=== PATIENT | female | born 1940 | race Caucasian/White ===

== ENCOUNTER 2017-07-03 13:00 | Outpatient (RCR) | payer MEDICARE, SELFPAY ==
[2017-06-12 16:20] VITALS: BP 160/92; PULSE 90; RESP 18; TEMP 36.6; BMI 22.4
--- NOTE | 2017-06-12 17:34 | PCM.WC.HP ---
(1) Cellulitis of left lower extremity Status: Acute Current Visit: Yes Code(s): L03.116 - Cellulitis of left lower limb (2) Nonhealing ulcer of left lower extremity with fat layer exposed Status: Acute Current Visit: Yes Code(s): L97.922 - Non-pressure chronic ulcer of unspecified part of left lower leg with fat layer exposed (3) Lymphedema Status: Acute Current Visit: Yes Code(s): I89.0 - Lymphedema, not elsewhere classified (4) Hypertension Status: Chronic Current Visit: Yes Code(s): I10 - Essential (primary) hypertension (5) PVD (peripheral vascular disease) Status: Chronic Current Visit: Yes Code(s): I73.9 - Peripheral vascular disease, unspecified History of Present Illness Date of Service: 06/12/17 Chief Complaint: Nonhealing ulcer left lower extremity. History of Wound: This is a 77-year-old white female who presents to the wound center today for an evaluation of an ulcer of the left lower extremity. She has a past medical history which is significant for hypertension vertigo and peripheral vascular disease. The patient states that her symptom of lower extremity ulceration on the left extremity started approximately 05/15/2017 and has been progressively worsening since then. She states that she saw her PCP who placed her in an LAVELL boot, which she no longer uses. She states that there has been foul-smelling and purulent drainage from the ulceration and that the site is red and tender. She denies being placed on any antibiotics. The pain is a 10 out of 10 with manipulation of the lower extremity. She does state that she has compression stockings for the bilateral lower extremities, however due to the pain has not been utilizing on the left lower extremity. She denies any obvious injury. She denies any systemic signs of infection. She otherwise denies any fever, chills, nausea, vomiting, shortness of breath, chest pain or pressure, syncope or presyncopal episodes. Past Medical History Past Medical History: Chronic Problems Hypertension (Chronic) PVD (peripheral vascular disease) (Chronic) Surgical History: no surgical history Allergies/Adverse Reactions: Allergies aspirin [ASA] Adverse Reaction (Verified 06/12/17 16:23) Itching latex Adverse Reaction (Verified 06/12/17 16:23) Itching Home Medications: Ambulatory Orders Medication Instructions Recorded Hydrochlorothiazide [Hctz] 12.5 mg PO DAILY 06/12/17 Meclizine HCl 25 mg PO 06/12/17 Metoprolol Succinate/Hctz 06/12/17 [Metoprolol ER-Hctz 25-12.5 mg] Lives: Alone - Family able to help assist with care Smoking Status: Never smoker Review of Systems Constitutional: Denies: Chills, Fever, Weight Change Eyes: Denies: Pain, Vision Change HEENT: Denies: Difficulty Hearing, Difficulty Swallowing, Sinus Congestion Cardiovascular: Denies: Chest Pain, Palpitations Respiratory: Denies: Cough, Shortness of Breath Gastrointestinal: Denies: Diarrhea, Nausea, Vomiting Genitourinary: Denies: Dysuria, Hematuria Skin: Reports: Wounds - See above HPI Endocrine: Denies: Heat/ Cold Intolerance, Polydipsia, Polyuria Hematologic/ Lymphatic: Denies: Easy Bruising, Easy Bleeding Subjective: Subjective pain left lower extremity Objective: Patient examined at bedside in no acute distress - Physical Exam Vital Signs Temp Pulse Resp BP 97.8 F 90 18 160/92 H 06/12/17 16:20 06/12/17 16:20 06/12/17 16:20 06/12/17 16:20 General: Alert, Oriented x3, Cooperative, No apparent distress HEENT: PERRLA, EOMI Oral: Moist Mucosa Neck: Supple, No JVD, Negative Carotid Bruits Lungs: Clear to auscultation Cardiovascular: Regular rate, Regular Rhythm, Normal S1, Normal S2, No murmurs Extremities: Capillary Refill Less than 3 Seconds, Edema - 1+ nonpitting edema left lower extremity, generalized edema right lower extremity, palpable pulses bilaterally though diminished extravasation and hemosiderin staining present bilaterally Skin: Ulcer/ Wound - Nonpressure ulcer of left lower extremity present lateral lower leg with purulent drainage and eschar present. Site is warm and reddened and tender to touch, redness outlined in permanent marker, foul-smelling Wound Measurements and Assessment - Nurse 1 - General Ulcer Measurement Start: 06/12/17 13:51 Freq: Status: Active Protocol: Activity Type Activity Date Activity User E-Sign Co-Sign Detail Recorded Client Recorded Date Recorded By Document 06/12/17 16:20 TM [id number] 06/12/17 16:45 TM 06/12/17 16:20 Wound Center Nurse 1 [Ulcer Assessment Protocol: WC.WD.LOC] #1 left lateral LE -Combined with other wound No -Current Size (cm) - Length 3.4 -Current Size (cm) - Width 2.1 -Current Size (cm) - Depth 0.2 -Total Square Cm 7.14 -Date of Last Picture (Recall this 06/12/17 field) -Photo Taken Yes -Epithelialization None Present -Tunneling No -Undermining/Tunneling No -Circular Undermining No -Classification - Thickness Full Thickness without Exposed Support Structure -Exudate Amt Large (67-100%) -Exudate Type Serosanguineous -Wound Margin Distinct, Outline Attached -Granulation Amt Small (1-33%) -Granulation Quality [place] -Slough/Fibrin Yes -Necrosis Amt Large (67-100%) -Necrotic Tissue Type Adherent Slough -Structure Exposed Fascia Fat Layer Exposed -Texture (Kajal-wound Skin Appearance) Friable Localized Edema Scarring -Moisture (Kajal-wound Skin Appearance No Abnormality ) -Color (Kajal-wound Skin Appearance) Erythema Hemosiderin Staining -Temperature (Kajal-wound Skin Hot Appearance) -Tenderness on Palpation (Kajal-wound Yes Skin Appearance) -Ulcer Cleansing cynthia hex -Foul Odor after Cleansing No -Anesthetic Used 5% Lidocaine Gel [Edema Assessment] -Lower Limb Edema Present Yes -Right Calf (cm) 30.0 -Right Ankle (cm) 20.5 -Left Calf (cm) 30.5 -Left Ankle (cm) 22.5 Musculoskeletal: No Tenderness to Palpation of Joints or Extremities Neurological: Cranial nerves II-XII grossly intact Psych/Mental Status: Normal Affect, Appropriate, Alert and oriented to time, place, person, mood and affect Debridement Note No debridement was completed today Assessment/Plan Active Problems Nonhealing ulcer of left lower extremity with fat layer exposed (Acute) Lymphedema (Acute) Hypertension (Chronic) PVD (peripheral vascular disease) (Chronic) Cellulitis of left lower extremity (Acute) Plan: The patient does have cellulitis with a nonhealing ulcer of the left lower extremity as described above. We will treat the patient with Bactrim DS to cover for potential MRSA, educated on its use and potential side effects. Blood work ordered and anaerobic and aerobic cultures ordered as well. Discussed with patient not to use compression on the left lower extremity. Educated patient on red flag symptoms of worsening cellulitis that would require urgent medical attention and potential inpatient hospitalization for antibiotics. Patient and family verbalized understanding of this. No debridement done today due to unknown vascular status. Will check vascular studies. Santyl and Hibiclens ordered daily for the patient and patient instructed on its use. Discussed with patient maximizing oral nutrition to promote wound healing which includes incorporating protein vitamin C into the diet. The patient and family as concerned about home health, will look into insurance coverage for home health. This note was generated with [employer] dictation software. It may contain incorrect words, spelling, and punctuation that were not noted in checking the note before signing.
[2017-06-12 19:40] LABS: Absolute Lymphocyte Count 0.93 X10^3/ul (0.83-4.51); Absolute Neutrophil Count 6.9 X10^3/uL (2.0-7.7); Basophil# 0.02 X10^3/uL; Basophil% 0.2 % (0-1); Eosinophil# 0.05 X10^3/uL; Eosinophils% 0.6 % (0-5); Hematocrit 41.5 % (37-47); Hemoglobin 13.8 g/dl (12.0-15.0); Lymphocyte # 0.93 X10^3/ul (4.0); Lymphocyte % 10.2 % (19-41); Mean Corp Hgb Conc 33.3 g/gl (32-36); Mean Corpuscular Hgb 28.9 pg (27.0-32.0); Mean Platelet Vol. 9.3 fl (6.2-12.0); Monocyte# 1.17 X10^3/uL; Monocyte% 12.9 % (0-10); Platelet Count 382 K/mm3 (150-450); RBC Distribution Width CV 12.7 % (11.6-14.6); RBC Distribution Width SD 39.6 fl (35.1-43.9); Red Blood Count 4.77 M/mm3 (4.2-5.4); White Blood Count 9.1 K/mm3 (4.4-11.0)
[2017-06-12 19:58] LABS: POSITIVE COUNT NO; POSITIVE DIFFERENTIAL NO; POSITIVE MORPHOLOGY NO
[2017-06-12 20:10] LABS: Erythrocyte Sedimentation Rate 19 mm/hr (0-30)
[2017-06-12 20:22] LABS: BUN 8 mg/dL (7-18); Glucose 98 mg/dL (70-110)
[2017-06-12 20:23] LABS: AST(SGOT) 21 U/L (15-37); Alanine Aminotransfer ALT/SGPT 22 U/L (12-78); Albumin, Serum 3.5 g/dL (3.4-5.0); Alkaline Phosphatase 97 U/L (45-117); Creatinine, Serum 0.56 mg/dL (0.55-1.02); Globulin 4.3 g/dL (2.2-4.2); Potassium 3.8 mmol/L (3.5-5.1); Protein, Total 7.8 g/dL (6.4-8.2); Sodium Level 133 mmol/L (136-145)
[2017-06-12 20:24] LABS: Anion Gap 7 (5-15); Chloride 96 mmol/L (98-107)
[2017-06-12 20:43] LABS: ALB/GLOB Ratio 0.8 RATIO (0.9-2.4); BUN/Creat Ratio 14.4 RATIO (10-20); EST Glomerular Filtration Rate 113 mL/min (>60); Est Glom Filt Rate - Afr Amer 137 mL/min (>60); Prealbumin 15.9 mg/dL (20.0-40.0)
[2017-06-19 12:51] VITALS: BP 149/86; PULSE 72; RESP 16; TEMP 35.9; BMI 22.4
--- NOTE | 2017-06-19 17:11 | PN.PCM_ITS ---
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 History of Wound: This is a 77-year-old white female who presents to the wound center today for follow-up of an ulcer of the left lower extremity and cellulitis. She has a past medical history which is significant for hypertension vertigo and peripheral vascular disease. The patient states that her symptom of lower extremity ulceration on the left extremity started approximately 05/15/2017 . She states that she saw her PCP who placed her in an LAVELL boot, which she no longer uses. She states that the smell has improved, the redness is resolving, and the pain is improving as well. She denies any systemic signs of infection. She otherwise denies any fever, chills, nausea, vomiting, shortness of breath, chest pain or pressure, syncope or presyncopal episodes. Progress of Wound: The patient's cellulitis is improving, stable, Santyl is working well in the eschar has resolved and now there is only devitalized tissue and slough present. Patient is still having a significant amount of pain , however this has improved since previous visit. - Physical Exam Vital Signs Temp Pulse Resp BP 96.6 F L 72 16 149/86 H 06/19/17 12:51 06/19/17 12:51 06/19/17 12:51 06/19/17 12:51 General: Alert, Oriented x3, Cooperative, No apparent distress Cardiovascular: Regular rate Extremities: No clubbing, No cyanosis, No edema, Capillary Refill Less than 3 Seconds Skin: Ulcer/ Wound - Erythema improving, wound still has a foul smell, eschar is resolved, significant amount of devitalized slough present, no purulent drainage. There is extravasation and hyperpigmentation noted surrounding the wound as well. Wound Measurements and Assessment - Nurse 1 - General Ulcer Measurement Start: 06/12/17 13:51 Freq: Status: Active Protocol: Activity Type Activity Date Activity User E-Sign Co-Sign Detail Recorded Client Recorded Date Recorded By Document 06/19/17 12:51 [facility] [id number] 06/19/17 13:00 BM 06/19/17 12:51 Wound Center Nurse 1 [Ulcer Assessment Protocol: JACK.WD.LOC] #1 left lateral LE -Combined with other wound No -Current Size (cm) - Length 4.6 -Current Size (cm) - Width 2.5 -Current Size (cm) - Depth 0.1 -Total Square Cm 11.50 -Photo Taken No -Epithelialization None Present -Tunneling No -Undermining/Tunneling No -Exudate Amt Medium (34-66%) -Exudate Type Serosanguineous -Wound Margin Distinct, Outline Attached -Granulation Amt Small (1-33%) -Granulation Quality Red -Slough/Fibrin Yes -Necrosis Amt Large (67-100%) -Necrotic Tissue Type Adherent Slough -Structure Exposed N/A -Texture (Kajal-wound Skin Appearance) Scarring -Moisture (Kajal-wound Skin Appearance Dry/Scaly ) -Color (Kajal-wound Skin Appearance) Erythema Hemosiderin Staining -Temperature (Kajal-wound Skin No Abnormality Appearance) (Pt Warm) -Tenderness on Palpation (Kajal-wound Yes Skin Appearance) -Ulcer Cleansing Rinsed/ Irrigated with Saline -Foul Odor after Cleansing No -Anesthetic Used 5% Lidocaine Gel [Edema Assessment] -Lower Limb Edema Present Yes -Left Calf (cm) 31.5 -Left Ankle (cm) 22.1 - Nurse 2 - General Ulcer CM Notes Start: 06/12/17 13:51 Freq: Status: Active Protocol: Activity Type Activity Date Activity User E-Sign Co-Sign Detail Recorded Client Recorded Date Recorded By Document 06/19/17 14:02 DV [id number] 06/19/17 14:09 DV 06/19/17 14:02 Wound Center Nurse 2 [Procedure/Treatment] #1 left lateral LE -Time 14:03 -Correct Patient Yes -Correct Side, Site, Position Yes -Correct Procedure Yes -Procedure Performed Yes -Type of Procedure Debridement -Clinical Debridement Subcutaneous -Post Debridement Size (cm) - Length 4.3 -Post Debridement Size (cm) - Width 2.4 -Post Debridement Size (cm) - Depth 0.2 -Total Square Cm 10.32 -Wound/Ulcer Outcome Not Healed -Ulcer Cleansing Rinsed/ Irrigated with Saline -Foul Odor after Cleansing No -Bioengineered Tissue No -Cetacaine [place] No -Bleeding Controlled with Pressure -Treatment Response Procedure Tolerated Well [See Physician Procedure note for Specifics] Pain Scale: 0-10 Numeric [Pain] -Is Patient Pain Free? Yes Musculoskeletal: No Tenderness to Palpation of Joints or Extremities Psych/Mental Status: Normal Affect, Appropriate, Alert and oriented to time, place, person, mood and affect Debridement Note Post-Debridement Measurements/Treatment WC - Nurse 2 - General Ulcer CM Notes Start: 06/12/17 13:51 Freq: Status: Active Protocol: Activity Type Activity Date Activity User E-Sign Co-Sign Detail Recorded Client Recorded Date Recorded By Document 06/12/17 17:52 DV [id number] 06/12/17 17:57 DV Document 06/19/17 14:02 DV [id number] 06/19/17 14:09 DV 06/12/17 06/19/17 17:52 14:02 Wound Center Nurse 2 #1 left lateral LE -Time 17:55 14:03 -Correct Patient Yes Yes -Correct Side, Site, Position Yes Yes -Correct Procedure Yes Yes -Procedure Performed No Yes -Type of Procedure Debridement -Clinical Debridement Subcutaneous -Post Debridement Size (cm) - Length 4.3 -Post Debridement Size (cm) - Width 2.4 -Post Debridement Size (cm) - Depth 0.2 -Total Square Cm 10.32 -Wound/Ulcer Outcome Not Healed Not Healed -Ulcer Cleansing Rinsed/ Rinsed/ Irrigated with Irrigated with Saline Saline -Foul Odor after Cleansing No No -Bioengineered Tissue No No -Cetacaine [place] No No -Bleeding Controlled with NA Pressure -Treatment Response Procedure Tolerated Well Pain Scale: 0-10 Numeric Is Patient Pain Free? No Yes Lateral LLE -Description Sharp Crushing -Intensity 10 -Duration (hours) Acute -Pain Behavior Moaning Irritability Facial Grimacing VS Changes -Pain Aggravating Factors ADL's Stair Climbing Changing Position Exercise/ Activity Standing Sitting Walking -Alleviating Factors/Interventions None -Effectiveness of Alleviating Factor/ Not effective Intervention -Comments Patient will be treated for infection with ATB and C. Santyl with debridement to follow next week Wound debrided: Left lower extremity ulcer Laterality: Left Type of Debridement: Excisional debridement Anesthesia Used: 4% Lidocaine Solution Depth: in the subcutaneous layer Percentage of wound debrided: 100 Instrument Used: 5mm curette Tissue Removed: Moderate amount of slough and fibrin and devitalized tissue removed, Severity: Fat Layer Exposed Amount of bleeding with debridement: Mild Bleeding Controlled with: Pressure Patient tolerated procedure well Assessment/Plan Active Problems Nonhealing ulcer of left lower extremity with fat layer exposed (Acute) Lymphedema (Acute) Hypertension (Chronic) PVD (peripheral vascular disease) (Chronic) Cellulitis of left lower extremity (Acute) Plan: I evaluated the patient and discussed the ongoing care plan. The patient does have cellulitis with a nonhealing ulcer of the left lower extremity as described above. A culture and sensitivity was done which showed staph and was susceptible to the Bactrim DS which she has completed. Anaerobic cocci was cultured as well, therefore the patient will be treated with Flagyl 3 times daily for 7 days. The patient's cellulitis is improving. However is not completely resolved. Wound was debrided today patient tolerated well. Start Flagyl, educated on its use and potential side effects. Blood work reviewed with patient, pre-albumin was low, discussed increasing her protein intake and drinking premier protein drinks 3 a day, may recheck in the future and if still low possible referral to nutrition therapy.. Discussed with patient not to use compression on the left lower extremity due to unknown vascular status and current infection. Educated patient on red flag symptoms of worsening cellulitis that would require urgent medical attention and potential inpatient hospitalization for antibiotics. Patient and family verbalized understanding of this. Pending vascular studies. Santyl and Hibiclens ordered daily for the patient and patient instructed on its use. Discussed with patient maximizing oral nutrition to promote wound healing which includes incorporating protein vitamin C into the diet. Due to the fact that the patient is not homebound, home health is unlikely for this patient. This note was generated with [employer] software. It may contain incorrect words, spelling, and punctuation that were not noted in checking the note before signing.
[2017-06-26 13:07] VITALS: BP 141/90; PULSE 81; RESP 18; TEMP 35.9; BMI 22.4
--- NOTE | 2017-06-26 14:13 | PCM.WC.PN ---
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 History of Wound: This is a 77-year-old white female who presents to the wound center today for follow-up of an ulcer of the left lower extremity and cellulitis. She has a past medical history which is significant for hypertension vertigo and peripheral vascular disease. The patient states that her symptom of lower extremity ulceration on the left extremity started approximately 05/15/2017 . She states that she saw her PCP who placed her in an LAVELL boot, which she no longer uses. She states that the smell has improved, the redness is resolving, and the pain is improving as well. She denies any systemic signs of infection. She otherwise denies any fever, chills, nausea, vomiting, shortness of breath, chest pain or pressure, syncope or presyncopal episodes. Progress of Wound: The patient's cellulitis is improving, stable, pain has improved since previous visit. Wound improving - Physical Exam Vital Signs Temp Pulse Resp BP 96.6 F L 81 18 141/90 H 06/26/17 13:07 06/26/17 13:07 06/26/17 13:07 06/26/17 13:07 General: Alert, Oriented x3, Cooperative, No apparent distress Cardiovascular: Regular rate Extremities: No clubbing, No cyanosis, Diminished Peripheral Pulses, Edema - gneralized LLE, Tenderness Skin: Ulcer/ Wound - Left lower extremity ulcer present with moderate amount of slough covering surface, surrounding cellulitis improving still some erythema and extravasation present surrounding the wound, surrounding tissue no longer tender to touch Wound Measurements and Assessment - Nurse 1 - General Ulcer Measurement Start: 06/12/17 13:51 Freq: Status: Active Protocol: Activity Type Activity Date Activity User E-Sign Co-Sign Detail Recorded Client Recorded Date Recorded By Document 06/26/17 13:07 [facility] [id number] 06/26/17 13:18 [facility] 06/26/17 13:07 Wound Center Nurse 1 [Ulcer Assessment Protocol: JACK.NICK.LOC] #1 left lateral LE -Combined with other wound No -Current Size (cm) - Length 4.8 -Current Size (cm) - Width 2.5 -Current Size (cm) - Depth 0.1 -Total Square Cm 12.00 -Photo Taken No -Tunneling No -Undermining/Tunneling No -Circular Undermining No -Exudate Amt Medium (34-66%) -Exudate Type Serosanguineous -Wound Margin Distinct, Outline Attached -Granulation Amt Small (1-33%) -Granulation Quality Red -Slough/Fibrin Yes -Necrosis Amt Large (67-100%) -Necrotic Tissue Type Adherent Slough -Structure Exposed None/Limited to Skin Breakdown -Texture (Kajal-wound Skin Appearance) Scarring -Moisture (Kajal-wound Skin Appearance Dry/Scaly ) -Color (Kajal-wound Skin Appearance) Hemosiderin Staining -Temperature (Kajal-wound Skin No Abnormality Appearance) (Pt Warm) -Tenderness on Palpation (Kajal-wound Yes Skin Appearance) -Ulcer Cleansing Rinsed/ Irrigated with Saline -Foul Odor after Cleansing No -Anesthetic Used 5% Lidocaine Gel JACK - Nurse 2 - General Ulcer CM Notes Start: 06/12/17 13:51 Freq: Status: Active Protocol: Activity Type Activity Date Activity User E-Sign Co-Sign Detail Recorded Client Recorded Date Recorded By Document 06/26/17 14:05 DV [id number] 06/26/17 14:09 DV 06/26/17 14:05 Wound Center Nurse 2 [Procedure/Treatment] -Time 14:07 -Correct Patient Yes -Correct Side, Site, Position Yes -Correct Procedure Yes -Procedure Performed Yes -Type of Procedure Debridement -Clinical Debridement Muscle -Post Debridement Size (cm) - Length 4.8 -Post Debridement Size (cm) - Width 2.9 -Post Debridement Size (cm) - Depth 0.2 -Total Square Cm 13.92 -Wound/Ulcer Outcome Not Healed -Ulcer Cleansing Rinsed/ Irrigated with Saline -Foul Odor after Cleansing No -Bioengineered Tissue No -Cetacaine [place] No -Bleeding Controlled with Pressure -Treatment Response Procedure Tolerated Well [See Physician Procedure note for Specifics] Pain Scale: 0-10 Numeric [Pain] -Is Patient Pain Free? Yes Psych/Mental Status: Anxious, Alert and oriented to time, place, person, mood and affect Debridement Note Post-Debridement Measurements/Treatment WC - Nurse 2 - General Ulcer CM Notes Start: 06/12/17 13:51 Freq: Status: Active Protocol: Activity Type Activity Date Activity User E-Sign Co-Sign Detail Recorded Client Recorded Date Recorded By Document 06/12/17 17:52 DV [id number] 06/12/17 17:57 DV Document 06/19/17 14:02 DV [id number] 06/19/17 14:09 DV Document 06/26/17 14:05 DV [id number] 06/26/17 14:09 DV 06/12/17 06/19/17 06/26/17 17:52 14:02 14:05 Wound Center Nurse 2 #1 left lateral LE -Time 17:55 14:03 14:07 -Correct Patient Yes Yes Yes -Correct Side, Site, Position Yes Yes Yes -Correct Procedure Yes Yes Yes -Procedure Performed No Yes Yes -Type of Procedure Debridement Debridement -Clinical Debridement Subcutaneous Muscle -Post Debridement Size (cm) - Length 4.3 4.8 -Post Debridement Size (cm) - Width 2.4 2.9 -Post Debridement Size (cm) - Depth 0.2 0.2 -Total Square Cm 10.32 13.92 -Wound/Ulcer Outcome Not Healed Not Healed Not Healed -Ulcer Cleansing Rinsed/ Rinsed/ Rinsed/ Irrigated with Irrigated with Irrigated with Saline Saline Saline -Foul Odor after Cleansing No No No -Bioengineered Tissue No No No -Cetacaine [place] No No No -Bleeding Controlled with NA Pressure Pressure -Treatment Response Procedure Procedure Tolerated Well Tolerated Well Pain Scale: 0-10 Numeric Is Patient Pain Free? No Yes Yes Lateral LLE -Description Sharp Crushing -Intensity 10 -Duration (hours) Acute -Pain Behavior Moaning Irritability Facial Grimacing VS Changes -Pain Aggravating Factors ADL's Stair Climbing Changing Position Exercise/ Activity Standing Sitting Walking -Alleviating Factors/Interventions None -Effectiveness of Alleviating Factor/ Not effective Intervention -Comments Patient will be treated for infection with ATB and Airam Barrett with debridement to follow next week Wound debrided: Left lower extremity nonhealing ulcer Laterality: Left Type of Debridement: Excisional debridement Anesthesia Used: 4% Lidocaine Solution, 5% Lidocaine Gel, - - 5 mL's lidocaine injection Depth: in the subcutaneous layer, to muscle Percentage of wound debrided: 100 Instrument Used: 7mm curette Severity: Fat Layer Exposed - Muscle exposed Amount of bleeding with debridement: Mild Bleeding Controlled with: Pressure Patient tolerated procedure well Assessment/Plan Active Problems Nonhealing ulcer of left lower extremity with fat layer exposed (Acute) Lymphedema (Acute) Hypertension (Chronic) PVD (peripheral vascular disease) (Chronic) Cellulitis of left lower extremity (Acute) Plan: I evaluated the patient and discussed the ongoing care plan. The patient does have cellulitis which is improving with a nonhealing ulcer of the left lower extremity as described above. A culture and sensitivity was done which showed staph and was susceptible to the Bactrim DS which she has completed. Anaerobic cocci was cultured as well, therefore the patient was treated with Flagyl. The patient's cellulitis is improving. However is not completely resolved. Wound was debrided to the muscle fascia sufficiently today for the first time after the patient was anesthetized locally with lidocaine, tolerated well. Repeat cultures done as wound is progressing slowly and blood work reviewed with patient, pre-albumin was low, discussed increasing her protein intake and drinking premier protein drinks 3 a day, may recheck in the future and if still low possible referral to nutrition therapy. Discussed with patient not to use compression on the left lower extremity due to unknown vascular status and current infection. Educated patient on red flag symptoms of worsening cellulitis that would require urgent medical attention and potential inpatient hospitalization for antibiotics. Patient and family verbalized understanding of this. Pending vascular studies. Discussed with patient maximizing oral nutrition to promote wound healing which includes incorporating protein vitamin C into the diet. Due to the fact that the patient is not homebound, home health is unlikely for this patient. We will start the process of applying for advance skin substitute as this will be a likely intervention in the future due to delayed progression of wound. This note was generated with [employer] software. It may contain incorrect words, spelling, and punctuation that were not noted in checking the note before signing. Code Visit 111xxx-113xx: [id number] Kaley musc/fascia 20 sq cm/<
--- NOTE | 2017-06-26 14:16 | PN.PCM_ITS ---
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 History of Wound: This is a 77-year-old white female who presents to the wound center today for follow-up of an ulcer of the left lower extremity and cellulitis. She has a past medical history which is significant for hypertension vertigo and peripheral vascular disease. The patient states that her symptom of lower extremity ulceration on the left extremity started approximately 05/15/2017 . She states that she saw her PCP who placed her in an LAVELL boot, which she no longer uses. She states that the smell has improved, the redness is resolving, and the pain is improving as well. She denies any systemic signs of infection. She otherwise denies any fever, chills, nausea, vomiting, shortness of breath, chest pain or pressure, syncope or presyncopal episodes. Progress of Wound: The patient's cellulitis is improving, stable, pain has improved since previous visit. Wound improving - Physical Exam Vital Signs Temp Pulse Resp BP 96.6 F L 81 18 141/90 H 06/26/17 13:07 06/26/17 13:07 06/26/17 13:07 06/26/17 13:07 General: Alert, Oriented x3, Cooperative, No apparent distress Cardiovascular: Regular rate Extremities: No clubbing, No cyanosis, Diminished Peripheral Pulses, Edema - gneralized LLE, Tenderness Skin: Ulcer/ Wound - Left lower extremity ulcer present with moderate amount of slough covering surface, surrounding cellulitis improving still some erythema and extravasation present surrounding the wound, surrounding tissue no longer tender to touch Wound Measurements and Assessment - Nurse 1 - General Ulcer Measurement Start: 06/12/17 13:51 Freq: Status: Active Protocol: Activity Type Activity Date Activity User E-Sign Co-Sign Detail Recorded Client Recorded Date Recorded By Document 06/26/17 13:07 [facility] [id number] 06/26/17 13:18 [facility] 06/26/17 13:07 Wound Center Nurse 1 [Ulcer Assessment Protocol: JACK.NICK.LOC] #1 left lateral LE -Combined with other wound No -Current Size (cm) - Length 4.8 -Current Size (cm) - Width 2.5 -Current Size (cm) - Depth 0.1 -Total Square Cm 12.00 -Photo Taken No -Tunneling No -Undermining/Tunneling No -Circular Undermining No -Exudate Amt Medium (34-66%) -Exudate Type Serosanguineous -Wound Margin Distinct, Outline Attached -Granulation Amt Small (1-33%) -Granulation Quality Red -Slough/Fibrin Yes -Necrosis Amt Large (67-100%) -Necrotic Tissue Type Adherent Slough -Structure Exposed None/Limited to Skin Breakdown -Texture (Kajal-wound Skin Appearance) Scarring -Moisture (Kajal-wound Skin Appearance Dry/Scaly ) -Color (Kajal-wound Skin Appearance) Hemosiderin Staining -Temperature (Kajal-wound Skin No Abnormality Appearance) (Pt Warm) -Tenderness on Palpation (Kajal-wound Yes Skin Appearance) -Ulcer Cleansing Rinsed/ Irrigated with Saline -Foul Odor after Cleansing No -Anesthetic Used 5% Lidocaine Gel JACK - Nurse 2 - General Ulcer CM Notes Start: 06/12/17 13:51 Freq: Status: Active Protocol: Activity Type Activity Date Activity User E-Sign Co-Sign Detail Recorded Client Recorded Date Recorded By Document 06/26/17 14:05 DV [id number] 06/26/17 14:09 DV 06/26/17 14:05 Wound Center Nurse 2 [Procedure/Treatment] -Time 14:07 -Correct Patient Yes -Correct Side, Site, Position Yes -Correct Procedure Yes -Procedure Performed Yes -Type of Procedure Debridement -Clinical Debridement Muscle -Post Debridement Size (cm) - Length 4.8 -Post Debridement Size (cm) - Width 2.9 -Post Debridement Size (cm) - Depth 0.2 -Total Square Cm 13.92 -Wound/Ulcer Outcome Not Healed -Ulcer Cleansing Rinsed/ Irrigated with Saline -Foul Odor after Cleansing No -Bioengineered Tissue No -Cetacaine [place] No -Bleeding Controlled with Pressure -Treatment Response Procedure Tolerated Well [See Physician Procedure note for Specifics] Pain Scale: 0-10 Numeric [Pain] -Is Patient Pain Free? Yes Psych/Mental Status: Anxious, Alert and oriented to time, place, person, mood and affect Debridement Note Post-Debridement Measurements/Treatment WC - Nurse 2 - General Ulcer CM Notes Start: 06/12/17 13:51 Freq: Status: Active Protocol: Activity Type Activity Date Activity User E-Sign Co-Sign Detail Recorded Client Recorded Date Recorded By Document 06/12/17 17:52 DV [id number] 06/12/17 17:57 DV Document 06/19/17 14:02 DV [id number] 06/19/17 14:09 DV Document 06/26/17 14:05 DV [id number] 06/26/17 14:09 DV 06/12/17 06/19/17 06/26/17 17:52 14:02 14:05 Wound Center Nurse 2 #1 left lateral LE -Time 17:55 14:03 14:07 -Correct Patient Yes Yes Yes -Correct Side, Site, Position Yes Yes Yes -Correct Procedure Yes Yes Yes -Procedure Performed No Yes Yes -Type of Procedure Debridement Debridement -Clinical Debridement Subcutaneous Muscle -Post Debridement Size (cm) - Length 4.3 4.8 -Post Debridement Size (cm) - Width 2.4 2.9 -Post Debridement Size (cm) - Depth 0.2 0.2 -Total Square Cm 10.32 13.92 -Wound/Ulcer Outcome Not Healed Not Healed Not Healed -Ulcer Cleansing Rinsed/ Rinsed/ Rinsed/ Irrigated with Irrigated with Irrigated with Saline Saline Saline -Foul Odor after Cleansing No No No -Bioengineered Tissue No No No -Cetacaine [place] No No No -Bleeding Controlled with NA Pressure Pressure -Treatment Response Procedure Procedure Tolerated Well Tolerated Well Pain Scale: 0-10 Numeric Is Patient Pain Free? No Yes Yes Lateral LLE -Description Sharp Crushing -Intensity 10 -Duration (hours) Acute -Pain Behavior Moaning Irritability Facial Grimacing VS Changes -Pain Aggravating Factors ADL's Stair Climbing Changing Position Exercise/ Activity Standing Sitting Walking -Alleviating Factors/Interventions None -Effectiveness of Alleviating Factor/ Not effective Intervention -Comments Patient will be treated for infection with ATB and Airam Barrett with debridement to follow next week Wound debrided: Left lower extremity nonhealing ulcer Laterality: Left Type of Debridement: Excisional debridement Anesthesia Used: 4% Lidocaine Solution, 5% Lidocaine Gel, - - 5 mL's lidocaine injection Depth: in the subcutaneous layer, to muscle Percentage of wound debrided: 100 Instrument Used: 7mm curette Severity: Fat Layer Exposed - Muscle exposed Amount of bleeding with debridement: Mild Bleeding Controlled with: Pressure Patient tolerated procedure well Assessment/Plan Active Problems Nonhealing ulcer of left lower extremity with fat layer exposed (Acute) Lymphedema (Acute) Hypertension (Chronic) PVD (peripheral vascular disease) (Chronic) Cellulitis of left lower extremity (Acute) Plan: I evaluated the patient and discussed the ongoing care plan. The patient does have cellulitis which is improving with a nonhealing ulcer of the left lower extremity as described above. A culture and sensitivity was done which showed staph and was susceptible to the Bactrim DS which she has completed. Anaerobic cocci was cultured as well, therefore the patient was treated with Flagyl. The patient's cellulitis is improving. However is not completely resolved. Wound was debrided to the muscle fascia sufficiently today for the first time after the patient was anesthetized locally with lidocaine, tolerated well. Repeat cultures done as wound is progressing slowly and blood work reviewed with patient, pre-albumin was low, discussed increasing her protein intake and drinking premier protein drinks 3 a day, may recheck in the future and if still low possible referral to nutrition therapy. Discussed with patient not to use compression on the left lower extremity due to unknown vascular status and current infection. Educated patient on red flag symptoms of worsening cellulitis that would require urgent medical attention and potential inpatient hospitalization for antibiotics. Patient and family verbalized understanding of this. Pending vascular studies. Discussed with patient maximizing oral nutrition to promote wound healing which includes incorporating protein vitamin C into the diet. Due to the fact that the patient is not homebound, home health is unlikely for this patient. We will start the process of applying for advance skin substitute as this will be a likely intervention in the future due to delayed progression of wound. This note was generated with [employer] software. It may contain incorrect words, spelling, and punctuation that were not noted in checking the note before signing. Code Visit 111xxx-113xx: [id number] Kaley musc/fascia 20 sq cm/<
[2017-07-03 13:12] VITALS: BP 148/91; PULSE 98; RESP 22; TEMP 35.8; BMI 22.4
--- NOTE | 2017-07-03 15:33 | WC ---
HARRISON SCREEN RIGHT BRACHIA B/P: 146 LEFT BRACHIA B/P: 122 DORSALIS PEDIS: 164 DORSALIS PEDIS: 194 POSTERIOR TIBIALIS: 168 POSTERIOR TIBIALIS: 180 HARRISON: 1.15 HARRISON: 1.32
--- NOTE | 2017-07-04 08:58 | PCM.WC.PN ---
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 History of Wound: This is a 77-year-old white female who presents to the wound center today for follow-up of an ulcer of the left lower extremity and cellulitis. She has a past medical history which is significant for hypertension vertigo and peripheral vascular disease. The patient states that her symptom of lower extremity ulceration on the left extremity started approximately 05/15/2017 . She states that she saw her PCP who placed her in an LAVELL boot, which she no longer uses. She states that the smell has improved, the redness is resolving, and the pain is improving as well. She denies any systemic signs of infection. She otherwise denies any fever, chills, nausea, vomiting, shortness of breath, chest pain or pressure, syncope or presyncopal episodes. Progress of Wound: The patient's cellulitis has deteriorated though not past the initial margins that were outlined, stable, pain has improved since previous visit. Wound slowly improving - Physical Exam Vital Signs Temp Pulse Resp BP 96.5 F L 98 22 H 148/91 H 07/03/17 13:12 07/03/17 13:12 07/03/17 13:12 07/03/17 13:12 General: Alert, Oriented x3, Cooperative, No apparent distress Cardiovascular: Regular rate Extremities: No clubbing, No cyanosis, Edema - Generalized edema left lower extremity Skin: Ulcer/ Wound - Cellulitis surrounding left lower extremity ulceration, suspect venous leg ulcer as ABIs done and normal, consideration is covered in slough and devitalized tissue, painful area around site of ulceration Wound Measurements and Assessment - Nurse 1 - General Ulcer Measurement Start: 06/12/17 13:51 Freq: Status: Active Protocol: Activity Type Activity Date Activity User E-Sign Co-Sign Detail Recorded Client Recorded Date Recorded By Document 07/03/17 13:12 DL [id number] 07/03/17 13:21 DL 07/03/17 13:12 Wound Center Nurse 1 [Ulcer Assessment Protocol: JACK.NICK.LOC] #1 left lateral LE -Current Size (cm) - Length 4.6 -Current Size (cm) - Width 2.8 -Current Size (cm) - Depth 0.2 -Total Square Cm 12.88 -Photo Taken No -Exudate Amt Medium (34-66%) -Exudate Type Serosanguineous -Wound Margin Distinct, Outline Attached -Granulation Amt Small (1-33%) -Granulation Quality Red -Necrosis Amt Large (67-100%) -Necrotic Tissue Type Adherent Slough -Structure Exposed N/A -Texture (Kajal-wound Skin Appearance) Excoriation -Moisture (Kajal-wound Skin Appearance No Abnormality ) -Color (Kajal-wound Skin Appearance) Erythema -Temperature (Kajal-wound Skin No Abnormality Appearance) (Pt Warm) -Ulcer Cleansing Rinsed/ Irrigated with Saline -Foul Odor after Cleansing No -Anesthetic Used 4% Lidocaine Solution [Edema Assessment] -Left Calf (cm) 32.3 -Left Ankle (cm) 22.6 - Nurse 2 - General Ulcer CM Notes Start: 06/12/17 13:51 Freq: Status: Active Protocol: Activity Type Activity Date Activity User E-Sign Co-Sign Detail Recorded Client Recorded Date Recorded By Document 07/03/17 14:21 DV [id number] 07/03/17 14:29 DV 07/03/17 14:21 Wound Center Nurse 2 [Procedure/Treatment] #1 left lateral LE -Time 14:23 -Correct Side, Site, Position Yes -Correct Procedure Yes -Procedure Performed Yes -Type of Procedure Debridement -Clinical Debridement Muscle -Post Debridement Size (cm) - Length 4.9 -Post Debridement Size (cm) - Width 3.1 -Post Debridement Size (cm) - Depth 0.3 -Total Square Cm 15.19 -Wound/Ulcer Outcome Not Healed -Ulcer Cleansing Rinsed/ Irrigated with Saline -Foul Odor after Cleansing No -Bioengineered Tissue No -Cetacaine Crumpler No -Bleeding Controlled with Pressure -Treatment Response Procedure Tolerated Well [See Physician Procedure note for Specifics] Pain Scale: 0-10 Numeric [Pain] -Is Patient Pain Free? Yes Psych/Mental Status: Anxious, Alert and oriented to time, place, person, mood and affect Debridement Note Post-Debridement Measurements/Treatment WC - Nurse 2 - General Ulcer CM Notes Start: 06/12/17 13:51 Freq: Status: Active Protocol: Activity Type Activity Date Activity User E-Sign Co-Sign Detail Recorded Client Recorded Date Recorded By Document 06/12/17 17:52 DV [id number] 06/12/17 17:57 DV Document 06/19/17 14:02 DV [id number] 06/19/17 14:09 DV Document 06/26/17 14:05 DV [id number] 06/26/17 14:09 DV Document 07/03/17 14:21 DV [id number] 07/03/17 14:29 DV 06/12/17 06/19/17 06/26/17 17:52 14:02 14:05 Wound Center Nurse 2 #1 left lateral LE -Time 17:55 14:03 14:07 -Correct Patient Yes Yes Yes -Correct Side, Site, Position Yes Yes Yes -Correct Procedure Yes Yes Yes -Procedure Performed No Yes Yes -Type of Procedure Debridement Debridement -Clinical Debridement Subcutaneous Muscle -Post Debridement Size (cm) - Length 4.3 4.8 -Post Debridement Size (cm) - Width 2.4 2.9 -Post Debridement Size (cm) - Depth 0.2 0.2 -Total Square Cm 10.32 13.92 -Wound/Ulcer Outcome Not Healed Not Healed Not Healed -Ulcer Cleansing Rinsed/ Rinsed/ Rinsed/ Irrigated with Irrigated with Irrigated with Saline Saline Saline -Foul Odor after Cleansing No No No -Bioengineered Tissue No No No -Cetacaine Crumpler No No No -Bleeding Controlled with NA Pressure Pressure -Treatment Response Procedure Procedure Tolerated Well Tolerated Well Pain Scale: 0-10 Numeric Is Patient Pain Free? No Yes Yes Lateral LLE -Description Sharp Crushing -Intensity 10 -Duration (hours) Acute -Pain Behavior Moaning Irritability Facial Grimacing VS Changes -Pain Aggravating Factors ADL's Stair Climbing Changing Position Exercise/ Activity Standing Sitting Walking -Alleviating Factors/Interventions None -Effectiveness of Alleviating Factor/ Not effective Intervention -Comments Patient will be treated for infection with ATB and C. Santyl with debridement to follow next week 07/03/17 14:21 Wound Center Nurse 2 #1 left lateral LE -Time 14:23 -Correct Patient -Correct Side, Site, Position Yes -Correct Procedure Yes -Procedure Performed Yes -Type of Procedure Debridement -Clinical Debridement Muscle -Post Debridement Size (cm) - Length 4.9 -Post Debridement Size (cm) - Width 3.1 -Post Debridement Size (cm) - Depth 0.3 -Total Square Cm 15.19 -Wound/Ulcer Outcome Not Healed -Ulcer Cleansing Rinsed/ Irrigated with Saline -Foul Odor after Cleansing No -Bioengineered Tissue No -Cetacaine Crumpler No -Bleeding Controlled with Pressure -Treatment Response Procedure Tolerated Well Pain Scale: 0-10 Numeric Is Patient Pain Free? Yes Lateral LLE -Description -Intensity -Duration (hours) -Pain Behavior -Pain Aggravating Factors -Alleviating Factors/Interventions -Effectiveness of Alleviating Factor/ Intervention -Comments Wound debrided: Left lower extremity ulceration Laterality: Left Type of Debridement: Excisional debridement Anesthesia Used: 4% Lidocaine Solution, 5% Lidocaine Gel Depth: Down to and including healthy tissue, in the subcutaneous layer, to muscle Percentage of wound debrided: 100 Instrument Used: 5mm curette Tissue Removed: Slough and fibrous tissue Severity: Necrosis of Muscle Amount of bleeding with debridement: Mild Bleeding Controlled with: Pressure Patient tolerated procedure well Assessment/Plan Active Problems Lymphedema (Acute) Hypertension (Chronic) PVD (peripheral vascular disease) (Chronic) Cellulitis of left lower extremity (Acute) Nonhealing ulcer of left lower extremity with necrosis of muscle (Acute) Assessment: Cellulitis has deteriorated since last week though has not spread further than the initial margins drawn, patient did note today that she has been constantly washing the site aggressively up to 3 times a day and that without notifying our office she went back to using Santyl instead of Aquasol that was previously prescribed, she also notes that she initially did not take the Bactrim and Flagyl appropriately and that she only took them when she remember to take them. Ulceration itself is stable however Plan: I evaluated the patient and discussed the ongoing care plan. The patient does have cellulitis which has deteriorated with a nonhealing ulcer of the left lower extremity as described above. A culture and sensitivity was done which showed staph and was susceptible to the Bactrim DS which she did not take appropriately. Anaerobic cocci was cultured as well, therefore the patient was treated with Flagyl which she did not take appropriately. Repeat cultures were done which were negative. However given the fact that the initial antibiotics were taken inappropriately and the fact that the cellulitis has now deteriorated, will treat with Levaquin ?7 days as the staph was susceptible to this and the initial culture. Wound was debrided to the muscle fascia today. Patient tolerated well. Blood work reviewed with patient, pre-albumin was low, discussed increasing her protein intake and drinking premier protein drinks 3 a day, may recheck in the future and if still low possible referral to nutrition therapy. ABIs were done today and demonstrated right HARRISON 1.15 and left HARRISON 1.32. Discussed with patient the importance of taking her antibiotic appropriately and not to scrub the lower extremity ulcer aggressively or wash it aggressively throughout the day. Educated patient on red flag symptoms of worsening cellulitis that would require urgent medical attention and potential inpatient hospitalization for antibiotics. Patient verbalized understanding of this. Pending vascular studies. Discussed with patient maximizing oral nutrition to promote wound healing which includes incorporating protein vitamin C into the diet. Due to the fact that the patient is not homebound, home health is unlikely for this patient. Germaine was applied today with a 3M 2 layer wrap as ABIs were normal. May consider the use of puraply in the future as this will be a likely intervention in the future due to delayed progression of wound. This note was generated with [employer] dictation software. It may contain incorrect words, spelling, and punctuation that were not noted in checking the note before signing. Code Visit 111xxx-113xx: 26752 Kaley musc/fascia 20 sq cm/<
--- NOTE | 2017-07-04 09:10 | PN.PCM_ITS ---
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 History of Wound: This is a 77-year-old white female who presents to the wound center today for follow-up of an ulcer of the left lower extremity and cellulitis. She has a past medical history which is significant for hypertension vertigo and peripheral vascular disease. The patient states that her symptom of lower extremity ulceration on the left extremity started approximately 05/15/2017 . She states that she saw her PCP who placed her in an LAVELL boot, which she no longer uses. She states that the smell has improved, the redness is resolving, and the pain is improving as well. She denies any systemic signs of infection. She otherwise denies any fever, chills, nausea, vomiting, shortness of breath, chest pain or pressure, syncope or presyncopal episodes. Progress of Wound: The patient's cellulitis has deteriorated though not past the initial margins that were outlined, stable, pain has improved since previous visit. Wound slowly improving - Physical Exam Vital Signs Temp Pulse Resp BP 96.5 F L 98 22 H 148/91 H 07/03/17 13:12 07/03/17 13:12 07/03/17 13:12 07/03/17 13:12 General: Alert, Oriented x3, Cooperative, No apparent distress Cardiovascular: Regular rate Extremities: No clubbing, No cyanosis, Edema - Generalized edema left lower extremity Skin: Ulcer/ Wound - Cellulitis surrounding left lower extremity ulceration, suspect venous leg ulcer as ABIs done and normal, consideration is covered in slough and devitalized tissue, painful area around site of ulceration Wound Measurements and Assessment - Nurse 1 - General Ulcer Measurement Start: 06/12/17 13:51 Freq: Status: Active Protocol: Activity Type Activity Date Activity User E-Sign Co-Sign Detail Recorded Client Recorded Date Recorded By Document 07/03/17 13:12 DL [id number] 07/03/17 13:21 DL 07/03/17 13:12 Wound Center Nurse 1 [Ulcer Assessment Protocol: JACK.NICK.LOC] #1 left lateral LE -Current Size (cm) - Length 4.6 -Current Size (cm) - Width 2.8 -Current Size (cm) - Depth 0.2 -Total Square Cm 12.88 -Photo Taken No -Exudate Amt Medium (34-66%) -Exudate Type Serosanguineous -Wound Margin Distinct, Outline Attached -Granulation Amt Small (1-33%) -Granulation Quality Red -Necrosis Amt Large (67-100%) -Necrotic Tissue Type Adherent Slough -Structure Exposed N/A -Texture (Kajal-wound Skin Appearance) Excoriation -Moisture (Kajal-wound Skin Appearance No Abnormality ) -Color (Kajal-wound Skin Appearance) Erythema -Temperature (Kajal-wound Skin No Abnormality Appearance) (Pt Warm) -Ulcer Cleansing Rinsed/ Irrigated with Saline -Foul Odor after Cleansing No -Anesthetic Used 4% Lidocaine Solution [Edema Assessment] -Left Calf (cm) 32.3 -Left Ankle (cm) 22.6 - Nurse 2 - General Ulcer CM Notes Start: 06/12/17 13:51 Freq: Status: Active Protocol: Activity Type Activity Date Activity User E-Sign Co-Sign Detail Recorded Client Recorded Date Recorded By Document 07/03/17 14:21 DV [id number] 07/03/17 14:29 DV 07/03/17 14:21 Wound Center Nurse 2 [Procedure/Treatment] #1 left lateral LE -Time 14:23 -Correct Side, Site, Position Yes -Correct Procedure Yes -Procedure Performed Yes -Type of Procedure Debridement -Clinical Debridement Muscle -Post Debridement Size (cm) - Length 4.9 -Post Debridement Size (cm) - Width 3.1 -Post Debridement Size (cm) - Depth 0.3 -Total Square Cm 15.19 -Wound/Ulcer Outcome Not Healed -Ulcer Cleansing Rinsed/ Irrigated with Saline -Foul Odor after Cleansing No -Bioengineered Tissue No -Cetacaine Rye No -Bleeding Controlled with Pressure -Treatment Response Procedure Tolerated Well [See Physician Procedure note for Specifics] Pain Scale: 0-10 Numeric [Pain] -Is Patient Pain Free? Yes Psych/Mental Status: Anxious, Alert and oriented to time, place, person, mood and affect Debridement Note Post-Debridement Measurements/Treatment WC - Nurse 2 - General Ulcer CM Notes Start: 06/12/17 13:51 Freq: Status: Active Protocol: Activity Type Activity Date Activity User E-Sign Co-Sign Detail Recorded Client Recorded Date Recorded By Document 06/12/17 17:52 DV [id number] 06/12/17 17:57 DV Document 06/19/17 14:02 DV [id number] 06/19/17 14:09 DV Document 06/26/17 14:05 DV [id number] 06/26/17 14:09 DV Document 07/03/17 14:21 DV [id number] 07/03/17 14:29 DV 06/12/17 06/19/17 06/26/17 17:52 14:02 14:05 Wound Center Nurse 2 #1 left lateral LE -Time 17:55 14:03 14:07 -Correct Patient Yes Yes Yes -Correct Side, Site, Position Yes Yes Yes -Correct Procedure Yes Yes Yes -Procedure Performed No Yes Yes -Type of Procedure Debridement Debridement -Clinical Debridement Subcutaneous Muscle -Post Debridement Size (cm) - Length 4.3 4.8 -Post Debridement Size (cm) - Width 2.4 2.9 -Post Debridement Size (cm) - Depth 0.2 0.2 -Total Square Cm 10.32 13.92 -Wound/Ulcer Outcome Not Healed Not Healed Not Healed -Ulcer Cleansing Rinsed/ Rinsed/ Rinsed/ Irrigated with Irrigated with Irrigated with Saline Saline Saline -Foul Odor after Cleansing No No No -Bioengineered Tissue No No No -Cetacaine Rye No No No -Bleeding Controlled with NA Pressure Pressure -Treatment Response Procedure Procedure Tolerated Well Tolerated Well Pain Scale: 0-10 Numeric Is Patient Pain Free? No Yes Yes Lateral LLE -Description Sharp Crushing -Intensity 10 -Duration (hours) Acute -Pain Behavior Moaning Irritability Facial Grimacing VS Changes -Pain Aggravating Factors ADL's Stair Climbing Changing Position Exercise/ Activity Standing Sitting Walking -Alleviating Factors/Interventions None -Effectiveness of Alleviating Factor/ Not effective Intervention -Comments Patient will be treated for infection with ATB and C. Santyl with debridement to follow next week 07/03/17 14:21 Wound Center Nurse 2 #1 left lateral LE -Time 14:23 -Correct Patient -Correct Side, Site, Position Yes -Correct Procedure Yes -Procedure Performed Yes -Type of Procedure Debridement -Clinical Debridement Muscle -Post Debridement Size (cm) - Length 4.9 -Post Debridement Size (cm) - Width 3.1 -Post Debridement Size (cm) - Depth 0.3 -Total Square Cm 15.19 -Wound/Ulcer Outcome Not Healed -Ulcer Cleansing Rinsed/ Irrigated with Saline -Foul Odor after Cleansing No -Bioengineered Tissue No -Cetacaine Rye No -Bleeding Controlled with Pressure -Treatment Response Procedure Tolerated Well Pain Scale: 0-10 Numeric Is Patient Pain Free? Yes Lateral LLE -Description -Intensity -Duration (hours) -Pain Behavior -Pain Aggravating Factors -Alleviating Factors/Interventions -Effectiveness of Alleviating Factor/ Intervention -Comments Wound debrided: Left lower extremity ulceration Laterality: Left Type of Debridement: Excisional debridement Anesthesia Used: 4% Lidocaine Solution, 5% Lidocaine Gel Depth: Down to and including healthy tissue, in the subcutaneous layer, to muscle Percentage of wound debrided: 100 Instrument Used: 5mm curette Tissue Removed: Slough and fibrous tissue Severity: Necrosis of Muscle Amount of bleeding with debridement: Mild Bleeding Controlled with: Pressure Patient tolerated procedure well Assessment/Plan Active Problems Lymphedema (Acute) Hypertension (Chronic) PVD (peripheral vascular disease) (Chronic) Cellulitis of left lower extremity (Acute) Nonhealing ulcer of left lower extremity with necrosis of muscle (Acute) Assessment: Cellulitis has deteriorated since last week though has not spread further than the initial margins drawn, patient did note today that she has been constantly washing the site aggressively up to 3 times a day and that without notifying our office she went back to using Santyl instead of Aquasol that was previously prescribed, she also notes that she initially did not take the Bactrim and Flagyl appropriately and that she only took them when she remember to take them. Ulceration itself is stable however Plan: I evaluated the patient and discussed the ongoing care plan. The patient does have cellulitis which has deteriorated with a nonhealing ulcer of the left lower extremity as described above. A culture and sensitivity was done which showed staph and was susceptible to the Bactrim DS which she did not take appropriately. Anaerobic cocci was cultured as well, therefore the patient was treated with Flagyl which she did not take appropriately. Repeat cultures were done which were negative. However given the fact that the initial antibiotics were taken inappropriately and the fact that the cellulitis has now deteriorated , will treat with Levaquin ?7 days as the staph was susceptible to this and the initial culture. Wound was debrided to the muscle fascia today. Patient tolerated well. Blood work reviewed with patient, pre-albumin was low, discussed increasing her protein intake and drinking premier protein drinks 3 a day, may recheck in the future and if still low possible referral to nutrition therapy. ABIs were done today and demonstrated right HARRISON 1.15 and left HARRISON 1.32. Discussed with patient the importance of taking her antibiotic appropriately and not to scrub the lower extremity ulcer aggressively or wash it aggressively throughout the day. Educated patient on red flag symptoms of worsening cellulitis that would require urgent medical attention and potential inpatient hospitalization for antibiotics. Patient verbalized understanding of this. Pending vascular studies. Discussed with patient maximizing oral nutrition to promote wound healing which includes incorporating protein vitamin C into the diet. Due to the fact that the patient is not homebound, home health is unlikely for this patient. Germaine was applied today with a 3M 2 layer wrap as ABIs were normal. May consider the use of puraply in the future as this will be a likely intervention in the future due to delayed progression of wound. This note was generated with [employer] dictation software. It may contain incorrect words, spelling, and punctuation that were not noted in checking the note before signing. Code Visit 111xxx-113xx: [id number] Kaley musc/fascia 20 sq cm/<
== END 2017-07-09 23:59 ==
LOC: WC 13:00
PROVIDERS: Visit Provider Nurse Practitioner Family
DX: I73.9 Peripheral vascular disease, unspecified (principal); L97.822 Non-pressure chronic ulcer of other part of left lower leg with fat layer exposed; I10 Essential (primary) hypertension; L03.116 Cellulitis of left lower limb; I89.0 Lymphedema, not elsewhere classified; Z79.899 Other long term (current) drug therapy
CPT/HCPCS: 11042; 11043; 80053; 84134; 85025; 85652; 86140; 87070; 87075; 87077; 87186; 87205; 97602; 99214; G0463

== ENCOUNTER 2017-07-31 14:00 | Outpatient (RCR) | payer MEDICARE, SELFPAY ==
[2017-07-03 13:12] VITALS: BP 148/91
[2017-07-10 01:00] VITALS: PULSE 98; RESP 22; TEMP 35.8
[2017-07-10 13:45] VITALS: BP 148/79; PULSE 79; RESP 18; TEMP 36.2; BMI 22.4
--- NOTE | 2017-07-10 14:27 | PCM.WC.PN ---
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 Status: Acute Current Visit: Yes Code(s): L97.922 - Non-pressure chronic ulcer of unspecified part of left lower leg with fat layer exposed (2) Cellulitis of left lower extremity Status: Acute Current Visit: Yes Code(s): L03.116 - Cellulitis of left lower limb (3) Lymphedema Status: Acute Current Visit: Yes Code(s): I89.0 - Lymphedema, not elsewhere classified (4) Hypertension Status: Chronic Current Visit: Yes Code(s): I10 - Essential (primary) hypertension (5) PVD (peripheral vascular disease) Status: Chronic Current Visit: Yes Code(s): I73.9 - Peripheral vascular disease, unspecified Type of Wound Date of Service: 07/10/17 Chief Complaint: Nonhealing ulcer left lower extremity. History of Wound: This is a 77-year-old white female who presents to the wound center today for follow-up of an ulcer of the left lower extremity and cellulitis. She has a past medical history which is significant for hypertension vertigo and peripheral vascular disease. The patient states that her symptom of lower extremity ulceration on the left extremity started approximately 05/15/2017 . She states that she saw her PCP who placed her in an LAVELL boot, which she no longer uses. She states that the smell has improved, the redness is resolving, and the pain is improving as well. She denies any systemic signs of infection. She otherwise denies any fever, chills, nausea, vomiting, shortness of breath, chest pain or pressure, syncope or presyncopal episodes. Progress of Wound: The patient's cellulitis has resolved, wound stable and improving, pain has resolved. - Physical Exam Vital Signs Temp Pulse Resp BP 97.1 F L 79 18 148/79 H 07/10/17 13:45 07/10/17 13:45 07/10/17 13:45 07/10/17 13:45 General: Alert, Oriented x3, Cooperative, No apparent distress HEENT: PERRLA, EOMI Cardiovascular: Regular rate Extremities: No clubbing, No cyanosis, Cool, Peripheral Pulses Normal Skin: Ulcer/ Wound - Left lateral lower extremity ulcer present, hyper granulation tissue and slough present with hyperkeratotic edges around wound bed. There is extravasation surrounding wound, cellulitis has resolved Wound Measurements and Assessment - Nurse 1 - General Ulcer Measurement Start: 07/10/17 13:45 Freq: Status: Active Protocol: Activity Type Activity Date Activity User E-Sign Co-Sign Detail Recorded Client Recorded Date Recorded By Document 07/10/17 13:45 DL [id number] 07/10/17 13:57 DL 07/10/17 13:45 Wound Center Nurse 1 [Ulcer Assessment Protocol: JACK.WD.LOC] #1 left lateral LE -Current Size (cm) - Length 4.5 -Current Size (cm) - Width 2.5 -Current Size (cm) - Depth 0.1 -Total Square Cm 11.25 -Photo Taken No -Exudate Amt Medium (34-66%) -Exudate Type Serosanguineous -Wound Margin Distinct, Outline Attached -Granulation Amt Medium (34-66%) -Granulation Quality Red -Necrosis Amt Medium (34-66%) -Necrotic Tissue Type Adherent Slough -Structure Exposed N/A -Texture (Kajal-wound Skin Appearance) No Abnormality -Moisture (Kajal-wound Skin Appearance No Abnormality ) -Color (Kajal-wound Skin Appearance) Hemosiderin Staining -Temperature (Kajal-wound Skin No Abnormality Appearance) (Pt Warm) -Ulcer Cleansing Wound Cleanser -Foul Odor after Cleansing No -Anesthetic Used 4% Lidocaine Solution [Edema Assessment] -Left Calf (cm) 28.6 -Left Ankle (cm) 20.3 - Nurse 2 - General Ulcer CM Notes Start: 07/10/17 13:45 Freq: Status: Active Protocol: Activity Type Activity Date Activity User E-Sign Co-Sign Detail Recorded Client Recorded Date Recorded By Document 07/10/17 14:30 DV [id number] 07/10/17 14:36 DV 07/10/17 14:30 Wound Center Nurse 2 [Procedure/Treatment] #1 left lateral LE -Time 14:30 -Correct Patient Yes -Correct Side, Site, Position Yes -Correct Procedure Yes -Procedure Performed Yes -Type of Procedure Debridement -Clinical Debridement Subcutaneous -Post Debridement Size (cm) - Length 4.5 -Post Debridement Size (cm) - Width 2.6 -Post Debridement Size (cm) - Depth 0.2 -Total Square Cm 11.70 -Wound/Ulcer Outcome Not Healed -Ulcer Cleansing Rinsed/ Irrigated with Saline -Foul Odor after Cleansing No -Bioengineered Tissue No -Cetacaine [place] No -Bleeding Controlled with Pressure -Treatment Response Procedure Tolerated Well [See Physician Procedure note for Specifics] Pain Scale: 0-10 Numeric [Pain] -Is Patient Pain Free? Yes Neurological: - - Neurovascularly intact Psych/Mental Status: Anxious, Alert and oriented to time, place, person, mood and affect Debridement Note Post-Debridement Measurements/Treatment WC - Nurse 2 - General Ulcer CM Notes Start: 07/10/17 13:45 Freq: Status: Active Protocol: Activity Type Activity Date Activity User E-Sign Co-Sign Detail Recorded Client Recorded Date Recorded By Document 07/10/17 14:30 DV [id number] 07/10/17 14:36 DV 07/10/17 14:30 Wound Center Nurse 2 #1 left lateral LE -Time 14:30 -Correct Patient Yes -Correct Side, Site, Position Yes -Correct Procedure Yes -Procedure Performed Yes -Type of Procedure Debridement -Clinical Debridement Subcutaneous -Post Debridement Size (cm) - Length 4.5 -Post Debridement Size (cm) - Width 2.6 -Post Debridement Size (cm) - Depth 0.2 -Total Square Cm 11.70 -Wound/Ulcer Outcome Not Healed -Ulcer Cleansing Rinsed/ Irrigated with Saline -Foul Odor after Cleansing No -Bioengineered Tissue No -Cetacaine [place] No -Bleeding Controlled with Pressure -Treatment Response Procedure Tolerated Well Pain Scale: 0-10 Numeric Is Patient Pain Free? Yes Wound debrided: Left lower extremity Laterality: Left Type of Debridement: Excisional debridement Anesthesia Used: 5% Lidocaine Gel Depth: in the subcutaneous layer Percentage of wound debrided: 100 Instrument Used: 5mm curette Tissue Removed: Slough and hyper ventilatory and fibrous tissue Severity: Fat Layer Exposed Amount of bleeding with debridement: Mild Bleeding Controlled with: Pressure Patient tolerated procedure well Assessment/Plan Active Problems Lymphedema (Acute) Hypertension (Chronic) PVD (peripheral vascular disease) (Chronic) Cellulitis of left lower extremity (Acute) Nonhealing ulcer of left lower extremity with fat layer exposed (Acute) Assessment: Wound is stable and improving. Plan: I evaluated the patient and discussed the ongoing care plan. The patient did have cellulitis which has has now resolved since treatment with antibiotics. Repeat cultures were done which were negative. Wound was debrided to the subcutaneous tissue today. Patient tolerated well. Blood work reviewed with patient, pre-albumin was low, discussed increasing her protein intake and drinking premier protein drinks 3 a day, may recheck in the future and if still low possible referral to nutrition therapy. ABIs were done today and demonstrated right HARRISON 1.15 and left HARRISON 1.32. Educated patient on red flag symptoms of worsening cellulitis that would require urgent medical attention and potential inpatient hospitalization for antibiotics. Patient verbalized understanding of this. Pending vascular studies. Discussed with patient maximizing oral nutrition to promote wound healing which includes incorporating protein vitamin C into the diet. Germaine was applied today with a 3M 2 layer wrap as ABIs were normal. Epifix is a likely intervention in the future due to delayed progression of wound. This note was generated with [employer] dictation software. It may contain incorrect words, spelling, and punctuation that were not noted in checking the note before signing. Code Visit 111xxx-113xx: 29678 Kaley subq tissue 20 sq cm/<
--- NOTE | 2017-07-11 14:35 | PN.PCM_ITS ---
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 Status: Acute Current Visit: Yes Code(s): L97.922 - Non-pressure chronic ulcer of unspecified part of left lower leg with fat layer exposed (2) Cellulitis of left lower extremity Status: Acute Current Visit: Yes Code(s): L03.116 - Cellulitis of left lower limb (3) Lymphedema Status: Acute Current Visit: Yes Code(s): I89.0 - Lymphedema, not elsewhere classified (4) Hypertension Status: Chronic Current Visit: Yes Code(s): I10 - Essential (primary) hypertension (5) PVD (peripheral vascular disease) Status: Chronic Current Visit: Yes Code(s): I73.9 - Peripheral vascular disease, unspecified Type of Wound Date of Service: 07/10/17 Chief Complaint: Nonhealing ulcer left lower extremity. History of Wound: This is a 77-year-old white female who presents to the wound center today for follow-up of an ulcer of the left lower extremity and cellulitis. She has a past medical history which is significant for hypertension vertigo and peripheral vascular disease. The patient states that her symptom of lower extremity ulceration on the left extremity started approximately 05/15/2017 . She states that she saw her PCP who placed her in an LAVELL boot, which she no longer uses. She states that the smell has improved, the redness is resolving, and the pain is improving as well. She denies any systemic signs of infection. She otherwise denies any fever, chills, nausea, vomiting, shortness of breath, chest pain or pressure, syncope or presyncopal episodes. Progress of Wound: The patient's cellulitis has resolved, wound stable and improving, pain has resolved. - Physical Exam Vital Signs Temp Pulse Resp BP 97.1 F L 79 18 148/79 H 07/10/17 13:45 07/10/17 13:45 07/10/17 13:45 07/10/17 13:45 General: Alert, Oriented x3, Cooperative, No apparent distress HEENT: PERRLA, EOMI Cardiovascular: Regular rate Extremities: No clubbing, No cyanosis, Cool, Peripheral Pulses Normal Skin: Ulcer/ Wound - Left lateral lower extremity ulcer present, hyper granulation tissue and slough present with hyperkeratotic edges around wound bed. There is extravasation surrounding wound, cellulitis has resolved Wound Measurements and Assessment - Nurse 1 - General Ulcer Measurement Start: 07/10/17 13:45 Freq: Status: Active Protocol: Activity Type Activity Date Activity User E-Sign Co-Sign Detail Recorded Client Recorded Date Recorded By Document 07/10/17 13:45 DL [id number] 07/10/17 13:57 DL 07/10/17 13:45 Wound Center Nurse 1 [Ulcer Assessment Protocol: JACK.WD.LOC] #1 left lateral LE -Current Size (cm) - Length 4.5 -Current Size (cm) - Width 2.5 -Current Size (cm) - Depth 0.1 -Total Square Cm 11.25 -Photo Taken No -Exudate Amt Medium (34-66%) -Exudate Type Serosanguineous -Wound Margin Distinct, Outline Attached -Granulation Amt Medium (34-66%) -Granulation Quality Red -Necrosis Amt Medium (34-66%) -Necrotic Tissue Type Adherent Slough -Structure Exposed N/A -Texture (Kajal-wound Skin Appearance) No Abnormality -Moisture (Kajal-wound Skin Appearance No Abnormality ) -Color (Kajal-wound Skin Appearance) Hemosiderin Staining -Temperature (Kajal-wound Skin No Abnormality Appearance) (Pt Warm) -Ulcer Cleansing Wound Cleanser -Foul Odor after Cleansing No -Anesthetic Used 4% Lidocaine Solution [Edema Assessment] -Left Calf (cm) 28.6 -Left Ankle (cm) 20.3 - Nurse 2 - General Ulcer CM Notes Start: 07/10/17 13:45 Freq: Status: Active Protocol: Activity Type Activity Date Activity User E-Sign Co-Sign Detail Recorded Client Recorded Date Recorded By Document 07/10/17 14:30 DV [id number] 07/10/17 14:36 DV 07/10/17 14:30 Wound Center Nurse 2 [Procedure/Treatment] #1 left lateral LE -Time 14:30 -Correct Patient Yes -Correct Side, Site, Position Yes -Correct Procedure Yes -Procedure Performed Yes -Type of Procedure Debridement -Clinical Debridement Subcutaneous -Post Debridement Size (cm) - Length 4.5 -Post Debridement Size (cm) - Width 2.6 -Post Debridement Size (cm) - Depth 0.2 -Total Square Cm 11.70 -Wound/Ulcer Outcome Not Healed -Ulcer Cleansing Rinsed/ Irrigated with Saline -Foul Odor after Cleansing No -Bioengineered Tissue No -Cetacaine [place] No -Bleeding Controlled with Pressure -Treatment Response Procedure Tolerated Well [See Physician Procedure note for Specifics] Pain Scale: 0-10 Numeric [Pain] -Is Patient Pain Free? Yes Neurological: - - Neurovascularly intact Psych/Mental Status: Anxious, Alert and oriented to time, place, person, mood and affect Debridement Note Post-Debridement Measurements/Treatment WC - Nurse 2 - General Ulcer CM Notes Start: 07/10/17 13:45 Freq: Status: Active Protocol: Activity Type Activity Date Activity User E-Sign Co-Sign Detail Recorded Client Recorded Date Recorded By Document 07/10/17 14:30 DV [id number] 07/10/17 14:36 DV 07/10/17 14:30 Wound Center Nurse 2 #1 left lateral LE -Time 14:30 -Correct Patient Yes -Correct Side, Site, Position Yes -Correct Procedure Yes -Procedure Performed Yes -Type of Procedure Debridement -Clinical Debridement Subcutaneous -Post Debridement Size (cm) - Length 4.5 -Post Debridement Size (cm) - Width 2.6 -Post Debridement Size (cm) - Depth 0.2 -Total Square Cm 11.70 -Wound/Ulcer Outcome Not Healed -Ulcer Cleansing Rinsed/ Irrigated with Saline -Foul Odor after Cleansing No -Bioengineered Tissue No -Cetacaine [place] No -Bleeding Controlled with Pressure -Treatment Response Procedure Tolerated Well Pain Scale: 0-10 Numeric Is Patient Pain Free? Yes Wound debrided: Left lower extremity Laterality: Left Type of Debridement: Excisional debridement Anesthesia Used: 5% Lidocaine Gel Depth: in the subcutaneous layer Percentage of wound debrided: 100 Instrument Used: 5mm curette Tissue Removed: Slough and hyper ventilatory and fibrous tissue Severity: Fat Layer Exposed Amount of bleeding with debridement: Mild Bleeding Controlled with: Pressure Patient tolerated procedure well Assessment/Plan Active Problems Lymphedema (Acute) Hypertension (Chronic) PVD (peripheral vascular disease) (Chronic) Cellulitis of left lower extremity (Acute) Nonhealing ulcer of left lower extremity with fat layer exposed (Acute) Assessment: Wound is stable and improving. Plan: I evaluated the patient and discussed the ongoing care plan. The patient did have cellulitis which has has now resolved since treatment with antibiotics. Repeat cultures were done which were negative. Wound was debrided to the subcutaneous tissue today. Patient tolerated well. Blood work reviewed with patient, pre-albumin was low, discussed increasing her protein intake and drinking premier protein drinks 3 a day, may recheck in the future and if still low possible referral to nutrition therapy. ABIs were done today and demonstrated right HARRISON 1.15 and left HARRISON 1.32. Educated patient on red flag symptoms of worsening cellulitis that would require urgent medical attention and potential inpatient hospitalization for antibiotics. Patient verbalized understanding of this. Pending vascular studies. Discussed with patient maximizing oral nutrition to promote wound healing which includes incorporating protein vitamin C into the diet. Germaine was applied today with a 3M 2 layer wrap as ABIs were normal. Epifix is a likely intervention in the future due to delayed progression of wound. This note was generated with [email or web address] dictation software. It may contain incorrect words, spelling, and punctuation that were not noted in checking the note before signing. Code Visit 111xxx-113xx: 48042 Kaley subq tissue 20 sq cm/<
--- NOTE | 2017-07-14 09:42 | VDLE_ITS ---
Reason For Study: Non-healing wound RIGHT LEFT GSV is normal. GSV is normal. CFV is compressible, spontaneous, phasic, CFV is compressible, spontaneous, phasic, competent and demonstrates normal competent, and demonstrates normal augmentation. augmentation. FV is compressible, spontaneous, phasic, FV is compressible, spontaneous, phasic, competent and demonstrates normal competent and demonstrates normal augmentation. augmentation. POP V is compressible, spontaneous, phasic, POP V is compressible, spontaneous, phasic, competent and demonstrates normal competent and demonstrates normal augmentation. augmentation. T/P Trunk is compressible. T/P Trunk is compressible. PTV is compressible. PTV is compressible. RT PerV is compressible. LT PerV is compressible. SFJ is competent SFJ is competent GSV is INCOMPETENT with reflux greater GSV is INCOMPETENT with reflux greater than .5 sec and diameter of .28 x .28 cm than .5 sec and diameter of .40 x .42 cm SSv is INCOMPETENT with reflux greater SSV is competent. than .5 sec and diameter of .20 x .22 cm. Procedure Exam performed in department. A preliminary report was called and/or faxed to [facility]. Interpretation Summary Deep veins of the lower extremities are bilaterally patent and compressible segmentally. There is no evidence of deep vein thrombosis on either side. Valvular competence appears intact within the proximal deep venous systems bilaterally. The greater saphenous veins appear bilaterally patent and compressible segmentally. Sapheno-femoral junctions are bilaterally competent . Segmental valvular incompetence is noted within the greater saphenous veins bilaterally. The right small saphenous vein is patent and incompetent. The left small saphenous vein is patent and competent. Ordering Physician: Subhash Lutz Performed By: Sun Sahni RVT
[2017-07-17 14:09] VITALS: BP 145/96; PULSE 75; RESP 20; BMI 22.4
--- NOTE | 2017-07-22 10:12 | PN.PCM_ITS ---
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 Status: Acute Code(s): L97.922 - Non-pressure chronic ulcer of unspecified part of left lower leg with fat layer exposed (2) Cellulitis of left lower extremity Status: Acute Code(s): L03.116 - Cellulitis of left lower limb (3) Lymphedema Status: Acute Code(s): I89.0 - Lymphedema, not elsewhere classified (4) Hypertension Status: Chronic Code(s): I10 - Essential (primary) hypertension (5) PVD (peripheral vascular disease) Status: Chronic Code(s): I73.9 - Peripheral vascular disease, unspecified Type of Wound Date of Service: 07/17/17 Chief Complaint: Nonhealing ulcer left lower extremity. History of Wound: This is a 77-year-old white female who presents to the wound center today for follow-up of an ulcer of the left lower extremity and cellulitis. She has a past medical history which is significant for hypertension vertigo and peripheral vascular disease. The patient states that her symptom of lower extremity ulceration on the left extremity started approximately 05/15/2017 . She states that she saw her PCP who placed her in an LAVELL boot, which she no longer uses. She states that the smell has improved, the redness is resolving, and the pain is improving as well. She denies any systemic signs of infection. She otherwise denies any fever, chills, nausea, vomiting, shortness of breath, chest pain or pressure, syncope or presyncopal episodes. Progress of Wound: The patient's cellulitis has resolved, wound stable and improving, pain has resolved. - Physical Exam Vital Signs Temp Pulse Resp BP 97.1 F L 75 20 H 145/96 H 07/10/17 13:45 07/17/17 14:09 07/17/17 14:09 07/17/17 14:09 General: Alert, Oriented x3, Cooperative, No apparent distress HEENT: Atraumatic Cardiovascular: Regular rate Extremities: No clubbing, No edema, Diminished Peripheral Pulses Skin: Ulcer/ Wound - Ulcer left lower extremity, hypergranulatory tissue and slough present, no exudate pain or foul smell present on exam Psych/Mental Status: Normal Affect, Alert and oriented to time, place, person, mood and affect Debridement Note Post-Debridement Measurements/Treatment WC - Nurse 2 - General Ulcer CM Notes Start: 07/10/17 13:45 Freq: Status: Active Protocol: Activity Type Activity Date Activity User E-Sign Co-Sign Detail Recorded Client Recorded Date Recorded By Document 07/10/17 14:30 DV [id number] 07/10/17 14:36 DV Document 07/17/17 15:29 DV [id number] 07/17/17 15:30 DV 07/10/17 07/17/17 14:30 15:29 Wound Center Nurse 2 #1 left lateral LE -Time 14:30 15:29 -Correct Patient Yes Yes -Correct Side, Site, Position Yes Yes -Correct Procedure Yes Yes -Procedure Performed Yes Yes -Type of Procedure Debridement Debridement -Clinical Debridement Subcutaneous Subcutaneous -Post Debridement Size (cm) - Length 4.5 3.4 -Post Debridement Size (cm) - Width 2.6 2.3 -Post Debridement Size (cm) - Depth 0.2 0.1 -Total Square Cm 11.70 7.82 -Wound/Ulcer Outcome Not Healed Not Healed -Ulcer Cleansing Rinsed/ Rinsed/ Irrigated with Irrigated with Saline Saline -Foul Odor after Cleansing No Yes -Bioengineered Tissue No No -Cetacaine [place] No -Bleeding Controlled with Pressure Pressure -Treatment Response Procedure Procedure Tolerated Well Tolerated Well Pain Scale: 0-10 Numeric Is Patient Pain Free? Yes Yes Wound debrided: Left lower extremity ulcer Laterality: Left Type of Debridement: Excisional debridement Anesthesia Used: 4% Lidocaine Solution Depth: in the subcutaneous layer Percentage of wound debrided: 100 Instrument Used: 5mm curette Tissue Removed: slough and hypergranulatory tissue Severity: Fat Layer Exposed Amount of bleeding with debridement: Mild Bleeding Controlled with: Pressure Patient tolerated procedure well Assessment/Plan Assessment: Wound is stable and improving. Plan: I evaluated the patient and discussed the ongoing care plan. The patient did have cellulitis which has has now resolved since treatment with antibiotics. Repeat cultures were done which were negative. Wound was debrided to the subcutaneous tissue today. Patient tolerated well. Blood work reviewed with patient, pre-albumin was low, discussed increasing her protein intake and drinking premier protein drinks 3 a day, may recheck in the future and if still low possible referral to nutrition therapy. ABIs were done previously and demonstrated right HARRISON 1.15 and left HARRISON 1.32. Educated patient on red flag symptoms of worsening cellulitis that would require urgent medical attention and potential inpatient hospitalization for antibiotics. Patient verbalized understanding of this. Vascular studies demonstrated the following: Valvular competence appears intact within the. proximal deep venous systems bilaterally. The greater saphenous veins appear bilaterally patent and compressible segmentally. Sapheno-femoral junctions are bilaterally competent . Segmental valvular incompetence is noted within the greater saphenous veins bilaterally. The right small saphenous vein is patent and incompetent. The left small saphenous vein is patent and competent. Discussed with patient maximizing oral nutrition to promote wound healing which includes incorporating protein vitamin C into the diet. Germaine was applied today with a 3M 2 layer wrap as ABIs were normal. Epifix discussed and will be considered at follow up in 1 week due to delayed progression of wound. This note was generated with [employer] dictation software. It may contain incorrect words, spelling, and punctuation that were not noted in checking the note before signing. Code Visit 111xxx-113xx: [id number] Kaley subq tissue 20 sq cm/<
[2017-07-24 13:49] VITALS: BP 159/78; PULSE 73; RESP 18; TEMP 36.3; BMI 22.4
--- NOTE | 2017-07-24 20:42 | PCM.WC.PN ---
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 Status: Acute Current Visit: Yes Code(s): L97.922 - Non-pressure chronic ulcer of unspecified part of left lower leg with fat layer exposed (2) Cellulitis of left lower extremity Status: Acute Current Visit: No Code(s): L03.116 - Cellulitis of left lower limb (3) Lymphedema Status: Acute Current Visit: Yes Code(s): I89.0 - Lymphedema, not elsewhere classified (4) Hypertension Status: Chronic Current Visit: No Code(s): I10 - Essential (primary) hypertension (5) PVD (peripheral vascular disease) Status: Chronic Current Visit: Yes Code(s): I73.9 - Peripheral vascular disease, unspecified Type of Wound Date of Service: 07/24/17 Chief Complaint: Nonhealing ulcer left lower extremity. History of Wound: This is a 77-year-old white female who presents to the wound center today for follow-up of an ulcer of the left lower extremity and cellulitis. She has a past medical history which is significant for hypertension vertigo and peripheral vascular disease. The patient states that her symptom of lower extremity ulceration on the left extremity started approximately 05/15/2017 . She states that she saw her PCP who placed her in an LAVELL boot, which she no longer uses. She states that the smell has improved, the redness is resolving, and the pain is improving as well. She denies any systemic signs of infection. She otherwise denies any fever, chills, nausea, vomiting, shortness of breath, chest pain or pressure, syncope or presyncopal episodes. Progress of Wound: The patient's cellulitis has resolved, wound stable and improving, pain has resolved. - Physical Exam Vital Signs Temp Pulse Resp BP 97.3 F L 73 18 159/78 H 07/24/17 13:49 07/24/17 13:49 07/24/17 13:49 07/24/17 13:49 General: Alert, Oriented x3, Cooperative, No apparent distress HEENT: Atraumatic Oral: Moist Mucosa Cardiovascular: Regular rate Extremities: No edema, Peripheral Pulses Normal Skin: Ulcer/ Wound - Left venous lower extremity ulcer hypergranulatory tissue and slough present Wound Measurements and Assessment WC - Nurse 1 - General Ulcer Measurement Start: 07/10/17 13:45 Freq: Status: Active Protocol: Activity Type Activity Date Activity User E-Sign Co-Sign Detail Recorded Client Recorded Date Recorded By Document 07/24/17 13:49 TM [email or web address] 07/24/17 14:04 07/24/17 13:49 Wound Center Nurse 1 [Ulcer Assessment Protocol: WC.WD.LOC] #1 left lateral LE -Combined with other wound No -Current Size (cm) - Length 3.5 -Current Size (cm) - Width 2.0 -Current Size (cm) - Depth 0.1 -Total Square Cm 7.00 -Photo Taken No -Epithelialization Small 1-33% -Tunneling No -Undermining/Tunneling No -Circular Undermining No -Classification - Thickness Full Thickness without Exposed Support Structure -Exudate Amt Small (1-33%) -Exudate Type Serosanguineous -Wound Margin Distinct, Outline Attached -Granulation Amt Large (67-100%) -Granulation Quality Red -Slough/Fibrin Yes -Necrosis Amt Small (1-33%) -Necrotic Tissue Type Adherent Slough -Structure Exposed Fascia Fat Layer Exposed -Texture (Kajal-wound Skin Appearance) Scarring -Moisture (Kajal-wound Skin Appearance No Abnormality ) -Color (Kajal-wound Skin Appearance) Erythema Hemosiderin Staining -Temperature (Kajal-wound Skin No Abnormality Appearance) (Pt Warm) -Tenderness on Palpation (Kajal-wound No Skin Appearance) -Ulcer Cleansing cynthia hex -Foul Odor after Cleansing No -Anesthetic Used 5% Lidocaine Gel [Edema Assessment] -Lower Limb Edema Present Yes -Left Calf (cm) 29.0 -Left Ankle (cm) 22.0 - Nurse 2 - General Ulcer CM Notes Start: 07/10/17 13:45 Freq: Status: Active Protocol: Activity Type Activity Date Activity User E-Sign Co-Sign Detail Recorded Client Recorded Date Recorded By Document 07/24/17 14:52 DV [id number] 07/24/17 14:55 DV 07/24/17 14:52 Wound Center Nurse 2 [Procedure/Treatment] #1 left lateral LE -Time 14:53 -Correct Patient Yes -Correct Side, Site, Position Yes -Correct Procedure Yes -Procedure Performed Yes -Type of Procedure Debridement -Clinical Debridement Subcutaneous -Post Debridement Size (cm) - Length 3.4 -Post Debridement Size (cm) - Width 2.2 -Post Debridement Size (cm) - Depth 0.1 -Total Square Cm 7.48 -Wound/Ulcer Outcome Not Healed -Ulcer Cleansing Rinsed/ Irrigated with Saline -Foul Odor after Cleansing No -Expiration Date 05/09/22 -Product Lot Number [id number] -Percent Used 100 -Saline Lot Number [id number] -Topical Lidocaine (%) 5 -Bleeding Controlled with NA -Treatment Response Procedure Tolerated Well [See Physician Procedure note for Specifics] Pain Scale: 0-10 Numeric [Pain] -Is Patient Pain Free? Yes Psych/Mental Status: Normal Affect, Alert and oriented to time, place, person, mood and affect Debridement Note Post-Debridement Measurements/Treatment WC - Nurse 2 - General Ulcer CM Notes Start: 07/10/17 13:45 Freq: Status: Active Protocol: Activity Type Activity Date Activity User E-Sign Co-Sign Detail Recorded Client Recorded Date Recorded By Document 07/10/17 14:30 DV [id number] 07/10/17 14:36 DV Document 07/17/17 15:29 DV [id number] 07/17/17 15:30 DV Document 07/24/17 14:52 DV [id number] 07/24/17 14:55 DV 07/10/17 07/17/17 07/24/17 14:30 15:29 14:52 Wound Center Nurse 2 #1 left lateral LE -Time 14:30 15:29 14:53 -Correct Patient Yes Yes Yes -Correct Side, Site, Position Yes Yes Yes -Correct Procedure Yes Yes Yes -Procedure Performed Yes Yes Yes -Type of Procedure Debridement Debridement Debridement -Clinical Debridement Subcutaneous Subcutaneous Subcutaneous -Post Debridement Size (cm) - Length 4.5 3.4 3.4 -Post Debridement Size (cm) - Width 2.6 2.3 2.2 -Post Debridement Size (cm) - Depth 0.2 0.1 0.1 -Total Square Cm 11.70 7.82 7.48 -Wound/Ulcer Outcome Not Healed Not Healed Not Healed -Ulcer Cleansing Rinsed/ Rinsed/ Rinsed/ Irrigated with Irrigated with Irrigated with Saline Saline Saline -Foul Odor after Cleansing No Yes No -Bioengineered Tissue No No -Expiration Date 05/09/22 -Product Lot Number [id number] -Percent Used 100 -Saline Lot Number [id number] -Cetacaine [place] No -Topical Lidocaine (%) 5 -Bleeding Controlled with Pressure Pressure NA -Treatment Response Procedure Procedure Procedure Tolerated Well Tolerated Well Tolerated Well Pain Scale: 0-10 Numeric Is Patient Pain Free? Yes Yes Yes Wound debrided: Left venous leg ulcer Laterality: Left Type of Debridement: Excisional debridement Anesthesia Used: 5% Lidocaine Gel Depth: in the subcutaneous layer Percentage of wound debrided: 100 Instrument Used: 5mm curette Tissue Removed: slough and hypergranulatory tissue Severity: Fat Layer Exposed Amount of bleeding with debridement: Mild Bleeding Controlled with: Pressure Patient tolerated procedure well Epfix was applied after subcutaneous debridement, it was then covered with Adaptic as the wound veil and secured with Steri-Strips, 100% of the at Epifix was used with 0% waste. Patient tolerated the procedure well. Assessment/Plan Active Problems Nonhealing ulcer of left lower extremity with fat layer exposed (Acute) PVD (peripheral vascular disease) (Chronic) Lymphedema (Acute) Assessment: Wound is stable and improving. Plan: I evaluated the patient and discussed the ongoing care plan. The patient did have cellulitis which has has now resolved since treatment with antibiotics. Repeat cultures were done which were negative. Wound was debrided to the subcutaneous tissue today. Patient tolerated well. Epfix was applied after subcutaneous debridement, it was then covered with Adaptic as the wound veil and secured with Steri-Strips, 100% of the at Epifix was used with 0% waste. Patient tolerated the procedure well. Blood work reviewed with patient, pre-albumin was low, discussed increasing her protein intake and drinking premier protein drinks 3 a day, may recheck in the future and if still low possible referral to nutrition therapy. ABIs were done previously and demonstrated right HARRISON 1.15 and left HARRISON 1.32. Educated patient on red flag symptoms of worsening cellulitis that would require urgent medical attention and potential inpatient hospitalization for antibiotics. Patient verbalized understanding of this. Vascular studies demonstrated the following: Valvular competence appears intact within the. proximal deep venous systems bilaterally. The greater saphenous veins appear bilaterally patent and compressible segmentally. Sapheno-femoral junctions are bilaterally competent . Segmental valvular incompetence is noted within the greater saphenous veins bilaterally. The right small saphenous vein is patent and incompetent. The left small saphenous vein is patent and competent. Discussed with patient maximizing oral nutrition to promote wound healing which includes incorporating protein vitamin C into the diet. Epifix was applied today with a 3M 2 layer wrap as ABIs were normal. Patient to follow up in 1 week at wound healing center. This note was generated with [employer] dictation software. It may contain incorrect words, spelling, and punctuation that were not noted in checking the note before signing. Code Visit 150xxx-152xx: 60034 Skin sub graft trnk/arm/leg
--- NOTE | 2017-07-25 09:51 | PN.PCM_ITS ---
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 Status: Acute Current Visit: Yes Code(s): L97.922 - Non-pressure chronic ulcer of unspecified part of left lower leg with fat layer exposed (2) Cellulitis of left lower extremity Status: Acute Current Visit: No Code(s): L03.116 - Cellulitis of left lower limb (3) Lymphedema Status: Acute Current Visit: Yes Code(s): I89.0 - Lymphedema, not elsewhere classified (4) Hypertension Status: Chronic Current Visit: No Code(s): I10 - Essential (primary) hypertension (5) PVD (peripheral vascular disease) Status: Chronic Current Visit: Yes Code(s): I73.9 - Peripheral vascular disease, unspecified Type of Wound Date of Service: 07/24/17 Chief Complaint: Nonhealing ulcer left lower extremity. History of Wound: This is a 77-year-old white female who presents to the wound center today for follow-up of an ulcer of the left lower extremity and cellulitis. She has a past medical history which is significant for hypertension vertigo and peripheral vascular disease. The patient states that her symptom of lower extremity ulceration on the left extremity started approximately 05/15/2017 . She states that she saw her PCP who placed her in an LAVELL boot, which she no longer uses. She states that the smell has improved, the redness is resolving, and the pain is improving as well. She denies any systemic signs of infection. She otherwise denies any fever, chills, nausea, vomiting, shortness of breath, chest pain or pressure, syncope or presyncopal episodes. Progress of Wound: The patient's cellulitis has resolved, wound stable and improving, pain has resolved. - Physical Exam Vital Signs Temp Pulse Resp BP 97.3 F L 73 18 159/78 H 07/24/17 13:49 07/24/17 13:49 07/24/17 13:49 07/24/17 13:49 General: Alert, Oriented x3, Cooperative, No apparent distress HEENT: Atraumatic Oral: Moist Mucosa Cardiovascular: Regular rate Extremities: No edema, Peripheral Pulses Normal Skin: Ulcer/ Wound - Left venous lower extremity ulcer hypergranulatory tissue and slough present Wound Measurements and Assessment WC - Nurse 1 - General Ulcer Measurement Start: 07/10/17 13:45 Freq: Status: Active Protocol: Activity Type Activity Date Activity User E-Sign Co-Sign Detail Recorded Client Recorded Date Recorded By Document 07/24/17 13:49 TM [id number] 07/24/17 14:04 07/24/17 13:49 Wound Center Nurse 1 [Ulcer Assessment Protocol: WC.WD.LOC] #1 left lateral LE -Combined with other wound No -Current Size (cm) - Length 3.5 -Current Size (cm) - Width 2.0 -Current Size (cm) - Depth 0.1 -Total Square Cm 7.00 -Photo Taken No -Epithelialization Small 1-33% -Tunneling No -Undermining/Tunneling No -Circular Undermining No -Classification - Thickness Full Thickness without Exposed Support Structure -Exudate Amt Small (1-33%) -Exudate Type Serosanguineous -Wound Margin Distinct, Outline Attached -Granulation Amt Large (67-100%) -Granulation Quality Red -Slough/Fibrin Yes -Necrosis Amt Small (1-33%) -Necrotic Tissue Type Adherent Slough -Structure Exposed Fascia Fat Layer Exposed -Texture (Kajal-wound Skin Appearance) Scarring -Moisture (Kajal-wound Skin Appearance No Abnormality ) -Color (Kajal-wound Skin Appearance) Erythema Hemosiderin Staining -Temperature (Kajal-wound Skin No Abnormality Appearance) (Pt Warm) -Tenderness on Palpation (Kajal-wound No Skin Appearance) -Ulcer Cleansing cynthia hex -Foul Odor after Cleansing No -Anesthetic Used 5% Lidocaine Gel [Edema Assessment] -Lower Limb Edema Present Yes -Left Calf (cm) 29.0 -Left Ankle (cm) 22.0 - Nurse 2 - General Ulcer CM Notes Start: 07/10/17 13:45 Freq: Status: Active Protocol: Activity Type Activity Date Activity User E-Sign Co-Sign Detail Recorded Client Recorded Date Recorded By Document 07/24/17 14:52 DV [id number] 07/24/17 14:55 DV 07/24/17 14:52 Wound Center Nurse 2 [Procedure/Treatment] #1 left lateral LE -Time 14:53 -Correct Patient Yes -Correct Side, Site, Position Yes -Correct Procedure Yes -Procedure Performed Yes -Type of Procedure Debridement -Clinical Debridement Subcutaneous -Post Debridement Size (cm) - Length 3.4 -Post Debridement Size (cm) - Width 2.2 -Post Debridement Size (cm) - Depth 0.1 -Total Square Cm 7.48 -Wound/Ulcer Outcome Not Healed -Ulcer Cleansing Rinsed/ Irrigated with Saline -Foul Odor after Cleansing No -Expiration Date 05/09/22 -Product Lot Number [id number] -Percent Used 100 -Saline Lot Number [id number] -Topical Lidocaine (%) 5 -Bleeding Controlled with NA -Treatment Response Procedure Tolerated Well [See Physician Procedure note for Specifics] Pain Scale: 0-10 Numeric [Pain] -Is Patient Pain Free? Yes Psych/Mental Status: Normal Affect, Alert and oriented to time, place, person, mood and affect Debridement Note Post-Debridement Measurements/Treatment WC - Nurse 2 - General Ulcer CM Notes Start: 07/10/17 13:45 Freq: Status: Active Protocol: Activity Type Activity Date Activity User E-Sign Co-Sign Detail Recorded Client Recorded Date Recorded By Document 07/10/17 14:30 DV [id number] 07/10/17 14:36 DV Document 07/17/17 15:29 DV [id number] 07/17/17 15:30 DV Document 07/24/17 14:52 DV [id number] 07/24/17 14:55 DV 07/10/17 07/17/17 07/24/17 14:30 15:29 14:52 Wound Center Nurse 2 #1 left lateral LE -Time 14:30 15:29 14:53 -Correct Patient Yes Yes Yes -Correct Side, Site, Position Yes Yes Yes -Correct Procedure Yes Yes Yes -Procedure Performed Yes Yes Yes -Type of Procedure Debridement Debridement Debridement -Clinical Debridement Subcutaneous Subcutaneous Subcutaneous -Post Debridement Size (cm) - Length 4.5 3.4 3.4 -Post Debridement Size (cm) - Width 2.6 2.3 2.2 -Post Debridement Size (cm) - Depth 0.2 0.1 0.1 -Total Square Cm 11.70 7.82 7.48 -Wound/Ulcer Outcome Not Healed Not Healed Not Healed -Ulcer Cleansing Rinsed/ Rinsed/ Rinsed/ Irrigated with Irrigated with Irrigated with Saline Saline Saline -Foul Odor after Cleansing No Yes No -Bioengineered Tissue No No -Expiration Date 05/09/22 -Product Lot Number [id number] -Percent Used 100 -Saline Lot Number [id number] -Cetacaine [place] No -Topical Lidocaine (%) 5 -Bleeding Controlled with Pressure Pressure NA -Treatment Response Procedure Procedure Procedure Tolerated Well Tolerated Well Tolerated Well Pain Scale: 0-10 Numeric Is Patient Pain Free? Yes Yes Yes Wound debrided: Left venous leg ulcer Laterality: Left Type of Debridement: Excisional debridement Anesthesia Used: 5% Lidocaine Gel Depth: in the subcutaneous layer Percentage of wound debrided: 100 Instrument Used: 5mm curette Tissue Removed: slough and hypergranulatory tissue Severity: Fat Layer Exposed Amount of bleeding with debridement: Mild Bleeding Controlled with: Pressure Patient tolerated procedure well Epfix was applied after subcutaneous debridement, it was then covered with Adaptic as the wound veil and secured with Steri-Strips, 100% of the at Epifix was used with 0% waste. Patient tolerated the procedure well. Assessment/Plan Active Problems Nonhealing ulcer of left lower extremity with fat layer exposed (Acute) PVD (peripheral vascular disease) (Chronic) Lymphedema (Acute) Assessment: Wound is stable and improving. Plan: I evaluated the patient and discussed the ongoing care plan. The patient did have cellulitis which has has now resolved since treatment with antibiotics. Repeat cultures were done which were negative. Wound was debrided to the subcutaneous tissue today. Patient tolerated well. Epfix was applied after subcutaneous debridement, it was then covered with Adaptic as the wound veil and secured with Steri-Strips, 100% of the at Epifix was used with 0% waste. Patient tolerated the procedure well. Blood work reviewed with patient , pre-albumin was low, discussed increasing her protein intake and drinking premier protein drinks 3 a day, may recheck in the future and if still low possible referral to nutrition therapy. ABIs were done previously and demonstrated right HARRISON 1.15 and left HARRISON 1.32. Educated patient on red flag symptoms of worsening cellulitis that would require urgent medical attention and potential inpatient hospitalization for antibiotics. Patient verbalized understanding of this. Vascular studies demonstrated the following: Valvular competence appears intact within the. proximal deep venous systems bilaterally. The greater saphenous veins appear bilaterally patent and compressible segmentally. Sapheno-femoral junctions are bilaterally competent . Segmental valvular incompetence is noted within the greater saphenous veins bilaterally. The right small saphenous vein is patent and incompetent. The left small saphenous vein is patent and competent. Discussed with patient maximizing oral nutrition to promote wound healing which includes incorporating protein vitamin C into the diet. Epifix was applied today with a 3M 2 layer wrap as ABIs were normal. Patient to follow up in 1 week at wound healing center. This note was generated with [employer] dictation software. It may contain incorrect words, spelling, and punctuation that were not noted in checking the note before signing. Code Visit 150xxx-152xx: 50024 Skin sub graft trnk/arm/leg
[2017-07-31 14:03] VITALS: BP 142/83; PULSE 66; RESP 16; TEMP 36.8; BMI 22.4
--- NOTE | 2017-07-31 17:19 | PCM.WC.PN ---
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 Status: Acute Code(s): L97.922 - Non-pressure chronic ulcer of unspecified part of left lower leg with fat layer exposed (2) Cellulitis of left lower extremity Status: Acute Code(s): L03.116 - Cellulitis of left lower limb (3) Lymphedema Status: Acute Code(s): I89.0 - Lymphedema, not elsewhere classified (4) Hypertension Status: Chronic Code(s): I10 - Essential (primary) hypertension (5) PVD (peripheral vascular disease) Status: Chronic Code(s): I73.9 - Peripheral vascular disease, unspecified Type of Wound Date of Service: 07/31/17 Chief Complaint: Nonhealing ulcer left lower extremity. History of Wound: This is a 77-year-old white female who presents to the wound center today for follow-up of an ulcer of the left lower extremity and cellulitis. She has a past medical history which is significant for hypertension vertigo and peripheral vascular disease. The patient states that her symptom of lower extremity ulceration on the left extremity started approximately 05/15/2017 . She states that she saw her PCP who placed her in an LAVELL boot, which she no longer uses. She states that the smell has improved, the redness is resolving, and the pain is improving as well. She denies any systemic signs of infection. She otherwise denies any fever, chills, nausea, vomiting, shortness of breath, chest pain or pressure, syncope or presyncopal episodes. Progress of Wound: The patient's cellulitis has resolved, wound stable and improving since use of Epifix, pain has resolved. - Physical Exam Vital Signs Temp Pulse Resp BP 98.2 F 66 16 142/83 H 07/31/17 14:03 07/31/17 14:03 07/31/17 14:03 07/31/17 14:03 General: Alert, Oriented x3, Cooperative, No apparent distress HEENT: Atraumatic Oral: Moist Mucosa Cardiovascular: Regular rate Extremities: No clubbing, No cyanosis, No edema, Peripheral Pulses Normal Skin: Ulcer/ Wound - Left lower extremity ulcer present with granular wound bed and moderate amount of slough present prior to debridement, no exudate or foul smell, no drainage at this time. Psych/Mental Status: Normal Affect, Alert and oriented to time, place, person, mood and affect Debridement Note Post-Debridement Measurements/Treatment WC - Nurse 2 - General Ulcer CM Notes Start: 07/10/17 13:45 Freq: Status: Active Protocol: Activity Type Activity Date Activity User E-Sign Co-Sign Detail Recorded Client Recorded Date Recorded By Document 07/10/17 14:30 DV [id number] 07/10/17 14:36 DV Document 07/17/17 15:29 DV [id number] 07/17/17 15:30 DV Document 07/24/17 14:52 DV [id number] 07/24/17 14:55 DV Document 07/31/17 14:51 DV [id number] 07/31/17 15:27 DV 07/10/17 07/17/17 07/24/17 14:30 15:29 14:52 Wound Center Nurse 2 #1 left lateral LE -Time 14:30 15:29 14:53 -Correct Patient Yes Yes Yes -Correct Side, Site, Position Yes Yes Yes -Correct Procedure Yes Yes Yes -Procedure Performed Yes Yes Yes -Type of Procedure Debridement Debridement Debridement -Clinical Debridement Subcutaneous Subcutaneous Subcutaneous -Post Debridement Size (cm) - Length 4.5 3.4 3.4 -Post Debridement Size (cm) - Width 2.6 2.3 2.2 -Post Debridement Size (cm) - Depth 0.2 0.1 0.1 -Total Square Cm 11.70 7.82 7.48 -Wound/Ulcer Outcome Not Healed Not Healed Not Healed -Ulcer Cleansing Rinsed/ Rinsed/ Rinsed/ Irrigated with Irrigated with Irrigated with Saline Saline Saline -Foul Odor after Cleansing No Yes No -Bioengineered Tissue No No -Type of bioengineered Tissue -Expiration Date 05/09/22 -Product Lot Number [id number] -Percent Used 100 -Saline Lot Number [id number] -Cetacaine [place] No -Topical Lidocaine (%) 5 -Bleeding Controlled with Pressure Pressure NA -Treatment Response Procedure Procedure Procedure Tolerated Well Tolerated Well Tolerated Well Pain Scale: 0-10 Numeric Is Patient Pain Free? Yes Yes Yes 07/31/17 14:51 Wound Center Nurse 2 #1 left lateral LE -Time 15:13 -Correct Patient Yes -Correct Side, Site, Position Yes -Correct Procedure Yes -Procedure Performed Yes -Type of Procedure Debridement -Clinical Debridement Subcutaneous -Post Debridement Size (cm) - Length 3.0 -Post Debridement Size (cm) - Width 1.9 -Post Debridement Size (cm) - Depth 0.1 -Total Square Cm 5.70 -Wound/Ulcer Outcome Not Healed -Ulcer Cleansing Rinsed/ Irrigated with Saline -Foul Odor after Cleansing No -Bioengineered Tissue Yes -Type of bioengineered Tissue EPIFIX -Expiration Date 05/09/22 -Product Lot Number [id number] -Percent Used 100 -Saline Lot Number [id number] -Cetacaine [place] -Topical Lidocaine (%) 4 -Bleeding Controlled with Pressure -Treatment Response Procedure Tolerated Well Pain Scale: 0-10 Numeric Is Patient Pain Free? Yes Wound debrided: Left lower extremity ulcer Laterality: Left Type of Debridement: Excisional debridement Anesthesia Used: 4% Lidocaine Solution Depth: in the subcutaneous layer Percentage of wound debrided: 100 Instrument Used: 5mm curette Tissue Removed: Slough and hyperkeratotic wound edges Severity: Fat Layer Exposed Amount of bleeding with debridement: Mild Bleeding Controlled with: Pressure Patient tolerated procedure well Epfix was applied after subcutaneous debridement, it was then covered with Adaptic as the wound veil and secured with Steri-Strips, 100% of the at Epifix was used with 0% waste. Patient tolerated the procedure well. Assessment/Plan Assessment: Wound is stable and improving. Plan: I evaluated the patient and discussed the ongoing care plan. The patient did have cellulitis which has has now resolved since treatment with antibiotics. Repeat cultures were done which were negative. Wound was debrided to the subcutaneous tissue today. Patient tolerated well. Epfix was applied after subcutaneous debridement, it was then covered with Adaptic as the wound veil and secured with Steri-Strips, 100% of the at Epifix was used with 0% waste. Patient tolerated the procedure well. Blood work reviewed with patient, pre-albumin was low, discussed increasing her protein intake and drinking premier protein drinks 3 a day, may recheck in the future and if still low possible referral to nutrition therapy. ABIs were done previously and demonstrated right HARRISON 1.15 and left HARRISON 1.32. Educated patient on red flag symptoms of worsening cellulitis that would require urgent medical attention and potential inpatient hospitalization for antibiotics. Patient verbalized understanding of this. Vascular studies demonstrated the following: Valvular competence appears intact within the. proximal deep venous systems bilaterally. The greater saphenous veins appear bilaterally patent and compressible segmentally. Sapheno-femoral junctions are bilaterally competent . Segmental valvular incompetence is noted within the greater saphenous veins bilaterally. The right small saphenous vein is patent and incompetent. The left small saphenous vein is patent and competent. Discussed with patient maximizing oral nutrition to promote wound healing which includes incorporating protein vitamin C into the diet. Epifix was applied today with a 3M 2 layer wrap as ABIs were normal. Patient to follow up in 2 week at wound healing center in 1 week for nurse visit. This note was generated with [employer] dictation software. It may contain incorrect words, spelling, and punctuation that were not noted in checking the note before signing. Code Visit 150xxx-152xx: [id number] Skin sub graft trnk/arm/leg
--- NOTE | 2017-08-05 17:28 | PN.PCM_ITS ---
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 Status: Acute Code(s): L97.922 - Non-pressure chronic ulcer of unspecified part of left lower leg with fat layer exposed (2) Cellulitis of left lower extremity Status: Acute Code(s): L03.116 - Cellulitis of left lower limb (3) Lymphedema Status: Acute Code(s): I89.0 - Lymphedema, not elsewhere classified (4) Hypertension Status: Chronic Code(s): I10 - Essential (primary) hypertension (5) PVD (peripheral vascular disease) Status: Chronic Code(s): I73.9 - Peripheral vascular disease, unspecified Type of Wound Date of Service: 07/31/17 Chief Complaint: Nonhealing ulcer left lower extremity. History of Wound: This is a 77-year-old white female who presents to the wound center today for follow-up of an ulcer of the left lower extremity and cellulitis. She has a past medical history which is significant for hypertension vertigo and peripheral vascular disease. The patient states that her symptom of lower extremity ulceration on the left extremity started approximately 05/15/2017 . She states that she saw her PCP who placed her in an LAVELL boot, which she no longer uses. She states that the smell has improved, the redness is resolving, and the pain is improving as well. She denies any systemic signs of infection. She otherwise denies any fever, chills, nausea, vomiting, shortness of breath, chest pain or pressure, syncope or presyncopal episodes. Progress of Wound: The patient's cellulitis has resolved, wound stable and improving since use of Epifix, pain has resolved. - Physical Exam Vital Signs Temp Pulse Resp BP 98.2 F 66 16 142/83 H 07/31/17 14:03 07/31/17 14:03 07/31/17 14:03 07/31/17 14:03 General: Alert, Oriented x3, Cooperative, No apparent distress HEENT: Atraumatic Oral: Moist Mucosa Cardiovascular: Regular rate Extremities: No clubbing, No cyanosis, No edema, Peripheral Pulses Normal Skin: Ulcer/ Wound - Left lower extremity ulcer present with granular wound bed and moderate amount of slough present prior to debridement, no exudate or foul smell, no drainage at this time. Psych/Mental Status: Normal Affect, Alert and oriented to time, place, person, mood and affect Debridement Note Post-Debridement Measurements/Treatment WC - Nurse 2 - General Ulcer CM Notes Start: 07/10/17 13:45 Freq: Status: Active Protocol: Activity Type Activity Date Activity User E-Sign Co-Sign Detail Recorded Client Recorded Date Recorded By Document 07/10/17 14:30 DV [id number] 07/10/17 14:36 DV Document 07/17/17 15:29 DV [id number] 07/17/17 15:30 DV Document 07/24/17 14:52 DV [id number] 07/24/17 14:55 DV Document 07/31/17 14:51 DV [id number] 07/31/17 15:27 DV 07/10/17 07/17/17 07/24/17 14:30 15:29 14:52 Wound Center Nurse 2 #1 left lateral LE -Time 14:30 15:29 14:53 -Correct Patient Yes Yes Yes -Correct Side, Site, Position Yes Yes Yes -Correct Procedure Yes Yes Yes -Procedure Performed Yes Yes Yes -Type of Procedure Debridement Debridement Debridement -Clinical Debridement Subcutaneous Subcutaneous Subcutaneous -Post Debridement Size (cm) - Length 4.5 3.4 3.4 -Post Debridement Size (cm) - Width 2.6 2.3 2.2 -Post Debridement Size (cm) - Depth 0.2 0.1 0.1 -Total Square Cm 11.70 7.82 7.48 -Wound/Ulcer Outcome Not Healed Not Healed Not Healed -Ulcer Cleansing Rinsed/ Rinsed/ Rinsed/ Irrigated with Irrigated with Irrigated with Saline Saline Saline -Foul Odor after Cleansing No Yes No -Bioengineered Tissue No No -Type of bioengineered Tissue -Expiration Date 05/09/22 -Product Lot Number [id number] -Percent Used 100 -Saline Lot Number [id number] -Cetacaine [place] No -Topical Lidocaine (%) 5 -Bleeding Controlled with Pressure Pressure NA -Treatment Response Procedure Procedure Procedure Tolerated Well Tolerated Well Tolerated Well Pain Scale: 0-10 Numeric Is Patient Pain Free? Yes Yes Yes 07/31/17 14:51 Wound Center Nurse 2 #1 left lateral LE -Time 15:13 -Correct Patient Yes -Correct Side, Site, Position Yes -Correct Procedure Yes -Procedure Performed Yes -Type of Procedure Debridement -Clinical Debridement Subcutaneous -Post Debridement Size (cm) - Length 3.0 -Post Debridement Size (cm) - Width 1.9 -Post Debridement Size (cm) - Depth 0.1 -Total Square Cm 5.70 -Wound/Ulcer Outcome Not Healed -Ulcer Cleansing Rinsed/ Irrigated with Saline -Foul Odor after Cleansing No -Bioengineered Tissue Yes -Type of bioengineered Tissue EPIFIX -Expiration Date 05/09/22 -Product Lot Number [id number] -Percent Used 100 -Saline Lot Number [id number] -Cetacaine [place] -Topical Lidocaine (%) 4 -Bleeding Controlled with Pressure -Treatment Response Procedure Tolerated Well Pain Scale: 0-10 Numeric Is Patient Pain Free? Yes Wound debrided: Left lower extremity ulcer Laterality: Left Type of Debridement: Excisional debridement Anesthesia Used: 4% Lidocaine Solution Depth: in the subcutaneous layer Percentage of wound debrided: 100 Instrument Used: 5mm curette Tissue Removed: Slough and hyperkeratotic wound edges Severity: Fat Layer Exposed Amount of bleeding with debridement: Mild Bleeding Controlled with: Pressure Patient tolerated procedure well Epfix was applied after subcutaneous debridement, it was then covered with Adaptic as the wound veil and secured with Steri-Strips, 100% of the at Epifix was used with 0% waste. Patient tolerated the procedure well. Assessment/Plan Assessment: Wound is stable and improving. Plan: I evaluated the patient and discussed the ongoing care plan. The patient did have cellulitis which has has now resolved since treatment with antibiotics. Repeat cultures were done which were negative. Wound was debrided to the subcutaneous tissue today. Patient tolerated well. Epfix was applied after subcutaneous debridement, it was then covered with Adaptic as the wound veil and secured with Steri-Strips, 100% of the at Epifix was used with 0% waste. Patient tolerated the procedure well. Blood work reviewed with patient , pre-albumin was low, discussed increasing her protein intake and drinking premier protein drinks 3 a day, may recheck in the future and if still low possible referral to nutrition therapy. ABIs were done previously and demonstrated right HARRISON 1.15 and left HARRISON 1.32. Educated patient on red flag symptoms of worsening cellulitis that would require urgent medical attention and potential inpatient hospitalization for antibiotics. Patient verbalized understanding of this. Vascular studies demonstrated the following: Valvular competence appears intact within the. proximal deep venous systems bilaterally. The greater saphenous veins appear bilaterally patent and compressible segmentally. Sapheno-femoral junctions are bilaterally competent . Segmental valvular incompetence is noted within the greater saphenous veins bilaterally. The right small saphenous vein is patent and incompetent. The left small saphenous vein is patent and competent. Discussed with patient maximizing oral nutrition to promote wound healing which includes incorporating protein vitamin C into the diet. Epifix was applied today with a 3M 2 layer wrap as ABIs were normal. Patient to follow up in 2 week at wound healing center in 1 week for nurse visit. This note was generated with [employer] dictation software. It may contain incorrect words, spelling, and punctuation that were not noted in checking the note before signing. Code Visit 150xxx-152xx: [id number] Skin sub graft trnk/arm/leg
== END 2017-08-06 23:59 ==
LOC: WC 14:00
PROVIDERS: Visit Provider Nurse Practitioner Family
DX: I73.9 Peripheral vascular disease, unspecified (principal); L03.116 Cellulitis of left lower limb; L97.822 Non-pressure chronic ulcer of other part of left lower leg with fat layer exposed; I10 Essential (primary) hypertension; I89.0 Lymphedema, not elsewhere classified; R09.89 Other specified symptoms and signs involving the circulatory and respiratory systems
CPT/HCPCS: 11042; 15271; 29581; 93970; 99212; Q4131; G0463

== ENCOUNTER 2017-09-04 13:30 | Outpatient (RCR) | payer MEDICARE, SELFPAY ==
[2017-08-07 00:47] VITALS: BP 145/96; PULSE 66; RESP 16; TEMP 36.8; BMI 22.4
[2017-08-07 13:20] VITALS: BP 144/89; PULSE 72; RESP 16; TEMP 36.1; BMI 22.4
[2017-08-14 13:40] VITALS: BP 108/70; PULSE 68; RESP 20; TEMP 36.4; BMI 22.4
--- NOTE | 2017-08-14 15:02 | PCM.WC.PN ---
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 Status: Acute Current Visit: Yes Code(s): L97.922 - Non-pressure chronic ulcer of unspecified part of left lower leg with fat layer exposed (2) Lymphedema Status: Acute Current Visit: Yes Code(s): I89.0 - Lymphedema, not elsewhere classified (3) Hypertension Status: Chronic Current Visit: Yes Code(s): I10 - Essential (primary) hypertension (4) PVD (peripheral vascular disease) Status: Chronic Current Visit: Yes Code(s): I73.9 - Peripheral vascular disease, unspecified Type of Wound Date of Service: 08/14/17 Chief Complaint: Nonhealing ulcer left lower extremity. History of Wound: This is a 77-year-old white female who presents to the wound center today for follow-up of an ulcer of the left lower extremity and cellulitis. She has a past medical history which is significant for hypertension vertigo and peripheral vascular disease. The patient states that her symptom of lower extremity ulceration on the left extremity started approximately 05/15/2017 . She states that she saw her PCP who placed her in an LAVELL boot, which she no longer uses. She states that the smell has improved, the redness is resolving, and the pain is improving as well. She denies any systemic signs of infection. She otherwise denies any fever, chills, nausea, vomiting, shortness of breath, chest pain or pressure, syncope or presyncopal episodes. Progress of Wound: wound stable and improving since use of Epifix, pain has resolved. - Physical Exam Vital Signs Temp Pulse Resp BP 97.5 F L 68 20 H 108/70 08/14/17 13:40 08/14/17 13:40 08/14/17 13:40 08/14/17 13:40 General: Alert, Oriented x3, Cooperative, No apparent distress HEENT: Atraumatic Cardiovascular: Regular rate Extremities: No edema, Capillary Refill Less than 3 Seconds, Peripheral Pulses Normal Skin: Ulcer/ Wound - Left lower extremity nonhealing ulcer on the lateral aspect, no redness, drainage, or foul-smelling exudate present, no pain. Wound Measurements and Assessment WC - Nurse 1 - General Ulcer Measurement Start: 08/07/17 13:19 Freq: Status: Active Protocol: Activity Type Activity Date Activity User E-Sign Co-Sign Detail Recorded Client Recorded Date Recorded By Document 08/14/17 13:40 SEYMOUR [id number] 08/14/17 13:55 SEYMOUR 08/14/17 13:40 Wound Center Nurse 1 [Ulcer Assessment] #1 left lateral LE -Combined with other wound No -Current Size (cm) - Length 1.5 -Current Size (cm) - Width 1.0 -Current Size (cm) - Depth 0.1 -Total Square Cm 1.50 -Date of Last Picture (Recall this 07/31/17 field) -Photo Taken No -Epithelialization Medium 34-66% -Tunneling No -Undermining/Tunneling No -Circular Undermining No -Classification - Thickness Full Thickness without Exposed Support Structure -Exudate Amt Small (1-33%) -Exudate Type Serosanguineous -Wound Margin Distinct, Outline Attached -Granulation Amt Small (1-33%) -Granulation Quality Pale [place] -Slough/Fibrin Yes -Necrosis Amt None Present (0 %) -Necrotic Tissue Type Adherent Slough -Structure Exposed N/A -Texture ([place]aj[place]-wound Skin Appearance) No Abnormality -Moisture (Kajal-wound Skin Appearance No Abnormality ) Dry/Scaly -Color (Kajal-wound Skin Appearance) No Abnormality -Temperature (Kajal-wound Skin No Abnormality Appearance) (Pt Warm) -Tenderness on Palpation (Kajal-wound No Skin Appearance) -Ulcer Cleansing Rinsed/ Irrigated with Saline -Foul Odor after Cleansing No -Anesthetic Used 4% Lidocaine Solution 5% Lidocaine Gel [Edema Assessment] -Lower Limb Edema Present No -Left Calf (cm) 30.0 -Left Ankle (cm) 21.0 WC - Nurse 2 - General Ulcer CM Notes Start: 08/07/17 13:19 Freq: Status: Active Protocol: Activity Type Activity Date Activity User E-Sign Co-Sign Detail Recorded Client Recorded Date Recorded By Document 08/14/17 14:06 TRISTEN [id number] 08/14/17 14:17 DV 08/14/17 14:06 Wound Center Nurse 2 [Procedure/Treatment] #1 left lateral LE -Time 14:06 -Correct Patient Yes -Correct Side, Site, Position Yes -Correct Procedure Yes -Procedure Performed Yes -Type of Procedure Debridement -Clinical Debridement Subcutaneous -Post Debridement Size (cm) - Length 2.0 -Post Debridement Size (cm) - Width 1.0 -Post Debridement Size (cm) - Depth 0.1 -Total Square Cm 2.00 -Wound/Ulcer Outcome Not Healed -Ulcer Cleansing Rinsed/ Irrigated with Saline -Foul Odor after Cleansing No -Bioengineered Tissue Yes -Type of bioengineered Tissue EPIFIX -Expiration Date 05/09/22 -Product Lot Number [id number] -Percent Used 100 -Saline Lot Number [id number] -Topical Lidocaine (%) 4 -Bleeding Controlled with Pressure -Treatment Response Procedure Tolerated Well [See Physician Procedure note for Specifics] Pain Scale: 0-10 Numeric [Pain] -Is Patient Pain Free? Yes Psych/Mental Status: Normal Affect, Alert and oriented to time, place, person, mood and affect Debridement Note Post-Debridement Measurements/Treatment WC - Nurse 2 - General Ulcer CM Notes Start: 08/07/17 13:19 Freq: Status: Active Protocol: Activity Type Activity Date Activity User E-Sign Co-Sign Detail Recorded Client Recorded Date Recorded By Document 08/14/17 14:06 DV [id number] 08/14/17 14:17 DV 08/14/17 14:06 Wound Center Nurse 2 #1 left lateral LE -Time 14:06 -Correct Patient Yes -Correct Side, Site, Position Yes -Correct Procedure Yes -Procedure Performed Yes -Type of Procedure Debridement -Clinical Debridement Subcutaneous -Post Debridement Size (cm) - Length 2.0 -Post Debridement Size (cm) - Width 1.0 -Post Debridement Size (cm) - Depth 0.1 -Total Square Cm 2.00 -Wound/Ulcer Outcome Not Healed -Ulcer Cleansing Rinsed/ Irrigated with Saline -Foul Odor after Cleansing No -Bioengineered Tissue Yes -Type of bioengineered Tissue EPIFIX -Expiration Date 05/09/22 -Product Lot Number [id number] -Percent Used 100 -Saline Lot Number [id number] -Topical Lidocaine (%) 4 -Bleeding Controlled with Pressure -Treatment Response Procedure Tolerated Well Pain Scale: 0-10 Numeric Is Patient Pain Free? Yes Wound debrided: Nonhealing ulcer present left lower extremity Laterality: Left Type of Debridement: Excisional debridement Anesthesia Used: 5% Lidocaine Gel Depth: Down to and including healthy tissue, in the subcutaneous layer Percentage of wound debrided: 100 Instrument Used: 5mm curette Tissue Removed: Slough and hyper granular tissue Severity: Fat Layer Exposed Amount of bleeding with debridement: Mild Bleeding Controlled with: Pressure Patient tolerated procedure well Epfix #3 was applied after subcutaneous debridement, it was then covered with the wound veil and secured with Steri-Strips, a thin layer of hydrogel was applied, 100% of the at Epifix was used with 0% waste. Patient tolerated the procedure well. Assessment/Plan Active Problems Nonhealing ulcer of left lower extremity with fat layer exposed (Acute) PVD (peripheral vascular disease) (Chronic) Hypertension (Chronic) Lymphedema (Acute) Assessment: Wound is stable and improving. Plan: I evaluated the patient and discussed the ongoing care plan. The patient did have cellulitis which has has now resolved since treatment with antibiotics. Repeat cultures were done which were negative. Wound was debrided to the subcutaneous tissue today. Patient tolerated well. Epfix #3 was applied after subcutaneous debridement, it was then covered with the wound veil and secured with Steri-Strips, a thin layer hydrogel was applied, 100% of the at Epifix was used with 0% waste. Patient tolerated the procedure well. Blood work reviewed with patient, pre-albumin was low, discussed increasing her protein intake and drinking premier protein drinks 3 a day, may recheck in the future and if still low possible referral to nutrition therapy. ABIs were done previously and demonstrated right HARRISON 1.15 and left HARRISON 1.32. Educated patient on red flag symptoms of worsening cellulitis that would require urgent medical attention and potential inpatient hospitalization for antibiotics. Patient verbalized understanding of this. Vascular studies demonstrated the following: Valvular competence appears intact within the. proximal deep venous systems bilaterally. The greater saphenous veins appear bilaterally patent and compressible segmentally. Sapheno-femoral junctions are bilaterally competent . Segmental valvular incompetence is noted within the greater saphenous veins bilaterally. The right small saphenous vein is patent and incompetent. The left small saphenous vein is patent and competent. Discussed with patient maximizing oral nutrition to promote wound healing which includes incorporating protein vitamin C into the diet. Epifix was applied today with a 3M 2 layer wrap as ABIs were normal. Patient to follow up in 2 week at wound healing center in 1 week for nurse visit. This note was generated with [employer] dictation software. It may contain incorrect words, spelling, and punctuation that were not noted in checking the note before signing. Code Visit 150xxx-152xx: [id number] Skin sub graft trnk/arm/leg
--- NOTE | 2017-08-15 15:07 | PN.PCM_ITS ---
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 Status: Acute Current Visit: Yes Code(s): L97.922 - Non-pressure chronic ulcer of unspecified part of left lower leg with fat layer exposed (2) Lymphedema Status: Acute Current Visit: Yes Code(s): I89.0 - Lymphedema, not elsewhere classified (3) Hypertension Status: Chronic Current Visit: Yes Code(s): I10 - Essential (primary) hypertension (4) PVD (peripheral vascular disease) Status: Chronic Current Visit: Yes Code(s): I73.9 - Peripheral vascular disease, unspecified Type of Wound Date of Service: 08/14/17 Chief Complaint: Nonhealing ulcer left lower extremity. History of Wound: This is a 77-year-old white female who presents to the wound center today for follow-up of an ulcer of the left lower extremity and cellulitis. She has a past medical history which is significant for hypertension vertigo and peripheral vascular disease. The patient states that her symptom of lower extremity ulceration on the left extremity started approximately 05/15/2017 . She states that she saw her PCP who placed her in an LAVELL boot, which she no longer uses. She states that the smell has improved, the redness is resolving, and the pain is improving as well. She denies any systemic signs of infection. She otherwise denies any fever, chills, nausea, vomiting, shortness of breath, chest pain or pressure, syncope or presyncopal episodes. Progress of Wound: wound stable and improving since use of Epifix, pain has resolved. - Physical Exam Vital Signs Temp Pulse Resp BP 97.5 F L 68 20 H 108/70 08/14/17 13:40 08/14/17 13:40 08/14/17 13:40 08/14/17 13:40 General: Alert, Oriented x3, Cooperative, No apparent distress HEENT: Atraumatic Cardiovascular: Regular rate Extremities: No edema, Capillary Refill Less than 3 Seconds, Peripheral Pulses Normal Skin: Ulcer/ Wound - Left lower extremity nonhealing ulcer on the lateral aspect , no redness, drainage, or foul-smelling exudate present, no pain. Wound Measurements and Assessment WC - Nurse 1 - General Ulcer Measurement Start: 08/07/17 13:19 Freq: Status: Active Protocol: Activity Type Activity Date Activity User E-Sign Co-Sign Detail Recorded Client Recorded Date Recorded By Document 08/14/17 13:40 SEYMOUR [id number] 08/14/17 13:55 SEYMOUR 08/14/17 13:40 Wound Center Nurse 1 [Ulcer Assessment] #1 left lateral LE -Combined with other wound No -Current Size (cm) - Length 1.5 -Current Size (cm) - Width 1.0 -Current Size (cm) - Depth 0.1 -Total Square Cm 1.50 -Date of Last Picture (Recall this 07/31/17 field) -Photo Taken No -Epithelialization Medium 34-66% -Tunneling No -Undermining/Tunneling No -Circular Undermining No -Classification - Thickness Full Thickness without Exposed Support Structure -Exudate Amt Small (1-33%) -Exudate Type Serosanguineous -Wound Margin Distinct, Outline Attached -Granulation Amt Small (1-33%) -Granulation Quality Pale Chicken -Slough/Fibrin Yes -Necrosis Amt None Present (0 %) -Necrotic Tissue Type Adherent Slough -Structure Exposed N/A -Texture (Kajal-wound Skin Appearance) No Abnormality -Moisture (Kajal-wound Skin Appearance No Abnormality ) Dry/Scaly -Color (Kajal-wound Skin Appearance) No Abnormality -Temperature (Kajal-wound Skin No Abnormality Appearance) (Pt Warm) -Tenderness on Palpation (Kajal-wound No Skin Appearance) -Ulcer Cleansing Rinsed/ Irrigated with Saline -Foul Odor after Cleansing No -Anesthetic Used 4% Lidocaine Solution 5% Lidocaine Gel [Edema Assessment] -Lower Limb Edema Present No -Left Calf (cm) 30.0 -Left Ankle (cm) 21.0 WC - Nurse 2 - General Ulcer CM Notes Start: 08/07/17 13:19 Freq: Status: Active Protocol: Activity Type Activity Date Activity User E-Sign Co-Sign Detail Recorded Client Recorded Date Recorded By Document 08/14/17 14:06 TRISTEN [id number] 08/14/17 14:17 DV 08/14/17 14:06 Wound Center Nurse 2 [Procedure/Treatment] #1 left lateral LE -Time 14:06 -Correct Patient Yes -Correct Side, Site, Position Yes -Correct Procedure Yes -Procedure Performed Yes -Type of Procedure Debridement -Clinical Debridement Subcutaneous -Post Debridement Size (cm) - Length 2.0 -Post Debridement Size (cm) - Width 1.0 -Post Debridement Size (cm) - Depth 0.1 -Total Square Cm 2.00 -Wound/Ulcer Outcome Not Healed -Ulcer Cleansing Rinsed/ Irrigated with Saline -Foul Odor after Cleansing No -Bioengineered Tissue Yes -Type of bioengineered Tissue EPIFIX -Expiration Date 05/09/22 -Product Lot Number [id number] -Percent Used 100 -Saline Lot Number [id number] -Topical Lidocaine (%) 4 -Bleeding Controlled with Pressure -Treatment Response Procedure Tolerated Well [See Physician Procedure note for Specifics] Pain Scale: 0-10 Numeric [Pain] -Is Patient Pain Free? Yes Psych/Mental Status: Normal Affect, Alert and oriented to time, place, person, mood and affect Debridement Note Post-Debridement Measurements/Treatment WC - Nurse 2 - General Ulcer CM Notes Start: 08/07/17 13:19 Freq: Status: Active Protocol: Activity Type Activity Date Activity User E-Sign Co-Sign Detail Recorded Client Recorded Date Recorded By Document 08/14/17 14:06 DV [id number] 08/14/17 14:17 DV 08/14/17 14:06 Wound Center Nurse 2 #1 left lateral LE -Time 14:06 -Correct Patient Yes -Correct Side, Site, Position Yes -Correct Procedure Yes -Procedure Performed Yes -Type of Procedure Debridement -Clinical Debridement Subcutaneous -Post Debridement Size (cm) - Length 2.0 -Post Debridement Size (cm) - Width 1.0 -Post Debridement Size (cm) - Depth 0.1 -Total Square Cm 2.00 -Wound/Ulcer Outcome Not Healed -Ulcer Cleansing Rinsed/ Irrigated with Saline -Foul Odor after Cleansing No -Bioengineered Tissue Yes -Type of bioengineered Tissue EPIFIX -Expiration Date 05/09/22 -Product Lot Number [id number] -Percent Used 100 -Saline Lot Number [id number] -Topical Lidocaine (%) 4 -Bleeding Controlled with Pressure -Treatment Response Procedure Tolerated Well Pain Scale: 0-10 Numeric Is Patient Pain Free? Yes Wound debrided: Nonhealing ulcer present left lower extremity Laterality: Left Type of Debridement: Excisional debridement Anesthesia Used: 5% Lidocaine Gel Depth: Down to and including healthy tissue, in the subcutaneous layer Percentage of wound debrided: 100 Instrument Used: 5mm curette Tissue Removed: Slough and hyper granular tissue Severity: Fat Layer Exposed Amount of bleeding with debridement: Mild Bleeding Controlled with: Pressure Patient tolerated procedure well Epfix #3 was applied after subcutaneous debridement, it was then covered with the wound veil and secured with Steri-Strips, a thin layer of hydrogel was applied, 100% of the at Epifix was used with 0% waste. Patient tolerated the procedure well. Assessment/Plan Active Problems Nonhealing ulcer of left lower extremity with fat layer exposed (Acute) PVD (peripheral vascular disease) (Chronic) Hypertension (Chronic) Lymphedema (Acute) Assessment: Wound is stable and improving. Plan: I evaluated the patient and discussed the ongoing care plan. The patient did have cellulitis which has has now resolved since treatment with antibiotics. Repeat cultures were done which were negative. Wound was debrided to the subcutaneous tissue today. Patient tolerated well. Epfix #3 was applied after subcutaneous debridement, it was then covered with the wound veil and secured with Steri-Strips, a thin layer hydrogel was applied, 100% of the at Epifix was used with 0% waste. Patient tolerated the procedure well. Blood work reviewed with patient, pre-albumin was low, discussed increasing her protein intake and drinking premier protein drinks 3 a day, may recheck in the future and if still low possible referral to nutrition therapy. ABIs were done previously and demonstrated right HARRISON 1.15 and left HARRISON 1.32. Educated patient on red flag symptoms of worsening cellulitis that would require urgent medical attention and potential inpatient hospitalization for antibiotics. Patient verbalized understanding of this. Vascular studies demonstrated the following: Valvular competence appears intact within the. proximal deep venous systems bilaterally. The greater saphenous veins appear bilaterally patent and compressible segmentally. Sapheno-femoral junctions are bilaterally competent . Segmental valvular incompetence is noted within the greater saphenous veins bilaterally. The right small saphenous vein is patent and incompetent. The left small saphenous vein is patent and competent. Discussed with patient maximizing oral nutrition to promote wound healing which includes incorporating protein vitamin C into the diet. Epifix was applied today with a 3M 2 layer wrap as ABIs were normal. Patient to follow up in 2 week at wound healing center in 1 week for nurse visit. This note was generated with [employer] dictation software. It may contain incorrect words, spelling, and punctuation that were not noted in checking the note before signing. Code Visit 150xxx-152xx: [id number] Skin sub graft trnk/arm/leg
[2017-08-21 13:29] VITALS: RESP 18; TEMP 37; BMI 22.4
--- NOTE | 2017-08-21 18:24 | PCM.WC.PN ---
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 History of Wound: This is a 77-year-old white female who presents to the wound center today for follow-up of an ulcer of the left lower extremity and cellulitis. She has a past medical history which is significant for hypertension vertigo and peripheral vascular disease. The patient states that her symptom of lower extremity ulceration on the left extremity started approximately 05/15/2017 . She states that she saw her PCP who placed her in an LAVELL boot, which she no longer uses. She states that the smell has improved, the redness is resolving, and the pain is improving as well. She denies any systemic signs of infection. She otherwise denies any fever, chills, nausea, vomiting, shortness of breath, chest pain or pressure, syncope or presyncopal episodes. Progress of Wound: wound stable and improving since use of Epifix, pain has resolved. - Physical Exam Vital Signs Temp Pulse Resp BP 98.6 F 68 18 108/70 08/21/17 13:29 08/14/17 13:40 08/21/17 13:29 08/14/17 13:40 General: Alert, Oriented x3, Cooperative HEENT: Atraumatic Cardiovascular: Regular rate Extremities: No edema, Peripheral Pulses Normal Skin: Ulcer/ Wound - Lateral lower extremity ulceration present, much improved small amount of slough present. Neurological: Neuro grossly intact Psych/Mental Status: Normal Affect, Appropriate, Alert and oriented to time, place, person, mood and affect Debridement Note Post-Debridement Measurements/Treatment WC - Nurse 2 - General Ulcer CM Notes Start: 08/07/17 13:19 Freq: Status: Active Protocol: Activity Type Activity Date Activity User E-Sign Co-Sign Detail Recorded Client Recorded Date Recorded By Document 08/14/17 14:06 DV [id number] 08/14/17 14:17 DV Document 08/21/17 15:07 DV [id number] 08/21/17 15:12 DV 08/14/17 08/21/17 14:06 15:07 Wound Center Nurse 2 #1 left lateral LE -Time 14:06 15:09 -Correct Patient Yes Yes -Correct Side, Site, Position Yes Yes -Correct Procedure Yes Yes -Procedure Performed Yes Yes -Type of Procedure Debridement Debridement -Clinical Debridement Subcutaneous Subcutaneous -Post Debridement Size (cm) - Length 2.0 0.5 -Post Debridement Size (cm) - Width 1.0 0.3 -Post Debridement Size (cm) - Depth 0.1 0.1 -Total Square Cm 2.00 0.15 -Wound/Ulcer Outcome Not Healed Not Healed -Ulcer Cleansing Rinsed/ Rinsed/ Irrigated with Irrigated with Saline Saline -Foul Odor after Cleansing No No -Bioengineered Tissue Yes No -Type of bioengineered Tissue EPIFIX -Expiration Date 05/09/22 -Product Lot Number [id number] -Percent Used 100 -Saline Lot Number [id number] -Topical Lidocaine (%) 4 -Bleeding Controlled with Pressure Pressure -Treatment Response Procedure Procedure Tolerated Well Tolerated Well Pain Scale: 0-10 Numeric Is Patient Pain Free? Yes Wound debrided: Lateral lower extremity Laterality: Left Type of Debridement: Excisional debridement Anesthesia Used: 5% Lidocaine Gel Depth: in the subcutaneous layer Percentage of wound debrided: 100 Instrument Used: 3mm curette Tissue Removed: Small amount of slough and fibrous tissue Severity: Fat Layer Exposed Amount of bleeding with debridement: Mild Bleeding Controlled with: Pressure Patient tolerated procedure well Assessment/Plan Assessment: Wound is stable and improving. Plan: I evaluated the patient and discussed the ongoing care plan. The patient did have cellulitis which has has now resolved since treatment with antibiotics. Repeat cultures were done which were negative. Wound was debrided to the subcutaneous tissue today. Patient tolerated well. Patient has had 3 Epifix treatments and has done exceptionally well on this, given the small size of the ulceration will trial 1 week of moistened Promogran covered in gauze and Tubigrip to be worn daily. Blood work reviewed with patient, pre-albumin was low, discussed increasing her protein intake and drinking premier protein drinks 3 a day, may recheck in the future and if still low possible referral to nutrition therapy. ABIs were done previously and demonstrated right HARRISON 1.15 and left HARRISON 1.32. Educated patient on red flag symptoms of worsening cellulitis that would require urgent medical attention and potential inpatient hospitalization for antibiotics. Patient verbalized understanding of this. Vascular studies demonstrated the following: Valvular competence appears intact within the. proximal deep venous systems bilaterally. The greater saphenous veins appear bilaterally patent and compressible segmentally. Sapheno-femoral junctions are bilaterally competent . Segmental valvular incompetence is noted within the greater saphenous veins bilaterally. The right small saphenous vein is patent and incompetent. The left small saphenous vein is patent and competent. Discussed with patient maximizing oral nutrition to promote wound healing which includes incorporating protein vitamin C into the diet. Patient to follow up in 1 week at wound healing center. This note was generated with [employer] dictation software. It may contain incorrect words, spelling, and punctuation that were not noted in checking the note before signing. Code Visit 111xxx-113xx: 94852 Kaley subq tissue 20 sq cm/<
--- NOTE | 2017-08-26 12:30 | PN.PCM_ITS ---
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 History of Wound: This is a 77-year-old white female who presents to the wound center today for follow-up of an ulcer of the left lower extremity and cellulitis. She has a past medical history which is significant for hypertension vertigo and peripheral vascular disease. The patient states that her symptom of lower extremity ulceration on the left extremity started approximately 05/15/2017 . She states that she saw her PCP who placed her in an LAVELL boot, which she no longer uses. She states that the smell has improved, the redness is resolving, and the pain is improving as well. She denies any systemic signs of infection. She otherwise denies any fever, chills, nausea, vomiting, shortness of breath, chest pain or pressure, syncope or presyncopal episodes. Progress of Wound: wound stable and improving since use of Epifix, pain has resolved. - Physical Exam Vital Signs Temp Pulse Resp BP 98.6 F 68 18 108/70 08/21/17 13:29 08/14/17 13:40 08/21/17 13:29 08/14/17 13:40 General: Alert, Oriented x3, Cooperative HEENT: Atraumatic Cardiovascular: Regular rate Extremities: No edema, Peripheral Pulses Normal Skin: Ulcer/ Wound - Lateral lower extremity ulceration present, much improved small amount of slough present. Neurological: Neuro grossly intact Psych/Mental Status: Normal Affect, Appropriate, Alert and oriented to time, place, person, mood and affect Debridement Note Post-Debridement Measurements/Treatment WC - Nurse 2 - General Ulcer CM Notes Start: 08/07/17 13:19 Freq: Status: Active Protocol: Activity Type Activity Date Activity User E-Sign Co-Sign Detail Recorded Client Recorded Date Recorded By Document 08/14/17 14:06 DV [id number] 08/14/17 14:17 DV Document 08/21/17 15:07 DV [id number] 08/21/17 15:12 DV 08/14/17 08/21/17 14:06 15:07 Wound Center Nurse 2 #1 left lateral LE -Time 14:06 15:09 -Correct Patient Yes Yes -Correct Side, Site, Position Yes Yes -Correct Procedure Yes Yes -Procedure Performed Yes Yes -Type of Procedure Debridement Debridement -Clinical Debridement Subcutaneous Subcutaneous -Post Debridement Size (cm) - Length 2.0 0.5 -Post Debridement Size (cm) - Width 1.0 0.3 -Post Debridement Size (cm) - Depth 0.1 0.1 -Total Square Cm 2.00 0.15 -Wound/Ulcer Outcome Not Healed Not Healed -Ulcer Cleansing Rinsed/ Rinsed/ Irrigated with Irrigated with Saline Saline -Foul Odor after Cleansing No No -Bioengineered Tissue Yes No -Type of bioengineered Tissue EPIFIX -Expiration Date 05/09/22 -Product Lot Number [id number] -Percent Used 100 -Saline Lot Number [id number] -Topical Lidocaine (%) 4 -Bleeding Controlled with Pressure Pressure -Treatment Response Procedure Procedure Tolerated Well Tolerated Well Pain Scale: 0-10 Numeric Is Patient Pain Free? Yes Wound debrided: Lateral lower extremity Laterality: Left Type of Debridement: Excisional debridement Anesthesia Used: 5% Lidocaine Gel Depth: in the subcutaneous layer Percentage of wound debrided: 100 Instrument Used: 3mm curette Tissue Removed: Small amount of slough and fibrous tissue Severity: Fat Layer Exposed Amount of bleeding with debridement: Mild Bleeding Controlled with: Pressure Patient tolerated procedure well Assessment/Plan Assessment: Wound is stable and improving. Plan: I evaluated the patient and discussed the ongoing care plan. The patient did have cellulitis which has has now resolved since treatment with antibiotics. Repeat cultures were done which were negative. Wound was debrided to the subcutaneous tissue today. Patient tolerated well. Patient has had 3 Epifix treatments and has done exceptionally well on this, given the small size of the ulceration will trial 1 week of moistened Promogran covered in gauze and Tubigrip to be worn daily. Blood work reviewed with patient, pre-albumin was low , discussed increasing her protein intake and drinking premier protein drinks 3 a day, may recheck in the future and if still low possible referral to nutrition therapy. ABIs were done previously and demonstrated right HARRISON 1.15 and left HARRISON 1.32. Educated patient on red flag symptoms of worsening cellulitis that would require urgent medical attention and potential inpatient hospitalization for antibiotics. Patient verbalized understanding of this. Vascular studies demonstrated the following: Valvular competence appears intact within the. proximal deep venous systems bilaterally. The greater saphenous veins appear bilaterally patent and compressible segmentally. Sapheno-femoral junctions are bilaterally competent . Segmental valvular incompetence is noted within the greater saphenous veins bilaterally. The right small saphenous vein is patent and incompetent. The left small saphenous vein is patent and competent. Discussed with patient maximizing oral nutrition to promote wound healing which includes incorporating protein vitamin C into the diet. Patient to follow up in 1 week at wound healing center. This note was generated with [employer] dictation software. It may contain incorrect words, spelling, and punctuation that were not noted in checking the note before signing. Code Visit 111xxx-113xx: [id number] Kaley subq tissue 20 sq cm/<
[2017-08-28 13:30] VITALS: BP 147/82; PULSE 80; RESP 16; TEMP 36.3; BMI 22.4
--- NOTE | 2017-08-28 17:45 | PCM.WC.PN ---
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 History of Wound: This is a 77-year-old white female who presents to the wound center today for follow-up of an ulcer of the left lower extremity and cellulitis. She has a past medical history which is significant for hypertension vertigo and peripheral vascular disease. The patient states that her symptom of lower extremity ulceration on the left extremity started approximately 05/15/2017 . She states that she saw her PCP who placed her in an LAVELL boot, which she no longer uses. She states that the smell has improved, the redness is resolving, and the pain is improving as well. She denies any systemic signs of infection. She otherwise denies any fever, chills, nausea, vomiting, shortness of breath, chest pain or pressure, syncope or presyncopal episodes. Progress of Wound: wound deteriorated, patient was not consistent in using her Tubigrip for compression and she was told not to clean the site aggressively and just use mild soap and let water run over if she wished to shower, however patient admits to aggressively cleaning surrounding the wound with a washcloth, thus excoriating the skin and deteriorating ulceration. She however denies denies any pain or purulent drainage or systemic signs of infection. - Physical Exam Vital Signs Temp Pulse Resp BP 97.3 F L 80 16 147/82 H 08/28/17 13:30 08/28/17 13:30 08/28/17 13:30 08/28/17 13:30 General: Alert, Oriented x3, Cooperative, No apparent distress HEENT: Atraumatic Cardiovascular: Regular rate Extremities: Edema - Generalized left lower extremity, Peripheral Pulses Normal Skin: Ulcer/ Wound - Ulceration present with adherent slough to the wound bed, size has enlarged, periwound bend and surrounding skin is excoriated, no signs of infection however specifically no warmth or purulent exudate Wound Measurements and Assessment WC - Nurse 1 - General Ulcer Measurement Start: 08/07/17 13:19 Freq: Status: Active Protocol: Activity Type Activity Date Activity User E-Sign Co-Sign Detail Recorded Client Recorded Date Recorded By Document 08/28/17 13:30 DOLORES [id number] 08/28/17 13:41 08/28/17 13:30 Wound Center Nurse 1 [Ulcer Assessment] #1 left lateral LE -Combined with other wound No -Current Size (cm) - Length 0.1 -Current Size (cm) - Width 0.1 -Current Size (cm) - Depth 0.1 -Total Square Cm 0.01 -Photo Taken No -Epithelialization Large 67-100% -Tunneling No -Undermining/Tunneling No -Circular Undermining No -Exudate Amt None Present (0 %) -Granulation Amt None Present (0 %) -Slough/Fibrin Yes -Necrosis Amt Large (67-100%) -Necrotic Tissue Type Adherent Slough -Structure Exposed N/A -Texture (Kajal-wound Skin Appearance) Assessed Excoriation Friable Localized Edema -Moisture (Kajal-wound Skin Appearance Assessed ) Dry/Scaly -Color (Kajal-wound Skin Appearance) Assessed -Temperature (Kajal-wound Skin No Abnormality Appearance) (Pt Warm) -Tenderness on Palpation (Kajal-wound No Skin Appearance) -Ulcer Cleansing Rinsed/ Irrigated with Saline -Foul Odor after Cleansing No -Anesthetic Used 4% Lidocaine Solution [Edema Assessment] -Lower Limb Edema Present Yes -Left Calf (cm) 30.4 -Left Ankle (cm) 22.6 WC - Nurse 2 - General Ulcer CM Notes Start: 08/07/17 13:19 Freq: Status: Active Protocol: Activity Type Activity Date Activity User E-Sign Co-Sign Detail Recorded Client Recorded Date Recorded By Document 08/28/17 14:01 DV [id number] 08/28/17 14:10 DV 08/28/17 14:01 Wound Center Nurse 2 [Procedure/Treatment] #1 left lateral LE -Time 14:02 -Correct Patient Yes -Correct Side, Site, Position Yes -Correct Procedure Yes -Procedure Performed Yes -Type of Procedure Debridement -Clinical Debridement Subcutaneous -Post Debridement Size (cm) - Length 1.9 -Post Debridement Size (cm) - Width 0.9 -Post Debridement Size (cm) - Depth 0.1 -Total Square Cm 1.71 -Wound/Ulcer Outcome Not Healed -Ulcer Cleansing Rinsed/ Irrigated with Saline -Foul Odor after Cleansing No -Bioengineered Tissue Yes -Type of bioengineered Tissue EPIFIX -Expiration Date 06/09/22 -Product Lot Number [id number] -Percent Used 100 -Saline Lot Number [id number] -Topical Lidocaine (%) 4 -Bleeding Controlled with Pressure -Other HYDROGEL -Treatment Response Procedure Tolerated Well [See Physician Procedure note for Specifics] Neurological: Neuro grossly intact Psych/Mental Status: Normal Affect, Alert and oriented to time, place, person, mood and affect Debridement Note Post-Debridement Measurements/Treatment WC - Nurse 2 - General Ulcer CM Notes Start: 08/07/17 13:19 Freq: Status: Active Protocol: Activity Type Activity Date Activity User E-Sign Co-Sign Detail Recorded Client Recorded Date Recorded By Document 08/14/17 14:06 DV [id number] 08/14/17 14:17 DV Document 08/21/17 15:07 DV [id number] 08/21/17 15:12 DV Document 08/28/17 14:01 DV [id number] 08/28/17 14:10 DV 08/14/17 08/21/17 08/28/17 14:06 15:07 14:01 Wound Center Nurse 2 #1 left lateral LE -Time 14:06 15:09 14:02 -Correct Patient Yes Yes Yes -Correct Side, Site, Position Yes Yes Yes -Correct Procedure Yes Yes Yes -Procedure Performed Yes Yes Yes -Type of Procedure Debridement Debridement Debridement -Clinical Debridement Subcutaneous Subcutaneous Subcutaneous -Post Debridement Size (cm) - Length 2.0 0.5 1.9 -Post Debridement Size (cm) - Width 1.0 0.3 0.9 -Post Debridement Size (cm) - Depth 0.1 0.1 0.1 -Total Square Cm 2.00 0.15 1.71 -Wound/Ulcer Outcome Not Healed Not Healed Not Healed -Ulcer Cleansing Rinsed/ Rinsed/ Rinsed/ Irrigated with Irrigated with Irrigated with Saline Saline Saline -Foul Odor after Cleansing No No No -Bioengineered Tissue Yes No Yes -Type of bioengineered Tissue EPIFIX EPIFIX -Expiration Date 05/09/22 06/09/22 -Product Lot Number [id number] -Percent Used 100 100 -Saline Lot Number [id number] -Topical Lidocaine (%) 4 4 -Bleeding Controlled with Pressure Pressure Pressure -Other HYDROGEL -Treatment Response Procedure Procedure Procedure Tolerated Well Tolerated Well Tolerated Well Pain Scale: 0-10 Numeric Is Patient Pain Free? Yes Wound debrided: Left lower extremity ulceration Laterality: Left Anesthesia Used: 5% Lidocaine Gel Depth: in the subcutaneous layer Percentage of wound debrided: 100 Instrument Used: 5mm curette Tissue Removed: Slough and adherent tissue Severity: Fat Layer Exposed Amount of bleeding with debridement: Mild Bleeding Controlled with: Pressure Patient tolerated procedure well Epfix was applied after subcutaneous debridement, it was then covered with the wound veil and secured with Steri-Strips, 100% of the at Epifix was used with 0% waste. Patient tolerated the procedure well. 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 The patient did have cellulitis which has has now resolved since treatment with antibiotics. Repeat cultures were done which were negative. Wound was debrided to the subcutaneous tissue today. Patient tolerated well. Epfix #4 was applied after subcutaneous debridement, it was then covered with the wound veil and secured with Steri-Strips, a light layer of hydrogel was applied, 100% of the at Epifix was used with 0% waste. Patient tolerated the procedure well. 3M wraps were applied after as well. Blood work reviewed with patient, pre-albumin was low, discussed increasing her protein intake and drinking premier protein drinks 3 a day, may recheck in the future and if still low possible referral to nutrition therapy. ABIs were done previously and demonstrated right HARRISON 1.15 and left HARRISON 1.32. Educated patient on red flag symptoms of worsening cellulitis that would require urgent medical attention and potential inpatient hospitalization for antibiotics. Patient verbalized understanding of this. Vascular studies demonstrated the following: Valvular competence appears intact within the. proximal deep venous systems bilaterally. The greater saphenous veins appear bilaterally patent and compressible segmentally. Sapheno-femoral junctions are bilaterally competent . Segmental valvular incompetence is noted within the greater saphenous veins bilaterally. The right small saphenous vein is patent and incompetent. The left small saphenous vein is patent and competent. Discussed with patient maximizing oral nutrition to promote wound healing which includes incorporating protein vitamin C into the diet. Patient to follow up in 1 week at wound healing center for nurse visit and to change 3M wraps and 2 weeks for a visit with provider. This note was generated with [employer] dictation software. It may contain incorrect words, spelling, and punctuation that were not noted in checking the note before signing. Code Visit 150xxx-152xx: 11364 Skin sub graft trnk/arm/leg
--- NOTE | 2017-08-31 10:53 | PN.PCM_ITS ---
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 History of Wound: This is a 77-year-old white female who presents to the wound center today for follow-up of an ulcer of the left lower extremity and cellulitis. She has a past medical history which is significant for hypertension vertigo and peripheral vascular disease. The patient states that her symptom of lower extremity ulceration on the left extremity started approximately 05/15/2017 . She states that she saw her PCP who placed her in an LAVELL boot, which she no longer uses. She states that the smell has improved, the redness is resolving, and the pain is improving as well. She denies any systemic signs of infection. She otherwise denies any fever, chills, nausea, vomiting, shortness of breath, chest pain or pressure, syncope or presyncopal episodes. Progress of Wound: wound deteriorated, patient was not consistent in using her Tubigrip for compression and she was told not to clean the site aggressively and just use mild soap and let water run over if she wished to shower, however patient admits to aggressively cleaning surrounding the wound with a washcloth, thus excoriating the skin and deteriorating ulceration. She however denies denies any pain or purulent drainage or systemic signs of infection. - Physical Exam Vital Signs Temp Pulse Resp BP 97.3 F L 80 16 147/82 H 08/28/17 13:30 08/28/17 13:30 08/28/17 13:30 08/28/17 13:30 General: Alert, Oriented x3, Cooperative, No apparent distress HEENT: Atraumatic Cardiovascular: Regular rate Extremities: Edema - Generalized left lower extremity, Peripheral Pulses Normal Skin: Ulcer/ Wound - Ulceration present with adherent slough to the wound bed, size has enlarged, periwound bend and surrounding skin is excoriated, no signs of infection however specifically no warmth or purulent exudate Wound Measurements and Assessment WC - Nurse 1 - General Ulcer Measurement Start: 08/07/17 13:19 Freq: Status: Active Protocol: Activity Type Activity Date Activity User E-Sign Co-Sign Detail Recorded Client Recorded Date Recorded By Document 08/28/17 13:30 DOLORES [id number] 08/28/17 13:41 08/28/17 13:30 Wound Center Nurse 1 [Ulcer Assessment] #1 left lateral LE -Combined with other wound No -Current Size (cm) - Length 0.1 -Current Size (cm) - Width 0.1 -Current Size (cm) - Depth 0.1 -Total Square Cm 0.01 -Photo Taken No -Epithelialization Large 67-100% -Tunneling No -Undermining/Tunneling No -Circular Undermining No -Exudate Amt None Present (0 %) -Granulation Amt None Present (0 %) -Slough/Fibrin Yes -Necrosis Amt Large (67-100%) -Necrotic Tissue Type Adherent Slough -Structure Exposed N/A -Texture (Kajal-wound Skin Appearance) Assessed Excoriation Friable Localized Edema -Moisture (Kajal-wound Skin Appearance Assessed ) Dry/Scaly -Color (Kajal-wound Skin Appearance) Assessed -Temperature (Kajal-wound Skin No Abnormality Appearance) (Pt Warm) -Tenderness on Palpation (Kajal-wound No Skin Appearance) -Ulcer Cleansing Rinsed/ Irrigated with Saline -Foul Odor after Cleansing No -Anesthetic Used 4% Lidocaine Solution [Edema Assessment] -Lower Limb Edema Present Yes -Left Calf (cm) 30.4 -Left Ankle (cm) 22.6 WC - Nurse 2 - General Ulcer CM Notes Start: 08/07/17 13:19 Freq: Status: Active Protocol: Activity Type Activity Date Activity User E-Sign Co-Sign Detail Recorded Client Recorded Date Recorded By Document 08/28/17 14:01 DV [id number] 08/28/17 14:10 DV 08/28/17 14:01 Wound Center Nurse 2 [Procedure/Treatment] #1 left lateral LE -Time 14:02 -Correct Patient Yes -Correct Side, Site, Position Yes -Correct Procedure Yes -Procedure Performed Yes -Type of Procedure Debridement -Clinical Debridement Subcutaneous -Post Debridement Size (cm) - Length 1.9 -Post Debridement Size (cm) - Width 0.9 -Post Debridement Size (cm) - Depth 0.1 -Total Square Cm 1.71 -Wound/Ulcer Outcome Not Healed -Ulcer Cleansing Rinsed/ Irrigated with Saline -Foul Odor after Cleansing No -Bioengineered Tissue Yes -Type of bioengineered Tissue EPIFIX -Expiration Date 06/09/22 -Product Lot Number [id number] -Percent Used 100 -Saline Lot Number [id number] -Topical Lidocaine (%) 4 -Bleeding Controlled with Pressure -Other HYDROGEL -Treatment Response Procedure Tolerated Well [See Physician Procedure note for Specifics] Neurological: Neuro grossly intact Psych/Mental Status: Normal Affect, Alert and oriented to time, place, person, mood and affect Debridement Note Post-Debridement Measurements/Treatment WC - Nurse 2 - General Ulcer CM Notes Start: 08/07/17 13:19 Freq: Status: Active Protocol: Activity Type Activity Date Activity User E-Sign Co-Sign Detail Recorded Client Recorded Date Recorded By Document 08/14/17 14:06 DV [id number] 08/14/17 14:17 DV Document 08/21/17 15:07 DV [id number] 08/21/17 15:12 DV Document 08/28/17 14:01 DV [id number] 08/28/17 14:10 DV 08/14/17 08/21/17 08/28/17 14:06 15:07 14:01 Wound Center Nurse 2 #1 left lateral LE -Time 14:06 15:09 14:02 -Correct Patient Yes Yes Yes -Correct Side, Site, Position Yes Yes Yes -Correct Procedure Yes Yes Yes -Procedure Performed Yes Yes Yes -Type of Procedure Debridement Debridement Debridement -Clinical Debridement Subcutaneous Subcutaneous Subcutaneous -Post Debridement Size (cm) - Length 2.0 0.5 1.9 -Post Debridement Size (cm) - Width 1.0 0.3 0.9 -Post Debridement Size (cm) - Depth 0.1 0.1 0.1 -Total Square Cm 2.00 0.15 1.71 -Wound/Ulcer Outcome Not Healed Not Healed Not Healed -Ulcer Cleansing Rinsed/ Rinsed/ Rinsed/ Irrigated with Irrigated with Irrigated with Saline Saline Saline -Foul Odor after Cleansing No No No -Bioengineered Tissue Yes No Yes -Type of bioengineered Tissue EPIFIX EPIFIX -Expiration Date 05/09/22 06/09/22 -Product Lot Number [id number] -Percent Used 100 100 -Saline Lot Number [id number] -Topical Lidocaine (%) 4 4 -Bleeding Controlled with Pressure Pressure Pressure -Other HYDROGEL -Treatment Response Procedure Procedure Procedure Tolerated Well Tolerated Well Tolerated Well Pain Scale: 0-10 Numeric Is Patient Pain Free? Yes Wound debrided: Left lower extremity ulceration Laterality: Left Anesthesia Used: 5% Lidocaine Gel Depth: in the subcutaneous layer Percentage of wound debrided: 100 Instrument Used: 5mm curette Tissue Removed: Slough and adherent tissue Severity: Fat Layer Exposed Amount of bleeding with debridement: Mild Bleeding Controlled with: Pressure Patient tolerated procedure well Epfix was applied after subcutaneous debridement, it was then covered with the wound veil and secured with Steri-Strips, 100% of the at Epifix was used with 0 % waste. Patient tolerated the procedure well. 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 The patient did have cellulitis which has has now resolved since treatment with antibiotics. Repeat cultures were done which were negative. Wound was debrided to the subcutaneous tissue today. Patient tolerated well. Epfix #4 was applied after subcutaneous debridement, it was then covered with the wound veil and secured with Steri-Strips, a light layer of hydrogel was applied, 100% of the at Epifix was used with 0% waste. Patient tolerated the procedure well. 3M wraps were applied after as well. Blood work reviewed with patient, pre- albumin was low, discussed increasing her protein intake and drinking premier protein drinks 3 a day, may recheck in the future and if still low possible referral to nutrition therapy. ABIs were done previously and demonstrated right HARRISON 1.15 and left HARRISON 1.32. Educated patient on red flag symptoms of worsening cellulitis that would require urgent medical attention and potential inpatient hospitalization for antibiotics. Patient verbalized understanding of this. Vascular studies demonstrated the following: Valvular competence appears intact within the. proximal deep venous systems bilaterally. The greater saphenous veins appear bilaterally patent and compressible segmentally. Sapheno- femoral junctions are bilaterally competent . Segmental valvular incompetence is noted within the greater saphenous veins bilaterally. The right small saphenous vein is patent and incompetent. The left small saphenous vein is patent and competent. Discussed with patient maximizing oral nutrition to promote wound healing which includes incorporating protein vitamin C into the diet. Patient to follow up in 1 week at wound healing center for nurse visit and to change 3M wraps and 2 weeks for a visit with provider. This note was generated with [employer] dictation software. It may contain incorrect words, spelling, and punctuation that were not noted in checking the note before signing. Code Visit 150xxx-152xx: [id number] Skin sub graft trnk/arm/leg
[2017-09-04 14:18] VITALS: BP 129/79; PULSE 68; RESP 18; TEMP 37.2; BMI 22.4
--- NOTE | 2017-09-04 18:06 | PCM.WC.PN ---
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 History of Wound: This is a 77-year-old white female who presents to the wound center today for follow-up of an ulcer of the left lower extremity and cellulitis. She has a past medical history which is significant for hypertension vertigo and peripheral vascular disease. The patient states that her symptom of lower extremity ulceration on the left extremity started approximately 05/15/2017 . She states that she saw her PCP who placed her in an LAVELL boot, which she no longer uses. She states that the smell has improved, the redness is resolving, and the pain is improving as well. She denies any systemic signs of infection. She otherwise denies any fever, chills, nausea, vomiting, shortness of breath, chest pain or pressure, syncope or presyncopal episodes. Progress of Wound: wound stable and improving with the use of Epifix and 3M wraps for compression. She denies denies any pain or purulent drainage or systemic signs of infection. - Physical Exam Vital Signs Temp Pulse Resp BP 98.9 F 68 18 129/79 H 09/04/17 14:18 09/04/17 14:18 09/04/17 14:18 09/04/17 14:18 General: Alert, Oriented x3, Cooperative, No apparent distress HEENT: Atraumatic Cardiovascular: Regular rate Extremities: No edema, Capillary Refill Less than 3 Seconds, Peripheral Pulses Normal Skin: Ulcer/ Wound - Ulceration present lateral lower extremity, surrounding extravasation noted, small amount of adherent slough present, no signs of infection at this time Wound Measurements and Assessment WC - Nurse 1 - General Ulcer Measurement Start: 08/07/17 13:19 Freq: Status: Active Protocol: Activity Type Activity Date Activity User E-Sign Co-Sign Detail Recorded Client Recorded Date Recorded By Document 09/04/17 14:18 TM [id number] 09/04/17 14:20 TM 09/04/17 14:18 Wound Center Nurse 1 [Ulcer Assessment] #1 left lateral LE -Combined with other wound No -Current Size (cm) - Length 1.5 -Current Size (cm) - Width 0.9 -Current Size (cm) - Depth 0.1 -Total Square Cm 1.35 -Date of Last Picture (Recall this 09/04/17 field) -Photo Taken Yes -Epithelialization Medium 34-66% -Tunneling No -Undermining/Tunneling No -Circular Undermining No -Classification - Thickness Full Thickness without Exposed Support Structure -Exudate Amt None Present (0 %) -Wound Margin Distinct, Outline Attached -Granulation Amt Medium (34-66%) -Granulation Quality [place] -Slough/Fibrin Yes -Necrosis Amt Medium (34-66%) -Necrotic Tissue Type Adherent Slough -Structure Exposed None/Limited to Skin Breakdown -Texture (Kajal-wound Skin Appearance) Scarring -Moisture (Kajal-wound Skin Appearance Dry/Scaly ) -Color (Kajal-wound Skin Appearance) Erythema Hemosiderin Staining -Temperature (Kajal-wound Skin No Abnormality Appearance) (Pt Warm) -Tenderness on Palpation (Kajal-wound No Skin Appearance) -Ulcer Cleansing HIBICLENS -Foul Odor after Cleansing No -Anesthetic Used 5% Lidocaine Gel [Edema Assessment] -Lower Limb Edema Present Yes -Left Calf (cm) 27.0 -Left Ankle (cm) 21.0 WC - Nurse 2 - General Ulcer CM Notes Start: 08/07/17 13:19 Freq: Status: Active Protocol: Activity Type Activity Date Activity User E-Sign Co-Sign Detail Recorded Client Recorded Date Recorded By Document 09/04/17 14:58 DV [id number] 09/04/17 15:03 DV 09/04/17 14:58 Wound Center Nurse 2 [Procedure/Treatment] #1 left lateral LE -Time 14:58 -Correct Patient Yes -Correct Side, Site, Position Yes -Correct Procedure Yes -Procedure Performed Yes -Type of Procedure Debridement -Clinical Debridement Selective -Post Debridement Size (cm) - Length 1.5 -Post Debridement Size (cm) - Width 0.6 -Post Debridement Size (cm) - Depth 0.1 -Total Square Cm 0.90 -Wound/Ulcer Outcome Not Healed -Ulcer Cleansing Rinsed/ Irrigated with Saline -Foul Odor after Cleansing No -Bioengineered Tissue No -Bleeding Controlled with Pressure -Treatment Response Procedure Tolerated Well [See Physician Procedure note for Specifics] Pain Scale: 0-10 Numeric [Pain] -Is Patient Pain Free? Yes Neurological: Neuro grossly intact Psych/Mental Status: Normal Affect Debridement Note Post-Debridement Measurements/Treatment WC - Nurse 2 - General Ulcer CM Notes Start: 08/07/17 13:19 Freq: Status: Active Protocol: Activity Type Activity Date Activity User E-Sign Co-Sign Detail Recorded Client Recorded Date Recorded By Document 08/14/17 14:06 DV [id number] 08/14/17 14:17 DV Document 08/21/17 15:07 DV [id number] 08/21/17 15:12 DV Document 08/28/17 14:01 DV [id number] 08/28/17 14:10 DV Document 09/04/17 14:58 DV [id number] 09/04/17 15:03 DV 08/14/17 08/21/17 08/28/17 14:06 15:07 14:01 Wound Center Nurse 2 #1 left lateral LE -Time 14:06 15:09 14:02 -Correct Patient Yes Yes Yes -Correct Side, Site, Position Yes Yes Yes -Correct Procedure Yes Yes Yes -Procedure Performed Yes Yes Yes -Type of Procedure Debridement Debridement Debridement -Clinical Debridement Subcutaneous Subcutaneous Subcutaneous -Post Debridement Size (cm) - Length 2.0 0.5 1.9 -Post Debridement Size (cm) - Width 1.0 0.3 0.9 -Post Debridement Size (cm) - Depth 0.1 0.1 0.1 -Total Square Cm 2.00 0.15 1.71 -Wound/Ulcer Outcome Not Healed Not Healed Not Healed -Ulcer Cleansing Rinsed/ Rinsed/ Rinsed/ Irrigated with Irrigated with Irrigated with Saline Saline Saline -Foul Odor after Cleansing No No No -Bioengineered Tissue Yes No Yes -Type of bioengineered Tissue EPIFIX EPIFIX -Expiration Date 05/09/22 06/09/22 -Product Lot Number [id number] -Percent Used 100 100 -Saline Lot Number [id number] -Topical Lidocaine (%) 4 4 -Bleeding Controlled with Pressure Pressure Pressure -Other HYDROGEL -Treatment Response Procedure Procedure Procedure Tolerated Well Tolerated Well Tolerated Well Pain Scale: 0-10 Numeric Is Patient Pain Free? Yes 09/04/17 14:58 Wound Center Nurse 2 #1 left lateral LE -Time 14:58 -Correct Patient Yes -Correct Side, Site, Position Yes -Correct Procedure Yes -Procedure Performed Yes -Type of Procedure Debridement -Clinical Debridement Selective -Post Debridement Size (cm) - Length 1.5 -Post Debridement Size (cm) - Width 0.6 -Post Debridement Size (cm) - Depth 0.1 -Total Square Cm 0.90 -Wound/Ulcer Outcome Not Healed -Ulcer Cleansing Rinsed/ Irrigated with Saline -Foul Odor after Cleansing No -Bioengineered Tissue No -Type of bioengineered Tissue -Expiration Date -Product Lot Number -Percent Used -Saline Lot Number -Topical Lidocaine (%) -Bleeding Controlled with Pressure -Other -Treatment Response Procedure Tolerated Well Pain Scale: 0-10 Numeric Is Patient Pain Free? Yes Wound debrided: Lower extremity ulceration Laterality: Left Type of Debridement: Selective debridement Anesthesia Used: 5% Lidocaine Gel Depth: in the subcutaneous layer Percentage of wound debrided: 70 Instrument Used: 5mm curette Tissue Removed: Adherent slough and devitalized tissue Severity: Fat Layer Exposed Amount of bleeding with debridement: Mild Bleeding Controlled with: Pressure Patient tolerated procedure well Assessment/Plan Active Problems Nonhealing ulcer of left lower extremity with fat layer exposed (Acute) PVD (peripheral vascular disease) (Chronic) Hypertension (Chronic) Lymphedema (Acute) Assessment: Wound has improved with the use of Epifix and 3M wraps for compression Plan: I evaluated the patient and discussed the ongoing care plan. The patient did have cellulitis which has has now resolved since treatment with antibiotics. Repeat cultures were done which were negative. Wound was debrided to the subcutaneous tissue today. Patient tolerated well. Patient's wound care will consist of Adaptic, moistened Promogran, and 3M wraps. Patient to return in 1 week for nurse visit for 3M wrap change and if wound is healed, may be discharged at that time. Blood work reviewed with patient, pre-albumin was low, discussed increasing her protein intake and drinking premier protein drinks 3 a day, may recheck in the future and if still low possible referral to nutrition therapy. ABIs were done previously and demonstrated right HARRISON 1.15 and left HARRISON 1.32. Educated patient on red flag symptoms of worsening cellulitis that would require urgent medical attention and potential inpatient hospitalization for antibiotics. Patient verbalized understanding of this. Vascular studies demonstrated the following: Valvular competence appears intact within the. proximal deep venous systems bilaterally. The greater saphenous veins appear bilaterally patent and compressible segmentally. Sapheno-femoral junctions are bilaterally competent . Segmental valvular incompetence is noted within the greater saphenous veins bilaterally. The right small saphenous vein is patent and incompetent. The left small saphenous vein is patent and competent. Discussed with patient maximizing oral nutrition to promote wound healing which includes incorporating protein vitamin C into the diet. Patient to follow up in 1 week at wound healing center for nurse visit and to change 3M wraps and 2 weeks for a visit with provider. This note was generated with [employer] dictation software. It may contain incorrect words, spelling, and punctuation that were not noted in checking the note before signing. Code Visit 111xxx-113xx: [id number] Kaley subq tissue 20 sq cm/<
--- NOTE | 2017-09-06 12:11 | PN.PCM_ITS ---
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 History of Wound: This is a 77-year-old white female who presents to the wound center today for follow-up of an ulcer of the left lower extremity and cellulitis. She has a past medical history which is significant for hypertension vertigo and peripheral vascular disease. The patient states that her symptom of lower extremity ulceration on the left extremity started approximately 05/15/2017 . She states that she saw her PCP who placed her in an LAVELL boot, which she no longer uses. She states that the smell has improved, the redness is resolving, and the pain is improving as well. She denies any systemic signs of infection. She otherwise denies any fever, chills, nausea, vomiting, shortness of breath, chest pain or pressure, syncope or presyncopal episodes. Progress of Wound: wound stable and improving with the use of Epifix and 3M wraps for compression. She denies denies any pain or purulent drainage or systemic signs of infection. - Physical Exam Vital Signs Temp Pulse Resp BP 98.9 F 68 18 129/79 H 09/04/17 14:18 09/04/17 14:18 09/04/17 14:18 09/04/17 14:18 General: Alert, Oriented x3, Cooperative, No apparent distress HEENT: Atraumatic Cardiovascular: Regular rate Extremities: No edema, Capillary Refill Less than 3 Seconds, Peripheral Pulses Normal Skin: Ulcer/ Wound - Ulceration present lateral lower extremity, surrounding extravasation noted, small amount of adherent slough present, no signs of infection at this time Wound Measurements and Assessment WC - Nurse 1 - General Ulcer Measurement Start: 08/07/17 13:19 Freq: Status: Active Protocol: Activity Type Activity Date Activity User E-Sign Co-Sign Detail Recorded Client Recorded Date Recorded By Document 09/04/17 14:18 TM [id number] 09/04/17 14:20 TM 09/04/17 14:18 Wound Center Nurse 1 [Ulcer Assessment] #1 left lateral LE -Combined with other wound No -Current Size (cm) - Length 1.5 -Current Size (cm) - Width 0.9 -Current Size (cm) - Depth 0.1 -Total Square Cm 1.35 -Date of Last Picture (Recall this 09/04/17 field) -Photo Taken Yes -Epithelialization Medium 34-66% -Tunneling No -Undermining/Tunneling No -Circular Undermining No -Classification - Thickness Full Thickness without Exposed Support Structure -Exudate Amt None Present (0 %) -Wound Margin Distinct, Outline Attached -Granulation Amt Medium (34-66%) -Granulation Quality [place] -Slough/Fibrin Yes -Necrosis Amt Medium (34-66%) -Necrotic Tissue Type Adherent Slough -Structure Exposed None/Limited to Skin Breakdown -Texture (Kajal-wound Skin Appearance) Scarring -Moisture (Kajal-wound Skin Appearance Dry/Scaly ) -Color (Kajal-wound Skin Appearance) Erythema Hemosiderin Staining -Temperature (Kajal-wound Skin No Abnormality Appearance) (Pt Warm) -Tenderness on Palpation (Kajal-wound No Skin Appearance) -Ulcer Cleansing HIBICLENS -Foul Odor after Cleansing No -Anesthetic Used 5% Lidocaine Gel [Edema Assessment] -Lower Limb Edema Present Yes -Left Calf (cm) 27.0 -Left Ankle (cm) 21.0 WC - Nurse 2 - General Ulcer CM Notes Start: 08/07/17 13:19 Freq: Status: Active Protocol: Activity Type Activity Date Activity User E-Sign Co-Sign Detail Recorded Client Recorded Date Recorded By Document 09/04/17 14:58 DV [id number] 09/04/17 15:03 DV 09/04/17 14:58 Wound Center Nurse 2 [Procedure/Treatment] #1 left lateral LE -Time 14:58 -Correct Patient Yes -Correct Side, Site, Position Yes -Correct Procedure Yes -Procedure Performed Yes -Type of Procedure Debridement -Clinical Debridement Selective -Post Debridement Size (cm) - Length 1.5 -Post Debridement Size (cm) - Width 0.6 -Post Debridement Size (cm) - Depth 0.1 -Total Square Cm 0.90 -Wound/Ulcer Outcome Not Healed -Ulcer Cleansing Rinsed/ Irrigated with Saline -Foul Odor after Cleansing No -Bioengineered Tissue No -Bleeding Controlled with Pressure -Treatment Response Procedure Tolerated Well [See Physician Procedure note for Specifics] Pain Scale: 0-10 Numeric [Pain] -Is Patient Pain Free? Yes Neurological: Neuro grossly intact Psych/Mental Status: Normal Affect Debridement Note Post-Debridement Measurements/Treatment WC - Nurse 2 - General Ulcer CM Notes Start: 08/07/17 13:19 Freq: Status: Active Protocol: Activity Type Activity Date Activity User E-Sign Co-Sign Detail Recorded Client Recorded Date Recorded By Document 08/14/17 14:06 DV [id number] 08/14/17 14:17 DV Document 08/21/17 15:07 DV [id number] 08/21/17 15:12 DV Document 08/28/17 14:01 DV [id number] 08/28/17 14:10 DV Document 09/04/17 14:58 DV [id number] 09/04/17 15:03 DV 08/14/17 08/21/17 08/28/17 14:06 15:07 14:01 Wound Center Nurse 2 #1 left lateral LE -Time 14:06 15:09 14:02 -Correct Patient Yes Yes Yes -Correct Side, Site, Position Yes Yes Yes -Correct Procedure Yes Yes Yes -Procedure Performed Yes Yes Yes -Type of Procedure Debridement Debridement Debridement -Clinical Debridement Subcutaneous Subcutaneous Subcutaneous -Post Debridement Size (cm) - Length 2.0 0.5 1.9 -Post Debridement Size (cm) - Width 1.0 0.3 0.9 -Post Debridement Size (cm) - Depth 0.1 0.1 0.1 -Total Square Cm 2.00 0.15 1.71 -Wound/Ulcer Outcome Not Healed Not Healed Not Healed -Ulcer Cleansing Rinsed/ Rinsed/ Rinsed/ Irrigated with Irrigated with Irrigated with Saline Saline Saline -Foul Odor after Cleansing No No No -Bioengineered Tissue Yes No Yes -Type of bioengineered Tissue EPIFIX EPIFIX -Expiration Date 05/09/22 06/09/22 -Product Lot Number [id number] -Percent Used 100 100 -Saline Lot Number [id number] -Topical Lidocaine (%) 4 4 -Bleeding Controlled with Pressure Pressure Pressure -Other HYDROGEL -Treatment Response Procedure Procedure Procedure Tolerated Well Tolerated Well Tolerated Well Pain Scale: 0-10 Numeric Is Patient Pain Free? Yes 09/04/17 14:58 Wound Center Nurse 2 #1 left lateral LE -Time 14:58 -Correct Patient Yes -Correct Side, Site, Position Yes -Correct Procedure Yes -Procedure Performed Yes -Type of Procedure Debridement -Clinical Debridement Selective -Post Debridement Size (cm) - Length 1.5 -Post Debridement Size (cm) - Width 0.6 -Post Debridement Size (cm) - Depth 0.1 -Total Square Cm 0.90 -Wound/Ulcer Outcome Not Healed -Ulcer Cleansing Rinsed/ Irrigated with Saline -Foul Odor after Cleansing No -Bioengineered Tissue No -Type of bioengineered Tissue -Expiration Date -Product Lot Number -Percent Used -Saline Lot Number -Topical Lidocaine (%) -Bleeding Controlled with Pressure -Other -Treatment Response Procedure Tolerated Well Pain Scale: 0-10 Numeric Is Patient Pain Free? Yes Wound debrided: Lower extremity ulceration Laterality: Left Type of Debridement: Selective debridement Anesthesia Used: 5% Lidocaine Gel Depth: in the subcutaneous layer Percentage of wound debrided: 70 Instrument Used: 5mm curette Tissue Removed: Adherent slough and devitalized tissue Severity: Fat Layer Exposed Amount of bleeding with debridement: Mild Bleeding Controlled with: Pressure Patient tolerated procedure well Assessment/Plan Active Problems Nonhealing ulcer of left lower extremity with fat layer exposed (Acute) PVD (peripheral vascular disease) (Chronic) Hypertension (Chronic) Lymphedema (Acute) Assessment: Wound has improved with the use of Epifix and 3M wraps for compression Plan: I evaluated the patient and discussed the ongoing care plan. The patient did have cellulitis which has has now resolved since treatment with antibiotics. Repeat cultures were done which were negative. Wound was debrided to the subcutaneous tissue today. Patient tolerated well. Patient's wound care will consist of Adaptic, moistened Promogran, and 3M wraps. Patient to return in 1 week for nurse visit for 3M wrap change and if wound is healed, may be discharged at that time. Blood work reviewed with patient, pre-albumin was low, discussed increasing her protein intake and drinking premier protein drinks 3 a day, may recheck in the future and if still low possible referral to nutrition therapy. ABIs were done previously and demonstrated right HARRISON 1.15 and left HARRISON 1.32. Educated patient on red flag symptoms of worsening cellulitis that would require urgent medical attention and potential inpatient hospitalization for antibiotics. Patient verbalized understanding of this. Vascular studies demonstrated the following: Valvular competence appears intact within the. proximal deep venous systems bilaterally. The greater saphenous veins appear bilaterally patent and compressible segmentally. Sapheno-femoral junctions are bilaterally competent . Segmental valvular incompetence is noted within the greater saphenous veins bilaterally. The right small saphenous vein is patent and incompetent. The left small saphenous vein is patent and competent. Discussed with patient maximizing oral nutrition to promote wound healing which includes incorporating protein vitamin C into the diet. Patient to follow up in 1 week at wound healing center for nurse visit and to change 3M wraps and 2 weeks for a visit with provider. This note was generated with [employer] dictation software. It may contain incorrect words, spelling, and punctuation that were not noted in checking the note before signing. Code Visit 111xxx-113xx: [id number] Kaley subq tissue 20 sq cm/<
== END 2017-09-06 23:59 ==
LOC: WC 13:30
PROVIDERS: Visit Provider Nurse Practitioner Family
DX: I73.9 Peripheral vascular disease, unspecified (principal); I10 Essential (primary) hypertension; I89.0 Lymphedema, not elsewhere classified; L97.822 Non-pressure chronic ulcer of other part of left lower leg with fat layer exposed
CPT/HCPCS: 11042; 15271; 29581; 99211; Q4131; G0463

== ENCOUNTER 2017-10-02 13:30 | Outpatient (RCR) | payer MEDICARE, SELFPAY ==
[2017-09-07 00:41] VITALS: BP 145/96; PULSE 68; RESP 18; TEMP 37.2; BMI 22.4
[2017-09-11 12:10] VITALS: BP 131/79; PULSE 55; RESP 18; TEMP 37; BMI 22.4
--- NOTE | 2017-09-11 12:45 | WC ---
meka lyons Rn aware of pt wound size and she encouraged pt to purcahse stockings at [facility] at 20-30 mmhg . pt agreed will purcahse by next week.
[2017-09-25 14:24] VITALS: BP 130/93; PULSE 78; RESP 18; TEMP 36.6; BMI 22.4
--- NOTE | 2017-09-25 16:29 | PCM.WC.PN ---
(1) Lymphedema Status: Acute Current Visit: Yes Code(s): I89.0 - Lymphedema, not elsewhere classified (2) Nonhealing ulcer of left lower extremity with fat layer exposed Status: Acute Current Visit: Yes Code(s): L97.922 - Non-pressure chronic ulcer of unspecified part of left lower leg with fat layer exposed (3) Hypertension Status: Chronic Current Visit: Yes Code(s): I10 - Essential (primary) hypertension (4) PVD (peripheral vascular disease) Status: Chronic Current Visit: Yes Code(s): I73.9 - Peripheral vascular disease, unspecified Type of Wound Date of Service: 09/25/17 Chief Complaint: Nonhealing ulcer left lower extremity. History of Wound: This is a 77-year-old white female who presents to the wound center today for follow-up of an ulcer of the left lower extremity and cellulitis. She has a past medical history which is significant for hypertension vertigo and peripheral vascular disease. The patient states that her symptom of lower extremity ulceration on the left extremity started approximately 05/15/2017 . She states that she saw her PCP who placed her in an LAVELL boot, which she no longer uses. She states that the smell has improved, the redness is resolving, and the pain is improving as well. She denies any systemic signs of infection. She otherwise denies any fever, chills, nausea, vomiting, shortness of breath, chest pain or pressure, syncope or presyncopal episodes. Progress of Wound: wound healed and epithelialized with the use of Epifix and zehra hose for compression. She denies denies any pain or purulent drainage or systemic signs of infection.Denies any fever, chills, n/v/c/d, chest pain, SOB, synope, or ASTUDILLO. - Physical Exam Vital Signs Temp Pulse Resp BP 97.8 F 78 18 130/93 H 09/25/17 14:24 09/25/17 14:24 09/25/17 14:24 09/25/17 14:24 General: Alert, Oriented x3, Cooperative, No apparent distress HEENT: Atraumatic Cardiovascular: Regular rate Extremities: No clubbing, No cyanosis, No edema, Peripheral Pulses Normal, - - thickened yellow toenails Skin: Ulcer/ Wound - Ulcerration left lower extremity healed with no signs of infection, some purplish discoloration under skin surrounding healed site Wound Measurements and Assessment WC - Nurse 1 - General Ulcer Measurement Start: 09/11/17 12:10 Freq: Status: Active Protocol: Activity Type Activity Date Activity User E-Sign Co-Sign Detail Recorded Client Recorded Date Recorded By Document 09/25/17 14:24 RB [id number] 09/25/17 14:33 RB 09/25/17 14:24 Wound Center Nurse 1 [Ulcer Assessment] #1 left lateral LE -Combined with other wound No -Current Size (cm) - Length 0.1 -Current Size (cm) - Width 0.1 -Current Size (cm) - Depth 0.1 -Total Square Cm 0.01 -Photo Taken No -Epithelialization Small 1-33% -Tunneling No -Undermining/Tunneling No -Circular Undermining No -Classification - Thickness Full Thickness without Exposed Support Structure -Exudate Amt Small (1-33%) -Exudate Type Serosanguineous -Wound Margin Distinct, Outline Attached -Granulation Amt Large (67-100%) -Granulation Quality [place] -Slough/Fibrin Yes -Necrosis Amt Small (1-33%) -Necrotic Tissue Type Adherent Slough -Structure Exposed N/A -Texture (Kajal-wound Skin Appearance) Assessed -Moisture (Kajal-wound Skin Appearance Assessed ) -Color (Kajal-wound Skin Appearance) Assessed -Temperature (Kajal-wound Skin No Abnormality Appearance) (Pt Warm) -Tenderness on Palpation (Kajal-wound No Skin Appearance) -Ulcer Cleansing Rinsed/ Irrigated with Saline -Foul Odor after Cleansing No -Anesthetic Used 4% Lidocaine Solution [Edema Assessment] -Lower Limb Edema Present Yes -Left Calf (cm) 31.5 -Left Ankle (cm) 20.6 WC - Nurse 2 - General Ulcer CM Notes Start: 09/11/17 12:10 Freq: Status: Active Protocol: Activity Type Activity Date Activity User E-Sign Co-Sign Detail Recorded Client Recorded Date Recorded By Document 09/25/17 15:44 DV [id number] 09/25/17 15:45 DV 09/25/17 15:44 Wound Center Nurse 2 [Procedure/Treatment] #1 left lateral LE -Time 15:44 -Correct Patient Yes -Procedure Performed No -Post Debridement Size (cm) - Length 0.1 -Post Debridement Size (cm) - Width 0.1 -Post Debridement Size (cm) - Depth 0.1 -Total Square Cm 0.01 -Wound/Ulcer Outcome Healed- Epithelialized [See Physician Procedure note for Specifics] Pain Scale: 0-10 Numeric [Pain] -Is Patient Pain Free? Yes Musculoskeletal: No Tenderness to Palpation of Joints or Extremities Neurological: Neuro grossly intact Psych/Mental Status: Normal Affect, Appropriate Debridement Note Post-Debridement Measurements/Treatment WC - Nurse 2 - General Ulcer CM Notes Start: 09/11/17 12:10 Freq: Status: Active Protocol: Activity Type Activity Date Activity User E-Sign Co-Sign Detail Recorded Client Recorded Date Recorded By Document 09/25/17 15:44 DV [id number] 09/25/17 15:45 DV 09/25/17 15:44 Wound Center Nurse 2 #1 left lateral LE -Time 15:44 -Correct Patient Yes -Procedure Performed No -Post Debridement Size (cm) - Length 0.1 -Post Debridement Size (cm) - Width 0.1 -Post Debridement Size (cm) - Depth 0.1 -Total Square Cm 0.01 -Wound/Ulcer Outcome Healed- Epithelialized Pain Scale: 0-10 Numeric Is Patient Pain Free? Yes No debridement was completed today Assessment/Plan Active Problems Nonhealing ulcer of left lower extremity with fat layer exposed (Acute) PVD (peripheral vascular disease) (Chronic) Hypertension (Chronic) Lymphedema (Acute) Assessment: Wound has healed with the use of Epifix and zehra hose for compression Plan: I evaluated the patient and discussed the ongoing care plan. The patients wound has healed. Discussed continuing with zehra hose for compression and proper skin care including using eucerin lotion at night. Discussed seeing podiatry to trim her toenails. Continue with high protien diet and taking extra measures to protect newly healed skin. Discussed warning signs that would require follow up. Pt verbalized understanding. RTC PRN. This note was generated with [employer] dictation software. It may contain incorrect words, spelling, and punctuation that were not noted in checking the note before signing. Code Visit Office Visits / Consults: [id number] OV L3 Est
[2017-10-02 14:14] VITALS: BP 139/95; PULSE 72; RESP 18; TEMP 37.3; BMI 22.4
--- NOTE | 2017-10-02 17:22 | PCM.WC.HP ---
(1) Tear of skin of multiple sites of left lower extremity Status: Acute Qualifiers: Encounter type: initial encounter Qualified Code(s): S81.812A - Laceration without foreign body, left lower leg, initial encounter Code(s): S81.812A - Laceration without foreign body, left lower leg, initial encounter (2) Lymphedema Status: Acute Code(s): I89.0 - Lymphedema, not elsewhere classified (3) Hypertension Status: Chronic Code(s): I10 - Essential (primary) hypertension (4) PVD (peripheral vascular disease) Status: Chronic Code(s): I73.9 - Peripheral vascular disease, unspecified History of Present Illness Date of Service: 10/02/17 Chief Complaint: New skin tears left lower extremity x 3 days History of Wound: This is a 77-year-old white female known to me previously who was recently discharged from the [facility] who presents to the wound center today for new skin tears on her left lower extrtemity x 3 days. She has a past medical history which is significant for hypertension, venous insufficiency, vertigo and peripheral vascular disease. The patient states that the skin tears initially occurred after she was concerned about putting on her compression stockings and taped gauze over her previously healed wound so that the compression stocking would not rub against it. After she took the compression stocking off, the skin tears occurred after she took the tape off of the extremity. She states that she tried putting the compression stocking over it while it was actively bleeding and that the compression stocking stuck to her new skin tears which subsequently made them worse after taking off as well. She denies any systemic signs of infection at this time and denies any increase in pain around the skin tears or any purulent drainage. She does note that her previous ulcer continues to be healed. She otherwise denies any fever, chills, nausea, vomiting, shortness of breath, chest pain or pressure, syncope or presyncopal episodes. Past Medical History Past Medical History: Chronic Problems PVD (peripheral vascular disease) (Chronic) Hypertension (Chronic) Surgical History: no surgical history Allergies/Adverse Reactions: Allergies aspirin [ASA] Adverse Reaction (Verified 06/12/17 16:23) Itching latex Adverse Reaction (Verified 06/12/17 16:23) Itching Home Medications: Ambulatory Orders Medication Instructions Recorded Hydrochlorothiazide [Hctz] 12.5 mg PO DAILY 06/12/17 Meclizine HCl 25 mg PO 06/12/17 Metoprolol Succinate/Hctz 06/12/17 [Metoprolol ER-Hctz 25-12.5 mg] Smoking Status: Never smoker Review of Systems Constitutional: Denies: Chills, Fever, Weight Change Eyes: Denies: Pain, Vision Change HEENT: Denies: Difficulty Hearing, Difficulty Swallowing, Sinus Congestion Cardiovascular: Denies: Chest Pain, Palpitations Respiratory: Denies: Cough, Shortness of Breath Gastrointestinal: Denies: Diarrhea, Nausea, Vomiting Genitourinary: Denies: Dysuria, Hematuria Skin: Reports: Wounds - See HPI Endocrine: Denies: Heat/ Cold Intolerance, Polydipsia, Polyuria Hematologic/ Lymphatic: Denies: Easy Bruising, Easy Bleeding - Physical Exam Vital Signs Temp Pulse Resp BP 99.1 F 72 18 139/95 H 10/02/17 14:14 10/02/17 14:14 10/02/17 14:14 10/02/17 14:14 General: Alert, Oriented x3, Cooperative, No apparent distress HEENT: Atraumatic Neck: Supple Lungs: Clear to auscultation, Normal air movement Cardiovascular: Regular rate, Regular Rhythm Abdomen: Bowel Sounds Present Extremities: Edema - Generalized edema bilateral lower extremities, Peripheral Pulses Normal Skin: Ulcer/ Wound - Small skin tear #1 located left anterior lower extremity, site clean with a small amount of slough present. Second skin tear present left posterior lower extremity, slough present as well. No purulent drainage or signs of infection at this time. Musculoskeletal: No Tenderness to Palpation of Joints or Extremities Neurological: Neuro grossly intact Psych/Mental Status: Normal Affect, Alert and oriented to time, place, person, mood and affect Debridement Note Post-Debridement Measurements/Treatment WC - Nurse 2 - General Ulcer CM Notes Start: 09/11/17 12:10 Freq: Status: Active Protocol: Activity Type Activity Date Activity User E-Sign Co-Sign Detail Recorded Client Recorded Date Recorded By Document 09/25/17 15:44 DV [id number] 09/25/17 15:45 DV Document 10/02/17 15:48 DV [id number] 10/02/17 15:52 DV 09/25/17 10/02/17 15:44 15:48 Wound Center Nurse 2 #3 LEFT POSTERIOR LE -Time 15:48 -Correct Patient Yes -Correct Side, Site, Position Yes -Correct Procedure Yes -Procedure Performed Yes -Type of Procedure Debridement -Clinical Debridement Subcutaneous -Post Debridement Size (cm) - Length 2.9 -Post Debridement Size (cm) - Width 2.0 -Post Debridement Size (cm) - Depth 0.1 -Total Square Cm 5.80 -Wound/Ulcer Outcome Not Healed -Ulcer Cleansing Rinsed/ Irrigated with Saline -Foul Odor after Cleansing No -Bioengineered Tissue No -Bleeding Controlled with Pressure -Treatment Response Procedure Tolerated Well #2 LEFT CORONADO -Time 15:49 -Correct Patient Yes -Correct Side, Site, Position Yes -Correct Procedure Yes -Procedure Performed Yes -Type of Procedure Debridement -Clinical Debridement Subcutaneous -Post Debridement Size (cm) - Length 0.3 -Post Debridement Size (cm) - Width 0.9 -Post Debridement Size (cm) - Depth 0.1 -Total Square Cm 0.27 -Wound/Ulcer Outcome Not Healed -Ulcer Cleansing Rinsed/ Irrigated with Saline -Foul Odor after Cleansing No -Bioengineered Tissue No -Bleeding Controlled with Pressure -Treatment Response Procedure Tolerated Well #1 left lateral LE -Time 15:44 -Correct Patient Yes -Procedure Performed No -Post Debridement Size (cm) - Length 0.1 -Post Debridement Size (cm) - Width 0.1 -Post Debridement Size (cm) - Depth 0.1 -Total Square Cm 0.01 -Wound/Ulcer Outcome Healed- Epithelialized Pain Scale: 0-10 Numeric Is Patient Pain Free? Yes Yes Wound debrided: Left anterior lower extremity skin tear Laterality: Left Type of Debridement: Excisional debridement Anesthesia Used: 5% Lidocaine Gel Depth: in the subcutaneous layer Percentage of wound debrided: 100 Instrument Used: 3mm curette Tissue Removed: Slough and devitalized tissue Severity: Fat Layer Exposed Amount of bleeding with debridement: Mild Bleeding Controlled with: Pressure Patient tolerated procedure well - Additional Wound Wound debrided: Left posterior lower extremity skin tear Laterality: Left Type of Debridement: Excisional debridement Anesthesia Used: 5% Lidocaine Gel Depth: in the subcutaneous layer Percentage of wound debrided: 100 Instrument Used: 3mm curette Tissue Removed: Slough and devitalized tissue Severity: Fat Layer Exposed Amount of bleeding with debridement: Mild Bleeding Controlled with: Pressure Patient tolerated procedure: Patient tolerated procedure well Assessment/Plan Assessment: Multiple skin tears left lower extremity caused by tape injury. Chronic venous insufficiency. Bilateral lymphedema Plan: The patient was seen and examined at the wound center today and was updated on the plan of care. The patient's previous nonhealing ulcer of the left lower extremity continues to be healed, however she has 2 new skin tears due to a tape injury. A subcutaneous debridement was performed today. The patient tolerated the procedure well. The patients wound care will consist of: Aquasol Ag moistened applied and covered with a 3M wrap for compression. Wound cultures were collected. Baseline bloodwork done prior and reviewed, patient's pre-albumin was previously low so instructed to increase her protein intake. Vascular studies reviewed from recent visit which demonstrated chronic venous insufficiency and ABIs right 1.15 and left 1.32. Patient educated on the importance of diet on wound healing and instructed to increase protein and vitamin C intake. Patient verbalized understanding. Patient will follow up at wound healing center in one week or sooner if needed. Patient educated again on the signs of systemic or worsening infection that require urgent medical attention and verbalized understanding of this. This note was generated with [employer] dictation software. It may contain incorrect words, spelling, and punctuation that were not noted in checking the note before signing. Code Visit Office Visits / Consults: [id number] OV L4 Est [id number]: [id number] Kaley subq tissue 20 sq cm/<
--- NOTE | 2017-10-08 11:34 | HP.PCM_ITS ---
(1) Tear of skin of multiple sites of left lower extremity Status: Acute Qualifiers: Encounter type: initial encounter Qualified Code(s): S81.812A - Laceration without foreign body, left lower leg, initial encounter Code(s): S81.812A - Laceration without foreign body, left lower leg, initial encounter (2) Lymphedema Status: Acute Code(s): I89.0 - Lymphedema, not elsewhere classified (3) Hypertension Status: Chronic Code(s): I10 - Essential (primary) hypertension (4) PVD (peripheral vascular disease) Status: Chronic Code(s): I73.9 - Peripheral vascular disease, unspecified History of Present Illness Date of Service: 10/02/17 Chief Complaint: New skin tears left lower extremity x 3 days History of Wound: This is a 77-year-old white female known to me previously who was recently discharged from the [facility] who presents to the wound center today for new skin tears on her left lower extrtemity x 3 days. She has a past medical history which is significant for hypertension, venous insufficiency, vertigo and peripheral vascular disease. The patient states that the skin tears initially occurred after she was concerned about putting on her compression stockings and taped gauze over her previously healed wound so that the compression stocking would not rub against it. After she took the compression stocking off, the skin tears occurred after she took the tape off of the extremity. She states that she tried putting the compression stocking over it while it was actively bleeding and that the compression stocking stuck to her new skin tears which subsequently made them worse after taking off as well. She denies any systemic signs of infection at this time and denies any increase in pain around the skin tears or any purulent drainage. She does note that her previous ulcer continues to be healed. She otherwise denies any fever, chills, nausea, vomiting, shortness of breath, chest pain or pressure, syncope or presyncopal episodes. Past Medical History Past Medical History: Chronic Problems PVD (peripheral vascular disease) (Chronic) Hypertension (Chronic) Surgical History: no surgical history Allergies/Adverse Reactions: Allergies aspirin [ASA] Adverse Reaction (Verified 06/12/17 16:23) Itching latex Adverse Reaction (Verified 06/12/17 16:23) Itching Home Medications: Ambulatory Orders Medication Instructions Recorded Hydrochlorothiazide [Hctz] 12.5 mg PO DAILY 06/12/17 Meclizine HCl 25 mg PO 06/12/17 Metoprolol Succinate/Hctz 06/12/17 [Metoprolol ER-Hctz 25-12.5 mg] Smoking Status: Never smoker Review of Systems Constitutional: Denies: Chills, Fever, Weight Change Eyes: Denies: Pain, Vision Change HEENT: Denies: Difficulty Hearing, Difficulty Swallowing, Sinus Congestion Cardiovascular: Denies: Chest Pain, Palpitations Respiratory: Denies: Cough, Shortness of Breath Gastrointestinal: Denies: Diarrhea, Nausea, Vomiting Genitourinary: Denies: Dysuria, Hematuria Skin: Reports: Wounds - See HPI Endocrine: Denies: Heat/ Cold Intolerance, Polydipsia, Polyuria Hematologic/ Lymphatic: Denies: Easy Bruising, Easy Bleeding - Physical Exam Vital Signs Temp Pulse Resp BP 99.1 F 72 18 139/95 H 10/02/17 14:14 10/02/17 14:14 10/02/17 14:14 10/02/17 14:14 General: Alert, Oriented x3, Cooperative, No apparent distress HEENT: Atraumatic Neck: Supple Lungs: Clear to auscultation, Normal air movement Cardiovascular: Regular rate, Regular Rhythm Abdomen: Bowel Sounds Present Extremities: Edema - Generalized edema bilateral lower extremities, Peripheral Pulses Normal Skin: Ulcer/ Wound - Small skin tear #1 located left anterior lower extremity, site clean with a small amount of slough present. Second skin tear present left posterior lower extremity, slough present as well. No purulent drainage or signs of infection at this time. Musculoskeletal: No Tenderness to Palpation of Joints or Extremities Neurological: Neuro grossly intact Psych/Mental Status: Normal Affect, Alert and oriented to time, place, person, mood and affect Debridement Note Post-Debridement Measurements/Treatment WC - Nurse 2 - General Ulcer CM Notes Start: 09/11/17 12:10 Freq: Status: Active Protocol: Activity Type Activity Date Activity User E-Sign Co-Sign Detail Recorded Client Recorded Date Recorded By Document 09/25/17 15:44 DV [id number] 09/25/17 15:45 DV Document 10/02/17 15:48 DV [id number] 10/02/17 15:52 DV 09/25/17 10/02/17 15:44 15:48 Wound Center Nurse 2 #3 LEFT POSTERIOR LE -Time 15:48 -Correct Patient Yes -Correct Side, Site, Position Yes -Correct Procedure Yes -Procedure Performed Yes -Type of Procedure Debridement -Clinical Debridement Subcutaneous -Post Debridement Size (cm) - Length 2.9 -Post Debridement Size (cm) - Width 2.0 -Post Debridement Size (cm) - Depth 0.1 -Total Square Cm 5.80 -Wound/Ulcer Outcome Not Healed -Ulcer Cleansing Rinsed/ Irrigated with Saline -Foul Odor after Cleansing No -Bioengineered Tissue No -Bleeding Controlled with Pressure -Treatment Response Procedure Tolerated Well #2 LEFT CORONADO -Time 15:49 -Correct Patient Yes -Correct Side, Site, Position Yes -Correct Procedure Yes -Procedure Performed Yes -Type of Procedure Debridement -Clinical Debridement Subcutaneous -Post Debridement Size (cm) - Length 0.3 -Post Debridement Size (cm) - Width 0.9 -Post Debridement Size (cm) - Depth 0.1 -Total Square Cm 0.27 -Wound/Ulcer Outcome Not Healed -Ulcer Cleansing Rinsed/ Irrigated with Saline -Foul Odor after Cleansing No -Bioengineered Tissue No -Bleeding Controlled with Pressure -Treatment Response Procedure Tolerated Well #1 left lateral LE -Time 15:44 -Correct Patient Yes -Procedure Performed No -Post Debridement Size (cm) - Length 0.1 -Post Debridement Size (cm) - Width 0.1 -Post Debridement Size (cm) - Depth 0.1 -Total Square Cm 0.01 -Wound/Ulcer Outcome Healed- Epithelialized Pain Scale: 0-10 Numeric Is Patient Pain Free? Yes Yes Wound debrided: Left anterior lower extremity skin tear Laterality: Left Type of Debridement: Excisional debridement Anesthesia Used: 5% Lidocaine Gel Depth: in the subcutaneous layer Percentage of wound debrided: 100 Instrument Used: 3mm curette Tissue Removed: Slough and devitalized tissue Severity: Fat Layer Exposed Amount of bleeding with debridement: Mild Bleeding Controlled with: Pressure Patient tolerated procedure well - Additional Wound Wound debrided: Left posterior lower extremity skin tear Laterality: Left Type of Debridement: Excisional debridement Anesthesia Used: 5% Lidocaine Gel Depth: in the subcutaneous layer Percentage of wound debrided: 100 Instrument Used: 3mm curette Tissue Removed: Slough and devitalized tissue Severity: Fat Layer Exposed Amount of bleeding with debridement: Mild Bleeding Controlled with: Pressure Patient tolerated procedure: Patient tolerated procedure well Assessment/Plan Assessment: Multiple skin tears left lower extremity caused by tape injury. Chronic venous insufficiency. Bilateral lymphedema Plan: The patient was seen and examined at the wound center today and was updated on the plan of care. The patient's previous nonhealing ulcer of the left lower extremity continues to be healed, however she has 2 new skin tears due to a tape injury. A subcutaneous debridement was performed today. The patient tolerated the procedure well. The patients wound care will consist of: Aquasol Ag moistened applied and covered with a 3M wrap for compression. Wound cultures were collected. Baseline bloodwork done prior and reviewed, patient's pre-albumin was previously low so instructed to increase her protein intake. Vascular studies reviewed from recent visit which demonstrated chronic venous insufficiency and ABIs right 1.15 and left 1.32. Patient educated on the importance of diet on wound healing and instructed to increase protein and vitamin C intake. Patient verbalized understanding. Patient will follow up at wound healing center in one week or sooner if needed. Patient educated again on the signs of systemic or worsening infection that require urgent medical attention and verbalized understanding of this. This note was generated with [employer] dictation software. It may contain incorrect words, spelling, and punctuation that were not noted in checking the note before signing. Code Visit Office Visits / Consults: [id number] OV L4 Est 111xxx-113xx: [id number] Kaley subq tissue 20 sq cm/<
== END 2017-10-06 23:59 ==
LOC: WC 13:30
PROVIDERS: Visit Provider Nurse Practitioner Family
DX: I73.9 Peripheral vascular disease, unspecified (principal); L97.822 Non-pressure chronic ulcer of other part of left lower leg with fat layer exposed; I89.0 Lymphedema, not elsewhere classified; I10 Essential (primary) hypertension; Z79.899 Other long term (current) drug therapy
CPT/HCPCS: 11042; 29581; 87070; 87075; 87077; 87186; 87205; 99211; 99212; G0463

== ENCOUNTER 2017-10-09 10:49 | Outpatient (RCR) | payer MEDICARE, SELFPAY ==
[2017-10-07 00:35] VITALS: BP 145/96; PULSE 72; RESP 18; TEMP 37.3; BMI 22.4
[2017-10-09 13:48] VITALS: BP 133/68; PULSE 60; RESP 16; TEMP 36.6; BMI 22.4
--- NOTE | 2017-10-09 17:17 | PCM.WC.PN ---
(1) Tear of skin of multiple sites of left lower extremity Status: Acute Qualifiers: Encounter type: initial encounter Qualified Code(s): S81.812A - Laceration without foreign body, left lower leg, initial encounter Code(s): S81.812A - Laceration without foreign body, left lower leg, initial encounter (2) PVD (peripheral vascular disease) Status: Chronic Code(s): I73.9 - Peripheral vascular disease, unspecified Type of Wound Date of Service: 10/14/17 Chief Complaint: New skin tears left lower extremity. History of Wound: This is a 77-year-old white female known to me previously who was recently discharged from the [facility] who presents to the wound center today for new skin tears on her left lower extrtemity x 3 days. She has a past medical history which is significant for hypertension, venous insufficiency, vertigo and peripheral vascular disease. The patient states that the skin tears initially occurred after she was concerned about putting on her compression stockings and taped gauze over her previously healed wound so that the compression stocking would not rub against it. After she took the compression stocking off, the skin tears occurred after she took the tape off of the extremity. She states that she tried putting the compression stocking over it while it was actively bleeding and that the compression stocking stuck to her new skin tears which subsequently made them worse after taking off as well. She denies any systemic signs of infection at this time and denies any increase in pain around the skin tears or any purulent drainage. She does note that her previous ulcer continues to be healed. She otherwise denies any fever, chills, nausea, vomiting, shortness of breath, chest pain or pressure, syncope or presyncopal episodes. Progress of Wound: wound healed and epithelialized without signs of infection. She denies denies any pain or purulent drainage or systemic signs of infection.Denies any fever, chills, n/v/c/d, chest pain, SOB, synope, or ASTUDILLO. - Physical Exam Vital Signs Temp Pulse Resp BP 98 F 60 16 133/68 H 10/09/17 13:48 10/09/17 13:48 10/09/17 13:48 10/09/17 13:48 General: Alert, Oriented x3, Cooperative, No apparent distress HEENT: PERRLA, EOMI Oral: Moist Mucosa Lungs: Clear to auscultation, Normal air movement Cardiovascular: Regular rate, Regular Rhythm Extremities: No clubbing, No cyanosis, No edema Skin: Ulcer/ Wound - Skin tears on left lower extremity have healed and are well epithelialized Neurological: Cranial nerves II-XII grossly intact Psych/Mental Status: Normal Affect, Alert and oriented to time, place, person, mood and affect Debridement Note No debridement was completed today Assessment/Plan Assessment: Skin tears on the left lower extremity have healed with the use of Aquacel Ag and 3M wraps Plan: I evaluated the patient and discussed the ongoing care plan. The patients wound has healed. Discussed continuing with zehra palmer for compression and proper skin care including using eucerin lotion at night. Discussed not utilizing tape on her skin due to the high incidence of skin tears that the patient has. Discussed seeing podiatry to trim her toenails. Continue with high protien diet and taking extra measures to protect newly healed skin. Discussed warning signs that would require follow up. Pt verbalized understanding. RTC PRN. This note was generated with [employer] dictation software. It may contain incorrect words, spelling, and punctuation that were not noted in checking the note before signing. Code Visit Office Visits / Consults: [id number] OV L3 Est
== END 2017-11-06 23:59 ==
LOC: WC 10:49
PROVIDERS: Visit Provider Nurse Practitioner Family
DX: S81.812A Laceration without foreign body, left lower leg, initial encounter (principal); I73.9 Peripheral vascular disease, unspecified; I10 Essential (primary) hypertension
CPT/HCPCS: 99212; G0463

== ENCOUNTER 2018-08-06 15:15 | Outpatient (RCR) | payer MEDICARE, SELFPAY ==
[2018-07-16 14:55] VITALS: BP 120/76; PULSE 81; RESP 16; TEMP 36.4; BMI 21.4
--- NOTE | 2018-07-16 17:47 | PCM.WC.HP ---
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 Status: Acute Current Visit: Yes Code(s): L97.922 - Non-pressure chronic ulcer of unspecified part of left lower leg with fat layer exposed Comment: Venous leg ulcer (2) Bilateral lower extremity edema Status: Acute Current Visit: Yes Code(s): R60.0 - Localized edema (3) Hypertension Status: Chronic Current Visit: No Code(s): I10 - Essential (primary) hypertension (4) PVD (peripheral vascular disease) Status: Chronic Current Visit: No Code(s): I73.9 - Peripheral vascular disease, unspecified History of Present Illness Date of Service: 07/16/18 Chief Complaint: Nonhealing ulcer left lower extremity. History of Wound: This is a 78-year-old white female known to me previously who was recently discharged from the [facility] in October 2017 who presents to the wound center today for nonhealing ulcer on her left lower extrtemity x 2 weeks. She has a past medical history which is significant for hypertension, venous insufficiency, vertigo and peripheral vascular disease. The patient has not been utilizing any intervention for wound care and has not been utilizing any compression as well. She does state that the surrounding area around the ulcer is slightly red and warm to touch. She denies any systemic signs of infection at this time and denies any increase in pain around the skin tears or any purulent drainage. She otherwise denies any fever, chills, nausea, vomiting, shortness of breath, chest pain or pressure, syncope or presyncopal episodes. Past Medical History Past Medical History: Chronic Problems PVD (peripheral vascular disease) (Chronic) Hypertension (Chronic) Surgical History: no surgical history Allergies/Adverse Reactions: Allergies aspirin [ASA] Adverse Reaction (Verified 06/12/17 16:23) Itching latex Adverse Reaction (Verified 06/12/17 16:23) Itching Home Medications: Ambulatory Orders Medication Instructions Recorded Hydrochlorothiazide [Hctz] 12.5 mg PO DAILY 06/12/17 Meclizine HCl 25 mg PO 06/12/17 Metoprolol Benitez/Hydrochlorothiaz 06/12/17 [Metoprolol ER-Hctz 25-12.5 mg] Smoking Status: Never smoker Review of Systems Constitutional: Denies: Chills, Fever, Weight Change Eyes: Denies: Pain, Vision Change HEENT: Denies: Difficulty Hearing, Difficulty Swallowing, Sinus Congestion Cardiovascular: Denies: Chest Pain, Palpitations Respiratory: Denies: Cough, Shortness of Breath Gastrointestinal: Denies: Diarrhea, Nausea, Vomiting Genitourinary: Denies: Dysuria, Hematuria Skin: Reports: Wounds - See HPI Endocrine: Denies: Heat/ Cold Intolerance, Polydipsia, Polyuria Hematologic/ Lymphatic: Denies: Easy Bruising, Easy Bleeding - Physical Exam Vital Signs Temp Pulse Resp BP 97.6 F L 81 16 120/76 07/16/18 14:55 07/16/18 14:55 07/16/18 14:55 07/16/18 14:55 General: Alert, Oriented x3, Cooperative, No apparent distress HEENT: Atraumatic Oral: Moist Mucosa Lungs: Clear to auscultation, Normal air movement Cardiovascular: Regular rate, Regular Rhythm, Normal S1, Normal S2, No murmurs Abdomen: Bowel Sounds Present, Soft, Non Tender Extremities: No clubbing, No cyanosis, Diminished Peripheral Pulses - Bilateral dorsal pedis pulses, Edema - Generalized edema to right lower extremity +1 pitting edema to left lower extremity Skin: Ulcer/ Wound - Ulceration to left lower extremity with adherent slough and necrotic tissue, periwound bed is slightly erythematous and surrounding tissue is somewhat warm and tender to touch, otherwise no purulent drainage or streaking present. Wound Measurements and Assessment WC - Nurse 1 - General Ulcer Measurement Start: 07/16/18 14:53 Freq: Status: Active Protocol: Activity Type Activity Date Activity User E-Sign Co-Sign Detail Recorded Client Recorded Date Recorded By Document 07/16/18 14:55 [id number] 07/16/18 15:49 AN 07/16/18 14:55 Wound Center Nurse 1 [Ulcer Assessment] #4 LEFT LATERAL LOWER LEG -Current Size (cm) - Length 0.4 -Current Size (cm) - Width 0.2 -Current Size (cm) - Depth 0.1 -Total Square Cm 0.08 -Date of Last Picture (Recall this 07/16/18 field) -Photo Taken Yes -Epithelialization None Present -Tunneling No -Undermining/Tunneling No -Circular Undermining No -Classification - Thickness Full Thickness without Exposed Support Structure -Exudate Amt Small -Exudate Type Serosanguineous -Wound Margin Distinct, Outline Attached -Granulation Amt Large (67-100%) -Granulation Quality Red -Slough/Fibrin No -Necrosis Amt Large (67-100%) -Necrotic Tissue Type Eschar -Structure Exposed None/Limited to Skin Breakdown -Texture (Kajal-wound Skin Appearance) Assessed Localized Edema -Moisture (Kajal-wound Skin Appearance Assessed ) -Color (Kajal-wound Skin Appearance) Assessed Hemosiderin Staining -Temperature (Kajal-wound Skin No Abnormality Appearance) (Pt Warm) -Tenderness on Palpation (Kajal-wound Yes Skin Appearance) -Ulcer Cleansing Rinsed/ Irrigated with Saline -Foul Odor after Cleansing No -Anesthetic Used 5% Lidocaine Gel [Edema Assessment] -Right Calf (cm) 30.6 -Right Ankle (cm) 20.9 -Left Calf (cm) 31 -Left Ankle (cm) 23.5 WC - Nurse 2 - General Ulcer CM Notes Start: 07/16/18 14:53 Freq: Status: Active Protocol: Activity Type Activity Date Activity User E-Sign Co-Sign Detail Recorded Client Recorded Date Recorded By Document 07/16/18 16:03 DV [id number] 07/16/18 16:09 DV 07/16/18 16:03 Wound Center Nurse 2 [Procedure/Treatment] #4 LEFT LATERAL LOWER LEG -Time 16:04 -Correct Patient Yes -Correct Side, Site, Position Yes -Correct Procedure Yes -Procedure Performed Yes -Type of Procedure Debridement -Clinical Debridement Subcutaneous -Post Debridement Size (cm) - Length 2.7 -Post Debridement Size (cm) - Width 1.6 -Post Debridement Size (cm) - Depth 0.1 -Total Square Cm 4.32 -Wound/Ulcer Outcome Not Healed -Ulcer Cleansing Rinsed/ Irrigated with Saline -Foul Odor after Cleansing No -Bioengineered Tissue No -Bleeding Controlled with Pressure -Offloading No -Treatment Response Procedure Tolerated Well [See Physician Procedure note for Specifics] Pain Scale: 0-10 Numeric [Pain] -Is Patient Pain Free? Yes Neurological: Neuro grossly intact Psych/Mental Status: Normal Affect, Appropriate, Alert and oriented to time, place, person, mood and affect Debridement Note Post-Debridement Measurements/Treatment JACK - Nurse 2 - General Ulcer CM Notes Start: 07/16/18 14:53 Freq: Status: Active Protocol: Activity Type Activity Date Activity User E-Sign Co-Sign Detail Recorded Client Recorded Date Recorded By Document 07/16/18 16:03 DV [id number] 07/16/18 16:09 DV 07/16/18 16:03 Wound Center Nurse 2 #4 LEFT LATERAL LOWER LEG -Time 16:04 -Correct Patient Yes -Correct Side, Site, Position Yes -Correct Procedure Yes -Procedure Performed Yes -Type of Procedure Debridement -Clinical Debridement Subcutaneous -Post Debridement Size (cm) - Length 2.7 -Post Debridement Size (cm) - Width 1.6 -Post Debridement Size (cm) - Depth 0.1 -Total Square Cm 4.32 -Wound/Ulcer Outcome Not Healed -Ulcer Cleansing Rinsed/ Irrigated with Saline -Foul Odor after Cleansing No -Bioengineered Tissue No -Bleeding Controlled with Pressure -Offloading No -Treatment Response Procedure Tolerated Well Pain Scale: 0-10 Numeric Is Patient Pain Free? Yes Wound debrided: Left lower extremity venous leg ulcer Laterality: Left Type of Debridement: Excisional debridement Anesthesia Used: 5% Lidocaine Gel Depth: in the subcutaneous layer Percentage of wound debrided: 100 Instrument Used: 5mm curette Tissue Removed: Slough and devitalized tissue Severity: Fat Layer Exposed Amount of bleeding with debridement: Mild Bleeding Controlled with: Pressure Patient tolerated procedure well Assessment/Plan Active Problems Bilateral lower extremity edema (Acute) Nonhealing ulcer of left lower extremity with fat layer exposed (Acute) Venous leg ulcer Assessment: Nonhealing venous leg ulcer to left lower extremity Plan: The patient was seen and examined at the wound center today and was updated on the plan of care. A subcutaneous debridement was performed today. The patient tolerated the procedure well. The patients wound care will consist of: Applying hydrogel silver to the wound daily and cover with gauze and double Tubigrip's for compression. Wound cultures were collected. Vascular studies reviewed from July 2017 and demonstrated chronic venous insufficiency and right HARRISON 1.15 and left HARRISON 1.32.. Patient educated on the importance of diet on wound healing and instructed to increase protein and vitamin C intake. Patient verbalized understanding. Patient will follow up at wound healing center in one week or sooner if needed. Patient educated on signs and symptoms of infection and cellulitis that require urgent medical attention. This note was generated with [employer] software. It may contain incorrect words, spelling, and punctuation that were not noted in checking the note before signing. Code Visit Office Visits / Consults: [id number] OV L4 Est 111xxx-113xx: [id number] Kaley subq tissue 20 sq cm/<
--- NOTE | 2018-07-16 17:52 | HP.PCM_ITS ---
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 Status: Acute Current Visit: Yes Code(s): L97.922 - Non-pressure chronic ulcer of unspecified part of left lower leg with fat layer exposed Comment: Venous leg ulcer (2) Bilateral lower extremity edema Status: Acute Current Visit: Yes Code(s): R60.0 - Localized edema (3) Hypertension Status: Chronic Current Visit: No Code(s): I10 - Essential (primary) hypertension (4) PVD (peripheral vascular disease) Status: Chronic Current Visit: No Code(s): I73.9 - Peripheral vascular disease, unspecified History of Present Illness Date of Service: 07/16/18 Chief Complaint: Nonhealing ulcer left lower extremity. History of Wound: This is a 78-year-old white female known to me previously who was recently discharged from the [facility] in October 2017 who presents to the wound center today for nonhealing ulcer on her left lower extrtemity x 2 weeks. She has a past medical history which is significant for hypertension, venous insufficiency, vertigo and peripheral vascular disease. The patient has not been utilizing any intervention for wound care and has not been utilizing any compression as well. She does state that the surrounding area around the ulcer is slightly red and warm to touch. She denies any systemic signs of infection at this time and denies any increase in pain around the skin tears or any purulent drainage. She otherwise denies any fever, chills, nausea, vomiting, shortness of breath, chest pain or pressure, syncope or presyncopal episodes. Past Medical History Past Medical History: Chronic Problems PVD (peripheral vascular disease) (Chronic) Hypertension (Chronic) Surgical History: no surgical history Allergies/Adverse Reactions: Allergies aspirin [ASA] Adverse Reaction (Verified 06/12/17 16:23) Itching latex Adverse Reaction (Verified 06/12/17 16:23) Itching Home Medications: Ambulatory Orders Medication Instructions Recorded Hydrochlorothiazide [Hctz] 12.5 mg PO DAILY 06/12/17 Meclizine HCl 25 mg PO 06/12/17 Metoprolol Benitez/Hydrochlorothiaz 06/12/17 [Metoprolol ER-Hctz 25-12.5 mg] Smoking Status: Never smoker Review of Systems Constitutional: Denies: Chills, Fever, Weight Change Eyes: Denies: Pain, Vision Change HEENT: Denies: Difficulty Hearing, Difficulty Swallowing, Sinus Congestion Cardiovascular: Denies: Chest Pain, Palpitations Respiratory: Denies: Cough, Shortness of Breath Gastrointestinal: Denies: Diarrhea, Nausea, Vomiting Genitourinary: Denies: Dysuria, Hematuria Skin: Reports: Wounds - See HPI Endocrine: Denies: Heat/ Cold Intolerance, Polydipsia, Polyuria Hematologic/ Lymphatic: Denies: Easy Bruising, Easy Bleeding - Physical Exam Vital Signs Temp Pulse Resp BP 97.6 F L 81 16 120/76 07/16/18 14:55 07/16/18 14:55 07/16/18 14:55 07/16/18 14:55 General: Alert, Oriented x3, Cooperative, No apparent distress HEENT: Atraumatic Oral: Moist Mucosa Lungs: Clear to auscultation, Normal air movement Cardiovascular: Regular rate, Regular Rhythm, Normal S1, Normal S2, No murmurs Abdomen: Bowel Sounds Present, Soft, Non Tender Extremities: No clubbing, No cyanosis, Diminished Peripheral Pulses - Bilateral dorsal pedis pulses, Edema - Generalized edema to right lower extremity +1 pitting edema to left lower extremity Skin: Ulcer/ Wound - Ulceration to left lower extremity with adherent slough and necrotic tissue, periwound bed is slightly erythematous and surrounding tissue is somewhat warm and tender to touch, otherwise no purulent drainage or streaking present. Wound Measurements and Assessment WC - Nurse 1 - General Ulcer Measurement Start: 07/16/18 14:53 Freq: Status: Active Protocol: Activity Type Activity Date Activity User E-Sign Co-Sign Detail Recorded Client Recorded Date Recorded By Document 07/16/18 14:55 [id number] 07/16/18 15:49 AN 07/16/18 14:55 Wound Center Nurse 1 [Ulcer Assessment] #4 LEFT LATERAL LOWER LEG -Current Size (cm) - Length 0.4 -Current Size (cm) - Width 0.2 -Current Size (cm) - Depth 0.1 -Total Square Cm 0.08 -Date of Last Picture (Recall this 07/16/18 field) -Photo Taken Yes -Epithelialization None Present -Tunneling No -Undermining/Tunneling No -Circular Undermining No -Classification - Thickness Full Thickness without Exposed Support Structure -Exudate Amt Small -Exudate Type Serosanguineous -Wound Margin Distinct, Outline Attached -Granulation Amt Large (67-100%) -Granulation Quality Red -Slough/Fibrin No -Necrosis Amt Large (67-100%) -Necrotic Tissue Type Eschar -Structure Exposed None/Limited to Skin Breakdown -Texture (Kajal-wound Skin Appearance) Assessed Localized Edema -Moisture (Kajal-wound Skin Appearance Assessed ) -Color (Kajal-wound Skin Appearance) Assessed Hemosiderin Staining -Temperature (Kajal-wound Skin No Abnormality Appearance) (Pt Warm) -Tenderness on Palpation (Kajal-wound Yes Skin Appearance) -Ulcer Cleansing Rinsed/ Irrigated with Saline -Foul Odor after Cleansing No -Anesthetic Used 5% Lidocaine Gel [Edema Assessment] -Right Calf (cm) 30.6 -Right Ankle (cm) 20.9 -Left Calf (cm) 31 -Left Ankle (cm) 23.5 WC - Nurse 2 - General Ulcer CM Notes Start: 07/16/18 14:53 Freq: Status: Active Protocol: Activity Type Activity Date Activity User E-Sign Co-Sign Detail Recorded Client Recorded Date Recorded By Document 07/16/18 16:03 DV [id number] 07/16/18 16:09 DV 07/16/18 16:03 Wound Center Nurse 2 [Procedure/Treatment] #4 LEFT LATERAL LOWER LEG -Time 16:04 -Correct Patient Yes -Correct Side, Site, Position Yes -Correct Procedure Yes -Procedure Performed Yes -Type of Procedure Debridement -Clinical Debridement Subcutaneous -Post Debridement Size (cm) - Length 2.7 -Post Debridement Size (cm) - Width 1.6 -Post Debridement Size (cm) - Depth 0.1 -Total Square Cm 4.32 -Wound/Ulcer Outcome Not Healed -Ulcer Cleansing Rinsed/ Irrigated with Saline -Foul Odor after Cleansing No -Bioengineered Tissue No -Bleeding Controlled with Pressure -Offloading No -Treatment Response Procedure Tolerated Well [See Physician Procedure note for Specifics] Pain Scale: 0-10 Numeric [Pain] -Is Patient Pain Free? Yes Neurological: Neuro grossly intact Psych/Mental Status: Normal Affect, Appropriate, Alert and oriented to time, place, person, mood and affect Debridement Note Post-Debridement Measurements/Treatment JACK - Nurse 2 - General Ulcer CM Notes Start: 07/16/18 14:53 Freq: Status: Active Protocol: Activity Type Activity Date Activity User E-Sign Co-Sign Detail Recorded Client Recorded Date Recorded By Document 07/16/18 16:03 DV [id number] 07/16/18 16:09 DV 07/16/18 16:03 Wound Center Nurse 2 #4 LEFT LATERAL LOWER LEG -Time 16:04 -Correct Patient Yes -Correct Side, Site, Position Yes -Correct Procedure Yes -Procedure Performed Yes -Type of Procedure Debridement -Clinical Debridement Subcutaneous -Post Debridement Size (cm) - Length 2.7 -Post Debridement Size (cm) - Width 1.6 -Post Debridement Size (cm) - Depth 0.1 -Total Square Cm 4.32 -Wound/Ulcer Outcome Not Healed -Ulcer Cleansing Rinsed/ Irrigated with Saline -Foul Odor after Cleansing No -Bioengineered Tissue No -Bleeding Controlled with Pressure -Offloading No -Treatment Response Procedure Tolerated Well Pain Scale: 0-10 Numeric Is Patient Pain Free? Yes Wound debrided: Left lower extremity venous leg ulcer Laterality: Left Type of Debridement: Excisional debridement Anesthesia Used: 5% Lidocaine Gel Depth: in the subcutaneous layer Percentage of wound debrided: 100 Instrument Used: 5mm curette Tissue Removed: Slough and devitalized tissue Severity: Fat Layer Exposed Amount of bleeding with debridement: Mild Bleeding Controlled with: Pressure Patient tolerated procedure well Assessment/Plan Active Problems Bilateral lower extremity edema (Acute) Nonhealing ulcer of left lower extremity with fat layer exposed (Acute) Venous leg ulcer Assessment: Nonhealing venous leg ulcer to left lower extremity Plan: The patient was seen and examined at the wound center today and was updated on the plan of care. A subcutaneous debridement was performed today. The patient tolerated the procedure well. The patients wound care will consist of: Applying hydrogel silver to the wound daily and cover with gauze and double Tubigrip's for compression. Wound cultures were collected. Vascular studies reviewed from July 2017 and demonstrated chronic venous insufficiency and right HARRISON 1.15 and left HARRISON 1.32.. Patient educated on the importance of diet on wound healing and instructed to increase protein and vitamin C intake. Patient verbalized understanding. Patient will follow up at wound healing center in one week or sooner if needed. Patient educated on signs and symptoms of infection and cellulitis that require urgent medical attention. This note was generated with [employer] software. It may contain incorrect words, spelling, and punctuation that were not noted in checking the note before signing. Code Visit Office Visits / Consults: [id number] OV L4 Est 111xxx-113xx: [id number] Kaley subq tissue 20 sq cm/<
[2018-07-16 20:44] LABS: M R Staph aureus DNA By PCR Negative (Negative); Staph aureus DNA By PCR POSITIVE (Negative)
[2018-07-16 20:45] LABS: Probe Check PASS
[2018-07-23 14:35] VITALS: BP 125/81; PULSE 77; RESP 18; TEMP 36.4; BMI 21.4
[2018-07-27 13:52] VITALS: BP 116/68; PULSE 65; RESP 16; TEMP 36.4; BMI 21.4
--- NOTE | 2018-07-27 15:31 | PCM.WC.PN ---
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 Status: Acute Current Visit: Yes Code(s): L97.922 - Non-pressure chronic ulcer of unspecified part of left lower leg with fat layer exposed Comment: Venous leg ulcer (2) Bilateral lower extremity edema Status: Acute Current Visit: Yes Code(s): R60.0 - Localized edema (3) Hypertension Status: Chronic Current Visit: Yes Code(s): I10 - Essential (primary) hypertension (4) PVD (peripheral vascular disease) Status: Chronic Current Visit: Yes Code(s): I73.9 - Peripheral vascular disease, unspecified (5) Cellulitis of left lower extremity Status: Acute Current Visit: Yes Code(s): L03.116 - Cellulitis of left lower limb (6) Staphylococcus aureus infection Status: Acute Current Visit: Yes Code(s): A49.01 - Methicillin susceptible Staphylococcus aureus infection, unspecified site Type of Wound Date of Service: 07/23/18 Chief Complaint: Nonhealing ulcer left lower extremity. History of Wound: This is a 78-year-old white female known to me previously who was recently discharged from the [facility] in October 2017 who presents to the wound center today for nonhealing ulcer on her left lower extrtemity x 2 weeks. She has a past medical history which is significant for hypertension, venous insufficiency, vertigo and peripheral vascular disease. The patient has not been utilizing any intervention for wound care and has not been utilizing any compression as well. She does state that the surrounding area around the ulcer is slightly red and warm to touch. She denies any systemic signs of infection at this time and denies any increase in pain around the skin tears or any purulent drainage. She otherwise denies any fever, chills, nausea, vomiting, shortness of breath, chest pain or pressure, syncope or presyncopal episodes. Progress of Wound: Site has worsened, it appears that patient has been scratching and picking at the site. Wound cultures were reviewed which demonstrated staph aureus and anaerobic cocci which she was started on doxycycline and Flagyl for today. Denies any signs of systemic infection though does state that the surrounding periwound bed is warm and tender to touch. - Physical Exam Vital Signs Temp Pulse Resp BP 97.5 F L 65 16 116/68 07/27/18 13:52 07/27/18 13:52 07/27/18 13:52 07/27/18 13:52 General: Alert, Oriented x3, Cooperative, No apparent distress HEENT: Atraumatic Lungs: Clear to auscultation Cardiovascular: Regular rate Abdomen: Soft, Non Tender Extremities: No clubbing, No cyanosis, Diminished Peripheral Pulses, Edema - Generalized bilateral lower extremity edema Skin: Ulcer/ Wound - Ulceration to left lower extremity with adherent slough and surrounding periwound bed is inflamed and tender to touch, slight surrounding wound is warm and red consistent with that of cellulitis, margins were outlined, no streaking present Wound Measurements and Assessment WC - Nurse 1 - General Ulcer Measurement Start: 07/16/18 14:53 Freq: Status: Active Protocol: Activity Type Activity Date Activity User E-Sign Co-Sign Detail Recorded Client Recorded Date Recorded By Document 07/27/18 13:52 DOLORES [id number] 07/27/18 14:06 DOLORES 07/27/18 13:52 Wound Center Nurse 1 [Ulcer Assessment] #4 LEFT LATERAL LOWER LEG -Combined with other wound No -Current Size (cm) - Length 3.4 -Current Size (cm) - Width 1.5 -Current Size (cm) - Depth 0.2 -Total Square Cm 5.10 -Photo Taken No -Epithelialization Small 1-33% -Tunneling No -Undermining/Tunneling No -Circular Undermining No -Exudate Amt Small -Exudate Type Serosanguineous -Wound Margin Flat & Intact -Granulation Amt Small (1-33%) -Granulation Quality [place] Red -Slough/Fibrin Yes -Necrosis Amt Large (67-100%) -Necrotic Tissue Type Adherent Slough -Structure Exposed N/A -Texture (Kajal-wound Skin Appearance) Assessed Localized Edema -Moisture (Kajal-wound Skin Appearance Assessed ) Dry/Scaly -Color (Kajal-wound Skin Appearance) Assessed Hemosiderin Staining -Temperature (Kajal-wound Skin No Abnormality Appearance) (Pt Warm) -Ulcer Cleansing Wound Cleanser -Foul Odor after Cleansing No [Edema Assessment] -Lower Limb Edema Present Yes -Left Calf (cm) 29.3 -Left Ankle (cm) 21.6 Neurological: Neuro grossly intact Psych/Mental Status: Normal Affect, Appropriate, Alert and oriented to time, place, person, mood and affect Debridement Note Post-Debridement Measurements/Treatment WC - Nurse 2 - General Ulcer CM Notes Start: 07/16/18 14:53 Freq: Status: Active Protocol: Activity Type Activity Date Activity User E-Sign Co-Sign Detail Recorded Client Recorded Date Recorded By Document 07/16/18 16:03 DV [id number] 07/16/18 16:09 DV Document 07/23/18 15:27 DV [id number] 07/23/18 15:30 DV 07/16/18 07/23/18 16:03 15:27 Wound Center Nurse 2 #4 LEFT LATERAL LOWER LEG -Time 16:04 15:27 -Correct Patient Yes Yes -Correct Side, Site, Position Yes Yes -Correct Procedure Yes Yes -Procedure Performed Yes Yes -Type of Procedure Debridement Debridement -Clinical Debridement Subcutaneous Subcutaneous -Post Debridement Size (cm) - Length 2.7 3.8 -Post Debridement Size (cm) - Width 1.6 2.0 -Post Debridement Size (cm) - Depth 0.1 0.2 -Total Square Cm 4.32 7.60 -Wound/Ulcer Outcome Not Healed Not Healed -Ulcer Cleansing Rinsed/ Rinsed/ Irrigated with Irrigated with Saline Saline -Foul Odor after Cleansing No No -Bioengineered Tissue No No -Bleeding Controlled with Pressure Pressure -Offloading No No -Treatment Response Procedure Procedure Tolerated Well Tolerated Well Pain Scale: 0-10 Numeric Is Patient Pain Free? Yes Yes Wound debrided: Nonhealing venous leg ulcer to left lower extremity Laterality: Left Type of Debridement: Excisional debridement Anesthesia Used: 5% Lidocaine Gel Depth: in the subcutaneous layer Percentage of wound debrided: 100 Instrument Used: 7mm curette Tissue Removed: Slough and devitalized tissue Severity: Fat Layer Exposed Amount of bleeding with debridement: Mild Bleeding Controlled with: Pressure Patient tolerated procedure well Assessment/Plan Active Problems Bilateral lower extremity edema (Acute) Cellulitis of left lower extremity (Acute) Staphylococcus aureus infection (Acute) Nonhealing ulcer of left lower extremity with fat layer exposed (Acute) Venous leg ulcer PVD (peripheral vascular disease) (Chronic) Hypertension (Chronic) Assessment: Nonhealing venous leg ulcer to left lower extremity with coexisting cellulitis Plan: The patient was seen and examined at the wound center today and was updated on the plan of care. A subcutaneous debridement was performed today. The patient tolerated the procedure well. The patients wound care will consist of: Applying Aquacel silver to the site and light 3M wrap for compression as she is done well with this in the past and return Friday for wound check. Wound cultures were collected prior and showed staph aureus and anaerobic cocci and patient was started on doxycycline and Flagyl. Vascular studies reviewed from July 2017 and demonstrated chronic venous insufficiency and right HARRISON 1.15 and left HARRISON 1.32.. Patient educated on the importance of diet on wound healing and instructed to increase protein and vitamin C intake. Patient verbalized understanding. Patient will follow up at wound healing center in one week or sooner if needed. Patient educated on signs and symptoms of infection and cellulitis that require urgent medical attention. This note was generated with [employer] dictation software. It may contain incorrect words, spelling, and punctuation that were not noted in checking the note before signing. Code Visit 111xxx-113xx: [id number] Kaley subq tissue 20 sq cm/<
--- NOTE | 2018-07-28 15:35 | PN.PCM_ITS ---
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 Status: Acute Current Visit: Yes Code(s): L97.922 - Non-pressure chronic ulcer of unspecified part of left lower leg with fat layer exposed Comment: Venous leg ulcer (2) Bilateral lower extremity edema Status: Acute Current Visit: Yes Code(s): R60.0 - Localized edema (3) Hypertension Status: Chronic Current Visit: Yes Code(s): I10 - Essential (primary) hypertension (4) PVD (peripheral vascular disease) Status: Chronic Current Visit: Yes Code(s): I73.9 - Peripheral vascular disease, unspecified (5) Cellulitis of left lower extremity Status: Acute Current Visit: Yes Code(s): L03.116 - Cellulitis of left lower limb (6) Staphylococcus aureus infection Status: Acute Current Visit: Yes Code(s): A49.01 - Methicillin susceptible Staphylococcus aureus infection, unspecified site Type of Wound Date of Service: 07/23/18 Chief Complaint: Nonhealing ulcer left lower extremity. History of Wound: This is a 78-year-old white female known to me previously who was recently discharged from the [facility] in October 2017 who presents to the wound center today for nonhealing ulcer on her left lower extrtemity x 2 weeks. She has a past medical history which is significant for hypertension, venous insufficiency, vertigo and peripheral vascular disease. The patient has not been utilizing any intervention for wound care and has not been utilizing any compression as well. She does state that the surrounding area around the ulcer is slightly red and warm to touch. She denies any systemic signs of infection at this time and denies any increase in pain around the skin tears or any purulent drainage. She otherwise denies any fever, chills, nausea, vomiting, shortness of breath, chest pain or pressure, syncope or presyncopal episodes. Progress of Wound: Site has worsened, it appears that patient has been scra tching and picking at the site. Wound cultures were reviewed which demonstrated staph aureus and anaerobic cocci which she was started on doxycycline and Flagyl for today. Denies any signs of systemic infection though does state that the surrounding periwound bed is warm and tender to touch. - Physical Exam Vital Signs Temp Pulse Resp BP 97.5 F L 65 16 116/68 07/27/18 13:52 07/27/18 13:52 07/27/18 13:52 07/27/18 13:52 General: Alert, Oriented x3, Cooperative, No apparent distress HEENT: Atraumatic Lungs: Clear to auscultation Cardiovascular: Regular rate Abdomen: Soft, Non Tender Extremities: No clubbing, No cyanosis, Diminished Peripheral Pulses, Edema - Generalized bilateral lower extremity edema Skin: Ulcer/ Wound - Ulceration to left lower extremity with adherent slough and surrounding periwound bed is inflamed and tender to touch, slight surrounding wound is warm and red consistent with that of cellulitis, margins were outlined, no streaking present Wound Measurements and Assessment WC - Nurse 1 - General Ulcer Measurement Start: 07/16/18 14:53 Freq: Status: Active Protocol: Activity Type Activity Date Activity User E-Sign Co-Sign Detail Recorded Client Recorded Date Recorded By Document 07/27/18 13:52 DOLORES [id number] 07/27/18 14:06 DOLORES 07/27/18 13:52 Wound Center Nurse 1 [Ulcer Assessment] #4 LEFT LATERAL LOWER LEG -Combined with other wound No -Current Size (cm) - Length 3.4 -Current Size (cm) - Width 1.5 -Current Size (cm) - Depth 0.2 -Total Square Cm 5.10 -Photo Taken No -Epithelialization Small 1-33% -Tunneling No -Undermining/Tunneling No -Circular Undermining No -Exudate Amt Small -Exudate Type Serosanguineous -Wound Margin Flat & Intact -Granulation Amt Small (1-33%) -Granulation Quality [place] Red -Slough/Fibrin Yes -Necrosis Amt Large (67-100%) -Necrotic Tissue Type Adherent Slough -Structure Exposed N/A -Texture (Kajal-wound Skin Appearance) Assessed Localized Edema -Moisture (Kajal-wound Skin Appearance Assessed ) Dry/Scaly -Color (Kajal-wound Skin Appearance) Assessed Hemosiderin Staining -Temperature (Kajal-wound Skin No Abnormality Appearance) (Pt Warm) -Ulcer Cleansing Wound Cleanser -Foul Odor after Cleansing No [Edema Assessment] -Lower Limb Edema Present Yes -Left Calf (cm) 29.3 -Left Ankle (cm) 21.6 Neurological: Neuro grossly intact Psych/Mental Status: Normal Affect, Appropriate, Alert and oriented to time, place, person, mood and affect Debridement Note Post-Debridement Measurements/Treatment WC - Nurse 2 - General Ulcer CM Notes Start: 07/16/18 14:53 Freq: Status: Active Protocol: Activity Type Activity Date Activity User E-Sign Co-Sign Detail Recorded Client Recorded Date Recorded By Document 07/16/18 16:03 DV [id number] 07/16/18 16:09 DV Document 07/23/18 15:27 DV [id number] 07/23/18 15:30 DV 07/16/18 07/23/18 16:03 15:27 Wound Center Nurse 2 #4 LEFT LATERAL LOWER LEG -Time 16:04 15:27 -Correct Patient Yes Yes -Correct Side, Site, Position Yes Yes -Correct Procedure Yes Yes -Procedure Performed Yes Yes -Type of Procedure Debridement Debridement -Clinical Debridement Subcutaneous Subcutaneous -Post Debridement Size (cm) - Length 2.7 3.8 -Post Debridement Size (cm) - Width 1.6 2.0 -Post Debridement Size (cm) - Depth 0.1 0.2 -Total Square Cm 4.32 7.60 -Wound/Ulcer Outcome Not Healed Not Healed -Ulcer Cleansing Rinsed/ Rinsed/ Irrigated with Irrigated with Saline Saline -Foul Odor after Cleansing No No -Bioengineered Tissue No No -Bleeding Controlled with Pressure Pressure -Offloading No No -Treatment Response Procedure Procedure Tolerated Well Tolerated Well Pain Scale: 0-10 Numeric Is Patient Pain Free? Yes Yes Wound debrided: Nonhealing venous leg ulcer to left lower extremity Laterality: Left Type of Debridement: Excisional debridement Anesthesia Used: 5% Lidocaine Gel Depth: in the subcutaneous layer Percentage of wound debrided: 100 Instrument Used: 7mm curette Tissue Removed: Slough and devitalized tissue Severity: Fat Layer Exposed Amount of bleeding with debridement: Mild Bleeding Controlled with: Pressure Patient tolerated procedure well Assessment/Plan Active Problems Bilateral lower extremity edema (Acute) Cellulitis of left lower extremity (Acute) Staphylococcus aureus infection (Acute) Nonhealing ulcer of left lower extremity with fat layer exposed (Acute) Venous leg ulcer PVD (peripheral vascular disease) (Chronic) Hypertension (Chronic) Assessment: Nonhealing venous leg ulcer to left lower extremity with coexisting cellulitis Plan: The patient was seen and examined at the wound center today and was updated on the plan of care. A subcutaneous debridement was performed today. The patient tolerated the procedure well. The patients wound care will consist of: Applying Aquacel silver to the site and light 3M wrap for compression as she is done well with this in the past and return Friday for wound check. Wound cultures were collected prior and showed staph aureus and anaerobic cocci and patient was started on doxycycline and Flagyl. Vascular studies reviewed from July 2017 and demonstrated chronic venous insufficiency and right HARRISON 1.15 and left HARRISON 1.32.. Patient educated on the importance of diet on wound healing and instructed to increase protein and vitamin C intake. Patient verbalized understanding. Patient will follow up at wound healing center in one week or sooner if needed. Patient educated on signs and symptoms of infection and cellulitis that require urgent medical attention. This note was generated with [employer] dictation software. It may contain incorrect words, spelling, and punctua tion that were not noted in checking the note before signing. Code Visit 111xxx-113xx: 37130 Kaley subq tissue 20 sq cm/<
[2018-07-30 14:39] VITALS: BP 122/77; PULSE 74; RESP 18; TEMP 36.6; BMI 21.4
--- NOTE | 2018-07-30 16:58 | PCM.WC.PN ---
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 Status: Acute Current Visit: Yes Code(s): L97.922 - Non-pressure chronic ulcer of unspecified part of left lower leg with fat layer exposed Comment: Venous leg ulcer (2) Bilateral lower extremity edema Status: Acute Current Visit: Yes Code(s): R60.0 - Localized edema (3) Hypertension Status: Chronic Current Visit: Yes Code(s): I10 - Essential (primary) hypertension (4) PVD (peripheral vascular disease) Status: Chronic Current Visit: Yes Code(s): I73.9 - Peripheral vascular disease, unspecified (5) Cellulitis of left lower extremity Status: Acute Current Visit: Yes Code(s): L03.116 - Cellulitis of left lower limb (6) Staphylococcus aureus infection Status: Acute Current Visit: Yes Code(s): A49.01 - Methicillin susceptible Staphylococcus aureus infection, unspecified site Type of Wound Date of Service: 07/30/18 Chief Complaint: Nonhealing ulcer left lower extremity. History of Wound: This is a 78-year-old white female known to me previously who was recently discharged from the [facility] in October 2017 who presents to the wound center today for nonhealing ulcer on her left lower extrtemity x 2 weeks. She has a past medical history which is significant for hypertension, venous insufficiency, vertigo and peripheral vascular disease. The patient has not been utilizing any intervention for wound care and has not been utilizing any compression as well. She does state that the surrounding area around the ulcer is slightly red and warm to touch. She denies any systemic signs of infection at this time and denies any increase in pain around the skin tears or any purulent drainage. She otherwise denies any fever, chills, nausea, vomiting, shortness of breath, chest pain or pressure, syncope or presyncopal episodes. Progress of Wound: Site has improved and signs of cellulitis has improved as well, patient tolerating the doxycycline, wound bed is moist and pink. - Physical Exam Vital Signs Temp Pulse Resp BP 98 F 74 18 122/77 H 07/30/18 14:39 07/30/18 14:39 07/30/18 14:39 07/30/18 14:39 General: Alert, Oriented x3, Cooperative, No apparent distress HEENT: Atraumatic, PERRLA Oral: Moist Mucosa Cardiovascular: Regular rate Abdomen: Soft, Non Tender Extremities: No clubbing, No cyanosis, Diminished Peripheral Pulses, Edema - Generalized bilateral lower extremity edema Skin: Ulcer/ Wound - Ulceration to left lower extremity with adherent slough to the wound bed, area of cellulitis redness and warmth is improving, no streaking or purulent discharge or malodor at this time Wound Measurements and Assessment WC - Nurse 1 - General Ulcer Measurement Start: 07/16/18 14:53 Freq: Status: Active Protocol: Activity Type Activity Date Activity User E-Sign Co-Sign Detail Recorded Client Recorded Date Recorded By Document 07/30/18 14:39 RB [id number] 07/30/18 14:52 RB 07/30/18 14:39 Wound Center Nurse 1 [Ulcer Assessment] #4 LEFT LATERAL LOWER LEG -Combined with other wound No -Current Size (cm) - Length 3.1 -Current Size (cm) - Width 1.4 -Current Size (cm) - Depth 0.3 -Total Square Cm 4.34 -Photo Taken No -Tunneling No -Undermining/Tunneling No -Circular Undermining No -Exudate Amt Medium -Exudate Type Serosanguineous -Wound Margin Thickened & Rolled Under -Granulation Amt Medium (34-66%) -Granulation Quality [place] -Slough/Fibrin Yes -Necrosis Amt Medium (34-66%) -Necrotic Tissue Type Adherent Slough -Structure Exposed N/A -Texture (Kajal-wound Skin Appearance) Assessed -Moisture (Kajal-wound Skin Appearance Dry/Scaly ) -Color (Kajal-wound Skin Appearance) Hemosiderin Staining -Temperature (Kajal-wound Skin No Abnormality Appearance) (Pt Warm) -Tenderness on Palpation (Kajal-wound No Skin Appearance) -Ulcer Cleansing Rinsed/ Irrigated with Saline -Foul Odor after Cleansing No -Anesthetic Used 5% Lidocaine Gel [Edema Assessment] -Lower Limb Edema Present Yes -Left Calf (cm) 29.5 -Left Ankle (cm) 21.2 WC - Nurse 2 - General Ulcer CM Notes Start: 07/16/18 14:53 Freq: Status: Active Protocol: Activity Type Activity Date Activity User E-Sign Co-Sign Detail Recorded Client Recorded Date Recorded By Document 07/30/18 15:58 AN [id number] 07/30/18 16:05 AN 07/30/18 15:58 Wound Center Nurse 2 [Procedure/Treatment] #4 LEFT LATERAL LOWER LEG -Correct Patient Yes -Correct Side, Site, Position Yes -Correct Procedure Yes -Procedure Performed Yes -Type of Procedure Debridement -Clinical Debridement Subcutaneous -Post Debridement Size (cm) - Length 3.1 -Post Debridement Size (cm) - Width 1.6 -Post Debridement Size (cm) - Depth 0.2 -Total Square Cm 4.96 -Wound/Ulcer Outcome Not Healed -Ulcer Cleansing Rinsed/ Irrigated with Saline -Foul Odor after Cleansing No -Bleeding Controlled with NA -Offloading No -Treatment Response Procedure Tolerated Well [See Physician Procedure note for Specifics] Pain Scale: 0-10 Numeric [Pain] -Is Patient Pain Free? Yes Neurological: Neuro grossly intact Psych/Mental Status: Normal Affect, Appropriate, Alert and oriented to time, place, person, mood and affect Debridement Note Post-Debridement Measurements/Treatment WC - Nurse 2 - General Ulcer CM Notes Start: 07/16/18 14:53 Freq: Status: Active Protocol: Activity Type Activity Date Activity User E-Sign Co-Sign Detail Recorded Client Recorded Date Recorded By Document 07/16/18 16:03 DV [id number] 07/16/18 16:09 DV Document 07/23/18 15:27 DV [id number] 07/23/18 15:30 DV Document 07/30/18 15:58 AN [id number] 07/30/18 16:05 AN 07/16/18 07/23/18 07/30/18 16:03 15:27 15:58 Wound Center Nurse 2 #4 LEFT LATERAL LOWER LEG -Time 16:04 15:27 -Correct Patient Yes Yes Yes -Correct Side, Site, Position Yes Yes Yes -Correct Procedure Yes Yes Yes -Procedure Performed Yes Yes Yes -Type of Procedure Debridement Debridement Debridement -Clinical Debridement Subcutaneous Subcutaneous Subcutaneous -Post Debridement Size (cm) - Length 2.7 3.8 3.1 -Post Debridement Size (cm) - Width 1.6 2.0 1.6 -Post Debridement Size (cm) - Depth 0.1 0.2 0.2 -Total Square Cm 4.32 7.60 4.96 -Wound/Ulcer Outcome Not Healed Not Healed Not Healed -Ulcer Cleansing Rinsed/ Rinsed/ Rinsed/ Irrigated with Irrigated with Irrigated with Saline Saline Saline -Foul Odor after Cleansing No No No -Bioengineered Tissue No No -Bleeding Controlled with Pressure Pressure NA -Offloading No No No -Treatment Response Procedure Procedure Procedure Tolerated Well Tolerated Well Tolerated Well Pain Scale: 0-10 Numeric Is Patient Pain Free? Yes Yes Yes Wound debrided: Left lateral lower extremity venous ulcer Laterality: Left Type of Debridement: Excisional debridement Anesthesia Used: 5% Lidocaine Gel Depth: in the subcutaneous layer Percentage of wound debrided: 100 Instrument Used: 5mm curette Tissue Removed: Slough and devitalized tissue Severity: Fat Layer Exposed Amount of bleeding with debridement: Mild Bleeding Controlled with: Pressure Patient tolerated procedure well Assessment/Plan Active Problems Bilateral lower extremity edema (Acute) Cellulitis of left lower extremity (Acute) Staphylococcus aureus infection (Acute) Nonhealing ulcer of left lower extremity with fat layer exposed (Acute) Venous leg ulcer PVD (peripheral vascular disease) (Chronic) Hypertension (Chronic) Assessment: Nonhealing venous leg ulcer to left lower extremity with coexisting cellulitis Plan: The patient was seen and examined at the wound center today and was updated on the plan of care. A subcutaneous debridement was performed today. The patient tolerated the procedure well. The patients wound care will consist of: Applying Germaine to the site and light 3M wrap for compression as she is done well with this in the past and return Friday for wound check. Wound cultures were collected prior and showed staph aureus and anaerobic cocci and patient was started on doxycycline and Flagyl which she has tolerated well. Vascular studies reviewed from July 2017 and demonstrated chronic venous insufficiency and right HARRISON 1.15 and left HARRISON 1.32.. Patient educated on the importance of diet on wound healing and instructed to increase protein and vitamin C intake. Patient verbalized understanding. Patient will follow up at wound healing center in one week or sooner if needed. Patient educated on signs and symptoms of infection and cellulitis that require urgent medical attention. This note was generated with [employer] software. It may contain incorrect words, spelling, and punctuation that were not noted in checking the note before signing. Code Visit 111xxx-113xx: 73705 Kaley subq tissue 20 sq cm/<
--- NOTE | 2018-07-31 17:02 | PN.PCM_ITS ---
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 Status: Acute Current Visit: Yes Code(s): L97.922 - Non-pressure chronic ulcer of unspecified part of left lower leg with fat layer exposed Comment: Venous leg ulcer (2) Bilateral lower extremity edema Status: Acute Current Visit: Yes Code(s): R60.0 - Localized edema (3) Hypertension Status: Chronic Current Visit: Yes Code(s): I10 - Essential (primary) hypertension (4) PVD (peripheral vascular disease) Status: Chronic Current Visit: Yes Code(s): I73.9 - Peripheral vascular disease, unspecified (5) Cellulitis of left lower extremity Status: Acute Current Visit: Yes Code(s): L03.116 - Cellulitis of left lower limb (6) Staphylococcus aureus infection Status: Acute Current Visit: Yes Code(s): A49.01 - Methicillin susceptible Staphylococcus aureus infection, unspecified site Type of Wound Date of Service: 07/30/18 Chief Complaint: Nonhealing ulcer left lower extremity. History of Wound: This is a 78-year-old white female known to me previously who was recently discharged from the [facility] in October 2017 who presents to the wound center today for nonhealing ulcer on her left lower extrtemity x 2 weeks. She has a past medical history which is significant for hypertension, venous insufficiency, vertigo and peripheral vascular disease. The patient has not been utilizing any intervention for wound care and has not been utilizing any compression as well. She does state that the surrounding area around the ulcer is slightly red and warm to touch. She denies any systemic signs of infection at this time and denies any increase in pain around the skin tears or any purulent drainage. She otherwise denies any fever, chills, nausea, vomiting, shortness of breath, chest pain or pressure, syncope or presyncopal episodes. Progress of Wound: Site has improved and signs of cellulitis has improved as well, patient tolerating the doxycycline, wound bed is moist and pink. - Physical Exam Vital Signs Temp Pulse Resp BP 98 F 74 18 122/77 H 07/30/18 14:39 07/30/18 14:39 07/30/18 14:39 07/30/18 14:39 General: Alert, Oriented x3, Cooperative, No apparent distress HEENT: Atraumatic, PERRLA Oral: Moist Mucosa Cardiovascular: Regular rate Abdomen: Soft, Non Tender Extremities: No clubbing, No cyanosis, Diminished Peripheral Pulses, Edema - Generalized bilateral lower extremity edema Skin: Ulcer/ Wound - Ulceration to left lower extremity with adherent slough to the wound bed, area of cellulitis redness and warmth is improving, no streaking or purulent discharge or malodor at this time Wound Measurements and Assessment WC - Nurse 1 - General Ulcer Measurement Start: 07/16/18 14:53 Freq: Status: Active Protocol: Activity Type Activity Date Activity User E-Sign Co-Sign Detail Recorded Client Recorded Date Recorded By Document 07/30/18 14:39 RB [id number] 07/30/18 14:52 RB 07/30/18 14:39 Wound Center Nurse 1 [Ulcer Assessment] #4 LEFT LATERAL LOWER LEG -Combined with other wound No -Current Size (cm) - Length 3.1 -Current Size (cm) - Width 1.4 -Current Size (cm) - Depth 0.3 -Total Square Cm 4.34 -Photo Taken No -Tunneling No -Undermining/Tunneling No -Circular Undermining No -Exudate Amt Medium -Exudate Type Serosanguineous -Wound Margin Thickened & Rolled Under -Granulation Amt Medium (34-66%) -Granulation Quality Mounds -Slough/Fibrin Yes -Necrosis Amt Medium (34-66%) -Necrotic Tissue Type Adherent Slough -Structure Exposed N/A -Texture (Kajal-wound Skin Appearance) Assessed -Moisture (Kajal-wound Skin Appearance Dry/Scaly ) -Color (Kajal-wound Skin Appearance) Hemosiderin Staining -Temperature (Kajal-wound Skin No Abnormality Appearance) (Pt Warm) -Tenderness on Palpation (Kajal-wound No Skin Appearance) -Ulcer Cleansing Rinsed/ Irrigated with Saline -Foul Odor after Cleansing No -Anesthetic Used 5% Lidocaine Gel [Edema Assessment] -Lower Limb Edema Present Yes -Left Calf (cm) 29.5 -Left Ankle (cm) 21.2 WC - Nurse 2 - General Ulcer CM Notes Start: 07/16/18 14:53 Freq: Status: Active Protocol: Activity Type Activity Date Activity User E-Sign Co-Sign Detail Recorded Client Recorded Date Recorded By Document 07/30/18 15:58 AN [id number] 07/30/18 16:05 AN 07/30/18 15:58 Wound Center Nurse 2 [Procedure/Treatment] #4 LEFT LATERAL LOWER LEG -Correct Patient Yes -Correct Side, Site, Position Yes -Correct Procedure Yes -Procedure Performed Yes -Type of Procedure Debridement -Clinical Debridement Subcutaneous -Post Debridement Size (cm) - Length 3.1 -Post Debridement Size (cm) - Width 1.6 -Post Debridement Size (cm) - Depth 0.2 -Total Square Cm 4.96 -Wound/Ulcer Outcome Not Healed -Ulcer Cleansing Rinsed/ Irrigated with Saline -Foul Odor after Cleansing No -Bleeding Controlled with NA -Offloading No -Treatment Response Procedure Tolerated Well [See Physician Procedure note for Specifics] Pain Scale: 0-10 Numeric [Pain] -Is Patient Pain Free? Yes Neurological: Neuro grossly intact Psych/Mental Status: Normal Affect, Appropriate, Alert and oriented to time, place, person, mood and affect Debridement Note Post-Debridement Measurements/Treatment WC - Nurse 2 - General Ulcer CM Notes Start: 07/16/18 14:53 Freq: Status: Active Protocol: Activity Type Activity Date Activity User E-Sign Co-Sign Detail Recorded Client Recorded Date Recorded By Document 07/16/18 16:03 DV [id number] 07/16/18 16:09 DV Document 07/23/18 15:27 DV [id number] 07/23/18 15:30 DV Document 07/30/18 15:58 AN [id number] 07/30/18 16:05 AN 07/16/18 07/23/18 07/30/18 16:03 15:27 15:58 Wound Center Nurse 2 #4 LEFT LATERAL LOWER LEG -Time 16:04 15:27 -Correct Patient Yes Yes Yes -Correct Side, Site, Position Yes Yes Yes -Correct Procedure Yes Yes Yes -Procedure Performed Yes Yes Yes -Type of Procedure Debridement Debridement Debridement -Clinical Debridement Subcutaneous Subcutaneous Subcutaneous -Post Debridement Size (cm) - Length 2.7 3.8 3.1 -Post Debridement Size (cm) - Width 1.6 2.0 1.6 -Post Debridement Size (cm) - Depth 0.1 0.2 0.2 -Total Square Cm 4.32 7.60 4.96 -Wound/Ulcer Outcome Not Healed Not Healed Not Healed -Ulcer Cleansing Rinsed/ Rinsed/ Rinsed/ Irrigated with Irrigated with Irrigated with Saline Saline Saline -Foul Odor after Cleansing No No No -Bioengineered Tissue No No -Bleeding Controlled with Pressure Pressure NA -Offloading No No No -Treatment Response Procedure Procedure Procedure Tolerated Well Tolerated Well Tolerated Well Pain Scale: 0-10 Numeric Is Patient Pain Free? Yes Yes Yes Wound debrided: Left lateral lower extremity venous ulcer Laterality: Left Type of Debridement: Excisional debridement Anesthesia Used: 5% Lidocaine Gel Depth: in the subcutaneous layer Percentage of wound debrided: 100 Instrument Used: 5mm curette Tissue Removed: Slough and devitalized tissue Severity: Fat Layer Exposed Amount of bleeding with debridement: Mild Bleeding Controlled with: Pressure Patient tolerated procedure well Assessment/Plan Active Problems Bilateral lower extremity edema (Acute) Cellulitis of left lower extremity (Acute) Staphylococcus aureus infection (Acute) Nonhealing ulcer of left lower extremity with fat layer exposed (Acute) Venous leg ulcer PVD (peripheral vascular disease) (Chronic) Hypertension (Chronic) Assessment: Nonhealing venous leg ulcer to left lower extremity with coexisting cellulitis Plan: The patient was seen and examined at the wound center today and was updated on the plan of care. A subcutaneous debridement was performed today. The patient tolerated the procedure well. The patients wound care will consist of: Applying Germaine to the site and light 3M wrap for compression as she is done well with this in the past and return Friday for wound check. Wound cultures were collected prior and showed staph aureus and anaerobic cocci and patient was started on doxycycline and Flagyl which she has tolerated well. Vascular studies reviewed from July 2017 and demonstrated chronic venous insufficiency and right HARRISON 1.15 and left HARRISON 1.32.. Patient educated on the importance of diet on wound healing and instructed to increase protein and vitamin C intake. Patient verbalized understanding. Patient will follow up at wound healing center in one week or sooner if needed. Patient educated on signs and symptoms of infection and cellulitis that require urgent medical attention. This note was generated with [employer] software. It may contain incorrect words, spelling, and punctuation that were not noted in checking the note before signing. Code Visit 111xxx-113xx: [id number] Kaley subq tissue 20 sq cm/<
[2018-08-06 15:33] VITALS: BP 124/67; PULSE 62; RESP 18; TEMP 36.7; BMI 21.4
--- NOTE | 2018-08-11 11:56 | PCM.WC.PN ---
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 Status: Acute Code(s): L97.922 - Non-pressure chronic ulcer of unspecified part of left lower leg with fat layer exposed Comment: Venous leg ulcer (2) Bilateral lower extremity edema Status: Acute Code(s): R60.0 - Localized edema (3) Hypertension Status: Chronic Code(s): I10 - Essential (primary) hypertension (4) PVD (peripheral vascular disease) Status: Chronic Code(s): I73.9 - Peripheral vascular disease, unspecified (5) Cellulitis of left lower extremity Status: Acute Code(s): L03.116 - Cellulitis of left lower limb (6) Staphylococcus aureus infection Status: Acute Code(s): A49.01 - Methicillin susceptible Staphylococcus aureus infection, unspecified site Type of Wound Date of Service: 08/06/18 Chief Complaint: Nonhealing ulcer left lower extremity. History of Wound: This is a 78-year-old white female known to me previously who was recently discharged from the [facility] in October 2017 who presents to the wound center today for nonhealing ulcer on her left lower extrtemity x 2 weeks. She has a past medical history which is significant for hypertension, venous insufficiency, vertigo and peripheral vascular disease. The patient has not been utilizing any intervention for wound care and has not been utilizing any compression as well. She does state that the surrounding area around the ulcer is slightly red and warm to touch. She denies any systemic signs of infection at this time and denies any increase in pain around the skin tears or any purulent drainage. She otherwise denies any fever, chills, nausea, vomiting, shortness of breath, chest pain or pressure, syncope or presyncopal episodes. Progress of Wound: Ulceration has improved and signs of cellulitis has improved as well, patient completed all of her antibiotics, wound bed is moist and pink. - Physical Exam Vital Signs Temp Pulse Resp BP 98.0 F 62 18 124/67 H 08/06/18 15:33 08/06/18 15:33 08/06/18 15:33 08/06/18 15:33 General: Alert, Oriented x3, Cooperative, No apparent distress HEENT: Atraumatic Oral: Moist Mucosa Lungs: Clear to auscultation, Normal air movement Cardiovascular: Regular rate Abdomen: Soft, Non Tender Extremities: No clubbing, No cyanosis, Diminished Peripheral Pulses, Edema - Generalized bilateral lower extremity edema Skin: Ulcer/ Wound - Ulceration to left lateral lower extremity with adherent slough, cellulitis has resolved, no redness, streaking, or purulent drainage noted Neurological: Neuro grossly intact Psych/Mental Status: Normal Affect, Appropriate, Alert and oriented to time, place, person, mood and affect Debridement Note Post-Debridement Measurements/Treatment WC - Nurse 2 - General Ulcer CM Notes Start: 07/16/18 14:53 Freq: Status: Active Protocol: Activity Type Activity Date Activity User E-Sign Co-Sign Detail Recorded Client Recorded Date Recorded By Document 07/16/18 16:03 DV [id number] 07/16/18 16:09 DV Document 07/23/18 15:27 DV [id number] 07/23/18 15:30 DV Document 07/30/18 15:58 AN [id number] 07/30/18 16:05 AN Document 08/06/18 15:59 MW [id number] 08/06/18 16:04 MW 07/16/18 07/23/18 07/30/18 16:03 15:27 15:58 Wound Center Nurse 2 #4 LEFT LATERAL LOWER LEG -Time 16:04 15:27 -Correct Patient Yes Yes Yes -Correct Side, Site, Position Yes Yes Yes -Correct Procedure Yes Yes Yes -Procedure Performed Yes Yes Yes -Type of Procedure Debridement Debridement Debridement -Clinical Debridement Subcutaneous Subcutaneous Subcutaneous -Post Debridement Size (cm) - Length 2.7 3.8 3.1 -Post Debridement Size (cm) - Width 1.6 2.0 1.6 -Post Debridement Size (cm) - Depth 0.1 0.2 0.2 -Total Square Cm 4.32 7.60 4.96 -Wound/Ulcer Outcome Not Healed Not Healed Not Healed -Ulcer Cleansing Rinsed/ Rinsed/ Rinsed/ Irrigated with Irrigated with Irrigated with Saline Saline Saline -Foul Odor after Cleansing No No No -Bioengineered Tissue No No -Bleeding Controlled with Pressure Pressure NA -Offloading No No No -Treatment Response Procedure Procedure Procedure Tolerated Well Tolerated Well Tolerated Well Pain Scale: 0-10 Numeric Is Patient Pain Free? Yes Yes Yes 08/06/18 15:59 Wound Center Nurse 2 #4 LEFT LATERAL LOWER LEG -Time 16:02 -Correct Patient Yes -Correct Side, Site, Position Yes -Correct Procedure Yes -Procedure Performed Yes -Type of Procedure Debridement -Clinical Debridement Subcutaneous -Post Debridement Size (cm) - Length 2.9 -Post Debridement Size (cm) - Width 1.9 -Post Debridement Size (cm) - Depth 0.1 -Total Square Cm 5.51 -Wound/Ulcer Outcome Not Healed -Ulcer Cleansing Rinsed/ Irrigated with Saline -Foul Odor after Cleansing No -Bioengineered Tissue No -Bleeding Controlled with Pressure -Offloading No -Treatment Response Procedure Tolerated Well Pain Scale: 0-10 Numeric Is Patient Pain Free? Yes Wound debrided: Left venous leg ulcer Laterality: Left Type of Debridement: Excisional debridement Anesthesia Used: 5% Lidocaine Gel Depth: in the subcutaneous layer Percentage of wound debrided: 100 Instrument Used: 5mm curette Tissue Removed: Slough and devitalized tissue Severity: Fat Layer Exposed Amount of bleeding with debridement: Mild Bleeding Controlled with: Pressure Patient tolerated procedure well Assessment/Plan Assessment: Nonhealing venous leg ulcer to left lower extremity with coexisting cellulitis Plan: The patient was seen and examined at the wound center today and was updated on the plan of care. Her cellulitis has resolved. A subcutaneous debridement was performed today. The patient tolerated the procedure well. The patients wound care will consist of: Applying Germaine to the site and light 3M wrap for compression as she is done well with this in the past . Wound cultures were collected prior and showed staph aureus and anaerobic cocci and patient was started on doxycycline and Flagyl which she completed. Vascular studies reviewed from July 2017 and demonstrated chronic venous insufficiency and right HARRISON 1.15 and left HARRISON 1.32.. Patient educated on the importance of diet on wound healing and instructed to increase protein and vitamin C intake. Patient verbalized understanding. Patient will follow up at wound healing center in one week or sooner if needed. Patient educated on signs and symptoms of infection and cellulitis that require urgent medical attention. This note was generated with [employer] software. It may contain incorrect words, spelling, and punctuation that were not noted in checking the note before signing. Code Visit 111xxx-113xx: [id number] Kaley subq tissue 20 sq cm/<
--- NOTE | 2018-08-11 12:00 | PN.PCM_ITS ---
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 Status: Acute Code(s): L97.922 - Non-pressure chronic ulcer of unspecified part of left lower leg with fat layer exposed Comment: Venous leg ulcer (2) Bilateral lower extremity edema Status: Acute Code(s): R60.0 - Localized edema (3) Hypertension Status: Chronic Code(s): I10 - Essential (primary) hypertension (4) PVD (peripheral vascular disease) Status: Chronic Code(s): I73.9 - Peripheral vascular disease, unspecified (5) Cellulitis of left lower extremity Status: Acute Code(s): L03.116 - Cellulitis of left lower limb (6) Staphylococcus aureus infection Status: Acute Code(s): A49.01 - Methicillin susceptible Staphylococcus aureus infection, unspecified site Type of Wound Date of Service: 08/06/18 Chief Complaint: Nonhealing ulcer left lower extremity. History of Wound: This is a 78-year-old white female known to me previously who was recently discharged from the [facility] in October 2017 who presents to the wound center today for nonhealing ulcer on her left lower extrtemity x 2 weeks. She has a past medical history which is significant for hypertension, venous insufficiency, vertigo and peripheral vascular disease. The patient has not been utilizing any intervention for wound care and has not been utilizing any compression as well. She does state that the surrounding area around the ulcer is slightly red and warm to touch. She denies any systemic signs of infection at this time and denies any increase in pain around the skin tears or any purulent drainage. She otherwise denies any fever, chills, nausea, vomiting, shortness of breath, chest pain or pressure, syncope or presyncopal episodes. Progress of Wound: Ulceration has improved and signs of cellulitis has improved as well, patient completed all of her antibiotics, wound bed is moist and pink. - Physical Exam Vital Signs Temp Pulse Resp BP 98.0 F 62 18 124/67 H 08/06/18 15:33 08/06/18 15:33 08/06/18 15:33 08/06/18 15:33 General: Alert, Oriented x3, Cooperative, No apparent distress HEENT: Atraumatic Oral: Moist Mucosa Lungs: Clear to auscultation, Normal air movement Cardiovascular: Regular rate Abdomen: Soft, Non Tender Extremities: No clubbing, No cyanosis, Diminished Peripheral Pulses, Edema - Generalized bilateral lower extremity edema Skin: Ulcer/ Wound - Ulceration to left lateral lower extremity with adherent slough, cellulitis has resolved, no redness, streaking, or purulent drainage noted Neurological: Neuro grossly intact Psych/Mental Status: Normal Affect, Appropriate, Alert and oriented to time, place, person, mood and affect Debridement Note Post-Debridement Measurements/Treatment WC - Nurse 2 - General Ulcer CM Notes Start: 07/16/18 14:53 Freq: Status: Active Protocol: Activity Type Activity Date Activity User E-Sign Co-Sign Detail Recorded Client Recorded Date Recorded By Document 07/16/18 16:03 DV [id number] 07/16/18 16:09 DV Document 07/23/18 15:27 DV [id number] 07/23/18 15:30 DV Document 07/30/18 15:58 AN [id number] 07/30/18 16:05 AN Document 08/06/18 15:59 MW [id number] 08/06/18 16:04 MW 07/16/18 07/23/18 07/30/18 16:03 15:27 15:58 Wound Center Nurse 2 #4 LEFT LATERAL LOWER LEG -Time 16:04 15:27 -Correct Patient Yes Yes Yes -Correct Side, Site, Position Yes Yes Yes -Correct Procedure Yes Yes Yes -Procedure Performed Yes Yes Yes -Type of Procedure Debridement Debridement Debridement -Clinical Debridement Subcutaneous Subcutaneous Subcutaneous -Post Debridement Size (cm) - Length 2.7 3.8 3.1 -Post Debridement Size (cm) - Width 1.6 2.0 1.6 -Post Debridement Size (cm) - Depth 0.1 0.2 0.2 -Total Square Cm 4.32 7.60 4.96 -Wound/Ulcer Outcome Not Healed Not Healed Not Healed -Ulcer Cleansing Rinsed/ Rinsed/ Rinsed/ Irrigated with Irrigated with Irrigated with Saline Saline Saline -Foul Odor after Cleansing No No No -Bioengineered Tissue No No -Bleeding Controlled with Pressure Pressure NA -Offloading No No No -Treatment Response Procedure Procedure Procedure Tolerated Well Tolerated Well Tolerated Well Pain Scale: 0-10 Numeric Is Patient Pain Free? Yes Yes Yes 08/06/18 15:59 Wound Center Nurse 2 #4 LEFT LATERAL LOWER LEG -Time 16:02 -Correct Patient Yes -Correct Side, Site, Position Yes -Correct Procedure Yes -Procedure Performed Yes -Type of Procedure Debridement -Clinical Debridement Subcutaneous -Post Debridement Size (cm) - Length 2.9 -Post Debridement Size (cm) - Width 1.9 -Post Debridement Size (cm) - Depth 0.1 -Total Square Cm 5.51 -Wound/Ulcer Outcome Not Healed -Ulcer Cleansing Rinsed/ Irrigated with Saline -Foul Odor after Cleansing No -Bioengineered Tissue No -Bleeding Controlled with Pressure -Offloading No -Treatment Response Procedure Tolerated Well Pain Scale: 0-10 Numeric Is Patient Pain Free? Yes Wound debrided: Left venous leg ulcer Laterality: Left Type of Debridement: Excisional debridement Anesthesia Used: 5% Lidocaine Gel Depth: in the subcutaneous layer Percentage of wound debrided: 100 Instrument Used: 5mm curette Tissue Removed: Slough and devitalized tissue Severity: Fat Layer Exposed Amount of bleeding with debridement: Mild Bleeding Controlled with: Pressure Patient tolerated procedure well Assessment/Plan Assessment: Nonhealing venous leg ulcer to left lower extremity with coexisting cellulitis Plan: The patient was seen and examined at the wound center today and was updated on the plan of care. Her cellulitis has resolved. A subcutaneous d ebridement was performed today. The patient tolerated the procedure well. The patients wound care will consist of: Applying Germaine to the site and light 3M wrap for compression as she is done well with this in the past . Wound cultures were collected prior and showed staph aureus and anaerobic cocci and patient was started on doxycycline and Flagyl which she completed. Vascular studies reviewed from July 2017 and demonstrated chronic venous insufficiency and right HARRISON 1.15 and left HARRISON 1.32.. Patient educated on the importance of diet on wound healing and instructed to increase protein and vitamin C intake. Patient verbalized understanding. Patient will follow up at wound healing center in one week or sooner if needed. Patient educated on signs and symptoms of infection and cellulitis that require urgent medical attention. This note was generated with [employer] software. It may contain incorrect words, spelling, and punctuation that were not noted in checking the note before signing. Code Visit 111xxx-113xx: 60049 Kaley subq tissue 20 sq cm/<
== END 2018-08-06 23:59 ==
LOC: WC 15:15
PROVIDERS: Visit Provider Nurse Practitioner Family
DX: I73.9 Peripheral vascular disease, unspecified (principal); L97.822 Non-pressure chronic ulcer of other part of left lower leg with fat layer exposed; R60.0 Localized edema; I10 Essential (primary) hypertension; L03.116 Cellulitis of left lower limb; B95.61 Methicillin susceptible Staphylococcus aureus infection as the cause of diseases classified elsewhere
CPT/HCPCS: 11042; 29581; 87070; 87075; 87077; 87186; 87205; 87640; 99213; G0463

== ENCOUNTER 2018-09-03 14:00 | Outpatient (RCR) | payer MEDICARE, SELFPAY ==
[2018-08-07 01:38] VITALS: BP 124/67; PULSE 62; RESP 18; TEMP 36.7
[2018-08-13 15:03] VITALS: BP 136/77; PULSE 63; RESP 16; TEMP 36.6; BMI 21.4
--- NOTE | 2018-08-13 19:44 | PCM.WC.PN ---
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 History of Wound: This is a 78-year-old white female known to me previously who was recently discharged from the [facility] in October 2017 who presents to the wound center today for nonhealing ulcer on her left lower extrtemity x 2 weeks. She has a past medical history which is significant for hypertension, venous insufficiency, vertigo and peripheral vascular disease. The patient has not been utilizing any intervention for wound care and has not been utilizing any compression as well. She does state that the surrounding area around the ulcer is slightly red and warm to touch. She denies any systemic signs of infection at this time and denies any increase in pain around the skin tears or any purulent drainage. She otherwise denies any fever, chills, nausea, vomiting, shortness of breath, chest pain or pressure, syncope or presyncopal episodes. Progress of Wound: Site has improved and signs of cellulitis has improved as well, patient completed the doxycycline, wound bed is moist and pink. - Physical Exam Vital Signs Temp Pulse Resp BP 97.8 F 63 16 136/77 H 08/13/18 15:03 08/13/18 15:03 08/13/18 15:03 08/13/18 15:03 General: Alert, Oriented x3, Cooperative, No apparent distress HEENT: Atraumatic Oral: Moist Mucosa Neck: Supple Lungs: Clear to auscultation, Normal air movement Cardiovascular: Regular rate Abdomen: Soft, Non Tender Extremities: No clubbing, No cyanosis, Diminished Peripheral Pulses, Edema - Generalized bilateral lower extremity edema Skin: Ulcer/ Wound - Ulceration to left lateral lower extremity with adherent slough to the wound bed, surrounding area of cellulitis has resolved, no redness, streaking, or pain on exam. Neurological: Neuro grossly intact Psych/Mental Status: Normal Affect, Appropriate, Alert and oriented to time, place, person, mood and affect Debridement Note Post-Debridement Measurements/Treatment WC - Nurse 2 - General Ulcer CM Notes Start: 08/13/18 15:03 Freq: Status: Active Protocol: Activity Type Activity Date Activity User E-Sign Co-Sign Detail Recorded Client Recorded Date Recorded By Document 08/13/18 15:18 AN [id number] 08/13/18 15:30 AN 08/13/18 15:18 Wound Center Nurse 2 #4 LEFT LATERAL LOWER LEG -Time 15:22 -Correct Patient Yes -Correct Side, Site, Position Yes -Correct Procedure Yes -Procedure Performed Yes -Type of Procedure Debridement -Clinical Debridement Subcutaneous -Post Debridement Size (cm) - Length 2.5 -Post Debridement Size (cm) - Width 1.3 -Post Debridement Size (cm) - Depth 0.1 -Total Square Cm 3.25 -Wound/Ulcer Outcome Not Healed -Ulcer Cleansing Rinsed/ Irrigated with Saline -Foul Odor after Cleansing No -Bioengineered Tissue Yes -Type of bioengineered Tissue [id number] -Expiration Date 08/28/20 -Product Lot Number [id number] -Percent Used 100 -Saline Lot Number [id number] -Topical Lidocaine (%) 4 -Bleeding Controlled with Pressure -Offloading No -Treatment Response Procedure Tolerated Well Pain Scale: 0-10 Numeric Is Patient Pain Free? Yes Wound debrided: Left anterior lower extremity ulcer Laterality: Left Type of Debridement: Excisional debridement Anesthesia Used: 5% Lidocaine Gel Depth: in the subcutaneous layer Percentage of wound debrided: 100 Instrument Used: 5mm curette Tissue Removed: Slough and devitalized tissue Severity: Fat Layer Exposed Amount of bleeding with debridement: Mild Bleeding Controlled with: Pressure Patient tolerated procedure well Assessment/Plan Assessment: Nonhealing venous leg ulcer to left lower extremity with coexisting cellulitis Plan: The patient was seen and examined at the wound center today and was updated on the plan of care. A subcutaneous debridement was performed today. The patient tolerated the procedure well. The patients wound care will consist of:. purApply a.m. #1 was applied after subcutaneous debridement, it was then covered with the wound veil and a thin layer of hydrogel, and secured with Steri-Strips, 100% of the product was used with 0% waste. Patient tolerated the procedure well. And light 3M wrap for compression as she is done well with this in the past. Wound cultures were collected prior and showed staph aureus and anaerobic cocci and patient was started on doxycycline and Flagyl which she has tolerated well. Vascular studies reviewed from July 2017 and demonstrated chronic venous insufficiency and right HARRISON 1.15 and left HARRISON 1.32.. Patient educated on the importance of diet on wound healing and instructed to increase protein and vitamin C intake. Patient verbalized understanding. Patient will follow up at wound healing center in one week or sooner if needed. Patient educated on signs and symptoms of infection and cellulitis that require urgent medical attention. This note was generated with [employer] dictation software. It may contain incorrect words, spelling, and punctuation that were not noted in checking the note before signing. Code Visit 150xxx-152xx: 39304 Skin sub graft trnk/arm/leg
--- NOTE | 2018-08-18 11:49 | PN.PCM_ITS ---
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 History of Wound: This is a 78-year-old white female known to me previously who was recently discharged from the [facility] in October 2017 who presents to the wound center today for nonhealing ulcer on her left lower extrtemity x 2 weeks. She has a past medical history which is significant for hypertension, venous insufficiency, vertigo and peripheral vascular disease. The patient has not been utilizing any intervention for wound care and has not been utilizing any compression as well. She does state that the surrounding area around the ulcer is slightly red and warm to touch. She denies any systemic signs of infection at this time and denies any increase in pain around the skin tears or any purulent drainage. She otherwise denies any fever, chills, nausea, vomiting, shortness of breath, chest pain or pressure, syncope or presyncopal episodes. Progress of Wound: Site has improved and signs of cellulitis has improved as well, patient completed the doxycycline, wound bed is moist and pink. - Physical Exam Vital Signs Temp Pulse Resp BP 97.8 F 63 16 136/77 H 08/13/18 15:03 08/13/18 15:03 08/13/18 15:03 08/13/18 15:03 General: Alert, Oriented x3, Cooperative, No apparent distress HEENT: Atraumatic Oral: Moist Mucosa Neck: Supple Lungs: Clear to auscultation, Normal air movement Cardiovascular: Regular rate Abdomen: Soft, Non Tender Extremities: No clubbing, No cyanosis, Diminished Peripheral Pulses, Edema - Generalized bilateral lower extremity edema Skin: Ulcer/ Wound - Ulceration to left lateral lower extremity with adherent slough to the wound bed, surrounding area of cellulitis has resolved, no redness, streaking, or pain on exam. Neurological: Neuro grossly intact Psych/Mental Status: Normal Affect, Appropriate, Alert and oriented to time, place, person, mood and affect Debridement Note Post-Debridement Measurements/Treatment WC - Nurse 2 - General Ulcer CM Notes Start: 08/13/18 15:03 Freq: Status: Active Protocol: Activity Type Activity Date Activity User E-Sign Co-Sign Detail Recorded Client Recorded Date Recorded By Document 08/13/18 15:18 AN [id number] 08/13/18 15:30 AN 08/13/18 15:18 Wound Center Nurse 2 #4 LEFT LATERAL LOWER LEG -Time 15:22 -Correct Patient Yes -Correct Side, Site, Position Yes -Correct Procedure Yes -Procedure Performed Yes -Type of Procedure Debridement -Clinical Debridement Subcutaneous -Post Debridement Size (cm) - Length 2.5 -Post Debridement Size (cm) - Width 1.3 -Post Debridement Size (cm) - Depth 0.1 -Total Square Cm 3.25 -Wound/Ulcer Outcome Not Healed -Ulcer Cleansing Rinsed/ Irrigated with Saline -Foul Odor after Cleansing No -Bioengineered Tissue Yes -Type of bioengineered Tissue [id number] -Expiration Date 08/28/20 -Product Lot Number [id number] -Percent Used 100 -Saline Lot Number [id number] -Topical Lidocaine (%) 4 -Bleeding Controlled with Pressure -Offloading No -Treatment Response Procedure Tolerated Well Pain Scale: 0-10 Numeric Is Patient Pain Free? Yes Wound debrided: Left anterior lower extremity ulcer Laterality: Left Type of Debridement: Excisional debridement Anesthesia Used: 5% Lidocaine Gel Depth: in the subcutaneous layer Percentage of wound debrided: 100 Instrument Used: 5mm curette Tissue Removed: Slough and devitalized tissue Severity: Fat Layer Exposed Amount of bleeding with debridement: Mild Bleeding Controlled with: Pressure Patient tolerated procedure well Assessment/Plan Assessment: Nonhealing venous leg ulcer to left lower extremity with coexisting cellulitis Plan: The patient was seen and examined at the wound center today and was updated on the plan of care. A subcutaneous debridement was performed today. The patient tolerated the procedure well. The patients wound care will consist of:. purApply a.m. #1 was applied after subcutaneous debridement, it was then covered with the wound veil and a thin layer of hydrogel, and secured with Steri-Strips, 100% of the product was used with 0% waste. Patient tolerated the procedure well. And light 3M wrap for compression as she is done well with this in the past. Wound cultures were collected prior and showed staph aureus and anaerobic cocci and patient was started on doxycycline and Flagyl which she has tolerated well. Vascular studies reviewed from July 2017 and demonstrated chronic venous insufficiency and right HARRISON 1.15 and left HARRISON 1.32.. Patient educated on the importance of diet on wound healing and instructed to increase protein and vitamin C intake. Patient verbalized understanding. Patient will follow up at wound healing center in one week or sooner if needed. Patient educated on signs and symptoms of infection and cellulitis that require urgent medical attention. This note was generated with [employer] dictation software. It may contain incorrect words, spelling, and punctuation that were not noted in checking the note before signing. Code Visit 150xxx-152xx: 53812 Skin sub graft trnk/arm/leg
[2018-08-20 14:26] VITALS: BP 142/77; PULSE 66; RESP 18; TEMP 36.9; BMI 21.4
--- NOTE | 2018-08-20 16:35 | PCM.WC.PN ---
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 Status: Acute Current Visit: Yes Code(s): L97.922 - Non-pressure chronic ulcer of unspecified part of left lower leg with fat layer exposed Comment: Venous leg ulcer (2) Bilateral lower extremity edema Status: Acute Current Visit: Yes Code(s): R60.0 - Localized edema (3) Cellulitis of left lower extremity Status: Acute Current Visit: Yes Code(s): L03.116 - Cellulitis of left lower limb (4) Hypertension Status: Chronic Current Visit: No Code(s): I10 - Essential (primary) hypertension (5) PVD (peripheral vascular disease) Status: Chronic Current Visit: Yes Code(s): I73.9 - Peripheral vascular disease, unspecified Type of Wound Date of Service: 08/20/18 Chief Complaint: Nonhealing ulcer left lower extremity. History of Wound: This is a 78-year-old white female known to me previously who was recently discharged from the [facility] in October 2017 who presents to the wound center today for nonhealing ulcer on her left lower extrtemity x 2 weeks. She has a past medical history which is significant for hypertension, venous insufficiency, vertigo and peripheral vascular disease. The patient has not been utilizing any intervention for wound care and has not been utilizing any compression as well. She does state that the surrounding area around the ulcer is slightly red and warm to touch. She denies any systemic signs of infection at this time and denies any increase in pain around the skin tears or any purulent drainage. She otherwise denies any fever, chills, nausea, vomiting, shortness of breath, chest pain or pressure, syncope or presyncopal episodes. Progress of Wound: Site has improved and wound bed is moist and pink and signs of cellulitis has resolved - Physical Exam Vital Signs Temp Pulse Resp BP 98.4 F 66 18 142/77 H 08/20/18 14:26 08/20/18 14:26 08/20/18 14:26 08/20/18 14:26 General: Alert, Oriented x3, Cooperative, No apparent distress HEENT: Atraumatic Lungs: Clear to auscultation Cardiovascular: Regular rate Extremities: No clubbing, No cyanosis, Diminished Peripheral Pulses - Diminished dorsal pedis pulses bilaterally, Edema - Generalized bilateral lower extremity edema Skin: Ulcer/ Wound - Ulceration to left lateral lower extremity with adherent slough to wound bed, otherwise no signs of cellulitis or infection at this time Wound Measurements and Assessment WC - Nurse 1 - General Ulcer Measurement Start: 08/13/18 15:03 Freq: Status: Active Protocol: Activity Type Activity Date Activity User E-Sign Co-Sign Detail Recorded Client Recorded Date Recorded By Document 08/20/18 14:26 VA [id number] 08/20/18 14:34 VA 08/20/18 14:26 Wound Center Nurse 1 [Ulcer Assessment] #4 LEFT LATERAL LOWER LEG -Combined with other wound No -Current Size (cm) - Length 0.1 -Current Size (cm) - Width 0.1 -Current Size (cm) - Depth 0.1 -Total Square Cm 0.01 -Photo Taken No -Tunneling No -Undermining/Tunneling No -Circular Undermining No -Granulation Amt Large (67-100%) -Slough/Fibrin No -Texture (Kajal-wound Skin Appearance) Assessed -Moisture (Kajal-wound Skin Appearance Assessed ) -Color (Kajal-wound Skin Appearance) Assessed Erythema -Temperature (Kajal-wound Skin No Abnormality Appearance) (Pt Warm) -Tenderness on Palpation (Kajal-wound No Skin Appearance) -Ulcer Cleansing Wound Cleanser -Foul Odor after Cleansing No -Anesthetic Used 4% Lidocaine Solution [Edema Assessment] -Left Calf (cm) 29 -Left Ankle (cm) 20.2 - Nurse 2 - General Ulcer CM Notes Start: 08/13/18 15:03 Freq: Status: Active Protocol: Activity Type Activity Date Activity User E-Sign Co-Sign Detail Recorded Client Recorded Date Recorded By Document 08/20/18 14:45 [id number] 08/20/18 14:54 AN 08/20/18 14:45 Wound Center Nurse 2 [Procedure/Treatment] #4 LEFT LATERAL LOWER LEG -Time 14:46 -Correct Patient Yes -Correct Side, Site, Position Yes -Correct Procedure Yes -Procedure Performed Yes -Type of Procedure Debridement -Clinical Debridement Subcutaneous -Post Debridement Size (cm) - Length 2 -Post Debridement Size (cm) - Width 0.8 -Post Debridement Size (cm) - Depth 0.1 -Total Square Cm 1.6 -Wound/Ulcer Outcome Not Healed -Ulcer Cleansing Rinsed/ Irrigated with Saline -Foul Odor after Cleansing No -Bioengineered Tissue Yes -Type of bioengineered Tissue [id number] -Expiration Date 10/21/20 -Product Lot Number [id number] -Percent Used 100 -Saline Lot Number [id number] -Topical Lidocaine (%) 4 -Bleeding Controlled with Pressure -Offloading Yes -Type of Offloading Surgical Shoe -Treatment Response Procedure Tolerated Well [See Physician Procedure note for Specifics] Pain Scale: 0-10 Numeric [Pain] -Is Patient Pain Free? Yes Neurological: Neuro grossly intact Psych/Mental Status: Normal Affect, Appropriate, Alert and oriented to time, place, person, mood and affect Debridement Note Post-Debridement Measurements/Treatment WC - Nurse 2 - General Ulcer CM Notes Start: 08/13/18 15:03 Freq: Status: Active Protocol: Activity Type Activity Date Activity User E-Sign Co-Sign Detail Recorded Client Recorded Date Recorded By Document 08/13/18 15:18 AN [id number] 08/13/18 15:30 AN Document 08/20/18 14:45 AN [id number] 08/20/18 14:54 AN 08/13/18 08/20/18 15:18 14:45 Wound Center Nurse 2 #4 LEFT LATERAL LOWER LEG -Time 15:22 14:46 -Correct Patient Yes Yes -Correct Side, Site, Position Yes Yes -Correct Procedure Yes Yes -Procedure Performed Yes Yes -Type of Procedure Debridement Debridement -Clinical Debridement Subcutaneous Subcutaneous -Post Debridement Size (cm) - Length 2.5 2 -Post Debridement Size (cm) - Width 1.3 0.8 -Post Debridement Size (cm) - Depth 0.1 0.1 -Total Square Cm 3.25 1.6 -Wound/Ulcer Outcome Not Healed Not Healed -Ulcer Cleansing Rinsed/ Rinsed/ Irrigated with Irrigated with Saline Saline -Foul Odor after Cleansing No No -Bioengineered Tissue Yes Yes -Type of bioengineered Tissue [id number] -Expiration Date 08/28/20 10/21/20 -Product Lot Number [id number] -Percent Used 100 100 -Saline Lot Number [id number] -Topical Lidocaine (%) 4 4 -Bleeding Controlled with Pressure Pressure -Offloading No Yes -Type of Offloading Surgical Shoe -Treatment Response Procedure Procedure Tolerated Well Tolerated Well Pain Scale: 0-10 Numeric Is Patient Pain Free? Yes Yes Wound debrided: Left lateral lower extremity venous leg ulcer Laterality: Left Type of Debridement: Excisional debridement Anesthesia Used: 5% Lidocaine Gel Depth: in the subcutaneous layer Percentage of wound debrided: 100 Instrument Used: 5mm curette Tissue Removed: Slough and devitalized tissue Severity: Fat Layer Exposed Amount of bleeding with debridement: Mild Bleeding Controlled with: Pressure Patient tolerated procedure well Assessment/Plan Active Problems Bilateral lower extremity edema (Acute) Nonhealing ulcer of left lower extremity with fat layer exposed (Acute) Venous leg ulcer Cellulitis of left lower extremity (Acute) PVD (peripheral vascular disease) (Chronic) Assessment: Nonhealing venous leg ulcer to left lower extremity with coexisting cellulitis Plan: The patient was seen and examined at the wound center today and was updated on the plan of care. A subcutaneous debridement was performed today. The patient tolerated the procedure well. The patients wound care will consist of:. purApply a.m. #2 was applied after subcutaneous debridement, it was then covered with the wound veil and a thin layer of hydrogel, and secured with Steri-Strips, 100% of the product was used with 0% waste. Patient tolerated the procedure well. And light 3M wrap for compression as she is done well with this in the past. Wound cultures were collected prior and showed staph aureus and anaerobic cocci and patient was started on doxycycline and Flagyl which she has completed. Vascular studies reviewed from July 2017 and demonstrated chronic venous insufficiency and right HARRISON 1.15 and left HARRISON 1.32.. Patient educated on the importance of diet on wound healing and instructed to increase protein and vitamin C intake. Patient verbalized understanding. Patient will follow up at wound healing center in one week or sooner if needed. Patient educated on signs and symptoms of infection and cellulitis that require urgent medical attention. This note was generated with [employer] dictation software. It may contain incorrect words, spelling, and punctuation that were not noted in checking the note before signing. Code Visit 150xxx-152xx: [id number] Skin sub graft trnk/arm/leg
--- NOTE | 2018-08-21 16:38 | PN.PCM_ITS ---
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 Status: Acute Current Visit: Yes Code(s): L97.922 - Non-pressure chronic ulcer of unspecified part of left lower leg with fat layer exposed Comment: Venous leg ulcer (2) Bilateral lower extremity edema Status: Acute Current Visit: Yes Code(s): R60.0 - Localized edema (3) Cellulitis of left lower extremity Status: Acute Current Visit: Yes Code(s): L03.116 - Cellulitis of left lower limb (4) Hypertension Status: Chronic Current Visit: No Code(s): I10 - Essential (primary) hypertension (5) PVD (peripheral vascular disease) Status: Chronic Current Visit: Yes Code(s): I73.9 - Peripheral vascular disease, unspecified Type of Wound Date of Service: 08/20/18 Chief Complaint: Nonhealing ulcer left lower extremity. History of Wound: This is a 78-year-old white female known to me previously who was recently discharged from the [facility] in October 2017 who presents to the wound center today for nonhealing ulcer on her left lower extrtemity x 2 weeks. She has a past medical history which is significant for hypertension, venous insufficiency, vertigo and peripheral vascular disease. The patient has not been utilizing any intervention for wound care and has not been utilizing any compression as well. She does state that the surrounding area around the ulcer is slightly red and warm to touch. She denies any systemic signs of infection at this time and denies any increase in pain around the skin tears or any purulent drainage. She otherwise denies any fever, chills, nausea, vomiting, shortness of breath, chest pain or pressure, syncope or presyncopal episodes. Progress of Wound: Site has improved and wound bed is moist and pink and signs of cellulitis has resolved - Physical Exam Vital Signs Temp Pulse Resp BP 98.4 F 66 18 142/77 H 08/20/18 14:26 08/20/18 14:26 08/20/18 14:26 08/20/18 14:26 General: Alert, Oriented x3, Cooperative, No apparent distress HEENT: Atraumatic Lungs: Clear to auscultation Cardiovascular: Regular rate Extremities: No clubbing, No cyanosis, Diminished Peripheral Pulses - Diminished dorsal pedis pulses bilaterally, Edema - Generalized bilateral lower extremity edema Skin: Ulcer/ Wound - Ulceration to left lateral lower extremity with adherent slough to wound bed, otherwise no signs of cellulitis or infection at this time Wound Measurements and Assessment WC - Nurse 1 - General Ulcer Measurement Start: 08/13/18 15:03 Freq: Status: Active Protocol: Activity Type Activity Date Activity User E-Sign Co-Sign Detail Recorded Client Recorded Date Recorded By Document 08/20/18 14:26 AR [id number] 08/20/18 14:34 AR 08/20/18 14:26 Wound Center Nurse 1 [Ulcer Assessment] #4 LEFT LATERAL LOWER LEG -Combined with other wound No -Current Size (cm) - Length 0.1 -Current Size (cm) - Width 0.1 -Current Size (cm) - Depth 0.1 -Total Square Cm 0.01 -Photo Taken No -Tunneling No -Undermining/Tunneling No -Circular Undermining No -Granulation Amt Large (67-100%) -Slough/Fibrin No -Texture (Kajal-wound Skin Appearance) Assessed -Moisture (Kajal-wound Skin Appearance Assessed ) -Color (Kajal-wound Skin Appearance) Assessed Erythema -Temperature (Kajal-wound Skin No Abnormality Appearance) (Pt Warm) -Tenderness on Palpation (Kajal-wound No Skin Appearance) -Ulcer Cleansing Wound Cleanser -Foul Odor after Cleansing No -Anesthetic Used 4% Lidocaine Solution [Edema Assessment] -Left Calf (cm) 29 -Left Ankle (cm) 20.2 - Nurse 2 - General Ulcer CM Notes Start: 08/13/18 15:03 Freq: Status: Active Protocol: Activity Type Activity Date Activity User E-Sign Co-Sign Detail Recorded Client Recorded Date Recorded By Document 08/20/18 14:45 [id number] 08/20/18 14:54 AN 08/20/18 14:45 Wound Center Nurse 2 [Procedure/Treatment] #4 LEFT LATERAL LOWER LEG -Time 14:46 -Correct Patient Yes -Correct Side, Site, Position Yes -Correct Procedure Yes -Procedure Performed Yes -Type of Procedure Debridement -Clinical Debridement Subcutaneous -Post Debridement Size (cm) - Length 2 -Post Debridement Size (cm) - Width 0.8 -Post Debridement Size (cm) - Depth 0.1 -Total Square Cm 1.6 -Wound/Ulcer Outcome Not Healed -Ulcer Cleansing Rinsed/ Irrigated with Saline -Foul Odor after Cleansing No -Bioengineered Tissue Yes -Type of bioengineered Tissue [id number] -Expiration Date 10/21/20 -Product Lot Number [id number] -Percent Used 100 -Saline Lot Number [id number] -Topical Lidocaine (%) 4 -Bleeding Controlled with Pressure -Offloading Yes -Type of Offloading Surgical Shoe -Treatment Response Procedure Tolerated Well [See Physician Procedure note for Specifics] Pain Scale: 0-10 Numeric [Pain] -Is Patient Pain Free? Yes Neurological: Neuro grossly intact Psych/Mental Status: Normal Affect, Appropriate, Alert and oriented to time, place, person, mood and affect Debridement Note Post-Debridement Measurements/Treatment WC - Nurse 2 - General Ulcer CM Notes Start: 08/13/18 15:03 Freq: Status: Active Protocol: Activity Type Activity Date Activity User E-Sign Co-Sign Detail Recorded Client Recorded Date Recorded By Document 08/13/18 15:18 AN [id number] 08/13/18 15:30 AN Document 08/20/18 14:45 AN [id number] 08/20/18 14:54 AN 08/13/18 08/20/18 15:18 14:45 Wound Center Nurse 2 #4 LEFT LATERAL LOWER LEG -Time 15:22 14:46 -Correct Patient Yes Yes -Correct Side, Site, Position Yes Yes -Correct Procedure Yes Yes -Procedure Performed Yes Yes -Type of Procedure Debridement Debridement -Clinical Debridement Subcutaneous Subcutaneous -Post Debridement Size (cm) - Length 2.5 2 -Post Debridement Size (cm) - Width 1.3 0.8 -Post Debridement Size (cm) - Depth 0.1 0.1 -Total Square Cm 3.25 1.6 -Wound/Ulcer Outcome Not Healed Not Healed -Ulcer Cleansing Rinsed/ Rinsed/ Irrigated with Irrigated with Saline Saline -Foul Odor after Cleansing No No -Bioengineered Tissue Yes Yes -Type of bioengineered Tissue [id number] -Expiration Date 08/28/20 10/21/20 -Product Lot Number [id number] -Percent Used 100 100 -Saline Lot Number [id number] -Topical Lidocaine (%) 4 4 -Bleeding Controlled with Pressure Pressure -Offloading No Yes -Type of Offloading Surgical Shoe -Treatment Response Procedure Procedure Tolerated Well Tolerated Well Pain Scale: 0-10 Numeric Is Patient Pain Free? Yes Yes Wound debrided: Left lateral lower extremity venous leg ulcer Laterality: Left Type of Debridement: Excisional debridement Anesthesia Used: 5% Lidocaine Gel Depth: in the subcutaneous layer Percentage of wound debrided: 100 Instrument Used: 5mm curette Tissue Removed: Slough and devitalized tissue Severity: Fat Layer Exposed Amount of bleeding with debridement: Mild Bleeding Controlled with: Pressure Patient tolerated procedure well Assessment/Plan Active Problems Bilateral lower extremity edema (Acute) Nonhealing ulcer of left lower extremity with fat layer exposed (Acute) Venous leg ulcer Cellulitis of left lower extremity (Acute) PVD (peripheral vascular disease) (Chronic) Assessment: Nonhealing venous leg ulcer to left lower extremity with coexisting cellulitis Plan: The patient was seen and examined at the wound center today and was updated on the plan of care. A subcutaneous debridement was performed today. The patient tolerated the procedure well. The patients wound care will consist of:. purApply a.m. #2 was applied after subcutaneous debridement, it was then covered with the wound veil and a thin layer of hydrogel, and secured with Steri-Strips, 100% of the product was used with 0% waste. Patient tolerated the procedure well. And light 3M wrap for compression as she is done well with this in the past. Wound cultures were collected prior and showed staph aureus and anaerobic cocci and patient was started on doxycycline and Flagyl which she has completed. Vascular studies reviewed from July 2017 and demonstrated chronic venous insufficiency and right HARRISON 1.15 and left HARRISON 1.32.. Patient educated on the importance of diet on wound healing and instructed to increase protein and vitamin C intake. Patient verbalized understanding. Patient will follow up at wound healing center in one week or sooner if needed. Patient educated on signs and symptoms of infection and cellulitis that require urgent medical attention. This note was generated with [employer] dictation software. It may contain incorrect words, spelling, and punctuation that were not noted in checking the note before signing. Code Visit 150xxx-152xx: 50960 Skin sub graft trnk/arm/leg
[2018-08-27 13:55] VITALS: BP 133/79; PULSE 75; RESP 16; TEMP 36.8; BMI 21.4
--- NOTE | 2018-08-27 19:19 | PCM.WC.PN ---
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 Status: Acute Code(s): L97.922 - Non-pressure chronic ulcer of unspecified part of left lower leg with fat layer exposed Comment: Venous leg ulcer (2) Bilateral lower extremity edema Status: Acute Code(s): R60.0 - Localized edema (3) Cellulitis of left lower extremity Status: Acute Code(s): L03.116 - Cellulitis of left lower limb (4) Hypertension Status: Chronic Code(s): I10 - Essential (primary) hypertension (5) PVD (peripheral vascular disease) Status: Chronic Code(s): I73.9 - Peripheral vascular disease, unspecified Type of Wound Date of Service: 08/27/18 Chief Complaint: Nonhealing ulcer left lower extremity. History of Wound: This is a 78-year-old white female known to me previously who was recently discharged from the [facility] in October 2017 who presents to the wound center today for nonhealing ulcer on her left lower extrtemity x 2 weeks. She has a past medical history which is significant for hypertension, venous insufficiency, vertigo and peripheral vascular disease. The patient has not been utilizing any intervention for wound care and has not been utilizing any compression as well. She does state that the surrounding area around the ulcer is slightly red and warm to touch. She denies any systemic signs of infection at this time and denies any increase in pain around the skin tears or any purulent drainage. She otherwise denies any fever, chills, nausea, vomiting, shortness of breath, chest pain or pressure, syncope or presyncopal episodes. Progress of Wound: Site has improved and wound bed is moist and pink and signs of cellulitis has resolved - Physical Exam Vital Signs Temp Pulse Resp BP 98.2 F 75 16 133/79 H 08/27/18 13:55 08/27/18 13:55 08/27/18 13:55 08/27/18 13:55 General: Alert, Oriented x3, Cooperative, No apparent distress HEENT: Atraumatic Oral: Moist Mucosa Lungs: Clear to auscultation Cardiovascular: Regular rate Abdomen: Soft, Non Tender Extremities: No clubbing, No cyanosis, Diminished Peripheral Pulses, Edema - Generalized bilateral lower extremity edema Skin: Ulcer/ Wound - Ulceration to left lateral lower extremity with adherent soft wound bed, no signs of infection at this time Neurological: Neuro grossly intact Psych/Mental Status: Normal Affect, Appropriate, Alert and oriented to time, place, person, mood and affect Debridement Note Post-Debridement Measurements/Treatment WC - Nurse 2 - General Ulcer CM Notes Start: 08/13/18 15:03 Freq: Status: Active Protocol: Activity Type Activity Date Activity User E-Sign Co-Sign Detail Recorded Client Recorded Date Recorded By Document 08/13/18 15:18 AN [id number] 08/13/18 15:30 AN Document 08/20/18 14:45 AN [id number] 08/20/18 14:54 AN Document 08/27/18 14:43 AN [id number] 08/27/18 14:53 AN Document 08/27/18 15:14 AN [id number] 08/27/18 15:23 AN 08/13/18 08/20/18 08/27/18 15:18 14:45 14:43 Wound Center Nurse 2 #4 LEFT LATERAL LOWER LEG -Time 15:22 14:46 14:45 -Correct Patient Yes Yes Yes -Correct Side, Site, Position Yes Yes Yes -Correct Procedure Yes Yes Yes -Procedure Performed Yes Yes Yes -Type of Procedure Debridement Debridement Debridement -Clinical Debridement Subcutaneous Subcutaneous Subcutaneous -Post Debridement Size (cm) - Length 2.5 2 1.5 -Post Debridement Size (cm) - Width 1.3 0.8 0.5 -Post Debridement Size (cm) - Depth 0.1 0.1 0.1 -Total Square Cm 3.25 1.6 0.75 -Wound/Ulcer Outcome Not Healed Not Healed -Ulcer Cleansing Rinsed/ Rinsed/ Irrigated with Irrigated with Saline Saline -Foul Odor after Cleansing No No -Bioengineered Tissue Yes Yes No -Type of bioengineered Tissue [id number] -Expiration Date 08/28/20 10/21/20 10/21/20 -Product Lot Number [id number] -Percent Used 100 100 100 -Saline Lot Number [id number] -Topical Lidocaine (%) 4 4 4 -Bleeding Controlled with Pressure Pressure Pressure -Offloading No Yes -Type of Offloading Surgical Shoe -Treatment Response Procedure Procedure Procedure Tolerated Well Tolerated Well Tolerated Well Pain Scale: 0-10 Numeric Is Patient Pain Free? Yes Yes 08/27/18 15:14 Wound Center Nurse 2 #4 LEFT LATERAL LOWER LEG -Time 15:19 -Correct Patient Yes -Correct Side, Site, Position Yes -Correct Procedure Yes -Procedure Performed Yes -Type of Procedure Debridement -Clinical Debridement Subcutaneous -Post Debridement Size (cm) - Length 4.7 -Post Debridement Size (cm) - Width 0.6 -Post Debridement Size (cm) - Depth 0.1 -Total Square Cm 2.82 -Wound/Ulcer Outcome -Ulcer Cleansing Rinsed/ Irrigated with Saline -Foul Odor after Cleansing No -Bioengineered Tissue No -Type of bioengineered Tissue -Expiration Date -Product Lot Number -Percent Used -Saline Lot Number -Topical Lidocaine (%) -Bleeding Controlled with Pressure -Offloading No -Type of Offloading -Treatment Response Procedure Tolerated Well Pain Scale: 0-10 Numeric Is Patient Pain Free? Yes Wound debrided: Left lateral lower extremity venous leg ulcer Laterality: Left Type of Debridement: Excisional debridement Anesthesia Used: 5% Lidocaine Gel Depth: in the subcutaneous layer Percentage of wound debrided: 100 Instrument Used: 5mm curette Tissue Removed: Slough and devitalized tissue Severity: Fat Layer Exposed Amount of bleeding with debridement: Mild Bleeding Controlled with: Pressure Patient tolerated procedure well Assessment/Plan Assessment: Nonhealing venous leg ulcer to left lower extremity with coexisting cellulitis Plan: The patient was seen and examined at the wound center today and was updated on the plan of care. A subcutaneous debridement was performed today. The patient tolerated the procedure well. The patients wound care will consist of:. purApply a.m. #3 was applied after subcutaneous debridement, it was then covered with the wound veil and a thin layer of hydrogel, and secured with Steri-Strips, 100% of the product was used with 0% waste. Patient tolerated the procedure well. And light 3M wrap for compression as she is done well with this in the past. Wound cultures were collected prior and showed staph aureus and anaerobic cocci and patient was started on doxycycline and Flagyl which she has completed. Vascular studies reviewed from July 2017 and demonstrated chronic venous insufficiency and right HARRISON 1.15 and left HARRISON 1.32.. Patient educated on the importance of diet on wound healing and instructed to increase protein and vitamin C intake. Patient verbalized understanding. Patient will follow up at wound healing center in one week or sooner if needed. Patient educated on signs and symptoms of infection and cellulitis that require urgent medical attention. This note was generated with [employer] ???ation software. It may contain incorrect words, spelling, and punctuation that were not noted in checking the note before signing. Code Visit 150xxx-152xx: 79904 Skin sub graft trnk/arm/leg
--- NOTE | 2018-09-02 11:22 | PN.PCM_ITS ---
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 Status: Acute Code(s): L97.922 - Non-pressure chronic ulcer of unspecified part of left lower leg with fat layer exposed Comment: Venous leg ulcer (2) Bilateral lower extremity edema Status: Acute Code(s): R60.0 - Localized edema (3) Cellulitis of left lower extremity Status: Acute Code(s): L03.116 - Cellulitis of left lower limb (4) Hypertension Status: Chronic Code(s): I10 - Essential (primary) hypertension (5) PVD (peripheral vascular disease) Status: Chronic Code(s): I73.9 - Peripheral vascular disease, unspecified Type of Wound Date of Service: 08/27/18 Chief Complaint: Nonhealing ulcer left lower extremity. History of Wound: This is a 78-year-old white female known to me previously who was recently discharged from the [facility] in October 2017 who presents to the wound center today for nonhealing ulcer on her left lower extrtemity x 2 weeks. She has a past medical history which is significant for hypertension, venous insufficiency, vertigo and peripheral vascular disease. The patient has not been utilizing any intervention for wound care and has not been utilizing any compression as well. She does state that the surrounding area around the ulcer is slightly red and warm to touch. She denies any systemic signs of infection at this time and denies any increase in pain around the skin tears or any purulent drainage. She otherwise denies any fever, chills, nausea, vomiting, shortness of breath, chest pain or pressure, syncope or presyncopal episodes. Progress of Wound: Site has improved and wound bed is moist and pink and signs of cellulitis has resolved - Physical Exam Vital Signs Temp Pulse Resp BP 98.2 F 75 16 133/79 H 08/27/18 13:55 08/27/18 13:55 08/27/18 13:55 08/27/18 13:55 General: Alert, Oriented x3, Cooperative, No apparent distress HEENT: Atraumatic Oral: Moist Mucosa Lungs: Clear to auscultation Cardiovascular: Regular rate Abdomen: Soft, Non Tender Extremities: No clubbing, No cyanosis, Diminished Peripheral Pulses, Edema - Generalized bilateral lower extremity edema Skin: Ulcer/ Wound - Ulceration to left lateral lower extremity with adherent soft wound bed, no signs of infection at this time Neurological: Neuro grossly intact Psych/Mental Status: Normal Affect, Appropriate, Alert and oriented to time, place, person, mood and affect Debridement Note Post-Debridement Measurements/Treatment WC - Nurse 2 - General Ulcer CM Notes Start: 08/13/18 15:03 Freq: Status: Active Protocol: Activity Type Activity Date Activity User E-Sign Co-Sign Detail Recorded Client Recorded Date Recorded By Document 08/13/18 15:18 AN [id number] 08/13/18 15:30 AN Document 08/20/18 14:45 AN [id number] 08/20/18 14:54 AN Document 08/27/18 14:43 AN [id number] 08/27/18 14:53 AN Document 08/27/18 15:14 AN [id number] 08/27/18 15:23 AN 08/13/18 08/20/18 08/27/18 15:18 14:45 14:43 Wound Center Nurse 2 #4 LEFT LATERAL LOWER LEG -Time 15:22 14:46 14:45 -Correct Patient Yes Yes Yes -Correct Side, Site, Position Yes Yes Yes -Correct Procedure Yes Yes Yes -Procedure Performed Yes Yes Yes -Type of Procedure Debridement Debridement Debridement -Clinical Debridement Subcutaneous Subcutaneous Subcutaneous -Post Debridement Size (cm) - Length 2.5 2 1.5 -Post Debridement Size (cm) - Width 1.3 0.8 0.5 -Post Debridement Size (cm) - Depth 0.1 0.1 0.1 -Total Square Cm 3.25 1.6 0.75 -Wound/Ulcer Outcome Not Healed Not Healed -Ulcer Cleansing Rinsed/ Rinsed/ Irrigated with Irrigated with Saline Saline -Foul Odor after Cleansing No No -Bioengineered Tissue Yes Yes No -Type of bioengineered Tissue [id number] -Expiration Date 08/28/20 10/21/20 10/21/20 -Product Lot Number [id number] -Percent Used 100 100 100 -Saline Lot Number [id number] -Topical Lidocaine (%) 4 4 4 -Bleeding Controlled with Pressure Pressure Pressure -Offloading No Yes -Type of Offloading Surgical Shoe -Treatment Response Procedure Procedure Procedure Tolerated Well Tolerated Well Tolerated Well Pain Scale: 0-10 Numeric Is Patient Pain Free? Yes Yes 08/27/18 15:14 Wound Center Nurse 2 #4 LEFT LATERAL LOWER LEG -Time 15:19 -Correct Patient Yes -Correct Side, Site, Position Yes -Correct Procedure Yes -Procedure Performed Yes -Type of Procedure Debridement -Clinical Debridement Subcutaneous -Post Debridement Size (cm) - Length 4.7 -Post Debridement Size (cm) - Width 0.6 -Post Debridement Size (cm) - Depth 0.1 -Total Square Cm 2.82 -Wound/Ulcer Outcome -Ulcer Cleansing Rinsed/ Irrigated with Saline -Foul Odor after Cleansing No -Bioengineered Tissue No -Type of bioengineered Tissue -Expiration Date -Product Lot Number -Percent Used -Saline Lot Number -Topical Lidocaine (%) -Bleeding Controlled with Pressure -Offloading No -Type of Offloading -Treatment Response Procedure Tolerated Well Pain Scale: 0-10 Numeric Is Patient Pain Free? Yes Wound debrided: Left lateral lower extremity venous leg ulcer Laterality: Left Type of Debridement: Excisional debridement Anesthesia Used: 5% Lidocaine Gel Depth: in the subcutaneous layer Percentage of wound debrided: 100 Instrument Used: 5mm curette Tissue Removed: Slough and devitalized tissue Severity: Fat Layer Exposed Amount of bleeding with debridement: Mild Bleeding Controlled with: Pressure Patient tolerated procedure well Assessment/Plan Assessment: Nonhealing venous leg ulcer to left lower extremity with coexisting cellulitis Plan: The patient was seen and examined at the wound center today and was updated on the plan of care. A subcutaneous debridement was performed today. The patient tolerated the procedure well. The patients wound care will consist of:. purApply a.m. #3 was applied after subcutaneous debridement, it was then covered with the wound veil and a thin layer of hydrogel, and secured with Steri-Strips, 100% of the product was used with 0% waste. Patient tolerated the procedure well. And light 3M wrap for compression as she is done well with this in the past. Wound cultures were collected prior and showed staph aureus and anaerobic cocci and patient was started on doxycycline and Flagyl which she has completed. Vascular studies reviewed from July 2017 and demonstrated chronic venous insufficiency and right HARRISON 1.15 and left HARRISON 1.32.. Patient educated on the importance of diet on wound healing and instructed to increase protein and vitamin C intake. Patient verbalized understanding. Patient will follow up at wound healing center in one week or sooner if needed. Patient educated on signs and symptoms of infection and cellulitis that require urgent medical attention. This note was generated with [employer] software. It may contain incorrect words, spelling, and punctuation that were not noted in checking the note before signing. Code Visit 150xxx-152xx: [id number] Skin sub graft trnk/arm/leg
[2018-09-03 13:52] VITALS: BP 117/63; PULSE 71; RESP 18; TEMP 36.4; BMI 21.4
--- NOTE | 2018-09-03 19:32 | PCM.WC.PN ---
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 Status: Acute Code(s): L97.922 - Non-pressure chronic ulcer of unspecified part of left lower leg with fat layer exposed Comment: Venous leg ulcer (2) Bilateral lower extremity edema Status: Acute Code(s): R60.0 - Localized edema (3) Cellulitis of left lower extremity Status: Acute Code(s): L03.116 - Cellulitis of left lower limb (4) Hypertension Status: Chronic Code(s): I10 - Essential (primary) hypertension (5) PVD (peripheral vascular disease) Status: Chronic Code(s): I73.9 - Peripheral vascular disease, unspecified Type of Wound Date of Service: 09/03/18 Chief Complaint: Nonhealing ulcer left lower extremity. History of Wound: This is a 78-year-old white female known to me previously who was recently discharged from the [facility] in October 2017 who presents to the wound center today for nonhealing ulcer on her left lower extrtemity x 2 weeks. She has a past medical history which is significant for hypertension, venous insufficiency, vertigo and peripheral vascular disease. The patient has not been utilizing any intervention for wound care and has not been utilizing any compression as well. She does state that the surrounding area around the ulcer is slightly red and warm to touch. She denies any systemic signs of infection at this time and denies any increase in pain around the skin tears or any purulent drainage. She otherwise denies any fever, chills, nausea, vomiting, shortness of breath, chest pain or pressure, syncope or presyncopal episodes. Progress of Wound: ulceration almost completely healed, .1 x .1 cm wound bed is moist and pink and signs of cellulitis has resolved - Physical Exam Vital Signs Temp Pulse Resp BP 97.5 F L 71 18 117/63 09/03/18 13:52 09/03/18 13:52 09/03/18 13:52 09/03/18 13:52 General: Alert, Oriented x3, Cooperative, No apparent distress HEENT: Atraumatic Lungs: Clear to auscultation, Normal air movement Cardiovascular: Regular rate, Regular Rhythm Abdomen: Soft, Non Tender Extremities: No clubbing, No cyanosis, No edema Skin: Ulcer/ Wound - ulceration to left lateral lower extremity moist and pink without signs of infection Neurological: Neuro grossly intact Psych/Mental Status: Normal Affect, Appropriate, Alert and oriented to time, place, person, mood and affect Debridement Note Post-Debridement Measurements/Treatment WC - Nurse 2 - General Ulcer CM Notes Start: 08/13/18 15:03 Freq: Status: Active Protocol: Activity Type Activity Date Activity User E-Sign Co-Sign Detail Recorded Client Recorded Date Recorded By Document 08/13/18 15:18 AN [id number] 08/13/18 15:30 AN Document 08/20/18 14:45 AN [id number] 08/20/18 14:54 AN Document 08/27/18 14:43 AN [id number] 08/27/18 14:53 AN Document 08/27/18 15:14 AN [id number] 08/27/18 15:23 AN Document 09/03/18 14:47 AN [id number] 09/03/18 14:50 AN 08/13/18 08/20/18 08/27/18 15:18 14:45 14:43 Wound Center Nurse 2 #4 LEFT LATERAL LOWER LEG -Time 15:22 14:46 14:45 -Correct Patient Yes Yes Yes -Correct Side, Site, Position Yes Yes Yes -Correct Procedure Yes Yes Yes -Procedure Performed Yes Yes Yes -Type of Procedure Debridement Debridement Debridement -Clinical Debridement Subcutaneous Subcutaneous Subcutaneous -Post Debridement Size (cm) - Length 2.5 2 1.5 -Post Debridement Size (cm) - Width 1.3 0.8 0.5 -Post Debridement Size (cm) - Depth 0.1 0.1 0.1 -Total Square Cm 3.25 1.6 0.75 -Wound/Ulcer Outcome Not Healed Not Healed -Ulcer Cleansing Rinsed/ Rinsed/ Irrigated with Irrigated with Saline Saline -Foul Odor after Cleansing No No -Bioengineered Tissue Yes Yes No -Type of bioengineered Tissue [id number] -Expiration Date 08/28/20 10/21/20 10/21/20 -Product Lot Number [id number] -Percent Used 100 100 100 -Saline Lot Number [id number] -Topical Lidocaine (%) 4 4 4 -Bleeding Controlled with Pressure Pressure Pressure -Offloading No Yes -Type of Offloading Surgical Shoe -Treatment Response Procedure Procedure Procedure Tolerated Well Tolerated Well Tolerated Well Pain Scale: 0-10 Numeric Is Patient Pain Free? Yes Yes 08/27/18 09/03/18 15:14 14:47 Wound Center Nurse 2 #4 LEFT LATERAL LOWER LEG -Time 15:19 14:48 -Correct Patient Yes Yes -Correct Side, Site, Position Yes Yes -Correct Procedure Yes Yes -Procedure Performed Yes Yes -Type of Procedure Debridement Debridement -Clinical Debridement Subcutaneous Subcutaneous -Post Debridement Size (cm) - Length 4.7 0.1 -Post Debridement Size (cm) - Width 0.6 0.1 -Post Debridement Size (cm) - Depth 0.1 0.1 -Total Square Cm 2.82 0.01 -Wound/Ulcer Outcome Not Healed -Ulcer Cleansing Rinsed/ Rinsed/ Irrigated with Irrigated with Saline Saline -Foul Odor after Cleansing No No -Bioengineered Tissue No No -Type of bioengineered Tissue -Expiration Date -Product Lot Number -Percent Used -Saline Lot Number -Topical Lidocaine (%) -Bleeding Controlled with Pressure Pressure -Offloading No No -Type of Offloading -Treatment Response Procedure Procedure Tolerated Well Tolerated Well Pain Scale: 0-10 Numeric Is Patient Pain Free? Yes Yes Wound debrided: left lateral VLU Laterality: Left Type of Debridement: Excisional debridement Anesthesia Used: 5% Lidocaine Gel Depth: in the subcutaneous layer Percentage of wound debrided: 100 Instrument Used: 3mm curette Tissue Removed: slough and devitalized tissue Severity: Fat Layer Exposed Amount of bleeding with debridement: Mild Bleeding Controlled with: Pressure Patient tolerated procedure well Assessment/Plan Assessment: Nonhealing venous leg ulcer to left lower extremity with coexisting cellulitis Plan: The patient was seen and examined at the wound center today and was updated on the plan of care. A subcutaneous debridement was performed today. The patient tolerated the procedure well. The patients wound care will consist of: adaptic And light 3M wrap for compression as she is done well with this in the past. Wound cultures were collected prior and showed staph aureus and anaerobic cocci and patient was started on doxycycline and Flagyl which she has completed. Vascular studies reviewed from July 2017 and demonstrated chronic venous insufficiency and right HARRISON 1.15 and left HARRISON 1.32.. Patient educated on the importance of diet on wound healing and instructed to increase protein and vitamin C intake. Patient verbalized understanding. Patient will follow up at wound healing center in one week or sooner if needed. Patient educated on signs and symptoms of infection and cellulitis that require urgent medical attention. This note was generated with [employer] dictation software. It may contain incorrect words, spelling, and punctuation that were not noted in checking the note before signing. Code Visit 111xxx-113xx: 74345 Kaley subq tissue 20 sq cm/<
--- NOTE | 2018-09-09 11:35 | PN.PCM_ITS ---
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 Status: Acute Code(s): L97.922 - Non-pressure chronic ulcer of unspecified part of left lower leg with fat layer exposed Comment: Venous leg ulcer (2) Bilateral lower extremity edema Status: Acute Code(s): R60.0 - Localized edema (3) Cellulitis of left lower extremity Status: Acute Code(s): L03.116 - Cellulitis of left lower limb (4) Hypertension Status: Chronic Code(s): I10 - Essential (primary) hypertension (5) PVD (peripheral vascular disease) Status: Chronic Code(s): I73.9 - Peripheral vascular disease, unspecified Type of Wound Date of Service: 09/03/18 Chief Complaint: Nonhealing ulcer left lower extremity. History of Wound: This is a 78-year-old white female known to me previously who was recently discharged from the [facility] in October 2017 who presents to the wound center today for nonhealing ulcer on her left lower extrtemity x 2 weeks. She has a past medical history which is significant for hypertension, venous insufficiency, vertigo and peripheral vascular disease. The patient has not been utilizing any intervention for wound care and has not been utilizing any compression as well. She does state that the surrounding area around the ulcer is slightly red and warm to touch. She denies any systemic signs of infection at this time and denies any increase in pain around the skin tears or any purulent drainage. She otherwise denies any fever, chills, nausea, vomiting, shortness of breath, chest pain or pressure, syncope or presyncopal episodes. Progress of Wound: ulceration almost completely healed, .1 x .1 cm wound bed is moist and pink and signs of cellulitis has resolved - Physical Exam Vital Signs Temp Pulse Resp BP 97.5 F L 71 18 117/63 09/03/18 13:52 09/03/18 13:52 09/03/18 13:52 09/03/18 13:52 General: Alert, Oriented x3, Cooperative, No apparent distress HEENT: Atraumatic Lungs: Clear to auscultation, Normal air movement Cardiovascular: Regular rate, Regular Rhythm Abdomen: Soft, Non Tender Extremities: No clubbing, No cyanosis, No edema Skin: Ulcer/ Wound - ulceration to left lateral lower extremity moist and pink without signs of infection Neurological: Neuro grossly intact Psych/Mental Status: Normal Affect, Appropriate, Alert and oriented to time, place, person, mood and affect Debridement Note Post-Debridement Measurements/Treatment WC - Nurse 2 - General Ulcer CM Notes Start: 08/13/18 15:03 Freq: Status: Active Protocol: Activity Type Activity Date Activity User E-Sign Co-Sign Detail Recorded Client Recorded Date Recorded By Document 08/13/18 15:18 AN [id number] 08/13/18 15:30 AN Document 08/20/18 14:45 AN [id number] 08/20/18 14:54 AN Document 08/27/18 14:43 AN [id number] 08/27/18 14:53 AN Document 08/27/18 15:14 AN [id number] 08/27/18 15:23 AN Document 09/03/18 14:47 AN [id number] 09/03/18 14:50 AN 08/13/18 08/20/18 08/27/18 15:18 14:45 14:43 Wound Center Nurse 2 #4 LEFT LATERAL LOWER LEG -Time 15:22 14:46 14:45 -Correct Patient Yes Yes Yes -Correct Side, Site, Position Yes Yes Yes -Correct Procedure Yes Yes Yes -Procedure Performed Yes Yes Yes -Type of Procedure Debridement Debridement Debridement -Clinical Debridement Subcutaneous Subcutaneous Subcutaneous -Post Debridement Size (cm) - Length 2.5 2 1.5 -Post Debridement Size (cm) - Width 1.3 0.8 0.5 -Post Debridement Size (cm) - Depth 0.1 0.1 0.1 -Total Square Cm 3.25 1.6 0.75 -Wound/Ulcer Outcome Not Healed Not Healed -Ulcer Cleansing Rinsed/ Rinsed/ Irrigated with Irrigated with Saline Saline -Foul Odor after Cleansing No No -Bioengineered Tissue Yes Yes No -Type of bioengineered Tissue [id number] -Expiration Date 08/28/20 10/21/20 10/21/20 -Product Lot Number [id number] -Percent Used 100 100 100 -Saline Lot Number [id number] -Topical Lidocaine (%) 4 4 4 -Bleeding Controlled with Pressure Pressure Pressure -Offloading No Yes -Type of Offloading Surgical Shoe -Treatment Response Procedure Procedure Procedure Tolerated Well Tolerated Well Tolerated Well Pain Scale: 0-10 Numeric Is Patient Pain Free? Yes Yes 08/27/18 09/03/18 15:14 14:47 Wound Center Nurse 2 #4 LEFT LATERAL LOWER LEG -Time 15:19 14:48 -Correct Patient Yes Yes -Correct Side, Site, Position Yes Yes -Correct Procedure Yes Yes -Procedure Performed Yes Yes -Type of Procedure Debridement Debridement -Clinical Debridement Subcutaneous Subcutaneous -Post Debridement Size (cm) - Length 4.7 0.1 -Post Debridement Size (cm) - Width 0.6 0.1 -Post Debridement Size (cm) - Depth 0.1 0.1 -Total Square Cm 2.82 0.01 -Wound/Ulcer Outcome Not Healed -Ulcer Cleansing Rinsed/ Rinsed/ Irrigated with Irrigated with Saline Saline -Foul Odor after Cleansing No No -Bioengineered Tissue No No -Type of bioengineered Tissue -Expiration Date -Product Lot Number -Percent Used -Saline Lot Number -Topical Lidocaine (%) -Bleeding Controlled with Pressure Pressure -Offloading No No -Type of Offloading -Treatment Response Procedure Procedure Tolerated Well Tolerated Well Pain Scale: 0-10 Numeric Is Patient Pain Free? Yes Yes Wound debrided: left lateral VLU Laterality: Left Type of Debridement: Excisional debridement Anesthesia Used: 5% Lidocaine Gel Depth: in the subcutaneous layer Percentage of wound debrided: 100 Instrument Used: 3mm curette Tissue Removed: slough and devitalized tissue Severity: Fat Layer Exposed Amount of bleeding with debridement: Mild Bleeding Controlled with: Pressure Patient tolerated procedure well Assessment/Plan Assessment: Nonhealing venous leg ulcer to left lower extremity with coexisting cellulitis Plan: The patient was seen and examined at the wound center today and was updated on the plan of care. A subcutaneous debridement was performed today. The patient tolerated the procedure well. The patients wound care will consist of: adaptic And light 3M wrap for compression as she is done well with this in the past. Wound cultures were collected prior and showed staph aureus and anaerobic cocci and patient was started on doxycycline and Flagyl which she has completed. Vascular studies reviewed from July 2017 and demonstrated chronic venous insufficiency and right HARRISON 1.15 and left HARRISON 1.32.. Patient educated on the importance of diet on wound healing and instructed to increase protein and vitamin C intake. Patient verbalized understanding. Patient will follow up at wound healing center in one week or sooner if needed. Patient educated on signs and symptoms of infection and cellulitis that require urgent medical attention. This note was generated with [facility] dictation software. It may contain incorrect words, spelling, and punctuation that were not noted in checking the note before signing. Code Visit 111xxx-113xx: 15574 Kaley subq tissue 20 sq cm/<
== END 2018-09-06 23:59 ==
LOC: WC 14:00
PROVIDERS: Visit Provider Nurse Practitioner Family
DX: I73.9 Peripheral vascular disease, unspecified (principal); L97.822 Non-pressure chronic ulcer of other part of left lower leg with fat layer exposed; R60.0 Localized edema; I10 Essential (primary) hypertension; L03.116 Cellulitis of left lower limb
CPT/HCPCS: 11042; 15271; Q4196

== ENCOUNTER 2018-10-01 14:00 | Outpatient (RCR) | payer MEDICARE, SELFPAY ==
[2018-09-07 01:15] VITALS: BP 117/63; PULSE 71; RESP 18; TEMP 36.4
[2018-09-10 14:01] VITALS: BP 148/83; PULSE 78; RESP 16; TEMP 36.4; BMI 21.4
--- NOTE | 2018-09-15 10:48 | PN.PCM_ITS ---
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 Status: Acute Code(s): L97.922 - Non-pressure chronic ulcer of unspecified part of left lower leg with fat layer exposed Comment: Venous leg ulcer (2) Bilateral lower extremity edema Status: Acute Code(s): R60.0 - Localized edema (3) Hypertension Status: Chronic Code(s): I10 - Essential (primary) hypertension (4) PVD (peripheral vascular disease) Status: Chronic Code(s): I73.9 - Peripheral vascular disease, unspecified Type of Wound Date of Service: 09/10/18 Chief Complaint: Nonhealing ulcer left lower extremity. History of Wound: This is a 78-year-old white female known to me previously who was recently discharged from the [facility] [place] in October 2017 who presents to the wound center today for nonhealing ulcer on her left lower extrtemity x 2 weeks. She has a past medical history which is significant for hypertension, venous insufficiency, vertigo and peripheral vascular disease. The patient has not been utilizing any intervention for wound care and has not been utilizing any compression as well. She does state that the surrounding area around the ulcer is slightly red and warm to touch. She denies any systemic signs of infection at this time and denies any increase in pain around the skin tears or any purulent drainage. She otherwise denies any fever, chills, nausea, vomiting, shortness of breath, chest pain or pressure, syncope or presyncopal episodes. Progress of Wound: Site has entirely healed and is epithelialized and signs of cellulitis has resolved. Patient denies any signs of infection at this time. The patient otherwise denies any fever, chills, nausea, vomiting, shortness of breath, chest pain or pressure, palpitations, orthopnea, lower extremity edema, syncope or presyncopal episodes. - Physical Exam Vital Signs Temp Pulse Resp BP 97.5 F L 78 16 148/83 H 09/10/18 14:01 09/10/18 14:01 09/10/18 14:09/10/18 14:01 General: Alert, Oriented x3, Cooperative, No apparent distress HEENT: Atraumatic Oral: Moist Mucosa Lungs: Clear to auscultation Cardiovascular: Regular rate Abdomen: Soft, Non Tender Extremities: No clubbing, No cyanosis, Edema - Generalized bilateral lower extremity edema, Peripheral Pulses Normal Skin: Ulcer/ Wound - Ulceration to left lower extremity is healed without any signs of infection at this time Neurological: Neuro grossly intact Psych/Mental Status: Normal Affect, Appropriate, Alert and oriented to time, place, person, mood and affect Debridement Note No debridement was completed today Assessment/Plan Assessment: Nonhealing venous leg ulcer to left lower extremity with coexisting cellulitis Plan: The patient was seen and examined at the wound center today and was updated on the plan of care. The patient's ulceration is healed at this time without any signs of infection. She was instructed to utilize her compression stockings daily for compression. May use a non-scented moisturizing cream such as Eucerin to bilateral lower extremities for dry skin. Patient educated on the importance of diet on wound healing and instructed to increase protein and vitamin C intake. Patient verbalized understanding. Patient will be discharged from wound healing center and follow-up if needed. Patient educated on signs and symptoms of infection and cellulitis that require urgent medical attention. This note was generated with [email or web address] dictation software. It may contain incorrect words, spelling, and punctuation that were not noted in checking the note before signing. Code Visit Office Visits / Consults: [id number] OV L3 Est
[2018-09-24 13:53] VITALS: BP 134/71; PULSE 84; RESP 18; TEMP 36.1; BMI 21.4
--- NOTE | 2018-09-24 17:20 | PCM.WC.PN ---
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 Status: Acute Code(s): L97.922 - Non-pressure chronic ulcer of unspecified part of left lower leg with fat layer exposed Comment: Venous leg ulcer (2) Bilateral lower extremity edema Status: Acute Code(s): R60.0 - Localized edema (3) Hypertension Status: Chronic Code(s): I10 - Essential (primary) hypertension (4) PVD (peripheral vascular disease) Status: Chronic Code(s): I73.9 - Peripheral vascular disease, unspecified Type of Wound Date of Service: 09/24/18 Chief Complaint: Nonhealing ulcer left lower extremity. History of Wound: This is a 78-year-old white female known to me previously who was recently discharged from the [facility] in October 2017 who presents to the wound center today for nonhealing ulcer on her left lower extrtemity x 2 weeks. She has a past medical history which is significant for hypertension, venous insufficiency, vertigo and peripheral vascular disease. The patient has not been utilizing any intervention for wound care and has not been utilizing any compression as well. She does state that the surrounding area around the ulcer is slightly red and warm to touch. She denies any systemic signs of infection at this time and denies any increase in pain around the skin tears or any purulent drainage. She otherwise denies any fever, chills, nausea, vomiting, shortness of breath, chest pain or pressure, syncope or presyncopal episodes. Progress of Wound: The patient was previously discharged 2 weeks ago, however she states that the night of her date of discharge she was lotioning her legs and may have bumped the recently healed venous leg ulcer to her left lower extremity with her ring and it had opened back up again and had started bleeding. The patient states that that has progressively gotten larger as well. - Physical Exam Vital Signs Temp Pulse Resp BP 97 F L 84 18 134/71 H 09/24/18 13:53 09/24/18 13:53 09/24/18 13:53 09/24/18 13:53 General: Alert, Oriented x3, Cooperative, No apparent distress HEENT: Atraumatic Oral: Moist Mucosa Lungs: Clear to auscultation Cardiovascular: Regular rate Abdomen: Soft, Non Tender Extremities: No clubbing, No cyanosis, Edema - Generalized bilateral lower extremity edema, Peripheral Pulses Normal Skin: Ulcer/ Wound - Ulceration present to left lateral lower extremity with adherent soft wound bed, visible scratches present surrounding the area, no signs of obvious infection at this time Neurological: Neuro grossly intact Psych/Mental Status: Normal Affect, Appropriate, Alert and oriented to time, place, person, mood and affect Debridement Note Post-Debridement Measurements/Treatment WC - Nurse 2 - General Ulcer CM Notes Start: 09/10/18 14:01 Freq: Status: Active Protocol: Activity Type Activity Date Activity User E-Sign Co-Sign Detail Recorded Client Recorded Date Recorded By Document 09/24/18 14:10 AN [id number] 09/24/18 14:16 AN 09/24/18 14:10 Wound Center Nurse 2 #4 LEFT LATERAL LOWER LEG -Time 14:11 -Correct Patient Yes -Correct Side, Site, Position Yes -Correct Procedure Yes -Procedure Performed Yes -Type of Procedure Debridement -Clinical Debridement Subcutaneous -Post Debridement Size (cm) - Length 1.5 -Post Debridement Size (cm) - Width 1.0 -Post Debridement Size (cm) - Depth 0.1 -Total Square Cm 1.50 -Wound/Ulcer Outcome Not Healed -Ulcer Cleansing Rinsed/ Irrigated with Saline -Foul Odor after Cleansing No -Bioengineered Tissue Yes -Type of bioengineered Tissue [id number] -Expiration Date 10/21/20 -Product Lot Number [id number] -Percent Used 100 -Saline Lot Number [id number] -Bleeding Controlled with Pressure -Offloading Yes -Treatment Response Procedure Tolerated Well Pain Scale: 0-10 Numeric Is Patient Pain Free? Yes Wound debrided: Venous leg ulcer left lateral lower extremity Laterality: Left Type of Debridement: Excisional debridement Anesthesia Used: 5% Lidocaine Gel Depth: in the subcutaneous layer Percentage of wound debrided: 100 Instrument Used: 5mm curette Tissue Removed: Slough and devitalized tissue Severity: Fat Layer Exposed Amount of bleeding with debridement: Mild Bleeding Controlled with: Pressure Patient tolerated procedure well Assessment/Plan Assessment: Nonhealing venous leg ulcer to left lower extremity with coexisting cellulitis Plan: The patient was seen and examined at the wound center today and was updated on the plan of care. A subcutaneous debridement was performed today. The patient tolerated the procedure well. The patients wound care will consist of: Purapply #4 applied to the wound bed and secured with wound veil and Steri-Strips and a thin layer of hydrogel was applied. 3M compression wrap applied over top. Vascular studies were ordered within the last year and showed venous insufficiency. Patient educated on the importance of diet on wound healing and instructed to increase protein and vitamin C intake. Patient verbalized understanding. Patient will follow up at wound healing center in one week or sooner if needed. This note was generated with [employer] dictation software. It may contain incorrect words, spelling, and punctuation that were not noted in checking the note before signing. Code Visit 150xxx-152xx: 06255 Skin sub graft trnk/arm/leg
--- NOTE | 2018-09-29 17:25 | PN.PCM_ITS ---
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 Status: Acute Code(s): L97.922 - Non-pressure chronic ulcer of unspecified part of left lower leg with fat layer exposed Comment: Venous leg ulcer (2) Bilateral lower extremity edema Status: Acute Code(s): R60.0 - Localized edema (3) Hypertension Status: Chronic Code(s): I10 - Essential (primary) hypertension (4) PVD (peripheral vascular disease) Status: Chronic Code(s): I73.9 - Peripheral vascular disease, unspecified Type of Wound Date of Service: 09/24/18 Chief Complaint: Nonhealing ulcer left lower extremity. History of Wound: This is a 78-year-old white female known to me previously who was recently discharged from the [facility] in October 2017 who presents to the wound center today for nonhealing ulcer on her left lower extrtemity x 2 weeks. She has a past medical history which is significant for hypertension, venous insufficiency, vertigo and peripheral vascular disease. The patient has not been utilizing any intervention for wound care and has not been utilizing any compression as well. She does state that the surrounding area around the ulcer is slightly red and warm to touch. She denies any systemic signs of infection at this time and denies any increase in pain around the skin tears or any purulent drainage. She otherwise denies any fever, chills, nausea, vomiting, shortness of breath, chest pain or pressure, syncope or presyncopal episodes. Progress of Wound: The patient was previously discharged 2 weeks ago, however she states that the night of her date of discharge she was lotioning her legs and may have bumped the recently healed venous leg ulcer to her left lower extremity with her ring and it had opened back up again and had started bleeding. The patient states that that has progressively gotten larger as well. - Physical Exam Vital Signs Temp Pulse Resp BP 97 F L 84 18 134/71 H 09/24/18 13:53 09/24/18 13:53 09/24/18 13:53 09/24/18 13:53 General: Alert, Oriented x3, Cooperative, No apparent distress HEENT: Atraumatic Oral: Moist Mucosa Lungs: Clear to auscultation Cardiovascular: Regular rate Abdomen: Soft, Non Tender Extremities: No clubbing, No cyanosis, Edema - Generalized bilateral lower extremity edema, Peripheral Pulses Normal Skin: Ulcer/ Wound - Ulceration present to left lateral lower extremity with adherent soft wound bed, visible scratches present surrounding the area, no signs of obvious infection at this time Neurological: Neuro grossly intact Psych/Mental Status: Normal Affect, Appropriate, Alert and oriented to time, place, person, mood and affect Debridement Note Post-Debridement Measurements/Treatment WC - Nurse 2 - General Ulcer CM Notes Start: 09/10/18 14:01 Freq: Status: Active Protocol: Activity Type Activity Date Activity User E-Sign Co-Sign Detail Recorded Client Recorded Date Recorded By Document 09/24/18 14:10 AN [id number] 09/24/18 14:16 AN 09/24/18 14:10 Wound Center Nurse 2 #4 LEFT LATERAL LOWER LEG -Time 14:11 -Correct Patient Yes -Correct Side, Site, Position Yes -Correct Procedure Yes -Procedure Performed Yes -Type of Procedure Debridement -Clinical Debridement Subcutaneous -Post Debridement Size (cm) - Length 1.5 -Post Debridement Size (cm) - Width 1.0 -Post Debridement Size (cm) - Depth 0.1 -Total Square Cm 1.50 -Wound/Ulcer Outcome Not Healed -Ulcer Cleansing Rinsed/ Irrigated with Saline -Foul Odor after Cleansing No -Bioengineered Tissue Yes -Type of bioengineered Tissue [id number] -Expiration Date 10/21/20 -Product Lot Number [id number] -Percent Used 100 -Saline Lot Number [id number] -Bleeding Controlled with Pressure -Offloading Yes -Treatment Response Procedure Tolerated Well Pain Scale: 0-10 Numeric Is Patient Pain Free? Yes Wound debrided: Venous leg ulcer left lateral lower extremity Laterality: Left Type of Debridement: Excisional debridement Anesthesia Used: 5% Lidocaine Gel Depth: in the subcutaneous layer Percentage of wound debrided: 100 Instrument Used: 5mm curette Tissue Removed: Slough and devitalized tissue Severity: Fat Layer Exposed Amount of bleeding with debridement: Mild Bleeding Controlled with: Pressure Patient tolerated procedure well Assessment/Plan Assessment: Nonhealing venous leg ulcer to left lower extremity with coexisting cellulitis Plan: The patient was seen and examined at the wound center today and was updated on the plan of care. A subcutaneous debridement was performed today. The patient tolerated the procedure well. The patients wound care will consist of: Purapply #4 applied to the wound bed and secured with wound veil and Steri- Strips and a thin layer of hydrogel was applied. 3M compression wrap applied over top. Vascular studies were ordered within the last year and showed venous insufficiency. Patient educated on the importance of diet on wound healing and instructed to increase protein and vitamin C intake. Patient verbalized understanding. Patient will follow up at wound healing center in one week or sooner if needed. This note was generated with [employer] dictation software. It may contain incorrect words, spelling, and punctuation that were not noted in checking the note before signing. Code Visit 150xxx-152xx: 31278 Skin sub graft trnk/arm/leg
[2018-10-01 14:13] VITALS: BP 111/74; PULSE 63; RESP 18; TEMP 36.5; BMI 21.4
--- NOTE | 2018-10-01 19:57 | PCM.WC.PN ---
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 History of Wound: This is a 78-year-old white female known to me previously who was recently discharged from the [facility] in October 2017 who presents to the wound center today for nonhealing ulcer on her left lower extrtemity x 2 weeks. She has a past medical history which is significant for hypertension, venous insufficiency, vertigo and peripheral vascular disease. The patient has not been utilizing any intervention for wound care and has not been utilizing any compression as well. She does state that the surrounding area around the ulcer is slightly red and warm to touch. She denies any systemic signs of infection at this time and denies any increase in pain around the skin tears or any purulent drainage. She otherwise denies any fever, chills, nausea, vomiting, shortness of breath, chest pain or pressure, syncope or presyncopal episodes. Progress of Wound: ulcer appears to be stable at this time, no signs of acute infection currently, pt denies any complaints currently. - Physical Exam Vital Signs Temp Pulse Resp BP 97.7 F L 63 18 111/74 10/01/18 14:13 10/01/18 14:13 10/01/18 14:13 10/01/18 14:13 General: Alert, Oriented x3, Cooperative, No apparent distress HEENT: Atraumatic Oral: Moist Mucosa Lungs: Clear to auscultation Cardiovascular: Regular rate Abdomen: Soft, Non Tender Extremities: No clubbing, No cyanosis, No edema, Peripheral Pulses Normal Skin: Ulcer/ Wound - Venous leg ulcer to left lateral lower extremity with adherent slough to the wound bed, chronic venous changes and hemosiderin staining to bilateral lower extremities, no redness warmth or streaking at this time. Musculoskeletal: No Tenderness to Palpation of Joints or Extremities Neurological: Neuro grossly intact Psych/Mental Status: Normal Affect, Appropriate, Alert and oriented to time, place, person, mood and affect Debridement Note Post-Debridement Measurements/Treatment WC - Nurse 2 - General Ulcer CM Notes Start: 09/10/18 14:01 Freq: Status: Active Protocol: Activity Type Activity Date Activity User E-Sign Co-Sign Detail Recorded Client Recorded Date Recorded By Document 09/24/18 14:10 AN [id number] 09/24/18 14:16 AN Document 10/01/18 14:46 AN [id number] 10/01/18 14:54 AN 09/24/18 10/01/18 14:10 14:46 Wound Center Nurse 2 #4 LEFT LATERAL LOWER LEG -Time 14:11 14:51 -Correct Patient Yes Yes -Correct Side, Site, Position Yes Yes -Correct Procedure Yes Yes -Procedure Performed Yes Yes -Type of Procedure Debridement Debridement -Clinical Debridement Subcutaneous Subcutaneous -Post Debridement Size (cm) - Length 1.5 2.5 -Post Debridement Size (cm) - Width 1.0 1.0 -Post Debridement Size (cm) - Depth 0.1 0.1 -Total Square Cm 1.50 2.50 -Wound/Ulcer Outcome Not Healed Not Healed -Ulcer Cleansing Rinsed/ Rinsed/ Irrigated with Irrigated with Saline Saline -Foul Odor after Cleansing No No -Bioengineered Tissue Yes No -Type of bioengineered Tissue [id number] -Expiration Date 10/21/20 01/18/21 -Product Lot Number [id number] -Percent Used 100 100 -Saline Lot Number [id number] -Bleeding Controlled with Pressure Pressure -Offloading Yes No -Treatment Response Procedure Procedure Tolerated Well Tolerated Well Pain Scale: 0-10 Numeric Is Patient Pain Free? Yes Yes Wound debrided: Venous leg ulcer left lateral lower extremity Laterality: Left Type of Debridement: Excisional debridement Anesthesia Used: 5% Lidocaine Gel Depth: in the subcutaneous layer Percentage of wound debrided: 100 Instrument Used: 5mm curette Tissue Removed: Slough and devitalized tissue Severity: Fat Layer Exposed Amount of bleeding with debridement: Mild Bleeding Controlled with: Pressure Patient tolerated procedure well Assessment/Plan Assessment: Nonhealing venous leg ulcer to left lower extremity with coexisting cellulitis Plan: The patient was seen and examined at the wound center today and was updated on the plan of care. A subcutaneous debridement was performed today. The patient tolerated the procedure well. The patients wound care will consist of: Purapply #5 applied to the wound bed and secured with wound veil and Steri-Strips and a thin layer of hydrogel was applied. 3M compression wrap applied over top. Vascular studies were ordered within the last year and showed venous insufficiency. Patient educated on the importance of diet on wound healing and instructed to increase protein and vitamin C intake. Patient verbalized understanding. Patient will follow up at wound healing center in one week or sooner if needed. This note was generated with [employer] dictation software. It may contain incorrect words, spelling, and punctuation that were not noted in checking the note before signing. Code Visit 150xxx-152xx: [id number] Skin sub graft trnk/arm/leg
--- NOTE | 2018-10-06 08:59 | PN.PCM_ITS ---
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 History of Wound: This is a 78-year-old white female known to me previously who was recently discharged from the [facility] in October 2017 who presents to the wound center today for nonhealing ulcer on her left lower extrtemity x 2 weeks. She has a past medical history which is significant for hypertension, venous insufficiency, vertigo and peripheral vascular disease. The patient has not been utilizing any intervention for wound care and has not been utilizing any compression as well. She does state that the surrounding area around the ulcer is slightly red and warm to touch. She denies any systemic signs of infection at this time and denies any increase in pain around the skin tears or any purulent drainage. She otherwise denies any fever, chills, nausea, vomiting, shortness of breath, chest pain or pressure, syncope or presyncopal episodes. Progress of Wound: ulcer appears to be stable at this time, no signs of acute infection currently, pt denies any complaints currently. - Physical Exam Vital Signs Temp Pulse Resp BP 97.7 F L 63 18 111/74 10/01/18 14:13 10/01/18 14:13 10/01/18 14:13 10/01/18 14:13 General: Alert, Oriented x3, Cooperative, No apparent distress HEENT: Atraumatic Oral: Moist Mucosa Lungs: Clear to auscultation Cardiovascular: Regular rate Abdomen: Soft, Non Tender Extremities: No clubbing, No cyanosis, No edema, Peripheral Pulses Normal Skin: Ulcer/ Wound - Venous leg ulcer to left lateral lower extremity with adherent slough to the wound bed, chronic venous changes and hemosiderin sta ining to bilateral lower extremities, no redness warmth or streaking at this time. Musculoskeletal: No Tenderness to Palpation of Joints or Extremities Neurological: Neuro grossly intact Psych/Mental Status: Normal Affect, Appropriate, Alert and oriented to time, place, person, mood and affect Debridement Note Post-Debridement Measurements/Treatment WC - Nurse 2 - General Ulcer CM Notes Start: 09/10/18 14:01 Freq: Status: Active Protocol: Activity Type Activity Date Activity User E-Sign Co-Sign Detail Recorded Client Recorded Date Recorded By Document 09/24/18 14:10 AN [id number] 09/24/18 14:16 AN Document 10/01/18 14:46 AN [id number] 10/01/18 14:54 AN 09/24/18 10/01/18 14:10 14:46 Wound Center Nurse 2 #4 LEFT LATERAL LOWER LEG -Time 14:11 14:51 -Correct Patient Yes Yes -Correct Side, Site, Position Yes Yes -Correct Procedure Yes Yes -Procedure Performed Yes Yes -Type of Procedure Debridement Debridement -Clinical Debridement Subcutaneous Subcutaneous -Post Debridement Size (cm) - Length 1.5 2.5 -Post Debridement Size (cm) - Width 1.0 1.0 -Post Debridement Size (cm) - Depth 0.1 0.1 -Total Square Cm 1.50 2.50 -Wound/Ulcer Outcome Not Healed Not Healed -Ulcer Cleansing Rinsed/ Rinsed/ Irrigated with Irrigated with Saline Saline -Foul Odor after Cleansing No No -Bioengineered Tissue Yes No -Type of bioengineered Tissue [id number] -Expiration Date 10/21/20 01/18/21 -Product Lot Number [id number] -Percent Used 100 100 -Saline Lot Number [id number] -Bleeding Controlled with Pressure Pressure -Offloading Yes No -Treatment Response Procedure Procedure Tolerated Well Tolerated Well Pain Scale: 0-10 Numeric Is Patient Pain Free? Yes Yes Wound debrided: Venous leg ulcer left lateral lower extremity Laterality: Left Type of Debridement: Excisional debridement Anesthesia Used: 5% Lidocaine Gel Depth: in the subcutaneous layer Percentage of wound debrided: 100 Instrument Used: 5mm curette Tissue Removed: Slough and devitalized tissue Severity: Fat Layer Exposed Amount of bleeding with debridement: Mild Bleeding Controlled with: Pressure Patient tolerated procedure well Assessment/Plan Assessment: Nonhealing venous leg ulcer to left lower extremity with coexisting cellulitis Plan: The patient was seen and examined at the wound center today and was updated on the plan of care. A subcutaneous debridement was performed today. The patient tolerated the procedure well. The patients wound care will consist of: Purapply #5 applied to the wound bed and secured with wound veil and Steri- Strips and a thin layer of hydrogel was applied. 3M compression wrap applied over top. Vascular studies were ordered within the last year and showed venous insufficiency. Patient educated on the importance of diet on wound healing and instructed to increase protein and vitamin C intake. Patient verbalized understanding. Patient will follow up at wound healing center in one week or sooner if needed. This note was generated with [employer] dictation software. It may contain incorrect words, spelling, and punctuation that were not noted in checking the note before signing. Code Visit 150xxx-152xx: [id number] Skin sub graft trnk/arm/leg
== END 2018-10-06 23:59 ==
LOC: WC 14:00
PROVIDERS: Visit Provider Nurse Practitioner Family
DX: I73.9 Peripheral vascular disease, unspecified (principal); L97.822 Non-pressure chronic ulcer of other part of left lower leg with fat layer exposed; I10 Essential (primary) hypertension; R60.0 Localized edema; L03.116 Cellulitis of left lower limb; I87.2 Venous insufficiency (chronic) (peripheral)
CPT/HCPCS: 11042; 15271; 99213; Q4196; G0463

== ENCOUNTER 2018-11-05 14:15 | Outpatient (RCR) | payer MEDICARE, SELFPAY ==
[2018-10-07 01:18] VITALS: BP 111/74; PULSE 63; RESP 18; TEMP 36.5
[2018-10-08 14:09] VITALS: BP 131/89; PULSE 74; RESP 18; TEMP 36.4; BMI 21.4
--- NOTE | 2018-10-08 18:35 | PCM.WC.PN ---
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 History of Wound: This is a 78-year-old white female known to me previously who was recently discharged from the [facility] in October 2017 who presents to the wound center today for nonhealing ulcer on her left lower extrtemity x 2 weeks. She has a past medical history which is significant for hypertension, venous insufficiency, vertigo and peripheral vascular disease. The patient has not been utilizing any intervention for wound care and has not been utilizing any compression as well. She does state that the surrounding area around the ulcer is slightly red and warm to touch. She denies any systemic signs of infection at this time and denies any increase in pain around the skin tears or any purulent drainage. She otherwise denies any fever, chills, nausea, vomiting, shortness of breath, chest pain or pressure, syncope or presyncopal episodes. Progress of Wound: ulcer appears to be stable at this time, no signs of acute infection currently, pt denies any complaints currently. - Physical Exam Vital Signs Temp Pulse Resp BP 97.5 F L 74 18 131/89 H 10/08/18 14:09 10/08/18 14:09 10/08/18 14:09 10/08/18 14:09 General: Alert, Oriented x3, Cooperative, No apparent distress HEENT: Atraumatic Lungs: Clear to auscultation Cardiovascular: Regular rate Abdomen: Soft, Non Tender Extremities: No clubbing, No cyanosis, Edema - Generalized bilateral lower extremity edema with chronic venous changes Skin: Ulcer/ Wound - Ulceration to left lateral lower extremity with adherent slough to wound bed, no signs of obvious infection at this time Neurological: Neuro grossly intact Psych/Mental Status: Normal Affect, Appropriate, Alert and oriented to time, place, person, mood and affect Debridement Note Post-Debridement Measurements/Treatment WC - Nurse 2 - General Ulcer CM Notes Start: 10/08/18 14:09 Freq: Status: Active Protocol: Activity Type Activity Date Activity User E-Sign Co-Sign Detail Recorded Client Recorded Date Recorded By Document 10/08/18 14:25 AN [id number] 10/08/18 14:36 AN 10/08/18 14:25 Wound Center Nurse 2 #4 LEFT LATERAL LOWER LEG -Time 14:25 -Correct Patient Yes -Correct Side, Site, Position Yes -Correct Procedure Yes -Procedure Performed Yes -Type of Procedure Debridement -Clinical Debridement Subcutaneous -Post Debridement Size (cm) - Length 2.2 -Post Debridement Size (cm) - Width 0.9 -Post Debridement Size (cm) - Depth 0.1 -Total Square Cm 1.98 -Wound/Ulcer Outcome Not Healed -Ulcer Cleansing Rinsed/ Irrigated with Saline -Foul Odor after Cleansing No -Bioengineered Tissue No -Type of bioengineered Tissue [id number] -Expiration Date 04/26/23 -Product Lot Number [id number] -Percent Used 100 -Saline Lot Number [id number] -Topical Lidocaine (%) 4 -Bleeding Controlled with Pressure -Offloading No -Treatment Response Procedure Tolerated Well Pain Scale: 0-10 Numeric Is Patient Pain Free? Yes Wound debrided: Left lateral lower extremity venous leg ulcer Type of Debridement: Excisional debridement Anesthesia Used: 5% Lidocaine Gel Depth: in the subcutaneous layer Percentage of wound debrided: 100 Instrument Used: 5mm curette Tissue Removed: Slough and devitalized tissue Severity: Fat Layer Exposed Amount of bleeding with debridement: Mild Bleeding Controlled with: Pressure Patient tolerated procedure well Assessment/Plan Assessment: Nonhealing venous leg ulcer to left lower extremity with coexisting cellulitis Plan: The patient was seen and examined at the wound center today and was updated on the plan of care. A subcutaneous debridement was performed today. The patient tolerated the procedure well. The patients wound care will consist of: nushield # 1 applied to the wound bed and secured with wound veil and Steri-Strips and a thin layer of hydrogel was applied. 3M compression wrap applied over top. Vascular studies were ordered within the last year and showed venous insufficiency. Patient educated on the importance of diet on wound healing and instructed to increase protein and vitamin C intake. Patient verbalized understanding. Patient will follow up at wound healing center in one week or sooner if needed. This note was generated with [employer] dictation software. It may contain incorrect words, spelling, and punctuation that were not noted in checking the note before signing. Code Visit 150xxx-152xx: 11474 Skin sub graft trnk/arm/leg
--- NOTE | 2018-10-13 15:37 | PN.PCM_ITS ---
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 History of Wound: This is a 78-year-old white female known to me previously who was recently discharged from the [facility] in October 2017 who presents to the wound center today for nonhealing ulcer on her left lower extrtemity x 2 weeks. She has a past medical history which is significant for hypertension, venous insufficiency, vertigo and peripheral vascular disease. The patient has not been utilizing any intervention for wound care and has not been utilizing any compression as well. She does state that the surrounding area around the ulcer is slightly red and warm to touch. She denies any systemic signs of infection at this time and denies any increase in pain around the skin tears or any purulent drainage. She otherwise denies any fever, chills, nausea, vomiting, shortness of breath, chest pain or pressure, syncope or presyncopal episodes. Progress of Wound: ulcer appears to be stable at this time, no signs of acute infection currently, pt denies any complaints currently. - Physical Exam Vital Signs Temp Pulse Resp BP 97.5 F L 74 18 131/89 H 10/08/18 14:09 10/08/18 14:09 10/08/18 14:09 10/08/18 14:09 General: Alert, Oriented x3, Cooperative, No apparent distress HEENT: Atraumatic Lungs: Clear to auscultation Cardiovascular: Regular rate Abdomen: Soft, Non Tender Extremities: No clubbing, No cyanosis, Edema - Generalized bilateral lower extremity edema with chronic venous changes Skin: Ulcer/ Wound - Ulceration to left lateral lower extremity with adherent slough to wound bed, no signs of obvious infection at this time Neurological: Neuro grossly intact Psych/Mental Status: Normal Affect, Appropriate, Alert and oriented to time, place, person, mood and affect Debridement Note Post-Debridement Measurements/Treatment WC - Nurse 2 - General Ulcer CM Notes Start: 10/08/18 14:09 Freq: Status: Active Protocol: Activity Type Activity Date Activity User E-Sign Co-Sign Detail Recorded Client Recorded Date Recorded By Document 10/08/18 14:25 AN [id number] 10/08/18 14:36 AN 10/08/18 14:25 Wound Center Nurse 2 #4 LEFT LATERAL LOWER LEG -Time 14:25 -Correct Patient Yes -Correct Side, Site, Position Yes -Correct Procedure Yes -Procedure Performed Yes -Type of Procedure Debridement -Clinical Debridement Subcutaneous -Post Debridement Size (cm) - Length 2.2 -Post Debridement Size (cm) - Width 0.9 -Post Debridement Size (cm) - Depth 0.1 -Total Square Cm 1.98 -Wound/Ulcer Outcome Not Healed -Ulcer Cleansing Rinsed/ Irrigated with Saline -Foul Odor after Cleansing No -Bioengineered Tissue No -Type of bioengineered Tissue NU-SHIELD -Expiration Date 04/26/23 -Product Lot Number [id number] -Percent Used 100 -Saline Lot Number [id number] -Topical Lidocaine (%) 4 -Bleeding Controlled with Pressure -Offloading No -Treatment Response Procedure Tolerated Well Pain Scale: 0-10 Numeric Is Patient Pain Free? Yes Wound debrided: Left lateral lower extremity venous leg ulcer Type of Debridement: Excisional debridement Anesthesia Used: 5% Lidocaine Gel Depth: in the subcutaneous layer Percentage of wound debrided: 100 Instrument Used: 5mm curette Tissue Removed: Slough and devitalized tissue Severity: Fat Layer Exposed Amount of bleeding with debridement: Mild Bleeding Controlled with: Pressure Patient tolerated procedure well Assessment/Plan Assessment: Nonhealing venous leg ulcer to left lower extremity with coexisting cellulitis Plan: The patient was seen and examined at the wound center today and was updated on the plan of care. A subcutaneous debridement was performed today. The patient tolerated the procedure well. The patients wound care will consist of: nushield # 1 applied to the wound bed and secured with wound veil and Steri- Strips and a thin layer of hydrogel was applied. 3M compression wrap applied over top. Vascular studies were ordered within the last year and showed venous insufficiency. Patient educated on the importance of diet on wound healing and instructed to increase protein and vitamin C intake. Patient verbalized understanding. Patient will follow up at wound healing center in one week or sooner if needed. This note was generated with [employer] dictation software. It may contain incorrect words, spelling, and punctuation that were not noted in checking the note before signing. Code Visit 150xxx-152xx: 32629 Skin sub graft trnk/arm/leg
[2018-10-15 14:49] VITALS: BP 97/65; PULSE 69; RESP 16; TEMP 36.9; BMI 21.4
--- NOTE | 2018-10-15 16:34 | PCM.WC.PN ---
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 Status: Acute Code(s): L97.922 - Non-pressure chronic ulcer of unspecified part of left lower leg with fat layer exposed Comment: Venous leg ulcer (2) Bilateral lower extremity edema Status: Acute Code(s): R60.0 - Localized edema (3) Hypertension Status: Chronic Code(s): I10 - Essential (primary) hypertension (4) PVD (peripheral vascular disease) Status: Chronic Code(s): I73.9 - Peripheral vascular disease, unspecified Type of Wound Date of Service: 10/15/18 Chief Complaint: Nonhealing ulcer left lower extremity. History of Wound: This is a 78-year-old white female known to me previously who was recently discharged from the [facility] in October 2017 who presents to the wound center today for nonhealing ulcer on her left lower extrtemity x 2 weeks. She has a past medical history which is significant for hypertension, venous insufficiency, vertigo and peripheral vascular disease. The patient has not been utilizing any intervention for wound care and has not been utilizing any compression as well. She does state that the surrounding area around the ulcer is slightly red and warm to touch. She denies any systemic signs of infection at this time and denies any increase in pain around the skin tears or any purulent drainage. She otherwise denies any fever, chills, nausea, vomiting, shortness of breath, chest pain or pressure, syncope or presyncopal episodes. Progress of Wound: ulcer appears to be improving with nushield at this time, no signs of acute infection currently, pt denies any complaints currently. - Physical Exam Vital Signs Temp Pulse Resp BP 98.4 F 69 16 97/65 10/15/18 14:49 10/15/18 14:49 10/15/18 14:49 10/15/18 14:49 General: Alert, Oriented x3, Cooperative, No apparent distress HEENT: Atraumatic, PERRLA, EOMI Neck: Supple, No JVD, Negative Carotid Bruits Lungs: Clear to auscultation Cardiovascular: Regular rate, Regular Rhythm Abdomen: Soft, Non Tender Extremities: Capillary Refill Less than 3 Seconds, Edema - Underlying bilateral lower extremity edema Skin: Ulcer/ Wound - Ulceration to left lateral lower extremity with adherent slough to wound bed no signs of obvious infection at this time, no redness, warmth, or purulent drainage Neurological: Neuro grossly intact Psych/Mental Status: Normal Affect, Appropriate, Alert and oriented to time, place, person, mood and affect Debridement Note Post-Debridement Measurements/Treatment WC - Nurse 2 - General Ulcer CM Notes Start: 10/08/18 14:09 Freq: Status: Active Protocol: Activity Type Activity Date Activity User E-Sign Co-Sign Detail Recorded Client Recorded Date Recorded By Document 10/08/18 14:25 AN [id number] 10/08/18 14:36 AN Document 10/15/18 15:17 AN [id number] 10/15/18 15:22 AN 10/08/18 10/15/18 14:25 15:17 Wound Center Nurse 2 #4 LEFT LATERAL LOWER LEG -Time 14:25 15:20 -Correct Patient Yes Yes -Correct Side, Site, Position Yes Yes -Correct Procedure Yes Yes -Procedure Performed Yes Yes -Type of Procedure Debridement Debridement -Clinical Debridement Subcutaneous Subcutaneous -Post Debridement Size (cm) - Length 2.2 2 -Post Debridement Size (cm) - Width 0.9 0.6 -Post Debridement Size (cm) - Depth 0.1 0.1 -Total Square Cm 1.98 1.2 -Wound/Ulcer Outcome Not Healed Not Healed -Ulcer Cleansing Rinsed/ Rinsed/ Irrigated with Irrigated with Saline Saline -Foul Odor after Cleansing No -Bioengineered Tissue No -Type of bioengineered Tissue NU-SHIELD NU-SHIELD -Expiration Date 04/26/23 09/21/23 -Product Lot Number [id number] -Percent Used 100 100 -Saline Lot Number [id number] -Topical Lidocaine (%) 4 4 -Bleeding Controlled with Pressure Pressure -Offloading No No -Treatment Response Procedure Procedure Tolerated Well Tolerated Well Pain Scale: 0-10 Numeric Is Patient Pain Free? Yes Yes Wound debrided: Venous leg ulcer left lateral lower extremity Type of Debridement: Excisional debridement Anesthesia Used: 5% Lidocaine Gel Depth: in the subcutaneous layer Percentage of wound debrided: 100 Instrument Used: 3mm curette Tissue Removed: Slough and devitalized tissue Severity: Fat Layer Exposed Amount of bleeding with debridement: Mild Bleeding Controlled with: Pressure Patient tolerated procedure well Assessment/Plan Assessment: Nonhealing venous leg ulcer to left lower extremity with coexisting cellulitis Plan: The patient was seen and examined at the wound center today and was updated on the plan of care. A subcutaneous debridement was performed today. The patient tolerated the procedure well. The patients wound care will consist of: nushield # 2 applied to the wound bed and secured with wound veil and Steri-Strips and a thin layer of hydrogel was applied. 3M compression wrap applied over top. Vascular studies were ordered within the last year and showed venous insufficiency. Patient educated on the importance of diet on wound healing and instructed to increase protein and vitamin C intake. Patient verbalized understanding. Patient will follow up at wound healing center in one week or sooner if needed. This note was generated with [employer] dictation software. It may contain incorrect words, spelling, and punctuation that were not noted in checking the note before signing. Code Visit 150xxx-152xx: [id number] Skin sub graft trnk/arm/leg
--- NOTE | 2018-10-20 16:36 | PN.PCM_ITS ---
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 Status: Acute Code(s): L97.922 - Non-pressure chronic ulcer of unspecified part of left lower leg with fat layer exposed Comment: Venous leg ulcer (2) Bilateral lower extremity edema Status: Acute Code(s): R60.0 - Localized edema (3) Hypertension Status: Chronic Code(s): I10 - Essential (primary) hypertension (4) PVD (peripheral vascular disease) Status: Chronic Code(s): I73.9 - Peripheral vascular disease, unspecified Type of Wound Date of Service: 10/15/18 Chief Complaint: Nonhealing ulcer left lower extremity. History of Wound: This is a 78-year-old white female known to me previously who was recently discharged from the [facility] in October 2017 who presents to the wound center today for nonhealing ulcer on her left lower extrtemity x 2 weeks. She has a past medical history which is significant for hypertension, venous insufficiency, vertigo and peripheral vascular disease. The patient has not been utilizing any intervention for wound care and has not been utilizing any compression as well. She does state that the surrounding area around the ulcer is slightly red and warm to touch. She denies any systemic signs of infection at this time and denies any increase in pain around the skin tears or any purulent drainage. She otherwise denies any fever, chills, nausea, vomiting, shortness of breath, chest pain or pressure, syncope or presyncopal episodes. Progress of Wound: ulcer appears to be improving with nushield at this time, no signs of acute infection currently, pt denies any complaints currently. - Physical Exam Vital Signs Temp Pulse Resp BP 98.4 F 69 16 97/65 10/15/18 14:49 10/15/18 14:49 10/15/18 14:49 10/15/18 14:49 General: Alert, Oriented x3, Cooperative, No apparent distress HEENT: Atraumatic, PERRLA, EOMI Neck: Supple, No JVD, Negative Carotid Bruits Lungs: Clear to auscultation Cardiovascular: Regular rate, Regular Rhythm Abdomen: Soft, Non Tender Extremities: Capillary Refill Less than 3 Seconds, Edema - Underlying bilateral lower extremity edema Skin: Ulcer/ Wound - Ulceration to left lateral lower extremity with adherent slough to wound bed no signs of obvious infection at this time, no redness, warmth, or purulent drainage Neurological: Neuro grossly intact Psych/Mental Status: Normal Affect, Appropriate, Alert and oriented to time, place, person, mood and affect Debridement Note Post-Debridement Measurements/Treatment WC - Nurse 2 - General Ulcer CM Notes Start: 10/08/18 14:09 Freq: Status: Active Protocol: Activity Type Activity Date Activity User E-Sign Co-Sign Detail Recorded Client Recorded Date Recorded By Document 10/08/18 14:25 AN [id number] 10/08/18 14:36 AN Document 10/15/18 15:17 AN [id number] 10/15/18 15:22 AN 10/08/18 10/15/18 14:25 15:17 Wound Center Nurse 2 #4 LEFT LATERAL LOWER LEG -Time 14:25 15:20 -Correct Patient Yes Yes -Correct Side, Site, Position Yes Yes -Correct Procedure Yes Yes -Procedure Performed Yes Yes -Type of Procedure Debridement Debridement -Clinical Debridement Subcutaneous Subcutaneous -Post Debridement Size (cm) - Length 2.2 2 -Post Debridement Size (cm) - Width 0.9 0.6 -Post Debridement Size (cm) - Depth 0.1 0.1 -Total Square Cm 1.98 1.2 -Wound/Ulcer Outcome Not Healed Not Healed -Ulcer Cleansing Rinsed/ Rinsed/ Irrigated with Irrigated with Saline Saline -Foul Odor after Cleansing No -Bioengineered Tissue No -Type of bioengineered Tissue NU-SHIELD NU-SHIELD -Expiration Date 04/26/23 09/21/23 -Product Lot Number [id number] -Percent Used 100 100 -Saline Lot Number [id number] -Topical Lidocaine (%) 4 4 -Bleeding Controlled with Pressure Pressure -Offloading No No -Treatment Response Procedure Procedure Tolerated Well Tolerated Well Pain Scale: 0-10 Numeric Is Patient Pain Free? Yes Yes Wound debrided: Venous leg ulcer left lateral lower extremity Type of Debridement: Excisional debridement Anesthesia Used: 5% Lidocaine Gel Depth: in the subcutaneous layer Percentage of wound debrided: 100 Instrument Used: 3mm curette Tissue Removed: Slough and devitalized tissue Severity: Fat Layer Exposed Amount of bleeding with debridement: Mild Bleeding Controlled with: Pressure Patient tolerated procedure well Assessment/Plan Assessment: Nonhealing venous leg ulcer to left lower extremity with coexisting cellulitis Plan: The patient was seen and examined at the wound center today and was updated on the plan of care. A subcutaneous debridement was performed today. The patient tolerated the procedure well. The patients wound care will consist of: nushield # 2 applied to the wound bed and secured with wound veil and Steri- Strips and a thin layer of hydrogel was applied. 3M compression wrap applied over top. Vascular studies were ordered within the last year and showed venous insufficiency. Patient educated on the importance of diet on wound healing and instructed to increase protein and vitamin C intake. Patient verbalized understanding. Patient will follow up at wound healing center in one week or sooner if needed. This note was generated with [employer] dictation software. It may contain incorrect words, spelling, and punctuation that were not noted in checking the note before signing. Code Visit 150xxx-152xx: [id number] Skin sub graft trnk/arm/leg
[2018-10-22 14:31] VITALS: BP 137/83; PULSE 63; RESP 16; TEMP 36.3; BMI 21.4
--- NOTE | 2018-10-22 16:47 | PCM.WC.PN ---
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 History of Wound: This is a 78-year-old white female known to me previously who was recently discharged from the [facility] in October 2017 who presents to the wound center today for nonhealing ulcer on her left lower extrtemity x 2 weeks. She has a past medical history which is significant for hypertension, venous insufficiency, vertigo and peripheral vascular disease. The patient has not been utilizing any intervention for wound care and has not been utilizing any compression as well. She does state that the surrounding area around the ulcer is slightly red and warm to touch. She denies any systemic signs of infection at this time and denies any increase in pain around the skin tears or any purulent drainage. She otherwise denies any fever, chills, nausea, vomiting, shortness of breath, chest pain or pressure, syncope or presyncopal episodes. Progress of Wound: ulcer appears to be stable at this time, wound bed is moist and pink, no signs of acute infection currently, pt denies any complaints currently. - Physical Exam Vital Signs Temp Pulse Resp BP 97.3 F L 63 16 137/83 H 10/22/18 14:31 10/22/18 14:31 10/22/18 14:31 10/22/18 14:31 General: Alert, Oriented x3, Cooperative, No apparent distress HEENT: PERRLA, EOMI Neck: Supple, No JVD Lungs: Clear to auscultation Cardiovascular: Regular rate, Regular Rhythm Abdomen: Soft, Non Tender Extremities: Capillary Refill Less than 3 Seconds, Edema - Generalized bilateral lower extremity edema Skin: Ulcer/ Wound - Venous leg ulcer to left lateral lower extremity with adherent slough no signs of obvious infection at this time Wound Measurements and Assessment WC - Nurse 1 - General Ulcer Measurement Start: 10/08/18 14:09 Freq: Status: Active Protocol: Activity Type Activity Date Activity User E-Sign Co-Sign Detail Recorded Client Recorded Date Recorded By Document 10/22/18 14:31 [facility] [id number] 10/22/18 14:38 [facility] 10/22/18 14:31 Wound Center Nurse 1 [Ulcer Assessment] #4 LEFT LATERAL LOWER LEG -Combined with other wound No -Current Size (cm) - Length 0.1 -Current Size (cm) - Width 0.1 -Current Size (cm) - Depth 0.1 -Total Square Cm 0.01 -Photo Taken No -Epithelialization None Present -Tunneling No -Undermining/Tunneling No -Circular Undermining No -Exudate Amt Small -Exudate Type Serosanguineous -Wound Margin Distinct, Outline Attached -Granulation Amt None Present (0 %) -Slough/Fibrin Yes -Necrosis Amt Large (67-100%) -Necrotic Tissue Type Adherent Slough -Texture (Kajal-wound Skin Appearance) Assessed Scarring -Moisture (Kajal-wound Skin Appearance Assessed ) -Color (Kajal-wound Skin Appearance) Assessed Erythema Hemosiderin Staining -Temperature (Kajal-wound Skin No Abnormality Appearance) (Pt Warm) -Tenderness on Palpation (Kajal-wound No Skin Appearance) -Ulcer Cleansing Wound Cleanser -Foul Odor after Cleansing No -Anesthetic Used 5% Lidocaine Gel [Edema Assessment] -Lower Limb Edema Present No -Left Calf (cm) 29.2 -Left Ankle (cm) 20.3 WC - Nurse 2 - General Ulcer CM Notes Start: 10/08/18 14:09 Freq: Status: Active Protocol: Activity Type Activity Date Activity User E-Sign Co-Sign Detail Recorded Client Recorded Date Recorded By Document 10/22/18 14:59 AN [id number] 10/22/18 15:04 AN 10/22/18 14:59 Wound Center Nurse 2 [Procedure/Treatment] #4 LEFT LATERAL LOWER LEG -Time 15:02 -Correct Patient Yes -Correct Side, Site, Position Yes -Correct Procedure Yes -Procedure Performed Yes -Type of Procedure Debridement -Clinical Debridement Subcutaneous -Post Debridement Size (cm) - Length 1.9 -Post Debridement Size (cm) - Width 0.5 -Post Debridement Size (cm) - Depth 0.1 -Total Square Cm 0.95 -Wound/Ulcer Outcome Not Healed -Ulcer Cleansing Wound Cleanser -Foul Odor after Cleansing No -Bioengineered Tissue No -Type of bioengineered Tissue NU-SHIELD -Expiration Date 09/29/23 -Product Lot Number [id number] -Percent Used 100 -Saline Lot Number [id number] -Topical Lidocaine (%) 4 -Bleeding Controlled with Pressure -Offloading No -Treatment Response Procedure Tolerated Well [See Physician Procedure note for Specifics] Pain Scale: 0-10 Numeric [Pain] -Is Patient Pain Free? Yes Musculoskeletal: No Muscle Wasting Neurological: Neuro grossly intact Psych/Mental Status: Normal Affect, Appropriate, Alert and oriented to time, place, person, mood and affect Debridement Note Post-Debridement Measurements/Treatment WC - Nurse 2 - General Ulcer CM Notes Start: 10/08/18 14:09 Freq: Status: Active Protocol: Activity Type Activity Date Activity User E-Sign Co-Sign Detail Recorded Client Recorded Date Recorded By Document 10/08/18 14:25 AN [id number] 10/08/18 14:36 AN Document 10/15/18 15:17 AN [id number] 10/15/18 15:22 AN Document 10/22/18 14:59 AN [id number] 10/22/18 15:04 AN 10/08/18 10/15/18 10/22/18 14:25 15:17 14:59 Wound Center Nurse 2 #4 LEFT LATERAL LOWER LEG -Time 14:25 15:20 15:02 -Correct Patient Yes Yes Yes -Correct Side, Site, Position Yes Yes Yes -Correct Procedure Yes Yes Yes -Procedure Performed Yes Yes Yes -Type of Procedure Debridement Debridement Debridement -Clinical Debridement Subcutaneous Subcutaneous Subcutaneous -Post Debridement Size (cm) - Length 2.2 2 1.9 -Post Debridement Size (cm) - Width 0.9 0.6 0.5 -Post Debridement Size (cm) - Depth 0.1 0.1 0.1 -Total Square Cm 1.98 1.2 0.95 -Wound/Ulcer Outcome Not Healed Not Healed Not Healed -Ulcer Cleansing Rinsed/ Rinsed/ Wound Cleanser Irrigated with Irrigated with Saline Saline -Foul Odor after Cleansing No No -Bioengineered Tissue No No -Type of bioengineered Tissue NU-SHIELD NU-SHIELD NU-SHIELD -Expiration Date 04/26/23 09/21/23 09/29/23 -Product Lot Number [id number] -Percent Used 100 100 100 -Saline Lot Number [id number] -Topical Lidocaine (%) 4 4 4 -Bleeding Controlled with Pressure Pressure Pressure -Offloading No No No -Treatment Response Procedure Procedure Procedure Tolerated Well Tolerated Well Tolerated Well Pain Scale: 0-10 Numeric Is Patient Pain Free? Yes Yes Yes Wound debrided: Left lateral lower extremity venous leg ulcer Type of Debridement: Excisional debridement Anesthesia Used: 5% Lidocaine Gel Depth: in the subcutaneous layer Percentage of wound debrided: 100 Instrument Used: 5mm curette Tissue Removed: Slough and devitalized tissue Severity: Fat Layer Exposed Amount of bleeding with debridement: Mild Bleeding Controlled with: Pressure Patient tolerated procedure well Assessment/Plan Active Problems Bilateral lower extremity edema (Acute) Nonhealing ulcer of left lower extremity with fat layer exposed (Acute) Venous leg ulcer Assessment: Nonhealing venous leg ulcer to left lower extremity with coexisting cellulitis Plan: The patient was seen and examined at the wound center today and was updated on the plan of care. A subcutaneous debridement was performed today. The patient tolerated the procedure well. The patients wound care will consist of: nushield # 3 applied to the wound bed and secured with wound veil and Steri-Strips and a thin layer of hydrogel was applied. 3M compression wrap applied over top. Vascular studies were ordered within the last year and showed venous insufficiency. Patient educated on the importance of diet on wound healing and instructed to increase protein and vitamin C intake. Patient verbalized understanding. Patient will follow up at wound healing center in one week or sooner if needed. This note was generated with [employer] software. It may contain incorrect words, spelling, and punctuation that were not noted in checking the note before signing. Code Visit 150xxx-152xx: [id number] Skin sub graft trnk/arm/leg
--- NOTE | 2018-10-23 15:49 | PN.PCM_ITS ---
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 History of Wound: This is a 78-year-old white female known to me previously who was recently discharged from the [facility] in October 2017 who presents to the wound center today for nonhealing ulcer on her left lower extrtemity x 2 weeks. She has a past medical history which is significant for hypertension, venous insufficiency, vertigo and peripheral vascular disease. The patient has not been utilizing any intervention for wound care and has not been utilizing any compression as well. She does state that the surrounding area around the ulcer is slightly red and warm to touch. She denies any systemic signs of infection at this time and denies any increase in pain around the skin tears or any purulent drainage. She otherwise denies any fever, chills, nausea, vomiting, shortness of breath, chest pain or pressure, syncope or presyncopal episodes. Progress of Wound: ulcer appears to be stable at this time, wound bed is moist and pink, no signs of acute infection currently, pt denies any complaints currently. - Physical Exam Vital Signs Temp Pulse Resp BP 97.3 F L 63 16 137/83 H 10/22/18 14:31 10/22/18 14:31 10/22/18 14:31 10/22/18 14:31 General: Alert, Oriented x3, Cooperative, No apparent distress HEENT: PERRLA, EOMI Neck: Supple, No JVD Lungs: Clear to auscultation Cardiovascular: Regular rate, Regular Rhythm Abdomen: Soft, Non Tender Extremities: Capillary Refill Less than 3 Seconds, Edema - Generalized bilateral lower extremity edema Skin: Ulcer/ Wound - Venous leg ulcer to left lateral lower extremity with adherent slough no signs of obvious infection at this time Wound Measurements and Assessment WC - Nurse 1 - General Ulcer Measurement Start: 10/08/18 14:09 Freq: Status: Active Protocol: Activity Type Activity Date Activity User E-Sign Co-Sign Detail Recorded Client Recorded Date Recorded By Document 10/22/18 14:31 [facility] [id number] 10/22/18 14:38 [facility] 10/22/18 14:31 Wound Center Nurse 1 [Ulcer Assessment] #4 LEFT LATERAL LOWER LEG -Combined with other wound No -Current Size (cm) - Length 0.1 -Current Size (cm) - Width 0.1 -Current Size (cm) - Depth 0.1 -Total Square Cm 0.01 -Photo Taken No -Epithelialization None Present -Tunneling No -Undermining/Tunneling No -Circular Undermining No -Exudate Amt Small -Exudate Type Serosanguineous -Wound Margin Distinct, Outline Attached -Granulation Amt None Present (0 %) -Slough/Fibrin Yes -Necrosis Amt Large (67-100%) -Necrotic Tissue Type Adherent Slough -Texture (Kajal-wound Skin Appearance) Assessed Scarring -Moisture (Kajal-wound Skin Appearance Assessed ) -Color (Kajal-wound Skin Appearance) Assessed Erythema Hemosiderin Staining -Temperature (Kajal-wound Skin No Abnormality Appearance) (Pt Warm) -Tenderness on Palpation (Kajal-wound No Skin Appearance) -Ulcer Cleansing Wound Cleanser -Foul Odor after Cleansing No -Anesthetic Used 5% Lidocaine Gel [Edema Assessment] -Lower Limb Edema Present No -Left Calf (cm) 29.2 -Left Ankle (cm) 20.3 WC - Nurse 2 - General Ulcer CM Notes Start: 10/08/18 14:09 Freq: Status: Active Protocol: Activity Type Activity Date Activity User E-Sign Co-Sign Detail Recorded Client Recorded Date Recorded By Document 10/22/18 14:59 AN [id number] 10/22/18 15:04 AN 10/22/18 14:59 Wound Center Nurse 2 [Procedure/Treatment] #4 LEFT LATERAL LOWER LEG -Time 15:02 -Correct Patient Yes -Correct Side, Site, Position Yes -Correct Procedure Yes -Procedure Performed Yes -Type of Procedure Debridement -Clinical Debridement Subcutaneous -Post Debridement Size (cm) - Length 1.9 -Post Debridement Size (cm) - Width 0.5 -Post Debridement Size (cm) - Depth 0.1 -Total Square Cm 0.95 -Wound/Ulcer Outcome Not Healed -Ulcer Cleansing Wound Cleanser -Foul Odor after Cleansing No -Bioengineered Tissue No -Type of bioengineered Tissue NU-SHIELD -Expiration Date 09/29/23 -Product Lot Number [id number] -Percent Used 100 -Saline Lot Number [id number] -Topical Lidocaine (%) 4 -Bleeding Controlled with Pressure -Offloading No -Treatment Response Procedure Tolerated Well [See Physician Procedure note for Specifics] Pain Scale: 0-10 Numeric [Pain] -Is Patient Pain Free? Yes Musculoskeletal: No Muscle Wasting Neurological: Neuro grossly intact Psych/Mental Status: Normal Affect, Appropriate, Alert and oriented to time, place, person, mood and affect Debridement Note Post-Debridement Measurements/Treatment WC - Nurse 2 - General Ulcer CM Notes Start: 10/08/18 14:09 Freq: Status: Active Protocol: Activity Type Activity Date Activity User E-Sign Co-Sign Detail Recorded Client Recorded Date Recorded By Document 10/08/18 14:25 AN [id number] 10/08/18 14:36 AN Document 10/15/18 15:17 AN [id number] 10/15/18 15:22 AN Document 10/22/18 14:59 AN [id number] 10/22/18 15:04 AN 10/08/18 10/15/18 10/22/18 14:25 15:17 14:59 Wound Center Nurse 2 #4 LEFT LATERAL LOWER LEG -Time 14:25 15:20 15:02 -Correct Patient Yes Yes Yes -Correct Side, Site, Position Yes Yes Yes -Correct Procedure Yes Yes Yes -Procedure Performed Yes Yes Yes -Type of Procedure Debridement Debridement Debridement -Clinical Debridement Subcutaneous Subcutaneous Subcutaneous -Post Debridement Size (cm) - Length 2.2 2 1.9 -Post Debridement Size (cm) - Width 0.9 0.6 0.5 -Post Debridement Size (cm) - Depth 0.1 0.1 0.1 -Total Square Cm 1.98 1.2 0.95 -Wound/Ulcer Outcome Not Healed Not Healed Not Healed -Ulcer Cleansing Rinsed/ Rinsed/ Wound Cleanser Irrigated with Irrigated with Saline Saline -Foul Odor after Cleansing No No -Bioengineered Tissue No No -Type of bioengineered Tissue NU-SHIELD NU-SHIELD NU-SHIELD -Expiration Date 04/26/23 09/21/23 09/29/23 -Product Lot Number [id number] no-1240 -Percent Used 100 100 100 -Saline Lot Number [id number] -Topical Lidocaine (%) 4 4 4 -Bleeding Controlled with Pressure Pressure Pressure -Offloading No No No -Treatment Response Procedure Procedure Procedure Tolerated Well Tolerated Well Tolerated Well Pain Scale: 0-10 Numeric Is Patient Pain Free? Yes Yes Yes Wound debrided: Left lateral lower extremity venous leg ulcer Type of Debridement: Excisional debridement Anesthesia Used: 5% Lidocaine Gel Depth: in the subcutaneous layer Percentage of wound debrided: 100 Instrument Used: 5mm curette Tissue Removed: Slough and devitalized tissue Severity: Fat Layer Exposed Amount of bleeding with debridement: Mild Bleeding Controlled with: Pressure Patient tolerated procedure well Assessment/Plan Active Problems Bilateral lower extremity edema (Acute) Nonhealing ulcer of left lower extremity with fat layer exposed (Acute) Venous leg ulcer Assessment: Nonhealing venous leg ulcer to left lower extremity with coexisting cellulitis Plan: The patient was seen and examined at the wound center today and was updated on the plan of care. A subcutaneous debridement was performed today. The patient tolerated the procedure well. The patients wound care will consist of: nushield # 3 applied to the wound bed and secured with wound veil and Steri- Strips and a thin layer of hydrogel was applied. 3M compression wrap applied over top. Vascular studies were ordered within the last year and showed venous insufficiency. Patient educated on the importance of diet on wound healing and instructed to increase protein and vitamin C intake. Patient verbalized understanding. Patient will follow up at wound healing center in one week or sooner if needed. This note was generated with [employer] software. It may contain incorrect words, spelling, and punctuation that were not noted in checking the note before signing. Code Visit 150xxx-152xx: [id number] Skin sub graft trnk/arm/leg
[2018-10-30 15:44] VITALS: BP 130/83; PULSE 69; RESP 16; TEMP 36.2; BMI 21.4
[2018-11-05 14:31] VITALS: BP 132/76; PULSE 71; RESP 18; TEMP 36.1; BMI 21.4
--- NOTE | 2018-11-05 19:29 | PCM.WC.PN ---
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 History of Wound: This is a 78-year-old white female known to me previously who was recently discharged from the [facility] in October 2017 who presents to the wound center today for nonhealing ulcer on her left lower extrtemity x 2 weeks. She has a past medical history which is significant for hypertension, venous insufficiency, vertigo and peripheral vascular disease. The patient has not been utilizing any intervention for wound care and has not been utilizing any compression as well. She does state that the surrounding area around the ulcer is slightly red and warm to touch. She denies any systemic signs of infection at this time and denies any increase in pain around the skin tears or any purulent drainage. She otherwise denies any fever, chills, nausea, vomiting, shortness of breath, chest pain or pressure, syncope or presyncopal episodes. Progress of Wound: Patient did miss her appointment last week due to an acute episode of diarrhea. She states otherwise she is now doing well. Her venous leg ulcer to the left lower extremity is now healed and she denies any signs of infection at this time. She denies any acute concerns. The patient otherwise denies any fever, chills, nausea, vomiting, shortness of breath, chest pain or pressure, palpitations, orthopnea, lower extremity edema, syncope or presyncopal episodes. - Physical Exam Vital Signs Temp Pulse Resp BP 97 F L 71 18 132/76 H 11/05/18 14:31 11/05/18 14:31 11/05/18 14:31 11/05/18 14:31 General: Alert, Oriented x3, Cooperative, No apparent distress HEENT: Atraumatic Oral: Moist Mucosa Lungs: Clear to auscultation, Normal air movement Cardiovascular: Regular rate Abdomen: Soft, Non Tender Extremities: No clubbing, No cyanosis, No edema, Peripheral Pulses Normal Skin: Ulcer/ Wound - Ulceration to left lower extremity is healed without any signs of infection at this time, chronic venous changes present bilaterally Musculoskeletal: No Muscle Wasting Neurological: Neuro grossly intact Psych/Mental Status: Normal Affect, Appropriate, Alert and oriented to time, place, person, mood and affect Debridement Note Post-Debridement Measurements/Treatment WC - Nurse 2 - General Ulcer CM Notes Start: 10/08/18 14:09 Freq: Status: Active Protocol: Activity Type Activity Date Activity User E-Sign Co-Sign Detail Recorded Client Recorded Date Recorded By Document 10/08/18 14:25 AN [id number] 10/08/18 14:36 AN Document 10/15/18 15:17 AN [id number] 10/15/18 15:22 AN Document 10/22/18 14:59 AN [id number] 10/22/18 15:04 AN Document 11/05/18 14:53 AN [id number] 11/05/18 14:55 AN 10/08/18 10/15/18 10/22/18 14:25 15:17 14:59 Wound Center Nurse 2 #4 LEFT LATERAL LOWER LEG -Time 14:25 15:20 15:02 -Correct Patient Yes Yes Yes -Correct Side, Site, Position Yes Yes Yes -Correct Procedure Yes Yes Yes -Procedure Performed Yes Yes Yes -Type of Procedure Debridement Debridement Debridement -Clinical Debridement Subcutaneous Subcutaneous Subcutaneous -Post Debridement Size (cm) - Length 2.2 2 1.9 -Post Debridement Size (cm) - Width 0.9 0.6 0.5 -Post Debridement Size (cm) - Depth 0.1 0.1 0.1 -Total Square Cm 1.98 1.2 0.95 -Wound/Ulcer Outcome Not Healed Not Healed Not Healed -Ulcer Cleansing Rinsed/ Rinsed/ Wound Cleanser Irrigated with Irrigated with Saline Saline -Foul Odor after Cleansing No No -Bioengineered Tissue No No -Type of bioengineered Tissue NU-SHIELD NU-SHIELD NU-SHIELD -Expiration Date 04/26/23 09/21/23 09/29/23 -Product Lot Number [id number] no-1240 -Percent Used 100 100 100 -Saline Lot Number [id number] -Topical Lidocaine (%) 4 4 4 -Bleeding Controlled with Pressure Pressure Pressure -Offloading No No No -Treatment Response Procedure Procedure Procedure Tolerated Well Tolerated Well Tolerated Well Pain Scale: 0-10 Numeric Is Patient Pain Free? Yes Yes Yes 11/05/18 14:53 Wound Center Nurse 2 #4 LEFT LATERAL LOWER LEG -Time -Correct Patient -Correct Side, Site, Position -Correct Procedure -Procedure Performed -Type of Procedure -Clinical Debridement -Post Debridement Size (cm) - Length -Post Debridement Size (cm) - Width -Post Debridement Size (cm) - Depth -Total Square Cm -Wound/Ulcer Outcome -Ulcer Cleansing -Foul Odor after Cleansing -Bioengineered Tissue -Type of bioengineered Tissue -Expiration Date -Product Lot Number -Percent Used -Saline Lot Number -Topical Lidocaine (%) -Bleeding Controlled with -Offloading -Treatment Response Pain Scale: 0-10 Numeric Is Patient Pain Free? Yes No debridement was completed today Assessment/Plan Assessment: Nonhealing venous leg ulcer to left lower extremity with coexisting cellulitis Plan: The patient was seen and examined at the wound center today and was updated on the plan of care. The patient's ulceration is healed at this time. However given patient's noncompliance in the past, will monitor patient with a 1 week follow-up and utilize 3M compression wrap. Discussed bringing her compression stockings with her at her next appointment. Vascular studies were ordered within the last year and showed venous insufficiency. Patient educated on the importance of diet on wound healing and instructed to increase protein and vitamin C intake. Patient verbalized understanding. Patient will follow up at wound healing center in one week or sooner if needed. This note was generated with [employer] dictation software. It may contain incorrect words, spelling, and punctuation that were not noted in checking the note before signing. Code Visit Office Visits / Consults: 12135 OV L3 Est
--- NOTE | 2018-11-10 09:33 | PN.PCM_ITS ---
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 History of Wound: This is a 78-year-old white female known to me previously who was recently discharged from the [facility] in October 2017 who presents to the wound center today for nonhealing ulcer on her left lower extrtemity x 2 weeks. She has a past medical history which is significant for hypertension, venous insufficiency, vertigo and peripheral vascular disease. The patient has not been utilizing any intervention for wound care and has not been utilizing any compression as well. She does state that the surrounding area around the ulcer is slightly red and warm to touch. She denies any systemic signs of infection at this time and denies any increase in pain around the skin tears or any purulent drainage. She otherwise denies any fever, chills, nausea, vomiting, shortness of breath, chest pain or pressure, syncope or presyncopal episodes. Progress of Wound: Patient did miss her appointment last week due to an acute episode of diarrhea. She states otherwise she is now doing well. Her venous leg ulcer to the left lower extremity is now healed and she denies any signs of infection at this time. She denies any acute concerns. The patient otherwise denies any fever, chills, nausea, vomiting, shortness of breath, chest pain or pressure, palpitations, orthopnea, lower extremity edema, syncope or presyncopal episodes. - Physical Exam Vital Signs Temp Pulse Resp BP 97 F L 71 18 132/76 H 11/05/18 14:31 11/05/18 14:31 11/05/18 14:31 11/05/18 14:31 General: Alert, Oriented x3, Cooperative, No apparent distress HEENT: Atraumatic Oral: Moist Mucosa Lungs: Clear to auscultation, Normal air movement Cardiovascular: Regular rate Abdomen: Soft, Non Tender Extremities: No clubbing, No cyanosis, No edema, Peripheral Pulses Normal Skin: Ulcer/ Wound - Ulceration to left lower extremity is healed without any signs of infection at this time, chronic venous changes present bilaterally Musculoskeletal: No Muscle Wasting Neurological: Neuro grossly intact Psych/Mental Status: Normal Affect, Appropriate, Alert and oriented to time, place, person, mood and affect Debridement Note Post-Debridement Measurements/Treatment WC - Nurse 2 - General Ulcer CM Notes Start: 10/08/18 14:09 Freq: Status: Active Protocol: Activity Type Activity Date Activity User E-Sign Co-Sign Detail Recorded Client Recorded Date Recorded By Document 10/08/18 14:25 AN [id number] 10/08/18 14:36 AN Document 10/15/18 15:17 AN [id number] 10/15/18 15:22 AN Document 10/22/18 14:59 AN [id number] 10/22/18 15:04 AN Document 11/05/18 14:53 AN [id number] 11/05/18 14:55 AN 10/08/18 10/15/18 10/22/18 14:25 15:17 14:59 Wound Center Nurse 2 #4 LEFT LATERAL LOWER LEG -Time 14:25 15:20 15:02 -Correct Patient Yes Yes Yes -Correct Side, Site, Position Yes Yes Yes -Correct Procedure Yes Yes Yes -Procedure Performed Yes Yes Yes -Type of Procedure Debridement Debridement Debridement -Clinical Debridement Subcutaneous Subcutaneous Subcutaneous -Post Debridement Size (cm) - Length 2.2 2 1.9 -Post Debridement Size (cm) - Width 0.9 0.6 0.5 -Post Debridement Size (cm) - Depth 0.1 0.1 0.1 -Total Square Cm 1.98 1.2 0.95 -Wound/Ulcer Outcome Not Healed Not Healed Not Healed -Ulcer Cleansing Rinsed/ Rinsed/ Wound Cleanser Irrigated with Irrigated with Saline Saline -Foul Odor after Cleansing No No -Bioengineered Tissue No No -Type of bioengineered Tissue NU-SHIELD NU-SHIELD NU-SHIELD -Expiration Date 04/26/23 09/21/23 09/29/23 -Product Lot Number [id number] no-1240 -Percent Used 100 100 100 -Saline Lot Number [id number] -Topical Lidocaine (%) 4 4 4 -Bleeding Controlled with Pressure Pressure Pressure -Offloading No No No -Treatment Response Procedure Procedure Procedure Tolerated Well Tolerated Well Tolerated Well Pain Scale: 0-10 Numeric Is Patient Pain Free? Yes Yes Yes 11/05/18 14:53 Wound Center Nurse 2 #4 LEFT LATERAL LOWER LEG -Time -Correct Patient -Correct Side, Site, Position -Correct Procedure -Procedure Performed -Type of Procedure -Clinical Debridement -Post Debridement Size (cm) - Length -Post Debridement Size (cm) - Width -Post Debridement Size (cm) - Depth -Total Square Cm -Wound/Ulcer Outcome -Ulcer Cleansing -Foul Odor after Cleansing -Bioengineered Tissue -Type of bioengineered Tissue -Expiration Date -Product Lot Number -Percent Used -Saline Lot Number -Topical Lidocaine (%) -Bleeding Controlled with -Offloading -Treatment Response Pain Scale: 0-10 Numeric Is Patient Pain Free? Yes No debridement was completed today Assessment/Plan Assessment: Nonhealing venous leg ulcer to left lower extremity with coexisting cellulitis Plan: The patient was seen and examined at the wound center today and was updated on the plan of care. The patient's ulceration is healed at this time. However given patient's noncompliance in the past, will monitor patient with a 1 week follow-up and utilize 3M compression wrap. Discussed bringing her compression stockings with her at her next appointment. Vascular studies were ordered within the last year and showed venous insufficiency. Patient educated on the importance of diet on wound healing and instructed to increase protein and vitamin C intake. Patient verbalized understanding. Patient will follow up at wound healing center in one week or sooner if needed. This note was generated with [employer] dictation software. It may contain incorrect words, spelli ng, and punctuation that were not noted in checking the note before signing. Code Visit Office Visits / Consults: 12384 OV L3 Est
== END 2018-11-06 23:59 ==
LOC: WC 14:15
PROVIDERS: Visit Provider Nurse Practitioner Family
DX: I73.9 Peripheral vascular disease, unspecified (principal); R60.0 Localized edema; L97.822 Non-pressure chronic ulcer of other part of left lower leg with fat layer exposed; I10 Essential (primary) hypertension; L03.116 Cellulitis of left lower limb; I87.2 Venous insufficiency (chronic) (peripheral)
CPT/HCPCS: 15271; 29581; 99212; 99213; Q4160; G0463

== ENCOUNTER 2018-11-12 11:42 | Outpatient (RCR) | payer MEDICARE, SELFPAY ==
[2018-11-07 00:53] VITALS: BP 132/76; PULSE 71; RESP 18; TEMP 36.1
[2018-11-12 13:10] VITALS: BP 141/85; PULSE 69; RESP 16; TEMP 36.8; BMI 21.4
--- NOTE | 2018-11-12 18:22 | PCM.WC.PN ---
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 Status: Acute Current Visit: Yes Code(s): L97.922 - Non-pressure chronic ulcer of unspecified part of left lower leg with fat layer exposed Comment: Venous leg ulcer (2) Bilateral lower extremity edema Status: Acute Current Visit: Yes Code(s): R60.0 - Localized edema (3) Hypertension Status: Chronic Current Visit: No Code(s): I10 - Essential (primary) hypertension (4) PVD (peripheral vascular disease) Status: Chronic Current Visit: No Code(s): I73.9 - Peripheral vascular disease, unspecified Type of Wound Date of Service: 11/12/18 Chief Complaint: Nonhealing ulcer left lower extremity. History of Wound: This is a 78-year-old white female known to me previously who was recently discharged from the [facility] [place] in October 2017 who presents to the wound center today for nonhealing ulcer on her left lower extrtemity x 2 weeks. She has a past medical history which is significant for hypertension, venous insufficiency, vertigo and peripheral vascular disease. The patient has not been utilizing any intervention for wound care and has not been utilizing any compression as well. She does state that the surrounding area around the ulcer is slightly red and warm to touch. She denies any systemic signs of infection at this time and denies any increase in pain around the skin tears or any purulent drainage. She otherwise denies any fever, chills, nausea, vomiting, shortness of breath, chest pain or pressure, syncope or presyncopal episodes. Progress of Wound: ulcer to left lower extremity remains healed, patient has done well with 3M wraps for compression. Patient denies any increase in pain or swelling. Patient denies any signs of infection at this time. The patient otherwise denies any fever, chills, nausea, vomiting, shortness of breath, chest pain or pressure, palpitations, orthopnea, lower extremity edema, syncope or presyncopal episodes. - Physical Exam Vital Signs Temp Pulse Resp BP 98.3 F 69 16 141/85 H 11/12/18 13:10 11/12/18 13:10 11/12/18 13:10 11/12/18 13:10 General: Alert, Oriented x3, Cooperative, No apparent distress HEENT: Atraumatic Oral: Moist Mucosa Lungs: Clear to auscultation, Normal air movement Cardiovascular: Regular rate, Regular Rhythm Abdomen: Soft, Non Tender Extremities: No clubbing, No cyanosis, No edema, Peripheral Pulses Normal Skin: Ulcer/ Wound - Site to left lower extremity remains healed, chronic venous changes to bilateral lower extremity present Wound Measurements and Assessment WC - Nurse 1 - General Ulcer Measurement Start: 11/12/18 13:09 Freq: Status: Active Protocol: Activity Type Activity Date Activity User E-Sign Co-Sign Detail Recorded Client Recorded Date Recorded By Document 11/12/18 13:10 [facility] [id number] 11/12/18 13:14 [facility] 11/12/18 13:10 Wound Center Nurse 1 [Edema Assessment] -Lower Limb Edema Present No -Left Calf (cm) 29 -Left Ankle (cm) 20.6 WC - Nurse 2 - General Ulcer CM Notes Start: 11/12/18 13:09 Freq: Status: Active Protocol: Activity Type Activity Date Activity User E-Sign Co-Sign Detail Recorded Client Recorded Date Recorded By Document 11/12/18 13:24 MW [id number] 11/12/18 13:25 MW 11/12/18 13:24 Pain Scale: 0-10 Numeric [Pain] -Is Patient Pain Free? Yes Neurological: Neuro grossly intact Psych/Mental Status: Normal Affect, Appropriate, Alert and oriented to time, place, person, mood and affect Debridement Note Post-Debridement Measurements/Treatment WC - Nurse 2 - General Ulcer CM Notes Start: 11/12/18 13:09 Freq: Status: Active Protocol: Activity Type Activity Date Activity User E-Sign Co-Sign Detail Recorded Client Recorded Date Recorded By Document 11/12/18 13:24 MW [id number] 11/12/18 13:25 MW 11/12/18 13:24 Pain Scale: 0-10 Numeric Is Patient Pain Free? Yes Assessment/Plan Active Problems Bilateral lower extremity edema (Acute) Nonhealing ulcer of left lower extremity with fat layer exposed (Acute) Venous leg ulcer Assessment: Nonhealing venous leg ulcer to left lower extremity with coexisting cellulitis Plan: The patient was seen and examined at the wound center today and was updated on the plan of care. Her ulceration remains healed at this time. Did discuss the importance of compliance with her compression stockings. Discussed prevention of new ulcerations from occurring. Discussed importance of leg elevation as well to be continued. Patient educated on the importance of diet on wound healing and instructed to increase protein and vitamin C intake. Patient verbalized understanding. Patient will be discharged from the wound healing center at this time and will follow up if any new wounds occur. This note was generated with [employer] dictation software. It may contain incorrect words, spelling, and punctuation that were not noted in checking the note before signing. Code Visit Office Visits / Consults: [id number] OV L3 Est
--- NOTE | 2018-11-13 08:26 | PN.PCM_ITS ---
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 Status: Acute Current Visit: Yes Code(s): L97.922 - Non-pressure chronic ulcer of unspecified part of left lower leg with fat layer exposed Comment: Venous leg ulcer (2) Bilateral lower extremity edema Status: Acute Current Visit: Yes Code(s): R60.0 - Localized edema (3) Hypertension Status: Chronic Current Visit: No Code(s): I10 - Essential (primary) hypertension (4) PVD (peripheral vascular disease) Status: Chronic Current Visit: No Code(s): I73.9 - Peripheral vascular disease, unspecified Type of Wound Date of Service: 11/12/18 Chief Complaint: Nonhealing ulcer left lower extremity. History of Wound: This is a 78-year-old white female known to me previously who was recently discharged from the [facility] in October 2017 who presents to the wound center today for nonhealing ulcer on her left lower extrtemity x 2 weeks. She has a past medical history which is significant for hypertension, venous insufficiency, vertigo and peripheral vascular disease. The patient has not been utilizing any intervention for wound care and has not been utilizing any compression as well. She does state that the surrounding area around the ulcer is slightly red and warm to touch. She denies any systemic signs of infection at this time and denies any increase in pain around the skin tears or any purulent drainage. She otherwise denies any fever, chills, nausea, vomiting, shortness of breath, chest pain or pressure, syncope or presyncopal episodes. Progress of Wound: ulcer to left lower extremity remains healed, patient has done well with 3M wraps for compression. Patient denies any increase in pain or swelling. Patient denies any signs of infection at this time. The patient otherwise denies any fever, chills, nausea, vomiting, shortness of breath, chest pain or pressure, palpitations, orthopnea, lower extremity edema, syncope or presyncopal episodes. - Physical Exam Vital Signs Temp Pulse Resp BP 98.3 F 69 16 141/85 H 11/12/18 13:10 11/12/18 13:10 11/12/18 13:10 11/12/18 13:10 General: Alert, Oriented x3, Cooperative, No apparent distress HEENT: Atraumatic Oral: Moist Mucosa Lungs: Clear to auscultation, Normal air movement Cardiovascular: Regular rate, Regular Rhythm Abdomen: Soft, Non Tender Extremities: No clubbing, No cyanosis, No edema, Peripheral Pulses Normal Skin: Ulcer/ Wound - Site to left lower extremity remains healed, chronic venous changes to bilateral lower extremity present Wound Measurements and Assessment WC - Nurse 1 - General Ulcer Measurement Start: 11/12/18 13:09 Freq: Status: Active Protocol: Activity Type Activity Date Activity User E-Sign Co-Sign Detail Recorded Client Recorded Date Recorded By Document 11/12/18 13:10 [facility] [id number] 11/12/18 13:14 [facility] 11/12/18 13:10 Wound Center Nurse 1 [Edema Assessment] -Lower Limb Edema Present No -Left Calf (cm) 29 -Left Ankle (cm) 20.6 WC - Nurse 2 - General Ulcer CM Notes Start: 11/12/18 13:09 Freq: Status: Active Protocol: Activity Type Activity Date Activity User E-Sign Co-Sign Detail Recorded Client Recorded Date Recorded By Document 11/12/18 13:24 MW [id number] 11/12/18 13:25 MW 11/12/18 13:24 Pain Scale: 0-10 Numeric [Pain] -Is Patient Pain Free? Yes Neurological: Neuro grossly intact Psych/Mental Status: Normal Affect, Appropriate, Alert and oriented to time, place, person, mood and affect Debridement Note Post-Debridement Measurements/Treatment WC - Nurse 2 - General Ulcer CM Notes Start: 11/12/18 13:09 Freq: Status: Active Protocol: Activity Type Activity Date Activity User E-Sign Co-Sign Detail Recorded Client Recorded Date Recorded By Document 11/12/18 13:24 MW [id number] 11/12/18 13:25 MW 11/12/18 13:24 Pain Scale: 0-10 Numeric Is Patient Pain Free? Yes Assessment/Plan Active Problems Bilateral lower extremity edema (Acute) Nonhealing ulcer of left lower extremity with fat layer exposed (Acute) Venous leg ulcer Assessment: Nonhealing venous leg ulcer to left lower extremity with coexisting cellulitis Plan: The patient was seen and examined at the wound center today and was updated on the plan of care. Her ulceration remains healed at this time. Did discuss the importance of compliance with her compression stockings. Discussed prevention of new ulcerations from occurring. Discussed importance of leg elevation as well to be continued. Patient educated on the importance of diet on wound healing and instructed to increase protein and vitamin C intake. Taina ent verbalized understanding. Patient will be discharged from the wound healing center at this time and will follow up if any new wounds occur. This note was generated with [employer] dictation software. It may contain incorrect words, spelling, and punctuation that were not noted in checking the note before signing. Code Visit Office Visits / Consults: [id number] OV L3 Est
== END 2018-12-06 23:59 ==
LOC: WC 11:42
PROVIDERS: Visit Provider Nurse Practitioner Family
DX: Z09 Encounter for follow-up examination after completed treatment for conditions other than malignant neoplasm (principal); I73.9 Peripheral vascular disease, unspecified; I10 Essential (primary) hypertension
CPT/HCPCS: 99213; G0463

== ENCOUNTER 2019-02-14 19:01 | Observation (INO) | payer MEDICARE, SELFPAY ==
[2019-02-14] VITALS (12 sets, daily range): BP systolic 155–187; BP diastolic 65–103; PULSE 75–91; RESP 16–18; TEMP 36.6–36.8; O2SAT 93–97; BMI 23.1; BMI 21.8
--- NOTE | 2019-02-14 19:18 | EKG12_ITS ---
Test Reason : CP Blood Pressure : / mmHG Vent. Rate : 074 BPM Atrial Rate : 074 BPM P-R Int : 176 ms QRS Dur : 120 ms QT Int : 438 ms P-R-T Axes : 066 264 042 degrees QTc Int : 486 ms Normal sinus rhythm Right bundle branch block Abnormal ECG Confirmed by BONNY DE SOUZA, TIKA ([id number]), associate entertainment editor LULI GRIFFIN ([id number]) on 02/16/2019 9:32:14 AM Referred By: Lew Thorne Confirmed By:TIKA DRAPER MD
--- NOTE | 2019-02-14 19:18 | RAD_ITS ---
STUDY: X-RAY CHEST REASON FOR EXAM: Female, 78 years old. Slurred and slow speech started around 12:00 TECHNIQUE: AP COMPARISON: None. FINDINGS: EKG leads project over the chest. The lungs are clear and expanded. There is no demonstrated pleural abnormality. Normal size heart. Normal mediastinum and ginette. Normal visualized pulmonary arteries. There is atherosclerotic tortuosity of the aortic arch and descending thoracic aorta. There is scoliosis of the thoracolumbar spine directed towards the right side. Normal visualized ribs, clavicles, and shoulders. There is no demonstrated abnormality of the visualized soft tissue structures of the upper abdomen. RAD/Chest 1 View IMPRESSION: 1. Nonacute portable x-ray examination of the chest. Electronically Signed: Vikash Sosa MD (Brooks) at 20:11 EDT , Service support ,
--- NOTE | 2019-02-14 19:18 | CT_ITS ---
STUDY: CT BRAIN WITHOUT CONTRAST REASON FOR EXAM: Female, 78 years old. Stroke RADIATION DOSAGE (If Supplied By Facility): CTDIvol = ( 44.99 ) mGy, DLP = ( 745.49 ) mGycm TECHNIQUE: Transaxial CT imaging of the brain was performed without administration of intravenous contrast material. Individualized dose optimization techniques were used for this CT. COMPARISON: No relevant priors. FINDINGS: Normal soft tissue structures. Normal calvarium. Mild ex vacuo dilation of the left lateral ventricle, asymmetric to the right side. There are areas of decreased attenuation within the white matter tracts of the supratentorial brain, consistent with microvascular disease changes. There is an old infarction involving the left caudate head and basal ganglia. Normal brainstem. Normal cerebellum. There is no intracranial hemorrhage. There are no findings of an acute ischemic infarction. Normal visualized paranasal sinuses. CT/Brain/Head without Contrast IMPRESSION: 1. No acute intracranial hemorrhage or mass effect. 2. Old left basal ganglia/caudate head lacunar infarction. N.B. : The above information has been verbally conveyed by Vikash Sosa MD (Brooks) to Casandra Guerrero on 02/14/2019 19:33:35 (ET). Electronically Signed: Vikash Sosa MD (Brooks) at 19:36 EDT , Service support ,
--- NOTE | 2019-02-14 19:20 | CT_ITS ---
STUDY: CTA HEAD AND NECK WITH CONTRAST REASON FOR EXAM: Female, 78 years old. Stroke RADIATION DOSAGE (If Supplied By Facility): CTDIvol = ( 17.34 ) mGy, DLP = ( 477.20 ) mGycm TECHNIQUE: CT angiography was performed with a multi-detector CT scanner. Data acquisition was obtained from the skull base through the vertex following intravenous administration of 100 IV Isovue 370. MIP images were reconstructed from the axial data set. Post-processing of the angiographic images was performed, with multiplanar reformation and 3D reconstruction. Degree of stenosis (when present) measured utilizing NASCET criteria. Individualized dose optimization techniques were used for this CT. COMPARISON: head CT from same day FINDINGS: Normal bilateral petrous carotid arteries. Normal right cavernous carotid artery with a normal supraclinoid bifurcation. Normal left cavernous carotid artery with a normal supraclinoid bifurcation. Normal right A1 segments of the anterior cerebral artery. Normal left A1 segments of the anterior cerebral artery. Normal intact anterior communicating artery (ACOM). Normal bilateral A2 segments of the anterior cerebral arteries. Normal right M1 and M2 segments of the middle cerebral arteries, with a normal M1 bifurcation. Normal left M1 and M2 segments of the middle cerebral arteries, with a normal M1 bifurcation. There is non-visualization of the right posterior communicating artery (PCOM). There is non-visualization of the left posterior communicating artery (PCOM). There is a small atretic right vertebral artery with a dominant left vertebral artery. Normal basilar artery with a normal basilar bifurcation. The visualized bilateral superior cerebellar (SCA) arteries are normal. Normal bilateral P1, P2 and visualized P3 segments of the posterior cerebral arteries. There is no demonstrated aneurysm of the lower [place] of [place]. There is no new demonstrated abnormality of the visualized brain. AORTIC ARCH: Normal visualized aortic arch. Normal origins of the brachiocephalic, left common carotid, and left subclavian arteries. RIGHT CAROTID ARTERIES: Normal right common carotid artery (CCA). Normal right common carotid bulb. Normal origin of the right internal carotid (ICA) artery without a hemodynamically significant stenosis. Normal visualized cervical portion of the right internal carotid artery. Normal origin of the right external carotid artery (ECA). LEFT CAROTID ARTERIES: Normal left common carotid artery (CCA). Normal left common carotid bulb. Normal origin of the left internal carotid (ICA) artery without a hemodynamically significant stenosis. Normal visualized cervical portion of the left internal carotid artery. Normal origin of the left external carotid artery (ECA). VERTEBRAL ARTERIES: There is enhancement within the bilateral vertebral arteries with a small right vertebral artery, and a dominant left vertebral artery. CT/CTA Head AND Neck W/ Contrast IMPRESSION: 1. No large vessel arterial occlusion. 2. No hemodynamically significant carotid stenosis. Electronically Signed: Vikash Sosa MD (Brooks) at 20:00 EDT , Service support ,
[2019-02-14 19:27] LABS: Absolute Lymphocyte Count 1.43 X10^3/uL (0.83-4.51); Absolute Neutrophil Count 4.6 X10^3/uL (2.0-7.7); Basophil# 0.04 X10^3/uL; Basophil% 0.6 % (0-1); Eosinophils% 1.5 % (0-5); Hematocrit 50.1 % (37-47); Hemoglobin 15.8 g/dL (12.0-15.0); Lymphocyte # 1.43 X10^3/ul (4.0); Lymphocyte % 20.8 % (19-41); Mean Corp Hgb Conc 31.5 g/dL (32-36); Mean Corpuscular Hgb 28.4 pg (27.0-32.0); Mean Corpuscular Volume 90.1 fL (81-99); Mean Platelet Vol. 9.5 fl (6.2-12.0); Monocyte# 0.74 X10^3/uL; Monocyte% 10.8 % (0-10); NRBC Flagged by Analyzer 0 % (0-5); Neutrophil # 4.55 X10^3/uL (2.7-7.7); Platelet Count 241 K/mm3 (150-450); RBC Distribution Width CV 12.5 % (11.6-14.6); RBC Distribution Width SD 41.2 fl (35.1-43.9); Red Blood Count 5.56 M/mm3 (4.2-5.4); White Blood Count 6.9 K/mm3 (4.4-11.0)
[2019-02-14 19:30] LABS: Prothrombin Time (Protime)PT. 13.1 SECONDS (11.7-14.9)
[2019-02-14 19:31] LABS: Partial Thromboplast Time 22.9 Seconds (24.1-36.2)
[2019-02-14] MEDS: 0.9% Normal Saline 1,000 ML 100 ML IV (19:37)
[2019-02-14 19:39] LABS: Anion Gap 7 (5-15); BUN 10 mg/dL (7-18); BUN/Creat Ratio 14.1 RATIO (10-20); Calcium,Total 8.9 mg/dL (8.5-10.1); Chloride 103 mmol/L (98-107); Creatinine, Serum 0.71 mg/dL (0.55-1.02); EST Glomerular Filtration Rate 85 mL/min (>60); Est Glom Filt Rate - Afr Amer 103 mL/min (>60); Estimated Creatinine Clearance 48.28 ml/min; Glucose 105 mg/dL (74-106); Potassium 3.7 mmol/L (3.5-5.1); Sodium Level 139 mmol/L (136-145)
--- NOTE | 2019-02-14 19:46 | RAD_ITS ---
STUDY: X-RAY - LEFT RADIUS AND ULNA REASON FOR EXAM: Female, 78 years old. Slurred and slow speech, fall around 4:00, left arm pain TECHNIQUE: 2 view(s) of the forearm. COMPARISON: None. FINDINGS: There is localized soft tissue swelling of the posterior mid forearm. There is demineralization of the radius. There is demineralization of the ulna. There is no demonstrated acute fracture. RAD/Forearm 2 Views IMPRESSION: 1. Posterior forearm soft tissue swelling/hematoma. No demonstrated fracture. Electronically Signed: Vikash Sosa MD (Brooks) at 20:10 EDT , Service support ,
--- NOTE | 2019-02-14 20:18 | ED.VISSUMM ---
- ER Visit Summary Date of Service: 02/14/19 Chief Complaint: [Slurred speech] History of Present Illness: The patient is a 78 F [presents to the emergency department with slurred speech that started around noon. Patient also states that she was having a harder time walking and was speaking more slowly just after restorationism. Patient also had a fall around 4:30 PM when she felt like she tripped and struck her left arm on a piano bench. Patient comes in for evaluation via EMS. Denies any recent illness. She denies any chest pain or shortness of breath. She denies any history of prior stroke. Patient does have a history of hypertension.] Physical Examination: [HEENT-PERRLA, EOMI. Cranial nerves II through XII grossly intact. TMs clear. Mucous membranes moist. No adenopathy. No C-spine tenderness on palpation. Cardiovascular-regular rate and rhythm without murmur or ectopy Lungs-clear to auscultation, chest wall stable without crepitus or subcu emphysema Abdomen-normoactive bowel sounds, soft, nontender, no rebound or rigidity, no peritoneal signs. Neuro [id number] and [id number] test normal. Patient has a subtle left-sided facial droop. No focal weakness otherwise noted. Patient speech slightly thick. NIH stroke scale was a 2. Extremities-intact ?4, normal range of motion, normal pulses. Left forearm-patient has soft tissue swelling and ecchymosis to the posterior aspect of the forearm. No obvious bony deformity. Neurovascular intact distally.] Test Results: [Patient not a TPA candidate due to minimal deficits and symptom onset greater than 7 hours. Patient had an EKG on arrival shows sinus rhythm with a ventricular rate of 74 bpm with right bundle branch block. CBC with differential was normal. Chemistries normal. INR was 1.0. Troponin is less than 0.15. CT scan of the brain without contrast showed a old left basal ganglia stroke. Chest x-ray unremarkable. CTA of the head and neck showed no large vessel occlusions. X-ray of the left forearm showed no fractures Emergency Department Course and Treatment: [This was discussed with stroke neurologist who also evaluated patient via teleconference.] Treatment Plan: [Admit for further work-up and evaluation of suspected stroke] Disposition: [Admit] Impression: [CVA Contusion left forearm] This note was generated with Dragon dictation software. It may contain incorrect words, spelling, and punctuation that were not noted in review of the chart prior to signing ED Disposition - Plan for ED Patient: Referrals: Mike Hartley DO [Primary Care Provider] -
--- NOTE | 2019-02-14 20:34 | HP.PCM_ITS ---
Problem List (1) Stroke Status: Suspected (2) Bilateral lower extremity edema Status: Inactive (3) Hypertension Status: Chronic (4) PVD (peripheral vascular disease) Status: Chronic History of Present Illness Date of Admission: 02/14/19 Chief Complaint: slurred speech The patient is a 78 year old F with a significant history of hypertension; peripheral vascular disease who presented to the emergency department with slurred speech that started about 7 hours prior to presentation. Associated with her symptoms is left-sided facial droop. Also patient tripped over and she fell sustaining a bruise on her left forearm. She reports pain in the left forearm; pain at the back of her head and pain at the back of her neck. However, she reports that the pain at the back of her head is chronic. CT imaging of head and neck vessels was remarkable for an old lacunar infarct. Past Medical History Past Medical History (Chronic Problems): Chronic Problems PVD (peripheral vascular disease) (Chronic) Hypertension (Chronic) Allergies aspirin [ASA] Adverse Reaction (Verified 02/14/19 19:08) Itching latex Adverse Reaction (Verified 02/14/19 19:08) Itching Home Medications: Ambulatory Orders Medication Instructions Recorded Bp Defense 1 tab PO DAILY 02/14/19 Hydrochlorothiazide 12.5 mg PO DAILY 02/14/19 Meclizine HCl [Antivert] 25 mg PO DAILY PRN 02/14/19 Surgical History: - - Lumps were removed from bilateral breasts; benign Lives: Spouse/ Significant Other Smoking Status: Never smoker Alcohol: None - *Family History Maternal History Items: Cancer - Her mother had cancer in the abdomen or GI tract. Paternal History Items: Heart Disease Review of Systems Constitutional: Denies: Chills, Fever, Weight Change HEENT: Reports: Head Aches. Denies: Sinus Congestion, Sinus Drainage Cardiovascular: Denies: Chest Pain, Palpitations Respiratory: Denies: Cough, Shortness of breath at rest, Sputum production Gastrointestinal: Denies: Abdominal Pain, Nausea, Vomiting Genitourinary: Denies: Dysuria Musculoskeletal: Reports: Neck Pain. Denies: Joint Pain, Joint Tenderness Skin: Denies: Rash, Wounds Neurological: Reports: Slurred speech, Numbness - Left upper extremity, Tingling - Upper extremity. Denies: Focal weakness Psychiatric: Denies: Anxiety, Depression, Homicidal Ideations, Suicidal Ideations Hematologic/ Lymphatic: Denies: Easy Bruising, Easy Bleeding VTE Information - Inpt Only VTE Present on Admission: No VTE Mechan Device Prophylaxis: SCD's VTE Pharm Prophylaxis ordered?: No Patient Problems: Active and Suspected Problems Stroke (Suspected) - Physical Exam General: Alert, Oriented x3, Cooperative HEENT: Atraumatic, PERRLA, EOMI, Normocephalic Neck: Supple, No JVD, Negative Carotid Bruits Lungs: Clear to auscultation, Normal air movement Cardiovascular: Regular rate, No murmurs Abdomen: Bowel Sounds Present, Soft, Non Tender Extremities: No edema, Capillary Refill Less than 3 Seconds Skin: No rashes, No breakdown, - - Hematoma of left forearm. Musculoskeletal: No Tenderness to Palpation of Joints or Extremities Neurological: Cranial nerves II-XII grossly intact, Facial Droop - Mild to left side, Slurred Speech, - - Strength the left forearm 4 out of 5. All other extremities 5 out of 5. Psych/Mental Status: Normal Affect, Appropriate Vital Signs Temp Pulse Resp BP Pulse Ox 98.2 F 77 18 158/96 H 95 02/14/19 19:03 02/14/19 20:06 02/14/19 20:06 02/14/19 20:06 02/14/19 20:06 Oxygen Delivery Method Room Air Weight: 68.8 kg Body Mass Index (BMI) 23.1 Finger Stick Blood Glucose 98 Laboratory Tests Past 24 Hrs 02/14/19 02/14/19 02/14/19 19:09 19:09 19:09 WBC 6.9 RBC 5.56 H Hgb 15.8 H Hct 50.1 H MCV 90.1 MCH 28.4 MCHC 31.5 L RDW Std Deviation 41.2 RDW Coeff of Terrell 12.5 Plt Count 241 MPV 9.5 Immature Gran % (Auto) 0.300 Neut % (Auto) 66.0 Lymph % (Auto) 20.8 [place] % (Auto) 10.8 H Eos % (Auto) 1.5 Baso % (Auto) 0.6 Absolute Neuts (auto) 4.6 Absolute Lymphs (auto) 1.43 Nucleated RBC % 0 PT 13.1 INR 1.0 APTT 22.9 L Sodium 139 Potassium 3.7 Chloride 103 Carbon Dioxide 29.0 Anion Gap 7 BUN 10 Creatinine 0.71 Estim Creat Clear Calc 48.28 Est GFR (MDRD) Af Amer 103 Est GFR (MDRD) Non-Af 85 BUN/Creatinine Ratio 14.1 Glucose 105 Calcium 8.9 Troponin I < 0.015 Assessment/Plan The patient is a 78 year old F with a significant history of hypertension; peripheral vascular disease who presented to the emergency department with slurred speech; left facial droop; who tripped and fell consistent with probable TIA/stroke. Probable TIA/stroke NINDS NIH Scale was at the emergency department was called as a 2. Tele neurologist was called at the emergency department and it was felt that patient was not a candidate of TPA because it has been 7 hours since patient's symptoms started. CT imaging of head and neck vessels at the emergency department was remarkable for old lacunar infarcts. -Check Hba1c, Lipid level Physical therapy, occupational therapy and speech therapy to work with patient. Patient passed bedside swallow eval at the emergency department. Patient has allergy to aspirin. She reported that she has gum swelling and drooling with aspirin. Aspirin would not be ordered. Statin: Statin was discussed with patient. Patient was reluctant to taking statins statin. She stated that her mother had allergies to statin. Will order statin at this time. Permissive hypertension. Control blood pressure with labetalol for systolic blood pressure of more than 220 or diastolic blood pressure of more than 120. 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 Hypertension On presentation her blood pressure was not within goal. However would hold home blood pressure medication due to probable TIA/stroke. Permissive hypertension as above. Hematoma of left forearm. Secondary to fall Forearm x-ray showed posterior forearm soft tissue swelling/hematoma Started on ice at the emergency department; continued. Scheduled Tylenol. DVT prophylaxis SCD for now. Code Visit OBSV E&M: 18379 Initial observation care L3
--- NOTE | 2019-02-14 21:04 | ECHOD_ITS ---
Reason For Study: TIA/CVA Procedure This was a 2D Doppler, Color Flow transthoracic echocardiogram. The study was technically difficult. Patient scanned supine due to fall on left side. Exam performed portable in patient room. Left Ventricle Normal LV size. Left ventricular systolic function is normal. The estimated ejection fraction is 65 %. Stage 1 diastolic dysfunction. No regional wall motion abnormalities noted. Right Ventricle Normal RV size. Normal systolic function. Atria Normal left atrium. Normal right atrium. Bubble contrast study negative for right to left interatrial shunt. Mitral Valve Normal mitral valve. Tricuspid Valve Normal tricuspid valve. Mild tricuspid valve insufficiency. Pulmonary artery systolic pressure is 24 mmHg. Aortic Valve Normal aortic valve. Pulmonic Valve Normal pulmonic valve. Great Vessels Normal aortic root. The pulmonary artery is normal size. Pericardium/Pleural No pericardial effusion. Medication Performed a rapid injection of agitated mix of 9 cc saline and 1cc air to assess for atrial septal defect. MMode/2D Measurements & Calculations LVIDd: 2.9 cm IVSd: 1.0 cm Ao root diam: 3.8 cm LVIDs: 1.8 cm LVPWd: 0.87 cm FS: 39.7 % LAV(MOD-bp): 31.0 ml LA A4 area: 12.6 cm2 LA dimension(2D): 3.2 cm LAV(MOD-bp) Indexed: 17.1 ml/m2 LAV(MOD-sp2): 32.6 ml LAV(MOD-sp4): 28.1 ml Doppler Measurements & Calculations MV E max gary: 76.7 cm/sec Lat Peak E' Gary: 9.6 cm/sec Med Peak E' Gary: 5.6 cm/sec MV A max gary: 95.0 cm/sec E/E' lat: 8.0 E/E' med: 13.6 MV E/A: 0.81 Ao V2 max: 133.5 cm/sec LV V1 max: 101.8 cm/sec PA V2 max: 73.8 cm/sec Ao max P.1 mmHg LV V1 max P.1 mmHg TR max gary: 227.4 cm/sec TR max P.7 mmHg Interpretation Summary Normal LV size. Left ventricular systolic function is normal. The estimated ejection fraction is 65 %. Stage 1 diastolic dysfunction. Bubble contrast study negative for right to left interatrial shunt. Ordering Physician: Lew Thorne Referring Physician: Mike Hartley Performed By: Christina Carroll RDCS
[2019-02-14 22:20] LABS: Hemoglobin A1c 5.5 % (4.2-6.3)
[2019-02-14] MEDS: Atorvastatin Calcium 40 MG Tablet PO (22:40)
[2019-02-14] MEDS: Acetaminophen 325 MG Tablet 650 MG PO (22:40)
[2019-02-15] VITALS (8 sets, daily range): BP systolic 121–143; BP diastolic 66–81; PULSE 61–91; RESP 14–17; TEMP 36.4–36.7; O2SAT 93–96; BMI 21.8
[2019-02-15] MEDS: Acetaminophen 325 MG Tablet 650 MG PO ×2 (05:37→11:11)
[2019-02-15 06:13] LABS: Cholesterol 171 mg/dL (200); High Density Lipoprotein 45 mg/dL; Triglycerides 121 mg/dL; Very Low Density Lipoprotein 24 mg/dL (5-40)
--- NOTE | 2019-02-15 08:30 | MRI_ITS ---
STUDY: MRI BRAIN WITHOUT CONTRAST REASON FOR EXAM: Female, 78 years old. CVA. Slurred/delayed speech. Facial droop. TECHNIQUE: Standardized multiplanar fat and water weighted pulse sequences were obtained. COMPARISON: CT head and CTA head and neck with contrast 02/14/2019. FINDINGS: No restricted diffusion to suspect acute or subacute ischemic infarct. 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 Normal size of the ventricles and extra-axial spaces for the patient's age. Few subcortical and periventricular white matter T2 FLAIR hyperintensity foci are chronic white matter ischemic changes. No midline shift and no mass effects. Normal bilateral basal ganglia. Normal thalami. There is no extra-axial fluid accumulation. Normal flow voids within the major intracranial circulation suggesting patency by spin echo criteria. Normal sella turcica, pituitary gland, infundibular stalk, optic chiasm and hypothalamus. Normal tectal plate and pineal gland. Normal midbrain, tanisha and medulla. Normal cerebellum. Normal basal cisterns. Normal bilateral temporal bones. Normal bilateral internal auditory canals. No demonstrated orbital abnormality, within the constraints of a routine brain study. Normal visualized paranasal sinuses. Normal calvarium and skull base. Normal visualized soft tissue structures. Normal visualized upper cervical spine. MRI/Brain without Contrast IMPRESSION: 1. No MRI evidence of acute or subacute ischemic infarct or acute intracranial abnormality. 2. 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 3. Few and small chronic white matter ischemic changes in both cerebral hemispheres. Electronically Signed: Chau Aleman MD at 9:08 EDT , Service support ,
[2019-02-15] MEDS: Clopidogrel Bisulfate 75 MG Tablet PO (11:11)
--- NOTE | 2019-02-15 11:19 | PCM.DC ---
You will use the following diet at home:: Cardiac Your food should be the consistency of: Regular Discharge Activity: May Not Drive Weight Bearing Status: Weight bearing as tolerated Call your doctor if you observe: Fever of 101 or Higher, Inability to urinate, Inability to have a bowel movement, Shortness of breath, Dizziness, Fainting spells, Chest pain, Increased palpitations (irregular heartbeat), Calf discomfort, Uncontrolled pain Allergies/Adverse Reactions: Allergies aspirin [ASA] Adverse Reaction (Verified 02/14/19 19:08) Itching latex Adverse Reaction (Verified 02/14/19 19:08) Itching Medications to take at Discharge Bp Defense 1 tab PO DAILY 02/14/19 Atorvastatin Calcium [Lipitor] 40 mg PO QHS #30 tab 02/15/19 Clopidogrel Bisulfate [Plavix] 75 mg PO DAILY #30 tab 02/15/19 Lisinopril/Hydrochlorothiazide [Lisinopril-Hctz 10-12.5 mg Tab] 1 ea PO DAILY #30 tab 02/15/19 Meclizine HCl [Antivert] 25 mg PO BID PRN PRN #30 tab 02/15/19 The following prescriptions were given: Meclizine HCl [Antivert] 25 mg PO BID PRN PRN #30 tab PRN Reason: VERITGO Transmission Status: Pending to [facility] Atorvastatin Calcium [Lipitor] 40 mg PO QHS #30 tab Transmission Status: Pending to [facility] Lisinopril/Hydrochlorothiazide [Lisinopril-Hctz 10-12.5 mg Tab] 1 ea PO DAILY #30 tab Transmission Status: Pending to [facility] Clopidogrel Bisulfate [Plavix] 75 mg PO DAILY #30 tab Transmission Status: Pending to [facility] Primary Care Physician: Mike Hartley DO [Primary Care Provider] - Please follow up with your Primary Care Physician in: in 2 weeks Test Results: Test results from this visit will be discussed in further detail at your follow-up appointment, if applicable. Please Follow Up With: Mary Pena MD When: in 4 weeks
--- NOTE | 2019-02-15 11:21 | DS.PCM_ITS ---
Discharge Date and Diagnosis - Problem List Patient Problems: Active and Suspected Problems Stroke (Suspected) TIA (transient ischemic attack) (Acute) Date of Admission: 02/14/19 Date of Discharge: 02/15/19 - Primary Discharge Diagnosis Active and Suspected Problems Stroke (Suspected) - Secondary Discharge Diagnosis Chronic Problems PVD (peripheral vascular disease) (Chronic) Hypertension (Chronic) Hospital Course and Treatment Imaging Results: 02/15/19 08:30 Brain without Contrast [MRI] Routine Summary of Care Provided: The patient is a 78 year old F with history of hypertension, peripheral arterial disease of left leg with mild weakness in the past came to ER with slurred speech and left-sided facial droop for concern of TIA. NIH stroke scale in ER was found to. Tele-neurologist was consulted in ER and patient was not found a candidate for TPA because of 7 hours prior to symptoms started, and NIH stroke scale 2. The patient was admitted on telemetry. EKG shows normal sinus rhythm. CTA of head and neck does not show hemodynamically significant stenosis or aneurysm. Patient blood pressure was elevated in ED but was on permissive hypertension range. MRI brain was done and reported no acute or subacute infarct. Echo was done and reported EF 65% with normal left atrium size. Bubble contrast study negative. Fasting profile LDL 102, HDL 45, triglyceride 121. A1c 5.5. Patient on a statin and Plavix. PT OT and speech evaluation was done. Hematoma of left forearm. No bony dislocation or fracture found. Patient is advised to follow-up with neuro clinic in 4 weeks. Discharge medication reconciliation done. Discharge follow-up instructions completed. Lisinopril 10 mg added on baseline HCTZ 12.5 mg daily. Discharge process discussed with the patient and all questions were answered to patient's satisfaction. Prescriptions were given. Total time spent, exact 35 minutes on discharge meds reconciliation, examination, review of imaging and blood test and discussion with the patient on follow-up instructions. [] Clinical Impression(s) from Imaging Studies Brain CT 02/14/19 19:18 IMPRESSION: 1. No acute intracranial hemorrhage or mass effect. 2. Old left basal ganglia/caudate head lacunar infarction. Chest X-Ray 02/14/19 19:18 IMPRESSION: 1. Nonacute portable x-ray examination of the chest. Head/Neck CTA 02/14/19 19:20 IMPRESSION: 1. No large vessel arterial occlusion. 2. No hemodynamically significant carotid stenosis. Forearm X-Ray 02/14/19 19:46 IMPRESSION: 1. Posterior forearm soft tissue swelling/hematoma. No demonstrated fracture. Brain MRI 02/15/19 08:30 IMPRESSION: 1. No MRI evidence of acute or subacute ischemic infarct or acute intracranial abnormality. 2. 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 3. Few and small chronic white matter ischemic changes in both cerebral hemispheres. Patient Problems: Active and Suspected Problems Stroke (Suspected) TIA (transient ischemic attack) (Acute) Subjective: Patient was admitted with concern of TIA, slurred speech left-sided facial droop with NIH stroke scale 2. Patient also had trip and fall and has bruise on the left forearm. Left forearm is swollen and painful. - Physical Exam General: Alert, Oriented x3, Cooperative HEENT: Atraumatic, PERRLA, EOMI, Normocephalic Neck: Supple, No JVD, Negative Carotid Bruits Lungs: Clear to auscultation, Normal air movement, No rhonchi, No wheeze, No rales Cardiovascular: Regular rate, Normal S1, Normal S2, No murmurs Abdomen: Bowel Sounds Present, Soft, Non Tender, Non-Distended Extremities: No edema, Capillary Refill Less than 3 Seconds Skin: No rashes, No breakdown Musculoskeletal: No Tenderness to Palpation of Joints or Extremities, Arthritic Changes, Tenderness - Tenderness at the left forearm with swelling. Bluish discoloration suggestive of hematoma. Neurological: Cranial nerves II-XII grossly intact, Deep Tendon Reflexes 2+/4 and Symmetrical, Neuro grossly intact, - - Muscle strength 5/5 at major joints. Patient is speech is back at the normal. No dysphagia, dysarthria. Cerebellar signs are negative. NIH stroke scale 0. Psych/Mental Status: Normal Affect, Appropriate Vital Signs Temp Pulse Resp BP Pulse Ox 98.0 F 91 14 143/81 H 94 02/15/19 10:00 02/15/19 10:41 02/15/19 10:41 02/15/19 10:00 02/15/19 10:41 Oxygen Delivery Method Room Air Weight: 145 lb 11.609 oz Body Mass Index (BMI) 21.8 Finger Stick Blood Glucose 98 Intake and Output for Last 24 Hours 02/13/19 02/14/19 02/15/19 23:59 23:59 23:59 Intake Total 790 / 790 240 / 240 Balance 790 / 790 240 / 240 Laboratory Tests Past 24 Hrs 02/14/19 02/14/19 02/14/19 19:09 19:09 19:09 WBC 6.9 RBC 5.56 H Hgb 15.8 H Hct 50.1 H MCV 90.1 MCH 28.4 MCHC 31.5 L RDW Std Deviation 41.2 RDW Coeff of Terrell 12.5 Plt Count 241 MPV 9.5 Immature Gran % (Auto) 0.300 Neut % (Auto) 66.0 Lymph % (Auto) 20.8 Stewart % (Auto) 10.8 H Eos % (Auto) 1.5 Baso % (Auto) 0.6 Absolute Neuts (auto) 4.6 Absolute Lymphs (auto) 1.43 Nucleated RBC % 0 PT 13.1 INR 1.0 APTT 22.9 L Sodium 139 Potassium 3.7 Chloride 103 Carbon Dioxide 29.0 Anion Gap 7 BUN 10 Creatinine 0.71 Estim Creat Clear Calc 48.28 Est GFR (MDRD) Af Amer 103 Est GFR (MDRD) Non-Af 85 BUN/Creatinine Ratio 14.1 Glucose 105 Hemoglobin A1c Calcium 8.9 Troponin I < 0.015 Triglycerides Cholesterol LDL Cholesterol VLDL Cholesterol HDL Cholesterol 02/14/19 02/15/19 19:09 05:25 WBC RBC Hgb Hct MCV MCH MCHC RDW Std Deviation RDW Coeff of Terrell Plt Count MPV Immature Gran % (Auto) Neut % (Auto) Lymph % (Auto) Stewart % (Auto) Eos % (Auto) Baso % (Auto) Absolute Neuts (auto) Absolute Lymphs (auto) Nucleated RBC % PT INR APTT Sodium Potassium Chloride Carbon Dioxide Anion Gap BUN Creatinine Estim Creat Clear Calc Est GFR (MDRD) Af Amer Est GFR (MDRD) Non-Af BUN/Creatinine Ratio Glucose Hemoglobin A1c 5.5 Calcium Troponin I Triglycerides 121 Cholesterol 171 LDL Cholesterol 102 VLDL Cholesterol 24 HDL Cholesterol 45 Discharge Activity: May Not Drive Weight Bearing Status: Weight bearing as tolerated Call your doctor if you observe: Fever of 101 or Higher, Inability to urinate, Inability to have a bowel movement, Shortness of breath, Dizziness, Fainting spells, Chest pain, Increased palpitations (irregular heartbeat), Calf discomfort, Uncontrolled pain Home Medications: Medications to take at Discharge Bp Defense 1 tab PO DAILY 02/14/19 Atorvastatin Calcium [Lipitor] 40 mg PO QHS #30 tab 02/15/19 Clopidogrel Bisulfate [Plavix] 75 mg PO DAILY #30 tab 02/15/19 Lisinopril/Hydrochlorothiazide [Lisinopril-Hctz 10-12.5 mg Tab] 1 ea PO DAILY #30 tab 02/15/19 Meclizine HCl [Antivert] 25 mg PO BID PRN PRN #30 tab 02/15/19 Following Prescrptions Were Given to Patient: Meclizine HCl [Antivert] 25 mg PO BID PRN PRN #30 tab PRN Reason: VERITGO Transmission Status: Received by [facility] Atorvastatin Calcium [Lipitor] 40 mg PO QHS #30 tab Transmission Status: Received by [facility] Lisinopril/Hydrochlorothiazide [Lisinopril-Hctz 10-12.5 mg Tab] 1 ea PO DAILY #30 tab Transmission Status: Received by [facility] Clopidogrel Bisulfate [Plavix] 75 mg PO DAILY #30 tab Transmission Status: Received by [facility] Primary Care Physician: Mike Hartley DO [Primary Care Provider] - Please follow up with your Primary Care Physician in: in 2 weeks Please Follow Up With: Mary Pena MD When: in 4 weeks Medical Necessity - Tobacco Use Smoking Status: Never smoker Meaningful Use Info Meaningful Use Diagnoses (Choose all that apply): None applicable Code Visit OBSV E&M: 92039 Observation care discharge
--- NOTE | 2019-02-15 11:46 | PCM.CONS.GEN ---
Problem List (1) TIA (transient ischemic attack) Status: Acute Reason for Consult Date of Consultation: 02/15/19 Reason for Consultation: TIA History of Present Illness: The patient is a 78 year old F with PMH HTN, PVD admitted with speech disturbances and fall. History is obtained from the patient and medical records. Per patient yesterday 02/14/2019 she tripped and fell, did not lose any consciousness, denies any witnessed seizure, and per documentation her she had slurred speech and per patient her speech was slow and not at her baseline, per documentation she also had left facial droop. Per ED documentation on admission her NIHSS was 2, and she was not a TPA candidate as she was out of the window. And due to low NIHSS score. At present per patient her speech is back to baseline, denies any headache dizziness, visual disturbances, speech disturbances, focal motor weakness, sensory loss or neck pain. Per patient she lives with her , denies any frequent falls, uses cane to ambulate, and does drive. Per patient she is allergic to aspirin. MRI brain done on admission did not show any acute stroke. CTA head/neck did not show any hemodynamically significant stenosis or occlusion. [] Past Medical History Past Medical History (Chronic Problems): Chronic Problems PVD (peripheral vascular disease) (Chronic) Hypertension (Chronic) Allergies aspirin [ASA] Adverse Reaction (Verified 02/14/19 19:08) Itching latex Adverse Reaction (Verified 02/14/19 19:08) Itching Home Medications: Ambulatory Orders Medication Instructions Recorded Bp Defense 1 tab PO DAILY 02/14/19 Atorvastatin Calcium [Lipitor] 40 mg PO QHS #30 tab 02/15/19 Clopidogrel Bisulfate [Plavix] 75 mg PO DAILY #30 tab 02/15/19 Lisinopril/Hydrochlorothiazide 1 ea PO DAILY #30 tab 02/15/19 [Lisinopril-Hctz 10-12.5 mg Tab] Meclizine HCl [Antivert] 25 mg PO BID PRN PRN #30 tab 02/15/19 Surgical History: - - Lumps were removed from bilateral breasts; benign Lives: Spouse/ Significant Other Smoking Status: Never smoker Alcohol: None Drugs: None - *Family History Maternal History Items: Cancer - Her mother had cancer in the abdomen or GI tract. Paternal History Items: Heart Disease Review of Systems Constitutional: Reports: - - Complete ROS negative except as documented in HPI Patient Problems: Active and Suspected Problems Stroke (Suspected) TIA (transient ischemic attack) (Acute) - Physical Exam General: Alert HEENT: Normocephalic Neck: Supple Lungs: Normal air movement Cardiovascular: Normal S1, Normal S2 Abdomen: Bowel Sounds Present Extremities: No cyanosis Neurological: - - Conscious, alert, AOA x3, CN II through XII grossly intact, power 5 x 5 both upper and lower extremities, left forearm swelling and hematoma secondary to fall, no sensory loss, no cerebellar signs, gait deferred, reflexes + B/L B/S/T/K/A, NIHSS 0 at present, mRS 0 at baseline Psych/Mental Status: Normal Affect Vital Signs Temp Pulse Resp BP Pulse Ox 98.0 F 91 14 143/81 H 94 02/15/19 10:00 02/15/19 10:41 02/15/19 10:41 02/15/19 10:00 02/15/19 10:41 Oxygen Delivery Method Room Air Weight: 66.1 kg Body Mass Index (BMI) 21.8 Finger Stick Blood Glucose 98 Intake and Output for Last 24 Hours 02/13/19 02/14/19 02/15/19 23:59 23:59 23:59 Intake Total 790 / 790 240 / 240 Balance 790 / 790 240 / 240 Laboratory Tests Past 24 Hrs 02/14/19 02/14/19 02/14/19 19:09 19:09 19:09 WBC 6.9 RBC 5.56 H Hgb 15.8 H Hct 50.1 H MCV 90.1 MCH 28.4 MCHC 31.5 L RDW Std Deviation 41.2 RDW Coeff of Terrell 12.5 Plt Count 241 MPV 9.5 Immature Gran % (Auto) 0.300 Neut % (Auto) 66.0 Lymph % (Auto) 20.8 [place] % (Auto) 10.8 H Eos % (Auto) 1.5 Baso % (Auto) 0.6 Absolute Neuts (auto) 4.6 Absolute Lymphs (auto) 1.43 Nucleated RBC % 0 PT 13.1 INR 1.0 APTT 22.9 L Sodium 139 Potassium 3.7 Chloride 103 Carbon Dioxide 29.0 Anion Gap 7 BUN 10 Creatinine 0.71 Estim Creat Clear Calc 48.28 Est GFR (MDRD) Af Amer 103 Est GFR (MDRD) Non-Af 85 BUN/Creatinine Ratio 14.1 Glucose 105 Hemoglobin A1c Calcium 8.9 Troponin I < 0.015 Triglycerides Cholesterol LDL Cholesterol VLDL Cholesterol HDL Cholesterol 02/14/19 02/15/19 19:09 05:25 WBC RBC Hgb Hct MCV MCH MCHC RDW Std Deviation RDW Coeff of Terrell Plt Count MPV Immature Gran % (Auto) Neut % (Auto) Lymph % (Auto) [place] % (Auto) Eos % (Auto) Baso % (Auto) Absolute Neuts (auto) Absolute Lymphs (auto) Nucleated RBC % PT INR APTT Sodium Potassium Chloride Carbon Dioxide Anion Gap BUN Creatinine Estim Creat Clear Calc Est GFR (MDRD) Af Amer Est GFR (MDRD) Non-Af BUN/Creatinine Ratio Glucose Hemoglobin A1c 5.5 Calcium Troponin I Triglycerides 121 Cholesterol 171 LDL Cholesterol 102 VLDL Cholesterol 24 HDL Cholesterol 45 Assessment/Plan All Active Problems TIA (transient ischemic attack) (Acute) The patient is a 78 year old F with PMH HTN, PVD admitted with speech disturbances and fall. History is obtained from the patient and medical records. Per patient yesterday 02/14/2019 she tripped and fell, did not lose any consciousness, denies any witnessed seizure, and per documentation her she had slurred speech and per patient her speech was slow and not at her baseline, per documentation she also had left facial droop. Per ED documentation on admission her NIHSS was 2, and she was not a TPA candidate as she was out of the window. And due to low NIHSS score. At present per patient her speech is back to baseline, denies any headache dizziness, visual disturbances, speech disturbances, focal motor weakness, sensory loss or neck pain. Per patient she lives with her , denies any frequent falls, uses cane to ambulate, and does drive. Per patient she is allergic to aspirin. MRI brain done on admission did not show any acute stroke. CTA head/neck did not show any hemodynamically significant stenosis or occlusion. Impression Possible TIA Plan ?On Plavix. Bleeding risk discussed in detail. Patient allergic to aspirin ?On Lipitor 40 mg p.o. nightly ?MRI brain?no acute stroke. 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 ?CTA head/neck?no hemodynamically significant stenosis or occlusion ?TTE?EF 65%, normal left atrium size, no PFO ?LDL?102, HbA1c?5.5 ?Goal BP less than 130/80 mmHg, goal HbA1c less than 7% and goal LDL less than 70 ?Stroke risk factors discussed and stroke education provided ?PT/OT/ST ?Fall precautions ?GI/DVT prophylaxis ?Further medical management per hospitalist team ?Follow-up with neurology as outpatient in 4 weeks ?Please call with questions if any ?Thank you for allowing us to participate in patient's care management This note has been generated using [employer] dictation software. It may contain incorrect words, spellings and punctuation's that were not noted in the review of the note prior to signing. Code Visit Inpatient E&M: 44289 Init Hosp L3
--- NOTE | 2019-02-15 11:49 | CASEMGMT ---
SW completed a PHQ-9 with patient as she may have had a TIA. Patient scored a 1 which indicates minimal depression. Patient did have a flat affect. She denied need for any follow up counseling etc. Hyacinth DONALDSON MSW
--- NOTE | 2019-02-15 11:58 | CASEMGMT ---
Therapy is recommending addl therapy and a walker at this time. Pt is unsure whether she wants HHC set up at this time and is aware that if HHC is not set up at discharge then she can f/u with PCP if HHC needed at that time, voices understanding. Pt states that she has walker at home to use. Pt aware to notify CM if she decides to have HHC prior to leaving, voices understanding. SStaten CASPER CM
--- NOTE | 2019-02-15 14:29 | NURSING ---
DC INSTRUCTIONS REVIEWED WITH PT BY THIS RN. THIS RN THEN CALLED PT TO REVIEW DISCHARGE INSTRUCTIONS. PT'S VERBALIZE UNDERSTANDING.
--- NOTE | 2019-02-15 14:58 | CASEMGMT ---
Therapy is recommending HHC for pt at this time discharge. This RN CM to room and explained HHC and CCN multiple times to pt and pt still confusing them at times. Pt is concerned about any cost associated with HHC at this time. Pt is agreeable to both at this time and states would like [facility] at this time. Pt states that her is set up with [facility] currently but she would like [facility] at this time. Pt is not in [facility] so CCN is not an option at this time. Order placed in [facility] for C correction, PT/OT, ST, aide and SW at this time. Pt voices no further questions/concerns/needs at this time. Jeannine at [facility] is aware of pt and states they can take at this time. Per Jeannine, as long as insurance approves [facility], there should be no co-pay at this time. Pt aware at this time, voices understanding. Pt voices no further questions/concerns/needs at this time. SStaten CASPER ETIENNE
--- NOTE | 2019-02-15 18:19 | NURSING ---
this RN has reviewed and agrees with all charting completed by Anmol Staton student nurse
--- NOTE | 2019-02-15 19:44 | CCN.REFER ---
Patient does not qualify for CCN due to address being in [place]. Kayla Jeffers made aware.
== END 2019-02-15 11:20 | disposition home health service (06) ==
LOC: ED 20:54 → PCU 21:08
PROVIDERS: Admitting Provider Hospitalist; Emergency Provider Emergency Medicine; Family Provider Family Medicine; PCP Family Medicine; Referring Provider Hospitalist; Visit Provider Internal Medicine
DX: G45.9 Transient cerebral ischemic attack, unspecified (principal); R47.81 Slurred speech; I10 Essential (primary) hypertension; I73.9 Peripheral vascular disease, unspecified; R29.810 Facial weakness; R29.702 NIHSS score 2; R60.0 Localized edema; S50.12XA Contusion of left forearm, initial encounter; W01.190A Fall on same level from slipping, tripping and stumbling with subsequent striking against furniture, initial encounter; Y93.01 Activity, walking, marching and hiking; Y92.9 Unspecified place or not applicable; R94.31 Abnormal electrocardiogram [ECG] [EKG]; I45.10 Unspecified right bundle-branch block; R53.1 Weakness
CPT/HCPCS: 36415; 70450; 70496; 70498; 70551; 71045; 73090; 80048; 80061; 83036; 84484; 85025; 85610; 85730; 92610; 93005; 93306; 94762; 96360; 96361; 97162; 97166; 99218; 99285; J7030; Q9967; A4216; G0378

== ENCOUNTER 2019-12-30 15:00 | Outpatient (RCR) | payer MEDICARE, SELFPAY ==
[2019-02-15 14:52] VITALS: BMI 21.8
[2019-12-24 12:31] VITALS: BP 156/85; PULSE 75; RESP 18; TEMP 37; BMI 21.8
--- NOTE | 2019-12-24 15:38 | PCM.WC.HP ---
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 Status: Inactive Current Visit: Yes Code(s): L97.922 - Non-pressure chronic ulcer of unspecified part of left lower leg with fat layer exposed Comment: Venous leg ulcer (3) PVD (peripheral vascular disease) Status: Chronic Current Visit: Yes Code(s): I73.9 - Peripheral vascular disease, unspecified (4) Lymphedema Status: Inactive Current Visit: Yes Code(s): I89.0 - Lymphedema, not elsewhere classified History of Present Illness Date of Service: 12/24/19 Chief Complaint: Nonhealing ulcer left lower extremity. History of Wound: This is a 79-year-old white female known to me previously who was recently discharged from the [facility] in November 2018 who presents to the wound center today for nonhealing ulcer on her left lower extrtemity x 2 weeks. She has a past medical history which is significant for hypertension, venous insufficiency, vertigo and peripheral vascular disease. The patient has not been utilizing any intervention for wound care and has been wearing compression socks that are 15-20 mm Hg but has not been elevating her legs as much as she should. She denies any fever, chills, nausea, vomiting, shortness of breath, chest pain or pressure. Past Medical History Past Medical History: Chronic Problems Bilateral lower extremity edema (Chronic) PVD (peripheral vascular disease) (Chronic) Hypertension (Chronic) Surgical History: - - Lumps were removed from bilateral breasts; benign Allergies/Adverse Reactions: Allergies aspirin [ASA] Adverse Reaction (Verified 02/14/19 19:08) Itching latex Adverse Reaction (Verified 02/14/19 19:08) Itching Home Medications: Ambulatory Orders Medication Instructions Recorded Bp Defense 1 tab PO DAILY 02/14/19 Atorvastatin Calcium [Lipitor] 40 mg PO QHS #30 tab 02/15/19 Clopidogrel Bisulfate [Plavix] 75 mg PO DAILY #30 tab 02/15/19 Lisinopril/Hydrochlorothiazide 1 ea PO DAILY #30 tab 02/15/19 [Lisinopril-Hctz 10-12.5 mg Tab] - Family History Maternal Cancer - Her mother had cancer in the abdomen or GI tract. Paternal Heart Disease Lives: Spouse/ Significant Other Smoking Status: Never smoker Tobacco Use: Non-smoker Alcohol: None Drugs: None Review of Systems Constitutional: Denies: Chills, Fever, Weight Change Eyes: Denies: Pain, Vision Change HEENT: Denies: Difficulty Hearing, Difficulty Swallowing, Sinus Congestion Cardiovascular: Denies: Chest Pain, Palpitations Respiratory: Denies: Cough, Shortness of Breath Gastrointestinal: Denies: Diarrhea, Nausea, Vomiting Genitourinary: Denies: Dysuria, Hematuria Endocrine: Denies: Heat/ Cold Intolerance, Polydipsia, Polyuria Hematologic/ Lymphatic: Denies: Easy Bruising, Easy Bleeding - Physical Exam Vital Signs Temp Pulse Resp BP 98.6 F 75 18 156/85 H 12/24/19 12:31 12/24/19 12:31 12/24/19 12:31 12/24/19 12:31 General: Alert, Oriented x3, Cooperative, No apparent distress HEENT: Atraumatic, Normocephalic Oral: Moist Mucosa Extremities: Edema Skin: Ulcer/ Wound Wound Measurements and Assessment WC - Nurse 1 - General Ulcer Measurement Start: 12/24/19 12:20 Freq: Status: Active Protocol: Activity Type Activity Date Activity User E-Sign Co-Sign Detail Recorded Client Recorded Date Recorded By Document 12/24/19 12:21 [id number] 12/24/19 12:26 RB 12/24/19 12:21 Wound Center Nurse 1 [Ulcer Assessment] 5. L medial ankle -Combined with other wound No -Current Size (cm) - Length 1.5 -Current Size (cm) - Width 0.8 -Current Size (cm) - Depth 0.2 -Total Square Cm 1.20 -Photo Taken Yes -Tunneling No -Undermining/Tunneling No -Circular Undermining No -Exudate Amt Small -Exudate Type Serosanguineous -Wound Margin Flat & Intact -Granulation Amt None Present (0 %) -Slough/Fibrin Yes -Necrosis Amt Large (67-100%) -Necrotic Tissue Type Adherent Slough -Structure Exposed N/A -Texture (Kajal-wound Skin Appearance) Scarring -Moisture (Kajal-wound Skin Appearance Assessed ) -Color (Kajal-wound Skin Appearance) Erythema, Hemosiderin Staining -Temperature (Kajal-wound Skin No Abnormality Appearance) (Pt Warm) -Tenderness on Palpation (Kajal-wound No Skin Appearance) -Ulcer Cleansing Wound Cleanser -Foul Odor after Cleansing No -Anesthetic Used 4% Lidocaine Solution [Edema Assessment] -Lower Limb Edema Present Yes -Right Calf (cm) 31.7 -Right Ankle (cm) 22.7 -Left Calf (cm) 31 -Left Ankle (cm) 22.7 WC - Nurse 2 - General Ulcer CM Notes Start: 12/24/19 12:20 Freq: Status: Active Protocol: Activity Type Activity Date Activity User E-Sign Co-Sign Detail Recorded Client Recorded Date Recorded By Document 12/24/19 13:25 DV [id number] 12/24/19 13:30 DV 12/24/19 13:25 Wound Center Nurse 2 [Procedure/Treatment] 5. L medial ankle -Time 13:29 -Correct Patient Yes -Correct Side, Site, Position Yes -Correct Procedure Yes -Procedure Performed Yes -Type of Procedure Debridement -Clinical Debridement Selective -Post Debridement Size (cm) - Length 2.0 -Post Debridement Size (cm) - Width 1.0 -Post Debridement Size (cm) - Depth 0.2 -Total Square Cm 2.00 -Wound/Ulcer Outcome Not Healed -Ulcer Cleansing Rinsed/ Irrigated with Saline -Foul Odor after Cleansing No -Bioengineered Tissue No -Bleeding Controlled with Pressure -Offloading No -Treatment Response Procedure Tolerated Well [See Physician Procedure note for Specifics] Pain Scale: 0-10 Numeric [Pain] -Is Patient Pain Free? Yes Psych/Mental Status: Normal Affect, Appropriate Debridement Note Post-Debridement Measurements/Treatment WC - Nurse 2 - General Ulcer CM Notes Start: 12/24/19 12:20 Freq: Status: Active Protocol: Activity Type Activity Date Activity User E-Sign Co-Sign Detail Recorded Client Recorded Date Recorded By Document 12/24/19 13:25 DV [id number] 12/24/19 13:30 DV 12/24/19 13:25 Wound Center Nurse 2 5. L medial ankle -Time 13:29 -Correct Patient Yes -Correct Side, Site, Position Yes -Correct Procedure Yes -Procedure Performed Yes -Type of Procedure Debridement -Clinical Debridement Selective -Post Debridement Size (cm) - Length 2.0 -Post Debridement Size (cm) - Width 1.0 -Post Debridement Size (cm) - Depth 0.2 -Total Square Cm 2.00 -Wound/Ulcer Outcome Not Healed -Ulcer Cleansing Rinsed/ Irrigated with Saline -Foul Odor after Cleansing No -Bioengineered Tissue No -Bleeding Controlled with Pressure -Offloading No -Treatment Response Procedure Tolerated Well Pain Scale: 0-10 Numeric Is Patient Pain Free? Yes Wound debrided: left medial ankle Laterality: Left Type of Debridement: Excisional debridement Anesthesia Used: 4% Lidocaine Solution Depth: Down to and including healthy tissue, in the subcutaneous layer Percentage of wound debrided: 100 Instrument Used: 3mm curette Tissue Removed: yellow slough, devitalized tissue Severity: Fat Layer Exposed Amount of bleeding with debridement: Mild Bleeding Controlled with: Compression and gauze Patient tolerated procedure well Assessment/Plan Active Problems Bilateral lower extremity edema (Chronic) PVD (peripheral vascular disease) (Chronic) Assessment: Nonhealing venous leg ulcer to left lower extremity Plan: The patient was seen and examined at the wound center today. Will use 3M compression to her LE b/l and apply Aquacel extra to the open wound of her left medial ankle. Discussed importance of leg elevation. Patient educated on the importance of diet on wound healing and instructed to increase protein and vitamin C intake. Patient verbalized understanding. She will follow up in 1 week with Subhash Lutz CNP. This note was generated with [employer] dictation software. It may contain incorrect words, spelling, and punctuation that were not noted in checking the note before signing.
[2019-12-30 15:08] VITALS: BP 129/71; PULSE 87; RESP 18; TEMP 37.5; BMI 21.8
--- NOTE | 2019-12-30 21:08 | PCM.WC.PN ---
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 Status: Inactive Current Visit: Yes Code(s): L97.922 - Non-pressure chronic ulcer of unspecified part of left lower leg with fat layer exposed Comment: Venous leg ulcer (2) Bilateral lower extremity edema Status: Chronic Current Visit: Yes Code(s): R60.0 - Localized edema (3) PVD (peripheral vascular disease) Status: Chronic Current Visit: Yes Code(s): I73.9 - Peripheral vascular disease, unspecified (4) Lymphedema Status: Inactive Current Visit: Yes Code(s): I89.0 - Lymphedema, not elsewhere classified (5) Hypertension Status: Chronic Current Visit: No Code(s): I10 - Essential (primary) hypertension Type of Wound Date of Service: 12/30/19 Chief Complaint: Nonhealing ulcer left lower extremity. History of Wound: This is a 79-year-old white female known to me previously who was recently discharged from the [facility] in November 2018 who presents to the wound center today for nonhealing ulcer on her left lower extrtemity x 2 weeks. She has a past medical history which is significant for hypertension, venous insufficiency, vertigo and peripheral vascular disease. The patient has not been utilizing any intervention for wound care and has been wearing compression socks that are 15-20 mm Hg but has not been elevating her legs as much as she should. She denies any fever, chills, nausea, vomiting, shortness of breath, chest pain or pressure. Progress of Wound: Courtesy visit for Dr. Martel, wound is stable no new concerns at this time, patient would like to have wound cultures done - Physical Exam Vital Signs Temp Pulse Resp BP 99.5 F H 87 18 129/71 H 12/30/19 15:08 12/30/19 15:08 12/30/19 15:08 12/30/19 15:08 General: Alert, Oriented x3, Cooperative, No apparent distress HEENT: Atraumatic Oral: Moist Mucosa Lungs: Clear to auscultation Cardiovascular: Regular rate Abdomen: Soft, Non Tender Extremities: No clubbing, No cyanosis, No edema Skin: Ulcer/ Wound - See nursing documentation, left ankle nonhealing ulcer with adherent slough, no signs of obvious infection at this time Wound Measurements and Assessment WC - Nurse 1 - General Ulcer Measurement Start: 12/24/19 12:20 Freq: Status: Active Protocol: Activity Type Activity Date Activity User E-Sign Co-Sign Detail Recorded Client Recorded Date Recorded By Document 12/30/19 15:08 RB [id number] 12/30/19 15:21 RB 12/30/19 15:08 Wound Center Nurse 1 [Ulcer Assessment] 5. L medial ankle -Combined with other wound No -Current Size (cm) - Length 0.9 -Current Size (cm) - Width 0.6 -Current Size (cm) - Depth 0.2 -Total Square Cm 0.54 -Tunneling No -Undermining/Tunneling No -Circular Undermining No -Exudate Amt Small -Exudate Type Serosanguineous -Wound Margin Flat & Intact -Granulation Amt Small (1-33%) -Granulation Quality Register -Necrosis Amt Medium (34-66%) -Necrotic Tissue Type Adherent Slough -Structure Exposed N/A -Texture (Kajal-wound Skin Appearance) Assessed, Excoriation -Moisture (Kajal-wound Skin Appearance Assessed ) -Color (Kajal-wound Skin Appearance) Assessed, Hemosiderin Staining -Temperature (Kajal-wound Skin No Abnormality Appearance) (Pt Warm) -Tenderness on Palpation (Kajal-wound No Skin Appearance) -Ulcer Cleansing Wound Cleanser -Foul Odor after Cleansing No -Anesthetic Used 4% Lidocaine Solution [Edema Assessment] -Lower Limb Edema Present Yes -Right Calf (cm) 30.5 -Right Ankle (cm) 20.5 -Left Calf (cm) 29.5 -Left Ankle (cm) 22 WC - Nurse 2 - General Ulcer CM Notes Start: 12/24/19 12:20 Freq: Status: Active Protocol: Activity Type Activity Date Activity User E-Sign Co-Sign Detail Recorded Client Recorded Date Recorded By Document 12/30/19 16:25 PL [id number] 12/30/19 16:26 PL 12/30/19 16:25 Wound Center Nurse 2 [Procedure/Treatment] 5. L medial ankle -Time 15:38 -Correct Patient Yes -Correct Side, Site, Position Yes -Correct Procedure Yes -Procedure Performed Yes -Type of Procedure Debridement -Clinical Debridement Subcutaneous -Post Debridement Size (cm) - Length 7 -Post Debridement Size (cm) - Width 1.2 -Post Debridement Size (cm) - Depth 0.1 -Total Square (cm) 8.4 -Wound/Ulcer Outcome Not Healed -Ulcer Cleansing Rinsed/ Irrigated with Saline -Foul Odor after Cleansing No -Bleeding Controlled with Pressure -Treatment Response Procedure Tolerated Well [See Physician Procedure note for Specifics] Pain Scale: 0-10 Numeric [Pain] -Is Patient Pain Free? Yes Neurological: Neuro grossly intact Psych/Mental Status: Normal Affect, Appropriate Debridement Note Post-Debridement Measurements/Treatment WC - Nurse 2 - General Ulcer CM Notes Start: 12/24/19 12:20 Freq: Status: Active Protocol: Activity Type Activity Date Activity User E-Sign Co-Sign Detail Recorded Client Recorded Date Recorded By Document 12/24/19 13:25 DV [id number] 12/24/19 13:30 DV Document 12/30/19 16:25 PL [id number] 12/30/19 16:26 PL 12/24/19 12/30/19 13:25 16:25 Wound Center Nurse 2 5. L medial ankle -Time 13:29 15:38 -Correct Patient Yes Yes -Correct Side, Site, Position Yes Yes -Correct Procedure Yes Yes -Procedure Performed Yes Yes -Type of Procedure Debridement Debridement -Clinical Debridement Selective Subcutaneous -Post Debridement Size (cm) - Length 2.0 7 -Post Debridement Size (cm) - Width 1.0 1.2 -Post Debridement Size (cm) - Depth 0.2 0.1 -Total Square (cm) 2.00 8.4 -Wound/Ulcer Outcome Not Healed Not Healed -Ulcer Cleansing Rinsed/ Rinsed/ Irrigated with Irrigated with Saline Saline -Foul Odor after Cleansing No No -Bioengineered Tissue No -Bleeding Controlled with Pressure Pressure -Offloading No -Treatment Response Procedure Procedure Tolerated Well Tolerated Well Pain Scale: 0-10 Numeric Is Patient Pain Free? Yes Yes Wound debrided: Left lower extremity ulceration Type of Debridement: Excisional debridement Anesthesia Used: 5% Lidocaine Gel Depth: in the subcutaneous layer Percentage of wound debrided: 100 Instrument Used: 5mm curette Tissue Removed: Slough and devitalized tissue Severity: Fat Layer Exposed Amount of bleeding with debridement: Mild Bleeding Controlled with: Pressure Patient tolerated procedure well Assessment/Plan Active Problems Bilateral lower extremity edema (Chronic) PVD (peripheral vascular disease) (Chronic) Assessment: Nonhealing venous leg ulcer to left lower extremity Plan: Courtesy visit?The patient was seen and examined at the wound center today. Will use 3M compression to her LE b/l and apply Silver cell to the open wound of her left medial ankle.Wound cultures collected. Discussed importance of leg elevation. Patient educated on the importance of diet on wound healing and instructed to increase protein and vitamin C intake. Patient verbalized understanding. She will follow up in 1 week At wound healing center or sooner if needed. This note was generated with [employer] dictation software. It may contain incorrect words, spelling, and punctuation that were not noted in checking the note before signing. [id number]: [id number] Kaley subq tissue 20 sq cm/<
[2020-01-07 10:38] VITALS: BP 150/79; PULSE 77; RESP 16; TEMP 36.3; BMI 21.8
--- NOTE | 2020-01-07 14:03 | PCM.WC.PN ---
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 Status: Chronic Code(s): L97.922 - Non-pressure chronic ulcer of unspecified part of left lower leg with fat layer exposed Comment: Venous leg ulcer (3) PVD (peripheral vascular disease) Status: Chronic Code(s): I73.9 - Peripheral vascular disease, unspecified (4) Lymphedema Status: Chronic Code(s): I89.0 - Lymphedema, not elsewhere classified Type of Wound Date of Service: 01/07/20 Chief Complaint: Nonhealing ulcer left lower extremity History of Wound: This is a 79-year-old white female known to me previously who was recently discharged from the [facility] in November 2018 who presents to the wound center today for nonhealing ulcer on her left lower extrtemity x 2 weeks. She has a past medical history which is significant for hypertension, venous insufficiency, vertigo and peripheral vascular disease. The patient has not been utilizing any intervention for wound care and has been wearing compression socks that are 15-20 mm Hg but has not been elevating her legs as much as she should. She denies any fever, chills, nausea, vomiting, shortness of breath, chest pain or pressure. Progress of Wound: Ely is here for follow up of wound of left medial ankle. She had a wound culture done last week and it was positive for anaerobic bacteria as well as staph aureus. She is tolerating 3M compression dressings. She is not on anything for her positive cultures. She still has pain in her left leg at the ulcer site. She denies any increased drainage, fever, chills. - Physical Exam Vital Signs Temp Pulse Resp BP 97.3 F L 77 16 150/79 H 01/07/20 10:38 01/07/20 10:38 01/07/20 10:38 01/07/20 10:38 General: Alert, Oriented x3, Cooperative, No apparent distress HEENT: Atraumatic, Normocephalic Oral: Moist Mucosa Abdomen: Soft, Non Tender Extremities: Edema Skin: Ulcer/ Wound Wound Measurements and Assessment WC - Nurse 1 - General Ulcer Measurement Start: 12/24/19 12:20 Freq: Status: Active Protocol: Activity Type Activity Date Activity User E-Sign Co-Sign Detail Recorded Client Recorded Date Recorded By Document 01/07/20 10:38 [facility] [id number] 01/07/20 10:49 [facility] 01/07/20 10:38 Wound Center Nurse 1 [Ulcer Assessment] 5. L medial ankle -Combined with other wound No -Current Size (cm) - Length 0.8 -Current Size (cm) - Width 1 -Current Size (cm) - Depth 0.2 -Total Square Cm 0.8 -Photo Taken No -Epithelialization None Present -Tunneling No -Undermining/Tunneling No -Circular Undermining No -Exudate Amt Small -Exudate Type Serosanguineous -Wound Margin Distinct, Outline Attached -Granulation Amt None Present (0 %) -Slough/Fibrin Yes -Necrosis Amt Large (67-100%) -Necrotic Tissue Type Adherent Slough -Texture (Kajal-wound Skin Appearance) Assessed, Excoriation, Scarring -Moisture (Kajal-wound Skin Appearance Assessed, ) Maceration,Dry/ Scaly -Color (Kajal-wound Skin Appearance) Assessed, Erythema,Palor -Temperature (Kajal-wound Skin No Abnormality Appearance) (Pt Warm) -Tenderness on Palpation (Kajal-wound Yes Skin Appearance) -Ulcer Cleansing SOAPY WATER -Foul Odor after Cleansing No -Anesthetic Used 4% Lidocaine Solution [Edema Assessment] -Lower Limb Edema Present Yes -Right Calf (cm) 30.5 -Right Ankle (cm) 20.5 -Left Calf (cm) 30.5 -Left Ankle (cm) 21.6 WC - Nurse 2 - General Ulcer CM Notes Start: 12/24/19 12:20 Freq: Status: Active Protocol: Activity Type Activity Date Activity User E-Sign Co-Sign Detail Recorded Client Recorded Date Recorded By Document 01/07/20 10:54 [id number] 01/07/20 11:02 MW 01/07/20 10:54 Wound Center Nurse 2 [Procedure/Treatment] 5. L medial ankle -Time 10:58 -Correct Patient Yes -Correct Side, Site, Position Yes -Correct Procedure Yes -Procedure Performed Yes -Type of Procedure Debridement -Clinical Debridement Subcutaneous -Post Debridement Size (cm) - Length 0.8 -Post Debridement Size (cm) - Width 0.5 -Post Debridement Size (cm) - Depth 0.2 -Total Square (cm) 0.40 -Wound/Ulcer Outcome Not Healed -Ulcer Cleansing Rinsed/ Irrigated with Saline -Foul Odor after Cleansing No -Bioengineered Tissue No -Bleeding Controlled with Pressure -Offloading No -Treatment Response Procedure Tolerated Well [See Physician Procedure note for Specifics] Pain Scale: 0-10 Numeric [Pain] -Is Patient Pain Free? Yes Psych/Mental Status: Normal Affect, Appropriate Debridement Note Post-Debridement Measurements/Treatment WC - Nurse 2 - General Ulcer CM Notes Start: 12/24/19 12:20 Freq: Status: Active Protocol: Activity Type Activity Date Activity User E-Sign Co-Sign Detail Recorded Client Recorded Date Recorded By Document 12/24/19 13:25 DV [id number] 12/24/19 13:30 DV Document 12/30/19 16:25 PL [id number] 12/30/19 16:26 PL Document 01/07/20 10:54 MW [id number] 01/07/20 11:02 MW 12/24/19 12/30/19 01/07/20 13:25 16:25 10:54 Wound Center Nurse 2 5. L medial ankle -Time 13:29 15:38 10:58 -Correct Patient Yes Yes Yes -Correct Side, Site, Position Yes Yes Yes -Correct Procedure Yes Yes Yes -Procedure Performed Yes Yes Yes -Type of Procedure Debridement Debridement Debridement -Clinical Debridement Selective Subcutaneous Subcutaneous -Post Debridement Size (cm) - Length 2.0 7 0.8 -Post Debridement Size (cm) - Width 1.0 1.2 0.5 -Post Debridement Size (cm) - Depth 0.2 0.1 0.2 -Total Square (cm) 2.00 8.4 0.40 -Wound/Ulcer Outcome Not Healed Not Healed Not Healed -Ulcer Cleansing Rinsed/ Rinsed/ Rinsed/ Irrigated with Irrigated with Irrigated with Saline Saline Saline -Foul Odor after Cleansing No No No -Bioengineered Tissue No No -Bleeding Controlled with Pressure Pressure Pressure -Offloading No No -Treatment Response Procedure Procedure Procedure Tolerated Well Tolerated Well Tolerated Well Pain Scale: 0-10 Numeric Is Patient Pain Free? Yes Yes Yes Wound debrided: left medial ankle Laterality: Left Type of Debridement: Excisional debridement Anesthesia Used: 4% Lidocaine Solution Depth: Down to and including healthy tissue, in the subcutaneous layer Percentage of wound debrided: 100 Instrument Used: 3mm curette Tissue Removed: Yellow slough, devitalized tissue Severity: Fat Layer Exposed Amount of bleeding with debridement: Mild Bleeding Controlled with: Compression and gauze Patient tolerated procedure well Assessment/Plan Assessment: Nonhealing venous leg ulcer to left lower extremity Plan: The patient was seen and examined at the wound center today. Will continue to use 3M compression to her LE b/l and apply Silver cell to the open wound of her left medial ankle. She will start on Augmentin to treat positive wound cultures. Discussed importance of leg elevation. Patient educated on the importance of diet on wound healing and instructed to increase protein and vitamin C intake. Patient verbalized understanding. She will follow up in 1 week at wound healing center or sooner if needed.
== END 2020-01-07 23:59 ==
LOC: WC 15:00
PROVIDERS: PCP Student in an Organized Health Care Education/Training Program; Referring Provider Student in an Organized Health Care Education/Training Program; Visit Provider Family Medicine
DX: I73.9 Peripheral vascular disease, unspecified (principal); R60.0 Localized edema; I89.0 Lymphedema, not elsewhere classified; I10 Essential (primary) hypertension; L97.322 Non-pressure chronic ulcer of left ankle with fat layer exposed
CPT/HCPCS: 11042; 29581; 87070; 87075; 87077; 87186; 87205; 97597; 99213; G0463

== ENCOUNTER 2020-01-21 10:15 | Outpatient (RCR) | payer MEDICARE, SELFPAY ==
[2020-01-08 00:41] VITALS: BP 150/79; PULSE 77; RESP 16; TEMP 36.3
[2020-01-14 10:48] VITALS: BP 139/79; PULSE 74; RESP 16; TEMP 37.5; BMI 21.8
[2020-01-21 10:10] VITALS: BP 143/95; PULSE 73; RESP 16; TEMP 37.6; BMI 21.8
--- NOTE | 2020-01-21 19:44 | PN.PCM_ITS ---
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 Status: Chronic Current Visit: Yes Code(s): L97.922 - Non-pressure chronic ulcer of unspecified part of left lower leg with fat layer exposed Comment: Venous leg ulcer (3) Cellulitis of left lower extremity Status: Resolved Current Visit: Yes Code(s): L03.116 - Cellulitis of left lower limb Type of Wound Date of Service: 01/21/20 Chief Complaint: Nonhealing ulcer left lower extremity History of Wound: This is a 79-year-old white female known to me previously who was recently discharged from the [facility] in November 2018 who presents to the wound center today for nonhealing ulcer on her left lower extrtemity x 2 weeks. She has a past medical history which is significant for hypertension, venous insufficiency, vertigo and peripheral vascular disease. The patient has not been utilizing any intervention for wound care and has been wearing compression socks that are 15-20 mm Hg but has not been elevating her legs as much as she should. She denies any fever, chills, nausea, vomiting, shortness of breath, chest pain or pressure. Progress of Wound: Ely is here for follow up of wound of left medial ankle. She has finished Augmentin for treatment of positive wound cultures. She is healed today. She denies any increased drainage, fever, chills. - Physical Exam Vital Signs Temp Pulse Resp BP 99.6 F H 73 16 143/95 H 01/21/20 10:10 01/21/20 10:10 01/21/20 10:10 01/21/20 10:10 General: Alert, Oriented x3, Cooperative, No apparent distress HEENT: Atraumatic, Normocephalic Oral: Moist Mucosa Neck: Supple Extremities: Edema Skin: Ulcer/ Wound Wound Measurements and Assessment WC - Nurse 1 - General Ulcer Measurement Start: 01/14/20 10:48 Freq: Status: Active Protocol: Activity Type Activity Date Activity User E-Sign Co-Sign Detail Recorded Client Recorded Date Recorded By Document 01/21/20 10:10 [facility] [id number] 01/21/20 10:19 [facility] 01/21/20 10:10 Wound Center Nurse 1 [Ulcer Assessment] 5. L medial ankle -Combined with other wound No -Current Size (cm) - Length 0.6 -Current Size (cm) - Width 0.5 -Current Size (cm) - Depth 0.1 -Total Square Cm 0.30 -Photo Taken No -Epithelialization None Present -Tunneling No -Undermining/Tunneling No -Circular Undermining No -Exudate Amt Small -Exudate Type Serous -Wound Margin Flat & Intact -Granulation Amt None Present (0 %) -Slough/Fibrin Yes -Necrosis Amt Large (67-100%) -Necrotic Tissue Type Adherent Slough -Texture (Kajal-wound Skin Appearance) Assessed, Scarring -Moisture (Kajal-wound Skin Appearance Assessed,Dry/ ) Scaly -Color (Kajal-wound Skin Appearance) Assessed, Hemosiderin Staining -Temperature (Kajal-wound Skin No Abnormality Appearance) (Pt Warm) -Tenderness on Palpation (Kajal-wound Yes Skin Appearance) -Ulcer Cleansing soapy water -Foul Odor after Cleansing No -Anesthetic Used 4% Lidocaine Solution [Edema Assessment] -Lower Limb Edema Present Yes -Right Calf (cm) 30.1 -Right Ankle (cm) 20.4 -Left Calf (cm) 29.1 -Left Ankle (cm) 20.4 WC - Nurse 2 - General Ulcer CM Notes Start: 01/14/20 10:48 Freq: Status: Active Protocol: Activity Type Activity Date Activity User E-Sign Co-Sign Detail Recorded Client Recorded Date Recorded By Document 01/21/20 11:21 MW [id number] 01/21/20 11:24 MW 01/21/20 11:21 Wound Center Nurse 2 [Procedure/Treatment] 5. L medial ankle -Time 11:23 -Correct Patient Yes -Correct Side, Site, Position Yes -Correct Procedure Yes -Procedure Performed No -Post Debridement Size (cm) - Length 0 -Post Debridement Size (cm) - Width 0 -Post Debridement Size (cm) - Depth 0 -Total Square (cm) 0 -Wound/Ulcer Outcome Healed- Epithelialized [See Physician Procedure note for Specifics] Pain Scale: 0-10 Numeric [Pain] -Is Patient Pain Free? Yes Psych/Mental Status: Normal Affect, Appropriate Debridement Note Post-Debridement Measurements/Treatment WC - Nurse 2 - General Ulcer CM Notes Start: 01/14/20 10:48 Freq: Status: Active Protocol: Activity Type Activity Date Activity User E-Sign Co-Sign Detail Recorded Client Recorded Date Recorded By Document 01/21/20 11:21 MW [id number] 01/21/20 11:24 MW 01/21/20 11:21 Wound Center Nurse 2 5. L medial ankle -Time 11:23 -Correct Patient Yes -Correct Side, Site, Position Yes -Correct Procedure Yes -Procedure Performed No -Post Debridement Size (cm) - Length 0 -Post Debridement Size (cm) - Width 0 -Post Debridement Size (cm) - Depth 0 -Total Square (cm) 0 -Wound/Ulcer Outcome Healed- Epithelialized Pain Scale: 0-10 Numeric Is Patient Pain Free? 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 Will have her use compression stockings and apply TAC cream to her leg for scaling and itching of venous stasis dermatitis. Discussed importance of leg elevation. Patient educated on the importance of diet on wound healing and instructed to increase protein and vitamin C intake. Patient verbalized understanding. She will follow up as needed.
== END 2020-02-07 23:59 ==
LOC: WC 10:15
PROVIDERS: PCP Student in an Organized Health Care Education/Training Program; Referring Provider Student in an Organized Health Care Education/Training Program; Visit Provider Family Medicine
DX: Z09 Encounter for follow-up examination after completed treatment for conditions other than malignant neoplasm (principal); I10 Essential (primary) hypertension; I87.2 Venous insufficiency (chronic) (peripheral); I73.9 Peripheral vascular disease, unspecified; Z79.02 Long term (current) use of antithrombotics/antiplatelets; Z79.899 Other long term (current) drug therapy; R60.0 Localized edema
CPT/HCPCS: 29581; 99212; G0463

== ENCOUNTER → 2020-12-04 | Outpatient (REF) | payer MEDICARE, SELFPAY ==
[2020-12-04 10:16] LABS: Hematocrit 45.7 % (37-47); Hemoglobin 14.1 g/dL (12.0-15.0); Mean Corp Hgb Conc 30.9 g/dL (32-36); Mean Corpuscular Volume 90.9 fL (81-99); Mean Platelet Vol. 10.2 fl (6.2-12.0); Platelet Count 235 K/mm3 (150-450); RBC Distribution Width CV 13.4 % (11.6-14.6); Red Blood Count 5.03 M/mm3 (4.2-5.4); White Blood Count 5.8 K/mm3 (4.4-11.0)
[2020-12-04 10:32] LABS: AST(SGOT) 25 U/L (15-37); Alanine Aminotransfer ALT/SGPT 26 U/L (13-56); Albumin, Serum 3.2 g/dL (3.2-5.0); Alkaline Phosphatase 65 U/L (45-117); Anion Gap 7 (5-15); BUN 12 mg/dL (7-18); BUN/Creat Ratio 19.5 RATIO (10-20); Calcium,Total 8.6 mg/dL (8.5-10.1); Chloride 104 mmol/L (98-107); Cholesterol 210 mg/dL (200); Creatinine, Serum 0.62 mg/dL (0.55-1.02); EST Glomerular Filtration Rate 100 mL/min (>60); Est Glom Filt Rate - Afr Amer 121 mL/min (>60); Globulin 3.1 g/dL (2.2-4.2); Glucose 77 mg/dL (74-106); High Density Lipoprotein 60 mg/dL; Protein, Total 6.3 g/dL (6.4-8.2); Sodium Level 143 mmol/L (136-145); Triglycerides 72 mg/dL; Very Low Density Lipoprotein 14 mg/dL (5-40)
[2020-12-04 14:22] LABS: Vitamin B12 722 pg/mL (211-911); Vitamin D,25 Hydroxy 30.5 ng/mL
== END | disposition home or self-care (01) ==
LOC: OLS.SWAL 05:00
PROVIDERS: PCP Student in an Organized Health Care Education/Training Program; Referring Provider Internal Medicine; Visit Provider Internal Medicine
DX: I10 Essential (primary) hypertension (principal); I70.238 Atherosclerosis of native arteries of right leg with ulceration of other part of lower leg; E55.9 Vitamin D deficiency, unspecified
CPT/HCPCS: 36415; 80053; 80061; 82306; 82607; 84443; 85027

== ENCOUNTER → 2021-03-02 14:00 | Outpatient (REF) | payer MEDICARE, MEDICAID, SELFPAY ==
[2021-03-02 14:54] LABS: Absolute Lymphocyte Count 1.24 X10^3/uL (0.83-4.51); Absolute Neutrophil Count 5.3 X10^3/uL (2.0-7.7); Basophil# 0.04 X10^3/uL; Basophil% 0.5 % (0-1); Eosinophil# 0.14 X10^3/uL; Eosinophils% 1.8 % (0-5); Hematocrit 43.3 % (37-47); Hemoglobin 13.7 g/dL (12.0-15.0); Lymphocyte # 1.24 X10^3/ul (0.83-4.51); Lymphocyte % 15.9 % (19-41); Mean Corp Hgb Conc 31.6 g/dL (32-36); Mean Corpuscular Hgb 28.7 pg (27.0-32.0); Mean Corpuscular Volume 90.6 fL (81-99); Mean Platelet Vol. 9.8 fl (6.2-12.0); Monocyte# 1.03 X10^3/uL; Monocyte% 13.2 % (0-10); NRBC Flagged by Analyzer 0 % (0-5); Neutrophil # 5.31 X10^3/uL (2.7-7.7); Neutrophil % 68.2 % (47-70); Platelet Count 249 K/mm3 (150-450); RBC Distribution Width CV 13.2 % (11.6-14.6); RBC Distribution Width SD 43.9 fl (35.1-43.9); Red Blood Count 4.78 M/mm3 (4.2-5.4); White Blood Count 7.8 K/mm3 (4.4-11.0)
[2021-03-02 15:05] LABS: Anion Gap 1 (5-15); BUN 7 mg/dL (7-18); BUN/Creat Ratio 12.8 RATIO (10-20); Calcium,Total 9.1 mg/dL (8.5-10.1); Chloride 103 mmol/L (98-107); Creatinine, Serum 0.55 mg/dL (0.55-1.02); EST Glomerular Filtration Rate 114 mL/min (>60); Est Glom Filt Rate - Afr Amer 138 mL/min (>60); Glucose 95 mg/dL (74-106); Magnesium 2.5 mg/dL (1.6-2.6); Potassium 3.8 mmol/L (3.5-5.1); Sodium Level 137 mmol/L (136-145)
== END ==
LOC: OLS.SWAL 14:00
PROVIDERS: PCP Student in an Organized Health Care Education/Training Program; Visit Provider Internal Medicine
DX: R42 Dizziness and giddiness (principal)
CPT/HCPCS: 36415; 80048; 83735; 85025

== ENCOUNTER → 2021-03-13 04:00 | Outpatient (REF) | payer MEDICARE, MEDICAID, SELFPAY ==
[2021-03-13 08:02] LABS: Vitamin B12 1226 pg/mL (211-911); Vitamin D,25 Hydroxy 50.7 ng/mL
== END ==
LOC: OLS.SWAL 04:00
PROVIDERS: PCP Student in an Organized Health Care Education/Training Program; Visit Provider Internal Medicine
DX: H81.10 Benign paroxysmal vertigo, unspecified ear (principal); E55.9 Vitamin D deficiency, unspecified
CPT/HCPCS: 36415; 82306; 82607

== ENCOUNTER 2021-04-25 09:30 | Outpatient (RCR) | payer MEDICARE, MEDICAID, SELFPAY ==
[2021-04-11 10:01] VITALS: BP 179/88; PULSE 86; TEMP 36.1
--- NOTE | 2021-04-11 12:03 | HP.PCM_ITS ---
History of Present Illness Date of Service: 04/11/21 Chief Complaint: Nonhealing ulcer left lower extremity History of Wound: This is a 79-year-old white female known to me previously who was recently discharged from the [facility] in November 2018 who presents to the wound center today for nonhealing ulcer on her left lower extrtemity x 2 weeks. She has a past medical history which is significant for hypertension, venous insufficiency, vertigo and peripheral vascular disease. The patient has not been utilizing any intervention for wound care and has been wearing compression socks that are 15-20 mm Hg but has not been elevating her legs as much as she should. She denies any fever, chills, nausea, vomiting, shortness of breath, chest pain or pressure. Patient states she fell in her bathroom on [address] on and since then has had this open wound that will not heal. She is very touchy about having it debrided and touched. PFSH Home Medications Bp Defense 1 tab PO DAILY 02/14/19 [History Last Taken Unknown] atorvastatin 40 mg PO QHS #30 tab 02/15/19 [Rx Last Taken Unknown] clopidogrel 75 mg PO DAILY #30 tab 02/15/19 [Rx Last Taken Unknown] lisinopril-hydrochlorothiazide 1 ea PO DAILY #30 tab 02/15/19 [Rx Last Taken Unknown] Allergy/AdvReac Type Severity Reaction Status Date / Time aspirin [ASA] AdvReac Itching Verified 02/14/19 19:08 latex AdvReac Itching Verified 02/14/19 19:08 Social History Smoking Status: Never smoker ROS Integumentary Integumentary: Reports erythema, non-healing lesions, wounds and other Details: Complaining of skin pain and swelling around wound nonhealing trauma Vital Signs Vital Signs Vital Signs: 04/11/21 10:01 Temperature 97.0 F L Temperature Source Temporal Pulse Rate 86 Blood Pressure 179/88 H Blood Pressure Mean 118 Blood Pressure Source Monitor Blood Pressure Position Sitting Blood Pressure Location Right Arm Physical Exam Const oriented x3 General Appearance: cooperative Exam Limitations: no limitations HEENT normocephalic Head and Scalp: normal to inspection Face and Sinus: normal facial exam Nose: external nose normal General Ear: hearing grossly impaired External Ear: external ears normal Mouth: oral and palatal mucosa normal Eyes PERRL General Eye: normal appearance of both eyes Neck full ROM General: normal visual inspection Resp normal respiratory effort Effort and Inspection: able to speak in complete sentences Auscultation: clear to auscultation bilaterally Cardio regular rate and regular rhythm Palpation: normal PMI Rate: regular rate Rhythm: regular rhythm GI Auscultation: normoactive bowel sounds Palpation: soft and no hepatosplenomegaly external exam normal Extremity normal to inspection Extremity Narrative: Wound on her right lower extremity General Extremity: normal exam except as noted and edema Skin Wounds: wounds noted Wound Narrative: Open superficial wound with slough and some scabbing and in areas. Erythema around wound. Very tender to palpate area Neuro oriented x3 Psych Appearance: grossly normal Speech: normal speech Thought Content: normal thought content Judgement: judgement good Debridement Note Debridement Note Wound debrided: Right lower extremity traumatic wound nonhealing Laterality: Right Type of Debridement: Excisional debridement Anesthesia Used: 5% Lidocaine Gel and Cetacaine Depth: Down to and including healthy tissue and in the subcutaneous layer Percentage of wound debrided: 100 Instrument Used: 5mm curette Tissue Removed: Slough and fibrin and devitalized tissue Severity: Limited To Skin Breakdown Amount of bleeding with debridement: Mild Bleeding Controlled with: Compression and gauze Patient tolerated procedure: Patient tolerated procedure well Post-Debridement Measurements and Additional Note: Post-Debridement Measurements/Treatment JACK - Nurse 1 - General Ulcer Assessment Start: 04/11/21 09:59 Freq: Status: Active Protocol: LUZ Activity Type Activity Date Activity User E-Sign Co-Sign Detail Recorded Client Recorded Date Recorded By Document 04/11/21 10:01 LADAN [id number] 04/11/21 10:14 LADAN 04/11/21 10:01 - Today's Visit Information Type of service Initial Visit Arrival Mode Ambulatory, Walker Patient Identification Verified (Name & Yes ) Vital Signs Temperature (97.8 F-99.1 F) 97.0 F L Temperature Source Temporal Pulse Rate (60-100) 86 Pulse Location Monitor Blood Pressure (90/60-120/80) 179/88 H Blood Pressure Mean 118 Source Monitor Position Sitting Blood Pressure Location Right Arm History Since Last Visit- (Skip if this is Patient's initial visit) Have you changed medications since your No last visit? Any new allergies or adverse reactions No Had a fall/change in ADL's that may No increase risk of falls Signs or symptoms of abuse and/or No neglect since last visit Have you been in the hospital since your No last visit? Has dressing in place as prescribed Yes Has compression in place as prescribed N/A Has offloadiing in place as prescribed N/A Experienced any changes in pain level or No management Left Footwear Regular Shoe Right Footwear Regular Shoe Pain Scale: 0-10 Numeric Is Patient Pain Free? Yes - Nurse 1 - General Ulcer Measurement Start: 04/11/21 09:59 Freq: Status: Active Protocol: Activity Type Activity Date Activity User E-Sign Co-Sign Detail Recorded Client Recorded Date Recorded By Document 04/11/21 10:01 KR [id number] 04/11/21 10:14 KR 04/11/21 10:01 Wound Center Nurse 1 #6 Right Lateral Lower extremity -Current Size (cm) - Length 3.3 -Current Size (cm) - Width 5.5 -Current Size (cm) - Depth 0.1 -Total Square Cm 18.15 -Exudate Amt Medium -Exudate Type Yellow/Green -Wound Margin Distinct, Outline Attached -Necrosis Amt Large (67-100%) -Necrotic Tissue Type Adherent Slough -Texture (Kajal-wound Skin Appearance) Assessed, Scarring -Moisture (Kajal-wound Skin Appearance) No Abnormality, Assessed -Color (Kajal-wound Skin Appearance) No Abnormality, Assessed -Temperature (Kajal-wound Skin No Abnormality Appearance) (Pt Warm) -Tenderness on Palpation (Kajal-wound No Skin Appearance) -Ulcer Cleansing Soap and Water -Foul Odor after Cleansing Yes -Anesthetic Used 4% Lidocaine Solution,5% Lidocaine Gel Right Calf (cm) 31.5 Right Ankle (cm) 22 - Nurse 2 - General Ulcer CM Notes Start: 04/11/21 09:59 Freq: Status: Active Protocol: Activity Type Activity Date Activity User E-Sign Co-Sign Detail Recorded Client Recorded Date Recorded By Document 04/11/21 10:35 MW [id number] 04/11/21 10:38 MW 04/11/21 10:35 Wound Center Nurse 2 #6 Right Lateral Lower extremity -Time 10:35 -Correct Patient Yes -Correct Side, Site, Position Yes -Correct Procedure Yes -Procedure Performed Yes -Type of Procedure Debridement -Clinical Debridement Subcutaneous -Tissue Removed Subcutaneous -Post Debridement (cm) - Length 3.2 -Post Debridement (cm) - Width 3.8 -Post Debridement (cm) - Depth 0.2 -Total Square (Post) (cm) 12.16 -Area of Debridement (cm) - Length 3.2 -Area of Debridement (cm) - Width 3.8 -Total Square (Area) (cm) 12.16 -Tunneling No -Undermining/Tunneling No -Circular Undermining No -Wound/Ulcer Outcome Not Healed -Ulcer Cleansing Rinsed/ Irrigated with Saline -Foul Odor after Cleansing No -Bioengineered Tissue No -Bleeding Controlled with Pressure -Offloading No -Treatment Response Procedure Tolerated Well -Debridement - Subq, 1st 20sq cm Yes Pain Scale: 0-10 Numeric Is Patient Pain Free? Yes - Nurse 3 - General Ulcer D/C NN Start: 04/11/21 09:59 Freq: Status: Active Protocol: Activity Type Activity Date Activity User E-Sign Co-Sign Detail Recorded Client Recorded Date Recorded By Document 04/11/21 10:53 [facility] [id number] 04/11/21 10:54 [facility] 04/11/21 10:53 Wound Care Nurse 3 #6 Right Lateral Lower extremity -Ulcer Cleansing Rinsed/ Irrigated with Saline -Foul Odor after Cleansing No -Primary Dressing Applied NonAdherent Contact Layer, Other -Other Dressing hydrogel -Primary Dressing Covered/Secured with Dry Gauze & Roll Gauze, Secured with Tape Right -Tubular Bandage Double Layer -Size of Tubigrip Used Size D -Size D ($) 1 Treatment Response Procedure Tolerated Well Pain Scale: 0-10 Numeric Is Patient Pain Free? Yes - Visit Discharge Discharge Condition Stable Ambulatory Status Ambulatory, Walker Transportation f Facility Type [facility] Care Facility Lab / Micro Data Attestation: I reviewed the patient's lab results. Assessment/Plan Assessment/Plan (1) PVD (peripheral vascular disease): CODE(S): I73.9 - Peripheral vascular disease, unspecified (2) Infected wound: CODE(S): T14.8XXA - Other injury of unspecified body region, initial encounter; L08.9 - Local infection of the skin and subcutaneous tissue, unspecified PLAN: Cultures obtained will check for aerobic and anaerobic bacteria (3) Nonhealing ulcer of right lower extremity: CODE(S): L97.919 - 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 QUALIFIERS: Non-pressure ulcer stage: with fat layer exposed Qualified Code(s): L97.912 - Non-pressure chronic ulcer of unspecified part of right lower leg with fat layer exposed PLAN: Wash right lower leg with antibacterial soap continue using Santyl nickel thickness to wound base cover with gauze and tape Double layer Tubigrip to the right lower leg this will be done every day Follow-up in 2 weeks
[2021-04-25 09:29] VITALS: BP 153/85; PULSE 95; RESP 22; TEMP 37.3
--- NOTE | 2021-04-25 12:06 | PN.PCM_ITS ---
History of Present Illness Date of Service: 04/25/21 Chief Complaint: Nonhealing ulcer left lower extremity History of Wound: This is a 79-year-old white female known to me previously who was recently discharged from the [facility] in November 2018 who presents to the wound center today for nonhealing ulcer on her left lower extrtemity x 2 weeks. She has a past medical history which is significant for hypertension, venous insufficiency, vertigo and peripheral vascular disease. The patient has not been utilizing any intervention for wound care and has been wearing compression socks that are 15-20 mm Hg but has not been elevating her legs as much as she should. She denies any fever, chills, nausea, vomiting, shortness of breath, chest pain or pressure. Patient states she fell in her bathroom on [address] on and since then has had this open wound that will not heal. She is very touchy about having it debrided and touched. Progress of Wound: The wound size is approximately about the same cultures came back with rare bacteria but she did grow cocci so she will be started on metronidazole as soon as possible. Pain appears to be better debridement went better today. Patient still has a lot of yellow slough in the base of the wound. They are using Santyl which does seem to be helping lift some of that yellow out. No increase in redness around wound or swelling in foot she does have swelling superior to the wound and her leg. Subjective Subjective Patient suffers from some dementia and her understanding is little she does appear to be in less pain and states that it does not hurt her as much. Objective Data Objective Data Patient's wound base is cobblestone very much like a peripheral vascular disease and it has a lot of yellow slough in the base still going to continue using the Santyl to debride for us. Cultures were positive for anaerobics we will start her on metronidazole 250 3 times daily with food or snack or meals. And that will be for 14 days. Patient is to continue to wound care dressing changes daily at the assisted living and return back in a week Vital Signs: Vital Signs Temp Pulse Resp BP 99.1 F 95 22 H 153/85 H 04/25/21 09:29 04/25/21 09:29 04/25/21 09:29 04/25/21 09:29 Lab / Micro Data Attestation: I reviewed the patient's lab results. Micro: Microbiology 04/11/21 10:45 Wound Abcess - Leg, Right Gram Stain - Final 04/11/21 10:45 Wound Abcess - Leg, Right Wound Culture - Final Enterococcus casseliflavus (D) 04/11/21 10:45 Wound Abcess - Leg, Right Anaerobic Culture - Final Anaerobic cocci Physical Exam Const oriented x3 General Appearance: cooperative Exam Limitations: no limitations HEENT normocephalic Head and Scalp: normal to inspection Face and Sinus: normal facial exam Nose: external nose normal General Ear: hearing grossly impaired External Ear: external ears normal Mouth: oral and palatal mucosa normal Eyes PERRL General Eye: normal appearance of both eyes Neck full ROM General: normal visual inspection Resp normal respiratory effort Effort and Inspection: able to speak in complete sentences Auscultation: clear to auscultation bilaterally Cardio regular rate and regular rhythm Palpation: normal PMI Rate: regular rate Rhythm: regular rhythm GI Auscultation: normoactive bowel sounds Palpation: soft and no hepatosplenomegaly external exam normal Extremity normal to inspection Extremity Narrative: Wound on her right lower extremity General Extremity: normal exam except as noted and edema Skin Wounds: wounds noted Wound Narrative: Open superficial wound with slough and some scabbing and in areas. Erythema around wound. Very tender to palpate area Neuro oriented x3 Psych Appearance: grossly normal Speech: normal speech Thought Content: normal thought content Judgement: judgement good Debridement Note Debridement Note Wound Grade/Stage: Right lateral lower extremity wound Type of Debridement: Excisional debridement Anesthesia Used: 5% Lidocaine Gel Depth: Down to and including healthy tissue Percentage of wound debrided: 100 Instrument Used: 5mm curette Tissue Removed: Slough Severity: Fat Layer Exposed Amount of bleeding with debridement: Mild Bleeding Controlled with: Pressure and Compression and gauze Patient tolerated procedure: Patient tolerated procedure well Post-Debridement Measurements and Additional Note: Post-Debridement Measurements/Treatment JACK - Nurse 1 - General Ulcer Assessment Start: 04/11/21 09:59 Freq: Status: Active Protocol: LUZ Activity Type Activity Date Activity User E-Sign Co-Sign Detail Recorded Client Recorded Date Recorded By Document 04/11/21 10:01 LADAN [id number] 04/11/21 10:14 KR Document 04/25/21 09:29 DL [id number] 04/25/21 09:34 DL 04/11/21 04/25/21 10:01 09:29 - Today's Visit Information Type of service Initial Visit Follow-up Visit (Physician/TOBACCO STEMMER ) Arrival Mode Ambulatory, Ambulatory, Walker Walker Transfer Assistance None Patient Identification Verified (Name & Yes Yes ) Patient Requires Transmission-Based No Precautions Vital Signs Temperature (97.8 F-99.1 F) 97.0 F L 99.1 F Temperature Source Temporal Temporal Pulse Rate (60-100) 86 95 Pulse Location Monitor Respiratory Rate (12-18) 22 H Respiratory rate source Observation Blood Pressure (90/60-120/80) 179/88 H 153/85 H Blood Pressure Mean (mm Hg) 118 107 Source Monitor Monitor Position Sitting Blood Pressure Location Right Arm History Since Last Visit- (Skip if this is Patient's initial visit) Have you changed medications since your No No last visit? Any new allergies or adverse reactions No No Had a fall/change in ADL's that may No No increase risk of falls Signs or symptoms of abuse and/or No No neglect since last visit Have you been in the hospital since your No No last visit? Has dressing in place as prescribed Yes No Has compression in place as prescribed N/A No Has offloadiing in place as prescribed N/A N/A Experienced any changes in pain level or No No management Left Footwear Regular Shoe Regular Shoe Right Footwear Regular Shoe Regular Shoe Pain Scale: 0-10 Numeric Is Patient Pain Free? Yes Yes - Nurse 1 - General Ulcer Measurement Start: 04/11/21 09:59 Freq: Status: Active Protocol: Activity Type Activity Date Activity User E-Sign Co-Sign Detail Recorded Client Recorded Date Recorded By Document 04/11/21 10:01 KR [id number] 04/11/21 10:14 KR Document 04/25/21 09:29 DL [id number] 04/25/21 09:34 DL 04/11/21 04/25/21 10:01 09:29 Wound Center Nurse 1 #6 Right Lateral Lower extremity -Current Size (cm) - Length 3.3 2.9 -Current Size (cm) - Width 5.5 4 -Current Size (cm) - Depth 0.1 0.1 -Total Square Cm 18.15 11.6 -Photo Taken No -Exudate Amt Medium Medium -Exudate Type Yellow/Green Serosanguineous -Wound Margin Distinct, Distinct, Outline Outline Attached Attached -Granulation Amt None Present (0 %) -Necrosis Amt Large (67-100%) Large (67-100%) -Necrotic Tissue Type Adherent Slough Adherent Slough -Structure Exposed N/A -Texture (Kajal-wound Skin Appearance) Assessed, Excoriation, Scarring Localized Edema -Moisture (Kajal-wound Skin Appearance) No Abnormality, Weeping Assessed -Color (Kajal-wound Skin Appearance) No Abnormality, Hemosiderin Assessed Staining -Temperature (Kajal-wound Skin No Abnormality No Abnormality Appearance) (Pt Warm) (Pt Warm) -Tenderness on Palpation (Kajal-wound No Yes Skin Appearance) -Ulcer Cleansing Soap and Water Rinsed/ Irrigated with Saline -Foul Odor after Cleansing Yes No -Anesthetic Used 4% Lidocaine 5% Lidocaine Solution,5% Gel Lidocaine Gel Right Calf (cm) 31.5 30.5 Right Ankle (cm) 22 21.5 WC - Nurse 2 - General Ulcer CM Notes Start: 04/11/21 09:59 Freq: Status: Active Protocol: Activity Type Activity Date Activity User E-Sign Co-Sign Detail Recorded Client Recorded Date Recorded By Document 04/11/21 10:35 MW [id number] 04/11/21 10:38 MW Document 04/25/21 09:45 MW [id number] 04/25/21 09:50 MW 04/11/21 04/25/21 10:35 09:45 Wound Center Nurse 2 #6 Right Lateral Lower extremity -Time 10:35 09:46 -Correct Patient Yes Yes -Correct Side, Site, Position Yes Yes -Correct Procedure Yes Yes -Procedure Performed Yes Yes -Type of Procedure Debridement Debridement -Clinical Debridement Subcutaneous Subcutaneous -Tissue Removed Subcutaneous Subcutaneous -Post Debridement (cm) - Length 3.2 3.0 -Post Debridement (cm) - Width 3.8 3.5 -Post Debridement (cm) - Depth 0.2 0.3 -Total Square (Post) (cm) 12.16 10.50 -Area of Debridement (cm) - Length 3.2 3.0 -Area of Debridement (cm) - Width 3.8 3.5 -Total Square (Area) (cm) 12.16 10.50 -Tunneling No No -Undermining/Tunneling No No -Circular Undermining No No -Wound/Ulcer Outcome Not Healed Not Healed -Ulcer Cleansing Rinsed/ Rinsed/ Irrigated with Irrigated with Saline Saline -Foul Odor after Cleansing No No -Bioengineered Tissue No No -Bleeding Controlled with Pressure Pressure -Offloading No No -Treatment Response Procedure Procedure Tolerated Well Tolerated Well -Debridement - Subq, 1st 20sq cm Yes Yes Pain Scale: 0-10 Numeric Is Patient Pain Free? Yes Yes - Nurse 3 - General Ulcer D/C NN Start: 04/11/21 09:59 Freq: Status: Active Protocol: Activity Type Activity Date Activity User E-Sign Co-Sign Detail Recorded Client Recorded Date Recorded By Document 04/11/21 10:53 [facility] [id number] 04/11/21 10:54 [facility] Document 04/25/21 09:58 DL [id number] 04/25/21 10:00 DL 04/11/21 04/25/21 10:53 09:58 Wound Care Nurse 3 #6 Right Lateral Lower extremity -Ulcer Cleansing Rinsed/ Rinsed/ Irrigated with Irrigated with Saline Saline -Foul Odor after Cleansing No No -Primary Dressing Applied NonAdherent Contact Layer, Other -Other Dressing hydrogel aquacel ex -Primary Dressing Covered/Secured with Dry Gauze & Dry Gauze & Roll Gauze, Roll Gauze, Secured with Secured with Tape Tape Right -Tubular Bandage Double Layer -Size of Tubigrip Used Size D -Size D ($) 1 -Other tubigrip Treatment Response Procedure Procedure Tolerated Well Tolerated Well Pain Scale: 0-10 Numeric Is Patient Pain Free? Yes Yes - Visit Discharge Discharge Condition Stable Stable Ambulatory Status Ambulatory, Ambulatory, Walker Walker Transportation ecf Notes: Dressing applied per Carmen Arevalo today Facility Type [facility] Orders Sent Yes Assessment/Plan Assessment/Plan (1) PVD (peripheral vascular disease): CODE(S): I73.9 - Peripheral vascular disease, unspecified (2) Infected wound: CODE(S): T14.8XXA - Other injury of unspecified body region, initial encounter; L08.9 - Local infection of the skin and subcutaneous tissue, unspecif ied PLAN: Cultures obtained will check for cocci. Will start on metronidazole 250 mg 1 p.o. 3 times daily for 14 days #42 no refills (3) Nonhealing ulcer of right lower extremity: CODE(S): L97.919 - 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 QUALIFIERS: Non-pressure ulcer stage: with fat layer exposed Qualified Code(s): L97.912 - Non-pressure chronic ulcer of unspecified part of right lower leg with fat layer exposed PLAN: Wash right lower leg with antibacterial soap continue using Santyl nickel thickness to wound base cover with gauze and tape Double layer Tubigrip to the right lower leg this will be done every day Follow-up in 1 weeks
== END 2021-05-08 23:59 ==
LOC: WC 09:30
PROVIDERS: PCP Student in an Organized Health Care Education/Training Program; Visit Provider Nurse Practitioner
DX: L97.912 Non-pressure chronic ulcer of unspecified part of right lower leg with fat layer exposed (principal); S81.801S Unspecified open wound, right lower leg, sequela; W19.XXXS Unspecified fall, sequela; I73.9 Peripheral vascular disease, unspecified; I87.2 Venous insufficiency (chronic) (peripheral); I10 Essential (primary) hypertension; F03.90 Unspecified dementia, unspecified severity, without behavioral disturbance, psychotic disturbance, mood disturbance, and anxiety; M79.89 Other specified soft tissue disorders
CPT/HCPCS: 11042; 87070; 87075; 87077; 87186; 87205; 99213; G0463

== ENCOUNTER 2021-06-06 09:30 | Outpatient (RCR) | payer MEDICARE, MEDICAID, SELFPAY ==
[2021-05-09 00:09] VITALS: BP 153/85; PULSE 95; RESP 22; TEMP 37.3
[2021-05-09 09:34] VITALS: BP 128/87; PULSE 74; TEMP 36.5
--- NOTE | 2021-05-09 10:49 | PCM.WC.PN ---
History of Present Illness Date of Service: 05/09/21 Chief Complaint: Nonhealing ulcer left lower extremity History of Wound: This is a 79-year-old white female known to me previously who was recently discharged from the [facility] in November 2018 who presents to the wound center today for nonhealing ulcer on her left lower extrtemity x 2 weeks. She has a past medical history which is significant for hypertension, venous insufficiency, vertigo and peripheral vascular disease. The patient has not been utilizing any intervention for wound care and has been wearing compression socks that are 15-20 mm Hg but has not been elevating her legs as much as she should. She denies any fever, chills, nausea, vomiting, shortness of breath, chest pain or pressure. Patient states she fell in her bathroom on tile [address] on and since then has had this open wound that will not heal. She is very touchy about having it debrided and touched. Progress of Wound: The right lower leg ulcer is still cobblestoning with some hyper granulation occurring still collects slough in the base. We have been using Santyl that has loosened it and helped with debridement. Size is slightly smaller. Patient is more tolerant to the debridement now. We will apply for a skin sub to see if that will help. Had to hit the hyper granulated tissue with some nitro sticks. We did obtain new cultures to make sure were not missing anything. Surrounding skin looks supple and soft no erythema noted. Swelling is much better with the increased compression of the Tk wrap over her double layer Tubigrip. Subjective Subjective Patient just asked if it is getting better no other concerns denies pain at this time Objective Data Objective Data Again we will continue the Santyl until we can get the okay on the skin substitute. We will wait for culture results to decide if she needs to be on any antibiotics at this time And will continue with the compression she seems to be doing well with that. Vital Signs: Vital Signs Temp Pulse Resp BP 97.7 F L 74 22 H 128/87 H 05/09/21 09:34 05/09/21 09:34 05/09/21 00:09 05/09/21 09:34 Lab / Micro Data Attestation: I reviewed the patient's lab results. Physical Exam Const oriented x3 General Appearance: cooperative Exam Limitations: no limitations HEENT normocephalic Head and Scalp: normal to inspection Face and Sinus: normal facial exam Nose: external nose normal General Ear: hearing grossly impaired External Ear: external ears normal Mouth: oral and palatal mucosa normal Eyes PERRL General Eye: normal appearance of both eyes Neck full ROM General: normal visual inspection Resp normal respiratory effort Effort and Inspection: able to speak in complete sentences Auscultation: clear to auscultation bilaterally Cardio regular rate and regular rhythm Palpation: normal PMI Rate: regular rate Rhythm: regular rhythm GI Auscultation: normoactive bowel sounds Palpation: soft and no hepatosplenomegaly external exam normal Extremity normal to inspection Extremity Narrative: Wound on her right lower extremity General Extremity: normal exam except as noted and edema Skin Wounds: wounds noted Wound Narrative: Open superficial wound with slough and some scabbing and in areas. Erythema around wound. Very tender to palpate area Neuro oriented x3 Psych Appearance: grossly normal Speech: normal speech Thought Content: normal thought content Judgement: judgement good Debridement Note Debridement Note Wound debrided: Right lateral lower leg ulcer Type of Debridement: Excisional debridement Anesthesia Used: 5% Lidocaine Gel Depth: Down to and including healthy tissue Percentage of wound debrided: 100 Tissue Removed: Slough and fibrin Severity: Fat Layer Exposed Amount of bleeding with debridement: Mild Bleeding Controlled with: Compression and gauze Patient tolerated procedure: Patient tolerated procedure well Post-Debridement Measurements and Additional Note: Post-Debridement Measurements/Treatment - Nurse 1 - General Ulcer Assessment Start: 05/09/21 09:33 Freq: Status: Active Protocol: JACK.LOWJASONT Activity Type Activity Date Activity User E-Sign Co-Sign Detail Recorded Client Recorded Date Recorded By Document 05/09/21 09:34 VT [id number] 05/09/21 09:35 ROCKY 05/09/21 09:34 - Today's Visit Information Type of service Follow-up Visit (Physician/[employer]IST ) Arrival Mode Ambulatory Patient Identification Verified (Name & Yes ) Vital Signs Temperature (97.8 F-99.1 F) 97.7 F L Temperature Source Temporal Pulse Rate (60-100) 74 Pulse Location Monitor Blood Pressure (90/60-120/80) 128/87 H Blood Pressure Mean (mm Hg) 100 Source Monitor Position Sitting Blood Pressure Location Left Arm History Since Last Visit- (Skip if this is Patient's initial visit) Have you changed medications since your No last visit? Any new allergies or adverse reactions No Had a fall/change in ADL's that may No increase risk of falls Signs or symptoms of abuse and/or No neglect since last visit Have you been in the hospital since your No last visit? Has dressing in place as prescribed Yes Has compression in place as prescribed Yes Has offloadiing in place as prescribed N/A Experienced any changes in pain level or No management Left Footwear Regular Shoe Right Footwear Regular Shoe Pain Scale: 0-10 Numeric Is Patient Pain Free? Yes - Nurse 1 - General Ulcer Measurement Start: 05/09/21 09:33 Freq: Status: Active Protocol: Activity Type Activity Date Activity User E-Sign Co-Sign Detail Recorded Client Recorded Date Recorded By Document 05/09/21 09:34 VT [id number] 05/09/21 09:35 ROCKY 05/09/21 09:34 Wound Center Nurse 1 #6 Right Lateral Lower extremity -Current Size (cm) - Length 3 -Current Size (cm) - Width 4 -Current Size (cm) - Depth 0.1 -Total Square Cm 12 -Exudate Amt Medium -Exudate Type Yellow/Green -Wound Margin Distinct, Outline Attached -Necrosis Amt Large (67-100%) -Necrotic Tissue Type Adherent Slough -Texture (Kajal-wound Skin Appearance) Assessed, Scarring -Moisture (Kajal-wound Skin Appearance) Assessed, Maceration -Color (Kajal-wound Skin Appearance) No Abnormality, Assessed -Temperature (Kajal-wound Skin No Abnormality Appearance) (Pt Warm) -Tenderness on Palpation (Kajal-wound No Skin Appearance) -Ulcer Cleansing Rinsed/ Irrigated with Saline -Foul Odor after Cleansing No -Anesthetic Used 5% Lidocaine Gel Right Calf (cm) 31 Right Ankle (cm) 22 - Nurse 2 - General Ulcer CM Notes Start: 05/09/21 09:33 Freq: Status: Active Protocol: Activity Type Activity Date Activity User E-Sign Co-Sign Detail Recorded Client Recorded Date Recorded By Document 05/09/21 10:02 MW [id number] 05/09/21 10:11 MW 05/09/21 10:02 Wound Center Nurse 2 #6 Right Lateral Lower extremity -Time 10:02 -Correct Patient Yes -Correct Side, Site, Position Yes -Correct Procedure Yes -Procedure Performed Yes -Type of Procedure Debridement -Clinical Debridement Subcutaneous -Tissue Removed Subcutaneous -Post Debridement (cm) - Length 2.5 -Post Debridement (cm) - Width 4.0 -Post Debridement (cm) - Depth 0.2 -Total Square (Post) (cm) 10.00 -Area of Debridement (cm) - Length 2.5 -Area of Debridement (cm) - Width 4.0 -Total Square (Area) (cm) 10.00 -Tunneling No -Undermining/Tunneling No -Circular Undermining No -Wound/Ulcer Outcome Not Healed -Ulcer Cleansing Rinsed/ Irrigated with Saline -Foul Odor after Cleansing No -Bioengineered Tissue No -Bleeding Controlled with Pressure -Offloading No -Treatment Response Procedure Tolerated Well -Debridement - Subq, 1st 20sq cm Yes Pain Scale: 0-10 Numeric Is Patient Pain Free? Yes Assessment/Plan Assessment/Plan (1) PVD (peripheral vascular disease): CODE(S): I73.9 - Peripheral vascular disease, unspecified (2) Infected wound: CODE(S): T14.8XXA - Other injury of unspecified body region, initial encounter; L08.9 - Local infection of the skin and subcutaneous tissue, unspecified PLAN: Cultures obtained . 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
[2021-05-16 09:32] VITALS: BP 169/95; PULSE 93; TEMP 36.1
--- NOTE | 2021-05-16 11:53 | PCM.WC.PN ---
History of Present Illness Date of Service: 05/16/21 Chief Complaint: Nonhealing ulcer left lower extremity History of Wound: This is a 79-year-old white female known to me previously who was recently discharged from the [facility] in November 2018 who presents to the wound center today for nonhealing ulcer on her left lower extrtemity x 2 weeks. She has a past medical history which is significant for hypertension, venous insufficiency, vertigo and peripheral vascular disease. The patient has not been utilizing any intervention for wound care and has been wearing compression socks that are 15-20 mm Hg but has not been elevating her legs as much as she should. She denies any fever, chills, nausea, vomiting, shortness of breath, chest pain or pressure. Patient states she fell in her bathroom on [address] on and since then has had this open wound that will not heal. She is very touchy about having it debrided and touched. Progress of Wound: Right lateral lower leg still is cobblestone type wound with slough and protruding new cells. Patient was approved for puraply and we will try puraply #1 today. Subjective Subjective Her son was with her today and he was happy where using skin substitute on the wound and he brought in the proper insurance so she will not get extra billing. Objective Data Objective Data The wound is measuring slightly smaller healing around the edges still has that cobble stone affect skin in the center with slough intertwined inside the wound base. Tolerates debridement better but still has a lot of pain. Even using with the 4% Cetacaine in between debridements. #1 puraply was applied to the area moistened covered with wound veil and Steri-Strips and then were adding Aquacel on top with padding. Vital Signs: Vital Signs Temp Pulse Resp BP 96.9 F L 93 22 H 169/95 H 05/16/21 09:32 05/16/21 09:32 05/09/21 00:09 05/16/21 09:32 Lab / Micro Data Attestation: I reviewed the patient's lab results. Micro: Microbiology 05/09/21 10:10 Wound Abcess - Leg, Left Gram Stain - Final 05/09/21 10:10 Wound Abcess - Leg, Left Wound Culture - Final Staphylococcus lugdunensis#2 Staphylococcus lugdunensis Staphylococcus epidermidis 05/09/21 10:10 Wound Abcess - Leg, Left Anaerobic Culture - Final Anaerobic cocci Physical Exam Const oriented x3 General Appearance: cooperative Exam Limitations: no limitations HEENT normocephalic Head and Scalp: normal to inspection Face and Sinus: normal facial exam Nose: external nose normal General Ear: hearing grossly impaired External Ear: external ears normal Mouth: oral and palatal mucosa normal Eyes PERRL General Eye: normal appearance of both eyes Neck full ROM General: normal visual inspection Resp normal respiratory effort Effort and Inspection: able to speak in complete sentences Auscultation: clear to auscultation bilaterally Cardio regular rate and regular rhythm Palpation: normal PMI Rate: regular rate Rhythm: regular rhythm GI Auscultation: normoactive bowel sounds Palpation: soft and no hepatosplenomegaly external exam normal Extremity normal to inspection Extremity Narrative: Wound on her right lower extremity General Extremity: normal exam except as noted and edema Skin Wounds: wounds noted Wound Narrative: Open superficial wound with slough and some scabbing and in areas. Erythema around wound. Very tender to palpate area Neuro oriented x3 Psych Appearance: grossly normal Speech: normal speech Thought Content: normal thought content Judgement: judgement good Debridement Note Debridement Note Wound debrided: Right lateral lower ankle ulcer Type of Debridement: Excisional debridement Anesthesia Used: 5% Lidocaine Gel Depth: in the subcutaneous layer Percentage of wound debrided: 100 Instrument Used: 5mm curette Tissue Removed: Slough Severity: Fat Layer Exposed Amount of bleeding with debridement: Mild Bleeding Controlled with: Compression and gauze Patient tolerated procedure: Patient tolerated procedure well Post-Debridement Measurements and Additional Note: Post-Debridement Measurements/Treatment - Nurse 1 - General Ulcer Assessment Start: 05/09/21 09:33 Freq: Status: Active Protocol: JACK.TRINH Activity Type Activity Date Activity User E-Sign Co-Sign Detail Recorded Client Recorded Date Recorded By Document 05/09/21 09:34 AK [id number] 05/09/21 09:35 AK Document 05/16/21 09:32 KR [id number] 05/16/21 09:34 KR 05/09/21 05/16/21 09:34 09:32 - Today's Visit Information Type of service Follow-up Visit Follow-up Visit (Physician/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 SUPERVISOR (Physician/SEGMENTAL PAVING SUPERVISOR ) ) Arrival Mode Ambulatory Ambulatory, Walker Patient Identification Verified (Name & Yes Yes ) Patient Requires Transmission-Based No Precautions Safety Precautions NA Vital Signs Temperature (97.8 F-99.1 F) 97.7 F L 96.9 F L Temperature Source Temporal Temporal Pulse Rate (60-100) 74 93 Pulse Location Monitor Monitor Blood Pressure (90/60-120/80) 128/87 H 169/95 H Blood Pressure Mean (mm Hg) 100 119 Source Monitor Monitor Position Sitting Blood Pressure Location Left Arm History Since Last Visit- (Skip if this is Patient's initial visit) Have you changed medications since your No No last visit? Any new allergies or adverse reactions No No Had a fall/change in ADL's that may No No increase risk of falls Signs or symptoms of abuse and/or No No neglect since last visit Have you been in the hospital since your No No last visit? Has dressing in place as prescribed Yes Yes Has compression in place as prescribed Yes No Has offloadiing in place as prescribed N/A N/A Experienced any changes in pain level or No No management Left Footwear Regular Shoe Regular Shoe Right Footwear Regular Shoe Regular Shoe Pain Scale: 0-10 Numeric Is Patient Pain Free? Yes WC - Nurse 1 - General Ulcer Measurement Start: 05/09/21 09:33 Freq: Status: Active Protocol: Activity Type Activity Date Activity User E-Sign Co-Sign Detail Recorded Client Recorded Date Recorded By Document 05/09/21 09:34 CA [id number] 05/09/21 09:35 AK Document 05/16/21 09:32 KR [id number] 05/16/21 09:34 KR 05/09/21 05/16/21 09:34 09:32 Wound Center Nurse 1 #6 Right Lateral Lower extremity -Combined with other wound No -Current Size (cm) - Length 3 2.5 -Current Size (cm) - Width 4 3.5 -Current Size (cm) - Depth 0.1 0.2 -Total Square Cm 12 8.75 -Photo Taken No -Epithelialization None Present -Tunneling No -Undermining/Tunneling No -Circular Undermining No -Exudate Amt Medium Medium -Exudate Type Yellow/Green Serosanguineous -Wound Margin Distinct, Distinct, Outline Outline Attached Attached -Granulation Amt Small (1-33%) -Granulation Quality Red -Slough/Fibrin Yes -Necrosis Amt Large (67-100%) Medium (34-66%) -Necrotic Tissue Type Adherent Slough Adherent Slough -Structure Exposed N/A -Texture (Kajal-wound Skin Appearance) Assessed, Scarring -Moisture (Kajal-wound Skin Appearance) Assessed, No Abnormality, Maceration Assessed -Color (Kajal-wound Skin Appearance) No Abnormality, Assessed, Assessed Erythema -Temperature (Kajal-wound Skin No Abnormality No Abnormality Appearance) (Pt Warm) (Pt Warm) -Tenderness on Palpation (Kajal-wound No No Skin Appearance) -Ulcer Cleansing Rinsed/ Rinsed/ Irrigated with Irrigated with Saline Saline -Foul Odor after Cleansing No No -Anesthetic Used 5% Lidocaine 4% Lidocaine Gel Solution,5% Lidocaine Gel Right Calf (cm) 31 31 Right Ankle (cm) 22 22 WC - Nurse 2 - General Ulcer CM Notes Start: 05/09/21 09:33 Freq: Status: Active Protocol: Activity Type Activity Date Activity User E-Sign Co-Sign Detail Recorded Client Recorded Date Recorded By Document 05/09/21 10:02 MW [id number] 05/09/21 10:11 MW 05/09/21 10:02 Wound Center Nurse 2 #6 Right Lateral Lower extremity -Time 10:02 -Correct Patient Yes -Correct Side, Site, Position Yes -Correct Procedure Yes -Procedure Performed Yes -Type of Procedure Debridement -Clinical Debridement Subcutaneous -Tissue Removed Subcutaneous -Post Debridement (cm) - Length 2.5 -Post Debridement (cm) - Width 4.0 -Post Debridement (cm) - Depth 0.2 -Total Square (Post) (cm) 10.00 -Area of Debridement (cm) - Length 2.5 -Area of Debridement (cm) - Width 4.0 -Total Square (Area) (cm) 10.00 -Tunneling No -Undermining/Tunneling No -Circular Undermining No -Wound/Ulcer Outcome Not Healed -Ulcer Cleansing Rinsed/ Irrigated with Saline -Foul Odor after Cleansing No -Bioengineered Tissue No -Bleeding Controlled with Pressure -Offloading No -Treatment Response Procedure Tolerated Well -Debridement - Subq, 1st 20sq cm Yes Pain Scale: 0-10 Numeric Is Patient Pain Free? Yes JACK - Nurse 3 - General Ulcer D/C NN Start: 05/09/21 09:33 Freq: Status: Active Protocol: Activity Type Activity Date Activity User E-Sign Co-Sign Detail Recorded Client Recorded Date Recorded By Document 05/09/21 12:01 AK [id number] 05/09/21 12:02 AK Document 05/16/21 10:11 KR [id number] 05/16/21 10:12 LADAN 05/09/21 05/16/21 12:01 10:11 Wound Care Nurse 3 #6 Right Lateral Lower extremity -Ulcer Cleansing Rinsed/ Irrigated with Saline -Foul Odor after Cleansing No -Negative Pressure Wound Therapy N/A -Primary Dressing Applied NonAdherent Aquacel Extra Contact Layer -Other Dressing Santyl -Primary Dressing Covered/Secured with Dry Gauze & Dry Gauze, Roll Gauze, Secured with Secured with Tape Tape -Aquacel Extra 1 Right -Compression Wrap Tk Wrap Pain Scale: 0-10 Numeric Is Patient Pain Free? Yes WC - Visit Discharge Discharge Condition Stable Stable Ambulatory Status Ambulatory, Walker Walker Transportation Private Auto Accompanied by son Medication Reconcilliation completed & No provided to patient/care provider Clinical Summary of Care Provided Yes Assessment/Plan Assessment/Plan (1) Infected wound: CODE(S): T14.8XXA - Other injury of unspecified body region, initial encounter; L08.9 - Local infection of the skin and subcutaneous tissue, unspecified PLAN: Start Flagyl 250 mg 3 times a day for 14 days Start Bactrim double strength 1 twice a day for 14 days (2) Nonhealing ulcer of right lower extremity: CODE(S): L97.919 - 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 QUALIFIERS: Non-pressure ulcer stage: with fat layer exposed Qualified Code(s): L97.912 - Non-pressure chronic ulcer of unspecified part of right lower leg with fat layer exposed PLAN: Puraply #1 applied to right lower leg ulcer moistened covered with wound veil and Aquacel padded and double layer Tubigrip Leave dressing alone no showering may only undressed down to the Steri-Strips if need to be changed Follow-up in 1 week (3) PVD (peripheral vascular disease): CODE(S): I73.9 - Peripheral vascular disease, unspecified
--- NOTE | 2021-05-23 12:06 | PN.PCM_ITS ---
History of Present Illness Date of Service: 05/23/21 Chief Complaint: Nonhealing ulcer left lower extremity History of Wound: This is a 79-year-old white female known to me previously who was recently discharged from the [facility] in November 2018 who presents to the wound center today for nonhealing ulcer on her left lower extrtemity x 2 weeks. She has a past medical history which is significant for hypertension, venous insufficiency, vertigo and peripheral vascular disease. The patient has not been utilizing any intervention for wound care and has been wearing compression socks that are 15-20 mm Hg but has not been elevating her legs as much as she should. She denies any fever, chills, nausea, vomiting, shortness of breath, chest pain or pressure. Patient states she fell in her bathroom on tile [address] on and since then has had this open wound that will not heal. She is very touchy about having it debrided and touched. Progress of Wound: Right lateral lower leg still is cobblestone type wound with slough and protruding new cells. Patient was approved for puraply and we will try puraply #2 today. Wound has improved and is smaller on the puraply We also debrided with ultrasonic water that she seemed to tolerate better at cleaning the wound. Subjective Subjective Patient was extra anxious today because machine we used is big and loud Objective Data Objective Data Removed puraply #1 tolerated well use this ultrasonic water debrider which made it more tolerable for her. Reapplied #2 puraply with Steri-Strips in wound veil Aquacel extra on top. We will follow up in another week Vital Signs: Vital Signs Temp Pulse Resp BP 96.9 F L 93 22 H 169/95 H 05/16/21 09:32 05/16/21 09:32 05/09/21 00:09 05/16/21 09:32 Lab / Micro Data Micro: Microbiology 05/09/21 10:10 Wound Abcess - Leg, Left Gram Stain - Final 05/09/21 10:10 Wound Abcess - Leg, Left Wound Culture - Final Staphylococcus lugdunensis#2 Staphylococcus lugdunensis Staphylococcus epidermidis 05/09/21 10:10 Wound Abcess - Leg, Left Anaerobic Culture - Final Anaerobic cocci Physical Exam Const oriented x3 General Appearance: cooperative Exam Limitations: no limitations HEENT normocephalic Head and Scalp: normal to inspection Face and Sinus: normal facial exam Nose: external nose normal General Ear: hearing grossly impaired External Ear: external ears normal Mouth: oral and palatal mucosa normal Eyes PERRL General Eye: normal appearance of both eyes Neck full ROM General: normal visual inspection Resp normal respiratory effort Effort and Inspection: able to speak in complete sentences Auscultation: clear to auscultation bilaterally Cardio regular rate and regular rhythm Palpation: normal PMI Rate: regular rate Rhythm: regular rhythm GI Auscultation: normoactive bowel sounds Palpation: soft and no hepatosplenomegaly external exam normal Extremity normal to inspection Extremity Narrative: Wound on her right lower extremity General Extremity: normal exam except as noted and edema Skin Wounds: wounds noted Wound Narrative: Open superficial wound with slough and some scabbing and in areas. Erythema around wound. Very tender to palpate area Neuro oriented x3 Psych Appearance: grossly normal Speech: normal speech Thought Content: normal thought content Judgement: judgement good Debridement Note Debridement Note Wound debrided: Right lateral lower leg Laterality: Right Type of Debridement: Excisional debridement Anesthesia Used: 5% Lidocaine Gel Depth: Down to and including healthy tissue Percentage of wound debrided: 100 Instrument Used: 7mm curette and - (Ultrasonic to water debrider) Tissue Removed: Nonabsorbable tissue and fibrin some slough Severity: Fat Layer Exposed Amount of bleeding with debridement: Mild Bleeding Controlled with: Compression and gauze Patient tolerated procedure: Patient tolerated procedure well Post-Debridement Measurements and Additional Note: Post-Debridement Measurements/Treatment WC - Nurse 1 - General Ulcer Assessment Start: 05/09/21 09:33 Freq: Status: Active Protocol: LUZ Activity Type Activity Date Activity User E-Sign Co-Sign Detail Recorded Client Recorded Date Recorded By Document 05/09/21 09:34 AK [id number] 05/09/21 09:35 AK Document 05/16/21 09:32 KR [id number] 05/16/21 09:34 LADAN 05/09/21 05/16/21 09:34 09:32 - Today's Visit Information Type of service Follow-up Visit Follow-up Visit (Physician/SMOKING 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 PACKING MACHINE HAND (Physician/SMOKING TOBACCO PACKING MACHINE HAND ) ) Arrival Mode Ambulatory Ambulatory, Walker Patient Identification Verified (Name & Yes Yes ) Patient Requires Transmission-Based No Precautions Safety Precautions NA Vital Signs Temperature (97.8 F-99.1 F) 97.7 F L 96.9 F L Temperature Source Temporal Temporal Pulse Rate (60-100) 74 93 Pulse Location Monitor Monitor Blood Pressure (90/60-120/80) 128/87 H 169/95 H Blood Pressure Mean (mm Hg) 100 119 Source Monitor Monitor Position Sitting Blood Pressure Location Left Arm History Since Last Visit- (Skip if this is Patient's initial visit) Have you changed medications since your No No last visit? Any new allergies or adverse reactions No No Had a fall/change in ADL's that may No No increase risk of falls Signs or symptoms of abuse and/or No No neglect since last visit Have you been in the hospital since your No No last visit? Has dressing in place as prescribed Yes Yes Has compression in place as prescribed Yes No Has offloadiing in place as prescribed N/A N/A Experienced any changes in pain level or No No management Left Footwear Regular Shoe Regular Shoe Right Footwear Regular Shoe Regular Shoe Pain Scale: 0-10 Numeric Is Patient Pain Free? Yes WC - Nurse 1 - General Ulcer Measurement Start: 05/09/21 09:33 Freq: Status: Active Protocol: Activity Type Activity Date Activity User E-Sign Co-Sign Detail Recorded Client Recorded Date Recorded By Document 05/09/21 09:34 KS [id number] 05/09/21 09:35 AK Document 05/16/21 09:32 KR [id number] 05/16/21 09:34 KR 05/09/21 05/16/21 09:34 09:32 Wound Center Nurse 1 #6 Right Lateral Lower extremity -Combined with other wound No -Current Size (cm) - Length 3 2.5 -Current Size (cm) - Width 4 3.5 -Current Size (cm) - Depth 0.1 0.2 -Total Square Cm 12 8.75 -Photo Taken No -Epithelialization None Present -Tunneling No -Undermining/Tunneling No -Circular Undermining No -Exudate Amt Medium Medium -Exudate Type Yellow/Green Serosanguineous -Wound Margin Distinct, Distinct, Outline Outline Attached Attached -Granulation Amt Small (1-33%) -Granulation Quality Red -Slough/Fibrin Yes -Necrosis Amt Large (67-100%) Medium (34-66%) -Necrotic Tissue Type Adherent Slough Adherent Slough -Structure Exposed N/A -Texture (Kajal-wound Skin Appearance) Assessed, Scarring -Moisture (Kajal-wound Skin Appearance) Assessed, No Abnormality, Maceration Assessed -Color (Kajal-wound Skin Appearance) No Abnormality, Assessed, Assessed Erythema -Temperature (Kajal-wound Skin No Abnormality No Abnormality Appearance) (Pt Warm) (Pt Warm) -Tenderness on Palpation (Kajal-wound No No Skin Appearance) -Ulcer Cleansing Rinsed/ Rinsed/ Irrigated with Irrigated with Saline Saline -Foul Odor after Cleansing No No -Anesthetic Used 5% Lidocaine 4% Lidocaine Gel Solution,5% Lidocaine Gel Right Calf (cm) 31 31 Right Ankle (cm) 22 22 WC - Nurse 2 - General Ulcer CM Notes Start: 05/09/21 09:33 Freq: Status: Active Protocol: Activity Type Activity Date Activity User E-Sign Co-Sign Detail Recorded Client Recorded Date Recorded By Document 05/09/21 10:02 MW [id number] 05/09/21 10:11 MW Document 05/16/21 12:07 [address] [id number] 05/16/21 12:10 PL Document 05/23/21 09:52 MW [id number] 05/23/21 10:03 MW 05/09/21 05/16/21 05/23/21 10:02 12:07 09:52 Wound Center Nurse 2 #6 Right Lateral Lower extremity -Time 10:02 09:50 09:52 -Correct Patient Yes Yes Yes -Correct Side, Site, Position Yes Yes Yes -Correct Procedure Yes Yes Yes -Procedure Performed Yes Yes Yes -Type of Procedure Debridement Debridement Debridement -Clinical Debridement Subcutaneous Subcutaneous Subcutaneous -Tissue Removed Subcutaneous Subcutaneous Subcutaneous -Post Debridement (cm) - Length 2.5 2.7 2.5 -Post Debridement (cm) - Width 4.0 3.5 3.5 -Post Debridement (cm) - Depth 0.2 0.2 0.2 -Total Square (Post) (cm) 10.00 9.45 8.75 -Area of Debridement (cm) - Length 2.5 2.7 2.5 -Area of Debridement (cm) - Width 4.0 3.5 3.5 -Total Square (Area) (cm) 10.00 9.45 8.75 -Tunneling No No No -Undermining/Tunneling No No No -Circular Undermining No No No -Wound/Ulcer Outcome Not Healed Not Healed Not Healed -Ulcer Cleansing Rinsed/ Rinsed/ Rinsed/ Irrigated with Irrigated with Irrigated with Saline Saline Saline -Foul Odor after Cleansing No No No -Bioengineered Tissue No Yes Yes -Type of Bioengineered Tissue PuraPly AM PuraPly AM -Expiration Date 05/22/23 07/15/23 -Product Lot Number [id number] -Percent Used 100 100 -Lot number of Saline Used [id number] -Bleeding Controlled with Pressure Pressure Pressure -Offloading No No -Treatment Response Procedure Procedure Procedure Tolerated Well Tolerated Well Tolerated Well -Debridement - Subq, 1st 20sq cm Yes No No -Apply Skin Sub - 1st 25 sq cm - Legs 1 1 -PuraPly AM (per sq cm) 8 8 Pain Scale: 0-10 Numeric Is Patient Pain Free? Yes Yes - Nurse 3 - General Ulcer D/C NN Start: 05/09/21 09:33 Freq: Status: Active Protocol: Activity Type Activity Date Activity User E-Sign Co-Sign Detail Recorded Client Recorded Date Recorded By Document 05/09/21 12:01 AK [id number] 05/09/21 12:02 AK Document 05/16/21 10:11 KR [id number] 05/16/21 10:12 KR 05/09/21 05/16/21 12:01 10:11 Wound Care Nurse 3 #6 Right Lateral Lower extremity -Ulcer Cleansing Rinsed/ Irrigated with Saline -Foul Odor after Cleansing No -Negative Pressure Wound Therapy N/A -Primary Dressing Applied NonAdherent Aquacel Extra Contact Layer -Other Dressing Santyl -Primary Dressing Covered/Secured with Dry Gauze & Dry Gauze, Roll Gauze, Secured with Secured with Tape Tape -Aquacel Extra 1 Right -Compression Wrap Tk Wrap Pain Scale: 0-10 Numeric Is Patient Pain Free? Yes - Visit Discharge Discharge Condition Stable Stable Ambulatory Status Ambulatory, Walker Walker Transportation Private Auto Accompanied by son Medication Reconcilliation completed & No provided to patient/care provider Clinical Summary of Care Provided Yes Assessment/Plan Assessment/Plan (1) Infected wound: CODE(S): T14.8XXA - Other injury of unspecified body region, initial encounter; L08.9 - Local infection of the skin and subcutaneous tissue, unspecified PLAN: Continue start Flagyl 250 mg 3 times a day for 14 days Continue start Bactrim double strength 1 twice a day for 14 days (2) Nonhealing ulcer of right lower extremity: CODE(S): L97.919 - 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 QUALIFIERS: Non-pressure ulcer stage: with fat layer exposed Qualified Code(s): L97.912 - Non-pressure chronic ulcer of unspecified part of right lower leg with fat layer exposed PLAN: Puraply #2 applied to right lower leg ulcer moistened covered with wound veil and Aquacel padded and double layer Tubigrip Leave dressing alone no showering may only undressed down to the Steri-Strips if need to be changed Follow-up in 1 week (3) PVD (peripheral vascular disease): CODE(S): I73.9 - Peripheral vascular disease, unspecified
[2021-05-30 09:45] VITALS: BP 157/102; PULSE 84; RESP 18; TEMP 36.4
--- NOTE | 2021-05-30 12:44 | PCM.WC.PN ---
History of Present Illness Date of Service: 05/30/21 Chief Complaint: Nonhealing ulcer left lower extremity History of Wound: This is a 79-year-old white female known to me previously who was recently discharged from the [facility] in November 2018 who presents to the wound center today for nonhealing ulcer on her left lower extrtemity x 2 weeks. She has a past medical history which is significant for hypertension, venous insufficiency, vertigo and peripheral vascular disease. The patient has not been utilizing any intervention for wound care and has been wearing compression socks that are 15-20 mm Hg but has not been elevating her legs as much as she should. She denies any fever, chills, nausea, vomiting, shortness of breath, chest pain or pressure. Patient states she fell in her bathroom on [address] on and since then has had this open wound that will not heal. She is very touchy about having it debrided and touched. Progress of Wound: Right lateral lower leg still is cobblestone type wound with slough and protruding new cells. Patient was approved for puraply and we will try puraply #3 today. Wound has improved and is smaller on the puraply We also debrided with ultrasonic water that she seemed to tolerate better at cleaning the wound. Subjective Subjective Patient complains of less pain in her wound site area Objective Data Objective Data Right lateral lower leg ulcer is healing well starting to hyper granulated little bit in 1 section the superior area is healing the inferior area is deeper tolerating the puraply very well still gets some slough using the ultrasonic water helps a lot with cleaning patient tolerance is much better. We will continue with puraply Vital Signs: Vital Signs Temp Pulse Resp BP 97.6 F L 84 18 157/102 H 05/30/21 09:45 05/30/21 09:45 05/30/21 09:45 05/30/21 09:45 Lab / Micro Data Attestation: I reviewed the patient's lab results. Micro: Microbiology 05/09/21 10:10 Wound Abcess - Leg, Left Gram Stain - Final 05/09/21 10:10 Wound Abcess - Leg, Left Wound Culture - Final Staphylococcus lugdunensis#2 Staphylococcus lugdunensis Staphylococcus epidermidis 05/09/21 10:10 Wound Abcess - Leg, Left Anaerobic Culture - Final Anaerobic cocci Physical Exam Const oriented x3 General Appearance: cooperative Exam Limitations: no limitations HEENT normocephalic Head and Scalp: normal to inspection Face and Sinus: normal facial exam Nose: external nose normal General Ear: hearing grossly impaired External Ear: external ears normal Mouth: oral and palatal mucosa normal Eyes PERRL General Eye: normal appearance of both eyes Neck full ROM General: normal visual inspection Resp normal respiratory effort Effort and Inspection: able to speak in complete sentences Auscultation: clear to auscultation bilaterally Cardio regular rate and regular rhythm Palpation: normal PMI Rate: regular rate Rhythm: regular rhythm GI Auscultation: normoactive bowel sounds Palpation: soft and no hepatosplenomegaly external exam normal Extremity normal to inspection Extremity Narrative: Wound on her right lower extremity General Extremity: normal exam except as noted and edema Skin Wounds: wounds noted Wound Narrative: Open superficial wound with slough and some scabbing and in areas. Erythema around wound. Very tender to palpate area Neuro oriented x3 Psych Appearance: grossly normal Speech: normal speech Thought Content: normal thought content Judgement: judgement good Debridement Note Debridement Note Wound debrided: Right lateral lower leg Laterality: Right Type of Debridement: Excisional debridement Anesthesia Used: 5% Lidocaine Gel Depth: in the subcutaneous layer Percentage of wound debrided: 100 Instrument Used: - (Ultrasonic water for debridement) Tissue Removed: Slough and devitalized tissue Severity: Fat Layer Exposed Bleeding Controlled with: Compression and gauze Patient tolerated procedure: Patient tolerated procedure well Post-Debridement Measurements and Additional Note: Post-Debridement Measurements/Treatment WC - Nurse 1 - General Ulcer Assessment Start: 05/09/21 09:33 Freq: Status: Active Protocol: LUZ Activity Type Activity Date Activity User E-Sign Co-Sign Detail Recorded Client Recorded Date Recorded By Document 05/09/21 09:34 AK [id number] 05/09/21 09:35 AK Document 05/16/21 09:32 KR [id number] 05/16/21 09:34 KR Document 05/30/21 09:45 [facility] [id number] 05/30/21 09:54 BMF 05/09/21 05/16/21 05/30/21 09:34 09:32 09:45 - Today's Visit Information Type of service Follow-up Visit Follow-up Visit Follow-up Visit (Physician/FORENSIC TOXICOLOGIST (Physician/FORENSIC TOXICOLOGIST (Physician/FORENSIC TOXICOLOGIST ) ) ) Arrival Mode Ambulatory Ambulatory, Ambulatory Walker Transfer Assistance None Patient Identification Verified (Name & Yes Yes Yes ) Patient Requires Transmission-Based No No Precautions Safety Precautions NA Vital Signs Temperature (97.8 F-99.1 F) 97.7 F L 96.9 F L 97.6 F L Temperature Source Temporal Temporal Temporal Pulse Rate (60-100) 74 93 84 Pulse Location Monitor Monitor Monitor Respiratory Rate (12-18) 18 Respiratory rate source Observation Blood Pressure (90/60-120/80) 128/87 H 169/95 H 157/102 H Blood Pressure Mean (mm Hg) 100 119 120 Source Monitor Monitor Monitor Position Sitting Semi-Fowlers Blood Pressure Location Left Arm Right Arm History Since Last Visit- (Skip if this is Patient's initial visit) Have you changed medications since your No No No last visit? Any new allergies or adverse reactions No No No Had a fall/change in ADL's that may No No No increase risk of falls Signs or symptoms of abuse and/or No No No neglect since last visit Have you been in the hospital since your No No No last visit? Has dressing in place as prescribed Yes Yes Yes Has compression in place as prescribed Yes No No Has offloadiing in place as prescribed N/A N/A No Experienced any changes in pain level or No No No management Left Footwear Regular Shoe Regular Shoe Regular Shoe Right Footwear Regular Shoe Regular Shoe Regular Shoe Pain Scale: 0-10 Numeric Is Patient Pain Free? Yes Yes WC - Nurse 1 - General Ulcer Measurement Start: 05/09/21 09:33 Freq: Status: Active Protocol: Activity Type Activity Date Activity User E-Sign Co-Sign Detail Recorded Client Recorded Date Recorded By Document 05/09/21 09:34 AK [id number] 05/09/21 09:35 AK Document 05/16/21 09:32 KR [id number] 05/16/21 09:34 KR Document 05/30/21 09:45 BM [id number] 05/30/21 09:54 BMF 05/09/21 05/16/21 05/30/21 09:34 09:32 09:45 Wound Center Nurse 1 #6 Right Lateral Lower extremity -Combined with other wound No No -Current Size (cm) - Length 3 2.5 2.6 -Current Size (cm) - Width 4 3.5 3.8 -Current Size (cm) - Depth 0.1 0.2 0.1 -Total Square Cm 12 8.75 9.88 -Photo Taken No -Epithelialization None Present -Tunneling No No -Undermining/Tunneling No No -Circular Undermining No No -Exudate Amt Medium Medium Medium -Exudate Type Yellow/Green Serosanguineous Serosanguineous -Wound Margin Distinct, Distinct, Distinct, Outline Outline Outline Attached Attached Attached -Granulation Amt Small (1-33%) Medium (34-66%) -Granulation Quality Red [place] -Slough/Fibrin Yes Yes -Necrosis Amt Large (67-100%) Medium (34-66%) Large (67-100%) -Necrotic Tissue Type Adherent Slough Adherent Slough Adherent Slough -Structure Exposed N/A N/A -Texture (Kajal-wound Skin Appearance) Assessed, Assessed Scarring -Moisture (Kajal-wound Skin Appearance) Assessed, No Abnormality, Assessed Maceration Assessed -Color (Kajal-wound Skin Appearance) No Abnormality, Assessed, Assessed, Assessed Erythema Erythema, Hemosiderin Staining -Temperature (Kajal-wound Skin No Abnormality No Abnormality No Abnormality Appearance) (Pt Warm) (Pt Warm) (Pt Warm) -Tenderness on Palpation (Kajal-wound No No No Skin Appearance) -Ulcer Cleansing Rinsed/ Rinsed/ Wound Cleanser Irrigated with Irrigated with Saline Saline -Foul Odor after Cleansing No No No -Anesthetic Used 5% Lidocaine 4% Lidocaine 4% Lidocaine Gel Solution,5% Solution,5% Lidocaine Gel Lidocaine Gel Lower Limb Edema Present Yes Right Calf (cm) 31 31 31.2 Right Ankle (cm) 22 22 22.2 WC - Nurse 2 - General Ulcer CM Notes Start: 05/09/21 09:33 Freq: Status: Active Protocol: Activity Type Activity Date Activity User E-Sign Co-Sign Detail Recorded Client Recorded Date Recorded By Document 05/09/21 10:02 MW [id number] 05/09/21 10:11 MW Document 05/16/21 12:07 PL [id number] 05/16/21 12:10 PL Document 05/23/21 09:52 MW [id number] 05/23/21 10:03 MW Document 05/30/21 10:07 MW [id number] 05/30/21 10:23 MW 05/09/21 05/16/21 05/23/21 10:02 12:07 09:52 Wound Center Nurse 2 #6 Right Lateral Lower extremity -Time 10:02 09:50 09:52 -Correct Patient Yes Yes Yes -Correct Side, Site, Position Yes Yes Yes -Correct Procedure Yes Yes Yes -Procedure Performed Yes Yes Yes -Type of Procedure Debridement Debridement Debridement -Clinical Debridement Subcutaneous Subcutaneous Subcutaneous -Tissue Removed Subcutaneous Subcutaneous Subcutaneous -Post Debridement (cm) - Length 2.5 2.7 2.5 -Post Debridement (cm) - Width 4.0 3.5 3.5 -Post Debridement (cm) - Depth 0.2 0.2 0.2 -Total Square (Post) (cm) 10.00 9.45 8.75 -Area of Debridement (cm) - Length 2.5 2.7 2.5 -Area of Debridement (cm) - Width 4.0 3.5 3.5 -Total Square (Area) (cm) 10.00 9.45 8.75 -Tunneling No No No -Undermining/Tunneling No No No -Circular Undermining No No No -Wound/Ulcer Outcome Not Healed Not Healed Not Healed -Ulcer Cleansing Rinsed/ Rinsed/ Rinsed/ Irrigated with Irrigated with Irrigated with Saline Saline Saline -Foul Odor after Cleansing No No No -Bioengineered Tissue No Yes Yes -Type of Bioengineered Tissue PuraPly AM PuraPly AM -Expiration Date 05/22/23 07/15/23 -Product Lot Number [id number] -Percent Used 100 100 -Lot number of Saline Used [id number] -Bleeding Controlled with Pressure Pressure Pressure -Offloading No No -Treatment Response Procedure Procedure Procedure Tolerated Well Tolerated Well Tolerated Well -Debridement - Subq, 1st 20sq cm Yes No No -Apply Skin Sub - 1st 25 sq cm - Legs 1 1 -PuraPly AM (per sq cm) 8 8 Pain Scale: 0-10 Numeric Is Patient Pain Free? Yes Yes 05/30/21 10:07 Wound Center Nurse 2 #6 Right Lateral Lower extremity -Time 10:08 -Correct Patient Yes -Correct Side, Site, Position Yes -Correct Procedure Yes -Procedure Performed Yes -Type of Procedure Debridement -Clinical Debridement Subcutaneous -Tissue Removed Subcutaneous -Post Debridement (cm) - Length 2.5 -Post Debridement (cm) - Width 3.3 -Post Debridement (cm) - Depth 0.2 -Total Square (Post) (cm) 8.25 -Area of Debridement (cm) - Length 2.5 -Area of Debridement (cm) - Width 3.3 -Total Square (Area) (cm) 8.25 -Tunneling No -Undermining/Tunneling No -Circular Undermining No -Wound/Ulcer Outcome Not Healed -Ulcer Cleansing Rinsed/ Irrigated with Saline -Foul Odor after Cleansing No -Bioengineered Tissue Yes -Type of Bioengineered Tissue PuraPly AM -Expiration Date 08/07/23 -Product Lot Number [id number] -Percent Used 100 -Lot number of Saline Used [id number] -Bleeding Controlled with Pressure -Offloading No -Treatment Response Procedure Tolerated Well -Debridement - Subq, 1st 20sq cm Yes -Apply Skin Sub - 1st 25 sq cm - Legs -PuraPly AM (per sq cm) 8 Pain Scale: 0-10 Numeric Is Patient Pain Free? Yes WC - Nurse 3 - General Ulcer D/C NN Start: 05/09/21 09:33 Freq: Status: Active Protocol: Activity Type Activity Date Activity User E-Sign Co-Sign Detail Recorded Client Recorded Date Recorded By Document 05/09/21 12:01 AK [id number] 05/09/21 12:02 AK Document 05/16/21 10:11 KR [id number] 05/16/21 10:12 KR Document 05/30/21 10:27 RB [id number] 05/30/21 10:28 RB 05/09/21 05/16/21 05/30/21 12:01 10:11 10:27 Wound Care Nurse 3 #6 Right Lateral Lower extremity -Ulcer Cleansing Rinsed/ Irrigated with Saline -Foul Odor after Cleansing No -Negative Pressure Wound Therapy N/A -Primary Dressing Applied NonAdherent Aquacel Extra Aquacel Extra Contact Layer -Other Dressing Santyl -Primary Dressing Covered/Secured with Dry Gauze & Dry Gauze, Dry Gauze,Dry Roll Gauze, Secured with Gauze & Roll Secured with Tape Gauze,Secured Tape with Tape -Aquacel Extra 1 1 Right -Compression Wrap Tk Wrap -Other double layer d tubigrip then tk Treatment Response Procedure Tolerated Well Pain Scale: 0-10 Numeric Is Patient Pain Free? Yes Yes WC - Visit Discharge Discharge Condition Stable Stable Stable Ambulatory Status Ambulatory, Walker Ambulatory, Walker Walker Transportation Private Auto Private Auto Accompanied by son Medication Reconcilliation completed & No No provided to patient/care provider Clinical Summary of Care Provided Yes Yes Assessment/Plan Assessment/Plan (1) Infected wound: CODE(S): T14.8XXA - Other injury of unspecified body region, initial encounter; L08.9 - Local infection of the skin and subcutaneous tissue, unspecified PLAN: Continue start Flagyl 250 mg 3 times a day for 14 days Continue start Bactrim double strength 1 twice a day for 14 days (2) Nonhealing ulcer of right lower extremity: CODE(S): L97.919 - 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 QUALIFIERS: Non-pressure ulcer stage: with fat layer exposed Qualified Code(s): L97.912 - Non-pressure chronic ulcer of unspecified part of right lower leg with fat layer exposed PLAN: Puraply #3 applied to right lower leg ulcer moistened covered with wound veil and Aquacel padded and double layer Tubigrip Leave dressing alone no showering may only undressed down to the Steri-Strips if need to be changed Follow-up in 1 week (3) PVD (peripheral vascular disease): CODE(S): I73.9 - Peripheral vascular disease, unspecified
[2021-06-06 09:22] VITALS: BP 164/97; PULSE 87; RESP 16; TEMP 37.7
--- NOTE | 2021-06-06 12:08 | PCM.WC.PN ---
History of Present Illness Date of Service: 06/06/21 Chief Complaint: Nonhealing ulcer left lower extremity History of Wound: This is a 79-year-old white female known to me previously who was recently discharged from the [facility] in November 2018 who presents to the wound center today for nonhealing ulcer on her left lower extrtemity x 2 weeks. She has a past medical history which is significant for hypertension, venous insufficiency, vertigo and peripheral vascular disease. The patient has not been utilizing any intervention for wound care and has been wearing compression socks that are 15-20 mm Hg but has not been elevating her legs as much as she should. She denies any fever, chills, nausea, vomiting, shortness of breath, chest pain or pressure. Patient states she fell in her bathroom on [address] on and since then has had this open wound that will not heal. She is very touchy about having it debrided and touched. Progress of Wound: Wound is much improved with the puraply's today we will go to new shield we were able to wash out most of the slough with the ultrasonic water washes .Right lateral lower leg still is cobblestone type wound which is filling in well with new tissue. This week we applied a new shield to the wound base to hopefully close her up in the next couple of weeks applications. Her measurements are smaller Subjective Subjective Patient denies any pain is tolerant better to the debridement with the ultrasonic water Objective Data Objective Data As above the wound is smaller filling in nicely with new tissue switched her over to new shield as a skin application Vital Signs: Vital Signs Temp Pulse Resp BP 99.9 F H 87 16 164/97 H 06/06/21 09:22 06/06/21 09:22 06/06/21 09:22 06/06/21 09:22 Oxygen Delivery Method Room Air Lab / Micro Data Micro: Microbiology 05/09/21 10:10 Wound Abcess - Leg, Left Gram Stain - Final 05/09/21 10:10 Wound Abcess - Leg, Left Wound Culture - Final Staphylococcus lugdunensis#2 Staphylococcus lugdunensis Staphylococcus epidermidis 05/09/21 10:10 Wound Abcess - Leg, Left Anaerobic Culture - Final Anaerobic cocci Physical Exam Const oriented x3 General Appearance: cooperative Exam Limitations: no limitations HEENT normocephalic Head and Scalp: normal to inspection Face and Sinus: normal facial exam Nose: external nose normal General Ear: hearing grossly impaired External Ear: external ears normal Mouth: oral and palatal mucosa normal Eyes PERRL General Eye: normal appearance of both eyes Neck full ROM General: normal visual inspection Resp normal respiratory effort Effort and Inspection: able to speak in complete sentences Auscultation: clear to auscultation bilaterally Cardio regular rate and regular rhythm Palpation: normal PMI Rate: regular rate Rhythm: regular rhythm GI Auscultation: normoactive bowel sounds Palpation: soft and no hepatosplenomegaly external exam normal Extremity normal to inspection Extremity Narrative: Wound on her right lower extremity General Extremity: normal exam except as noted and edema Skin Wounds: wounds noted Wound Narrative: Open superficial wound with slough and some scabbing and in areas. Erythema around wound. Very tender to palpate area Neuro oriented x3 Psych Appearance: grossly normal Speech: normal speech Thought Content: normal thought content Judgement: judgement good Debridement Note Debridement Note Wound debrided: Right lateral lower leg ulcer Type of Debridement: Excisional debridement Anesthesia Used: 5% Lidocaine Gel Depth: Down to and including healthy tissue Percentage of wound debrided: 100 Instrument Used: - (Ultrasound WaterPik to debride) Tissue Removed: Slough and fibrin Severity: Limited To Skin Breakdown Amount of bleeding with debridement: Mild Bleeding Controlled with: Compression and gauze Patient tolerated procedure: Patient tolerated procedure well Post-Debridement Measurements and Additional Note: Post-Debridement Measurements/Treatment - Nurse 1 - General Ulcer Assessment Start: 05/09/21 09:33 Freq: Status: Active Protocol: LUZ Activity Type Activity Date Activity User E-Sign Co-Sign Detail Recorded Client Recorded Date Recorded By Document 05/09/21 09:34 AK [id number] 05/09/21 09:35 AK Document 05/16/21 09:32 KR [id number] 05/16/21 09:34 KR Document 05/30/21 09:45 [facility] [id number] 05/30/21 09:54 BM Document 06/06/21 09:22 BM [id number] 06/06/21 09:36 BMF 05/09/21 05/16/21 05/30/21 09:34 09:32 09:45 - Today's Visit Information Type of service Follow-up Visit Follow-up Visit Follow-up Visit (Physician/COMMUNITY SERVICE REPRESENTATIVE (Physician/COMMUNITY SERVICE REPRESENTATIVE (Physician/COMMUNITY SERVICE REPRESENTATIVE ) ) ) Arrival Mode Ambulatory Ambulatory, Ambulatory Walker Transfer Assistance None Patient Identification Verified (Name & Yes Yes Yes ) Patient Requires Transmission-Based No No Precautions Safety Precautions NA Vital Signs Temperature (97.8 F-99.1 F) 97.7 F L 96.9 F L 97.6 F L Temperature Source Temporal Temporal Temporal Pulse Rate (60-100) 74 93 84 Pulse Location Monitor Monitor Monitor Respiratory Rate (12-18) 18 Respiratory rate source Observation Oxygen Delivery Method Blood Pressure (90/60-120/80) 128/87 H 169/95 H 157/102 H Blood Pressure Mean (mm Hg) 100 119 120 Source Monitor Monitor Monitor Position Sitting Semi-Fowlers Blood Pressure Location Left Arm Right Arm Comment History Since Last Visit- (Skip if this is Patient's initial visit) Have you changed medications since your No No No last visit? Any new allergies or adverse reactions No No No Had a fall/change in ADL's that may No No No increase risk of falls Signs or symptoms of abuse and/or No No No neglect since last visit Have you been in the hospital since your No No No last visit? Has dressing in place as prescribed Yes Yes Yes Has compression in place as prescribed Yes No No Has offloadiing in place as prescribed N/A N/A No Experienced any changes in pain level or No No No management Left Footwear Regular Shoe Regular Shoe Regular Shoe Right Footwear Regular Shoe Regular Shoe Regular Shoe Pain Scale: 0-10 Numeric Is Patient Pain Free? Yes Yes 06/06/21 09:22 - Today's Visit Information Type of service Follow-up Visit (Physician/COMMUNITY SERVICE REPRESENTATIVE ) Arrival Mode Ambulatory, Walker Transfer Assistance None Patient Identification Verified (Name & Yes ) Patient Requires Transmission-Based No Precautions Safety Precautions Vital Signs Temperature (97.8 F-99.1 F) 99.9 F H Temperature Source Temporal Pulse Rate (60-100) 87 Pulse Location Monitor Respiratory Rate (12-18) 16 Respiratory rate source Observation Oxygen Delivery Method Room Air Blood Pressure (90/60-120/80) 164/97 H Blood Pressure Mean (mm Hg) 119 Source Monitor Position Sitting Blood Pressure Location Right Arm Comment CM NOTIFIED OF LOW GRADE TEMP History Since Last Visit- (Skip if this is Patient's initial visit) Have you changed medications since your No last visit? Any new allergies or adverse reactions No Had a fall/change in ADL's that may No increase risk of falls Signs or symptoms of abuse and/or No neglect since last visit Have you been in the hospital since your No last visit? Has dressing in place as prescribed Yes Has compression in place as prescribed Yes Has offloadiing in place as prescribed N/A Experienced any changes in pain level or No management Left Footwear Regular Shoe Right Footwear Regular Shoe Pain Scale: 0-10 Numeric Is Patient Pain Free? Yes WC - Nurse 1 - General Ulcer Measurement Start: 05/09/21 09:33 Freq: Status: Active Protocol: Activity Type Activity Date Activity User E-Sign Co-Sign Detail Recorded Client Recorded Date Recorded By Document 05/09/21 09:34 AK [id number] 05/09/21 09:35 AK Document 05/16/21 09:32 KR [id number] 05/16/21 09:34 KR Document 05/30/21 09:45 [facility] [id number] 05/30/21 09:54 BMF Document 06/06/21 09:22 BM [id number] 06/06/21 09:36 BMF 05/09/21 05/16/21 05/30/21 09:34 09:32 09:45 Wound Center Nurse 1 #6 Right Lateral Lower extremity -Combined with other wound No No -Current Size (cm) - Length 3 2.5 2.6 -Current Size (cm) - Width 4 3.5 3.8 -Current Size (cm) - Depth 0.1 0.2 0.1 -Total Square Cm 12 8.75 9.88 -Photo Taken No -Epithelialization None Present -Tunneling No No -Undermining/Tunneling No No -Circular Undermining No No -Exudate Amt Medium Medium Medium -Exudate Type Yellow/Green Serosanguineous Serosanguineous -Wound Margin Distinct, Distinct, Distinct, Outline Outline Outline Attached Attached Attached -Granulation Amt Small (1-33%) Medium (34-66%) -Granulation Quality Red [place] -Slough/Fibrin Yes Yes -Necrosis Amt Large (67-100%) Medium (34-66%) Large (67-100%) -Necrotic Tissue Type Adherent Slough Adherent Slough Adherent Slough -Structure Exposed N/A N/A -Texture (Kajal-wound Skin Appearance) Assessed, Assessed Scarring -Moisture (Kajal-wound Skin Appearance) Assessed, No Abnormality, Assessed Maceration Assessed -Color (Kajal-wound Skin Appearance) No Abnormality, Assessed, Assessed, Assessed Erythema Erythema, Hemosiderin Staining -Temperature (Kajal-wound Skin No Abnormality No Abnormality No Abnormality Appearance) (Pt Warm) (Pt Warm) (Pt Warm) -Tenderness on Palpation (Kajal-wound No No No Skin Appearance) -Ulcer Cleansing Rinsed/ Rinsed/ Wound Cleanser Irrigated with Irrigated with Saline Saline -Foul Odor after Cleansing No No No -Anesthetic Used 5% Lidocaine 4% Lidocaine 4% Lidocaine Gel Solution,5% Solution,5% Lidocaine Gel Lidocaine Gel Lower Limb Edema Present Yes Right Calf (cm) 31 31 31.2 Right Ankle (cm) 22 22 22.2 06/06/21 09:22 Wound Center Nurse 1 #6 Right Lateral Lower extremity -Combined with other wound No -Current Size (cm) - Length 2 -Current Size (cm) - Width 3.3 -Current Size (cm) - Depth 0.1 -Total Square Cm 6.6 -Photo Taken No -Epithelialization Small 1-33% -Tunneling No -Undermining/Tunneling No -Circular Undermining No -Exudate Amt Medium -Exudate Type Serous -Wound Margin Distinct, Outline Attached -Granulation Amt Medium (34-66%) -Granulation Quality Hyper- granulation,Red -Slough/Fibrin Yes -Necrosis Amt Medium (34-66%) -Necrotic Tissue Type Adherent Slough -Structure Exposed -Texture (Kajal-wound Skin Appearance) Assessed, Excoriation, Scarring -Moisture (Kajal-wound Skin Appearance) Assessed, Maceration,Dry/ Scaly -Color (Kajal-wound Skin Appearance) Assessed, Erythema -Temperature (Kajal-wound Skin No Abnormality Appearance) (Pt Warm) -Tenderness on Palpation (Kajal-wound Yes Skin Appearance) -Ulcer Cleansing Soap and Water -Foul Odor after Cleansing No -Anesthetic Used 5% Lidocaine Gel Lower Limb Edema Present Right Calf (cm) 30.3 Right Ankle (cm) 21.6 WC - Nurse 2 - General Ulcer CM Notes Start: 05/09/21 09:33 Freq: Status: Active Protocol: Activity Type Activity Date Activity User E-Sign Co-Sign Detail Recorded Client Recorded Date Recorded By Document 05/09/21 10:02 MW [id number] 05/09/21 10:11 MW Document 05/16/21 12:07 PL [id number] 05/16/21 12:10 PL Document 05/23/21 09:52 MW [id number] 05/23/21 10:03 MW Document 05/30/21 10:07 MW [id number] 05/30/21 10:23 MW Edit Result 05/30/21 10:07 MW (1) [id number] 05/31/21 08:41 PL Edit Result 05/30/21 10:07 MW (2) [id number] 05/31/21 08:52 PL Document 06/06/21 09:49 MW [id number] 06/06/21 09:57 MW (1) #6 Right Lateral Lower extremity - Debridement - Subq, 1st 20sq cm Yes => No (2) #6 Right Lateral Lower extremity - Apply Skin Sub - 1st 25 sq cm - Legs => 1 05/09/21 05/16/21 05/23/21 10:02 12:07 09:52 Wound Center Nurse 2 #6 Right Lateral Lower extremity -Time 10:02 09:50 09:52 -Correct Patient Yes Yes Yes -Correct Side, Site, Position Yes Yes Yes -Correct Procedure Yes Yes Yes -Procedure Performed Yes Yes Yes -Type of Procedure Debridement Debridement Debridement -Clinical Debridement Subcutaneous Subcutaneous Subcutaneous -Tissue Removed Subcutaneous Subcutaneous Subcutaneous -Post Debridement (cm) - Length 2.5 2.7 2.5 -Post Debridement (cm) - Width 4.0 3.5 3.5 -Post Debridement (cm) - Depth 0.2 0.2 0.2 -Total Square (Post) (cm) 10.00 9.45 8.75 -Area of Debridement (cm) - Length 2.5 2.7 2.5 -Area of Debridement (cm) - Width 4.0 3.5 3.5 -Total Square (Area) (cm) 10.00 9.45 8.75 -Tunneling No No No -Undermining/Tunneling No No No -Circular Undermining No No No -Wound/Ulcer Outcome Not Healed Not Healed Not Healed -Ulcer Cleansing Rinsed/ Rinsed/ Rinsed/ Irrigated with Irrigated with Irrigated with Saline Saline Saline -Foul Odor after Cleansing No No No -Bioengineered Tissue No Yes Yes -Type of Bioengineered Tissue PuraPly AM PuraPly AM -Expiration Date 05/22/23 07/15/23 -Product Lot Number [id number] -Percent Used 100 100 -Lot number of Saline Used [id number] -Bleeding Controlled with Pressure Pressure Pressure -Offloading No No -Treatment Response Procedure Procedure Procedure Tolerated Well Tolerated Well Tolerated Well -Debridement - Subq, 1st 20sq cm Yes No No -Apply Skin Sub - 1st 25 sq cm - Legs 1 1 -NuShield (per sq cm) -PuraPly AM (per sq cm) 8 8 Pain Scale: 0-10 Numeric Is Patient Pain Free? Yes Yes 05/30/21 06/06/21 10:07 09:49 Wound Center Nurse 2 #6 Right Lateral Lower extremity -Time 10:08 09:49 -Correct Patient Yes Yes -Correct Side, Site, Position Yes Yes -Correct Procedure Yes Yes -Procedure Performed Yes Yes -Type of Procedure Debridement Debridement -Clinical Debridement Subcutaneous Subcutaneous -Tissue Removed Subcutaneous Subcutaneous -Post Debridement (cm) - Length 2.5 1.8 -Post Debridement (cm) - Width 3.3 2.5 -Post Debridement (cm) - Depth 0.2 0.2 -Total Square (Post) (cm) 8.25 4.50 -Area of Debridement (cm) - Length 2.5 1.8 -Area of Debridement (cm) - Width 3.3 2.5 -Total Square (Area) (cm) 8.25 4.50 -Tunneling No No -Undermining/Tunneling No No -Circular Undermining No No -Wound/Ulcer Outcome Not Healed Not Healed -Ulcer Cleansing Rinsed/ Rinsed/ Irrigated with Irrigated with Saline Saline -Foul Odor after Cleansing No No -Bioengineered Tissue Yes Yes -Type of Bioengineered Tissue PuraPly AM NuShield -Expiration Date 08/07/23 04/02/24 -Product Lot Number [id number] -[id number] -Percent Used 100 100 -Lot number of Saline Used [id number] -Bleeding Controlled with Pressure Pressure -Offloading No No -Treatment Response Procedure Procedure Tolerated Well Tolerated Well -Debridement - Subq, 1st 20sq cm No No -Apply Skin Sub - 1st 25 sq cm - Legs 1 1 -NuShield (per sq cm) 12 -PuraPly AM (per sq cm) 8 Pain Scale: 0-10 Numeric Is Patient Pain Free? Yes Yes - Nurse 3 - General Ulcer D/C NN Start: 05/09/21 09:33 Freq: Status: Active Protocol: Activity Type Activity Date Activity User E-Sign Co-Sign Detail Recorded Client Recorded Date Recorded By Document 05/09/21 12:01 AK [id number] 05/09/21 12:02 AK Document 05/16/21 10:11 KR [id number] 05/16/21 10:12 KR Document 05/30/21 10:27 RB [id number] 05/30/21 10:28 RB Document 06/06/21 10:00 [facility] [id number] 06/06/21 10:03 BMF 05/09/21 05/16/21 05/30/21 12:01 10:11 10:27 Wound Care Nurse 3 #6 Right Lateral Lower extremity -Ulcer Cleansing Rinsed/ Irrigated with Saline -Foul Odor after Cleansing No -Negative Pressure Wound Therapy N/A -Primary Dressing Applied NonAdherent Aquacel Extra Aquacel Extra Contact Layer -Other Dressing Santyl -Primary Dressing Covered/Secured with Dry Gauze & Dry Gauze, Dry Gauze,Dry Roll Gauze, Secured with Gauze & Roll Secured with Tape Gauze,Secured Tape with Tape -Other Covering -Aquacel Extra 1 1 -Aquacel AG 4x4 Right -Compression Wrap Tk Wrap -Other double layer d tubigrip then tk Treatment Response Procedure Tolerated Well Pain Scale: 0-10 Numeric Is Patient Pain Free? Yes Yes - Visit Discharge Discharge Condition Stable Stable Stable Ambulatory Status Ambulatory, Walker Ambulatory, Walker Walker Transportation Private Auto Private Auto Accompanied by son Medication Reconcilliation completed & No No provided to patient/care provider Clinical Summary of Care Provided Yes Yes 06/06/21 10:00 Wound Care Nurse 3 #6 Right Lateral Lower extremity -Ulcer Cleansing -Foul Odor after Cleansing -Negative Pressure Wound Therapy -Primary Dressing Applied Aquacel AG 4x4 -Other Dressing [facility] -Primary Dressing Covered/Secured with Dry Gauze & Roll Gauze, Secured with Tape -Other Covering TESSA BERNAL RN -Aquacel Extra -Aquacel AG 4x4 1 Right -Compression Wrap -Other OWN DOUBLE LAYER TUBI APPLIED Treatment Response Procedure Tolerated Well Pain Scale: 0-10 Numeric Is Patient Pain Free? Yes WC - Visit Discharge Discharge Condition Stable Ambulatory Status Ambulatory, Walker Transportation Private Auto Accompanied by Medication Reconcilliation completed & provided to patient/care provider Clinical Summary of Care Provided Assessment/Plan Assessment/Plan (1) Nonhealing ulcer of right lower extremity: CODE(S): L97.919 - 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 QUALIFIERS: Non-pressure ulcer stage: with fat layer exposed Qualified Code(s): L97.912 - Non-pressure chronic ulcer of unspecified part of right lower leg with fat layer exposed PLAN: Applied new shield #4 to the right lower leg covered with wound veil and Steri-Strips and Aquacel extra over top dry dressing applied (2) PVD (peripheral vascular disease): CODE(S): I73.9 - Peripheral vascular disease, unspecified
== END 2021-06-08 23:59 ==
LOC: WC 09:30
PROVIDERS: PCP Student in an Organized Health Care Education/Training Program; Visit Provider Nurse Practitioner
DX: L97.312 Non-pressure chronic ulcer of right ankle with fat layer exposed (principal); L08.9 Local infection of the skin and subcutaneous tissue, unspecified; I87.2 Venous insufficiency (chronic) (peripheral); I73.9 Peripheral vascular disease, unspecified; I10 Essential (primary) hypertension; Z79.02 Long term (current) use of antithrombotics/antiplatelets; Z79.899 Other long term (current) drug therapy
CPT/HCPCS: 11042; 15271; 87070; 87075; 87077; 87186; 87205; Q4160; Q4196

== ENCOUNTER 2021-06-27 09:30 | Outpatient (RCR) | payer MEDICARE, MEDICAID, SELFPAY ==
[2021-06-09 00:12] VITALS: BP 164/97; PULSE 87; RESP 16; TEMP 37.7
[2021-06-15 08:55] VITALS: BP 147/90; PULSE 79; RESP 18; TEMP 36.7
--- NOTE | 2021-06-15 13:12 | PCM.WC.PN ---
History of Present Illness Date of Service: 06/15/21 Chief Complaint: Nonhealing ulcer left lower extremity History of Wound: This is a 79-year-old white female known to me previously who was recently discharged from the [facility] in November 2018 who presents to the wound center today for nonhealing ulcer on her left lower extrtemity x 2 weeks. She has a past medical history which is significant for hypertension, venous insufficiency, vertigo and peripheral vascular disease. The patient has not been utilizing any intervention for wound care and has been wearing compression socks that are 15-20 mm Hg but has not been elevating her legs as much as she should. She denies any fever, chills, nausea, vomiting, shortness of breath, chest pain or pressure. Patient states she fell in her bathroom on [address] on and since then has had this open wound that will not heal. She is very touchy about having it debrided and touched. Subjective Subjective Ely is seen today as a courtesy visit for Silke Spring CNP. Ely is doing well and tolerated application of Nushield with improvement in the size of her ulcer. She denies fever, chills, increased drainage or odor. Objective Data Objective Data Vital Signs: Vital Signs Temp Pulse Resp BP 98.1 F 79 18 147/90 H 06/15/21 08:55 06/15/21 08:55 06/15/21 08:55 06/15/21 08:55 Physical Exam Const alert, oriented x3 and no apparent distress General Appearance: cooperative and comfortable HEENT normocephalic and head/scalp atraumatic Resp normal respiratory effort Skin General Skin Exam: venous stasis Wounds: wounds noted Wound Narrative: as in clinical panel Psych mental status grossly normal and thought process normal Debridement Note Debridement Note Wound debrided: right lateral lower extremity Laterality: Right Post-Debridement Measurements and Additional Note: Post-Debridement Measurements/Treatment JACK - Nurse 1 - General Ulcer Assessment Start: 06/15/21 08:55 Freq: Status: Active Protocol: LUZ Activity Type Activity Date Activity User E-Sign Co-Sign Detail Recorded Client Recorded Date Recorded By Document 06/15/21 08:55 DL [id number] 06/15/21 09:03 DL 06/15/21 08:55 JACK - Today's Visit Information Type of service Follow-up Visit (Physician/PAPER CONE GRADER ) Arrival Mode Ambulatory, Walker Transfer Assistance None Patient Identification Verified (Name & Yes ) Vital Signs Temperature (97.8 F-99.1 F) 98.1 F Temperature Source Temporal Pulse Rate (60-100) 79 Pulse Location Monitor Respiratory Rate (12-18) 18 Respiratory rate source Observation Blood Pressure (90/60-120/80) 147/90 H Blood Pressure Mean (mm Hg) 109 Source Monitor History Since Last Visit- (Skip if this is Patient's initial visit) Have you changed medications since your No last visit? Any new allergies or adverse reactions No Had a fall/change in ADL's that may No increase risk of falls Signs or symptoms of abuse and/or No neglect since last visit Have you been in the hospital since your No last visit? Has dressing in place as prescribed No Has compression in place as prescribed Yes Has offloadiing in place as prescribed N/A Experienced any changes in pain level or No management Left Footwear Regular Shoe Right Footwear Regular Shoe Pain Scale: 0-10 Numeric Is Patient Pain Free? Yes WC - Nurse 1 - General Ulcer Measurement Start: 06/15/21 08:55 Freq: Status: Active Protocol: Activity Type Activity Date Activity User E-Sign Co-Sign Detail Recorded Client Recorded Date Recorded By Document 06/15/21 08:55 [id number] 06/15/21 09:03 DL 06/15/21 08:55 Wound Center Nurse 1 #6 Right Lateral Lower extremity -Current Size (cm) - Length 1.3 -Current Size (cm) - Width 2 -Current Size (cm) - Depth 0.1 -Total Square Cm 2.6 -Photo Taken No -Exudate Amt Small -Exudate Type Serosanguineous -Wound Margin Distinct, Outline Attached -Granulation Amt Medium (34-66%) -Granulation Quality Red -Necrosis Amt Medium (34-66%) -Necrotic Tissue Type Adherent Slough -Structure Exposed N/A -Texture (Kajal-wound Skin Appearance) Scarring -Moisture (Kajal-wound Skin Appearance) No Abnormality -Color (Kajal-wound Skin Appearance) No Abnormality -Temperature (Kajal-wound Skin No Abnormality Appearance) (Pt Warm) -Tenderness on Palpation (Kajal-wound No Skin Appearance) -Ulcer Cleansing Soap and Water -Foul Odor after Cleansing Yes, Due to Product Use -Anesthetic Used 4% Lidocaine Solution Right Calf (cm) 30 Right Ankle (cm) 19.6 WC - Nurse 2 - General Ulcer CM Notes Start: 06/15/21 08:55 Freq: Status: Active Protocol: Activity Type Activity Date Activity User E-Sign Co-Sign Detail Recorded Client Recorded Date Recorded By Document 06/15/21 09:40 MW [id number] 06/15/21 09:50 MW 06/15/21 09:40 Wound Center Nurse 2 #6 Right Lateral Lower extremity -Time 09:40 -Correct Patient Yes -Correct Side, Site, Position Yes -Correct Procedure Yes -Procedure Performed Yes -Type of Procedure Debridement -Clinical Debridement Subcutaneous -Tissue Removed Subcutaneous -Post Debridement (cm) - Length 1.5 -Post Debridement (cm) - Width 1.5 -Post Debridement (cm) - Depth 0.2 -Total Square (Post) (cm) 2.25 -Area of Debridement (cm) - Length 1.5 -Area of Debridement (cm) - Width 1.5 -Total Square (Area) (cm) 2.25 -Tunneling No -Undermining/Tunneling No -Circular Undermining No -Wound/Ulcer Outcome Not Healed -Ulcer Cleansing Rinsed/ Irrigated with Saline -Foul Odor after Cleansing No -Bioengineered Tissue Yes -Type of Bioengineered Tissue NuShield -Expiration Date 04/01/24 -Product Lot Number [id number] -Percent Used 50 -Lot number of Saline Used [id number] -Bleeding Controlled with Pressure -Offloading No -Treatment Response Procedure Tolerated Well -Debridement - Subq, 1st 20sq cm Yes -Apply Skin Sub - 1st 25 sq cm - Legs 1 -NuShield (per sq cm) 12 Pain Scale: 0-10 Numeric Is Patient Pain Free? Yes WC - Nurse 3 - General Ulcer D/C NN Start: 06/15/21 08:55 Freq: Status: Active Protocol: Activity Type Activity Date Activity User E-Sign Co-Sign Detail Recorded Client Recorded Date Recorded By Document 06/15/21 10:53 RB [id number] 06/15/21 10:56 RB 06/15/21 10:53 Wound Care Nurse 3 #6 Right Lateral Lower extremity -Primary Dressing Covered/Secured with Dry Gauze,Dry Gauze & Roll Gauze,Secured with Tape Right -Other double layer tubigrip Treatment Response Procedure Tolerated Well Pain Scale: 0-10 Numeric Is Patient Pain Free? Yes WC - Visit Discharge Discharge Condition Stable Ambulatory Status Ambulatory, Walker Transportation Private Auto Medication Reconcilliation completed & No provided to patient/care provider Clinical Summary of Care Provided Yes Assessment/Plan Assessment/Plan (1) Nonhealing ulcer of right lower extremity: CODE(S): L97.919 - 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 QUALIFIERS: Non-pressure ulcer stage: with fat layer exposed Qualified Code(s): L97.912 - Non-pressure chronic ulcer of unspecified part of right lower leg with fat layer exposed (2) Hypertension: CODE(S): I10 - Essential (primary) hypertension QUALIFIERS: Hypertension type: unspecified Qualified Code(s): I10 - Essential (primary) hypertension (3) PVD (peripheral vascular disease): CODE(S): I73.9 - Peripheral vascular disease, unspecified (4) Bilateral lower extremity edema: CODE(S): R60.0 - Localized edema PLAN: Applied new shield #5 to the right lower leg rehydrated with collagen hydrogel and covered with wound veil and Steri-Strips and cover with gauze. She will return on Friday to see Silke Spring CNP. Call if increased pain, drainage, fever or chills.
[2021-06-27 09:26] VITALS: BP 150/83; PULSE 78; TEMP 36.8
--- NOTE | 2021-06-27 12:41 | PCM.WC.PN ---
History of Present Illness Date of Service: 06/27/21 Chief Complaint: Nonhealing ulcer left lower extremity History of Wound: This is a 79-year-old white female known to me previously who was recently discharged from the [facility] in November 2018 who presents to the wound center today for nonhealing ulcer on her left lower extrtemity x 2 weeks. She has a past medical history which is significant for hypertension, venous insufficiency, vertigo and peripheral vascular disease. The patient has not been utilizing any intervention for wound care and has been wearing compression socks that are 15-20 mm Hg but has not been elevating her legs as much as she should. She denies any fever, chills, nausea, vomiting, shortness of breath, chest pain or pressure. Patient states she fell in her bathroom on [address] on and since then has had this open wound that will not heal. She is very touchy about having it debrided and touched. Progress of Wound: Right lateral lower leg is healed now patient will be discharged from the wound center Subjective Subjective Patient is happy Objective Data Objective Data Right lateral lower leg is healed patient received 5 new shield and did very well. Vital Signs: Vital Signs Temp Pulse Resp BP 98.2 F 78 18 150/83 H 06/27/21 09:26 06/27/21 09:26 06/15/21 08:55 06/27/21 09:26 Lab / Micro Data Attestation: I reviewed the patient's lab results. Physical Exam Const alert, oriented x3 and no apparent distress General Appearance: cooperative and comfortable HEENT normocephalic and head/scalp atraumatic Resp normal respiratory effort Skin General Skin Exam: venous stasis Wounds: wounds noted Wound Narrative: as in clinical panel Psych mental status grossly normal and thought process normal Debridement Note Debridement Note Wound debrided: Right lateral lower leg No debridement was completed: No debridement was completed today Post-Debridement Measurements and Additional Note: Post-Debridement Measurements/Treatment WC - Nurse 1 - General Ulcer Assessment Start: 06/15/21 08:55 Freq: Status: Active Protocol: LUZ Activity Type Activity Date Activity User E-Sign Co-Sign Detail Recorded Client Recorded Date Recorded By Document 06/15/21 08:55 DL [id number] 06/15/21 09:03 DL Document 06/27/21 09:26 AK [id number] 06/27/21 09:30 [place] 06/15/21 06/27/21 08:55 09:26 - Today's Visit Information Type of service Follow-up Visit Follow-up Visit (Physician/WOMEN SPECIALIST (Physician/WOMEN SPECIALIST ) ) Arrival Mode Ambulatory, Ambulatory, Walker Walker Transfer Assistance None Patient Identification Verified (Name & Yes Yes ) Patient Requires Transmission-Based No Precautions Safety Precautions NA Vital Signs Temperature (97.8 F-99.1 F) 98.1 F 98.2 F Temperature Source Temporal Temporal Pulse Rate (60-100) 79 78 Pulse Location Monitor Monitor Respiratory Rate (12-18) 18 Respiratory rate source Observation Blood Pressure (90/60-120/80) 147/90 H 150/83 H Blood Pressure Mean (mm Hg) 109 105 Source Monitor Monitor History Since Last Visit- (Skip if this is Patient's initial visit) Have you changed medications since your No No last visit? Any new allergies or adverse reactions No No Had a fall/change in ADL's that may No No increase risk of falls Signs or symptoms of abuse and/or No No neglect since last visit Have you been in the hospital since your No No last visit? Has dressing in place as prescribed No Yes Has compression in place as prescribed Yes N/A Has offloadiing in place as prescribed N/A N/A Experienced any changes in pain level or No No management Left Footwear Regular Shoe Regular Shoe Right Footwear Regular Shoe Regular Shoe Pain Scale: 0-10 Numeric Is Patient Pain Free? Yes Yes - Nurse 1 - General Ulcer Measurement Start: 06/15/21 08:55 Freq: Status: Active Protocol: Activity Type Activity Date Activity User E-Sign Co-Sign Detail Recorded Client Recorded Date Recorded By Document 06/15/21 08:55 [id number] 06/15/21 09:03 DL Document 06/27/21 09:26 [place] [id number] 06/27/21 09:30 [place] 06/15/21 06/27/21 08:55 09:26 Wound Center Nurse 1 #6 Right Lateral Lower extremity -Combined with other wound No -Current Size (cm) - Length 1.3 0.1 -Current Size (cm) - Width 2 0.1 -Current Size (cm) - Depth 0.1 0.1 -Total Square Cm 2.6 0.01 -Photo Taken No No -Epithelialization None Present -Tunneling No -Undermining/Tunneling No -Circular Undermining No -Change in Wound Grade/Stage No -Exudate Amt Small None Present -Exudate Type Serosanguineous -Wound Margin Distinct, Outline Attached -Granulation Amt Medium (34-66%) -Granulation Quality Red N/A -Slough/Fibrin No -Necrosis Amt Medium (34-66%) None Present (0 %) -Necrotic Tissue Type Adherent Slough -Structure Exposed N/A N/A -Texture (Kajal-wound Skin Appearance) Scarring No Abnormality, Assessed -Moisture (Kajal-wound Skin Appearance) No Abnormality No Abnormality, Assessed -Color (Kajal-wound Skin Appearance) No Abnormality Assessed, Hemosiderin Staining -Temperature (Kajal-wound Skin No Abnormality No Abnormality Appearance) (Pt Warm) (Pt Warm) -Tenderness on Palpation (Kajal-wound No No Skin Appearance) -Ulcer Cleansing Soap and Water Soap and Water -Foul Odor after Cleansing Yes, Due to No Product Use -Anesthetic Used 4% Lidocaine 5% Lidocaine Solution Gel Lower Limb Edema Present No Right Calf (cm) 30 31 Right Ankle (cm) 19.6 21.2 WC - Nurse 2 - General Ulcer CM Notes Start: 06/15/21 08:55 Freq: Status: Active Protocol: Activity Type Activity Date Activity User E-Sign Co-Sign Detail Recorded Client Recorded Date Recorded By Document 06/15/21 09:40 MW [id number] 06/15/21 09:50 MW Edit Result 06/15/21 09:40 MW (1) [id number] 06/18/21 06:16 PL Document 06/27/21 09:31 MW [id number] 06/27/21 09:34 MW (1) #6 Right Lateral Lower extremity - Debridement - Subq, 1st 20sq cm Yes => No 06/15/21 06/27/21 09:40 09:31 Wound Center Nurse 2 #6 Right Lateral Lower extremity -Time 09:40 09:33 -Correct Patient Yes Yes -Correct Side, Site, Position Yes Yes -Correct Procedure Yes Yes -Procedure Performed Yes No -Type of Procedure Debridement -Clinical Debridement Subcutaneous -Tissue Removed Subcutaneous -Post Debridement (cm) - Length 1.5 0 -Post Debridement (cm) - Width 1.5 0 -Post Debridement (cm) - Depth 0.2 0 -Total Square (Post) (cm) 2.25 0 -Area of Debridement (cm) - Length 1.5 -Area of Debridement (cm) - Width 1.5 -Total Square (Area) (cm) 2.25 -Tunneling No -Undermining/Tunneling No -Circular Undermining No -Wound/Ulcer Outcome Not Healed Healed- Epithelialized -Ulcer Cleansing Rinsed/ Irrigated with Saline -Foul Odor after Cleansing No -Bioengineered Tissue Yes -Type of Bioengineered Tissue NuShield -Expiration Date 04/01/24 -Product Lot Number [id number] -Percent Used 50 -Lot number of Saline Used [id number] -Bleeding Controlled with Pressure -Offloading No -Treatment Response Procedure Tolerated Well -Debridement - Subq, 1st 20sq cm No -Apply Skin Sub - 1st 25 sq cm - Legs 1 -NuShield (per sq cm) 12 Pain Scale: 0-10 Numeric Is Patient Pain Free? Yes Yes - Nurse 3 - General Ulcer D/C NN Start: 06/15/21 08:55 Freq: Status: Active Protocol: Activity Type Activity Date Activity User E-Sign Co-Sign Detail Recorded Client Recorded Date Recorded By Document 06/15/21 10:53 JASON [id number] 06/15/21 10:56 RB 06/15/21 10:53 Wound Care Nurse 3 #6 Right Lateral Lower extremity -Primary Dressing Covered/Secured with Dry Gauze,Dry Gauze & Roll Gauze,Secured with Tape Right -Other double layer tubigrip Treatment Response Procedure Tolerated Well Pain Scale: 0-10 Numeric Is Patient Pain Free? Yes - Visit Discharge Discharge Condition Stable Ambulatory Status Ambulatory, Walker Transportation Private Auto Medication Reconcilliation completed & No provided to patient/care provider Clinical Summary of Care Provided Yes Assessment/Plan Assessment/Plan (1) Nonhealing ulcer of right lower extremity: CODE(S): L97.919 - 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 QUALIFIERS: Non-pressure ulcer stage: with fat layer exposed Qualified Code(s): L97.912 - Non-pressure chronic ulcer of unspecified part of right lower leg with fat layer exposed PLAN: Resolved, patient to be discharged from the wound center may cover with a dry dressing for a week for protection. Patient may follow-up as needed (2) Hypertension: CODE(S): I10 - Essential (primary) hypertension QUALIFIERS: Hypertension type: unspecified Qualified Code(s): I10 - Essential (primary) hypertension (3) PVD (peripheral vascular disease): CODE(S): I73.9 - Peripheral vascular disease, unspecified (4) Bilateral lower extremity edema: CODE(S): R60.0 - Localized edema
== END 2021-06-27 13:22 | disposition home or self-care (01) ==
LOC: WC 09:30
PROVIDERS: PCP Student in an Organized Health Care Education/Training Program; Visit Provider Nurse Practitioner
DX: I73.9 Peripheral vascular disease, unspecified (principal); L97.812 Non-pressure chronic ulcer of other part of right lower leg with fat layer exposed; R60.0 Localized edema; I10 Essential (primary) hypertension
CPT/HCPCS: 11042; 15271; 99213; Q4160; G0463

== ENCOUNTER → 2021-08-17 | Outpatient (REF) | payer MEDICARE, MEDICAID, SELFPAY | END | disposition home or self-care (01) | LOC: OLS.SWAL 07:15 | PROVIDERS: PCP Student in an Organized Health Care Education/Training Program; Referring Provider Internal Medicine; Visit Provider Internal Medicine | DX: N39.0 Urinary tract infection, site not specified (principal) | CPT/HCPCS: 87077; 87086; 87088; 87186 ==

== ENCOUNTER → 2021-11-19 | Outpatient (REF) | payer MEDICARE, MEDICAID, SELFPAY ==
[2021-11-19 08:45] LABS: Absolute Lymphocyte Count 1.92 X10^3/uL (0.83-4.51); Absolute Neutrophil Count 4.6 X10^3/uL (2.0-7.7); Basophil# 0.04 X10^3/uL; Basophil% 0.5 % (0-1); Eosinophil# 0.19 X10^3/uL; Eosinophils% 2.5 % (0-5); Hematocrit 45.6 % (37-47); Hemoglobin 14.4 g/dL (12.0-15.0); Lymphocyte # 1.92 X10^3/ul (0.83-4.51); Lymphocyte % 25.5 % (19-41); Mean Corp Hgb Conc 31.6 g/dL (32-36); Mean Corpuscular Hgb 28.1 pg (27.0-32.0); Mean Corpuscular Volume 88.9 fL (81-99); Mean Platelet Vol. 9.6 fl (6.2-12.0); Monocyte# 0.75 X10^3/uL; NRBC Flagged by Analyzer 0 % (0-5); Neutrophil % 61.2 % (47-70); Platelet Count 277 K/mm3 (150-450); RBC Distribution Width CV 13.2 % (11.6-14.6); RBC Distribution Width SD 43.1 fl (35.1-43.9); Red Blood Count 5.13 M/mm3 (4.2-5.4); White Blood Count 7.5 K/mm3 (4.4-11.0)
[2021-11-19 08:59] LABS: Vitamin D,25 Hydroxy 51.6 ng/mL
[2021-11-19 09:06] LABS: AST(SGOT) 27 U/L (15-37); Alanine Aminotransfer ALT/SGPT 22 U/L (13-56); Albumin, Serum 3.5 g/dL (3.2-5.0); Alkaline Phosphatase 83 U/L (45-117); Anion Gap 6 (5-15); BUN 11 mg/dL (7-18); BUN/Creat Ratio 15.4 RATIO (10-20); Calcium,Total 9.1 mg/dL (8.5-10.1); Chloride 105 mmol/L (98-107); Cholesterol 147 mg/dL (200); Creatinine, Serum 0.71 mg/dL (0.55-1.02); EST Glomerular Filtration Rate 84 mL/min (>60); Est Glom Filt Rate - Afr Amer 102 mL/min (>60); Globulin 3.5 g/dL (2.2-4.2); Glucose 89 mg/dL (74-106); High Density Lipoprotein 63 mg/dL; Magnesium 2.3 mg/dL (1.6-2.6); Potassium 3.4 mmol/L (3.5-5.1); Sodium Level 140 mmol/L (136-145); Triglycerides 108 mg/dL; Very Low Density Lipoprotein 22 mg/dL (5-40)
== END | disposition home or self-care (01) ==
LOC: OLS.SWAL 04:00
PROVIDERS: PCP Student in an Organized Health Care Education/Training Program; Referring Provider Internal Medicine; Visit Provider Internal Medicine
DX: I10 Essential (primary) hypertension (principal); R53.83 Other fatigue; E55.9 Vitamin D deficiency, unspecified
CPT/HCPCS: 36415; 80053; 80061; 82306; 83735; 85025

== ENCOUNTER → 2022-03-11 | Outpatient (REF) | payer MEDICARE, MEDICAID, SELFPAY ==
[2022-03-11 09:00] LABS: Absolute Lymphocyte Count 1.69 X10^3/uL (0.83-4.51); Absolute Neutrophil Count 3.4 X10^3/uL (2.0-7.7); Basophil# 0.07 X10^3/uL; Basophil% 1.1 % (0-1); Eosinophil# 0.23 X10^3/uL; Eosinophils% 3.7 % (0-5); Hematocrit 45.4 % (37-47); Hemoglobin 13.7 g/dL (12.0-15.0); Lymphocyte # 1.69 X10^3/ul (0.83-4.51); Lymphocyte % 27.5 % (19-41); Mean Corp Hgb Conc 30.2 g/dL (32-36); Mean Corpuscular Hgb 27.5 pg (27.0-32.0); Mean Platelet Vol. 9.7 fl (6.2-12.0); Monocyte# 0.78 X10^3/uL; Monocyte% 12.7 % (0-10); NRBC Flagged by Analyzer 0 % (0-5); Neutrophil # 3.37 X10^3/uL (2.7-7.7); Neutrophil % 54.8 % (47-70); Platelet Count 267 K/mm3 (150-450); RBC Distribution Width CV 13.5 % (11.6-14.6); RBC Distribution Width SD 45.4 fl (35.1-43.9); Red Blood Count 4.99 M/mm3 (4.2-5.4); White Blood Count 6.2 K/mm3 (4.4-11.0)
[2022-03-11 09:21] LABS: AST(SGOT) 22 U/L (15-37); Alanine Aminotransfer ALT/SGPT 22 U/L (13-56); Albumin, Serum 3.1 g/dL (3.2-5.0); Alkaline Phosphatase 73 U/L (45-117); Anion Gap 4 (5-15); BUN 10 mg/dL (7-18); BUN/Creat Ratio 13.9 RATIO (10-20); Calcium,Total 8.7 mg/dL (8.5-10.1); Chloride 107 mmol/L (98-107); Cholesterol 131 mg/dL (200); Creatinine, Serum 0.72 mg/dL (0.55-1.02); EST Glomerular Filtration Rate 83 mL/min (>60); Est Glom Filt Rate - Afr Amer 100 mL/min (>60); Globulin 3.2 g/dL (2.2-4.2); Glucose 96 mg/dL (74-106); High Density Lipoprotein 52 mg/dL; Magnesium 2.3 mg/dL (1.6-2.6); Protein, Total 6.3 g/dL (6.4-8.2); Sodium Level 143 mmol/L (136-145); Triglycerides 111 mg/dL; Very Low Density Lipoprotein 22 mg/dL (5-40)
== END ==
LOC: OLS.SWAL 05:00
PROVIDERS: PCP Student in an Organized Health Care Education/Training Program; Visit Provider Internal Medicine
DX: D64.9 Anemia, unspecified (principal); I10 Essential (primary) hypertension
CPT/HCPCS: 36415; 80053; 80061; 83735; 85025

== ENCOUNTER → 2022-04-06 | Outpatient (REF) | payer MEDICARE, MEDICAID, SELFPAY ==
[2022-04-06 10:48] LABS: Absolute Lymphocyte Count 1.25 X10^3/uL (0.83-4.51); Absolute Neutrophil Count 3.5 X10^3/uL (2.0-7.7); Basophil# 0.02 X10^3/uL; Basophil% 0.4 % (0-1); Eosinophil# 0.04 X10^3/uL; Eosinophils% 0.7 % (0-5); Hematocrit 44.4 % (37-47); Lymphocyte # 1.25 X10^3/ul (0.83-4.51); Lymphocyte % 21.9 % (19-41); Mean Corp Hgb Conc 31.5 g/dL (32-36); Mean Corpuscular Hgb 28.2 pg (27.0-32.0); Mean Corpuscular Volume 89.5 fL (81-99); Mean Platelet Vol. 9.7 fl (6.2-12.0); Monocyte# 0.93 X10^3/uL; Monocyte% 16.3 % (0-10); NRBC Flagged by Analyzer 0 % (0-5); Neutrophil # 3.46 X10^3/uL (2.7-7.7); Neutrophil % 60.5 % (47-70); Platelet Count 212 K/mm3 (150-450); RBC Distribution Width CV 13.9 % (11.6-14.6); RBC Distribution Width SD 45.3 fl (35.1-43.9); Red Blood Count 4.96 M/mm3 (4.2-5.4); White Blood Count 5.7 K/mm3 (4.4-11.0)
[2022-04-06 16:22] LABS: Anion Gap 7 (5-15); BUN 14 mg/dL (7-18); BUN/Creat Ratio 19.6 RATIO (10-20); CRP 8.87 mg/L (0.0-3.0); Calcium,Total 8.4 mg/dL (8.5-10.1); Chloride 100 mmol/L (98-107); Creatinine, Serum 0.71 mg/dL (0.55-1.02); EST Glomerular Filtration Rate 84 mL/min (>60); Est Glom Filt Rate - Afr Amer 101 mL/min (>60); Glucose 116 mg/dL (74-106); Potassium 4.4 mmol/L (3.5-5.1); Sodium Level 135 mmol/L (136-145)
== END ==
LOC: OLS.SWAL 08:00
PROVIDERS: PCP Student in an Organized Health Care Education/Training Program; Visit Provider Internal Medicine
DX: U07.1 COVID-19 (principal); Z79.899 Other long term (current) drug therapy
CPT/HCPCS: 36415; 80048; 85025; 86140

== ENCOUNTER → 2022-11-05 05:00 | Outpatient (REF) | payer MEDICARE, MEDICAID, SELFPAY ==
[2022-11-05 08:46] LABS: Absolute Lymphocyte Count 1.42 X10^3/uL (0.83-4.51); Basophil# 0.03 X10^3/uL; Basophil% 0.6 % (0-1); Eosinophil# 0.22 X10^3/uL; Eosinophils% 4.1 % (0-5); Hematocrit 47.3 % (37-47); Hemoglobin 14.8 g/dL (12.0-15.0); Lymphocyte # 1.42 X10^3/ul (0.83-4.51); Lymphocyte % 26.5 % (19-41); Mean Corp Hgb Conc 31.3 g/dL (32-36); Mean Corpuscular Hgb 28.1 pg (27.0-32.0); Mean Corpuscular Volume 89.9 fL (81-99); Mean Platelet Vol. 9.8 fl (6.2-12.0); Monocyte% 13.1 % (0-10); NRBC Flagged by Analyzer 0 % (0-5); Neutrophil # 2.97 X10^3/uL (2.7-7.7); Neutrophil % 55.5 % (47-70); Platelet Count 239 K/mm3 (150-450); RBC Distribution Width CV 13.4 % (11.6-14.6); Red Blood Count 5.26 M/mm3 (4.2-5.4); White Blood Count 5.4 K/mm3 (4.4-11.0)
[2022-11-05 09:03] LABS: Anion Gap 6 (5-15); BUN 6 mg/dL (7-18); BUN/Creat Ratio 9.3 RATIO (10-20); Chloride 106 mmol/L (98-107); Creatinine, Serum 0.65 mg/dL (0.55-1.02); EST Glomerular Filtration Rate 94 mL/min (>60); Est Glom Filt Rate - Afr Amer 113 mL/min (>60); Glucose 90 mg/dL (74-106); Sodium Level 141 mmol/L (136-145)
== END ==
LOC: OLS.SWAL 05:00
PROVIDERS: PCP Student in an Organized Health Care Education/Training Program; Visit Provider Internal Medicine
DX: I10 Essential (primary) hypertension (principal); E78.5 Hyperlipidemia, unspecified
CPT/HCPCS: 36415; 80048; 85025

== ENCOUNTER → 2022-12-24 | Outpatient (REF) | payer MEDICARE, MEDICAID, SELFPAY ==
[2022-12-24 09:12] LABS: Absolute Lymphocyte Count 1.38 X10^3/uL (0.83-4.51); Absolute Neutrophil Count 3.7 X10^3/uL (2.0-7.7); Basophil# 0.04 X10^3/uL; Basophil% 0.7 % (0-1); Eosinophil# 0.15 X10^3/uL; Eosinophils% 2.5 % (0-5); Hematocrit 48.4 % (37-47); Hemoglobin 14.9 g/dL (12.0-15.0); Lymphocyte # 1.38 X10^3/ul (0.83-4.51); Lymphocyte % 23.4 % (19-41); Mean Corp Hgb Conc 30.8 g/dL (32-36); Mean Corpuscular Hgb 27.7 pg (27.0-32.0); Mean Platelet Vol. 9.6 fl (6.2-12.0); Monocyte# 0.65 X10^3/uL; NRBC Flagged by Analyzer 0 % (0-5); Neutrophil # 3.67 X10^3/uL (2.7-7.7); Neutrophil % 62.1 % (47-70); Platelet Count 283 K/mm3 (150-450); RBC Distribution Width CV 13.5 % (11.6-14.6); RBC Distribution Width SD 44.5 fl (35.1-43.9); Red Blood Count 5.38 M/mm3 (4.2-5.4); White Blood Count 5.9 K/mm3 (4.4-11.0)
[2022-12-24 09:40] LABS: Anion Gap 5 (5-15); BUN 6 mg/dL (7-18); Calcium,Total 8.8 mg/dL (8.5-10.1); Chloride 103 mmol/L (98-107); Creatinine, Serum 0.67 mg/dL (0.55-1.02); EST Glomerular Filtration Rate 90 mL/min (>60); Est Glom Filt Rate - Afr Amer 109 mL/min (>60); Glucose 111 mg/dL (74-106); Potassium 3.4 mmol/L (3.5-5.1); Sodium Level 139 mmol/L (136-145)
== END ==
LOC: OLS.SWAL 05:00
PROVIDERS: PCP Student in an Organized Health Care Education/Training Program; Visit Provider Internal Medicine
DX: I10 Essential (primary) hypertension (principal)
CPT/HCPCS: 36415; 80048; 85025

== ENCOUNTER → 2023-01-03 | Outpatient (REF) | payer MEDICARE, MEDICAID, SELFPAY ==
[2023-01-03 08:16] LABS: Anion Gap 6 (5-15); BUN 7 mg/dL (7-18); Chloride 104 mmol/L (98-107); EST Glomerular Filtration Rate 86 mL/min (>60); Est Glom Filt Rate - Afr Amer 104 mL/min (>60); Glucose 107 mg/dL (74-106); Potassium 3.8 mmol/L (3.5-5.1); Sodium Level 141 mmol/L (136-145)
== END ==
LOC: OLS.SWAL 07:24
PROVIDERS: PCP Student in an Organized Health Care Education/Training Program; Visit Provider Internal Medicine
DX: E87.6 Hypokalemia (principal)
CPT/HCPCS: 36415; 80048

== ENCOUNTER → 2023-02-27 | Outpatient (REF) | payer MEDICARE, MEDICAID, SELFPAY ==
[2023-02-27 09:04] LABS: Anion Gap 2 (5-15); BUN 10 mg/dL (7-18); BUN/Creat Ratio 13.1 RATIO (10-20); Calcium,Total 8.9 mg/dL (8.5-10.1); Chloride 105 mmol/L (98-107); Creatinine, Serum 0.76 mg/dL (0.55-1.02); EST Glomerular Filtration Rate 77 mL/min (>60); Est Glom Filt Rate - Afr Amer 93 mL/min (>60); Glucose 103 mg/dL (74-106); Magnesium 2.3 mg/dL (1.6-2.6); Potassium 3.8 mmol/L (3.5-5.1); Sodium Level 140 mmol/L (136-145)
== END ==
LOC: OLS.SWAL 05:00
PROVIDERS: PCP Student in an Organized Health Care Education/Training Program; Visit Provider Internal Medicine
DX: R60.9 Edema, unspecified (principal)
CPT/HCPCS: 36415; 80048; 83735

== ENCOUNTER → 2023-03-26 | Outpatient (REF) | payer MEDICARE, MEDICAID, SELFPAY ==
[2023-03-26 08:09] LABS: Anion Gap 3 (5-15); BUN 11 mg/dL (7-18); Calcium,Total 9.1 mg/dL (8.5-10.1); Chloride 104 mmol/L (98-107); Creatinine, Serum 0.73 mg/dL (0.55-1.02); EST Glomerular Filtration Rate 81 mL/min (>60); Est Glom Filt Rate - Afr Amer 98 mL/min (>60); Glucose 98 mg/dL (74-106); Magnesium 2.5 mg/dL (1.6-2.6); Potassium 3.9 mmol/L (3.5-5.1); Sodium Level 140 mmol/L (136-145)
== END ==
LOC: OLS.SWAL 05:00
PROVIDERS: PCP Student in an Organized Health Care Education/Training Program; Visit Provider Internal Medicine
DX: I10 Essential (primary) hypertension (principal)
CPT/HCPCS: 36415; 80048; 83735

== ENCOUNTER → 2023-04-28 | Outpatient (REF) | payer MEDICARE, MEDICAID, SELFPAY ==
[2023-04-28 08:10] LABS: Absolute Lymphocyte Count 1.69 X10^3/uL (0.83-4.51); Absolute Neutrophil Count 3.6 X10^3/uL (2.0-7.7); Basophil# 0.06 X10^3/uL; Basophil% 0.9 % (0-1); Eosinophils% 3.1 % (0-5); Hematocrit 43.3 % (37-47); Lymphocyte # 1.69 X10^3/ul (0.83-4.51); Lymphocyte % 26.3 % (19-41); Mean Corpuscular Hgb 27.3 pg (27.0-32.0); Mean Platelet Vol. 10.6 fl (6.2-12.0); Monocyte# 0.86 X10^3/uL; Monocyte% 13.4 % (0-10); NRBC Flagged by Analyzer 0 % (0-5); Platelet Count 253 K/mm3 (150-450); RBC Distribution Width CV 13.4 % (11.6-14.6); Red Blood Count 4.76 M/mm3 (4.2-5.4); White Blood Count 6.4 K/mm3 (4.4-11.0)
[2023-04-28 08:29] LABS: Anion Gap 4 (5-15); BUN 10 mg/dL (7-18); BUN/Creat Ratio 12.9 RATIO (10-20); Calcium,Total 8.6 mg/dL (8.5-10.1); Chloride 105 mmol/L (98-107); Creatinine, Serum 0.78 mg/dL (0.55-1.02); EST Glomerular Filtration Rate 76 mL/min (>60); Est Glom Filt Rate - Afr Amer 92 mL/min (>60); Glucose 93 mg/dL (74-106); Magnesium 2.3 mg/dL (1.6-2.6); Potassium 3.6 mmol/L (3.5-5.1); Sodium Level 143 mmol/L (136-145)
== END ==
LOC: OLS.SWAL 04:00
PROVIDERS: PCP Student in an Organized Health Care Education/Training Program; Visit Provider Internal Medicine
DX: I74.4 Embolism and thrombosis of arteries of extremities, unspecified (principal); E61.2 Magnesium deficiency
CPT/HCPCS: 36415; 80048; 83735; 85025

== ENCOUNTER → 2023-05-14 | Outpatient (REF) | payer MEDICARE, MEDICAID, SELFPAY ==
[2023-05-14 09:05] LABS: Hematocrit 46.1 % (37-47); Hemoglobin 14.2 g/dL (12.0-15.0); Mean Corp Hgb Conc 30.8 g/dL (32-36); Mean Corpuscular Hgb 27.4 pg (27.0-32.0); Mean Corpuscular Volume 88.8 fL (81-99); Mean Platelet Vol. 10.4 fl (6.2-12.0); Platelet Count 289 K/mm3 (150-450); RBC Distribution Width CV 13.6 % (11.6-14.6); RBC Distribution Width SD 44.3 fl (35.1-43.9); Red Blood Count 5.19 M/mm3 (4.2-5.4); White Blood Count 6.8 K/mm3 (4.4-11.0)
== END ==
LOC: OLS.SWAL 04:00
PROVIDERS: PCP Student in an Organized Health Care Education/Training Program; Referring Provider Internal Medicine; Visit Provider Internal Medicine
DX: T14.8XXA Other injury of unspecified body region, initial encounter (principal)
CPT/HCPCS: 36415; 85027

== ENCOUNTER → 2023-05-16 | Outpatient (REF) | payer MEDICARE, MEDICAID, SELFPAY ==
--- OUTSIDE RECORDS SUMMARY | 2023-05-16 15:32 | XMS RPT_ITS | CCD ---
Author Name Unknown Address [address] [place] [address] Organization [facility] Care Team Providers Care Signals Collector/Analyst Name Role Phone PAUL WEEKS CNP Primary Care Unavailable PAUL WEEKS CNP Consulting Unavailable PAUL WEEKS CNP Attending Unavailable PAUL WEEKS CNP Admitting Unavailable PROVIDER, UNKNOWN Consulting Unavailable PROVIDER, UNKNOWN Consulting Unavailable PAUL WEEKS CNP Admitting Unavailable PAUL WEEKS CNP Primary Care Unavailable PAUL WEEKS CNP Consulting Unavailable PAUL WEEKS CNP Attending Unavailable PROVIDER, UNKNOWN Consulting Unavailable PROVIDER, UNKNOWN Consulting Unavailable MIKE TSANG DO Admitting Unavailable MIKE TSANG DO Primary Care Unavailable MIKE TSANG DO Attending Unavailable PAUL WEEKS CNP Consulting Unavailable PROVIDER, UNKNOWN Consulting Unavailable PROVIDER, UNKNOWN Consulting Unavailable SALINAS, MAMTA E Admitting Unavailable SALIANS, MAMTA E Primary Care Unavailable SALINAS, MAMTA E Attending Unavailable PAUL WEEKS CNP Consulting Unavailable PROVIDER, UNKNOWN Consulting Unavailable PROVIDER, UNKNOWN Consulting Unavailable SALINAS, MAMTA E Admitting Unavailable SALINAS, MAMTA E Primary Care Unavailable SALINAS, MAMTA E Attending Unavailable PAUL WEEKS CNP Consulting Unavailable PROVIDER, UNKNOWN Consulting Unavailable PROVIDER, UNKNOWN Consulting Unavailable Allergies Allergy Classification Reported Allergen(s) Allergy Type Date of Onset Reaction(s) Facility (1 source) Latex; Translations: [LATEX] Propensity to adverse reactions (disorder) [facility] Repository Problems Active Problems Problem Classification Problem Date Documented Da te Episodic/Chronic Essential hypertension (1 source) Essential (primary) hypertension; Translations: [Essential (primary) hypertension] Onset: 11-24-2019 Chronic Past or Other Problems Problem Classification Problem Date Documented Da te Episodic/Chronic Other screening for suspected conditions (not mental disorders or infectious disease) (1 source) Encounter for screening for lipoid disorders; Translations: [Encounter for screening for lipoid disorders] Onset: 11-24-2019 Episodic Results Test Name Value Interpretation Reference Range Facil ity Encounters Encounter Date Encounter Type Care Provider Facility Start: 09-05-2020 End: 09-05-2020 Patient encounter procedure MAMTA NIÑO [facility] Start: 08-11-2020 End: 08-11-2020 Patient encounter procedure MAMTA Benson SALINAS [facility] Start: 11-24-2019 End: 11-24-2019 Patient encounter procedure MIKE MONTIEL [facility] Start: 11-05-2019 Encounter for genera l adult medical examination without abnormal findings PAUL WEEKS [facility] Start: 11-05-2019 Patient encounter procedure PAUL GARCIA [facility] Payers Date Payer Category Payer Unknown [id number] [id number] [id number] 1940 Unknown [id number] [id number] [id number] 1940 Unknown [id number] 2.16.84 [id number] 1940 Unknown [id number] 2.16.84 [id number] 1940 Unknown [id number] 2.16.84 [id number] [id number] [id number] Summary Purpose Family History No Family History Records Found Advance Directives No Advanced Directives Records Found Additional Source Comments INFORMATION SOURCE (unrecogn ized section and content) FOR RECORDS PERTAINING TO PATIENTS WHO ARE OR HAVE BEEN ENROLLED IN A CHEMICAL DEPENDENCY/SUBSTANCEABUSE PROGRAM, SOME INFORMATION MAY BE OMITTED. This clinical summary was aggregated from multiple sources. Caution should be exercised in using it in the provision of clinical care. This summary normalizes information from multiple sources, and as a consequence, information in this document may materially change the coding, format and clinical context of patient data. In addition, data may be omitted in some cases. CLINICAL DECISIONS SHOULD BE BASED ON THE PRIMARY CLINICAL RECORDS. [facility]. provides no warranty or guarantee of the accuracy or completeness of information in this document.
== END ==
LOC: OLS.SW 13:30
PROVIDERS: PCP Student in an Organized Health Care Education/Training Program; Visit Provider Internal Medicine
DX: S81.802A Unspecified open wound, left lower leg, initial encounter (principal)
CPT/HCPCS: 87070; 87186; 87205

== ENCOUNTER → 2023-05-19 | Outpatient (REF) | payer MEDICARE, MEDICAID, SELFPAY ==
[2023-05-19 08:33] LABS: Absolute Lymphocyte Count 2.12 X10^3/uL (0.83-4.51); Absolute Neutrophil Count 3.6 X10^3/uL (2.0-7.7); Basophil# 0.07 X10^3/uL; Eosinophil# 0.22 X10^3/uL; Eosinophils% 3.2 % (0-5); Hematocrit 46.3 % (37-47); Lymphocyte # 2.12 X10^3/ul (0.83-4.51); Lymphocyte % 30.9 % (19-41); Mean Corp Hgb Conc 30.2 g/dL (32-36); Mean Corpuscular Hgb 27.5 pg (27.0-32.0); Mean Corpuscular Volume 90.8 fL (81-99); Mean Platelet Vol. 10.6 fl (6.2-12.0); Monocyte# 0.81 X10^3/uL; Monocyte% 11.8 % (0-10); NRBC Flagged by Analyzer 0 % (0-5); Neutrophil # 3.61 X10^3/uL (2.7-7.7); Neutrophil % 52.8 % (47-70); Platelet Count 285 K/mm3 (150-450); RBC Distribution Width CV 13.7 % (11.6-14.6); RBC Distribution Width SD 46.1 fl (35.1-43.9); White Blood Count 6.9 K/mm3 (4.4-11.0)
== END ==
LOC: OLS.SWAL 04:00
PROVIDERS: PCP Student in an Organized Health Care Education/Training Program; Visit Provider Internal Medicine
DX: L08.9 Local infection of the skin and subcutaneous tissue, unspecified (principal)
CPT/HCPCS: 36415; 85025

== ENCOUNTER 2023-06-04 13:00 | Outpatient (RCR) | payer MEDICARE, MEDICAID, SELFPAY ==
[2023-05-21 13:12] VITALS: BP 139/102; PULSE 86; RESP 18; TEMP 36; BMI 21.0
--- NOTE | 2023-05-21 15:35 | PN.PCM_ITS ---
History of Present Illness Date of Service: 05/21/23 Chief Complaint: Nonhealing ulcer left lower extremity History of Wound: This is a 79-year-old white female known to me previously who was recently discharged from the [facility] in November 2018 who presents to the wound center today for nonhealing ulcer on her left lower extrtemity x 2 weeks. She has a past medical history which is significant for hypertension, venous insufficiency, vertigo and peripheral vascular disease. The patient has not been utilizing any intervention for wound care and has been wearing compression socks that are 15-20 mm Hg but has not been elevating her legs as much as she should. She denies any fever, chills, nausea, vomiting, shortness of breath, chest pain or pressure. Patient states she fell in her bathroom on [address] on and since then has had this open wound that will not heal. She is very touchy about having it debrided and touched. Subjective Subjective Ms. Hurtado is a 83-year-old female presenting to the wound care center today for follow-up and evaluation of left full-thickness ulceration of the leg. Patient states the wound has been present for a long period of time. She currently resides at a nursing facility where she has been getting daily dressing changes by the nursing staff. She states the wound has been chronic in nature. She denies any onset of trauma. Skin is unsure how the ulceration got to her left leg and states it just appeared. She has not taken any antibiotics for the wound. She denies constitutional symptoms. No other pedal complaints at this time. Objective Data Objective Data Vital Signs: Vital Signs Temp Pulse Resp BP O2 Del Method 96.8 F L 86 18 139/102 H Room Air 05/21/23 13:12 05/21/23 13:12 05/21/23 13:12 05/21/23 13:12 05/21/23 13:12 Oxygen Delivery Method Room Air Weight: 62.777 kg Body Mass Index (BMI) 21.0 Physical Exam Narrative Vascular: DP and PT pulses are faintly palpable. CFT is brisk. Evidence of varicosities appreciated bilateral lower extremity. Nonpitting edema appreciated left lower extremity. Skin temperature great is warm to cold from proximal ankle to distal digits to left lower extremity. Neurological: Light touch intact. Patient response to painful stimuli. Protective sensation is present. Dermatological: Full-thickness ulceration to the left lateral leg measuring 1.8 x 1.3 x 0.2 cm. Wound base is fibrogranular nature. No evidence of serous drainage. No evidence of erythema, proximal streaking or sign of infection. Excisional debridement down to and including subcutaneous tissue with a number 5 mm dermal curette to left lateral ulceration left leg. Predebridement measurement is 1.6 x 1.2 x 0.1 cm. Postdebridement measurement is 1.8 x 1.3 x 0.2 cm. Musculoskeletal: Mild to moderate palpatory tenderness is appreciated to the full-thickness ulceration left leg. No pain with calf pressure. Debridement Note Debridement Note Debridement Free Text: Excisional debridement down to and including subcutaneous tissue with a number 5 mm dermal curette to left lateral ulceration left leg. Predebridement measurement is 1.6 x 1.2 x 0.1 cm. Postdebridement measurement is 1.8 x 1.3 x 0.2 cm. Post-Debridement Measurements and Additional Note: Post-Debridement Measurements/Treatment - Nurse 1 - General Ulcer Assessment Start: 05/21/23 13:12 Freq: Status: Active Protocol: JAKC.LOWEXT Activity Type Activity Date Activity User E-sign Co-sign Detail Recorded Client Recorded Date Recorded By Document 05/21/23 13:12 KW Desktop 05/21/23 13:36 KW Edit Result 05/21/23 13:12 KW (1) Desktop 05/21/23 13:39 KW (1) Height => 5 ft 8 in Weight => 62.777 kg Weight in Pounds => 138.4 lbs Body Mass Index (BMI) => 21.0 BMI Classification => Normal BSA - Brittany => 1.75 05/21/23 13:12 - Today's Visit Information Type of service Initial Visit Arrival Mode Ambulatory, Walker Patient Identification Verified (Name & Yes ) Height and Weight Height 5 ft 8 in Weight 62.777 kg Weight in Pounds 138.4 lbs Body Mass Index (BMI) 21.0 BMI Classification Normal BSA - Brittany 1.75 Vital Signs Temperature (97.8 F-99.1 F) 96.8 F L Temperature Source Temporal Pulse Rate (60-100) 86 Pulse Location Monitor Respiratory Rate (12-18) 18 Respiratory rate source Observation Oxygen Delivery Method Room Air Blood Pressure (90/60-120/80) 139/102 H Blood Pressure Mean (mm Hg) 114 Source Monitor Position Semi-Fowlers Blood Pressure Location Right Arm History Since Last Visit- (Skip if this is Patient's initial visit) Left Footwear Regular Shoe Right Footwear Regular Shoe Pain Scale: 0-10 Numeric Is Patient Pain Free? Yes Lower Extremity Assessment/ Foot Assessment/ Toe Nail Assessment Right -Posterior Tibial Doppler Monophasic -Dorsalis Pedis Doppler Multiphasic -Extremity Color Hemosiderin -Hair Growth on Legs Yes -Capillary Refill Greater than 3 Seconds Left -Posterior Tibial Doppler Inaudible -Dorsalis Pedis Doppler Multiphasic -Extremity Color Hemosiderin -Hair Growth on Legs Yes -Capillary Refill Greater than 3 Seconds Communication Assessment Preferred language Icelandic Able to Read Yes Able to Write Yes Communication Tools None Caregiver Communication Skills No Impairment Impairment Right Hearing Abillity Normal Left Hearing Abillity Normal Visual Assistive Devices Glasses Teaching Assessment Preferences Verbal,Written, Demonstration Barriers to Learning None Readiness To Learn Excellent Willingness to Engage in Self Management High Activies Readiness to Engage in Self Management High Activities Anxiety Level Calm Cooperation Cooperative Perception Coherent Interest in Health Problem Asks Questions Education Importance Acknowledges Need Does Patient Smoke tobacco or other Yes substances Smoking Status Never smoker Is Patient Diabetic No Functional Assessment Recent Decline in Ability to Perform Denies Any Declines Culture/Faith/Janitor Cleaner Cultural/Faith Needs that may affect No Treatment Plan Would you allow our hospital early childhood lead teacher to No meet you for the purpose of spiritual/ emotional support? Janitor Cleaner to contact place of uatsdin No WC - Nurse 1 - General Ulcer Measurement Start: 05/21/23 13:12 Freq: Status: Active Protocol: Activity Type Activity Date Activity User E-sign Co-sign Detail Recorded Client Recorded Date Recorded By Document 05/21/23 13:12 KW Desktop 05/21/23 13:36 KW 05/21/23 13:12 Wound Center Nurse 1 #7 LT LAT LE -Current Size (cm) - Length 1.4 -Current Size (cm) - Width 1.2 -Current Size (cm) - Depth 0.2 -Total Square Cm 1.68 -Photo Taken Yes -Exudate Amt Small -Exudate Type Serosanguineous -Wound Margin Distinct, Outline Attached -Granulation Amt Small (1-33%) -Granulation Quality [place] -Necrosis Amt Large (67-100%) -Necrotic Tissue Type Adherent Slough -Texture (Kajal-wound Skin Appearance) Assessed -Moisture (Kajal-wound Skin Appearance) Assessed -Color (Kajal-wound Skin Appearance) Assessed -Ulcer Cleansing Soap and Water -Anesthetic Used 5% Lidocaine Gel Right Calf (cm) 31.2 Right Ankle (cm) 20.6 Left Calf (cm) 32.6 Left Ankle (cm) 21.0 WC - Nurse 2 - General Ulcer CM Notes Start: 05/21/23 13:12 Freq: Status: Active Protocol: Activity Type Activity Date Activity User E-sign Co-sign Detail Recorded Client Recorded Date Recorded By Document 05/21/23 14:05 Desktop 05/21/23 14:06 05/21/23 14:05 Wound Center Nurse 2 #7 LT LAT LE -Time 14:06 -Correct Patient Yes -Correct Side, Site, Position Yes -Correct Procedure Yes -Procedure Performed Yes -Type of Procedure Debridement -Clinical Debridement Subcutaneous -Tissue Removed Subcutaneous -Post Debridement (cm) - Length 1.8 -Post Debridement (cm) - Width 1.3 -Post Debridement (cm) - Depth 0.2 -Total Square (Post) (cm) 2.34 -Area of Debridement (cm) - Length 1.8 -Area of Debridement (cm) - Width 1.3 -Total Square (Area) (cm) 2.34 -Tunneling No -Undermining/Tunneling No -Circular Undermining No -Wound/Ulcer Outcome Not Healed -Ulcer Cleansing Rinsed/ Irrigated with Saline -Foul Odor after Cleansing No -Bioengineered Tissue No -Bleeding Controlled with Pressure -Treatment Response Procedure Tolerated Well -Offloading No -Debridement - Subq, 1st 20sq cm Yes Pain Scale: 0-10 Numeric Is Patient Pain Free? Yes WC - Nurse 3 - General Ulcer D/C NN Start: 05/21/23 13:12 Freq: Status: Active Protocol: Activity Type Activity Date Activity User E-sign Co-sign Detail Recorded Client Recorded Date Recorded By Document 05/21/23 14:24 DL [id number] 05/21/23 14:25 DL 05/21/23 14:24 Wound Care Center Nurse 3 #7 LT LAT LE -Ulcer Cleansing Rinsed/ Irrigated with Saline -Foul Odor after Cleansing No -Other Dressing wet to dry -Primary Dressing Covered/Secured with Dry Gauze & Roll Gauze, Secured with Tape David -Tubular Bandage Single Layer -Size of Tubigrip Used Size D -Size D ($) 1 Treatment Response Procedure Tolerated Well Pain Scale: 0-10 Numeric Is Patient Pain Free? Yes WC - Visit Discharge Discharge Condition Stable Ambulatory Status Ambulatory, Walker Notes: Pt to apply santyl when available. Facility Type Long-Term Care Facility Orders Sent Yes Assessment/Plan Assessment/Plan (1) 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: CODE(S): L97.922 - Non-pressure chronic ulcer of unspecified part of left lower leg with fat layer exposed PLAN: Patient was examined and evaluated. All findings were discussed with the patient. All questions were answered to the patient satisfaction. Excisional debridement down to and including subcutaneous tissue with a number 5 mm dermal curette to left lateral ulceration left leg. Predebridement measurement is 1.6 x 1.2 x 0.1 cm. Postdebridement measurement is 1.8 x 1.3 x 0.2 cm. The ulceration was dressed with saline wet-to-dry dry sterile dressing and a single layer Tubigrip. Will begin authorization for Santyl so the patient's nursing staff can apply this daily. The ulceration after debridement was cultured to rule out any superficial infection. Will begin authorization for PVRs and venous study due to the patient's poor vascular flow. Follow-up in 1 week. (2) Pain in left leg: CODE(S): M79.605 - Pain in left leg (3) PVD (peripheral vascular disease): CODE(S): I73.9 - Peripheral vascular disease, unspecified
--- NOTE | 2023-05-26 07:45 | WC ---
Received order on 05/25/[address] Bernal that Doxycycline was called into patient's pharmacy for a positive wound culture. Patient resides at [facility] and called the nursing line there this am to talk to a nurse but received a voicemail instead and left a message with them. I asked that someone there call me back letting me know they received the message and that someone can pickling grader the RX from [facility] retail pharmacy which is her preferred pharmacy listed.
--- NOTE | 2023-05-27 13:23 | ART_ITS ---
Reason For Study: LLE Wound Procedure A bilateral lower extremity continuous wave Doppler with analog waveform analysis,segmental pressures,and ankle brachial indexes without exercise. Left Segmental Pressures Left brachial= 114mmHg. Left posterior tibial artery = 132mmHg. Left dorsalis pedis artery = 108mmHg. Left digit = 105 mmHg. The left posterior tibial artery waveforms are triphasic. The left dorsalis pedis waveforms are triphasic. Right Segmental Pressures Right brachial= 104mmHg. Right posterior tibial artery = 137mmHg. Right dorsalis pedis artery = 120mmHg. Right digit = 98 mmHg. The right posterior tibial artery waveforms are triphasic. The right dorsalis pedis waveforms are triphasic. Indices The right ankle brachial index by the posterior tibial artery is 1.20. The right ankle brachial index by the dorsalis pedis is 1.05. The right digital-brachial index is 0.86. The left ankle brachial index by the posterior tibial artery is 1.16. The left ankle brachial index by the dorsalis pedis is 0.95. The left digital-brachial index is 0.92. VL/Lower Ext Art Exam w/o Exercis Interpretation Summary Triphasic Doppler waveforms are noted at ankle level bilaterally. Pulse-volume recordings appear diminished at digital level bilaterally, but satisfactory at all other levels b ilaterally. Resting ankle-brachial indices are normal bilaterally. Digital-brachial indices are nor mal bilaterally. There is no evidence of significant arterial occlusive disease in the lower ext remities bilaterally. Ordering Physician: Andie Bernal Referring Physician: ANDIE BERNAL DPM Performed By: Neel Polk RVT
--- NOTE | 2023-05-27 13:23 | VDLE_ITS ---
Reason For Study: BLE Pain / Edema RIGHT LEFT CFV is compressible, spontaneous, phasic, CFV is compressible, spontaneous, phasic, competent, and demonstrates normal competent, and demonstrates normal augmentation. augmentation. FV is compressible, spontaneous, phasic, FV is compressible, spontaneous, phasic, competent and demonstrates normal competent and demonstrates normal augmentation. augmentation. POP V is compressible, spontaneous, phasic, POP V is compressible, spontaneous, phasic, competent and demonstrates normal competent and demonstrates normal augmentation. augmentation. T/P Trunk is compressible. T/P Trunk is compressible. PTV is compressible. PTV is compressible. LT PerV is compressible. LT PerV is compressible. SFJ is INCOMPETENT and measures 0.45 cm. Unable to visualize distal calf vessels due GSV proximal thigh measures 0.35 x 0.32 cm. to wounds / bandages. GSV at knee measures 0.29 x 0.29 cm. SFJ is competent and measures 0.40 cm. GSV is competent throughout GSV proximal thigh measures 0.35 x 0.37 cm. SSV proximal calf is INCOMPETENT for greater GSV at knee measures 0.32 x 0.38 cm. than 0.5 seconds and measures 0.27 x 0.27 cm. GSV INCOMPETENT throughout for greater than Procedure 0.5 seconds. This is a venous duplex using B-mode, color SSV proximal calf is competent and measures flow and spectral Doppler. 0.37 x 0.42 cm. Exam performed in department. ASV mid calf is INCOMPETENT for greater than The study was technically difficult. 0.5 seconds and measures 0.37 x 0.42 cm. Limited views were obtained. VL/Venous Duplex US - David Extrem Interpretation Summary Deep veins of the lower extremities are bilaterally patent and compressible seg mentally. There is no evidence of deep vein thrombosis on either side. Valvular competence appears in tact within the proximal deep venous systems bilaterally. The great saphenous veins appear bila terally patent and compressible segmentally. The right sapheno-femoral junction is incompetent . T he left sapheno- femoral junction is competent . The right great saphenous vein appears segmenta lly competent. The left great saphenous vein appears segmentally incompetent. The right small saph enous vein is patent and incompetent. The left small saphenous vein is patent and competent. The acc essory saphenous vein in the left mid-calf is incompetent. Deep veins in the left distal calf were no t visualized due to the presence of wounds and bandages. Ordering Physician: Daniel Bernal Referring Physician: Dianna Guido Performed By: Neel Polk RVT
[2023-05-28 13:02] VITALS: BP 131/88; PULSE 90; RESP 16; BMI 21.0
--- NOTE | 2023-05-28 13:17 | PCM.WC.PN ---
History of Present Illness Date of Service: 05/28/23 Chief Complaint: Nonhealing ulcer left lower extremity History of Wound: This is a 79-year-old white female known to me previously who was recently discharged from the [facility] in November 2018 who presents to the wound center today for nonhealing ulcer on her left lower extrtemity x 2 weeks. She has a past medical history which is significant for hypertension, venous insufficiency, vertigo and peripheral vascular disease. The patient has not been utilizing any intervention for wound care and has been wearing compression socks that are 15-20 mm Hg but has not been elevating her legs as much as she should. She denies any fever, chills, nausea, vomiting, shortness of breath, chest pain or pressure. Patient states she fell in her bathroom on [address] on and since then has had this open wound that will not heal. She is very touchy about having it debrided and touched. Subjective Subjective Mrs. Hurtado is a 83-year-old female presenting for follow-up evaluation to the wound care center for a left lower extremity ulceration. Patient has been getting dressing changes at her [facility]dc facility through nursing staff with Santyl and dry sterile dressing and single-layer Tubigrip. Cultures have returned and show evidence of bacterial growth and has been placed on doxycycline by Dr. Bernal for 2 weeks. Will begin ordering skin graft substitutes. Patient's vascular studies have returned and we will evaluate them with the patient while in clinic. She denies trauma. Denies constitutional symptoms. No other pedal complaints at this time. Objective Data Objective Data Vital Signs: Vital Signs Temp Pulse Resp BP O2 Del Method 96.8 F L 90 16 131/88 H Room Air 05/21/23 13:12 05/28/23 13:02 05/28/23 13:02 05/28/23 13:02 05/28/23 13:02 Oxygen Delivery Method Room Air Weight: 62.777 kg Body Mass Index (BMI) 21.0 Lab / Micro Data Micro: Microbiology 05/22/23 13:57 Wound - Leg, Left Gram Stain - Final 05/22/23 13:57 Wound - Leg, Left Wound Culture - Preliminary Gram Positive Cocci Staphylococcus lugdunensis 05/22/23 13:57 Wound - Leg, Left Anaerobic Culture - Final No anaerobic bacteria isolated. Radiography Diagnostic Testing: Radiology Impression Extremity Arterial Study 05/27/23 13:23 Interpretation Summary Triphasic Doppler waveforms are noted at ankle level bilaterally. Pulse-volume recordings appear diminished at digital level bilaterally, but satisfactory at all other levels bilaterally. Resting ankle-brachial indices are normal bilaterally. Digital-brachial indices are normal bilaterally. There is no evidence of significant arterial occlusive disease in the lower extremities bilaterally. Ordering Physician: Andie Bernal Referring Physician: ANDIE BERNAL DPM Performed By: Neel Polk RVT Venous Doppler Study 05/27/23 13:23 Interpretation Summary Deep veins of the lower extremities are bilaterally patent and compressible segmentally. There is no evidence of deep vein thrombosis on either side. Valvular competence appears intact within the proximal deep venous systems bilaterally. The great saphenous veins appear bilaterally patent and compressible segmentally. The right sapheno-femoral junction is incompetent . The left sapheno- femoral junction is competent . The right great saphenous vein appears segmentally competent. The left great saphenous vein appears segmentally incompetent. The right small saphenous vein is patent and incompetent. The left small saphenous vein is patent and competent. The accessory saphenous vein in the left mid-calf is incompetent. Deep veins in the left distal calf were not visualized due to the presence of wounds and bandages. Ordering Physician: Andie Bernal Referring Physician: Dianna Guido Performed By: Neel Polk RVT Physical Exam Narrative Vascular: DP and PT pulses are faintly palpable. CFT is brisk. Evidence of varicosities appreciated bilateral lower extremity. Nonpitting edema appreciated left lower extremity. Skin temperature great is warm to cold from proximal ankle to distal digits to left lower extremity. Neurological: Light touch intact. Patient response to painful stimuli. Protective sensation is present. Dermatological: Full-thickness ulceration to the left lateral leg measuring 1.4 x 1.0 x 0.2 cm. Wound base is fibrogranular nature. No evidence of serous drainage. No evidence of erythema, proximal streaking or sign of infection. Excisional debridement down to and including subcutaneous tissue with a number 5 mm dermal curette to left lateral ulceration left leg. Predebridement measurement is 1.3 x 0.9 x 0.1 cm. Postdebridement measurement is 1.4 x 1.0 x 0.2 cm. Musculoskeletal: Mild to moderate palpatory tenderness is appreciated to the full-thickness ulceration left leg. No pain with calf pressure. Debridement Note Debridement Note Debridement Free Text: Excisional debridement down to and including subcutaneous tissue with a number 5 mm dermal curette to left lateral ulceration left leg. Predebridement measurement is 1.3 x 0.9 x 0.1 cm. Postdebridement measurement is 1.4 x 1.0 x 0.2 cm. Post-Debridement Measurements and Additional Note: Post-Debridement Measurements/Treatment - Nurse 1 - General Ulcer Assessment Start: 05/21/23 13:12 Freq: Status: Active Protocol: WC.LOWEXT Activity Type Activity Date Activity User E-sign Co-sign Detail Recorded Client Recorded Date Recorded By Document 05/21/23 13:12 KW Desktop 05/21/23 13:36 KW Edit Result 05/21/23 13:12 KW (1) Desktop 05/21/23 13:39 KW Document 05/28/23 13:02 BMF Desktop 05/28/23 13:07 BMF (1) Height => 5 ft 8 in Weight => 62.777 kg Weight in Pounds => 138.4 lbs Body Mass Index (BMI) => 21.0 BMI Classification => Normal BSA - Brittany => 1.75 05/21/23 05/28/23 13:12 13:02 - Today's Visit Information Type of service Initial Visit Follow-up Visit (Physician/COMMISSARY MANAGER ) Arrival Mode Ambulatory, Ambulatory, Walker Walker Transfer Assistance None Patient Identification Verified (Name & Yes Yes ) Patient Requires Transmission-Based No Precautions Height and Weight Height 5 ft 8 in Weight 62.777 kg Weight in Pounds 138.4 lbs Body Mass Index (BMI) 21.0 21.0 BMI Classification Normal Normal BSA - Brittany 1.75 Vital Signs Temperature (97.8 F-99.1 F) 96.8 F L Temperature Source Temporal Pulse Rate (60-100) 86 90 Pulse Location Monitor Monitor Respiratory Rate (12-18) 18 16 Respiratory rate source Observation Observation Oxygen Delivery Method Room Air Room Air Blood Pressure (90/60-120/80) 139/102 H 131/88 H Blood Pressure Mean (mm Hg) 114 102 Source Monitor Monitor Position Semi-Fowlers Sitting Blood Pressure Location Right Arm Left Arm History Since Last Visit- (Skip if this is Patient's initial visit) Have you changed medications since your No last visit? Any new allergies or adverse reactions No Had a fall/change in ADL's that may No increase risk of falls Signs or symptoms of abuse and/or No neglect since last visit Have you been in the hospital since your No last visit? Has dressing in place as prescribed Yes Has compression in place as prescribed Yes Has offloadiing in place as prescribed N/A Experienced any changes in pain level or No management Left Footwear Regular Shoe Regular Shoe Right Footwear Regular Shoe Regular Shoe Pain Scale: 0-10 Numeric Is Patient Pain Free? Yes Yes Lower Extremity Assessment/ Foot Assessment/ Toe Nail Assessment Right -Posterior Tibial Doppler Monophasic -Dorsalis Pedis Doppler Multiphasic -Extremity Color Hemosiderin -Hair Growth on Legs Yes -Capillary Refill Greater than 3 Seconds Left -Posterior Tibial Doppler Inaudible -Dorsalis Pedis Doppler Multiphasic -Extremity Color Hemosiderin -Hair Growth on Legs Yes -Capillary Refill Greater than 3 Seconds Communication Assessment Preferred language Greenlandic Able to Read Yes Able to Write Yes Communication Tools None Caregiver Communication Skills No Impairment Impairment Right Hearing Abillity Normal Left Hearing Abillity Normal Visual Assistive Devices Glasses Teaching Assessment Preferences Verbal,Written, Demonstration Barriers to Learning None Readiness To Learn Excellent Willingness to Engage in Self Management High Activies Readiness to Engage in Self Management High Activities Anxiety Level Calm Cooperation Cooperative Perception Coherent Interest in Health Problem Asks Questions Education Importance Acknowledges Need Does Patient Smoke tobacco or other Yes substances Smoking Status Never smoker Is Patient Diabetic No Functional Assessment Recent Decline in Ability to Perform Denies Any Declines 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 [employer] Retailer Sales Consultant to contact place of orthodox No WC - Nurse 1 - General Ulcer Measurement Start: 05/21/23 13:12 Freq: Status: Active Protocol: Activity Type Activity Date Activity User E-sign Co-sign Detail Recorded Client Recorded Date Recorded By Document 05/21/23 13:12 KW Desktop 05/21/23 13:36 KW Document 05/28/23 13:02 BMF Desktop 05/28/23 13:07 BMF 05/21/23 05/28/23 13:12 13:02 Wound Center Nurse 1 #7 LT LAT LE -Combined with other wound No -Current Size (cm) - Length 1.4 1.2 -Current Size (cm) - Width 1.2 0.9 -Current Size (cm) - Depth 0.2 0.2 -Total Square Cm 1.68 1.08 -Date of Last Picture (Recall this 05/28/23 field) -Photo Taken Yes Yes -Epithelialization None Present -Tunneling No -Undermining/Tunneling No -Circular Undermining No -Exudate Amt Small Medium -Exudate Type Serosanguineous Serosanguineous -Wound Margin Distinct, Distinct, Outline Outline Attached Attached -Granulation Amt Small (1-33%) Small (1-33%) -Granulation Quality Stonewall Red -Slough/Fibrin Yes -Necrosis Amt Large (67-100%) Large (67-100%) -Necrotic Tissue Type Adherent Slough Adherent Slough -Texture (Kajal-wound Skin Appearance) Assessed Assessed, Fluctuance -Moisture (Kajal-wound Skin Appearance) Assessed Assessed,Dry/ Scaly -Color (Kajal-wound Skin Appearance) Assessed Assessed -Temperature (Kajal-wound Skin No Abnormality Appearance) (Pt Warm) -Tenderness on Palpation (Kajal-wound No Skin Appearance) -Ulcer Cleansing Soap and Water Rinsed/ Irrigated with Saline -Foul Odor after Cleansing No -Anesthetic Used 5% Lidocaine 5% Lidocaine Gel Gel Right Calf (cm) 31.2 Right Ankle (cm) 20.6 Left Calf (cm) 32.6 30.6 Left Ankle (cm) 21.0 20.2 - Nurse 2 - General Ulcer CM Notes Start: 05/21/23 13:12 Freq: Status: Active Protocol: Activity Type Activity Date Activity User E-sign Co-sign Detail Recorded Client Recorded Date Recorded By Document 05/21/23 14:05 Desktop 05/21/23 14:06 Document 05/28/23 13:13 Laptop 05/28/23 13:15 05/21/23 05/28/23 14:05 13:13 Wound Center Nurse 2 #7 LT LAT LE -Time 14:06 13:13 -Correct Patient Yes Yes -Correct Side, Site, Position Yes Yes -Correct Procedure Yes Yes -Procedure Performed Yes Yes -Type of Procedure Debridement Debridement -Clinical Debridement Subcutaneous Subcutaneous -Tissue Removed Subcutaneous Subcutaneous -Post Debridement (cm) - Length 1.8 1.4 -Post Debridement (cm) - Width 1.3 1.0 -Post Debridement (cm) - Depth 0.2 0.2 -Total Square (Post) (cm) 2.34 1.40 -Area of Debridement (cm) - Length 1.8 1.4 -Area of Debridement (cm) - Width 1.3 1.0 -Total Square (Area) (cm) 2.34 1.40 -Tunneling No No -Undermining/Tunneling No No -Circular Undermining No No -Wound/Ulcer Outcome Not Healed Not Healed -Ulcer Cleansing Rinsed/ Rinsed/ Irrigated with Irrigated with Saline Saline -Foul Odor after Cleansing No No -Bioengineered Tissue No No -Bleeding Controlled with Pressure Pressure -Treatment Response Procedure Procedure Tolerated Well Tolerated Well -Offloading No No -Debridement - Subq, 1st 20sq cm Yes Yes Pain Scale: 0-10 Numeric Is Patient Pain Free? Yes Yes - Nurse 3 - General Ulcer D/C NN Start: 05/21/23 13:12 Freq: Status: Active Protocol: Activity Type Activity Date Activity User E-sign Co-sign Detail Recorded Client Recorded Date Recorded By Document 05/21/23 14:24 DL [id number] 05/21/23 14:25 DL 05/21/23 14:24 Wound Care Center Nurse 3 #7 LT LAT LE -Ulcer Cleansing Rinsed/ Irrigated with Saline -Foul Odor after Cleansing No -Other Dressing wet to dry -Primary Dressing Covered/Secured with Dry Gauze & Roll Gauze, Secured with Tape David -Tubular Bandage Single Layer -Size of Tubigrip Used Size D -Size D ($) 1 Treatment Response Procedure Tolerated Well Pain Scale: 0-10 Numeric Is Patient Pain Free? Yes WC - Visit Discharge Discharge Condition Stable Ambulatory Status Ambulatory, Walker Notes: Pt to apply santyl when available. 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 All findings were discussed with the patient. All questions were answered to the patient's satisfaction. Excisional debridement down to and including subcutaneous tissue with a number 5 mm dermal curette to left lateral ulceration left leg. Predebridement measurement is 1.3 x 0.9 x 0.1 cm. Postdebridement measurement is 1.4 x 1.0 x 0.2 cm. The ulceration was dressed with Santyl, saline wet-to-dry and a double layer Tubigrip was applied. Patient will continue dressing changes daily at her facility. She will continue to take the doxycycline as written. After reviewing the patient's venous studies there shows evidence of incompetence to the SFJ of the right lower extremity as well as the SSV of the proximal calf. Left lower extremity shows evidence of incompetence to the GSV as well as ASV of the left lower extremity. The patient's arterial studies to show triphasic waveforms bilateral. The right HARRISON is 1.2, left HARRISON is 1.16, the right TBI 0.86, left TBI is 0.92. Follow-up in 1 week. (2) PVD (peripheral vascular disease): CODE(S): I73.9 - Peripheral vascular disease, unspecified (3) Cellulitis of left lower extremity: CODE(S): L03.116 - Cellulitis of left lower limb
[2023-06-04 13:12] VITALS: BP 116/67; PULSE 89; RESP 20; TEMP 37.1; BMI 21.0
--- NOTE | 2023-06-04 13:33 | PN.PCM_ITS ---
History of Present Illness Date of Service: 06/04/23 Chief Complaint: Nonhealing ulcer left lower extremity History of Wound: This is a 79-year-old white female known to me previously who was recently discharged from the [facility] in November 2018 who presents to the wound center today for nonhealing ulcer on her left lower extrtemity x 2 weeks. She has a past medical history which is significant for hypertension, venous insufficiency, vertigo and peripheral vascular disease. The patient has not been utilizing any intervention for wound care and has been wearing compression socks that are 15-20 mm Hg but has not been elevating her legs as much as she should. She denies any fever, chills, nausea, vomiting, shortness of breath, chest pain or pressure. Patient states she fell in her bathroom on [address] on and since then has had this open wound that will not heal. She is very touchy about having it debrided and touched. Subjective Subjective Mrs. Hurtado is a 83-year-old female with a chief complaint of a full-thickness wound to the left leg. She has been compliant with her dressing changes status is kept her compression stocking on bilaterally as well as keeping them clean dry and intact. She presents today for graft application and she has been approved. She denies any new onset of trauma. She denies any new ulcerations. She denies constitutional symptoms. No other pedal plaints at this time. Objective Data Objective Data Vital Signs: Vital Signs Temp Pulse Resp BP O2 Del Method 98.7 F 89 20 H 116/67 Room Air 06/04/23 13:12 06/04/23 13:12 06/04/23 13:12 06/04/23 13:12 05/28/23 13:02 Oxygen Delivery Method Room Air Weight: 62.777 kg Body Mass Index (BMI) 21.0 Lab / Micro Data Micro: Microbiology 05/22/23 13:57 Wound - Leg, Left Gram Stain - Final 05/22/23 13:57 Wound - Leg, Left Wound Culture - Preliminary Gram Positive Cocci Staphylococcus lugdunensis 05/22/23 13:57 Wound - Leg, Left Anaerobic Culture - Final No anaerobic bacteria isolated. Physical Exam Narrative Vascular: DP and PT pulses are faintly palpable. CFT is brisk. Evidence of varicosities appreciated bilateral lower extremity. Nonpitting edema appreciated left lower extremity. Skin temperature great is warm to cold from proximal ankle to distal digits to left lower extremity. Neurological: Light touch intact. Patient response to painful stimuli. Protective sensation is present. Dermatological: Full-thickness ulceration to the left lateral leg measuring 1.1 x 1.0 x 0.1 cm. Wound base is fibrogranular nature. No evidence of serous drainage. No evidence of erythema, proximal streaking or sign of infection. Excisional debridement down to and including subcutaneous tissue with a #15 blade to the left lateral leg without incident. Predebridement measurement was 0.9 x 0.9 x 0.1 cm. Postdebridement measurement is 1.1 x 1.0 x 0.1 cm. EpiFix 18 mm disc was applied to the left lateral full-thickness ulceration with 100% use. First application. The graft site was free and clear of any infecti on. The wound/skin graft substitute was dressed with nonadherent bandage secured in place with Steri-Strips followed by bolster dressing as well as a double layer Tubigrip. Musculoskeletal: Mild to moderate palpatory tenderness is appreciated to the full-thickness ulceration left leg. No pain with calf pressure. Debridement Note Debridement Note Debridement Free Text: Excisional debridement down to and including subcutaneous tissue with a #15 blade to the left lateral leg without incident. Predebridement measurement was 0.9 x 0.9 x 0.1 cm. Postdebridement measurement is 1.1 x 1.0 x 0.1 cm. EpiFix 18 mm disc was applied to the left lateral full-thickness ulceration with 100% use. First application. The graft site was free and clear of any infection. The wound/skin graft substitute was dressed with nonadherent bandage secured in place with Steri-Strips followed by bolster dressing as well as a double layer Tubigrip. Post-Debridement Measurements and Additional Note: Post-Debridement Measurements/Treatment WC - Nurse 1 - General Ulcer Assessment Start: 05/21/23 13:12 Freq: Status: Active Protocol: [email or web address] Activity Type Activity Date Activity User E-sign Co-sign Detail Recorded Client Recorded Date Recorded By Document 05/21/23 13:12 KW Desktop 05/21/23 13:36 KW Edit Result 05/21/23 13:12 KW (1) Desktop 05/21/23 13:39 KW Document 12/20/23 13:02 BMF Desktop 05/28/23 13:07 BMF Document 06/04/23 13:12 DL Desktop 06/04/23 13:17 DL (1) Height => 5 ft 8 in Weight => 62.777 kg Weight in Pounds => 138.4 lbs Body Mass Index (BMI) => 21.0 BMI Classification => Normal BSA - Brittany => 1.75 05/21/23 05/28/23 06/04/23 13:12 13:02 13:12 WC - Today's Visit Information Type of service Initial Visit Follow-up Visit Follow-up Visit (Physician/PULP PLANT SUPERVISOR (Physician/PULP PLANT SUPERVISOR ) ) Arrival Mode Ambulatory, Ambulatory, Ambulatory, Walker Walker Walker Transfer Assistance None None Patient Identification Verified (Name & Yes Yes Yes ) Patient Requires Transmission-Based No No Precautions Height and Weight Height 5 ft 8 in Weight 62.777 kg Weight in Pounds 138.4 lbs Body Mass Index (BMI) 21.0 21.0 21.0 BMI Classification Normal Normal Normal BSA - Brittany 1.75 Vital Signs Temperature (97.8 F-99.1 F) 96.8 F L 98.7 F Temperature Source Temporal Temporal Pulse Rate (60-100) 86 90 89 Pulse Location Monitor Monitor Monitor Respiratory Rate (12-18) 18 16 20 H Respiratory rate source Observation Observation Observation Oxygen Delivery Method Room Air Room Air Blood Pressure (90/60-120/80) 139/102 H 131/88 H 116/67 Blood Pressure Mean (mm Hg) 114 102 83 Source Monitor Monitor Monitor Position Semi-Fowlers Sitting Blood Pressure Location Right Arm Left Arm History Since Last Visit- (Skip if this is Patient's initial visit) Have you changed medications since your No No last visit? Any new allergies or adverse reactions No No Had a fall/change in ADL's that may No No increase risk of falls Signs or symptoms of abuse and/or No No neglect since last visit Have you been in the hospital since your No No last visit? Has dressing in place as prescribed Yes Yes Has compression in place as prescribed Yes Yes Has offloadiing in place as prescribed N/A N/A Experienced any changes in pain level or No No management Left Footwear Regular Shoe Regular Shoe Right Footwear Regular Shoe Regular Shoe Pain Scale: 0-10 Numeric Is Patient Pain Free? Yes Yes Yes Lower Extremity Assessment/ Foot Assessment/ Toe Nail Assessment Right -Posterior Tibial Doppler Monophasic -Dorsalis Pedis Doppler Multiphasic -Extremity Color Hemosiderin -Hair Growth on Legs Yes -Capillary Refill Greater than 3 Seconds Left -Posterior Tibial Doppler Inaudible -Dorsalis Pedis Doppler Multiphasic -Extremity Color Hemosiderin -Hair Growth on Legs Yes -Capillary Refill Greater than 3 Seconds Communication Assessment Preferred language Zimbabwean Able to Read Yes Able to Write Yes Communication Tools None Caregiver Communication Skills No Impairment Impairment Right Hearing Abillity Normal Left Hearing Abillity Normal Visual Assistive Devices Glasses Teaching Assessment Preferences Verbal,Written, Demonstration Barriers to Learning None Readiness To Learn Excellent Willingness to Engage in Self Management High Activies Readiness to Engage in Self Management High Activities Anxiety Level Calm Cooperation Cooperative Perception Coherent Interest in Health Problem Asks Questions Education Importance Acknowledges Need Does Patient Smoke tobacco or other Yes substances Smoking Status Never smoker Is Patient Diabetic No Functional Assessment Recent Decline in Ability to Perform Denies Any Declines Culture/Sabianist/Medical Records Specialist Cultural/Sabianist Needs that may affect No Treatment Plan Would you allow our hospital transporter radiology to No meet you for the purpose of spiritual/ emotional support? Medical Records Specialist to contact place [facility] No WC - Nurse 1 - General Ulcer Measurement Start: 05/21/23 13:12 Freq: Status: Active Protocol: Activity Type Activity Date Activity User E-sign Co-sign Detail Recorded Client Recorded Date Recorded By Document 05/21/23 13:12 KW Desktop 05/21/23 13:36 KW Document 05/28/23 13:02 [facility] Desktop 05/28/23 13:07 BMF Document 06/04/23 13:12 DL Desktop 06/04/23 13:17 DL 05/21/23 05/28/23 06/04/23 13:12 13:02 13:12 Wound Center Nurse 1 #7 LT LAT LE -Combined with other wound No -Current Size (cm) - Length 1.4 1.2 1.1 -Current Size (cm) - Width 1.2 0.9 0.8 -Current Size (cm) - Depth 0.2 0.2 0.2 -Total Square Cm 1.68 1.08 0.88 -Date of Last Picture (Recall this 12/20/23 field) -Photo Taken Yes Yes -Epithelialization None Present -Tunneling No -Undermining/Tunneling No -Circular Undermining No -Exudate Amt Small Medium Small -Exudate Type Serosanguineous Serosanguineous Serosanguineous -Wound Margin Distinct, Distinct, Distinct, Outline Outline Outline Attached Attached Attached -Granulation Amt Small (1-33%) Small (1-33%) Small (1-33%) -Granulation Quality Marissa Red Marissa -Slough/Fibrin Yes -Necrosis Amt Large (67-100%) Large (67-100%) Large (67-100%) -Necrotic Tissue Type Adherent Slough Adherent Slough Adherent Slough -Structure Exposed N/A -Texture (Kajal-wound Skin Appearance) Assessed Assessed, Scarring Fluctuance -Moisture (Kajal-wound Skin Appearance) Assessed Assessed,Dry/ Dry/Scaly Scaly -Color (Kajal-wound Skin Appearance) Assessed Assessed Hemosiderin Staining -Temperature (Kajal-wound Skin No Abnormality Appearance) (Pt Warm) -Tenderness on Palpation (Kajal-wound No Skin Appearance) -Ulcer Cleansing Soap and Water Rinsed/ Rinsed/ Irrigated with Irrigated with Saline Saline -Foul Odor after Cleansing No No -Anesthetic Used 5% Lidocaine 5% Lidocaine 5% Lidocaine Gel Gel Gel Right Calf (cm) 31.2 30.7 Right Ankle (cm) 20.6 20.6 Left Calf (cm) 32.6 30.6 29.5 Left Ankle (cm) 21.0 20.2 20.3 WC - Nurse 2 - General Ulcer CM Notes Start: 05/21/23 13:12 Freq: Status: Active Protocol: Activity Type Activity Date Activity User E-sign Co-sign Detail Recorded Client Recorded Date Recorded By Document 05/21/23 14:05 Desktop 05/21/23 14:06 Document 05/28/23 13:13 Laptop 05/28/23 13:15 05/21/23 05/28/23 14:05 13:13 Wound Center Nurse 2 #7 LT LAT LE -Time 14:06 13:13 -Correct Patient Yes Yes -Correct Side, Site, Position Yes Yes -Correct Procedure Yes Yes -Procedure Performed Yes Yes -Type of Procedure Debridement Debridement -Clinical Debridement Subcutaneous Subcutaneous -Tissue Removed Subcutaneous Subcutaneous -Post Debridement (cm) - Length 1.8 1.4 -Post Debridement (cm) - Width 1.3 1.0 -Post Debridement (cm) - Depth 0.2 0.2 -Total Square (Post) (cm) 2.34 1.40 -Area of Debridement (cm) - Length 1.8 1.4 -Area of Debridement (cm) - Width 1.3 1.0 -Total Square (Area) (cm) 2.34 1.40 -Tunneling No No -Undermining/Tunneling No No -Circular Undermining No No -Wound/Ulcer Outcome Not Healed Not Healed -Ulcer Cleansing Rinsed/ Rinsed/ Irrigated with Irrigated with Saline Saline -Foul Odor after Cleansing No No -Bioengineered Tissue No No -Bleeding Controlled with Pressure Pressure -Treatment Response Procedure Procedure Tolerated Well Tolerated Well -Offloading No No -Debridement - Subq, 1st 20sq cm Yes Yes Pain Scale: 0-10 Numeric Is Patient Pain Free? Yes Yes - Nurse 3 - General Ulcer D/C NN Start: 05/21/23 13:12 Freq: Status: Active Protocol: Activity Type Activity Date Activity User E-sign Co-sign Detail Recorded Client Recorded Date Recorded By Document 05/21/23 14:24 DL [id number] 05/21/23 14:25 DL Document 05/28/23 13:23 [facility] Desktop 05/28/23 13:24 [facility] 05/21/23 05/28/23 14:24 13:23 Wound Care Center Nurse 3 #7 LT LAT LE -Ulcer Cleansing Rinsed/ Rinsed/ Irrigated with Irrigated with Saline Saline -Foul Odor after Cleansing No No -Other Dressing wet to dry HYDROGEL -Primary Dressing Covered/Secured with Dry Gauze & Dry Gauze & Roll Gauze, Roll Gauze, Secured with Secured with Tape Tape Left -Tubular Bandage Double Layer -Size of Tubigrip Used Size D -Size D ($) 2 -Other DOUBLE LAYER D ON RLE ON ALREADY AND IN GOOD CONDITION David -Tubular Bandage Single Layer -Size of Tubigrip Used Size D -Size D ($) 1 Treatment Response Procedure Procedure Tolerated Well Tolerated Well Pain Scale: 0-10 Numeric Is Patient Pain Free? Yes Yes WC - Visit Discharge Discharge Condition Stable Stable Ambulatory Status Ambulatory, Ambulatory, Walker Walker Transportation Private Auto Notes: Pt to apply santyl when available. 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 All findings were discussed with the patient. All questions were answered to the patient's satisfaction. Excisional debridement down to and including subcutaneous tissue with a #15 blade to the left lateral leg without incident. Predebridement measurement was 0.9 x 0.9 x 0.1 cm. Postdebridement measurement is 1.1 x 1.0 x 0.1 cm. EpiFix 18 mm disc was applied to the left lateral full-thickness ulceration with 100% use. First application. The graft site was free and clear of any infection. The wound/skin graft substitute was dressed with nonadherent bandage secured in place with Steri-Strips followed by bolster dressing as well as a double layer Tubigrip. Follow-up at the wound care center with Dr. Bernal in 1 week. (2) PVD (peripheral vascular disease): CODE(S): I73.9 - Peripheral vascular disease, unspecified
== END 2023-06-08 23:59 | disposition home or self-care (01) ==
LOC: WC 13:00
PROVIDERS: PCP Student in an Organized Health Care Education/Training Program; Referring Provider Internal Medicine; Visit Provider Podiatrist Foot & Ankle Surgery
DX: L97.822 Non-pressure chronic ulcer of other part of left lower leg with fat layer exposed (principal); I73.9 Peripheral vascular disease, unspecified; L03.116 Cellulitis of left lower limb; I10 Essential (primary) hypertension; R60.0 Localized edema; M79.605 Pain in left leg
CPT/HCPCS: 11042; 15271; 87070; 87075; 87077; 87101; 87186; 87205; 93923; 93970; 99214; Q4186; G0463

== ENCOUNTER 2023-06-25 13:45 | Outpatient (RCR) | payer MEDICARE, MEDICAID, SELFPAY ==
[2023-06-09 00:26] VITALS: BP 116/67; PULSE 89; RESP 20; TEMP 37.1; BMI 21.0
[2023-06-11 13:11] VITALS: BP 123/69; PULSE 83; RESP 18; BMI 21.0
--- NOTE | 2023-06-11 13:50 | PCM.WC.PN ---
History of Present Illness Date of Service: 06/11/23 Chief Complaint: Nonhealing ulcer left lower extremity History of Wound: This is a 79-year-old white female known to me previously who was recently discharged from the [facility] in November 2018 who presents to the wound center today for nonhealing ulcer on her left lower extrtemity x 2 weeks. She has a past medical history which is significant for hypertension, venous insufficiency, vertigo and peripheral vascular disease. The patient has not been utilizing any intervention for wound care and has been wearing compression socks that are 15-20 mm Hg but has not been elevating her legs as much as she should. She denies any fever, chills, nausea, vomiting, shortness of breath, chest pain or pressure. Patient states she fell in her bathroom on [address] on and since then has had this open wound that will not heal. She is very touchy about having it debrided and touched. Subjective Subjective Mrs. Hurtado is a 83-year-old female with a chief complaint of a full-thickness wound to the left leg. She has been compliant with her dressing changes status is kept her compression stocking on bilaterally as well as keeping them clean dry and intact. She presents today for graft application. She denies any new onset of trauma. She denies any new ulcerations. She denies constitutional symptoms. No other pedal plaints at this time. Objective Data Objective Data Vital Signs: Vital Signs Temp Pulse Resp BP O2 Del Method 98.7 F 83 18 123/69 H Room Air 06/09/23 00:26 06/11/23 13:11 06/11/23 13:11 06/11/23 13:11 06/11/23 13:11 Oxygen Delivery Method Room Air Weight: 62.777 kg Body Mass Index (BMI) 21.0 Physical Exam Narrative Vascular: DP and PT pulses are faintly palpable. CFT is brisk. Evidence of varicosities appreciated bilateral lower extremity. Nonpitting edema appreciated left lower extremity. Skin temperature great is warm to cold from proximal ankle to distal digits to left lower extremity. Neurological: Light touch intact. Patient response to painful stimuli. Protective sensation is present. Dermatological: Full-thickness ulceration to the left lateral leg measuring 1.0 x 0.7 x 0.1 cm. Wound base is fibrogranular nature. No evidence of serous drainage. No evidence of erythema, proximal streaking or sign of infection. Excisional debridement down to and including subcutaneous tissue with a #15 blade to the left lateral leg without incident. Predebridement measurement was 0.8 x 0.6 x 0.1 cm. Postdebridement measurement is 1.0 x 0.7 x 0.1 cm. EpiFix 18 mm disc was applied to the left lateral full-thickness ulceration with 100% use. Second application. The graft site was free and clear of any infection. The wound/skin graft substitute was dressed with nonadherent bandage secured in place with Steri-Strips followed by bolster dressing as well as a double layer Tubigrip. Musculoskeletal: Mild to moderate palpatory tenderness is appreciated to the full-thickness ulceration left leg. No pain with calf pressure. Debridement Note Debridement Note Debridement Free Text: Excisional debridement down to and including subcutaneous tissue with a #15 blade to the left lateral leg without incident. Predebridement measurement was 0.8 x 0.6 x 0.1 cm. Postdebridement measurement is 1.0 x 0.7 x 0.1 cm. EpiFix 18 mm disc was applied to the left lateral full-thickness ulceration with 100% use. Second application. The graft site was free and clear of any infection. The wound/skin graft substitute was dressed with nonadherent bandage secured in place with Steri-Strips followed by bolster dressing as well as a double layer Tubigrip. Post-Debridement Measurements and Additional Note: Post-Debridement Measurements/Treatment - Nurse 1 - General Ulcer Assessment Start: 06/11/23 13:11 Freq: Status: Active Protocol: JACK.TRINH Activity Type Activity Date Activity User E-sign Co-sign Detail Recorded Client Recorded Date Recorded By Document 06/11/23 13:11 KW Desktop 06/11/23 13:19 KW 06/11/23 13:11 - Today's Visit Information Type of service Follow-up Visit (Physician/RELOCATION COORDINATOR ) Arrival Mode Ambulatory, Walker Patient Identification Verified (Name & Yes ) Height and Weight Body Mass Index (BMI) 21.0 BMI Classification Normal Vital Signs Pulse Rate (60-100) 83 Pulse Location Monitor Respiratory Rate (12-18) 18 Respiratory rate source Observation Oxygen Delivery Method Room Air Blood Pressure (90/60-120/80) 123/69 H Blood Pressure Mean (mm Hg) 87 Source Monitor Position Sitting Blood Pressure Location Right Arm History Since Last Visit- (Skip if this is Patient's initial visit) Have you changed medications since your No last visit? Any new allergies or adverse reactions No Had a fall/change in ADL's that may No increase risk of falls Signs or symptoms of abuse and/or No neglect since last visit Have you been in the hospital since your No last visit? Has dressing in place as prescribed Yes Has compression in place as prescribed Yes Has offloadiing in place as prescribed No Experienced any changes in pain level or No management Left Footwear Regular Shoe Right Footwear Regular Shoe Pain Scale: 0-10 Numeric Is Patient Pain Free? Yes WC - Nurse 1 - General Ulcer Measurement Start: 06/11/23 13:11 Freq: Status: Active Protocol: Activity Type Activity Date Activity User E-sign Co-sign Detail Recorded Client Recorded Date Recorded By Document 06/11/23 13:11 KW Desktop 06/11/23 13:19 KW 06/11/23 13:11 Wound Center Nurse 1 #7 LT LAT LE -Current Size (cm) - Length 1.2 -Current Size (cm) - Width 0.7 -Current Size (cm) - Depth 0.1 -Total Square Cm 0.84 -Exudate Amt Medium -Exudate Type Serosanguineous -Wound Margin Distinct, Outline Attached -Texture (Kajal-wound Skin Appearance) Assessed -Moisture (Kajal-wound Skin Appearance) Assessed -Color (Kajal-wound Skin Appearance) Assessed -Temperature (Kajal-wound Skin No Abnormality Appearance) (Pt Warm) -Ulcer Cleansing Soap and Water -Foul Odor after Cleansing No -Anesthetic Used 5% Lidocaine Gel Left Calf (cm) 30 Left Ankle (cm) 20.5 - Nurse 2 - General Ulcer CM Notes Start: 06/11/23 13:11 Freq: Status: Active Protocol: Activity Type Activity Date Activity User E-sign Co-sign Detail Recorded Client Recorded Date Recorded By Document 06/11/23 13:41 JF Laptop 06/11/23 13:43 JF 06/11/23 13:41 Wound Center Nurse 2 #7 LT LAT LE -Time 13:42 -Correct Patient Yes -Correct Side, Site, Position Yes -Correct Procedure Yes -Procedure Performed Yes -Type of Procedure Debridement -Clinical Debridement Subcutaneous -Tissue Removed Subcutaneous -Post Debridement (cm) - Length 1.0 -Post Debridement (cm) - Width 0.7 -Post Debridement (cm) - Depth 0.1 -Total Square (Post) (cm) 0.70 -Area of Debridement (cm) - Length 1.0 -Area of Debridement (cm) - Width 0.7 -Total Square (Area) (cm) 0.70 -Tunneling No -Undermining/Tunneling No -Circular Undermining No -Wound/Ulcer Outcome Not Healed -Ulcer Cleansing Rinsed/ Irrigated with Saline -Foul Odor after Cleansing No -Bioengineered Tissue Yes -Type of Bioengineered Tissue Epifix 18mm Disc -Expiration Date 02/08/28 -Product Lot Number [id number] -Percent Used 100 -Lot number of Saline Used [id number] -Bleeding Controlled with Pressure -Treatment Response Procedure Tolerated Well -Offloading No -Debridement - Subq, 1st 20sq cm No -Apply Skin Sub - 1st 25 sq cm - Legs 1 -Epifix 18mm Disc 3 Pain Scale: 0-10 Numeric Is Patient Pain Free? Yes - Nurse 3 - General Ulcer D/C NN Start: 06/11/23 13:11 Freq: Status: Active Protocol: Activity Type Activity Date Activity User E-sign Co-sign Detail Recorded Client Recorded Date Recorded By Document 06/11/23 13:46 KW Desktop 06/11/23 13:47 KW 06/11/23 13:46 Wound Care Center Nurse 3 #7 LT LAT LE -Primary Dressing Covered/Secured with Dry Gauze & Roll Gauze, Secured with Tape Left -Tubular Bandage Double Layer -Size of Tubigrip Used Size D -Size D ($) 2 Pain Scale: 0-10 Numeric Is Patient Pain Free? 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 All findings were discussed with the patient. All questions were answered to the patient's satisfaction. Excisional debridement down to and including subcutaneous tissue with a #15 blade to the left lateral leg without incident. Predebridement measurement was 0.8 x 0.6 x 0.1 cm. Postdebridement measurement is 1.0 x 0.7 x 0.1 cm. EpiFix 18 mm disc was applied to the left lateral full-thickness ulceration with 100% use. Second application. The graft site was free and clear of any infection. The wound/skin graft substitute was dressed with nonadherent bandage secured in place with Steri-Strips followed by bolster dressing as well as a double layer Tubigrip. Follow-up at the wound care center with Dr. Bernal in 1 week. (2) PVD (peripheral vascular disease): CODE(S): I73.9 - Peripheral vascular disease, unspecified
[2023-06-18 13:58] VITALS: RESP 18; BMI 21.0
--- NOTE | 2023-06-18 15:28 | PCM.WC.PN ---
History of Present Illness Date of Service: 06/18/23 Chief Complaint: Nonhealing ulcer left lower extremity History of Wound: This is a 79-year-old white female known to me previously who was recently discharged from the [facility] in November 2018 who presents to the wound center today for nonhealing ulcer on her left lower extrtemity x 2 weeks. She has a past medical history which is significant for hypertension, venous insufficiency, vertigo and peripheral vascular disease. The patient has not been utilizing any intervention for wound care and has been wearing compression socks that are 15-20 mm Hg but has not been elevating her legs as much as she should. She denies any fever, chills, nausea, vomiting, shortness of breath, chest pain or pressure. Patient states she fell in her bathroom on [address] on and since then has had this open wound that will not heal. She is very touchy about having it debrided and touched. Subjective Subjective Mrs. Hurtado is a 83-year-old female with a chief complaint of a full-thickness wound to the left leg. She has been compliant with her dressing changes status is kept her compression stocking on bilaterally as well as keeping them clean dry and intact. She presents today for graft application. She denies any new onset of trauma. She denies any new ulcerations. She denies constitutional symptoms. No other pedal plaints at this time. Objective Data Objective Data Vital Signs: Vital Signs Temp Pulse Resp BP O2 Del Method 98.7 F 83 18 123/69 H Room Air 06/09/23 00:26 06/11/23 13:11 06/18/23 13:58 06/11/23 13:11 06/18/23 13:58 Oxygen Delivery Method Room Air Weight: 62.777 kg Body Mass Index (BMI) 21.0 Physical Exam Narrative Vascular: DP and PT pulses are faintly palpable. CFT is brisk. Evidence of varicosities appreciated bilateral lower extremity. Nonpitting edema appreciated left lower extremity. Skin temperature great is warm to cold from proximal ankle to distal digits to left lower extremity. Neurological: Light touch intact. Patient response to painful stimuli. Protective sensation is present. Dermatological: Full-thickness ulceration to the left lateral leg measuring 0.5 x 0.3 x 0.1 cm. Wound base is fibrogranular nature. No evidence of serous drainage. No evidence of erythema, proximal streaking or sign of infection. Excisional debridement down to and including subcutaneous tissue with a #15 blade to the left lateral leg without incident. Predebridement measurement was 0.4 x 0.2 x 0.1 cm. Postdebridement measurement is 0.5 x 0.3 x 0.1 cm. EpiFix 18 mm disc was applied to the left lateral full-thickness ulceration with 100% use. Third application. The graft site was free and clear of any infection. The wound/skin graft substitute was dressed with nonadherent bandage secured in place with Steri-Strips followed by bolster dressing as well as a double layer Tubigrip. Musculoskeletal: Mild to moderate palpatory tenderness is appreciated to the full-thickness ulceration left leg. No pain with calf pressure. Debridement Note Debridement Note Debridement Free Text: Excisional debridement down to and including subcutaneous tissue with a #15 blade to the left lateral leg without incident. Predebridement measurement was 0.4 x 0.2 x 0.1 cm. Postdebridement measurement is 0.5 x 0.3 x 0.1 cm. EpiFix 18 mm disc was applied to the left lateral full-thickness ulceration with 100% use. Third application. The graft site was free and clear of any infection. The wound/skin graft substitute was dressed with nonadherent bandage secured in place with Steri-Strips followed by bolster dressing as well as a double layer Tubigrip. Post-Debridement Measurements and Additional Note: Post-Debridement Measurements/Treatment - Nurse 1 - General Ulcer Assessment Start: 06/11/23 13:11 Freq: Status: Active Protocol: JACK.TRINH Activity Type Activity Date Activity User E-sign Co-sign Detail Recorded Client Recorded Date Recorded By Document 06/11/23 13:11 KW Desktop 06/11/23 13:19 KW Document 06/18/23 13:58 KW Desktop 06/18/23 14:03 KW 06/11/23 06/18/23 13:11 13:58 - Today's Visit Information Type of service Follow-up Visit Follow-up Visit (Physician/BROOMCORN GRADER (Physician/BROOMCORN GRADER ) ) Arrival Mode Ambulatory, Ambulatory, Walker Walker Patient Identification Verified (Name & Yes Yes ) Height and Weight Body Mass Index (BMI) 21.0 21.0 BMI Classification Normal Normal Vital Signs Pulse Rate (60-100) 83 Pulse Location Monitor Monitor Respiratory Rate (12-18) 18 18 Respiratory rate source Observation Observation Oxygen Delivery Method Room Air Room Air Blood Pressure (90/60-120/80) 123/69 H Blood Pressure Mean (mm Hg) 87 Source Monitor Monitor Position Sitting Semi-Fowlers Blood Pressure Location Right Arm Left Arm History Since Last Visit- (Skip if this is Patient's initial visit) Have you changed medications since your No No last visit? Any new allergies or adverse reactions No No Had a fall/change in ADL's that may No No increase risk of falls Signs or symptoms of abuse and/or No No neglect since last visit Have you been in the hospital since your No No last visit? Has dressing in place as prescribed Yes Yes Has compression in place as prescribed Yes Yes Has offloadiing in place as prescribed No No Experienced any changes in pain level or No No management Left Footwear Regular Shoe Regular Shoe Right Footwear Regular Shoe Regular Shoe Pain Scale: 0-10 Numeric Is Patient Pain Free? Yes Yes WC - Nurse 1 - General Ulcer Measurement Start: 06/11/23 13:11 Freq: Status: Active Protocol: Activity Type Activity Date Activity User E-sign Co-sign Detail Recorded Client Recorded Date Recorded By Document 06/11/23 13:11 KW Desktop 06/11/23 13:19 KW Document 06/18/23 13:58 KW Desktop 06/18/23 14:03 KW 06/11/23 06/18/23 13:11 13:58 Wound Center Nurse 1 #7 LT LAT LE -Current Size (cm) - Length 1.2 1.3 -Current Size (cm) - Width 0.7 0.9 -Current Size (cm) - Depth 0.1 0.1 -Total Square Cm 0.84 1.17 -Exudate Amt Medium Small -Exudate Type Serosanguineous Serosanguineous -Wound Margin Distinct, Distinct, Outline Outline Attached Attached -Texture (Kajal-wound Skin Appearance) Assessed Assessed -Moisture (Kajal-wound Skin Appearance) Assessed Assessed -Color (Kajal-wound Skin Appearance) Assessed Assessed -Temperature (Kajal-wound Skin No Abnormality No Abnormality Appearance) (Pt Warm) (Pt Warm) -Ulcer Cleansing Soap and Water Soap and Water -Foul Odor after Cleansing No -Anesthetic Used 5% Lidocaine 5% Lidocaine Gel Gel -Wound Comment(s) scabbed Left Calf (cm) 30 29.7 Left Ankle (cm) 20.5 20 - Nurse 2 - General Ulcer CM Notes Start: 06/11/23 13:11 Freq: Status: Active Protocol: Activity Type Activity Date Activity User E-sign Co-sign Detail Recorded Client Recorded Date Recorded By Document 06/11/23 13:41 Laptop 06/11/23 13:43 Document 06/18/23 14:21 Laptop 06/18/23 14:25 06/11/23 06/18/23 13:41 14:21 Wound Center Nurse 2 #7 LT LAT LE -Time 13:42 -Correct Patient Yes Yes -Correct Side, Site, Position Yes Yes -Correct Procedure Yes Yes -Procedure Performed Yes Yes -Type of Procedure Debridement Debridement -Clinical Debridement Subcutaneous Subcutaneous -Tissue Removed Subcutaneous Subcutaneous -Post Debridement (cm) - Length 1.0 0.5 -Post Debridement (cm) - Width 0.7 0.3 -Post Debridement (cm) - Depth 0.1 0.1 -Total Square (Post) (cm) 0.70 0.15 -Area of Debridement (cm) - Length 1.0 0.5 -Area of Debridement (cm) - Width 0.7 0.3 -Total Square (Area) (cm) 0.70 0.15 -Tunneling No No -Undermining/Tunneling No No -Circular Undermining No No -Wound/Ulcer Outcome Not Healed Not Healed -Ulcer Cleansing Rinsed/ Rinsed/ Irrigated with Irrigated with Saline Saline -Foul Odor after Cleansing No No -Bioengineered Tissue Yes Yes -Type of Bioengineered Tissue Epifix 18mm Epifix 18mm Disc Disc -Expiration Date 02/08/28 02/08/28 -Product Lot Number [id number] -Percent Used 100 100 -Lot number of Saline Used [id number] -Bleeding Controlled with Pressure Pressure -Treatment Response Procedure Procedure Tolerated Well Tolerated Well -Offloading No No -Debridement - Subq, 1st 20sq cm No No -Apply Skin Sub - 1st 25 sq cm - Legs 1 1 -Epifix 18mm Disc 3 3 Pain Scale: 0-10 Numeric Is Patient Pain Free? Yes Yes - Nurse 3 - General Ulcer D/C NN Start: 06/11/23 13:11 Freq: Status: Active Protocol: Activity Type Activity Date Activity User E-sign Co-sign Detail Recorded Client Recorded Date Recorded By Document 06/11/23 13:46 KW Desktop 06/11/23 13:47 KW Document 06/18/23 14:43 BM Desktop 06/18/23 14:43 BMF 06/11/23 06/18/23 13:46 14:43 Wound Care Center Nurse 3 #7 LT LAT LE -Other Dressing epi -Primary Dressing Covered/Secured with Dry Gauze & Dry Gauze & Roll Gauze, Roll Gauze, Secured with Secured with Tape Tape Left -Tubular Bandage Double Layer Double Layer -Size of Tubigrip Used Size D Size D -Size D ($) 2 1 Treatment Response Procedure Tolerated Well Pain Scale: 0-10 Numeric Is Patient Pain Free? 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 All findings were discussed with the patient. All questions were answered to the patient's satisfaction. Excisional debridement down to and including subcutaneous tissue with a #15 blade to the left lateral leg without incident. Predebridement measurement was 0.4 x 0.2 x 0.1 cm. Postdebridement measurement is 0.5 x 0.3 x 0.1 cm. EpiFix 18 mm disc was applied to the left lateral full-thickness ulceration with 100% use. Third application. The graft site was free and clear of any infection. The wound/skin graft substitute was dressed with nonadherent bandage secured in place with Steri-Strips followed by bolster dressing as well as a double layer Tubigrip. Follow-up at the wound care center with Dr. Bernal in 1 week. (2) PVD (peripheral vascular disease): CODE(S): I73.9 - Peripheral vascular disease, unspecified
[2023-06-25 14:01] VITALS: BP 125/75; PULSE 83; RESP 16; TEMP 35.9; BMI 21.0
--- NOTE | 2023-06-25 14:25 | PN.PCM_ITS ---
History of Present Illness Date of Service: 06/25/23 Chief Complaint: Nonhealing ulcer left lower extremity History of Wound: This is a 79-year-old white female known to me previously who was recently discharged from the [facility] in November 2018 who presents to the wound center today for nonhealing ulcer on her left lower extrtemity x 2 weeks. She has a past medical history which is significant for hypertension, venous insufficiency, vertigo and peripheral vascular disease. The patient has not been utilizing any intervention for wound care and has been wearing compression socks that are 15-20 mm Hg but has not been elevating her legs as much as she should. She denies any fever, chills, nausea, vomiting, shortness of breath, chest pain or pressure. Patient states she fell in her bathroom on [address] on and since then has had this open wound that will not heal. She is very touchy about having it debrided and touched. Subjective Subjective Mrs. Hurtado is a 83-year-old female with a chief complaint of a full-thickness wound to the left leg. She has been compliant with her dressing changes status is kept her compression stocking on bilaterally as well as keeping them clean dry and intact. She presents today for graft application. She denies any new onset of trauma. She denies any new ulcerations. She denies constitutional symptoms. No other pedal plaints at this time. Objective Data Objective Data Vital Signs: Vital Signs Temp Pulse Resp BP O2 Del Method 96.7 F L 83 16 125/75 H Room Air 06/25/23 14:06/25/23 14:06/25/23 14:06/25/23 14:06/25/23 14:01 Oxygen Delivery Method Room Air Weight: 62.777 kg Body Mass Index (BMI) 21.0 Physical Exam Narrative Vascular: DP and PT pulses are faintly palpable. CFT is brisk. Evidence of varicosities appreciated bilateral lower extremity. Nonpitting edema appreciated left lower extremity. Skin temperature great is warm to cold from proximal ankle to distal digits to left lower extremity. Neurological: Light touch intact. Patient response to painful stimuli. Protective sensation is present. Dermatological: Full-thickness ulceration to the left lateral leg hich is now healed. Xerotic skin appreciated Nodrainage. No evidence of erythema, proximal streaking or sign of infection. Musculoskeletal: Mild to moderate palpatory tenderness is appreciated to the full-thickness ulceration left leg. No pain with calf pressure. Debridement Note Debridement Note Post-Debridement Measurements and Additional Note: Post-Debridement Measurements/Treatment - Nurse 1 - General Ulcer Assessment Start: 06/11/23 13:11 Freq: Status: Active Protocol: WC.LOWEXT Activity Type Activity Date Activity User E-sign Co-sign Detail Recorded Client Recorded Date Recorded By Document 06/11/23 13:11 KW Desktop 06/11/23 13:19 KW Document 06/18/23 13:58 KW Desktop 06/18/23 14:03 KW Document 06/25/23 14:01 Desktop 06/25/23 14:09 06/11/23 06/18/23 06/25/23 13:11 13:58 14:01 - Today's Visit Information Type of service Follow-up Visit Follow-up Visit Follow-up Visit (Physician/MACHINE FILLER SHREDDER (Physician/MACHINE FILLER SHREDDER (Physician/MACHINE FILLER SHREDDER ) ) ) Arrival Mode Ambulatory, Ambulatory, Ambulatory, Walker Walker Walker Transfer Assistance None Patient Identification Verified (Name & Yes Yes Yes ) Patient Requires Transmission-Based No Precautions Height and Weight Body Mass Index (BMI) 21.0 21.0 21.0 BMI Classification Normal Normal Normal Vital Signs Temperature (97.8 F-99.1 F) 96.7 F L Temperature Source Temporal Pulse Rate (60-100) 83 83 Pulse Location Monitor Monitor Monitor Respiratory Rate (12-18) 18 18 16 Respiratory rate source Observation Observation Observation Oxygen Delivery Method Room Air Room Air Room Air Blood Pressure (90/60-120/80) 123/69 H 125/75 H Blood Pressure Mean (mm Hg) 87 91 Source Monitor Monitor Monitor Position Sitting Semi-Fowlers Sitting Blood Pressure Location Right Arm Left Arm Right Arm History Since Last Visit- (Skip if this is Patient's initial visit) Have you changed medications since your No No No last visit? Any new allergies or adverse reactions No No No Had a fall/change in ADL's that may No No No increase risk of falls Signs or symptoms of abuse and/or No No No neglect since last visit Have you been in the hospital since your No No No last visit? Has dressing in place as prescribed Yes Yes Yes Has compression in place as prescribed Yes Yes Yes Has offloadiing in place as prescribed No No N/A Experienced any changes in pain level or No No No management Left Footwear Regular Shoe Regular Shoe Regular Shoe Right Footwear Regular Shoe Regular Shoe Regular Shoe Pain Scale: 0-10 Numeric Is Patient Pain Free? Yes Yes Yes WC - Nurse 1 - General Ulcer Measurement Start: 06/11/23 13:11 Freq: Status: Active Protocol: Activity Type Activity Date Activity User E-sign Co-sign Detail Recorded Client Recorded Date Recorded By Document 06/11/23 13:11 KW Desktop 06/11/23 13:19 KW Document 06/18/23 13:58 KW Desktop 06/18/23 14:03 KW Document 06/25/23 14:01 GM Desktop 06/25/23 14:09 GM 06/11/23 06/18/23 06/25/23 13:11 13:58 14:01 Wound Center Nurse 1 #7 LT LAT LE -Combined with other wound No -Current Size (cm) - Length 1.2 1.3 1.5 -Current Size (cm) - Width 0.7 0.9 0.9 -Current Size (cm) - Depth 0.1 0.1 0.1 -Total Square Cm 0.84 1.17 1.35 -Photo Taken No -Tunneling No -Undermining/Tunneling No -Circular Undermining No -Exudate Amt Medium Small Small -Exudate Type Serosanguineous Serosanguineous Sanguineous -Wound Margin Distinct, Distinct, Distinct, Outline Outline Outline Attached Attached Attached -Granulation Amt Medium (34-66%) -Necrosis Amt Small (1-33%) -Necrotic Tissue Type Adherent Slough -Structure Exposed N/A -Texture (Kajal-wound Skin Appearance) Assessed Assessed Assessed -Moisture (Kajal-wound Skin Appearance) Assessed Assessed Assessed -Color (Kajal-wound Skin Appearance) Assessed Assessed Assessed -Temperature (Kajal-wound Skin No Abnormality No Abnormality No Abnormality Appearance) (Pt Warm) (Pt Warm) (Pt Warm) -Ulcer Cleansing Soap and Water Soap and Water Soap and Water -Foul Odor after Cleansing No No -Anesthetic Used 5% Lidocaine 5% Lidocaine 5% Lidocaine Gel Gel Gel -Wound Comment(s) scabbed Right Calf (cm) 29.5 Right Ankle (cm) 20.0 Left Calf (cm) 30 29.7 Left Ankle (cm) 20.5 20 WC - Nurse 2 - General Ulcer CM Notes Start: 06/11/23 13:11 Freq: Status: Active Protocol: Activity Type Activity Date Activity User E-sign Co-sign Detail Recorded Client Recorded Date Recorded By Document 06/11/23 13:41 Laptop 06/11/23 13:43 Document 06/18/23 14:21 Laptop 06/18/23 14:25 Document 06/25/23 14:18 Laptop 06/25/23 14:18 06/11/23 06/18/23 06/25/23 13:41 14:21 14:18 Wound Center Nurse 2 #7 LT LAT LE -Time 13:42 -Correct Patient Yes Yes No -Correct Side, Site, Position Yes Yes No -Correct Procedure Yes Yes No -Procedure Performed Yes Yes No -Type of Procedure Debridement Debridement -Clinical Debridement Subcutaneous Subcutaneous -Tissue Removed Subcutaneous Subcutaneous -Post Debridement (cm) - Length 1.0 0.5 0 -Post Debridement (cm) - Width 0.7 0.3 0 -Post Debridement (cm) - Depth 0.1 0.1 0 -Total Square (Post) (cm) 0.70 0.15 0 -Area of Debridement (cm) - Length 1.0 0.5 0 -Area of Debridement (cm) - Width 0.7 0.3 0 -Total Square (Area) (cm) 0.70 0.15 0 -Tunneling No No -Undermining/Tunneling No No -Circular Undermining No No -Wound/Ulcer Outcome Not Healed Not Healed Healed- Epithelialized -Ulcer Cleansing Rinsed/ Rinsed/ Irrigated with Irrigated with Saline Saline -Foul Odor after Cleansing No No -Bioengineered Tissue Yes Yes -Type of Bioengineered Tissue Epifix 18mm Epifix 18mm Disc Disc -Expiration Date 02/08/28 02/08/28 -Product Lot Number [id number] -Percent Used 100 100 -Lot number of Saline Used [id number] -Bleeding Controlled with Pressure Pressure -Treatment Response Procedure Procedure Tolerated Well Tolerated Well -Offloading No No -Debridement - Subq, 1st 20sq cm No No -Apply Skin Sub - 1st 25 sq cm - Legs 1 1 -Epifix 18mm Disc 3 3 Pain Scale: 0-10 Numeric Is Patient Pain Free? Yes Yes Yes WC - Nurse 3 - General Ulcer D/C NN Start: 06/11/23 13:11 Freq: Status: Active Protocol: Activity Type Activity Date Activity User E-sign Co-sign Detail Recorded Client Recorded Date Recorded By Document 06/11/23 13:46 KW Desktop 06/11/23 13:47 KW Document 06/18/23 14:43 [facility] Desktop 06/18/23 14:43 [facility] Document 06/25/23 14:19 KW Desktop 06/25/23 14:22 KW 06/11/23 06/18/23 06/25/23 13:46 14:43 14:19 Wound Care Center Nurse 3 #7 LT LAT LE -Other Dressing epi -Primary Dressing Covered/Secured with Dry Gauze & Dry Gauze & Roll Gauze, Roll Gauze, Secured with Secured with Tape Tape Left -Tubular Bandage Double Layer Double Layer -Size of Tubigrip Used Size D Size D -Size D ($) 2 1 Treatment Response Procedure Tolerated Well Pain Scale: 0-10 Numeric Is Patient Pain Free? 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 All findings were discussed with the patient. All questions were answered to the patient's satisfaction. The patient's left lower extremity full-thickness ulceration with graft application is now healed. There is evidence of xerotic skin. Lotion was applied to the left lower extremity. The patient does have compression stockings 15 to 20 mmHg and will need to wear them daily whenever she is ambulatory. She is understanding of this. Educated the patient to follow back up at the wound care center if she has any new evidence of reopening to her wound. Again she was understanding of this. She left the office please with her visit. Follow-up as needed. (2) PVD (peripheral vascular disease): CODE(S): I73.9 - Peripheral vascular disease, unspecified
== END 2023-07-09 23:59 | disposition home or self-care (01) ==
LOC: WC 13:45
PROVIDERS: PCP Student in an Organized Health Care Education/Training Program; Referring Provider Internal Medicine; Visit Provider Podiatrist Foot & Ankle Surgery
DX: L97.922 Non-pressure chronic ulcer of unspecified part of left lower leg with fat layer exposed (principal); I73.9 Peripheral vascular disease, unspecified; I10 Essential (primary) hypertension; S81.802S Unspecified open wound, left lower leg, sequela; W18.30XS Fall on same level, unspecified, sequela; Z79.02 Long term (current) use of antithrombotics/antiplatelets; Z79.899 Other long term (current) drug therapy
CPT/HCPCS: 15271; 99213; Q4186; G0463

== ENCOUNTER → 2023-10-06 | Outpatient (REF) | payer MEDICARE, MEDICAID, SELFPAY ==
[2023-10-06 08:12] LABS: Hematocrit 43.5 % (37-47); Hemoglobin 13.5 g/dL (12.0-15.0); Mean Corpuscular Hgb 27.7 pg (27.0-32.0); Mean Corpuscular Volume 89.3 fL (81-99); Platelet Count 243 K/mm3 (150-450); RBC Distribution Width CV 13.2 % (11.6-14.6); Red Blood Count 4.87 M/mm3 (4.2-5.4); White Blood Count 6.1 K/mm3 (4.4-11.0)
[2023-10-06 08:27] LABS: Anion Gap 4 (5-15); BUN 12 mg/dL (7-18); BUN/Creat Ratio 15.7 RATIO (10-20); Calcium,Total 8.9 mg/dL (8.5-10.1); Chloride 106 mmol/L (98-107); Creatinine, Serum 0.76 mg/dL (0.55-1.02); EST Glomerular Filtration Rate 77 mL/min (>60); Est Glom Filt Rate - Afr Amer 94 mL/min (>60); Glucose 91 mg/dL (74-106); Magnesium 2.2 mg/dL (1.6-2.6); Potassium 3.7 mmol/L (3.5-5.1); Sodium Level 140 mmol/L (136-145)
== END ==
LOC: OLS.SWAL 05:00
PROVIDERS: PCP Student in an Organized Health Care Education/Training Program; Visit Provider Internal Medicine
DX: I10 Essential (primary) hypertension (principal)
CPT/HCPCS: 36415; 80048; 83735; 85027

== ENCOUNTER → 2023-12-08 | Outpatient (REF) | payer MEDICARE, MEDICAID, SELFPAY ==
[2023-12-08 08:30] LABS: Hematocrit 43.2 % (37-47); Hemoglobin 13.2 g/dL (12.0-15.0); Mean Corp Hgb Conc 30.6 g/dL (32-36); Mean Corpuscular Hgb 27.6 pg (27.0-32.0); Mean Corpuscular Volume 90.2 fL (81-99); Mean Platelet Vol. 10.2 fl (6.2-12.0); Platelet Count 267 K/mm3 (150-450); RBC Distribution Width CV 13.4 % (11.6-14.6); Red Blood Count 4.79 M/mm3 (4.2-5.4); White Blood Count 5.9 K/mm3 (4.4-11.0)
[2023-12-08 08:31] LABS: Vitamin D,25 Hydroxy 54.8 ng/mL
[2023-12-08 08:57] LABS: Anion Gap 7 (5-15); BUN 9 mg/dL (7-18); BUN/Creat Ratio 12.5 RATIO (10-20); Calcium,Total 8.7 mg/dL (8.5-10.1); Chloride 105 mmol/L (98-107); Cholesterol 136 mg/dL (200); Creatinine, Serum 0.72 mg/dL (0.55-1.02); EST Glomerular Filtration Rate 82 mL/min (>60); Est Glom Filt Rate - Afr Amer 100 mL/min (>60); Glucose 91 mg/dL (74-106); High Density Lipoprotein 53 mg/dL; Magnesium 2.2 mg/dL (1.6-2.6); Potassium 3.6 mmol/L (3.5-5.1); Sodium Level 142 mmol/L (136-145); Triglycerides 107 mg/dL; Very Low Density Lipoprotein 21 mg/dL (5-40)
== END ==
LOC: OLS.SWAL 05:00
PROVIDERS: PCP Student in an Organized Health Care Education/Training Program; Visit Provider Internal Medicine
DX: Z79.01 Long term (current) use of 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s (principal); I10 Essential (primary) hypertension; E55.9 Vitamin D deficiency, unspecified
CPT/HCPCS: 36415; 80048; 80061; 82306; 83735; 85027

== ENCOUNTER → 2024-03-24 | Outpatient (REF) | payer MEDICARE, MEDICAID, SELFPAY ==
[2024-03-24 09:32] LABS: Hematocrit 39.8 % (37-47); Hemoglobin 12.2 g/dL (12.0-15.0); Mean Corp Hgb Conc 30.7 g/dL (32-36); Mean Corpuscular Hgb 27.1 pg (27.0-32.0); Mean Corpuscular Volume 88.2 fL (81-99); Mean Platelet Vol. 10.5 fl (6.2-12.0); Platelet Count 218 K/mm3 (150-450); RBC Distribution Width CV 13.4 % (11.6-14.6); RBC Distribution Width SD 43.6 fl (35.1-43.9); Red Blood Count 4.51 M/mm3 (4.2-5.4); White Blood Count 6.1 K/mm3 (4.4-11.0)
[2024-03-24 09:42] LABS: Anion Gap 2 (5-15); BUN 9 mg/dL (7-18); BUN/Creat Ratio 12.9 RATIO (10-20); Calcium,Total 8.6 mg/dL (8.5-10.1); Chloride 109 mmol/L (98-107); EST Glomerular Filtration Rate 85 mL/min (>60); Est Glom Filt Rate - Afr Amer 103 mL/min (>60); Glucose 88 mg/dL (74-106); Potassium 4.4 mmol/L (3.5-5.1); Sodium Level 143 mmol/L (136-145)
[2024-03-25 10:25] LABS: Magnesium 2.4 mg/dL (1.6-2.6)
== END ==
LOC: OLS.SWAL 05:00
PROVIDERS: PCP Student in an Organized Health Care Education/Training Program; Visit Provider Internal Medicine
DX: I10 Essential (primary) hypertension (principal)
CPT/HCPCS: 36415; 80048; 83735; 85027

== ENCOUNTER → 2024-05-31 | Outpatient (REF) | payer MEDICARE, MEDICAID, SELFPAY ==
[2024-05-31 09:16] LABS: ALB/GLOB Ratio 0.9 RATIO (0.9-2.4); AST(SGOT) 23 U/L (15-37); Alanine Aminotransfer ALT/SGPT 17 U/L (13-56); Albumin, Serum 3.2 g/dL (3.2-5.0); Alkaline Phosphatase 115 U/L (45-117); Anion Gap 4 (5-15); BUN 11 mg/dL (7-18); BUN/Creat Ratio 14.9 RATIO (10-20); Calcium,Total 9.1 mg/dL (8.5-10.1); Chloride 109 mmol/L (98-107); Cholesterol 128 mg/dL (200); Creatinine, Serum 0.74 mg/dL (0.55-1.02); EST Glomerular Filtration Rate 80 mL/min (>60); Est Glom Filt Rate - Afr Amer 97 mL/min (>60); Globulin 3.4 g/dL (2.2-4.2); Glucose 97 mg/dL (74-106); High Density Lipoprotein 57 mg/dL; Magnesium 2.4 mg/dL (1.6-2.6); Potassium 3.9 mmol/L (3.5-5.1); Protein, Total 6.6 g/dL (6.4-8.2); Sodium Level 143 mmol/L (136-145); Triglycerides 97 mg/dL; Very Low Density Lipoprotein 19 mg/dL (5-40)
== END ==
LOC: OLS.SWAL 05:00
PROVIDERS: PCP Student in an Organized Health Care Education/Training Program; Visit Provider Internal Medicine
DX: I10 Essential (primary) hypertension (principal); E78.5 Hyperlipidemia, unspecified
CPT/HCPCS: 36415; 80053; 80061; 83735

== ENCOUNTER → 2024-10-04 04:00 | Outpatient (REF) | payer MEDICARE, MEDICAID, SELFPAY ==
[2024-10-04 09:23] LABS: Hemoglobin 11.2 g/dL (12.0-15.0); Mean Corp Hgb Conc 30.3 g/dL (32-36); Mean Corpuscular Hgb 24.6 pg (27.0-32.0); Mean Corpuscular Volume 81.1 fL (81-99); Mean Platelet Vol. 10.8 fl (6.2-12.0); Platelet Count 333 K/mm3 (150-450); RBC Distribution Width CV 14.5 % (11.6-14.6); RBC Distribution Width SD 42.3 fl (35.1-43.9); Red Blood Count 4.56 M/mm3 (4.2-5.4); White Blood Count 6.5 K/mm3 (4.4-11.0)
[2024-10-04 10:06] LABS: ALB/GLOB Ratio 1.4 RATIO (0.9-2.4); AST(SGOT) 26 U/L (<=31); Alanine Aminotransfer ALT/SGPT 9 U/L (<=34); Albumin, Serum 3.9 g/dL (3.4-4.8); Alkaline Phosphatase 112 U/L (35-104); BUN 11 mg/dL (4-19); BUN/Creat Ratio 14.3 RATIO (10-20); Cholesterol 130 mg/dL (<=200); Creatinine, Serum 0.75 mg/dL (0.70-1.20); EST Glomerular Filtration Rate 79 (>60); Globulin 2.8 g/dL (2.2-4.2); Glucose 93 mg/dL (70-99); Protein, Total 6.7 g/dL (5.9-8.4); Total Bilirubin 1.57 mg/dL (0.00-1.30)
[2024-10-04 10:07] LABS: Anion Gap 10 (5-15); Carbon Dioxide 28.5 mmol/L (21.0-32.0); Chloride 105 mmol/L (98-108); High Density Lipoprotein 49 mg/dL; Low Density Lipoprotein Calc. 65 mg/dL; Potassium 3.8 mmol/L (3.3-5.1); Sodium Level 143 mmol/L (133-145); Triglycerides 81 mg/dL; Very Low Density Lipoprotein 16 mg/dL (5-40); Vitamin D,25 Hydroxy 42.8 ng/mL (30-100); cholesterol:hdl ratio screen 2.64
== END ==
LOC: OLS.SWAL 04:00
PROVIDERS: PCP Student in an Organized Health Care Education/Training Program; Referring Provider Internal Medicine; Visit Provider Internal Medicine
DX: I10 Essential (primary) hypertension (principal); I70.238 Atherosclerosis of native arteries of right leg with ulceration of other part of lower leg
CPT/HCPCS: 36415; 80053; 80061; 82306; 85027

== ENCOUNTER → 2024-11-08 | Outpatient (REF) | payer MEDICARE, MEDICAID, SELFPAY ==
[2024-11-08 08:48] LABS: AST(SGOT) 22 U/L (<=31); Alanine Aminotransfer ALT/SGPT 8 U/L (<=34); Albumin, Serum 3.3 g/dL (3.4-4.8); Alkaline Phosphatase 95 U/L (35-104); Globulin 2.2 g/dL (2.2-4.2); Protein, Total 5.5 g/dL (5.9-8.4); Total Bilirubin 1.21 mg/dL (0.00-1.30)
== END ==
LOC: OLS.SWAL 04:00
PROVIDERS: PCP Student in an Organized Health Care Education/Training Program; Referring Provider Internal Medicine; Visit Provider Internal Medicine
DX: R17 Unspecified jaundice (principal)
CPT/HCPCS: 36415; 80076

== ENCOUNTER 2025-01-24 21:15 | Emergency (ER) | payer MEDICARE, MEDICAID, SELFPAY ==
[2025-01-24 21:15] VITALS: BP 108/71; PULSE 118; RESP 18; TEMP 37; O2SAT 98; BMI 19.8
--- NOTE | 2025-01-24 21:27 | EKG12_ITS ---
Test Reason : DYSRHYTHMIA Blood Pressure : */* mmHG Vent. Rate : 87 BPM Atrial Rate : 87 BPM P-R Int : 206 ms QRS Dur : 106 ms QT Int : 414 ms P-R-T Axes : 45 -17 12 degrees QTcB Int : 498 ms Sinus rhythm with occasional Premature ventricular complexes Low voltage QRS Incomplete right bundle branch block QTcB >= 480 msec Abnormal ECG Confirmed by BONNY DE SOUZA, TIKA ([id number]), web editor JOSE PEARSON ([id number]) on 01/26/2025 9:35:16 AM Referred By: Confirmed By: TIKA DRAPER MD
--- NOTE | 2025-01-24 21:29 | EDS_ITS ---
HPI <Dr. Power Borges DO - Last Filed: 01/26/25 16:24> HPI - GI History of Present Illness Chief Complaint: GI Bleed Informant: patient and EMS Narrative Narrative: Discontinue hydroxyzine sent in from [facility] for increasing rectal bleeding reported blood pressure systolic 70s at facility. Patient does report lightheaded symptoms. She reports more bloody stools today. She denies abdominal pain. Evaluation of her medicine she is on Eliquis looks like started last month for DVT. She does not recall this diagnosis. Reports son is on his way. No history of similar. Unclear if any upper or lower endoscopies in the past. Prior similar symptoms: No PFSH <Dr. Power Borges DO - Last Filed: 01/26/25 16:24> PFSH Medical History PVD (peripheral vascular disease) Home Medications ?Medication ?Instructions ?Recorded ?Last Taken ?Type apixaban 5 mg tablet (Eliquis) 5 mg PO BID 01/24/25 Un known History atorvastatin 10 mg tablet 10 mg PO DAILY 01/24/25 Unkn own History cholecalciferol (vitamin D3) 50 50 mcg PO DAILY Unknown History mcg (2,000 unit) capsule furosemide 40 mg tablet 40 mg PO DAILY 01/24/25 Unkn own History potassium chloride 20 mEq 20 meq PO DAILY 01/24/25 Unk nown History tablet,extended release(part/cryst) Allergy/AdvReac Type Severity Reaction Status Date / Time aspirin (ASA) AdvReac Itching Verified 01/24/25 21:16 latex AdvReac Itching Verified 01/24/25 21:16 Social History Smoking Status: Never smoker ROS <Dr. Power Borges DO - Last Filed: 01/26/25 16:24> ROS ED Constitutional Constitutional ED: Denies chills, fever(s) or sweats ENT ENT ED: Denies sore throat Cardiovascular Cardiovascular: Reports other Details: Lightheaded ; Denies chest pain, leg edema, palpitations or racing heartbeat Respiratory/Chest Respiratory/Chest: Denies cough, dyspnea or dyspnea on exertion Gastrointestinal Gastrointestinal: Reports melena and other Details: Blood in stools. ; Denies abdominal pain, diarrhea, nausea or vomiting Genitourinary Genitourinary ED: Denies dysuria, hematuria or urinary frequency Musculoskeletal Musculoskeletal: Denies back pain, extremity pain or neck pain Integumentary Denies rash or wounds Neurologic Neurologic: Denies headache(s), paresthesias or weakness EXAM <Dr. Power Borges, DO - Last Filed: 01/26/25 16:24> Physical Exam Const Vital Signs: 01/24/25 21:15 01/24/25 22:15 01/24/25 23:00 Temperature 98.6 F Temperature Source Oral Pulse Rate 118 H 82 89 Respiratory Rate 18 24 H 20 H Blood Pressure 108/71 103/71 103/71 Blood Pressure Mean 83 81 81 Blood Pressure Source Blood Pressure Position Blood Pressure Location Pulse Ox 98 96 97 Oxygen Delivery Method Room Air Room Air Room Air 01/25/25 00:00 01/25/25 01:00 01/25/25 02:00 Temperature Temperature Source Pulse Rate 91 87 98 Respiratory Rate 20 H 18 17 Blood Pressure 107/75 110/71 101/58 L Blood Pressure Mean 85 84 72 Blood Pressure Source Blood Pressure Position Blood Pressure Location Pulse Ox 97 98 97 Oxygen Delivery Method Room Air Room Air Room Air 01/25/25 03:00 01/25/25 04:00 01/25/25 05:00 Temperature Temperature Source Pulse Rate 85 85 82 Respiratory Rate 18 19 H 18 Blood Pressure 109/69 104/65 99/67 Blood Pressure Mean 82 78 77 Blood Pressure Source Blood Pressure Position Blood Pressure Location Pulse Ox 97 97 97 Oxygen Delivery Method Room Air Room Air Room Air 01/25/25 05:46 01/25/25 06:00 01/25/25 06:01 Temperature 98.6 F 98.6 F Temperature Source Oral Oral Pulse Rate 99 79 80 Respiratory Rate 16 16 16 Blood Pressure 112/75 101/53 L 101/53 L Blood Pressure Mean 87 69 69 Blood Pressure Source Monitor Monitor Blood Pressure Position Semi-Fowlers Semi-Fowlers Blood Pressure Location Right Arm Right Arm Pulse Ox 97 99 95 Oxygen Delivery Method Room Air Room Air Room Air 01/25/25 07:01 01/25/25 07:02 01/25/25 07:16 Temperature 98.8 F 98.8 F Temperature Source Oral Oral Pulse Rate 79 77 84 Respiratory Rate 13 27 H 25 H Blood Pressure 103/69 103/69 104/79 Blood Pressure Mean 80 80 87 Blood Pressure Source Monitor Blood Pressure Position Semi-Fowlers Blood Pressure Location Right Arm Pulse Ox 98 95 100 Oxygen Delivery Method Room Air 01/25/25 07:45 01/25/25 07:51 01/25/25 08:06 Temperature 98.8 F 98.8 F 98.7 F Temperature Source Oral Oral Oral Pulse Rate 75 75 80 Respiratory Rate 12 12 11 L Blood Pressure 102/62 102/62 104/67 Blood Pressure Mean 75 75 79 Blood Pressure Source Blood Pressure Position Blood Pressure Location Pulse Ox 97 97 95 Oxygen Delivery Method Positive well nourished and well developed General Appearance ED: well developed and NAD HEENT Reports moist mucous membranes normocephalic and atraumatic Eyes General Eye ED: Yes pale conjunctiva Neck full ROM Chest Wall Chest: Negative for tenderness Resp normal respiratory effort and normal air movement Effort and Inspection: symmetric chest movement; Negative for respiratory dist ress Cardio regular rhythm and no murmurs Rate: tachycardic Peripheral Pulses: pulses 2+ throughout GI normal to inspection, nondistended, normoactive bowel sounds and non-tender GI Narrative: Nursing assistance rectal exam evaluation no hemorrhoids there was melanotic stools dark however more light red in color. Palpation: Negative for guarding or rebound tenderness present Extremity normal to inspection Extremity Narrative: Slight asymmetric swelling right leg compared to left. Soft compartments. Pulses intact distally. General Extremety ED: Yes edema; Negative for tenderness General Extremity: edema Neuro oriented x3 and no sensory deficits noted Sensorium / Orientation: awake and alert Skin Skin Narrative: Pallor of both hands. <Dr. Fox Bowen, DO - Last Filed: 01/25/25 08:17> Physical Exam Const Vital Signs: 01/24/25 21:15 01/24/25 22:15 01/24/25 23:00 Temperature 98.6 F Temperature Source Oral Pulse Rate 118 H 82 89 Respiratory Rate 18 24 H 20 H Blood Pressure 108/71 103/71 103/71 Blood Pressure Mean 83 81 81 Blood Pressure Source Blood Pressure Position Blood Pressure Location Pulse Ox 98 96 97 Oxygen Delivery Method Room Air Room Air Room Air 01/25/25 00:00 01/25/25 01:00 01/25/25 02:00 Temperature Temperature Source Pulse Rate 91 87 98 Respiratory Rate 20 H 18 17 Blood Pressure 107/75 110/71 101/58 L Blood Pressure Mean 85 84 72 Blood Pressure Source Blood Pressure Position Blood Pressure Location Pulse Ox 97 98 97 Oxygen Delivery Method Room Air Room Air Room Air 01/25/25 03:00 01/25/25 04:00 01/25/25 05:00 Temperature Temperature Source Pulse Rate 85 85 82 Respiratory Rate 18 19 H 18 Blood Pressure 109/69 104/65 99/67 Blood Pressure Mean 82 78 77 Blood Pressure Source Blood Pressure Position Blood Pressure Location Pulse Ox 97 97 97 Oxygen Delivery Method Room Air Room Air Room Air 01/25/25 05:46 01/25/25 06:00 01/25/25 06:01 Temperature 98.6 F 98.6 F Temperature Source Oral Oral Pulse Rate 99 79 80 Respiratory Rate 16 16 16 Blood Pressure 112/75 101/53 L 101/53 L Blood Pressure Mean 87 69 69 Blood Pressure Source Monitor Monitor Blood Pressure Position Semi-Fowlers Semi-Fowlers Blood Pressure Location Right Arm Right Arm Pulse Ox 97 99 95 Oxygen Delivery Method Room Air Room Air Room Air 01/25/25 07:01 01/25/25 07:02 01/25/25 07:16 Temperature 98.8 F 98.8 F Temperature Source Oral Oral Pulse Rate 79 77 84 Respiratory Rate 13 27 H 25 H Blood Pressure 103/69 103/69 104/79 Blood Pressure Mean 80 80 87 Blood Pressure Source Monitor Blood Pressure Position Semi-Fowlers Blood Pressure Location Right Arm Pulse Ox 98 95 100 Oxygen Delivery Method Room Air 01/25/25 07:45 01/25/25 07:51 01/25/25 08:06 Temperature 98.8 F 98.8 F 98.7 F Temperature Source Oral Oral Oral Pulse Rate 75 75 80 Respiratory Rate 12 12 11 L Blood Pressure 102/62 102/62 104/67 Blood Pressure Mean 75 75 79 Blood Pressure Source Blood Pressure Position Blood Pressure Location Pulse Ox 97 97 95 Oxygen Delivery Method MDM <Dr. Power Borges, DO - Last Filed: 01/26/25 16:24> MDM MDM Narrative Medical decision making narrative: Interventions / MDM: Differential diagnosis: GI bleed, anemia, chronic anticoagulation, history of DVT Diagnosis considered but do not suspect: N/A My EKG interpretation: Sinus rhythm 87, no ST changes. Right bundle branch block with PVCs. Compared to 2019 she had a right bundle branch block then. Imaging independently reviewed and interpreted by myself: CT angiogram abdomen pelvis: External documents reviewed: Hemoglobin 11.2, 4 months ago. Test considered but not ordered:N/A ED course: Arrival rectal bleeding on Eliquis. Blood pressure 108/71 with heart rate of 118. Clinical anemia on exam. Laboratory studies were checked, EKG. Fluids ordered. IV Protonix bolus and drip ordered. Will order for CT angiogram. Will plan for admission. 2240: Hemoglobin 8.2 systolic pressure 103 in the room family present. They are unaware of any blood clots diagnosed last month. Discussed medications of Eliquis started then. Patient returned from CT scan awaiting results. BUN 15 creatinine 0.84. She had not had any additional rectal bleeding. 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 No extravasation at this time. Nonobstructing right inguinal hernia. Recommended more urgent interventional radiology evaluation as high risk for rupture. I discussed results with patient and son. Discussed there is no interventional radiology here. Discussed the need for transfer. Current blood pressure systolic 120. Will work on transfer. Per family they were told her Eliquis was held this evening. Patient recalls only getting 1 of 2 of her nighttime medications before coming here. Discussed with transfer centers both in [place]) [facility] no bed availability's. Discussed with son again, work on finding facilities that can accept the patient for management. Re-evaluation: Fair Disposition discussed with patient/family/significant other: Patient and family Case discussed with consulting clinician: Gastroenterology, hospitalist This note was generated with [employer] dictation software. It may contain incorrect words, spelling, and punctuation that were not noted in checking the note before signing. Lab Data Attestation: I reviewed the patient's lab results. Labs: Laboratory Results - last 24 hr 01/24/25 01/25/25 21:35 04:22 WBC 9.8 8.0 RBC 3.96 L 2.87 L Hgb 8.2 L 6.0 L* Hct 28.7 L 20.9 L MCV 72.5 L 72.8 L MCH 20.7 L 20.9 L MCHC 28.6 L 28.7 L RDW Std Deviation 41.1 41.3 RDW Coeff of Terrell 15.8 H 15.8 H Plt Count 335 232 MPV 10.0 10.6 Immature Gran % (Auto) 0.300 0.300 Neut % (Auto) 62.6 64.9 Lymph % (Auto) 22.8 19.2 [place] % (Auto) 12.8 H 14.1 H Eos % (Auto) 1.1 1.0 Baso % (Auto) 0.4 0.5 Absolute Neuts (auto) 6.1 5.2 Absolute Lymphs (auto) 2.22 1.53 Nucleated RBC % 0 0 PT 17.9 H INR 1.5 APTT 30.3 Sodium 140 Potassium 4.3 Chloride 103 Carbon Dioxide 24.8 Anion Gap 12 BUN 15 Creatinine 0.84 Estim Creat Clear Calc 48.18 L Est GFR (MDRD) Non-Af 69 BUN/Creatinine Ratio 18.4 Glucose 116 H Lactic Acid 2.0 Calcium 9.0 Blood Type O POSITIVE Antibody Screen NEGATIVE Crossmatch See Detail Radiography Diagnostic Testing: Clinical Impression(s) from Imaging Studies Abdomen/Pelvis CTA 01/24/25 22:00 IMPRESSION: 1. 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 No signs of rupture. Recommend urgent Vascular Interventional consult. 2. No evident active gastrointestinal hemorrhage. Nonspecific fluid in the colon. 3. Cholelithiasis, without evidence for acute cholecystitis. 4. Large right inguinal hernia containing several loops of distal small bowel, without evidence of bowel obstruction or strangulation/incarceration. 5. Additional non-acute ancillary findings, as described above. Findings communicated with provider Power Borges 01/24/2025 at 10:50 p.m. 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 Reading Location: [id number] <Dr. Fox Bowen, DO - Last Filed: 01/25/25 08:17> [facility] Lab Data Labs: Laboratory Results - last 24 hr 01/24/25 01/25/25 21:35 04:22 WBC 9.8 8.0 RBC 3.96 L 2.87 L Hgb 8.2 L 6.0 L* Hct 28.7 L 20.9 L MCV 72.5 L 72.8 L MCH 20.7 L 20.9 L MCHC 28.6 L 28.7 L RDW Std Deviation 41.1 41.3 RDW Coeff of Terrell 15.8 H 15.8 H Plt Count 335 232 MPV 10.0 10.6 Immature Gran % (Auto) 0.300 0.300 Neut % (Auto) 62.6 64.9 Lymph % (Auto) 22.8 19.2 [place] % (Auto) 12.8 H 14.1 H Eos % (Auto) 1.1 1.0 Baso % (Auto) 0.4 0.5 Absolute Neuts (auto) 6.1 5.2 Absolute Lymphs (auto) 2.22 1.53 Nucleated RBC % 0 0 PT 17.9 H INR 1.5 APTT 30.3 Sodium 140 Potassium 4.3 Chloride 103 Carbon Dioxide 24.8 Anion Gap 12 BUN 15 Creatinine 0.84 Estim Creat Clear Calc 48.18 L Est GFR (MDRD) Non-Af 69 BUN/Creatinine Ratio 18.4 Glucose 116 H Lactic Acid 2.0 Calcium 9.0 Blood Type O POSITIVE Antibody Screen NEGATIVE Crossmatch See Detail Radiography Diagnostic Testing: Clinical Impression(s) from Imaging Studies Abdomen/Pelvis CTA 01/24/25 22:00 IMPRESSION: 1. 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 No signs of rupture. Recommend urgent Vascular Interventional consult. 2. No evident active gastrointestinal hemorrhage. Nonspecific fluid in the colon. 3. Cholelithiasis, without evidence for acute cholecystitis. 4. Large right inguinal hernia containing several loops of distal small bowel, without evidence of bowel obstruction or strangulation/incarceration. 5. Additional non-acute ancillary findings, as described above. Findings communicated with provider Power Borges 01/24/2025 at 10:50 p.m. 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 Reading Location: [id number] Treatment and Re-Evaluation :: Care of the patient was turned over to co pending transfer. Case was discussed with [facility]. They had no beds available. Case was discussed with transfer line at [facility]. They did not have interventional radiology available. [facility] transfer line also stated that there were no beds available at [facility]. Case was discussed with the transfer line at [facility]. I discussed the case with Dr. Fallon at [facility]. He recommended obtaining a lactate and repeating the CBC. This was reviewed. Patient's hemoglobin dropped to 6.0. Serum lactate was reviewed and was normal at 2.0. Case was discussed with Dr. St at [facility]. He accepted the patient to be transferred to their stepdown unit. Transfer line stated that a bed will likely become available this morning. Patient is agreeable with this. Because the hemoglobin dropped, patient was typed and crossed for 2 units of packed red blood cells. These were transfused. The patient's vital signs remained stable. Patient will be signed out to the oncoming physician pending transfer to [facility] this morning. <Dr. Power Borges, DO - Last Filed: 01/26/25 16:24> Critical Care Time Critical Care Time: Yes Critical care time (excluding procedures): 30-74 minutes, Discussing w/Patient &/or Family/Optician Apprentice, Discussing w/Consultants, Arranging Admission or Transfer, Performing Direct Patient Care at Bedside and - (45 minutes) Discharge Plan Triage Chief Complaint: GI Bleed ED Provider: Power Borges Dx/Rx/DC Orders Clinical Impression: Rectal bleeding, Anemia, Aneurysm of hepatic artery, Anticoagulation adequate with 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 therapy, History of deep vein thrombosis Prescriptions: No Action cholecalciferol (vitamin D3) 50 mcg (2,000 unit) capsule 50 mcg PO DAILY furosemide 40 mg tablet 40 mg PO DAILY atorvastatin 10 mg tablet 10 mg PO DAILY potassium chloride 20 mEq tablet,ER particles/crystals 20 meq PO DAILY Eliquis 5 mg tablet 5 mg PO BID Primary Care Provider: Dianna Guido Referrals: Dianna Guido MD [Primary Care Provider] - Print Language: Yoruba Disposition Disposition: Acute Care Hospital Discharge Location: [facility] Discharge Date/Time: 01/25/25 11:13
[2025-01-24 21:46] LABS: Hematocrit 28.7 % (37-47); Hemoglobin 8.2 g/dL (12.0-15.0); Immature Granulocytes Count 0.030 X10^3/uL (0.0-0.0); Mean Corp Hgb Conc 28.6 g/dL (32-36); Mean Corpuscular Volume 72.5 fL (81-99); Mean Platelet Vol. 10.0 fl (6.2-12.0); NRBC Flagged by Analyzer 0 % (0-5); Platelet Count 335 K/mm3 (150-450); RBC Distribution Width CV 15.8 % (11.6-14.6); RBC Distribution Width SD 41.1 fl (35.1-43.9); Red Blood Count 3.96 M/mm3 (4.2-5.4); White Blood Count 9.8 K/mm3 (4.4-11.0)
[2025-01-24 21:56] LABS: Prothrombin Time (Protime)PT. 17.9 SECONDS (11.7-14.9)
[2025-01-24 21:57] LABS: Partial Thromboplast Time 30.3 Seconds (24.1-36.2)
--- NOTE | 2025-01-24 22:00 | CT_ITS ---
PROCEDURE: CTA ABD/PELVIS W/WO CONTRAST 01/24/2025 REASON FOR EXAM: GI BLEED TECHNIQUE: CTA ABD/PELVIS W/WO CONTRAST Multiplanar Sagittal and Coronal images were obtained. 3D and/or MIPS post processing was performed. CONTRAST: Isovue 370 VOLUME: 100 mL One or more dose reduction techniques were used (e.g., Automated exposure control, adjustment of the mA and/or kV according to patient size, use of iterative reconstruction technique). RADIATION DOSE SUMMARY: DLP: 688.94 mGycm COMPARISON: None available. FINDINGS: VASCULATURE: Abdominal aorta is tortuous but normal in caliber. No aortic aneurysm or dissection. Mild atherosclerotic disease. Major branches of the celiac axis, SMA, SANTY, bilateral renal and iliac arteries are patent. There is a large saccular aneurysm/pseudoaneurysm measuring 4.3 x 3.8 x 3.3 cm (CC, TV, AP) which originates from the distal common hepatic artery (see javed images). No adjacent free fluid or contrast extravasation to indicate aneurysm rupture. HEPATOBILIARY: Cholelithiasis, without evidence for acute cholecystitis. No significant biliary ductal dilatation. Subcentimeter hyperenhancing focus in the posterior right hepatic lobe (S2 image 27) is most likely a small flash filling hemangioma. Normal-sized spleen. Unremarkable pancreas. GENITOURINARY: Normal, symmetric renal enhancement. Chronic cortical scarring along the upper pole of the left kidney. No urolithiasis or hydronephrosis. Unremarkable urinary bladder. Grossly normal appearance of the uterus and adnexae. GI TRACT: No evidence of bowel obstruction or active inflammatory process. Mild distal colonic diverticulosis. Normal appendix. There is a large right inguinal hernia containing mesenteric fat/vasculature and several loops of distal small bowel, without evidence of obstruction or strangulation. No intraluminal hyperdense material/contrast extravasation to indicate active gastrointestinal hemorrhage. Nonspecific fluid within the colon. PERITONEUM/RETROPERITONEUM: No free fluid or air. No lymphadenopathy. MUSCULOSKELETAL: Nodular calcifications in the bilateral breast soft tissues, nonspecific. Chronic appearing cortical buckle fracture deformity of the right iliac wing. Chronic severe compression fracture deformity of T10, with no significant retropulsion. Mild degenerative changes of the spine elsewhere. Diffuse qualitative osteopenia. CT/CTA Abd/Pelvis W/WO Contrast IMPRESSION: 1. 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 No signs of rupture. Recommend urgent Vascular Interventional consult. 2. No evident active gastrointestinal hemorrhage. Nonspecific fluid in the colo n. 3. Cholelithiasis, without evidence for acute cholecystitis. 4. Large right inguinal hernia containing several loops of distal small bowel, without evidence of bowel obstruction or strangulation/incarceration. 5. Additional non-acute ancillary findings, as described above. Findings communicated with provider Power Borges 01/24/2025 at 10:50 p.m. GOLD ASSAYER. Reading Location: [id number]
[2025-01-24] MEDS: Pantoprazole Sodium 80 MG in 0.9% Normal Saline (50mL Bag) 15 ML 420 MG IV BOLUS (22:11)
[2025-01-24 22:15] VITALS: BP 103/71; PULSE 82; RESP 24; O2SAT 96
[2025-01-24 22:16] LABS: Anion Gap 12 (5-15); BUN 15 mg/dL (4-19); BUN/Creat Ratio 18.4 RATIO (10-20); Calcium,Total 9.0 mg/dL (7.6-11.0); Carbon Dioxide 24.8 mmol/L (21.0-32.0); Chloride 103 mmol/L (98-108); Estimated Creatinine Clearance 48.18 ml/min (50-250); Glucose 116 mg/dL (70-99); Potassium 4.3 mmol/L (3.3-5.1)
[2025-01-24] MEDS: 0.9% Normal Saline (500mL Bag) 500 ML 999 ML IV (22:26)
[2025-01-24] MEDS: Pantoprazole Sodium 80 MG in 0.9% Normal Saline (100mL Bag) 80 ML 10 MG CONT INF (22:26)
[2025-01-24 23:00] VITALS: BP 103/71; PULSE 89; RESP 20; O2SAT 97
[2025-01-25] VITALS (21 sets, daily range): BP systolic 99–124; BP diastolic 53–80; PULSE 74–99; RESP 11–27; TEMP 36.9–37.1; O2SAT 95–100
--- NOTE | 2025-01-25 00:42 | ED.RN ---
No available beds at [facility] or [facility].
--- NOTE | 2025-01-25 01:52 | PCA ---
[facility] is at capacity according to Yessica RN at transfer center, no beds available.[facility] doesn't have IR services available that patient needs, main campus declined due to being at capacity and pt would wait multiple days for a bed.(Deborah with [facility] transfer center). Awaiting call back from [facility].
[2025-01-25 04:39] LABS: Hematocrit 20.9 % (37-47); Immature Granulocytes Count 0.020 X10^3/uL (0.0-0.0); Mean Corp Hgb Conc 28.7 g/dL (32-36); Mean Corpuscular Volume 72.8 fL (81-99); Mean Platelet Vol. 10.6 fl (6.2-12.0); NRBC Flagged by Analyzer 0 % (0-5); Platelet Count 232 K/mm3 (150-450); RBC Distribution Width CV 15.8 % (11.6-14.6); RBC Distribution Width SD 41.3 fl (35.1-43.9); Red Blood Count 2.87 M/mm3 (4.2-5.4); White Blood Count 8.0 K/mm3 (4.4-11.0)
[2025-01-25 04:48] LABS: Hemoglobin 6.0 g/dL (12.0-15.0)
--- NOTE | 2025-01-25 05:22 | PCA ---
[facility] was called and updated on hemoglobin and lactic per MD.
[2025-01-25] MEDS: Pantoprazole Sodium 80 MG in 0.9% Normal Saline (100mL Bag) 80 ML 10 MG CONT INF (07:43)
[2025-01-25 08:32] LABS: Reflex Lactate? Y
--- NOTE | 2025-01-25 09:50 | ED.RN ---
Patients son- Fei updated patient is being transferred to [facility] around 11 am. Their Critical Care team will be transporting her. Fei has no further questions at this time
--- NOTE | 2025-01-25 11:13 | ED.RN ---
Report called to [facility]
== END 2025-01-25 11:13 | disposition short-term general hospital (02) ==
PROVIDERS: Emergency Medicine; Emergency Provider Emergency Medicine; PCP Internal Medicine; Visit Provider Emergency Medicine
DX: K62.5 Hemorrhage of anus and rectum (principal); I72.8 Aneurysm of other specified arteries; D64.9 Anemia, unspecified; Z79.01 Long term (current) use of 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s; Z86.718 Personal history of other venous thrombosis and embolism
CPT/HCPCS: 74174; 80048; 82274; 83605; 85025; 85610; 85730; 86644; 86850; 86900; 86901; 93005; 96365; 96366; 99285; P9016; Q9967; A4216

== ENCOUNTER → 2025-02-02 | Outpatient (REF) | payer MEDICARE, MEDICAID, SELFPAY ==
[2025-02-02 08:08] LABS: Hematocrit 27.5 % (37-47); Hemoglobin 8.0 g/dL (12.0-15.0); Mean Corp Hgb Conc 29.1 g/dL (32-36); Mean Corpuscular Volume 77.5 fL (81-99); Mean Platelet Vol. 10.5 fl (6.2-12.0); Platelet Count 376 K/mm3 (150-450); RBC Distribution Width CV 19.4 % (11.6-14.6); RBC Distribution Width SD 54.1 fl (35.1-43.9); Red Blood Count 3.55 M/mm3 (4.2-5.4); White Blood Count 11.8 K/mm3 (4.4-11.0)
[2025-02-02 08:53] LABS: AST(SGOT) 27 U/L (<=31); Alanine Aminotransfer ALT/SGPT 12 U/L (<=34); Albumin, Serum 3.4 g/dL (3.4-4.8); Alkaline Phosphatase 102 U/L (35-104); Anion Gap 11 (5-15); BUN 9 mg/dL (4-19); BUN/Creat Ratio 12.3 RATIO (10-20); Calcium,Total 8.5 mg/dL (7.6-11.0); Carbon Dioxide 23.0 mmol/L (21.0-32.0); Chloride 102 mmol/L (98-108); Globulin 2.6 g/dL (2.2-4.2); Glucose 101 mg/dL (70-99); Potassium 4.1 mmol/L (3.3-5.1); Vitamin B12 650 pg/mL (180-914); Vitamin D,25 Hydroxy 46.4 ng/mL (30-100)
== END ==
LOC: OLS.SWAL 05:00
PROVIDERS: PCP Internal Medicine; Visit Provider Internal Medicine
DX: Z09 Encounter for follow-up examination after completed treatment for conditions other than malignant neoplasm (principal)
CPT/HCPCS: 36415; 80053; 82306; 82607; 85027

== ENCOUNTER → 2025-02-09 | Outpatient (REF) | payer MEDICARE, MEDICAID, SELFPAY ==
[2025-02-09 07:43] LABS: Hematocrit 26.2 % (37-47); Hemoglobin 7.7 g/dL (12.0-15.0); Mean Corp Hgb Conc 29.4 g/dL (32-36); Mean Corpuscular Volume 75.5 fL (81-99); Mean Platelet Vol. 9.5 fl (6.2-12.0); Platelet Count 559 K/mm3 (150-450); RBC Distribution Width CV 19.7 % (11.6-14.6); RBC Distribution Width SD 53.1 fl (35.1-43.9); Red Blood Count 3.47 M/mm3 (4.2-5.4); White Blood Count 8.7 K/mm3 (4.4-11.0)
[2025-02-09 11:00] LABS: Anion Gap 9 (5-15); BUN 8 mg/dL (4-19); BUN/Creat Ratio 10.8 RATIO (10-20); Calcium,Total 8.6 mg/dL (7.6-11.0); Carbon Dioxide 25.8 mmol/L (21.0-32.0); Chloride 106 mmol/L (98-108); Glucose 104 mg/dL (70-99); Potassium 4.8 mmol/L (3.3-5.1)
== END ==
LOC: OLS.SWAL 05:00
PROVIDERS: PCP Internal Medicine; Visit Provider Internal Medicine
DX: Z09 Encounter for follow-up examination after completed treatment for conditions other than malignant neoplasm (principal)
CPT/HCPCS: 36415; 80048; 85027

== ENCOUNTER → 2025-02-16 | Outpatient (REF) | payer MEDICARE, MEDICAID, SELFPAY ==
--- OUTSIDE RECORDS SUMMARY | 2025-02-16 04:00 | XMS RPT_ITS | CCD ---
Author Organization [facility] Care Team Providers Care Master Control Supervisor Name Role Phone PAUL WEEKS CNP Primary [...] MAMTA E Primary Care Unavailable SALINAS, MAMTA Marcelino Attending Unavailable PAUL WEEKS CNP Consulting Unavailable PROVIDER, UNKNOWN Consulting Unavailable PROVIDER, UNKNOWN Consulting Unavailable SALINAS, MAMTA E Admitting Unavailable SALINAS, MAMTA E Primary Care Unavailable SALINAS, MAMTA E Attending Unavailable PAUL WEEKS CNP Consulting Unavailable PROVIDER, UNKNOWN Consulting Unavailable PROVIDER, UNKNOWN Consulting Unavailable Precious DE SOUZA, Dr. Jones Primary Care Provider Dr. Dianna Guido MD Attending Provider UnavailDr. Dianna Rodney MD Referring Provider UnavailDr. Dianna Rodney MD Primary Care Provider Unava ilcasey Weeks, Dr. Steve Emergency Provider [phone] Unavailable Primary Care Provider UnavailMONTSERRAT Gaines Attending Unavailable CONSULT, IP GASTROENTEROLOGY Consulting Kayla vailable JOSE RAFAEL DESOUZA Admitting Unavailable JENNIE NAVARRO Referring Unavailable PROVIDER, UNKNOWN Attending Unavailable ALICIA NAVA Admitting Unavailable MELANIE, JENNIE Referring Unavailable NORA HAYS Attending Unavailable NORA HAYS Admitting Unavailable PROVIDER, UNKNOWN Admitting Unavailable PROVIDER, UNKNOWN Attending Unavailable PROVIDER, UNKNOWN Admitting Unavailable PROVIDER, UNKNOWN Attending Unavailable Gudla OLS, Dianna Attending Unavailable Gudla, Dianna Primary Care Unavailable Gudla OLS, Dianna Attending Unavailable Mayatti, Karen Primary Care Unavailable Gudla OLS, Dianna Attending Unavailable Kalisetti, Karen Primary Care Unavailable Gudla OLS, Dianna Attending Unavailable Gudla OLS, Dianna Referring Unavailable Kalisetti, Karen Primary Care Unavailable Gudla OLS, Dianna Attending Unavailable Gudla OLS, Dianna Referring Unavailable Kalisetti, Karen Primary Care Unavailable Gudla, Dianna Primary Care Unavailable Power Borges Attending Unavailable Gudla OLS, Dianna Attending Unavailable Gudla, Dianna Primary Care Unavailable Allergies Allergy Classification Reported Allergen(s) Allergy Type Date of Onset Reaction(s) Facility (15 sources) Latex; Translations: [LATEX] Propensity to adverse reactions (disorder) 9 Itching [facility] (13 sources) Aspirin Drug Allergy 9 Itching [facility] (1 source) Aspirin Drug Allergy 5 [facility] Medications Current Medications Medication Drug Class(es) Dates Sig (Normalized) Sig (Original) apixaban 5 mg oral tablet (6 sources) Factor Xa Inhibitor Start: 01-31-2025 take 5 mg by mouth twice daily 5 mg, Oral, 2 TIMES DAILY, First dose on Fri01/31/25 at 2100, Until Discontinued Start: 01-31-2025 End: 05-01-2025 take 1 tablet by mouth twice daily Apixaban (ELIQUIS) 5 MG tablet Take 1 Tablet by mouth 2 times daily. (Blood thinner) 60 Tablet 2 01/31/2025 05/01/2025 Active Start: 01-24-2025 take 1 tablet by roz th twice daily Apixaban (Apixaban 5 Mg Tablet) 5 mg tablet Active 5 mg PO TWICE A DAY January 24, 2025 12:00am atorvastatin 10 mg oral tablet (19 sources) HMG-CoA Reductase Inhibitor Start: 01-24-2025 End: 01-31-2026 take 1 tablet by mouth at bedtime atorvastatin (LIPITOR) 10 MG tablet Take 1 Tablet by mouth at bedtime. 90 Tablet 3 01/31/2025 01/31/2026 Active Start: 02-15-2019 End: 01-24-2025 take 1 tablet by mouth at bedtime Atorvastatin 40 MG tablet Discontinued 40 mg PO AT BEDTIME 30 0 February 15, 2019 12:00am January 24, 2025 9:20pm Bp Defense (13 sources) Start: 02-14-2019 take 1 tablet by roz th once daily Bp Defense Active 1 TABLET PO DAILY February 14, 2019 8:40pm Start: 02-14-2019 End: 01-24-2025 Bp Defense Discontinued 1 {t bl} PO DAILY February 14, 2019 12:00am January 24, 2025 9:20pm supplement Start: 02-14-2019 Bp Defense Act sosa 1 {tbl} PO DAILY February 14, 2019 12:00am Start: 02-14-2019 take 1 tablet by roz th once daily Bp Defense Active 1 TABLET PO DAILY February 13, 2019 11:00pm Start: 02-14-2019 take 1 tablet by roz th once daily Bp Defense Active 1 TABLET PO DAILY February 14, 2019 12:00am cholecalciferol 0.05 mg oral capsule (1 source) Vitamin D Start: 01-24-2025 take 1 capsule by mouth once daily Cholecalciferol (Vitamin D3) 50 mcg (2,000 unit) capsule Active 50 ug PO DAILY January 24, 2025 12:00am furosemide 40 mg oral tablet (1 source) Loop Diuretic Start: 01-24-2025 take 1 tablet by mouth once daily Furosemide 40 mg tablet Active 40 mg PO DAILY January 24, 2025 12:00am polyethylene glycol 3350 13860 mg powder for oral solution (6 sources) Osmotic Laxative Start: 01-31-2025 17 g, Oral, 2 times daily, First dose (after last modification) on Fri01/31/25 at 2100, Until Discontinued Start: 01-31-2025 End: 05-01-2025 polyethylene glycol (MIRALAX ) packet Dissolve 1 Packet (17 g total) in 8 ounces of liquid and drink 2 times a day. (Stool softener) 60 Packet 2 01/31/2025 05/01/2025 Active Start: 01-26-2025 End: 01-31-2025 17 g, Oral, DAILY, First dos e on Fri01/26/25 at 0900, Until Discontinued polyethylene glycol 3350 940638 mg / potassium chloride 2970 mg / sodium bicarbonate 6740 mg / sodium chloride 5860 mg / sodium sulfate 84283 mg powder for oral solution (3 sources) Osmotic Laxative Start: 02-09-2025 End: 02-14-2026 polyethylene glycol (GOLYTELY) oral solution Use as directed prior to colonoscopy 4000 mL 02/14/2025 02/14/2026 Active sennosides, half-way 8.6 mg oral tablet (5 sources) Start: 01-26-2025 End: 05-02-2025 take 1 tablet by mouth once daily senna (SENOKOT) 8.6 MG tablet Take 1 Tablet by mouth daily. 30 Tablet 02/01/2025 05/02/2025 Active Completed/Discontinued Medications Medication Drug Class(es) Dates Sig (Normalized) Sig (Original) aspirin 81 mg delayed release oral tablet (1 source) Platelet Aggregation Inhibitor, Nonsteroidal Anti-inflammatory Drug Start: 01-28-2025 End: 01-30-2025 take 81 mg by mouth once daily 81 mg, Oral, DAILY, First dose on Fri01/28/25 at 1900, Until Discontinued bisacodyl 5 mg delayed release oral tablet (1 source) Stimulant Laxative Start: 01-26-2025 End: 01-26-2025 take 1 dose by mouth once 20 mg, Oral, ONCE, 1 dose, On Fri01/26/25 at 1200 Start: 01-26-2025 End: 01-26-2025 take 1 dose by mouth once 20 mg, Oral, ONCE, 1 dose, O n Fri01/26/25 at 1200 clopidogrel 75 mg oral tablet (13 sources) P2Y12 Platelet Inhibitor Start: 02-15-2019 End: 01-24-2025 take 1 tablet by mouth once daily Clopidogrel 75 MG tablet Discontinued 75 mg PO DAILY 30 0 February 15, 2019 12:00am January 24, 2025 9:20pm doxycycline hyclate 100 mg oral capsule (6 sources) Tetracycline-cla ss Drug Start: 05-25-2023 End: 01-24-2025 take 1 capsule by mouth once daily Doxycycline Hyclate 100 mg capsule Discontinued 100 mg PO DAILY 14 14 0 May 25, 2023 1:00am January 24, 2025 9:20pm 0.8 ml enoxaparin sodium 100 mg/ml prefilled syringe (1 source) Low Molecular Weight Heparin Start: 01-30-2025 End: 01-31-2025 70 mg (rounded from 66 mg = 1 mg/kg 66 kg), Subcutaneous, 2 TIMES DAILY, First dose on Fri01/30/25 at 2100, Until Discontinued 2 ml fentaNYL 0.05 mg/ml injection (2 sources) Opioid Agonist Start: 01-28-2025 End: 01-28-2025 Intravenous, PRN, Starting on Fri01/28/25 at 1554, Until Fri01/28/25 at 1741, Intra Procedure Start: 01-27-2025 End: 01-27-2025 Intravenous, ONCE PRN, Start ing on Fri01/27/25 at 1559, Until Fri01/27/25 at 1610 hydroCHLOROthiazide 12.5 mg oral capsule (13 sources) Thiazide Diuretic Start: 02-14-2019 End: 02-15-2019 take 1 capsule by mouth once daily Hydrochlorothiazide 12.5 MG capsule Discontinued 12.5 mg PO DAILY February 14, 2019 12:00am February 15, 2019 11:19am bp hydroCHLOROthiazide 12.5 mg / lisinopril 10 mg oral tablet (13 sources) Thiazide Diuretic, Angiotensin Converting Enzyme Inhibitor Start: 02-15-2019 End: 01-24-2025 Lisinopril-Hydrochloro thiazide 1 EACH tablet Discontinued 1 NMA PO DAILY February 15, 2019 12:00am January 24, 2025 9:20pm Start: 02-15-2019 Lisinopril-Hyd rochlorothiazide Active 1 EACH PO DAILY February 14, 2019 11:00pm hydrophilic wound dressing (TRIAD) external paste (1 source) Start: 01-26-2025 Apply external ly, 2 TIMES DAILY, First dose on Fri01/26/25 at 1030, Until Discontinued iohexol (OMNIPAQUE) 350 MG/M L injection (2 sources) Start: 01-28-2025 End: 01-28-2025 250 mL, Intra-arterial, Once at Radiology exam, 1 dose, Starting on Fri01/28/25 at 1550, Until Fri01/28/25 at 1709, Imaging Protocol Orders Start: 01-25-2025 End: 01-25-2025 100 mL, Intravenous, Once at Radiology exam, 1 dose, Starting on Fri01/25/25 at 1609, Until Fri01/25/25 at 1609, Imaging Protocol Orders meclizine hydrochloride 25 mg oral tablet (20 sources) Antiemetic Start: 02-15-2019 End: 12-24-2019 take 1 tablet by mouth twice daily as needed Meclizine 25 MG tablet Discontinued 25 mg PO TWICE DAILY NEEDED as needed for VERITGO 30 0 February 15, 2019 11:19am December 24, 2019 12:27pm Start: 02-14-2019 End: 02-15-2019 take 1 tablet by mouth once daily as needed Meclizine 25 MG tablet Discontinued 25 mg PO DAILY as needed for VERITGO February 14, 2019 12:00am February 15, 2019 11:19am 2 ml midazolam 1 mg/ml injection (2 sources) Benzodiazepine Start: 01-28-2025 End: 01-28-2025 Intravenous, PRN, Starting on Fri01/28/25 at 1554, Until Fri01/28/25 at 1741, Intra Procedure Start: 01-27-2025 End: 01-27-2025 Intravenous, ONCE PRN, Start ing on Fri01/27/25 at 1600, Until Fri01/27/25 at 1606 nystatin 100 unt/mg topical powder (1 source) Polyene Antifungal Start: 01-26-2025 apply 1 dose topically twice daily Topical, 2 TIMES DAILY, First dose on Fri01/26/25 at 1030, Until Discontinued pantoprazole 40 mg delayed release oral tablet (2 sources) Proton Pump Inhibitor Start: 01-28-2025 take 40 mg by mouth once daily 30 minutes before breakfast 40 mg, Oral, DAILY 30 MIN BEFORE BREAKFAST, First dose on Fri01/28/25 at 0830, Until Discontinued Start: 01-26-2025 End: 01-28-2025 40 mg, Intravenous, DAILY, F irst dose on Fri01/26/25 at 0900, Until Discontinued polyethylene glycol 3350 976679 mg / potassium chloride 1480 mg / sodium bicarbonate 5720 mg / sodium chloride 97812 mg powder for oral solution (2 sources) Osmotic Laxative Start: 01-25-2025 End: 01-26-2025 take 1 dose by mouth once 4,000 mL, Oral, ONCE, 1 dose, On Fri01/26/25 at 1200 potassium chloride 1.33 meq/ml oral solution (3 sources) Start: 01-28-2025 End: 01-28-2025 take 1 dose by mouth once 40 mEq, Oral, ONCE, 1 dose, On Fri01/28/25 at 0330 Start: 01-27-2025 End: 01-27-2025 20 mEq, Intravenous, ONCE, 1 dose, On Jesi 01/27/25 at 1330, at 50 mL/hr Start: 01-24-2025 take 1 tablet by roz th once daily Potassium Chloride 20 mEq tablet,ER particles/crystals Active 20 meq PO DAILY January 24, 2025 12:00am Problems Problem Classification Problem Date Documented Da te Episodic/Chronic Acute posthemorrhagic anemia (6 sources) Acute posthemorrhagic anemia; Translations: [Acute posthemorrhagic anemia] Onset: 01-29-2025 01-29-2025 Episodic Aortic; peripheral; and visceral artery aneurysms (10 sources) Aneurysm of hepatic artery; 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] Onset: 01-29-2025 01-25-2025 Chronic Bacterial infection; unspecified site (13 sources) Infection due to Staphylococcus aureus; Translations: [Methicillin susceptible Staphylococcus aureus infection, unspecified site] 02-15-2019 Episodic Chronic ulcer of skin (20 sources) Ulcer of lower extremity; Translations: [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] 04-11-2021 Chronic Comment on above: Venous leg ulcer Conduction disorders (1 source) Right bundle branch block; Translations: [Unspecified right bundle-branch block] 01-27-2025 Chronic Deficiency and other anemia (1 source) Anemia; Translations: [Anemia, unspecified] 01-25-2025 Episodic Delirium, dementia, and amnestic and other cognitive disorders (4 sources) Dementia; Translations: [Mild dementia without behavioral disturbance, psychotic disturbance, mood disturbance, or anxiety, unspecified dementia type] Onset: 08-31-2024 01-29-2025 Chronic Disorders of lipid metabolism (8 sources) Hyperlipidemia; Translations: [Hyperlipidemia, unspecified] Onset: 07-09-2024 01-29-2025 Chronic Essential hypertension (15 sources) Essential (primary) hypertension; Translations: [Hypertensive disorder] Onset: 11-24-2019 06-15-2021 Chronic Gastrointestinal hemorrhage (15 sources) Rectal hemorrhage; Translations: [Hemorrhage of anus and rectum] Onset: 01-25-2025 01-25-2025 Episodic Open wounds of extremities (13 sources) Open wound of lower limb; Translations: [Laceration without foreign body, left lower leg, initial encounter] 02-15-2019 Episodic Other aftercare (1 source) Anticoagulant control - finding; Translations: [prison (current) use of 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s] 01-25-2025 Episodic Other aftercare (8 sources) Long-term current use of 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; 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] Onset: 01-29-2025 01-31-2025 Episodic Other and unspecified benign neoplasm (1 source) Polyp of ascending colon; Translations: [Polyp of colon] 01-27-2025 Episodic Other and unspecified benign neoplasm (4 sources) Adenomatous polyp of colon ; Translations: [Benign neoplasm of ascending colon] 02-09-2025 Episodic Other connective tissue disease (6 sources) Pain in left lower limb; Translations: [Pain in left leg] 05-21-2023 Episodic Other connective tissue disease (4 sources) Pain in left leg; Translations: [Pain in limb] 05-28-2023 Episodic Other diseases of veins and lymphatics (13 sources) Lymphedema; Translations: [Lymphedema, not elsewhere classified] 01-07-2020 Chronic Other injuries and conditions due to external causes (13 sources) Local infection of wound; Translations: [Other injury of unspecified body region, initial encounter] 04-11-2021 Episodic Other nutritional; endocrine; and metabolic disorders (1 source) Disorder of bilirubin metabolism, unspecified; 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, unspecified] Onset: 11-10-2024 Chronic Other screening for suspected conditions (not mental disorders or infectious disease) (2 sources) Encounter for screening for lipoid disorders; Translations: [Electrocardiogram abnormal] Onset: 11-24-2019 01-27-2025 Episodic Peripheral and visceral atherosclerosis (19 sources) Peripheral vascular disease; Translations: [Peripheral vascular disease, unspecified] 01-07-2020 Chronic Phlebitis; thrombophlebitis and thromboembolism (7 sources) H/O: Deep vein thrombosis; Translations: [Personal history of other venous thrombosis and embolism] Onset: 01-29-2025 01-25-2025 Episodic Residual codes; unclassified (13 sources) Bilateral lower limb edema; Translations: [Localized edema] 01-21-2020 Episodic Skin and subcutaneous tissue infections (20 sources) Cellulitis of lower limb; Translations: [Cellulitis of left lower limb] 01-21-2020 Episodic Transient cerebral ischemia (13 sources) Transient cerebral ischemia; Translations: [Transient cerebral ischemic attack, unspecified] 12-24-2019 Chronic Results Test Name Value Interpretation Reference Range Facility Basic Metabolic Profile (BMP )on 02-09-2025 BUN/CRE 10.8 RATIO Normal 10-20 [facility] Comment on above: Order Comment: 155 Performed By: #### L [id number] #### [facility] [address] [place], [address] Calcium [Mass/Vol] 8.6 mg/dL Normal 7.6-11.0 [facility] Comment on above: Order Comment: 155 Performed By: #### L [id number] #### [facility] [address] [place], [address] Chloride [Moles/Vol] 106 mmol/L Normal 98-108 [facility] Comment on above: Order Comment: 155 Performed By: #### L [id number] #### [facility] [address] [place], [address] CO2 [Moles/Vol] 25.8 mmol/L Normal 21.0-32.0 [facility] Comment on above: Order Comment: 155 Performed By: #### L [id number] #### [facility] [address] [place], [address] Creatinine [Mass/Vol] 0.70 mg/dL Normal 0.70-1.20 [facility] Comment on above: Order Comment: 155 Performed By: #### L [id number] #### [facility] [address] [place], [address] GAP 9 Normal 5-15 [facility] Comment on above: Order Comment: 155 Performed By: #### L [id number] #### [facility] [address] [place], [address] GFR/1.73 sq M.predicted among non-blacks MDRD (S/P/Bld) [Vol rate/Area] 86 mL/min/{1.73_m2} Normal >60 [facility] Comment on above: Order Comment: 155 Result Comment: mL/m in/1.73m2 CKD-EPI Creatinine Equation (2020) Performed By: #### L [id number] #### [facility] [address] [place], [address] Glucose [Mass/Vol] 104 mg/dL High 70-99 [facility] Comment on above: Order Comment: 155 Performed By: #### L [id number] #### [facility] [address] [place], [address] Potassium [Moles/Vol] 4.8 mmol/L Normal 3.3-5.1 [facility] Comment on above: Order Comment: 155 Performed By: #### L [id number] #### [facility] [address] [place], [address] Sodium [Moles/Vol] 141 mmol/L Normal 133-145 [facility] Comment on above: Order Comment: 155 Performed By: #### L [id number] #### [facility] [address] [place], [address] Urea nitrogen [Mass/Vol] 8 mg/dL Normal 4-19 [facility] Comment on above: Order Comment: 155 Performed By: #### L [id number] #### [facility] [address] [place], [address] CBC-Complete Blood Cnt No Di ffon 02-09-2025 Erythrocyte distribution width (RBC) [Ratio] 19.7 % High 11.6-14.6 [facility] Comment on above: Order Comment: 155 Performed By: #### L [id number] #### [facility] [address] [place], [address] Hematocrit (Bld) [Volume fraction] 26.2 % Low 37-47 [facility] Comment on above: Order Comment: 155 Performed By: #### L [id number] #### [facility] [address] [place], [address] Hemoglobin (Bld) [Mass/Vol] 7.7 g/dL Low 12.0-15.0 [facility] Comment on above: Order Comment: 155 Performed By: #### L [id number] #### [facility] [address] [place], [address] MCH (RBC) [Entitic mass] 22.2 pg Low 27.0-32.0 [facility] Comment on above: Order Comment: 155 Performed By: #### L [id number] #### [facility] [address] [place], [address] MCHC (RBC) [Mass/Vol] 29.4 g/dL Low 32-36 [facility] Comment on above: Order Comment: 155 Performed By: #### L [id number] #### [facility] [address] [place], [address] MCV (RBC) [Entitic vol] 75.5 fL Low 81-99 [facility] Comment on above: Order Comment: 155 Performed By: #### L [id number] #### [facility] [address] [place], [address] Platelet mean volume (Bld) [Entitic vol] 9.5 fL Normal 6.2-12.0 [facility] Comment on above: Order Comment: 155 Performed By: #### L [id number] #### [facility] [address] [place], [address] Platelets (Bld) [#/Vol] 559 10*3/uL High 150-450 [facility] Comment on above: Order Comment: 155 Performed By: #### L [id number] #### [facility] [address] [place], [address] RBC (Bld) [#/Vol] 3.47 10*6/uL Low 4.2-5.4 [facility] Comment on above: Order Comment: 155 Performed By: #### L [id number] #### [facility] [address] [place], [address] RDW SD 53.1 fl High 35.1-43.9 [facility] Comment on above: Order Comment: 155 Performed By: #### L [id number] #### [facility] [address] [place], [address] WBC (Bld) [#/Vol] 8.7 10*3/uL Normal 4.4-11.0 [facility] Comment on above: Order Comment: 155 Performed By: #### L [id number] #### [facility] [address] [place], [address] CBC-Complete Blood Cnt No Di ffon 02-02-2025 Erythrocyte distribution width (RBC) [Ratio] 19.4 % High 11.6-14.6 [facility] Comment on above: Order Comment: 155 Performed By: #### L [id number], L506.1001, L503.0106, L100.0500 ####[facility] [address] [place], [address] Hematocrit (Bld) [Volume fraction] 27.5 % Low 37-47 [facility] Comment on above: Order Comment: 155 Performed By: #### L [id number], L506.1001, L503.0106, L100.0500 ####[facility] [address] [place], [address] Hemoglobin (Bld) [Mass/Vol] 8.0 g/dL Low 12.0-15.0 [facility] Comment on above: Order Comment: 155 Performed By: #### L [id number], L506.1001, L503.0106, L100.0500 ####[facility] [address] [place], [address] MCH (RBC) [Entitic mass] 22.5 pg Low 27.0-32.0 [facility] Comment on above: Order Comment: 155 Performed By: #### L [id number], L506.1001, L503.0106, L100.0500 ####[facility] [address] [place], [address] MCHC (RBC) [Mass/Vol] 29.1 g/dL Low 32-36 [facility] Comment on above: Order Comment: 155 Performed By: #### L [id number], L506.1001, L503.0106, L100.0500 ####[facility] [address] [place], [address] MCV (RBC) [Entitic vol] 77.5 fL Low 81-99 [facility] Comment on above: Order Comment: 155 Performed By: #### L [id number], L506.1001, L503.0106, L100.0500 ####[facility] [address] [place], [address] Platelet mean volume (Bld) [Entitic vol] 10.5 fL Normal 6.2-12.0 [facility] Comment on above: Order Comment: 155 Performed By: #### L [id number], L506.1001, L503.0106, L100.0500 ####[facility] [address] [place], [address] Platelets (Bld) [#/Vol] 376 10*3/uL Normal 150-450 [facility] Comment on above: Order Comment: 155 Performed By: #### L [id number], L506.1001, L503.0106, L100.0500 ####[facility] [address] [place], [address] RBC (Bld) [#/Vol] 3.55 10*6/uL Low 4.2-5.4 [facility] Comment on above: Order Comment: 155 Performed By: #### L [id number], L506.1001, L503.0106, L100.0500 ####[facility] [address] [place], [address] RDW SD 54.1 fl High 35.1-43.9 [facility] Comment on above: Order Comment: 155 Performed By: #### L [id number], L506.1001, L503.0106, L100.0500 ####[facility] [address] [place], [address] WBC (Bld) [#/Vol] 11.8 10*3/uL High 4.4-11.0 [facility] Comment on above: Order Comment: 155 Performed By: #### L [id number], L506.1001, L503.0106, L100.0500 ####[facility] [address] [place], [address] Comprehensive Metabolic Prof deon 02-02-2025 Albumin [Mass/Vol] 3.4 g/dL Normal 3.4-4.8 [facility] Comment on above: Order Comment: 155 Performed By: #### L [id number], L506.1001, L503.0106, L100.0500 ####[facility] [address] [place], [address] Albumin/Globulin [Mass ratio] 1.3 {ratio} Normal 0.9-2.4 [facility] Comment on above: Order Comment: 155 Performed By: #### L [id number], L506.1001, L503.0106, L100.0500 ####[facility] [address] [place], [address] ALK PHOS 102 U/L Normal 35-104 [facility] Comment on above: Order Comment: 155 Performed By: #### L 500.4050, L506.1001, L503.0106, L100.0500 ####[facility] [address] [place], [address] ALT [Catalytic activity/Vol] 12 U/L Normal <=34 [facility] Comment on above: Order Comment: 155 Performed By: #### L 500.4050, L506.1001, L503.0106, L100.0500 ####[facility] [address] [place], [address] AST [Catalytic activity/Vol] 27 U/L Normal <=31 [facility] Comment on above: Order Comment: 155 Performed By: #### L 500.4050, L506.1001, L503.0106, L100.0500 ####[facility] [address] [place], [address] Bilirubin [Mass/Vol] 1.49 mg/dL High 0.00-1.30 [facility] [place] Comment on above: Order Comment: 155 Performed By: #### L 500.4050, L506.1001, L503.0106, L100.0500 ####[facility] [address] [place], [address] BUN/CRE 12.3 RATIO Normal 10-20 [facility] Comment on above: Order Comment: 155 Performed By: #### L 500.4050, L506.1001, L503.0106, L100.0500 ####[facility] [address] [place], [address] Calcium [Mass/Vol] 8.5 mg/dL Normal 7.6-11.0 [facility] Comment on above: Order Comment: 155 Performed By: #### L 500.4050, L506.1001, L503.0106, L100.0500 ####[facility] [address] [place], [address] Chloride [Moles/Vol] 102 mmol/L Normal 98-108 [facility] [place] Comment on above: Order Comment: 155 Performed By: #### L 500.4050, L506.1001, L503.0106, L100.0500 ####[facility] [address] [place], [address] CO2 [Moles/Vol] 23.0 mmol/L Normal 21.0-32.0 [facility] Comment on above: Order Comment: 155 Performed By: #### L 500.4050, L506.1001, L503.0106, L100.0500 ####[facility] [address] [place], [address] Creatinine [Mass/Vol] 0.71 mg/dL Normal 0.70-1.20 [facility] Comment on above: Order Comment: 155 Performed By: #### L 500.4050, L506.1001, L503.0106, L100.0500 ####[facility] [address] [place], [address] GAP 11 Normal 5-15 [facility] Comment on above: Order Comment: 155 Performed By: #### L 500.4050, L506.1001, L503.0106, L100.0500 ####[facility] [address] [place], [address] GFR/1.73 sq M.predicted among non-blacks MDRD (S/P/Bld) [Vol rate/Area] 84 mL/min/{1.73_m2} Normal >60 [facility] Comment on above: Order Comment: 155 Result Comment: mL/m in/1.73m2 CKD-EPI Creatinine Equation (2020) Performed By: #### L 500.4050, L506.1001, L503.0106, L100.0500 ####[facility] [address] [place], [address] Globulin (S) [Mass/Vol] 2.6 g/dL Normal 2.2-4.2 [facility] Comment on above: Order Comment: 155 Performed By: #### L 500.4050, L506.1001, L503.0106, L100.0500 ####[facility] [address] [place], [address] Glucose [Mass/Vol] 101 mg/dL High 70-99 [facility] Comment on above: Order Comment: 155 Performed By: #### L 500.4050, L506.1001, L503.0106, L100.0500 ####[facility] [address] [place], [address] Potassium [Moles/Vol] 4.1 mmol/L Normal 3.3-5.1 [facility] Comment on above: Order Comment: 155 Performed By: #### L 500.4050, L506.1001, L503.0106, L100.0500 ####[facility] [address] [place], [address] Sodium [Moles/Vol] 136 mmol/L Normal 133-145 [facility] Comment on above: Order Comment: 155 Performed By: #### L 500.4050, L506.1001, L503.0106, L100.0500 ####[facility] [address] [place], [address] T PROT 6.0 g/dL Normal 5.9-8.4 [facility] Comment on above: Order Comment: 155 Performed By: #### L 500.4050, L506.1001, L503.0106, L100.0500 ####[facility] [address] [place], [address] Urea nitrogen [Mass/Vol] 9 mg/dL Normal 4-19 [facility] Comment on above: Order Comment: 155 Performed By: #### L 500.4050, L506.1001, L503.0106, L100.0500 ####[facility] [address] [place], [address] Vitamin B12on 02-02-2025 Cobalamin (Vitamin B12) [Mass/Vol] 650 pg/mL Normal 180-914 [facility] Comment on above: Order Comment: 155 Performed By: #### L 500.4050, L506.1001, L503.0106, L100.0500 ####[facility] [address] [place], [address] Vitamin D,25 Hydroxyon 02-02 Vitamin D 25-OH 46.4 ng/mL Normal 30-100 [facility] Comment on above: Order Comment: 155 Result Comment: Alessandra min D Status Deficiency: <20 ng/mL (50nmol/L) Insufficiency: 20-30 ng/mL (50-75 nmol/L) Sufficiency: 30-100 ng/mL (75-250 nmol/L) Toxicity: >100 ng/mL (>250 nmol/L) Performed By: #### L 500.4050, L506.1001, L503.0106, L100.0500 ####[facility] [address] [place], [address] XA ADDITIONAL VESSELS (KATYA)o n 02-01-2025 XA ADDITIONAL VESSELS (KATYA) EXAMINATION: XA ART EMBO NON HEMORRHAGE (KATYA), XA ADDITIONAL VESSELS (KATYA), XA CELIAC ARTERY (KATYA) 01/28/2025 05:44 PM CLINICAL HISTORY: Rad Procedure required: = Cliping of annuerysm,Hepatic Artery auerysm/pseudo anuerysm ASSOCIATED DIAGNOSIS: ORDERING PROVIDER: ANSELMO WHITTAKER TECHNOLOGISTS NOTE: Moderate sedation intraservice started 1554 ended 1731. FLUOROSCOPIST: Anselmo Whittaker FLUORO TIME: 2.7 Minutes ATTENDING PHYSICIAN: Anselmo Whittaker RESIDENT/FELLOW PHYSICIAN: Bessy Acuña INTRA-PROCEDURE MEDS: fentaNYL (SUBLIMAZE) 100 MCG/2ML injection 50 mcg Route: Intravenous iohexol (OMNIPAQUE) 350 MG/ML injection 150 mL Route: Intra-arterial SEDATION TIME: Start time: Stop time: INFORMED CONSENT: Written informed consent was obtained. The procedure, risks, benefits, and alternatives were discussed. All questions were answered. TIMEOUT: Physician led timeout was conducted documenting correct patient, procedure, site, fire risk, antibiotics and allergies. COMPLICATIONS: None ESTIMATED BLOOD LOSS: Less than 10 mL TECHNIQUE: The patient was positioned supine on the angiography table. The left groin was prepped and draped in the usual aseptic fashion. Lidocaine was used for local anesthesia. A 21 gauge micropuncture needle was used to access the left common femoral artery. A 0.018 inch microwire was passed through the needle and the needle exchanged for a micropuncture sheath. The dilator was removed and an 0.035 inch wire was advanced through the sheath and the sheath exchanged for a 5 Guinean hemostatic sheath. Under fluoroscopic guidance, a 5 Guinean Sos-2 catheter was used to catheterize the superior mesenteric artery. SMA angiography was performed. The catheter was then repositioned into the celiac artery and celiac angiography was performed. The 5 Guinean diagnostic sheath was exchanged over wire for a 6 Guinean long angled sheath. Sheath was advanced into the celiac artery. Microcatheter was prepared and advanced over a microwire into the hepatic artery pseudoaneurysm. Embolization was performed with multiple detachable microcoils with DSA angiogram was performed prior to coil attachment to confirm location. Following final coil placement, microcatheter was removed. Completion celiac artery angiogram was performed. A sheath-injected right external iliac run was made, imaging over the right hemipelvis. The sheath was removed and satisfactory hemostasis obtained using an angioseal device. The patient tolerated the procedure well without immediate complication and was transferred from the angiography suite in stable condition. FINDINGS: Superior mesenteric artery angiogram demonstrates standard anatomy. No superior mesenteric artery supply to the celiac axis is demonstrated. Celiac artery injection with DSA over the upper abdomen shows mild proximal celiac artery stenosis. Prominent left gastric artery is noted. 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 Compared to the prior CT examination, the pseudoaneurysm was partially thrombosed. Antegrade flow to the liver is noted beyond the pseudoaneurysm. Following embolization, celiac artery injection within the with DSA over the upper abdomen shows appropriate occlusion of the hepatic artery aneurysm which is embolized with coils. There is persistent appropriate antegrade flow through the right and left hepatic arteries to the liver parenchyma. Right external iliac artery injection, imaging over the left hemipelvis, shows no contraindication to the use of an AngioSeal device. 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 Follow-up angiogram in 3 months is recommended to confirm stability of the embolization coils. MACRO: None I have personally reviewed the images and agree with the resident's interpretation. Normal [facility] XA ART EMBO NON HEMORRHAGE ( KATYA)on 02-01-2025 XA ART EMBO NON HEMORRHAGE (KATYA) EXAMINATION: XA ART EMBO NON HEMORRHAGE (KATYA), XA ADDITIONAL VESSELS (KATYA), XA CELIAC ARTERY (KATYA) 01/28/2025 05:44 PM CLINICAL HISTORY: Rad Procedure required: = Cliping of annuerysm,Hepatic Artery auerysm/pseudo anuerysm ASSOCIATED DIAGNOSIS: ORDERING PROVIDER: ANSELMO WHITTAKER TECHNOLOGISTS NOTE: Moderate sedation intraservice started 1554 ended 173. FLUOROSCOPIST: Anselmo Whittaker FLUORO TIME: 2.7 Minutes ATTENDING PHYSICIAN: Anselmo Whittaker RESIDENT/FELLOW PHYSICIAN: Bessy Acuña INTRA-PROCEDURE MEDS: fentaNYL (SUBLIMAZE) 100 MCG/2ML injection 50 mcg Route: Intravenous iohexol (OMNIPAQUE) 350 MG/ML injection 150 mL Route: Intra-arterial SEDATION TIME: Start time: Stop time: INFORMED CONSENT: Written informed consent was obtained. The procedure, risks, benefits, and alternatives were discussed. All questions were answered. TIMEOUT: Physician led timeout was conducted documenting correct patient, procedure, site, fire risk, antibiotics and allergies. COMPLICATIONS: None ESTIMATED BLOOD LOSS: Less than 10 mL TECHNIQUE: The patient was positioned supine on the angiography table. The left groin was prepped and draped in the usual aseptic fashion. Lidocaine was used for local anesthesia. A 21 gauge micropuncture needle was used to access the left common femoral artery. A 0.018 inch microwire was passed through the needle and the needle exchanged for a micropuncture sheath. The dilator was removed and an 0.035 inch wire was advanced through the sheath and the sheath exchanged for a 5 Guinean hemostatic sheath. Under fluoroscopic guidance, a 5 Guinean Sos-2 catheter was used to catheterize the superior mesenteric artery. SMA angiography was performed. The catheter was then repositioned into the celiac artery and celiac angiography was performed. The 5 Guinean diagnostic sheath was exchanged over wire for a 6 Guinean long angled sheath. Sheath was advanced into the celiac artery. Microcatheter was prepared and advanced over a microwire into the hepatic artery pseudoaneurysm. Embolization was performed with multiple detachable microcoils with DSA angiogram was performed prior to coil attachment to confirm location. Following final coil placement, microcatheter was removed. Completion celiac artery angiogram was performed. A sheath-injected right external iliac run was made, imaging over the right hemipelvis. The sheath was removed and satisfactory hemostasis obtained using an angioseal device. The patient tolerated the procedure well without immediate complication and was transferred from the angiography suite in stable condition. FINDINGS: Superior mesenteric artery angiogram demonstrates standard anatomy. No superior mesenteric artery supply to the celiac axis is demonstrated. Celiac artery injection with DSA over the upper abdomen shows mild proximal celiac artery stenosis. Prominent left gastric artery is noted. 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 Compared to the prior CT examination, the pseudoaneurysm was partially thrombosed. Antegrade flow to the liver is noted beyond the pseudoaneurysm. Following embolization, celiac artery injection within the with DSA over the upper abdomen shows appropriate occlusion of the hepatic artery aneurysm which is embolized with coils. There is persistent appropriate antegrade flow through the right and left hepatic arteries to the liver parenchyma. Right external iliac artery injection, imaging over the left hemipelvis, shows no contraindication to the use of an AngioSeal device. 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 Follow-up angiogram in 3 months is recommended to confirm stability of the embolization coils. MACRO: None I have personally reviewed the images and agree with the resident's interpretation. Normal [facility] XA CELIAC ARTERY (KATYA)on XA CELIAC ARTERY (KATYA) EXAMINATION: XA A RT EMBO NON HEMORRHAGE (KATYA), XA ADDITIONAL VESSELS (KATYA), XA CELIAC ARTERY (KATYA) 01/28/2025 05:44 PM CLINICAL HISTORY: Rad Procedure required: = Cliping of annuerysm,Hepatic Artery auerysm/pseudo anuerysm ASSOCIATED DIAGNOSIS: ORDERING PROVIDER: ANSELMO WHITTAKER TECHNOLOGISTS NOTE: Moderate sedation intraservice started 1554 ended 1731. FLUOROSCOPIST: Anselmo Whittaker FLUORO TIME: 2.7 Minutes ATTENDING PHYSICIAN: Anselmo Whittaker RESIDENT/FELLOW PHYSICIAN: Bessy Acuña INTRA-PROCEDURE MEDS: fentaNYL (SUBLIMAZE) 100 MCG/2ML injection 50 mcg Route: Intravenous iohexol (OMNIPAQUE) 350 MG/ML injection 150 mL Route: Intra-arterial SEDATION TIME: Start time: Stop time: INFORMED CONSENT: Written informed consent was obtained. The procedure, risks, benefits, and alternatives were discussed. All questions were answered. TIMEOUT: Physician led timeout was conducted documenting correct patient, procedure, site, fire risk, antibiotics and allergies. COMPLICATIONS: None ESTIMATED BLOOD LOSS: Less than 10 mL TECHNIQUE: The patient was positioned supine on the angiography table. The left groin was prepped and draped in the usual aseptic fashion. Lidocaine was used for local anesthesia. A 21 gauge micropuncture needle was used to access the left common femoral artery. A 0.018 inch microwire was passed through the needle and the needle exchanged for a micropuncture sheath. The dilator was removed and an 0.035 inch wire was advanced through the sheath and the sheath exchanged for a 5 Guinean hemostatic sheath. Under fluoroscopic guidance, a 5 Guinean Sos-2 catheter was used to catheterize the superior mesenteric artery. SMA angiography was performed. The catheter was then repositioned into the celiac artery and celiac angiography was performed. The 5 Guinean diagnostic sheath was exchanged over wire for a 6 Guinean long angled sheath. Sheath was advanced into the celiac artery. Microcatheter was prepared and advanced over a microwire into the hepatic artery pseudoaneurysm. Embolization was performed with multiple detachable microcoils with DSA angiogram was performed prior to coil attachment to confirm location. Following final coil placement, microcatheter was removed. Completion celiac artery angiogram was performed. A sheath-injected right external iliac run was made, imaging over the right hemipelvis. The sheath was removed and satisfactory hemostasis obtained using an angioseal device. The patient tolerated the procedure well without immediate complication and was transferred from the angiography suite in stable condition. FINDINGS: Superior mesenteric artery angiogram demonstrates standard anatomy. No superior mesenteric artery supply to the celiac axis is demonstrated. Celiac artery injection with DSA over the upper abdomen shows mild proximal celiac artery stenosis. Prominent left gastric artery is noted. 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 Compared to the prior CT examination, the pseudoaneurysm was partially thrombosed. Antegrade flow to the liver is noted beyond the pseudoaneurysm. Following embolization, celiac artery injection within the with DSA over the upper abdomen shows appropriate occlusion of the hepatic artery aneurysm which is embolized with coils. There is persistent appropriate antegrade flow through the right and left hepatic arteries to the liver parenchyma. Right external iliac artery injection, imaging over the left hemipelvis, shows no contraindication to the use of an AngioSeal device. 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 Follow-up angiogram in 3 months is recommended to confirm stability of the embolization coils. MACRO: None I have personally reviewed the images and agree with the resident's interpretation. Normal [facility] CBC WITH DIFFERENTIALon 01-08 Basophils (Bld) [#/Vol] 0.06 10*3/uL 0.00 - 0.20 K/uL [facility] Basophils/100 WBC (Bld) 0.5 % NINF - 1.9 % [facility] Eosinophils (Bld) [#/Vol] 0.15 10*3/uL 0.00 - 0.70 K/uL [facility] Eosinophils/100 WBC (Bld) 1.4 % 0.1 - 4.0 % [facility] Erythrocyte distribution width (RBC) [Ratio] 21.7 % High 11.5 - 14.5 % [facility] Hematocrit (Bld) [Volume fraction] 25.5 % Low 36.0 - 46.0 % [facility] Hemoglobin (Bld) [Mass/Vol] 8.1 g/dL Low 12.0 - 15.0 g/dL [facility] Interpretation and review of laboratory results Abnormal [facility] Lymphocytes (Bld) [#/Vol] 1.13 10*3/uL 1.00 - 4.80 K/uL [facility] Lymphocytes/100 WBC (Bld) 10.6 % Low 24.0 - 44.0 % [facility] MCH (RBC) [Entitic mass] 23.3 pg Low 26.0 - 34.0 pg [facility] MCHC (RBC) [Mass/Vol] 31.8 g/dL Low 32.0 - 35.9 g/dL [facility] MCV (RBC) [Entitic vol] 73 fL Low 80 - 100 fL [facility] Monocytes (Bld) [#/Vol] 1.76 10*3/uL High 0.20 - 1.00 K/uL [facility] Monocytes/100 WBC (Bld) 16.5 % High 2.0 - 11.0 % [facility] Neutrophils (Bld) [#/Vol] 7.56 10*3/uL 1.50 - 8.00 K/uL [facility] Neutrophils/100 WBC (Bld) 71 % 31.0 - 76.0 % [facility] Platelet mean volume (Bld) [Entitic vol] 8.1 fL 7.5 - 11.2 fL [facility] Platelets (Bld) [#/Vol] 209 10*3/uL 150 - 400 K/uL [facility] RBC (Bld) [#/Vol] 3.47 10*6/uL Low [facility] WBC (Bld) [#/Vol] 10.6 10*3/uL 4.5 - 11.5 K/uL [facility] Basophils (Bld) [#/Vol] 0.06 10*3/uL Normal 0.00-0.20 [facility] Comment on above: Performed By: #### DAMON Haimlton #### [facility] [address] [place] [address], Basophils/100 WBC (Bld) 0.5 % Normal <=1.9 [facility] Comment on above: Performed By: #### DAMON Hamilton #### [facility] [address] [place] [address], Eosinophils (Bld) [#/Vol] 0.15 10*3/uL Normal 0.00-0.70 [facility] Comment on above: Performed By: ###DAMON Glover #### [facility] [address] [place] [address], Eosinophils/100 WBC (Bld) 1.4 % Normal 0.1-4.0 [facility] Comment on above: Performed By: #### Aruna Olivas, CH8 #### [facility] [address] [place] [address], Erythrocyte distribution width (RBC) [Ratio] 21.7 % High 11.5-14.5 [facility] Comment on above: Performed By: #### Aruna Olivas, CH8 #### [facility] [address] [place] [address], Hematocrit (Bld) [Volume fraction] 25.5 % Low 36.0-46.0 [facility] Comment on above: Performed By: #### Aruna Olivas, CH8 #### [facility] [address] [place] [address], Hemoglobin (Bld) [Mass/Vol] 8.1 g/dL Low 12.0-15.0 [facility] Comment on above: Performed By: #### Aruna Olivas, CH8 #### [facility] [address] [place] [address], Lymphocytes (Bld) [#/Vol] 1.13 10*3/uL Normal 1.00-4.80 [facility] Comment on above: Performed By: #### Aruna Olivas, CH8 #### [facility] [address] [place] [address], Lymphocytes/100 WBC (Bld) 10.6 % Low 24.0-44.0 [facility] Comment on above: Performed By: #### Aruna Olivas, CH8 #### [facility] [address] [place] [address], MCH (RBC) [Entitic mass] 23.3 pg Low 26.0-34.0 [facility] Comment on above: Performed By: #### Aruna Olivas, CH8 #### [facility] [address] [place] [address], MCHC (RBC) [Mass/Vol] 31.8 g/dL Low 32.0-35.9 [facility] Comment on above: Performed By: #### Aruna Olivas, CH8 #### [facility] [address] [place], [place], MCV (RBC) [Entitic vol] 73 fL Low 80-100 [facility] Comment on above: Performed By: #### Aruna Olivas, CH8 #### [facility] [address] [place], [place], Monocytes (Bld) [#/Vol] 1.76 10*3/uL High 0.20-1.00 [facility] Comment on above: Performed By: #### Aruna Olivas, CH8 #### [facility] [address] [place], [place], Monocytes/100 WBC (Bld) 16.5 % High 2.0-11.0 [facility] Comment on above: Performed By: #### Aruna Olivas, CH8 #### [facility] [address] [place], [place], Neutrophils (Bld) [#/Vol] 7.56 10*3/uL Normal 1.50-8.00 [facility] Comment on above: Performed By: #### Aruna Olivas, CH8 #### [facility] [address] [place], [place], Neutrophils/100 WBC (Bld) 71.0 % Normal 31.0-76.0 [facility] Comment on above: Performed By: #### Aruna Olivas, CH8 #### [facility] [address] [place], [place], Platelet mean volume (Bld) [Entitic vol] 8.1 fL Normal 7.5-11.2 [facility] Comment on above: Performed By: #### Aruna Olivas, CH8 #### [facility] [address] [place], [place], Platelets (Bld) [#/Vol] 209 10*3/uL Normal 150-400 [facility] Comment on above: Performed By: #### Aruna Olivas, CH8 #### [facility] [address] [place], [place], RBC (Bld) [#/Vol] 3.47 10*6/uL Low 4.00-5.20 [facility] Comment on above: Performed By: #### M Deisy, RODRIGUEZ8 #### [facility] [address] [place], [place], WBC (Bld) [#/Vol] 10.6 10*3/uL Normal 4.5-11.5 [facility] Comment on above: Performed By: #### M Deisy, RODRIGUEZ8 #### [facility] [address] [place], [place], Discharge Planning [address] Mechanical Engineer Authentication Interface Message Text SW/CM aware that patient meets criteria for HHC. Spoke with Pts son over the phone to discuss dispo. Patient open and agreeable to HHC. CM provided Pt son the quality and resource use measure data from available post-acute (PAC) providers, that best align with the patient's treatment goals and preferences from the medicare.gov compare site for HHC. [place] [employer] Choice was provided to the patient/patient guest services representative. CM to follow up with accepting agencies. CM to continue to follow. ADDENDUM: CM spoke with Debra Campbell from [facility] and she states that the patient can receive therapy under Medicare part B from PT at her [facility] if she so wishes. CM will continue to follow additional discharge planning needs. ADDENDUM: CM spoke with Pt son and notified him that patient would be discharge back to her [facility] today. Son stated that he would be at to fish bait picker pt and transport her back to [facility] after 5pm. CM will continue to follow. Beranna Wilder MSN, RN Inpatient Forester [employer] 7E/[id number] Cell [phone] Desk [phone] Normal [facility] MANUAL DIFF AND MORPHon - Acanthocytes LM Ql (Bld) Few [facility] Carlos cells LM Ql (Bld) Few [facility] Cells Counted Total (Bld) [#] [facility] Microcytes Ql (Bld) Slight [facility] Ovalocytes LM Ql (Bld) Few [facility] RBC.hypochromic/100 RBC Auto (Bld) Moderate [facility] Schistocytes LM Ql (Bld) Few [facility] ACANTHOCYTES Few Normal [facility] Comment on above: Performed By: #### M Deisy, CH8 #### S PATHOLOGY LABORATORY [address] [place] [address], CARLOS CELLS Few Normal [facility] Comment on above: Performed By: #### M G, CH8 #### S PATHOLOGY LABORATORY [address] [place] [address], CELLS COUNTED TOTAL # IN BLOOD Normal [facility] Comment on above: Performed By: #### Aruna Olivas, CH8 #### S PATHOLOGY LABORATORY [address] [place] [address], FRAGMENTED RBC Few Normal [facility] Comment on above: Performed By: #### Aruna Olivas, CH8 #### [facility] [address] [place] [address], HYPOCHROMASIA Moderate Normal [facility] Comment on above: Performed By: #### Aruna Olivas, CH8 #### S PATHOLOGY LABORATORY [address] [place] [address], MICROCYTOSIS Slight Normal [facility] Comment on above: Performed By: #### Aurna Olivas, CH8 #### S PATHOLOGY LABORATORY [address] [place] [address], OVALOCYTES Few Normal [facility] Comment on above: Performed By: #### Aruna Olivas, CH8 #### [facility] [address] [place] [address], No Panel Informationon 01-31 [facility] Assessment AND Plan Noteon 0 01-30-2025 Rd Mechanical Engineer Exploretripation Interface Message Text --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 Whittaker or until AC restarted. Normal The [facility] [employer] Interface Message Text --trend CBC daily, transfuse as need, Hb goal >7. s/p 2u pRBCs. --GI consulted s/p colonoscopy 01/27/2025 with a rectal polyp biopsy to rule out malignancy; follow up pathology. This is thought to be etiology of her bleed versus internal hemorrhoids. --will need outpatient repeat colonoscopy for polypectomy --internal hemorrhoids noted, recommend routine hemorrhoid care --pharmacy dispense reports has been on Eliquis since 02/11/2024 --Eliquis currently held since 01/23/2025, unknown nature of DVT. If lifelong anticoagulation is advised will need to restart Eliquis. --discussed with the patient's son starting on therapeutic Lovenox and if no further signs of bleeding to transition to Eliquis for discharge. I will reach out to GI today to ensure it is okay to resume anticoagulation after polyp biopsy Normal The [employer] [address] Mechanical Engineer Authentication Interface Message Text --chronic. stable. continue home statin Normal [facility] BASIC METABOLIC PANELon 08- Anion gap [Moles/Vol] 11 mmol/L Normal 10-20 [facility] Comment on above: Performed By: #### Aruna Olivas, CH8 ####S PATHOLOGY [id number] [place], [place], Calcium [Mass/Vol] 8.1 mg/dL Low 8.6-10.3 [facility] Comment on above: Performed By: #### Aruna Olivas, 8 ####S PATHOLOGY [id number] [place], [place], Chloride [Moles/Vol] 106 mmol/L Normal 98-107 [facility] Comment on above: Performed By: #### Aruna Olivas, CH8 ####S PATHOLOGY [id number] [place], [place], CO2 [Moles/Vol] 27 mmol/L Normal 21-31 [facility] Comment on above: Performed By: #### Aruna Olivas, 8 ####[facility] PATHOLOGY [id number] [place], [place], Creatinine [Mass/Vol] 0.51 mg/dL Low 0.60-1.20 [facility] Comment on above: Performed By: #### Aruna Olivas, CH8 ####S PATHOLOGY [id number] [place], [place], ESTIMATED GFR (CKD-EPI) 93 mL/min/1.73sqm Normal >=60 [facility] Comment on above: Result Comment: 2020 CKD EPI Equation using Creatinine without Race Comment: Estimated glomerular filtration rate (eGFR) is calculated without a race coefficient. Values should be interpreted in the context of the patient's full clinical presentation. Reference: 1. Raul García, Adalgisa M, Elizabeth MITCHELL, et al.. A Unifying Approach for GFR Estimation: Recommendations of the NKF-ASN Task Force on Reassessing the Inclusion of Race in Diagnosing Kidney Disease. [place] Journal of Kidney Diseases 2021;79(2):268-88.e1. 2. N Engl J Med 1 Vol. 385 Issue 19 Pages 0115-9214 Performed By: #### Aruna Olivas, CH8 ####S PATHOLOGY [id number] [place], [place], Glucose [Mass/Vol] 94 mg/dL Normal 74-109 [facility] Comment on above: Performed By: #### Aruna Olivas, CH8 ####S PATHOLOGY [id number] [place], [place], Potassium [Moles/Vol] 4.1 mmol/L Normal 3.5-5.0 [facility] Comment on above: Performed By: #### Aruna Olivas, CH8 ####S PATHOLOGY [id number] [place], Sodium [Moles/Vol] 140 mmol/L Normal 136-145 [facility] Comment on above: Performed By: #### Aruna Olivas, CH8 ####[facility] PATHOLOGY [id number] [place], [place], Urea nitrogen [Mass/Vol] 6 mg/dL Low 7-25 The [facility] Comment on above: Performed By: #### Aruna Olivas, CH8 ####S PATHOLOGY [id number] [place], [place], Basic metabolic 2000 panelon 01-30-2025 Anion gap [Moles/Vol] 11 mmol/L 10 - [address] [facility] Cal[facility] [Mass/Vol] 8.1 mg/dL Low 8.6 - 10. 3 mg/dL [facility] Chloride [Moles/Vol] 106 mmol/L 98 - 10 7 mmol/L [facility] CO2 [Moles/Vol] 27 mmol/L 21 - 31 mmol/L [facility] Creatinine [Mass/Vol] 0.51 mg/dL Low 0.60 - 1.20 mg/dL [facility] GFR/1.73 sq M.predicted CKD-EPI (S/P/Bld) [Vol rate/Area] 93 - PINF [facility] Comment on above: 2020 CKD EPI Equatio n using Creatinine without Race Comment: Estimated glomerular filtration rate (eGFR) is calculated without a race coefficient. Values should be interpreted in the context of the patient's full clinical presentation. Reference: 1. Raul C, Adalgisa M, Elizabeth MITCHELL, et al.. A Unifying Approach for GFR Estimation: Recommendations of the NKF-ASN Task Force on Reassessing the Inclusion of Race in Diagnosing Kidney Disease. [place] Journal of Kidney Diseases 2021;79(2):268-88.e1. 2. N Engl J Med 2020 Vol. 385 Issue 19 Pages 4125-9128 Glucose [Mass/Vol] 94 mg/dL 74 - 109 mg/dL [facility] Interpretation and review of laboratory results Abnormal [facility] Potassium [Moles/Vol] 4.1 mmol/L 3.5 - 5.0 mmol/L [facility] Sodium [Moles/Vol] 140 mmol/L 136 - 145 mmol/L [facility] Urea nitrogen [Mass/Vol] 6 mg/dL Low 7 - 25 mg/dL [facility] CBC WITH DIFFERENTIALOrdered By: Radha Raymundo on 01-30-2025 Basophils (Bld) [#/Vol] 0.05 10*3/uL 0.00 - 0.20 K/uL [facility] Basophils/100 WBC (Bld) 0.5 % NINF - 1.9 % [facility] Eosinophils (Bld) [#/Vol] 0.13 10*3/uL 0.00 - 0.70 K/uL [facility] Eosinophils/100 WBC (Bld) 1.4 % 0.1 - 4.0 % [facility] Erythrocyte distribution width (RBC) [Ratio] 20.9 % High 11.5 - 14.5 % [facility] Hematocrit (Bld) [Volume fraction] 24.2 % Low 36.0 - 46.0 % [facility] Hemoglobin (Bld) [Mass/Vol] 7.9 g/dL Low 12.0 - 15.0 g/dL [facility] Interpretation and review of laboratory results Abnormal [facility] Lymphocytes (Bld) [#/Vol] 1.02 10*3/uL 1.00 - 4.80 K/uL [facility] Lymphocytes/100 WBC (Bld) 10.6 % Low 24.0 - 44.0 % [facility] MCH (RBC) [Entitic mass] 23.3 pg Low 26.0 - 34.0 pg [facility] MCHC (RBC) [Mass/Vol] 32.7 g/dL 32.0 - 35.9 g/dL [facility] MCV (RBC) [Entitic vol] 71 fL Low 80 - 100 fL [facility] Monocytes (Bld) [#/Vol] 1.42 10*3/uL High 0.20 - 1.00 K/uL [facility] Monocytes/100 WBC (Bld) 14.8 % High 2.0 - 11.0 % [facility] Neutrophils (Bld) [#/Vol] 6.94 10*3/uL 1.50 - 8.00 K/uL [facility] Neutrophils/100 WBC (Bld) 72.6 % 31.0 - 76.0 % [facility] Platelet mean volume (Bld) [Entitic vol] 8.5 fL 7.5 - 11.2 fL [facility] Platelets (Bld) [#/Vol] 206 10*3/uL 150 - 400 K/uL [facility] RBC (Bld) [#/Vol] 3.39 10*6/uL Low [facility] WBC (Bld) [#/Vol] 9.6 10*3/uL 4.5 - 11.5 K/uL [facility] CBC WITH DIFFERENTIALon 01-08 Basophils (Bld) [#/Vol] 0.05 10*3/uL Normal 0.00-0.20 [facility] Comment on above: Performed By: #### DAMON Hamilton #### [facility] [address] [place] [address], [id number] Basophils/100 WBC (Bld) 0.5 % Normal <=1.9 [facility] Comment on above: Performed By: #### DAMON Hamilton #### [facility] [address] [place] [address], Eosinophils (Bld) [#/Vol] 0.13 10*3/uL Normal 0.00-0.70 [facility] Comment on above: Performed By: #### Aruna Olivas, CH8 #### [facility] [address] [place] [address], Eosinophils/100 WBC (Bld) 1.4 % Normal 0.1-4.0 [facility] Comment on above: Performed By: #### Aruna Olivas, CH8 #### [facility] [address] [place] [address], Erythrocyte distribution width (RBC) [Ratio] 20.9 % High 11.5-14.5 [facility] Comment on above: Performed By: #### Aruna Olivas, CH8 #### [facility] [address] [place] [address], Hematocrit (Bld) [Volume fraction] 24.2 % Low 36.0-46.0 [facility] Comment on above: Performed By: #### Aruna Olivas, CH8 #### [facility] [address] [place] [address], Hemoglobin (Bld) [Mass/Vol] 7.9 g/dL Low 12.0-15.0 [facility] Comment on above: Performed By: #### Aruna Olivas, CH8 #### [facility] [address] [place] [address], Lymphocytes (Bld) [#/Vol] 1.02 10*3/uL Normal 1.00-4.80 [facility] Comment on above: Performed By: #### Aruna Olivas, CH8 #### [facility] [address] [place] [address], Lymphocytes/100 WBC (Bld) 10.6 % Low 24.0-44.0 [facility] Comment on above: Performed By: #### Aruna Olivas, CH8 #### [facility] [address] [place] [address], MCH (RBC) [Entitic mass] 23.3 pg Low 26.0-34.0 [facility] Comment on above: Performed By: #### Aruna Olivas, CH8 #### S PATHOLOGY LABORATORY [address] [place], [place], MCHC (RBC) [Mass/Vol] 32.7 g/dL Normal 32.0-35.9 [facility] Comment on above: Performed By: #### Aruna Olivas, CH8 #### S PATHOLOGY LABORATORY [address] [place], [place], MCV (RBC) [Entitic vol] 71 fL Low 80-100 [facility] Comment on above: Performed By: #### Aruna Olivas, CH8 #### S PATHOLOGY LABORATORY [address] [place], [place], Monocytes (Bld) [#/Vol] 1.42 10*3/uL High 0.20-1.00 [facility] Comment on above: Performed By: #### Aruna Olivas, CH8 #### [facility] [address] [place], Monocytes/100 WBC (Bld) 14.8 % High 2.0-11.0 [facility] Comment on above: Performed By: #### Aruna Olivas, CH8 #### [facility] [address] [place], [place], Neutrophils (Bld) [#/Vol] 6.94 10*3/uL Normal 1.50-8.00 [facility] Comment on above: Performed By: #### Aruna Olivas, CH8 #### [facility] [address] [place], Neutrophils/100 WBC (Bld) 72.6 % Normal 31.0-76.0 [facility] Comment on above: Performed By: #### Aruna Olivas, CH8 #### S PATHOLOGY LABORATORY [address] [place], Platelet mean volume (Bld) [Entitic vol] 8.5 fL Normal 7.5-11.2 [facility] Comment on above: Performed By: #### Aruna Olivas, CH8 #### S PATHOLOGY LABORATORY [address] [place], Platelets (Bld) [#/Vol] 206 10*3/uL Normal 150-400 The [facility] Comment on above: Performed By: #### Aruna Olivas, CH8 #### S PATHOLOGY LABORATORY [address] [place], [place], RBC (Bld) [#/Vol] 3.39 10*6/uL Low 4.00-5.20 The [facility] Comment on above: Performed By: #### Aruna Olivas, RODRIGUEZ8 #### S PATHOLOGY LABORATORY [address] [place], [place], WBC (Bld) [#/Vol] 9.6 10*3/uL Normal 4.5-11.5 The [facility] Comment on above: Performed By: #### Aruna Olivas, CH8 #### [facility] [address] [place], [place], MAGNESIUMon 01-30-2025 Interpretation and review of laboratory results Normal [facility] Magnesium [Mass/Vol] 1.9 mg/dL 1.9 - 2 .7 mg/dL [facility] Magnesium [Mass/Vol] 1.9 mg/dL Normal 1.9-2.7 The [facility] Comment on above: Performed By: #### Aruna Olivas, CH8 ####S PATHOLOGY [id number] [place], [place], MANUAL DIFF AND MORPHon 01-08 Carlos cells LM Ql (Bld) Few [facility] Cells Counted Total (Bld) [#] [facility] Microcytes Ql (Bld) Slight [facility] Ovalocytes LM Ql (Bld) Few [facility] RBC.hypochromic/100 RBC Auto (Bld) Moderate [facility] Schistocytes LM Ql (Bld) Few [facility] CARLOS CELLS Few Normal [facility] Comment on above: Performed By: #### Aruna Olivas, CH8 #### [facility] [address] [place], [place], CELLS COUNTED TOTAL # IN BLOOD Normal The [facility] Comment on above: Performed By: #### Aruna Olivas, CH8 #### S PATHOLOGY LABORATORY [address] [place], [place], FRAGMENTED RBC Few Normal The [facility] Comment on above: Performed By: #### Aruna Deisy, CH8 #### S PATHOLOGY LABORATORY [address] [place] [address], HYPOCHROMASIA Moderate Normal [facility] Comment on above: Performed By: #### M Deisy, CH8 #### S PATHOLOGY LABORATORY [address] [place] [address], MICROCYTOSIS Slight Normal [facility] Comment on above: Performed By: #### Aruna Olivas, CH8 #### S PATHOLOGY LABORATORY [address] [place] [address], OVALOCYTES Few Normal [facility] Comment on above: Performed By: #### Aruna Olivas, CH8 #### [facility] [address] [place] [address], No Panel Informationon 01-30 [facility] Assessment AND Plan Noteon 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 s/p 2u pRBCs. 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 stable. 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 Whittaker or until Eliquis restarted. Normal [facility] [facility] BASIC METABOLIC PANELon 01-08 Anion gap [Moles/Vol] 9 mmol/L Low 10-20 [facility] Comment on above: Performed By: #### M Deisy, CH8 #### [facility] [address] [place] [address], Calcium [Mass/Vol] 7.9 mg/dL Low 8.6-10.3 [facility] Comment on above: Performed By: #### Aruna Olivas, CH8 #### S PATHOLOGY LABORATORY [address] [place] [address], Chloride [Moles/Vol] 112 mmol/L High 98-107 [facility] Comment on above: Performed By: #### Aruna Olivas, RODRIGUEZ8 #### S PATHOLOGY LABORATORY [address] [place], CO2 [Moles/Vol] 24 mmol/L Normal 21-31 [facility] Comment on above: Performed By: #### Aruna Olivas, RODRIGUEZ8 #### S PATHOLOGY LABORATORY [address] [place], Creatinine [Mass/Vol] 0.52 mg/dL Low 0.60-1.20 [facility] Comment on above: Performed By: #### Aruna Olivas, RODRIGUEZ8 #### S PATHOLOGY LABORATORY [address] [place] [address], ESTIMATED GFR (CKD-EPI) 93 mL/min/1.73sqm Normal >=60 [facility] Comment on above: Result Comment: 2020 CKD EPI Equation using Creatinine without Race Comment: Estimated glomerular filtration rate (eGFR) is calculated without a race coefficient. Values should be interpreted in the context of the patient's full clinical presentation. Reference: 1. Raul C, Adalgisa M, Elizabeth MITCHELL, et al.. A Unifying Approach for GFR Estimation: Recommendations of the NKF-ASN Task Force on Reassessing the Inclusion of Race in Diagnosing Kidney Disease. [place] Journal of Kidney Diseases 2021;79(2):268-88.e1. 2. N Engl J Med 1 Vol. 385 Issue 19 Pages 8433-9102 Performed By: #### Aruna Olivas, RODRIGUEZ8 #### S PATHOLOGY LABORATORY [address] [place], [place], Glucose [Mass/Vol] 105 mg/dL Normal 74-109 [facility] Comment on above: Performed By: #### Aruna Olivas CH8 #### S PATHOLOGY LABORATORY [address] [place] [address], Potassium [Moles/Vol] 3.4 mmol/L Low 3.5-5.0 [facility] Comment on above: Performed By: #### Aruna Olivas, CH8 #### S PATHOLOGY LABORATORY [address] [place], Sodium [Moles/Vol] 142 mmol/L Normal 136-145 [facility] Comment on above: Performed By: #### Aruna Olivas, RODRIGUEZ8 #### S PATHOLOGY LABORATORY [address] [place], Urea nitrogen [Mass/Vol] 5 mg/dL Low 7-25 [facility] Comment on above: Performed By: #### Aruna Olivas, RODRIUGEZ8 #### S PATHOLOGY LABORATORY [address] [place], [place], Basic metabolic 2000 panelon 01-29-2025 Anion gap [Moles/Vol] 9 mmol/L Low 10 - 20 [facility] Calcium [Mass/Vol] 7.9 mg/dL Low 8.6 - 10. 3 mg/dL [facility] Chloride [Moles/Vol] 112 mmol/L High 98 - 10 7 mmol/L [facility] CO2 [Moles/Vol] 24 mmol/L 21 - 31 mmol/L [facility] Creatinine [Mass/Vol] 0.52 mg/dL Low 0.60 - 1.20 mg/dL [facility] GFR/1.73 sq M.predicted CKD-EPI (S/P/Bld) [Vol rate/Area] 93 - PINF [facility] Comment on above: 2020 CKD EPI Equatio n using Creatinine without Race Comment: Estimated glomerular filtration rate (eGFR) is calculated without a race coefficient. Values should be interpreted in the context of the patient's full clinical presentation. Reference: 1. Raul C, Adalgisa M, Elizabeth DC, et al.. A Unifying Approach for GFR Estimation: Recommendations of the NKF-ASN Task Force on Reassessing the Inclusion of Race in Diagnosing Kidney Disease. [place] Journal of Kidney Diseases 202;79(2):268-88.e1. 2. N Engl J Med 1 Vol. 385 Issue 19 Pages 0494-5628 Glucose [Mass/Vol] 105 mg/dL 74 - 109 mg/dL [facility] Interpretation and review of laboratory results Abnormal [facility] Potassium [Moles/Vol] 3.4 mmol/L Low 3.5 - 5.0 mmol/L [facility] Sodium [Moles/Vol] 142 mmol/L 136 - 145 mmol/L [facility] Urea nitrogen [Mass/Vol] 5 mg/dL Low 7 - 25 mg/dL [facility] CBC WITH DIFFERENTIALOrdered By: Sayra Dudley on 01-29-2025 Basophils (Bld) [#/Vol] 0.05 10*3/uL 0.00 - 0.20 K/uL [facility] Basophils/100 WBC (Bld) 0.7 % NINF - 1.9 % [facility] Eosinophils (Bld) [#/Vol] 0.19 10*3/uL 0.00 - 0.70 K/uL [facility] Eosinophils/100 WBC (Bld) 2.5 % 0.1 - 4.0 % [facility] Erythrocyte distribution width (RBC) [Ratio] 20.9 % High 11.5 - 14.5 % [facility] Hematocrit (Bld) [Volume fraction] 24.9 % Low 36.0 - 46.0 % [facility] Hemoglobin (Bld) [Mass/Vol] 7.8 g/dL Low 12.0 - 15.0 g/dL [facility] Interpretation and review of laboratory results Abnormal [facility] Lymphocytes (Bld) [#/Vol] 1 10*3/uL 1.00 - 4.80 K/uL [facility] Lymphocytes/100 WBC (Bld) 12.8 % Low 24.0 - 44.0 % [facility] MCH (RBC) [Entitic mass] 23.2 pg Low 26.0 - 34.0 pg [facility] MCHC (RBC) [Mass/Vol] 31.4 g/dL Low 32.0 - 35.9 g/dL [facility] MCV (RBC) [Entitic vol] 74 fL Low 80 - 100 fL [facility] Monocytes (Bld) [#/Vol] 1.14 10*3/uL High 0.20 - 1.00 K/uL [facility] Monocytes/100 WBC (Bld) 14.6 % High 2.0 - 11.0 % [facility] Neutrophils (Bld) [#/Vol] 5.44 10*3/uL 1.50 - 8.00 K/uL [facility] Neutrophils/100 WBC (Bld) 69.5 % 31.0 - 76.0 % [facility] Platelet mean volume (Bld) [Entitic vol] 8.2 fL 7.5 - 11.2 fL [facility] Platelets (Bld) [#/Vol] 174 10*3/uL 150 - 400 K/uL [facility] RBC (Bld) [#/Vol] 3.36 10*6/uL Low [facility] WBC (Bld) [#/Vol] 7.8 10*3/uL 4.5 - 11.5 K/uL [facility] CBC WITH DIFFERENTIALon 01-08-2024 Basophils (Bld) [#/Vol] 0.05 10*3/uL Normal 0.00-0.20 [facility] Comment on above: Performed By: #### Aruna Olivas, CH8 #### [facility] [address] [place] [address], Basophils/100 WBC (Bld) 0.7 % Normal <=1.9 [facility] Comment on above: Performed By: #### Aruna Olivas, CH8 #### [facility] [address] [place] [address], Eosinophils (Bld) [#/Vol] 0.19 10*3/uL Normal 0.00-0.70 [facility] Comment on above: Performed By: #### Aruna Olivas, CH8 #### [facility] [address] [place] [address], Eosinophils/100 WBC (Bld) 2.5 % Normal 0.1-4.0 [facility] Comment on above: Performed By: #### Aruna Olivas, CH8 #### S PATHOLOGY LABORATORY [address] [place], [place], Erythrocyte distribution width (RBC) [Ratio] 20.9 % High 11.5-14.5 [facility] Comment on above: Performed By: #### Aruna Olivas, CH8 #### S PATHOLOGY LABORATORY [address] [place] [address], Hematocrit (Bld) [Volume fraction] 24.9 % Low 36.0-46.0 [facility] Comment on above: Performed By: #### Aruna Olivas, CH8 #### [facility] [address] [place] [address], Hemoglobin (Bld) [Mass/Vol] 7.8 g/dL Low 12.0-15.0 [facility] Comment on above: Performed By: #### Aruna Olivas, CH8 #### [facility] [address] [place] [address], Lymphocytes (Bld) [#/Vol] 1.00 10*3/uL Normal 1.00-4.80 [facility] Comment on above: Performed By: #### Aruna Olivas, CH8 #### [facility] [address] [place], [place], Lymphocytes/100 WBC (Bld) 12.8 % Low 24.0-44.0 [facility] Comment on above: Performed By: #### Aruna Olivas, CH8 #### [facility] [address] [place] [address], MCH (RBC) [Entitic mass] 23.2 pg Low 26.0-34.0 [facility] Comment on above: Performed By: #### Aruna Olivas, CH8 #### [facility] [address] [place] [address], MCHC (RBC) [Mass/Vol] 31.4 g/dL Low 32.0-35.9 The [facility] Comment on above: Performed By: #### Aruna Olivas, CH8 #### [facility] [address] [place] [address], MCV (RBC) [Entitic vol] 74 fL Low 80-100 The [facility] Comment on above: Performed By: #### Aruna Olivas, CH8 #### [facility] [address] [place] [address], Monocytes (Bld) [#/Vol] 1.14 10*3/uL High 0.20-1.00 [facility] Comment on above: Performed By: #### Aruna Olivas, CH8 #### [facility] [address] [place] [address], Monocytes/100 WBC (Bld) 14.6 % High 2.0-11.0 [facility] Comment on above: Performed By: #### Aruna Olivas, CH8 #### [facility] [address] [place] [address], Neutrophils (Bld) [#/Vol] 5.44 10*3/uL Normal 1.50-8.00 [facility] Comment on above: Performed By: ###Roger Olivas, CH8 #### [facility] [address] [place] [address], Neutrophils/100 WBC (Bld) 69.5 % Normal 31.0-76.0 [facility] Comment on above: Performed By: ###Roger Olivas, CH8 #### [facility] [address] [place] [address], Platelet mean volume (Bld) [Entitic vol] 8.2 fL Normal 7.5-11.2 [facility] Comment on above: Performed By: ###Roger Olivas, CH8 #### [facility] [address] [place] [address], Platelets (Bld) [#/Vol] 174 10*3/uL Normal 150-400 [facility] Comment on above: Performed By: ###Roger Olivas, CH8 #### [facility] [address] [place] [address], RBC (Bld) [#/Vol] 3.36 10*6/uL Low 4.00-5.20 [facility] Comment on above: Performed By: ###Roger Olivas, CH8 #### [facility] [address] [place] [address], WBC (Bld) [#/Vol] 7.8 10*3/uL Normal 4.5-11.5 [facility] Comment on above: Performed By: ###Roger Olivas, CH8 #### [facility] [address] [place] [address], MAGNESIUMon 01-29-2025 Interpretation and review of laboratory results Normal [facility] Magnesium [Mass/Vol] 1.9 mg/dL 1.9 - 2 .7 mg/dL [facility] Magnesium [Mass/Vol] 1.9 mg/dL Normal 1.9-2.7 [facility] Comment on above: Performed By: #### Aruna Olivas, CH8 #### [facility] [address] [place] [address], MANUAL DIFF AND MORPHon 01-08 Acanthocytes LM Ql (Bld) Moderate [facility] Cells Counted Total (Bld) [#] [facility] Microcytes Ql (Bld) Slight [facility] Ovalocytes LM Ql (Bld) Few [facility] RBC.hypochromic/100 RBC Auto (Bld) Moderate [facility] Schistocytes LM Ql (Bld) Few [facility] ACANTHOCYTES Moderate Normal [facility] Comment on above: Performed By: #### Aruna Olivas, CH8 #### [facility] [address] [place] [address], CELLS COUNTED TOTAL # IN BLOOD Normal The [facility] Comment on above: Performed By: #### Aruna Olivas, CH8 #### [facility] [address] [place] [address], FRAGMENTED RBC Few Normal The [facility] Comment on above: Performed By: #### Aruna Olivas, CH8 #### [facility] [address] [place] [address], HYPOCHROMASIA Moderate Normal [facility] Comment on above: Performed By: #### Aruna Olivas, CH8 #### S [facility] [address] [place] [address], MICROCYTOSIS Slight Normal [facility] Comment on above: Performed By: #### Aruna Olivas, CH8 #### S [facility] [address] [place] [address], OVALOCYTES Few Normal The [facility] Comment on above: Performed By: #### Aruna Olivas, CH8 #### S [facility] LAB[facility]AT[facility] [address] [place] [address], No Panel InformationOrdered By: Sayra Dudley on 01-29-2025 [facility] No Panel Informationon 01-29 [facility] Transfer 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 TRANSFER NOTE Patient: Ms. 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 Patient who currently resides at [facility] ([facility]) where she was found to have significant bright red blood in her stool following multiple episodes of diarrhea on the morning of 01/24. They were transferred to the [facility] ED later that day for further evaluation. On presentation BP was 146/83, HR 104. CBC notable for drop og Hb from 11 3 months ago to 8.2. Repeated CBC showed a further drop of Hgb to 6.2. 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 Patient admitted directly to SDU and transfused w/ 2 units of pRBC prior to transfer. On presentation to the floors, patient is vitally stable and in no acute distress. Required straight catheterization and gamez insertion for urinary retention 01/28 s/p Colonoscopy showed one rectal polyp (biopsied) and Int hemorrhoids likely cause of BRBPR. Recommend repeat colo if abnormal path results and hemorrhoid care. Pt s/p IR guided coil embolization of hepatic artery aneurysm 01/28/2025. Recommend f/u angiography in 3 months, restarting aspirin for 3 months or until Eliquis restarted. 01/29 Gamez removed, for voiding trial. Pt's condition improving and she deems stable to be transferred to the general floors. TO DO: [] Daily CBC [] Protonix 40 mg PO daily [] Hemorrhoid care [] F/u pathology (polyp) if abnormal repeat Colonoscopy needed [] Per IR: can be on both aspirin and Eliquis whenever you decide to restart Eliquis, but if the risk of bleeding is too high just Eliquis would be also appropriate [] Atorvastatin 10 mg [] Bowel Regimen [] Aspirin 81 mg [] Voiding trial Disposition: [facility] facility Inpatient CONSULTS: IP GASTROENTEROLOGY CONSULT Outpatient f/u: PCP F/u angiography in 3 months PROBLEM LIST: Rectal bleed s/p colonoscopy 01/27 Hepatic artery aneurysm s/p coiling 01/28 Nelda James DO Family Medicine, PGY2 Pager: [phone] Normal [facility] BASIC METABOLIC PANELon 08- Anion gap [Moles/Vol] 11 mmol/L Normal 10-20 [facility] Comment on above: Performed By: #### C H8, MG ####[facility] [id number] [place], [place], Calcium [Mass/Vol] 7.8 mg/dL Low 8.6-10.3 [facility] Comment on above: Performed By: #### C H8, MG ####[facility] [id number] [place], [place], Chloride [Moles/Vol] 113 mmol/L High 98-107 [facility] Comment on above: Performed By: #### C H8, MG ####[facility] [id number] [place], [place], CO2 [Moles/Vol] 21 mmol/L Normal 21-31 [facility] Comment on above: Performed By: #### C H8, MG ####[facility] [id number] [place], [place], Creatinine [Mass/Vol] 0.56 mg/dL Low 0.60-1.20 [facility] Comment on above: Performed By: #### C H8, MG ####[facility] [id number] [place], [place], ESTIMATED GFR (CKD-EPI) 91 mL/min/1.73sqm Normal >=60 [facility] Comment on above: Result Comment: 2020 CKD EPI Equation using Creatinine without Race Comment: Estimated glomerular filtration rate (eGFR) is calculated without a race coefficient. Values should be interpreted in the context of the patient's full clinical presentation. Reference: 1. Raul C, Adalgisa M, Elizabeth MITCHELL, et al.. A Unifying Approach for GFR Estimation: Recommendations of the NKF-ASN Task Force on Reassessing the Inclusion of Race in Diagnosing Kidney Disease. [place] Journal of Kidney Diseases 2021;79(2):268-88.e1. 2. N Engl J Med 1 Vol. 385 Issue 19 Pages 3270-6717 Performed By: #### C H8, MG ####[facility] [id number] [place], [place], Glucose [Mass/Vol] 135 mg/dL High 74-109 [facility] Comment on above: Performed By: #### C H8, MG ####[facility] [id number] [place], [place], Potassium [Moles/Vol] 3.2 mmol/L Low 3.5-5.0 [facility] Comment on above: Performed By: #### C H8, MG ####[facility] [id number] [place], Sodium [Moles/Vol] 142 mmol/L Normal 136-145 [facility] Comment on above: Performed By: #### C H8, MG ####[facility] [id number] [place], Urea nitrogen [Mass/Vol] 7 mg/dL Normal 7-25 [facility] Comment on above: Performed By: #### C H8, MG ####[facility] [id number] [place], [place], Basic metabolic 2000 panelon 01-28-2025 Anion gap [Moles/Vol] 11 mmol/L 10 - 20 Met [facility] Calcium [Mass/Vol] 7.8 mg/dL Low 8.6 - 10. 3 mg/dL [facility] Chloride [Moles/Vol] 113 mmol/L High 98 - 10 7 mmol/L [facility] CO2 [Moles/Vol] 21 mmol/L 21 - 31 mmol/L [facility] Creatinine [Mass/Vol] 0.56 mg/dL Low 0.60 - 1.20 mg/dL [facility] GFR/1.73 sq M.predicted CKD-EPI (S/P/Bld) [Vol rate/Area] 91 - PINF [facility] Comment on above: 2020 CKD EPI Equatio n using Creatinine without Race Comment: Estimated glomerular filtration rate (eGFR) is calculated without a race coefficient. Values should be interpreted in the context of the patient's full clinical presentation. Reference: 1. Raul C, Adalgisa M, Elizabeth MITCHELL, et al.. A Unifying Approach for GFR Estimation: Recommendations of the NKF-ASN Task Force on Reassessing the Inclusion of Race in Diagnosing Kidney Disease. [place] Journal of Kidney Diseases 2021;79(2):268-88.e1. 2. N Engl J Med 2020 Vol. 385 Issue 19 Pages 3403-7566 Glucose [Mass/Vol] 135 mg/dL High 74 - 109 mg/dL [facility] Interpretation and review of laboratory results Abnormal [facility] Potassium [Moles/Vol] 3.2 mmol/L Low 3.5 - 5.0 mmol/L [facility] Sodium [Moles/Vol] 142 mmol/L 136 - 145 mmol/L [facility] Urea nitrogen [Mass/Vol] 7 mg/dL 7 - 25 mg/dL [facility] CBC WITH DIFFERENTIALon 01-08 Basophils (Bld) [#/Vol] 0.1 10*3/uL 0.00 - 0.20 K/uL [facility] Basophils/100 WBC (Bld) 1.3 % NINF - 1.9 % [facility] Eosinophils (Bld) [#/Vol] 0.22 10*3/uL 0.00 - 0.70 K/uL [facility] Eosinophils/100 WBC (Bld) 2.8 % 0.1 - 4.0 % [facility] Erythrocyte distribution width (RBC) [Ratio] 20.5 % High 11.5 - 14.5 % [facility] Hematocrit (Bld) [Volume fraction] 23.7 % Low 36.0 - 46.0 % [facility] Hemoglobin (Bld) [Mass/Vol] 7.4 g/dL Low 12.0 - 15.0 g/dL [facility] Interpretation and review of laboratory results Abnormal [facility] Lymphocytes (Bld) [#/Vol] 0.92 10*3/uL Low 1.00 - 4.80 K/uL [facility] Lymphocytes/100 WBC (Bld) 11.5 % Low 24.0 - 44.0 % [facility] MCH (RBC) [Entitic mass] 23.2 pg Low 26.0 - 34.0 pg [facility] MCHC (RBC) [Mass/Vol] 31.3 g/dL Low 32.0 - 35.9 g/dL [facility] MCV (RBC) [Entitic vol] 74 fL Low 80 - 100 fL [facility] Monocytes (Bld) [#/Vol] 1.05 10*3/uL High 0.20 - 1.00 K/uL [facility] Monocytes/100 WBC (Bld) 13.1 % High 2.0 - 11.0 % [facility] Neutrophils (Bld) [#/Vol] 5.71 10*3/uL 1.50 - 8.00 K/uL [facility] Neutrophils/100 WBC (Bld) 71.3 % 31.0 - 76.0 % [facility] Platelet mean volume (Bld) [Entitic vol] 8.2 fL 7.5 - 11.2 fL [facility] Platelets (Bld) [#/Vol] 177 10*3/uL 150 - 400 K/uL [facility] RBC (Bld) [#/Vol] 3.21 10*6/uL Low [facility] WBC (Bld) [#/Vol] 8 10*3/uL 4.5 - 11.5 K/uL [facility] Basophils (Bld) [#/Vol] 0.10 10*3/uL Normal 0.00-0.20 The [facility] Comment on above: Performed By: ###FREDERICK BRUNSON ####S PATHOLOGY [id number] [place], Basophils/100 WBC (Bld) 1.3 % Normal <=1.9 [facility] Comment on above: Performed By: #### FREDERICK YOUNG ####S PATHOLOGY [id number] [place], Eosinophils (Bld) [#/Vol] 0.22 10*3/uL Normal 0.00-0.70 [facility] Comment on above: Performed By: ###FREDERICK BRUNSON ####S PATHOLOGY [id number] [place], Eosinophils/100 WBC (Bld) 2.8 % Normal 0.1-4.0 [facility] Comment on above: Performed By: #### FREDERICK YOUNG ####[facility] [id number] [place], Erythrocyte distribution width (RBC) [Ratio] 20.5 % High 11.5-14.5 [facility] Comment on above: Performed By: #### FREDERICK YOUNG ####[facility] [id number] [place], Hematocrit (Bld) [Volume fraction] 23.7 % Low 36.0-46.0 [facility] Comment on above: Performed By: #### FREDERICK YOUNG ####[facility] [id number] [place], Hemoglobin (Bld) [Mass/Vol] 7.4 g/dL Low 12.0-15.0 [facility] Comment on above: Performed By: ###FREDERICK BRUNSON ####[facility] [id number] [place] [address], Lymphocytes (Bld) [#/Vol] 0.92 10*3/uL Low 1.00-4.80 [facility] Comment on above: Performed By: #### FREDERICK YOUNG ####[facility] [id number] [place], Lymphocytes/100 WBC (Bld) 11.5 % Low 24.0-44.0 [facility] Comment on above: Performed By: ###FREDERICK BRUNSON ####[facility] [id number] [place], MCH (RBC) [Entitic mass] 23.2 pg Low 26.0-34.0 [facility] Comment on above: Performed By: #### FREDERICK YOUNG ####[facility] [id number] [place], MCHC (RBC) [Mass/Vol] 31.3 g/dL Low 32.0-35.9 [facility] Comment on above: Performed By: ###FREDERICK BRUNSON ####[facility] [id number] [place], MCV (RBC) [Entitic vol] 74 fL Low 80-100 [facility] Comment on above: Performed By: #### FREDERICK YOUNG ####[facility] [id number] [place], Monocytes (Bld) [#/Vol] 1.05 10*3/uL High 0.20-1.00 [facility] Comment on above: Performed By: #### FREDERICK YOUNG ####S PATHOLOGY [id number] [place], Monocytes/100 WBC (Bld) 13.1 % High 2.0-11.0 [facility] Comment on above: Performed By: #### FREDERICK YOUNG ####S PATHOLOGY [id number] [place], Neutrophils (Bld) [#/Vol] 5.71 10*3/uL Normal 1.50-8.00 [facility] Comment on above: Performed By: ###FREDERICK BRUNSON ####S PATHOLOGY [id number] [place], Neutrophils/100 WBC (Bld) 71.3 % Normal 31.0-76.0 [facility] Comment on above: Performed By: ###FREDERICK BRUNSON ####S PATHOLOGY [id number] [place], Platelet mean volume (Bld) [Entitic vol] 8.2 fL Normal 7.5-11.2 [facility] Comment on above: Performed By: ###FREDERICK BRUNSON ####S PATHOLOGY [id number] [place], Platelets (Bld) [#/Vol] 177 10*3/uL Normal 150-400 [facility] Comment on above: Performed By: ###FREDERICK BRUNSON ####S PATHOLOGY [id number] [place], RBC (Bld) [#/Vol] 3.21 10*6/uL Low 4.00-5.20 [facility] Comment on above: Performed By: #### C FREDERICK ALMEIDA ####S PATHOLOGY [id number] [place], WBC (Bld) [#/Vol] 8.0 10*3/uL Normal 4.5-11.5 [facility] Comment on above: Performed By: #### FREDERICK YOUNG ####[facility] [id number] [place], [place], Care Plan Noteon 01-28-2025 Rd Mechanical Engineer Authentication Interface Message Text Spoke with Pt's son and daughter in law. Aliza and Magi Updated them that she had her colonoscopy done and multiple polyps were seen. 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 And we will keep them updated as to what IR decides. Family verbalized understanding. 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 High risk nutrition diagnosis: No - no points Past Medical History: Medical History[1] Food Allergies: none Labs: LFT's (last 3 years, up to 8 values) 01/25/2025 1:22 PM T Prot 5.1 Albumin 3.4 D Bili 0.42 T Bili 2.5 Alk Phos 52 ALT 7 AST 15 Albumin: Greater than 3 - no points Skin Integrity: No pressure ulcers at this time - no points Fluid Accumulation: +1 - +2 Pitting edema - 2 points Diet Order: Regular % PO Intake: 75-100% Intake Difficulties: None - 0 points 5' 9" 139.99 lbs UBW: same per pt BODY MASS INDEX Kg Lbs BMI 01/25/2025 12:05 PM 61.3 kg 135 lb 2.3 oz 19.95 kg/m2 01/26/2025 6:00 AM 60.2 kg 132 lb 11.5 oz 19.59 kg/m2 01/27/2025 12:00 AM 60.8 kg 134 lb 0.6 oz 19.79 kg/m2 01/28/2025 7:00 AM 63.5 kg 139 lb 15.9 oz 20.66 kg/m2 BMI: 20.67 BMI Screening value: 18.5 to 20.9 - 0 points % Weight Loss: none Weight Loss Screening Value: Not significant - 0 points Education: No nutrition education indicated at this time. Comments: Pt tolerating diet well wihout any issues Number of Points: 2 Nutritional Plan of Care: Less than or equal to 6 points: At this time, patient is at low nutrition risk. DTR to provide routine follow up. Will continue to follow, Ava Hays Day Care Worker Pager#[phone] Time spent on patient care: 15 minutes [1] No past medical history on file. Normal [facility] Discharge Planning Noteon Rd Mechanical Engineer Authentication Interface Message Text SW/CM aware that patient meets criteria for SNF. Met with pt son via phone call discuss dispo. Patient open and agreeable to SNF placement. CM/SW provided pt son the quality and resource use measure data from available post-acute (PAC) providers, that best align with the patient's treatment goals and preferences from the medicare.gov compare site for SNF. [place] of Choice was provided to the patient/patient guest services representative. For SNF: RN/MD to complete [employer]. Signature page placed on patient's chart for MD signature. [id number] initiated in HENS Pt will require a pre-cert/LOC. SW/CM will follow up for choices. Referral sent to [facility] which is the sister SNF for [facility]dy JON[facility]. CM will continue to follow Breanna Wilder MSN, RN Inpatient Forester [employer] [id number]/7W Cell [phone] Desk [phone] Normal [facility] MAGNESIUMon 01-28-2025 Interpretation and review of laboratory results Normal [facility] Magnesium [Mass/Vol] 1.9 mg/dL 1.9 - 2 .7 mg/dL [facility] Magnesium [Mass/Vol] 1.9 mg/dL Normal 1.9-2.7 [facility] Comment on above: Performed By: #### C H8, MG ####[facility] [id number] [place], MANUAL DIFF AND MORPHon 01-08 Acanthocytes LM Ql (Bld) Few [facility] Carlos cells LM Ql (Bld) Few [facility] Cells Counted Total (Bld) [#] [facility] Microcytes Ql (Bld) Slight [facility] Ovalocytes LM Ql (Bld) Few [facility] RBC.hypochromic/100 RBC Auto (Bld) Moderate [facility] Schistocytes LM Ql (Bld) Few [facility] ACANTHOCYTES Few Normal The [facility] Comment on above: Performed By: #### FREDERICK YOUNG ####[facility] [id number] [place], [place], CARLOS CELLS Few Normal [facility] Comment on above: Performed By: #### FREDERICK YOUNG ####[facility] [id number] [place] [address], CELLS COUNTED TOTAL # IN BLOOD Normal [facility] Comment on above: Performed By: #### FREDERICK YOUNG ####[facility] [id number] [place], FRAGMENTED RBC Few Normal [facility] Comment on above: Performed By: #### FREDERICK YOUNG ####[facility] [id number] [place], HYPOCHROMASIA Moderate Normal [facility] Comment on above: Performed By: #### FREDERICK YOUNG ####[facility] [id number] [place], MICROCYTOSIS Slight Normal [facility] Comment on above: Performed By: #### FREDERICK YOUNG ####[facility] [id number] [place], OVALOCYTES Few Normal [facility] Comment on above: Performed By: #### FREDERICK YOUNG ####[facility] [id number] [place], No Panel Informationon 01-28 [facility] PROTHROMBIN TIME AND INRon 0 01-28-2025 INR Coag (PPP) [Relative time] 1.05 {INR} 0.90 - 1.10 [facility] Interpretation and review of laboratory results Normal [facility] PT Coag (PPP) [Time] 11.8 s [facility] INR Coag (PPP) [Relative time] 1.05 {INR} Normal 0.90-1.10 [facility] Comment on above: Performed By: #### M Deisy, [id number] #### [facility] [address] [place], [place], PT Coag (PPP) [Time] 11.8 s Normal 9.7-12.9 [facility] Comment on above: Performed By: #### Aruna Olivas, RODRIGUEZ8 #### S PATHOLOGY LABORATORY [address] [place], [place], Progress Noteson 01-28-2025 Rd Mechanical Engineer Authentication Interface Message Text 1200- offered patient to get up and walk and to get into chair. Patient refused. Patient family insisting patient get up and move and walk. Attempted this with patient, patient refused at this time. Patient educated importance of movement and getting up, patient also educated on NPO status. Patient aware and agreeable to NPO. Normal [facility] Rd Mechanical Engineer Authentication Interface Message Text Division of Pulmonary, Critical Care, and Sleep Medicine Stepdown Unit ATTENDING NOTE Code Status: Full Code DPOAHC/NOK: Aliza Hurtado (Son) Admission Date and Time: 01/25/2025 12:28 PM LOS: 3 days I saw and evaluated Ms. Ely Hurtado. I personally obtained javed and critical portions of the history and physical examination. I reviewed the resident's documentation and discussed the patient with the residents and the MSDU team. I agree with the resident's medical decision making as documented in their note. No Critical Care time SUBJECTIVE: Tolerated colonoscopy without difficulty yesterday. No further hematochezia. Social Connections: Not on file Tobacco Use History[1] OBJECTIVE: Allergy: Patient has no allergy information on record. Patient Vitals for the past 24 hrs: BP Temp Temp src Pulse Resp SpO2 O2 Device O2 Flow Rate (l/min) 01/28/25 1100 101/65 -- -- 88 26 96 % -- -- 01/28/25 1000 108/70 -- -- 80 19 96 % -- -- 01/28/25 0900 115/72 -- -- 85 27 96 % -- -- 01/28/25 0800 104/67 -- -- 74 15 96 % -- -- 01/28/25 0740 -- -- -- -- -- -- Room air -- 01/28/25 0700 106/65 -- -- 69 26 93 % -- -- 01/28/25 0600 112/72 -- -- 70 15 92 % Room air -- 01/28/25 0400 96/61 98.2 ???F (36.8 ???C) Axillary 73 20 94 % Room air -- 01/28/25 0200 101/61 -- -- 68 20 95 % Room air -- 01/28/25 0000 105/62 98.1 ???F (36.7 ???C) Axillary 78 21 95 % Room air -- 01/27/25 2300 104/54 -- -- 78 27 96 % Room air -- 01/27/251999 116/78 97.6 ???F (36.4 ???C) Oral 85 19 96 % Room air -- 01/27/25 1900 106/74 -- -- 78 24 100 % -- -- 01/27/25 1816 99/55 -- -- 75 13 96 % Room air -- 01/27/25 1639 -- -- -- -- -- -- Room air -- 01/27/25 1632 107/67 -- -- 67 14 98 % Room air -- 01/27/25 1627 -- -- -- 72 12 100 % Room air -- 01/27/25 1626 -- -- -- -- -- -- Room air -- 01/27/25 1624 113/72 -- -- 69 12 100 % Nasal cannula 2 01/27/25 1622 115/69 -- -- 71 11 100 % Nasal cannula 2 01/27/25 1620 112/73 -- -- 72 10 100 % Nasal cannula 2 01/27/25 1618 120/76 -- -- 71 11 100 % Nasal cannula 2 01/27/25 1616 118/74 -- -- 71 12 100 % Nasal cannula 2 01/27/25 1614 118/73 -- -- 71 12 100 % Nasal cannula 2 01/27/25 1612 113/72 -- -- 75 23 100 % Nasal cannula 2 01/27/25 1610 97/76 -- -- 77 14 100 % Nasal cannula 2 01/27/25 1608 99/70 -- -- 78 21 100 % Nasal cannula 2 01/27/25 1606 123/89 -- -- 73 12 100 % Nasal cannula 2 01/27/25 1604 114/69 -- -- 72 8 100 % Nasal cannula 2 01/27/25 1602 129/76 -- -- 58 16 100 % Nasal cannula 2 01/27/25 1600 131/79 -- -- 82 20 100 % Nasal cannula 2 01/27/25 1400 111/69 98 ???F (36.7 ???C) Oral 77 23 97 % -- -- 01/27/25 1339 116/71 97 ???F (36.1 ???C) Oral 81 18 99 % Room air -- 01/27/25 1200 110/70 98.3 ???F (36.8 ???C) Oral 83 16 99 % Room air -- Intake/Output Summary (Last 24 hours) at 01/28/2025 1126 Last data filed at 01/28/2025 0740 Gross per 24 hour Intake 590 ml Output 550 ml Net 40 ml RASS: 0 LABS: Basic Metabolic Panel 01/28/2025 01/27/2025 01/26/2025 01/25/2025 12:29 AM 5:10 AM 5:04 AM 1:22 PM Na 142 145 141 142 K 3.2 3.2 3.7 3.8 Cl 113 112 110 108 CO2 21 23 23 26 Gap 11 13 12 12 Glu 135 68 85 98 BUN 7 5 9 13 Cr 0.56 0.54 0.58 0.61 Ca 7.8 7.8 7.9 8.3 Mg 1.9 2.0 1.9 2.0 Date of last serum creatinine: 01/28/2025 Estimated Creatinine Clearance: 77.64 mL/min (A) (by C-G formula based on SCr of 0.56 mg/dL (L)). Estimated Glomerular Filtration Rate: 91.3 mL/min/1.73m2 (A) (by CKD-EPI based on SCr of 0.56 mg/dL (L)). CBC/PT/INR 01/28/2025 01/27/2025 01/26/2025 01/26/2025 01/25/2025 01/25/2025 01/25/2025 12:29 AM 5:10 AM 2:49 PM 5:04 AM 8:14 PM 1:58 PM 1:22 PM WBC 8.0 7.7 7.9 8.9 10.2 -- 7.8 RBC 3.21 3.40 3.65 3.67 4.11 -- 3.86 Hgb 7.4 7.9 8.4 8.7 9.8 -- 9.0 Hct 23.7 24.6 26.2 26.8 29.7 -- 28.2 MCV 74 72 72 73 72 -- 73 RDW 20.5 20.0 19.8 20.0 19.8 -- 19.7 Plt 177 189 197 189 221 -- 189 INR -- -- -- -- -- 1.22 -- WBC/Diff 01/28/2025 12:29 AM Neutro% 71.3 Lymph% 11.5 Eos% 2.8 Hepatic/Biliary/Pancrea s 01/25/2025 1:22 PM T Prot 5.1 Albumin 3.4 D Bili 0.42 T Bili 2.5 Alk Phos 52 ALT 7 AST 15 Colonoscopy from yesterday was reviewed: Multiple adenomatous colonic polyps (s/p biopsy) Few scattered diverticula noted in sigmoid colon ASSESSMENT AND PLAN: Painless hematochezia secondary to lower gastrointestinal hemorrhage Likely source is diverticula and rectal polyps and internal hemorrhoids all noted on colonoscopy No bleeding overnight Colonic polyps x 4 Follow up on pathology These will likely need to be removed at a later date Acute blood loss anemia secondary to 1. Goal Hgb > 7 Splenic artery aneurysm IR-guided embolization today Dee Dee Nava MD, MPH Division of Pulmonary, Critical Care, AND Sleep Medicine [facility] [employer] [facility] PIN [id number] [1] Social History Tobacco Use Smoking Status Not on file Smokeless Tobacco Not on file Normal [facility] [employer] [facility] BASIC METABOLIC PANELon 08-2 Anion gap [Moles/Vol] 13 mmol/L Normal 10-20 [facility] Comment on above: Performed By: #### Aruna Olivas, CH8 #### [facility] [address] [place] [address], Calcium [Mass/Vol] 7.8 mg/dL Low 8.6-10.3 [facility] Comment on above: Performed By: #### Aruna Olivas, CH8 #### [facility] [address] [place] [address], Chloride [Moles/Vol] 112 mmol/L High 98-107 [facility] Comment on above: Performed By: #### Aruna Olivas, CH8 #### [facility] [address] [place] [address], CO2 [Moles/Vol] 23 mmol/L Normal 21-31 [facility] Comment on above: Performed By: #### Aruna Olivas, CH8 #### [facility] [address] [place] [address], Creatinine [Mass/Vol] 0.54 mg/dL Low 0.60-1.20 [facility] Comment on above: Performed By: #### Aruna Olivas, CH8 #### [facility] [address] [place] [address], ESTIMATED GFR (CKD-EPI) 92 mL/min/1.73sqm Normal >=60 [facility] Comment on above: Result Comment: 2020 CKD EPI Equation using Creatinine without Race Comment: Estimated glomerular filtration rate (eGFR) is calculated without a race coefficient. Values should be interpreted in the context of the patient's full clinical presentation. Reference: 1. Raul C, Adalgisa M, Elizabeth MITCHELL, et al.. A Unifying Approach for GFR Estimation: Recommendations of the NKF-ASN Task Force on Reassessing the Inclusion of Race in Diagnosing Kidney Disease. [place] Journal of Kidney Diseases 2021;79(2):268-88.e1. 2. N Engl J Med 2020 Vol. 385 Issue 19 Pages 6364-8327 Performed By: #### Aruna Olivas, CH8 #### [facility] [address] [place] [address], Glucose [Mass/Vol] 68 mg/dL Low 74-109 [facility] Comment on above: Performed By: #### Aruna Olivas, CH8 #### [facility] [address] [place], [place], Potassium [Moles/Vol] 3.2 mmol/L Low 3.5-5.0 [facility] Comment on above: Performed By: #### Aruna Olivas, CH8 #### [facility] [address] [place], [place], Sodium [Moles/Vol] 145 mmol/L Normal 136-145 [facility] Comment on above: Performed By: #### Aruna Olivas, CH8 #### [facility] [address] [place], [place], Urea nitrogen [Mass/Vol] 5 mg/dL Low 7-25 [facility] Comment on above: Performed By: #### Aruna Olivas, CH8 #### [facility] [address] [place], [place], Basic metabolic 2000 panelon 01-27-2025 Anion gap [Moles/Vol] 13 mmol/L 10 - [address] [facility] Calcium [Mass/Vol] 7.8 mg/dL Low 8.6 - 10. 3 mg/dL [facility] Chloride [Moles/Vol] 112 mmol/L High 98 - 10 7 mmol/L [facility] CO2 [Moles/Vol] 23 mmol/L 21 - 31 mmol/L [facility] Creatinine [Mass/Vol] 0.54 mg/dL Low 0.60 - 1.20 mg/dL [facility] GFR/1.73 sq M.predicted CKD-EPI (S/P/Bld) [Vol rate/Area] 92 - PINF [facility] Comment on above: 2020 CKD EPI Equatio n using Creatinine without Race Comment: Estimated glomerular filtration rate (eGFR) is calculated without a race coefficient. Values should be interpreted in the context of the patient's full clinical presentation. Reference: 1. Raul García, Adalgisa M, Elizabeth MITCHELL, et al.. A Unifying Approach for GFR Estimation: Recommendations of the NKF-ASN Task Force on Reassessing the Inclusion of Race in Diagnosing Kidney Disease. [place] Journal of Kidney Diseases 202;79(2):268-88.e1. 2. N Engl J Med 1 Vol. 385 Issue 19 Pages 9997-5155 Glucose [Mass/Vol] 68 mg/dL Low 74 - 109 mg/dL [facility] Interpretation and review of laboratory results Abnormal [facility] Potassium [Moles/Vol] 3.2 mmol/L Low 3.5 - 5.0 mmol/L [facility] Sodium [Moles/Vol] 145 mmol/L 136 - 145 mmol/L [facility] Urea nitrogen [Mass/Vol] 5 mg/dL Low 7 - 25 mg/dL [facility] CBC WITH DIFFERENTIALOrdered By: Letty Arevalo on 01-27-2025 Basophils (Bld) [#/Vol] 0.04 10*3/uL 0.00 - 0.20 K/uL [facility] Basophils/100 WBC (Bld) 0.5 % NINF - 1.9 % [facility] Eosinophils (Bld) [#/Vol] 0.1 10*3/uL 0.00 - 0.70 K/uL [facility] Eosinophils/100 WBC (Bld) 1.3 % 0.1 - 4.0 % [facility] Erythrocyte distribution width (RBC) [Ratio] 20 % High 11.5 - 14.5 % [facility] Hematocrit (Bld) [Volume fraction] 24.6 % Low 36.0 - 46.0 % [facility] Hemoglobin (Bld) [Mass/Vol] 7.9 g/dL Low 12.0 - 15.0 g/dL [facility] Interpretation and review of laboratory results Abnormal [facility] Lymphocytes (Bld) [#/Vol] 0.83 10*3/uL Low 1.00 - 4.80 K/uL [facility] Lymphocytes/100 WBC (Bld) 10.8 % Low 24.0 - 44.0 % [facility] MCH (RBC) [Entitic mass] 23.2 pg Low 26.0 - 34.0 pg [facility] MCHC (RBC) [Mass/Vol] 32.1 g/dL 32.0 - 35.9 g/dL [facility] MCV (RBC) [Entitic vol] 72 fL Low 80 - 100 fL [facility] Monocytes (Bld) [#/Vol] 0.92 10*3/uL 0.20 - 1.00 K/uL [facility] Monocytes/100 WBC (Bld) 11.9 % High 2.0 - 11.0 % [facility] Neutrophils (Bld) [#/Vol] 5.82 10*3/uL 1.50 - 8.00 K/uL [facility] Neutrophils/100 WBC (Bld) 75.5 % 31.0 - 76.0 % [facility] Platelet mean volume (Bld) [Entitic vol] 8.6 fL 7.5 - 11.2 fL [facility] Platelets (Bld) [#/Vol] 189 10*3/uL 150 - 400 K/uL [facility] RBC (Bld) [#/Vol] 3.4 10*6/uL Low [facility] WBC (Bld) [#/Vol] 7.7 10*3/uL 4.5 - 11.5 K/uL [facility] CBC WITH DIFFERENTIALon 01-08 Basophils (Bld) [#/Vol] 0.04 10*3/uL Normal 0.00-0.20 [facility] Comment on above: Performed By: #### Aruna Olivas, CH8 #### [facility] [address] [place] [address], Basophils/100 WBC (Bld) 0.5 % Normal <=1.9 [facility] Comment on above: Performed By: #### Aruna Olivas, CH8 #### [facility] [address] [place] [address], Eosinophils (Bld) [#/Vol] 0.10 10*3/uL Normal 0.00-0.70 [facility] Comment on above: Performed By: #### Aruna Olivas, CH8 #### [facility] [address] [place] [address], Eosinophils/100 WBC (Bld) 1.3 % Normal 0.1-4.0 [facility] Comment on above: Performed By: #### Aruna Olivas, CH8 #### [facility] [address], [place], Erythrocyte distribution width (RBC) [Ratio] 20.0 % High 11.5-14.5 [facility] Comment on above: Performed By: #### Aruna Olivas, CH8 #### [facility] [address] [place], [place], Hematocrit (Bld) [Volume fraction] 24.6 % Low 36.0-46.0 [facility] Comment on above: Performed By: #### Aruna Olivas, CH8 #### [facility] [address] [place] [address], Hemoglobin (Bld) [Mass/Vol] 7.9 g/dL Low 12.0-15.0 The [facility] Comment on above: Performed By: #### Aruna Olivas, CH8 #### [facility] [address] [place], [place], Lymphocytes (Bld) [#/Vol] 0.83 10*3/uL Low 1.00-4.80 The [facility] Comment on above: Performed By: #### Aruna Olivas, CH8 #### [facility] [address] [place] [address], Lymphocytes/100 WBC (Bld) 10.8 % Low 24.0-44.0 The [facility] Comment on above: Performed By: #### Aruna Olivas, CH8 #### [facility] [address] [place] [address], MCH (RBC) [Entitic mass] 23.2 pg Low 26.0-34.0 The [facility] Comment on above: Performed By: #### Aruna Olivas, CH8 #### [facility] [address] [place] [address], MCHC (RBC) [Mass/Vol] 32.1 g/dL Normal 32.0-35.9 The [facility] Comment on above: Performed By: #### Aruna Olivas, CH8 #### [facility] [address] [place] [address], MCV (RBC) [Entitic vol] 72 fL Low 80-100 The [facility] Comment on above: Performed By: #### Aruna Olivas, CH8 #### [facility] [address] [place] [address], Monocytes (Bld) [#/Vol] 0.92 10*3/uL Normal 0.20-1.00 [facility] Comment on above: Performed By: #### Aruna Olivas, CH8 #### [facility] [address] [place] [address], Monocytes/100 WBC (Bld) 11.9 % High 2.0-11.0 [facility] Comment on above: Performed By: #### Aruna Olivas, CH8 #### [facility] [address] [place] [address], Neutrophils (Bld) [#/Vol] 5.82 10*3/uL Normal 1.50-8.00 [facility] Comment on above: Performed By: #### Aruna Olivas, CH8 #### [facility] [address] [place] [address], Neutrophils/100 WBC (Bld) 75.5 % Normal 31.0-76.0 [facility] Comment on above: Performed By: ###Roger Olivas, CH8 #### [facility] [address] [place] [address], Platelet mean volume (Bld) [Entitic vol] 8.6 fL Normal 7.5-11.2 [facility] Comment on above: Performed By: ###Roger Olivas, CH8 #### [facility] [address] [place] [address], Platelets (Bld) [#/Vol] 189 10*3/uL Normal 150-400 [facility] Comment on above: Performed By: #### Aruna Olivas, CH8 #### [facility] [address] [place] [address], RBC (Bld) [#/Vol] 3.40 10*6/uL Low 4.00-5.20 [facility] Comment on above: Performed By: ###Roger Olivas, CH8 #### [facility] [address] [place] [address], WBC (Bld) [#/Vol] 7.7 10*3/uL Normal 4.5-11.5 [facility] Comment on above: Performed By: ###Roger Olivas, CH8 #### [facility] [address] [place], [address] Care Plan Noteon 01-27-2025 Rd Mechanical Engineer Authentication Interface Message Text I tried at least thrice to reach her son to update on her colonoscopy but with no avail. Normal [facility] H AND Luis Felipe 01-27-2025 Rd Mechanical Engineer Authentication Interface Message Text Ely Hurtado [id number] 01/27/2025 HISTORY AND PHYSICAL: Patient's history with special attention to the cardiovascular, pulmonary systems and the current problem was reviewed with the patient immediately prior to the procedure. Medications, allergies, and pertinent laboratory tests were also reviewed at this time. The physical examination,as below, was then performed. Patient assessed to be ASA Class II Mallampati Airway Assessment: Class II Faucial pillars, soft palate visible History of adverse reactions involving sedation/anesthesia. None reported.} Family history of adverse reaction to sedation/anesthesia. None reported. PHYSICAL EXAMINATION BP 111/69 (BP Location: right arm) Pulse 77 Temp 98 ???F (36.7 ???C) (Oral) Resp 23 Ht 5' 9" (1.753 m) Wt 134 lb 0.6 oz (60.8 kg) SpO2 97% BMI 19.79 kg/m??? Mouth and Pharynx : Normal dentia/ oropharynx, clear Cardiac: regular rate and rhythm without murmurs, rubs, or gallops Pulmonary: Chest clear to auscultation bilaterally Neurological: normal without focal findings, mental status, speech normal, alert and oriented x iii, YONY, reflexes normal and symmetric Abdomen: Abdomen soft, non-tender. BS normal. No masses, No organomegaly Written informed consent obtained from legal guardian. Risks (including but not limited to perforation, bloating and bleeding,) benefits and alternatives explained and questions answered. Legal guardian verbalized understanding. Based on history and airway assessment patient is an appropriate candidate for moderate sedation. Juan Parikh MD 01/27/2025 3:34 PM Normal [facility] [employer] MAGNESIUMon 01-27-2025 Interpretation and review of laboratory results Normal [facility] Magnesium [Mass/Vol] 2 mg/dL 1.9 - 2 .7 mg/dL [facility] Magnesium [Mass/Vol] 2.0 mg/dL Normal 1.9-2.7 [facility] Comment on above: Performed By: #### M G, CH8 #### [facility] [address] [place] [address], MANUAL DIFF AND MORPHon 01-08 Cells Counted Total (Bld) [#] [facility] Microcytes Ql (Bld) Slight [facility] Ovalocytes LM Ql (Bld) Few [facility] RBC.hypochromic/100 RBC Auto (Bld) Moderate [facility] Schistocytes LM Ql (Bld) Few [facility] CELLS COUNTED TOTAL # IN BLOOD Normal [facility] Comment on above: Performed By: #### M Deisy, CH8 #### [facility] [address] [place] [address], FRAGMENTED RBC Few Normal The [facility] Comment on above: Performed By: #### Aruna Olivas, CH8 #### [facility] [address] [place] [address], HYPOCHROMASIA Moderate Normal [facility] Comment on above: Performed By: #### Aruna Olivas, CH8 #### [facility] [address] [place] [address], MICROCYTOSIS Slight Normal The [facility] Comment on above: Performed By: #### Aruna Olivas, CH8 #### [facility] [address] [place] [address], OVALOCYTES Few Normal The [facility] Comment on above: Performed By: #### Aruna Olivas, CH8 #### [facility] [address] [place] [address], No Panel InformationOrdered By: Letty Arevalo on 01-27-2025 [facility] No Panel Informationon 01-27 [facility] OP Noteon 01-27-2025 Rd Mechanical Engineer Authentication Interface Message Text Ely Hurtado 84 year old Surgical Contact Serial Number: [id number] Location: ENDO ADD ON PROCEDURE Date: 01/27/2025 Emergency Room Rn: Juan Parikh MD Attending:Adrien Caraballo MD Procedure(s): COLONOSCOPY Sedation: Moderate: Oxygen 2L via nasal cannula, Fentanyl 75 mcg IV, Versed 3 mg IV Moderate sedation intraservice total time was 29 minutes. Moderate sedation provided by the same provider performing the procedure. Pre-Op Diagnosis Codes: * Rectal bleeding [K62.5] Indications: This is a 84 year old female here for colonoscopy to evaluate for rectal bleeding. No priorrior colonoscopies. Patient examined. Anus and digital rectal exam were Normal. While monitoring the patient with EKG, pulse oximetry and BP, colonoscope passed into cecum, which was identified by ileo-cecal valve, appendical orifice and transillumination of right lower quadrant. Prep was Hartman Bowel Prep Right Colon: Entire colon seen well, Hartman Bowel Prep Transverse Colon: Entire colon seen well, Hartman Bowel Prep Left Colon:Entire colon seen well or Excellent (Small volume of clear liquid or >95% of srface seen). FINDINGS: TI: Briefly visualized with no blood noted Cecum: Normal. Ascending Colon: Abnormal. one large 3 cm pedunculated polyp, biopsied to rule out malignancy (Bottle A). There were two adjacent polyps, one 7 mm adenomatous polyp proximal distal to the polyp and another 1 cm polyp lateral to polyp. Hepatic Flexure: Normal. Transverse Colon: Abnormal, one 9 mm polyp. Splenic Flexure: Normal. Descending Colon: Normal. Sigmoid Colon: Abnormal, few scattered small mouthed diverticula. Rectum: One 9 mm adenomatous pedunculated polyp with erythema on anal verge/near dentate line, best appreciated in retroflexed view, which was biopsies to rule out malignancy (Bottle B). + internal hemorrhoids Rectal bleeding (Primary Diagnosis) [[id number]] Unspecified right bundle-branch block [[id number]] Abnormal electrocardiogram (ECG) (EKG) [9414318] Abnormal electrocardiogram (ECG) (EKG) [[id number]] ANATOMIC SPECIMEN: Yes SPECIMEN: ID Type Source Tests Collected by Time Destination A : A. ascending colon bx Tissue Ascending colon SURGICAL GI ANATOMIC PATHOLOGY Juan Parikh MD 01/27/2025 171 B : rectum bx Tissue Rectum SPECIMEN FOR SURGICAL PATH Juan Parikh MD 01/27/2025 171 PHOTOGRAPH TAKEN: Yes Complications during procedure: None Estimated Blood Loss (EBL): Minimal IMPRESSION: Tortuous colon No active bleeding or evidence of old blood in colonoscopy One rectal polyp - suspect as etiology of her BRBPR. This was biopsied to rule out malignancy, but not removed. Internal hemorrhoids Four colonic polyps, not removed. The largest measured ~3 cm in size and was biopsied to rule out malignancy RECOMMENDATIONS: Follow-up path, if path is benign then patient would need repeat outpatient colonoscopy for polypectomies Repeat colonoscopy would need to be scheduled for 1 hour/prolonged case Ok for regular diet We will sign off but please don't hesitate to reach out with questions or concerns Hemorrhoidal care: -Sitz bath two to three times a day (in squatting position) PRN -Clean the area with a designated 100% cotton towel after washing the area with luke warm water after each bowel movement -Avoid straining and constipation -Increase fiber supplementation -Keep stools soft and regular, can use Colace or Miralax if needed -Anusol HC suppositories/cream BID for 10 days whenever there is bleeding Person completing note: Juan Parikh MD 01/27/2025 at 5:17 PM Patient meets criteria for discharge/transfer: Juan Parikh MD ATTENDING NOTE: I was present during and participated in this procedure, and have reviewed and agree with the findings. Adrien Caraballo MD Division of Gastroenterology AND Hepatology [facility] Normal [facility] Patient Instructionson 01-27 Rd Mechanical Engineer Authentication Interface Message Text COLONOSCOPY COLYTE SPLIT PREP DO NOT FOLLOW INSTRUCTIONS ON THE COLYTE BOTTLE Please call [phone] to schedule your procedure WHAT IS A COLONOSCOPY? Colonoscopy is a way to look at the inside of the colon or lower bowel with a flexible tube called a colonoscope. The scope has a light and a camera in it. This allows the doctor to view the inside of the colon to find disease processes which do not show on x-ray examination. During the test a polyp may be found. Polyps are abnormal growths of tissue which vary in size. They can be removed during the colonoscopy. This is called a polypectomy. Polyps are usually removed because they can cause rectal bleeding or may become cancer. WHAT PREPARATION IS REQUIRED? Proper preparation is very important for this test. The colon must be clean and empty for the doctor to do the test. Your doctor will give you a prescription for a medication called COLYTE, GOLYTELY OR NULYTELY. This will be used to cleanse your bowels. CONTACT YOUR PRIMARY CARE PHYSICIAN FOR THE FOLLOWING: - Regarding any changes or what medication should be taken on the test day. - If you are taking any BLOOD THINNER MEDICATIONS such as Coumadin, Heparin, Ticlid, Plavix, Brilinta, Eliquis, Xarelto, or Pletal, these are generally held for a short time before your endoscopy. IMPORTANT: Please talk to your doctor for specific instructions about how to appropriately manage these blood thinner medications for your upcoming endoscopy test. - GLP1, STGLT2 and STGLT1 type medications (for example, Farxiga, Jardiance, Steglarto, Ozempic, Wegovy, Invokana, Trulicity, Mounjaro, Zepbound) should be stopped a week before for weekly injections and a day before for daily injections. - For DIABETIC patients, ask your doctor about how to take your diabetic medications for the day before and day of the test. Please check your blood sugar before arriving for the test. 7 DAYS BEFORE THE TEST STOP TAKING THE FOLLOWING MEDICATIONS: - Iron pills 3 DAYS BEFORE THE TEST: STOP eating corn, dried beans, tomatoes, nuts or seeds. THE DAY BEFORE THE TEST: Prepare the Colyte in the morning - Add water to the fill line. It may be refrigerated (may taste better when chilled). - You may only add Lemonade Flavor Crystal Light to the solution. - Do NOT add ice or pour over ice when drinking. - See below instructions for how to take the Colyte depending on the time of your procedure. Start a clear liquid diet. NO solid foods or milk products are allowed for the entire (whole) day before the procedure. Patients with diabetes or who had a colonoscopy before and were told their bowel prep was not real good; please begin the clear liquid diet 2 days before colonoscopy. Please drink plenty of clear liquids on this day. Clear liquids are liquids that you can see through. EXAMPLES OF CLEAR LIQUIDS ARE: - Clear broth (chicken, beef, turkey, vegetable) - Cranberry juice - Water - Sprite, 7-up, tang elizabet - Flavored estrada - Coffee/tea with sugar or honey - White grape juice - Gatorade, Koolaid, Jello (no red, blue, or purple) - Apple juice - Popsicles (no red, blue, or purple) YOUR PREP INSTRUCTION WILL DEPEND ON THE TIME OF YOUR PROCEDURE: IF YOU HAVE AN APPOINTMENT BETWEEN 8:00 AM - 12 NOON: At 4:00 PM THE EVENING BEFORE THE TEST: - Drink one 8-ounce glass of COLYTE every 10-15 minutes. - DRINK ONLY HALF OF THE BOTTLE OF COLYTE. - Finish this portion within 2 hours. Do not pour over ice. Do not drink anything else with the Colyte. At 9:00 PM THE EVENING BEFORE THE TEST: - Drink the rest of the Colyte. Finish within 2 hours. IF YOU HAVE AN APPOINTMENT AFTER 12 NOON: At 9:00 PM THE EVENING BEFORE THE TEST: - Drink one 8-ounce glass of COLYTE every 10-15 minutes. - DRINK ONLY HALF OF THE BOTTLE OF COLYTE. - Finish this portion within 2 hours. Do not pour over ice. Do not drink anything else with the Colyte. At 6:00 AM ON THE DAY OF THE TEST: - Drink the rest of the Colyte. Finish everything within 2 hours. TIPS TO ADDRESS NAUSEA WHILE TAKING THE COLYTE: - If you become full or nauseated while drinking COLYTE, you may wait 15 to 30 minutes until this feeling subsides and then continue drinking. - The Colyte may taste better when chilled overnight in a refrigerator. - The Colyte may be easier to drink through a straw. - You can also suck on lemon slices or sugar-free menthol candy drops when drinking the Colyte. - Your bowels should begin to move in the first hour. - Your bowel movements should run clear like water. - You may only have clear liquids (other than Colyte) up to 3 hours before the procedure. This is how your bowel movement should look after taking the preparation - now you are ready for the procedure! WHAT SHOULD YOU EXPECT DURING THE COLONOSCOPY: You will change into a patient gown and an IV will be started. Your doctor will give you sedative medicati (more content not included)... Normal [facility] Progress Noteson 01-27-2025 [address] Mechanical Engineer Authentication Interface Message Text Division of Pulmonary, Critical Care, and Sleep Medicine Stepdown Unit ATTENDING NOTE Code Status: Full Code DPOAHC/NOK: Aliza Hurtado (Son) Admission Date and Time: 01/25/2025 12:28 PM LOS: 2 days I saw and evaluated Ms. Ely Hurtado. I personally obtained javed and critical portions of the history and physical examination. I reviewed the resident's documentation and discussed the patient with the residents and the MSDU team. I agree with the resident's medical decision making as documented in their note. The patient has a high probability of sudden, clinically significant deterioration, which requires the highest level of physician preparedness to intervene urgently. I managed/supervised life or organ supporting interventions that required frequent physician assessment. Time I spent with family or surrogate(s) is included only if the patient was incapable of providing the necessary information or participating in medical decision making. Time devoted to teaching and to any procedures I billed separately is not included. I spent 31 critical care minutes of my full attention on this patient's management and direct patient care. Of note, medical issues requiring critical care management include: ACUTE BLOOD LOSS ANEMIA . SUBJECTIVE: Received 2L of bowel prep overnight. Clear liquid output today. Denies abdominal pain. Social Connections: Not on file Tobacco Use History[1] OBJECTIVE: Allergy: Patient has no allergy information on record. Patient Vitals for the past 24 hrs: BP Temp Temp src Pulse Resp SpO2 O2 Device 01/27/25 1000 123/76 -- -- 88 13 100 % Room air 01/27/25 0800 131/75 98.2 ???F (36.8 ???C) Oral 94 22 100 % Room air 01/27/25 0600 118/66 -- -- 75 14 97 % Room air 01/27/25 0500 -- -- -- -- -- -- Room air 01/27/25 0400 110/77 98.2 ???F (36.8 ???C) Oral 79 33 95 % Room air 01/27/25 0200 118/72 -- -- 82 45 96 % Room air 01/27/25 0100 -- -- -- -- -- -- Room air 01/27/25 0000 133/70 98 ???F (36.7 ???C) Oral 87 21 97 % Room air 01/26/252200 -- -- -- 91 27 98 % -- 01/26/252199 147/89 -- -- 91 23 97 % Room air 01/26/252100 -- -- -- 92 17 98 % -- 01/26/252000 -- -- -- 92 18 99 % -- 01/26/251999 139/88 -- -- 91 20 98 % Room air 08/20/25 1901 -- -- -- 92 13 -- -- 01/26/25 1801 -- -- -- 94 17 -- -- 01/26/25 1800 143/86 -- -- 92 22 99 % Room air 01/26/25 1701 -- -- -- 93 22 96 % -- 01/26/25 1601 -- -- -- 96 23 -- -- 01/26/25 1600 115/81 98.1 ???F (36.7 ???C) Oral 93 26 100 % Room air 01/26/25 1525 -- -- -- -- -- -- Room air 01/26/25 1501 -- -- -- 96 20 95 % -- 01/26/25 1400 137/82 -- -- 95 19 98 % Room air 01/26/25 1230 -- -- -- -- -- -- Room air 01/26/25 1200 134/82 98.1 ???F (36.7 ???C) Oral 90 24 99 % Room air Fingerstick Glucose None Intake/Output Summary (Last 24 hours) at 01/27/2025 1111 Last data filed at 01/27/2025 1000 Gross per 24 hour Intake 460 ml Output 1850 ml Net -1390 ml RASS: 0 LABS: Basic Metabolic Panel 01/27/2025 01/26/2025 01/25/2025 5:10 AM 5:04 AM 1:22 PM Na 145 141 142 K 3.2 3.7 3.8 Cl 112 110 108 CO2 23 23 26 Gap 13 12 12 Glu 68 85 98 BUN 5 9 13 Cr 0.54 0.58 0.61 Ca 7.8 7.9 8.3 Mg 2.0 1.9 2.0 Date of last serum creatinine: 01/27/2025 Estimated Creatinine Clearance: 77.09 mL/min (A) (by C-G formula based on SCr of 0.54 mg/dL (L)). Estimated Glomerular Filtration Rate: 92.1 mL/min/1.73m2 (A) (by CKD-EPI based on SCr of 0.54 mg/dL (L)). CBC/PT/INR 01/27/2025 01/26/2025 01/26/2025 01/25/2025 01/25/202501/2501/25/2025 5:10 AM 2:49 PM 5:04 AM 8:14 PM 1:58 PM 1:22 PM WBC 7.7 7.9 8.9 10.2 -- 7.8 RBC 3.40 3.65 3.67 4.11 -- 3.86 Hgb 7.9 8.4 8.7 9.8 -- 9.0 Hct 24.6 26.2 26.8 29.7 -- 28.2 MCV 72 72 73 72 -- 73 RDW 20.0 19.8 20.0 19.8 -- 19.7 Plt 189 197 189 221 -- 189 INR -- -- -- -- 1.22 -- WBC/Diff 01/27/2025 01/26/2025 5:10 AM 2:49 PM Neutro% 75.5 78.6 Lymph% 10.8 9.9 Eos% 1.3 0.7 Hepatic/Biliary/Pancrea s 01/25/2025 1:22 PM T Prot 5.1 Albumin 3.4 D Bili 0.42 T Bili 2.5 Alk Phos 52 ALT 7 AST 15 ASSESSMENT AND PLAN: Painless hematochezia Colonoscopy today [address] large [address] IVs in place Acute blood loss anemia secondary to 1 Goal Hgb > 7 Dee Dee Nava MD, MPH Division of Pulmonary, Critical Care, AND Sleep Medicine [facility] [facility] PIN [id number] [1] Social History Tobacco Use Smoking Status Not on file Smokeless Tobacco Not on file Normal [facility] BASIC METABOLIC PANELon 08-2 Anion gap [Moles/Vol] 12 mmol/L Normal 10-20 [facility] Comment on above: Performed By: #### Aruna Olivas CH8 #### [facility] [address] [place], [place], Calcium [Mass/Vol] 7.9 mg/dL Low 8.6-10.3 [facility] Comment on above: Performed By: #### Aruna Olivas CH8 #### [facility] [address] [place], [place], Chloride [Moles/Vol] 110 mmol/L High 98-107 [facility] Comment on above: Performed By: #### M G, CH8 #### [facility] [address] [place], [place], CO2 [Moles/Vol] 23 mmol/L Normal 21-31 [facility] Comment on above: Performed By: #### Aruna Olivas, [id number] #### [facility] [address] [place], [place], Creatinine [Mass/Vol] 0.58 mg/dL Low 0.60-1.20 [facility] Comment on above: Performed By: #### Aruna Olivas, CH8 #### [facility] [address] [place], [place], ESTIMATED GFR (CKD-EPI) 90 mL/min/1.73sqm Normal >=60 [facility] Comment on above: Result Comment: 2020 CKD EPI Equation using Creatinine without Race Comment: Estimated glomerular filtration rate (eGFR) is calculated without a race coefficient. Values should be interpreted in the context of the patient's full clinical presentation. Reference: 1. Raul C, Adalgisa M, Elizabeth MITCHELL, et al.. A Unifying Approach for GFR Estimation: Recommendations of the NKF-ASN Task Force on Reassessing the Inclusion of Race in Diagnosing Kidney Disease. [place] Journal of Kidney Diseases 2021;79(2):268-88.e1. 2. N Engl J Med 1 Vol. 385 Issue 19 Pages 8763-2550 Performed By: #### Aruna Olivas CH8 #### [facility] [address] [place], [place], Glucose [Mass/Vol] 85 mg/dL Normal 74-109 [facility] Comment on above: Performed By: #### Aruna Olivas CH8 #### [facility] [address], [place], Potassium [Moles/Vol] 3.7 mmol/L Normal 3.5-5.0 [facility] Comment on above: Performed By: ###Roger Olivas, CH8 #### [facility] [address], [place], Sodium [Moles/Vol] 141 mmol/L Normal 136-145 [facility] Comment on above: Performed By: #### M G, CH8 #### [facility] [address], [place], Urea nitrogen [Mass/Vol] 9 mg/dL Normal 7-25 [facility] Comment on above: Performed By: #### M Deisy, [id number] #### [facility] [address] [place], [place], Basic metabolic 2000 panelon 01-26-2025 Anion gap [Moles/Vol] 12 mmol/L 10 - 20 [facility] Calcium [Mass/Vol] 7.9 mg/dL Low 8.6 - 10. 3 mg/dL [facility] Chloride [Moles/Vol] 110 mmol/L High 98 - 10 7 mmol/L [facility] CO2 [Moles/Vol] 23 mmol/L 21 - 31 mmol/L [facility] Creatinine [Mass/Vol] 0.58 mg/dL Low 0.60 - 1.20 mg/dL [facility] GFR/1.73 sq M.predicted CKD-EPI (S/P/Bld) [Vol rate/Area] 90 - PINF [facility] Comment on above: 2020 CKD EPI Equatio n using Creatinine without Race Comment: Estimated glomerular filtration rate (eGFR) is calculated without a race coefficient. Values should be interpreted in the context of the patient's full clinical presentation. Reference: 1. Raul C, Adalgisa M, Elizabeth DC, et al.. A Unifying Approach for GFR Estimation: Recommendations of the NKF-ASN Task Force on Reassessing the Inclusion of Race in Diagnosing Kidney Disease. [place] Journal of Kidney Diseases 2021;79(2):268-88.e1. 2. N Engl J Med 2020 Vol. 385 Issue 19 Pages 3450-1910 Glucose [Mass/Vol] 85 mg/dL 74 - 109 mg/dL [facility] Interpretation and review of laboratory results Abnormal [facility] Potassium [Moles/Vol] 3.7 mmol/L 3.5 - 5.0 mmol/L [facility] Sodium [Moles/Vol] 141 mmol/L 136 - 145 mmol/L [facility] Urea nitrogen [Mass/Vol] 9 mg/dL 7 - 25 mg/dL [facility] CBC WITH DIFFERENTIALOrdered By: Eliana Kelsey on 01-26-2025 Basophils (Bld) [#/Vol] 0.07 10*3/uL 0.00 - 0.20 K/uL [facility] Basophils/100 WBC (Bld) 0.9 % NINF - 1.9 % [facility] Eosinophils (Bld) [#/Vol] 0.05 10*3/uL 0.00 - 0.70 K/uL [facility] Eosinophils/100 WBC (Bld) 0.7 % 0.1 - 4.0 % [facility] Erythrocyte distribution width (RBC) [Ratio] 19.8 % High 11.5 - 14.5 % [facility] Hematocrit (Bld) [Volume fraction] 26.2 % Low 36.0 - 46.0 % [facility] Hemoglobin (Bld) [Mass/Vol] 8.4 g/dL Low 12.0 - 15.0 g/dL [facility] Interpretation and review of laboratory results Abnormal [facility] Lymphocytes (Bld) [#/Vol] 0.78 10*3/uL Low 1.00 - 4.80 K/uL [facility] Lymphocytes/100 WBC (Bld) 9.9 % Low 24.0 - 44.0 % [facility] MCH (RBC) [Entitic mass] 23 pg Low 26.0 - 34.0 pg [facility] MCHC (RBC) [Mass/Vol] 32.1 g/dL 32.0 - 35.9 g/dL [facility] MCV (RBC) [Entitic vol] 72 fL Low 80 - 100 fL [facility] Monocytes (Bld) [#/Vol] 0.79 10*3/uL 0.20 - 1.00 K/uL [facility] Monocytes/100 WBC (Bld) 10 % 2.0 - 11.0 % [facility] Neutrophils (Bld) [#/Vol] 6.22 10*3/uL 1.50 - 8.00 K/uL [facility] Neutrophils/100 WBC (Bld) 78.6 % High 31.0 - 76.0 % [facility] Platelet mean volume (Bld) [Entitic vol] 8.3 fL 7.5 - 11.2 fL [facility] Platelets (Bld) [#/Vol] 197 10*3/uL 150 - 400 K/uL [facility] RBC (Bld) [#/Vol] 3.65 10*6/uL Low [facility] WBC (Bld) [#/Vol] 7.9 10*3/uL 4.5 - 11.5 K/uL [facility] CBC WITH DIFFERENTIALon 01-08-2024 Basophils (Bld) [#/Vol] 0.07 10*3/uL Normal 0.00-0.20 [facility] Comment on above: Performed By: #### Aruna Olivas, CH8 #### [facility] [address] [place] [address], Basophils/100 WBC (Bld) 0.9 % Normal <=1.9 [facility] Comment on above: Performed By: #### Aruna Olivas, CH8 #### [facility] [address] [place] [address], Eosinophils (Bld) [#/Vol] 0.05 10*3/uL Normal 0.00-0.70 The [facility] Comment on above: Performed By: #### Aruna Olivas, CH8 #### [facility] [address] [place] [address], Eosinophils/100 WBC (Bld) 0.7 % Normal 0.1-4.0 [facility] Comment on above: Performed By: #### Aruna Olivsa, CH8 #### [facility] [address] [place] [address], Erythrocyte distribution width (RBC) [Ratio] 19.8 % High 11.5-14.5 The [facility] Comment on above: Performed By: #### Aruna Olivas, CH8 #### [facility] [address] [place] [address], Hematocrit (Bld) [Volume fraction] 26.2 % Low 36.0-46.0 [facility] Comment on above: Performed By: #### Aruna Olivas, CH8 #### [facility] [address] [place] [address], Hemoglobin (Bld) [Mass/Vol] 8.4 g/dL Low 12.0-15.0 The [facility] Comment on above: Performed By: #### Aruna Olivas, CH8 #### [facility] [address] [place] [address], Lymphocytes (Bld) [#/Vol] 0.78 10*3/uL Low 1.00-4.80 [facility] Comment on above: Performed By: #### Aruna Olivas, CH8 #### [facility] [address] [place] [address], Lymphocytes/100 WBC (Bld) 9.9 % Low 24.0-44.0 [facility] Comment on above: Performed By: #### Aruna Olivas, CH8 #### [facility] [address] [place] [address], MCH (RBC) [Entitic mass] 23.0 pg Low 26.0-34.0 [facility] Comment on above: Performed By: #### Aruna Olivas, CH8 #### [facility] [address] [place] [address], MCHC (RBC) [Mass/Vol] 32.1 g/dL Normal 32.0-35.9 [facility] Comment on above: Performed By: ###Roger Olivas, CH8 #### [facility] [address] [place] [address], MCV (RBC) [Entitic vol] 72 fL Low 80-100 [facility] Comment on above: Performed By: #### Aruna Olivas, CH8 #### [facility] [address] [place] [address], Monocytes (Bld) [#/Vol] 0.79 10*3/uL Normal 0.20-1.00 [facility] Comment on above: Performed By: #### Aruna Olivas, CH8 #### [facility] [address] [place] [address], Monocytes/100 WBC (Bld) 10.0 % Normal 2.0-11.0 [facility] Comment on above: Performed By: #### Aruna Olivas, CH8 #### [facility] [address] [place] [address], Neutrophils (Bld) [#/Vol] 6.22 10*3/uL Normal 1.50-8.00 [facility] Comment on above: Performed By: ###Roger Olivas, CH8 #### [facility] [address] [place], [place], Neutrophils/100 WBC (Bld) 78.6 % High 31.0-76.0 [facility] Comment on above: Performed By: #### Aruna Olivas, CH8 #### [facility] [address] [place], [place], Platelet mean volume (Bld) [Entitic vol] 8.3 fL Normal 7.5-11.2 [facility] Comment on above: Performed By: #### Aruna Olivas, CH8 #### [facility] [address] [place], [place], Platelets (Bld) [#/Vol] 197 10*3/uL Normal 150-400 [facility] Comment on above: Performed By: #### Aruna Olivas, CH8 #### [facility] [address] [place], [place], RBC (Bld) [#/Vol] 3.65 10*6/uL Low 4.00-5.20 [facility] Comment on above: Performed By: #### Aruna Olivas, CH8 #### [facility] [address] [place], [place], WBC (Bld) [#/Vol] 7.9 10*3/uL Normal 4.5-11.5 The [facility] Comment on above: Performed By: #### Aruna Olivas, CH8 #### [facility] [address] [place], [place], Basophils (Bld) [#/Vol] 0.07 10*3/uL Normal 0.00-0.20 The [facility] Comment on above: Performed By: #### Aruna Olivas, CH8 #### [facility] [address] [place], [place], Basophils/100 WBC (Bld) 0.8 % Normal <=1.9 The [facility] Comment on above: Performed By: #### Aruna Olivas, CH8 #### [facility] [address] [place], [place], Eosinophils (Bld) [#/Vol] 0.13 10*3/uL Normal 0.00-0.70 [facility] Comment on above: Performed By: #### Aruna Olivas, CH8 #### [facility] [address] [place] [address], Eosinophils/100 WBC (Bld) 1.4 % Normal 0.1-4.0 [facility] Comment on above: Performed By: #### Aruna Olivas, CH8 #### [facility] [address] [place] [address], Erythrocyte distribution width (RBC) [Ratio] 20.0 % High 11.5-14.5 [facility] Comment on above: Performed By: #### Aruna Olivas, CH8 #### [facility] [address] [place] [address], Hematocrit (Bld) [Volume fraction] 26.8 % Low 36.0-46.0 [facility] Comment on above: Performed By: #### Aruna Olivas, CH8 #### [facility] [address] [place] [address], Hemoglobin (Bld) [Mass/Vol] 8.7 g/dL Low 12.0-15.0 [facility] Comment on above: Performed By: #### Aruna Olivas, CH8 #### [facility] [address] [place] [address], Lymphocytes (Bld) [#/Vol] 1.32 10*3/uL Normal 1.00-4.80 [facility] Comment on above: Performed By: #### Aruna Olivas, CH8 #### [facility] [address] [place] [address], Lymphocytes/100 WBC (Bld) 14.8 % Low 24.0-44.0 [facility] Comment on above: Performed By: #### Aruna Olivas, CH8 #### [facility] [address] [place] [address], MCH (RBC) [Entitic mass] 23.7 pg Low 26.0-34.0 [facility] Comment on above: Performed By: #### Aruna Olivas, CH8 #### [facility] [address] [place] [address], MCHC (RBC) [Mass/Vol] 32.5 g/dL Normal 32.0-35.9 [facility] Comment on above: Performed By: #### Aruna Olivas, CH8 #### [facility] [address] [place] [address], MCV (RBC) [Entitic vol] 73 fL Low 80-100 [facility] Comment on above: Performed By: #### Aruna Olivas, CH8 #### [facility] [address] [place] [address], Monocytes (Bld) [#/Vol] 1.10 10*3/uL High 0.20-1.00 [facility] Comment on above: Performed By: #### Aruna Olivas, CH8 #### [facility] [address] [place] [address], Monocytes/100 WBC (Bld) 12.3 % High 2.0-11.0 [facility] Comment on above: Performed By: #### Aruna Olivas, CH8 #### [facility] [address] [place] [address], Neutrophils (Bld) [#/Vol] 6.28 10*3/uL Normal 1.50-8.00 [facility] Comment on above: Performed By: #### Aruna Olivas, CH8 #### [facility] [address] [place] [address], Neutrophils/100 WBC (Bld) 70.7 % Normal 31.0-76.0 [facility] Comment on above: Performed By: #### Aruna Olivas, CH8 #### [facility] [address] [place] [address], Platelet mean volume (Bld) [Entitic vol] 8.1 fL Normal 7.5-11.2 [facility] Comment on above: Performed By: #### Aruna Olivas, CH8 #### [facility] [address] [place] [address], Platelets (Bld) [#/Vol] 189 10*3/uL Normal 150-400 [facility] Comment on above: Performed By: #### Aruna Olivas, CH8 #### [facility] [address], [place], RBC (Bld) [#/Vol] 3.67 10*6/uL Low 4.00-5.20 [facility] Comment on above: Performed By: #### Aruna Olivas, CH8 #### [facility] [address], [place], WBC (Bld) [#/Vol] 8.9 10*3/uL Normal 4.5-11.5 [facility] Comment on above: Performed By: #### Aruna Olivas, 8 #### [facility] [address], [place], CBC WITH DIFFERENTIALOrdered By: Linda Kang on 01-26-2025 Basophils (Bld) [#/Vol] 0.07 10*3/uL 0.00 - 0.20 K/uL [facility] Basophils/100 WBC (Bld) 0.8 % NINF - 1.9 % [facility] Eosinophils (Bld) [#/Vol] 0.13 10*3/uL 0.00 - 0.70 K/uL [facility] Eosinophils/100 WBC (Bld) 1.4 % 0.1 - 4.0 % [facility] Erythrocyte distribution width (RBC) [Ratio] 20 % High 11.5 - 14.5 % [facility] Hematocrit (Bld) [Volume fraction] 26.8 % Low 36.0 - 46.0 % [facility] Hemoglobin (Bld) [Mass/Vol] 8.7 g/dL Low 12.0 - 15.0 g/dL [facility] Interpretation and review of laboratory results Abnormal [facility] Lymphocytes (Bld) [#/Vol] 1.32 10*3/uL 1.00 - 4.80 K/uL [facility] Lymphocytes/100 WBC (Bld) 14.8 % Low 24.0 - 44.0 % [facility] MCH (RBC) [Entitic mass] 23.7 pg Low 26.0 - 34.0 pg [facility] MCHC (RBC) [Mass/Vol] 32.5 g/dL 32.0 - 35.9 g/dL [facility] MCV (RBC) [Entitic vol] 73 fL Low 80 - 100 fL [facility] Monocytes (Bld) [#/Vol] 1.1 10*3/uL High 0.20 - 1.00 K/uL [facility] Monocytes/100 WBC (Bld) 12.3 % High 2.0 - 11.0 % [facility] Neutrophils (Bld) [#/Vol] 6.28 10*3/uL 1.50 - 8.00 K/uL [facility] Neutrophils/100 WBC (Bld) 70.7 % 31.0 - 76.0 % [facility] Platelet mean volume (Bld) [Entitic vol] 8.1 fL 7.5 - 11.2 fL [facility] Platelets (Bld) [#/Vol] 189 10*3/uL 150 - 400 K/uL [facility] RBC (Bld) [#/Vol] 3.67 10*6/uL Low [facility] WBC (Bld) [#/Vol] 8.9 10*3/uL 4.5 - 11.5 K/uL [facility] Consultson 01-[address] Mechanical Engineer Authentication Interface Message Text Department of Gastroenterology and Hepatology Consult H AND P Note GI Attending Physician: Dr. Isauro Frias MD Patient: Ely Hurtado Location: [place] [address] Reason for Consult: HPI Ely Hurtado is a 84 year old female with prior history of anemia, hepatic artery aneurysm, admitted to step-down unit for evaluation of rectal bleeding. The patient resides at a nursing facility and was noted to have bright red bleeding per rectum. She was evaluated at outside hospital, where a CT abdomen and pelvis revealed a 4 centimeter hepatic aneurysm, and her hemoglobin was 6 prior to transferred to [facility]. She received 2 units of RBC transfusion. Since her transfer, she had an episode of bleeding per rectum. However, today she denies any bleeding per rectum, denies melena, nausea, vomiting, abdominal pain. She was started on bowel prep yesterday, has liquid stool which is not clear yet. Denies prior EGD or colonoscopy Not on anticoagulation Denies family history of GI cancer Denies smoking, alcohol use, or recreational drug use Review Of Systems Positives as noted in HPI. All other systems were reviewed and negative. GI Procedures - none Medical and Surgical Histories Medical History[1] Surgical History[2] Family History: family history is not on file. Social History Social History[3] atorvastatin, 10 mg, Oral, At Bedtime pantoprazole, 40 mg, Intravenous, Daily polyethylene glycol, 17 g, Oral, Daily senna, 8.6 mg, Oral, Daily Physical Exam BP 137/89 (BP Location: right arm) Pulse 101 Temp 98.2 ???F (36.8 ???C) Resp 28 Ht 5' 9" (1.753 m) Wt 132 lb 11.5 oz (60.2 kg) SpO2 86% BMI 19.60 kg/m??? General: well-nourished, well-groomed, pleasant, NAD Pulm: no increased WOB on room air, CTAB Card: RRR, no murmurs Abdomen: soft, nontender, nondistended, normal bowel sounds KIRBY: bleeding per rectum Extremities: no NICKY, no gross deformity Labs CBC/PT/INR 01/26/2025 01/25/2025 01/25/2025 01/25/2025 5:04 AM 8:14 PM 1:58 PM 1:22 PM WBC 8.9 10.2 -- 7.8 RBC 3.67 4.11 -- 3.86 Hgb 8.7 9.8 -- 9.0 Hct 26.8 29.7 -- 28.2 MCV 73 72 -- 73 RDW 20.0 19.8 -- 19.7 Plt 189 221 -- 189 INR -- -- 1.22 -- Hepatic/Biliary/Pancrea s 01/25/2025 1:22 PM T Prot 5.1 Albumin 3.4 D Bili 0.42 T Bili 2.5 Alk Phos 52 ALT 7 AST 15 Basic Metabolic Panel 01/26/2025 01/25/2025 5:04 AM 1:22 PM Na 141 142 K 3.7 3.8 Cl 110 108 CO2 23 26 Gap 12 12 Glu 85 98 BUN 9 13 Cr 0.58 0.61 Ca 7.9 8.3 Mg 1.9 2.0 PT/INR 01/25/2025 1:58 PM INR 1.22 Imaging Hepatobiliary: Unremarkable liver without biliary dilation. Cholelithiasis without CT evidence of acute cholecystitis. Additional hyperdense material within the gallbladder likely represents vicarious excretion of contrast. IMPRESSION: 1. 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 2. Chronic ancillary findings as above. ASSESSMENT 84-year-old female with history of chronic anemia, prior history of DVT, not on anticoagulation, admitted to step-down unit with bleeding per rectum. She received 2 units of transfusion prior to transfer from outside hospital, however since admission she has been hemodynamically stable, she did have an episode of bright red bleeding per rectum. 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 Continue NPO. Continue transfusion for hemoglobin less than 7 The patient expressed good understanding of the above discussion and plan. All questions were answered to her full satisfaction. Shahid Toledo MD, MS Gastroenterology Fellow. Consult Pager [phone] Discussed with GI attending, Dr. Adrien Caraballo MD Primary team updated yes. Thank you for involving us in the care of this patient. I appreciate the excellent care from the nursing staff, and practice support specialist. Dictated using voice recognition software. Document may contain errors not identified Addendum: During the afternoon rounds, she appeared disoriented and declined the colonoscopy procedure tomorrow. I spoke with her son Aliza ([email or web address]), obtained verbal consent from from her son. Please give 2 L of bowel prep. Continue NPO after midnight. Plan for colonoscopy tomorrow Teaching Physician Note I saw and evaluated the patient. I personally obtained the javed and critical portions of the history and physical exam. I reviewed the fellow's documentation and discussed the patient with the fellow. I agree with the fellow's medical decision making as documented in the resident's note. Mray Peña. Staff Gastoenterologist Division of Gastroenterology AND Hepatology (more content not included)... Normal [facility] MAGNESIUMon 01-26-2025 Interpretation and review of laboratory results Normal [facility] Magnesium [Mass/Vol] 1.9 mg/dL 1.9 - 2 .7 mg/dL [facility] Magnesium [Mass/Vol] 1.9 mg/dL Normal 1.9-2.7 [facility] Comment on above: Performed By: #### M G, CH8 #### [facility] [address] [place] [address], MANUAL DIFF AND MORPHon 08-2 0 Cells Counted Total (Bld) [#] [facility] Microcytes Ql (Bld) Slight [facility] Ovalocytes LM Ql (Bld) Few [facility] Polychromasia LM Ql (Bld) Slight [facility] RBC.hypochromic/100 RBC Auto (Bld) Moderate [facility] Schistocytes LM Ql (Bld) Few [facility] CELLS COUNTED TOTAL # IN BLOOD Normal [facility] Comment on above: Performed By: #### Aruna Olivas, CH8 #### [facility] [address] [place] [address], FRAGMENTED RBC Few Normal [facility] Comment on above: Performed By: #### Aruna Olivas, CH8 #### [facility] [address] [place] [address], HYPOCHROMASIA Moderate Normal [facility] Comment on above: Performed By: #### Aruna Olivas, CH8 #### [facility] [address] [place] [address], MICROCYTOSIS Slight Normal [facility] Comment on above: Performed By: #### Aruna Olivas, CH8 #### [facility] [address] [place] [address], OVALOCYTES Few Normal [facility] Comment on above: Performed By: #### Aruna Olivas, CH8 #### [facility] [address] [place] [address], POLYCHROMASIA Slight Normal [facility] Comment on above: Performed By: #### Aruna Olivas, CH8 #### [facility] [address] [place] [address], Acanthocytes LM Ql (Bld) Few [facility] [place] cells LM Ql (Bld) Few [facility] Cells Counted Total (Bld) [#] [facility] Microcytes Ql (Bld) Slight [facility] Ovalocytes LM Ql (Bld) Few [facility] Polychromasia LM Ql (Bld) Slight [facility] RBC.hypochromic/100 RBC Auto (Bld) Moderate [facility] Schistocytes LM Ql (Bld) Few [facility] ACANTHOCYTES Few Normal [facility] Comment on above: Performed By: #### M Deisy, CH8 #### [facility] [address] [place] [address], CARLOS CELLS Few Normal The [facility] Comment on above: Performed By: #### M G, CH8 #### [facility] [address] [place] [address], CELLS COUNTED TOTAL # IN BLOOD Normal [facility] Comment on above: Performed By: #### M G, CH8 #### [facility] [address] [place] [address], FRAGMENTED RBC Few Normal [facility] Comment on above: Performed By: #### M Deisy, CH8 #### [facility] [address] [place] [address], HYPOCHROMASIA Moderate Normal [facility] Comment on above: Performed By: #### Aruna Olivas, CH8 #### [facility] [address] [place] [address], MICROCYTOSIS Slight Normal [facility] Comment on above: Performed By: #### M G, CH8 #### [facility] [address] [place] [address], OVALOCYTES Few Normal [facility] Comment on above: Performed By: #### M G, CH8 #### [facility] [address] [place] [address], POLYCHROMASIA Slight Normal [facility] Comment on above: Performed By: #### M Deisy, CH8 #### [facility] [address] [place] [address], No Panel InformationOrdered By: Eliana Kelsey on 01-26-2025 [facility] No Panel InformationOrdered By: Linda Kang on 01-26-2025 [facility] No Panel Informationon 01-26 [facility] Progress Noteson 01-26-2025 Rd Mechanical Engineer Authentication Interface Message Text Division of Pulmonary, Critical Care, and Sleep Medicine Stepdown Unit ATTENDING NOTE Code Status: Full Code DPOAHC/NOK: Aliza Hurtado (Son) Admission Date and Time: 01/25/2025 12:28 PM LOS: 1 day I saw and evaluated Ms. Ely Hurtado. I personally obtained javed and critical portions of the history and physical examination. I reviewed the resident's documentation and discussed the patient with the residents and the MSDU team. I agree with the resident's medical decision making as documented in their note. The patient has a high probability of sudden, clinically significant deterioration, which requires the highest level of physician preparedness to intervene urgently. I managed/supervised life or organ supporting interventions that required frequent physician assessment. Time I spent with family or surrogate(s) is included only if the patient was incapable of providing the necessary information or participating in medical decision making. Time devoted to teaching and to any procedures I billed separately is not included. I spent 31 critical care minutes of my full attention on this patient's management and direct patient care. Of note, medical issues requiring critical care management include: ACUTE BLOOD LOSS ANEMIA . SUBJECTIVE: 84 yo woman with prior history of DVT (xarelto), ? Dementia (A AND O x 2) with hematochezia x 1 day. Presented to [facility]. Hgb decreased to 6.2. Received 2U PRBCs. 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 Continued painless hematochezia overnight. Given bowel prep with colyte last night and dulcolax this AM. Social Connections: Not on file Tobacco Use History[1] OBJECTIVE: Allergy: Patient has no allergy information on record. Patient Vitals for the past 24 hrs: BP Temp Temp src Pulse Resp SpO2 O2 Device 01/26/25 1002 121/77 -- -- 89 17 97 % Room air 01/26/25 0801 137/89 -- -- 101 28 86 % Room air 01/26/25 0730 108/66 -- -- 89 14 95 % Room air 01/26/25 0600 109/59 -- -- 77 24 98 % Room air 01/26/25 0400 112/60 98.2 ???F (36.8 ???C) -- 80 25 96 % Room air 01/26/25 0200 117/71 -- -- 85 25 97 % Room air 01/26/25 0000 131/81 99.2 ???F (37.3 ???C) Oral 82 27 97 % Room air 01/25/25 2211 128/79 -- -- 85 19 100 % Room air 01/25/252006 130/95 -- -- 93 16 97 % Room air 01/25/251999 -- 99 ???F (37.2 ???C) Oral -- -- -- -- 01/25/25 1800 127/81 -- -- 86 26 94 % -- 01/25/25 1700 104/68 -- -- 81 23 95 % -- 01/25/25 1630 118/70 -- -- 87 32 96 % -- 01/25/25 1600 118/70 97.5 ???F (36.4 ???C) Oral 77 13 100 % Room air 01/25/25 1515 -- -- -- 86 20 94 % Room air 01/25/25 1500 -- -- -- 83 31 95 % -- 01/25/25 1400 107/91 -- -- 92 18 97 % Room air 01/25/25 1300 -- -- -- 89 21 97 % -- 01/25/25 1205 116/82 97.8 ???F (36.6 ???C) Oral 87 22 98 % Room air Intake/Output Summary (Last 24 hours) at 01/26/2025 1142 Last data filed at 01/26/2025 1024 Gross per 24 hour Intake 2175 ml Output 1950 ml Net 225 ml RASS: 0 LABS: Basic Metabolic Panel 01/26/2025 01/25/2025 5:04 AM 1:22 PM Na 141 142 K 3.7 3.8 Cl 110 108 CO2 23 26 Gap 12 12 Glu 85 98 BUN 9 13 Cr 0.58 0.61 Ca 7.9 8.3 Mg 1.9 2.0 Date of last serum creatinine: 01/26/2025 Estimated Creatinine Clearance: 71.07 mL/min (A) (by C-G formula based on SCr of 0.58 mg/dL (L)). Estimated Glomerular Filtration Rate: 90.5 mL/min/1.73m2 (A) (by CKD-EPI based on SCr of 0.58 mg/dL (L)). CBC/PT/INR 01/26/2025 01/25/2025 01/25/202501/2501/25/2025 5:04 AM 8:14 PM 1:58 PM 1:22 PM WBC 8.9 10.2 -- 7.8 RBC 3.67 4.11 -- 3.86 Hgb 8.7 9.8 -- 9.0 Hct 26.8 29.7 -- 28.2 MCV 73 72 -- 73 RDW 20.0 19.8 -- 19.7 Plt 189 221 -- 189 INR -- -- 1.22 -- WBC/Diff 01/26/2025 01/25/2025 5:04 AM 1:22 PM Neutro% 70.7 71.3 Lymph% 14.8 15.4 Eos% 1.4 0.8 Hepatic/Biliary/Pancrea s 01/25/2025 1:22 PM T Prot 5.1 Albumin 3.4 D Bili 0.42 T Bili 2.5 Alk Phos 52 ALT 7 AST 15 ASSESSMENT AND PLAN: Painless Hematochezia No clear source on CTA Colonoscopy Complete bowel preparation [address] large [address] IVs in place Anemia secondary to 1. Goal Hgb > 7 Dee Dee Nava MD, MPH Division of Pulmonary, Critical Care, AND Sleep Medicine [facility] [facility] PIN [id number] [1] Social History Tobacco Use Smoking Status Not on file Smokeless Tobacco Not on file Normal [facility] Absolute lymphocyte countOrd ered By: Jennie Navarro on 01-25-2025 Lymphocytes Auto (Unsp spec) [#/Vol] 1.53 10*3/uL 0.83-4.51 [facility] Absolute neutrophil countOrd ered By: Jennie Navarro on 01-25-2025 Neutrophils (Bld) [#/Vol] 5.2 10*3/uL 2.0-7.7 [facility] Automated lymphocyte count a s percentage of total leukocytesOrdered By: Jennie Navarro on 01-25-2025 Lymphocytes/100 WBC Auto (Unsp spec) 19.2 % 19-41 [facility] BASIC METABOLIC PANELon 01-07 Anion gap [Moles/Vol] 12 mmol/L Normal 10-20 [facility] Comment on above: Performed By: #### C H8, HEPATIC, MG #### [facility] [address] [place] [address], Calcium [Mass/Vol] 8.3 mg/dL Low 8.6-10.3 [facility] Comment on above: Performed By: #### C H8, HEPATIC, MG #### [facility] [address] [place] [address], Chloride [Moles/Vol] 108 mmol/L High 98-107 [facility] Comment on above: Performed By: #### C H8, HEPATIC, MG #### [facility] [address] [place] [address], CO2 [Moles/Vol] 26 mmol/L Normal 21-31 [facility] Comment on above: Performed By: #### Raquel H8, HEPATIC, MG #### [facility] [address] [place] [address], Creatinine [Mass/Vol] 0.61 mg/dL Normal 0.60-1.20 [facility] Comment on above: Performed By: #### C H8, HEPATIC, MG #### [facility] [address] [place] [address], ESTIMATED GFR (CKD-EPI) 89 mL/min/1.73sqm Normal >=60 [facility] Comment on above: Result Comment: 2020 CKD EPI Equation using Creatinine without Race Comment: Estimated glomerular filtration rate (eGFR) is calculated without a race coefficient. Values should be interpreted in the context of the patient's full clinical presentation. Reference: 1. Raul C, Adalgisa M, Elizabeth MITCHELL, et al.. A Unifying Approach for GFR Estimation: Recommendations of the NKF-ASN Task Force on Reassessing the Inclusion of Race in Diagnosing Kidney Disease. [place] Journal of Kidney Diseases 2021;79(2):268-88.e1. 2. N Engl J Med 1 Vol. 385 Issue 19 Pages 6594-1449 Performed By: #### C H8, HEPATIC, MG #### [facility] [address] [place], [place], Glucose [Mass/Vol] 98 mg/dL Normal 74-109 [facility] Comment on above: Performed By: #### C H8, HEPATIC, MG #### [facility] [address], [place], Potassium [Moles/Vol] 3.8 mmol/L Normal 3.5-5.0 [facility] Comment on above: Performed By: #### C H8, HEPATIC, MG #### [facility] [address], [place], Sodium [Moles/Vol] 142 mmol/L Normal 136-145 [facility] Comment on above: Performed By: #### C H8, HEPATIC, MG #### [facility] [address] [place], [place], Urea nitrogen [Mass/Vol] 13 mg/dL Normal 7-25 [facility] Comment on above: Performed By: #### C H8, HEPATIC, MG #### [facility] [address] [place], [place], Basic metabolic 2000 panelon 01-25-2025 Anion gap [Moles/Vol] 12 mmol/L 10 - [address] [facility] Calcium [Mass/Vol] 8.3 mg/dL Low 8.6 - 10. 3 mg/dL [facility] Chloride [Moles/Vol] 108 mmol/L High 98 - 10 7 mmol/L [facility] CO2 [Moles/Vol] 26 mmol/L 21 - 31 mmol/L [facility] Creatinine [Mass/Vol] 0.61 mg/dL 0.60 - 1.20 mg/dL [facility] GFR/1.73 sq M.predicted CKD-EPI (S/P/Bld) [Vol rate/Area] 89 - PINF [facility] Comment on above: 2020 CKD EPI Equatio n using Creatinine without Race Comment: Estimated glomerular filtration rate (eGFR) is calculated without a race coefficient. Values should be interpreted in the context of the patient's full clinical presentation. Reference: 1. Raul C, Adalgisa M, Elizabeth MITCHELL, et al.. A Unifying Approach for GFR Estimation: Recommendations of the NKF-ASN Task Force on Reassessing the Inclusion of Race in Diagnosing Kidney Disease. [place] Journal of Kidney Diseases 2021;79(2):268-88.e1. 2. N Engl J Med 1 Vol. 385 Issue 19 Pages 8204-3754 Glucose [Mass/Vol] 98 mg/dL 74 - 109 mg/dL [facility] Potassium [Moles/Vol] 3.8 mmol/L 3.5 - 5.0 mmol/L [facility] Sodium [Moles/Vol] 142 mmol/L 136 - 145 mmol/L [facility] Urea nitrogen [Mass/Vol] 13 mg/dL 7 - 25 mg/dL [facility] Basophil percentageOrdered B y: Jennie Navarro on 01-25-2025 Basophils/100 WBC (Bld) 0.5 % 0-1 [facility] CBC W/Diff, Automatedon 01-07 Hemoglobin (Bld) [Mass/Vol] 6.0 g/dL Invalid Interpretation Code 12.0-15.0 [facility] Comment on above: Result Comment: CRIT ICAL VALUE CALLED TO TEDDY 01/25/25 0447 Kam Guillermo. RESULTS READ BACK BY SAME. Performed By: #### L 500.3400 #### [facility] [address] [place], [address] Absolute Lymph 1.53 X10 3/uL Normal 0.83-4.51 [facility] Comment on above: Performed By: #### L [id number] #### [facility] [address] [place], [address] Absolute Neut 5.2 X10 3/uL Normal 2.0-7.7 [facility] Comment on above: Performed By: #### L [id number] #### [facility] [address] [place], [address] Basophils/100 WBC (Bld) 0.5 % Normal 0-1 [facility] Comment on above: Performed By: #### L [id number] #### [facility] [address] [place], [address] Eosinophils/100 WBC (Bld) 1.0 % Normal 0-5 [facility] Comment on above: Performed By: #### L [id number] #### [facility] [address] [place], [address] Erythrocyte distribution width (RBC) [Ratio] 15.8 % High 11.6-14.6 [facility] Comment on above: Performed By: #### L [id number] #### [facility] [address] [place], [address] Hematocrit (Bld) [Volume fraction] 20.9 % Low 37-47 [facility] Comment on above: Performed By: #### L [id number] #### [facility] [address] [place], [address] IG% 0.300 Normal 0.0-0.9 [facility] Comment on above: Result Comment: IG% - Immature Granulocytes (promyelocytes, myelocytes and metamyelocytes) > 1% indicates that a LEFT SHIFT is Present. Performed By: #### L [id number] #### [facility] [address] [place] [address] [place], [address] Lymphocytes/100 WBC (Bld) 19.2 % Normal 19-41 [facility] Comment on above: Performed By: #### L [id number] #### [facility] [address] [place], [address] MCH (RBC) [Entitic mass] 20.9 pg Low 27.0-32.0 [facility] Comment on above: Performed By: #### L [id number] #### [facility] [address] [place], [address] MCHC (RBC) [Mass/Vol] 28.7 g/dL Low 32-36 [facility] Comment on above: Performed By: #### L [id number] #### [facility] [address] [place], [address] MCV (RBC) [Entitic vol] 72.8 fL Low 81-99 [facility] Comment on above: Performed By: #### L [id number] #### [facility] [address] [place], [address] Monocytes/100 WBC (Bld) 14.1 % High 0-10 [facility] Comment on above: Performed By: #### L [id number] #### [facility] [address] [place], [address] Neutrophils/100 WBC (Bld) 64.9 % Normal 47-70 [facility] Comment on above: Performed By: #### L [id number] #### [facility] [address] [place], [address] Nucleated RBC (Bld) [#/Vol] 0 10*3/uL Normal 0-5 [facility] Comment on above: Performed By: #### L [id number] #### [facility] [address] [place], [address] Platelet mean volume (Bld) [Entitic vol] 10.6 fL Normal 6.2-12.0 [facility] Comment on above: Performed By: #### L [id number] #### [facility] [address] [place], [address] Platelets (Bld) [#/Vol] 232 10*3/uL Normal 150-450 [facility] Comment on above: Performed By: #### L [id number] #### [facility] [address] [place], [address] RBC (Bld) [#/Vol] 2.87 10*6/uL Low 4.2-5.4 [facility] Comment on above: Performed By: #### L [id number] #### [facility] [address] [place], [address] RDW SD 41.3 fl Normal 35.1-43.9 [facility] Comment on above: Performed By: #### L [id number] #### [facility] [address] [place], [place], [address] WBC (Bld) [#/Vol] 8.0 10*3/uL Normal 4.4-11.0 [facility] Comment on above: Performed By: #### L [id number] #### [facility] [address] [place], [address] CBC WITH DIFFERENTIALOrdered By: Terri Simon on 01-25-2025 Basophils (Bld) [#/Vol] 0.08 10*3/uL 0.00 - 0.20 K/uL [facility] Basophils/100 WBC (Bld) 1.1 % NINF - 1.9 % [facility] Eosinophils (Bld) [#/Vol] 0.06 10*3/uL 0.00 - 0.70 K/uL [facility] Eosinophils/100 WBC (Bld) 0.8 % 0.1 - 4.0 % [facility] Erythrocyte distribution width (RBC) [Ratio] 19.7 % High 11.5 - 14.5 % [facility] Hematocrit (Bld) [Volume fraction] 28.2 % Low 36.0 - 46.0 % [facility] Hemoglobin (Bld) [Mass/Vol] 9 g/dL Low 12.0 - 15.0 g/dL [facility] Interpretation and review of laboratory results Abnormal [facility] Lymphocytes (Bld) [#/Vol] 1.2 10*3/uL 1.00 - 4.80 K/uL [facility] Lymphocytes/100 WBC (Bld) 15.4 % Low 24.0 - 44.0 % [facility] MCH (RBC) [Entitic mass] 23.4 pg Low 26.0 - 34.0 pg [facility] MCHC (RBC) [Mass/Vol] 32.1 g/dL 32.0 - 35.9 g/dL [facility] MCV (RBC) [Entitic vol] 73 fL Low 80 - 100 fL [facility] Monocytes (Bld) [#/Vol] 0.88 10*3/uL 0.20 - 1.00 K/uL [facility] Monocytes/100 WBC (Bld) 11.4 % High 2.0 - 11.0 % [facility] Neutrophils (Bld) [#/Vol] 5.53 10*3/uL 1.50 - 8.00 K/uL [facility] Neutrophils/100 WBC (Bld) 71.3 % 31.0 - 76.0 % [facility] Platelet mean volume (Bld) [Entitic vol] 8 fL 7.5 - 11.2 fL [facility] Platelets (Bld) [#/Vol] 189 10*3/uL 150 - 400 K/uL [facility] RBC (Bld) [#/Vol] 3.86 10*6/uL Low [facility] WBC (Bld) [#/Vol] 7.8 10*3/uL 4.5 - 11.5 K/uL [facility] CBC WITH DIFFERENTIALon 01-07 Basophils (Bld) [#/Vol] 0.08 10*3/uL Normal 0.00-0.20 [facility] Comment on above: Performed By: #### Aruna Olivas CH8 #### [facility] [address] [place] [address], Basophils/100 WBC (Bld) 1.1 % Normal <=1.9 [facility] Comment on above: Performed By: #### Aruna Olivas CH8 #### [facility] [address] [place] [address], Eosinophils (Bld) [#/Vol] 0.06 10*3/uL Normal 0.00-0.70 [facility] Comment on above: Performed By: #### Aruna Olivas CH8 #### [facility] [address] [place] [address], Eosinophils/100 WBC (Bld) 0.8 % Normal 0.1-4.0 [facility] Comment on above: Performed By: #### Aruna Olivas CH8 #### [facility] [address] [place] [address], Erythrocyte distribution width (RBC) [Ratio] 19.7 % High 11.5-14.5 [facility] Comment on above: Performed By: #### Aruna Olivas CH8 #### [facility] [address] [place] [address], Hematocrit (Bld) [Volume fraction] 28.2 % Low 36.0-46.0 [facility] Comment on above: Performed By: #### Aruna Olivas, CH8 #### [facility] PATHOLOGY LABORATORY [address] [place] [address], Hemoglobin (Bld) [Mass/Vol] 9.0 g/dL Low 12.0-15.0 [facility] Comment on above: Performed By: #### Aruna Olivas, CH8 #### [facility] [address] [place] [address], Lymphocytes (Bld) [#/Vol] 1.20 10*3/uL Normal 1.00-4.80 [facility] Comment on above: Performed By: #### Aruna Olivas, CH8 #### [facility] [address] [place] [address], Lymphocytes/100 WBC (Bld) 15.4 % Low 24.0-44.0 [facility] Comment on above: Performed By: #### Aruna Olivas, CH8 #### [facility] [address] [place] [address], MCH (RBC) [Entitic mass] 23.4 pg Low 26.0-34.0 [facility] Comment on above: Performed By: #### Aruna Olivas, CH8 #### [facility] [address] [place] [address], MCHC (RBC) [Mass/Vol] 32.1 g/dL Normal 32.0-35.9 [facility] Comment on above: Performed By: #### Aruna Olivas, CH8 #### [facility] [address] [place] [address], MCV (RBC) [Entitic vol] 73 fL Low 80-100 [facility] Comment on above: Performed By: #### Aruna Olivas, CH8 #### [facility] [address] [place] [address], Monocytes (Bld) [#/Vol] 0.88 10*3/uL Normal 0.20-1.00 [facility] Comment on above: Performed By: #### Aruna Olivas, CH8 #### [facility] [place], [place], Monocytes/100 WBC (Bld) 11.4 % High 2.0-11.0 [facility] Comment on above: Performed By: #### Aruna Olivas, CH8 #### [facility] [address] [place] [address], Neutrophils (Bld) [#/Vol] 5.53 10*3/uL Normal 1.50-8.00 [facility] Comment on above: Performed By: #### Aruna Olivas, CH8 #### [facility] [address] [place], [place], Neutrophils/100 WBC (Bld) 71.3 % Normal 31.0-76.0 [facility] Comment on above: Performed By: #### Aruna Olivas, CH8 #### [facility] [address] [place] [address], Platelet mean volume (Bld) [Entitic vol] 8.0 fL Normal 7.5-11.2 [facility] Comment on above: Performed By: #### Aruna Olivas, CH8 #### [facility] [address] [place], [place], Platelets (Bld) [#/Vol] 189 10*3/uL Normal 150-400 [facility] Comment on above: Performed By: #### Aruna Olivas, CH8 #### [facility] [address] [place] [address], RBC (Bld) [#/Vol] 3.86 10*6/uL Low 4.00-5.20 [facility] Comment on above: Performed By: #### Aruna Olivas, CH8 #### [facility] [address] [place], [place], WBC (Bld) [#/Vol] 7.8 10*3/uL Normal 4.5-11.5 [facility] Comment on above: Performed By: #### Aruna Olivas, CH8 #### [facility] [address] [place] [address], CBC panel Auto (Bld)on 01-25 Erythrocyte distribution width (RBC) [Ratio] 19.8 % High 11.5 - 14.5 % [facility] Hematocrit (Bld) [Volume fraction] 29.7 % Low 36.0 - 46.0 % [facility] Hemoglobin (Bld) [Mass/Vol] 9.8 g/dL Low 12.0 - 15.0 g/dL [facility] Interpretation and review of laboratory results Abnormal [facility] MCH (RBC) [Entitic mass] 23.8 pg Low 26.0 - 34.0 pg [facility] MCHC (RBC) [Mass/Vol] 33 g/dL 32.0 - 35.9 g/dL [facility] MCV (RBC) [Entitic vol] 72 fL Low 80 - 100 fL [facility] Platelet mean volume (Bld) [Entitic vol] 8.5 fL 7.5 - 11.2 fL [facility] Platelets (Bld) [#/Vol] 221 10*3/uL 150 - 400 K/uL [facility] RBC (Bld) [#/Vol] 4.11 10*6/uL [facility] WBC (Bld) [#/Vol] 10.2 10*3/uL 4.5 - 11.5 K/uL [facility] CBC-Complete Blood Cnt No Di ffon 01-25-2025 HCT Normal 37-47 [facility] Comment on above: Order Comment: 155 Result Comment: [facility] Performed By: #### L [id number] #### [facility] Laboratory [address] [place], [place], [id number] (932) HGB Normal 12.0-15.0 [facility] Comment on above: Order Comment: 155 Result Comment: [facility] Performed By: #### L [id number] #### [facility] Laboratory [address] [place], [address] MCH Normal 27.0-32.0 [facility] Comment on above: Order Comment: 155 Result Comment: [facility] Performed By: #### L [id number] #### [facility] [address] [place], [address] MCHC Normal 32-36 [facility] Comment on above: Order Comment: 155 Result Comment: [facility] Performed By: #### L [id number] #### [facility] Laboratory [address] [place], [address] MCV Normal 81-99 [facility] Comment on above: Order Comment: 155 Result Comment: [facility] Performed By: #### L [id number] #### [facility] [address] [place], [address] PLT Normal 150-450 [facility] Comment on above: Order Comment: 155 Result Comment: [facility] Performed By: #### L [id number] #### [facility] [address] [place], [address] RBC Normal 4.2-5.4 [facility] Comment on above: Order Comment: 155 Result Comment: [facility] Performed By: #### L [id number] #### [facility] [address] [place], [address] RDW CV Normal 11.6-14.6 [facility] Comment on above: Order Comment: 155 Result Comment: [facility] Performed By: #### L [id number] #### [facility] [address] [place], [address] RDW SD Normal 35.1-43.9 [facility] Comment on above: Order Comment: 155 Result Comment: [facility] Performed By: #### L [id number] #### [facility] [address] [place], [address] WBC Normal 4.4-11.0 [facility] Comment on above: Order Comment: 155 Result Comment: [facility] Performed By: #### L [id number] #### [facility] [address] [place], [address] COMPLETE BLOOD COUNTon 01-25 Erythrocyte distribution width (RBC) [Ratio] 19.8 % High 11.5-14.5 [facility] Comment on above: Performed By: #### Aruna Olivas, CH8 #### [facility] [address] [place] [address], Hematocrit (Bld) [Volume fraction] 29.7 % Low 36.0-46.0 [facility] Comment on above: Performed By: #### Aruna Olivas, CH8 #### [facility] [address] [place] [address], Hemoglobin (Bld) [Mass/Vol] 9.8 g/dL Low 12.0-15.0 [facility] Comment on above: Performed By: #### Aruna Olivas, CH8 #### [facility] [address] [place] [address], MCH (RBC) [Entitic mass] 23.8 pg Low 26.0-34.0 [facility] Comment on above: Performed By: #### Aruna Olivas, CH8 #### [facility] [address] [place] [address], MCHC (RBC) [Mass/Vol] 33.0 g/dL Normal 32.0-35.9 [facility] Comment on above: Performed By: #### Aruna Olivas, CH8 #### [facility] [address] [place] [address], MCV (RBC) [Entitic vol] 72 fL Low 80-100 [facility] Comment on above: Performed By: #### Aruna Olivas, CH8 #### [facility] [address] [place] [address], Platelet mean volume (Bld) [Entitic vol] 8.5 fL Normal 7.5-11.2 [facility] Comment on above: Performed By: #### Aruna Olivas, CH8 #### [facility] [address] [place] [address], Platelets (Bld) [#/Vol] 221 10*3/uL Normal 150-400 [facility] Comment on above: Performed By: #### Aruna Olivas, CH8 #### [facility] [address] [place] [address], RBC (Bld) [#/Vol] 4.11 10*6/uL Normal 4.00-5.20 [facility] Comment on above: Performed By: #### M RODRIGUEZ Olivas8 #### [facility] [address] [place], [place], WBC (Bld) [#/Vol] 10.2 10*3/uL Normal 4.5-11.5 [facility] Comment on above: Performed By: #### Aruna Olivas CH8 #### [facility] [address] [place], [place], CONFIRMATION ABO/RHon 2024 Specimen Expiration Date [id number] [facility] CTA ABDOMEN + PELVIS W/on CTA ABDOMEN + PELVIS W/ EXAMINATION: CTA ABDOMEN + PELVIS W/ 01/25/2025 04:09 PM CLINICAL HISTORY: Aneurysm; 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 Coronal and sagittal multiplanar reconstructions and sagittal and coronal 3D maximum intensity projections were reconstructed from the axial data. Before infusion of intravenous contrast, radiology personnel investigated the possibility of an allergic history and of any history of reaction to iodinated contrast material. Contrast Protocol: Omnipaque 350 [>or =100lb] 100 ml [<100 lb] 1 ml per 1 lb. INTRA-PROCEDURE MEDS: iohexol (OMNIPAQUE) 350 MG/ML injection 100 mL Route: Intravenous FINDINGS: CTA ABDOMEN AORTA AND BRANCHES Atherosclerosis of the abdominal aorta and branch vessels. 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 No abdominal aortic aneurysm. Celiac axis: No significant stenosis. SMA: No significant stenosis. SANTY: No significant stenosis. Right renal vessels: No significant stenosis. Left renal vessels: No significant stenosis. Infrarenal aorta: No significant stenosis. CTA PELVIC VESSELS R. Common iliac artery: No significant stenosis. R. External iliac artery: No significant stenosis. R. Internal iliac artery: No significant stenosis. L. Common iliac artery: No significant stenosis. L. External iliac artery: No significant stenosis. L. Internal iliac artery: No significant stenosis. NON-VASCULAR FINDINGS Included images of the lower thorax: No focal lung consolidation or pleural effusion. Bilateral dependent atelectasis. Coronary artery calcifications are present. Hepatobiliary: Unremarkable liver without biliary dilation. Cholelithiasis without CT evidence of acute cholecystitis. Additional hyperdense material within the gallbladder likely represents vicarious excretion of contrast. Pancreas: Unremarkable Spleen: Unremarkable Adrenal Glands: Unremarkable Kidneys, ureters, and bladder: No hydroureteronephrosis. Suboptimal evaluation for renal calculi given the presence of contrast in the collecting systems. The urinary bladder is dilated and opacified with contrast. GI tract: No evidence of obstruction. The appendix is within normal limits. Hyperdense material within the bowel, either contrast or ingested contents. Peritoneum and retroperitoneum: No free fluid or free air is noted. Large right inguinal hernia containing fat and portions of the small bowel, without evidence of upstream obstruction. Lymph Nodes: No abdominal or pelvic lymphadenopathy is evident Uterus and adnexa: Not well evaluated by CT. Visualized musculoskeletal structures: Chronic appearing T12 vertebral body compression fracture. Healed fracture deformity of the right inferior pubic ramus and the right ilium. Multilevel discogenic degenerative disease and facet arthrosis, without significant listhesis. IMPRESSION: 1. 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 2. Chronic ancillary findings as above. MACRO: None Normal [facility] CTA Abdominal vessels and Pe lvis vessels WO and W contrast IVOrdered By: Aliza Saleh on 01-25-2025 CT DLP 985.85 (mGy.cm) [facility] Work Phone: CT Series Topogram,Topogram,AB D PEL WO,PreMonitoring ,Monitoring,CTA ABD PEL ,70s DELAY [facility] Work Phone: CTDI VOL 0.01 (mGy),0.01 (mGy),6.46 (mGy),0.79 (mGy),2.37 (mGy),6.32 (mGy),6.13 (mGy) [facility] Work Phone: PHANTOM TYPE IEC Body Dosimetry Phantom,IEC Body Dosimetry Phantom,IEC Body Dosimetry Phantom,IEC Body Dosimetry Phantom,IEC Body Dosimetry Phantom,IEC Body Dosimetry Phantom,IEC Body Dosimetry Phantom [facility] Work Phone: [facility] Work Phone: CTA Abdominal vessels and Pe lvis vessels WO and W contrast Oneal 01-25-2025 EXAMINATION: CTA ABDOMEN + PELVIS W/ 01/25/2025 04:09 PM CLINICAL HISTORY: Aneurysm; 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 Coronal and sagittal multiplanar reconstructions and sagittal and coronal 3D maximum intensity projections were reconstructed from the axial data. Before infusion of intravenous contrast, radiology personnel investigated the possibility of an allergic history and of any history of reaction to iodinated contrast material. Contrast Protocol: Omnipaque 350 [>or =100lb] 100 ml [<100 lb] 1 ml per 1 lb. INTRA-PROCEDURE MEDS: iohexol (OMNIPAQUE) 350 MG/ML injection 100 mL Route: Intravenous FINDINGS: CTA ABDOMEN AORTA AND BRANCHES Atherosclerosis of the abdominal aorta and branch vessels. 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 No abdominal aortic aneurysm. Celiac axis: No significant stenosis. SMA: No significant stenosis. SANTY: No significant stenosis. Right renal vessels: No significant stenosis. Left renal vessels: No significant stenosis. Infrarenal aorta: No significant stenosis. CTA PELVIC VESSELS R. Common iliac artery: No significant stenosis. R. External iliac artery: No significant stenosis. R. Internal iliac artery: No significant stenosis. L. Common iliac artery: No significant stenosis. L. External iliac artery: No significant stenosis. L. Internal iliac artery: No significant stenosis. NON-VASCULAR FINDINGS Included images of the lower thorax: No focal lung consolidation or pleural effusion. Bilateral dependent atelectasis. Coronary artery calcifications are present. Hepatobiliary: Unremarkable liver without biliary dilation. Cholelithiasis without CT evidence of acute cholecystitis. Additional hyperdense material within the gallbladder likely represents vicarious excretion of contrast. Pancreas: Unremarkable Spleen: Unremarkable Adrenal Glands: Unremarkable Kidneys, ureters, and bladder: No hydroureteronephrosis. Suboptimal evaluation for renal calculi given the presence of contrast in the collecting systems. The urinary bladder is dilated and opacified with contrast. GI tract: No evidence of obstruction. The appendix is within normal limits. Hyperdense material within the bowel, either contrast or ingested contents. Peritoneum and retroperitoneum: No free fluid or free air is noted. Large right inguinal hernia containing fat and portions of the small bowel, without evidence of upstream obstruction. Lymph Nodes: No abdominal or pelvic lymphadenopathy is evident Uterus and adnexa: Not well evaluated by CT. Visualized musculoskeletal structures: Chronic appearing T12 vertebral body compression fracture. Healed fracture deformity of the right inferior pubic ramus and the right ilium. Multilevel discogenic degenerative disease and facet arthrosis, without significant listhesis. IMPRESSION: 1. 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 2. Chronic ancillary findings as above. 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 Coronal and sagittal multiplanar reconstructions and sagittal and coronal 3D maximum intensity projections were reconstructed from the axial data. Before infusion of intravenous contrast, radiology personnel investigated the possibility of an allergic history and of any history of reaction to iodinated contrast material. Contrast Protocol: Omnipaque 350 [>or =100lb] 100 ml [<100 lb] 1 ml per 1 lb. INTRA-PROCEDURE MEDS: iohexol (OMNIPAQUE) 350 MG/ML injection 100 mL Route: Intravenous FINDINGS: CTA ABDOMEN AORTA AND BRANCHES Atherosclerosis of the abdominal aorta and branch vessels. 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 No abdominal aortic aneurysm. Celiac axis: No significant stenosis. SMA: No significant stenosis. SANTY: No significant stenosis. Right renal vessels: No significant stenosis. Left renal vessels: No significant stenosis. Infrarenal aorta: No significant stenosis. CTA PELVIC VESSELS R. Common iliac artery: No significant stenosis. R. External iliac artery: No significant stenosis. R. Internal iliac artery: No significant stenosis. L. Common iliac artery: No significant stenosis. L. External iliac artery: No significant stenosis. L. Internal iliac artery: No significant stenosis. NON-VASCULAR FINDINGS Included images of the lower thorax: No focal lung consolidation or pleural effusion. Bilateral dependent atelectasis. Coronary artery calcifications are present. Hepatobiliary: Unremarkable liver without biliary dilation. Cholelithiasis without CT evidence of acute cholecystitis. Additional hyperdense material within the gallbladder likely represents vicarious excretion of contrast. Pancreas: Unremarkable Spleen: Unremarkable Adrenal Glands: Unremarkable Kidneys, ureters, and bladder: No hydroureteronephrosis. Suboptimal evaluation for renal calculi given the presence of contrast in the collecting systems. The urinary bladder is dilated and opacified with contrast. GI tract: No evidence of obstruction. The appendix is within normal limits. Hyperdense material within the bowel, either contrast or ingested contents. Peritoneum and retroperitoneum: No free fluid or free air is noted. Large right inguinal hernia containing fat and portions of the small bowel, without evidence of upstream obstruction. Lymph Nodes: No abdominal or pelvic lymphadenopathy is evident Uterus and adnexa: Not well evaluated by CT. Visualized musculoskeletal structures: Chronic appearing T12 vertebral body compression fracture. Healed fracture deformity of the right inferior pubic ramus and the right ilium. Multilevel discogenic degenerative disease and facet arthrosis, without significant listhesis. IMPRESSION: 1. 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 2. Chronic ancillary findings as above. MACRO: None [facility] Radiology Study observation (narrative) [facility] Consultson 01-25-[address]25 [address] Mechanical Engineer Authentication Interface Message Text Interventional Radiology Consult Date: 01/25/25 Name: Ely Hurtado Reason for Consult: Hepatic proper saccular aneurysm Assessment AND Plan Assessment AND Plan Ely Hurtado is a 84 year old female here for rectal bleeding. 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 Patient currently scheduled to have a scope with GI tomorrow. Pressures are soft, hgb 9, no tachycardia. Upon review of the images with attending physician, The CTA was negative for bleed that IR could address. We recommend GI scope and stabilizing the patient pending IR intervention for the saccular aneurysm. Plan No acute intervention at this time Given negative CTA recommend GI scope for rectal bleeding Agree with holding home AC/AP Trend hgb, Hgb > 7, transfuse PRN Thank you for including us in this patient's care plan. Please contact IR once the patient's primary reason for hospitalization has resolved. The patient and the plan was discussed with the oncall attending Tristan Garrison DO. Subjective Subjective Ely Hurtado is a 84 year old female here for rectal bleeding. Interventional radiology was consulted for saccular aneurysm of hepatic proper noted on OSH exam. Allergies Allergies[1] Past medical History There is no previous medical history on file. Past Surgical History Surgical History[2] Objective Objective BP 104/68 (BP Location: left arm) Pulse 81 Temp 97.5 ???F (36.4 ???C) (Oral) Resp 23 Ht 5' 9" (1.753 m) Wt 135 lb 2.3 oz (61.3 kg) SpO2 95% BMI 19.96 kg/m??? BMP (last 1 year, up to 8 values) 01/25/2025 1:22 PM Na 142 K 3.8 Cl 108 CO2 26 Gap 12 Glu 98 BUN 13 Cr 0.61 Ca 8.3 eGFR 89 Mg 2.0 CBC 01/25/2025 1:22 PM WBC 7.8 RBC 3.86 Hgb 9.0 Hct 28.2 MCV 73 RDW 19.7 Plt 189 PT/INR 01/25/2025 1:58 PM INR 1.22 [1] Not on File [2] No past surgical history on file. Normal [facility] EKG 12 LEAD - PERFORMon 01-07 Diagnosis Normal sinus rhythm Left axis deviation Low voltage QRS, consider pulmonary disease, pericardial effusion, or normal variant Incomplete right bundle branch block Inferior infarct , age undetermined Abnormal ECG Confirmed by Layne Delgado ([id number]) on 01/25/2025 5:27:19 PM [facility] P wave Atrium by EKG 82 BPM [facility] P wave axis 16 degrees [facility] P-R Interval 174 ms [facility] Q-T interval 436 ms [facility] Q-T interval corrected 509 ms [facility] QRS axis -40 degrees [facility] QRS duration 102 ms [facility] T wave axis -10 degrees [facility] Eosinophil percentageOrdered By: Jennie Navarro on 01-25-2025 Eosinophils/100 WBC (Bld) 1.0 % 0-5 [facility] Erythrocyte distribution wid th ratioOrdered By: Jennie Navarro on 01-25-2025 Erythrocyte distribution width (RBC) [Ratio] 15.8 % High 11.6-14.6 [facility] Erythrocyte distribution wid th standard deviationOrdered By: Jennie Navarro on 01-25-2025 Erythrocyte distribution width (RBC) [Ratio] 41.3 fl 35.1-43.9 [facility] H AND Luis Felipe 01-25-2025 Rd Mechanical Engineer Authentication Interface Message Text .[facility] Step Down Unit - H AND P Patient: Ely Hurtado : 1940 Sex: female Room: [place] [id number] Admission: 01/25/2025 Today: 01/25/2025 (Length of stay: 1 day(s)) HISTORY OF PRESENT ILLNESS: CHIEF COMPLAINT: No chief complaint on file. 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 Patient who currently resides at [facility] ([facility]) where she was found to have significant bright red blood in her stool following multiple episodes of diarrhea on the morning of 01/24. They were transferred to the [facility] ED later that day for further evaluation. On presentation BP was 146/83, HR 104. CBC notable for drop og Hb from 11 3 months ago to 8.2. Repeated CBC showed a further drop of Hgb to 6.2. 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 Patient admitted directly to SDU and transfused w/ 2 units of pRBC prior to transfer. On presentation to the floors, patient is vitally stable and in no acute distress. Reported that they had a one day episode of bloody stools Axox2 at baseline and during admission. Patient does not endorse acute issues and has not had a BM since arriving. Not endorsing fever, chills, SOB, n/v, lightheadedness or headaches. [facility] ED Course: - VS: BP 125/79 HR 100 - Labs: HgB 6, Lactate 2 - EKG: NSR w/ PVC and incomplete RBBB - Imaging: CT ABD/pelvis - Interventions: IV protnix, 2u pRBC, IvF ROS: As noted in HPI PAST MEDICAL HISTORY: Medical History[1] Surgical History[2] Family History[3] Social History[4] Medications Ordered Prior to Encounter[5] Allergies[6] Home Meds: Meds: Apixiban 5mg, Atorvastain 10 mg, Vitamin D, Furosemide 40 mg, Kcl 20mg OBJECTIVE: Objective Temperature: [97.5 ???F (36.4 ???C)-97.8 ???F (36.6 ???C)] 97.5 ???F (36.4 ???C) Heart Rate: [77-92] 87 Respiratory Rate: [13-32] 32 BP: (99-118)/(70-91) 118/70 O2 Device: Room air at 96 % Intake/Output Summary (Last 24 hours) at 01/25/2025 1654 Last data filed at 01/25/2025 1600 Gross per 24 hour Intake 0 ml Output 1000 ml Net -1000 ml LABS: CBC: (01/25/2025: 1:22 PM) WBC 7.8 Hgb 9.0 / Plt 189 / Hct 28.2 Results Review BMP: (01/25/2025: 1:22 PM) 142 108 13 Gluc 98 3.8 26 0.61 Mg PO4 Ca 2.0 N/A 8.3 (1.6-2.8) (2.5-4.8) (8.4-10) Baseline Weight Unknown Admission Weight Weight: 135 lb 2.3 oz (61.3 kg) Today's Weight Weight: 135 lb 2.3 oz (61.3 kg) BMI 19.96 PHYSICAL EXAM: General: NAD. Frail HEENT: EOMI. Conjunctiva clear. No scleral icterus. Heart: RRR. No murmurs or rub. Lungs: CTAB. Abdomen: Soft. Non-tender. Non-distended. Extremities: No LE edema. Circumferential bruising around bilateral ankle Neuro: No focal deficits. A AND Ox2(Year) Skin: Warm AND dry. 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 PROBLEM LIST: Neuro AxOx2 at [facility] per OSH notes. Cardiology -No Acute concerns at this time Pulmonary No Acute concerns Gastrointestinal #Rectal Bleeding #Hepatic Aneurysm/pseudoaneurysm -CBC OSH 6 ->9 admission s/p 2u pRBC at OSH -Lactic Acid on admission 1 from 2 at OSH -PT/NR 13.7 and 1.22 -CT notable for hepatic aneurysm that needs IR consult, formal images not sent from OSH. Plan -Daily CBC -IV Protonix 40 mg daily. -CT Abd/pelvis w/wo contrast pending, IR to follow and give management recs. Infectious Disease No acute concern Renal #Urinary retention -Patient state they don't want to urinate and required straight cath which gave 1L of urine output -Will likely need gamez inserted for this evening as they are getting 4L for bowel prep. Hem/Onc #Rectal Bleeding #ANemia -GI plan to scope tomorrow Plan: -Bowel Prep tonight -Holding home Eliquis, last dose 01/23 -Restarted on home Statin Endocrine No acute Concerns -Elevated total and direct bili 2.5/0.42 -Evidence of cholestasis on OSH imaging but no abdominal pain described by patient -CTM MSK/Rheum No Acute cncern Feeding NPO Analgesia None Sedation N/A VTE ppx SCD HOB Eval 30 Degrees Ulcer ppx Protonix 40 Glycemic Control Target 140-180 (more content not included)... Normal [facility] HEPATIC FUNCTION PANELon Albumin [Mass/Vol] 3.4 g/dL Low 3.5 - 5.7 g/dL [facility] ALP [Catalytic activity/Vol] 52 U/L [facility] ALT [Catalytic activity/Vol] 7 U/L [facility] AST [Catalytic activity/Vol] 15 U/L [facility] Bilirubin [Mass/Vol] 2.5 mg/dL High 0.3 - 1 .0 mg/dL [facility] Bilirubin.direct [Mass/Vol] 0.42 mg/dL High 0.03 - 0.18 mg/dL [facility] Protein [Mass/Vol] 5.1 g/dL Low 6.0 - 8.3 g/dL [facility] Albumin [Mass/Vol] 3.4 g/dL Low 3.5-5.7 [facility] Comment on above: Performed By: #### C H8, HEPATIC, MG #### [facility] [address] [place] [address], ALK 52 IU/L Normal 34-104 [facility] Comment on above: Performed By: #### C H8, HEPATIC, MG #### [facility] [address] [place] [address], ALT [Catalytic activity/Vol] 7 U/L Normal 7-52 [facility] Comment on above: Performed By: #### Raquel H8, HEPATIC, MG #### [facility] [address] [place] [address], AST [Catalytic activity/Vol] 15 U/L Normal 13-39 [facility] Comment on above: Performed By: #### C H8, HEPATIC, MG #### [facility] [address] [place] [address], Bilirubin [Mass/Vol] 2.5 mg/dL High 0.3-1.0 [facility] Comment on above: Performed By: #### C H8, HEPATIC, MG #### [facility] [address] [place] [address], Bilirubin.direct [Mass/Vol] 0.42 mg/dL High 0.03-0.18 [facility] Comment on above: Performed By: #### C H8, HEPATIC, MG #### [facility] [address] [place], [place], Protein [Mass/Vol] 5.1 g/dL Low 6.0-8.3 [facility] Comment on above: Performed By: #### C H8, HEPATIC, MG #### [facility] [address] [place], [place], Hematocrit Auto (Bld) [Volum e fraction]Ordered By: Jennie Navarro on 01-25-2025 Hematocrit (Bld) [Volume fraction] 20.9 % Low 37-47 [facility] Hemoglobin measurementOrdere d By: Jennie Navarro on 01-25-2025 Hemoglobin (Bld) [Mass/Vol] 6.0 g/dL Low 12.0-15.0 [facility] Comment on above: CRITICAL VALUE PRINCE D TO UIFAWURB17/19/25 0447 Kam Guillermo.RESULTS READ BACK BY SAME. Immature granulocytes/100 WB C Auto (Bld)Ordered By: Jennie Navarro on 01-25-2025 Immature granulocytes/100 WBC (Bld) 0.300 % 0.0-0.9 [facility] Comment on above: IG% - Immature Granu locytes (promyelocytes, myelocytes and metamyelocytes) > 1% indicates that a LEFT SHIFT is Present. LACTIC ACIDOrdered By: Tammy Riggs on 01-25-2025 Interpretation and review of laboratory results Normal [facility] Lactate [Moles/Vol] 1 mmol/L 0.5 - 1. 6 mmol/L [facility] This test was developed, and its performance characteristics determined by the Department of Pathology of [facility]. It has not been cleared or approved by the FDA. This test is used for clinical purposes only. [facility] LACTIC ACIDon 01-25-2025 CR LACT 1.0 mmol/L Normal 0.5-1.6 [facility] Comment on above: Order Comment: This test was developed, and its performance characteristics determined by the Department of Pathology of [facility]. It has not been cleared or approved by the FDA. This test is used for clinical purposes only. Performed By: #### L ACT #### [facility] [address] [place], [place], Laboratory - Blood bankon ABO and Rh group Nom (Bld) Blood group O Rh(D) positive [facility] Lactic Acidon 01-25-2025 Lactate [Moles/Vol] 1.3 mmol/L Normal 0.0-2.0 [facility] Comment on above: Performed By: #### L 500.3400 #### [facility] [address] [place], [address] Lactate [Moles/Vol] 2.0 mmol/L Normal 0.0-2.0 [facility] Comment on above: Order Comment: 155 Result Comment: Crit ical Result(s) Called at: 0459 by:??JESSICA HAVEN TO MAKENZIE SPARR Results read back by same. Performed By: #### L 500.3400 #### [facility] [address] [place], [address] Lactic acid measurementOrder ed By: Jennie Navarro on 01-25-2025 Lactate [Moles/Vol] 2.0 mmol/L 0.0-2.0 [facility] Comment on above: Critical Result(s) C alled at: 0459 by: JESSICA HAVEN TO MAKENZIE SPARR Results read back by same. MAGNESIUMon 01-25-2025 Interpretation and review of laboratory results Normal [facility] Magnesium [Mass/Vol] 2 mg/dL 1.9 - 2 .7 mg/dL [facility] Magnesium [Mass/Vol] 2.0 mg/dL Normal 1.9-2.7 [facility] Comment on above: Performed By: #### C H8, HEPATIC, MG ####[facility] [address] [place], [place], MANUAL DIFF AND MORPHon 01-07 Cells Counted Total (Bld) [#] [facility] Microcytes Ql (Bld) Slight [facility] Ovalocytes LM Ql (Bld) Few [facility] RBC.hypochromic/100 RBC Auto (Bld) Moderate [facility] CELLS COUNTED TOTAL # IN BLOOD Normal [facility] Comment on above: Performed By: #### M G, CH8 #### [facility] [address] [place], [place], HYPOCHROMASIA Moderate Normal [facility] Comment on above: Performed By: #### M G, CH8 #### [facility] [address] [place], [place], MICROCYTOSIS Slight Normal [facility] Comment on above: Performed By: #### M G, CH8 #### [facility] [address] [place], [place], OVALOCYTES Few Normal [facility] Comment on above: Performed By: #### M G, CH8 #### [facility] [address] [place], [place], MCV (mean corpuscular volume ) determinationOrdered By: Jennie Navarro on 01-25-2025 MCV (RBC) [Entitic vol] 72.8 fL Low 81-99 [facility] Mean corpuscular hemoglobin (MCH) determinationOrdered By: Jennie Navarro on 01-25-2025 MCH (RBC) [Entitic mass] 20.9 pg Low 27.0-32.0 [facility] Mean corpuscular hemoglobin concentration (MCHC) determinationOrdered By: Jennie Navarro on 01-25-2025 MCHC (RBC) [Mass/Vol] 28.7 g/dL Low 32-36 [facility] Mean platelet volume determi nationOrdered By: Jennie Navarro on 01-25-2025 Platelet mean volume (Bld) [Entitic vol] 10.6 fL 6.2-12.0 [facility] Monocyte percentageOrdered B y: Jennie Navarro on 01-25-2025 Monocytes/100 WBC (Bld) 14.1 % High 0-10 [facility] Neutrophil percentageOrdered By: Jennie Navarro on 01-25-2025 Neutrophils/100 WBC (Bld) 64.9 % 47-70 [facility] No Panel InformationOrdered By: Terri Simon on 01-25-2025 [facility] No Panel Informationon 01-25 Interpretation and review of laboratory results Abnormal [facility] Nucleated red blood cell per centageOrdered By: Jennie Navarro on 01-25-2025 Nucleated RBC/100 WBC (Bld) [Ratio] 0 % 0-5 [facility] PROTHROMBIN TIME AND INRon 0 01-25-2025 INR Coag (PPP) [Relative time] 1.22 {INR} High 0.90 - 1.10 [facility] Interpretation and review of laboratory results Abnormal [facility] PT Coag (PPP) [Time] 13.7 s High [facility] INR Coag (PPP) [Relative time] 1.22 {INR} High 0.90-1.10 [facility] Comment on above: Performed By: #### P T #### [facility] [address] [place], [place], PT Coag (PPP) [Time] 13.7 s High 9.7-12.9 [facility] Comment on above: Performed By: #### P T #### [facility] [address] [place], [place], Platelet countOrdered By: Nicola Navarro on 01-25-2025 Platelets (Bld) [#/Vol] 232 10*3/uL 150-450 [facility] RBC Auto (Bld) [#/Vol]Ordere d By: Jennie Navarro on 01-25-2025 RBC (Bld) [#/Vol] 2.87 10*6/uL Low 4.2-5.4 [facility] TYPE AND SCREENon 01-25-2025 ABO and Rh group Nom (Bld) Blood group O Rh(D) positive [facility] ABO and Rh group Nom (Bld) No Previous Results [facility] Blood group antibody screen Ql Negative [facility] Specimen Expiration Date [id number] [facility] Telephone Encounteron [address] Mechanical Engineer Authentication Interface Message Text I was called by [facility] regarding a transfer from [place]. That facility is requesting transfer because Services not provide. Dr. Rdz The clinical history is 84 y/o F with PMH of DVT on Eliquis presenting with rectal bleed/melena. 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 On protonic gtt. Hgb 11.2 (09/2024)-->8.2 (current) The pertinent labs, vitals signs and imaging are notable for: VS: Afebrile, BP 104/64 HR 85 RR 19 99% on RA CBC: WBC 9.8, hgb 8.2 Plt 335 BMP: No electrolyte derangements. 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 Urgent vascular intervention consult. Large inguinal hernia no bowel obstruction Tx: protonix gtt + IVF The patient was NOT accepted.for transfer pending bed availability with the caveat that patient will continue in clinical stability. Will discuss further pending lactate and repeat hgb. If worsening labs or status may need SDU vs. MICU. The patient was accepted 4:08 AM 01/25/25. If the facility number was unknown or Unavailable at the time of acceptance, [facility] can supply the call back number. The receiving team is responsible for calling the sending facility for provider to provider report if there has been significant delay between the time the patient was accepted and the time the bed was assigned. If there is concern for clinical stability by the receiving team they will call the PIC (physician in charge) to discuss the case. Keyon Fallon DO Division of Hospital Medicine, [facility] Pager#: [phone] Normal [facility] White blood cell (WBC) count Ordered By: Jennie Navarro on 01-25-2025 WBC (Bld) [#/Vol] 8.0 10*3/uL 4.4-11.0 [facility] 12 Lead EKGon 01-24-2025 12 Lead EKG [facility] Cardiovascular Services [address] [place] [address] 12 Lead EKG 01/24/25 2219 MR#: [id number] Acct: [id number] Name: ELY HURTADO Rep #: [id number] : 1940 84 From: Pascual Bonilla MD Attending Dr: Status: DEP ER Ordering Dr: Power Borges DO Date: 01/24/25 Location: ED Sex: F C Admitted: Test Reason : DYSRHYTHMIA Blood Pressure : */* mmHG Vent. Rate : 87 BPM Atrial Rate : 87 BPM P-R Int : 206 ms QRS Dur : 106 ms QT Int : 414 ms P-R-T Axes : 45 -17 12 degrees QTcB Int : 498 ms Sinus rhythm with occasional Premature ventricular complexes Low voltage QRS Incomplete right bundle branch block QTcB >= 480 msec Abnormal ECG Confirmed by BONNY DE SOUZA, PASCUAL ([id number]), avid editor JOSE PEARSON ([id number]) on 01/26/2025 9:35:16 AM Referred By: Confirmed By: PASCUAL BONILLA MD 01/26/25 0935 Date Pascual Bonilla MD CC: Dr. Power Borges, DO; Dianna Guido MD Signed Normal [facility] Activated partial thrombopla stin time (aPTT) in platelet poor plasma by coagulation aOrdered By: Power Borges on 01-24-2025 aPTT Coag (PPP) [Time] 30.3 s 24.1-36.2 [facility] Anion gap in Serum or Plasma Ordered By: Power Borges on 01-24-2025 Anion gap [Moles/Vol] 12 mmol/L 10-21 [facility] BRCon 01-24-2025 RC Normal [facility] Comment on above: Result Comment: [id number] OP RC TRANSFUSED 01/25/25 0738 [id number] OP RC TRANSFUSED 01/25/25 0535 Performed By: #### B RC #### [facility] [address] [place] [address], [id number] BUN/creatinine ratioOrdered By: Power Borges on 01-24-2025 Urea nitrogen/Creatinine [Mass ratio] 18.4 mg/mg - [facility] Basic Metabolic Profile (BMP )on 01-24-2025 BUN/CRE 18.4 RATIO Normal 03-28 [facility] Comment on above: Performed By: #### L 300.4310, L300.3900, M100.7900, BTS, L500.2500, L100.0100 ####[facility] [address] [place], [address] Calcium [Mass/Vol] 9.0 mg/dL Normal 7.6-11.0 [facility] Comment on above: Performed By: #### L 300.4310, L300.3900, M100.7900, BTS, L500.2500, L100.0100 ####[facility] [address] [place], [address] Chloride [Moles/Vol] 103 mmol/L Normal 98-108 [facility] Comment on above: Performed By: #### L 300.4310, L300.3900, M100.7900, BTS, L500.2500, L100.0100 ####[facility] [address] [place], [address] CO2 [Moles/Vol] 24.8 mmol/L Normal 21.0-32.0 [facility] Comment on above: Performed By: #### L 300.4310, L300.3900, M100.7900, BTS, L500.2500, L100.0100 ####[facility] [address] [place], [address] Creatinine [Mass/Vol] 0.84 mg/dL Normal 0.70-1.20 [facility] Comment on above: Performed By: #### L 300.4310, L300.3900, M100.7900, BTS, L500.2500, L100.0100 ####[facility] [address] [place], [address] ECRCL 48.18 ml/min Low 50-250 [facility] Comment on above: Performed By: #### L 300.4310, L300.3900, M100.7900, BTS, L500.2500, L100.0100 ####[facility] [address] [place], [address] GAP 12 Normal 5-15 [facility] Comment on above: Performed By: #### L 300.4310, L300.3900, M100.7900, BTS, L500.2500, L100.0100 ####[facility] [address] [place], [address] GFR/1.73 sq M.predicted among non-blacks MDRD (S/P/Bld) [Vol rate/Area] 69 mL/min/{1.73_m2} Normal >60 [facility] Comment on above: Result Comment: mL/m in/1.73m2 CKD-EPI Creatinine Equation (2020) Performed By: #### L 300.4310, L300.3900, M100.7900, BTS, L500.2500, L100.0100 ####[facility] [address] [place], [address] Glucose [Mass/Vol] 116 mg/dL High 70-99 [facility] Comment on above: Performed By: #### L 300.4310, L300.3900, M100.7900, BTS, L500.2500, L100.0100 ####[facility] [address] [place], [address] Potassium [Moles/Vol] 4.3 mmol/L Normal 3.3-5.1 [facility] Comment on above: Performed By: #### L 300.4310, L300.3900, M100.7900, BTS, L500.2500, L100.0100 ####[facility] [address] [place], [address] Sodium [Moles/Vol] 140 mmol/L Normal 133-145 [facility] Comment on above: Performed By: #### L 300.4310, L300.3900, M100.7900, BTS, L500.2500, L100.0100 ####[facility] [address] [place], [address] Urea nitrogen [Mass/Vol] 15 mg/dL Normal 4-19 [facility] Comment on above: Performed By: #### L 300.4310, L300.3900, M100.7900, BTS, L500.2500, L100.0100 ####[facility] [address] [place], [address] CBC W/Diff, Automatedon 01-07 Absolute Lymph 2.22 X10 3/uL Normal 0.83-4.51 [facility] Comment on above: Performed By: #### L 300.4310, L300.3900, M100.7900, BTS, L500.2500, L100.0100 ####[facility] [address] [place], [address] Absolute Neut 6.1 X10 3/uL Normal 2.0-7.7 [facility] Comment on above: Performed By: #### L 300.4310, L300.3900, M100.7900, BTS, L500.2500, L100.0100 ####[facility] [address] [place], [address] Basophils/100 WBC (Bld) 0.4 % Normal 0-1 [facility] Comment on above: Performed By: #### L 300.4310, L300.3900, M100.7900, BTS, L500.2500, L100.0100 ####[facility] [address] [place], [address] Eosinophils/100 WBC (Bld) 1.1 % Normal 0-5 [facility] Comment on above: Performed By: #### L 300.4310, L300.3900, M100.7900, BTS, L500.2500, L100.0100 ####[facility] [address] [place], [address] Erythrocyte distribution width (RBC) [Ratio] 15.8 % High 11.6-14.6 [facility] Comment on above: Performed By: #### L 300.4310, L300.3900, M100.7900, BTS, L500.2500, L100.0100 ####[facility] [address] [place], [address] Hematocrit (Bld) [Volume fraction] 28.7 % Low 37-47 [facility] Comment on above: Performed By: #### L 300.4310, L300.3900, M100.7900, BTS, L500.2500, L100.0100 ####[facility] [address] [place], [address] Hemoglobin (Bld) [Mass/Vol] 8.2 g/dL Low 12.0-15.0 [facility] Comment on above: Performed By: #### L 300.4310, L300.3900, M100.7900, BTS, L500.2500, L100.0100 ####[facility] [address] [place], [address] IG% 0.300 Normal 0.0-0.9 [facility] Comment on above: Result Comment: IG% - Immature Granulocytes (promyelocytes, myelocytes and metamyelocytes) > 1% indicates that a LEFT SHIFT is Present. Performed By: #### L 300.4310, L300.3900, M100.7900, BTS, L500.2500, L100.0100 ####[facility] [address] [place], [address] Lymphocytes/100 WBC (Bld) 22.8 % Normal 19-41 [facility] Comment on above: Performed By: #### L 300.4310, L300.3900, M100.7900, BTS, L500.2500, L100.0100 ####[facility] [address] [place], [address] MCH (RBC) [Entitic mass] 20.7 pg Low 27.0-32.0 [facility] Comment on above: Performed By: #### L 300.4310, L300.3900, M100.7900, BTS, L500.2500, L100.0100 ####[facility] [address] [place], [address] MCHC (RBC) [Mass/Vol] 28.6 g/dL Low 32-36 [facility] Comment on above: Performed By: #### L 300.4310, L300.3900, M100.7900, BTS, L500.2500, L100.0100 ####[facility] [address] [place], [address] MCV (RBC) [Entitic vol] 72.5 fL Low 81-99 [facility] Comment on above: Performed By: #### L 300.4310, L300.3900, M100.7900, BTS, L500.2500, L100.0100 ####[facility] [address] [place], [address] Monocytes/100 WBC (Bld) 12.8 % High 0-10 [facility] Comment on above: Performed By: #### L 300.4310, L300.3900, M100.7900, BTS, L500.2500, L100.0100 ####[facility] [address] [place], [address] Neutrophils/100 WBC (Bld) 62.6 % Normal 47-70 [facility] Comment on above: Performed By: #### L 300.4310, L300.3900, M100.7900, BTS, L500.2500, L100.0100 ####[facility] [address] [place], [address] Nucleated RBC (Bld) [#/Vol] 0 10*3/uL Normal 0-5 [facility] Comment on above: Performed By: #### L 300.4310, L300.3900, M100.7900, BTS, L500.2500, L100.0100 ####[facility] [address] [place], [address] Platelet mean volume (Bld) [Entitic vol] 10.0 fL Normal 6.2-12.0 [facility] Comment on above: Performed By: #### L 300.4310, L300.3900, M100.7900, BTS, L500.2500, L100.0100 ####[facility] [address] [place], [address] Platelets (Bld) [#/Vol] 335 10*3/uL Normal 150-450 [facility] Comment on above: Performed By: #### L 300.4310, L300.3900, M100.7900, BTS, L500.2500, L100.0100 ####[facility] [address] [place], [address] RBC (Bld) [#/Vol] 3.96 10*6/uL Low 4.2-5.4 [facility] Comment on above: Performed By: #### L 300.4310, L300.3900, M100.7900, BTS, L500.2500, L100.0100 ####[facility] [address] [place], [address] RDW SD 41.1 fl Normal 35.1-43.9 [facility] Comment on above: Performed By: #### L 300.4310, L300.3900, M100.7900, BTS, L500.2500, L100.0100 ####[facility] [address] [place], [address] WBC (Bld) [#/Vol] 9.8 10*3/uL Normal 4.4-11.0 [facility] Comment on above: Performed By: #### L 300.4310, L300.3900, M100.7900, BTS, L500.2500, L100.0100 ####[facility] [address] [place], [address] CTA Abd/Pelvis W/WO Contrast on 01-24-2025 CTA Abd/Pelvis W/WO Contrast [facility] Imaging Services [address] [place] [address] CTA Abd/Pelvis W/WO Contrast MR#: [id number] Acct: [id number] Name: ELY HURTADO Rep #: [id number] : 1940 F 84 From: Tino Garza MD PCP: Dianna Guido MD Status: REG ER Study: CTA Abd/Pelvis W/WO Contrast Date of Exam: Exam# [id number] Ordering Dr: Power Borges DO PROCEDURE: CTA ABD/PELVIS W/WO CONTRAST 01/24/2025 REASON FOR EXAM: GI BLEED TECHNIQUE: CTA ABD/PELVIS W/WO CONTRAST Multiplanar Sagittal and Coronal images were obtained. 3D and/or MIPS post processing was performed. CONTRAST: Isovue 370 VOLUME: 100 mL One or more dose reduction techniques were used (e.g., Automated exposure control, adjustment of the mA and/or kV according to patient size, use of iterative reconstruction technique). RADIATION DOSE SUMMARY: DLP: 688.94 mGycm COMPARISON: None available. FINDINGS: VASCULATURE: Abdominal aorta is tortuous but normal in caliber. No aortic aneurysm or dissection. Mild atherosclerotic disease. Major branches of the celiac axis, SMA, SANTY, bilateral renal and iliac arteries are patent. There is a large saccular aneurysm/pseudoaneurysm measuring 4.3 x 3.8 x 3.3 cm (CC, TV, AP) which originates from the distal common hepatic artery (see javed images). No adjacent free fluid or contrast extravasation to indicate aneurysm rupture. HEPATOBILIARY: Cholelithiasis, without evidence for acute cholecystitis. No significant biliary ductal dilatation. Subcentimeter hyperenhancing focus in the posterior right hepatic lobe (S2 image 27) is most likely a small flash filling hemangioma. Normal-sized spleen. Unremarkable pancreas. GENITOURINARY: Normal, symmetric renal enhancement. Chronic cortical scarring along the upper pole of the left kidney. No urolithiasis or hydronephrosis. Unremarkable urinary bladder. Grossly normal appearance of the uterus and adnexae. GI TRACT: No evidence of bowel obstruction or active inflammatory process. Mild distal colonic diverticulosis. Normal appendix. There is a large right inguinal hernia containing mesenteric fat/vasculature and several loops of distal small bowel, without evidence of obstruction or strangulation. No intraluminal hyperdense material/contrast extravasation to indicate active gastrointestinal hemorrhage. Nonspecific fluid within the colon. PERITONEUM/RETROPERITON EUM: No free fluid or air. No lymphadenopathy. MUSCULOSKELETAL: Nodular calcifications in the bilateral breast soft tissues, nonspecific. Chronic appearing cortical buckle fracture deformity of the right iliac wing. Chronic severe compression fracture deformity of T10, with no significant retropulsion. Mild degenerative changes of the spine elsewhere. Diffuse qualitative osteopenia. CT/CTA Abd/Pelvis W/WO Contrast IMPRESSION: 1. 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 No signs of rupture. Recommend urgent Vascular Interventional consult. 2. No evident active gastrointestinal hemorrhage. Nonspecific fluid in the colon. 3. Cholelithiasis, without evidence for acute cholecystitis. 4. Large right inguinal hernia containing several loops of distal small bowel, without evidence of bowel obstruction or strangulation/incarcera tion. 5. Additional non-acute ancillary findings, as described above. Findings communicated with provider Power Borges 01/24/2025 at 10:50 p.m. [employer]SULTANT. Reading Location: [id number] CC: Dr. Power Borges DO; Dianna Guido MD Mail Clerk: Signed Normal [facility] Carbon dioxide, total [Moles /volume] in Central venous bloodOrdered By: Power Borges on 01-24-2025 CO2 [Moles/Vol] 24.8 mmol/L 21.0-32.0 [facility] Chloride assayOrdered By: Raffaele Borges on 01-24-2025 Chloride [Moles/Vol] 103 mmol/L 98-108 [facility] Emergency Department Summary on 01-24-2025 Emergency Department Summary [facility] Medical Records Department [address] [place] [address] Emergency Department Summary 01/24/25 MR#: [id number] Acct: [id number] Name: ELY HURTADO Rep #: [id number] : 1940 84 From: Power Weeks PCP: Dianna Guido MD Status:DEP ER Location: ED HPI HPI - GI History of Present Illness Chief Complaint: GI Bleed Informant: patient and EMS Narrative Narrative: Discontinue hydroxyzine sent in from [facility] assisted living for increasing rectal bleeding reported blood pressure systolic 70s at facility. Patient does report lightheaded symptoms. She reports more bloody stools today. She denies abdominal pain. Evaluation of her medicine she is on Eliquis looks like started last month for DVT. She does not recall this diagnosis. Reports son is on his way. No history of similar. Unclear if any upper or lower endoscopies in the past. Prior similar symptoms: No PFSH PFSH Medical History PVD (peripheral vascular disease) Home Medications ???Medication ???Instructions ???Recorded ???Last Taken ???Type apixaban 5 mg tablet (Eliquis) 5 mg PO BID 01/24/25 Unknown Histo ry atorvastatin 10 mg tablet 10 mg PO DAILY 01/24/25 Unknown Hi story cholecalciferol (vitamin D3) 50 50 mcg PO DAILY 01/24/25 Unknown H istory mcg (2,000 unit) capsule furosemide 40 mg tablet 40 mg PO DAILY 01/24/25 Unknown Hi story potassium chloride 20 mEq 20 meq PO DAILY 01/24/25 Unknown H istory tablet,extended release(part/cryst) Allergy/AdvReac Type Severity Reaction Status Date / Time aspirin (ASA) AdvReac Itching Verified 01/24/25 21:16 latex AdvReac Itching Verified 01/24/25 21:16 Social History Smoking Status: Never smoker ROS ROS ED Constitutional Constitutional ED: Denies chills, fever(s) or sweats ENT ENT ED: Denies sore throat Cardiovascular Cardiovascular: Reports other Details: Lightheaded ; Denies chest pain, leg edema, palpitations or racing heartbeat Respiratory/Chest Respiratory/Chest: Denies cough, dyspnea or dyspnea on exertion Gastrointestinal Gastrointestinal: Reports melena and other Details: Blood in stools. ; Denies abdominal pain, diarrhea, nausea or vomiting Genitourinary Genitourinary ED: Denies dysuria, hematuria or urinary frequency Musculoskeletal Musculoskeletal: Denies back pain, extremity pain or neck pain Integumentary Denies rash or wounds Neurologic Neurologic: Denies headache(s), paresthesias or weakness EXAM Physical Exam Const Vital Signs: 01/24/25 21:15 01/24/25 22:15 01/24/25 23:00 Temperature 98.6 F Temperature Source Oral Pulse Rate 118 H 82 89 Respiratory Rate 18 24 H 20 H Blood Pressure 108/71 103/71 103/71 Blood Pressure Mean 83 81 81 Blood Pressure Source Blood Pressure Position Blood Pressure Location Pulse Ox 98 96 97 Oxygen Delivery Method Room Air Room Air Room Air 01/25/25 00:00 01/25/25 01:00 01/25/25 02:00 Temperature Temperature Source Pulse Rate 91 87 98 Respiratory Rate 20 H 18 17 Blood Pressure 107/75 110/71 101/58 L Blood Pressure Mean 85 84 72 Blood Pressure Source Blood Pressure Position Blood Pressure Location Pulse Ox 97 98 97 Oxygen Delivery Method Room Air Room Air Room Air 01/25/25 03:00 01/25/25 04:00 01/25/25 05:00 Temperature Temperature Source Pulse Rate 85 85 82 Respiratory Rate 18 19 H 18 Blood Pressure 109/69 104/65 99/67 Blood Pressure Mean 82 78 77 Blood Pressure Source Blood Pressure Position Blood Pressure Location Pulse Ox 97 97 97 Oxygen Delivery Method Room Air Room Air Room Air 01/25/25 05:46 01/25/25 06:00 01/25/25 06:01 Temperature 98.6 F 98.6 F Temperature Source Oral Oral Pulse Rate 99 79 80 Respiratory Rate 16 16 16 Blood Pressure 112/75 101/53 L 101/53 L Blood Pressure Mean 87 69 69 Blood Pressure Source Monitor Monitor Blood Pressure Position Semi-Fowlers Semi-Fowlers Blood Pressure Location Right Arm Right Arm Pulse Ox 97 99 95 Oxygen Delivery Method Room Air Room Air Room Air 01/25/25 07:01 01/25/25 07:02 01/25/25 07:16 Temperature 98.8 F 98.8 F Temperature Source Oral Oral Pulse Rate 79 77 84 Respiratory Rate 13 27 H 25 H Blood Pressure 103/69 103/69 104/79 Blood Pressure Mean 80 80 87 Blood Pressure Source Monitor Blood Pressure Position Semi-Fowlers Blood Pressure Location Right Arm Pulse Ox 98 95 100 Oxygen Delivery Method Room Air 01/25/25 07:45 01/25/25 07:51 01/25/25 08:06 Temperature 98.8 F 98.8 F 98.7 F Temperature Source Oral Oral Oral Pulse Rate 75 75 80 Respirato (more content not included)... Normal [facility] Glomerular filtration rate ( GFR) estimation/1.73 sq m using serum, plasma, or whole bOrdered By: Power Borges on 01-24-2025 GFR/1.73 sq M.predicted among non-blacks MDRD (S/P/Bld) [Vol rate/Area] 69 mL/min/{1.73_m2} >60 [facility] Comment on above: mL/min/1.73m2 CKD-EP I Creatinine Equation (2020) International normalized rat io (INR) calculationOrdered By: Power Borges on 01-24-2025 INR Coag (Bld) [Relative time] 1.5 {INR} [facility] Partial Thromboplast Timeon 01-24-2025 aPTT Coag (Bld) [Time] 30.3 s Normal 24.1-36.2 [facility] Comment on above: Performed By: #### L 300.4310, L300.3900, M100.7900, BTS, L500.2500, L100.0100 ####[facility] [address] [place], [place], [id number] Potassium measurement (mass/ volume)Ordered By: Power Borges on 01-24-2025 Potassium (Unsp spec) [Mass/Vol] 4.3 mmol/L 3.3-5.1 [facility] Prothrombin Time w/INRon INR Coag (PPP) [Relative time] 1.5 {INR} Normal [facility] Comment on above: Performed By: #### L 300.4310, L300.3900, M100.7900, BTS, L500.2500, L100.0100 ####[facility] [address] [place], [place], [address] PT Coag (PPP) [Time] 17.9 s High 11.7-14.9 [facility] Comment on above: Performed By: #### L 300.4310, L300.3900, M100.7900, BTS, L500.2500, L100.0100 ####[facility] [address] [place], [place], [id number] Prothrombin timeOrdered By: Power Borges on 01-24-2025 PT Coag (PPP) [Time] 17.9 s High 11.7-14.9 [facility] Serum creatinine measurement (mass/volume)Ordered By: Power Borges on 01-24-2025 Creatinine [Mass/Vol] 0.84 mg/dL 0.70-1.20 [facility] Serum glucose measurement (m ass/volume)Ordered By: Power Borges on 01-24-2025 Glucose [Mass/Vol] 116 mg/dL High 70-99 [facility] Serum or plasma calcium slava urement (mass/volume)Ordered By: Power Borges on 01-24-2025 Calcium [Mass/Vol] 9.0 mg/dL 7.6-11.0 [facility] Serum or plasma urea nitroge n measurement (mass/volume)Ordered By: Power Borges on 01-24-2025 Urea nitrogen [Mass/Vol] 15 mg/dL 4-19 [facility] Sodium levelOrdered By: Power Borges on 01-24-2025 Sodium [Moles/Vol] 140 mmol/L 133-145 [facility] Stool Occult Blood iFOBon STOB Positive Normal [facility] Comment on above: Performed By: #### L 300.4310, L300.3900, M100.7900, BTS, L500.2500, L100.0100 ####[facility] [address] [place], [address] Stool gastrointestinal hemog lobin detection by immunologic methodOrdered By: Power Borges on 01-24-2025 Lower GI hemoglobin IA Ql (Stl) Positive Abnormal [facility] Type AND Screenon 01-24-2025 Ab SCREEN GEL Negative Normal [facility] Comment on above: Order Comment: HGI Performed By: #### L 300.4310, L300.3900, M100.7900, BTS, L500.2500, L100.0100 ####[facility] [address] [place], [place], [id number] Bilirubin directOrdered By: Dianna Guido on 11-08-2024 Bilirubin.direct [Mass/Vol] 0.50 mg/dL High 0.00-0.30 [facility] Bilirubin, totalOrdered By: Dianna Guido on 11-08-2024 Bilirubin [Mass/Vol] 1.21 mg/dL 0.00-1.30 [facility] Laboratory - Chemistry and C hemistry - challengeOrdered By: Dianna Guido on 11-08-2024 AST [Catalytic activity/Vol] 22 U/L <32 [facility] Liver Profileon 11-08-2024 Albumin [Mass/Vol] 3.3 g/dL Low 3.4-4.8 [facility] Comment on above: Order Comment: 155 Performed By: #### L 500.3400 #### [facility] [address] [place], [place], [id number] ALK PHOS 95 U/L Normal 35-104 [facility] Comment on above: Order Comment: 155 Performed By: #### L 500.3400 #### [facility] [address] [place], [place], [id number] ALT [Catalytic activity/Vol] 8 U/L Normal <=34 [facility] Comment on above: Order Comment: 155 Performed By: #### L 500.3400 #### [facility] [address] [place], [address] AST [Catalytic activity/Vol] 22 U/L Normal <=31 [facility] Comment on above: Order Comment: 155 Performed By: #### L 500.3400 #### [facility] [address] [place], [address] Bilirubin [Mass/Vol] 1.21 mg/dL Normal 0.00-1.30 [facility] Comment on above: Order Comment: 155 Performed By: #### L 500.3400 #### [facility] [address] [place], [address] Bilirubin.direct [Mass/Vol] 0.50 mg/dL High 0.00-0.30 [facility] Comment on above: Order Comment: 155 Performed By: #### L 500.3400 #### [facility] [address] [place], [address] Globulin (S) [Mass/Vol] 2.2 g/dL Normal 2.2-4.2 [facility] Comment on above: Order Comment: 155 Performed By: #### L 500.3400 #### [facility] [address] [place], [address] T PROT 5.5 g/dL Low 5.9-8.4 [facility] Comment on above: Order Comment: 155 Performed By: #### L 500.3400 #### [facility] [address] [place], [address] Serum globulin measurementOr dered By: Dianna Guido on 11-08-2024 Globulin (S) [Mass/Vol] 2.2 g/dL 2.2-4.2 [facility] Serum or plasma alanine rasheed otransferase (ALT) measurementOrdered By: Dianna Guido on 11-08-2024 ALT [Catalytic activity/Vol] 8 U/L <35 [facility] Serum or plasma albumin slava urement (mass/volume)Ordered By: Dianna Guido on 11-08-2024 Albumin [Mass/Vol] 3.3 g/dL Low 3.4-4.8 [facility] Serum or plasma alkaline catalina sphatase measurementOrdered By: Dianna Guido on 11-08-2024 ALP [Catalytic activity/Vol] 95 U/L 35-104 [facility] Total proteinOrdered By: Zita Guido on 11-08-2024 Protein [Mass/Vol] 5.5 g/dL Low 5.9-8.4 [facility] Anion gap in Serum or Plasma Ordered By: Dianna Guido on 10-04-2024 Anion gap [Moles/Vol] 10 mmol/L 5-15 [facility] BUN/creatinine ratioOrdered By: Dianna Guido on 10-04-2024 Urea nitrogen/Creatinine [Mass ratio] 14.3 mg/mg 10-20 [facility] Bilirubin, totalOrdered By: Dianna Guido on 10-04-2024 Bilirubin [Mass/Vol] 1.57 mg/dL High 0.00-1.30 [facility] CBC-Complete Blood Cnt No Di ffon 10-04-2024 Erythrocyte distribution width (RBC) [Ratio] 14.5 % Normal 11.6-14.6 [facility] Comment on above: Order Comment: 155 Performed By: #### L 500.4100, L500.4050, L506.1001, L100.0500 #### [facility] [address] [place], [address] Hematocrit (Bld) [Volume fraction] 37.0 % Normal 37-47 [facility] Comment on above: Order Comment: 155 Performed By: #### L 500.4100, L500.4050, L506.1001, L100.0500 #### [facility] [address] [place], [address] Hemoglobin (Bld) [Mass/Vol] 11.2 g/dL Low 12.0-15.0 [facility] Comment on above: Order Comment: 155 Performed By: #### L 500.4100, L500.4050, L506.1001, L100.0500 #### [facility] [address] [place], [address] MCH (RBC) [Entitic mass] 24.6 pg Low 27.0-32.0 [facility] Comment on above: Order Comment: 155 Performed By: #### L 500.4100, L500.4050, L506.1001, L100.0500 #### [facility] [address] [place], [address] MCHC (RBC) [Mass/Vol] 30.3 g/dL Low 32-36 [facility] Comment on above: Order Comment: 155 Performed By: #### L 500.4100, L500.4050, L506.1001, L100.0500 #### [facility] [address] [place], [address] MCV (RBC) [Entitic vol] 81.1 fL Normal 81-99 [facility] Comment on above: Order Comment: 155 Performed By: #### L 500.4100, L500.4050, L506.1001, L100.0500 #### [facility] [address] [place], [address] Platelet mean volume (Bld) [Entitic vol] 10.8 fL Normal 6.2-12.0 [facility] Comment on above: Order Comment: 155 Performed By: #### L 500.4100, L500.4050, L506.1001, L100.0500 #### [facility] [address] [place], [address] Platelets (Bld) [#/Vol] 333 10*3/uL Normal 150-450 [facility] Comment on above: Order Comment: 155 Performed By: #### L 500.4100, L500.4050, L506.1001, L100.0500 #### [facility] [address] [place], [address] RBC (Bld) [#/Vol] 4.56 10*6/uL Normal 4.2-5.4 [facility] Comment on above: Order Comment: 155 Performed By: #### L 500.4100, L500.4050, L506.1001, L100.0500 #### [facility] [address] [place], [address] RDW SD 42.3 fl Normal 35.1-43.9 [facility] Comment on above: Order Comment: 155 Performed By: #### L 500.4100, L500.4050, L506.1001, L100.0500 #### [facility] [address] [place], [address] WBC (Bld) [#/Vol] 6.5 10*3/uL Normal 4.4-11.0 [facility] Comment on above: Order Comment: 155 Performed By: #### L 500.4100, L500.4050, L506.1001, L100.0500 #### [facility] [address] [place], [address] Calculated very low density lipoprotein (VLDL) cholesterol measurementOrdered By: Dianna Guido on 10-04-2024 Calculated very low density lipoprotein (VLDL) cholesterol measurement 16 mg/dL 5-40 [facility] Carbon dioxide, total [Moles /volume] in Central venous bloodOrdered By: Dianna Guido on 10-04-2024 CO2 [Moles/Vol] 28.5 mmol/L 21.0-32.0 [facility] Chloride assayOrdered By: Gonsalo Guido on 10-04-2024 Chloride [Moles/Vol] 105 mmol/L 98-108 [facility] Comprehensive Metabolic Prof ilon 10-04-2024 Chloride [Moles/Vol] 105 mmol/L Normal 98-108 [facility] Comment on above: Order Comment: 155 Performed By: #### L 500.4100, L500.4050, L506.1001, L100.0500 #### [facility] [address] [place], [address] CO2 [Moles/Vol] 28.5 mmol/L Normal 21.0-32.0 [facility] Comment on above: Order Comment: 155 Performed By: #### L 500.4100, L500.4050, L506.1001, L100.0500 #### [facility] [address] [place], [address] GAP 10 Normal 5-15 [facility] Comment on above: Order Comment: 155 Performed By: #### L 500.4100, L500.4050, L506.1001, L100.0500 #### [facility] [address] [place], [address] Potassium [Moles/Vol] 3.8 mmol/L Normal 3.3-5.1 [facility] Comment on above: Order Comment: 155 Performed By: #### L 500.4100, L500.4050, L506.1001, L100.0500 #### [facility] [address] [place], [address] Sodium [Moles/Vol] 143 mmol/L Normal 133-145 [facility] Comment on above: Order Comment: 155 Performed By: #### L 500.4100, L500.4050, L506.1001, L100.0500 #### [facility] [address] [place], [address] Albumin [Mass/Vol] 3.9 g/dL Normal 3.4-4.8 [facility] Comment on above: Order Comment: 155 Performed By: #### L 500.4100, L500.4050, L506.1001, L100.0500 #### [facility] [address] [place], [address] Albumin/Globulin [Mass ratio] 1.4 {ratio} Normal 0.9-2.4 [facility] Comment on above: Order Comment: 155 Performed By: #### L 500.4100, L500.4050, L506.1001, L100.0500 #### [facility] [address] [place], [address] ALK PHOS 112 U/L High 35-104 [facility] Comment on above: Order Comment: 155 Performed By: #### L 500.4100, L500.4050, L506.1001, L100.0500 #### [facility] [address] [place], [address] ALT [Catalytic activity/Vol] 9 U/L Normal <=34 [facility] Comment on above: Order Comment: 155 Performed By: #### L 500.4100, L500.4050, L506.1001, L100.0500 #### [facility] [address] [place], [address] AST [Catalytic activity/Vol] 26 U/L Normal <=31 [facility] Comment on above: Order Comment: 155 Performed By: #### L 500.4100, L500.4050, L506.1001, L100.0500 #### [facility] [address] [place], [address] Bilirubin [Mass/Vol] 1.57 mg/dL High 0.00-1.30 [facility] Comment on above: Order Comment: 155 Performed By: #### L 500.4100, L500.4050, L506.1001, L100.0500 #### [facility] [address] [place], [address] BUN/CRE 14.3 RATIO Normal 10-20 [facility] Comment on above: Order Comment: 155 Performed By: #### L 500.4100, L500.4050, L506.1001, L100.0500 #### [facility] [address] [place], [address] Calcium [Mass/Vol] 9.0 mg/dL Normal 7.6-11.0 [facility] Comment on above: Order Comment: 155 Performed By: #### L 500.4100, L500.4050, L506.1001, L100.0500 #### [facility] [address] [place], [address] Creatinine [Mass/Vol] 0.75 mg/dL Normal 0.70-1.20 [facility] Comment on above: Order Comment: 155 Performed By: #### L 500.4100, L500.4050, L506.1001, L100.0500 #### [facility] [address] [place], [address] GFR/1.73 sq M.predicted among non-blacks MDRD (S/P/Bld) [Vol rate/Area] 79 mL/min/{1.73_m2} Normal >60 [facility] Comment on above: Order Comment: 155 Result Comment: mL/m in/1.73m2 CKD-EPI Creatinine Equation (2020) Performed By: #### L 500.4100, L500.4050, L506.1001, L100.0500 #### [facility] [address] [place], [address] Globulin (S) [Mass/Vol] 2.8 g/dL Normal 2.2-4.2 [facility] Comment on above: Order Comment: 155 Performed By: #### L 500.4100, L500.4050, L506.1001, L100.0500 #### [facility] [address] [place], [address] Glucose [Mass/Vol] 93 mg/dL Normal 70-99 [facility] Comment on above: Order Comment: 155 Performed By: #### L 500.4100, L500.4050, L506.1001, L100.0500 #### [facility] [address] [place], [address] T PROT 6.7 g/dL Normal 5.9-8.4 [facility] Comment on above: Order Comment: 155 Performed By: #### L 500.4100, L500.4050, L506.1001, L100.0500 #### [facility] [address] [place], [address] Urea nitrogen [Mass/Vol] 11 mg/dL Normal 4-19 [facility] Comment on above: Order Comment: 155 Performed By: #### L 500.4100, L500.4050, L506.1001, L100.0500 #### [facility] [address] [place], [address] Erythrocyte distribution wid th ratioOrdered By: Dianna Guido on 10-04-2024 Erythrocyte distribution width (RBC) [Ratio] 14.5 % 11.6-14.6 [facility] Erythrocyte distribution wid th standard deviationOrdered By: Dianna Guido on 10-04-2024 Erythrocyte distribution width (RBC) [Ratio] 42.3 fl 35.1-43.9 [facility] Glomerular filtration rate ( GFR) estimation/1.73 sq m using serum, plasma, or whole bOrdered By: Dianna Guido on 10-04-2024 GFR/1.73 sq M.predicted among non-blacks MDRD (S/P/Bld) [Vol rate/Area] 79 mL/min/{1.73_m2} >60 [facility] Comment on above: mL/min/1.73m2 CKD-EP I Creatinine Equation (2020) Hematocrit Auto (Bld) [Volum e fraction]Ordered By: Dianna Guido on 10-04-2024 Hematocrit (Bld) [Volume fraction] 37.0 % 37-47 [facility] Hemoglobin measurementOrdere d By: Dianna Guido on 10-04-2024 Hemoglobin (Bld) [Mass/Vol] 11.2 g/dL Low 12.0-15.0 [facility] LDL calc ser/plasOrdered By: Dianna Guido on 10-04-2024 Cholesterol in LDL [Mass/Vol] 65 mg/dL [facility] Comment on above: Lehwjwrusf=422-949 m g/dL & Higher Envw=462 mg/dL or greater Laboratory - Chemistry and C hemistry - challengeOrdered By: Dianna Guido on 10-04-2024 AST [Catalytic activity/Vol] 26 U/L <32 [facility] Lipid Profileon 10-04-2024 CHOL:HDL 2.64 Normal [facility] Comment on above: Order Comment: 155 Performed By: #### L 500.4100, L500.4050, L506.1001, L100.0500 #### [facility] [address] [place], [address] Cholesterol in HDL [Mass/Vol] 49 mg/dL Normal [facility] Comment on above: Order Comment: 155 Result Comment: Karis onal Cholesterol Education Program (NCEP) guidelines: <40 mg/dL: Low HDL-cholesterol (major risk factor for CHD) >= 60 mg/dL: High HDL-cholesterol (negative risk factor for CHD) HDL-cholesterol is affected by a number of factors, e.g. smoking, exercise, hormones, sex and age. Performed By: #### L 500.4100, L500.4050, L506.1001, L100.0500 #### [facility] [address] [place], [address] Cholesterol in LDL [Mass/Vol] 65 mg/dL Normal [facility] Comment on above: Order Comment: 155 Result Comment: Bord uigmdh=618-055 mg/dL Higher Cbdy=242 mg/dL or greater Performed By: #### L 500.4100, L500.4050, L506.1001, L100.0500 #### [facility] [address] [place], [address] Cholesterol in VLDL [Mass/Vol] 16 mg/dL Normal 5-40 [facility] Comment on above: Order Comment: 155 Performed By: #### L 500.4100, L500.4050, L506.1001, L100.0500 #### [facility] [address] [place], [address] Triglyceride [Mass/Vol] 81 mg/dL Normal [facility] Comment on above: Order Comment: 155 Result Comment: The drugs N-Acetylcysteine and Metamizole may falsely depress this assay. Normal range: <150 mg/dL Borderline High: 150-199 mg/dL High: 200-499 mg/dL Very High: >500 mg/dL Performed By: #### L 500.4100, L500.4050, L506.1001, L100.0500 #### [facility] [address] [place], [address] Cholesterol [Mass/Vol] 130 mg/dL Normal <=200 [facility] Comment on above: Order Comment: 155 Result Comment: Chol esterol level, Desirable <200 mg/dL Borderline high cholesterol 200-239 mg/dL High cholesterol >=240 mg/dL Recommendations of the NCEP Adult Treatment Panel for the following risk-cutoff thresholds for the [place] population. Performed By: #### L 500.4100, L500.4050, L506.1001, L100.0500 #### [facility] [address] [place], [address] MCV (mean corpuscular volume ) determinationOrdered By: Dianna Guido on 10-04-2024 MCV (RBC) [Entitic vol] 81.1 fL 81-99 [facility] Mean corpuscular hemoglobin (MCH) determinationOrdered By: Dianna Guido on 10-04-2024 MCH (RBC) [Entitic mass] 24.6 pg Low 27.0-32.0 [facility] Mean corpuscular hemoglobin concentration (MCHC) determinationOrdered By: Dianna Guido on 10-04-2024 MCHC (RBC) [Mass/Vol] 30.3 g/dL Low 32-36 [facility] Mean platelet volume determi nationOrdered By: Dianna Guido on 10-04-2024 Platelet mean volume (Bld) [Entitic vol] 10.8 fL 6.2-12.0 [facility] Platelet countOrdered By: Gonsalo Guido on 10-04-2024 Platelets (Bld) [#/Vol] 333 10*3/uL 150-450 [facility] Potassium measurement (mass/ volume)Ordered By: Dianna Guido on 10-04-2024 Potassium (Unsp spec) [Mass/Vol] 3.8 mmol/L 3.3-5.1 [facility] RBC Auto (Bld) [#/Vol]Ordere d By: Dianna Guido on 10-04-2024 RBC (Bld) [#/Vol] 4.56 10*6/uL 4.2-5.4 [facility] Screening total cholesterol/ high density lipoprotein (HDL) cholesterol ratioOrdered By: Dianna Guido on 10-04-2024 Cholesterol.total/Chol esterol in HDL [Mass ratio] 2.64 {ratio} [facility] Serum creatinine measurement (mass/volume)Ordered By: Dianna Guido on 10-04-2024 Creatinine [Mass/Vol] 0.75 mg/dL 0.70-1.20 [facility] Serum globulin measurementOr dered By: Dianna Guido on 10-04-2024 Globulin (S) [Mass/Vol] 2.8 g/dL 2.2-4.2 [facility] Serum glucose measurement (m ass/volume)Ordered By: Dianna Guido on 10-04-2024 Glucose [Mass/Vol] 93 mg/dL 70-99 [facility] Serum or plasma alanine rasheed otransferase (ALT) measurementOrdered By: Dianna Guido on 10-04-2024 ALT [Catalytic activity/Vol] 9 U/L <35 [facility] Serum or plasma albumin slava urement (mass/volume)Ordered By: Dianna Guido on 10-04-2024 Albumin [Mass/Vol] 3.9 g/dL 3.4-4.8 [facility] Serum or plasma albumin/glob ulin mass ratioOrdered By: Dianna Guido on 10-04-2024 Albumin/Globulin [Mass ratio] 1.4 {ratio} 0.9-2.4 [facility] Serum or plasma alkaline catalina sphatase measurementOrdered By: Dianna Guido on 10-04-2024 ALP [Catalytic activity/Vol] 112 U/L High 35-104 [facility] Serum or plasma calcium slava urement (mass/volume)Ordered By: Dianna Guido on 10-04-2024 Calcium [Mass/Vol] 9.0 mg/dL 7.6-11.0 [facility] Serum or plasma cholesterol in HDL measurement (mass/volume)Ordered By: Dianna Guido on 10-04-2024 Cholesterol in HDL [Mass/Vol] 49 mg/dL >40 [facility] Comment on above: National Cholesterol Education Program (NCEP) guidelines:<40 mg/dL: Low HDL-cholesterol (major risk factor for CHD)>= 60 mg/dL: High HDL-cholesterol (negative risk factor for CHD)HDL-cholesterol is affected by a number of factors, e.g. smoking, exercise, hormones, sex and age. Serum or plasma cholesterol measurement (mass/volume)Ordered By: Dianna Guido on 10-04-2024 Cholesterol [Mass/Vol] 130 mg/dL <201 [facility] Comment on above: Cholesterol level, D esirable <200 mg/dLBorderline high cholesterol 200-239 mg/dLHigh cholesterol >=240 mg/dLRecommendations of the NCEP Adult Treatment Panel for the following risk-cutoff thresholds for the [place] population. Serum or plasma urea nitroge n measurement (mass/volume)Ordered By: Dianna Guido on 10-04-2024 Urea nitrogen [Mass/Vol] 11 mg/dL 4-19 [facility] Sodium levelOrdered By: Maite Guido on 10-04-2024 Sodium [Moles/Vol] 143 mmol/L 133-145 [facility] Total proteinOrdered By: Zita Guido on 10-04-2024 Protein [Mass/Vol] 6.7 g/dL 5.9-8.4 [facility] Triglycerides measurementOrd ered By: Dianna Guido on 10-04-2024 Triglyceride [Mass/Vol] 81 mg/dL <199 [facility] Comment on above: The drugs N-Acetylcy steine and Metamizole may falsely depress this assay. Normal range: <150 mg/dLBorderline High: 150-199 mg/dLHigh: 200-499 mg/dLVery High: >500 mg/dL Vitamin D,25 Hydroxyon 10-04 Vitamin D 25-OH 42.8 ng/mL Normal 30-100 [facility] Comment on above: Order Comment: 155 Result Comment: Alessandra min D Status Deficiency: <20 ng/mL (50nmol/L) Insufficiency: 20-30 ng/mL (50-75 nmol/L) Sufficiency: 30-100 ng/mL (75-250 nmol/L) Toxicity: >100 ng/mL (>250 nmol/L) Performed By: #### L 500.4100, L500.4050, L506.1001, L100.0500 #### [facility] [address] [place], [address] White blood cell (WBC) count Ordered By: Dianna Guido on 10-04-2024 WBC (Bld) [#/Vol] 6.5 10*3/uL 4.4-11.0 [facility] Comprehensive Metabolic Prof ilon 05-31-2024 Albumin [Mass/Vol] 3.2 g/dL Normal 3.2-5.0 [facility] Comment on above: Order Comment: 155 Performed By: #### L 500.4100, L501.5200, L500.4050 #### [facility] [address] [place], [address] Albumin/Globulin [Mass ratio] 0.9 {ratio} Normal 0.9-2.4 [facility] Comment on above: Order Comment: 155 Performed By: #### L 500.4100, L501.5200, L500.4050 #### [facility] [address] [place], [address] ALK P 115 U/L Normal 45-117 [facility] Comment on above: Order Comment: 155 Performed By: #### L 500.4100, L501.5200, L500.4050 #### [facility] [address] [place], [address] ALT [Catalytic activity/Vol] 17 U/L Normal 13-56 [facility] Comment on above: Order Comment: 155 Performed By: #### L 500.4100, L501.5200, L500.4050 #### [facility] [address] [place], [address] AST [Catalytic activity/Vol] 23 U/L Normal 15-37 [facility] Comment on above: Order Comment: 155 Performed By: #### L 500.4100, L501.5200, L500.4050 #### [facility] [address] [place], [address] Bilirubin [Mass/Vol] 1.60 mg/dL High 0.20-1.00 [facility] Comment on above: Order Comment: 155 Result Comment: For patients on eltrombopag therapy, use of Dimension [place] TBIL is not recommended. Performed By: #### L 500.4100, L501.5200, L500.4050 #### [facility] [address] [place], [address] BUN/CRE 14.9 RATIO Normal 10-20 [facility] Comment on above: Order Comment: 155 Performed By: #### L 500.4100, L501.5200, L500.4050 #### [facility] [address] [place], [address] CA,Total 9.1 mg/dL Normal 8.5-10.1 [facility] Comment on above: Order Comment: 155 Performed By: #### L 500.4100, L501.5200, L500.4050 #### [facility] [address] [place], [address] Chloride [Moles/Vol] 109 mmol/L High 98-107 [facility] Comment on above: Order Comment: 155 Performed By: #### L 500.4100, L501.5200, L500.4050 #### [facility] [address] [place], [address] CO2 [Moles/Vol] 31.0 mmol/L Normal 21.0-32.0 [facility] Comment on above: Order Comment: 155 Performed By: #### L 500.4100, L501.5200, L500.4050 #### [facility] [address] [place], [address] Creatinine [Mass/Vol] 0.74 mg/dL Normal 0.55-1.02 [facility] Comment on above: Order Comment: 155 Result Comment: The validity of the calculated GFR GFRAA in patients over 70 years has not been determined. Clinical correlation is essential. Performed By: #### L 500.4100, L501.5200, L500.4050 #### [facility] [address] [place], [address] EST GFR - AA 97 mL/min Normal >60 [facility] Comment on above: Order Comment: 155 Result Comment: Afri can Georgian GFR Calc Performed By: #### L 500.4100, L501.5200, L500.4050 #### [facility] [address] [place], [address] GAP 4 Low 5-15 [facility] Comment on above: Order Comment: 155 Performed By: #### L 500.4100, L501.5200, L500.4050 #### [facility] [address] [place], [address] GFR/1.73 sq M.predicted among non-blacks MDRD (S/P/Bld) [Vol rate/Area] 80 mL/min/{1.73_m2} Normal >60 [facility] Comment on above: Order Comment: 155 Result Comment: Non- GFR Calc Performed By: #### L 500.4100, L501.5200, L500.4050 #### [facility] [address] [place], [address] Globulin (S) [Mass/Vol] 3.4 g/dL Normal 2.2-4.2 [facility] Comment on above: Order Comment: 155 Performed By: #### L 500.4100, L501.5200, L500.4050 #### [facility] [address] [place], [address] Glucose [Mass/Vol] 97 mg/dL Normal 74-106 [facility] Comment on above: Order Comment: 155 Performed By: #### L 500.4100, L501.5200, L500.4050 #### [facility] [address] [place], [address] Potassium [Moles/Vol] 3.9 mmol/L Normal 3.5-5.1 [facility] Comment on above: Order Comment: 155 Performed By: #### L 500.4100, L501.5200, L500.4050 #### [facility] [address] [place], [address] Sodium [Moles/Vol] 143 mmol/L Normal 136-145 [facility] Comment on above: Order Comment: 155 Performed By: #### L 500.4100, L501.5200, L500.4050 #### [facility] [address] [place], [address] T PROT 6.6 g/dL Normal 6.4-8.2 [facility] Comment on above: Order Comment: 155 Performed By: #### L 500.4100, L501.5200, L500.4050 #### [facility] [address] [place], [address] Urea nitrogen [Mass/Vol] 11 mg/dL Normal 7-18 [facility] Comment on above: Order Comment: 155 Performed By: #### L 500.4100, L501.5200, L500.4050 #### [facility] [address] [place], [address] Lipid Profileon 05-31-2024 Cholesterol [Mass/Vol] 128 mg/dL Normal 200 [facility] Comment on above: Order Comment: 155 Result Comment: <200 mg/dL Desirable 200-240 mg/dL Borderline >240 mg/dL High Risk Performed By: #### L 500.4100, L501.5200, L500.4050 #### [facility] [address] [place], [address] Cholesterol in HDL [Mass/Vol] 57 mg/dL Normal [facility] Comment on above: Order Comment: 155 Result Comment: The drugs N-Acetylcysteine and Metamizole may falsely depress this assay. Reference Range HDL <40 mg/dL Low HDL Cholesterol HDL >or= 60 mg/dL High HDL Cholesterol Performed By: #### L 500.4100, L501.5200, L500.4050 #### [facility] [address] [place], [address] Cholesterol in LDL [Mass/Vol] 52 mg/dL Normal 0-130 [facility] Comment on above: Order Comment: 155 Performed By: #### L 500.4100, L501.5200, L500.4050 #### [facility] [address] [place], [address] Cholesterol in VLDL [Mass/Vol] 19 mg/dL Normal 5-40 [facility] Comment on above: Order Comment: 155 Performed By: #### L 500.4100, L501.5200, L500.4050 #### [facility] [address] [place], [address] Triglyceride [Mass/Vol] 97 mg/dL Normal [facility] Comment on above: Order Comment: 155 Result Comment: The drugs N-Acetylcysteine and Metamizole may falsely depress this assay. Serum Triglycerides Reference Interval Normal <150 mg/dL Borderline high 150 - 199 mg/dL High 200 - 499 mg/dL Very High > or = 500 mg/dL Performed By: #### L 500.4100, L501.5200, L500.4050 #### [facility] [address] [place], [address] Magnesiumon 05-31-2024 Magnesium [Mass/Vol] 2.4 mg/dL Normal 1.6-2.6 [facility] Comment on above: Order Comment: 155 Performed By: #### L 500.4100, L501.5200, L500.4050 #### [facility] [address] [place], [address] Magnesiumon 03-25-2024 Magnesium [Mass/Vol] 2.4 mg/dL Normal 1.6-2.6 [facility] Comment on above: Order Comment: 155 Performed By: #### L 500.3400 #### [facility] [address] [place], [address] Basic Metabolic Profile (BMP )on 03-24-2024 BUN/CRE 12.9 RATIO Normal 10-20 [facility] Comment on above: Order Comment: 155 Performed By: #### L 500.3400 #### [facility] [address] [place], [address] CA,Total 8.6 mg/dL Normal 8.5-10.1 [facility] Comment on above: Order Comment: 155 Performed By: #### L 500.3400 #### [facility] [address] [place], [address] Chloride [Moles/Vol] 109 mmol/L High 98-107 [facility] Comment on above: Order Comment: 155 Performed By: #### L 500.3400 #### [facility] [address] [place], [address] CO2 [Moles/Vol] 32.0 mmol/L Normal 21.0-32.0 [facility] Comment on above: Order Comment: 155 Performed By: #### L 500.3400 #### [facility] [address] [place], [address] Creatinine [Mass/Vol] 0.70 mg/dL Normal 0.55-1.02 [facility] Comment on above: Order Comment: 155 Result Comment: The validity of the calculated GFR GFRAA in patients over 70 years has not been determined. Clinical correlation is essential. Performed By: #### L 500.3400 #### [facility] [address] [place], [address] EST GFR - AA 103 mL/min Normal >60 [facility] Comment on above: Order Comment: 155 Result Comment: Afri can [place] GFR Calc Performed By: #### L 500.3400 #### [facility] [address] [place], [address] GAP 2 Low 5-15 [facility] Comment on above: Order Comment: 155 Performed By: #### L 500.3400 #### [facility] [address] [place], [address] GFR/1.73 sq M.predicted among non-blacks MDRD (S/P/Bld) [Vol rate/Area] 85 mL/min/{1.73_m2} Normal >60 [facility] Comment on above: Order Comment: 155 Result Comment: Non- GFR Calc Performed By: #### L 500.3400 #### [facility] [address] [place], [address] Glucose [Mass/Vol] 88 mg/dL Normal 74-106 [facility] Comment on above: Order Comment: 155 Performed By: #### L 500.3400 #### [facility] [address] [place], [address] Potassium [Moles/Vol] 4.4 mmol/L Normal 3.5-5.1 [facility] Comment on above: Order Comment: 155 Performed By: #### L 500.3400 #### [facility] [address] [place], [address] Sodium [Moles/Vol] 143 mmol/L Normal 136-145 [facility] Comment on above: Order Comment: 155 Performed By: #### L 500.3400 #### [facility] [address] [place], [address] Urea nitrogen [Mass/Vol] 9 mg/dL Normal 7-18 [facility] Comment on above: Order Comment: 155 Performed By: #### L 500.3400 #### [facility] [address] [place], [address] CBC-Complete Blood Cnt No Di ffon 03-24-2024 Erythrocyte distribution width (RBC) [Ratio] 13.4 % Normal 11.6-14.6 [facility] Comment on above: Order Comment: 155 Performed By: #### L 500.3400 #### [facility] [address] [place], [address] Hematocrit (Bld) [Volume fraction] 39.8 % Normal 37-47 [facility] Comment on above: Order Comment: 155 Performed By: #### L 500.3400 #### [facility] [address] [place], [address] Hemoglobin (Bld) [Mass/Vol] 12.2 g/dL Normal 12.0-15.0 [facility] Comment on above: Order Comment: 155 Performed By: #### L 500.3400 #### [facility] [address] [place], [address] MCH (RBC) [Entitic mass] 27.1 pg Normal 27.0-32.0 [facility] Comment on above: Order Comment: 155 Performed By: #### L 500.3400 #### [facility] [address] [place], [address] MCHC (RBC) [Mass/Vol] 30.7 g/dL Low 32-36 [facility] Comment on above: Order Comment: 155 Performed By: #### L 500.3400 #### [facility] [address] [place], [address] MCV (RBC) [Entitic vol] 88.2 fL Normal 81-99 [facility] Comment on above: Order Comment: 155 Performed By: #### L 500.3400 #### [facility] [address] [place], [address] Platelet mean volume (Bld) [Entitic vol] 10.5 fL Normal 6.2-12.0 [facility] Comment on above: Order Comment: 155 Performed By: #### L 500.3400 #### [facility] [address] [place], [address] Platelets (Bld) [#/Vol] 218 10*3/uL Normal 150-450 [facility] Comment on above: Order Comment: 155 Performed By: #### L 500.3400 #### [facility] [address] [place], [address] RBC (Bld) [#/Vol] 4.51 10*6/uL Normal 4.2-5.4 [facility] Comment on above: Order Comment: 155 Performed By: #### L 500.3400 #### [facility] [address] [place], [address] RDW SD 43.6 fl Normal 35.1-43.9 [facility] Comment on above: Order Comment: 155 Performed By: #### L 500.3400 #### [facility] [address] [place], [address] WBC (Bld) [#/Vol] 6.1 10*3/uL Normal 4.4-11.0 [facility] Comment on above: Order Comment: 155 Performed By: #### L 500.3409 #### [facility] [address] [place], [address] Anaerobic cultureOrdered By: Andie Bernal on 05-22-2023 Bacteria identified Anaer cx Nom (Unsp spec) No anaerobic bacteria isolated. [facility] Bacteria identified Cx Nom ( Wound)Ordered By: Andie Bernal on 05-22-2023 Wound Culture Enterococcus faecalis [facility] Wound Culture Staphylococcus lugdunensis [facility] Gram stain for investigation of transfusion reactionOrdered By: Andie Bernal on 05-22-2023 Microscopic observation Gram stain Nom (Unsp spec) [facility] Absolute lymphocyte countOrd ered By: Dianna Guido on 05-19-2023 Lymphocytes Auto (Unsp spec) [#/Vol] 2.12 10*3/uL 0.83-4.51 [facility] Basophil percentageOrdered B y: Dianna Guido on 05-19-2023 Basophils/100 WBC (Bld) 1.0 % 0-1 [facility] Eosinophils/100 WBC (Bld) 3.2 % 0-5 [facility] Neutrophils (Bld) [#/Vol] 3.6 10*3/uL 2.0-7.7 [facility] Neutrophils/100 WBC (Bld) 52.8 % 47-70 [facility] WBC (Bld) [#/Vol] 6.9 10*3/uL 4.4-11.0 [facility] Blood erythrocytes count (nu mber/volume)Ordered By: Dianna Guido on 05-19-2023 RBC (Bld) [#/Vol] 5.10 10*6/uL 4.2-5.4 [facility] Blood hemoglobin measurement (mass/volume)Ordered By: Dianna Guido on 05-19-2023 Hemoglobin (Bld) [Mass/Vol] 14.0 g/dL 12.0-15.0 [facility] Blood lymphocytes/100 leukoc ytesOrdered By: Dianna Guido on 05-19-2023 Lymphocytes/100 WBC (Bld) 30.9 % 19-41 [facility] Blood monocytes/100 leukocyt esOrdered By: Dianna Guido on 05-19-2023 Monocytes/100 WBC (Bld) 11.8 % 0-10 [facility] Blood platelet mean volumeOr dered By: Dianna Guido on 05-19-2023 Platelet mean volume (Bld) [Entitic vol] 10.6 fL 6.2-12.0 [facility] Determination of erythrocyte mean corpuscular volume (MCV)Ordered By: Dianna Guido on 05-19-2023 MCV (RBC) [Entitic vol] 90.8 fL 81-99 [facility] Hematocrit Auto (Bld) [Volum e fraction]Ordered By: Dianna Guido on 05-19-2023 Hematocrit (Bld) [Volume fraction] 46.3 % 37-47 [facility] Laboratory - Hematology and Cell countsOrdered By: Dianna Guido on 05-19-2023 Erythrocyte distribution width (RBC) [Entitic vol] 46.1 fL 35.1-43.9 [facility] Erythrocyte distribution width (RBC) [Ratio] 13.7 % 11.6-14.6 [facility] Immature granulocytes/100 WBC (Bld) 0.300 % 0.0-0.9 [facility] Comment on above: IG% - Immature Granu locytes (promyelocytes, myelocytes and metamyelocytes) > 1% indicates that a LEFT SHIFT is Present. MCH (RBC) [Entitic mass] 27.5 pg 27.0-32.0 [facility] Nucleated RBC/100 WBC (Bld) [Ratio] 0 % 0-5 [facility] MCHC Auto (RBC) [Mass/Vol]Or dered By: Dianna Guido on 05-19-2023 MCHC (RBC) [Mass/Vol] 30.2 g/dL 32-36 [facility] Platelets bldOrdered By: Zita Guido on 05-19-2023 Platelets (Bld) [#/Vol] 285 10*3/uL 150-450 [facility] Bacteria identified Cx Nom ( Wound)Ordered By: Dianna Guido on 05-16-2023 Wound Culture Presumptive E. coli [facility] Gram stain for investigation of transfusion reactionOrdered By: Dianna Guido on 05-16-2023 Microscopic observation Gram stain Nom (Unsp spec) [facility] Basophil percentageOrdered B y: Dianna Guido on 05-14-2023 WBC (Bld) [#/Vol] 6.8 10*3/uL 4.4-11.0 [facility] Blood erythrocytes count (nu mber/volume)Ordered By: Dianna Guido on 05-14-2023 RBC (Bld) [#/Vol] 5.19 10*6/uL 4.2-5.4 [facility] Blood hemoglobin measurement (mass/volume)Ordered By: Dianna Guido on 05-14-2023 Hemoglobin (Bld) [Mass/Vol] 14.2 g/dL 12.0-15.0 [facility] Blood platelet mean volumeOr dered By: Dianna Guido on 05-14-2023 Platelet mean volume (Bld) [Entitic vol] 10.4 fL 6.2-12.0 [facility] Determination of erythrocyte mean corpuscular volume (MCV)Ordered By: Dianna Guido on 05-14-2023 MCV (RBC) [Entitic vol] 88.8 fL 81-99 [facility] Hematocrit Auto (Bld) [Volum e fraction]Ordered By: Dianna uGido on 05-14-2023 Hematocrit (Bld) [Volume fraction] 46.1 % 37-47 [facility] Laboratory - Hematology and Cell countsOrdered By: Dianna Guido on 05-14-2023 Erythrocyte distribution width (RBC) [Entitic vol] 44.3 fL 35.1-43.9 [facility] Erythrocyte distribution width (RBC) [Ratio] 13.6 % 11.6-14.6 [facility] MCH (RBC) [Entitic mass] 27.4 pg 27.0-32.0 [facility] MCHC Auto (RBC) [Mass/Vol]Or dered By: Dianna Guido on 05-14-2023 MCHC (RBC) [Mass/Vol] 30.8 g/dL 32-36 [facility] Platelets bldOrdered By: Zita Guido on 05-14-2023 Platelets (Bld) [#/Vol] 289 10*3/uL 150-450 [facility] Absolute lymphocyte countOrd ered By: Dianna Guido on 04-28-2023 Lymphocytes Auto (Unsp spec) [#/Vol] 1.69 10*3/uL 0.83-4.51 [facility] Basophil percentageOrdered B y: Dianna Guido on 04-28-2023 Basophils/100 WBC (Bld) 0.9 % 0-1 [facility] Chloride [Moles/Vol] 105 mmol/L 98-107 [facility] Eosinophils/100 WBC (Bld) 3.1 % 0-5 [facility] Glucose [Mass/Vol] 93 mg/dL 74-106 [facility] Neutrophils (Bld) [#/Vol] 3.6 10*3/uL 2.0-7.7 [facility] Neutrophils/100 WBC (Bld) 56.0 % 47-70 [facility] Potassium [Moles/Vol] 3.6 mmol/L 3.5-5.1 [facility] Sodium [Moles/Vol] 143 mmol/L 136-145 [facility] WBC (Bld) [#/Vol] 6.4 10*3/uL 4.4-11.0 [facility] Blood erythrocytes count (nu mber/volume)Ordered By: Dianna Guido on 04-28-2023 RBC (Bld) [#/Vol] 4.76 10*6/uL 4.2-5.4 [facility] Blood hemoglobin measurement (mass/volume)Ordered By: Dianna Guido on 04-28-2023 Hemoglobin (Bld) [Mass/Vol] 13.0 g/dL 12.0-15.0 [facility] Blood lymphocytes/100 leukoc ytesOrdered By: Dianna Guido on 04-28-2023 Lymphocytes/100 WBC (Bld) 26.3 % 19-41 [facility] Blood monocytes/100 leukocyt esOrdered By: Dianna Guido on 04-28-2023 Monocytes/100 WBC (Bld) 13.4 % 0-10 [facility] Blood platelet mean volumeOr dered By: Dianna Guido on 04-28-2023 Platelet mean volume (Bld) [Entitic vol] 10.6 fL 6.2-12.0 [facility] Determination of erythrocyte mean corpuscular volume (MCV)Ordered By: Dianna Guido on 04-28-2023 MCV (RBC) [Entitic vol] 91.0 fL 81-99 [facility] Hematocrit Auto (Bld) [Volum e fraction]Ordered By: Dianna Guido on 04-28-2023 Hematocrit (Bld) [Volume fraction] 43.3 % 37-47 [facility] Laboratory - Chemistry and C hemistry - challengeOrdered By: Dianna Guido on 04-28-2023 CO2 [Moles/Vol] 34.0 mmol/L 21.0-32.0 [facility] Magnesium [Mass/Vol] 2.3 mg/dL 1.6-2.6 [facility] Urea nitrogen/Creatinine [Mass ratio] 12.9 mg/mg 10-20 [facility] Laboratory - Hematology and Cell countsOrdered By: Dianna Guido on 04-28-2023 Erythrocyte distribution width (RBC) [Entitic vol] 45.0 fL 35.1-43.9 [facility] Erythrocyte distribution width (RBC) [Ratio] 13.4 % 11.6-14.6 [facility] Immature granulocytes/100 WBC (Bld) 0.300 % 0.0-0.9 [facility] Comment on above: IG% - Immature Granu locytes (promyelocytes, myelocytes and metamyelocytes) > 1% indicates that a LEFT SHIFT is Present. MCH (RBC) [Entitic mass] 27.3 pg 27.0-32.0 [facility] Nucleated RBC/100 WBC (Bld) [Ratio] 0 % 0-5 [facility] MCHC Auto (RBC) [Mass/Vol]Or dered By: Dianna Guido on 04-28-2023 MCHC (RBC) [Mass/Vol] 30.0 g/dL 32-36 [facility] No Panel InformationOrdered By: Dianna Guido on 04-28-2023 Estimated GFR (MDRD) Amer 92 mL/min >60 [facility] Comment on above: GFR Calc Estimated GFR (MDRD) Non-Af Amer 76 mL/min >60 [facility] Comment on above: Non- GFR Calc Platelets bldOrdered By: Zita Guido on 04-28-2023 Platelets (Bld) [#/Vol] 253 10*3/uL 150-450 [facility] Serum or plasma calcium slava urement (mass/volume)Ordered By: Dianna Guido on 04-28-2023 Calcium [Mass/Vol] 8.6 mg/dL 8.5-10.1 [facility] Serum or plasma creatinine m easurement (mass/volume)Ordered By: Dianna Guido on 04-28-2023 Creatinine [Mass/Vol] 0.78 mg/dL 0.55-1.02 [facility] Comment on above: The validity of the calculated GFR & GFRAA in patients over 70 years has not been determined. Clinical correlation is essential. Serum or plasma urea nitroge n measurement (mass/volume)Ordered By: Dianna Guido on 04-28-2023 Urea nitrogen [Mass/Vol] 10 mg/dL 7-18 [facility] Thin prep Papanicolaou smear with manual screeningOrdered By: Dianna Guido on 04-28-2023 Thin prep Papanicolaou smear with manual screening 4 5-15 [facility] Basophil percentageOrdered B y: Dainna Guido on 03-26-2023 Chloride [Moles/Vol] 104 mmol/L 98-107 [facility] Glucose [Mass/Vol] 98 mg/dL 74-106 [facility] Potassium [Moles/Vol] 3.9 mmol/L 3.5-5.1 [facility] Sodium [Moles/Vol] 140 mmol/L 136-145 [facility] Laboratory - Chemistry and C hemistry - challengeOrdered By: Dianna Guido on 03-26-2023 CO2 [Moles/Vol] 33.0 mmol/L 21.0-32.0 [facility] Magnesium [Mass/Vol] 2.5 mg/dL 1.6-2.6 [facility] Urea nitrogen/Creatinine [Mass ratio] 15.0 mg/mg 10-20 [facility] No Panel InformationOrdered By: Dianna Guido on 03-26-2023 Estimated GFR (MDRD) Amer 98 mL/min >60 [facility] Comment on above: GFR Calc Estimated GFR (MDRD) Non-Af Amer 81 mL/min >60 [facility] Comment on above: Non- GFR Calc Serum or plasma calcium slava urement (mass/volume)Ordered By: Dianna Guido on 03-26-2023 Calcium [Mass/Vol] 9.1 mg/dL 8.5-10.1 [facility] Serum or plasma creatinine m easurement (mass/volume)Ordered By: Dianna Guido on 03-26-2023 Creatinine [Mass/Vol] 0.73 mg/dL 0.55-1.02 [facility] Comment on above: The validity of the calculated GFR & GFRAA in patients over 70 years has not been determined. Clinical correlation is essential. Serum or plasma urea nitroge n measurement (mass/volume)Ordered By: Dianna Guido on 03-26-2023 Urea nitrogen [Mass/Vol] 11 mg/dL - [facility] Thin prep Papanicolaou smear with manual screeningOrdered By: Dianna Guido on 03-26-2023 Thin prep Papanicolaou smear with manual screening 3 5-15 [facility] Basophil percentageOrdered B y: Dianna Guido on 02-27-2023 Chloride [Moles/Vol] 105 mmol/L 98-107 [facility] Glucose [Mass/Vol] 103 mg/dL 74-106 [facility] Comment on above: Fasting Glucose resu lt from 100 to 125 mg/dL suggests IMPAIRED HOMEOSTASIS per A.D.A. criteria. Potassium [Moles/Vol] 3.8 mmol/L 3.5-5.1 [facility] Sodium [Moles/Vol] 140 mmol/L 136-145 [facility] Laboratory - Chemistry and C hemistry - challengeOrdered By: Dianna Guido on 02-27-2023 CO2 [Moles/Vol] 33.0 mmol/L 21.0-32.0 [facility] Magnesium [Mass/Vol] 2.3 mg/dL 1.6-2.6 [facility] Urea nitrogen/Creatinine [Mass ratio] 13.1 mg/mg 10-20 [facility] No Panel InformationOrdered By: Dianna Guido on 02-27-2023 Estimated GFR (MDRD) Amer 93 mL/min >60 [facility] Comment on above: GFR Calc Estimated GFR (MDRD) Non-Af Amer 77 mL/min >60 [facility] Comment on above: Non- GFR Calc Serum or plasma calcium slava urement (mass/volume)Ordered By: Dianna Guido on 02-27-2023 Calcium [Mass/Vol] 8.9 mg/dL 8.5-10.1 [facility] Serum or plasma creatinine m easurement (mass/volume)Ordered By: Dianna Guido on 02-27-2023 Creatinine [Mass/Vol] 0.76 mg/dL 0.55-1.02 [facility] Comment on above: The validity of the calculated GFR & GFRAA in patients over 70 years has not been determined. Clinical correlation is essential. Serum or plasma urea nitroge n measurement (mass/volume)Ordered By: Dianna Guido on 02-27-2023 Urea nitrogen [Mass/Vol] 10 mg/dL 7-18 [facility] Thin prep Papanicolaou smear with manual screeningOrdered By: Dianna Guido on 02-27-2023 Thin prep Papanicolaou smear with manual screening 2 5-15 [facility] Basophil percentageOrdered B y: Dianna Guido on 01-03-2023 Chloride [Moles/Vol] 104 mmol/L 98-107 [facility] Glucose [Mass/Vol] 107 mg/dL 74-106 [facility] Comment on above: Fasting Glucose resu lt from 100 to 125 mg/dL suggests IMPAIRED HOMEOSTASIS per A.D.A. criteria. Potassium [Moles/Vol] 3.8 mmol/L 3.5-5.1 [facility] Sodium [Moles/Vol] 141 mmol/L 136-145 [facility] Laboratory - Chemistry and C hemistry - challengeOrdered By: Dianna Guido on 01-03-2023 CO2 [Moles/Vol] 31.0 mmol/L 21.0-32.0 [facility] Urea nitrogen/Creatinine [Mass ratio] 10.0 mg/mg 10-20 [facility] No Panel InformationOrdered By: Dianna Guido on 01-03-2023 Estimated GFR (MDRD) Amer 104 mL/min >60 [facility] Comment on above: GFR Calc Estimated GFR (MDRD) Non-Af Amer 86 mL/min >60 [facility] Comment on above: Non- GFR Calc Serum or plasma calcium slava urement (mass/volume)Ordered By: Dianna Guido on 01-03-2023 Calcium [Mass/Vol] 9.0 mg/dL 8.5-10.1 [facility] Serum or plasma creatinine m easurement (mass/volume)Ordered By: Dianna Guido on 01-03-2023 Creatinine [Mass/Vol] 0.70 mg/dL 0.55-1.02 [facility] Comment on above: The validity of the calculated GFR & GFRAA in patients over 70 years has not been determined. Clinical correlation is essential. Serum or plasma urea nitroge n measurement (mass/volume)Ordered By: Dianna Guido on 01-03-2023 Urea nitrogen [Mass/Vol] 7 mg/dL 7-18 [facility] Thin prep Papanicolaou smear with manual screeningOrdered By: Dianna Guido on 01-03-2023 Thin prep Papanicolaou smear with manual screening 6 5-15 [facility] Absolute lymphocyte countOrd ered By: Dianna Guido on 12-24-2022 Lymphocytes Auto (Unsp spec) [#/Vol] 1.38 10*3/uL 0.83-4.51 [facility] Basophil percentageOrdered B y: Dianna Guido on 12-24-2022 Basophils/100 WBC (Bld) 0.7 % 0-1 [facility] Chloride [Moles/Vol] 103 mmol/L 98-107 [facility] Eosinophils/100 WBC (Bld) 2.5 % 0-5 [facility] Glucose [Mass/Vol] 111 mg/dL 74-106 [facility] Comment on above: Fasting Glucose resu lt from 100 to 125 mg/dL suggests IMPAIRED HOMEOSTASIS per A.D.A. criteria. Neutrophils (Bld) [#/Vol] 3.7 10*3/uL 2.0-7.7 [facility] Neutrophils/100 WBC (Bld) 62.1 % 47-70 [facility] Potassium [Moles/Vol] 3.4 mmol/L 3.5-5.1 [facility] Sodium [Moles/Vol] 139 mmol/L 136-145 [facility] WBC (Bld) [#/Vol] 5.9 10*3/uL 4.4-11.0 [facility] Blood erythrocytes count (nu mber/volume)Ordered By: Dianna Guido on 12-24-2022 RBC (Bld) [#/Vol] 5.38 10*6/uL 4.2-5.4 [facility] Blood hemoglobin measurement (mass/volume)Ordered By: Dianna Guido on 12-24-2022 Hemoglobin (Bld) [Mass/Vol] 14.9 g/dL 12.0-15.0 [facility] Blood lymphocytes/100 leukoc ytesOrdered By: Dianna Guido on 12-24-2022 Lymphocytes/100 WBC (Bld) 23.4 % 19-41 [facility] Blood monocytes/100 leukocyt esOrdered By: Dianna Guido on 12-24-2022 Monocytes/100 WBC (Bld) 11.0 % 0-10 [facility] Blood platelet mean volumeOr dered By: Dianna Guido on 12-24-2022 Platelet mean volume (Bld) [Entitic vol] 9.6 fL 6.2-12.0 [facility] Determination of erythrocyte mean corpuscular volume (MCV)Ordered By: Dianna Guido on 12-24-2022 MCV (RBC) [Entitic vol] 90.0 fL 81-99 [facility] Hematocrit Auto (Bld) [Volum e fraction]Ordered By: Dianna Guido on 12-24-2022 Hematocrit (Bld) [Volume fraction] 48.4 % 37-47 [facility] Laboratory - Chemistry and C hemistry - challengeOrdered By: Dianna Guido on 12-24-2022 CO2 [Moles/Vol] 31.0 mmol/L 21.0-32.0 [facility] Urea nitrogen/Creatinine [Mass ratio] 9.0 mg/mg 10-20 [facility] Laboratory - Hematology and Cell countsOrdered By: Dianna Guido on 12-24-2022 Erythrocyte distribution width (RBC) [Entitic vol] 44.5 fL 35.1-43.9 [facility] Erythrocyte distribution width (RBC) [Ratio] 13.5 % 11.6-14.6 [facility] Immature granulocytes/100 WBC (Bld) 0.300 % 0.0-0.9 [facility] Comment on above: IG% - Immature Granu locytes (promyelocytes, myelocytes and metamyelocytes) > 1% indicates that a LEFT SHIFT is Present. MCH (RBC) [Entitic mass] 27.7 pg 27.0-32.0 [facility] Nucleated RBC/100 WBC (Bld) [Ratio] 0 % 0-5 [facility] MCHC Auto (RBC) [Mass/Vol]Or dered By: Dianna Guido on 12-24-2022 MCHC (RBC) [Mass/Vol] 30.8 g/dL 32-36 [facility] No Panel InformationOrdered By: Dianna Guido on 12-24-2022 Estimated GFR (MDRD) Amer 109 mL/min >60 [facility] Comment on above: GFR Calc Estimated GFR (MDRD) Non-Af Amer 90 mL/min >60 [facility] Comment on above: Non- GFR Calc Platelets bldOrdered By: Zita Guido on 12-24-2022 Platelets (Bld) [#/Vol] 283 10*3/uL 150-450 [facility] Serum or plasma calcium slava urement (mass/volume)Ordered By: Dianna Guido on 12-24-2022 Calcium [Mass/Vol] 8.8 mg/dL 8.5-10.1 [facility] Serum or plasma creatinine m easurement (mass/volume)Ordered By: Dianna Guido on 12-24-2022 Creatinine [Mass/Vol] 0.67 mg/dL 0.55-1.02 [facility] Comment on above: The validity of the calculated GFR & GFRAA in patients over 70 years has not been determined. Clinical correlation is essential. Serum or plasma urea nitroge n measurement (mass/volume)Ordered By: Dianna Guido on 12-24-2022 Urea nitrogen [Mass/Vol] 6 mg/dL 7-18 [facility] Thin prep Papanicolaou smear with manual screeningOrdered By: Dianna Guido on 12-24-2022 Thin prep Papanicolaou smear with manual screening 5 5-15 [facility] Absolute lymphocyte countOrd ered By: Dianna Guido on 11-05-2022 Lymphocytes Auto (Unsp spec) [#/Vol] 1.42 10*3/uL 0.83-4.51 [facility] Basophil percentageOrdered B y: Dianna Guido on 11-05-2022 Basophils/100 WBC (Bld) 0.6 % 0-1 [facility] Chloride [Moles/Vol] 106 mmol/L 98-107 [facility] Eosinophils/100 WBC (Bld) 4.1 % 0-5 [facility] Glucose [Mass/Vol] 90 mg/dL 74-106 [facility] Neutrophils (Bld) [#/Vol] 3.0 10*3/uL 2.0-7.7 [facility] Neutrophils/100 WBC (Bld) 55.5 % 47-70 [facility] Potassium [Moles/Vol] 4.0 mmol/L 3.5-5.1 [facility] Sodium [Moles/Vol] 141 mmol/L 136-145 [facility] WBC (Bld) [#/Vol] 5.4 10*3/uL 4.4-11.0 [facility] Blood erythrocytes count (nu mber/volume)Ordered By: Dianna Guido on 11-05-2022 RBC (Bld) [#/Vol] 5.26 10*6/uL 4.2-5.4 [facility] Blood hemoglobin measurement (mass/volume)Ordered By: Dianna Guido on 11-05-2022 Hemoglobin (Bld) [Mass/Vol] 14.8 g/dL 12.0-15.0 [facility] Blood lymphocytes/100 leukoc ytesOrdered By: Dianna Guido on 11-05-2022 Lymphocytes/100 WBC (Bld) 26.5 % 19-41 [facility] Blood monocytes/100 leukocyt esOrdered By: Diannahunter Guido on 11-05-2022 Monocytes/100 WBC (Bld) 13.1 % 0-10 [facility] Blood platelet mean volumeOr dered By: Dianna Guido on 11-05-2022 Platelet mean volume (Bld) [Entitic vol] 9.8 fL 6.2-12.0 [facility] Determination of erythrocyte mean corpuscular volume (MCV)Ordered By: Diannahunter Guido on 11-05-2022 MCV (RBC) [Entitic vol] 89.9 fL 81-99 [facility] Hematocrit Auto (Bld) [Volum e fraction]Ordered By: Dianna Guido on 11-05-2022 Hematocrit (Bld) [Volume fraction] 47.3 % 37-47 [facility] Laboratory - Chemistry and C hemistry - challengeOrdered By: Diannahunter Guido on 11-05-2022 CO2 [Moles/Vol] 29.0 mmol/L 21.0-32.0 [facility] Urea nitrogen/Creatinine [Mass ratio] 9.3 mg/mg 10-20 [facility] Laboratory - Hematology and Cell countsOrdered By: Diannahunter Guido on 11-05-2022 Erythrocyte distribution width (RBC) [Entitic vol] 44.0 fL 35.1-43.9 [facility] Erythrocyte distribution width (RBC) [Ratio] 13.4 % 11.6-14.6 [facility] Immature granulocytes/100 WBC (Bld) 0.200 % 0.0-0.9 [facility] Comment on above: IG% - Immature Granu locytes (promyelocytes, myelocytes and metamyelocytes) > 1% indicates that a LEFT SHIFT is Present. MCH (RBC) [Entitic mass] 28.1 pg 27.0-32.0 [facility] Nucleated RBC/100 WBC (Bld) [Ratio] 0 % 0-5 [facility] MCHC Auto (RBC) [Mass/Vol]Or dered By: Dianna Guido on 11-05-2022 MCHC (RBC) [Mass/Vol] 31.3 g/dL 32-36 [facility] No Panel InformationOrdered By: Dianna Guido on 11-05-2022 Estimated GFR (MDRD) Amer 113 mL/min >60 [facility] Comment on above: GFR Calc Estimated GFR (MDRD) Non-Af Amer 94 mL/min >60 [facility] Comment on above: Non- GFR Calc Platelets bldOrdered By: Zita Guido on 11-05-2022 Platelets (Bld) [#/Vol] 239 10*3/uL 150-450 [facility] Serum or plasma calcium slava urement (mass/volume)Ordered By: Dianna Guido on 11-05-2022 Calcium [Mass/Vol] 9.0 mg/dL 8.5-10.1 [facility] Serum or plasma creatinine m easurement (mass/volume)Ordered By: Dianna Guido on 11-05-2022 Creatinine [Mass/Vol] 0.65 mg/dL 0.55-1.02 [facility] Comment on above: The validity of the calculated GFR & GFRAA in patients over 70 years has not been determined. Clinical correlation is essential. Serum or plasma urea nitroge n measurement (mass/volume)Ordered By: Dianna Guido on 11-05-2022 Urea nitrogen [Mass/Vol] 6 mg/dL 7-18 [facility] Thin prep Papanicolaou smear with manual screeningOrdered By: Dianna Guido on 11-05-2022 Thin prep Papanicolaou smear with manual screening 6 5-15 [facility] Absolute lymphocyte counton 04-06-2022 Lymphocytes Auto (Unsp spec) [#/Vol] 1.25 10*3/uL 0.83-4.51 [facility] Work Phone: Basophil percentageon 2021 Basophils/100 WBC (Bld) 0.4 % 0-1 [facility] Work Phone: Chloride [Moles/Vol] 100 mmol/L 98-107 [facility] Work Phone: Eosinophils/100 WBC (Bld) 0.7 % 0-5 [facility] Work Phone: Glucose [Mass/Vol] 116 mg/dL 74-106 [facility] Work Phone: Comment on above: Fasting Glucose resu lt from 100 to 125 mg/dL suggests IMPAIRED HOMEOSTASIS per A.D.A. criteria. Neutrophils (Bld) [#/Vol] 3.5 10*3/uL 2.0-7.7 [facility] Work Phone: Neutrophils/100 WBC (Bld) 60.5 % 47-70 [facility] Work Phone: [phone] Potassium [Moles/Vol] 4.4 mmol/L 3.5-5.1 [facility] Work Phone: Sodium [Moles/Vol] 135 mmol/L 136-145 [facility] Work Phone: WBC (Bld) [#/Vol] 5.7 10*3/uL 4.4-11.0 [facility] Work Phone: Blood erythrocytes count (nu mber/volume)on 04-06-2022 RBC (Bld) [#/Vol] 4.96 10*6/uL 4.2-5.[facility] Blood hemoglobin measurement (mass/volume)on 04-06-2022 Hemoglobin (Bld) [Mass/Vol] 14.0 g/dL 12.0-15.0 [facility] Work Phone: [phone] Blood lymphocytes/100 leukoc yteson 04-06-2022 Lymphocytes/100 WBC (Bld) 21.9 % 19-41 [facility] Work Phone: [phone] Blood monocytes/100 leukocyt eson 04-06-2022 Monocytes/100 WBC (Bld) 16.3 % 0-10 [facility] Work Phone: Blood platelet mean volumeon 04-06-2022 Platelet mean volume (Bld) [Entitic vol] 9.7 fL 6.2-12.0 [facility] Work Phone: Determination of erythrocyte mean corpuscular volume (MCV)on 04-06-2022 MCV (RBC) [Entitic vol] 89.5 fL 81-99 [facility] Work Phone: Hematocrit Auto (Bld) [Volum e fraction]on 04-06-2022 Hematocrit (Bld) [Volume fraction] 44.4 % 37-47 [facility] Work Phone: Laboratory - Chemistry and C hemistry - challengeon 04-06-2022 CO2 [Moles/Vol] 28.0 mmol/L 21.0-32.0 [facility] Work Phone: Urea nitrogen/Creatinine [Mass ratio] 19.6 mg/mg 10-20 [facility] Work Phone: Laboratory - Hematology and Cell countson 04-06-2022 Erythrocyte distribution width (RBC) [Entitic vol] 45.3 fL 35.1-43.9 [facility] Work Phone: Erythrocyte distribution width (RBC) [Ratio] 13.9 % 11.6-14.6 [facility] Work Phone: Immature granulocytes/100 WBC (Bld) 0.200 % 0.0-0.9 [facility] Work Phone: Comment on above: IG% - Immature Granu locytes (promyelocytes, myelocytes and metamyelocytes) > 1% indicates that a LEFT SHIFT is Present. MCH (RBC) [Entitic mass] 28.2 pg 27.0-32.0 [facility] Work Phone: Nucleated RBC/100 WBC (Bld) [Ratio] 0 % 0-5 [facility] Work Phone: MCHC Auto (RBC) [Mass/Vol]on 04-06-2022 MCHC (RBC) [Mass/Vol] 31.5 g/dL 32-36 [facility]: No Panel Informationon 04-06 Estimated GFR (MDRD) Amer 101 mL/min >60 [facility] Work Phone: Comment on above: GFR Calc Estimated GFR (MDRD) Non-Af Amer 84 mL/min >60 [facility] Work Phone: Comment on above: Non- GFR Calc Platelets bldon 04-06-2022 Platelets (Bld) [#/Vol] 212 10*3/uL 150-450 [facility] Work Phone: Serum or plasma C reactive p rotein measurement (mass/volume)on 04-06-2022 CRP [Mass/Vol] 8.87 mg/L 0.0-3.0 [facility] Work Phone: Comment on above: C-Reactive Protein ( CRP) provides useful information for thediagnosis, therapy and monitoring of inflammatory processesand associated diseases. For the evaluation of Relative Riskfor Cardiovascular Disease, a High Sensitivity CRP (HSCRP)should be ordered. Serum or plasma calcium slava urement (mass/volume)on 04-06-2022 Calcium [Mass/Vol] 8.4 mg/dL 8.5-10.1 [facility] Work Phone: Serum or plasma creatinine m easurement (mass/volume)on 04-06-2022 Creatinine [Mass/Vol] 0.71 mg/dL 0.55-1.02 [facility] Work Phone: Comment on above: The validity of the calculated GFR & GFRAA in patients over 70 years has not been determined. Clinical correlation is essential. Serum or plasma urea nitroge n measurement (mass/volume)on 04-06-2022 Urea nitrogen [Mass/Vol] 14 mg/dL 7-18 [facility] Work Phone: Thin prep Papanicolaou smear with manual screeningon 04-06-2022 Thin prep Papanicolaou smear with manual screening 7 5-15 [facility] Work Phone: Absolute lymphocyte counton 03-11-2022 Lymphocytes Auto (Unsp spec) [#/Vol] 1.69 10*3/uL 0.83-4.51 [facility] Work Phone: Basophil percentageon 2021 Basophils/100 WBC (Bld) 1.1 % 0-1 [facility] Work Phone: [phone] Bilirubin [Mass/Vol] 1.80 mg/dL 0.20-1.00 [facility] Work Phone: Comment on above: For patients on eltr ombopag therapy, use of Dimension [place] TBIL is not recommended. Chloride [Moles/Vol] 107 mmol/L 98-107 [facility] Work Phone: [phone] Cholesterol [Mass/Vol] 131 mg/dL <200 [facility] Work Phone: [phone] Comment on above: <200 mg/dL Desirable 200-240 mg/dL Borderline >240 mg/dL High Risk Eosinophils/100 WBC (Bld) 3.7 % 0-5 [facility] Work Phone: Glucose [Mass/Vol] 96 mg/dL 74-106 [facility] Work Phone: [phone] Neutrophils (Bld) [#/Vol] 3.4 10*3/uL 2.0-7.7 [facility] Work Phone: [phone] Neutrophils/100 WBC (Bld) 54.8 % 47-70 [facility] Work Phone: [phone] Potassium [Moles/Vol] 4.0 mmol/L 3.5-5.1 [facility] Work Phone: [phone] Protein [Mass/Vol] 6.3 g/dL 6.4-8.2 [facility] Work Phone: Sodium [Moles/Vol] 143 mmol/L 136-145 [facility] Work Phone: [phone] Triglyceride [Mass/Vol] 111 mg/dL <199 [facility] Work Phone: Comment on above: The drugs N-Acetylcy steine and Metamizole may falsely depress this assay.Serum Triglycerides Reference Interval Normal <150 mg/dL Borderline high 150 - 199 mg/dL High 200 - 499 mg/dL Very High > or = 500 mg/dL WBC (Bld) [#/Vol] 6.2 10*3/uL 4.4-11.0 [facility] Work Phone: Blood erythrocytes count (nu mber/volume)on 03-11-2022 RBC (Bld) [#/Vol] 4.99 10*6/uL 4.2-5.4 [facility] Work Phone: Blood hemoglobin measurement (mass/volume)on 03-11-2022 Hemoglobin (Bld) [Mass/Vol] 13.7 g/dL 12.0-15.0 [facility] Work Phone: Blood lymphocytes/100 leukoc yteson 03-11-2022 Lymphocytes/100 WBC (Bld) 27.5 % 19-41 [facility] Work Phone: Blood monocytes/100 leukocyt eson 03-11-2022 Monocytes/100 WBC (Bld) 12.7 % 0-10 [facility] Work Phone: Blood platelet mean volumeon 03-11-2022 Platelet mean volume (Bld) [Entitic vol] 9.7 fL 6.2-12.0 [facility] Work Phone: Determination of erythrocyte mean corpuscular volume (MCV)on 03-11-2022 MCV (RBC) [Entitic vol] 91.0 fL 81-99 [facility] Work Phone: Hematocrit Auto (Bld) [Volum e fraction]on 03-11-2022 Hematocrit (Bld) [Volume fraction] 45.4 % 37-47 [facility] Work Phone: Laboratory - Chemistry and C hemistry - challengeon 03-11-2022 ALP [Catalytic activity/Vol] 73 U/L 45-117 [facility] Work Phone: ALT [Catalytic activity/Vol] 22 U/L 13-56 [facility] Work Phone: CO2 [Moles/Vol] 32.0 mmol/L 21.0-32.0 [facility] Work Phone: Globulin (S) [Mass/Vol] 3.2 g/dL 2.2-4.2 [facility] Work Phone: Magnesium [Mass/Vol] 2.3 mg/dL 1.6-2.6 [facility] Work Phone: Urea nitrogen/Creatinine [Mass ratio] 13.9 mg/mg 10-20 [facility] Work Phone: Laboratory - Hematology and Cell countson 03-11-2022 Erythrocyte distribution width (RBC) [Entitic vol] 45.4 fL 35.1-43.9 [facility] Work Phone: Erythrocyte distribution width (RBC) [Ratio] 13.5 % 11.6-14.6 [facility] Work Phone: Immature granulocytes/100 WBC (Bld) 0.200 % 0.0-0.9 [facility] Work Phone: Comment on above: IG% - Immature Granu locytes (promyelocytes, myelocytes and metamyelocytes) > 1% indicates that a LEFT SHIFT is Present. MCH (RBC) [Entitic mass] 27.5 pg 27.0-32.0 [facility] Work Phone: Nucleated RBC/100 WBC (Bld) [Ratio] 0 % 0-5 [facility] Work Phone: MCHC Auto (RBC) [Mass/Vol]on 03-11-2022 MCHC (RBC) [Mass/Vol] 30.2 g/dL 32-36 [facility] Work Phone: No Panel Informationon 03-11 Estimated GFR (MDRD) Amer 100 mL/min >60 [facility] Work Phone: Comment on above: GFR Calc Estimated GFR (MDRD) Non-Af Amer 83 mL/min >60 [facility] Work Phone: Comment on above: Non- GFR Calc Platelets bldon 03-11-2022 Platelets (Bld) [#/Vol] 267 10*3/uL 150-450 [facility] Work Phone: Serum or plasma albumin slava urement (mass/volume)on 03-11-2022 Albumin [Mass/Vol] 3.1 g/dL 3.2-5.0 [facility] Work Phone: Serum or plasma albumin/glob ulin mass ratioon 03-11-2022 Albumin/Globulin [Mass ratio] 1.0 {ratio} 0.9-2.4 [facility] Work Phone: Serum or plasma calcium slava urement (mass/volume)on 03-11-2022 Calcium [Mass/Vol] 8.7 mg/dL 8.5-10.1 [facility] Work Phone: Serum or plasma cholesterol in HDL measurement (mass/volume)on 03-11-2022 Cholesterol in HDL [Mass/Vol] 52 mg/dL >40 [facility] Work Phone: Comment on above: The drugs N-Acetylcy steine and Metamizole may falsely depress this assay. Reference Range HDL <40 mg/dL Low HDL Cholesterol HDL >or= 60 mg/dL High HDL Cholesterol Serum or plasma cholesterol in VLDL measurement (mass/volume)on 03-11-2022 Cholesterol in VLDL [Mass/Vol] 22 mg/dL 5-40 [facility] Work Phone: Serum or plasma creatinine m easurement (mass/volume)on 03-11-2022 Creatinine [Mass/Vol] 0.72 mg/dL 0.55-1.02 [facility] Work Phone: Comment on above: The validity of the calculated GFR & GFRAA in patients over 70 years has not been determined. Clinical correlation is essential. Serum or plasma low density lipoprotein (LDL) cholesterol measurement (mass/volume)on 03-11-2022 Cholesterol in LDL [Mass/Vol] 57 mg/dL 0-130 [facility] Work Phone: Serum or plasma urea nitroge n measurement (mass/volume)on 03-11-2022 Urea nitrogen [Mass/Vol] 10 mg/dL 7-18 [facility] Work Phone: Thin prep Papanicolaou smear with manual screeningon 03-11-2022 Thin prep Papanicolaou smear with manual screening 22 U/L 15-37 [facility] Work Phone: Thin prep Papanicolaou smear with manual screening 4 5-15 [facility] Work Phone: Absolute lymphocyte counton 11-19-2021 Lymphocytes Auto (Unsp spec) [#/Vol] 1.92 10*3/uL 0.83-4.51 [facility] Work Phone: Basophil percentageon 2021 Basophils/100 WBC (Bld) 0.5 % 0-1 [facility] Work Phone: Bilirubin [Mass/Vol] 2.00 mg/dL 0.20-1.00 [facility] Work Phone: Comment on above: For patients on eltr ombopag therapy, use of Dimension [place] TBIL is not recommended. Chloride [Moles/Vol] 105 mmol/L 98-107 [facility] Work Phone: Cholesterol [Mass/Vol] 147 mg/dL <200 [facility] Work Phone: Comment on above: <200 mg/dL Desirable 200-240 mg/dL Borderline >240 mg/dL High Risk Eosinophils/100 WBC (Bld) 2.5 % 0-5 [facility] Work Phone: Glucose [Mass/Vol] 89 mg/dL 74-106 [facility] Work Phone: Neutrophils (Bld) [#/Vol] 4.6 10*3/uL 2.0-7.7 [facility] Work Phone: Neutrophils/100 WBC (Bld) 61.2 % 47-70 [facility] Work Phone: Potassium [Moles/Vol] 3.4 mmol/L 3.5-5.1 [facility] Work Phone: [phone] Protein [Mass/Vol] 7.0 g/dL 6.4-8.2 [facility] Work Phone: Sodium [Moles/Vol] 140 mmol/L 136-145 [facility] Work Phone: Triglyceride [Mass/Vol] 108 mg/dL <199 [facility] Work Phone: Comment on above: The drugs N-Acetylcy steine and Metamizole may falsely depress this assay.Serum Triglycerides Reference Interval Normal <150 mg/dL Borderline high 150 - 199 mg/dL High 200 - 499 mg/dL Very High > or = 500 mg/dL WBC (Bld) [#/Vol] 7.5 10*3/uL 4.4-11.0 [facility] Work Phone: Blood erythrocytes count (nu mber/volume)on 11-19-2021 RBC (Bld) [#/Vol] 5.13 10*6/uL 4.2-5.4 [facility] Work Phone: Blood hemoglobin measurement (mass/volume)on 11-19-2021 Hemoglobin (Bld) [Mass/Vol] 14.4 g/dL 12.0-15.0 [facility] Work Phone: Blood lymphocytes/100 leukoc yteson 11-19-2021 Lymphocytes/100 WBC (Bld) 25.5 % 19-41 [facility] Work Phone: Blood monocytes/100 leukocyt eson 11-19-2021 Monocytes/100 WBC (Bld) 10.0 % 0-10 [facility] Work Phone: Blood platelet mean volumeon 11-19-2021 Platelet mean volume (Bld) [Entitic vol] 9.6 fL 6.2-12.0 [facility] Work Phone: Determination of erythrocyte mean corpuscular volume (MCV)on 11-19-2021 MCV (RBC) [Entitic vol] 88.9 fL 81-99 [facility] Work Phone: Hematocrit Auto (Bld) [Volum e fraction]on 11-19-2021 Hematocrit (Bld) [Volume fraction] 45.6 % 37-47 [facility] Work Phone: Laboratory - Chemistry and C hemistry - challengeon 11-19-2021 ALP [Catalytic activity/Vol] 83 U/L 45-117 [facility] Work Phone: ALT [Catalytic activity/Vol] 22 U/L 13-56 [facility] Work Phone: CO2 [Moles/Vol] 29.0 mmol/L 21.0-32.0 [facility] Work Phone: Globulin (S) [Mass/Vol] 3.5 g/dL 2.2-4.2 [facility] Work Phone: Magnesium [Mass/Vol] 2.3 mg/dL 1.6-2.6 [facility] Work Phone: Urea nitrogen/Creatinine [Mass ratio] 15.4 mg/mg 10-20 [facility] Work Phone: Laboratory - Hematology and Cell countson 11-19-2021 Erythrocyte distribution width (RBC) [Entitic vol] 43.1 fL 35.1-43.9 [facility] Work Phone: Erythrocyte distribution width (RBC) [Ratio] 13.2 % 11.6-14.6 [facility] Work Phone: Immature granulocytes/100 WBC (Bld) 0.300 % 0.0-0.9 [facility] Work Phone: Comment on above: IG% - Immature Granu locytes (promyelocytes, myelocytes and metamyelocytes) > 1% indicates that a LEFT SHIFT is Present. MCH (RBC) [Entitic mass] 28.1 pg 27.0-32.0 [facility] Work Phone: Nucleated RBC/100 WBC (Bld) [Ratio] 0 % 0-5 [facility] Work Phone: MCHC Auto (RBC) [Mass/Vol]on 11-19-2021 MCHC (RBC) [Mass/Vol] 31.6 g/dL 32-36 [facility] Work Phone: No Panel Informationon 11-19 Estimated GFR (MDRD) Amer 102 mL/min >60 [facility] Work Phone: Comment on above: GFR Calc Estimated GFR (MDRD) Non-Af Amer 84 mL/min >60 [facility] Work Phone: Comment on above: Non- GFR Calc Vitamin D 25-Hydroxy 51.6 ng/mL [facility] Work Phone: Comment on above: Vitamin D 25(OH) Sta tus Range Deficiency <20 ng/mL (50nmol/L) Insufficiency 20 - 30 ng/mL (50 - 75 nmol/L) Sufficiency 30 - 100 ng/mL (75 - 250 nmol/L) Toxicity >100 ng/mL (>250 nmol/L) Platelets bldon 11-19-2021 Platelets (Bld) [#/Vol] 277 10*3/uL 150-450 [facility] Work Phone: Serum or plasma albumin slava urement (mass/volume)on 11-19-2021 Albumin [Mass/Vol] 3.5 g/dL 3.2-5.0 [facility] Work Phone: Serum or plasma albumin/glob ulin mass ratioon 11-19-2021 Albumin/Globulin [Mass ratio] 1.0 {ratio} 0.9-2.4 [facility] Work Phone: Serum or plasma calcium slava urement (mass/volume)on 11-19-2021 Calcium [Mass/Vol] 9.1 mg/dL 8.5-10.1 [facility] Work Phone: Serum or plasma cholesterol in HDL measurement (mass/volume)on 11-19-2021 Cholesterol in HDL [Mass/Vol] 63 mg/dL >40 [facility] Work Phone: Comment on above: The drugs N-Acetylcy steine and Metamizole may falsely depress this assay. Reference Range HDL <40 mg/dL Low HDL Cholesterol HDL >or= 60 mg/dL High HDL Cholesterol Serum or plasma cholesterol in VLDL measurement (mass/volume)on 11-19-2021 Cholesterol in VLDL [Mass/Vol] 22 mg/dL 5-40 [facility] Work Phone: Serum or plasma creatinine m easurement (mass/volume)on 11-19-2021 Creatinine [Mass/Vol] 0.71 mg/dL 0.55-1.02 [facility] Work Phone: Comment on above: The validity of the calculated GFR & GFRAA in patients over 70 years has not been determined. Clinical correlation is essential. Serum or plasma low density lipoprotein (LDL) cholesterol measurement (mass/volume)on 11-19-2021 Cholesterol in LDL [Mass/Vol] 62 mg/dL 0-130 [facility] Work Phone: Serum or plasma urea nitroge n measurement (mass/volume)on 11-19-2021 Urea nitrogen [Mass/Vol] 11 mg/dL 7-18 [facility] Work Phone: Thin prep Papanicolaou smear with manual screeningon 11-19-2021 Thin prep Papanicolaou smear with manual screening 27 U/L 15-37 [facility] Work Phone: Thin prep Papanicolaou smear with manual screening 6 5-15 [facility] Work Phone: Culture, urineon 08-17-2021 Bacteria identified Cx Nom (U) Enterococcus faecalis [facility] Work Phone: CBC (NO DIFF)on 11-24-2019 CBC (NO DIFF) Normal [facility] Comment on above: Result Comment: CBC( WITHOUT DIFFERENTIAL) Performed By: #### 2 [id number] #### [address] [address] Erythrocyte distribution width (RBC) [Ratio] 13.9 % Normal 12.0 - 15.6 [facility] Comment on above: Performed By: #### 2 [id number] #### [facility],[address] [place] [address] Hematocrit (Bld) [Volume fraction] 44.1 % Normal 34.0 - 46.0 [facility] Comment on above: Performed By: #### 2 [id number] #### [facility],[address] [place] [address] Hemoglobin (Bld) [Mass/Vol] 15.0 g/dL Normal 12.0 - 16.0 [facility] Comment on above: Performed By: #### 2 [id number] #### [place] [id number] MCH (RBC) [Entitic mass] 30 pg Normal 27 - 33 [facility] Comment on above: Performed By: #### 2 [id number] #### [place] [address] MCHC (RBC) [Mass/Vol] 34 X10 3 Normal 32 - 36 [facility] Comment on above: Performed By: #### 2 52116 #### [address] [address] MCV (RBC) [Entitic vol] 87 fL Normal 80 - 99 [facility] Comment on above: Performed By: #### 2 [id number] #### [address] [address] Platelet mean volume (Bld) [Entitic vol] 7.5 fL Normal 6.6 - 10.5 [facility] Comment on above: Performed By: #### 2 [id number] #### [place] [id number] Platelets (Bld) [#/Vol] 263 x10EE3/UL Normal 150 - 450 [facility] Comment on above: Performed By: #### 2 [id number] #### [facility],[address] [place] [address] RBC (Bld) [#/Vol] 5.09 x 10EE6/UL Normal 4.10 - 5.30 [facility] Comment on above: Performed By: #### 2 65556 #### [facility],[address] [place] [address] WBC (Bld) [#/Vol] 7.5 x 10EE3/UL Normal 4.5 - 10.8 [facility] Comment on above: Performed By: #### 2 00957 #### [facility],[address] [place] [address] CMP with eGFRon 11-24-2019 Age - Reported 79 years Normal [facility] Comment on above: Performed By: #### 2 [id number] #### [facility],[address] [place] [address] Albumin [Mass/Vol] 4.3 g/dL Normal 3.4 - 4.8 [facility] Comment on above: Performed By: #### 2 10392 #### [facility],[address] [place] [address] Albumin/Globulin [Mass ratio] 1.5 {ratio} Normal 0.9 - 1.6 [facility] Comment on above: Performed By: #### 2 [id number] #### [facility],[address] [place] [address] ALK PHOS 56 U/L Normal 38 - 126 [facility] Comment on above: Performed By: #### 2 45990 #### [facility],[address] [place] [address] ALT/SGPT 14 U/L Normal 8 - 35 [facility] Comment on above: Performed By: #### 2 20373 #### [facility],[address] [place] [address] Anion gap [Moles/Vol] 11 mmol/L Normal 10 - 20 [facility] Comment on above: Performed By: #### 2 69451 #### [facility],[address] [place] [address] AST/SGOT 22 U/L Normal 13 - 39 [facility] Comment on above: Performed By: #### 2 25056 #### [facility],[address] [place] [address] B/C RATIO 18 ratio Normal 0 - 30 [facility] Comment on above: Performed By: #### 2 10199 #### [facility],[address] [place] [address] Bilirubin [Mass/Vol] 1.8 mg/dL High 0.0 - 1.5 [facility] Comment on above: Performed By: #### 2 09241 #### [facility],[address] [place] [address] Calcium [Mass/Vol] 9.6 mg/dL Normal 8.6 - 10.2 [facility] Comment on above: Performed By: #### 2 84590 #### [facility],[address] [place] [address] Chloride [Moles/Vol] 100 mmol/L Normal 98 - 107 [facility] Comment on above: Performed By: #### 2 30754 #### [facility],[address] [place] [address] CO2 [Moles/Vol] 28.8 mmol/L Normal 21.0 - 31.0 [facility] Comment on above: Performed By: #### 2 [id number] #### [facility],[address] [place] [address] Creatinine [Mass/Vol] 0.6 mg/dL Normal 0.6 - 1.2 [facility] Comment on above: Performed By: #### 2 43043 #### [address] [address] GFR/1.73 sq M predicted among non-blacks MDRD (S/P/Bld) [Vol rate/Area] mL/min/{1.73_m2} Normal 60 - 999 [facility] Comment on above: Result Comment: ACCO RDING TO THE NATIONAL KIDNEY DISEASE EDUCATION PROGRAM(NKDE), A NORMAL eGFR IS A VALUE GREATER THAN OR EQUAL TO 60 ML/MIN/1.73 SQ METERS. CHRONIC KIDNEY DISEASE: <60mL/MIN/1.73 SQ METERS KIDNEY FAILURE: <15mL/MIN/1.73 SQ METERS THIS TEST SHOULD ONLY BE USED FOR PATIENTS 18 YEARS OF AGE AND OLDER. Performed By: #### 2 [id number] #### [address] [address] GFR/1.73 sq M predicted among non-blacks MDRD (S/P/Bld) [Vol rate/Area] Normal [facility] Comment on above: Result Comment: COMP REHENSIVE METABOLIC PANEL Performed By: #### 2 [id number] #### [address] [address] Globulin (S) [Mass/Vol] 2.9 g/dL Normal 1.5 - 3.8 [facility] Comment on above: Performed By: #### 2 75833 #### [address] [address] Glucose [Mass/Vol] 90 mg/dL Normal 74 - 106 [facility] Comment on above: Performed By: #### 2 85196 #### [address] [address] Potassium [Moles/Vol] 3.8 mmol/L Normal 3.5 - 5.1 [facility] Comment on above: Performed By: #### 2 64499 #### [address] [place] [address] Protein [Mass/Vol] 7.2 g/dL Normal 6.4 - 8.3 [facility] Comment on above: Performed By: #### 2 77517 #### [facility],[address] [place] [address] Sodium [Moles/Vol] 136 mmol/L Normal 136 - 145 [facility] Comment on above: Performed By: #### 2 20941 #### [facility],[address] [place] [address] Urea nitrogen [Mass/Vol] 11 mg/dL Normal 6 - 20 [facility] Comment on above: Performed By: #### 2 74046 #### [facility],[address] [place] [address] Culture, urine Bacteria identified Cx Nom (U) Enterococcus faecalis [facility] Work Phone: Vital Signs Date Time Vital Sign Value Performing Clinician Facility 01-31-2025 14:08-0400 Body temperature 98.49 [degF] Alicia Nava MD Work Phone: [facility] 01-31-2025 14:08-0400 Diastolic blood pressure 71 mm[Hg] Alicia Nava MD Work Phone: [facility] 01-31-2025 14:08-0400 Heart rate 85 /min Alicia Nava MD Work Phone: [facility] 01-31-2025 14:08-0400 Respiratory rate 18 /min Alicia Nava MD Work Phone: [facility] 01-31-2025 14:08-0400 SaO2% (BldA) [Mass fraction] 97 % Alicia Nava MD Work Phone: [facility] 01-31-2025 14:08-0400 Systolic blood pressure 110 mm[Hg] Alicia Nava MD Work Phone: [facility] 01-31-2025 04:47-0400 Body mass index (BMI) [Ratio] 20.05 kg/m2 Alicia Nava MD Work Phone: [facility] 01-31-2025 04:47-0400 Body weight 61.6 kg Alicia Nava MD Work Phone: [facility] 01-25-2025 18:06-0400 Heart rate 82 /min Alicia Nava MD Work Phone: [facility] 01-25-2025 12:05-0400 Body height 175.3 cm Alicia Nava MD Work Phone: [facility] 01-25-2025 10:43-0400 Diastolic blood pressure 74 mm[Hg] Dr. Karen Lang MD Work Phone: [facility] 01-25-2025 10:43-0400 Heart rate 84 /min Dr. Karen Lang MD Work Phone: [facility] 01-25-2025 10:43-0400 Respiratory rate 15 /min Dr. Karen Lang MD Work Phone: [facility] 01-25-2025 10:43-0400 SaO2% (BldA) [Mass fraction] 96 % Dr. Karen Lang MD Work Phone: [facility] 01-25-2025 10:43-0400 Systolic blood pressure 110 mm[Hg] Dr. Karen Lang MD Work Phone: [facility] 01-25-2025 09:43-0400 Body temperature 98.4 [degF] Dr. Karen Lang MD Work Phone: [facility] 01-24-2025 21:15-0400 Body height 172.[address] Karen Lang MD Work Phone: [facility] 01-24-2025 21:15-0400 Body mass index (BMI) [Ratio] 19.8 kg/m2 Dr. Karen Lang MD Work Phone: [facility] 01-24-2025 21:15-0400 Body weight 59.[address] Karen Lang MD Work Phone: [facility] 06-25-2023 14:01-0500 Body mass index (BMI) [Ratio] 21 kg/m2 [facility] 06-25-2023 14:01-0500 Body temperature 96.7 [degF] [facility] 06-25-2023 14:01-0500 Diastolic blood pressure 75 mm[Hg] [facility] 06-25-2023 14:01-0500 Heart rate 83 /min [facility] 06-25-2023 14:01-0500 Respiratory rate 16 /min [facility] 06-25-2023 14:01-0500 Systolic blood pressure 125 mm[Hg] [facility] 06-11-2023 13:11-0500 Body mass index (BMI) [Ratio] 21 kg/m2 [facility] 06-11-2023 13:11-0500 Diastolic blood pressure 69 mm[Hg] [facility] 06-11-2023 13:11-0500 Heart rate 83 /min [facility] 06-11-2023 13:11-0500 Respiratory rate 18 /min [facility] 06-11-2023 13:11-0500 Systolic blood pressure 123 mm[Hg] [facility] 06-09-2023 00:26-0500 Body temperature 98.7 [degF] [facility] 06-09-2023 00:26-0500 Body weight 62.77 kg [facility] 06-04-2023 13:12-0500 Body mass index (BMI) [Ratio] 21 kg/m2 [facility] 06-04-2023 13:12-0500 Body temperature 98.7 [degF] [facility] 06-04-2023 13:12-0500 Diastolic blood pressure 67 mm[Hg] [facility] 06-04-2023 13:12-0500 Heart rate 89 /min [facility] 06-04-2023 13:12-0500 Respiratory rate 20 /min [facility] 06-04-2023 13:12-0500 Systolic blood pressure 116 mm[Hg] [facility] 05-28-2023 13:02-0500 Body mass index (BMI) [Ratio] 21 kg/m2 [facility] 05-28-2023 13:02-0500 Diastolic blood pressure 88 mm[Hg] [facility] 05-28-2023 13:02-0500 Heart rate 90 /min [facility] 05-28-2023 13:02-0500 Respiratory rate 16 /min [facility] 05-28-2023 13:02-0500 Systolic blood pressure 131 mm[Hg] [facility] 05-21-2023 13:12-0500 Body height 172.72 cm [facility] 05-21-2023 13:12-0500 Body temperature 96.8 [degF] [facility] 05-21-2023 13:12-0500 Body weight 62.77 kg [facility] Encounters Encounter Date Encounter Type Care Provider Facility Start: 02-14-2025 End: 02-14-2025 Admission to same day surgery center Isauro Frias MD Work Phone: [facility] Gastroenterology Start: 02-09-2025 End: 02-09-2025 Admission to same day surgery center Isauro Frias MD Work Phone: [facility] Start: 02-09-2025 ambulatory Dianna Gudla OLS Facili ty:[facility] Start: 02-02-2025 ambulatory Dianna Gudla OLS Facili ty:[facility] Start: 02-01-2025 End: 02-01-2025 Telephone encounter Anselmo Whittaker MD Work Phone: [facility] Radiology Start: 01-28-2025 ambulatory NORA HAYS Facility:[facility] Start: 01-27-2025 ambulatory UNKNOWN PROVIDER Facili ty:[facility] Start: 01-25-2025 End: 01-25-2025 ambulatory UNKNOWN PROVIDER Facility:[facility] Start: 01-25-2025 End: 01-25-2025 Telephone encounter Keyon Fallon DO Work Phone: [facility] Medicine Start: 01-25-2025 End: 01-31-2025 Evaluation and management of inpatient Alicia Nava MD Work Phone: [facility] [address] [facility] Comment on above: Rectal bleeding (Trang brandan Dx); Unspecified right bundle-branch block; Abnormal electrocardiogram (ECG) (EKG); Abnormal electrocardiogram (ECG) (EKG); Polyp of ascending colon, unspecified type; Hyperlipidemia, unspecified hyperlipidemia type [E78.5]; Acute blood loss anemia (ABLA) [D62]; 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 Karen Lang MD Work Phone: -Emergency Department Work Phone: Start: 11-08-2024 End: 11-08-[address] Karen Lang MD Work Phone: [facility] Work Phone: Start: 11-08-2024 End: 11-08-[address] Dianna Guido MD -[facility] Work Phone: Start: 11-08-2024 End: 11-08-2024 ambulatory Dianna Guluis angela OLS Facility:[facility] Start: 10-04-2024 ambulatory Dianna Guluis angela OLS Facili ty:[facility] Start: 10-04-[address] Dianna Guido MD -[facility] Work Phone: Start: 05-31-2024 End: 05-31-2024 ambulatory Diannahunter Maldonadoa OLS Facility:[facility] Start: 03-24-2024 End: 03-24-2024 ambulatory Dianna Guluis angela OLS Facility:[facility] Start: 06-25-2023 End: 07-09-2023 ambulatory [facility] Work Phone: Start: 06-25-2023 End: 07-09-2023 Discharged [facility] Work Phone: Start: 06-11-2023 Registered [facility] Work Phone: Start: 06-04-2023 End: 06-08-2023 ambulatory [facility] Work Phone: Start: 06-04-2023 End: 06-08-2023 Discharged [facility] Work Phone: Start: 05-28-2023 Registered [facility] Work Phone: Start: 05-19-2023 End: 05-19-2023 ambulatory [facility] Work Phone: Start: 05-19-2023 End: 05-19-2023 Departed Referred [facility] Work Phone: Start: 05-16-2023 End: 05-16-2023 ambulatory [facility] Work Phone: Start: 05-16-2023 End: 05-16-2023 Departed Referred [facility] Start: 05-16-2023 Registered Referred [facility] Start: 05-14-2023 End: 05-14-2023 ambulatory [facility] Work Phone: Start: 05-14-2023 End: 05-14-2023 Departed [facility]erred [facility] Work Phone: Start: 04-28-2023 End: 04-28-2023 ambulatory [facility] Work Phone: Start: 04-28-2023 End: 04-28-2023 Departed [facility]erred [facility] Work Phone: Start: 03-26-2023 End: 03-26-2023 ambulatory [facility] Work Phone: Start: 03-26-2023 End: 03-26-2023 Departed [facility]erred [facility] Work Phone: Start: 02-27-2023 End: 02-27-2023 Departed [facility]erred [facility] Work Phone: Start: 02-27-2023 Registered Referred [facility] Work Phone: Start: 01-03-2023 End: 01-03-2023 ambulatory [facility] Work Phone: Start: 01-03-2023 End: 01-03-2023 Departed Referred [facility] Work Phone: Start: 12-24-2022 End: 12-24-2022 Departed [facility] Work Phone: Start: 11-05-2022 Registered Referred [facility] Work Phone: Start: 04-06-2022 End: 04-06-2022 ambulatory [facility] Work Phone: Start: 04-06-2022 End: 04-06-2022 Departed [facility]erred [facility] Start: 03-11-2022 End: 03-11-2022 Departed [facility] Start: 11-19-2021 End: 11-19-2021 Departed [facility]erred [facility] Start: 08-17-2021 End: 08-17-2021 Departed [facility]erred [facility] Start: 09-05-2020 End: 09-05-2020 Patient encounter procedure MAMTA NIÑO [facility] Start: 08-11-2020 End: 08-11-2020 Patient encounter procedure MAMTA NIÑO [facility] Start: 11-24-2019 End: 11-24-2019 Patient encounter procedure MIKE BRICENO HAOBRAVO [facility] Start: 11-05-2019 Encounter for genera l adult medical examination without abnormal findings PAUL WEEKS [facility] Start: 11-05-2019 Patient encounter procedure PAUL GARCIA [facility] Procedures Date Procedure Procedure Detail Performing Clinician Start: 02-24-2025 Colonoscopy Alicia de la vega MD Work Phone: Start: 01-31-2025 Blood count smear mc rscp w/mnl difrntl wbc count Aliza Hancock MD Work Phone: Start: 01-30-2025 Assay of magnesium Jerrell Hancock MD Work Phone: Start: 01-29-2025 Assay of magnesium Jerrell Hancock MD Work Phone: Start: 01-28-2025 Prothrombin time Daniel vargas MD Work Phone: Start: 01-28-2025 Assay of magnesium Jerrell Hancock MD Work Phone: Start: 01-27-2025 Colonoscopy w/biopsy single/multiple Juan Parikh MD Work Phone: Start: 01-27-2025 End: 01-27-2025 Colonoscopy flx dx w/collj spec when pfrmd Adrien Caraballo MD Work Phone: Start: 01-27-2025 Assay of magnesium Jerrell Hancock MD Work Phone: Start: 01-26-2025 Blood count smear mc rscp w/mnl difrntl wbc count Wilbert Pérez MD Work Phone: Start: 01-26-2025 Assay of magnesium Jerrell Hancock MD Work Phone: Start: 01-25-2025 Blood count complete automated Ketty Purighalla DO Work Phone: Start: 01-25-2025 Ct angio abd&plvis c ntrst mtrl w/wo cntrst img Wilbert Pérez MD Work Phone: Start: 01-25-2025 End: 01-25-2025 Blood typing serologic abo Daniel Whitt MD Work Phone: Start: 01-25-2025 End: 01-25-2025 Assay of lactate Wilbert Pérez MD Work Phone: Start: 01-25-2025 Ecg routine ecg w/le ast 12 lds trcg only w/o i&r Daniel Whitt MD Work Phone: Start: 01-25-2025 Blood typing, ABO, R ho(D) and RBC antibody screening Daniel Whitt MD Work Phone: Start: 01-24-2025 Computed tomography of abdomen and pelvis with contrast Dr. Karen Lang MD Work Phone: Start: 01-24-[address] Karen Lang MD Work Phone: Start: 01-24-2025 Measurement of occul t blood in stool specimen using immunoassay Dr. Karen Lang MD Work Phone: Start: 10-04-2024 Vitamin D, 25-hydrox y measurement Dr. Karen Lang MD Work Phone: Comment on above: Vitamin D StatusDefi ciency: <20 ng/mL (50nmol/L)Insufficiency: 20-30 ng/mL (50-75 nmol/L)Sufficiency: 30-100 ng/mL (75-250 nmol/L)Toxicity: >100 ng/mL (>250 nmol/L) Start: 05-22-2023 Anaerobic microbial culture Start: 05-22-2023 Investigation of transfusion reaction Start: 05-22-2023 Microbial culture, routine Start: 05-16-2023 Investigation of transfusion reaction Start: 05-16-2023 Microbial culture, routine Start: 08-17-2021 Urine culture Urine culture Plan of Treatment Date Care Activity Detail Author Start: 02-24-2035 Screening for malign ant neoplasm of colon [facility] Start: 01-24-2026 Screening for malign ant neoplasm of colon FIT [facility] Start: 05-04-2025 End: 02-01-2026 RFA Hepatic artery Views W contrast IA XA HEPATIC ARTERY COMMON (KATYA) Imaging Routine Aneurysm of hepatic artery (HCC) Expected: 05/04/2025, Expires: 02/01/2026 [facility] Work Phone: Comment on above: Expected: 05/04/2025 , Expires: 02/01/2026 Start: 03-09-2025 Influenza vaccination Influenz a Vaccine (#1) [facility] Start: 02-24-2025 End: 02-24-2025 Admission to same day surgery center [facility] Comment on above: COLONOSCOPY Start: 02-24-2025 End: 02-24-2025 Colonoscopy flx dx w/collj spec when pfrmd [facility] Start: 02-24-2025 Subsequent hospital visit by physician [facility] Start: 02-07-2025 COVID-19 Vaccine ( season) COVID-19 Vaccine ( season) [facility] Start: 01-25-2025 Administration of bl ood product [facility] Start: 01-25-2025 [facility] Start: 01-24-2025 [facility] Start: 01-07-2025 Welcome to Medicare Visit (G0402) Welcome to Medicare Visit (G0402) [facility] Start: 02-08-2024 COVID-19 Vaccine ( season) COVID-19 Vaccine ( season) [facility] Start: 05-22-2023 Microbial culture, routine Wound Culture [facility] Start: 05-22-2023 [facility] Start: 2017 RSV vaccine (adult) (1 - 1-dose 75+ series) RSV vaccine (adult) (1 - 1-dose 75+ series) [facility] Start: 2007 Screening for osteoporosis Bone Densitometry [facility] Start: 2002 Hepatitis B (HBV) Vaccine (optional start 60+ years) Hepatitis B (HBV) Vaccine (optional start 60+ years) [facility] Start: 1992 Pneumococcal vaccination Pneum ococcal Vaccine(s) (50+ yrs) (1 of 1 - PCV) [facility] Start: 1992 Shingles (RZV) Vacci ne (1 of 2) Shingles (RZV) Vaccine (1 of 2) [facility] Start: 1987 Screening for malign ant neoplasm of colon Cologuard (Stool DNA) [facility] Start: 1961 Hepatitis A (HAV) Vaccine (optional start 19+ years) Hepatitis A (HAV) Vaccine (optional start 19+ years) [facility] Start: 1960 Tdap Booster Tdap Booster [facility] h Anatomic pathology procedure [facility] Comment on above: Release Upon Orderin g for 1 Occurrences starting 01/27/2025, 1 completed CBC W Auto Different ial panel - Blood COMPLETE BLOOD COUNT W/DIFF Lab Routine Daily until discontinued starting 01/26/2025, 6 completed [facility] Work Phone: Comment on above: Daily until disconti nued starting 01/26/2025, 6 completed Colonoscopy flx dx w/collj spec when pfrmd COLONOSCOPY Rectal bleeding [facility] Colonoscopy flx dx w/collj spec when pfrmd COLONOSCOPY Adenomatous polyp of ascending colon [facility] Colonoscopy flx dx w/collj spec when pfrmd COLONOSCOPY Rectal bleeding Adenomatous polyp of ascending colon [facility] Fungus identified in Unspecified specimen by Culture [facility] End: 01-25-2025 Guidance for embolization of Artery [facility] Work Phone: Comment on above: Today for 1 Occurren hilda starting 01/25/2025 until 01/25/2025 Lactic acid measurement [facility] Patient referral [facility] Work Phone: End: 01-28-2025 RFA Celiac artery Views W contrast [place] [facility] Comment on above: Today for 1 Occurren hilda starting 01/28/2025 until 01/28/2025 End: 01-28-2025 RFA Vessels Views W contrast [place] [facility] Comment on above: Today for 1 Occurren hilda starting 01/28/2025 until 01/28/2025 End: 01-27-2025 Surgical pathology procedure [facility] [employer] [facility] Work Phone: Comment on above: One time for 1 Occur rences starting 01/27/2025 until 01/27/2025 Release Upon Orderin g for 1 Occurrences starting 01/27/2025 Payers Date Payer Category Payer Medicare (Managed Care) [facility] MEDICARE [id number] 2025 Unknown [id number] 2024 Medicaid HMO [employer] MEDICAID [id number] 2024 Medicaid [id number] 2024 Self-pay [id number] 2024 Unknown [id number] 1940 Unknown [id number] [id number]. 651 1942 Unknown [id number] 2.16.840.1.376141.3.579.2. 651 1942 Unknown [id number] 2.16.840.1.048700.3.579.2. 651 1942 Unknown [id number] 2.16840.1.632542.3.579.2. 651 1942 Unknown [id number] 2.16.840.1.492776.3.579.2. 651 1942 Unknown [id number] 2.840.1.546883.3.579.2. 732 1942 Unknown [id number] 2.0.1.532329.3.579.2. 732 1942 Unknown [id number] 2.840.1.956975.3.579.2. 732 1942 Unknown [id number] 2.840.1.470181.3.579.2. 732 1942 Unknown [id number] 2.840.1.017160.3.579.2. 732 Blue Cross Blue Shield [id number] Medicare [id number] Medicare [id number] Unknown [id number] Unknown [id number] Unknown [id number] 2.16840.1.626762.3.579.2. 462 Unknown [id number] 2.840.1.224115.3.579.2. 462 Unknown [id number] 2.16.840.1.944668.3.579.2. 462 Unknown [id number] 2.0.1.272116.3.579.2. 462 Unknown [id number] 2.0.1.649278.3.579.2. 462 Unknown [id number] 2.0.1.807350.3.579.2. 462 Unknown [id number] 2.0.1.918269.3.579.2. 462 Social History Date Type Detail Facility Start: 12-24-2019 End: 05-21-2023 Tobacco smoking status NCIS Unknown if ever smoked [facility] Start: 12-24-2019 None [facility] Start: 12-24-2019 Spouse/ Signif icant Other [facility] Start: 02-08-2020 Non-smoker [facility] Start: 1940 Sex Assigned At Female [facility] Start: 05-21-2023 End: 01-24-2025 Tobacco smoking status NHIS Never smoked tobacco (finding) [facility] Start: 1940 Sex assigned at Not on file [facility] Start: 01-25-2025 Sex Female (finding) [facility] Start: 01-25-2025 Gender identity Not on file [facility] Start: 01-25-2025 History of Social function [facility] Has the [employer], [employer] it, or water Property [employer] threatened to shut off services in your home in past 12Mo No [facility] Fear of Current or Ex-Partner Not on file [facility] (I/We) worried mary er (my/our) food would run out before (I/we) got money to buy more. Never true [facility] Medical Equipment Procedure Code Equipment Code Equipment Origin al Text Equipment Identifier Dates Coil Embl 60cm . 02in 14mm Ea1 [id number] - [id number] Start: 01-28-2025 Coil Embl 30cm . 02in 6mm Ea1 [id number] - [id number] Start: 01-28-2025 Coil Embl 30cm . 02in 6mm Ea1 [id number] - [id number] Start: 01-28-2025 Coil Embl 20cm . 02in 6mm Araceli Ea1 [id number] - [id number] Start: 01-28-2025 Coil Embl 60cm . 02in 18mm Araceli Ea1 [id number] - [id number] Start: 01-28-2025 Coil Embl 60cm . 02in 12mm Ea1 [id number] - [id number] Start: 01-28-2025 Coil Embl 60cm . 02in 12mm Ea1 [id number] - [id number] Start: 01-28-2025 Coil Embl 30cm P od Pk J-Sft Ea1 [id number] - [id number] Start: 01-28-2025 Coil Embl 35cm . 02in 10mm Ea1 [id number] - [id number] Start: 01-28-2025 Coil Embl 40cm . 02in 8mm Ea1 [id number] - [id number] Start: 01-28-2025 Coil Embl 45cm P od Pk J-Sft Ea1 [id number] - [id number] Start: 01-28-2025 Coil Embl 25cm . 02in 8mm Ea1 [id number] - [id number] Start: 01-28-2025 Clinical Notes 05-21-2023 to 01-31-2025 Discharge InstructionsMontserrat Shaikh MD - 01/31/2025 10:54 AM EDTDischarge Planning Note - Breanna Wilder RN - 01/31/2025 10:39 AM EDTTransfer Note - Nelda James DO - 01/29/2025 2:05 PM EDT Note Date & Type Note Facility 01-31-2025 Hospital Discharge instructions Montserrat Shaikh MD - 01/31/2025 11:11 AM EDT You were admitted for an aneurysm (enlarged artery) in the liver. The artery was embolized (clotted) by the radiology team - you will need to follow up with Dr Whittaker for an angiogram. To schedule your appointment in the Interventional Radiology Clinic call [phone] option 3. If you notice more rectal bleeding, stop taking eliquis and come to the hospital. If you stop the eliquis (blood thinner) for any reason, our radiologists recommend you stay on aspirin until your follow-up with Dr Whittaker. Your biopsy result from the colonoscopy is pending. Please follow up with your primary care doctor, if you do not have one: Please call Internal Medicine at to schedule an appointment. Please note your next colonoscopy is scheduled in February for removal of more polyps. You will receive more instructions prior to the colonoscopy. Hemorrhoidal care: - Sitz bath two to three times a day (in squatting position) as needed -Clean the area with a designated 100% cotton towel after washing the area with luke warm water after each bowel movement -Avoid straining and constipation -Increase fiber supplementation -Keep stools soft and regular, can use Colace or Miralax if needed documented in this encounter [facility] 01-31-2025 Note DISCHARGE SUMMARY [place] [address] Ely Hurtado 84 year old female 1940 Admitted 01/25/2025 Discharged 01/31/2025 LOS: 6 days Attending No att. 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 Furthermore, she will also found to have acute blood loss anemia with hematochezia. She was admitted to the medical step-down unit and underwent colonoscopy with finding of polyps vs internal hemorrhoids as likely etiology of bleed. Also underwent proper hepatic artery coil embolization on 01/28/2025 for saccular aneurysm. There were no further episodes of bleeding and her hemoglobin remained stable. She was transferred to the general medical floor on 01/29 for trial of re-initiation of anticoagulation which she tolerated. Discharged to assisted living after PT/OT re-evaluation with [facility] in hemodynamically stable condition. TODO: [] Continue eliquis for hx of DVT with unclear provocation (son will obtain records) (if need to stop eliquis, start aspirin 81mg daily until follow-up with radiology due to hepatic artery aneurysm coiling this admission) [] F/u pending rectal polyp biopsy, polypectomy scheduled in February [] F/u with radiology (Dr Whittaker) in 3 months for repeat angiography PROCEDURES, SIGNIFICANT, AND INCIDENTAL FINDINGS: Findings: Successful Coil Embolization of Proper Hepatic Artery Aneurysm. Aneurysm Secured. Plan: Follow up angiography in [address] Whittaker. Start 81mg aspirin as soon as possible per primary team, continue at least until follow up in [address] Whittaker or until Eliquis restarted. Colonoscopy IMPRESSION: Tortuous colon No active bleeding or evidence of old blood in colonoscopy One rectal polyp - suspect as etiology of her BRBPR. This was biopsied to rule out malignancy, but not removed. Internal hemorrhoids Four colonic polyps, not removed. The largest measured ~3 cm in size and was biopsied to rule out malignancy Patient discharged in the following condition: Condition at discharge: improved Activity: as tolerated Diet: no restrictions Disposition: intermediate care facility Functional status: ambulatory FINAL PHYSICAL EXAM ON DAY OF DISCHARGE: BP 135/81 (BP Location: right arm) Pulse 85 Temp 99.1 ???F (37.3 ???C) (Oral) Resp 19 Ht 5' 9" (1.753 m) Wt 135 lb 12.8 oz (61.6 kg) SpO2 97% BMI 20.05 kg/m??? General: alert, cooperative, NAD, interactive with examiner, sitting comfortably, voiding (incontinent) and stooling appropriately HEENT: normocephalic, atraumatic, eyes EOMI Cardiac: regular rate, regular rhythm, no murmurs Resp: lungs clear to auscultation bilaterally, normal work of breathing Abd/GI: soft, nontender MSK/Ext: nontender, grossly normal ROM, no edema Skin: warm, dry Neuro: alert, oriented to situation, ROM grossly intact and symmetrical BL, fluent and intact speech Psych: patient behavior and affect appropriate, no abnormal movements, speech fluent Misc: DISCHARGE MEDICATIONS: Medication List START taking these medications Apixaban 5 MG tablet; Commonly known as: ELIQUIS; Take 1 Tablet by mouth 2 times daily. (Blood thinner) atorvastatin 10 MG tablet; Commonly known as: LIPITOR; Take 1 Tablet by mouth at bedtime. polyethylene glycol packet; Commonly known as: MIRALAX; Dissolve 1 Packet (17 g total) in 8 ounces of liquid and drink 2 times a day. (Stool softener) senna 8.6 MG tablet; Commonly known as: SENOKOT; Take 1 Tablet by mouth daily.; Start taking on: February 01, 2025 ANTICIPATED FOLLOW UP: No future appointments. Discharge Procedure Orders PRE-ADMISSION TESTING CONSULT Referral Priority: Routine Referral Type: Service Level Authorization Referral Location: [facility] PRE ADMISSION TESTING Number of Visits Requested: 1 Expiration Date: 01/26/26 PRE-ADMISSION TESTING CONSULT Referral Priority: Routine Referral Type: Service Level Authorization Referral Location: [facility] PRE ADMISSION TESTING Number of Visits Requested: 1 Expiration Date: 01/26/26 HOME CARE SERVICE REQUEST Referral Priority: Routine Referral Type: Home Health Referral Referral Location: [facility] Number of Visits Requested: 3 Expiration Date: 01/31/26 FOLLOW UP IN PRIM (more content not included)... [facility] 01-31-2025 Hospital course Narrative Images from the original note were not included. DISCHARGE SUMMARY [address] [address] Ely Hurtado 84 year old female 1940 Admitted 01/25/2025 Discharged 01/31/2025 LOS: 6 days Attending No att. 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 Furthermore, she will also found to have acute blood loss anemia with hematochezia. She was admitted to the medical step-down unit and underwent colonoscopy with finding of polyps vs internal hemorrhoids as likely etiology of bleed. Also underwent proper hepatic artery coil embolization on 01/28/2025 for saccular aneurysm. There were no further episodes of bleeding and her hemoglobin remained stable. She was transferred to the general medical floor on 01/29 for trial of re-initiation of anticoagulation which she tolerated. Discharged to assisted living after PT/OT re-evaluation with [facility] in hemodynamically stable condition. TODO: [] Continue eliquis for hx of DVT with unclear provocation (son will obtain records) (if need to stop eliquis, start aspirin 81mg daily until follow-up with radiology due to hepatic artery aneurysm coiling this admission) [] F/u pending rectal polyp biopsy, polypectomy scheduled in February [] F/u with radiology (Dr Whittaker) in 3 months for repeat angiography PROCEDURES, SIGNIFICANT, AND INCIDENTAL FINDINGS: Findings: Successful Coil Embolization of Proper Hepatic Artery Aneurysm. Aneurysm Secured. Plan: Follow up angiography in [address] Whittaker. Start 81mg aspirin as soon as possible per primary team, continue at least until follow up in [address] Whittaker or until Eliquis restarted. Colonoscopy IMPRESSION: Tortuous colon No active bleeding or evidence of old blood in colonoscopy One rectal polyp - suspect as etiology of her BRBPR. This was biopsied to rule out malignancy, but not removed. Internal hemorrhoids Four colonic polyps, not removed. The largest measured ~3 cm in size and was biopsied to rule out malignancy Patient discharged in the following condition: Condition at discharge: improved Activity: as tolerated Diet: no restrictions Disposition: intermediate care facility Functional status: ambulatory FINAL PHYSICAL EXAM ON DAY OF DISCHARGE: BP 135/81 (BP Location: right arm) Pulse 85 Temp 99.1 F (37.3 C) (Oral) Resp 19 Ht 5' 9" (1.753 m) Wt 135 lb 12.8 oz (61.6 kg) SpO2 97% BMI 20.05 kg/m General: alert, cooperative, NAD, interactive with examiner, sitting comfortably, voiding (incontinent) and stooling appropriately HEENT: normocephalic, atraumatic, eyes EOMI Cardiac: regular rate, regular rhythm, no murmurs Resp: lungs clear to auscultation bilaterally, normal work of breathing Abd/GI: soft, nontender MSK/Ext: nontender, grossly normal ROM, no edema Skin: warm, dry Neuro: alert, oriented to situation, ROM grossly intact and symmetrical BL, fluent and intact speech Psych: patient behavior and affect appropriate, no abnormal movements, speech fluent Misc: DISCHARGE MEDICATIONS: Medication List START taking these medications Apixaban 5 MG tablet; Commonly known as: ELIQUIS; Take 1 Tablet by mouth 2 times daily. (Blood thinner) atorvastatin 10 MG tablet; Commonly known as: LIPITOR; Take 1 Tablet by mouth at bedtime. polyethylene glycol packet; Commonly known as: MIRALAX; Dissolve 1 Packet (17 g total) in 8 ounces of liquid and drink 2 times a day. (Stool softener) senna 8.6 MG tablet; Commonly known as: SENOKOT; Take 1 Tablet by mouth daily.; Start taking on: February 01, 2025 ANTICIPATED FOLLOW UP: No future appointments. Discharge Procedure Orders PRE-ADMISSION TESTING CONSULT Referral Priority: Routine Referral Type: Service Level Authorization Referral Location: [facility] PRE ADMISSION TESTING Number of Visits Requested: 1 Expiration Date: 01/26/26 PRE-ADMISSION TESTING CONSULT Referral Priority: Routine Referral Type: Service Level Authorization Referral Location: [facility] PRE ADMISSION TESTING Number of Visits Requested: 1 Expiration Date: 01/26/26 HOME CARE SERVICE REQUEST Referral Priority: Routine Referral Type: Home Health Referral Referral Location: [facility] Number of Visits Requested: 3 Expiration Date: 01/31/26 FOLLOW UP IN PRIMARY CARE INTERVENTIONAL RAD CLINIC REFERRAL Referral Priority: Routine Referral Type: Radiology Referral Location: [facility] INTERVENTIONAL RAD Number of Visits Requested: 1 Expiration Date: 07/30/25 Call to schedule follow-up appointments. Discussed with the patient and son at the time of discharge an explanation of the primary diagnosis and associated findings, an explanation of the secondary diagnoses and associated findings, an explanation of the medication regimen, including expected benefits and potential major side effects, follow-up laboratory and imaging studies (biopsy pending, and follow-up with radiology), return precautions which include the return or worsening of symptoms or onset of new symptoms, and the need to follow up by scheduling appointments if they have not been made in advance. Furthermore, her questions regarding anticoagulation with eliquis were answered, including specific advice to son regarding the risk of recurrent rectal bleeding while on eliquis and the need to obtain old medical records to understand the duration of AC. Family understanding radiology recommends for aspirin if AC needs to be stopped until follow-up. The patient's concerns were addressed at this time to their satisfaction. Montserrat Shaikh MD 01/31/25 Greater than 30 minutes spent preparing this patient's discharge. documented in this encounter [facility] 01-31-2025 Progress note Formatting of t his note might be different from the original. SW/CM aware that patient meets criteria for HHC. Spoke with Pts son over the phone to discuss dispo. Patient open and agreeable to HHC. CM provided Pt son the quality and resource use measure data from available post-acute (PAC) providers, that best align with the patient's treatment goals and preferences from the medicare.gov compare site for HHC. [place] [employer] was provided to the patient/patient guest services representative. CM to follow up with accepting agencies. CM to continue to follow. ADDENDUM: CM spoke with Debra Campbell from [facility] and she states that the patient can receive therapy under Medicare part B from PT at her AL if she so wishes. CM will continue to follow additional discharge planning needs. ADDENDUM: CM spoke with Pt son and notified him that patient would be discharge back to her AL today. Son stated that he would be at to fish bait picker pt and transport her back to [facility] after 5pm. CM will continue to follow. Breanna Wilder MSN, RN Inpatient [employer] 7E/7W Cell [phone] Desk [phone] [facility] 01-31-2025 Miscellaneous Notes SW/CM aware that patient meets criteria for HHC. Spoke with Pts son over the phone to discuss dispo. Patient open and agreeable to HHC. CM provided Pt son the quality and resource use measure data from available post-acute (PAC) providers, that best align with the patient's treatment goals and preferences from the medicare.gov compare site for HHC. [place] [employer] was provided to the patient/patient guest services representative. CM to follow up with accepting agencies. CM to continue to follow. ADDENDUM: CM spoke with Debra Campbell from [facility] and she states that the patient can receive therapy under Medicare part B from PT at her AL if she so wishes. CM will continue to follow additional discharge planning needs. ADDENDUM: CM spoke with Pt son and notified him that patient would be discharge back to her AL today. Son stated that he would be at to fish bait picker pt and transport her back to [facility] after 5pm. CM will continue to follow. 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 Whittaker or until AC restarted. Associated Problem(s): Rectal bleeding --trend CBC daily, transfuse as need, Hb goal >7. s/p 2u pRBCs. --GI consulted s/p colonoscopy 01/27/2025 with a rectal polyp biopsy to rule out malignancy; follow up pathology. This is thought to be etiology of her bleed versus internal hemorrhoids. --will need outpatient repeat colonoscopy for polypectomy --internal hemorrhoids noted, recommend routine hemorrhoid care --pharmacy dispense reports has been on [employer] since 02/11/2024 --Eliquis currently held since 01/23/2025, unknown nature of DVT. If lifelong anticoagulation is advised will need to restart Eliquis. --discussed with the patient's son starting on therapeutic Lovenox and if no further signs of bleeding to transition to Eliquis for discharge. I will reach out to GI today to ensure it is okay to resume anticoagulation after polyp biopsy Associated Problem(s): Acute blood loss anemia (ABLA) --trend CBC daily, transfuse as need, Hb goal >7. s/p 2u pRBCs. --GI consulted s/p colonoscopy 01/27/2025 with a rectal polyp biopsy to rule out malignancy; follow up pathology. This is thought to be etiology of her bleed versus internal hemorrhoids. --will need outpatient repeat colonoscopy for polypectomy --internal hemorrhoids noted, recommend routine hemorrhoid care --pharmacy dispense reports has been on [employer] since 02/11/2024 --Eliquis currently held since 01/23/2025, unknown nature of DVT. If lifelong anticoagulation is advised will need to restart Eliquis. --discussed with the patient's son starting on therapeutic Lovenox and if no further signs of bleeding to transition to Eliquis for discharge. I will reach out to GI today to ensure it is okay to resume anticoagulation after polyp biopsy Associated Problem(s): History of DVT (deep vein thrombosis) --trend CBC daily, transfuse as need, Hb goal >7. s/p 2u pRBCs. --GI consulted s/p colonoscopy 01/27/2025 with a rectal polyp biopsy to rule out malignancy; follow up pathology. This is thought to be etiology of her bleed versus internal hemorrhoids. --will need outpatient repeat colonoscopy for polypectomy --internal hemorrhoids noted, recommend routine hemorrhoid care --pharmacy dispense reports has been on Eliquis since 02/11/2024 --Eliquis currently held since 01/23/2025, unknown nature of DVT. If lifelong anticoagulation is advised will need to restart Eliquis. --discussed with the patient's son starting on therapeutic Lovenox and if no further signs of bleeding to transition to Eliquis for discharge. I will reach out to GI today to ensure it is okay to resume anticoagulation after polyp biopsy Associated Problem(s): Chronic anticoagulation --trend CBC daily, transfuse as need, Hb goal >7. s/p 2u pRBCs. --GI consulted s/p colonoscopy 01/27/2025 with a rectal polyp biopsy to rule out malignancy; follow up pathology. This is thought to be etiology of her bleed versus internal hemorrhoids. --will need outpatient repeat colonoscopy for polypectomy --internal hemorrhoids noted, recommend routine hemorrhoid care --pharmacy dispense reports has been on Eliquis since 02/11/2024 --Eliquis currently held since 01/23/2025, unknown nature of DVT. If lifelong anticoagulation is advised will need to restart Eliquis. --discussed with the patient's son starting on therapeutic Lovenox and if no further signs of bleeding to transition to Eliquis for discharge. I will reach out to GI today to ensure it is okay to resume anticoagulation after polyp biopsy Associated Problem(s): Hyperlipidemia, unspecified --chronic. stable. continue home statin Associated Problem(s): Rectal bleeding --trend CBC daily, transfuse as need, Hb goal >7. s/p 2u pRBCs. --GI consulted s/p colonoscopy 01/27/2025 with a rectal polyp biopsy to rule out malignancy; follow up pathology --will need outpatient repeat colonoscopy for polypectomy --internal hemorrhoids noted, recommend routine hemorrhoid care --pharmacy dispense reports has been on Eliquis since 02/11/2024 --Eliquis currently held since 01/23/2025, unknown nature of DVT if lifelong anticoagulation is advised will need to restart Eliquis Associated Problem(s): Acute blood loss anemia (ABLA) --trend CBC daily, transfuse as need, Hb goal >7. s/p 2u pRBCs. --GI consulted s/p colonoscopy 01/27/2025 with a rectal polyp biopsy to rule out malignancy; follow up pathology --will need outpatient repeat colonoscopy for polypectomy --internal hemorrhoids noted, recommend routine hemorrhoid care --pharmacy dispense reports has been on Eliquis since 02/11/2024 --Eliquis currently held since 01/23/2025, unknown nature of DVT if lifelong anticoagulation is advised will need to restart Eliquis Associated Problem(s): History of DVT (deep vein thrombosis) --trend CBC daily, transfuse as need, Hb goal >7. s/p 2u pRBCs. --GI consulted s/p colonoscopy 01/27/2025 with a rectal polyp biopsy to rule out malignancy; follow up pathology --will need outpatient repeat colonoscopy for polypectomy --internal hemorrhoids noted, recommend routine hemorrhoid care --pharmacy dispense reports has been on Eliquis since 02/11/2024 --Eliquis currently held since 01/23/2025, unknown nature of DVT if lifelong anticoagulation is advised will need to restart Eliquis Associated Problem(s): Chronic anticoagulation --trend CBC daily, transfuse as need, Hb goal >7. s/p 2u pRBCs. 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 Whittaker or until Eliquis restarted. Associated Problem(s): Hyperlipidemia, unspecified --chronic. stable. continue home statin Images from the original note were not included. . TRANSFER NOTE Patient: Ms. 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 Patient who currently resides at [facility] ([facility]) where she was found to have significant bright red blood in her stool following multiple episodes of diarrhea on the morning of 01/24. They were transferred to the [facility] ED later that day for further evaluation. On presentation BP was 146/83, HR 104. CBC notable for drop og Hb from 11 3 months ago to 8.2. Repeated CBC showed a further drop of Hgb to 6.2. 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 Patient admitted directly to SDU and transfused w/ 2 units of pRBC prior to transfer. On presentation to the floors, patient is vitally stable and in no acute distress. Required straight catheterization and gamez insertion for urinary retention 01/28 s/p Colonoscopy showed one rectal polyp (biopsied) and Int hemorrhoids likely cause of BRBPR. Recommend repeat colo if abnormal path results and hemorrhoid care. Pt s/p IR guided coil embolization of hepatic artery aneurysm 01/28/2025. Recommend f/u angiography in 3 months, restarting aspirin for 3 months or until Eliquis restarted. 01/29 Gamez removed, for voiding trial. Pt's condition improving and she deems stable to be transferred to the general floors. TO DO: [] Daily CBC [] Protonix 40 mg PO daily [] Hemorrhoid care [] F/u pathology (polyp) if abnormal repeat Colonoscopy needed [] Per IR: can be on both aspirin and Eliquis whenever you decide to restart Eliquis, but if the risk of bleeding is too high just Eliquis would be also appropriate [] Atorvastatin 10 mg [] Bowel Regimen [] Aspirin 81 mg [] Voiding trial Disposition: [facility] facility Inpatient CONSULTS: IP GASTROENTEROLOGY CONSULT Outpatient f/u: PCP F/u angiography in 3 months PROBLEM LIST: Rectal bleed s/p colonoscopy 01/27 Hepatic artery aneurysm s/p coiling 01/28 Nelda James DO Family Medicine, PGY2 FM Pager: [phone] Spoke with Pt's son and daughter in law. Aliza and Magi Updated them that she had her colonoscopy done and multiple polyps were seen. 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 And we will keep them updated as to what IR decides. Family verbalized understanding. Nelda James DO SW/CM aware that patient meets criteria for SNF. Met with pt son via phone call discuss dispo. Patient open and agreeable to SNF placement. CM/SW provided pt son the quality and resource use measure data from available post-acute (PAC) providers, that best align with the patient's treatment goals and preferences from the medicare.gov compare site for SNF. [place] [employer] Choice was provided to the patient/patient guest services representative. For SNF: RN/MD to complete [employer]. Signature page placed on patient's chart for MD signature. [id number] initiated in [facility] Pt will require a pre-cert/LOC. SW/CM will follow up for choices. Referral sent to [facility] which is the sister SNF for [facility]. CM will continue to follow Breanna VALLEJO, RN Inpatient [employer] 5P/7W Cell [phone] Desk [phone] I tried at least thrice to reach her son to update on her colonoscopy but with no avail. Ely Hurtado 84 year old Surgical Contact Serial Number: [id number] Location: ENDO ADD ON PROCEDURE Date: 01/27/2025 Emergency Room Rn: Juan Parikh MD Attending:Adrien Caraballo MD Procedure(s): COLONOSCOPY Sedation: Moderate: Oxygen 2L via nasal cannula, Fentanyl 75 mcg IV, Versed 3 mg IV Moderate sedation intraservice total time was 29 minutes. Moderate sedation provided by the same provider performing the procedure. Pre-Op Diagnosis Codes: * Rectal bleeding [K62.5] Indications: This is a 84 year old female here for colonoscopy to evaluate for rectal bleeding. No priorrior colonoscopies. Patient examined. Anus and digital rectal exam were Normal. While monitoring the patient with EKG, pulse oximetry and BP, colonoscope passed into cecum, which was identified by ileo-cecal valve, appendical orifice and transillumination of right lower quadrant. Prep was Hartman Bowel Prep Right Colon: Entire colon seen well, Hartman Bowel Prep Transverse Colon: Entire colon seen well, Hartman Bowel Prep Left Colon:Entire colon seen well or Excellent (Small volume of clear liquid or >95% of srface seen). FINDINGS: TI: Briefly visualized with no blood noted Cecum: Normal. Ascending Colon: Abnormal. one large 3 cm pedunculated polyp, biopsied to rule out malignancy (Bottle A). There were two adjacent polyps, one 7 mm adenomatous polyp proximal distal to the polyp and another 1 cm polyp lateral to polyp. Hepatic Flexure: Normal. Transverse Colon: Abnormal, one 9 mm polyp. Splenic Flexure: Normal. Descending Colon: Normal. Sigmoid Colon: Abnormal, few scattered small mouthed diverticula. Rectum: One 9 mm adenomatous pedunculated polyp with erythema on anal verge/near dentate line, best appreciated in retroflexed view, which was biopsies to rule out malignancy (Bottle B). + internal hemorrhoids Rectal bleeding (Primary Diagnosis) [900710] Unspecified right bundle-branch block [1005751] Abnormal electrocardiogram (ECG) (EKG) [4581024] Abnormal electrocardiogram (ECG) (EKG) [4029328] ANATOMIC SPECIMEN: Yes SPECIMEN: ID Type Source Tests Collected by Time Destination A : A. ascending colon bx Tissue Ascending colon SURGICAL GI ANATOMIC PATHOLOGY Juan Parikh MD 01/27/2025 1711 B : rectum bx Tissue Rectum SPECIMEN FOR SURGICAL PATH Juan Parikh MD 01/27/2025 1712 PHOTOGRAPH TAKEN: Yes Complications during procedure: None Estimated Blood Loss (EBL): Minimal IMPRESSION: Tortuous colon No active bleeding or evidence of old blood in colonoscopy One rectal polyp - suspect as etiology of her BRBPR. This was biopsied to rule out malignancy, but not removed. Internal hemorrhoids Four colonic polyps, not removed. The largest measured ~3 cm in size and was biopsied to rule out malignancy RECOMMENDATIONS: Follow-up path, if path is benign then patient would need repeat outpatient colonoscopy for polypectomies Repeat colonoscopy would need to be scheduled for 1 hour/prolonged case Ok for regular diet We will sign off but please don't hesitate to reach out with questions or concerns Hemorrhoidal care: -Sitz bath two to three times a day (in squatting position) PRN -Clean the area with a designated 100% cotton towel after washing the area with luke warm water after each bowel movement -Avoid straining and constipation -Increase fiber supplementation -Keep stools soft and regular, can use Colace or Miralax if needed -Anusol HC suppositories/cream BID for 10 days whenever there is bleeding Person completing note: Juan Parikh MD 01/27/2025 at 5:17 PM Patient meets criteria for discharge/transfer: Juan Parikh MD ATTENDING NOTE: I was present during and participated in this procedure, and have reviewed and agree with the findings. 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 Furthermore, she will also found to have acute blood loss anemia with hematochezia. She was admitted to the medical step-down unit and underwent colonoscopy with finding of polyps vs internal hemorrhoids as likely etiology of bleed. Also underwent proper hepatic artery coil embolization on 01/28/2025 for saccular aneurysm. There were no further episodes of bleeding and her hemoglobin remained stable. She was transferred to the general medical floor on 01/29 for trial of re-initiation of anticoagulation before discharge. documented in this encounter [facility] 01-31-2025 Consult note Associated Order (s): IP PHYSICAL THERAPY SERVICE REQUEST PHYSICAL THERAPY PROGRESS SUMMARY Patient seen from 9:17 am to 9:29 am on 8E unit for 12 minute treatment. SUBJECTIVE: Patient Subjective/Goals: To go home today OBJECTIVE: Appearance: Supine in bed Top from home + gown donned Hep-locked IV Adult brief Behavior: Awake Alert Cooperative Flat affect Pleasant Oriented x 3 with use of board Follows simple commands consistently Pain: Denies Pain Relief Interventions Implemented: None required; No pain at this time Mobility NA Dep Max Mod Min CG CS Sup DS IA I Comment Supine to sit X Sit to stand X EOB to/from Rolator Walking on level surface X 100 feet with Rolator Slow speed, short step to pattern, grossly steady Seated Balance X X Static: Good EOB Dynamic: Good donning gown Standing balance X X Static: Fair with Rolator Dynamic: Fair with Rolator Functional Endurance: Fair; appears near baseline Patient Education: Instructed Patient in roles, goals, treatment plan: demonstrated good verbal understanding. Educated patient NOT to stand or mobilize without staff assist to minimize fall risk and improve safety Patient up EOB (declines chair) with call light in reach. bed alarm intact. DME: With Patients permission ordered no equipment via HeartThis Order. If any questions contact [facility] DME Provider at [phone]. 01/31/2025 6 Clicks Basic Mobility PT Difficulty turning over in bed 4 Difficulty sitting down and standing up from a chair with arms 3 Difficulty moving from lying on back to sitting on the side of the bed 3 Help from another person moving to and from bed to a chair 3 Help from another person to walk in hospital room 3 Help from another person climbing 3-5 steps with a railing 2 PT 6 Clicks Score 18 6 Click Score Guidelines: 1 - Total = Requires total assistance, or cannot do at all. 2 - A lot = Requires a lot of help (maximun to moderate assistance) Can use assistive devices. 3 - A little = Requires a little help (supervision, minimal assistance) Can use assistive devices. 4 - None = Does not require any help and does the activity independently. Can use assistive devices. Progressive Mobility Protocol Score: Level 4 ASSESSMENT: Patient tolerated treatment session well. Feel patient is functioning near her baseline level. Therefore, Patient is functionally appropriate for discharge to [facility] with assist PRN once medically cleared. Will continue to follow patient while in hospital as appropriate. Recommend Home Physical Therapy. Goals (to be achieved by 10 days ): ongoing / progressing Patient will increase bed mobility to supervision met Revised: mod I Patient will perform sit to/from stand with LRD supervision met Revised: mod I Patient will transfer bed<>chair with LRD supervision met Revised: mod I Patient will ambulate 50 ft with LRD supervision met Revised: 100 feet, mod I Patient will increase ROM/Strength/Endurance/Balance to allow for above goals. Patient/Family independent with exercise program/precautions. PLAN: 3-5x Martin Greenberg, PT, DPT NA = Not Assessed, I = Independent, IA = Modified Independent, Sup = Supervised, Set up = Physical Assistance for Set-up Only, Min = Minimal Assistance, Mod = Moderate Assistance, Max = Maximal assistance; Dep = Dependent; AROM = Active Range of Motion; PROM = Passive Range of Motion; MMT = Manual Muscle Test T [facility] 01-31-2025 Note PHYSICAL THERAPY PRO TOMÁS SUMMARY Patient seen from 9:17 am to 9:29 am on 8E unit for 12 minute treatment. SUBJECTIVE: Patient Subjective/Goals: To go home today OBJECTIVE: Appearance: Supine in bed Top from home + gown donned Hep-locked IV Adult brief Behavior: Awake Alert Cooperative Flat affect Pleasant Oriented x 3 with use of board Follows simple commands consistently Pain: Denies Pain Relief Interventions Implemented: None required; No pain at this time Mobility NA Dep Max Mod Min CG CS Sup DS IA I Comment Supine to sit X Sit to stand X EOB to/from Rolator Walking on level surface X 100 feet with Rolator Slow speed, short step to pattern, grossly steady Seated Balance X X Static: Good EOB Dynamic: Good donning gown Standing balance X X Static: Fair with Rolator Dynamic: Fair with Rolator Functional Endurance: Fair; appears near baseline Patient Education: Instructed Patient in roles, goals, treatment plan: demonstrated good verbal understanding. Educated patient NOT to stand or mobilize without staff assist to minimize fall risk and improve safety Patient up EOB (declines chair) with call light in reach. bed alarm intact. DME: With Patients permission ordered no equipment via HeartThis Order. If any questions contact [facility] DME Provider at [phone]. 01/31/2025 6 Clicks Basic Mobility PT Difficulty turning over in bed 4 Difficulty sitting down and standing up from a chair with arms 3 Difficulty moving from lying on back to sitting on the side of the bed 3 Help from another person moving to and from bed to a chair 3 Help from another person to walk in hospital room 3 Help from another person climbing 3-5 steps with a railing 2 PT 6 Clicks Score 18 6 Click Score Guidelines: 1 - Total = Requires total assistance, or cannot do at all. 2 - A lot = Requires a lot of help (maximun to moderate assistance) Can use assistive devices. 3 - A little = Requires a little help (supervision, minimal assistance) Can use assistive devices. 4 - None = Does not require any help and does the activity independently. Can use assistive devices. Progressive Mobility Protocol Score: Level 4 ASSESSMENT: Patient tolerated treatment session well. Feel patient is functioning near her baseline level. Therefore, Patient is functionally appropriate for discharge to [facility] with assist PRN once medically cleared. Will continue to follow patient while in hospital as appropriate. Recommend Home Physical Therapy. Goals (to be achieved by 10 days ): ongoing / progressing Patient will increase bed mobility to supervision met Revised: mod I Patient will perform sit to/from stand with LRD supervision met Revised: mod I Patient will transfer bed<>chair with LRD supervision met Revised: mod I Patient will ambulate 50 ft with LRD supervision met Revised: 100 feet, mod I Patient will increase ROM/Strength/Endurance/Balance to allow for above goals. Patient/Family independent with exercise program/precautions. PLAN: 3-5x Martin Greenberg, PT, DPT NA = Not Assessed, I = Independent, IA = Modified Independent, Sup = Supervised, Set up = Physical Assistance for Set-up Only, Min = Minimal Assistance, Mod = Moderate Assistance, Max = Maximal assistance; Dep = Dependent; AROM = Active Range of Motion; PROM = Passive Range of Motion; MMT = Manual Muscle Test [facility] Consult note Associated Order (s): IP PHYSICAL THERAPY SERVICE REQUEST PHYSICAL THERAPY PROGRESS SUMMARY Patient seen from 9:17 am to 9:29 am on 8E unit for 12 minute treatment. SUBJECTIVE: Patient Subjective/Goals: To go home today OBJECTIVE: Appearance: Supine in bed Top from home + gown donned Hep-locked IV Adult brief Behavior: Awake Alert Cooperative Flat affect Pleasant Oriented x 3 with use of board Follows simple commands consistently Pain: Denies Pain Relief Interventions Implemented: None required; No pain at this time Mobility NA Dep Max Mod Min CG CS Sup DS IA I Comment Supine to sit X Sit to stand X EOB to/from Rolator Walking on level surface X 100 feet with Rolator Slow speed, short step to pattern, grossly steady Seated Balance X X Static: Good EOB Dynamic: Good donning gown Standing balance X X Static: Fair with Rolator Dynamic: Fair with Rolator Functional Endurance: Fair; appears near baseline Patient Education: Instructed Patient in roles, goals, treatment plan: demonstrated good verbal understanding. Educated patient NOT to stand or mobilize without staff assist to minimize fall risk and improve safety Patient up EOB (declines chair) with call light in reach. bed alarm intact. DME: With Patients permission ordered no equipment via HeartThis Order. If any questions contact [facility] DME Provider at [phone]. 01/31/2025 6 Clicks Basic Mobility PT Difficulty turning over in bed 4 Difficulty sitting down and standing up from a chair with arms 3 Difficulty moving from lying on back to sitting on the side of the bed 3 Help from another person moving to and from bed to a chair 3 Help from another person to walk in hospital room 3 Help from another person climbing 3-5 steps with a railing 2 PT 6 Clicks Score 18 6 Click Score Guidelines: 1 - Total = Requires total assistance, or cannot do at all. 2 - A lot = Requires a lot of help (maximun to moderate assistance) Can use assistive devices. 3 - A little = Requires a little help (supervision, minimal assistance) Can use assistive devices. 4 - None = Does not require any help and does the activity independently. Can use assistive devices. Progressive Mobility Protocol Score: Level 4 ASSESSMENT: Patient tolerated treatment session well. Feel patient is functioning near her baseline level. Therefore, Patient is functionally appropriate for discharge to [facility] with assist PRN once medically cleared. Will continue to follow patient while in hospital as appropriate. Recommend Home Physical Therapy. Goals (to be achieved by 10 days ): ongoing / progressing Patient will increase bed mobility to supervision met Revised: mod I Patient will perform sit to/from stand with LRD supervision met Revised: mod I Patient will transfer bed<>chair with LRD supervision met Revised: mod I Patient will ambulate 50 ft with LRD supervision met Revised: 100 feet, mod I Patient will increase ROM/Strength/Endurance/Balance to allow for above goals. Patient/Family independent with exercise program/precautions. PLAN: 3-5x Martin Greenberg, PT, DPT NA = Not Assessed, I = Independent, IA = Modified Independent, Sup = Supervised, Set up = Physical Assistance for Set-up Only, Min = Minimal Assistance, Mod = Moderate Assistance, Max = Maximal assistance; Dep = Dependent; AROM = Active Range of Motion; PROM = Passive Range of Motion; MMT = Manual Muscle Test Images from the original note were not included. 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 High risk nutrition diagnosis: No - no points Past Medical History: Medical History[1] Food Allergies: none Labs: LFT's (last 3 years, up to 8 values) 01/25/2025 1:22 PM T Prot 5.1 Albumin 3.4 D Bili 0.42 T Bili 2.5 Alk Phos 52 ALT 7 AST 15 Albumin: Greater than 3 - no points Skin Integrity: No pressure ulcers at this time - no points Fluid Accumulation: +1 - +2 Pitting edema - 2 points Diet Order: Regular % PO Intake: 75-100% Intake Difficulties: None - 0 points 5' 9" 139.99 lbs UBW: same per pt BODY MASS INDEX Kg Lbs BMI 01/25/2025 12:05 PM 61.3 kg 135 lb 2.3 oz 19.95 kg/m2 01/26/2025 6:00 AM 60.2 kg 132 lb 11.5 oz 19.59 kg/m2 01/27/2025 12:00 AM 60.8 kg 134 lb 0.6 oz 19.79 kg/m2 01/28/2025 7:00 AM 63.5 kg 139 lb 15.9 oz 20.66 kg/m2 BMI: 20.67 BMI Screening value: 18.5 to 20.9 - 0 points % Weight Loss: none Weight Loss Screening Value: Not significant - 0 points Education: No nutrition education indicated at this time. Comments: Pt tolerating diet well wihout any issues Number of Points: 2 Nutritional Plan of Care: Less than or equal to 6 points: At this time, patient is at low nutrition risk. DTR to provide routine follow up. Will continue to follow, Ava Hays Day Care Worker Pager#[phone] Time spent on patient care: 15 minutes [1] No past medical history on file. Associated Order(s): IP PHYSICAL THERAPY SERVICE REQUEST PHYSICAL THERAPY ACUTE EVALUATION Referral received, chart reviewed. RN cleared for mobility Patient seen from 935 to 1000 on 7W unit for 25 minutes. Co tx with OT for second set of skilled hands due to the medical complexity and to maximize functional participation due to patients decreased activity tolerance and quick to desat/SOB with minimal activity Admit date: 01/25/2025 12:28 PM Reason for Admit: 84 year old female presenting from OSH for urget vascular intervention and anemia. Pt currently resides at [facility] ([facility]) Diagnosis: Rectal Bleeding Hepatic Aneurysm/pseudoaneurysm Urinary retention Rectal bleeding Precautions: High falls Full code Delirium NPO Progressive mobility Strict I&O *hgb 7.9 Procedures this admit: planned for scope this date Past Medical and Surgical History: PMH: Medical History[1]anemia, rectal bleeding, history ov DVT, aneurysm of hepatic artery PSH: Surgical History[2] Identification was verified by patient verbalizing his/her name and date of . and patient's id band and date of . 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 Mobility Status: Modified indep with rollator ADL/IADL Indep with ADLs Assistance for IADLS Driving: (-) Employment: (-) Falls: 0 fall(s) in the past 6 months Home: questionable historian Living situation: lives in a apartment, Lives alone 0 steps to enter apartment Reports her son can assist Walk in shower Equipment available: rollator, shower chair, grab bars Per chart review: patient currently resides at SNF ([facility]) with staff assist OBJECTIVE: Appearance: received supine in bed, patient gown, external female catheter, Tele, pulse ox, BP cuff, rollbelt, personal glasses Behavior: awake and agreeable to therapy; Orientation: A&O self, birthday and state - needs reorientation to place and current date Stimulation: Turned on lights to improve orientation to time of day Opened curtains to improve orientation to time of day/season OOB transfer to chair to increase tolerance to upright positioning to participate in functional tasks Eliminated other auditory distractions Command Following: Follows 1 step commands with VC repeated as needed Pain: Pain location denies pain Strength/Active ROM: B LE 4/5 Transfers/Bed Mobility Assistance Level Dep Max Mod Min CG CS DS IA I Set-Up Comment Supine to Sit x With increased time to complete and VC for sequencing -reports slight dizziness upon sitting that improves with time Sit to/from Stand x Sit<>stand with RW from EOB min A to obtain upright and VC for hand placement as pt attempts to pull up on RW Ambulation x2 Stepping transfer bed>recliner with RW CGAx2 to maintain upright and assist with RW management - pt demo decreased gait speed, step length, and unsteadiness; reports dizziness - deferred further mobility 2/2 c/o dizziness and plan for scope this date (concern for bleed) Session ended with pt up in recliner, lines/leads intact, roll belt donned. Chair alarm in place d/t falls risk. Call lazo and telephone within reach. Patient instructed to call for staff assist for all mobility. RN aware of patient location and mobility status. Endurance: decreased Vitals Pre-Mobility During Mobility Post Mobility Heart Rate 84 bpm 90 bpm 82 bpm Oxygen 100% >96% 98% Respiratory Rate 14 22 21 BP 112/78 - 99/66 (76) Patient/Family Education: Educated on PT role in acute care setting Review and emphasis on importance of continued mobility in the hospital setting Safety and sequencing with mobility and management of RW Use of call lazo and nursing assistance Discussed post acute recs Answered patient questions/concerns Treatment: Skilled intervention provided: Educated as stated above. Progression of therapeutic activities and gait training based on clinical/ professional judgement related to patient's performance and response to treatment interventions. Ensured patient safety by providing appropriate level of supervision/ guarding with use of all equipment. Verbal and tactile cues for breathing , rest breaks, posture, safety and guarding was provided as necessary. DME: With Patients permission ordered no equipment via HeartThis Order. If any questions contact [facility] DME Provider at [phone]. 01/27/2025 6 Clicks Basic Mobility PT Difficulty turning over in bed 3 Difficulty sitting down and standing up from a chair with arms 3 Difficulty moving from lying on back to sitting on the side of the bed 3 Help from another person moving to and from bed to a chair 3 Help from another person to walk in hospital room 3 Help from another person climbing 3-5 steps with a railing 2 PT 6 Clicks Score 17 6 Click Score Guidelines: 1 - Total = Requires total assistance, or cannot do at all. 2 - A lot = Requires a lot of help (maximum to moderate assistance) Can use assistive devices. 3 - A little = Requires a little help (supervision, minimal assistance) Can use assistive devices. 4 - None = Does not require any help and does the activity independently. Can use assistive devices. ASSESSMENT: Patient presents to skilled PT services with below deficits limiting independence with functional mobility. Pt presenting below baseline status, will benefit from PT services during hospitalization to address. Recommend further therapy services in a [facility] Setting once medically cleared. Will continue to follow patient while in hospital as appropriate. Problems: Decreased ROM/strength Decreased functional mobility Decreased endurance Decreased balance Decreased education in exercise/precautions Decreased cognition/behavior Impaired safety awareness Rehabilitation Potential: Good Goals (to be achieved by 10 days ): Patient will increase bed mobility to supervision Patient will perform sit to/from stand with LRD supervision Patient will transfer bed<>chair with LRD supervision Patient will ambulate 50 ft with LRD supervision Patient will increase ROM/Strength/Endurance/Balance to allow for above goals. Patient/Family independent with exercise program/precautions. PLAN OF CARE: Frequency: Patient to be seen 1-3 times a week Interventions: Functional mobility ROM/Strengthening Home exercise program Discharge planning and equipment ordering as needed Patient /Family education The evaluation findings and treatment plan were discussed with the patient/family. The patient/family indicated understanding and agreement with the plan. Estela Elkins, PT, DPT NA = Not Assessed, I = Independent, IA = Modified Independent, Sup = Supervised, Set up = Physical Assistance for Set-up Only, Min = Minimal Assistance, Mod = Moderate Assistance, Max = Max assistance; Dep = Dependent; AROM = Active Range of Motion; PROM = Passive Range of Motion; MMT = Manual Muscle Test; LE = Lower Extremity; VC = verbal cues; TC = tactile cues; PLB = pursed lip breathing [1] No past medical history on file. [2] No past surgical history on file. Associated Order(s): IP OCCUPATIONAL THERAPY SERVICE REQUEST OCCUPATIONAL THERAPY INITIAL EVALUATION Patient seen from 9:35 to 10:00 on 7W unit for 25 minutes. Paige wolfe physical therapy for safe progression of mobilization. Reason for Admit: 84 year old female admitted on 01/25/2025 with a PMH from OSH for urget vascular intervention and anemia. Diagnosis: Rectal Bleeding Hepatic Aneurysm/pseudoaneurysm Urinary retention Rectal Bleeding Anemia Hypocalcemia Precautions/Activity Order: High falls Full code NPO Progressive mobility Procedures this admit: none Past Medical and Surgical History: PMH: anemia, rectal bleeding, history ov DVT, aneurysm of hepatic artery PSH: Surgical History[1] SUBJECTIVE: Pt poor historian Patient Subjective: "My walker is somewhere in [place]" Patient Identified Goal(s): Return home Home Living Situation Per pt report: Lives in apartment w 0 LATESHA 0 steps to bed/ bathroom (walk in shower) Lives alone w son PRN assistance Equipment available: rollator, shower chair, grab bars Ind w ADL+ assist for IADLs IA for functional mobility w rollator (-) Drive (-) Falls Per chart: pt resides at SNF ([facility]) with staff assist OBJECTIVE: Patient Identification: patient verbalizing his/her name and date of . and patient's id band and date of . Risks and benefits of occupational therapy: Patient informed of risks and benefits of treatment Appearance: supine in bed upon arrival, noy belt, hep lock IV, tele, BP cuff Alertness: WFL Affect: WNL Cooperation/Behavior: Appropriate dialogue with therapist and Pleasant and cooperative Communication: WFL Pain: Pain ratin/10 Pain Relief Interventions Implemented: Positioning Self Care: Assistance Level Dep Max Mod Min CG CS DS IA I Set-Up Comment Feeding x x NPO Anticipate CS Grooming/Hygiene x x Anticipate seated Bathing:UB x Anticipate seated Bathing:LB x Anticipate seated Dressing:UB x Adjust hospital gown seated EOB Dressing: LB x Anticipate seated Toileting x x Anticipate CS for pericare and CGA for clothing management Transfers/Bed Mobility: Assistance Level Dep Max Mod Min CG CS DS IA I Set-Up Comment Toilet Transfers x Anticiapte CGA w FWW and use of grab bars Bed Transfers x CGA for STS EOB w FWW VC for hand placement Bed Mobility x Supine -> sit EOB VC for pursed lip breathing upon static sitting EOB Functional ambulation x ~ 3 steps w FWW from EOB -> chair VC for safe sequencing w device Endurance for Self Care: Impaired Pt reports dizziness upon mobilization. Educated on pursed lip breathing Vitals Supine/ At rest EOB During mobility Post mobility HR 84 90 82 BP 112/78 99/66 (76) SPO2 100 90 82 Static Sitting Balance: Good Dynamic Sitting Balance: Good UE Motor: WFL for ADL tasks Vision/Perception: wears glasses Cognition: Orientation: Oriented to person, requries VC for place, date Follows Commands: one step commands w VCs Attention: Impaired Memory: Impaired, confused Problem Solving: Impaired Safety/Judgement: Impaired Sequencing: Impaired Patient/Family Education: Instructed patient in roles of therapy, Patient instructed in pursed lip breathing, importance of OOB movement, and instructed in roles, goals, treatment plan: demonstrated good verbal understanding Patient up in chair with call light in reach. Chair alarm intact. [place] belt in place. DME: With Patients permission ordered no equipment via HeartThis Order. If any questions contact [facility] DME Provider at [phone]. 01/27/2025 6 Clicks Daily Activity OT Help from another person Eating meals 3 Help from another person taking care of personal grooming 3 Help from another person bathing 3 Help from another person putting on and taking off regular upper body clothing 3 Help from another person putting on and taking off regular lower body clothing 3 Help from another person toileting 3 OT 6 Clicks Score 18 6 Click Score Guidelines: 1 - Unable = Total/Dependent Assist 2 - A lot = Max/Moderate Assist 3 - A little = Minimum/Contact Guard Assist/Supervision 4 - Non = Modified [place]/Independent ASSESSMENT: Recommend further therapy services in a Skilled Rehab Setting once medically cleared. Will continue to follow patient while in hospital as appropriate. Rehabilitation Potential: Good Problem List: decreased ADLs, impaired upper extremity motor function, decreased endurance, decreased functional transfers/mobility, decreased cognition, decreased home management tasks/IADLs, decreased functional activity tolerance, and increased pain Goals (to be achieved by discharge from acute care): Patient will feed self with Modified Independent Patient will perform grooming with Modified Independent Patient will dress upper body with Modified Independent Patient will dress lower body with Modified Independent Patient will perform bed mobility with Modified Independent Patient will perform bathing with Modified Independent Patient will perform toileting with Modified Independent Patient will perform bed transfers with Modified Independent Patient will perform commode transfers with Modified Independent PLAN: Ely Hurtado will be seen 1-3 times a week. Treatment to include: Functional AROM/Strengthening, PROM / joint mobilization, functional mobility training, ADL retraining, functional endurance activities, work simplification / energy conservation, cognitive retraining, home management retraining, functional task simulation, adaptive equipment / compensatory strategy training, patient / family education and discharge planning, and referral to appropriate support services able to discuss the evaluation findings and treatment plan with the patient/family. The patient/family did participate in the development of plan and goals. This student therapist collaborated with a licensed, supervising therapist for patient assessment and/or treatment per the identified plan of care as appropriate. This document is not finalized until reviewed and co-signed by the licensed, supervising therapist. Sayra Resendez S/ALEXANDER I was present and participated in the delivery of services for this encounter. In addition, I am responsible for the skilled judgement and assessment of all interventions provided. POONAM Garcia NA = Not Assessed, I = Independent, IA = Modified Independent, Sup = Supervised, Set up = Physical Assistance for Set-up Only, Min = Minimal Assistance, Mod = Moderate Assistance, Max = Max assistance; Dep = Dependent; AROM = Active Range of Motion;PROM=Passive Range of Motion; MMT = Manual Muscle Test; UB = Upper Body; LB = Lower Body [1] No past surgical history on file. Associated Order(s): IP GASTROENTEROLOGY CONSULT Images from the original note were not included. Department of Gastroenterology and Hepatology Consult H&P Note GI Attending Physician: Dr. Isauro Frias MD Patient: Ely Hurtado Location: [facility]413/1 Reason for Consult: HPI Ely Hurtado is a 84 year old female with prior history of anemia, hepatic artery aneurysm, admitted to step-down unit for evaluation of rectal bleeding. The patient resides at a nursing facility and was noted to have bright red bleeding per rectum. She was evaluated at outside hospital, where a CT abdomen and pelvis revealed a 4 centimeter hepatic aneurysm, and her hemoglobin was 6 prior to transferred to [facility]. She received 2 units of RBC transfusion. Since her transfer, she had an episode of bleeding per rectum. However, today she denies any bleeding per rectum, denies melena, nausea, vomiting, abdominal pain. She was started on bowel prep yesterday, has liquid stool which is not clear yet. Denies prior EGD or colonoscopy Not on anticoagulation Denies family history of GI cancer Denies smoking, alcohol use, or recreational drug use Review Of Systems Positives as noted in HPI. All other systems were reviewed and negative. GI Procedures - none Medical and Surgical Histories Medical History[1] Surgical History[2] Family History: family history is not on file. Social History Social History[3] atorvastatin, 10 mg, Oral, At Bedtime pantoprazole, 40 mg, Intravenous, Daily polyethylene glycol, 17 g, Oral, Daily senna, 8.6 mg, Oral, Daily Physical Exam BP 137/89 (BP Location: right arm) Pulse 101 Temp 98.2 F (36.8 C) Resp 28 Ht 5' 9" (1.753 m) Wt 132 lb 11.5 oz (60.2 kg) SpO2 86% BMI 19.60 kg/m General: well-nourished, well-groomed, pleasant, NAD Pulm: no increased WOB on room air, CTAB Card: RRR, no murmurs Abdomen: soft, nontender, nondistended, normal bowel sounds KIRBY: bleeding per rectum Extremities: no NICKY, no gross deformity Labs CBC/PT/INR 01/26/2025 01/25/2025 01/25/2025 01/25/2025 5:04 AM 8:14 PM 1:58 PM 1:22 PM WBC 8.9 10.2 -- 7.8 RBC 3.67 4.11 -- 3.86 Hgb 8.7 9.8 -- 9.0 Hct 26.8 29.7 -- 28.2 MCV 73 72 -- 73 RDW 20.0 19.8 -- 19.7 Plt 189 221 -- 189 INR -- -- 1.22 -- Hepatic/Biliary/Pancreas 01/25/2025 1:22 PM T Prot 5.1 Albumin 3.4 D Bili 0.42 T Bili 2.5 Alk Phos 52 ALT 7 AST 15 Basic Metabolic Panel 01/26/2025 01/25/2025 5:04 AM 1:22 PM Na 141 142 K 3.7 3.8 Cl 110 108 CO2 23 26 Gap 12 12 Glu 85 98 BUN 9 13 Cr 0.58 0.61 Ca 7.9 8.3 Mg 1.9 2.0 PT/INR 01/25/2025 1:58 PM INR 1.22 Imaging Hepatobiliary: Unremarkable liver without biliary dilation. Cholelithiasis without CT evidence of acute cholecystitis. Additional hyperdense material within the gallbladder likely represents vicarious excretion of contrast. IMPRESSION: 1. 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 2. Chronic ancillary findings as above. ASSESSMENT 84-year-old female with history of chronic anemia, prior history of DVT, not on anticoagulation, admitted to step-down unit with bleeding per rectum. She received 2 units of transfusion prior to transfer from outside hospital, however since admission she has been hemodynamically stable, she did have an episode of bright red bleeding per rectum. 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 Continue NPO. Continue transfusion for hemoglobin less than 7 The patient expressed good understanding of the above discussion and plan. All questions were answered to her full satisfaction. Shahid Toledo MD, MS Gastroenterology Fellow. Consult Pager [phone] Discussed with GI attending, Dr. Adrien Caraballo MD Primary team updated yes. Thank you for involving us in the care of this patient. I appreciate the excellent care from the nursing staff, and practice support specialist. Dictated using voice recognition software. Document may contain errors not identified Addendum: During the afternoon rounds, she appeared disoriented and declined the colonoscopy procedure tomorrow. I spoke with her son Aliza ([email or web address]), obtained verbal consent from from her son. Please give 2 L of bowel prep. Continue NPO after midnight. Plan for colonoscopy tomorrow Teaching Physician Note I saw and evaluated the patient. I personally obtained the javed and critical portions of the history and physical exam. I reviewed the fellow's documentation and discussed the patient with the fellow. I agree with the fellow's medical decision making as documented in the resident's note. Mary Peña. Staff Gastoenterologist Division of Gastroenterology & Hepatology [facility] [1] No past medical history on file. [2] No past surgical history on file. [3] Images from the original note were not included. Interventional Radiology Consult Date: 01/25/25 Name: Ely Hurtado Reason for Consult: Hepatic proper saccular aneurysm Assessment & Plan Assessment & Plan Ely Hurtado is a 84 year old female here for rectal bleeding. 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 Patient currently scheduled to have a scope with GI tomorrow. Pressures are soft, hgb 9, no tachycardia. Upon review of the images with attending physician, The CTA was negative for bleed that IR could address. We recommend GI scope and stabilizing the patient pending IR intervention for the saccular aneurysm. Plan No acute intervention at this time Given negative CTA recommend GI scope for rectal bleeding Agree with holding home AC/AP Trend hgb, Hgb > 7, transfuse PRN Thank you for including us in this patient's care plan. Please contact IR once the patient's primary reason for hospitalization has resolved. The patient and the plan was discussed with the oncall attending Tristan Garrison DO. Subjective Subjective Ely Hurtado is a 84 year old female here for rectal bleeding. Interventional radiology was consulted for saccular aneurysm of hepatic proper noted on OSH exam. Allergies Allergies[1] Past medical History There is no previous medical history on file. Past Surgical History Surgical History[2] Objective Objective BP 104/68 (BP Location: left arm) Pulse 81 Temp 97.5 F (36.4 C) (Oral) Resp 23 Ht 5' 9" (1.753 m) Wt 135 lb 2.3 oz (61.3 kg) SpO2 95% BMI 19.96 kg/m BMP (last 1 year, up to 8 values) 01/25/2025 1:22 PM Na 142 K 3.8 Cl 108 CO2 26 Gap 12 Glu 98 BUN 13 Cr 0.61 Ca 8.3 eGFR 89 Mg 2.0 CBC 01/25/2025 1:22 PM WBC 7.8 RBC 3.86 Hgb 9.0 Hct 28.2 MCV 73 RDW 19.7 Plt 189 PT/INR 01/25/2025 1:58 PM INR 1.22 [1] Not on File [2] No past surgical history on file. 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 Whittaker or until AC restarted. [facility] 01-30-2025 Evaluation + Plan note Associated Problem(s): Rectal bleeding --trend CBC daily, transfuse as need, Hb goal >7. s/p 2u pRBCs. --GI consulted s/p colonoscopy 01/27/2025 with a rectal polyp biopsy to rule out malignancy; follow up pathology. This is thought to be etiology of her bleed versus internal hemorrhoids. --will need outpatient repeat colonoscopy for polypectomy --internal hemorrhoids noted, recommend routine hemorrhoid care --pharmacy dispense reports has been on Eliquis since 02/11/2024 --Eliquis currently held since 01/23/2025, unknown nature of DVT. If lifelong anticoagulation is advised will need to restart Eliquis. --discussed with the patient's son starting on therapeutic Lovenox and if no further signs of bleeding to transition to Eliquis for discharge. I will reach out to GI today to ensure it is okay to resume anticoagulation after polyp biopsy [facility] 01-30-2025 Evaluation + Plan note Associated Problem(s): Acute blood loss anemia (ABLA) --trend CBC daily, transfuse as need, Hb goal >7. s/p 2u pRBCs. --GI consulted s/p colonoscopy 01/27/2025 with a rectal polyp biopsy to rule out malignancy; follow up pathology. This is thought to be etiology of her bleed versus internal hemorrhoids. --will need outpatient repeat colonoscopy for polypectomy --internal hemorrhoids noted, recommend routine hemorrhoid care --pharmacy dispense reports has been on Eliquis since 02/11/2024 --Eliquis currently held since 01/23/2025, unknown nature of DVT. If lifelong anticoagulation is advised will need to restart Eliquis. --discussed with the patient's son starting on therapeutic Lovenox and if no further signs of bleeding to transition to Eliquis for discharge. I will reach out to GI today to ensure it is okay to resume anticoagulation after polyp biopsy [facility] 01-30-2025 Evaluation + Plan note Associated Problem(s): History of DVT (deep vein thrombosis) --trend CBC daily, transfuse as need, Hb goal >7. s/p 2u pRBCs. --GI consulted s/p colonoscopy 01/27/2025 with a rectal polyp biopsy to rule out malignancy; follow up pathology. This is thought to be etiology of her bleed versus internal hemorrhoids. --will need outpatient repeat colonoscopy for polypectomy --internal hemorrhoids noted, recommend routine hemorrhoid care --pharmacy dispense reports has been on Eliquis since 02/11/2024 --Eliquis currently held since 01/23/2025, unknown nature of DVT. If lifelong anticoagulation is advised will need to restart Eliquis. --discussed with the patient's son starting on therapeutic Lovenox and if no further signs of bleeding to transition to Eliquis for discharge. I will reach out to GI today to ensure it is okay to resume anticoagulation after polyp biopsy [facility] 01-30-2025 Evaluation + Plan note Associated Problem(s): Chronic anticoagulation --trend CBC daily, transfuse as need, Hb goal >7. s/p 2u pRBCs. --GI consulted s/p colonoscopy 01/27/2025 with a rectal polyp biopsy to rule out malignancy; follow up pathology. This is thought to be etiology of her bleed versus internal hemorrhoids. --will need outpatient repeat colonoscopy for polypectomy --internal hemorrhoids noted, recommend routine hemorrhoid care --pharmacy dispense reports has been on Eliquis since 02/11/2024 --Eliquis currently held since 01/23/2025, unknown nature of DVT. If lifelong anticoagulation is advised will need to restart Eliquis. --discussed with the patient's son starting on therapeutic Lovenox and if no further signs of bleeding to transition to Eliquis for discharge. I will reach out to GI today to ensure it is okay to resume anticoagulation after polyp biopsy [facility] 01-30-2025 Evaluation + Plan note Associated Problem(s): Hyperlipidemia, unspecified --chronic. stable. 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 Furthermore, she will also found to have acute blood loss anemia with hematochezia. She was admitted to the medical step-down unit and underwent colonoscopy with finding of polyps vs internal hemorrhoids as likely etiology of bleed. Also underwent proper hepatic artery coil embolization on 01/28/2025 for saccular aneurysm. There were no further episodes of bleeding and her hemoglobin remained stable. She was transferred to the general medical floor on 01/29 for trial of re-initiation of anticoagulation before discharge. INTERVAL HPI: Patient not endorsing any complaints today. She denies any hematemesis, hematochezia, melena, hematuria. She is unaware of what medication she is supposed to be taking at home and is unaware of any prior history of diagnosed medical problems. I spoke with her son regarding the patient's chronic medications, specifically apixaban. He states that does not know when she was diagnosed with a DVT or how long she has been on Eliquis. Objective PHYSICAL EXAM: BP 117/73 (BP Location: left arm) Pulse 86 Temp 98.8 ???F (37.1 ???C) (Oral) Resp 18 Ht 5' 9" (1.753 m) Wt 145 lb 8 oz (66 kg) SpO2 98% BMI 21.49 kg/m??? Gen: Alert, no distress HEENT: NC/AT Cardio: RR Pulm: unlabored resps Ext: Warm, no edema Neuro: Moves all extremities Psych: Pleasant mood and affect DATA Febrile yesterday late afternoon. No fevers since then. Unremarkable BMP and CBC with stable microcytic anemia Assessment AND Plan Rectal bleeding Acute blood loss anemia (ABLA) History of DVT (deep vein thrombosis) Chronic anticoagulation --trend CBC daily, transfuse as need, Hb goal >7. s/p 2u pRBCs. --GI consulted s/p colonoscopy 01/27/2025 with a rectal polyp biopsy to rule out malignancy; follow up pathology. This is thought to be etiology of her bleed versus internal hemorrhoids. --will need outpatient repeat colonoscopy for polypectomy --internal hemorrhoids noted, recommend routine hemorrhoid care --pharmacy dispense reports has been on Eliquis since 02/11/2024 --Eliquis currently held since 01/23/2025, unknown nature of DVT. If lifelong anticoagulation is advised will need to restart Eliquis. --discussed with the patient's son starting on therapeutic Lovenox and if no further signs of bleeding to transition to Eliquis for discharge. 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 Whittaker or until AC restarted. Hyperlipidemia, unspecified --chronic. stable. 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 Furthermore, she will also found to have acute blood loss anemia with hematochezia. She was admitted to the medical step-down unit and underwent colonoscopy with finding of polyps vs internal hemorrhoids as likely etiology of bleed. Also underwent proper hepatic artery coil embolization on 01/28/2025 for saccular aneurysm. There were no further episodes of bleeding and her hemoglobin remained stable. She was transferred to the general medical floor on 01/29 for trial of re-initiation of anticoagulation before discharge. INTERVAL HPI: Patient not endorsing any complaints today. She denies any hematemesis, hematochezia, melena, hematuria. She is unaware of what medication she is supposed to be taking at home and is unaware of any prior history of diagnosed medical problems. I spoke with her son regarding the patient's chronic medications, specifically apixaban. He states that does not know when she was diagnosed with a DVT or how long she has been on Eliquis. Objective PHYSICAL EXAM: BP 117/73 (BP Location: left arm) Pulse 86 Temp 98.8 F (37.1 C) (Oral) Resp 18 Ht 5' 9" (1.753 m) Wt 145 lb 8 oz (66 kg) SpO2 98% BMI 21.49 kg/m Gen: Alert, no distress HEENT: NC/AT Cardio: RR Pulm: unlabored resps Ext: Warm, no edema Neuro: Moves all extremities Psych: Pleasant mood and affect DATA Febrile yesterday late afternoon. No fevers since then. Unremarkable BMP and CBC with stable microcytic anemia Assessment & Plan Rectal bleeding Acute blood loss anemia (ABLA) History of DVT (deep vein thrombosis) Chronic anticoagulation --trend CBC daily, transfuse as need, Hb goal >7. s/p 2u pRBCs. --GI consulted s/p colonoscopy 01/27/2025 with a rectal polyp biopsy to rule out malignancy; follow up pathology. This is thought to be etiology of her bleed versus internal hemorrhoids. --will need outpatient repeat colonoscopy for polypectomy --internal hemorrhoids noted, recommend routine hemorrhoid care --pharmacy dispense reports has been on Eliquis since 02/11/2024 --Eliquis currently held since 01/23/2025, unknown nature of DVT. If lifelong anticoagulation is advised will need to restart Eliquis. --discussed with the patient's son starting on therapeutic Lovenox and if no further signs of bleeding to transition to Eliquis for discharge. 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 Whittaker or until AC restarted. Hyperlipidemia, unspecified --chronic. stable. continue home statin DVT PPX: SCDs CODE: Full Code DISPO: Home vs SNF pending reintroduction of AC and re-eval by PT/OT Floyd Odom DO Hospital Medicine Progress Note Ely Hurtado Age [age] year old female [id number] AC8-704/2 Admitted 01/25/2025 12:28 PM Hospital Day: 5 HOSPITAL COURSE: Ely Hurtado is a 84 year old female admitted on 01/25/2025 with a history of anemia, rectal bleeding, history of DVT (Eliquis), aneurysm of hepatic artery transferred from [facility] for urgent vascular intervention. Patient with acute anemia requiring 2 units of PRBC's prior to transfer. While in medical step-down unit patient underwent colonoscopy with polyp biopsy on 01/27/2025. Patient underwent proper hepatic coil embolization on 01/28/2025 for saccular aneurysm noted at outside hospital. SUBJECTIVE: Ely Hurtado reports feeling okay. Denies any bloody or black stools. Reports tolerating diet without nausea or vomiting. Patient denies history of DVT or blood clot and does not remember taking Eliquis, apixaban, or other blood thinners. OBJECTIVE: BP 136/75 (BP Location: left arm) Comment: Pt recently ambulating from Pulse 107 Temp 98.4 F (36.9 C) (Oral) Resp 20 Ht 5' 9" (1.753 m) Wt 139 lb 15.9 oz (63.5 kg) SpO2 98% BMI 20.67 kg/m Physical Exam General: NAD. Lying in bed. HEENT: Conjunctiva clear. No scleral icterus. Heart: RRR. No murmurs or rub. Lungs: Lungs clear to auscultation. Good air entry bilaterally. No wheezes. Abdomen: Soft. Non-tender. Non-distended. Extremities: No pitting LE edema Neuro: Alert. No facial asymmetry. Moves all extremities. Skin: Warm & dry. Psych: Calm & cooperative. Data (Review and Interpretation of Data (including Tele, EKG, Labs, Imaging): Labwork CBC: no leukocytosis, stable microcytic anemia 7.8 BMP: no ROSARIO or significant electrolyte disturbance Imaging CTA abd with 4.1 cm saccular hepatic artery aneurysm EKG is notable for NSR, 82bpm. QTC 509. Assessment & Plan Rectal bleeding Acute blood loss anemia (ABLA) History of DVT (deep vein thrombosis) Chronic anticoagulation --trend CBC daily, transfuse as need, Hb goal >7. s/p 2u pRBCs. 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 Whittaker or until Eliquis restarted. Hyperlipidemia, unspecified --chronic. stable. continue home statin Diet/Fluids: Regular DVT Prophylaxis: SCDs CODE: Full Code COMMUNICATION: The patient's plan of care was discussed with the Nurse and Patient. All questions and concerns addressed. NOK: Primary Emergency Contact: aliza hurtado, Aliza Hancock MD [facility] Medicine CRITICAL CARE ATTENDING PROGRESS NOTE (50) 30 minutes of time was spent with my full attention devoted to this patient's managment. ANYTIME SPENT IN FAMILY MEETINGS TO MAKE MEDICAL DECISIONS OR PERFORMING PROCEDURES DOCUMENTED ELSEWHERE IS NOT INCLUDED IN THE ABOVE DOCUMENTED TIME. I have reviewed the residents documentation and after personally interviewing, examining and reviewing records/data/ radiographs and tracings, I agree with history, physical examination, data assessment, diagnoses and plan as outlined except where differences are stated below. MEDICAL DECISION MAKING (arrived at with personal review of labs, images and tracings) PROBLEMS DIAGNOSTICS THERAPEUTICS #1LGIB due to rectal polyp vs Hepatic artery anerysm Serial CBC Await colon biopsy S/P embolization of Hepatic A. Aneurysm Hemorrhoidal care #2 [employer] stable Neurochecks #3CV Resolved hypotension VS&ECG monitoring #4Respiratory hypoxemia Bibasilar atelectasis SpO2 monitoring IS #5Volume/Elimination/Nutr. 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 HPI: Antecedent history and/or hospital course revealed tx 2 u PRBC Since the last visit the patient's complaint of hypoxemia hypotension /bleeding has been treated with:IVF/oxygensupplement/blood PMH:reviewed and found as previous with no new additional data FH: as prior note described SH: as prior notation described ROS: unchanged from admission documentation OVERNIGHT No evidence of ongoing bleed Stable hct Mild discomfort with abdominal palpation and at IR access site PHYSICAL EXAM Blood pressure 110/67, pulse 70, temperature 98.2 F (36.8 C), temperature source Axillary, resp. rate 14, height 5' 9" (1.753 m), weight 139 lb 15.9 oz (63.5 kg), SpO2 94%. Intake/Output Summary (Last 24 hours) at 01/28/2025 1921 Last data filed at 01/28/2025 1525 Gross per 24 hour Intake 590 ml Output 680 ml Net -90 ml Total for stay +0 L On 30L TBW weight stable Catheters/Lines/tubes: PIV and NO Gamez catheter Ventilator / oxygen supplement = FiO2=0-3LPM General: no apparent distress HEENT: pupils 3mm mucus membranes : Moist Neck: trach midline Chest: normal excursion normal air exchange no crackles CV: pulse full S1 S2 RRR gallop(-) SEMurmur + GI: scaphoid non-tender Musculoskeletal: Posture Upright Integumentary: Turgor: Dry Psych: Calm Neurologic: alert sedated and does follow commands and withdraws 4/4 extremities LAB Per EMR with notable changes including: HEMOGRAM/COAGULATION hct= 30-> 25% wbc= 7.8 platelets = 264 -> 174 INR = nl aPTT = ? CHEMISTRY Na= 142/3.4/112 HCO3= 21-> 24 ag = 8/11 BUN = 5 creat = 0.5 glucose = 105 ca = albumin=3.4 lactate = 1.6 EKG = SR@82 QTC= 410msec low volts Cultures reviewed notable changes include None Radiography reviewed and notable changes include atelectasis both bases CODE STATUS: FULL NOK is son aliza and family unavailable Stable for transfer to sheets Issues Follow up polyp pathology Monitor BM and hgb Assure voiding after gamez out PO PPI Dispo back to [facility] Dr. Jose Rafael Magdaleno. Lyly [id number] bp#[id number] Images from the original note were not included. 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 Patient who currently resides at [facility] ([facility]) where she was found to have significant bright red blood in her stool following multiple episodes of diarrhea on the morning of 01/24. They were transferred to the [facility] ED later that day for further evaluation. On presentation BP was 146/83, HR 104. CBC notable for drop og Hb from 11 3 months ago to 8.2. Repeated CBC showed a further drop of Hgb to 6.2. 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 Patient admitted directly to SDU and transfused w/ 2 units of pRBC prior to transfer. On presentation to the floors, patient is vitally stable and in no acute distress. Required straight catheterization and gamez insertion for urinary retention 01/28 s/p Colonoscopy showed one rectal polyp (biopsied) and Int hemorrhoids likely cause of BRBPR. Recommend repeat colo if abnormal path results and hemorrhoid care. Pt s/p IR guided coil embolization of hepatic artery aneurysm 01/28/2025. Recommend f/u angiography in 3 months, restarting aspirin for 3 months or until Eliquis restarted. Pt's condition improving and she deems stable to be transferred to the general floors. SUBJECTIVE: INTERVAL UPDATES: NAEON HgB 7.8 today S/p IR guided coil embolization of hepatic artery aneurysm SUBJECTIVE: Patient seen and examined at bedside. Denies any concerns today and no BM since yesterday. No CP, SOB, dizziness or light headedness OBJECTIVE: Objective Temperature: [98 F (36.7 C)-98.3 F (36.8 C)] 98.3 F (36.8 C) Heart Rate: [51-88] 71 Respiratory Rate: [10-27] 23 BP: (95-135)/(60-84) 127/72 O2 Device: Room air at 91 % Intake/Output Summary (Last 24 hours) at 01/29/2025 0754 Last data filed at 01/29/2025 0600 Gross per 24 hour Intake 120 ml Output 905 ml Net -785 ml LABS: CBC: (01/29/2025: 12:40 AM) WBC 7.8 \\ Hgb 7.8 / Plt 174 / Hct 24.9 \\ Results Review BMP: (01/29/2025: 12:40 AM) 142 112 5 Gluc 105 3.4 24 0.52 Mg PO4 Ca 1.9 N/A 7.9 (1.6-2.8) (2.5-4.8) (8.4-10) PHYSICAL EXAM: General: NAD. HEENT: EOMI. Conjunctiva clear. No scleral icterus. Heart: RRR. No murmurs or rub. Lungs: CTAB. Abdomen: Soft. Non-tender. Non-distended. Extremities: No LE edema. Neuro: No focal deficits. A&Ox2 Skin: Warm & dry. 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 2. Chronic ancillary findings as above. CONSULTS: IP GASTROENTEROLOGY CONSULT ASSESSMENT AND PLAN: Ely Hurtado is a 84 year old female with a history of anemia, rectal bleeding, dvt history, auerysm of hepatic artery admitted with anemia and LGIB work up PROBLEM LIST: Neuro AxOx2 at [facility] per OSH notes. Cardiology -No Acute concerns at this time Pulmonary No Acute concerns Gastrointestinal #Rectal Bleeding #Hepatic Aneurysm/pseudoaneurysm -CBC OSH 6 ->9 admission s/p 2u pRBC at OSH -Lactic Acid on admission 1 from 2 at OSH -PT/NR 13.7 and 1.22 -CT notable for hepatic aneurysm that needs IR consult, formal images not sent from OSH. -CTA abdomen showed 4.1 cm saccular aneurysm, -s/p colonoscopy 01/27, show colonic and rectal polyps and hemorrhoids. Recommend f/u pathology and repeat colo if abn path and hemorrhoid care. Plan -Daily CBC -Protonix 40 mg PO daily. -S/p IR guided coil embolization IR recs Follow up angiography in 3 months Start 81mg aspirin as soon as possible per primary team, or until Eliquis restarted Infectious Disease No acute concern Renal #Urinary retention -Patient state they don't want to urinate and required straight cath which gave 1L of urine output -Gamez inserted..TOV Hem/Onc #Rectal Bleeding #Anemia #Hypocalcemia #Hypokalemia -k 3.4 this AM Plan: -Holding home Eliquis, last dose 01/23 -Restarted on home Statin -Trend hgb, Hgb > 7, transfuse PRN -Given PPI 40 mg PO - f/u pathology (polyp) may need to be removed on a later date Endocrine No acute Concerns -Elevated total and direct bili 2.5/0.42 -Evidence of cholestasis on OSH imaging but no abdominal pain described by patient -CTM MSK/Rheum No Acute cncern -Excoriations noted on groin and buttocks -Nystatin and triad ordered Feeding Regular Analgesia - Sedation N/A VTE ppx SCD HOB Eval 30 Degrees Ulcer ppx Protonix Glycemic Control Target 140-180 SBT N/A Bowel Regimen Senna Indwelling Gamez Drug De-Escalation - Dispo: SNF Code Status: Full Code This plan is preliminary until finalized by an attending physician. Nelda James DO PGY-2 Family Medicine Stepdown Unit Pager [phone] patient to get up and walk and to get into chair. Patient refused. Patient family insisting patient get up and move and walk. Attempted this with patient, patient refused at this time. Patient educated importance of movement and getting up, patient also educated on NPO status. Patient aware and agreeable to NPO. Images from the original note were not included. Division of Pulmonary, Critical Care, and Sleep Medicine Stepdown Unit ATTENDING NOTE Code Status: Full Code DPOAHC/NOK: Aliza Hurtado (Son) Admission Date and Time: 01/25/2025 12:28 PM LOS: 3 days I saw and evaluated Ms. Ely Hurtado. I personally obtained javed and critical portions of the history and physical examination. I reviewed the resident's documentation and discussed the patient with the residents and the MSDU team. I agree with the resident's medical decision making as documented in their note. No Critical Care time SUBJECTIVE: Tolerated colonoscopy without difficulty yesterday. No further hematochezia. Social Connections: Not on file Tobacco Use History[1] OBJECTIVE: Allergy: Patient has no allergy information on record. Patient Vitals for the past 24 hrs: BP Temp Temp src Pulse Resp SpO2 O2 Device O2 Flow Rate (l/min) 01/28/25 1100 101/65 -- -- 88 26 96 % -- -- 01/28/25 1000 108/70 -- -- 80 19 96 % -- -- 01/28/25 0900 115/72 -- -- 85 27 96 % -- -- 01/28/25 0800 104/67 -- -- 74 15 96 % -- -- 01/28/25 0740 -- -- -- -- -- -- Room air -- 01/28/25 0700 106/65 -- -- 69 26 93 % -- -- 01/28/25 0600 112/72 -- -- 70 15 92 % Room air -- 01/28/25 0400 96/61 98.2 F (36.8 C) Axillary 73 20 94 % Room air -- 01/28/25 0200 101/61 -- -- 68 20 95 % Room air -- 01/28/25 0000 105/62 98.1 F (36.7 C) Axillary 78 21 95 % Room air -- 01/27/25 2300 104/54 -- -- 78 27 96 % Room air -- 01/27/251999 116/78 97.6 F (36.4 C) Oral 85 19 96 % Room air -- 01/27/25 1900 106/74 -- -- 78 24 100 % -- -- 01/27/25 1816 99/55 -- -- 75 13 96 % Room air -- 01/27/25 1639 -- -- -- -- -- -- Room air -- 01/27/25 1632 107/67 -- -- 67 14 98 % Room air -- 01/27/25 1627 -- -- -- 72 12 100 % Room air -- 01/27/25 1626 -- -- -- -- -- -- Room air -- 01/27/25 1624 113/72 -- -- 69 12 100 % Nasal cannula 2 01/27/25 1622 115/69 -- -- 71 11 100 % Nasal cannula 2 01/27/25 1620 112/73 -- -- 72 10 100 % Nasal cannula 2 01/27/25 1618 120/76 -- -- 71 11 100 % Nasal cannula 2 01/27/25 1616 118/74 -- -- 71 12 100 % Nasal cannula 2 01/27/25 1614 118/73 -- -- 71 12 100 % Nasal cannula 2 01/27/25 1612 113/72 -- -- 75 23 100 % Nasal cannula 2 01/27/25 1610 97/76 -- -- 77 14 100 % Nasal cannula 2 01/27/25 1608 99/70 -- -- 78 21 100 % Nasal cannula 2 01/27/25 1606 123/89 -- -- 73 12 100 % Nasal cannula 2 01/27/25 1604 114/69 -- -- 72 8 100 % Nasal cannula 2 01/27/25 1602 129/76 -- -- 58 16 100 % Nasal cannula 2 01/27/25 1600 131/79 -- -- 82 20 100 % Nasal cannula 2 01/27/25 1400 111/69 98 F (36.7 C) Oral 77 23 97 % -- -- 01/27/25 1339 116/71 97 F (36.1 C) Oral 81 18 99 % Room air -- 01/27/25 1200 110/70 98.3 F (36.8 C) Oral 83 16 99 % Room air -- Intake/Output Summary (Last 24 hours) at 01/28/2025 1126 Last data filed at 01/28/2025 0740 Gross per 24 hour Intake 590 ml Output 550 ml Net 40 ml RASS: 0 LABS: Basic Metabolic Panel 01/28/2025 01/27/2025 01/26/2025 01/25/2025 12:29 AM 5:10 AM 5:04 AM 1:22 PM Na 142 145 141 142 K 3.2 3.2 3.7 3.8 Cl 113 112 110 108 CO2 21 23 23 26 Gap 11 13 12 12 Glu 135 68 85 98 BUN 7 5 9 13 Cr 0.56 0.54 0.58 0.61 Ca 7.8 7.8 7.9 8.3 Mg 1.9 2.0 1.9 2.0 Date of last serum creatinine: 01/28/2025 Estimated Creatinine Clearance: 77.64 mL/min (A) (by C-G formula based on SCr of 0.56 mg/dL (L)). Estimated Glomerular Filtration Rate: 91.3 mL/min/1.73m2 (A) (by CKD-EPI based on SCr of 0.56 mg/dL (L)). CBC/PT/INR 01/28/2025 01/27/2025 01/26/2025 01/26/2025 01/25/2025 01/25/2025 01/25/2025 12:29 AM 5:10 AM 2:49 PM 5:04 AM 8:14 PM 1:58 PM 1:22 PM WBC 8.0 7.7 7.9 8.9 10.2 -- 7.8 RBC 3.21 3.40 3.65 3.67 4.11 -- 3.86 Hgb 7.4 7.9 8.4 8.7 9.8 -- 9.0 Hct 23.7 24.6 26.2 26.8 29.7 -- 28.2 MCV 74 72 72 73 72 -- 73 RDW 20.5 20.0 19.8 20.0 19.8 -- 19.7 Plt 177 189 197 189 221 -- 189 INR -- -- -- -- -- 1.22 -- WBC/Diff 01/28/2025 12:29 AM Neutro% 71.3 Lymph% 11.5 Eos% 2.8 Hepatic/Biliary/Pancreas 01/25/2025 1:22 PM T Prot 5.1 Albumin 3.4 D Bili 0.42 T Bili 2.5 Alk Phos 52 ALT 7 AST 15 Colonoscopy from yesterday was reviewed: Multiple adenomatous colonic polyps (s/p biopsy) Few scattered diverticula noted in sigmoid colon ASSESSMENT & PLAN: Painless hematochezia secondary to lower gastrointestinal hemorrhage Likely source is diverticula and rectal polyps and internal hemorrhoids all noted on colonoscopy No bleeding overnight Colonic polyps x 4 Follow up on pathology These will likely need to be removed at a later date Acute blood loss anemia secondary to 1. 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 Patient who currently resides at [facility] ([facility]) where she was found to have significant bright red blood in her stool following multiple episodes of diarrhea on the morning of 01/24. They were transferred to the [facility] ED later that day for further evaluation. On presentation BP was 146/83, HR 104. CBC notable for drop og Hb from 11 3 months ago to 8.2. Repeated CBC showed a further drop of Hgb to 6.2. 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 Patient admitted directly to SDU and transfused w/ 2 units of pRBC prior to transfer. On presentation to the floors, patient is vitally stable and in no acute distress. Reported that they had a one day episode of bloody stools Axox2 at baseline and during admission. Patient does not endorse acute issues and has not had a BM since arriving. Not endorsing fever, chills, SOB, n/v, lightheadedness or headaches. 01/28 s/p Colonoscopy showed one rectal polyp (biopsied) and Int hemorrhoids likely cause of BRBPR. Recommend repeat colo if abnormal path results and hemorrhoid care. SUBJECTIVE: INTERVAL UPDATES: NAEON HgB 7.4 today SUBJECTIVE: Patient seen and examined at bedside. Denies any concerns today and no BM since yesterday. No CP, SOB, dizziness or light headedness OBJECTIVE: Objective Temperature: [97 F (36.1 C)-98.3 F (36.8 C)] 98.2 F (36.8 C) Heart Rate: [58-88] 69 Respiratory Rate: [8-27] 26 BP: (96-131)/(54-89) 106/65 O2 Device: Room air at 93 % Intake/Output Summary (Last 24 hours) at 01/28/2025 0807 Last data filed at 01/28/2025 0740 Gross per 24 hour Intake 590 ml Output 700 ml Net -110 ml LABS: CBC: (01/28/2025: 12:29 AM) WBC 8.0 \\ Hgb 7.4 / Plt 177 / Hct 23.7 \\ Results Review BMP: (01/28/2025: 12:29 AM) 142 113 7 Gluc 135 3.2 21 0.56 Mg PO4 Ca 1.9 N/A 7.8 (1.6-2.8) (2.5-4.8) (8.4-10) PHYSICAL EXAM: General: NAD. HEENT: EOMI. Conjunctiva clear. No scleral icterus. Heart: RRR. No murmurs or rub. Lungs: CTAB. Abdomen: Soft. Non-tender. Non-distended. Extremities: No LE edema. Neuro: No focal deficits. A&Ox2 Skin: Warm & dry. 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 2. Chronic ancillary findings as above. CONSULTS: IP GASTROENTEROLOGY CONSULT ASSESSMENT AND PLAN: Ely Hurtado is a 84 year old female with a history of anemia, rectal bleeding, dvt history, auerysm of hepatic artery admitted with anemia and LGIB work up PROBLEM LIST: Neuro AxOx2 at [facility] per OSH notes. Cardiology -No Acute concerns at this time Pulmonary No Acute concerns Gastrointestinal #Rectal Bleeding #Hepatic Aneurysm/pseudoaneurysm -CBC OSH 6 ->9 admission s/p 2u pRBC at OSH -Lactic Acid on admission 1 from 2 at OSH -PT/NR 13.7 and 1.22 -CT notable for hepatic aneurysm that needs IR consult, formal images not sent from OSH. -CTA abdomen showed 4.1 cm saccular aneurysm, -s/p colonoscopy 01/27, show colonic and rectal polyps and hemorrhoids. Recommend f/u pathology and repeat colo if abn path and hemorrhoid care. Plan -Daily CBC -IV Protonix 40 mg daily. -IR (for vascular intervention) Infectious Disease No acute concern Renal #Urinary retention -Patient state they don't want to urinate and required straight cath which gave 1L of urine output -Gamez inserted Hem/Onc #Rectal Bleeding #Anemia #Hypocalcemia #Hypokalemia -k 3.2 this AM Plan: -Holding home Eliquis, last dose 01/23 -Restarted on home Statin -Trend hgb, Hgb > 7, transfuse PRN -Given 40 mg IV K Endocrine No acute Concerns -Elevated total and direct bili 2.5/0.42 -Evidence of cholestasis on OSH imaging but no abdominal pain described by patient -CTM MSK/Rheum No Acute cncern -Excoriations noted on groin and buttocks -Nystatin and triad ordered Feeding Regular Analgesia - Sedation N/A VTE ppx SCD HOB Eval 30 Degrees Ulcer ppx Protonix Glycemic Control Target 140-180 SBT N/A Bowel Regimen Senna Indwelling Gamez Drug De-Escalation - Dispo: SNF Code Status: Full Code This plan is preliminary until finalized by an attending physician. Nelda James DO PGY-2 Family Medicine Stepdown Unit Pager [phone] 01/27/25 1500 Assessment and Discharge Planning Evaluation READMISSION LESS THAN 30 DAYS No READMISSION RISK SCORE IS Rising Risk INTERVIEWED Chart Review COGNITIVE STATUS Oriented FUNCTIONAL STATUS PRIOR TO ADMISSION Ambulates with medical office asst (cane, walker, etc.);Independent with ADL's HAS ADVANCE DIRECTIVE ON FILE No LIVING SITUATION Assisted Living/LTC CONNECTED TO MENTAL HEALTH SERVICES Unknown CONNECTED TO COMMUNITY SERVICES Unknown CONNECTED TO SUBSTANCE ABUSE SERVICES Unknown ADMISSION INSURANCE Medicare TRANSPORTATION TO AND/OR FROM APPOINTMENTS Family/Friend Provides Ride HOME OXYGEN No HOME HEALTH CARE PRIOR TO ADMISSION No DIALYSIS No DISCUSSSED WHAT HELP PATIENT WOULD NEED Yes SDOH Completed? Yes SDOH Risks Addressed - Do Not complete until all required aggarwal are completed Yes DISCHARGE DISPOSITION STILL A PT CM conducted a chart review and it appears that the patient is a resident a [facility] ([phone]). CM left a message to inquire if Facility has SNF capabilities. CM to notifiy the facility if the patient is medically able to return. PT/OT recommend that pt go to a SNF when pt is medically ready to discharge. CM to follow up. ADDENDUM: CM received a return phone call from [facility] staff that states that they do have a SNF side to their facility. However they are not in [place] and they do not know the process of how to discharge the patient to SNF side instead of [place]. CM was give contact phone number of [phone]. L[facility]ELL to follow up on 01/28/2025 during business hours. Breanna Wilder MSN, RN Inpatient [employer]ster [employer] 7E/7W Cell [phone] Desk [phone] Images from the original note were not included. Division of Pulmonary, Critical Care, and Sleep Medicine Stepdown Unit ATTENDING NOTE Code Status: Full Code DPOAHC/NOK: Aliza Hurtado (Son) Admission Date and Time: 01/25/2025 12:28 PM LOS: 2 days I saw and evaluated Ms. Ely Hurtado. I personally obtained javed and critical portions of the history and physical examination. I reviewed the resident's documentation and discussed the patient with the residents and the MSDU team. I agree with the resident's medical decision making as documented in their note. The patient has a high probability of sudden, clinically significant deterioration, which requires the highest level of physician preparedness to intervene urgently. I managed/supervised life or organ supporting interventions that required frequent physician assessment. Time I spent with family or surrogate(s) is included only if the patient was incapable of providing the necessary information or participating in medical decision making. Time devoted to teaching and to any procedures I billed separately is not included. I spent 31 critical care minutes of my full attention on this patient's management and direct patient care. Of note, medical issues requiring critical care management include: ACUTE BLOOD LOSS ANEMIA . SUBJECTIVE: Received 2L of bowel prep overnight. Clear liquid output today. Denies abdominal pain. Social Connections: Not on file Tobacco Use History[1] OBJECTIVE: Allergy: Patient has no allergy information on record. Patient Vitals for the past 24 hrs: BP Temp Temp src Pulse Resp SpO2 O2 Device 01/27/25 1000 123/76 -- -- 88 13 100 % Room air 01/27/25 0800 131/75 98.2 F (36.8 C) Oral 94 22 100 % Room air 01/27/25 0600 118/66 -- -- 75 14 97 % Room air 01/27/25 0500 -- -- -- -- -- -- Room air 01/27/25 0400 110/77 98.2 F (36.8 C) Oral 79 33 95 % Room air 01/27/25 0200 118/72 -- -- 82 45 96 % Room air 01/27/25 0100 -- -- -- -- -- -- Room air 01/27/25 0000 133/70 98 F (36.7 C) Oral 87 21 97 % Room air 01/26/252200 -- -- -- 91 27 98 % -- 01/26/25 2200 147/89 -- -- 91 23 97 % Room air 01/26/25 2101 -- -- -- 92 17 98 % -- 01/26/252000 -- -- -- 92 18 99 % -- 01/26/25 2000 139/88 -- -- 91 20 98 % Room air 01/26/25 1901 -- -- -- 92 13 -- -- 01/26/25 1801 -- -- -- 94 17 -- -- 01/26/25 1800 143/86 -- -- 92 22 99 % Room air 01/26/25 1701 -- -- -- 93 22 96 % -- 01/26/25 1601 -- -- -- 96 23 -- -- 01/26/25 1600 115/81 98.1 F (36.7 C) Oral 93 26 100 % Room air 01/26/25 1525 -- -- -- -- -- -- Room air 01/26/25 1501 -- -- -- 96 20 95 % -- 01/26/25 1400 137/82 -- -- 95 19 98 % Room air 01/26/25 1230 -- -- -- -- -- -- Room air 01/26/25 1200 134/82 98.1 F (36.7 C) Oral 90 24 99 % Room air Fingerstick Glucose None Intake/Output Summary (Last 24 hours) at 01/27/2025 1111 Last data filed at 01/27/2025 1000 Gross per 24 hour Intake 460 ml Output 1850 ml Net -1390 ml RASS: 0 LABS: Basic Metabolic Panel 01/27/2025 01/26/2025 01/25/2025 5:10 AM 5:04 AM 1:22 PM Na 145 141 142 K 3.2 3.7 3.8 Cl 112 110 108 CO2 23 23 26 Gap 13 12 12 Glu 68 85 98 BUN 5 9 13 Cr 0.54 0.58 0.61 Ca 7.8 7.9 8.3 Mg 2.0 1.9 2.0 Date of last serum creatinine: 01/27/2025 Estimated Creatinine Clearance: 77.09 mL/min (A) (by C-G formula based on SCr of 0.54 mg/dL (L)). Estimated Glomerular Filtration Rate: 92.1 mL/min/1.73m2 (A) (by CKD-EPI based on SCr of 0.54 mg/dL (L)). CBC/PT/INR 01/27/2025 01/26/2025 01/26/2025 01/25/2025 01/25/2025 01/25/2025 5:10 AM 2:49 PM 5:04 AM 8:14 PM 1:58 PM 1:22 PM WBC 7.7 7.9 8.9 10.2 -- 7.8 RBC 3.40 3.65 3.67 4.11 -- 3.86 Hgb 7.9 8.4 8.7 9.8 -- 9.0 Hct 24.6 26.2 26.8 29.7 -- 28.2 MCV 72 72 73 72 -- 73 RDW 20.0 19.8 20.0 19.8 -- 19.7 Plt 189 197 189 221 -- 189 INR -- -- -- -- 1.22 -- WBC/Diff 01/27/2025 01/26/2025 5:10 AM 2:49 PM Neutro% 75.5 78.6 Lymph% 10.8 9.9 Eos% 1.3 0.7 Hepatic/Biliary/Pancreas 01/25/2025 1:22 PM T Prot 5.1 Albumin 3.4 D Bili 0.42 T Bili 2.5 Alk Phos 52 ALT 7 AST 15 ASSESSMENT & PLAN: Painless hematochezia Colonoscopy today [address] large bore IVs in place Acute blood loss anemia secondary to 1 Goal Hgb > 7 Dee Dee Nava MD, MPH Division of Pulmonary, Critical Care, & Sleep Medicine [facility] PIN [phone] [1] Social History Tobacco Use Smoking Status Not on file Smokeless Tobacco Not on file Images from the original note were not included. 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 Patient who currently resides at [facility] ([facility]) where she was found to have significant bright red blood in her stool following multiple episodes of diarrhea on the morning of 01/24. They were transferred to the [facility] ED later that day for further evaluation. On presentation BP was 146/83, HR 104. CBC notable for drop og Hb from 11 3 months ago to 8.2. Repeated CBC showed a further drop of Hgb to 6.2. 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 Patient admitted directly to SDU and transfused w/ 2 units of pRBC prior to transfer. On presentation to the floors, patient is vitally stable and in no acute distress. Reported that they had a one day episode of bloody stools Axox2 at baseline and during admission. Patient does not endorse acute issues and has not had a BM since arriving. Not endorsing fever, chills, SOB, n/v, lightheadedness or headaches. 01/27 patient bowel prepped for scope by GI this afternoon SUBJECTIVE: INTERVAL UPDATES: CHANTAL Refused colnoscopy, GI got consent from son HgB 7.9 today SUBJECTIVE: Patient seen and examined at bedside. Does not remember if they had ay bloody bm. Asking about leaving to have breakfast No acute issues on their part. OBJECTIVE: Objective Temperature: [98 F (36.7 C)-98.2 F (36.8 C)] 98.2 F (36.8 C) Heart Rate: [75-101] 75 Respiratory Rate: [13-45] 14 BP: (108-147)/(66-89) 118/66 O2 Device: Room air at 97 % Intake/Output Summary (Last 24 hours) at 01/27/2025 0700 Last data filed at 01/27/2025 0500 Gross per 24 hour Intake 885 ml Output 2150 ml Net -1265 ml LABS: CBC: (01/27/2025: 5:10 AM) WBC 7.7 \\ Hgb 7.9 / Plt 189 / Hct 24.6 \\ Results Review BMP: (01/27/2025: 5:10 AM) 145 112 5 Gluc 68 3.2 23 0.54 Mg PO4 Ca 2.0 N/A 7.8 (1.6-2.8) (2.5-4.8) (8.4-10) PHYSICAL EXAM: General: NAD. HEENT: EOMI. Conjunctiva clear. No scleral icterus. Heart: RRR. No murmurs or rub. Lungs: CTAB. Abdomen: Soft. Non-tender. Non-distended. Extremities: No LE edema. Neuro: No focal deficits. A&Ox2 Skin: Warm & dry. 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 2. Chronic ancillary findings as above. CONSULTS: IP GASTROENTEROLOGY CONSULT ASSESSMENT AND PLAN: Ely Hurtado is a 84 year old female with a history of anemia, rectal bleeding, dvt history, auerysm of hepatic artery admitted with anemia and LGIB work up PROBLEM LIST: Neuro AxOx2 at [facility] per OSH notes. Cardiology -No Acute concerns at this time Pulmonary No Acute concerns Gastrointestinal #Rectal Bleeding #Hepatic Aneurysm/pseudoaneurysm -CBC OSH 6 ->9 admission s/p 2u pRBC at OSH -Lactic Acid on admission 1 from 2 at OSH -PT/NR 13.7 and 1.22 -CT notable for hepatic aneurysm that needs IR consult, formal images not sent from OSH. -CTA abdomen showed 4.1 cm saccular aneurysm, Plan -Daily CBC -IV Protonix 40 mg daily. -No acute intervention at this time per IR Infectious Disease No acute concern Renal #Urinary retention -Patient state they don't want to urinate and required straight cath which gave 1L of urine output -Gamez inserted Hem/Onc #Rectal Bleeding #Anemia #Hypocalcemia #Hypokalemia -k 3.2 this AM -GI plan to scope this afternoon Plan: -Holding home Eliquis, last dose 01/23 -Restarted on home Statin -Trend hgb, Hgb > 7, transfuse PRN -Given 20 mg IV K Endocrine No acute Concerns -Elevated total and direct bili 2.5/0.42 -Evidence of cholestasis on OSH imaging but no abdominal pain described by patient -CTM MSK/Rheum No Acute cncern -Excoriations noted on groin and buttocks -Nystatin and triad ordered Feeding NPO Analgesia - Sedation N/A VTE ppx SCD HOB Eval 30 Degrees Ulcer ppx Protonix Glycemic Control Target 140-180 SBT N/A Bowel Regimen Senna Indwelling Gamez Drug De-Escalation - Dispo: SNF Code Status: Full Code This plan is preliminary until finalized by an attending physician. Wilbert Pérez MD PGY-1 Internal Medicine Stepdown Unit Pager [phone] Images from the original note were not included. Division of Pulmonary, Critical Care, and Sleep Medicine Stepdown Unit ATTENDING NOTE Code Status: Full Code DPOAHC/NOK: Aliza Hurtado (Son) Admission Date and Time: 01/25/2025 12:28 PM LOS: 1 day I saw and evaluated Ms. Ely Hurtado. I personally obtained javed and critical portions of the history and physical examination. I reviewed the resident's documentation and discussed the patient with the residents and the MSDU team. I agree with the resident's medical decision making as documented in their note. The patient has a high probability of sudden, clinically significant deterioration, which requires the highest level of physician preparedness to intervene urgently. I managed/supervised life or organ supporting interventions that required frequent physician assessment. Time I spent with family or surrogate(s) is included only if the patient was incapable of providing the necessary information or participating in medical decision making. Time devoted to teaching and to any procedures I billed separately is not included. I spent 31 critical care minutes of my full attention on this patient's management and direct patient care. Of note, medical issues requiring critical care management include: ACUTE BLOOD LOSS ANEMIA . SUBJECTIVE: 84 yo woman with prior history of DVT (xarelto), ? Dementia (A&O x 2) with hematochezia x 1 day. Presented to [facility]. Hgb decreased to 6.2. Received 2U PRBCs. 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 Continued painless hematochezia overnight. Given bowel prep with colyte last night and dulcolax this AM. Social Connections: Not on file Tobacco Use History[1] OBJECTIVE: Allergy: Patient has no allergy information on record. Patient Vitals for the past 24 hrs: BP Temp Temp src Pulse Resp SpO2 O2 Device 01/26/25 1002 121/77 -- -- 89 17 97 % Room air 01/26/25 0801 137/89 -- -- 101 28 86 % Room air 01/26/25 0730 108/66 -- -- 89 14 95 % Room air 01/26/25 0600 109/59 -- -- 77 24 98 % Room air 01/26/25 0400 112/60 98.2 F (36.8 C) -- 80 25 96 % Room air 01/26/25 0200 117/71 -- -- 85 25 97 % Room air 01/26/25 0000 131/81 99.2 F (37.3 C) Oral 82 27 97 % Room air 01/25/25 2211 128/79 -- -- 85 19 100 % Room air 01/25/252006 130/95 -- -- 93 16 97 % Room air 01/25/25 2000 -- 99 F (37.2 C) Oral -- -- -- -- 01/25/25 1800 127/81 -- -- 86 26 94 % -- 01/25/25 1700 104/68 -- -- 81 23 95 % -- 01/25/25 1630 118/70 -- -- 87 32 96 % -- 01/25/25 1600 118/70 97.5 F (36.4 C) Oral 77 13 100 % Room air 01/25/25 1515 -- -- -- 86 20 94 % Room air 01/25/25 1500 -- -- -- 83 31 95 % -- 01/25/25 1400 107/91 -- -- 92 18 97 % Room air 01/25/25 1300 -- -- -- 89 21 97 % -- 01/25/25 1205 116/82 97.8 F (36.6 C) Oral 87 22 98 % Room air Intake/Output Summary (Last 24 hours) at 01/26/2025 1142 Last data filed at 01/26/2025 1024 Gross per 24 hour Intake 2175 ml Output 1950 ml Net 225 ml RASS: 0 LABS: Basic Metabolic Panel 01/26/2025 01/25/2025 5:04 AM 1:22 PM Na 141 142 K 3.7 3.8 Cl 110 108 CO2 23 26 Gap 12 12 Glu 85 98 BUN 9 13 Cr 0.58 0.61 Ca 7.9 8.3 Mg 1.9 2.0 Date of last serum creatinine: 01/26/2025 Estimated Creatinine Clearance: 71.07 mL/min (A) (by C-G formula based on SCr of 0.58 mg/dL (L)). Estimated Glomerular Filtration Rate: 90.5 mL/min/1.73m2 (A) (by CKD-EPI based on SCr of 0.58 mg/dL (L)). CBC/PT/INR 01/26/2025 01/25/2025 01/25/2025 01/25/2025 5:04 AM 8:14 PM 1:58 PM 1:22 PM WBC 8.9 10.2 -- 7.8 RBC 3.67 4.11 -- 3.86 Hgb 8.7 9.8 -- 9.0 Hct 26.8 29.7 -- 28.2 MCV 73 72 -- 73 RDW 20.0 19.8 -- 19.7 Plt 189 221 -- 189 INR -- -- 1.22 -- WBC/Diff 01/26/2025 01/25/2025 5:04 AM 1:22 PM Neutro% 70.7 71.3 Lymph% 14.8 15.4 Eos% 1.4 0.8 Hepatic/Biliary/Pancreas 01/25/2025 1:22 PM T Prot 5.1 Albumin 3.4 D Bili 0.42 T Bili 2.5 Alk Phos 52 ALT 7 AST 15 ASSESSMENT & PLAN: Painless Hematochezia No clear source on CTA Colonoscopy Complete bowel preparation [address] large bore IVs in place Anemia secondary to 1. Goal Hgb > 7 Dee Dee Nava MD, MPH Division of Pulmonary, Critical Care, & Sleep Medicine [facility] PIN [phone] [1] Social History Tobacco Use Smoking Status Not on file Smokeless Tobacco Not on file Images from the original note were not included. .[facility] Step Down Unit - Progress Note Patient: Ely Hurtado : 1940 Sex: female Room: [place] [address] Admission: 01/25/2025 Today: 01/26/2025 (Length of stay: 1 day(s)) HOSPITAL COURSE: Ely Hurtado is a 84 year old female admitted on 01/25/2025 with a PMH of anemia, rectal bleeding, history ov DVT, 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 Patient who currently resides at [facility] ([facility]) where she was found to have significant bright red blood in her stool following multiple episodes of diarrhea on the morning of 01/24. They were transferred to the [facility] ED later that day for further evaluation. On presentation BP was 146/83, HR 104. CBC notable for drop og Hb from 11 3 months ago to 8.2. Repeated CBC showed a further drop of Hgb to 6.2. 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 Patient admitted directly to SDU and transfused w/ 2 units of pRBC prior to transfer. On presentation to the floors, patient is vitally stable and in no acute distress. Reported that they had a one day episode of bloody stools Axox2 at baseline and during admission. Patient does not endorse acute issues and has not had a BM since arriving. Not endorsing fever, chills, SOB, n/v, lightheadedness or headaches. 01/26 patient bowel prepped for scope by GI this afternoon SUBJECTIVE: INTERVAL UPDATES: NAEON SUBJECTIVE: Patient seen and examined at bedside. Does not remember if they had ay blody bam. Asking if they can leave today. No acute issues on their part. OBJECTIVE: Objective Temperature: [97.5 F (36.4 C)-99.2 F (37.3 C)] 98.2 F (36.8 C) Heart Rate: [77-93] 77 Respiratory Rate: [13-32] 24 BP: (99-131)/(59-95) 109/59 O2 Device: Room air at 98 % Intake/Output Summary (Last 24 hours) at 01/26/2025 0649 Last data filed at 01/25/2025 1900 Gross per 24 hour Intake 1750 ml Output 1000 ml Net 750 ml LABS: CBC: (01/26/2025: 5:04 AM) WBC 8.9 \\ Hgb 8.7 / Plt 189 / Hct 26.8 \\ Results Review BMP: (01/26/2025: 5:04 AM) 141 110 9 Gluc 85 3.7 23 0.58 Mg PO4 Ca 1.9 N/A 7.9 (1.6-2.8) (2.5-4.8) (8.4-10) PHYSICAL EXAM: General: NAD. HEENT: EOMI. Conjunctiva clear. No scleral icterus. Heart: RRR. No murmurs or rub. Lungs: CTAB. Abdomen: Soft. Non-tender. Non-distended. Extremities: No LE edema. Neuro: No focal deficits. A&Ox2 Skin: Warm & dry. 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 2. Chronic ancillary findings as above. CONSULTS: IP GASTROENTEROLOGY CONSULT ASSESSMENT AND PLAN: Ely Hurtado is a 84 year old female with a history of anemia, rectal bleeding, dvt history, auerysm of hepatic artery admitted with anemia and LGIB work up PROBLEM LIST: Neuro AxOx2 at [facility] per OSH notes. Cardiology -No Acute concerns at this time Pulmonary No Acute concerns Gastrointestinal #Rectal Bleeding #Hepatic Aneurysm/pseudoaneurysm -CBC OSH 6 ->9 admission s/p 2u pRBC at OSH -Lactic Acid on admission 1 from 2 at OSH -PT/NR 13.7 and 1.22 -CT notable for hepatic aneurysm that needs IR consult, formal images not sent from OSH. -CTA abdomen showed 4.1 cm saccular aneurysm, Plan -Daily CBC -IV Protonix 40 mg daily. -No acute intervention at this time per IR Infectious Disease No acute concern Renal #Urinary retention -Patient state they don't want to urinate and required straight cath which gave 1L of urine output -Gamez inserted Hem/Onc #Rectal Bleeding #Anemia #Hypocalcemia -GI plan to scope this afternoon Plan: -Holding home Eliquis, last dose 01/23 -Restarted on home Statin -Trend hgb, Hgb > 7, transfuse PRN Endocrine No acute Concerns -Elevated total and direct bili 2.5/0.42 -Evidence of cholestasis on OSH imaging but no abdominal pain described by patient -CTM MSK/Rheum No Acute cncern -Excoriations noted on groin and buttocks -Nystatin and triad ordered Feeding NPO Analgesia - Sedation N/A VTE ppx SCD HOB Eval 30 Degrees Ulcer ppx Protonix Glycemic Control Target 140-180 SBT N/A Bowel Regimen Senna Indwelling Gamez Drug De-Escalation - Dispo: SNF Code Status: Full Code This plan is preliminary until finalized by an attending physician. Wilbert Pérez MD PGY-1 Internal Medicine Stepdown Unit Pager [phone] documented in this encounter [facility] 01-29-2025 Evaluation + Plan note Associated Problem(s): Rectal bleeding --trend CBC daily, transfuse as need, Hb goal >7. s/p 2u pRBCs. --GI consulted s/p colonoscopy 01/27/2025 with a rectal polyp biopsy to rule out malignancy; follow up pathology --will need outpatient repeat colonoscopy for polypectomy --internal hemorrhoids noted, recommend routine hemorrhoid care --pharmacy dispense reports has been on Eliquis since 02/11/2024 --Eliquis currently held since 01/23/2025, unknown nature of DVT if lifelong anticoagulation is advised will need to restart Eliquis [facility] 01-29-2025 Evaluation + Plan note Associated Problem(s): Acute blood loss anemia (ABLA) --trend CBC daily, transfuse as need, Hb goal >7. s/p 2u pRBCs. --GI consulted s/p colonoscopy 01/27/2025 with a rectal polyp biopsy to rule out malignancy; follow up pathology --will need outpatient repeat colonoscopy for polypectomy --internal hemorrhoids noted, recommend routine hemorrhoid care --pharmacy dispense reports has been on Eliquis since 02/11/2024 --Eliquis currently held since 01/23/2025, unknown nature of DVT if lifelong anticoagulation is advised will need to restart Eliquis [facility] 01-29-2025 Evaluation + Plan note Associated Problem(s): History of DVT (deep vein thrombosis) --trend CBC daily, transfuse as need, Hb goal >7. s/p 2u pRBCs. --GI consulted s/p colonoscopy 01/27/2025 with a rectal polyp biopsy to rule out malignancy; follow up pathology --will need outpatient repeat colonoscopy for polypectomy --internal hemorrhoids noted, recommend routine hemorrhoid care --pharmacy dispense reports has been on Eliquis since 02/11/2024 --Eliquis currently held since 01/23/2025, unknown nature of DVT if lifelong anticoagulation is advised will need to restart Eliquis [facility] 01-29-2025 Evaluation + Plan note Associated Problem(s): Chronic anticoagulation --trend CBC daily, transfuse as need, Hb goal >7. s/p 2u pRBCs. --GI consulted s/p colonoscopy 01/27/2025 with a rectal polyp biopsy to rule out malignancy; follow up pathology --will need outpatient repeat colonoscopy for polypectomy --internal hemorrhoids noted, recommend routine hemorrhoid care --pharmacy dispense reports has been on Eliquis since 02/11/2024 --Eliquis currently held since 01/23/2025, unknown nature of DVT if lifelong anticoagulation is advised will need to restart Eliquis [facility] 01-29-2025 Evaluation + Plan note Associated Problem(s): 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 Whittaker or until Eliquis restarted. [facility] 01-29-2025 Evaluation + Plan note Associated Problem(s): Hyperlipidemia, unspecified --chronic. stable. continue home statin [facility] 01-29-2025 Note Hospital Medicine Pr ogress Note Ely Hurtado Age [age] year old female [id number] Admitted 01/25/2025 12:28 PM Hospital Day: 5 HOSPITAL COURSE: Ely Hurtado is a 84 year old female admitted on 01/25/2025 with a history of anemia, rectal bleeding, history of DVT (Eliquis), aneurysm of hepatic artery transferred from [facility] for urgent vascular intervention. Patient with acute anemia requiring 2 units of PRBC's prior to transfer. While in medical step-down unit patient underwent colonoscopy with polyp biopsy on 01/27/2025. Patient underwent proper hepatic coil embolization on 01/28/2025 for saccular aneurysm noted at outside hospital. SUBJECTIVE: Ely Hurtado reports feeling okay. Denies any bloody or black stools. Reports tolerating diet without nausea or vomiting. Patient denies history of DVT or blood clot and does not remember taking Eliquis, apixaban, or other blood thinners. OBJECTIVE: BP 136/75 (BP Location: left arm) Comment: Pt recently ambulating from [facility] Pulse 107 Temp 98.4 ???F (36.9 ???C) (Oral) Resp 20 Ht 5' 9" (1.753 m) Wt 139 lb 15.9 oz (63.5 kg) SpO2 98% BMI 20.67 kg/m??? Physical Exam General: NAD. Lying in bed. HEENT: Conjunctiva clear. No scleral icterus. Heart: RRR. No murmurs or rub. Lungs: Lungs clear to auscultation. Good air entry bilaterally. No wheezes. Abdomen: Soft. Non-tender. Non-distended. Extremities: No pitting LE edema Neuro: Alert. No facial asymmetry. Moves all extremities. Skin: Warm AND dry. Psych: Calm AND cooperative. Data (Review and Interpretation of Data (including Tele, EKG, Labs, Imaging): Labwork CBC: no leukocytosis, stable microcytic anemia 7.8 BMP: no ROSARIO or significant electrolyte disturbance Imaging CTA abd with 4.1 cm saccular hepatic artery aneurysm EKG is notable for NSR, 82bpm. QTC 509. Assessment AND Plan Rectal bleeding Acute blood loss anemia (ABLA) History of DVT (deep vein thrombosis) Chronic anticoagulation --trend CBC daily, transfuse as need, Hb goal >7. s/p 2u pRBCs. 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 Whittaker or until Eliquis restarted. Hyperlipidemia, unspecified --chronic. stable. continue home statin Diet/Fluids: Regular DVT Prophylaxis: SCDs CODE: Full Code COMMUNICATION: The patient's plan of care was discussed with the Nurse and Patient. All questions and concerns addressed. NOK: Primary Emergency Contact: aliza hurtado, Aliza Hancock MD [facility] 01-29-2025 Note CRITICAL CARE ATTEND ING PROGRESS NOTE (50) 30 minutes of time was spent with my full attention devoted to this patient's managment. ANYTIME SPENT IN FAMILY MEETINGS TO MAKE MEDICAL DECISIONS OR PERFORMING PROCEDURES DOCUMENTED ELSEWHERE IS NOT INCLUDED IN THE ABOVE DOCUMENTED TIME. I have reviewed the residents documentation and after personally interviewing, examining and reviewing records/data/ radiographs and tracings, I agree with history, physical examination, data assessment, diagnoses and plan as outlined except where differences are stated below. MEDICAL DECISION MAKING (arrived at with personal review of labs, images and tracings) PROBLEMS DIAGNOSTICS THERAPEUTICS #1LGIB due to rectal polyp vs Hepatic artery anerysm Serial CBC Await colon biopsy S/P embolization of Hepatic A. Aneurysm Hemorrhoidal care #2 [employer] stable Neurochecks #3CV Resolved hypotension VS AND ECG monitoring #4Respiratory hypoxemia Bibasilar atelectasis SpO2 monitoring IS #5Volume/Elimination/Nutr. Resolved Hypovolemia Hypokalemia NAG metabolic Acidosis I AND Os +CMP Q6-12hr Urine and stool output GOAL I>O 0-1L/24h IVF none D5LR@50-75ml/h KCl PO #6 Infection #7 Hematology Anemia coagulation CBC Q 12-24hr and cultures Antibiotics none #8Sedation/Analgesia #9Prophylaxis #10 Catheters/tubes/lines CVC/gamez/GT/drains RASS CAMICU pain scale Tylenol protonix HISTORY This patient is a 84 year old female person with a past medical history significant for good health sent in from out [facility] SNF with BRBPR after CT abdomen showed a 4.1 cm hepatic artery aneurysm requiring IR embolization not available at OSH. HPI: Antecedent history and/or hospital course revealed tx 2 u PRBC Since the last visit the patient's complaint of hypoxemia hypotension /bleeding has been treated with:IVF/oxygensupplement/blood PMH:reviewed and found as previous with no new additional data FH: as prior note described SH: as prior notation described ROS: unchanged from admission documentation OVERNIGHT No evidence of ongoing bleed Stable hct Mild discomfort with abdominal palpation and at IR access site PHYSICAL EXAM Blood pressure 110/67, pulse 70, temperature 98.2 ???F (36.8 ???C), temperature source Axillary, resp. rate 14, height 5' 9" (1.753 m), weight 139 lb 15.9 oz (63.5 kg), SpO2 94%. Intake/Output Summary (Last 24 hours) at 01/28/2025 1921 Last data filed at 01/28/2025 1525 Gross per 24 hour Intake 590 ml Output 680 ml Net -90 ml Total for stay +0 L On 30L TBW weight stable Catheters/Lines/tubes: PIV and NO Gamez catheter Ventilator / oxygen supplement = FiO2=0-3LPM General: no apparent distress HEENT: pupils 3mm mucus membranes : Moist Neck: trach midline Chest: normal excursion normal air exchange no crackles CV: pulse full S1 S2 RRR gallop(-) SEMurmur + GI: scaphoid non-tender Musculoskeletal: Posture Upright Integumentary: Turgor: Dry Psych: Calm Neurologic: alert sedated and does follow commands and withdraws 4/4 extremities LAB Per EMR with notable changes including: HEMOGRAM/COAGULATION hct= 30-> 25% wbc= 7.8 platelets = 264 -> 174 INR = nl aPTT = ? CHEMISTRY Na= 142/3.4/112 HCO3= 21-> 24 ag = 8/11 BUN = 5 creat = 0.5 glucose = 105 ca = albumin=3.4 lactate = 1.6 EKG = SR@82 QTC= 410msec low volts Cultures reviewed notable changes include None Radiography reviewed and notable changes include atelectasis both bases CODE STATUS: FULL NOK is son aliza and family unavailable Stable for transfer to sheets Issues Follow up polyp pathology Monitor BM and hgb Assure voiding after gamez out PO PPI Dispo back to SNF Dr. Jose Rafael Desouza [id number] bp#[id number] [facility] 01-29-2025 Progress note Formatting of t his note is different from the original. Images from the original note were not included. . TRANSFER NOTE Patient: Ms. Ely Hurtado, an 84 year old (Full Code) Room: [place] [address] 1940 FROM Step down unit TO Medicine team 6 Admit Date: 01/25/2025 Today's Date: 01/29/2025 Length of stay: 4 day(s) HOSPITAL COURSE: Ely Hurtado is a 84 year old female admitted on 01/25/2025 with a PMH of anemia, rectal bleeding, history ov DVT, aneurysm of hepatic artery transferred from OSH for urgent vascular intervention and anemia. Patient who currently resides at SNF ([facility]) where she was found to have significant bright red blood in her stool following multiple episodes of diarrhea on the morning of 01/24. They were transferred to the [facility] ED later that day for further evaluation. On presentation BP was 146/83, HR 104. CBC notable for drop og Hb from 11 3 months ago to 8.2. Repeated CBC showed a further drop of Hgb to 6.2. 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 Patient admitted directly to SDU and transfused w/ 2 units of pRBC prior to transfer. On presentation to the floors, patient is vitally stable and in no acute distress. Required straight catheterization and gamez insertion for urinary retention 01/28 s/p Colonoscopy showed one rectal polyp (biopsied) and Int hemorrhoids likely cause of BRBPR. Recommend repeat colo if abnormal path results and hemorrhoid care. Pt s/p IR guided coil embolization of hepatic artery aneurysm 01/28/2025. Recommend f/u angiography in 3 months, restarting aspirin for 3 months or until Eliquis restarted. 01/29 Gamez removed, for voiding trial. Pt's condition improving and she deems stable to be transferred to the general floors. TO DO: [] Daily CBC [] Protonix 40 mg PO daily [] Hemorrhoid care [] F/u pathology (polyp) if abnormal repeat Colonoscopy needed [] Per IR: can be on both aspirin and Eliquis whenever you decide to restart Eliquis, but if the risk of bleeding is too high just Eliquis would be also appropriate [] Atorvastatin 10 mg [] Bowel Regimen [] Aspirin 81 mg [] Voiding trial Disposition: [facility] facility Inpatient CONSULTS: IP GASTROENTEROLOGY CONSULT Outpatient f/u: PCP F/u angiography in 3 months PROBLEM LIST: Rectal bleed s/p colonoscopy 01/27 Hepatic artery aneurysm s/p coiling 01/28 Nelda James DO Family Medicine, PGY2 FM Pager: [phone] [facility] 01-29-2025 Note .[facility] Step Down Unit - Progress Note Patient: Ely Hurtado : 1940 Sex: female Room: [place] [address] Admission: 01/25/2025 Today: 01/29/2025 (Length of stay: 4 day(s)) HOSPITAL COURSE: Ely Hurtado is a 84 year old female admitted on 01/25/2025 with a PMH of anemia, rectal bleeding, history ov DVT, 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 Patient who currently resides at [facility] ([facility]) where she was found to have significant bright red blood in her stool following multiple episodes of diarrhea on the morning of 01/24. They were transferred to the [facility] ED later that day for further evaluation. On presentation BP was 146/83, HR 104. CBC notable for drop og Hb from 11 3 months ago to 8.2. Repeated CBC showed a further drop of Hgb to 6.2. 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 Patient admitted directly to SDU and transfused w/ 2 units of pRBC prior to transfer. On presentation to the floors, patient is vitally stable and in no acute distress. Required straight catheterization and gamez insertion for urinary retention 01/28 s/p Colonoscopy showed one rectal polyp (biopsied) and Int hemorrhoids likely cause of BRBPR. Recommend repeat colo if abnormal path results and hemorrhoid care. Pt s/p IR guided coil embolization of hepatic artery aneurysm 01/28/2025. Recommend f/u angiography in 3 months, restarting aspirin for 3 months or until Eliquis restarted. Pt's condition improving and she deems stable to be transferred to the general floors. SUBJECTIVE: INTERVAL UPDATES: NAEON HgB 7.8 today S/p IR guided coil embolization of hepatic artery aneurysm SUBJECTIVE: Patient seen and examined at bedside. Denies any concerns today and no BM since yesterday. No CP, SOB, dizziness or light headedness OBJECTIVE: Objective Temperature: [98 ???F (36.7 ???C)-98.3 ???F (36.8 ???C)] 98.3 ???F (36.8 ???C) Heart Rate: [51-88] 71 Respiratory Rate: [10-27] 23 BP: (95-135)/(60-84) 127/72 O2 Device: Room air at 91 % Intake/Output Summary (Last 24 hours) at 01/29/2025 0754 Last data filed at 01/29/2025 0600 Gross per 24 hour Intake 120 ml Output 905 ml Net -785 ml LABS: CBC: (01/29/2025: 12:40 AM) WBC 7.8 Hgb 7.8 / Plt 174 / Hct 24.9 Results Review BMP: (01/29/2025: 12:40 AM) 142 112 5 Gluc 105 3.4 24 0.52 Mg PO4 Ca 1.9 N/A 7.9 (1.6-2.8) (2.5-4.8) (8.4-10) PHYSICAL EXAM: General: NAD. HEENT: EOMI. Conjunctiva clear. No scleral icterus. Heart: RRR. No murmurs or rub. Lungs: CTAB. Abdomen: Soft. Non-tender. Non-distended. Extremities: No LE edema. Neuro: No focal deficits. A AND Ox2 Skin: Warm AND dry. 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 2. Chronic ancillary findings as above. CONSULTS: IP GASTROENTEROLOGY CONSULT ASSESSMENT AND PLAN: Ely Hurtado is a 84 year old female with a history of anemia, rectal bleeding, dvt history, auerysm of hepatic artery admitted with anemia and LGIB work up PROBLEM LIST: Neuro AxOx2 at [facility] per OSH notes. Cardiology -No Acute concerns at this time Pulmonary No Acute concerns Gastrointestinal #Rectal Bleeding #Hepatic Aneurysm/pseudoaneurysm -CBC OSH 6 ->9 admission s/p 2u pRBC at OSH -Lactic Acid on admission 1 from 2 at OSH -PT/NR 13.7 and 1.22 -CT notable for hepatic aneurysm that needs IR consult, formal images not sent from OSH. -CTA abdomen showed 4.1 cm saccular aneurysm, -s/p colonoscopy 01/27, show colonic and rectal polyps and hemorrhoids. Recommend f/u pathology and repeat colo if abn path and hemorrhoid care. Plan -Daily CBC -Protonix 40 mg PO daily. -S/p IR guided coil embolization IR recs Follow up angiography in 3 months Start 81mg aspirin as soon as possible per primary team, or until Eliquis restarted Infectious Disease No acute concern Renal #Urinary retention -Patient state they don't want to urinate and required straight cath which gave 1L of urine output -Gamez inserted..TOV Hem/Onc #Rectal Bleeding #Anemia #Hypocalcemia #Hypokalemia -k 3.4 this AM Plan: -Holding home Eliquis, last dose 01/23 -Restarted on home Statin -Trend hgb, Hgb > 7, transfuse PRN -Given PPI 40 mg PO - f/u pathology (polyp) may need to be removed on a later date Endocrine No acute Concerns -Elevated total and direct bili 2.5/0.42 -Evidence of cholestasi (more content not included)... [facility] 01-28-2025 Note POST-PROCEDURE NOTE Procedure: Left Femoral Artery approach Abdominal Angiogram with Proper Hepatic Artery Coil Embolization Pre-operative Diagnosis: Proper Hepatic Artery Aneurysm Post-operative Diagnosis: Proper Hepatic Artery Aneurysm Attending: Anselmo Whittaker MD Environmental Protection Forester: Bessy Acuña MD A TIME OUT was performed prior to the procedure using active communication to verify correct patient, procedure, and site: Yes Intraoperative Medications: Medications Medication Event Details Admin User Admin Time midazolam (VERSED) 2 MG/2ML injection Medication Given Dose: 0.5 mg; Route: Intravenous Kaitlin Wilder RN 01/28/2025 3:54 PM fentaNYL (SUBLIMAZE) 100 MCG/2ML injection Medication Given Dose: 50 mcg; Route: Intravenous Kaitlin Wilder RN 01/28/2025 3:54 PM iohexol (OMNIPAQUE) 350 MG/ML injection Medication Given Dose: 150 mL; Route: Intra-arterial; Scheduled Time: 5:09 PM Matthieu Anderson 01/28/2025 5:09 PM midazolam (VERSED) 2 MG/2ML injection Medication Given Dose: 0.5 mg; Route: Intravenous Kaitlin Wilder RN 01/28/2025 5:09 PM Complications: None Specimens: N/A Estimated Blood Loss: less than 10 cc Post Procedure Pain Ratin/10 Findings: Successful Coil Embolization of Proper Hepatic Artery Aneurysm. Aneurysm Secured. Plan: Follow up angiography in [address] Whittaker. Start 81mg aspirin as soon as possible per primary team, continue at least until follow up in [address] Whittaker or until Eliquis restarted. Please see procedure dictation in EPIC/PACS for full procedural details. Bessy Acuña MD Radiology [facility] 01-28-2025 Plan of care note Spoke with Pt's son and daughter in law. Aliza and Magi Updated them that she had her colonoscopy done and multiple polyps were seen. 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 And we will keep them updated as to what IR decides. Family verbalized understanding. Nelda James DO [facility] 01-28-2025 Progress note Formatting of t his note might be different from the original. SW/CM aware that patient meets criteria for SNF. Met with pt son via phone call discuss dispo. Patient open and agreeable to SNF placement. CM/SW provided pt son the quality and resource use measure data from available post-acute (PAC) providers, that best align with the patient's treatment goals and preferences from the medicare.gov compare site for SNF. [place] of Choice was provided to the patient/patient guest services representative. For SNF: RN/ to complete [employer]. Signature page placed on patient's chart for MD wong. [id number] initiated in [facility] Pt will require a pre-cert/LOC. SW/CM will follow up for choices. Referral sent to [facility] which is the sister SNF for [facility]. CM will continue to follow Breanna Wilder MSN, RN Inpatient Forester [employer] 7E/7W Cell [phone] Desk [phone] [facility] 01-28-2025 Note Pre-Procedure H AND P Date: 01/28/25 Patient name: Ely Hurtado HISTORY: Procedure: Image-guided, left femoral artery approach abdominal angiogram with possible intervention, possible moderate sedation Indication: Hepatic proper aneurysm HPI: Ely Hurtado is a 84 year old female with past medical history below here for abdominal angiogram with possible intervention. Patient presented for rectal bleeding. OSH imaging demonstrated a 4 cm aneurysm of hepatic proper for which IR was consulted. Medical History[1] There is no previous medical history on file. Substance Abuse History: Social History[2] History Drug Use Not on file Current Facility-Administered Medications Medication Dose Route Frequency Provider Last Rate Last Admin pantoprazole (PROTONIX) tablet 40 mg Oral Daily 30 min before breakfast Purighalla, Ketty, DO 40 mg at 01/28/25 0747 nystatin (MYCOSTATIN) 100,000 unit/g powder Topical 2x Daily Wilbert Pérez MD Given at 01/28/25 0747 hydrophilic wound dressing (TRIAD) external paste Apply externally 2x Daily Wilbert Pérez MD Given at 01/28/25 0747 atorvastatin (LIPITOR) tablet 10 mg Oral At Bedtime Wilbert Pérez MD 10 mg at 01/27/252121 polyethylene glycol (MIRALAX) 17 g packet 17 g Oral Daily Daniel Whitt MD 17 g at 01/28/25 0747 senna (SENOKOT) tablet 8.6 mg Oral Daily Daniel Whitt MD 8.6 mg at 01/28/25 0747 Allergies: Patient has no allergy information on record. PHYSICAL EXAM: Blood pressure 95/67, pulse 80, temperature 98.2 ???F (36.8 ???C), temperature source Axillary, resp. rate 20, height 5' 9" (1.753 m), weight 139 lb 15.9 oz (63.5 kg), SpO2 98%. Gen: AAOx4, GCS 15, no acute distress Lungs: On room air no increased work of breathing Heart: Regular rate and rhythm Labs Reviewed? Yes Recent Labs: Result for specified components in the past 45 days Component Date/Time Result Units Hemoglobin 01/28/2025 4:29 AM 7.4 g/dL Hematocrit 01/28/2025 4:29 AM 23.7 % Platelet 01/28/2025 4:29 AM 177 K/uL PTT --- not found Protime 01/28/2025 4:15 PM 11.8 sec INR 01/28/2025 4:15 PM 1.05 FXAUN --- not found ANTIFXALMWHE --- not found Creatinine 01/28/2025 4:29 AM 0.56 mg/dL Planned Sedation: Moderate Planned Sedation Medications: VERSED (midazolam) and fentanyl ASA Classification: Class I: Healthy individual with no systemic disease Mallampati Airway Assessment: Class III Only soft palate visible Patient or family history of adverse reactions involving sedation/anesthesia: No family history of adverse reaction PRE-PROCEDURE VERIFICATION: Site of Procedure: not applicable Site Marked pre-procedure: No Pre-Procedure Pain Ratin/10 Advanced Directives (Living will, health care power of family law attorney): none Patient Recent Code Status: Full Code Code Status For This Procedure: Full Code Patient does not have capacity to consent. Risk and benefits of the procedure were discussed with next of kin / POA. All questions answered. Lance Sandhu DO Radiology, PGY3 01/28/25 [1] No past medical history on file. 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 Patient who currently resides at [facility] ([facility]) where she was found to have significant bright red blood in her stool following multiple episodes of diarrhea on the morning of 01/24. They were transferred to the [facility] ED later that day for further evaluation. On presentation BP was 146/83, HR 104. CBC notable for drop og Hb from 11 3 months ago to 8.2. Repeated CBC showed a further drop of Hgb to 6.2. 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 Patient admitted directly to SDU and transfused w/ 2 units of pRBC prior to transfer. On presentation to the floors, patient is vitally stable and in no acute distress. Reported that they had a one day episode of bloody stools Axox2 at baseline and during admission. Patient does not endorse acute issues and has not had a BM since arriving. Not endorsing fever, chills, SOB, n/v, lightheadedness or headaches. 01/28 s/p Colonoscopy showed one rectal polyp (biopsied) and Int hemorrhoids likely cause of BRBPR. Recommend repeat colo if abnormal path results and hemorrhoid care. SUBJECTIVE: INTERVAL UPDATES: NAEON HgB 7.4 today SUBJECTIVE: Patient seen and examined at bedside. Denies any concerns today and no BM since yesterday. No CP, SOB, dizziness or light headedness OBJECTIVE: Objective Temperature: [97 ???F (36.1 ???C)-98.3 ???F (36.8 ???C)] 98.2 ???F (36.8 ???C) Heart Rate: [58-88] 69 Respiratory Rate: [8-27] 26 BP: (96-131)/(54-89) 106/65 O2 Device: Room air at 93 % Intake/Output Summary (Last 24 hours) at 01/28/2025 0807 Last data filed at 01/28/2025 0740 Gross per 24 hour Intake 590 ml Output 700 ml Net -110 ml LABS: CBC: (01/28/2025: 12:29 AM) WBC 8.0 Hgb 7.4 / Plt 177 / Hct 23.7 Results Review BMP: (01/28/2025: 12:29 AM) 142 113 7 Gluc 135 3.2 21 0.56 Mg PO4 Ca 1.9 N/A 7.8 (1.6-2.8) (2.5-4.8) (8.4-10) PHYSICAL EXAM: General: NAD. HEENT: EOMI. Conjunctiva clear. No scleral icterus. Heart: RRR. No murmurs or rub. Lungs: CTAB. Abdomen: Soft. Non-tender. Non-distended. Extremities: No LE edema. Neuro: No focal deficits. A AND Ox2 Skin: Warm AND dry. 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 2. Chronic ancillary findings as above. CONSULTS: IP GASTROENTEROLOGY CONSULT ASSESSMENT AND PLAN: Ely Hurtado is a 84 year old female with a history of anemia, rectal bleeding, dvt history, auerysm of hepatic artery admitted with anemia and LGIB work up PROBLEM LIST: Neuro AxOx2 at [facility] per OSH notes. Cardiology -No Acute concerns at this time Pulmonary No Acute concerns Gastrointestinal #Rectal Bleeding #Hepatic Aneurysm/pseudoaneurysm -CBC OSH 6 ->9 admission s/p 2u pRBC at OSH -Lactic Acid on admission 1 from 2 at OSH -PT/NR 13.7 and 1.22 -CT notable for hepatic aneurysm that needs IR consult, formal images not sent from OSH. -CTA abdomen showed 4.1 cm saccular aneurysm, -s/p colonoscopy 01/27, show colonic and rectal polyps and hemorrhoids. Recommend f/u pathology and repeat colo if abn path and hemorrhoid care. Plan -Daily CBC -IV Protonix 40 mg daily. -IR (for vascular intervention) Infectious Disease No acute concern Renal #Urinary retention -Patient state they don't want to urinate and required straight cath which gave 1L of urine output -Gamez inserted Hem/Onc #Rectal Bleeding #Anemia #Hypocalcemia #Hypokalemia -k 3.2 this AM Plan: -Holding home Eliquis, last dose 01/23 -Restarted on home Statin -Trend hgb, Hgb > 7, transfuse PRN -Given 40 mg IV K Endocrine No acute Concerns -Elevated total and direct bili 2.5/0.42 -Evidence of cholestasis on OSH imaging but no abdominal pain described by patient -CTM MSK/Konrad No Acute cncern -Excoriations noted on groin and buttocks -Nystatin and triad ordered Feeding Regular Analgesia - Sedation N/A VTE ppx SCD HOB Eval 30 Degrees Ulcer ppx Protonix Glycemic Control Target 140-180 SBT N/A Bowel Regimen Senna (more content not included)... [facility] 01-28-2025 Consult note Formatting of th is note is different from the original. Images from the original note were not included. 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 High risk nutrition diagnosis: No - no points Past Medical History: Medical History[1] Food Allergies: none Labs: LFT's (last 3 years, up to 8 values) 01/25/2025 1:22 PM T Prot 5.1 Albumin 3.4 D Bili 0.42 T Bili 2.5 Alk Phos 52 ALT 7 AST 15 Albumin: Greater than 3 - no points Skin Integrity: No pressure ulcers at this time - no points Fluid Accumulation: +1 - +2 Pitting edema - 2 points Diet Order: Regular % PO Intake: 75-100% Intake Difficulties: None - 0 points 5' 9" 139.99 lbs UBW: same per pt BODY MASS INDEX Kg Lbs BMI 01/25/2025 12:05 PM 61.3 kg 135 lb 2.3 oz 19.95 kg/m2 01/26/2025 6:00 AM 60.2 kg 132 lb 11.5 oz 19.59 kg/m2 01/27/2025 12:00 AM 60.8 kg 134 lb 0.6 oz 19.79 kg/m2 01/28/2025 7:00 AM 63.5 kg 139 lb 15.9 oz 20.66 kg/m2 BMI: 20.67 BMI Screening value: 18.5 to 20.9 - 0 points % Weight Loss: none Weight Loss Screening Value: Not significant - 0 points Education: No nutrition education indicated at this time. Comments: Pt tolerating diet well wihout any issues Number of Points: 2 Nutritional Plan of Care: Less than or equal to 6 points: At this time, patient is at low nutrition risk. DTR to provide routine follow up. Will continue to follow, Ava Hays, Day Care Worker Pager#[phone] Time spent on patient care: 15 minutes [1] No past medical history on file. [facility] 01-27-2025 Plan of care note I tried at least thrice to reach her son to update on her colonoscopy but with no avail. [facility] 01-27-2025 Note 01/27/25 1500 Assessment and Discharge Planning Evaluation READMISSION LESS THAN 30 DAYS No READMISSION RISK SCORE IS Rising Risk INTERVIEWED Chart Review COGNITIVE STATUS Oriented FUNCTIONAL STATUS PRIOR TO ADMISSION Ambulates with medical office asst (cane, walker, etc.);Independent with ADL's HAS ADVANCE DIRECTIVE ON FILE No LIVING SITUATION Assisted Living/LTC CONNECTED TO MENTAL HEALTH SERVICES Unknown CONNECTED TO COMMUNITY SERVICES Unknown CONNECTED TO SUBSTANCE ABUSE SERVICES Unknown ADMISSION INSURANCE Medicare TRANSPORTATION TO AND/OR FROM APPOINTMENTS Family/Friend Provides Ride HOME OXYGEN No HOME HEALTH CARE PRIOR TO ADMISSION No DIALYSIS No DISCUSSSED WHAT HELP PATIENT WOULD NEED Yes SDOH Completed? Yes SDOH Risks Addressed - Do Not complete until all required aggarwal are completed Yes DISCHARGE DISPOSITION STILL A PT CM conducted a chart review and it appears that the patient is a resident a [facility] ([phone]). CM left a message to inquire if Facility has SNF capabilities. CM to notifiy the facility if the patient is medically able to return. PT/OT recommend that pt go to a SNF when pt is medically ready to discharge. CM to follow up. ADDENDUM: CM received a return phone call from [facility] staff that states that they do have a SNF side to their facility. However they are not in [place] and they do not know the process of how to discharge the patient to SNF side instead of [place]. CM was give contact phone number of [phone]. CM to follow up on 01/28/2025 during business hours. Breanna Wilder MSN, RN Inpatient Forester [employer] 7E/7W Cell [phone] Desk [phone] [facility] [facility] 01-27-2025 Surgery Surgical operation note Ely Hurtado 84 year old Surgical Contact Serial Number: [id number] Location: ENDO ADD ON PROCEDURE Date: 01/27/2025 Emergency Room Rn: Juan Parikh MD Attending:Adrien Caraballo MD Procedure(s): COLONOSCOPY Sedation: Moderate: Oxygen 2L via nasal cannula, Fentanyl 75 mcg IV, Versed 3 mg IV Moderate sedation intraservice total time was 29 minutes. Moderate sedation provided by the same provider performing the procedure. Pre-Op Diagnosis Codes: * Rectal bleeding [K62.5] Indications: This is a 84 year old female here for colonoscopy to evaluate for rectal bleeding. No priorrior colonoscopies. Patient examined. Anus and digital rectal exam were Normal. While monitoring the patient with EKG, pulse oximetry and BP, colonoscope passed into cecum, which was identified by ileo-cecal valve, appendical orifice and transillumination of right lower quadrant. Prep was Hartman Bowel Prep Right Colon: Entire colon seen well, Hartman Bowel Prep Transverse Colon: Entire colon seen well, Hartman Bowel Prep Left Colon:Entire colon seen well or Excellent (Small volume of clear liquid or >95% of srface seen). FINDINGS: TI: Briefly visualized with no blood noted Cecum: Normal. Ascending Colon: Abnormal. one large 3 cm pedunculated polyp, biopsied to rule out malignancy (Bottle A). There were two adjacent polyps, one 7 mm adenomatous polyp proximal distal to the polyp and another 1 cm polyp lateral to polyp. Hepatic Flexure: Normal. Transverse Colon: Abnormal, one 9 mm polyp. Splenic Flexure: Normal. Descending Colon: Normal. Sigmoid Colon: Abnormal, few scattered small mouthed diverticula. Rectum: One 9 mm adenomatous pedunculated polyp with erythema on anal verge/near dentate line, best appreciated in retroflexed view, which was biopsies to rule out malignancy (Bottle B). + internal hemorrhoids Rectal bleeding (Primary Diagnosis) [940055] Unspecified right bundle-branch block [[id number]] Abnormal electrocardiogram (ECG) (EKG) [7362427] Abnormal electrocardiogram (ECG) (EKG) [[id number]] ANATOMIC SPECIMEN: Yes SPECIMEN: ID Type Source Tests Collected by Time Destination A : A. ascending colon bx Tissue Ascending colon SURGICAL GI ANATOMIC PATHOLOGY Juan Parikh MD 01/27/2025 1711 B : rectum bx Tissue Rectum SPECIMEN FOR SURGICAL PATH Juan Parikh MD 01/27/2025 1712 PHOTOGRAPH TAKEN: Yes Complications during procedure: None Estimated Blood Loss (EBL): Minimal IMPRESSION: Tortuous colon No active bleeding or evidence of old blood in colonoscopy One rectal polyp - suspect as etiology of her BRBPR. This was biopsied to rule out malignancy, but not removed. Internal hemorrhoids Four colonic polyps, not removed. The largest measured ~3 cm in size and was biopsied to rule out malignancy RECOMMENDATIONS: Follow-up path, if path is benign then patient would need repeat outpatient colonoscopy for polypectomies Repeat colonoscopy would need to be scheduled for 1 hour/prolonged case Ok for regular diet We will sign off but please don't hesitate to reach out with questions or concerns Hemorrhoidal care: -Sitz bath two to three times a day (in squatting position) PRN -Clean the area with a designated 100% cotton towel after washing the area with luke warm water after each bowel movement -Avoid straining and constipation -Increase fiber supplementation -Keep stools soft and regular, can use Colace or Miralax if needed -Anusol HC suppositories/cream BID for 10 days whenever there is bleeding Person completing note: Juan Parikh MD 01/27/2025 at 5:17 PM Patient meets criteria for discharge/transfer: Juan Parikh MD ATTENDING NOTE: I was present during and participated in this procedure, and have reviewed and agree with the findings. Adrien Caraballo MD Division of Gastroenterology & Hepatology [facility] 01-27-2025 History and physical note Ely Hurtado [id number] 01/27/2025 HISTORY & PHYSICAL: Patient's history with special attention to the cardiovascular, pulmonary systems and the current problem was reviewed with the patient immediately prior to the procedure. Medications, allergies, and pertinent laboratory tests were also reviewed at this time. The physical examination,as below, was then performed. Patient assessed to be ASA Class II Mallampati Airway Assessment: Class II Faucial pillars, soft palate visible History of adverse reactions involving sedation/anesthesia. None reported.} Family history of adverse reaction to sedation/anesthesia. None reported. PHYSICAL EXAMINATION BP 111/69 (BP Location: right arm) Pulse 77 Temp 98 F (36.7 C) (Oral) Resp 23 Ht 5' 9" (1.753 m) Wt 134 lb 0.6 oz (60.8 kg) SpO2 97% BMI 19.79 kg/m Mouth and Pharynx : Normal dentia/ oropharynx, clear Cardiac: regular rate and rhythm without murmurs, rubs, or gallops Pulmonary: Chest clear to auscultation bilaterally Neurological: normal without focal findings, mental status, speech normal, alert and oriented x iii, YONY, reflexes normal and symmetric Abdomen: Abdomen soft, non-tender. BS normal. No masses, No organomegaly Written informed consent obtained from legal guardian. Risks (including but not limited to perforation, bloating and bleeding,) benefits and alternatives explained and questions answered. Legal guardian verbalized understanding. Based on history and airway assessment patient is an appropriate candidate for moderate sedation. Juan Parikh MD 01/27/2025 3:34 PM [facility] 01-27-2025 History and physical note Ely L Bryant [id number] 01/27/2025 HISTORY & PHYSICAL: Patient's history with special attention to the cardiovascular, pulmonary systems and the current problem was reviewed with the patient immediately prior to the procedure. Medications, allergies, and pertinent laboratory tests were also reviewed at this time. The physical examination,as below, was then performed. Patient assessed to be ASA Class II Mallampati Airway Assessment: Class II Faucial pillars, soft palate visible History of adverse reactions involving sedation/anesthesia. None reported.} Family history of adverse reaction to sedation/anesthesia. None reported. PHYSICAL EXAMINATION BP 111/69 (BP Location: right arm) Pulse 77 Temp 98 F (36.7 C) (Oral) Resp 23 Ht 5' 9" (1.753 m) Wt 134 lb 0.6 oz (60.8 kg) SpO2 97% BMI 19.79 kg/m Mouth and Pharynx : Normal dentia/ oropharynx, clear Cardiac: regular rate and rhythm without murmurs, rubs, or gallops Pulmonary: Chest clear to auscultation bilaterally Neurological: normal without focal findings, mental status, speech normal, alert and oriented x iii, YONY, reflexes normal and symmetric Abdomen: Abdomen soft, non-tender. BS normal. No masses, No organomegaly Written informed consent obtained from legal guardian. Risks (including but not limited to perforation, bloating and bleeding,) benefits and alternatives explained and questions answered. Legal guardian verbalized understanding. Based on history and airway assessment patient is an appropriate candidate for moderate sedation. Juan Parikh MD 01/27/2025 3:34 PM Images from the original note were not included. .[facility] Step Down Unit - H&P Patient: Ely Hurtado : 1940 Sex: female Room: [place] [address] Admission: 01/25/2025 Today: 01/25/2025 (Length of stay: 1 day(s)) HISTORY OF PRESENT ILLNESS: CHIEF COMPLAINT: No chief complaint on file. 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 Patient who currently resides at [facility] ([facility]) where she was found to have significant bright red blood in her stool following multiple episodes of diarrhea on the morning of 01/24. They were transferred to the [facility] ED later that day for further evaluation. On presentation BP was 146/83, HR 104. CBC notable for drop og Hb from 11 3 months ago to 8.2. Repeated CBC showed a further drop of Hgb to 6.2. 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 Patient admitted directly to SDU and transfused w/ 2 units of pRBC prior to transfer. On presentation to the floors, patient is vitally stable and in no acute distress. Reported that they had a one day episode of bloody stools Axox2 at baseline and during admission. Patient does not endorse acute issues and has not had a BM since arriving. Not endorsing fever, chills, SOB, n/v, lightheadedness or headaches. Outiside ED Course: - VS: BP 125/79 HR 100 - Labs: HgB 6, Lactate 2 - EKG: NSR w/ PVC and incomplete RBBB - Imaging: CT ABD/pelvis - Interventions: IV protnix, 2u pRBC, IvF ROS: As noted in HPI PAST MEDICAL HISTORY: Medical History[1] Surgical History[2] Family History[3] Social History[4] Medications Ordered Prior to Encounter[5] Allergies[6] Home Meds: Meds: Apixiban 5mg, Atorvastain 10 mg, Vitamin D, Furosemide 40 mg, Kcl 20mg OBJECTIVE: Objective Temperature: [97.5 F (36.4 C)-97.8 F (36.6 C)] 97.5 F (36.4 C) Heart Rate: [77-92] 87 Respiratory Rate: [13-32] 32 BP: (99-118)/(70-91) 118/70 O2 Device: Room air at 96 % Intake/Output Summary (Last 24 hours) at 01/25/2025 1654 Last data filed at 01/25/2025 1600 Gross per 24 hour Intake 0 ml Output 1000 ml Net -1000 ml LABS: CBC: (01/25/2025: 1:22 PM) WBC 7.8 \\ Hgb 9.0 / Plt 189 / Hct 28.2 \\ Results Review BMP: (01/25/2025: 1:22 PM) 142 108 13 Gluc 98 3.8 26 0.61 Mg PO4 Ca 2.0 N/A 8.3 (1.6-2.8) (2.5-4.8) (8.4-10) Baseline Weight Unknown Admission Weight Weight: 135 lb 2.3 oz (61.3 kg) Today's Weight Weight: 135 lb 2.3 oz (61.3 kg) BMI 19.96 PHYSICAL EXAM: General: NAD. Frail HEENT: EOMI. Conjunctiva clear. No scleral icterus. Heart: RRR. No murmurs or rub. Lungs: CTAB. Abdomen: Soft. Non-tender. Non-distended. Extremities: No LE edema. Circumferential bruising around bilateral ankle Neuro: No focal deficits. A&Ox2(Year) Skin: Warm & dry. 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 PROBLEM LIST: Neuro AxOx2 at [facility] per OSH notes. Cardiology -No Acute concerns at this time Pulmonary No Acute concerns Gastrointestinal #Rectal Bleeding #Hepatic Aneurysm/pseudoaneurysm -CBC OSH 6 ->9 admission s/p 2u pRBC at OSH -Lactic Acid on admission 1 from 2 at OSH -PT/NR 13.7 and 1.22 -CT notable for hepatic aneurysm that needs IR consult, formal images not sent from OSH. Plan -Daily CBC -IV Protonix 40 mg daily. -CT Abd/pelvis w/wo contrast pending, IR to follow and give management recs. Infectious Disease No acute concern Renal #Urinary retention -Patient state they don't want to urinate and required straight cath which gave 1L of urine output -Will likely need gamez inserted for this evening as they are getting 4L for bowel prep. Hem/Onc #Rectal Bleeding #ANemia -GI plan to scope tomorrow Plan: -Bowel Prep tonight -Holding home Eliquis, last dose 01/23 -Restarted on home Statin Endocrine No acute Concerns -Elevated total and direct bili 2.5/0.42 -Evidence of cholestasis on OSH imaging but no abdominal pain described by patient -CTM MSK/Rheum No Acute cncern Feeding NPO Analgesia None Sedation N/A VTE ppx SCD HOB Eval 30 Degrees Ulcer ppx Protonix 40 Glycemic Control Target 140-180 SBT N/A Bowel Regimen N/A Indwelling N/A Drug De-Escalation Dispo: [facility] Code Status: Full Code This plan is preliminary until finalized by an attending physician. Wilbert Pérez MD PGY-1 Internal Medicine Stepdown Unit Pager [phone] [1] No past medical history on file. [2] No past surgical history on file. [3] No family history on file. [4] [5] No current facility-administered medications on file prior to encounter. No current outpatient medications on file prior to encounter. [6] Not on File Images from the original note were not included. Division of Pulmonary, Critical Care and Sleep Medicine Critical Care Initial Evaluation note Patient: Ely Hurtado : 1940 Location: [place] [address] Admission Date: 01/25/2025 Length of stay: 1 day(s) Ms. Ely Hurtado is a 84 year old female Data obtained by the EMR and corroborated by [facility] resident significant bright red blood in her stool following multiple episodes of diarrhea on the morning of 01/24. PMH: DVT on Eliquis All/Meds/PMHx/FHx/SHx/ROS per the resident's note. Reviewed and discussed Significant events summarize below: ED VS:Blood pressure 127/81, pulse 86, temperature 97.5 F (36.4 C), temperature source Oral, resp. rate 26, height 5' 9" (1.753 m), weight 135 lb 2.3 oz (61.3 kg), SpO2 94%. ED Labs: CBC: Hgb 9.0, WBC 7.8, Plt 189 Lytes: Na 142, K 3.8, Cl 108 Mg 2.0 Phos: N/A Ca 8.3 Cr: 0.61 Bun: 13 Glu 98 La N/A BNP N/A CT abdomen pelvis 1. 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 She was started on protonix and IVF , IV protnix, 2u pRBC, IvF Hgb 11.2 (09/2024)-->8.2 (current), received the 2 pRBC prior to transfer Arrived hemodynamically stable in SDU Planned for endoscopy tomorrow During my assessment: Exam: Blood pressure 127/81, pulse 86, temperature 97.5 F (36.4 C), temperature source Oral, resp. rate 26, height 5' 9" (1.753 m), weight 135 lb 2.3 oz (61.3 kg), SpO2 94%. % FiO2, NAD Respiratory Support: O2 Device: Room air I/Os: Intake/Output Summary (Last 24 hours) at 01/25/20251952 Last data filed at 01/25/2025 1900 Gross per 24 hour Intake 1750 ml Output 1000 ml Net 750 ml Wt Readings from Last 3 Encounters: 01/25/25 135 lb 2.3 oz (61.3 kg) Laboratory Data Review: Recent Labs 01/25/25 1322 01/25/25 1358 NA 142 -- K 3.8 -- CO2 26 -- CL 108* -- BUN 13 -- CR 0.61 -- GLU 98 -- CA 8.3* -- MG 2.0 -- WBC 7.8 -- HGB 9.0* -- PLT 189 -- MCV 73* -- PT -- 13.7* INR -- 1.22* TP 5.1* -- ALBUMIN 3.4* -- DBIL 0.42* -- TBIL 2.5* -- ALKPHOS 52 -- ALT 7 -- AST 15 -- Recent Labs 01/25/25 1358 LACTATE 1.0 Scheduled Meds atorvastatin 10 mg At Bedtime [START ON 01/26/2025] pantoprazole 40 mg Daily [START ON 01/26/2025] polyethylene glycol 17 g Daily [START ON 01/26/2025] senna 8.6 mg Daily Impression: 84 year old female with Acute blood loss anemia with hematochezia related to GI bleed, probably lower Incidental 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 Iron deficiency anemia 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 At this time recommendations: Hemodynamics: stable - goal MAP > 65mmHg On PPI drip GI consult , planning to get endoscopy tomorrow Will also need IR/ Vascular surg for elective management of the saccular aneurysm Respiratory Support: O2 Device: Room air Renal: follow UOP, BMP, Mg aim even balance Endocrine - no glycemic issues at present Nutrition -- NPO Tolerating: Yes GI PPXs: [START ON 01/26/2025] pantoprazole (PROTONIX) injection bowel regimen PT/OT: Progressive mobility as tolerated DVT Prophylaxis -- SCDS/ No medications of specified category were found Dispo - remains in SDU Code Status: Full Code Emergency contact: Primary Emergency Contact: aliza hurtado, Critical Care provided: The patient has a high probability of sudden, clinically significant deterioration, which requires the highest level of physician preparedness to intervene urgently. I managed/supervised life or organ supporting interventions that required frequent physician assessment. Time I spent with family or surrogate(s) is included only if the patient was incapable of providing the necessary information or participating in medical decision making. Teaching Physician Note: I saw and evaluated the patient. I personally obtained the javed and critical portions of the history and physical exam. I reviewed the residnet's documentation and discussed the patient. I agree with the resident's medical decision making as documented in their note. I provided 35 minutes of critical care time. Krishna Connolly MD Critical Care Attending 01/25/2025 7:53 PM documented in this encounter [facility] 01-27-2025 Consult note Associated Order (s): IP PHYSICAL THERAPY SERVICE REQUEST PHYSICAL THERAPY ACUTE EVALUATION Referral received, chart reviewed. RN cleared for mobility Patient seen from 935 to 1000 on 7W unit for 25 minutes. Co tx with OT for second set of skilled hands due to the medical complexity and to maximize functional participation due to patients decreased activity tolerance and quick to desat/SOB with minimal activity Admit date: 01/25/2025 12:28 PM Reason for Admit: 84 year old female presenting from OSH for urget vascular intervention and anemia. Pt currently resides at [facility] ([facility]) Diagnosis: Rectal Bleeding Hepatic Aneurysm/pseudoaneurysm Urinary retention Rectal bleeding Precautions: High falls Full code Delirium NPO Progressive mobility Strict I&O *hgb 7.9 Procedures this admit: planned for scope this date Past Medical and Surgical History: PMH: Medical History[1]anemia, rectal bleeding, history ov DVT, aneurysm of hepatic artery PSH: Surgical History[2] Identification was verified by patient verbalizing his/her name and date of . and patient's id band and date of . 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 Mobility Status: Modified indep with rollator ADL/IADL Indep with ADLs Assistance for IADLS Driving: (-) Employment: (-) Falls: 0 fall(s) in the past 6 months Home: questionable historian Living situation: lives in a apartment, Lives alone 0 steps to enter apartment Reports her son can assist Walk in shower Equipment available: rollator, shower chair, grab bars Per chart review: patient currently resides at [facility] ([facility]) with staff assist OBJECTIVE: Appearance: received supine in bed, patient gown, external female catheter, Tele, pulse ox, BP cuff, rollbelt, personal glasses Behavior: awake and agreeable to therapy; Orientation: A&O self, birthday and state - needs reorientation to place and current date Stimulation: Turned on lights to improve orientation to time of day Opened curtains to improve orientation to time of day/season OOB transfer to chair to increase tolerance to upright positioning to participate in functional tasks Eliminated other auditory distractions Command Following: Follows 1 step commands with VC repeated as needed Pain: Pain location denies pain Strength/Active ROM: B LE 4/5 Transfers/Bed Mobility Assistance Level Dep Max Mod Min CG CS DS IA I Set-Up Comment Supine to Sit x With increased time to complete and VC for sequencing -reports slight dizziness upon sitting that improves with time Sit to/from Stand x Sit<>stand with RW from EOB min A to obtain upright and VC for hand placement as pt attempts to pull up on RW Ambulation x2 Stepping transfer bed>recliner with RW CGAx2 to maintain upright and assist with RW management - pt demo decreased gait speed, step length, and unsteadiness; reports dizziness - deferred further mobility 2/2 c/o dizziness and plan for scope this date (concern for bleed) Session ended with pt up in recliner, lines/leads intact, roll belt donned. Chair alarm in place d/t falls risk. Call lazo and telephone within reach. Patient instructed to call for staff assist for all mobility. RN aware of patient location and mobility status. Endurance: decreased Vitals Pre-Mobility During Mobility Post Mobility Heart Rate 84 bpm 90 bpm 82 bpm Oxygen 100% >96% 98% Respiratory Rate 14 22 21 BP 112/78 - 99/66 (76) Patient/Family Education: Educated on PT role in acute care setting Review and emphasis on importance of continued mobility in the hospital setting Safety and sequencing with mobility and management of RW Use of call lazo and nursing assistance Discussed post acute recs Answered patient questions/concerns Treatment: Skilled intervention provided: Educated as stated above. Progression of therapeutic activities and gait training based on clinical/ professional judgement related to patient's performance and response to treatment interventions. Ensured patient safety by providing appropriate level of supervision/ guarding with use of all equipment. Verbal and tactile cues for breathing , rest breaks, posture, safety and guarding was provided as necessary. DME: With Patients permission ordered no equipment via [employer] Order. If any questions contact [facility] DME Provider at [phone]. 01/27/2025 6 Clicks Basic Mobility PT Difficulty turning over in bed 3 Difficulty sitting down and standing up from a chair with arms 3 Difficulty moving from lying on back to sitting on the side of the bed 3 Help from another person moving to and from bed to a chair 3 Help from another person to walk in hospital room 3 Help from another person climbing 3-5 steps with a railing 2 PT 6 Clicks Score 17 6 Click Score Guidelines: 1 - Total = Requires total assistance, or cannot do at all. 2 - A lot = Requires a lot of help (maximum to moderate assistance) Can use assistive devices. 3 - A little = Requires a little help (supervision, minimal assistance) Can use assistive devices. 4 - None = Does not require any help and does the activity independently. Can use assistive devices. ASSESSMENT: Patient presents to skilled PT services with below deficits limiting independence with functional mobility. Pt presenting below baseline status, will benefit from PT services during hospitalization to address. Recommend further therapy services in a [facility] Setting once medically cleared. Will continue to follow patient while in hospital as appropriate. Problems: Decreased ROM/strength Decreased functional mobility Decreased endurance Decreased balance Decreased education in exercise/precautions Decreased cognition/behavior Impaired safety awareness Rehabilitation Potential: Good Goals (to be achieved by 10 days ): Patient will increase bed mobility to supervision Patient will perform sit to/from stand with LRD supervision Patient will transfer bed<>chair with LRD supervision Patient will ambulate 50 ft with LRD supervision Patient will increase ROM/Strength/Endurance/Balance to allow for above goals. Patient/Family independent with exercise program/precautions. PLAN OF CARE: Frequency: Patient to be seen 1-3 times a week Interventions: Functional mobility ROM/Strengthening Home exercise program Discharge planning and equipment ordering as needed Patient /Family education The evaluation findings and treatment plan were discussed with the patient/family. The patient/family indicated understanding and agreement with the plan. Estela Elkins, PT, DPT NA = Not Assessed, I = Independent, IA = Modified Independent, Sup = Supervised, Set up = Physical Assistance for Set-up Only, Min = Minimal Assistance, Mod = Moderate Assistance, Max = Max assistance; Dep = Dependent; AROM = Active Range of Motion; PROM = Passive Range of Motion; MMT = Manual Muscle Test; LE = Lower Extremity; VC = verbal cues; TC = tactile cues; PLB = pursed lip breathing [1] No past medical history on file. [2] No past surgical history on file. [facility] 01-27-2025 Note PHYSICAL THERAPY ACU TE EVALUATION Referral received, chart reviewed. RN cleared for mobility Patient seen from 935 to 1000 on 7W unit for 25 minutes. Co tx with OT for second set of skilled hands due to the medical complexity and to maximize functional participation due to patients decreased activity tolerance and quick to desat/SOB with minimal activity Admit date: 01/25/2025 12:28 PM Reason for Admit: 84 year old female presenting from OSH for urget vascular intervention and anemia. Pt currently resides at [facility] ([facility]) Diagnosis: Rectal Bleeding Hepatic Aneurysm/pseudoaneurysm Urinary retention Rectal bleeding Precautions: High falls Full code Delirium NPO Progressive mobility Strict I AND O *hgb 7.9 Procedures this admit: planned for scope this date Past Medical and Surgical History: PMH: Medical History[1]anemia, rectal bleeding, history ov DVT, aneurysm of hepatic artery PSH: Surgical History[2] Identification was verified by patient verbalizing his/her name and date of . and patient's id band and date of . 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 Mobility Status: Modified indep with rollator ADL/IADL Indep with ADLs Assistance for IADLS Driving: (-) Employment: (-) Falls: 0 fall(s) in the past 6 months Home: questionable historian Living situation: lives in a apartment, Lives alone 0 steps to enter apartment Reports her son can assist Walk in shower Equipment available: rollator, shower chair, grab bars Per chart review: patient currently resides at [facility] ([facility]) with staff assist OBJECTIVE: Appearance: received supine in bed, patient gown, external female catheter, Tele, pulse ox, BP cuff, rollbelt, personal glasses Behavior: awake and agreeable to therapy; Orientation: A AND O self, birthday and state - needs reorientation to place and current date Stimulation: Turned on lights to improve orientation to time of day Opened curtains to improve orientation to time of day/season OOB transfer to chair to increase tolerance to upright positioning to participate in functional tasks Eliminated other auditory distractions Command Following: Follows 1 step commands with VC repeated as needed Pain: Pain location denies pain Strength/Active ROM: B LE 4/5 Transfers/Bed Mobility Assistance Level Dep Max Mod Min CG CS DS IA I Set-Up Comment Supine to Sit x With increased time to complete and VC for sequencing -reports slight dizziness upon sitting that improves with time Sit to/from Stand x Sit<>stand with RW from EOB min A to obtain upright and VC for hand placement as pt attempts to pull up on RW Ambulation x2 Stepping transfer bed>recliner with RW CGAx2 to maintain upright and assist with RW management - pt demo decreased gait speed, step length, and unsteadiness; reports dizziness - deferred further mobility 2/ c/o dizziness and plan for scope this date (concern for bleed) Session ended with pt up in recliner, lines/leads intact, roll belt donned. Chair alarm in place d/t falls risk. Call lazo and telephone within reach. Patient instructed to call for staff assist for all mobility. RN aware of patient location and mobility status. Endurance: decreased Vitals Pre-Mobility During Mobility Post Mobility Heart Rate 84 bpm 90 bpm 82 bpm Oxygen 100% >96% 98% Respiratory Rate 14 22 21 BP 112/78 - 99/66 (76) Patient/Family Education: Educated on PT role in acute care setting Review and emphasis on importance of continued mobility in the hospital setting Safety and sequencing with mobility and management of RW Use of call lazo and nursing assistance Discussed post acute recs Answered patient questions/concerns Treatment: Skilled intervention provided: Educated as stated above. Progression of therapeutic activities and gait training based on clinical/ professional judgement related to patient's performance and response to treatment interventions. Ensured patient safety by providing appropriate level of supervision/ guarding with use of all equipment. Verbal and tactile cues for breathing , rest breaks, posture, safety and guarding was provided as necessary. DME: With Patients permission ordered no equipment via HeartThis Order. If any questions contact [employer] [facility]ME Provider at [phone]. 01/27/2025 6 Clicks Basic Mobility PT Difficulty turning over in bed 3 Difficulty sitting down and standing up from a chair with arms 3 Difficulty moving from lying on back to sitting on the side of the bed 3 Help from another person moving to and from bed to a chair 3 Help from another person to walk in hospital room 3 Help from another person climbing 3-5 steps with a railing 2 PT 6 Clicks Score (more content not included)... [facility] 01-27-2025 Consult note Associated Order (s): IP OCCUPATIONAL THERAPY SERVICE REQUEST OCCUPATIONAL THERAPY INITIAL EVALUATION Patient seen from 9:35 to 10:00 on 7W unit for 25 minutes. Paige wolfe physical therapy for safe progression of mobilization. Reason for Admit: 84 year old female admitted on 01/25/2025 with a PMH from OSH for urget vascular intervention and anemia. Diagnosis: Rectal Bleeding Hepatic Aneurysm/pseudoaneurysm Urinary retention Rectal Bleeding Anemia Hypocalcemia Precautions/Activity Order: High falls Full code NPO Progressive mobility Procedures this admit: none Past Medical and Surgical History: PMH: anemia, rectal bleeding, history ov DVT, aneurysm of hepatic artery PSH: Surgical History[1] SUBJECTIVE: Pt poor historian Patient Subjective: "My walker is somewhere in [place]" Patient Identified Goal(s): Return home Home Living Situation Per pt report: Lives in apartment w 0 LATESHA 0 steps to bed/ bathroom (walk in shower) Lives alone w son PRN assistance Equipment available: rollator, shower chair, grab bars Ind w ADL+ assist for IADLs IA for functional mobility w rollator (-) Drive (-) Falls Per chart: pt resides at SNF ([facility]) with staff assist OBJECTIVE: Patient Identification: patient verbalizing his/her name and date of . and patient's id band and date of . Risks and benefits of occupational therapy: Patient informed of risks and benefits of treatment Appearance: supine in bed upon arrival, noy belt, hep lock IV, tele, BP cuff Alertness: WFL Affect: WNL Cooperation/Behavior: Appropriate dialogue with therapist and Pleasant and cooperative Communication: WFL Pain: Pain ratin/10 Pain Relief Interventions Implemented: Positioning Self Care: Assistance Level Dep Max Mod Min CG CS DS IA I Set-Up Comment Feeding x x NPO Anticipate CS Grooming/Hygiene x x Anticipate seated Bathing:UB x Anticipate seated Bathing:LB x Anticipate seated Dressing:UB x Adjust hospital gown seated EOB Dressing: LB x Anticipate seated Toileting x x Anticipate CS for pericare and CGA for clothing management Transfers/Bed Mobility: Assistance Level Dep Max Mod Min CG CS DS IA I Set-Up Comment Toilet Transfers x Anticiapte CGA w FWW and use of grab bars Bed Transfers x CGA for STS EOB w FWW VC for hand placement Bed Mobility x Supine -> sit EOB VC for pursed lip breathing upon static sitting EOB Functional ambulation x ~ 3 steps w FWW from EOB -> chair VC for safe sequencing w device Endurance for Self Care: Impaired Pt reports dizziness upon mobilization. Educated on pursed lip breathing Vitals Supine/ At rest EOB During mobility Post mobility HR 84 90 82 BP 112/78 99/66 (76) SPO2 100 90 82 Static Sitting Balance: Good Dynamic Sitting Balance: Good UE Motor: WFL for ADL tasks Vision/Perception: wears glasses Cognition: Orientation: Oriented to person, requries VC for place, date Follows Commands: one step commands w VCs Attention: Impaired Memory: Impaired, confused Problem Solving: Impaired Safety/Judgement: Impaired Sequencing: Impaired Patient/Family Education: Instructed patient in roles of therapy, Patient instructed in pursed lip breathing, importance of OOB movement, and instructed in roles, goals, treatment plan: demonstrated good verbal understanding Patient up in chair with call light in reach. Chair alarm intact. Noy belt in place. DME: With Patients permission ordered no equipment via HeartThis Order. If any questions contact [facility] DME Provider at [phone]. 01/27/2025 6 Clicks Daily Activity OT Help from another person Eating meals 3 Help from another person taking care of personal grooming 3 Help from another person bathing 3 Help from another person putting on and taking off regular upper body clothing 3 Help from another person putting on and taking off regular lower body clothing 3 Help from another person toileting 3 OT 6 Clicks Score 18 6 Click Score Guidelines: 1 - Unable = Total/Dependent Assist 2 - A lot = Max/Moderate Assist 3 - A little = Minimum/Contact Guard Assist/Supervision 4 - Non = Modified [place]/Independent ASSESSMENT: Recommend further therapy services in a Skilled Rehab Setting once medically cleared. Will continue to follow patient while in hospital as appropriate. Rehabilitation Potential: Good Problem List: decreased ADLs, impaired upper extremity motor function, decreased endurance, decreased functional transfers/mobility, decreased cognition, decreased home management tasks/IADLs, decreased functional activity tolerance, and increased pain Goals (to be achieved by discharge from acute care): Patient will feed self with Modified Independent Patient will perform grooming with Modified Independent Patient will dress upper body with Modified Independent Patient will dress lower body with Modified Independent Patient will perform bed mobility with Modified Independent Patient will perform bathing with Modified Independent Patient will perform toileting with Modified Independent Patient will perform bed transfers with Modified Independent Patient will perform commode transfers with Modified Independent PLAN: Ely Patsy RitchieBryant will be seen 1-3 times a week. Treatment to include: Functional AROM/Strengthening, PROM / joint mobilization, functional mobility training, ADL retraining, functional endurance activities, work simplification / energy conservation, cognitive retraining, home management retraining, functional task simulation, adaptive equipment / compensatory strategy training, patient / family education and discharge planning, and referral to appropriate support services able to discuss the evaluation findings and treatment plan with the patient/family. The patient/family did participate in the development of plan and goals. This student therapist collaborated with a licensed, supervising therapist for patient assessment and/or treatment per the identified plan of care as appropriate. This document is not finalized until reviewed and co-signed by the licensed, supervising therapist. Sayra Resendez S/OT Attila was present and participated in the delivery of services for this encounter. In addition, I am responsible for the skilled judgement and assessment of all interventions provided. POONAM Garcia NA = Not Assessed, I = Independent, IA = Modified Independent, Sup = Supervised, Set up = Physical Assistance for Set-up Only, Min = Minimal Assistance, Mod = Moderate Assistance, Max = Max assistance; Dep = Dependent; AROM = Active Range of Motion;PROM=Passive Range of Motion; MMT = Manual Muscle Test; UB = Upper Body; LB = Lower Body [1] No past surgical history on file. [facility] 01-27-2025 Note OCCUPATIONAL THERAPY INITIAL EVALUATION Patient seen from 9:35 to 10:00 on 7W unit for 25 minutes. Co-eval w physical therapy for safe progression of mobilization. Reason for Admit: 84 year old female admitted on 01/25/2025 with a PMH from OSH for urget vascular intervention and anemia. Diagnosis: Rectal Bleeding Hepatic Aneurysm/pseudoaneurysm Urinary retention Rectal Bleeding Anemia Hypocalcemia Precautions/Activity Order: High falls Full code NPO Progressive mobility Procedures this admit: none Past Medical and Surgical History: PMH: anemia, rectal bleeding, history ov DVT, aneurysm of hepatic artery PSH: Surgical History[1] SUBJECTIVE: Pt poor historian Patient Subjective: "My walker is somewhere in [place]" Patient Identified Goal(s): Return home Home Living Situation Per pt report: Lives in apartment w 0 LATESHA 0 steps to bed/ bathroom (walk in shower) Lives alone w son PRN assistance Equipment available: rollator, shower chair, grab bars Ind w ADL+ assist for IADLs IA for functional mobility w rollator (-) Drive (-) Falls Per chart: pt resides at SNF ([facility]) with staff assist OBJECTIVE: Patient Identification: patient verbalizing his/her name and date of . and patient's id band and date of . Risks and benefits of occupational therapy: Patient informed of risks and benefits of treatment Appearance: supine in bed upon arrival, noy belt, hep lock IV, tele, BP cuff Alertness: WFL Affect: WNL Cooperation/Behavior: Appropriate dialogue with therapist and Pleasant and cooperative Communication: WFL Pain: Pain ratin/10 Pain Relief Interventions Implemented: Positioning Self Care: Assistance Level Dep Max Mod Min CG CS DS IA I Set-Up Comment Feeding x x NPO Anticipate CS Grooming/Hygiene x x Anticipate seated Bathing:UB x Anticipate seated Bathing:LB x Anticipate seated Dressing:UB x Adjust hospital gown seated EOB Dressing: LB x Anticipate seated Toileting x x Anticipate CS for pericare and CGA for clothing management Transfers/Bed Mobility: Assistance Level Dep Max Mod Min CG CS DS IA I Set-Up Comment Toilet Transfers x Anticiapte CGA w FWW and use of grab bars Bed Transfers x CGA for STS EOB w FWW VC for hand placement Bed Mobility x Supine -> sit EOB VC for pursed lip breathing upon static sitting EOB Functional ambulation x ~ 3 steps w FWW from EOB -> chair VC for safe sequencing w device Endurance for Self Care: Impaired Pt reports dizziness upon mobilization. Educated on pursed lip breathing Vitals Supine/ At rest EOB During mobility Post mobility HR 84 90 82 BP 112/78 99/66 (76) SPO2 100 90 82 Static Sitting Balance: Good Dynamic Sitting Balance: Good UE Motor: WFL for ADL tasks Vision/Perception: wears glasses Cognition: Orientation: Oriented to person, requries VC for place, date Follows Commands: one step commands w VCs Attention: Impaired Memory: Impaired, confused Problem Solving: Impaired Safety/Judgement: Impaired Sequencing: Impaired Patient/Family Education: Instructed patient in roles of therapy, Patient instructed in pursed lip breathing, importance of OOB movement, and instructed in roles, goals, treatment plan: demonstrated good verbal understanding Patient up in chair with call light in reach. Chair alarm intact. Noy belt in place. DME: With Patients permission ordered no equipment via HeartThis Order. If any questions contact [facility] DME Provider at [phone]. 01/27/2025 6 Clicks Daily Activity OT Help from another person Eating meals 3 Help from another person taking care of personal grooming 3 Help from another person bathing 3 Help from another person putting on and taking off regular upper body clothing 3 Help from another person putting on and taking off regular lower body clothing 3 Help from another person toileting 3 OT 6 Clicks Score 18 6 Click Score Guidelines: 1 - Unable = Total/Dependent Assist 2 - A lot = Max/Moderate Assist 3 - A little = Minimum/Contact Guard Assist/Supervision 4 - Non = Modified [place]/Independent ASSESSMENT: Recommend further therapy services in a Skilled Rehab Setting once medically cleared. Will continue to follow patient while in hospital as appropriate. Rehabilitation Potential: Good Problem List: decreased ADLs, impaired upper extremity motor function, decreased endurance, decreased functional transfers/mobility, decreased cognition, decreased home management tasks/IADLs, decreased functional activity tolerance, and increased pain Goals (to be achieved by discharge from acute care): Patient will feed self with Modified Independent Patient will perform grooming with Modified Independent Patient will dress upper body with Modified Independent Patient will dress lower body with Modified Independent Patient will perform bed mobility with Modified Independent Patient will perform bathing with M (more content not included)... [facility] 01-27-2025 Note .[facility] Step Down Unit - Progress Note Patient: Ely Hurtado : 1940 Sex: female Room: [place] [address] Admission: 01/25/2025 Today: 01/27/2025 (Length of stay: 2 day(s)) HOSPITAL COURSE: Ely Hurtado is a 84 year old female admitted on 01/25/2025 with a PMH of anemia, rectal bleeding, history ov DVT, 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 Patient who currently resides at [facility] ([facility]) where she was found to have significant bright red blood in her stool following multiple episodes of diarrhea on the morning of 01/24. They were transferred to the [facility] ED later that day for further evaluation. On presentation BP was 146/83, HR 104. CBC notable for drop og Hb from 11 3 months ago to 8.2. Repeated CBC showed a further drop of Hgb to 6.2. 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 Patient admitted directly to SDU and transfused w/ 2 units of pRBC prior to transfer. On presentation to the floors, patient is vitally stable and in no acute distress. Reported that they had a one day episode of bloody stools Axox2 at baseline and during admission. Patient does not endorse acute issues and has not had a BM since arriving. Not endorsing fever, chills, SOB, n/v, lightheadedness or headaches. 01/27 patient bowel prepped for scope by GI this afternoon SUBJECTIVE: INTERVAL UPDATES: CHANTAL Refused colnoscopy, GI got consent from son HgB 7.9 today SUBJECTIVE: Patient seen and examined at bedside. Does not remember if they had ay bloody bm. Asking about leaving to have breakfast No acute issues on their part. OBJECTIVE: Objective Temperature: [98 ???F (36.7 ???C)-98.2 ???F (36.8 ???C)] 98.2 ???F (36.8 ???C) Heart Rate: [75-101] 75 Respiratory Rate: [13-45] 14 BP: (108-147)/(66-89) 118/66 O2 Device: Room air at 97 % Intake/Output Summary (Last 24 hours) at 01/27/2025 0700 Last data filed at 01/27/2025 0500 Gross per 24 hour Intake 885 ml Output 2150 ml Net -1265 ml LABS: CBC: (01/27/2025: 5:10 AM) WBC 7.7 Hgb 7.9 / Plt 189 / Hct 24.6 Results Review BMP: (01/27/2025: 5:10 AM) 145 112 5 Gluc 68 3.2 23 0.54 Mg PO4 Ca 2.0 N/A 7.8 (1.6-2.8) (2.5-4.8) (8.4-10) PHYSICAL EXAM: General: NAD. HEENT: EOMI. Conjunctiva clear. No scleral icterus. Heart: RRR. No murmurs or rub. Lungs: CTAB. Abdomen: Soft. Non-tender. Non-distended. Extremities: No LE edema. Neuro: No focal deficits. A AND Ox2 Skin: Warm AND dry. 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 2. Chronic ancillary findings as above. CONSULTS: IP GASTROENTEROLOGY CONSULT ASSESSMENT AND PLAN: Ely Hurtado is a 84 year old female with a history of anemia, rectal bleeding, dvt history, auerysm of hepatic artery admitted with anemia and LGIB work up PROBLEM LIST: Neuro AxOx2 at [facility] per OSH notes. Cardiology -No Acute concerns at this time Pulmonary No Acute concerns Gastrointestinal #Rectal Bleeding #Hepatic Aneurysm/pseudoaneurysm -CBC OSH 6 ->9 admission s/p 2u pRBC at OSH -Lactic Acid on admission 1 from 2 at OSH -PT/NR 13.7 and 1.22 -CT notable for hepatic aneurysm that needs IR consult, formal images not sent from OSH. -CTA abdomen showed 4.1 cm saccular aneurysm, Plan -Daily CBC -IV Protonix 40 mg daily. -No acute intervention at this time per IR Infectious Disease No acute concern Renal #Urinary retention -Patient state they don't want to urinate and required straight cath which gave 1L of urine output -Gamez inserted Hem/Onc #Rectal Bleeding #Anemia #Hypocalcemia #Hypokalemia -k 3.2 this AM -GI plan to scope this afternoon Plan: -Holding home Eliquis, last dose 01/23 -Restarted on home Statin -Trend hgb, Hgb > 7, transfuse PRN -Given 20 mg IV K Endocrine No acute Concerns -Elevated total and direct bili 2.5/0.42 -Evidence of cholestasis on OSH imaging but no abdominal pain described by patient -CTM MSK/Rheum No Acute cncern -Excoriations noted on groin and buttocks -Nystatin and triad ordered Feeding NPO Analgesia - Sedation N/A VTE ppx SCD HOB Eval 30 Degrees Ulcer ppx Protonix Glycemic Control Target 140-180 SBT N/A Bowel Regimen Senna Indwelling Gamez Drug De-Escalation - Dispo: SNF Code Status: Full Code This plan is preliminary until finalized by an attending physician. N (more content not included)... [facility] 01-26-2025 Consult note Associated Order (s): IP GASTROENTEROLOGY CONSULT Images from the original note were not included. Department of Gastroenterology and Hepatology Consult H&P Note GI Attending Physician: Dr. Isauro Frias MD Patient: Ely Hurtado Location: [place] [address]1 Reason for Consult: [facility] Ely Hurtado is a 84 year old female with prior history of anemia, hepatic artery aneurysm, admitted to step-down unit for evaluation of rectal bleeding. The patient resides at a nursing facility and was noted to have bright red bleeding per rectum. She was evaluated at outside hospital, where a CT abdomen and pelvis revealed a 4 centimeter hepatic aneurysm, and her hemoglobin was 6 prior to transferred to [facility]. She received 2 units of RBC transfusion. Since her transfer, she had an episode of bleeding per rectum. However, today she denies any bleeding per rectum, denies melena, nausea, vomiting, abdominal pain. She was started on bowel prep yesterday, has liquid stool which is not clear yet. Denies prior EGD or colonoscopy Not on anticoagulation Denies family history of GI cancer Denies smoking, alcohol use, or recreational drug use Review Of Systems Positives as noted in HPI. All other systems were reviewed and negative. GI Procedures - none Medical and Surgical Histories Medical History[1] Surgical History[2] Family History: family history is not on file. Social History Social History[3] atorvastatin, 10 mg, Oral, At Bedtime pantoprazole, 40 mg, Intravenous, Daily polyethylene glycol, 17 g, Oral, Daily senna, 8.6 mg, Oral, Daily Physical Exam BP 137/89 (BP Location: right arm) Pulse 101 Temp 98.2 F (36.8 C) Resp 28 Ht 5' 9" (1.753 m) Wt 132 lb 11.5 oz (60.2 kg) SpO2 86% BMI 19.60 kg/m General: well-nourished, well-groomed, pleasant, NAD Pulm: no increased WOB on room air, CTAB Card: RRR, no murmurs Abdomen: soft, nontender, nondistended, normal bowel sounds KIRBY: bleeding per rectum Extremities: no NICKY, no gross deformity Labs CBC/PT/INR 01/26/2025 01/25/2025 01/25/2025 01/25/2025 5:04 AM 8:14 PM 1:58 PM 1:22 PM WBC 8.9 10.2 -- 7.8 RBC 3.67 4.11 -- 3.86 Hgb 8.7 9.8 -- 9.0 Hct 26.8 29.7 -- 28.2 MCV 73 72 -- 73 RDW 20.0 19.8 -- 19.7 Plt 189 221 -- 189 INR -- -- 1.22 -- Hepatic/Biliary/Pancreas 01/25/2025 1:22 PM T Prot 5.1 Albumin 3.4 D Bili 0.42 T Bili 2.5 Alk Phos 52 ALT 7 AST 15 Basic Metabolic Panel 01/26/2025 01/25/2025 5:04 AM 1:22 PM Na 141 142 K 3.7 3.8 Cl 110 108 CO2 23 26 Gap 12 12 Glu 85 98 BUN 9 13 Cr 0.58 0.61 Ca 7.9 8.3 Mg 1.9 2.0 PT/INR 01/25/2025 1:58 PM INR 1.22 Imaging Hepatobiliary: Unremarkable liver without biliary dilation. Cholelithiasis without CT evidence of acute cholecystitis. Additional hyperdense material within the gallbladder likely represents vicarious excretion of contrast. IMPRESSION: 1. 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 2. Chronic ancillary findings as above. ASSESSMENT 84-year-old female with history of chronic anemia, prior history of DVT, not on anticoagulation, admitted to step-down unit with bleeding per rectum. She received 2 units of transfusion prior to transfer from outside hospital, however since admission she has been hemodynamically stable, she did have an episode of bright red bleeding per rectum. 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 Continue NPO. Continue transfusion for hemoglobin less than 7 The patient expressed good understanding of the above discussion and plan. All questions were answered to her full satisfaction. Shahid Toledo MD, MS Gastroenterology Fellow. Consult Pager [phone] Discussed with GI attending, Dr. Adrien Caraballo MD Primary team updated yes. Thank you for involving us in the care of this patient. I appreciate the excellent care from the nursing staff, and practice support specialist. Dictated using voice recognition software. Document may contain errors not identified Addendum: During the afternoon rounds, she appeared disoriented and declined the colonoscopy procedure tomorrow. I spoke with her son Aliza ([email or web address]), obtained verbal consent from from her son. Please give 2 L of bowel prep. Continue NPO after midnight. Plan for colonoscopy tomorrow Teaching Physician Note I saw and evaluated the patient. I personally obtained the javed and critical portions of the history and physical exam. I reviewed the fellow's documentation and discussed the patient with the fellow. I agree with the fellow's medical decision making as documented in the resident's note. Mary Peña. Staff Gastoenterologist Division of Gastroenterology & Hepatology [facility] [1] No past medical history on file. [2] No past surgical history on file. [3] [facility] Work Phone: 01-26-2025 Hospital Note Formatting of t his note might be different from the original. 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 Furthermore, she will also found to have acute blood loss anemia with hematochezia. She was admitted to the medical step-down unit and underwent colonoscopy with finding of polyps vs internal hemorrhoids as likely etiology of bleed. Also underwent proper hepatic artery coil embolization on 01/28/2025 for saccular aneurysm. There were no further episodes of bleeding and her hemoglobin remained stable. She was transferred to the general medical floor on 01/29 for trial of re-initiation of anticoagulation before discharge. [facility] 01-26-2025 Note .[facility] Step Down Unit - Progress Note Patient: Ely Hurtado : 1940 Sex: female Room: [place] [address] Admission: 01/25/2025 Today: 01/26/2025 (Length of stay: 1 day(s)) HOSPITAL COURSE: Ely Hurtado is a 84 year old female admitted on 01/25/2025 with a PMH of anemia, rectal bleeding, history ov DVT, 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 Patient who currently resides at [facility] ([facility]) where she was found to have significant bright red blood in her stool following multiple episodes of diarrhea on the morning of 01/24. They were transferred to the [facility] ED later that day for further evaluation. On presentation BP was 146/83, HR 104. CBC notable for drop og Hb from 11 3 months ago to 8.2. Repeated CBC showed a further drop of Hgb to 6.2. 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 Patient admitted directly to SDU and transfused w/ 2 units of pRBC prior to transfer. On presentation to the floors, patient is vitally stable and in no acute distress. Reported that they had a one day episode of bloody stools Axox2 at baseline and during admission. Patient does not endorse acute issues and has not had a BM since arriving. Not endorsing fever, chills, SOB, n/v, lightheadedness or headaches. 01/26 patient bowel prepped for scope by GI this afternoon SUBJECTIVE: INTERVAL UPDATES: NAEON SUBJECTIVE: Patient seen and examined at bedside. Does not remember if they had ay blody bam. Asking if they can leave today. No acute issues on their part. OBJECTIVE: Objective Temperature: [97.5 ???F (36.4 ???C)-99.2 ???F (37.3 ???C)] 98.2 ???F (36.8 ???C) Heart Rate: [77-93] 77 Respiratory Rate: [13-32] 24 BP: (99-131)/(59-95) 109/59 O2 Device: Room air at 98 % Intake/Output Summary (Last 24 hours) at 01/26/2025 0649 Last data filed at 01/25/2025 1900 Gross per 24 hour Intake 1750 ml Output 1000 ml Net 750 ml LABS: CBC: (01/26/2025: 5:04 AM) WBC 8.9 Hgb 8.7 / Plt 189 / Hct 26.8 Results Review BMP: (01/26/2025: 5:04 AM) 141 110 9 Gluc 85 3.7 23 0.58 Mg PO4 Ca 1.9 N/A 7.9 (1.6-2.8) (2.5-4.8) (8.4-10) PHYSICAL EXAM: General: NAD. HEENT: EOMI. Conjunctiva clear. No scleral icterus. Heart: RRR. No murmurs or rub. Lungs: CTAB. Abdomen: Soft. Non-tender. Non-distended. Extremities: No LE edema. Neuro: No focal deficits. A AND Ox2 Skin: Warm AND dry. 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 2. Chronic ancillary findings as above. CONSULTS: IP GASTROENTEROLOGY CONSULT ASSESSMENT AND PLAN: Ely Hurtado is a 84 year old female with a history of anemia, rectal bleeding, dvt history, auerysm of hepatic artery admitted with anemia and LGIB work up PROBLEM LIST: Neuro AxOx2 at [facility] per OSH notes. Cardiology -No Acute concerns at this time Pulmonary No Acute concerns Gastrointestinal #Rectal Bleeding #Hepatic Aneurysm/pseudoaneurysm -CBC OSH 6 ->9 admission s/p 2u pRBC at OSH -Lactic Acid on admission 1 from 2 at OSH -PT/NR 13.7 and 1.22 -CT notable for hepatic aneurysm that needs IR consult, formal images not sent from OSH. -CTA abdomen showed 4.1 cm saccular aneurysm, Plan -Daily CBC -IV Protonix 40 mg daily. -No acute intervention at this time per IR Infectious Disease No acute concern Renal #Urinary retention -Patient state they don't want to urinate and required straight cath which gave 1L of urine output -Gamez inserted Hem/Onc #Rectal Bleeding #Anemia #Hypocalcemia -GI plan to scope this afternoon Plan: -Holding home Eliquis, last dose 01/23 -Restarted on home Statin -Trend hgb, Hgb > 7, transfuse PRN Endocrine No acute Concerns -Elevated total and direct bili 2.5/0.42 -Evidence of cholestasis on OSH imaging but no abdominal pain described by patient -CTM MSK/Rheum No Acute cncern -Excoriations noted on groin and buttocks -Nystatin and triad ordered Feeding NPO Analgesia - Sedation N/A VTE ppx SCD HOB Eval 30 Degrees Ulcer ppx Protonix Glycemic Control Target 140-180 SBT N/A Bowel Regimen Senna Indwelling Gamez Drug De-Escalation - Dispo: SNF Code Status: Full Code This plan is preliminary until finalized by an attending physician. Wilbert Pérez MD PGY-1 Internal Medicine Stepdown Unit Pager [phone] [facility] 01-25-2025 Consult note Formatting of th is note is different from the original. Images from the original note were not included. Interventional Radiology Consult Date: 01/25/25 Name: Ely Hurtado Reason for Consult: Hepatic proper saccular aneurysm Assessment & Plan Assessment & Plan Ely Hurtado is a 84 year old female here for rectal bleeding. 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 Patient currently scheduled to have a scope with GI tomorrow. Pressures are soft, hgb 9, no tachycardia. Upon review of the images with attending physician, The CTA was negative for bleed that IR could address. We recommend GI scope and stabilizing the patient pending IR intervention for the saccular aneurysm. Plan No acute intervention at this time Given negative CTA recommend GI scope for rectal bleeding Agree with holding home AC/AP Trend hgb, Hgb > 7, transfuse PRN Thank you for including us in this patient's care plan. Please contact IR once the patient's primary reason for hospitalization has resolved. The patient and the plan was discussed with the oncall attending Tristan Garrison DO. Subjective Subjective Ely Hurtado is a 84 year old female here for rectal bleeding. Interventional radiology was consulted for saccular aneurysm of hepatic proper noted on OSH exam. Allergies Allergies[1] Past medical History There is no previous medical history on file. Past Surgical History Surgical History[2] Objective Objective BP 104/68 (BP Location: left arm) Pulse 81 Temp 97.5 F (36.4 C) (Oral) Resp 23 Ht 5' 9" (1.753 m) Wt 135 lb 2.3 oz (61.3 kg) SpO2 95% BMI 19.96 kg/m BMP (last 1 year, up to 8 values) 01/25/2025 1:22 PM Na 142 K 3.8 Cl 108 CO2 26 Gap 12 Glu 98 BUN 13 Cr 0.61 Ca 8.3 eGFR 89 Mg 2.0 CBC 01/25/2025 1:22 PM WBC 7.8 RBC 3.86 Hgb 9.0 Hct 28.2 MCV 73 RDW 19.7 Plt 189 PT/INR 01/25/2025 1:58 PM INR 1.22 [1] Not on File [2] No past surgical history on file. Cosigned by Tristan Garrison DO at 01/28/2025 4:46 PM EDT [facility] Work Phone: 01-25-2025 History and physical note Images from the original note were not included. .[facility] Step Down Unit - H&P Patient: Ely Hurtado : 1940 Sex: female Room: [place] [address] Admission: 01/25/2025 Today: 01/25/2025 (Length of stay: 1 day(s)) HISTORY OF PRESENT ILLNESS: CHIEF COMPLAINT: No chief complaint on file. 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 Patient who currently resides at [facility] ([facility]) where she was found to have significant bright red blood in her stool following multiple episodes of diarrhea on the morning of 01/24. They were transferred to the [facility] ED later that day for further evaluation. On presentation BP was 146/83, HR 104. CBC notable for drop og Hb from 11 3 months ago to 8.2. Repeated CBC showed a further drop of Hgb to 6.2. 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 Patient admitted directly to SDU and transfused w/ 2 units of pRBC prior to transfer. On presentation to the floors, patient is vitally stable and in no acute distress. Reported that they had a one day episode of bloody stools Axox2 at baseline and during admission. Patient does not endorse acute issues and has not had a BM since arriving. Not endorsing fever, chills, SOB, n/v, lightheadedness or headaches. Outiside ED Course: - VS: BP 125/79 HR 100 - Labs: HgB 6, Lactate 2 - EKG: NSR w/ PVC and incomplete RBBB - Imaging: CT ABD/pelvis - Interventions: IV protnix, 2u pRBC, IvF ROS: As noted in HPI PAST MEDICAL HISTORY: Medical History[1] Surgical History[2] Family History[3] Social History[4] Medications Ordered Prior to Encounter[5] Allergies[6] Home Meds: Meds: Apixiban 5mg, Atorvastain 10 mg, Vitamin D, Furosemide 40 mg, Kcl 20mg OBJECTIVE: Objective Temperature: [97.5 F (36.4 C)-97.8 F (36.6 C)] 97.5 F (36.4 C) Heart Rate: [77-92] 87 Respiratory Rate: [13-32] 32 BP: (99-118)/(70-91) 118/70 O2 Device: Room air at 96 % Intake/Output Summary (Last 24 hours) at 01/25/2025 1654 Last data filed at 01/25/2025 1600 Gross per 24 hour Intake 0 ml Output 1000 ml Net -1000 ml LABS: CBC: (01/25/2025: 1:22 PM) WBC 7.8 \\ Hgb 9.0 / Plt 189 / Hct 28.2 \\ Results Review BMP: (01/25/2025: 1:22 PM) 142 108 13 Gluc 98 3.8 26 0.61 Mg PO4 Ca 2.0 N/A 8.3 (1.6-2.8) (2.5-4.8) (8.4-10) Baseline Weight Unknown Admission Weight Weight: 135 lb 2.3 oz (61.3 kg) Today's Weight Weight: 135 lb 2.3 oz (61.3 kg) BMI 19.96 PHYSICAL EXAM: General: NAD. Frail HEENT: EOMI. Conjunctiva clear. No scleral icterus. Heart: RRR. No murmurs or rub. Lungs: CTAB. Abdomen: Soft. Non-tender. Non-distended. Extremities: No LE edema. Circumferential bruising around bilateral ankle Neuro: No focal deficits. A&Ox2(Year) Skin: Warm & dry. 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 PROBLEM LIST: Neuro AxOx2 at [facility] per OSH notes. Cardiology -No Acute concerns at this time Pulmonary No Acute concerns Gastrointestinal #Rectal Bleeding #Hepatic Aneurysm/pseudoaneurysm -CBC OSH 6 ->9 admission s/p 2u pRBC at OSH -Lactic Acid on admission 1 from 2 at OSH -PT/NR 13.7 and 1.22 -CT notable for hepatic aneurysm that needs IR consult, formal images not sent from OSH. Plan -Daily CBC -IV Protonix 40 mg daily. -CT Abd/pelvis w/wo contrast pending, IR to follow and give management recs. Infectious Disease No acute concern Renal #Urinary retention -Patient state they don't want to urinate and required straight cath which gave 1L of urine output -Will likely need gamez inserted for this evening as they are getting 4L for bowel prep. Hem/Onc #Rectal Bleeding #ANemia -GI plan to scope tomorrow Plan: -Bowel Prep tonight -Holding home Eliquis, last dose 01/23 -Restarted on home Statin Endocrine No acute Concerns -Elevated total and direct bili 2.5/0.42 -Evidence of cholestasis on OSH imaging but no abdominal pain described by patient -CTM MSK/Rheum No Acute cncern Feeding NPO Analgesia None Sedation N/A VTE ppx SCD HOB Eval 30 Degrees Ulcer ppx Protonix 40 Glycemic Control Target 140-180 SBT N/A Bowel Regimen N/A Indwelling N/A Drug De-Escalation Dispo: SNF Code Status: Full Code This plan is preliminary until finalized by an attending physician. iWlbert Pérez MD PGY-1 Internal Medicine Stepdown Unit Pager [phone] [1] No past medical history on file. [2] No past surgical history on file. [3] No family history on file. [4] [5] No current facility-administered medications on file prior to encounter. No current outpatient medications on file prior to encounter. [6] Not on File [facility] 01-25-2025 History and physical note Images from the original note were not included. Division of Pulmonary, Critical Care and Sleep Medicine Critical Care Initial Evaluation note Patient: Ely Hurtado : 1940 Location: [place] [address] Admission Date: 01/25/2025 Length of stay: 1 day(s) Ms. Ely Hurtado is a 84 year old female Data obtained by the EMR and corroborated by [facility] resident significant bright red blood in her stool following multiple episodes of diarrhea on the morning of 01/24. PMH: DVT on Eliquis All/Meds/PMHx/FHx/SHx/ROS per the resident's note. Reviewed and discussed Significant events summarize below: ED VS:Blood pressure 127/81, pulse 86, temperature 97.5 F (36.4 C), temperature source Oral, resp. rate 26, height 5' 9" (1.753 m), weight 135 lb 2.3 oz (61.3 kg), SpO2 94%. ED Labs: CBC: Hgb 9.0, WBC 7.8, Plt 189 Lytes: Na 142, K 3.8, Cl 108 Mg 2.0 Phos: N/A Ca 8.3 Cr: 0.61 Bun: 13 Glu 98 La N/A BNP N/A CT abdomen pelvis 1. 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 She was started on protonix and IVF , IV protnix, 2u pRBC, IvF Hgb 11.2 (09/2024)-->8.2 (current), received the 2 pRBC prior to transfer Arrived hemodynamically stable in SDU Planned for endoscopy tomorrow During my assessment: Exam: Blood pressure 127/81, pulse 86, temperature 97.5 F (36.4 C), temperature source Oral, resp. rate 26, height 5' 9" (1.753 m), weight 135 lb 2.3 oz (61.3 kg), SpO2 94%. % FiO2, NAD Respiratory Support: O2 Device: Room air I/Os: Intake/Output Summary (Last 24 hours) at 01/25/20251952 Last data filed at 01/25/2025 1900 Gross per 24 hour Intake 1750 ml Output 1000 ml Net 750 ml Wt Readings from Last 3 Encounters: 01/25/25 135 lb 2.3 oz (61.3 kg) Laboratory Data Review: Recent Labs 01/25/25 1322 01/25/25 1358 NA 142 -- K 3.8 -- CO2 26 -- CL 108* -- BUN 13 -- CR 0.61 -- GLU 98 -- CA 8.3* -- MG 2.0 -- WBC 7.8 -- HGB 9.0* -- PLT 189 -- MCV 73* -- PT -- 13.7* INR -- 1.22* TP 5.1* -- ALBUMIN 3.4* -- DBIL 0.42* -- TBIL 2.5* -- ALKPHOS 52 -- ALT 7 -- AST 15 -- Recent Labs 01/25/25 1358 LACTATE 1.0 Scheduled Meds atorvastatin 10 mg At Bedtime [START ON 01/26/2025] pantoprazole 40 mg Daily [START ON 01/26/2025] polyethylene glycol 17 g Daily [START ON 01/26/2025] senna 8.6 mg Daily Impression: 84 year old female with Acute blood loss anemia with hematochezia related to GI bleed, probably lower Incidental 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 Iron deficiency anemia 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 At this time recommendations: Hemodynamics: stable - goal MAP > 65mmHg On PPI drip GI consult , planning to get endoscopy tomorrow Will also need IR/ Vascular surg for elective management of the saccular aneurysm Respiratory Support: O2 Device: Room air Renal: follow UOP, BMP, Mg aim even balance Endocrine - no glycemic issues at present Nutrition -- NPO Tolerating: Yes GI PPXs: [START ON 01/26/2025] pantoprazole (PROTONIX) injection bowel regimen PT/OT: Progressive mobility as tolerated DVT Prophylaxis -- SCDS/ No medications of specified category were found Dispo - remains in SDU Code Status: Full Code Emergency contact: Primary Emergency Contact: aliza hurtado, Leon Critical Care provided: The patient has a high probability of sudden, clinically significant deterioration, which requires the highest level of physician preparedness to intervene urgently. I managed/supervised life or organ supporting interventions that required frequent physician assessment. Time I spent with family or surrogate(s) is included only if the patient was incapable of providing the necessary information or participating in medical decision making. Teaching Physician Note: I saw and evaluated the patient. I personally obtained the javed and critical portions of the history and physical exam. I reviewed the residnet's documentation and discussed the patient. I agree with the resident's medical decision making as documented in their note. I provided 35 minutes of critical care time. Krishna Connolly MD Critical Care Attending 01/25/2025 7:53 PM [facility] Work Phone: 01-25-2025 Note Division of Pulmonar y, Critical Care and Sleep Medicine Critical Care Initial Evaluation note Patient: Ely Hurtado : 1940 Location: [place] [address] Admission Date: 01/25/2025 Length of stay: 1 day(s) Ms. Ely Hurtado is a 84 year old female Data obtained by the EMR and corroborated by me [place] resident significant bright red blood in her stool following multiple episodes of diarrhea on the morning of 01/24. PMH: DVT on Eliquis All/Meds/PMHx/FHx/SHx/ROS per the resident's note. Reviewed and discussed Significant events summarize below: ED VS:Blood pressure 127/81, pulse 86, temperature 97.5 ???F (36.4 ???C), temperature source Oral, resp. rate 26, height 5' 9" (1.753 m), weight 135 lb 2.3 oz (61.3 kg), SpO2 94%. ED Labs: CBC: Hgb 9.0, WBC 7.8, Plt 189 Lytes: Na 142, K 3.8, Cl 108 Mg 2.0 Phos: N/A Ca 8.3 Cr: 0.61 Bun: 13 Glu 98 La N/A BNP N/A CT abdomen pelvis 1. 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 She was started on protonix and IVF , IV protnix, 2u pRBC, IvF Hgb 11.2 (09/2024)-->8.2 (current), received the 2 pRBC prior to transfer Arrived hemodynamically stable in SDU Planned for endoscopy tomorrow During my assessment: Exam: Blood pressure 127/81, pulse 86, temperature 97.5 ???F (36.4 ???C), temperature source Oral, resp. rate 26, height 5' 9" (1.753 m), weight 135 lb 2.3 oz (61.3 kg), SpO2 94%. % FiO2, NAD Respiratory Support: O2 Device: Room air I/Os: Intake/Output Summary (Last 24 hours) at 01/25/20251952 Last data filed at 01/25/2025 1900 Gross per 24 hour Intake 1750 ml Output 1000 ml Net 750 ml Wt Readings from Last 3 Encounters: 01/25/25 135 lb 2.3 oz (61.3 kg) Laboratory Data Review: Recent Labs 01/25/25 1322 01/25/25 1358 NA 142 -- K 3.8 -- CO2 26 -- CL 108* -- BUN 13 -- CR 0.61 -- GLU 98 -- CA 8.3* -- MG 2.0 -- WBC 7.8 -- HGB 9.0* -- PLT 189 -- MCV 73* -- PT -- 13.7* INR -- 1.22* TP 5.1* -- ALBUMIN 3.4* -- DBIL 0.42* -- TBIL 2.5* -- ALKPHOS 52 -- ALT 7 -- AST 15 -- Recent Labs 01/25/25 1358 LACTATE 1.0 Scheduled Meds atorvastatin 10 mg At Bedtime [START ON 01/26/2025] pantoprazole 40 mg Daily [START ON 01/26/2025] polyethylene glycol 17 g Daily [START ON 01/26/2025] senna 8.6 mg Daily Impression: 84 year old female with Acute blood loss anemia with hematochezia related to GI bleed, probably lower Incidental 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 Iron deficiency anemia 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 At this time recommendations: Hemodynamics: stable - goal MAP > 65mmHg On PPI drip GI consult , planning to get endoscopy tomorrow Will also need IR/ Vascular surg for elective management of the saccular aneurysm Respiratory Support: O2 Device: Room air Renal: follow UOP, BMP, Mg aim even balance Endocrine - no glycemic issues at present Nutrition -- NPO Tolerating: Yes GI PPXs: [START ON 01/26/2025] pantoprazole (PROTONIX) injection bowel regimen PT/OT: Progressive mobility as tolerated DVT Prophylaxis -- SCDS/ No medications of specified category were found Dispo - remains in SDU Code Status: Full Code Emergency contact: Primary Emergency Contact: aliza hurtado, Critical Care provided: The patient has a high probability of sudden, clinically significant deterioration, which requires the highest level of physician preparedness to intervene urgently. I managed/supervised life or organ supporting interventions that required frequent physician assessment. Time I spent with family or surrogate(s) is included only if the patient was incapable of providing the necessary information or participating in medical decision making. Teaching Physician Note: I saw and evaluated the patient. I personally obtained the javed and critical portions of the history and physical exam. I reviewed the residnet's documentation and discussed the patient. I agree with the resident's medical decision making as documented in their note. I provided 35 minutes of critical care time. Krishna Connolly MD Critical Care Attending 01/25/2025 7:53 PM [facility] 01-25-2025 Telephone encounter Note Images from the original note were not included. I was called by [facility] regarding a transfer from [place]. That facility is requesting transfer because Services not provide. Dr. Rdz The clinical history is 84 y/o F with PMH of DVT on Eliquis presenting with rectal bleed/melena. 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 On protonic gtt. Hgb 11.2 (09/2024)-->8.2 (current) The pertinent labs, vitals signs and imaging are notable for: VS: Afebrile, BP 104/64 HR 85 RR 19 99% on RA CBC: WBC 9.8, hgb 8.2 Plt 335 BMP: No electrolyte derangements. No Cr (0.84) INR 1.5 T&S O+ CT scan read this: large 4.3 cm saccular aneurysm/pseudoaneurysm at the distal common hepatic artery. Urgent vascular intervention consult. Large inguinal hernia no bowel obstruction Tx: protonix gtt + IVF The patient was NOT accepted.for transfer pending bed availability with the caveat that patient will continue in clinical stability. Will discuss further pending lactate and repeat hgb. If worsening labs or status may need SDU vs. MICU. The patient was accepted 4:08 AM 01/25/25. If the facility number was unknown or Unavailable at the time of acceptance, [facility] can supply the call back number. The receiving team is responsible for calling the sending facility for provider to provider report if there has been significant delay between the time the patient was accepted and the time the bed was assigned. If there is concern for clinical stability by the receiving team they will call the PIC (physician in charge) to discuss the case. Keyon Fallon DO Division of Hospital Medicine, [facility] Pager#: [phone] [facility] 01-25-2025 Miscellaneous Notes Images from the original note were not included. I was called by [facility] regarding a transfer from [place]. That facility is requesting transfer because Services not provide. Dr. Rdz The clinical history is 84 y/o F with PMH of DVT on Eliquis presenting with rectal bleed/melena. 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 On protonic gtt. Hgb 11.2 (09/2024)-->8.2 (current) The pertinent labs, vitals signs and imaging are notable for: VS: Afebrile, BP 104/64 HR 85 RR 19 99% on RA CBC: WBC 9.8, hgb 8.2 Plt 335 BMP: No electrolyte derangements. No Cr (0.84) INR 1.5 T&S O+ CT scan read this: large 4.3 cm saccular aneurysm/pseudoaneurysm at the distal common hepatic artery. Urgent vascular intervention consult. Large inguinal hernia no bowel obstruction Tx: protonix gtt + IVF The patient was NOT accepted.for transfer pending bed availability with the caveat that patient will continue in clinical stability. Will discuss further pending lactate and repeat hgb. If worsening labs or status may need SDU vs. MICU. The patient was accepted 4:08 AM 01/25/25. If the facility number was unknown or Unavailable at the time of acceptance, [facility] can supply the call back number. The receiving team is responsible for calling the sending facility for provider to provider report if there has been significant delay between the time the patient was accepted and the time the bed was assigned. If there is concern for clinical stability by the receiving team they will call the PIC (physician in charge) to discuss the case. Keyon Fallon DO Division of Hospital Medicine, [facility] Pager#: [phone] documented in this encounter [facility] 01-25-2025 Radiology Diagnostic study note [facility] Imaging Services [address] [place] [address] [id number] CTA Abd/Pelvis W/WO Contrast MR#: [id number] Acct: [id number] Name: ELY HURTADO Rep #: [id number] : 1940 F 84 From: Bob Garza MD PCP: Dianna Guido MD Status: REG ER Study:CTA Abd/Pelvis W/WO Contrast Date of Ex am: 01/24/25 Exam# [id number] Ordering Dr: Power Borges DO PROCEDURE: CTA ABD/PELVIS W/WO CONTRAST 01/24/2025 REASON FOR EXAM: GI BLEED TECHNIQUE: CTA ABD/PELVIS W/WO CONTRAST Multiplanar Sagittal and Coronal images were obtained. 3D and/or MIPS post processing was performed. CONTRAST: Isovue 370 VOLUME: 100 mL One or more dose reduction techniques were used (e.g., Automated exposure control, adjustment of the mA and/or kV according to patient size, use of iterative reconstruction technique). RADIATION DOSE SUMMARY: DLP: 688.94 mGycm COMPARISON: None available. FINDINGS: VASCULATURE: Abdominal aorta is tortuous but normal in caliber. No aortic aneurysm or dissection. Mild atherosclerotic disease. Major branches of the celiac axis, SMA, SANTY, bilateral renal and iliac arteries are patent. There is a large saccular aneurysm/pseudoaneurysm measuring 4.3 x 3.8 x 3.3 cm (CC, TV, AP) which originates from the distal common hepatic artery (see javed images). No adjacent free fluid or contrast extravasation to indicate aneurysm rupture. HEPATOBILIARY: Cholelithiasis, without evidence for acute cholecystitis. No significant biliary ductal dilatation. Subcentimeter hyperenhancing focus in the posterior right hepatic lobe (S2 image27) is most likely a small flash filling hemangioma. Normal-sized spleen. Unremarkable pancreas. GENITOURINARY: Normal, symmetric renal enhancement. Chronic cortical scarring along the upper pole of the left kidney. No urolithiasis or hydronephrosis. Unremarkable urinary bladder. Grossly normal appearance of the uterus and adnexae. GI TRACT: No evidence of bowel obstruction or active inflammatory process. Milddistal colonic diverticulosis. Normal appendix. There is a large right inguinal hernia containing mesenteric fat/vasculature andseveral loops of distal small bowel, without evidence of obstruction or strangulation. No intraluminal hyperdense material/contrast extravasation to indicate active gastrointestinal hemorrhage. Nonspecific fluid within the colon. PERITONEUM/RETROPERITONEUM: No free fluid or air. No lymphadenopathy. MUSCULOSKELETAL: Nodular calcifications in the bilateral breast soft tissues, nonspecific. Chronic appearing cortical buckle fracture deformity of the right iliac wing. Chronic severe compression fracturedeformity of T10, with no significant retropulsion. Mild degenerative changes of the spine elsewhere. Diffuse qualitative osteopenia. CT/CTA Abd/Pelvis W/WO Contrast IMPRESSION: 1. 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 No signs of rupture. Recommend urgent Vascular Interventional consult. 2. No evident active gastrointestinal hemorrhage. Nonspecific fluid in the colon. 3. Cholelithiasis, without evidence for acute cholecystitis. 4. Large right inguinal hernia containing several loops of distal small bowel, without evidence of bowel obstruction or strangulation/incarceration. 5. Additional non-acute ancillary findings, as described above. Findings communicated with provider Power Borges 01/24/2025 at 10:50 p.m. DESIGN AND SALES CONSULTANT. Reading Location: [id number] CC: Dr. Power Borges DO; Dianna Guido MD ~ Mail Clerk: Signed [facility] 06-25-2023 Progress note Note Date/Time June 25, 2023 2:29pm [facility] [address] [place] [address] Progress Note - Wound Care 06/25/23 1425 MR#: [id number] Acct: [id number] Name: ELY HURTADO Rep #:[id number] : 1940 83 From: Andie Magdaleno PM PCP: Dr. Karen Lang MD Status:R EG RCR Location: History of Present Illness Date of Service: 06/25/23 Chief Complaint: Nonhealing ulcer left lower extremity History of Wound: This is a 79-year-old white female known to me previously who was recently discharged from the [facility] in November 2018 who presents to the wound center today for nonhealing ulcer on her left lower extrtemity x 2 weeks. She has a past medical history which is significant for hypertension, venous insufficiency, vertigo and peripheral vascular disease. The patient has not been utilizing any intervention for wound care and has been wearing compression socks that are 15-20 mm Hg but has not been elevating her legs as much as she should. She denies any fever, chills, nausea, vomiting, shortness of breath, chest pain or pressure. Patient states she fell in her bathroom on [address] on and since then has had this open wound that will not heal. She is very touchy about having it debrided and touched. Subjective Subjective Mrs. Hurtado is a 83-year-old female with a chief complaint of a full-thickness wound to the left leg. She has been compliant with her dressing changes status is kept her compression stocking on bilaterally as well as keeping them clean dry and intact. She presents today for graft application. She denies any new onset of trauma. She denies any new ulcerations. She denies constitutional symptoms. No other pedal plaints at this time. Objective Data Objective Data Vital Signs: Vital Signs Temp Pulse Resp BP O2 Del Method 96.7 F L 83 16 125/75 H Room Air 06/25/23 14:01 06/25/23 14:01 06/25/23 14:01 06/25/23 14:01 06/25/23 14:01 Oxygen Delivery Method Room Air Weight: 62.777 kg Body Mass Index (BMI) 21.0 Physical Exam Narrative Vascular: DP and PT pulses are faintly palpable. CFT is brisk. Evidence of varicosities appreciated bilateral lower extremity. Nonpitting edema appreciated left lower extremity. Skin temperature great is warm to cold from proximal ankle to distal digits to left lower extremity. Neurological: Light touch intact. Patient response to painful stimuli. Protective sensation is present. Dermatological: Full-thickness ulceration to the left lateral leg hich is now healed. Xerotic skin appreciated Nodrainage. No evidence of erythema, proximal streaking or sign of infection. Musculoskeletal: Mild to moderate palpatory tenderness is appreciated to the full-thickness ulceration left leg. No pain with calf pressure. Debridement Note Debridement Note Post-Debridement Measurements and Additional Note: Post-Debridement Measurements/Treatment - Nurse 1 - General Ulcer Assessment Start: 06/11/23 13:11 Freq: Status: Active Protocol: LUZ Activity Type Activity Date Activity User E-sign Co-sign Detail Recorded Client Recorded Date Recorded By Document 06/11/23 13:11 [facility] 06/11/23 13:19 Document 06/18/23 13:58 [facility] 06/18/23 14:03 Document 06/25/23 14:01 [employer] 06/25/23 14:09 06/11/23 06/18/23 06/25/23 13:11 13:58 14:01 - Today's Visit Information Type of service Follow-up Visit Follow-up Visit Follow-up Visit (Physician/SLUBBER OPERATOR (Physician/SLUBBER OPERATOR (Physician/SLUBBER OPERATOR ) ) ) Arrival Mode Ambulatory, Ambulatory, Ambulatory, Walker Walker Walker Transfer Assistance None Patient Identification Verified (Name & Yes Yes Yes ) Patient Requires Transmission-Based No Precautions Height and Weight Body Mass Index (BMI) 21.0 21.0 21.0 BMI Classification Normal Normal Normal Vital Signs Temperature (97.8 F-99.1 F) 96.7 F L Temperature Source Temporal Pulse Rate (60-100) 83 83 Pulse Location Monitor Monitor Monitor Respiratory Rate (12-18) 18 18 16 Respiratory rate source Observation Observation Observation Oxygen Delivery Method Room Air Room Air Room Air Blood Pressure (90/60-120/80) 123/69 H 125/75 H Blood Pressure Mean (mm Hg) 87 91 Source Monitor Monitor Monitor Position Sitting Semi-Fowlers Sitting Blood Pressure Location Right Arm Left Arm Right Arm History Since Last Visit- (Skip if this is Patient's initial visit) Have you changed medications since your No No No last visit? Any new allergies or adverse reactions No No No Had a fall/change in ADL's that may No No No increase risk of falls Signs or symptoms of abuse and/or No No No neglect since last visit Have you been in the hospital since your No No No last visit? Has dressing in place as prescribed Yes Yes Yes Has compression in place as prescribed Yes Yes Yes Has offloadiing in place as prescribed No No N/A Experienced any changes in pain level or No No No management Left Footwear Regular Shoe Regular Shoe Regular Shoe Right Footwear Regular Shoe Regular Shoe Regular Shoe Pain Scale: 0-10 Numeric Is Patient Pain Free? Yes Yes Yes WC - Nurse 1 - General Ulcer Measurement Start: 06/11/23 13:11 Freq: Status: Active Protocol: Activity Type Activity Date Activity User E-sign Co-sign Detail Recorded Client Recorded Date Recorded By Document 06/11/23 13:11 KW [employer] 06/11/23 13:19 KW Document 06/18/23 13:58 [employer] 06/18/23 14:03 KW Document 06/25/23 14:01 [employer] 06/25/23 14:09 06/11/23 06/18/23 06/25/23 13:11 13:58 14:01 Wound Center Nurse 1 #7 LT LAT LE -Combined with other wound No -Current Size (cm) - Length 1.2 1.3 1.5 -Current Size (cm) - Width 0.7 0.9 0.9 -Current Size (cm) - Depth 0.1 0.1 0.1 -Total Square Cm 0.84 1.17 1.35 -Photo Taken No -Tunneling No -Undermining/Tunneling No -Circular Undermining No -Exudate Amt Medium Small Small -Exudate Type Serosanguineous Serosanguineous Sanguineous -Wound Margin Distinct, Distinct, Distinct, Outline Outline Outline Attached Attached Attached -Granulation Amt Medium (34-66%) -Necrosis Amt Small (1-33%) -Necrotic Tissue Type Adherent Slough -Structure Exposed N/A -Texture (Kajal-wound Skin Appearance) Assessed Assessed Assessed -Moisture (Kajal-wound Skin Appearance) Assessed Assessed Assessed -Color (Kajal-wound Skin Appearance) Assessed Assessed Assessed -Temperature (Kajal-wound Skin No Abnormality No Abnormality No Abnormality Appearance) (Pt Warm) (Pt Warm) (Pt Warm) -Ulcer Cleansing Soap and Water Soap and Water Soap and Water -Foul Odor after Cleansing No No -Anesthetic Used 5% Lidocaine 5% Lidocaine 5% Lidocaine Gel Gel Gel -Wound Comment(s) scabbed Right Calf (cm) 29.5 Right Ankle (cm) 20.0 Left Calf (cm) 30 29.7 Left Ankle (cm) 20.5 20 - Nurse 2 - General Ulcer CM Notes Start: 06/11/23 13:11 Freq: Status: Active Protocol: Activity Type Activity Date Activity User E-sign Co-sign Detail Recorded Client Recorded Date Recorded By Document 06/11/23 13:41 Laptop 06/11/23 13:43 Document 06/18/23 14:21 Laptop 06/18/23 14:25 Document 06/25/23 14:18 Laptop 06/25/23 14:18 06/11/23 06/18/23 06/25/23 13:41 14:21 14:18 Wound Center Nurse 2 #7 LT LAT LE -Time 13:42 -Correct Patient Yes Yes No -Correct Side, Site, Position Yes Yes No -Correct Procedure Yes Yes No -Procedure Performed Yes Yes No -Type of Procedure Debridement Debridement -Clinical Debridement Subcutaneous Subcutaneous -Tissue Removed Subcutaneous Subcutaneous -Post Debridement (cm) - Length 1.0 0.5 0 -Post Debridement (cm) - Width 0.7 0.3 0 -Post Debridement (cm) - Depth 0.1 0.1 0 -Total Square (Post) (cm) 0.70 0.15 0 -Area of Debridement (cm) - Length 1.0 0.5 0 -Area of Debridement (cm) - Width 0.7 0.3 0 -Total Square (Area) (cm) 0.70 0.15 0 -Tunneling No No -Undermining/Tunneling No No -Circular Undermining No No -Wound/Ulcer Outcome Not Healed Not Healed Healed- Epithelialized -Ulcer Cleansing Rinsed/ Rinsed/ Irrigated with Irrigated with Saline Saline -Foul Odor after Cleansing No No -Bioengineered Tissue Yes Yes -Type of Bioengineered Tissue Epifix 18mm Epifix 18mm Disc Disc -Expiration Date 02/08/28 02/08/28 -Product Lot Number [id number] -Percent Used 100 100 -Lot number of Saline Used [id number] -Bleeding Controlled with Pressure Pressure -Treatment Response Procedure Procedure Tolerated Well Tolerated Well -Offloading No No -Debridement - Subq, 1st 20sq cm No No -Apply Skin Sub - 1st 25 sq cm - Legs 1 1 -Epifix 18mm Disc 3 3 Pain Scale: 0-10 Numeric Is Patient Pain Free? Yes Yes Yes - Nurse 3 - General Ulcer D/C NN Start: 06/11/23 13:11 Freq: Status: Active Protocol: Activity Type Activity Date Activity User E-sign Co-sign Detail Recorded Client Recorded Date Recorded By Document 06/11/23 13:46 KW Desktop 06/11/23 13:47 Document 06/18/23 14:43 [facility] Desktop 06/18/23 14:43 [facility] Document 06/25/23 14:19 KW Desktop 06/25/23 14:22 KW 06/11/23 06/18/23 06/25/23 13:46 14:43 14:19 Wound Care Center Nurse 3 #7 LT LAT LE -Other Dressing epi -Primary Dressing Covered/Secured with Dry Gauze & Dry Gauze & Roll Gauze, Roll Gauze, Secured with Secured with Tape Tape Left -Tubular Bandage Double Layer Double Layer -Size of Tubigrip Used Size D Size D -Size D ($) 2 1 Treatment Response Procedure Tolerated Well Pain Scale: 0-10 Numeric Is Patient Pain Free? 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 All findings were discussed with the patient. All questions were answered to the patient's satisfaction. The patient's left lower extremity full-thickness ulceration with graft application is now healed. There is evidence of xerotic skin. Lotion was applied to the left lower extremity. The patient does have compression stockings 15 to 20 mmHg and will need to wear them daily whenever she is ambulatory. She is understanding of this. Educated the patient to follow back up at the wound care center if she has any new evidence of reopening to her wound. Again she was understanding of this. She left the office please with her visit. Follow-up as needed. (2) PVD (peripheral vascular disease): CODE(S): I73.9 - Peripheral vascular disease, unspecified 06/25/23 1429 <Electronically signed by Andie Bernal DPM> Cosigner Signature (if applicable): CC: ~ Signed [facility] Work Phone: 1(818) 746-165601-10-2024 Progress note Author Andie Bernal [facility] June 18, 2023 3:30pm Note Date/Time June 18, 2023 3 :30pm [facility] [address] [place] [id number] Progress Note - Wound Care 06/18/23 1528 MR#: [id number] Acct: [id number] Name: ELY HURTADO Rep #:[id number] : 1940 83 From: Andie DE LA TORRE PCP: Dr. Karen Lang MD Status:R ISABELLA ENRIQUEZ Location: History of Present Illness Date of Service: 06/18/23 Chief Complaint: Nonhealing ulcer left lower extremity History of Wound: This is a 79-year-old white female known to me previously who was recently discharged from the [facility] in November 2018 who presents to the wound center today for nonhealing ulcer on her left lower extrtemity x 2 weeks. She has a past medical history which is significant for hypertension, venous insufficiency, vertigo and peripheral vascular disease. The patient has not been utilizing any intervention for wound care and has been wearing compression socks that are 15-20 mm Hg but has not been elevating her legs as much as she should. She denies any fever, chills, nausea, vomiting, shortness of breath, chest pain or pressure. Patient states she fell in her bathroom on [address] on and since then has had this open wound that will not heal. She is very touchy about having it debrided and touched. Subjective Subjective Mrs. Hurtado is a 83-year-old female with a chief complaint of a full-thickness wound to the left leg. She has been compliant with her dressing changes status is kept her compression stocking on bilaterally as well as keeping them clean dry and intact. She presents today for graft application. She denies any new onset of trauma. She denies any new ulcerations. She denies constitutional symptoms. No other pedal plaints at this time. Objective Data Objective Data Vital Signs: Vital Signs Temp Pulse Resp BP O2 Del Method 98.7 F 83 18 123/69 H Room Air 06/09/23 00:26 06/11/23 13:11 06/18/23 13:58 06/11/23 13:11 06/18/23 13:58 Oxygen Delivery Method Room Air Weight: 62.777 kg Body Mass Index (BMI) 21.0 Physical Exam Narrative Vascular: DP and PT pulses are faintly palpable. CFT is brisk. Evidence of varicosities appreciated bilateral lower extremity. Nonpitting edema appreciated left lower extremity. Skin temperature great is warm to cold from proximal ankle to distal digits to left lower extremity. Neurological: Light touch intact. Patient response to painful stimuli. Protective sensation is present. Dermatological: Full-thickness ulceration to the left lateral leg measuring 0.5 x 0.3 x 0.1 cm. Wound base is fibrogranular nature. No evidence of serous drainage. No evidence of erythema, proximal streaking or sign of infection. Excisional debridement down to and including subcutaneous tissue with a #15 blade to the left lateral leg without incident. Predebridement measurement was 0.4 x 0.2 x 0.1 cm. Postdebridement measurement is 0.5 x 0.3 x 0.1 cm. EpiFix 18 mm disc was applied to the left lateral full-thickness ulceration [id number]% use. Third application. The graft site was free and clear of any infection. The wound/skin graft substitute was dressed with nonadherent bandagesecured in place with Steri-Strips followed by bolster dressing as well as a double layer Tubigrip. Musculoskeletal: Mild to moderate palpatory tenderness is appreciated to the full-thickness ulceration left leg. No pain with calf pressure. Debridement Note Debridement Note Debridement Free Text: Excisional debridement down to and including subcutaneoustissue with a #15 blade to the left lateral leg without incident. Predebridement measurement was 0.4 x 0.2 x 0.1 cm. Postdebridement measurement is 0.5 x 0.3 x 0.1 cm. EpiFix 18 mm disc was applied to the left lateral full-thickness ulceration [id number]% use. Third application. The graft site was free and clear of any infection. The wound/skin graft substitute was dressed with nonadherent bandagesecured in place with Steri-Strips followed by bolster dressing as well as a double layer Tubigrip. Post-Debridement Measurements and Additional Note: Post-Debridement Measurements/Treatment - Nurse 1 - General Ulcer Assessment Start: 06/11/23 13:11 Freq: Status: Active Protocol: WC.[email or web address] Activity Type Activity Date Activity User E-sign Co-sign Detail Recorded Client Recorded Date Recorded By Document 06/11/23 13:11 KW Desktop 06/11/23 13:19 KW Document 06/18/23 13:58 KW Desktop 06/18/23 14:03 KW 06/11/23 06/18/23 13:11 13:58 - Today's Visit Information Type of service Follow-up Visit Follow-up Visit (Physician/SLUBBER OPERATOR (Physician/SLUBBER OPERATOR ) ) Arrival Mode Ambulatory, Ambulatory, Walker Walker Patient Identification Verified (Name & Yes Yes ) Height and Weight Body Mass Index (BMI) 21.0 21.0 BMI Classification Normal Normal Vital Signs Pulse Rate (60-100) 83 Pulse Location Monitor Monitor Respiratory Rate (12-18) 18 18 Respiratory rate source Observation Observation Oxygen Delivery Method Room Air Room Air Blood Pressure (90/60-120/80) 123/69 H Blood Pressure Mean (mm Hg) 87 Source Monitor Monitor Position Sitting Semi-Fowlers Blood Pressure Location Right Arm Left Arm History Since Last Visit- (Skip if this is Patient's initial visit) Have you changed medications since your No No last visit? Any new allergies or adverse reactions No No Had a fall/change in ADL's that may No No increase risk of falls Signs or symptoms of abuse and/or No No neglect since last visit Have you been in the hospital since your No No last visit? Has dressing in place as prescribed Yes Yes Has compression in place as prescribed Yes Yes Has offloadiing in place as prescribed No No Experienced any changes in pain level or No No management Left Footwear Regular Shoe Regular Shoe Right Footwear Regular Shoe Regular Shoe Pain Scale: 0-10 Numeric Is Patient Pain Free? Yes Yes JACK - Nurse 1 - General Ulcer Measurement Start: 06/11/23 13:11 Freq: Status: Active Protocol: Activity Type Activity Date Activity User E-sign Co-sign Detail Recorded Client Recorded Date Recorded By Document 06/11/23 13:11 KW Desktop 06/11/23 13:19 KW Document 06/18/23 13:58 KW [employer] 06/18/23 14:03 KW 06/11/23 06/18/23 13:11 13:58 Wound Center Nurse 1 #7 LT LAT LE -Current Size (cm) - Length 1.2 1.3 -Current Size (cm) - Width 0.7 0.9 -Current Size (cm) - Depth 0.1 0.1 -Total Square Cm 0.84 1.17 -Exudate Amt Medium Small -Exudate Type Serosanguineous Serosanguineous -Wound Margin Distinct, Distinct, Outline Outline Attached Attached -Texture (Kajal-wound Skin Appearance) Assessed Assessed -Moisture (Kajal-wound Skin Appearance) Assessed Assessed -Color (Kajal-wound Skin Appearance) Assessed Assessed -Temperature (Kajal-wound Skin No Abnormality No Abnormality Appearance) (Pt Warm) (Pt Warm) -Ulcer Cleansing Soap and Water Soap and Water -Foul Odor after Cleansing No -Anesthetic Used 5% Lidocaine 5% Lidocaine Gel Gel -Wound Comment(s) scabbed Left Calf (cm) 30 29.7 Left Ankle (cm) 20.5 20 WC - Nurse 2 - General Ulcer CM Notes Start: 06/11/23 13:11 Freq: Status: Active Protocol: Activity Type Activity Date Activity User E-sign Co-sign Detail Recorded Client Recorded Date Recorded By Document 06/11/23 13:41 Laptop 06/11/23 13:43 Document 06/18/23 14:21 Laptop 06/18/23 14:25 06/11/23 06/18/23 13:41 14:21 Wound Center Nurse 2 #7 LT LAT LE -Time 13:42 -Correct Patient Yes Yes -Correct Side, Site, Position Yes Yes -Correct Procedure Yes Yes -Procedure Performed Yes Yes -Type of Procedure Debridement Debridement -Clinical Debridement Subcutaneous Subcutaneous -Tissue Removed Subcutaneous Subcutaneous -Post Debridement (cm) - Length 1.0 0.5 -Post Debridement (cm) - Width 0.7 0.3 -Post Debridement (cm) - Depth 0.1 0.1 -Total Square (Post) (cm) 0.70 0.15 -Area of Debridement (cm) - Length 1.0 0.5 -Area of Debridement (cm) - Width 0.7 0.3 -Total Square (Area) (cm) 0.70 0.15 -Tunneling No No -Undermining/Tunneling No No -Circular Undermining No No -Wound/Ulcer Outcome Not Healed Not Healed -Ulcer Cleansing Rinsed/ Rinsed/ Irrigated with Irrigated with Saline Saline -Foul Odor after Cleansing No No -Bioengineered Tissue Yes Yes -Type of Bioengineered Tissue Epifix 18mm Epifix 18mm Disc Disc -Expiration Date 02/08/28 02/08/28 -Product Lot Number [id number] -Percent Used 100 100 -Lot number of Saline Used [id number] -Bleeding Controlled with Pressure Pressure -Treatment Response Procedure Procedure Tolerated Well Tolerated Well -Offloading No No -Debridement - Subq, 1st 20sq cm No No -Apply Skin Sub - 1st 25 sq cm - Legs 1 1 -Epifix 18mm Disc 3 3 Pain Scale: 0-10 Numeric Is Patient Pain Free? Yes Yes WC - Nurse 3 - General Ulcer D/C NN Start: 06/11/23 13:11 Freq: Status: Active Protocol: Activity Type Activity Date Activity User E-sign Co-sign Detail Recorded Client Recorded Date Recorded By Document 06/11/23 13:46 KW Desktop 06/11/23 13:47 KW Document 06/18/23 14:43 [facility] Desktop 06/18/23 14:43 [facility] 06/11/23 06/18/23 13:46 14:43 Wound Care Center Nurse 3 #7 LT LAT LE -Other Dressing epi -Primary Dressing Covered/Secured with Dry Gauze & Dry Gauze & Roll Gauze, Roll Gauze, Secured with Secured with Tape Tape Left -Tubular Bandage Double Layer Double Layer -Size of Tubigrip Used Size D Size D -Size D ($) 2 1 Treatment Response Procedure Tolerated Well Pain Scale: 0-10 Numeric Is Patient Pain Free? 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 All findings were discussed with the patient. All questions were answered to the patient's satisfaction. Excisional debridement down to and including subcutaneous tissue with a #15 blade to the left lateral leg without incident. Predebridement measurement was 0.4 x 0.2 x 0.1 cm. Postdebridement measurement is 0.5 x 0.3 x 0.1 cm. EpiFix 18 mm disc was applied to the left lateral full-thickness ulceration llvl076% use. Third application. The graft site was free and clear of any infection. The wound/skin graft substitute was dressed with nonadherent bandagesecured in place with Steri-Strips followed by bolster dressing as well as a double layer Tubigrip. Follow-up at the wound care center with Dr. Bernal in 1 week. (2) PVD (peripheral vascular disease): CODE(S): I73.9 - Peripheral vascular disease, unspecified 06/18/23 1530 <Electronically signed by Andie Bernal DPM> Cosigner Signature (if applicable): CC: ~ Signed [facility] Work Phone: 1(791) 894-306901-03-2024 Progress note Author Andie Bernal [facility] June 11, 2023 1:52pm Note Date/Time June 11, 2023 1: 52pm [facility] [address] [place] [address] Progress Note - Wound Care 06/11/23 1350 MR#: [id number] Acct: [id number] Name: ELY HURTADO Rep #:[id number] : 1940 83 From: Andie Magdaleno PM PCP: Dr. Karen Lang MD Status:R EG RCR Location: History of Present Illness Date of Service: 06/11/23 Chief Complaint: Nonhealing ulcer left lower extremity History of Wound: This is a 79-year-old white female known to me previously who was recently discharged from the [facility] in November 2018 who presents to the wound center today for nonhealing ulcer on her left lower extrtemity x 2 weeks. She has a past medical history which is significant for hypertension, venous insufficiency, vertigo and peripheral vascular disease. The patient has not been utilizing any intervention for wound care and has been wearing compression socks that are 15-20 mm Hg but has not been elevating her legs as much as she should. She denies any fever, chills, nausea, vomiting, shortness of breath, chest pain or pressure. Patient states she fell in her bathroom on [address] on and since then has had this open wound that will not heal. She is very touchy about having it debrided and touched. Subjective Subjective Mrs. Hurtado is a 83-year-old female with a chief complaint of a full-thickness wound to the left leg. She has been compliant with her dressing changes status is kept her compression stocking on bilaterally as well as keeping them clean dry and intact. She presents today for graft application. She denies any new onset of trauma. She denies any new ulcerations. She denies constitutional symptoms. No other pedal plaints at this time. Objective Data Objective Data Vital Signs: Vital Signs Temp Pulse Resp BP O2 Del Method 98.7 F 83 18 123/69 H Room Air 06/09/23 00:26 06/11/23 13:11 06/11/23 13:11 06/11/23 13:11 06/11/23 13:11 Oxygen Delivery Method Room Air Weight: 62.777 kg Body Mass Index (BMI) 21.0 Physical Exam Narrative Vascular: DP and PT pulses are faintly palpable. CFT is brisk. Evidence of varicosities appreciated bilateral lower extremity. Nonpitting edema appreciated left lower extremity. Skin temperature great is warm to cold from proximal ankle to distal digits to left lower extremity. Neurological: Light touch intact. Patient response to painful stimuli. Protective sensation is present. Dermatological: Full-thickness ulceration to the left lateral leg measuring 1.0 x 0.7 x 0.1 cm. Wound base is fibrogranular nature. No evidence of serous drainage. No evidence of erythema, proximal streaking or sign of infection. Excisional debridement down to and including subcutaneous tissue with a #15 blade to the left lateral leg without incident. Predebridement measurement was 0.8 x 0.6 x 0.1 cm. Postdebridement measurement is 1.0 x 0.7 x 0.1 cm. EpiFix 18 mm disc was applied to the left lateral full-thickness ulceration jnlg553% use. Second application. The graft site was free and clear of any infection. The wound/skin graft substitute was dressed with nonadherent bandagesecured in place with Steri-Strips followed by bolster dressing as well as a double layer Tubigrip. Musculoskeletal: Mild to moderate palpatory tenderness is appreciated to the full-thickness ulceration left leg. No pain with calf pressure. Debridement Note Debridement Note Debridement Free Text: Excisional debridement down to and including subcutaneoustissue with a #15 blade to the left lateral leg without incident. Predebridement measurement was 0.8 x 0.6 x 0.1 cm. Postdebridement measurement is 1.0 x 0.7 x 0.1 cm. EpiFix 18 mm disc was applied to the left lateral full-thickness ulceration [id number]% use. Second application. The graft site was free and clear of any infection. The wound/skin graft substitute was dressed with nonadherent bandagesecured in place with Steri-Strips followed by bolster dressing as well as a double layer Tubigrip. Post-Debridement Measurements and Additional Note: Post-Debridement Measurements/Treatment JACK - Nurse 1 - General Ulcer Assessment Start: 06/11/23 13:11 Freq: Status: Active Protocol: WC.LOWEXT Activity Type Activity Date Activity User E-sign Co-sign Detail Recorded Client Recorded Date Recorded By Document 06/11/23 13:11 [email or web address] 06/11/23 13:19 06/11/23 13:11 - Today's Visit Information Type of service Follow-up Visit (Physician/SLUBBER OPERATOR ) Arrival Mode Ambulatory, Walker Patient Identification Verified (Name & Yes ) Height and Weight Body Mass Index (BMI) 21.0 BMI Classification Normal Vital Signs Pulse Rate (60-100) 83 Pulse Location Monitor Respiratory Rate (12-18) 18 Respiratory rate source Observation Oxygen Delivery Method Room Air Blood Pressure (90/60-120/80) 123/69 H Blood Pressure Mean (mm Hg) 87 Source Monitor Position Sitting Blood Pressure Location Right Arm History Since Last Visit- (Skip if this is Patient's initial visit) Have you changed medications since your No last visit? Any new allergies or adverse reactions No Had a fall/change in ADL's that may No increase risk of falls Signs or symptoms of abuse and/or No neglect since last visit Have you been in the hospital since your No last visit? Has dressing in place as prescribed Yes Has compression in place as prescribed Yes Has offloadiing in place as prescribed No Experienced any changes in pain level or No management Left Footwear Regular Shoe Right Footwear Regular Shoe Pain Scale: 0-10 Numeric Is Patient Pain Free? Yes - Nurse 1 - General Ulcer Measurement Start: 06/11/23 13:11 Freq: Status: Active Protocol: Activity Type Activity Date Activity User E-sign Co-sign Detail Recorded Client Recorded Date Recorded By Document 06/11/23 13:11 [email or web address] 06/11/23 13:19 06/11/23 13:11 Wound Center Nurse 1 #7 LT LAT LE -Current Size (cm) - Length 1.2 -Current Size (cm) - Width 0.7 -Current Size (cm) - Depth 0.1 -Total Square Cm 0.84 -Exudate Amt Medium -Exudate Type Serosanguineous -Wound Margin Distinct, Outline Attached -Texture (Kajal-wound Skin Appearance) Assessed -Moisture (Kajal-wound Skin Appearance) Assessed -Color (Kajal-wound Skin Appearance) Assessed -Temperature (Kajal-wound Skin No Abnormality Appearance) (Pt Warm) -Ulcer Cleansing Soap and Water -Foul Odor after Cleansing No -Anesthetic Used 5% Lidocaine Gel Left Calf (cm) 30 Left Ankle (cm) 20.5 WC - Nurse 2 - General Ulcer CM Notes Start: 06/11/23 13:11 Freq: Status: Active Protocol: Activity Type Activity Date Activity User E-sign Co-sign Detail Recorded Client Recorded Date Recorded By Document 06/11/23 13:41 JF Laptop 06/11/23 13:43 JF 06/11/23 13:41 Wound Center Nurse 2 #7 LT LAT LE -Time 13:42 -Correct Patient Yes -Correct Side, Site, Position Yes -Correct Procedure Yes -Procedure Performed Yes -Type of Procedure Debridement -Clinical Debridement Subcutaneous -Tissue Removed Subcutaneous -Post Debridement (cm) - Length 1.0 -Post Debridement (cm) - Width 0.7 -Post Debridement (cm) - Depth 0.1 -Total Square (Post) (cm) 0.70 -Area of Debridement (cm) - Length 1.0 -Area of Debridement (cm) - Width 0.7 -Total Square (Area) (cm) 0.70 -Tunneling No -Undermining/Tunneling No -Circular Undermining No -Wound/Ulcer Outcome Not Healed -Ulcer Cleansing Rinsed/ Irrigated with Saline -Foul Odor after Cleansing No -Bioengineered Tissue Yes -Type of Bioengineered Tissue Epifix 18mm Disc -Expiration Date 02/08/28 -Product Lot Number [id number] -Percent Used 100 -Lot number of Saline Used [id number] -Bleeding Controlled with Pressure -Treatment Response Procedure Tolerated Well -Offloading No -Debridement - Subq, 1st 20sq cm No -Apply Skin Sub - 1st 25 sq cm - Legs 1 -Epifix 18mm Disc 3 Pain Scale: 0-10 Numeric Is Patient Pain Free? Yes WC - Nurse 3 - General Ulcer D/C NN Start: 06/11/23 13:11 Freq: Status: Active Protocol: Activity Type Activity Date Activity User E-sign Co-sign Detail Recorded Client Recorded Date Recorded By Document 06/11/23 13:46 KW Desktop 06/11/23 13:47 KW 06/11/23 13:46 Wound Care Center Nurse 3 #7 LT LAT LE -Primary Dressing Covered/Secured with Dry Gauze & Roll Gauze, Secured with Tape Left -Tubular Bandage Double Layer -Size of Tubigrip Used Size D -Size D ($) 2 Pain Scale: 0-10 Numeric Is Patient Pain Free? 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 All findings were discussed with the patient. All questions were answered to the patient's satisfaction. Excisional debridement down to and including subcutaneous tissue with a #15 blade to the left lateral leg without incident. Predebridement measurement was 0.8 x 0.6 x 0.1 cm. Postdebridement measurement is 1.0 x 0.7 x 0.1 cm. EpiFix 18 mm disc was applied to the left lateral full-thickness ulceration [id number]% use. Second application. The graft site was free and clear of any infection. The wound/skin graft substitute was dressed with nonadherent bandagesecured in place with Steri-Strips followed by bolster dressing as well as a double layer Tubigrip. Follow-up at the wound care center with Dr. Bernal in 1 week. (2) PVD (peripheral vascular disease): CODE(S): I73.9 - Peripheral vascular disease, unspecified 06/11/23 1352 <Electronically signed by Andie Bernal DPM> Cosigner Signature (if applicable): CC: ~ Signed [facility] Work Phone: 1(966) 498-507812-27-2023 Progress note Author Andie Bernal [facility] June 04, 2023 1:36pm Note Date/Time June 04, 2023 1:36pm [facility] [address] [place] [id number] Progress Note - Wound Care 06/04/23 1333 MR#: [id number] Acct: [id number] Name: ELY HURTADO Rep #:[id number] : 1940 83 From: Andie Magdaleno PM PCP: Dr. Karen Lang MD Status:R EG RCR Location: History of Present Illness Date of Service: 06/04/23 Chief Complaint: Nonhealing ulcer left lower extremity History of Wound: This is a 79-year-old white female known to me previously who was recently discharged from the [facility] in November 2018 who presents to the wound center today for nonhealing ulcer on her left lower extrtemity x 2 weeks. She has a past medical history which is significant for hypertension, venous insufficiency, vertigo and peripheral vascular disease. The patient has not been utilizing any intervention for wound care and has been wearing compression socks that are 15-20 mm Hg but has not been elevating her legs as much as she should. She denies any fever, chills, nausea, vomiting, shortness of breath, chest pain or pressure. Patient states she fell in her bathroom on [address] on and since then has had this open wound that will not heal. She is very touchy about having it debrided and touched. Subjective Subjective Mrs. Hurtado is a 83-year-old female with a chief complaint of a full-thickness wound to the left leg. She has been compliant with her dressing changes status is kept her compression stocking on bilaterally as well as keeping them clean dry and intact. She presents today for graft application and she has been approved. She denies any new onset of trauma. She denies any new ulcerations. She denies constitutional symptoms. No other pedal plaints at this time. Objective Data Objective Data Vital Signs: Vital Signs Temp Pulse Resp BP O2 Del Method 98.7 F 89 20 H 116/67 Room Air 06/04/23 13:12 06/04/23 13:12 06/04/23 13:12 06/04/23 13:12 05/28/23 13:02 Oxygen Delivery Method Room Air Weight: 62.777 kg Body Mass Index (BMI) 21.0 Lab / Micro Data Micro: Microbiology 05/22/23 13:57 Wound - Leg, Left Gram Stain - Final 05/22/23 13:57 Wound - Leg, Left Wound Culture - Preliminary Gram Positive Cocci Staphylococcus lugdunensis 05/22/23 13:57 Wound - Leg, Left Anaerobic Culture - Final No anaerobic bacteria isolated. Physical Exam Narrative Vascular: DP and PT pulses are faintly palpable. CFT is brisk. Evidence of varicosities appreciated bilateral lower extremity. Nonpitting edema appreciated left lower extremity. Skin temperature great is warm to cold from proximal ankle to distal digits to left lower extremity. Neurological: Light touch intact. Patient response to painful stimuli. Protective sensation is present. Dermatological: Full-thickness ulceration to the left lateral leg measuring 1.1 x 1.0 x 0.1 cm. Wound base is fibrogranular nature. No evidence of serous drainage. No evidence of erythema, proximal streaking or sign of infection. Excisional debridement down to and including subcutaneous tissue with a #15 blade to the left lateral leg without incident. Predebridement measurement was 0.9 x 0.9 x 0.1 cm. Postdebridement measurement is 1.1 x 1.0 x 0.1 cm. EpiFix 18 mm disc was applied to the left lateral full-thickness ulceration [id number]% use. First application. The graft site was free and clear of any infection. The wound/skin graft substitute was dressed with nonadherent bandagesecured in place with Steri-Strips followed by bolster dressing as well as a double layer Tubigrip. Musculoskeletal: Mild to moderate palpatory tenderness is appreciated to the full-thickness ulceration left leg. No pain with calf pressure. Debridement Note Debridement Note Debridement Free Text: Excisional debridement down to and including subcutaneoustissue with a #15 blade to the left lateral leg without incident. Predebridement measurement was 0.9 x 0.9 x 0.1 cm. Postdebridement measurement is 1.1 x 1.0 x 0.1 cm. EpiFix 18 mm disc was applied to the left lateral full-thickness ulceration [id number]% use. First application. The graft site was free and clear of any infection. The wound/skin graft substitute was dressed with nonadherent bandagesecured in place with Steri-Strips followed by bolster dressing as well as a double layer Tubigrip. Post-Debridement Measurements and Additional Note: Post-Debridement Measurements/Treatment WC - Nurse 1 - General Ulcer Assessment Start: 05/21/23 13:12 Freq: Status: Active Protocol: LOWEXT Activity Type Activity Date Activity User E-sign Co-sign Detail Recorded Client Recorded Date Recorded By Document 05/21/23 13:12 KW Desktop 05/21/23 13:36 KW Edit Result 05/21/23 13:12 KW (1) Desktop 05/21/23 13:39 KW Document 05/28/23 13:02 BMF Desktop 05/28/23 13:07 BMF Document 06/04/23 13:12 DL Desktop 06/04/23 13:17 DL (1) Height => 5 ft 8 in Weight => 62.777 kg Weight in Pounds => 138.4 lbs Body Mass Index (BMI) => 21.0 BMI Classification => Normal BSA - Brittany => 1.75 05/21/23 05/28/23 06/04/23 13:12 13:02 13:12 WC - Today's Visit Information Type of service Initial Visit Follow-up Visit Follow-up Visit (Physician/SLUBBER OPERATOR (Physician/SLUBBER OPERATOR ) ) Arrival Mode Ambulatory, Ambulatory, Ambulatory, Walker Walker Walker Transfer Assistance None None Patient Identification Verified (Name & Yes Yes Yes ) Patient Requires Transmission-Based No No Precautions Height and Weight Height 5 ft 8 in Weight 62.777 kg Weight in Pounds 138.4 lbs Body Mass Index (BMI) 21.0 21.0 21.0 BMI Classification Normal Normal Normal BSA - Brittany 1.75 Vital Signs Temperature (97.8 F-99.1 F) 96.8 F L 98.7 F Temperature Source Temporal Temporal Pulse Rate (60-100) 86 90 89 Pulse Location Monitor Monitor Monitor Respiratory Rate (12-18) 18 16 20 H Respiratory rate source Observation Observation Observation Oxygen Delivery Method Room Air Room Air Blood Pressure (90/60-120/80) 139/102 H 131/88 H 116/67 Blood Pressure Mean (mm Hg) 114 102 83 Source Monitor Monitor Monitor Position Semi-Fowlers Sitting Blood Pressure Location Right Arm Left Arm History Since Last Visit- (Skip if this is Patient's initial visit) Have you changed medications since your No No last visit? Any new allergies or adverse reactions No No Had a fall/change in ADL's that may No No increase risk of falls Signs or symptoms of abuse and/or No No neglect since last visit Have you been in the hospital since your No No last visit? Has dressing in place as prescribed Yes Yes Has compression in place as prescribed Yes Yes Has offloadiing in place as prescribed N/A N/A Experienced any changes in pain level or No No management Left Footwear Regular Shoe Regular Shoe Right Footwear Regular Shoe Regular Shoe Pain Scale: 0-10 Numeric Is Patient Pain Free? Yes Yes Yes Lower Extremity Assessment/ Foot Assessment/ Toe Nail Assessment Right -Posterior Tibial Doppler Monophasic -Dorsalis Pedis Doppler Multiphasic -Extremity Color Hemosiderin -Hair Growth on Legs Yes -Capillary Refill Greater than 3 Seconds Left -Posterior Tibial Doppler Inaudible -Dorsalis Pedis Doppler Multiphasic -Extremity Color Hemosiderin -Hair Growth on Legs Yes -Capillary Refill Greater than 3 Seconds Communication Assessment Preferred language Romanian Able to Read Yes Able to Write Yes Communication Tools None Caregiver Communication Skills No Impairment Impairment Right Hearing Abillity Normal Left Hearing Abillity Normal Visual Assistive Devices Glasses Teaching Assessment Preferences Verbal,Written, Demonstration Barriers to Learning None Readiness To Learn Excellent Willingness to Engage in Self Management High Activies Readiness to Engage in Self Management High Activities Anxiety Level Calm Cooperation Cooperative Perception Coherent Interest in Health Problem Asks Questions Education Importance Acknowledges Need Does Patient Smoke tobacco or other Yes substances Smoking Status Never smoker Is Patient Diabetic No Functional Assessment Recent Decline in Ability to Perform Denies Any Declines Culture/Confucianist/Tumbler Tender Cultural/Confucianist Needs that may affect No Treatment Plan Would you allow our hospital day haul or farm charter bus driver to No meet you for the purpose of spiritual/ emotional support? Tumbler Tender to contact place of rastafari No WC - Nurse 1 - General Ulcer Measurement Start: 05/21/23 13:12 Freq: Status: Active Protocol: Activity Type Activity Date Activity User E-sign Co-sign Detail Recorded Client Recorded Date Recorded By Document 05/21/23 13:12 KW Desktop 05/21/23 13:36 KW Document 05/28/23 13:02 [facility] Desktop 05/28/23 13:07 BMF Document 06/04/23 13:12 DL Desktop 06/04/23 13:17 DL 05/21/23 05/28/23 06/04/23 13:12 13:02 13:12 Wound Center Nurse 1 #7 LT LAT LE -Combined with other wound No -Current Size (cm) - Length 1.4 1.2 1.1 -Current Size (cm) - Width 1.2 0.9 0.8 -Current Size (cm) - Depth 0.2 0.2 0.2 -Total Square Cm 1.68 1.08 0.88 -Date of Last Picture (Recall this 05/28/23 field) -Photo Taken Yes Yes -Epithelialization None Present -Tunneling No -Undermining/Tunneling No -Circular Undermining No -Exudate Amt Small Medium Small -Exudate Type Serosanguineous Serosanguineous Serosanguineous -Wound Margin Distinct, Distinct, Distinct, Outline Outline Outline Attached Attached Attached -Granulation Amt Small (1-33%) Small (1-33%) Small (1-33%) -Granulation Quality Marie Red Marie -Slough/Fibrin Yes -Necrosis Amt Large (67-100%) Large (67-100%) Large (67-100%) -Necrotic Tissue Type Adherent Slough Adherent Slough Adherent Slough -Structure Exposed N/A -Texture (Kajal-wound Skin Appearance) Assessed Assessed, Scarring Fluctuance -Moisture (Kajal-wound Skin Appearance) Assessed Assessed,Dry/ Dry/Scaly Scaly -Color (Kajal-wound Skin Appearance) Assessed Assessed Hemosiderin Staining -Temperature (Kajal-wound Skin No Abnormality Appearance) (Pt Warm) -Tenderness on Palpation (Kajal-wound No Skin Appearance) -Ulcer Cleansing Soap and Water Rinsed/ Rinsed/ Irrigated with Irrigated with Saline Saline -Foul Odor after Cleansing No No -Anesthetic Used 5% Lidocaine 5% Lidocaine 5% Lidocaine Gel Gel Gel Right Calf (cm) 31.2 30.7 Right Ankle (cm) 20.6 20.6 Left Calf (cm) 32.6 30.6 29.5 Left Ankle (cm) 21.0 20.2 20.3 WC - Nurse 2 - General Ulcer CM Notes Start: 05/21/23 13:12 Freq: Status: Active Protocol: Activity Type Activity Date Activity User E-sign Co-sign Detail Recorded Client Recorded Date Recorded By Document 05/21/23 14:05 Desktop 05/21/23 14:06 Document 05/28/23 13:13 Laptop 05/28/23 13:15 05/21/23 05/28/23 14:05 13:13 Wound Center Nurse 2 #7 LT LAT LE -Time 14:06 13:13 -Correct Patient Yes Yes -Correct Side, Site, Position Yes Yes -Correct Procedure Yes Yes -Procedure Performed Yes Yes -Type of Procedure Debridement Debridement -Clinical Debridement Subcutaneous Subcutaneous -Tissue Removed Subcutaneous Subcutaneous -Post Debridement (cm) - Length 1.8 1.4 -Post Debridement (cm) - Width 1.3 1.0 -Post Debridement (cm) - Depth 0.2 0.2 -Total Square (Post) (cm) 2.34 1.40 -Area of Debridement (cm) - Length 1.8 1.4 -Area of Debridement (cm) - Width 1.3 1.0 -Total Square (Area) (cm) 2.34 1.40 -Tunneling No No -Undermining/Tunneling No No -Circular Undermining No No -Wound/Ulcer Outcome Not Healed Not Healed -Ulcer Cleansing Rinsed/ Rinsed/ Irrigated with Irrigated with Saline Saline -Foul Odor after Cleansing No No -Bioengineered Tissue No No -Bleeding Controlled with Pressure Pressure -Treatment Response Procedure Procedure Tolerated Well Tolerated Well -Offloading No No -Debridement - Subq, 1st 20sq cm Yes Yes Pain Scale: 0-10 Numeric Is Patient Pain Free? Yes Yes - Nurse 3 - General Ulcer D/C NN Start: 05/21/23 13:12 Freq: Status: Active Protocol: Activity Type Activity Date Activity User E-sign Co-sign Detail Recorded Client Recorded Date Recorded By Document 05/21/23 14:24 DL [id number] 05/21/23 14:25 DL Document 05/28/23 13:23 [facility] Desktop 05/28/23 13:24 [facility] 05/21/23 05/28/23 14:24 13:23 Wound Care Center Nurse 3 #7 LT LAT LE -Ulcer Cleansing Rinsed/ Rinsed/ Irrigated with Irrigated with Saline Saline -Foul Odor after Cleansing No No -Other Dressing wet to dry HYDROGEL -Primary Dressing Covered/Secured with Dry Gauze & Dry Gauze & Roll Gauze, Roll Gauze, Secured with Secured with Tape Tape Left -Tubular Bandage Double Layer -Size of Tubigrip Used Size D -Size D ($) 2 -Other DOUBLE LAYER D ON RLE ON ALREADY AND IN GOOD CONDITION David -Tubular Bandage Single Layer -Size of Tubigrip Used Size D -Size D ($) 1 Treatment Response Procedure Procedure Tolerated Well Tolerated Well Pain Scale: 0-10 Numeric Is Patient Pain Free? Yes Yes - Visit Discharge Discharge Condition Stable Stable Ambulatory Status Ambulatory, Ambulatory, Walker Walker Transportation Private Auto Notes: Pt to apply santyl when available. 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 All findings were discussed with the patient. All questions were answered to the patient's satisfaction. Excisional debridement down to and including subcutaneous tissue with a #15 blade to the left lateral leg without incident. Predebridement measurement was 0.9 x 0.9 x 0.1 cm. Postdebridement measurement is 1.1 x 1.0 x 0.1 cm. EpiFix 18 mm disc was applied to the left lateral full-thickness ulceration [id number]% use. First application. The graft site was free and clear of any infection. The wound/skin graft substitute was dressed with nonadherent bandagesecured in place with Steri-Strips followed by bolster dressing as well as a double layer Tubigrip. Follow-up at the wound care center with Dr. Bernal in 1 week. (2) PVD (peripheral vascular disease): CODE(S): I73.9 - Peripheral vascular disease, unspecified 06/04/23 1336 <Electronically signed by Andie Bernal DPM> Cosigner Signature (if applicable): CC: ~ Signed [facility] Work Phone: 1(597) 220-622812-20-2023 Progress note Author Andie Bernal [facility] May 28, 2023 1:22pm Note Date/Time May 28, 2023 1:22pm [facility] [address] [place] [address] Progress Note - Wound Care 05/28/23 1317 MR#: [id number] Acct: [id number] Name: ELY HURTADO Rep #:[id number] : 1940 83 From: Andie Bernal D PM PCP: Dr. Karen Lang MD Status:R RCR Location: History of Present Illness Date of Service: 05/28/23 Chief Complaint: Nonhealing ulcer left lower extremity History of Wound: This is a 79-year-old white female known to me previously who was recently discharged from the [facility] in November 2018 who presents to the wound center today for nonhealing ulcer on her left lower extrtemity x 2 weeks. She has a past medical history which is significant for hypertension, venous insufficiency, vertigo and peripheral vascular disease. The patient has not been utilizing any intervention for wound care and has been wearing compression socks that are 15-20 mm Hg but has not been elevating her legs as much as she should. She denies any fever, chills, nausea, vomiting, shortness of breath, chest pain or pressure. Patient states she fell in her bathroom on [address] on and since then has had this open wound that will not heal. She is very touchy about having it debrided and touched. Subjective Subjective Mrs. Hurtado is a 83-year-old female presenting for follow-up evaluation to the wound care center for a left lower extremity ulceration. Patient has been getting dressing changes at her half-way facility through nursing staff with Santyl and dry sterile dressing and single-layer Tubigrip. Cultures have returned and show evidence of bacterial growth and has been placed on doxycycline by Dr. Bernal for 2 weeks. Will begin ordering skin graft substitutes. Patient's vascular studies have returned and we will evaluate themwith the patient while in clinic. She denies trauma. Denies constitutional symptoms. No other pedal complaints at this time. Objective Data Objective Data Vital Signs: Vital Signs Temp Pulse Resp BP O2 Del Method 96.8 F L 90 16 131/88 H Room Air 05/21/23 13:12 05/28/23 13:02 05/28/23 13:02 05/28/23 13:02 05/28/23 13:02 Oxygen Delivery Method Room Air Weight: 62.777 kg Body Mass Index (BMI) 21.0 Lab / Micro Data Micro: Microbiology 05/22/23 13:57 Wound - Leg, Left Gram Stain - Final 05/22/23 13:57 Wound - Leg, Left Wound Culture - Preliminary Gram Positive Cocci Staphylococcus lugdunensis 05/22/23 13:57 Wound - Leg, Left Anaerobic Culture - Final No anaerobic bacteria isolated. Radiography Diagnostic Testing: Radiology Impression Extremity Arterial Study 05/27/23 13:23 Interpretation Summary Triphasic Doppler waveforms are noted at ankle level bilaterally. Pulse-volume recordings appear diminished at digital level bilaterally, but satisfactory at all other levels bilaterally. Resting ankle-brachial indices are normal bilaterally. Digital-brachial indices are normal bilaterally. There is no evidence of significant arterial occlusive disease in the lower extremities bilaterally. Ordering Physician: Andie Bernal Referring Physician: ANDIE BERNAL DPM Performed By: Neel Polk RVT Venous Doppler Study 05/27/23 13:23 Interpretation Summary Deep veins of the lower extremities are bilaterally patent and compressible segmentally. There is no evidence of deep vein thrombosis on either side. Valvular competence appears intact within the proximal deep venous systems bilaterally. The great saphenous veins appear bilaterally patent and compressible segmentally. The right sapheno-femoral junction is incompetent . The left sapheno- femoral junction is competent . The right great saphenous vein appears segmentally competent. The left great saphenous vein appears segmentally incompetent. The right small saphenous vein is patent and incompetent. The left small saphenous vein is patent and competent. The accessory saphenous vein in the left mid-calf is incompetent. Deep veins in the left distal calf were notvisualized due to the presence of wounds and bandages. Ordering Physician: Andie Bernal Referring Physician: Dianna Guido Performed By: Neel Polk, MIRTHA Physical Exam Narrative Vascular: DP and PT pulses are faintly palpable. CFT is brisk. Evidence of varicosities appreciated bilateral lower extremity. Nonpitting edema appreciated left lower extremity. Skin temperature great is warm to cold from proximal ankle to distal digits to left lower extremity. Neurological: Light touch intact. Patient response to painful stimuli. Protective sensation is present. Dermatological: Full-thickness ulceration to the left lateral leg measuring 1.4 x 1.0 x 0.2 cm. Wound base is fibrogranular nature. No evidence of serous drainage. No evidence of erythema, proximal streaking or sign of infection. Excisional debridement down to and including subcutaneous tissue with a number 5mm dermal curette to left lateral ulceration left leg. Predebridement measurement is 1.3 x 0.9 x 0.1 cm. Postdebridement measurement is 1.4 x 1.0 x 0.2 cm. Musculoskeletal: Mild to moderate palpatory tenderness is appreciated to the full-thickness ulceration left leg. No pain with calf pressure. Debridement Note Debridement Note Debridement Free Text: Excisional debridement down to and including subcutaneoustissue with a number 5 mm dermal curette to left lateral ulceration left leg. Predebridement measurement is 1.3 x 0.9 x 0.1 cm. Postdebridement measurement is 1.4 x 1.0 x 0.2 cm. Post-Debridement Measurements and Additional Note: Post-Debridement Measurements/Treatment - Nurse 1 - General Ulcer Assessment Start: 05/21/23 13:12 Freq: Status: Active Protocol: WC.LOWEXT Activity Type Activity Date Activity User E-sign Co-sign Detail Recorded Client Recorded Date Recorded By Document 05/21/23 13:12 KW Desktop 05/21/23 13:36 KW Edit Result 05/21/23 13:12 KW (1) Desktop 05/21/23 13:39 KW Document 05/28/23 13:02 BMF Desktop 05/28/23 13:07 BMF (1) Height => 5 ft 8 in Weight => 62.777 kg Weight in Pounds => 138.4 lbs Body Mass Index (BMI) => 21.0 BMI Classification => Normal BSA - Brittany => 1.75 05/21/23 05/28/23 13:12 13:02 WC - Today's Visit Information Type of service Initial Visit Follow-up Visit (Physician/SLUBBER OPERATOR ) Arrival Mode Ambulatory, Ambulatory, Walker Walker Transfer Assistance None Patient Identification Verified (Name & Yes Yes ) Patient Requires Transmission-Based No Precautions Height and Weight Height 5 ft 8 in Weight 62.777 kg Weight in Pounds 138.4 lbs Body Mass Index (BMI) 21.0 21.0 BMI Classification Normal Normal BSA - Brittany 1.75 Vital Signs Temperature (97.8 F-99.1 F) 96.8 F L Temperature Source Temporal Pulse Rate (60-100) 86 90 Pulse Location Monitor Monitor Respiratory Rate (12-18) 18 16 Respiratory rate source Observation Observation Oxygen Delivery Method Room Air Room Air Blood Pressure (90/60-120/80) 139/102 H 131/88 H Blood Pressure Mean (mm Hg) 114 102 Source Monitor Monitor Position Semi-Fowlers Sitting Blood Pressure Location Right Arm Left Arm History Since Last Visit- (Skip if this is Patient's initial visit) Have you changed medications since your No last visit? Any new allergies or adverse reactions No Had a fall/change in ADL's that may No increase risk of falls Signs or symptoms of abuse and/or No neglect since last visit Have you been in the hospital since your No last visit? Has dressing in place as prescribed Yes Has compression in place as prescribed Yes Has offloadiing in place as prescribed N/A Experienced any changes in pain level or No management Left Footwear Regular Shoe Regular Shoe Right Footwear Regular Shoe Regular Shoe Pain Scale: 0-10 Numeric Is Patient Pain Free? Yes Yes Lower Extremity Assessment/ Foot Assessment/ Toe Nail Assessment Right -Posterior Tibial Doppler Monophasic -Dorsalis Pedis Doppler Multiphasic -Extremity Color Hemosiderin -Hair Growth on Legs Yes -Capillary Refill Greater than 3 Seconds Left -Posterior Tibial Doppler Inaudible -Dorsalis Pedis Doppler Multiphasic -Extremity Color Hemosiderin -Hair Growth on Legs Yes -Capillary Refill Greater than 3 Seconds Communication Assessment Preferred language Romanian Able to Read Yes Able to Write Yes Communication Tools None Caregiver Communication Skills No Impairment Impairment Right Hearing Abillity Normal Left Hearing Abillity Normal Visual Assistive Devices Glasses Teaching Assessment Preferences Verbal,Written, Demonstration Barriers to Learning None Readiness To Learn Excellent Willingness to Engage in Self Management High Activies Readiness to Engage in Self Management High Activities Anxiety Level Calm Cooperation Cooperative Perception Coherent Interest in Health Problem Asks Questions Education Importance Acknowledges Need Does Patient Smoke tobacco or other Yes substances Smoking Status Never smoker Is Patient Diabetic No Functional Assessment Recent Decline in Ability to Perform Denies Any Declines Culture/Confucianist/Tumbler Tender Cultural/Confucianist Needs that may affect No Treatment Plan Would you allow our hospital day haul or farm charter bus driver to No meet you for the purpose of spiritual/ emotional support? Tumbler Tender to contact place of rastafari No WC - Nurse 1 - General Ulcer Measurement Start: 05/21/23 13:12 Freq: Status: Active Protocol: Activity Type Activity Date Activity User E-sign Co-sign Detail Recorded Client Recorded Date Recorded By Document 05/21/23 13:12 KW Desktop 05/21/23 13:36 KW Document 05/28/23 13:02 BMF Desktop 05/28/23 13:07 BMF 05/21/23 05/28/23 13:12 13:02 Wound Center Nurse 1 #7 LT LAT LE -Combined with other wound No -Current Size (cm) - Length 1.4 1.2 -Current Size (cm) - Width 1.2 0.9 -Current Size (cm) - Depth 0.2 0.2 -Total Square Cm 1.68 1.08 -Date of Last Picture (Recall this 05/28/23 field) -Photo Taken Yes Yes -Epithelialization None Present -Tunneling No -Undermining/Tunneling No -Circular Undermining No -Exudate Amt Small Medium -Exudate Type Serosanguineous Serosanguineous -Wound Margin Distinct, Distinct, Outline Outline Attached Attached -Granulation Amt Small (1-33%) Small (1-33%) -Granulation Quality Marie Red -Slough/Fibrin Yes -Necrosis Amt Large (67-100%) Large (67-100%) -Necrotic Tissue Type Adherent Slough Adherent Slough -Texture (Kajal-wound Skin Appearance) Assessed Assessed, Fluctuance -Moisture (Kajal-wound Skin Appearance) Assessed Assessed,Dry/ Scaly -Color (Kajal-wound Skin Appearance) Assessed Assessed -Temperature (Kajal-wound Skin No Abnormality Appearance) (Pt Warm) -Tenderness on Palpation (Kajal-wound No Skin Appearance) -Ulcer Cleansing Soap and Water Rinsed/ Irrigated with Saline -Foul Odor after Cleansing No -Anesthetic Used 5% Lidocaine 5% Lidocaine Gel Gel Right Calf (cm) 31.2 Right Ankle (cm) 20.6 Left Calf (cm) 32.6 30.6 Left Ankle (cm) 21.0 20.2 - Nurse 2 - General Ulcer CM Notes Start: 05/21/23 13:12 Freq: Status: Active Protocol: Activity Type Activity Date Activity User E-sign Co-sign Detail Recorded Client Recorded Date Recorded By Document 05/21/23 14:05 Desktop 05/21/23 14:06 Document 05/28/23 13:13 Laptop 05/28/23 13:15 05/21/23 05/28/23 14:05 13:13 Wound Center Nurse 2 #7 LT LAT LE -Time 14:06 13:13 -Correct Patient Yes Yes -Correct Side, Site, Position Yes Yes -Correct Procedure Yes Yes -Procedure Performed Yes Yes -Type of Procedure Debridement Debridement -Clinical Debridement Subcutaneous Subcutaneous -Tissue Removed Subcutaneous Subcutaneous -Post Debridement (cm) - Length 1.8 1.4 -Post Debridement (cm) - Width 1.3 1.0 -Post Debridement (cm) - Depth 0.2 0.2 -Total Square (Post) (cm) 2.34 1.40 -Area of Debridement (cm) - Length 1.8 1.4 -Area of Debridement (cm) - Width 1.3 1.0 -Total Square (Area) (cm) 2.34 1.40 -Tunneling No No -Undermining/Tunneling No No -Circular Undermining No No -Wound/Ulcer Outcome Not Healed Not Healed -Ulcer Cleansing Rinsed/ Rinsed/ Irrigated with Irrigated with Saline Saline -Foul Odor after Cleansing No No -Bioengineered Tissue No No -Bleeding Controlled with Pressure Pressure -Treatment Response Procedure Procedure Tolerated Well Tolerated Well -Offloading No No -Debridement - Subq, 1st 20sq cm Yes Yes Pain Scale: 0-10 Numeric Is Patient Pain Free? Yes Yes - Nurse 3 - General Ulcer D/C NN Start: 05/21/23 13:12 Freq: Status: Active Protocol: Activity Type Activity Date Activity User E-sign Co-sign Detail Recorded Client Recorded Date Recorded By Document 05/21/23 14:24 DL [id number] 05/21/23 14:25 DL 05/21/23 14:24 Wound Care Center Nurse 3 #7 LT LAT LE -Ulcer Cleansing Rinsed/ Irrigated with Saline -Foul Odor after Cleansing No -Other Dressing wet to dry -Primary Dressing Covered/Secured with Dry Gauze & Roll Gauze, Secured with Tape David -Tubular Bandage Single Layer -Size of Tubigrip Used Size D -Size D ($) 1 Treatment Response Procedure Tolerated Well Pain Scale: 0-10 Numeric Is Patient Pain Free? Yes WC - Visit Discharge Discharge Condition Stable Ambulatory Status Ambulatory, Walker Notes: Pt to apply santyl when available. 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 All findings were discussed with the patient. All questions were answered to the patient's satisfaction. Excisional debridement down to and including subcutaneous tissue with a number 5mm dermal curette to left lateral ulceration left leg. Predebridement measurement is 1.3 x 0.9 x 0.1 cm. Postdebridement measurement is 1.4 x 1.0 x 0.2 cm. The ulceration was dressed with Santyl, saline wet-to-dry and a double layer Tubigrip was applied. [facility] She will continue to take the doxycycline as written. After reviewing the patient's venous studies there shows evidence of incompetence to the SFJ of the right lower extremity as well as the SSV of the proximal calf. Left lower extremity shows evidence of incompetence to the GSV as well as ASV of the left lower extremity. The patient's arterial studies to show triphasic waveforms bilateral. The rightABI is 1.2, left HARRISON is 1.16, the right TBI 0.86, left TBI is 0.92. Follow-up in 1 week. (2) PVD (peripheral vascular disease): CODE(S): I73.9 - Peripheral vascular disease, unspecified (3) Cellulitis of left lower extremity: CODE(S): L03.116 - Cellulitis of left lower limb 05/28/23 1322 <Electronically signed by Andie Bernal DPM> Cosigner Signature (if applicable): CC: ~ Signed [facility] Work Phone: 1(315) 989-291712-13-2023 Progress note Author Andie [facility] May 21, 2023 3:47pm Note Date/Time May 21, 2023 3:41pm [facility] [address] [place] [address] Progress Note - Wound Care 05/21/23 1535 MR#: [id number] Acct: [id number] Name: ELY HURTADO Rep #:[id number] : 1940 83 From: Andie DE LA TORRE PCP: Dr. Karen Lang MD Status:R EG RCR Location: History of Present Illness Date of Service: 05/21/23 Chief Complaint: Nonhealing ulcer left lower extremity History of Wound: This is a 79-year-old white female known to me previously who was recently discharged from the [facility] in November 2018 who presents to the wound center today for nonhealing ulcer on her left lower extrtemity x 2 weeks. She has a past medical history which is significant for hypertension, venous insufficiency, vertigo and peripheral vascular disease. The patient has not been utilizing any intervention for wound care and has been wearing compression socks that are 15-20 mm Hg but has not been elevating her legs as much as she should. She denies any fever, chills, nausea, vomiting, shortness of breath, chest pain or pressure. Patient states she fell in her bathroom on [address] on and since then has had this open wound that will not heal. She is very touchy about having it debrided and touched. Subjective Subjective Ms. Hurtado is a 83-year-old female presenting to the wound care center today for follow-up and evaluation of left full-thickness ulceration of the leg. Patient states the wound has been present for a long period of time. She currently resides at a nursing facility where she has been getting daily dressing changes by the nursing staff. She states the wound has been chronic innature. She denies any onset of trauma. Skin is unsure how the ulceration got to her left leg and states it just appeared. She has not taken any antibiotics for the wound. She denies constitutional symptoms. No other pedal complaints at this time. Objective Data Objective Data Vital Signs: Vital Signs Temp Pulse Resp BP O2 Del Method 96.8 F L 86 18 139/102 H Room Air 05/21/23 13:12 05/21/23 13:12 05/21/23 13:12 05/21/23 13:12 05/21/23 13:12 Oxygen Delivery Method Room Air Weight: 62.777 kg Body Mass Index (BMI) 21.0 Physical Exam Narrative Vascular: DP and PT pulses are faintly palpable. CFT is brisk. Evidence of varicosities appreciated bilateral lower extremity. Nonpitting edema appreciated left lower extremity. Skin temperature great is warm to cold from proximal ankle to distal digits to left lower extremity. Neurological: Light touch intact. Patient response to painful stimuli. Protective sensation is present. Dermatological: Full-thickness ulceration to the left lateral leg measuring 1.8 x 1.3 x 0.2 cm. Wound base is fibrogranular nature. No evidence of serous drainage. No evidence of erythema, proximal streaking or sign of infection. Excisional debridement down to and including subcutaneous tissue with a number 5mm dermal curette to left lateral ulceration left leg. Predebridement measurement is 1.6 x 1.2 x 0.1 cm. Postdebridement measurement is 1.8 x 1.3 x 0.2 cm. Musculoskeletal: Mild to moderate palpatory tenderness is appreciated to the full-thickness ulceration left leg. No pain with calf pressure. Debridement Note Debridement Note Debridement Free Text: Excisional debridement down to and including subcutaneoustissue with a number 5 mm dermal curette to left lateral ulceration left leg. Predebridement measurement is 1.6 x 1.2 x 0.1 cm. Postdebridement measurement is 1.8 x 1.3 x 0.2 cm. Post-Debridement Measurements and Additional Note: Post-Debridement Measurements/Treatment WC - Nurse 1 - General Ulcer Assessment Start: 05/21/23 13:12 Freq: Status: Active Protocol: JACK.[email or web address] Activity Type Activity Date Activity User E-sign Co-sign Detail Recorded Client Recorded Date Recorded By Document 05/21/23 13:12 KW Desktop 05/21/23 13:36 KW Edit Result 05/21/23 13:12 KW (1) Desktop 05/21/23 13:39 KW (1) Height => 5 ft 8 in Weight => 62.777 kg Weight in Pounds => 138.4 lbs Body Mass Index (BMI) => 21.0 BMI Classification => Normal BSA - Brittany => 1.75 05/21/23 13:12 WC - Today's Visit Information Type of service Initial Visit Arrival Mode Ambulatory, Walker Patient Identification Verified (Name & Yes ) Height and Weight Height 5 ft 8 in Weight 62.777 kg Weight in Pounds 138.4 lbs Body Mass Index (BMI) 21.0 BMI Classification Normal BSA - Brittany 1.75 Vital Signs Temperature (97.8 F-99.1 F) 96.8 F L Temperature Source Temporal Pulse Rate (60-100) 86 Pulse Location Monitor Respiratory Rate (12-18) 18 Respiratory rate source Observation Oxygen Delivery Method Room Air Blood Pressure (90/60-120/80) 139/102 H Blood Pressure Mean (mm Hg) 114 Source Monitor Position Semi-Fowlers Blood Pressure Location Right Arm History Since Last Visit- (Skip if this is Patient's initial visit) Left Footwear Regular Shoe Right Footwear Regular Shoe Pain Scale: 0-10 Numeric Is Patient Pain Free? Yes Lower Extremity Assessment/ Foot Assessment/ Toe Nail Assessment Right -Posterior Tibial Doppler Monophasic -Dorsalis Pedis Doppler Multiphasic -Extremity Color Hemosiderin -Hair Growth on Legs Yes -Capillary Refill Greater than 3 Seconds Left -Posterior Tibial Doppler Inaudible -Dorsalis Pedis Doppler Multiphasic -Extremity Color Hemosiderin -Hair Growth on Legs Yes -Capillary Refill Greater than 3 Seconds Communication Assessment Preferred language Romanian Able to Read Yes Able to Write Yes Communication Tools None Caregiver Communication Skills No Impairment Impairment Right Hearing Abillity Normal Left Hearing Abillity Normal Visual Assistive Devices Glasses Teaching Assessment Preferences Verbal,Written, Demonstration Barriers to Learning None Readiness To Learn Excellent Willingness to Engage in Self Management High Activies Readiness to Engage in Self Management High Activities Anxiety Level Calm Cooperation Cooperative Perception Coherent Interest in Health Problem Asks Questions Education Importance Acknowledges Need Does Patient Smoke tobacco or other Yes substances Smoking Status Never smoker Is Patient Diabetic No Functional Assessment Recent Decline in Ability to Perform Denies Any Declines Culture/Confucianist/Tumbler Tender Cultural/Confucianist Needs that may affect No Treatment Plan Would you allow our hospital day haul or farm charter bus driver to No meet you for the purpose of spiritual/ emotional support? Tumbler Tender to contact place of rastafari No WC - Nurse 1 - General Ulcer Measurement Start: 05/21/23 13:12 Freq: Status: Active Protocol: Activity Type Activity Date Activity User E-sign Co-sign Detail Recorded Client Recorded Date Recorded By Document 05/21/23 13:12 KW Desktop 05/21/23 13:36 05/21/23 13:12 Wound Center Nurse 1 #7 LT LAT LE -Current Size (cm) - Length 1.4 -Current Size (cm) - Width 1.2 -Current Size (cm) - Depth 0.2 -Total Square Cm 1.68 -Photo Taken Yes -Exudate Amt Small -Exudate Type Serosanguineous -Wound Margin Distinct, Outline Attached -Granulation Amt Small (1-33%) -Granulation Quality Marie -Necrosis Amt Large (67-100%) -Necrotic Tissue Type Adherent Slough -Texture (Kajal-wound Skin Appearance) Assessed -Moisture (Kajal-wound Skin Appearance) Assessed -Color (Kajal-wound Skin Appearance) Assessed -Ulcer Cleansing Soap and Water -Anesthetic Used 5% Lidocaine Gel Right Calf (cm) 31.2 Right Ankle (cm) 20.6 Left Calf (cm) 32.6 Left Ankle (cm) 21.0 WC - Nurse 2 - General Ulcer CM Notes Start: 05/21/23 13:12 Freq: Status: Active Protocol: Activity Type Activity Date Activity User E-sign Co-sign Detail Recorded Client Recorded Date Recorded By Document 05/21/23 14:05 Desktop 05/21/23 14:06 05/21/23 14:05 Wound Center Nurse 2 #7 LT LAT LE -Time 14:06 -Correct Patient Yes -Correct Side, Site, Position Yes -Correct Procedure Yes -Procedure Performed Yes -Type of Procedure Debridement -Clinical Debridement Subcutaneous -Tissue Removed Subcutaneous -Post Debridement (cm) - Length 1.8 -Post Debridement (cm) - Width 1.3 -Post Debridement (cm) - Depth 0.2 -Total Square (Post) (cm) 2.34 -Area of Debridement (cm) - Length 1.8 -Area of Debridement (cm) - Width 1.3 -Total Square (Area) (cm) 2.34 -Tunneling No -Undermining/Tunneling No -Circular Undermining No -Wound/Ulcer Outcome Not Healed -Ulcer Cleansing Rinsed/ Irrigated with Saline -Foul Odor after Cleansing No -Bioengineered Tissue No -Bleeding Controlled with Pressure -Treatment Response Procedure Tolerated Well -Offloading No -Debridement - Subq, 1st 20sq cm Yes Pain Scale: 0-10 Numeric Is Patient Pain Free? Yes WC - Nurse 3 - General Ulcer D/C NN Start: 05/21/23 13:12 Freq: Status: Active Protocol: Activity Type Activity Date Activity User E-sign Co-sign Detail Recorded Client Recorded Date Recorded By Document 05/21/23 14:24 DL [id number] 05/21/23 14:25 DL 05/21/23 14:24 [facility] Nurse 3 #7 LT LAT LE -Ulcer Cleansing Rinsed/ Irrigated with Saline -Foul Odor after Cleansing No -Other Dressing wet to dry -Primary Dressing Covered/Secured with Dry Gauze & Roll Gauze, Secured with Tape David -Tubular Bandage Single Layer -Size of Tubigrip Used Size D -Size D ($) 1 Treatment Response Procedure Tolerated Well Pain Scale: 0-10 Numeric Is Patient Pain Free? Yes WC - Visit Discharge Discharge Condition Stable Ambulatory Status Ambulatory, Walker Notes: Pt to apply santyl when available. 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 All findings were discussed with the patient. All questions were answered to the patient satisfaction. Excisional debridement down to and including subcutaneous tissue with a number 5mm dermal curette to left lateral ulceration left leg. Predebridement measurement is 1.6 x 1.2 x 0.1 cm. Postdebridement measurement is 1.8 x 1.3 x 0.2 cm. The ulceration was dressed with saline wet-to-dry dry sterile dressing and a single layer Tubigrip. Will begin authorization for Santyl so the patient's nursing staff can apply this daily. The ulceration after debridement was cultured to rule out any superficial infection. Will begin authorization for PVRs and venous study due to the patient's poor vascular flow. Follow-up in 1 week. (2) Pain in left leg: CODE(S): M79.605 - Pain in left leg (3) PVD (peripheral vascular disease): CODE(S): I73.9 - Peripheral vascular disease, unspecified 05/21/23 1547 <Electronically signed by Andie Bernal DPM> Cosigner Signature (if applicable): CC: ~ Signed [facility] Work Phone: evaluation noteNo assessment information available [facility] Work Phone: evaluation note* Diagnosis Onset Date Resolution Status Non-pressure ulcer of left l ower extremity with fat layer exposed acute Pain in left leg acute PVD (peripheral vascular disease) chronic [facility] Work Phone: evaluation note* Diagnosis Onset Date Resolution Status Non-pressure ulcer of left l ower extremity with fat layer exposed acute Pain in left leg acute PVD (peripheral vascular disease) chronic Non-pressure ulcer of left l ower extremity with fat layer exposed acute PVD (peripheral vascular disease) chronic [facility] Work Phone: evaluation note* Diagnosis Rectal bleeding- Primary Hemorrhage of rectum and anus Rectal bleeding Hemorrhage of rectum and anus Unspecified right bundle-branch block Abnormal electrocardiogram (ECG) (EKG) Polyp of ascending colon, unspecified type Hyperlipidemia, unspecified hyperlipidemia type [E78.5] Acute blood loss anemia (ABLA) [D62] 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 [Z79.01] Encounter for long-term (current) use of 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s History of DVT (deep vein thrombosis) [Z86.718] Personal history of venous thrombosis and embolism Mixed hyperlipidemia [E78.2] Mixed hyperlipidemia History of DVT (deep vein thrombosis) 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 Encounter for long-term (current) use of 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s Acute blood loss anemia (ABLA) Hyperlipidemia, unspecified Rectal bleeding Hemorrhage of rectum and anus [facility] Rectal bleeding- Primary Hemorrhage of rectum and anus Rectal bleeding Hemorrhage of rectum and anus Unspecified right bundle-branch block Abnormal electrocardiogram (ECG) (EKG) Polyp of ascending colon, unspecified type Hyperlipidemia, unspecified hyperlipidemia type [E78.5] Acute blood loss anemia (ABLA) [D62] 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 [Z79.01] Encounter for long-term (current) use of 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s History of DVT (deep vein thrombosis) [Z86.718] Personal history of venous thrombosis and embolism Mixed hyperlipidemia [E78.2] Mixed hyperlipidemia History of DVT (deep vein thrombosis) 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 Encounter for long-term (current) use of 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s Acute blood loss anemia (ABLA) Hyperlipidemia, unspecified 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 Rectal bleeding Hemorrhage of rectum and anus [facility] Diagnosis Rectal bleeding- Primary Hemorrhage of rectum and anus Rectal bleeding Hemorrhage of rectum and anus Unspecified right bundle-branch block Abnormal electrocardiogram (ECG) (EKG) Polyp of ascending colon, unspecified type Hyperlipidemia, unspecified hyperlipidemia type [E78.5] Acute blood loss anemia (ABLA) [D62] 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 [Z79.01] Encounter for long-term (current) use of 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s History of DVT (deep vein thrombosis) [Z86.718] Personal history of venous thrombosis and embolism Mixed hyperlipidemia [E78.2] Mixed hyperlipidemia History of DVT (deep vein thrombosis) 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 Encounter for long-term (current) use of 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s Acute blood loss anemia (ABLA) Hyperlipidemia, unspecified Adenomatous polyp of ascending colon- Primary Rectal bleeding Hemorrhage of rectum and anus [facility] Diagnosis Rectal bleeding- Primary Hemorrhage of rectum and anus Rectal bleeding Hemorrhage of rectum and anus Unspecified right bundle-branch block Abnormal electrocardiogram (ECG) (EKG) Polyp of ascending colon, unspecified type Hyperlipidemia, unspecified hyperlipidemia type [E78.5] Acute blood loss anemia (ABLA) [D62] 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 [Z79.01] Encounter for long-term (current) use of 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s History of DVT (deep vein thrombosis) [Z86.718] Personal history of venous thrombosis and embolism Mixed hyperlipidemia [E78.2] Mixed hyperlipidemia History of DVT (deep vein thrombosis) 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 Encounter for long-term (current) use of 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s Acute blood loss anemia (ABLA) Hyperlipidemia, unspecified Rectal bleeding- Primary Hemorrhage of rectum and anus Adenomatous polyp of ascending colon Rectal bleeding Hemorrhage of rectum and anus [facility]No reason for referral information [facility]: Reason for visit Narrative* Auth/Cert (Routine) Specialty Diagnoses / Procedures Referred By Contac t Referred To Contact Case Management Diagnoses rectal bleed on eliquis 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 Procedures N/A [place] [address] Phone: tel: fax: [place] [address] Phone: tel: Referral ID Status Reason Start Date Expiration Date Visits Re quested Visits Authorized [id number] 3 3 [facility] Summary Purpose Family History Relationship Condition Age at Onset Recorded Date/T xiomara Unknown Family History?Cancer Unknown 2018 9:19pm Family History?Heart Disease Unknown February 14, 2019 9:19pm Relationship Condition Age at Onset Recorded Date/T xiomara Unknown Family History?Cancer Unknown 2018 8:19pm Family History?Heart Disease Unknown February 14, 2019 8:19pm Advance Directives Date Activated Date Inactivated Comments 01/25/2025 12:24 PM 01/31/2025 7:26 PM Question Answer Comments Documentation of decision pr ocess for this code status: Patient and surrogate unable or unavailable to discuss. Defaulting to the previously documented code status. Advance Directive Response Recorded Date/ Time Living Will Yes February 14 9:15pm Power of Knife Blade Polisher No February 14, 2019 9:15pm Advance Directive Response Recorded Date/ Time Living Will Yes February 14 8:15pm Power of Knife Blade Polisher No February 14, 2019 8:15pm Advance Directive Response Recorded Date/ Time Do you have a Healthcare Power of Knife Blade Polisher? No January 24, 2025 9:15pm Date Activated Date Inactivated Comments 01/25/2025 12:24 PM Chief Complaint and Reason for Visit Chief Complaint [facility] WOR K Chief Complaint [facility] WOR K HALF-WAY LAB WORK Chief Complaint HALF-WAY LABWORK HALF-WAY LAB WORK Chief Complaint HALF-WAY LAB WOR K HALF-WAY LABWORK LABWORK LABWORK Chief Complaint HALF-WAY LABWORK LABWORK LABWORK HALF-WAY LAB WORK Chief Complaint LABWORK [facility]WAY LAB WORK HALF-WAY LAB WORK HALF-WAY LAB WORK Chief Complaint LABWORK HALF-WAY LAB WORK HALF-WAY LAB WORK HALF-WAY LAB WORK HALF-WAY LAB WORK ARTERIAL EXAM Reason for Visit Non-pressure ulcer o f left lower extremity with fat layer exposed Pain in left leg PVD (peripheral vascular disease) Chief Complaint LABWORK HALF-WAY LAB WORK HALF-WAY LAB WORK HALF-WAY LAB WORK HALF-WAY LABWORK HALF-WAY LAB WORK ARTERIAL EXAM ARTERIAL EXAM Reason for Visit Non-pressure ulcer o f left lower extremity with fat layer exposed Pain in left leg PVD (peripheral vascular disease) 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 PVD (peripheral vascular disease) Chief Complaint [facility]-WAY LAB WOR K HALF-WAY LAB WORK HALF-WAY LAB WORK HALF-WAY LABWORK HALF-WAY LAB WORK ARTERIAL EXAM ARTERIAL EXAM Reason for Visit Non-pressure ulcer o f left lower extremity with fat layer exposed Pain in left leg PVD (peripheral vascular disease) 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 PVD (peripheral vascular disease) Chief Complaint Admit Date HALF-WAY LAB WORK October 04, 2024 4 :00am HALF[facility]WAY LAB WORK November 08, 2024 4:0 0am Chief Complaint Admit Date HALF-WAY LAB WORK October 04, 2024 4 :00am HALF-WAY LAB WORK November 08, 2024 4:0 0am gi January 24, 2025 9: 15pm Additional Source Comments INFORMATION SOURCE (unrecogn ized section and content) DATE CREATED AUTHOR 09/18/2020 [facility] DATE CREATED AUTHOR AUTHOR'S ORGANIZ ATION 02/10/2025 [employer] [facility] DATE CREATED AUTHOR AUTHOR'S ORGANIZ ATION 02/10/2025 [facility] y [facility] Goals (unrecognized section and content) Goals may be documented in a n alternate sectionGoals may be documented in an alternate sectionGoals may be documented in an alternate sectionGoals may be documented in an alternate sectionGoals may be documented in an alternate sectionGoals may be documented in an alternate sectionGoals may be documented in an alternate sectionGoals may be documented in an alternate sectionGoals may be documented in an alternate sectionGoals may be documented in an alternate sectionGoals may be documented in an alternate sectionGoals may be documented in an alternate sectionGoals may be documented in an alternate section Care Teams (unrecognized sec tion and content) Team Status: Active Member Role Status Dates Dr. Mike Weeks DO Family Provider Active Dr. Karen Lang MD Primary Care Provider Active Team Status: Active Member Role Status Dates Dr. Karen Lang MD Primary Care Provider Active Dr. Dianna VAUGHN MD Attending Provider Active Team Status: Inactive Member Role Status Dates Dr. Karen Lang MD Primary Care Provider Active Dr. Dianna VAUGHN MD Attending Provider Active Team Status: Inactive Member Role Status Dates Dr. Karen Lang MD Primary Care Provider Active Dr. Dianna VAUGHN MD Attending Provider, Referring Provider Active Team Status: Active Member Role Status Dates Dr. Karen Lang MD Primary Care Provider Active Dr. Andie Bernal DPM Attending Provider Active Dr. Dianna Guido MD Referring Provider Active Team Status: Inactive Member Role Status Dates Dr. Karen Lang MD Primary Care Provider Active Dr. Andie Bernal DPM Attending Provider Active Dr. Dianna Guido MD Referring Provider Active Team Status: Active Member Role Status Dates Dr. Karen Lang MD Primary Care Provider Active Start: October 04, 2024 Dr. Dianna VAUGHN MD Attending Provider Active Start: October 04, 2024 Dr. Dianna VAUGHN MD Referring Provider Active Start: October 04, 2024 Team Status: Inactive Member Role Status Dates Dr. Karen Lang MD Primary Care Provider Active Start: November 08, 2024 End: November 08, 2024 Dr. Dianna VAUGHN MD Attending Provider Active Start: November 08, 2024 End: November 08, 2024 Dr. Dianna VAUGHN MD Referring Provider Active Start: November 08, 2024 End: November 08, 2024 Team Status: Active Member Role/Relationship Status Dates Dr. Dianna Guido MD Primary Care Provider Active Team Status: Active Member Role/Relationship Status Dates Dr. Karen Lang MD Primary Care Provider Active Start: October 04, 2024 Dr. Dianna VAUGHN MD Attending Provider Active Start: October 04, 2024 Dr. Dianna VAUGHN MD Referring Provider Active Start: October 04, 2024 Team Status: Inactive Member Role/Relationship Status Dates Dr. Karen Lang MD Primary Care Provider Active Start: November 08, 2024 End: November 08, 2024 Dr. Dianna VAUGHN MD Attending Provider Active Start: November 08, 2024 End: November 08, 2024 Dr. Dianna VAUGHN MD Referring Provider Active Start: November 08, 2024 End: November 08, 2024 Team Status: Inactive Member Role/Relationship Status Dates Dr. Dianna Guido MD Primary Care Provider Active Start: January 24, 2025 End: January 25, 2025 Dr. Power Borges DO Emergency Provider Active Start : January 24, 2025 End: January 25, 2025 Scheduled Active and Recently Administ ered Medications (unrecognized section and content) Medication Order 01/29/2025 01/30/2025 01/31/2025 Apixaban (ELIQUIS) tablet 5 mg, Oral, 2 TIMES DAILY, First dose on Fri01/31/25 at 2100, Until Discontinued 2099 (Due) aspirin EC tablet (CANCELED) 81 mg, Oral, DAILY, First dose on Fri01/28/25 at 1900, Until Discontinued 903 (Given - Provider: Dana Hernández RN) 09 (Given - Provider: Kathryn Wilder RN) atorvastatin (LIPITOR) tablet 10 mg, Oral, AT BEDTIME, First dose on Fri01/25/25 at 2200, Until Discontinued 2227 (Given - Provider: Claire Thomas LPN) 2106 (Given - Provider: Iliana Dean LPN) 2199 (Due) enoxaparin (LOVENOX) 80 MG/0.8ML injection 70 mg (CANCELED) 70 mg (rounded from 66 mg = 1 mg/kg 66 kg), Subcutaneous, 2 TIMES DAILY, First dose on Fri01/30/25 at 2100, Until Discontinued 2106 (Given - Provider: Iliana Dean LPN) 0831 (Given - Provider: Karine Sánchez RN) hydrophilic wound dressing (TRIAD) external paste Apply externally, 2 TIMES DAILY, First dose on Fri01/26/25 at 1030, Until Discontinued 903 (Given - Provider: Dana Hernández RN)2235 (Given - Provider: Claire Thomas LPN) 899 (Hold/Not Given - Provider: Kathryn Wilder RN - Reason: Not indicated)2106 (Given - Provider: Iliana Dean LPN) 829 (Given - Provider: Karine Sánchez RN)2099 (Due) nystatin (MYCOSTATIN) 100,000 unit/g powder Topical, 2 TIMES DAILY, First dose on Fri01/26/25 at 1030, Until Discontinued 903 (Given - Provider: Dana Hernández RN)2246 (Hold/Not Given - Provider: Claire Thomas LPN - Reason: Patient refused) 899 (Hold/Not Given - Provider: Kathryn Wilder RN - Reason: Not indicated)2106 (Given - Provider: Iliana Dean LPN) 829 (Given - Provider: Karine Sánhcez RN)2099 (Due) pantoprazole (PROTONIX) tablet 40 mg, Oral, DAILY 30 MIN BEFORE BREAKFAST, First dose on Fri01/28/25 at 0830, Until Discontinued 903 (Given - Provider: Dana Hernández RN) 922 (Given - Provider: Kathryn Wilder RN) 08 (Given - Provider: Karine Sánchez RN) polyethylene glycol (MIRALAX) 17 g packet (CANCELED) 17 g, Oral, DAILY, First dose on Fri01/26/25 at 0900, Until Discontinued 903 (Hold/Not Given - Provider: Dana Hernández RN - Reason: Not indicated)1515 (AUG Hold - Provider: Se, Adt - Reason: Patient Transfer)2055 (AUG Unhold - Provider: Aliza Hancock MD) 09 (Given - Provider: Kathryn Wilder, CASPER) 830 (Hold/Not Given - Provider: Karine Sánchez RN - Reason: Patient refused) polyethylene glycol (MIRALAX) 17 g packet 17 g, Oral, 2 times daily, First dose (after last modification) on Fri01/31/25 at 2100, Until Discontinued 2099 (Due) senna (SENOKOT) tablet 8.6 mg, Oral, DAILY, First dose on Fri01/26/25 at 0900, Until Discontinued 903 (Hold/Not Given - Provider: Dana Hernández RN - Reason: Clinical contraindications - Comment: diarrhea) 921 (Given - Provider: Kathryn Wilder RN) 830 (Hold/Not Given - Provider: Karine Sánchez RN - Reason: Patient refused) FOR RECORDS PERTAINING TO PATIENTS WHO ARE [...] BE BASED ON THE PRIMARY CLINICAL RECORDS. [facility] [employer] [facility]. provides no warranty or guarantee of the accuracy or completeness of information in this document.
[2025-02-16 08:18] LABS: Hematocrit 27.4 % (37-47); Hemoglobin 7.7 g/dL (12.0-15.0); Mean Corp Hgb Conc 28.1 g/dL (32-36); Mean Corpuscular Volume 75.1 fL (81-99); Mean Platelet Vol. 9.2 fl (6.2-12.0); Platelet Count 462 K/mm3 (150-450); RBC Distribution Width CV 19.4 % (11.6-14.6); RBC Distribution Width SD 52.3 fl (35.1-43.9); Red Blood Count 3.65 M/mm3 (4.2-5.4); White Blood Count 6.9 K/mm3 (4.4-11.0)
[2025-02-16 09:30] LABS: Anion Gap 11 (5-15); BUN 7 mg/dL (4-19); BUN/Creat Ratio 10.6 RATIO (10-20); Calcium,Total 8.7 mg/dL (7.6-11.0); Carbon Dioxide 23.8 mmol/L (21.0-32.0); Chloride 107 mmol/L (98-108); Glucose 93 mg/dL (70-99); Potassium 4.3 mmol/L (3.3-5.1)
== END ==
LOC: OLS.SWAL 05:00
PROVIDERS: PCP Internal Medicine; Visit Provider Internal Medicine
DX: Z09 Encounter for follow-up examination after completed treatment for conditions other than malignant neoplasm (principal)
CPT/HCPCS: 36415; 80048; 85027

== ENCOUNTER → 2025-03-30 | Outpatient (REF) | payer MEDICARE, MEDICAID, SELFPAY ==
[2025-03-30 06:38] LABS: Hematocrit 27.0 % (37-47); Hemoglobin 7.3 g/dL (12.0-15.0); Mean Corp Hgb Conc 27.0 g/dL (32-36); Mean Corpuscular Volume 67.0 fL (81-99); Mean Platelet Vol. 10.0 fl (6.2-12.0); Platelet Count 282 K/mm3 (150-450); RBC Distribution Width CV 19.9 % (11.6-14.6); RBC Distribution Width SD 47.3 fl (35.1-43.9); Red Blood Count 4.03 M/mm3 (4.2-5.4); White Blood Count 5.4 K/mm3 (4.4-11.0)
[2025-03-30 06:51] LABS: Anion Gap 7 (5-15); BUN 6 mg/dL (4-19); BUN/Creat Ratio 9.6 RATIO (10-20); Calcium,Total 8.1 mg/dL (7.6-11.0); Carbon Dioxide 26.7 mmol/L (21.0-32.0); Chloride 108 mmol/L (98-108); Glucose 89 mg/dL (70-99); Potassium 3.8 mmol/L (3.3-5.1); Pro- Brain NATRIURETIC PEPTIDE 180 pg/mL (<=1800)
== END | disposition home or self-care (01) ==
LOC: OLS.SWAL 04:00
PROVIDERS: PCP Internal Medicine; Referring Provider Internal Medicine; Visit Provider Internal Medicine
DX: R60.9 Edema, unspecified (principal); I10 Essential (primary) hypertension
CPT/HCPCS: 36415; 80048; 83880; 85027

== ENCOUNTER → 2025-04-04 05:00 | Outpatient (REF) | payer MEDICARE, SELFPAY ==
[2025-04-04 08:18] LABS: Hematocrit 30.1 % (37-47); Hemoglobin 8.1 g/dL (12.0-15.0); Mean Corp Hgb Conc 26.9 g/dL (32-36); Mean Corpuscular Volume 66.6 fL (81-99); Mean Platelet Vol. 9.7 fl (6.2-12.0); POSITIVE MORPHOLOGY YES; Platelet Count 448 K/mm3 (150-450); RBC Distribution Width CV 20.2 % (11.6-14.6); RBC Distribution Width SD 47.5 fl (35.1-43.9); Red Blood Count 4.52 M/mm3 (4.2-5.4); White Blood Count 6.6 K/mm3 (4.4-11.0)
== END ==
LOC: OLS.SWAL 05:00
PROVIDERS: PCP Internal Medicine; Visit Provider Internal Medicine
DX: I10 Essential (primary) hypertension (principal); I70.238 Atherosclerosis of native arteries of right leg with ulceration of other part of lower leg
CPT/HCPCS: 36415; 85027

== ENCOUNTER → 2025-04-08 05:00 | Outpatient (REF) | payer MEDICARE, MEDICAID, SELFPAY ==
--- OUTSIDE RECORDS SUMMARY | 2025-04-08 04:29 | XMS RPT_ITS | CCD ---
Author Organization [facility] CliniSynv Care Team Providers Care Bus Greaser Name Role Phone PAUL WEEKS CNP Primary [...] Unava ilcasey Weeks, Dr. Steve Emergency Provider [phone] Unavailable Primary Care Provider UnavailMONTSERRAT Gaines Attending Unavailable CONSULT, IP GASTROENTEROLOGY Consulting Kayla vailable JOSE RAFAEL DESOUZA Admitting Unavailable JENNIE NAVARRO Referring Unavailable PROVIDER, UNKNOWN Attending Unavailable ALICIA NAVA Admitting Unavailable MELANIE, JENNIE Referring Unavailable NORA HAYS Attending Unavailable NORA HAYS Admitting Unavailable PROVIDER, UNKNOWN Admitting Unavailable PROVIDER, UNKNOWN Attending Unavailable PROVIDER, UNKNOWN Admitting Unavailable PROVIDER, UNKNOWN Attending Unavailable ISAURO PAGE Admitting Unavailable ISAURO PAGE Attending Unavailable Gudla OLS, Dianna Referring Unavailable Juan RamonisettiYamiletKaren Primary Care Unavailable Gudla OLS, Dianna Attending Unavailable Kalisetti, Karen Primary Care Unavailable Gudla OLS, Dianna Attending Unavailable Gudla, Dianna Primary Care Unavailable Power Borges Attending Unavailable Gudla, Dianna Primary Care Unavailable Gudla OLS, Dianna Attending Unavailable Gudla OLS, Dianna Referring Unavailable Gudla, Dianna Primary Care Unavailable Gudla OLS, Dianna Attending Unavailable Gudla, Dianna Primary Care Unavailable Gudla OLS, Dianna Attending Unavailable Gudla OLS, Dianna Attending Unavailable Gudla, Dianna Primary Care Unavailable Gudla, Dianna Primary Care Unavailable Gudla OLS, Dianna Attending Unavailable Kalisetti, Karen Primary Care Unavailable Gudla OLS, Dianna Attending Unavailable Gudla OLS, Dianna Referring Unavailable Allergies Allergy Classification Reported Allergen(s) Allergy Type Date of Onset Reaction(s) Facility (15 sources) Latex; Translations: [LATEX] Propensity to adverse reactions (disorder) 9 Itching [facility] Repository (13 sources) Aspirin Drug Allergy 9 Itching [facility] (1 source) Aspirin Drug Allergy 5 [facility] Repository Medications Current Medications Medication Drug Class(es) Dates Sig (Normalized) Sig (Original) apixaban 5 mg oral tablet (9 sources) Factor Xa Inhibitor Start: 01-31-2025 take [...] Active Start: 01-24-2025 take 1 tablet by twice daily Apixaban (Apixaban 5 Mg Tablet) 5 mg tablet Active 5 mg PO TWICE A DAY January 24, 2025 12:00am atorvastatin 10 mg oral tablet (20 sources) HMG-CoA Reductase Inhibitor Start: 01-24-2025 End: [...] January 24, 2025 12:00am polyethylene glycol 3350 91634 mg powder for oral solution (9 sources) Osmotic Laxative Start: 01-31-2025 17 g, Oral, 2 times daily, First dose (after last modification) on 01/31/25 at 2100, Until Discontinued Start: 01-31-2025 End: 05-01-2025 polyethylene glycol (MIRALAX ) packet Dissolve 1 Packet (17 g total) in 8 ounces of liquid and drink 2 times a day. (Stool softener) 60 Packet 2 01/31/2025 05/01/2025 Active Start: 01-26-2025 End: 01-31-2025 17 g, Oral, DAILY, First dos e on Fri01/26/25 at 0900, Until Discontinued polyethylene glycol 3350 663415 mg / potassium chloride 2970 mg / sodium bicarbonate 6740 mg / sodium chloride 5860 mg / sodium sulfate 68437 mg powder for oral solution (9 sources) Osmotic Laxative Start: 02-09-2025 End: 02-14-2026 polyethylene glycol (GOLYTELY) oral solution Use as directed prior to colonoscopy 4000 mL 02/14/2025 02/14/2026 Active sennosides, retirement 8.6 mg oral tablet (8 sources) Start: 01-26-2025 End: 05-02-2025 take 1 [...] at 0900, Until Discontinued polyethylene glycol 3350 630394 mg / potassium chloride 1480 mg / sodium bicarbonate 5720 mg / sodium chloride 23517 mg powder for oral solution (2 sources) [...] Documented Da te Episodic/Chronic Acute posthemorrhagic anemia (9 sources) Acute posthemorrhagic anemia; Translations: [Acute posthemorrhagic anemia] Onset: 01-29-2025 01-29-2025 Episodic Aortic; peripheral; 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; 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 [...] dementia, and amnestic and other cognitive disorders (7 sources) Dementia; Translations: [Mild dementia without behavioral disturbance, psychotic disturbance, mood disturbance, or anxiety, unspecified dementia type] Onset: 08-31-2024 01-29-2025 Chronic Disorders of lipid metabolism (11 sources) Hyperlipidemia; Translations: [Hyperlipidemia, unspecified] Onset: 07-09-2024 01-29-2025 Chronic Essential hypertension (16 sources) Essential (primary) hypertension; Translations: [Hypertensive disorder] Onset: 11-24-2019 06-15-2021 Chronic Gastrointestinal hemorrhage (18 sources) Rectal hemorrhage; Translations: [Hemorrhage of anus and rectum] Onset: 01-25-2025 01-25-2025 Episodic Open wounds of extremities (13 sources) Open wound of lower limb; Translations: [Laceration without foreign body, left lower leg, initial encounter] 02-15-2019 Episodic Other aftercare (1 source) Anticoagulant control - finding; Translations: [FDC (current) use of 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s] 01-25-2025 Episodic Other aftercare (11 sources) Long-term current use of 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; 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] Onset: 01-29-2025 01-31-2025 Episodic Other aftercare (2 sources) Encounter for follow-up examination after completed treatment for conditions other than malignant neoplasm; Translations: [Encounter for follow-up examination after completed treatment for conditions other than malignant neoplasm] Onset: 02-21-2025 Episodic Other and unspecified benign neoplasm (1 [...] unspecified] 01-07-2020 Chronic Phlebitis; thrombophlebitis and thromboembolism (10 sources) H/O: Deep vein thrombosis; Translations: [Personal history of other venous thrombosis and embolism] Onset: 01-29-2025 01-25-2025 Episodic Residual codes; unclassified (13 sources) Bilateral lower limb edema; Translations: [Localized edema] 01-21-2020 Episodic Residual codes; unclassified (1 source) Edema, unspecified; Translations: [Edema, unspecified] Onset: 04-05-2025 Episodic Skin and subcutaneous tissue infections (20 sources) Cellulitis of lower limb; Translations: [Cellulitis of left lower limb] 01-21-2020 Episodic Transient cerebral ischemia (13 sources) Transient cerebral ischemia; Translations: [Transient cerebral ischemic attack, unspecified] 12-24-2019 Chronic Results Test Name Value Interpretation Reference Range Facility CBC-Complete Blood Cnt No Di ffon 04-04-2025 Erythrocyte distribution width (RBC) [Ratio] 20.2 % High 11.6-14.6 [facility] Comment on above: Order Comment: 155 Performed By: #### L 500.2500, L100.0500 #### [facility] [address] [place], [address] Hematocrit (Bld) [Volume fraction] 30.1 % Low 37-47 [facility] Comment on above: Order Comment: 155 Performed By: #### L 500.2500, L100.0500 #### [facility] [address] [place], [address] Hemoglobin (Bld) [Mass/Vol] 8.1 g/dL Low 12.0-15.0 [facility] Comment on above: Order Comment: 155 Performed By: #### L 500.2500, L100.0500 #### [facility] [address] [place], [address] MCH (RBC) [Entitic mass] 17.9 pg Low 27.0-32.0 [facility] Comment on above: Order Comment: 155 Performed By: #### L 500.2500, L100.0500 #### [facility] [address] [place], [address] MCHC (RBC) [Mass/Vol] 26.9 g/dL Low 32-36 [facility] Comment on above: Order Comment: 155 Performed By: #### L 500.2500, L100.0500 #### [facility] [address] [place], [address] MCV (RBC) [Entitic vol] 66.6 fL Low 81-99 [facility] Comment on above: Order Comment: 155 Performed By: #### L 500.2500, L100.0500 #### [facility] [address] [place], [address] Platelet mean volume (Bld) [Entitic vol] 9.7 fL Normal 6.2-12.0 [facility] Comment on above: Order Comment: 155 Performed By: #### L 500.2500, L100.0500 #### [facility] [address] [place], [address] Platelets (Bld) [#/Vol] 448 10*3/uL Normal 150-450 [facility] Comment on above: Order Comment: 155 Performed By: #### L 500.2500, L100.0500 #### [facility] [address] [place], [address] RBC (Bld) [#/Vol] 4.52 10*6/uL Normal 4.2-5.4 [facility] Comment on above: Order Comment: 155 Performed By: #### L 500.2500, L100.0500 #### [facility] [address] [place], [address] RDW SD 47.5 fl High 35.1-43.9 [facility] Comment on above: Order Comment: 155 Performed By: #### L 500.2500, L100.0500 #### [facility] [address] [place], [address] WBC (Bld) [#/Vol] 6.6 10*3/uL Normal 4.4-11.0 [facility] Comment on above: Order Comment: 155 Performed By: #### L 500.2500, L100.0500 #### [facility] [address] [place], [address] Basic Metabolic Profile (BMP )on 03-30-2025 BUN/CRE 9.6 RATIO Low 10-20 [facility] Comment on above: Order Comment: 155 Performed By: #### L 500.2500, L100.0500 #### [facility] [address] [place], [address] Calcium [Mass/Vol] 8.1 mg/dL Normal 7.6-11.0 [facility] Comment on above: Order Comment: 155 Performed By: #### L 500.2500, L100.0500 #### [facility] [address] [place], [address] Chloride [Moles/Vol] 108 mmol/L Normal 98-[address] [facility] Comment on above: Order Comment: 155 Performed By: #### L 500.2500, L100.0500 #### [facility] [address] [place], [address] CO2 [Moles/Vol] 26.7 mmol/L Normal 21.0-32.0 [facility] Comment on above: Order Comment: 155 Performed By: #### L 500.2500, L100.0500 #### [facility] [address] [place], [address] Creatinine [Mass/Vol] 0.62 mg/dL Low 0.70-1.20 [facility] Comment on above: Order Comment: 155 Performed By: #### L 500.2500, L100.0500 #### [facility] [address] [place], [address] GAP 7 Normal 5-15 [facility] Comment on above: Order Comment: 155 Performed By: #### L 500.2500, L100.0500 #### [facility] [address] [place], [address] GFR/1.73 sq M.predicted among non-blacks MDRD (S/P/Bld) [Vol rate/Area] 89 mL/min/{1.73_m2} Normal >60 [facility] Comment on above: Order Comment: 155 Result Comment: mL/m in/1.73m2 CKD-EPI Creatinine Equation (2020) Performed By: #### L 500.2500, L100.0500 #### [facility] [address] [place], [address] Glucose [Mass/Vol] 89 mg/dL Normal 70-99 [facility] Comment on above: Order Comment: 155 Performed By: #### L 500.2500, L100.0500 #### [facility] [address] [place], [address] Potassium [Moles/Vol] 3.8 mmol/L Normal 3.3-5.1 [facility] Comment on above: Order Comment: 155 Performed By: #### L 500.2500, L100.0500 #### [facility] [address] [place], [address] Sodium [Moles/Vol] 142 mmol/L Normal 133-145 [facility] Comment on above: Order Comment: 155 Performed By: #### L 500.2500, L100.0500 #### [facility] [address] [place], [address] Urea nitrogen [Mass/Vol] 6 mg/dL Normal 4-19 [facility] Comment on above: Order Comment: 155 Performed By: #### L 500.2500, L100.0500 #### [facility] [address] [place], [address] CBC-Complete Blood Cnt No Di ffon 03-30-2025 Erythrocyte distribution width (RBC) [Ratio] 19.9 % High 11.6-14.6 [facility] Comment on above: Order Comment: 155 Performed By: #### L 500.2500, L100.0500 #### [facility] [address] [place], [address] Hematocrit (Bld) [Volume fraction] 27.0 % Low 37-47 [facility] Comment on above: Order Comment: 155 Performed By: #### L 500.2500, L100.0500 #### [facility] [address] [place], [address] Hemoglobin (Bld) [Mass/Vol] 7.3 g/dL Low 12.0-15.0 [facility] Comment on above: Order Comment: 155 Performed By: #### L 500.2500, L100.0500 #### [facility] [address] [place], [address] MCH (RBC) [Entitic mass] 18.1 pg Low 27.0-32.0 [facility] Comment on above: Order Comment: 155 Performed By: #### L 500.2500, L100.0500 #### [facility] [address] [place], [address] MCHC (RBC) [Mass/Vol] 27.0 g/dL Low 32-36 [facility] Comment on above: Order Comment: 155 Performed By: #### L 500.2500, L100.0500 #### [facility] [address] [place], [address] MCV (RBC) [Entitic vol] 67.0 fL Low 81-99 [facility] Comment on above: Order Comment: 155 Performed By: #### L 500.2500, L100.0500 #### [facility] [address] [place], [address] Platelet mean volume (Bld) [Entitic vol] 10.0 fL Normal 6.2-12.0 [facility] Comment on above: Order Comment: 155 Performed By: #### L 500.2500, L100.0500 #### [facility] [address] [place], [address] Platelets (Bld) [#/Vol] 282 10*3/uL Normal 150-450 [facility] Comment on above: Order Comment: 155 Performed By: #### L 500.2500, L100.0500 #### [facility] [address] [place], [address] RBC (Bld) [#/Vol] 4.03 10*6/uL Low 4.2-5.4 [facility] Comment on above: Order Comment: 155 Performed By: #### L 500.2500, L100.0500 #### [facility] [address] [place], [address] RDW SD 47.3 fl High 35.1-43.9 [facility] Comment on above: Order Comment: 155 Performed By: #### L 500.2500, L100.0500 #### [facility] [address] [place], [address] WBC (Bld) [#/Vol] 5.4 10*3/uL Normal 4.4-11.0 [facility] Comment on above: Order Comment: 155 Performed By: #### L 500.2500, L100.0500 #### [facility] [address] [place], [address] Pro- Brain NATRIURETIC PEPTI Kel 10-22-2025 Natriuretic peptide B (Bld) [Mass/Vol] 180 pg/mL Normal <=1800 [facility] Comment on above: Order Comment: 155 Result Comment: Hear t Failure Unlikely: < 300 pg/mL Heart Failure Likely < 50 Years: > 450 pg/mL 50-75 Years: > 900 pg/mL >75 Years: > 1800 pg/mL Performed By: #### L 500.2500, L100.0500 #### [facility] [address] [place], [address] Basic Metabolic Profile (BMP )on 02-16-2025 BUN/CRE 10.6 RATIO Normal 10-20 [facility] Comment on above: Order Comment: 155 Performed By: #### L 500.2500, L100.0500 #### [facility] [address] [place], [address] Calcium [Mass/Vol] 8.7 mg/dL Normal 7.6-11.0 [facility] Comment on above: Order Comment: 155 Performed By: #### L 500.2500, L100.0500 #### [facility] [address] [place], [address] Chloride [Moles/Vol] 107 mmol/L Normal 98-[address] [facility] Comment on above: Order Comment: 155 Performed By: #### L 500.2500, L100.0500 #### [facility] [address] [place], [address] CO2 [Moles/Vol] 23.8 mmol/L Normal 21.0-32.0 [facility] Comment on above: Order Comment: 155 Performed By: #### L 500.2500, L100.0500 #### [facility] [address] [place], [address] Creatinine [Mass/Vol] 0.62 mg/dL Low 0.70-1.20 [facility] Comment on above: Order Comment: 155 Performed By: #### L 500.2500, L100.0500 #### [facility] [address] [place], [address] GAP 11 Normal 5-15 [facility] Comment on above: Order Comment: 155 Performed By: #### L 500.2500, L100.0500 #### [facility] [address] [place], [address] GFR/1.73 sq M.predicted among non-blacks MDRD (S/P/Bld) [Vol rate/Area] 89 mL/min/{1.73_m2} Normal >60 [facility] Comment on above: Order Comment: 155 Result Comment: mL/m in/1.73m2 CKD-EPI Creatinine Equation (2020) Performed By: #### L 500.2500, L100.0500 #### [facility] [address] [place], [address] Glucose [Mass/Vol] 93 mg/dL Normal 70-99 [facility] Comment on above: Order Comment: 155 Performed By: #### L 500.2500, L100.0500 #### [facility] [address] [place], [address] Potassium [Moles/Vol] 4.3 mmol/L Normal 3.3-5.1 [facility] Comment on above: Order Comment: 155 Performed By: #### L 500.2500, L100.0500 #### [facility] [address] [place], [address] Sodium [Moles/Vol] 141 mmol/L Normal 133-145 [facility] Comment on above: Order Comment: 155 Performed By: #### L 500.2500, L100.0500 #### [facility] [address] [place], [address] Urea nitrogen [Mass/Vol] 7 mg/dL Normal 4-19 [facility] Comment on above: Order Comment: 155 Performed By: #### L 500.2500, L100.0500 #### [facility] [address] [place], [address] CBC-Complete Blood Cnt No Di ffon 02-16-2025 Erythrocyte distribution width (RBC) [Ratio] 19.4 % High 11.6-14.6 [facility] Comment on above: Order Comment: 155 Performed By: #### L 500.2500, L100.0500 #### [facility] [address] [place], [address] Hematocrit (Bld) [Volume fraction] 27.4 % Low 37-47 [facility] Comment on above: Order Comment: 155 Performed By: #### L 500.2500, L100.0500 #### [facility] [address] [place], [address] Hemoglobin (Bld) [Mass/Vol] 7.7 g/dL Low 12.0-15.0 [facility] Comment on above: Order Comment: 155 Performed By: #### L 500.2500, L100.0500 #### [facility] [address] [place], [address] MCH (RBC) [Entitic mass] 21.1 pg Low 27.0-32.0 [facility] Comment on above: Order Comment: 155 Performed By: #### L 500.2500, L100.0500 #### [facility] [address] [place], [address] MCHC (RBC) [Mass/Vol] 28.1 g/dL Low 32-36 [facility] Comment on above: Order Comment: 155 Performed By: #### L 500.2500, L100.0500 #### [facility] [address] [place], [address] MCV (RBC) [Entitic vol] 75.1 fL Low 81-99 [facility] Comment on above: Order Comment: 155 Performed By: #### L 500.2500, L100.0500 #### [facility] [address] [place], [address] Platelet mean volume (Bld) [Entitic vol] 9.2 fL Normal 6.2-12.0 [facility] Comment on above: Order Comment: 155 Performed By: #### L 500.2500, L100.0500 #### [facility] [address] [place], [address] Platelets (Bld) [#/Vol] 462 10*3/uL High 150-450 [facility] Comment on above: Order Comment: 155 Performed By: #### L 500.2500, L100.0500 #### [facility] [address] [place], [address] RBC (Bld) [#/Vol] 3.65 10*6/uL Low 4.2-5.4 [facility] Comment on above: Order Comment: 155 Performed By: #### L 500.2500, L100.0500 #### [facility] [address] [place], [address] RDW SD 52.3 fl High 35.1-43.9 [facility] Comment on above: Order Comment: 155 Performed By: #### L 500.2500, L100.0500 #### [facility] [address] [place], [address] WBC (Bld) [#/Vol] 6.9 10*3/uL Normal 4.4-11.0 [facility] Comment on above: Order Comment: 155 Performed By: #### L 500.2500, L100.0500 #### [facility] [address] [place], [address] Basic Metabolic Profile (BMP )on 02-09-2025 BUN/CRE 10.8 RATIO Normal 10-20 [facility] Comment on above: Order Comment: 155 Performed By: #### L 100.0500, L500.2500 #### [facility] [address] [place], [address] Calcium [Mass/Vol] 8.6 mg/dL Normal 7.6-11.0 [facility] Comment on above: Order Comment: 155 Performed By: #### L 100.0500, L500.2500 #### [facility] [address] [place], [address] Chloride [Moles/Vol] 106 mmol/L Normal 98-[address] [facility] Comment on above: Order Comment: 155 Performed By: #### L 100.0500, L500.2500 #### [facility] [address] [place], [address] CO2 [Moles/Vol] 25.8 mmol/L Normal 21.0-32.0 [facility] Comment on above: Order Comment: 155 Performed By: #### L 100.0500, L500.2500 #### [facility] [address] [place], [address] Creatinine [Mass/Vol] 0.70 mg/dL Normal 0.70-1.20 [facility] Comment on above: Order Comment: 155 Performed By: #### L 100.0500, L500.2500 #### [facility] [address] [place], [address] GAP 9 Normal 5-15 [facility] Comment on above: Order Comment: 155 Performed By: #### L 100.0500, L500.2500 #### [facility] [address] [place], [address] GFR/1.73 sq M.predicted among non-blacks MDRD (S/P/Bld) [Vol rate/Area] 86 mL/min/{1.73_m2} Normal >60 [facility] Comment on above: Order Comment: 155 Result Comment: mL/m in/1.73m2 CKD-EPI Creatinine Equation (2020) Performed By: #### L 100.0500, L500.2500 #### [facility] [address] [place], [address] Glucose [Mass/Vol] 104 mg/dL High 70-99 [facility] Comment on above: Order Comment: 155 Performed By: #### L 100.0500, L500.2500 #### [facility] [address] [place], [address] Potassium [Moles/Vol] 4.8 mmol/L Normal 3.3-5.1 [facility] Comment on above: Order Comment: 155 Performed By: #### L 100.0500, L500.2500 #### [facility] [address] [place], [address] Sodium [Moles/Vol] 141 mmol/L Normal 133-145 [facility] Comment on above: Order Comment: 155 Performed By: #### L 100.0500, L500.2500 #### [facility] [address] [place], [address] Urea nitrogen [Mass/Vol] 8 mg/dL Normal 4-19 [facility] Comment on above: Order Comment: 155 Performed By: #### L 100.0500, L500.2500 #### [facility] [address] [place], [address] CBC-Complete Blood Cnt No Di ffon 02-09-2025 Erythrocyte distribution width (RBC) [Ratio] 19.7 % High 11.6-14.6 [facility] Comment on above: Order Comment: 155 Performed By: #### L 100.0500, L500.2500 #### [facility] [address] [place], [address] Hematocrit (Bld) [Volume fraction] 26.2 % Low 37-47 [facility] Comment on above: Order Comment: 155 Performed By: #### L 100.0500, L500.2500 #### [facility] [address] [place], [address] Hemoglobin (Bld) [Mass/Vol] 7.7 g/dL Low 12.0-15.0 [facility] Comment on above: Order Comment: 155 Performed By: #### L 100.0500, L500.2500 #### [facility] [address] [place], [address] MCH (RBC) [Entitic mass] 22.2 pg Low 27.0-32.0 [facility] Comment on above: Order Comment: 155 Performed By: #### L 100.0500, L500.2500 #### [facility] [address] [place], [address] MCHC (RBC) [Mass/Vol] 29.4 g/dL Low 32-36 [facility] Comment on above: Order Comment: 155 Performed By: #### L 100.0500, L500.2500 #### [facility] [address] [place], [address] MCV (RBC) [Entitic vol] 75.5 fL Low 81-99 [facility] Comment on above: Order Comment: 155 Performed By: #### L 100.0500, L500.2500 #### [facility] [address] [place], [address] Platelet mean volume (Bld) [Entitic vol] 9.5 fL Normal 6.2-12.0 [facility] Comment on above: Order Comment: 155 Performed By: #### L 100.0500, L500.2500 #### [facility] [address] [place], [address] Platelets (Bld) [#/Vol] 559 10*3/uL High 150-450 [facility] Comment on above: Order Comment: 155 Performed By: #### L 100.0500, L500.2500 #### [facility] [address] [place], [address] RBC (Bld) [#/Vol] 3.47 10*6/uL Low 4.2-5.4 [facility] Comment on above: Order Comment: 155 Performed By: #### L 100.0500, L500.2500 #### [facility] [address] [place], [address] RDW SD 53.1 fl High 35.1-43.9 [facility] Comment on above: Order Comment: 155 Performed By: #### L 100.0500, L500.2500 #### [facility] [address] [place], [address] WBC (Bld) [#/Vol] 8.7 10*3/uL Normal 4.4-11.0 [facility] Comment on above: Order Comment: 155 Performed By: #### L 100.0500, L500.2500 #### [facility] [address] [place], [address] CBC-Complete Blood Cnt No Di ffon 02-02-2025 Erythrocyte distribution width (RBC) [Ratio] 19.4 % High 11.6-14.6 [facility] Comment on above: Order Comment: 155 Performed By: #### L 100.0500, L500.2500 #### [facility] [address] [place], [address] Hematocrit (Bld) [Volume fraction] 27.5 % Low 37-47 [facility] Comment on above: Order Comment: 155 Performed By: #### L 100.0500, L500.2500 #### [facility] [address] [place], [address] Hemoglobin (Bld) [Mass/Vol] 8.0 g/dL Low 12.0-15.0 [facility] Comment on above: Order Comment: 155 Performed By: #### L 100.0500, L500.2500 #### [facility] [address] [place], [address] MCH (RBC) [Entitic mass] 22.5 pg Low 27.0-32.0 [facility] Comment on above: Order Comment: 155 Performed By: #### L 100.0500, L500.2500 #### [facility] [address] [place], [address] MCHC (RBC) [Mass/Vol] 29.1 g/dL Low 32-36 [facility] Comment on above: Order Comment: 155 Performed By: #### L 100.0500, L500.2500 #### [facility] [address] [place], [address] MCV (RBC) [Entitic vol] 77.5 fL Low 81-99 [facility] Comment on above: Order Comment: 155 Performed By: #### L 100.0500, L500.2500 #### [facility] [address] [place], [address] Platelet mean volume (Bld) [Entitic vol] 10.5 fL Normal 6.2-12.0 [facility] Comment on above: Order Comment: 155 Performed By: #### L 100.0500, L500.2500 #### [facility] [address] [place], [address] Platelets (Bld) [#/Vol] 376 10*3/uL Normal 150-450 [facility] Comment on above: Order Comment: 155 Performed By: #### L 100.0500, L500.2500 #### [facility] [address] [place], [address] RBC (Bld) [#/Vol] 3.55 10*6/uL Low 4.2-5.4 [facility] Comment on above: Order Comment: 155 Performed By: #### L 100.0500, L500.2500 #### [facility] [address] [place], [address] RDW SD 54.1 fl High 35.1-43.9 [facility] Comment on above: Order Comment: 155 Performed By: #### L 100.0500, L500.2500 #### [facility] [address] [place], [address] WBC (Bld) [#/Vol] 11.8 10*3/uL High 4.4-11.0 [facility] Comment on above: Order Comment: 155 Performed By: #### L 100.0500, L500.2500 #### [facility] [address] [place], [address] Comprehensive Metabolic Prof ilon 02-02-2025 Albumin [Mass/Vol] 3.4 g/dL Normal 3.4-4.8 [facility] Comment on above: Order Comment: 155 Performed By: #### L 100.0500, L500.2500 #### [facility] [address] [place], [address] Albumin/Globulin [Mass ratio] 1.3 {ratio} Normal 0.9-2.4 [facility] Comment on above: Order Comment: 155 Performed By: #### L 100.0500, L500.2500 #### [facility] [address] [place], [address] ALK PHOS 102 U/L Normal 35-104 [facility] Comment on above: Order Comment: 155 Performed By: #### L 100.0500, L500.2500 #### [facility] [address] [place], [address] ALT [Catalytic activity/Vol] 12 U/L Normal <=34 [facility] Comment on above: Order Comment: 155 Performed By: #### L 100.0500, L500.2500 #### [facility] [address] [place], [address] AST [Catalytic activity/Vol] 27 U/L Normal <=31 [facility] Comment on above: Order Comment: 155 Performed By: #### L 100.0500, L500.2500 #### [facility] [address] [place], [address] Bilirubin [Mass/Vol] 1.49 mg/dL High 0.00-1.[address] [facility] Comment on above: Order Comment: 155 Performed By: #### L 100.0500, L500.2500 #### [facility] [address] [place], [address] BUN/CRE 12.3 RATIO Normal 10-20 [facility] Comment on above: Order Comment: 155 Performed By: #### L 100.0500, L500.2500 #### [facility] [address] [place], [address] Calcium [Mass/Vol] 8.5 mg/dL Normal 7.6-11.0 [facility] Comment on above: Order Comment: 155 Performed By: #### L 100.0500, L500.2500 #### [facility] [address] [place], [address] Chloride [Moles/Vol] 102 mmol/L Normal 98-[address] [facility] Comment on above: Order Comment: 155 Performed By: #### L 100.0500, L500.2500 #### [facility] [address] [place], [address] CO2 [Moles/Vol] 23.0 mmol/L Normal 21.0-32.0 [facility] Comment on above: Order Comment: 155 Performed By: #### L 100.0500, L500.2500 #### [facility] [address] [place], [address] Creatinine [Mass/Vol] 0.71 mg/dL Normal 0.70-1.20 [facility] Comment on above: Order Comment: 155 Performed By: #### L 100.0500, L500.2500 #### [facility] [address] [place], [address] GAP 11 Normal 5-15 [facility] Comment on above: Order Comment: 155 Performed By: #### L 100.0500, L500.2500 #### [facility] [address] [place], [address] GFR/1.73 sq M.predicted among non-blacks MDRD (S/P/Bld) [Vol rate/Area] 84 mL/min/{1.73_m2} Normal >60 [facility] Comment on above: Order Comment: 155 Result Comment: mL/m in/1.73m2 CKD-EPI Creatinine Equation (2020) Performed By: #### L 100.0500, L500.2500 #### [facility] [address] [place], [address] Globulin (S) [Mass/Vol] 2.6 g/dL Normal 2.2-4.2 [facility] Comment on above: Order Comment: 155 Performed By: #### L 100.0500, L500.2500 #### [facility] [address] [place], [address] Glucose [Mass/Vol] 101 mg/dL High 70-99 [facility] Comment on above: Order Comment: 155 Performed By: #### L 100.0500, L500.2500 #### [facility] [address] [place], [address] Potassium [Moles/Vol] 4.1 mmol/L Normal 3.3-5.1 [facility] Comment on above: Order Comment: 155 Performed By: #### L 100.0500, L500.2500 #### [facility] [address] [place], [address] Sodium [Moles/Vol] 136 mmol/L Normal 133-145 [facility] Comment on above: Order Comment: 155 Performed By: #### L 100.0500, L500.2500 #### [facility] [address] [place], [address] T PROT 6.0 g/dL Normal 5.9-8.4 [facility] Comment on above: Order Comment: 155 Performed By: #### L 100.0500, L500.2500 #### [facility] [address] [place], [address] Urea nitrogen [Mass/Vol] 9 mg/dL Normal 4-19 [facility] Comment on above: Order Comment: 155 Performed By: #### L 100.0500, L500.2500 #### [facility] [address] [place], [address] Vitamin B12on 02-02-2025 Cobalamin (Vitamin B12) [Mass/Vol] 650 pg/mL Normal 180-914 [facility] Comment on above: Order Comment: 155 Performed By: #### L 500.2500, L100.0500 #### [facility] [address] [place], [address] Vitamin D,25 Hydroxyon 02-02 Vitamin D 25-OH 46.4 ng/mL Normal 30-100 [facility] Comment on above: Order Comment: 155 Result Comment: Alessandra min D Status Deficiency: <20 ng/mL (50nmol/L) Insufficiency: 20-30 ng/mL (50-75 nmol/L) Sufficiency: 30-100 ng/mL (75-250 nmol/L) Toxicity: >100 ng/mL (>250 nmol/L) Performed By: #### L 500.2500, L100.0500 #### [facility] [address] 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 FLUOROSCOPIST: Anselmo Whittaker FLUORO TIME: 2.7 Minutes [...] and the sheath exchanged for a 5 [place] hemostatic sheath. Under fluoroscopic guidance, a 5 [place] Sos-2 catheter was used to catheterize the superior mesenteric artery. SMA angiography was performed. The catheter was then repositioned into the celiac artery and celiac angiography was performed. The 5 [place] diagnostic sheath was exchanged over wire for a 6 [place] long angled sheath. Sheath was advanced into [...] agree with the resident's interpretation. Normal [facility] [email or web address] [facility] XA ART EMBO NON HEMORRHAGE ( [...] and the sheath exchanged for a 5 [place] hemostatic sheath. Under fluoroscopic guidance, a 5 [place] Sos-2 catheter was used to catheterize the superior mesenteric artery. SMA angiography was performed. The catheter was then repositioned into the celiac artery and celiac angiography was performed. The 5 [place] diagnostic sheath was exchanged over wire for a 6 [place] long angled sheath. Sheath was advanced into [...] agree with the resident's interpretation. Normal [facility] [email or web address] [facility] XA CELIAC ARTERY (KATYA)on 08- 26-2025 XA CELIAC ARTERY (KATYA) EXAMINATION: XA A [...] and the sheath exchanged for a 5 [place] hemostatic sheath. Under fluoroscopic guidance, a 5 [place] Sos-2 catheter was used to catheterize the superior mesenteric artery. SMA angiography was performed. The catheter was then repositioned into the celiac artery and celiac angiography was performed. The 5 [place] diagnostic sheath was exchanged over wire for a 6 [place] long angled sheath. Sheath was advanced into [...] agree with the resident's interpretation. Normal [facility] [employer] [facility] CBC WITH DIFFERENTIALon 01-08 Basophils (Bld) [...] (Bld) [#/Vol] 0.06 10*3/uL Normal 0.00-0.20 [email or web address] Comment on above: Performed By: #### DAMON Hamilton #### [facility] [address] [place] [address], Basophils/100 WBC (Bld) 0.5 % Normal <=1.9 [facility] Comment on above: Performed By: #### DAMON Hamilton #### [facility] [address] [place] [address], Eosinophils (Bld) [#/Vol] 0.15 10*3/uL Normal 0.00-0.70 [facility] Comment on above: Performed By: ###Roger Olivas, CH8 #### S PATHOLOGY LABORATORY [address] [place], [place], Eosinophils/100 WBC (Bld) 1.4 % Normal 0.1-4.0 [facility] Comment on above: Performed By: #### Aruna Olivas, CH8 #### S PATHOLOGY LABORATORY [address] [place] [address], Erythrocyte distribution width (RBC) [Ratio] 21.7 % High 11.5-14.5 [facility] Comment on above: Performed By: #### Aruna Olivas, CH8 #### [facility] [address] [place], [place], Hematocrit (Bld) [Volume fraction] 25.5 % Low 36.0-46.0 [facility] Comment on above: Performed By: #### Aruna Olivas, CH8 #### [facility] [address] [place], [place], Hemoglobin (Bld) [Mass/Vol] 8.1 g/dL Low 12.0-15.0 [facility] Comment on above: Performed By: #### Aruna Olivas, CH8 #### [facility] [address] [place], [place], Lymphocytes (Bld) [#/Vol] 1.13 10*3/uL Normal 1.00-4.80 [facility] Comment on above: Performed By: #### Aruna Olivas, CH8 #### [facility] [address] [place], [place], Lymphocytes/100 WBC (Bld) 10.6 % Low 24.0-44.0 [facility] Comment on above: Performed By: #### Aruna Olivas, CH8 #### [facility] [address] [place], [place], MCH (RBC) [Entitic mass] 23.3 pg Low 26.0-34.0 [facility] Comment on above: Performed By: #### Aruna Olivas, CH8 #### [facility] [address] [place], [place], MCHC (RBC) [Mass/Vol] 31.8 g/dL Low 32.0-35.9 [facility] Comment on above: Performed By: #### Aruna Olivas, CH8 #### [facility] [address] [place] [address], MCV (RBC) [Entitic vol] 73 fL Low 80-100 [facility] Comment on above: Performed By: #### Aruna Olivas, CH8 #### [facility] [address] [place] [address], Monocytes (Bld) [#/Vol] 1.76 10*3/uL High 0.20-1.00 [facility] Comment on above: Performed By: #### Aruna Olivas, CH8 #### [facility] [address] [place] [address], Monocytes/100 WBC (Bld) 16.5 % High 2.0-11.0 [facility] Comment on above: Performed By: #### Aruna Olivas, CH8 #### [facility] [address] [place] [address], Neutrophils (Bld) [#/Vol] 7.56 10*3/uL Normal 1.50-8.00 [facility] Comment on above: Performed By: #### Aruna Olivas, CH8 #### [facility] [address] [place] [address], Neutrophils/100 WBC (Bld) 71.0 % Normal 31.0-76.0 [facility] Comment on above: Performed By: #### Aruna Olivas, CH8 #### [facility] [address] [place] [address], Platelet mean volume (Bld) [Entitic vol] 8.1 fL Normal 7.5-11.2 [facility] Comment on above: Performed By: #### Aruna Olivas, CH8 #### [facility] [address] [place] [address], Platelets (Bld) [#/Vol] 209 10*3/uL Normal 150-400 [facility] Comment on above: Performed By: #### Aruna Olivas, CH8 #### [facility] [address] [place] [address], RBC (Bld) [#/Vol] 3.47 10*6/uL Low 4.00-5.20 [facility] [email or web address] [facility] Comment on above: Performed By: #### Aruna Olivas CH8 #### S PATHOLOGY LABORATORY [address] [place], [place], WBC (Bld) [#/Vol] 10.6 10*3/uL Normal 4.5-11.5 [email or web address] Comment on above: Performed By: #### Aruna Olivas CH8 #### S PATHOLOGY LABORATORY [address] [place], [place], Discharge Planning Noteon Parts Back [employer] Man Authentication Interface Message Text SW/CM aware that patient meets criteria for HHC. Spoke with Pts son over the phone to discuss dispo. Patient open and agreeable to HHC. CM provided Pt son the quality and resource use measure data from available post-acute (PAC) providers, that best align with the patient's treatment goals and preferences from the medicare.gov compare site for HHC. [place] of Choice was provided to the patient/patient disability representative. CM to follow up with accepting agencies. CM to continue to follow. ADDENDUM: CM spoke with Debra Campbell from [facility] and she states that the patient can receive therapy under Medicare part B from PT at her AL if she so wishes. CM will continue to follow additional discharge planning needs. ADDENDUM: CM spoke with Pt son and notified him that patient would be discharge back to her [facility] today. Son stated that he would be at to black pickler pt and transport her back to [facility] after 5pm. CM will continue to follow. Breanna Wilder MSN, RN Inpatient Environmental Protection Inspector 7E/[id number] Cell [phone] Desk [phone] Normal [facility] [employer] [facility] MANUAL DIFF AND MORPHon - Acanthocytes LM Ql (Bld) Few [facility] Carlos cells LM Ql (Bld) Few [facility] Cells Counted Total (Bld) [#] [facility] Microcytes Ql (Bld) Slight [facility] Ovalocytes LM Ql (Bld) Few [facility] RBC.hypochromic/100 RBC Auto (Bld) Moderate [facility] Schistocytes LM Ql (Bld) Few [facility] ACANTHOCYTES Few Normal [facility] Comment on above: Performed By: #### M Deisy, CH8 #### S PATHOLOGY LABORATORY [address] [place] [address], CARLOS CELLS Few Normal [facility] Comment on above: Performed By: #### M G, CH8 #### S PATHOLOGY LABORATORY [address] [place] [address], CELLS COUNTED TOTAL # IN BLOOD Normal [facility] Comment on above: Performed By: #### M Deisy, CH8 #### S PATHOLOGY LABORATORY [address] [place] [address], FRAGMENTED RBC Few Normal [facility] Comment on above: Performed By: #### Aruna Olivas, CH8 #### [facility] [address] [place] [address], HYPOCHROMASIA Moderate Normal [facility] Comment on above: Performed By: #### Aruna Olivas, CH8 #### [facility] [address] [place] [address], MICROCYTOSIS Slight Normal 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 Whittaker or until AC restarted. Normal [facility] [employer] Interface Message Text --trend CBC daily, transfuse [...] resume anticoagulation after polyp biopsy Normal [facility] [employer] Man Authentication Interface Message Text --chronic. stable. continue home statin Normal [facility] [email or web address] [facility] BASIC METABOLIC PANELon 08-2 Anion gap [Moles/Vol] 11 mmol/L Normal 10-20 [email or web address] Comment on above: Performed By: #### Aruna Olivas CH8 ####[facility] [id number] [place], [place], Calcium [Mass/Vol] 8.1 mg/dL Low 8.6-10.3 [email or web address] Comment on above: Performed By: #### Aruna Olivas CH8 ####S PATHOLOGY [id number] [place], [place], Chloride [Moles/Vol] 106 mmol/L Normal 98-107 [email or web address] Comment on above: Performed By: #### Aruna Olivas CH8 ####S PATHOLOGY [id number] [place], [place], CO2 [Moles/Vol] 27 mmol/L Normal 21-31 [facility] [email or web address] [facility] Comment on above: Performed By: #### Aruna Olivas CH8 ####[facility] [id number] [place], [place], Creatinine [Mass/Vol] 0.51 mg/dL Low 0.60-1.20 [facility] [email or web address] Comment on above: Performed By: #### Aruna Olivas CH8 ####S PATHOLOGY [id number] [place], [place], ESTIMATED GFR (CKD-EPI) 93 mL/min/1.73sqm Normal >=60 [facility] Comment on above: Result Comment: 2020 CKD EPI Equation using Creatinine without Race Comment: Estimated glomerular filtration rate (eGFR) is calculated without a race coefficient. Values should be interpreted in the context of the patient's full clinical presentation. Reference: 1. Raul García, Adalgisa M, Elizabeth DC, et al.. A Unifying Approach for GFR Estimation: Recommendations of the NKF-ASN Task Force on Reassessing the Inclusion of Race in Diagnosing Kidney Disease. [place] Journal of Kidney Diseases 2021;79(2):268-88.e1. 2. N Engl J Med 2020 Vol. 385 Issue 19 Pages 7948-2976 Performed By: #### Aruna Olivas CH8 ####S PATHOLOGY [id number] [place], [place], Glucose [Mass/Vol] 94 mg/dL Normal 74-109 [facility] Comment on above: Performed By: #### Aruna Olivas CH8 ####S PATHOLOGY [id number] [place], [place], Potassium [Moles/Vol] 4.1 mmol/L Normal 3.5-5.0 [facility] Comment on above: Performed By: ###Roger Olivas CH8 ####S PATHOLOGY [id number] [place], [place], Sodium [Moles/Vol] 140 mmol/L Normal 136-145 [facility] Comment on above: Performed By: #### Aruna Olivas CH8 ####S PATHOLOGY [id number] [place], [place], Urea nitrogen [Mass/Vol] 6 mg/dL Low 7-25 [facility] Comment on above: Performed By: #### Aruna Olivas CH8 ####S PATHOLOGY [id number] [place], [place], Basic metabolic 2000 panelon 01-30-2025 Anion gap [Moles/Vol] 11 mmol/L 10 - 20 [facility] Calcium [Mass/Vol] 8.1 mg/dL Low 8.6 - 10. 3 mg/dL [facility] Chloride [Moles/Vol] 106 mmol/L 98 - 10 [...] Inclusion of Race in Diagnosing Kidney Disease. [place]i Journal of Kidney Diseases 2021;79(2):268-88.e1. 2. N Engl J Med 2020 Vol. 385 Issue 19 Pages 8203-6226 Glucose [Mass/Vol] 94 mg/dL 74 - 109 [...] (Bld) [#/Vol] 0.05 10*3/uL Normal 0.00-0.20 [facility] Comment on above: Performed By: #### DAMON Hamilton #### S PATHOLOGY LABORATORY [address] [place] [address], [phone] Basophils/100 WBC (Bld) 0.5 % Normal <=1.9 [facility] Comment on above: Performed By: #### M G, CH8 #### [facility] [address] [place], [place], Eosinophils (Bld) [#/Vol] 0.13 10*3/uL Normal 0.00-0.70 [facility] Comment on above: Performed By: #### Aruna Olivas, CH8 #### [facility] [address] [place], [place], Eosinophils/100 WBC (Bld) 1.4 % Normal 0.1-4.0 [facility] Comment on above: Performed By: #### Aruna Olivas, CH8 #### [facility] [address] [place], [place], Erythrocyte distribution width (RBC) [Ratio] 20.9 % High 11.5-14.5 [facility] Comment on above: Performed By: #### Aruna Olivas, CH8 #### [facility] [address] [place], [place], Hematocrit (Bld) [Volume fraction] 24.2 % Low 36.0-46.0 [facility] Comment on above: Performed By: #### Aruna Olivas, CH8 #### [facility] [address] [place], [place], Hemoglobin (Bld) [Mass/Vol] 7.9 g/dL Low 12.0-15.0 [facility] Comment on above: Performed By: #### Aruna Olivas, CH8 #### [facility] [address] [place], [place], Lymphocytes (Bld) [#/Vol] 1.02 10*3/uL Normal 1.00-4.80 [facility] Comment on above: Performed By: #### Aruna Olivas, CH8 #### [facility] [address] [place], [place], Lymphocytes/100 WBC (Bld) 10.6 % Low 24.0-44.0 [facility] Comment on above: Performed By: #### Aruna Olivas, CH8 #### [facility] [address] [place], [place], MCH (RBC) [Entitic mass] 23.3 pg Low 26.0-34.0 [facility] Comment on above: Performed By: #### Aruna Olivas, CH8 #### [facility] [address] [place] [address], MCHC (RBC) [Mass/Vol] 32.7 g/dL Normal 32.0-35.9 [facility] Comment on above: Performed By: #### Aruna Olivas, CH8 #### [facility] [address] [place] [address], MCV (RBC) [Entitic vol] 71 fL Low 80-100 [facility] Comment on above: Performed By: #### Aruna Olivas, CH8 #### [facility] [address] [place] [address], Monocytes (Bld) [#/Vol] 1.42 10*3/uL High 0.20-1.00 [facility] Comment on above: Performed By: #### Aruna Olivas, CH8 #### [facility] [address] [place] [address], Monocytes/100 WBC (Bld) 14.8 % High 2.0-11.0 [facility] Comment on above: Performed By: #### Aruna Olivas, CH8 #### [facility] [address] [place] [address], Neutrophils (Bld) [#/Vol] 6.94 10*3/uL Normal 1.50-8.00 [facility] Comment on above: Performed By: #### Aruna Olivas, CH8 #### [facility] [address] [place] [address], Neutrophils/100 WBC (Bld) 72.6 % Normal 31.0-76.0 [facility] Comment on above: Performed By: #### Aruna Olivas, CH8 #### [facility] [address] [place] [address], Platelet mean volume (Bld) [Entitic vol] 8.5 fL Normal 7.5-11.2 [facility] Comment on above: Performed By: #### Aruna Olivas, CH8 #### [facility] [address] [place] [address], Platelets (Bld) [#/Vol] 206 10*3/uL Normal 150-400 [facility] Comment on above: Performed By: ###Roger Olivas, RODRIGUEZ8 #### S PATHOLOGY LABORATORY [address] [place], [place], RBC (Bld) [#/Vol] 3.39 10*6/uL Low 4.00-5.20 [facility] Comment on above: Performed By: #### Aruna Olivas, RODRIGUEZ8 #### S PATHOLOGY LABORATORY [address] [place], [place], WBC (Bld) [#/Vol] 9.6 10*3/uL Normal 4.5-11.5 [facility] Comment on above: Performed By: #### Aruna Olivas, RODRIGUEZ8 #### [facility] [address] [place], [place], MAGNESIUMon 01-30-2025 Interpretation and review of laboratory results Normal [facility] Magnesium [Mass/Vol] 1.9 mg/dL 1.9 - 2 .7 mg/dL [facility] Magnesium [Mass/Vol] 1.9 mg/dL Normal 1.9-2.7 [facility] Comment on above: Performed By: #### Aruna Olivas, RODRIGUEZ8 ####S PATHOLOGY [id number] [place], [place], MANUAL DIFF AND MORPHon 01-08 Carlos cells LM Ql (Bld) Few [facility] Cells Counted Total (Bld) [#] [facility] Microcytes Ql (Bld) Slight [facility] Ovalocytes LM Ql (Bld) Few [facility] RBC.hypochromic/100 RBC Auto (Bld) Moderate [facility] Schistocytes LM Ql (Bld) Few [facility] CARLOS CELLS Few Normal [facility] Comment on above: Performed By: #### Aruna Olivas, CH8 #### S PATHOLOGY LABORATORY [address] [place], [place], CELLS COUNTED TOTAL # IN BLOOD Normal [facility] Comment on above: Performed By: #### Aruna Olivas, RODRIGUEZ8 #### S PATHOLOGY LABORATORY [address] [place], [place], FRAGMENTED RBC Few Normal [facility] Comment on above: Performed By: #### M G, CH8 #### S PATHOLOGY LABORATORY [address] [place], [place], HYPOCHROMASIA Moderate Normal [facility] Comment on above: Performed By: #### M G, CH8 #### S PATHOLOGY LABORATORY [address] [place], MICROCYTOSIS Slight Normal [facility] Comment on above: Performed By: #### M G, CH8 #### S PATHOLOGY LABORATORY [address] [place], [place], OVALOCYTES Few Normal [facility] Comment on above: Performed By: #### M G, CH8 #### S PATHOLOGY LABORATORY [address] [place], [place], No Panel Informationon 01-30 [facility] Assessment AND Plan Noteon 0 01-29-2025 Parts Back Counter Man Authentication Interface Message Text --trend CBC daily, [...] will need to restart Eliquis Normal [email or web address] [employer] Interface Message Text --chronic. stable. 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 Whittaker or until Eliquis restarted. Normal [facility] [email or web address] [facility] BASIC METABOLIC PANELon 08-2 Anion gap [Moles/Vol] 9 mmol/L Low 10-20 [email or web address] Comment on above: Performed By: #### M Deisy, CH8 #### S PATHOLOGY LABORATORY [address] [place], [place], Calcium [Mass/Vol] 7.9 mg/dL Low 8.6-10.3 [email or web address] Comment on above: Performed By: #### Aruna Olivas, CH8 #### S PATHOLOGY LABORATORY [address] [place], [place], Chloride [Moles/Vol] 112 mmol/L High 98-107 [facility] Comment on above: Performed By: #### Aruna Olivas, CH8 #### S PATHOLOGY LABORATORY [address] [place], [place], CO2 [Moles/Vol] 24 mmol/L Normal 21-31 [facility] Comment on above: Performed By: #### Aruna Olivas, CH8 #### S PATHOLOGY LABORATORY [address] [place], [place], Creatinine [Mass/Vol] 0.52 mg/dL Low 0.60-1.20 [facility] Comment on above: Performed By: #### Aruna Olivas, CH8 #### [facility] [address] [place], [place], ESTIMATED GFR (CKD-EPI) 93 mL/min/1.73sqm Normal >=60 [facility] [email or web address] [facility] Comment on above: Result Comment: 2020 [...] Inclusion of Race in Diagnosing Kidney Disease. Somali Journal of Kidney Diseases 2021;79(2):268-88.e1. 2. N Engl J Med 1 Vol. 385 Issue 19 Pages 9483-3255 Performed By: #### Aruna Olivas, CH8 #### S PATHOLOGY LABORATORY [address] [place], [place], Glucose [Mass/Vol] 105 mg/dL Normal 74-109 [email or web address] Comment on above: Performed By: #### Aruna Olivas, CH8 #### S PATHOLOGY LABORATORY [address] [place], [place], Potassium [Moles/Vol] 3.4 mmol/L Low 3.5-5.0 [facility] Comment on above: Performed By: #### Aruna Olivas, CH8 #### S PATHOLOGY LABORATORY [address] [place], [place], Sodium [Moles/Vol] 142 mmol/L Normal 136-145 [facility] Comment on above: Performed By: #### Aruna Deisy, CH8 #### S PATHOLOGY LABORATORY [address] [place], [place], Urea nitrogen [Mass/Vol] 5 mg/dL Low 7-25 [facility] Comment on above: Performed By: #### Aruna Deisy, CH8 #### S PATHOLOGY LABORATORY [address] [place], [place], Basic metabolic 2000 panelon 01-29-2025 Anion [...] CKD-EPI (S/P/Bld) [Vol rate/Area] 93 - PINF [facility] Comment on above: 2020 CKD EPI Equatio [...] Inclusion of Race in Diagnosing Kidney Disease. Somali Journal of Kidney Diseases 2021;79(2):268-88.e1. 2. N Engl J Med 1 Vol. 385 Issue 19 Pages 1032-8805 Glucose [Mass/Vol] 105 mg/dL 74 - 109 [...] [#/Vol] 5.44 10*3/uL 1.50 - 8.00 K/uL [facility] Neutrophils/100 WBC (Bld) 69.5 % 31.0 - 76.0 % [facility] Platelet mean volume (Bld) [Entitic vol] 8.2 fL 7.5 - 11.2 fL [facility] Platelets (Bld) [#/Vol] 174 10*3/uL 150 - 400 K/uL [facility] RBC (Bld) [#/Vol] 3.36 10*6/uL Low [facility] WBC (Bld) [#/Vol] 7.8 10*3/uL 4.5 - 11.5 K/uL [facility] WITH DIFFERENTIALon 01-08 Basophils (Bld) [#/Vol] 0.05 10*3/uL Normal 0.00-0.20 [facility] Comment on above: Performed By: #### Aruna Olivas, CH8 #### [facility] [address] [place] [address], Basophils/100 WBC (Bld) 0.7 % Normal <=1.9 [facility] Comment on above: Performed By: #### Aruna Olivas, CH8 #### [facility] [address] [place] [address], Eosinophils (Bld) [#/Vol] 0.19 10*3/uL Normal 0.00-0.70 [facility] Comment on above: Performed By: #### Aruna Olivas, CH8 #### [facility] [address] [place] [address], Eosinophils/100 WBC (Bld) 2.5 % Normal 0.1-4.0 [facility] Comment on above: Performed By: #### Aruna Olivas, CH8 #### [facility] [address] [place] [address], Erythrocyte distribution width (RBC) [Ratio] 20.9 % High 11.5-14.5 [facility] Comment on above: Performed By: #### Aruna Olivas, CH8 #### [facility] [address] [place] [address], Hematocrit (Bld) [Volume fraction] 24.9 % Low 36.0-46.0 [facility] Comment on above: Performed By: #### Aruna Olivas, CH8 #### [facility] [address] [place] [address], Hemoglobin (Bld) [Mass/Vol] 7.8 g/dL Low 12.0-15.0 [facility] Comment on above: Performed By: #### Aruna Olivas, CH8 #### [facility] [address] [place] [address], Lymphocytes (Bld) [#/Vol] 1.00 10*3/uL Normal 1.00-4.80 [facility] Comment on above: Performed By: #### Aruna Olivas, CH8 #### [facility] [address] [place] [address], Lymphocytes/100 WBC (Bld) 12.8 % Low 24.0-44.0 [facility] Comment on above: Performed By: #### Aruna Olivas, CH8 #### [facility] [address] [place] [address], MCH (RBC) [Entitic mass] 23.2 pg Low 26.0-34.0 [facility] Comment on above: Performed By: #### Aruna Olivas, CH8 #### [facility] [address] [place] [address], MCHC (RBC) [Mass/Vol] 31.4 g/dL Low 32.0-35.9 [facility] Comment on above: Performed By: #### Aruna Olivas, CH8 #### [facility] [address] [place] [address], MCV (RBC) [Entitic vol] 74 fL Low 80-100 [facility] Comment on above: Performed By: #### Aruna Olivas, CH8 #### [facility] [address] [place] [address], Monocytes (Bld) [#/Vol] 1.14 10*3/uL High 0.20-1.00 [facility] Comment on above: Performed By: #### Aruna Olivas, CH8 #### [facility] [address] [place] [address], Monocytes/100 WBC (Bld) 14.6 % High 2.0-11.0 [facility] Comment on above: Performed By: #### Aruna Olivas, CH8 #### [facility] [address] [place] [address], Neutrophils (Bld) [#/Vol] 5.44 10*3/uL Normal 1.50-8.00 [facility] Comment on above: Performed By: #### Aruna Olivas, CH8 #### [facility] [address] [place] [address], Neutrophils/100 WBC (Bld) 69.5 % Normal 31.0-76.0 [facility] Comment on above: Performed By: #### Aruna Olivas, CH8 #### [facility] [address] [place] [address], Platelet mean volume (Bld) [Entitic vol] 8.2 fL Normal 7.5-11.2 [facility] Comment on above: Performed By: #### Aruna Olivas, CH8 #### [facility] [address] [place] [address], Platelets (Bld) [#/Vol] 174 10*3/uL Normal 150-400 [facility] Comment on above: Performed By: #### Aruna Olivas, CH8 #### [facility] [address] [place] [address], RBC (Bld) [#/Vol] 3.36 10*6/uL Low 4.00-5.20 [facility] Comment on above: Performed By: #### Aruna Olivas, CH8 #### [facility] [address] [place], [place], WBC (Bld) [#/Vol] 7.8 10*3/uL Normal 4.5-11.5 [facility] Comment on above: Performed By: #### Aruna Olivas, CH8 #### [facility] [address] [place] [address], MAGNESIUMon 01-29-2025 Interpretation and review of laboratory results Normal [facility] Magnesium [Mass/Vol] 1.9 mg/dL 1.9 - 2 .7 mg/dL [facility] Magnesium [Mass/Vol] 1.9 mg/dL Normal 1.9-2.7 [facility] Comment on above: Performed By: #### Aruna Olivas, CH8 #### S PATHOLOGY LABORATORY [address] [place] [address], MANUAL DIFF AND MORPHon 01-08 Acanthocytes LM Ql (Bld) Moderate [facility] Cells Counted Total (Bld) [#] [facility] Microcytes Ql (Bld) Slight [facility] Ovalocytes LM Ql (Bld) Few [facility] RBC.hypochromic/100 RBC Auto (Bld) Moderate [facility] Schistocytes LM Ql (Bld) Few [facility] ACANTHOCYTES Moderate Normal [facility] Comment on above: Performed By: #### Aruna Olivas, CH8 #### S PATHOLOGY LABORATORY [address] [place] [address], CELLS COUNTED TOTAL # IN BLOOD Normal [facility] Comment on above: Performed By: #### Aruna Olivas, CH8 #### S PATHOLOGY LABORATORY [address] [place] [address], FRAGMENTED RBC Few Normal [facility] Comment on above: Performed By: #### Aruna Olivas, CH8 #### S PATHOLOGY LABORATORY [address] [place] [address], HYPOCHROMASIA Moderate Normal [facility] Comment on above: Performed By: #### Aruna Olivas, CH8 #### S PATHOLOGY LABORATORY [address] [place] [address], MICROCYTOSIS Slight Normal [facility] Comment on above: Performed By: #### Aruna Olivas, CH8 #### S PATHOLOGY LABORATORY [address] [place] [address], OVALOCYTES Few Normal [facility] Comment on above: Performed By: #### Aruna Olivas, CH8 #### S PATHOLOGY LABORATORY [address] [place] [address], No Panel InformationOrdered By: Sayra Dudley on 01-29-2025 [facility] No Panel Informationon 01-29 [facility] Transfer Noteon 01-29-2025 Parts Back Counter Man Authentication Interface Message Text . TRANSFER NOTE Patient: Ms. 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 Patient who currently resides [facility] ([facility] where she was found to have significant bright red blood in her stool following multiple episodes of diarrhea on the morning of 01/24. They were transferred to the [facility] ED later that day for further evaluation. [...] Aspirin 81 mg [] Voiding trial Disposition: [facility] facility Inpatient CONSULTS: IP GASTROENTEROLOGY CONSULT Outpatient f/u: PCP F/u angiography in 3 months PROBLEM LIST: Rectal bleed s/p colonoscopy 01/27 Hepatic artery aneurysm s/p coiling 01/28 Nelda James DO Family Medicine, PGY2 FM Pager: [phone] Normal [email or web address] BASIC METABOLIC PANELon 01-08 Anion gap [Moles/Vol] 11 mmol/L Normal 10-20 [email or web address] Comment on above: Performed By: #### Aruna Olivas, CH8 ####[facility] [id number] [place], [place], Calcium [Mass/Vol] 7.8 mg/dL Low 8.6-10.3 [email or web address] Comment on above: Performed By: #### Aruna Olivas, CH8 ####[facility] [id number] [place], [place], Chloride [Moles/Vol] 113 mmol/L High 98-107 [email or web address] Comment on above: Performed By: #### Aruna G, CH8 ####[facility] [id number] [place], CO2 [Moles/Vol] 21 mmol/L Normal 21-31 [email or web address] Comment on above: Performed By: #### Aruna G, CH8 ####[facility] [id number] [place], Creatinine [Mass/Vol] 0.56 mg/dL Low 0.60-1.20 [email or web address] Comment on above: Performed By: #### Aruna G, CH8 ####[facility] [id number] [place], ESTIMATED GFR (CKD-EPI) 91 mL/min/1.73sqm Normal >=60 [email or web address] Comment on above: Result Comment: 2020 CKD EPI Equation using Creatinine without Race Comment: Estimated glomerular filtration rate (eGFR) is calculated without a race coefficient. Values should be interpreted in the context of the patient's full clinical presentation. Reference: 1. Raul C, Adalgisa Valdovinos, Elizabeth MITCHELL, et al.. A Unifying Approach for GFR Estimation: Recommendations of the NKF-ASN Task Force on Reassessing the Inclusion of Race in Diagnosing Kidney Disease. [place]i Journal of Kidney Diseases 2021;79(2):268-88.e1. 2. N Engl J Med 2020 Vol. 385 Issue 19 Pages 6053-0993 Performed By: #### Aruna Olivas, CH8 ####S PATHOLOGY [id number] [place], Glucose [Mass/Vol] 135 mg/dL High 74-109 [facility] Comment on above: Performed By: #### Aruna Olivas, CH8 ####S PATHOLOGY [id number] [place], Potassium [Moles/Vol] 3.2 mmol/L Low 3.5-5.0 [facility] Comment on above: Performed By: #### Aruna Olivas, CH8 ####S PATHOLOGY [id number] [place], Sodium [Moles/Vol] 142 mmol/L Normal 136-145 [facility] Comment on above: Performed By: #### Aruna Olivas, CH8 ####S PATHOLOGY [id number] [place], Urea nitrogen [Mass/Vol] 7 mg/dL Normal 7-25 [facility] Comment on above: Performed By: #### Aruan Olivas, CH8 ####S PATHOLOGY [id number] [place], [place], Basic metabolic 2000 panelon 01-28-2025 Anion gap [Moles/Vol] 11 mmol/L 10 - 20 [facility] Calcium [Mass/Vol] 7.8 mg/dL Low 8.6 - 10. 3 mg/dL [facility] Chloride [Moles/Vol] 113 mmol/L High 98 - 10 7 mmol/L [facility] CO2 [Moles/Vol] 21 mmol/L 21 - 31 mmol/L [facility] Creatinine [Mass/Vol] 0.56 mg/dL Low 0.60 - 1.20 mg/dL [facility] GFR/1.73 sq M.predicted CKD-EPI (S/P/Bld) [Vol rate/Area] 91 - PINF [facility] Comment on above: 2020 [...] Inclusion of Race in Diagnosing Kidney Disease. [place] Journal of Kidney Diseases 2021;79(2):268-88.e1. 2. N Engl J Med 2020 Vol. 385 Issue 19 Pages 4071-1629 Glucose [Mass/Vol] 135 mg/dL High 74 - [...] (Bld) [#/Vol] 0.10 10*3/uL Normal 0.00-0.20 [facility] Comment on above: Performed By: ###FREDERICK BRUNSON ####[facility] [id number] [place], Basophils/100 WBC (Bld) 1.3 % Normal <=1.9 [facility] Comment on above: Performed By: ###FREDERICK BRUNSON ####[facility] [id number] [place], Eosinophils (Bld) [#/Vol] 0.22 10*3/uL Normal 0.00-0.70 [facility] Comment on above: Performed By: ###FREDERICK BRUNSON ####[facility] [id number] [place], Eosinophils/100 WBC (Bld) 2.8 % Normal 0.1-4.0 [facility] Comment on above: Performed By: #### FREDERICK YOUNG ####[facility] [id number] [place], Erythrocyte distribution width (RBC) [Ratio] 20.5 % High 11.5-14.5 [facility] Comment on above: Performed By: #### FREDERICK YONUG ####[facility] [id number] [place], Hematocrit (Bld) [Volume fraction] 23.7 % Low 36.0-46.0 [facility] Comment on above: Performed By: #### FREDERICK YOUNG ####[facility] [id number] [place], Hemoglobin (Bld) [Mass/Vol] 7.4 g/dL Low 12.0-15.0 [facility] Comment on above: Performed By: #### FREDERICK YOUNG ####[facility] [id number] [place], Lymphocytes (Bld) [#/Vol] 0.92 10*3/uL Low 1.00-4.80 [facility] Comment on above: Performed By: #### FREDERICK YOUNG ####[facility] PATHOLOGY [id number] [place], Lymphocytes/100 WBC (Bld) 11.5 % Low 24.0-44.0 [facility] Comment on above: Performed By: #### FREDERICK YOUNG ####S PATHOLOGY [id number] [place], MCH (RBC) [Entitic mass] 23.2 pg Low 26.0-34.0 [facility] Comment on above: Performed By: #### FREDERICK YOUNG ####S PATHOLOGY [id number] [place], MCHC (RBC) [Mass/Vol] 31.3 g/dL Low 32.0-35.9 [facility] Comment on above: Performed By: ###FREDERICK BRUNSON ####[facility] PATHOLOGY [id number] [place], MCV (RBC) [Entitic vol] 74 fL Low 80-100 [facility] Comment on above: Performed By: ###FREDERICK BRUNSON ####[facility] PATHOLOGY [id number] [place], Monocytes (Bld) [#/Vol] 1.05 10*3/uL High 0.20-1.00 [facility] Comment on above: Performed By: ###FREDERICK BRUNSON ####[facility] PATHOLOGY [id number] [place] [address], Monocytes/100 WBC (Bld) 13.1 % High 2.0-11.0 [facility] Comment on above: Performed By: ###FREDERICK BRUNSON ####[facility] PATHOLOGY [id number] [place] [address], Neutrophils (Bld) [#/Vol] 5.71 10*3/uL Normal 1.50-8.00 [facility] Comment on above: Performed By: ###FREDERICK BRUNSON ####[facility] PATHOLOGY [id number] [place] [address], Neutrophils/100 WBC (Bld) 71.3 % Normal 31.0-76.0 [facility] Comment on above: Performed By: ###FREDERICK BRUNSON ####[facility] PATHOLOGY [id number] [place] [address], Platelet mean volume (Bld) [Entitic vol] 8.2 fL Normal 7.5-11.2 [facility] Comment on above: Performed By: ###FREDERICK BRUNSON ####S PATHOLOGY [id number] [place] [address], Platelets (Bld) [#/Vol] 177 10*3/uL Normal 150-400 [facility] Comment on above: Performed By: ###FREDERICK BRUNSON ####[facility] [id number] [place], [place], RBC (Bld) [#/Vol] 3.21 10*6/uL Low 4.00-5.20 [email or web address] Comment on above: Performed By: #### FREDREICK YOUNG ####[facility] PATH[facility] [id number] [place], [place], WBC (Bld) [#/Vol] 8.0 10*3/uL Normal 4.5-11.5 [email or web address] Comment on above: Performed By: #### FREDERICK YOUNG ####S PATHOLOGY [id number] [place], [place], Care Plan Noteon 01-28-2025 Parts Back Counter Man Authentication Interface Message Text Spoke with Pt's [...] verbalized understanding. 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 Will continue to follow, Ava Hays Data Warehousing Specialist Pager#[phone] Time spent on patient care: 15 minutes [1] No past medical history on file. Normal [email or web address] Discharge Planning Noteon Parts Back Counter Man Authentication Interface Message Text SW/CM aware that patient meets criteria for SNF. Met with pt son via phone call discuss dispo. Patient open and agreeable to SNF placement. CM/SW provided pt son the quality and resource use measure data from available post-acute (PAC) providers, that best align with the patient's treatment goals and preferences from the medicare.gov compare site for SNF. [place] of Choice was provided to the patient/patient disability representative. For SNF: RN/MD to complete [employer]. Signature page placed on patient's chart for MD signature. [id number] initiated in [facility] Pt will require a pre-cert/LOC. SW/CM will follow up for choices. Referral sent to [facility] which is the sister SNF for Buddy JONES. CM will continue to follow Breanna Wilder MSN, RN Inpatient Environmental Protection Inspector [id number]/[id number] Cell eplit-[phone] Desk Dwerg-[phone] Normal [email or web address] MAGNESIUMon 01-28-2025 Interpretation and review of laboratory results Normal [facility] Magnesium [Mass/Vol] 1.9 mg/dL 1.9 - 2 .7 mg/dL [facility] Magnesium [Mass/Vol] 1.9 mg/dL Normal 1.9-2.7 [facility] Comment on above: Performed By: #### Aruna Olivas CH8 ####S PATHOLOGY [id number] [place], [place], MANUAL DIFF AND MORPHon 08 Acanthocytes LM Ql (Bld) Few [facility] Carlos cells LM Ql (Bld) Few [facility] Cells Counted Total (Bld) [#] [facility] Microcytes Ql (Bld) Slight [facility] Ovalocytes LM Ql (Bld) Few [facility] RBC.hypochromic/100 RBC Auto (Bld) Moderate [facility] Schistocytes LM Ql (Bld) Few [facility] ACANTHOCYTES Few Normal [facility] Comment on above: Performed By: #### FREDERICK YOUNG ####[facility] PATHOLOG[facility] [id number] [place], [place], CARLOS CELLS Few Normal [facility] Comment on above: Performed By: #### FREDERICK YOUNG ####[facility] PATH[facility]Y [id number] [place] [address], CELLS COUNTED TOTAL # IN BLOOD Normal [facility] Comment on above: Performed By: #### FREDERICK YOUNG ####[facility] PATHOLOGY [id number] [place], [place], FRAGMENTED RBC Few Normal [facility] Comment on above: Performed By: #### FREDERICK YOUNG ####[facility] PATH[facility] [id number] [place], HYPOCHROMASIA Moderate Normal [facility] Comment on above: Performed By: ###FREDERICK BRUNSON ####[facility] PATHOLOGY [id number] [place], MICROCYTOSIS Slight Normal [facility] Comment on above: Performed By: #### FREDERICK YOUNG ####[facility] PATH[facility]Y [id number] [place], OVALOCYTES Few Normal [facility] Comment on above: Performed By: #### FREDERICK YOUNG ####S PATHOLOGY [id number] [place], [place], No Panel Informationon 01-28 [facility] PROTHROMBIN TIME AND INRon 0 01-28-2025 INR Coag (PPP) [Relative time] 1.05 {INR} 0.90 - 1.10 [facility] Interpretation and review of laboratory results Normal [facility] PT Coag (PPP) [Time] 11.8 s [facility] INR Coag (PPP) [Relative time] 1.05 {INR} Normal 0.90-1.10 [facility] Comment on above: Performed By: #### M Deisy, CH8 #### [facility] [address] [place], [place], PT Coag (PPP) [Time] 11.8 s Normal 9.7-12.9 [facility] Comment on above: Performed By: #### Aruna Olivas, CH8 #### [facility] [address] [place], [place], Progress Noteson 01-28-2025 Parts Back Counter Man Authentication Interface Message Text 1200- offered patient to get up and walk and to get into chair. Patient refused. Patient family insisting patient get up and move and walk. Attempted this with patient, patient refused at this time. Patient educated importance of movement and getting up, patient also educated on NPO status. Patient aware and agreeable to NPO. Normal [email or web address] Parts Back Counter Man Authentication Interface Message Text Division of Pulmonary, [...] Pulmonary, Critical Care, AND Sleep Medicine [facility] PIN [id number] [1] Social History Tobacco Use Smoking Status Not on file Smokeless Tobacco Not on file Normal [email or web address] BASIC METABOLIC PANELon 08-2 Anion gap [Moles/Vol] 13 mmol/L Normal 10-20 [email or web address] Comment on above: Performed By: #### Aruna Olivas, CH8 #### S PATHOLOGY LABORATORY [address] [place], [place], Calcium [Mass/Vol] 7.8 mg/dL Low 8.6-10.3 [email or web address] Comment on above: Performed By: #### Aruna Olivas, CH8 #### [facility] [address] [place], [place], Chloride [Moles/Vol] 112 mmol/L High 98-107 [email or web address] Comment on above: Performed By: #### Aruna Olivas, CH8 #### S PATHOLOGY LABORATORY [address] [place] [address], CO2 [Moles/Vol] 23 mmol/L Normal 21-31 [email or web address] Comment on above: Performed By: #### Aruna Olivas, CH8 #### S PATHOLOGY LABORATORY [address] [place], [place], Creatinine [Mass/Vol] 0.54 mg/dL Low 0.60-1.20 [email or web address] Comment on above: Performed By: #### Aruna Olivas, CH8 #### S PATHOLOGY LABORATORY [address] [place], [place], ESTIMATED GFR (CKD-EPI) 92 mL/min/1.73sqm Normal >=60 [email or web address] Comment on above: Result Comment: 2020 [...] Inclusion of Race in Diagnosing Kidney Disease. Somali Journal of Kidney Diseases 202;79(2):268-88.e1. 2. N Engl J Med 1 Vol. 385 Issue 19 Pages [phone] Performed By: #### Aruna Olivas, CH8 #### S PATHOLOGY LABORATORY [address] [place], [place], Glucose [Mass/Vol] 68 mg/dL Low 74-109 [facility] Comment on above: Performed By: #### Aruna Olivas, CH8 #### S PATHOLOGY LABORATORY [address] [place], [place], Potassium [Moles/Vol] 3.2 mmol/L Low 3.5-5.0 [facility] Comment on above: Performed By: #### Aruna Olivas, CH8 #### S PATHOLOGY LABORATORY [address] [place], [place], Sodium [Moles/Vol] 145 mmol/L Normal 136-145 [facility] Comment on above: Performed By: #### Aruna Olivas, CH8 #### S PATHOLOGY LABORATORY [address] [place], [place], Urea nitrogen [Mass/Vol] 5 mg/dL Low 7-25 [facility] Comment on above: Performed By: #### Aruna Olivas, CH8 #### [facility] PATHOLOGY LABORATORY [address] [place], [place], Basic metabolic 2000 panelon 01-27-2025 Anion gap [Moles/Vol] 13 mmol/L 10 - 20 [facility] Calcium [Mass/Vol] 7.8 mg/dL Low 8.6 - 10. 3 mg/dL [facility] Chloride [Moles/Vol] 112 mmol/L High 98 - 10 7 mmol/L [facility] CO2 [Moles/Vol] 23 mmol/L 21 - 31 mmol/L [facility] Creatinine [Mass/Vol] 0.54 mg/dL Low 0.60 - 1.20 mg/dL [facility] GFR/1.73 sq M.predicted CKD-EPI (S/P/Bld) [Vol rate/Area] 92 - PINF [facility] Comment on above: 2020 CKD EPI Equatio [...] Inclusion of Race in Diagnosing Kidney Disease. Somali Journal of Kidney Diseases 2021;79(2):268-88.e1. 2. N Engl J Med 2020 Vol. 385 Issue 19 Pages 2595-6424 Glucose [Mass/Vol] 68 mg/dL Low 74 - [...] [#/Vol] 7.7 10*3/uL 4.5 - 11.5 K/uL [facility] CBC WITH DIFFERENTIALon 01-08 Basophils (Bld) [#/Vol] 0.04 10*3/uL Normal 0.00-0.20 [facility] Comment on above: Performed By: #### Aruna Olivas CH8 #### [facility] PATHOLOGY LABORATORY [address] [place] [address], Basophils/100 WBC (Bld) 0.5 % Normal <=1.9 [facility] Comment on above: Performed By: #### Aruna Olivas, CH8 #### S PATHOLOGY LABORATORY [address] [place] [address], Eosinophils (Bld) [#/Vol] 0.10 10*3/uL Normal 0.00-0.70 [facility] Comment on above: Performed By: #### Aruna Olivas CH8 #### S PATHOLOGY LABORATORY [address] [place], [place], Eosinophils/100 WBC (Bld) 1.3 % Normal 0.1-4.0 [facility] Comment on above: Performed By: #### Aruna Olivas, CH8 #### S PATHOLOGY LABORATORY [address] [place], [place], Erythrocyte distribution width (RBC) [Ratio] 20.0 % High 11.5-14.5 [facility] Comment on above: Performed By: #### Aruna Olivas, CH8 #### [facility] PATHOLOGY LABORATORY [address] [place] [address], Hematocrit (Bld) [Volume fraction] 24.6 % Low 36.0-46.0 [facility] Comment on above: Performed By: #### Aruna Olivas, CH8 #### [facility] PATHOLOGY LABORATORY [address] [place] [address], Hemoglobin (Bld) [Mass/Vol] 7.9 g/dL Low 12.0-15.0 [facility] Comment on above: Performed By: #### Aruna Olivas, CH8 #### [facility] PATHOLOGY LABORATORY [address] [place] [address], Lymphocytes (Bld) [#/Vol] 0.83 10*3/uL Low 1.00-4.80 [facility] Comment on above: Performed By: #### Aruna Olivas, CH8 #### [facility] PATHOLOGY LABORATORY [address] [place] [address], Lymphocytes/100 WBC (Bld) 10.8 % Low 24.0-44.0 [facility] Comment on above: Performed By: #### Aruna Olivas, CH8 #### [facility] PATHOLOGY LABORATORY [address] [place] [address], MCH (RBC) [Entitic mass] 23.2 pg Low 26.0-34.0 [facility] Comment on above: Performed By: #### Aruna Olivas, CH8 #### [facility] PATHOLOGY LABORATORY [address] [place] [address], MCHC (RBC) [Mass/Vol] 32.1 g/dL Normal 32.0-35.9 [facility] Comment on above: Performed By: #### Aruna Olivas, CH8 #### [facility] PATHOLOGY LABOR[facility]ORY [address] [place] [address], MCV (RBC) [Entitic vol] 72 fL Low 80-100 [facility] Comment on above: Performed By: #### Aruna Olivas, CH8 #### [facility] PATHOLOGY LABORATORY [address] [place] [address], Monocytes (Bld) [#/Vol] 0.92 10*3/uL Normal 0.20-1.00 [facility] Comment on above: Performed By: #### Aruna Olivas, CH8 #### [facility] PATHOLOGY LABORATORY [address] [place] [address], Monocytes/100 WBC (Bld) 11.9 % High 2.0-11.0 [facility] Comment on above: Performed By: #### Aruna Olivas, CH8 #### [facility] PATHOLOGY LABORATORY [address] [place] [address], Neutrophils (Bld) [#/Vol] 5.82 10*3/uL Normal 1.50-8.00 [facility] Comment on above: Performed By: #### Aruna Olivas, CH8 #### [facility] PATHOLOGY LABORATORY [address] [place] [address], Neutrophils/100 WBC (Bld) 75.5 % Normal 31.0-76.0 [facility] Comment on above: Performed By: #### Aruna Olivas, CH8 #### [facility] PATHOLOGY LABORATORY [address] [place] [address], Platelet mean volume (Bld) [Entitic vol] 8.6 fL Normal 7.5-11.2 [facility] Comment on above: Performed By: #### Aruna Olivas, CH8 #### [facility] PATHOLOGY LABOR[facility]ORY [address] [place] [address], Platelets (Bld) [#/Vol] 189 10*3/uL Normal 150-400 [facility] Comment on above: Performed By: #### Aruna Olivas, CH8 #### [facility] PATHOLOGY LABORATORY [address] [place], [place], RBC (Bld) [#/Vol] 3.40 10*6/uL Low 4.00-5.20 [facility] Comment on above: Performed By: #### Aruna Olivas, CH8 #### [facility] PATHOLOGY LABORATORY [address] [place] [address], WBC (Bld) [#/Vol] 7.7 10*3/uL Normal 4.5-11.5 [facility] Comment on above: Performed By: #### M G, CH8 #### [facility] [address] [place] [address], [phone] Care Plan Noteon 01-27-2025 Parts Back Counter Man Authentication Interface Message Text I tried at least thrice to reach her son to update on her colonoscopy but with no avail. Normal [email or web address] H AND Luis Felipe 01-27-2025 Parts Back Counter Man Authentication Interface Message Text Ely Hurtado [id number] 01/27/2025 HISTORY AND PHYSICAL: Patient's history with [...] Parikh MD 01/27/2025 3:34 PM Normal [email or web address] MAGNESIUMon 01-27-2025 Interpretation and review of laboratory results Normal [facility] Magnesium [Mass/Vol] 2 mg/dL 1.9 - 2 .7 mg/dL [facility] Magnesium [Mass/Vol] 2.0 mg/dL Normal 1.9-2.7 [facility] Comment on above: Performed By: #### Aruna Olivas, CH8 #### S PATHOLOGY LABORATORY [address] [place] [address], MANUAL DIFF AND MORPHon 01-08 Cells Counted Total (Bld) [#] [facility] Microcytes Ql (Bld) Slight [facility] Ovalocytes LM Ql (Bld) Few [facility] RBC.hypochromic/100 RBC Auto (Bld) Moderate [facility] Schistocytes LM Ql (Bld) Few [facility] CELLS COUNTED TOTAL # IN BLOOD Normal [facility] Comment on above: Performed By: #### Aruna Olivas, CH8 #### S PATHOLOGY LABORATORY [address] [place] [address], FRAGMENTED RBC Few Normal [facility] Comment on above: Performed By: #### Aruna Olivas, CH8 #### S PATHOLOGY LABORATORY [address] [place] [address], HYPOCHROMASIA Moderate Normal [facility] Comment on above: Performed By: #### Aruna Olivas, CH8 #### S PATHOLOGY LABORATORY [address] [place] [address], MICROCYTOSIS Slight Normal [facility] Comment on above: Performed By: #### Aruna Olivas, CH8 #### S PATHOLOGY LABORATORY [address] [place] [address], OVALOCYTES Few Normal [facility] Comment on above: Performed By: #### Aruna Olivas, CH8 #### S PATHOLOGY LABORATORY [address] [place] [address], No Panel InformationOrdered By: Letty Arevalo on 01-27-2025 [facility] No Panel Informationon 01-27 [facility] OP Noteon 01-27-2025 Parts Back Counter Man Authentication Interface Message Text Ely Hurtado 84 year old Surgical Contact Serial Number: [id number] Location: ENDO ADD ON PROCEDURE Date: 01/27/2025 Overhead Line Worker: Juan Parikh MD Attending:Adrien Caraballo MD Procedure(s): [...] transillumination of right lower quadrant. Prep was [place] Bowel Prep Right Colon: Entire colon seen well, [place] Bowel Prep Transverse Colon: Entire colon seen well, [place] Bowel Prep Left Colon:Entire colon seen well [...] + internal hemorrhoids Rectal bleeding (Primary Diagnosis) [079400] Unspecified right bundle-branch block [0142090] Abnormal electrocardiogram (ECG) (EKG) [6688205] Abnormal electrocardiogram (ECG) (EKG) [0299551] ANATOMIC SPECIMEN: Yes SPECIMEN: ID Type Source Tests Collected by Time Destination A : A. ascending colon bx Tissue Ascending colon SURGICAL GI ANATOMIC PATHOLOGY Juan Parikh MD 01/27/20251710 B : rectum bx Tissue Rectum SPECIMEN FOR SURGICAL PATH Juan Parikh MD 01/27/20251711 PHOTOGRAPH TAKEN: Yes Complications during procedure: None [...] Caraballo MD Division of Gastroenterology AND Hepatology [facility] Normal [email or web address] Patient Instructionson 01-27 Parts Back Counter Man Authentication Interface Message Text COLONOSCOPY COLYTE SPLIT PREP DO NOT FOLLOW INSTRUCTIONS ON THE COLYTE BOTTLE Please call [phone] to schedule your procedure WHAT IS A [...] medicati (more content not included)... Normal [email or web address] Progress Noteson 01-27-2025 Parts Back Counter Man Authentication Interface Message Text Division of Pulmonary, [...] Pulmonary, Critical Care, AND Sleep Medicine [email or web address] PIN [id number] [1] Social History Tobacco Use Smoking Status Not on file Smokeless Tobacco Not on file Normal [email or web address] BASIC METABOLIC PANELon 08-2 Anion gap [Moles/Vol] 12 mmol/L Normal - [email or web address] Comment on above: Performed By: #### Aruna Olivas CH8 #### [facility] [address] [place], [place], Calcium [Mass/Vol] 7.9 mg/dL Low 8.6-10.3 [email or web address] Comment on above: Performed By: #### Aruna Olivas CH8 #### [facility] [address] [place], [place], Chloride [Moles/Vol] 110 mmol/L High 98-107 [facility] Comment on above: Performed By: #### Aruna Olivas, CH8 #### S PATHOLOGY LABORATORY [address] [place], [place], CO2 [Moles/Vol] 23 mmol/L Normal 21-31 [facility] Comment on above: Performed By: #### Aruna Olivas, CH8 #### [facility] [address] [place], Creatinine [Mass/Vol] 0.58 mg/dL Low 0.60-1.20 [facility] Comment on above: Performed By: #### Aruna Olivas, CH8 #### S PATHOLOGY LABORATORY [address] [place], ESTIMATED GFR (CKD-EPI) 90 mL/min/1.73sqm Normal >=60 [email or web address] Comment on above: Result Comment: 2020 [...] Inclusion of Race in Diagnosing Kidney Disease. Somali Journal of Kidney Diseases 2021;79(2):268-88.e1. 2. N Engl J Med 2020 Vol. 385 Issue 19 Pages 5496-3139 Performed By: #### Aruna Olivas CH8 #### S PATHOLOGY LABORATORY [address] [place], Glucose [Mass/Vol] 85 mg/dL Normal 74-109 [email or web address] Comment on above: Performed By: #### Aruna Olivas CH8 #### S PATHOLOGY LABORATORY [address] [place], Potassium [Moles/Vol] 3.7 mmol/L Normal 3.5-5.0 [email or web address] Comment on above: Performed By: #### Aruna Olivas, CH8 #### S PATHOLOGY LABORATORY [address] [place], Sodium [Moles/Vol] 141 mmol/L Normal 136-145 [facility] Comment on above: Performed By: #### M G, CH8 #### [facility] [address] [place], [place], Urea nitrogen [Mass/Vol] 9 mg/dL Normal 7-25 [facility] Comment on above: Performed By: #### M G, CH8 #### [facility] [address] [place], [place], Basic metabolic 2000 panelon 01-26-2025 Anion [...] Inclusion of Race in Diagnosing Kidney Disease. Somali Journal of Kidney Diseases 202;79(2):268-88.e1. 2. N Engl J Med 2020 Vol. 385 Issue 19 Pages 3581-1134 Glucose [Mass/Vol] 85 mg/dL 74 - 109 [...] [facility] RBC (Bld) [#/Vol] 3.65 10*6/uL Low [facility] WBC (Bld) [#/Vol] 7.9 10*3/uL 4.5 - 11.5 K/uL [facility] CBC WITH DIFFERENTIALon 01-08-2024 Basophils (Bld) [#/Vol] 0.07 10*3/uL Normal 0.00-0.20 [facility] Comment on above: Performed By: #### Aruna Olivas, CH8 #### [facility] PATH[facility]ORY [address] [place] [address], Basophils/100 WBC (Bld) 0.9 % Normal <=1.9 [facility] Comment on above: Performed By: #### Aruna Olivas, CH8 #### [facility] PATH[facility]ORY [address] [place] [address], Eosinophils (Bld) [#/Vol] 0.05 10*3/uL Normal 0.00-0.70 [facility] Comment on above: Performed By: #### Aruna Olivas, CH8 #### [facility] PATH[facility] [address] [place] [address], Eosinophils/100 WBC (Bld) 0.7 % Normal 0.1-4.0 [facility] Comment on above: Performed By: #### Aruna Olivas, CH8 #### [facility] PATH[facility] [address] [place] [address], Erythrocyte distribution width (RBC) [Ratio] 19.8 % High 11.5-14.5 [facility] Comment on above: Performed By: #### Aruna Olivas, CH8 #### [facility] PATH[facility] [address] [place] [address], Hematocrit (Bld) [Volume fraction] 26.2 % Low 36.0-46.0 [facility] Comment on above: Performed By: #### Aruna Olivas, CH8 #### [facility] [address] [place] [address], Hemoglobin (Bld) [Mass/Vol] 8.4 g/dL Low 12.0-15.0 [facility] Comment on above: Performed By: #### Aruna Olivas, CH8 #### [facility] [address] [place], [place], Lymphocytes (Bld) [#/Vol] 0.78 10*3/uL Low 1.00-4.80 [facility] Comment on above: Performed By: #### Aruna Olivas, CH8 #### [facility] PATH[facility] [address] [place], [place], Lymphocytes/100 WBC (Bld) 9.9 % Low 24.0-44.0 [facility] Comment on above: Performed By: #### Aruna Olivas, CH8 #### [facility] PATH[facility]ORY [address] [place] [address], MCH (RBC) [Entitic mass] 23.0 pg Low 26.0-34.0 [facility] Comment on above: Performed By: #### Aruna Olivas, CH8 #### [facility] PATH[facility] [address] [place] [address], MCHC (RBC) [Mass/Vol] 32.1 g/dL Normal 32.0-35.9 [facility] Comment on above: Performed By: #### Aruna Olivas, CH8 #### [facility] [address] [place], MCV (RBC) [Entitic vol] 72 fL Low 80-100 [facility] Comment on above: Performed By: #### Aruna Olivas, CH8 #### [facility] [address] [place], Monocytes (Bld) [#/Vol] 0.79 10*3/uL Normal 0.20-1.00 [facility] Comment on above: Performed By: #### Aruna Olivas, CH8 #### [facility] [address] [place], [place], Monocytes/100 WBC (Bld) 10.0 % Normal 2.0-11.0 [facility] Comment on above: Performed By: #### Aruna Olivas, CH8 #### [facility] [address] [place], Neutrophils (Bld) [#/Vol] 6.22 10*3/uL Normal 1.50-8.00 [facility] Comment on above: Performed By: #### Aruna Olivas, CH8 #### [facility] [address] [place] [address], Neutrophils/100 WBC (Bld) 78.6 % High 31.0-76.0 [facility] Comment on above: Performed By: #### Aruna Olivas, CH8 #### [facility] [address] [place] [address], Platelet mean volume (Bld) [Entitic vol] 8.3 fL Normal 7.5-11.2 [facility] Comment on above: Performed By: #### Aruna Olivas, CH8 #### [facility] [facility] [address] [place], [place], Platelets (Bld) [#/Vol] 197 10*3/uL Normal 150-400 [facility] Comment on above: Performed By: #### Aruna Olivas, CH8 #### [facility] [address] [place] [address], RBC (Bld) [#/Vol] 3.65 10*6/uL Low 4.00-5.20 [facility] Comment on above: Performed By: #### Aruna Olivas, CH8 #### [facility] [address] [place] [address], WBC (Bld) [#/Vol] 7.9 10*3/uL Normal 4.5-11.5 [facility] Comment on above: Performed By: #### Aruna Olivas, CH8 #### [facility] [address] [place] [address], Basophils (Bld) [#/Vol] 0.07 10*3/uL Normal 0.00-0.20 [facility] Comment on above: Performed By: #### Aruna Olivas, CH8 #### [facility] [address] [place] [address], Basophils/100 WBC (Bld) 0.8 % Normal <=1.9 [facility] Comment on above: Performed By: #### Aruna Olivas, CH8 #### [facility] [address] [place] [address], Eosinophils (Bld) [#/Vol] 0.13 10*3/uL Normal 0.00-0.70 [facility] Comment on above: Performed By: #### Aruna Olivas, CH8 #### [facility] [address] [place] [address], Eosinophils/100 WBC (Bld) 1.4 % Normal 0.1-4.0 [facility] Comment on above: Performed By: #### Aruna Olivas, CH8 #### [facility] [address] [place] [address], Erythrocyte distribution width (RBC) [Ratio] 20.0 % High 11.5-14.5 [facility] Comment on above: Performed By: #### Aruna Olivas, CH8 #### [facility] [address] [place] [address], Hematocrit (Bld) [Volume fraction] 26.8 % Low 36.0-46.0 [facility] Comment on above: Performed By: #### Aruna Olivas, CH8 #### [facility] [address] [place] [address], Hemoglobin (Bld) [Mass/Vol] 8.7 g/dL Low 12.0-15.0 [facility] Comment on above: Performed By: #### Aruna Olivas, CH8 #### [facility] [address] [place] [address], Lymphocytes (Bld) [#/Vol] 1.32 10*3/uL Normal 1.00-4.80 [facility] Comment on above: Performed By: #### Aruna Olivas, CH8 #### [facility] [address] [place] [address], Lymphocytes/100 WBC (Bld) 14.8 % Low 24.0-44.0 [facility] Comment on above: Performed By: #### Aruna Olivas, CH8 #### [facility] [address] [place] [address], MCH (RBC) [Entitic mass] 23.7 pg Low 26.0-34.0 [facility] Comment on above: Performed By: #### Aruna Olivas, CH8 #### [facility] [address] [place], [place], MCHC (RBC) [Mass/Vol] 32.5 g/dL Normal 32.0-35.9 [facility] Comment on above: Performed By: #### Aruna Olivas, CH8 #### [facility] [address] [place], [place], MCV (RBC) [Entitic vol] 73 fL Low 80-100 [facility] Comment on above: Performed By: #### Aruna Olivas, CH8 #### [facility] [address] [place], [place], Monocytes (Bld) [#/Vol] 1.10 10*3/uL High 0.20-1.00 [facility] Comment on above: Performed By: #### Aruna Olivas, CH8 #### [facility] [address] [place], Monocytes/100 WBC (Bld) 12.3 % High 2.0-11.0 [facility] Comment on above: Performed By: #### Aruna Olivas, CH8 #### [facility] [address] [place], Neutrophils (Bld) [#/Vol] 6.28 10*3/uL Normal 1.50-8.00 [facility] Comment on above: Performed By: #### Aruna Olivas, CH8 #### [facility] [address] [place], Neutrophils/100 WBC (Bld) 70.7 % Normal 31.0-76.0 [facility] Comment on above: Performed By: #### Aruna Olivas, CH8 #### [facility] [address] [place], Platelet mean volume (Bld) [Entitic vol] 8.1 fL Normal 7.5-11.2 [facility] Comment on above: Performed By: #### Aruna Olivas, CH8 #### [facility] [address] [place], Platelets (Bld) [#/Vol] 189 10*3/uL Normal 150-400 [facility] Comment on above: Performed By: #### M eDisy, CH8 #### [facility] [address] [place], RBC (Bld) [#/Vol] 3.67 10*6/uL Low 4.00-5.20 [facility] Comment on above: Performed By: #### Aruna Olivas, CH8 #### [facility] [address] [place], WBC (Bld) [#/Vol] 8.9 10*3/uL Normal 4.5-11.5 [facility] Comment on above: Performed By: #### Aruna Olivas, 8 #### [facility] [address] [place], [place], CBC WITH DIFFERENTIALOrdered By: Linda Kang [...] 8.7 g/dL Low 12.0 - 15.0 g/dL [facility] Interpretation and review of laboratory results Abnormal [...] [facility] RBC (Bld) [#/Vol] 3.67 10*6/uL Low [facility] WBC (Bld) [#/Vol] 8.9 10*3/uL 4.5 - 11.5 K/uL [facility] Consultson 01-26-2025 Parts Back Counter Man Authentication Interface Message Text Department of Gastroenterology and Hepatology Consult H AND P Note GI Attending Physician: Dr. Isauro Page MD Patient: Ely Hurtado Location: [place] [address] Reason for Consult: [facility] Ely Hurtado is a 84 year [...] hemoglobin was 6 prior to transferred to [facility]. She received 2 units of RBC transfusion. [...] [place] MD, [place] Gastroenterology Fellow. Consult Pager [phone] Discussed with GI attending, Dr. Adrien Caraballo MD Primary team updated yes. Thank you for involving us in the care of this patient. I appreciate the excellent care from the nursing staff, and applications support lead. Dictated using voice recognition software. Document may [...] Mary Peña. Staff Gastoenterologist Division of Gastroenterology AND Hepatology (more content not included)... Normal [email or web address] MAGNESIUMon 01-26-2025 Interpretation and review of laboratory results Normal [facility] Magnesium [Mass/Vol] 1.9 mg/dL 1.9 - 2 .7 mg/dL [facility] Magnesium [Mass/Vol] 1.9 mg/dL Normal 1.9-2.7 [facility] Comment on above: Performed By: #### Aruna Olivas, CH8 #### S PATH[facility] LABORATORY [address] [place] [address], MANUAL DIFF AND MORPHon 08-2 0 Cells Counted Total (Bld) [#] [facility] Microcytes Ql (Bld) Slight [facility] Ovalocytes LM Ql (Bld) Few [facility] Polychromasia LM Ql (Bld) Slight [facility] RBC.hypochromic/100 RBC Auto (Bld) Moderate [facility] Schistocytes LM Ql (Bld) Few [facility] CELLS COUNTED TOTAL # IN BLOOD Normal [facility] Comment on above: Performed By: #### Aruna Olivas, CH8 #### [facility] [address] [place] [address], FRAGMENTED RBC Few Normal [facility] Comment on above: Performed By: #### Aruna Olivas, CH8 #### [facility] [address] [place] [address], HYPOCHROMASIA Moderate Normal [facility] Comment on above: Performed By: #### Aruna Olivas, CH8 #### [facility] [address] [place] [address], MICROCYTOSIS Slight Normal [facility] Comment on above: Performed By: #### Aruna Olivas, CH8 #### [facility] [address] [place] [address], OVALOCYTES Few Normal [facility] Comment on above: Performed By: #### Aruna Olivas, CH8 #### [facility] [address] [place] [address], POLYCHROMASIA Slight Normal [facility] Comment on above: Performed By: #### Aruna Olivas, CH8 #### [facility] [address] [place] [address], Acanthocytes LM Ql (Bld) Few [facility] Olivet cells LM Ql (Bld) Few [facility] Cells Counted Total (Bld) [#] [facility] Microcytes Ql (Bld) Slight [facility] Ovalocytes LM Ql (Bld) Few [facility] Polychromasia LM Ql (Bld) Slight [facility] RBC.hypochromic/100 RBC Auto (Bld) Moderate [facility] Schistocytes LM Ql (Bld) Few [facility] ACANTHOCYTES Few Normal [facility] Comment on above: Performed By: #### M Deisy, CH8 #### S [facility]AT[facility] [address] [place] [address], CARLOS CELLS Few Normal [facility] Comment on above: Performed By: #### M G, CH8 #### [facility] [address] [place] [address], CELLS COUNTED TOTAL # IN BLOOD Normal [facility] Comment on above: Performed By: #### M Deisy, CH8 #### [facility] [address] [place] [address], FRAGMENTED RBC Few Normal [facility] Comment on above: Performed By: #### Aruna Olivas, CH8 #### [facility] [address] [place] [address], HYPOCHROMASIA Moderate Normal [facility] Comment on above: Performed By: #### Aruna Olivas, CH8 #### [facility] [address] [place] [address], MICROCYTOSIS Slight Normal [facility] Comment on above: Performed By: #### M Deisy, CH8 #### [facility] [address] [place] [address], OVALOCYTES Few Normal [facility] Comment on above: Performed By: #### M Deisy, CH8 #### [facility] [address] [place] [address], POLYCHROMASIA Slight Normal [facility] Comment on above: Performed By: #### Aruna Olivas, CH8 #### [facility] [address] [place] [address], No Panel InformationOrdered By: Eliana Kelsey on 01-26-2025 [facility] No Panel InformationOrdered By: Linda Kang on 01-26-2025 [facility] No Panel Informationon 01-26 [facility] Progress Noteson 01-26-2025 Parts Back Counter Man Authentication Interface Message Text Division of Pulmonary, [...] with hematochezia x 1 day. Presented to [facility]. Hgb decreased to 6.2. Received 2U PRBCs. [...] Pulmonary, Critical Care, AND Sleep Medicine [email or web address] PIN [id number] [1] Social History Tobacco Use Smoking Status Not on file Smokeless Tobacco Not on file Normal [email or web address] Absolute lymphocyte countOrd ered By: Jennie Navarro on 01-25-2025 Lymphocytes Auto (Unsp spec) [#/Vol] 1.53 10*3/uL 0.83-4.51 [facility] Absolute neutrophil countOrd ered By: Jennie Navarro on 01-25-2025 Neutrophils (Bld) [#/Vol] 5.2 10*3/uL 2.0-7.7 [facility] Automated lymphocyte count a s percentage of total leukocytesOrdered By: Jennie Navarro on 01-25-2025 Lymphocytes/100 WBC Auto (Unsp spec) 19.2 % 19-41 [facility] BASIC METABOLIC PANELon 01-07 Anion gap [Moles/Vol] 12 mmol/L Normal 10-20 [email or web address] Comment on above: Performed By: #### C H8, MG, HEPATIC #### [facility] [address] [place], [place], Calcium [Mass/Vol] 8.3 mg/dL Low 8.6-10.3 [email or web address] Comment on above: Performed By: #### C H8, MG, HEPATIC #### [facility] [address] [place], [place], Chloride [Moles/Vol] 108 mmol/L High 98-107 [email or web address] Comment on above: Performed By: #### C H8, MG, HEPATIC #### [facility] [address] [place], [place], CO2 [Moles/Vol] 26 mmol/L Normal 21-31 [email or web address] Comment on above: Performed By: #### C H8, MG, HEPATIC #### [facility] [address] [place], [place], Creatinine [Mass/Vol] 0.61 mg/dL Normal 0.60-1.20 [email or web address] Comment on above: Performed By: #### C H8, MG, HEPATIC #### [facility] [address] [place], [place], ESTIMATED GFR (CKD-EPI) 89 mL/min/1.73sqm Normal >=60 [email or web address] Comment on above: Result Comment: 2020 [...] Inclusion of Race in Diagnosing Kidney Disease. [place] Journal of Kidney Diseases 2021;79(2):268-88.e1. 2. N Engl J Med 1 Vol. 385 Issue 19 Pages [phone] Performed By: #### C H8, MG, HEPATIC #### [facility] [address] [place], [place], Glucose [Mass/Vol] 98 mg/dL Normal 74-109 [email or web address] Comment on above: Performed By: #### C H8, MG, HEPATIC #### [facility] [address] [place], [place], Potassium [Moles/Vol] 3.8 mmol/L Normal 3.5-5.0 [facility] Comment on above: Performed By: #### C H8, MG, HEPATIC #### [facility] [address] [place], [place], Sodium [Moles/Vol] 142 mmol/L Normal 136-145 [facility] Comment on above: Performed By: #### C H8, MG, HEPATIC #### [facility] [address] [place], [place], Urea nitrogen [Mass/Vol] 13 mg/dL Normal 7-25 [facility] Comment on above: Performed By: #### C H8, MG, HEPATIC #### [facility] [address] [place], [place], Basic metabolic 2000 panelon 01-25-2025 Anion gap [Moles/Vol] 12 mmol/L 10 - 20 [facility] Calcium [Mass/Vol] 8.3 mg/dL Low 8.6 - 10. 3 mg/dL [facility] Chloride [Moles/Vol] 108 mmol/L High 98 - 10 7 mmol/L [facility] CO2 [Moles/Vol] 26 mmol/L 21 - 31 mmol/L [facility] Creatinine [Mass/Vol] 0.61 mg/dL 0.60 - 1.20 mg/dL [facility] GFR/1.73 sq M.predicted CKD-EPI (S/P/Bld) [Vol rate/Area] 89 - PINF [facility] Comment on above: 2020 CKD EPI Equatio [...] Inclusion of Race in Diagnosing Kidney Disease. [place]i Journal of Kidney Diseases 2021;79(2):268-88.e1. 2. N Engl J Med 1 Vol. 385 Issue 19 Pages 5101-2727 Glucose [Mass/Vol] 98 mg/dL 74 - 109 mg/dL [facility] Potassium [Moles/Vol] 3.8 mmol/L 3.5 - 5.0 mmol/L [facility] Sodium [Moles/Vol] 142 mmol/L 136 - 145 mmol/L [facility] Urea nitrogen [Mass/Vol] 13 mg/dL 7 - 25 mg/dL [facility] Basophil percentageOrdered B y: Jennie Navarro on 01-25-2025 Basophils/100 WBC (Bld) 0.5 % 0-1 [facility] CBC W/Diff, Automatedon 01-07 Hemoglobin (Bld) [Mass/Vol] 6.0 g/dL Invalid Interpretation Code 12.0-15.0 [facility] Comment on above: Result Comment: CRIT ICAL VALUE CALLED TO TEDDY 01/25/25 0447 Kam Guillermo. RESULTS READ BACK BY SAME. Performed By: #### L 500.2500, L100.0500 #### [facility] [address] [place], [address] Absolute Lymph 1.53 X10 3/uL Normal 0.83-4.51 [facility] Comment on above: Performed By: #### L 500.2500, L100.0500 #### [facility] [address] [place], [address] Absolute Neut 5.2 X10 3/uL Normal 2.0-7.7 [facility] Comment on above: Performed By: #### L 500.2500, L100.0500 #### [facility] [address] [place], [address] Basophils/100 WBC (Bld) 0.5 % Normal 0-1 [facility] Comment on above: Performed By: #### L 500.2500, L100.0500 #### [facility] [address] [place], [address] Eosinophils/100 WBC (Bld) 1.0 % Normal 0-5 [facility] Comment on above: Performed By: #### L 500.2500, L100.0500 #### [facility] [address] [place], [address] Erythrocyte distribution width (RBC) [Ratio] 15.8 % High 11.6-14.6 [facility] Comment on above: Performed By: #### L 500.2500, L100.0500 #### [facility] [address] [place], [address] Hematocrit (Bld) [Volume fraction] 20.9 % Low 37-47 [facility] Comment on above: Performed By: #### L 500.2500, L100.0500 #### [facility] [address] [place], [address] IG% 0.300 Normal 0.0-0.9 [facility] Comment on above: Result Comment: IG% - Immature Granulocytes (promyelocytes, myelocytes and metamyelocytes) > 1% indicates that a LEFT SHIFT is Present. Performed By: #### L 500.2500, L100.0500 #### [facility] [address] [facility] [place], [address] Lymphocytes/100 WBC (Bld) 19.2 % Normal 19-41 [facility] Comment on above: Performed By: #### L 500.2500, L100.0500 #### [facility] [address] [place], [address] MCH (RBC) [Entitic mass] 20.9 pg Low 27.0-32.0 [facility] Comment on above: Performed By: #### L 500.2500, L100.0500 #### [facility] [address] [place], [address] MCHC (RBC) [Mass/Vol] 28.7 g/dL Low 32-36 [facility] Comment on above: Performed By: #### L 500.2500, L100.0500 #### [facility] [address] [place], [address] MCV (RBC) [Entitic vol] 72.8 fL Low 81-99 [facility] Comment on above: Performed By: #### L 500.2500, L100.0500 #### [facility] [address] [place], [address] Monocytes/100 WBC (Bld) 14.1 % High 0-10 [facility] Comment on above: Performed By: #### L 500.2500, L100.0500 #### [facility] [address] [place], [address] Neutrophils/100 WBC (Bld) 64.9 % Normal 47-70 [facility] Comment on above: Performed By: #### L 500.2500, L100.0500 #### [facility] [address] [place], [address] Nucleated RBC (Bld) [#/Vol] 0 10*3/uL Normal 0-5 [facility] Comment on above: Performed By: #### L 500.2500, L100.0500 #### [facility] [address] [place], [address] Platelet mean volume (Bld) [Entitic vol] 10.6 fL Normal 6.2-12.0 [facility] Comment on above: Performed By: #### L 500.2500, L100.0500 #### [facility] [address] [place], [address] Platelets (Bld) [#/Vol] 232 10*3/uL Normal 150-450 [facility] Comment on above: Performed By: #### L 500.2500, L100.0500 #### [facility] [address] [place], [address] RBC (Bld) [#/Vol] 2.87 10*6/uL Low 4.2-5.4 [facility] Comment on above: Performed By: #### L 500.2500, L100.0500 #### [facility] [address] [place], [address] RDW SD 41.3 fl Normal 35.1-43.9 [facility] Comment on above: Performed By: #### L 500.2500, L100.0500 #### [facility] [address] [place], [address] WBC (Bld) [#/Vol] 8.0 10*3/uL Normal 4.4-11.0 [facility] Comment on above: Performed By: #### L 500.2500, L100.0500 #### [facility] [address] [place], [address] CBC WITH DIFFERENTIALOrdered By: Terri Simon on [...] [facility] Platelet mean volume (Bld) [Entitic vol] 8 fL 7.5 - 11.2 fL [facility] Platelets (Bld) [#/Vol] 189 10*3/uL 150 - 400 K/uL [facility] RBC (Bld) [#/Vol] 3.86 10*6/uL Low [facility] WBC (Bld) [#/Vol] 7.8 10*3/uL 4.5 - 11.5 K/uL [facility] CBC WITH DIFFERENTIALon 01-07 Basophils (Bld) [#/Vol] 0.08 10*3/uL Normal 0.00-0.20 [facility] Comment on above: Performed By: #### Aruna Olivas, CH8 #### [facility] [address] [place] [address], Basophils/100 WBC (Bld) 1.1 % Normal <=1.9 [facility] Comment on above: Performed By: #### Aruna Olivas, CH8 #### [facility] [address] [place], [place], Eosinophils (Bld) [#/Vol] 0.06 10*3/uL Normal 0.00-0.70 [facility] Comment on above: Performed By: #### Aruna Olivas, CH8 #### [facility] [address] [place], [place], Eosinophils/100 WBC (Bld) 0.8 % Normal 0.1-4.0 [facility] Comment on above: Performed By: #### Aruna Olivas, CH8 #### [facility] [address] [place] [address], Erythrocyte distribution width (RBC) [Ratio] 19.7 % High 11.5-14.5 [facility] Comment on above: Performed By: #### Aruna Olivas, CH8 #### [facility] [address] [place] [address], Hematocrit (Bld) [Volume fraction] 28.2 % Low 36.0-46.0 [facility] Comment on above: Performed By: #### Aruna Olivas, CH8 #### [facility] [address] [place] [address], Hemoglobin (Bld) [Mass/Vol] 9.0 g/dL Low 12.0-15.0 [facility] Comment on above: Performed By: #### Aruna Olivas, CH8 #### [facility] [address] [place] [address], Lymphocytes (Bld) [#/Vol] 1.20 10*3/uL Normal 1.00-4.80 [facility] Comment on above: Performed By: #### Aruna Olivas, CH8 #### [facility] [address] [place] [address], Lymphocytes/100 WBC (Bld) 15.4 % Low 24.0-44.0 [facility] Comment on above: Performed By: #### Aruna Olivas, CH8 #### [facility] [address] [place] [address], MCH (RBC) [Entitic mass] 23.4 pg Low 26.0-34.0 [facility] Comment on above: Performed By: #### Aruna Olivas, CH8 #### [facility] [address] [place] [address], MCHC (RBC) [Mass/Vol] 32.1 g/dL Normal 32.0-35.9 [facility] Comment on above: Performed By: #### Aruna Olivas, CH8 #### [facility] [address] [place] [address], MCV (RBC) [Entitic vol] 73 fL Low 80-100 [facility] Comment on above: Performed By: ###Roger Olivas, CH8 #### [facility] [address] [place] [address], Monocytes (Bld) [#/Vol] 0.88 10*3/uL Normal 0.20-1.00 [facility] Comment on above: Performed By: ###Roger Olivas, CH8 #### [facility] [address] [place] [address], Monocytes/100 WBC (Bld) 11.4 % High 2.0-11.0 [facility] Comment on above: Performed By: ###Roger Olivas, CH8 #### [facility] [address] [place] [address], Neutrophils (Bld) [#/Vol] 5.53 10*3/uL Normal 1.50-8.00 [facility] Comment on above: Performed By: ###Roger Olivas, CH8 #### [facility] [address] [place] [address], Neutrophils/100 WBC (Bld) 71.3 % Normal 31.0-76.0 [facility] Comment on above: Performed By: ###Roger Olivas, CH8 #### [facility] [address] [place] [address], Platelet mean volume (Bld) [Entitic vol] 8.0 fL Normal 7.5-11.2 [facility] Comment on above: Performed By: ###Roger Olivas, CH8 #### [facility] [address] [place] [address], Platelets (Bld) [#/Vol] 189 10*3/uL Normal 150-400 [facility] Comment on above: Performed By: #### Aruna Olivas, CH8 #### [facility] [address] [place] [address], RBC (Bld) [#/Vol] 3.86 10*6/uL Low 4.00-5.20 [facility] Comment on above: Performed By: #### Aruna Olivas CH8 #### S PATHOLOGY LABORATORY [address] [place], [place], WBC (Bld) [#/Vol] 7.8 10*3/uL Normal 4.5-11.5 [facility] Comment on above: Performed By: #### Aruna Olivas CH8 #### S PATHOLOGY LABORATORY [address] [place], [place], CBC panel Auto (Bld)on 01-25 Erythrocyte distribution width (RBC) [Ratio] 19.8 % High 11.5 - 14.5 % [facility] Hematocrit (Bld) [Volume fraction] 29.7 % Low 36.0 - 46.0 % [facility] Hemoglobin (Bld) [Mass/Vol] 9.8 g/dL Low 12.0 - 15.0 g/dL [facility] Interpretation and review of laboratory results Abnormal [...] No Di ffon 01-25-2025 HCT Normal 37-47 [facility] Comment on above: Order Comment: 155 Result Comment: [facility] Performed By: #### L 500.2500, L100.0500 #### [facility] Laboratory [address] [place], [address] HGB Normal 12.0-15.0 [facility] Comment on above: Order Comment: 155 Result Comment: [facility] Performed By: #### L 500.2500, L100.0500 #### [facility] [address] [place], [address] MCH Normal 27.0-32.0 [facility] Comment on above: Order Comment: 155 Result Comment: [facility] Performed By: #### L 500.2500, L100.0500 #### [facility] [address] [place], [address] MCHC Normal 32-36 [facility] Comment on above: Order Comment: 155 Result Comment: [facility] Performed By: #### L 500.2500, L100.0500 #### [facility] [address] [place], [address] MCV Normal 81-99 [facility] Comment on above: Order Comment: 155 Result Comment: [facility] Performed By: #### L 500.2500, L100.0500 #### [facility] [address] [place], [address] PLT Normal 150-450 [facility] Comment on above: Order Comment: 155 Result Comment: [facility] Performed By: #### L 500.2500, L100.0500 #### [facility] [address] [place], [address] RBC Normal 4.2-5.4 [facility] Comment on above: Order Comment: 155 Result Comment: [facility] Performed By: #### L 500.2500, L100.0500 #### [facility] [address] [place], [address] RDW CV Normal 11.6-14.6 [facility] Comment on above: Order Comment: 155 Result Comment: [facility] Performed By: #### L 500.2500, L100.0500 #### [facility] [address] [place], [address] RDW SD Normal 35.1-43.9 [facility] Comment on above: Order Comment: 155 Result Comment: [facility] Performed By: #### L 500.2500, L100.0500 #### [facility] [address] [place], [address] WBC Normal 4.4-11.0 [facility] Comment on above: Order Comment: 155 Result Comment: [facility] Performed By: #### L 500.2500, L100.0500 #### [facility] [address] [place], [address] COMPLETE BLOOD COUNTon 01-25 Erythrocyte distribution width (RBC) [Ratio] 19.8 % High 11.5-14.5 [email or web address] Comment on above: Performed By: #### Aruna Olivas, CH8 #### S PATHOLOGY LABORATORY [address] [place] [address], Hematocrit (Bld) [Volume fraction] 29.7 % Low 36.0-46.0 [email or web address] Comment on above: Performed By: #### Aruna Olivas, CH8 #### S PATHOLOGY LABORATORY [address] [place], [place], Hemoglobin (Bld) [Mass/Vol] 9.8 g/dL Low 12.0-15.0 [email or web address] Comment on above: Performed By: #### Aruna Olivas, CH8 #### S PATHOLOGY LABORATORY [address] [place] [address], MCH (RBC) [Entitic mass] 23.8 pg Low 26.0-34.0 [email or web address] Comment on above: Performed By: #### Aruna Olivas, CH8 #### [facility] [address] [place], MCHC (RBC) [Mass/Vol] 33.0 g/dL Normal 32.0-35.9 [email or web address] Comment on above: Performed By: #### Aruna Olivas, CH8 #### [facility] [address] [place], [place], MCV (RBC) [Entitic vol] 72 fL Low 80-100 [facility] Comment on above: Performed By: #### M G, CH8 #### [facility] PATHOLOGY LABORATORY [address] [place], [place], Platelet mean volume (Bld) [Entitic vol] 8.5 fL Normal 7.5-11.2 [facility] Comment on above: Performed By: #### Aruna Olivas, CH8 #### [facility] PATHOLOGY LABORATORY [address] [place], [place], Platelets (Bld) [#/Vol] 221 10*3/uL Normal 150-400 [facility] Comment on above: Performed By: #### Aruna Olivas, CH8 #### [facility] PATHOLOGY LABORATORY [address] [place], RBC (Bld) [#/Vol] 4.11 10*6/uL Normal 4.00-5.20 [facility] Comment on above: Performed By: #### Aruna Olivas, CH8 #### [facility] PATHOLOGY LABORATORY [address] [place], [place], WBC (Bld) [#/Vol] 10.2 10*3/uL Normal 4.5-11.5 [facility] Comment on above: Performed By: #### Aruna Olivas, CH8 #### [facility] PATHOLOGY LABORATORY [address] [place], [place], CONFIRMATION ABO/RHon 2024 Specimen Expiration Date [id number] [facility] CTA ABDOMEN + PELVIS W/on CTA [...] findings as above. MACRO: None Normal [facility] CTA Abdominal vessels and Pe lvis vessels WO and W contrast IVOrdered By: Aliza Saleh on 01-25-2025 CT DLP 985.85 (mGy.cm) [email or web address] Work Phone: CT Series Topogram,Topogram,AB D PEL WO,PreMonitoring ,Monitoring,CTA ABD PEL ,70s [facility]AY [facility] Work Phone: CTDI VOL 0.01 (mGy),0.01 (mGy),6.46 (mGy),0.79 (mGy),2.37 (mGy),6.32 (mGy),6.13 (mGy) [email or web address] Work Phone: PHANTOM TYPE IEC Body Dosimetry Phantom,IEC Body Dosimetry Phantom,IEC Body Dosimetry Phantom,IEC Body Dosimetry Phantom,IEC Body Dosimetry Phantom,IEC Body Dosimetry Phantom,IEC Body Dosimetry Phantom [email or web address] Work Phone: [email or web address] Work Phone: CTA Abdominal vessels and Pe [...] Chronic ancillary findings as above. MACRO: None [facility] Study observation (narrative) [facility]son 01-25-2025 Parts Back Counter Man Authentication Interface Message Text Interventional Radiology Consult [...] past surgical history on file. Normal [facility] EKG 12 LEAD - PERFORMon 01-07 Diagnosis Normal sinus rhythm Left axis deviation Low voltage QRS, consider pulmonary disease, pericardial effusion, or normal variant Incomplete right bundle branch block Inferior infarct , age undetermined Abnormal ECG Confirmed by Layne Delgado ([id number]) on 01/25/2025 5:27:19 PM [facility] P wave [facility] by EKG 82 BPM [facility] P wave axis 16 degrees [facility] P-R Interval 174 ms [facility] Q-T interval 436 ms [facility] Q-T interval corrected 509 ms [facility] QRS axis -40 degrees [facility] QRS duration 102 ms [facility] T wave axis -10 degrees [facility] Eosinophil percentageOrdered By: Jennie Navarro on 01-25-2025 Eosinophils/100 WBC (Bld) 1.0 % 0-5 [facility] Erythrocyte distribution wid th ratioOrdered By: Jennie Navarro on 01-25-2025 Erythrocyte distribution width (RBC) [Ratio] 15.8 % High 11.6-14.6 [facility] Erythrocyte distribution wid th standard deviationOrdered By: Jennie Navarro on 01-25-2025 Erythrocyte distribution width (RBC) [Ratio] 41.3 fl 35.1-43.9 [facility] H AND Luis Felipe 01-25-2025 Parts Back Counter Man Authentication Interface Message Text .[facility] Step Down Unit - H AND P Patient: Ely Hurtado : 1940 Sex: female Room: [place] [address] Admission: 01/25/2025 Today: 01/25/2025 (Length of stay: 1 day(s)) HISTORY OF PRESENT ILLNESS: CHIEF COMPLAINT: No chief complaint on file. 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 Patient who currently resides at [facility] ([facility]) where she was found to have significant bright red blood in her stool following multiple episodes of diarrhea on the morning of 01/24. They were transferred to the [facility] ED later that day for further evaluation. [...] Intake/Output Summary (Last 24 hours) at 01/25/2025 6215 Last data filed at 01/25/2025 1600 Gross [...] and anemia. PROBLEM LIST: Neuro AxOx2 at [facility] per OSH notes. Cardiology -No Acute [...] 140-180 (more content not included)... Normal [email or web address] HEPATIC FUNCTION PANELon Albumin [Mass/Vol] 3.4 [...] Albumin [Mass/Vol] 3.4 g/dL Low 3.5-5.7 [facility] Comment on above: Performed By: #### MG Mica, HEPATIC #### [facility] [address] [place], [place], ALK 52 IU/L Normal 34-104 [facility] Comment on above: Performed By: #### MG Mica, HEPATIC #### [facility] [address] [place], [place], ALT [Catalytic activity/Vol] 7 U/L Normal 7-52 [email or web address] Comment on above: Performed By: #### C H8, MG, HEPATIC #### [facility] [address] [place], [place], AST [Catalytic activity/Vol] 15 U/L Normal 13-39 [facility] Comment on above: Performed By: #### C H8, MG, HEPATIC #### [facility] [address] [place], [place], Bilirubin [Mass/Vol] 2.5 mg/dL High 0.3-1.0 [facility] Comment on above: Performed By: #### C H8, MG, HEPATIC #### [facility] [address] [place], [place], Bilirubin.direct [Mass/Vol] 0.42 mg/dL High 0.03-0.18 [facility] Comment on above: Performed By: #### C H8, MG, HEPATIC #### S PATHOLOGY LABORATORY [address] [place], Protein [Mass/Vol] 5.1 g/dL Low 6.0-8.3 [facility] Comment on above: Performed By: #### C H8, MG, HEPATIC #### S PATHOLOGY LABORATORY [address] [place], [place], Hematocrit Auto (Bld) [Volum e fraction]Ordered By: Jennie Navarro on 01-25-2025 Hematocrit (Bld) [Volume fraction] 20.9 % Low 37-47 [facility] Hemoglobin measurementOrdere d By: Jennie Navarro on 01-25-2025 Hemoglobin (Bld) [Mass/Vol] 6.0 g/dL Low 12.0-15.0 [facility] Comment on above: CRITICAL VALUE PRINCE D TO [id number]/[id number] 0447 Kam Guillermo.RESULTS READ BACK BY SAME. Immature granulocytes/100 WB C Auto (Bld)Ordered By: Jennie Navarro on 01-25-2025 Immature granulocytes/100 WBC (Bld) 0.300 % 0.0-0.9 [facility] Comment on above: IG% - Immature Granu locytes (promyelocytes, myelocytes and metamyelocytes) > 1% indicates that a LEFT SHIFT is Present. LACTIC ACIDOrdered By: Tammy Riggs on 01-25-2025 Interpretation and review of laboratory results Normal [facility] Lactate [Moles/Vol] 1 mmol/L 0.5 - 1. 6 mmol/L [facility] This test was developed, and its performance characteristics determined by the Department of Pathology of [facility]. It has not been cleared or approved by the FDA. This test is used for clinical purposes only. [facility] LACTIC ACIDon 01-25-2025 CR LACT 1.0 mmol/L Normal 0.5-1.6 [facility] Comment on above: Order Comment: This test was developed, and its performance characteristics determined by the Department of Pathology of [facility]. It has not been cleared or approved by the FDA. This test is used for clinical purposes only. Performed By: #### L ACT #### S PATHOLOGY LABORATORY [address] [place] [address], [phone] Laboratory - Blood bankon ABO and Rh group Nom (Bld) Blood group O Rh(D) positive [facility] Lactic Acidon 01-25-2025 Lactate [Moles/Vol] 1.3 mmol/L Normal 0.0-2.0 [facility] Comment on above: Performed By: #### L 500.2500, L100.0500 #### [facility] Laboratory [address] [place], [place], [id number] Lactate [Moles/Vol] 2.0 mmol/L Normal 0.0-2.0 [facility] Comment on above: Order Comment: 155 Result Comment: Crit ical Result(s) Called at: 0459 by:??JESSICA HAVEN TO MAKENZIE SPARR Results read back by same. Performed By: #### L 500.2500, L100.0500 #### [facility] [address] [place], [address] Lactic acid measurementOrder ed By: Jennie Navarro on 01-25-2025 Lactate [Moles/Vol] 2.0 mmol/L 0.0-2.0 [facility] Comment on above: Critical Result(s) C alled at: 0459 by: JESSICA SELLERS Results read back by same. MAGNESIUMon 01-25-2025 Interpretation and review of laboratory results Normal [facility] Magnesium [Mass/Vol] 2 mg/dL 1.9 - 2 .7 mg/dL [facility] Magnesium [Mass/Vol] 2.0 mg/dL Normal 1.9-2.7 [facility] Comment on above: Performed By: #### C H8, MG, HEPATIC ####S PATHOLOGY [id number] [place], [place], MANUAL DIFF AND MORPHon 01-07 Cells Counted Total (Bld) [#] [facility] Microcytes Ql (Bld) Slight [facility] Ovalocytes LM Ql (Bld) Few [facility] RBC.hypochromic/100 RBC Auto (Bld) Moderate [facility] CELLS COUNTED TOTAL # IN BLOOD Normal [facility] Comment on above: Performed By: #### Aruna Olivas, CH8 #### [facility] PATHOLOGY LABORATORY [address] [place] [address], HYPOCHROMASIA Moderate Normal [facility] Comment on above: Performed By: #### M Deisy, CH8 #### S PATHOLOGY LABORATORY [address] [place], [place], MICROCYTOSIS Slight Normal [facility] Comment on above: Performed By: #### M Deisy, CH8 #### S PATHOLOGY LABORATORY [address] [place] [address], OVALOCYTES Few Normal [facility] Comment on above: Performed By: #### Aruna Olivas, CH8 #### S PATHOLOGY LABORATORY [address] [place] [address], MCV (mean corpuscular volume ) determinationOrdered By: Jennie Navarro on 01-25-2025 MCV (RBC) [Entitic vol] 72.8 fL Low 81-99 [facility] Mean corpuscular hemoglobin (MCH) determinationOrdered By: Jennie Navarro on 01-25-2025 MCH (RBC) [Entitic mass] 20.9 pg Low 27.0-32.0 [facility] Mean corpuscular hemoglobin concentration (MCHC) determinationOrdered By: Jennie Navarro on 01-25-2025 MCHC (RBC) [Mass/Vol] 28.7 g/dL Low 32-36 [facility] Mean platelet volume determi nationOrdered By: Jennie Navarro on 01-25-2025 Platelet mean volume (Bld) [Entitic vol] 10.6 fL 6.2-12.0 [facility] Monocyte percentageOrdered B y: Jennie Navarro on 01-25-2025 Monocytes/100 WBC (Bld) 14.1 % High 0-10 [facility] Neutrophil percentageOrdered By: Jennie Navarro on 01-25-2025 Neutrophils/100 WBC (Bld) 64.9 % 47-70 [facility] No Panel InformationOrdered By: Terri Simon on 01-25-2025 [facility] No Panel Informationon 01-25 Interpretation and review of laboratory results Abnormal [facility] Nucleated red blood cell per centageOrdered By: Jennie Navarro on 01-25-2025 Nucleated RBC/100 WBC (Bld) [Ratio] 0 % 0-5 [facility] PROTHROMBIN TIME AND INRon 0 01-25-2025 INR Coag (PPP) [Relative time] 1.22 {INR} High 0.90 - 1.10 [facility] Interpretation and review of laboratory results Abnormal [facility] PT Coag (PPP) [Time] 13.7 s High [facility] INR Coag (PPP) [Relative time] 1.22 {INR} High 0.90-1.10 [facility] Comment on above: Performed By: #### P T #### S PATHOLOGY LABORATORY [address] [place] [address], PT Coag (PPP) [Time] 13.7 s High 9.7-12.9 [facility] Comment on above: Performed By: #### P T #### S PATHOLOGY LABORATORY [address] [place] [address], Platelet countOrdered By: Nicola Navarro on 01-25-2025 Platelets (Bld) [#/Vol] 232 10*3/uL 150-450 [facility] RBC Auto (Bld) [#/Vol]Ordere d By: Jennie Navarro on 01-25-2025 RBC (Bld) [#/Vol] 2.87 10*6/uL Low 4.2-5.4 [facility] TYPE AND SCREENon 01-25-2025 ABO and Rh group Nom (Bld) Blood group O Rh(D) positive [facility] ABO and Rh group Nom (Bld) No Previous Results [facility] Blood group antibody screen Ql Negative [facility] Specimen Expiration Date [id number] [facility] Telephone Encounteron 2024 Parts Back Counter Man Authentication Interface Message Text I was called by [facility] regarding a transfer from [place]. That facility is requesting transfer because Services [...] Keyon Fallon DO Division of Hospital Medicine, [facility] Pager#: [phone] Normal [facility] White blood cell (WBC) count Ordered By: Jennie Navarro on 01-25-2025 WBC (Bld) [#/Vol] 8.0 10*3/uL 4.4-11.0 [facility] 12 Lead EKGon 01-24-2025 12 Lead EKG [facility] [address] [place] [address] 12 Lead EKG 01/24/25 2219 MR#: [id number] Acct: [id number] Name: ELY HURTADO Rep #: [id number] : 1940 84 From: Pascual Bonilla MD [...] >= 480 msec Abnormal ECG Confirmed by PASCUAL BONILLA MD ([id number]), newspaper editor managing JOSE PEARSON ([id number]) on 01/26/2025 9:35:16 AM Referred By: Confirmed By: PASCUAL BONILLA MD 01/26/25 0935 Date Pascual Bonilla MD CC: Dr. Power Borges DO; Dianna Guido MD Signed Normal [facility] Activated partial thrombopla stin time (aPTT) in platelet poor plasma by coagulation aOrdered By: Power Borges on 01-24-2025 aPTT Coag (PPP) [Time] 30.3 s 24.1-36.2 [facility] Anion gap in Serum or Plasma Ordered By: Power Borges on 01-24-2025 Anion gap [Moles/Vol] 12 mmol/L 5-15 [facility] BRCon 01-24-2025 RC Normal [facility] Comment on above: Result Comment: [id number] OP RC TRANSFUSED 01/25/25 0738 [id number] OP RC TRANSFUSED 01/25/25 0535 Performed By: #### L 500.2500, L100.0500 #### [facility] Laboratory [address] [place], [address] BUN/creatinine ratioOrdered By: Power Borges on 01-24-2025 Urea nitrogen/Creatinine [Mass ratio] 18.4 mg/mg - [facility] Basic Metabolic Profile (BMP )on 01-24-2025 BUN/CRE 18.4 RATIO Normal 03-28 [facility] Comment on above: Performed By: #### L 100.0500, L500.2500 #### [facility] [address] [place], [address] Calcium [Mass/Vol] 9.0 mg/dL Normal 7.6-11.0 [facility] Comment on above: Performed By: #### L 100.0500, L500.2500 #### [facility] [address] [place], [address] Chloride [Moles/Vol] 103 mmol/L Normal 98-[address] [facility] Comment on above: Performed By: #### L 100.0500, L500.2500 #### [facility] [address] [place], [address] CO2 [Moles/Vol] 24.8 mmol/L Normal 21.0-32.0 [facility] Comment on above: Performed By: #### L 100.0500, L500.2500 #### [facility] [address] [place], [address] Creatinine [Mass/Vol] 0.84 mg/dL Normal 0.70-1.20 [facility] Comment on above: Performed By: #### L 100.0500, L500.2500 #### [facility] [address] [place], [address] ECRCL 48.18 ml/min Low 50-250 [facility] Comment on above: Performed By: #### L 100.0500, L500.2500 #### [facility] [address] [place], [address] GAP 12 Normal 5-15 [facility] Comment on above: Performed By: #### L 100.0500, L500.2500 #### [facility] [address] [place], [address] GFR/1.73 sq M.predicted among non-blacks MDRD (S/P/Bld) [Vol rate/Area] 69 mL/min/{1.73_m2} Normal >60 [facility] Comment on above: Result Comment: mL/m in/1.73m2 CKD-EPI Creatinine Equation (2020) Performed By: #### L 100.0500, L500.2500 #### [facility] [address] [place], [address] Glucose [Mass/Vol] 116 mg/dL High 70-99 [facility] Comment on above: Performed By: #### L 100.0500, L500.2500 #### [facility] [address] [place], [address] Potassium [Moles/Vol] 4.3 mmol/L Normal 3.3-5.1 [facility] Comment on above: Performed By: #### L 100.0500, L500.2500 #### [facility] [address] [place], [address] Sodium [Moles/Vol] 140 mmol/L Normal 133-145 [facility] Comment on above: Performed By: #### L 100.0500, L500.2500 #### [facility] [address] [place], [address] Urea nitrogen [Mass/Vol] 15 mg/dL Normal 4-19 [facility] Comment on above: Performed By: #### L 100.0500, L500.2500 #### [facility] [address] [place], [address] CBC W/Diff, Automatedon 01-07 Absolute Lymph 2.22 X10 3/uL Normal 0.83-4.51 [facility] Comment on above: Performed By: #### L 300.4310, L300.3900, M100.7900, BTS, L500.2500, L100.0100 #### [facility] [address] [place], [address] Absolute Neut 6.1 X10 3/uL Normal 2.0-7.7 [facility] Comment on above: Performed By: #### L 300.4310, L300.3900, M100.7900, BTS, L500.2500, L100.0100 #### [facility] [address] [place], [address] Basophils/100 WBC (Bld) 0.4 % Normal 0-1 [facility] Comment on above: Performed By: #### L 300.4310, L300.3900, M100.7900, BTS, L500.2500, L100.0100 #### [facility] [address] [place], [address] Eosinophils/100 WBC (Bld) 1.1 % Normal 0-5 [facility] Comment on above: Performed By: #### L 300.4310, L300.3900, M100.7900, BTS, L500.2500, L100.0100 #### [facility] [address] [place], [address] Erythrocyte distribution width (RBC) [Ratio] 15.8 % High 11.6-14.6 [facility] Comment on above: Performed By: #### L 300.4310, L300.3900, M100.7900, BTS, L500.2500, L100.0100 #### [facility] [address] [place], [address] Hematocrit (Bld) [Volume fraction] 28.7 % Low 37-47 [facility] Comment on above: Performed By: #### L 300.4310, L300.3900, M100.7900, BTS, L500.2500, L100.0100 #### [facility] [address] [place], [address] Hemoglobin (Bld) [Mass/Vol] 8.2 g/dL Low 12.0-15.0 [facility] Comment on above: Performed By: #### L 300.4310, L300.3900, M100.7900, BTS, L500.2500, L100.0100 #### [facility] [address] [place], [address] IG% 0.300 Normal 0.0-0.9 [facility] Comment on above: Result Comment: IG% - Immature Granulocytes (promyelocytes, myelocytes and metamyelocytes) > 1% indicates that a LEFT SHIFT is Present. Performed By: #### L 300.4310, L300.3900, M100.7900, BTS, L500.2500, L100.0100 #### [facility] [address] [place], [address] Lymphocytes/100 WBC (Bld) 22.8 % Normal 19-41 [facility] Comment on above: Performed By: #### L 300.4310, L300.3900, M100.7900, BTS, L500.2500, L100.0100 #### [facility] [address] [place], [address] MCH (RBC) [Entitic mass] 20.7 pg Low 27.0-32.0 [facility] Comment on above: Performed By: #### L 300.4310, L300.3900, M100.7900, BTS, L500.2500, L100.0100 #### [facility] [address] [place], [address] MCHC (RBC) [Mass/Vol] 28.6 g/dL Low 32-36 [facility] Comment on above: Performed By: #### L 300.4310, L300.3900, M100.7900, BTS, L500.2500, L100.0100 #### [facility] [address] [place], [address] MCV (RBC) [Entitic vol] 72.5 fL Low 81-99 [facility] Comment on above: Performed By: #### L 300.4310, L300.3900, M100.7900, BTS, L500.2500, L100.0100 #### [facility] [address] [place], [address] Monocytes/100 WBC (Bld) 12.8 % High 0-10 [facility] Comment on above: Performed By: #### L 300.4310, L300.3900, M100.7900, BTS, L500.2500, L100.0100 #### [facility] [address] [place], [address] Neutrophils/100 WBC (Bld) 62.6 % Normal 47-70 [facility] Comment on above: Performed By: #### L 300.4310, L300.3900, M100.7900, BTS, L500.2500, L100.0100 #### [facility] [address] [place], [address] Nucleated RBC (Bld) [#/Vol] 0 10*3/uL Normal 0-5 [facility] Comment on above: Performed By: #### L 300.4310, L300.3900, M100.7900, BTS, L500.2500, L100.0100 #### [facility] [address] [place], [address] Platelet mean volume (Bld) [Entitic vol] 10.0 fL Normal 6.2-12.0 [facility] Comment on above: Performed By: #### L 300.4310, L300.3900, M100.7900, BTS, L500.2500, L100.0100 #### [facility] [address] [place], [address] Platelets (Bld) [#/Vol] 335 10*3/uL Normal 150-450 [facility] Comment on above: Performed By: #### L 300.4310, L300.3900, M100.7900, BTS, L500.2500, L100.0100 #### [facility] [address] [place], [address] RBC (Bld) [#/Vol] 3.96 10*6/uL Low 4.2-5.4 [facility] Comment on above: Performed By: #### L 300.4310, L300.3900, M100.7900, BTS, L500.2500, L100.0100 #### [facility] [address] [place], [address] RDW SD 41.1 fl Normal 35.1-43.9 [facility] Comment on above: Performed By: #### L 300.4310, L300.3900, M100.7900, BTS, L500.2500, L100.0100 #### [facility] [address] [place], [address] WBC (Bld) [#/Vol] 9.8 10*3/uL Normal 4.4-11.0 [facility] Comment on above: Performed By: #### L 300.4310, L300.3900, M100.7900, BTS, L500.2500, L100.0100 #### [facility] [address] [place], [address] CTA Abd/Pelvis W/WO Contrast on 01-24-2025 CTA Abd/Pelvis W/WO Contrast [facility] [address] [place] [address] CTA Abd/Pelvis W/WO Contrast MR#: [id number] Acct: [id number] Name: ELY HURTADO Rep #: [id number] : 1940 F 84 From: Tino Garza MD PCP: Dianna Guido MD Status: REG ER Study: CTA Abd/Pelvis W/WO Contrast Date of Exam: Exam# [id number] Ordering Dr: Power Borges DO PROCEDURE: CTA [...] provider Power Borges 01/24/2025 at 10:50 p.m. CLINICAL TEAM MANAGER. Reading Location: [facility] CC: Dr. Power Borges DO; Dianna Guido MD Dot Etcher Apprentice: Signed Normal [facility] Carbon dioxide, total [Moles /volume] in Central venous bloodOrdered By: Power Borges on 01-24-2025 CO2 [Moles/Vol] 24.8 mmol/L 21.0-32.0 [facility] Chloride assayOrdered By: Raffaele Borges on 01-24-2025 Chloride [Moles/Vol] 103 mmol/L 98-[address] [facility] Emergency Department Summary on 01-24-2025 Emergency Department Summary [facility] Medical Records Department [address] [place] [address] Emergency Department Summary 01/24/25 MR#: [id number] Acct: [id number] Name: ELY HURTADO Rep #: [id number] : 1940 84 From: Power Weeks PCP: Dianna Guido MD Status:DEP ER Location: ED HPI HPI - GI History of Present Illness Chief Complaint: GI Bleed Informant: patient and EMS Narrative Narrative: Discontinue hydroxyzine sent in from [facility] for increasing rectal bleeding reported blood pressure [...] 82 Respirato (more content not included)... Normal [facility] Glomerular filtration rate ( GFR) estimation/1.73 sq m using serum, plasma, or whole bOrdered By: Power Borges on 01-24-2025 GFR/1.73 sq M.predicted among non-blacks MDRD (S/P/Bld) [Vol rate/Area] 69 mL/min/{1.73_m2} >60 [facility] Comment on above: mL/min/1.73m2 CKD-EP I Creatinine Equation (2020) International normalized rat io (INR) calculationOrdered By: Power Borges on 01-24-2025 INR Coag (Bld) [Relative time] 1.5 {INR} [facility] Partial Thromboplast Timeon 01-24-2025 aPTT Coag (Bld) [Time] 30.3 s Normal 24.1-36.2 [facility] Comment on above: Performed By: #### L 100.0500, L500.2500 #### [facility] [address] [facility] [place], [place], [id number] Potassium measurement (mass/ volume)Ordered By: Power Borges on 01-24-2025 Potassium (Unsp spec) [Mass/Vol] 4.3 mmol/L 3.3-5.1 [facility] Prothrombin Time w/INRon INR Coag (PPP) [Relative time] 1.5 {INR} Normal [facility] Comment on above: Performed By: #### L 100.0500, L500.2500 #### [facility] [address] [facility] [address] [place], [place], [id number] PT Coag (PPP) [Time] 17.9 s High 11.7-14.[address] [facility] Comment on above: Performed By: #### L 100.0500, L500.2500 #### [facility] [address] [place], [place], [id number] Prothrombin timeOrdered By: Power Borges on 01-24-2025 PT Coag (PPP) [Time] 17.9 s High 11.7-14.[address] [facility] Serum creatinine measurement (mass/volume)Ordered By: Power Borges on 01-24-2025 Creatinine [Mass/Vol] 0.84 mg/dL 0.70-1.20 [facility] Serum glucose measurement (m ass/volume)Ordered By: Power Borges on 01-24-2025 Glucose [Mass/Vol] 116 mg/dL High 70-99 [facility] Serum or plasma calcium slava urement (mass/volume)Ordered By: Power Borges on 01-24-2025 Calcium [Mass/Vol] 9.0 mg/dL 7.6-11.0 [facility] Serum or plasma urea nitroge n measurement (mass/volume)Ordered By: Power Borges on 01-24-2025 Urea nitrogen [Mass/Vol] 15 mg/dL 4-19 [facility] Sodium levelOrdered By: Power Borges on 01-24-2025 Sodium [Moles/Vol] 140 mmol/L 133-145 [facility] Stool Occult Blood iFOBon STOB Positive Normal [facility] Comment on above: Performed By: #### L 300.4310, L300.3900, M100.7900, BTS, L500.2500, L100.0100 #### [facility] [address] [place], [place], [id number] Stool gastrointestinal hemog lobin detection by immunologic methodOrdered By: Power Borges on 01-24-2025 Lower GI hemoglobin IA Ql (Stl) Positive Abnormal [facility] Type AND Screenon 01-24-2025 Ab SCREEN GEL Negative Normal [facility] Comment on above: Order Comment: 155 Performed By: #### L 100.0500, L500.2500 #### [facility] [address] [place], [address] Bilirubin directOrdered By: Dianna Guido on 11-08-2024 Bilirubin.direct [Mass/Vol] 0.50 mg/dL High 0.00-0.30 [facility] Bilirubin, totalOrdered By: Dianna Guido on 11-08-2024 Bilirubin [Mass/Vol] 1.21 mg/dL 0.00-1.[address] [facility] Laboratory - Chemistry and C hemistry - challengeOrdered By: Dianna Guido on 11-08-2024 AST [Catalytic activity/Vol] 22 U/L <32 [facility] Liver Profileon 11-08-2024 Albumin [Mass/Vol] 3.3 g/dL Low 3.4-4.8 [facility] Comment on above: Order Comment: 155 Performed By: #### L 500.3400 #### [facility] [address] [place], [address] ALK PHOS 95 U/L Normal 35-104 [facility] Comment on above: Order Comment: 155 Performed By: #### L 500.3400 #### [facility] [address] [place], [address] ALT [Catalytic activity/Vol] 8 U/L Normal <=34 [facility] Comment on above: Order Comment: 155 Performed By: #### L 500.3400 #### [facility] [address] [place], [address] AST [Catalytic activity/Vol] 22 U/L Normal <=31 [facility] Comment on above: Order Comment: 155 Performed By: #### L 500.3400 #### [facility] [address] [place], [address] Bilirubin [Mass/Vol] 1.21 mg/dL Normal 0.00-1.[address] [facility] Comment on above: Order Comment: 155 Performed By: #### L 500.3400 #### [facility] [address] [place], [place], [id number] Bilirubin.direct [Mass/Vol] 0.50 mg/dL High 0.00-0.30 [facility] Comment on above: Order Comment: 155 Performed By: #### L 500.3400 #### [facility] [address] [place], [place], [id number] Globulin (S) [Mass/Vol] 2.2 g/dL Normal 2.2-4.2 [facility] Comment on above: Order Comment: 155 Performed By: #### L 500.3400 #### [facility] [address] [place], [address] T PROT 5.5 g/dL Low 5.9-8.4 [facility] Comment on above: Order Comment: 155 Performed By: #### L 500.3400 #### [facility] [address] [place], [place], [address] Serum globulin measurementOr dered By: Dianna Guido on 11-08-2024 Globulin (S) [Mass/Vol] 2.2 g/dL 2.2-4.2 [facility] Serum or plasma alanine rasheed otransferase (ALT) measurementOrdered By: Dianna Guido on 11-08-2024 ALT [Catalytic activity/Vol] 8 U/L <35 [facility] Serum or plasma albumin slava urement (mass/volume)Ordered By: Dianna Guido on 11-08-2024 Albumin [Mass/Vol] 3.3 g/dL Low 3.4-4.8 [facility] Serum or plasma alkaline catalina sphatase measurementOrdered By: Dianna Guido on 11-08-2024 ALP [Catalytic activity/Vol] 95 U/L 35-104 [facility] Total proteinOrdered By: Zita Guido on 11-08-2024 Protein [Mass/Vol] 5.5 g/dL Low 5.9-8.4 [facility] Anion gap in Serum or Plasma Ordered By: Dianna Guido on 10-04-2024 Anion gap [Moles/Vol] 10 mmol/L 5-15 [facility] BUN/creatinine ratioOrdered By: Dianna Guido on 10-04-2024 Urea nitrogen/Creatinine [Mass ratio] 14.3 mg/mg 10-20 [facility] Bilirubin, totalOrdered By: Dianna Guido on 10-04-2024 Bilirubin [Mass/Vol] 1.57 mg/dL High 0.00-1.[address] [facility] CBC-Complete Blood Cnt No Di ffon 10-04-2024 Erythrocyte distribution width (RBC) [Ratio] 14.5 % Normal 11.6-14.6 [facility] Comment on above: Order Comment: 155 Performed By: #### L 100.0500, L500.2500 #### [facility] [address] [place], [address] Hematocrit (Bld) [Volume fraction] 37.0 % Normal 37-47 [facility] Comment on above: Order Comment: 155 Performed By: #### L 100.0500, L500.2500 #### [facility] [address] [place], [address] Hemoglobin (Bld) [Mass/Vol] 11.2 g/dL Low 12.0-15.0 [facility] Comment on above: Order Comment: 155 Performed By: #### L 100.0500, L500.2500 #### [facility] [address] [place], [address] MCH (RBC) [Entitic mass] 24.6 pg Low 27.0-32.0 [facility] Comment on above: Order Comment: 155 Performed By: #### L 100.0500, L500.2500 #### [facility] [address] [place], [address] MCHC (RBC) [Mass/Vol] 30.3 g/dL Low 32-36 [facility] Comment on above: Order Comment: 155 Performed By: #### L 100.0500, L500.2500 #### [facility] [address] [place], [address] MCV (RBC) [Entitic vol] 81.1 fL Normal 81-99 [facility] Comment on above: Order Comment: 155 Performed By: #### L 100.0500, L500.2500 #### [facility] [address] [place], [address] Platelet mean volume (Bld) [Entitic vol] 10.8 fL Normal 6.2-12.0 [facility] Comment on above: Order Comment: 155 Performed By: #### L 100.0500, L500.2500 #### [facility] [address] [place], [address] Platelets (Bld) [#/Vol] 333 10*3/uL Normal 150-450 [facility] Comment on above: Order Comment: 155 Performed By: #### L 100.0500, L500.2500 #### [facility] [address] [place], [address] RBC (Bld) [#/Vol] 4.56 10*6/uL Normal 4.2-5.4 [facility] Comment on above: Order Comment: 155 Performed By: #### L 100.0500, L500.2500 #### [facility] [address] [place], [address] RDW SD 42.3 fl Normal 35.1-43.9 [facility] Comment on above: Order Comment: 155 Performed By: #### L 100.0500, L500.2500 #### [facility] [address] [place], [address] WBC (Bld) [#/Vol] 6.5 10*3/uL Normal 4.4-11.0 [facility] Comment on above: Order Comment: 155 Performed By: #### L 100.0500, L500.2500 #### [facility] [address] [place], [address] Calculated very low density lipoprotein (VLDL) cholesterol measurementOrdered By: Dianna Guido on 10-04-2024 Calculated very low density lipoprotein (VLDL) cholesterol measurement 16 mg/dL 5-40 [facility] Carbon dioxide, total [Moles /volume] in Central venous bloodOrdered By: Dianna Guido on 10-04-2024 CO2 [Moles/Vol] 28.5 mmol/L 21.0-32.0 [facility] Chloride assayOrdered By: Gonsalo Guido on 10-04-2024 Chloride [Moles/Vol] 105 mmol/L 98-[address] [facility] Comprehensive Metabolic Prof ilon 10-04-2024 Chloride [Moles/Vol] 105 mmol/L Normal 98-[address] [facility] Comment on above: Order Comment: 155 Performed By: #### L 100.0500, L500.2500 #### [facility] [address] [place], [address] CO2 [Moles/Vol] 28.5 mmol/L Normal 21.0-32.0 [facility] Comment on above: Order Comment: 155 Performed By: #### L 100.0500, L500.2500 #### [facility] [address] [place], [address] GAP 10 Normal 5-15 [facility] Comment on above: Order Comment: 155 Performed By: #### L 100.0500, L500.2500 #### [facility] [address] [place], [address] Potassium [Moles/Vol] 3.8 mmol/L Normal 3.3-5.1 [facility] Comment on above: Order Comment: 155 Performed By: #### L 100.0500, L500.2500 #### [facility] [address] [place], [address] Sodium [Moles/Vol] 143 mmol/L Normal 133-145 [facility] Comment on above: Order Comment: 155 Performed By: #### L 100.0500, L500.2500 #### [facility] [address] [place], [address] Albumin [Mass/Vol] 3.9 g/dL Normal 3.4-4.8 [facility] Comment on above: Order Comment: 155 Performed By: #### L 100.0500, L500.2500 #### [facility] [address] [place], [address] Albumin/Globulin [Mass ratio] 1.4 {ratio} Normal 0.9-2.4 [facility] Comment on above: Order Comment: 155 Performed By: #### L 100.0500, L500.2500 #### [facility] [address] [place], [address] ALK PHOS 112 U/L High 35-104 [facility] Comment on above: Order Comment: 155 Performed By: #### L 100.0500, L500.2500 #### [facility] [address] [place], [address] ALT [Catalytic activity/Vol] 9 U/L Normal <=34 [facility] Comment on above: Order Comment: 155 Performed By: #### L 100.0500, L500.2500 #### [facility] [address] [place], [address] AST [Catalytic activity/Vol] 26 U/L Normal <=31 [facility] Comment on above: Order Comment: 155 Performed By: #### L 100.0500, L500.2500 #### [facility] [address] [place], [address] Bilirubin [Mass/Vol] 1.57 mg/dL High 0.00-1.[address] [facility] Comment on above: Order Comment: 155 Performed By: #### L 100.0500, L500.2500 #### [facility] [address] [place], [address] BUN/CRE 14.3 RATIO Normal 10-20 [facility] Comment on above: Order Comment: 155 Performed By: #### L 100.0500, L500.2500 #### [facility] [address] [place], [address] Calcium [Mass/Vol] 9.0 mg/dL Normal 7.6-11.0 [facility] Comment on above: Order Comment: 155 Performed By: #### L 100.0500, L500.2500 #### [facility] [address] [place], [address] Creatinine [Mass/Vol] 0.75 mg/dL Normal 0.70-1.20 [facility] Comment on above: Order Comment: 155 Performed By: #### L 100.0500, L500.2500 #### [facility] [address] [place], [address] GFR/1.73 sq M.predicted among non-blacks MDRD (S/P/Bld) [Vol rate/Area] 79 mL/min/{1.73_m2} Normal >60 [facility] Comment on above: Order Comment: 155 Result Comment: mL/m in/1.73m2 CKD-EPI Creatinine Equation (2020) Performed By: #### L 100.0500, L500.2500 #### [facility] [address] [place], [address] Globulin (S) [Mass/Vol] 2.8 g/dL Normal 2.2-4.2 [facility] Comment on above: Order Comment: 155 Performed By: #### L 100.0500, L500.2500 #### [facility] [address] [place], [address] Glucose [Mass/Vol] 93 mg/dL Normal 70-99 [facility] Comment on above: Order Comment: 155 Performed By: #### L 100.0500, L500.2500 #### [facility] [address] [place], [address] T PROT 6.7 g/dL Normal 5.9-8.4 [facility] Comment on above: Order Comment: 155 Performed By: #### L 100.0500, L500.2500 #### [facility] [address] [place], [address] Urea nitrogen [Mass/Vol] 11 mg/dL Normal 4-19 [facility] Comment on above: Order Comment: 155 Performed By: #### L 100.0500, L500.2500 #### [facility] [address] [place], [address] Erythrocyte distribution wid th ratioOrdered By: Dianna Guido on 10-04-2024 Erythrocyte distribution width (RBC) [Ratio] 14.5 % 11.6-14.6 [facility] Erythrocyte distribution wid th standard deviationOrdered By: Dianna Guido on 10-04-2024 Erythrocyte distribution width (RBC) [Ratio] 42.3 fl 35.1-43.9 [facility] Glomerular filtration rate ( GFR) estimation/1.73 sq m using serum, plasma, or whole bOrdered By: Dianna Guido on 10-04-2024 GFR/1.73 sq M.predicted among non-blacks MDRD (S/P/Bld) [Vol rate/Area] 79 mL/min/{1.73_m2} >60 [facility] Comment on above: mL/min/1.73m2 CKD-EP I Creatinine Equation (2020) Hematocrit Auto (Bld) [Volum e fraction]Ordered By: Dianna Guido on 10-04-2024 Hematocrit (Bld) [Volume fraction] 37.0 % 37-47 [facility] Hemoglobin measurementOrdere d By: Dianna Guido on 10-04-2024 Hemoglobin (Bld) [Mass/Vol] 11.2 g/dL Low 12.0-15.0 [facility] LDL calc ser/plasOrdered By: Dianna Guido on 10-04-2024 Cholesterol in LDL [Mass/Vol] 65 mg/dL [facility] Comment on above: Sduzycftyt=774-980 m g/dL & Higher Hdni=989 mg/dL or greater Laboratory - Chemistry and C hemistry - challengeOrdered By: Dianna Guido on 10-04-2024 AST [Catalytic activity/Vol] 26 U/L <32 [facility] Lipid Profileon 10-04-2024 CHOL:HDL 2.64 Normal [facility] Comment on above: Order Comment: 155 Performed By: #### L 100.0500, L500.2500 #### [facility] [address] [place], [address] Cholesterol in HDL [Mass/Vol] 49 mg/dL Normal [facility] Comment on above: Order Comment: 155 Result Comment: Karis onal Cholesterol Education Program (NCEP) guidelines: <40 mg/dL: Low HDL-cholesterol (major risk factor for CHD) >= 60 mg/dL: High HDL-cholesterol (negative risk factor for CHD) HDL-cholesterol is affected by a number of factors, e.g. smoking, exercise, hormones, sex and age. Performed By: #### L 100.0500, L500.2500 #### [facility] [address] [place], [address] Cholesterol in LDL [Mass/Vol] 65 mg/dL Normal [facility] Comment on above: Order Comment: 155 Result Comment: Bord wqsjjd=124-575 mg/dL Higher Ptuv=414 mg/dL or greater Performed By: #### L 100.0500, L500.2500 #### [facility] [address] [place], [address] Cholesterol in VLDL [Mass/Vol] 16 mg/dL Normal 5-40 [facility] Comment on above: Order Comment: 155 Performed By: #### L 100.0500, L500.2500 #### [facility] [address] [place], [address] Triglyceride [Mass/Vol] 81 mg/dL Normal [facility] Comment on above: Order Comment: 155 Result Comment: The drugs N-Acetylcysteine and Metamizole may falsely depress this assay. Normal range: <150 mg/dL Borderline High: 150-199 mg/dL High: 200-499 mg/dL Very High: >500 mg/dL Performed By: #### L 100.0500, L500.2500 #### [facility] [address] [place], [address] Cholesterol [Mass/Vol] 130 mg/dL Normal <=200 [facility] Comment on above: Order Comment: 155 Result Comment: Chol esterol level, Desirable <200 mg/dL Borderline high cholesterol 200-239 mg/dL High cholesterol >=240 mg/dL Recommendations of the NCEP Adult Treatment Panel for the following risk-cutoff thresholds for the [place] population. Performed By: #### L 100.0500, L500.2500 #### [facility] [address] [facility] [facility] [address] [place], [place], [address] MCV (mean corpuscular volume ) determinationOrdered By: Dianna Guido on 10-04-2024 MCV (RBC) [Entitic vol] 81.1 fL 81-99 [facility] Mean corpuscular hemoglobin (MCH) determinationOrdered By: Dianna Guido on 10-04-2024 MCH (RBC) [Entitic mass] 24.6 pg Low 27.0-32.0 [facility] Mean corpuscular hemoglobin concentration (MCHC) determinationOrdered By: Dianna Guido on 10-04-2024 MCHC (RBC) [Mass/Vol] 30.3 g/dL Low 32-36 [facility] Mean platelet volume determi nationOrdered By: Dianna Guido on 10-04-2024 Platelet mean volume (Bld) [Entitic vol] 10.8 fL 6.2-12.0 [facility] Platelet countOrdered By: Gonsalo Guido on 10-04-2024 Platelets (Bld) [#/Vol] 333 10*3/uL 150-450 [facility] Potassium measurement (mass/ volume)Ordered By: Dianna Guido on 10-04-2024 Potassium (Unsp spec) [Mass/Vol] 3.8 mmol/L 3.3-5.1 [facility] RBC Auto (Bld) [#/Vol]Ordere d By: Dianna Guido on 10-04-2024 RBC (Bld) [#/Vol] 4.56 10*6/uL 4.2-5.4 [facility] Screening total cholesterol/ high density lipoprotein (HDL) cholesterol ratioOrdered By: Dianna Guido on 10-04-2024 Cholesterol.total/Chol esterol in HDL [Mass ratio] 2.64 {ratio} [facility] Serum creatinine measurement (mass/volume)Ordered By: Dianna Guido on 10-04-2024 Creatinine [Mass/Vol] 0.75 mg/dL 0.70-1.20 [facility] Serum globulin measurementOr dered By: Dianna Guido on 10-04-2024 Globulin (S) [Mass/Vol] 2.8 g/dL 2.2-4.2 [facility] Serum glucose measurement (m ass/volume)Ordered By: Dianna Guido on 10-04-2024 Glucose [Mass/Vol] 93 mg/dL 70-99 [facility] Serum or plasma alanine rasheed otransferase (ALT) measurementOrdered By: Dianna Guido on 10-04-2024 ALT [Catalytic activity/Vol] 9 U/L <35 [facility] Serum or plasma albumin slava urement (mass/volume)Ordered By: Dianna Guido on 10-04-2024 Albumin [Mass/Vol] 3.9 g/dL 3.4-4.8 [facility] Serum or plasma albumin/glob ulin mass ratioOrdered By: Dianna Guido on 10-04-2024 Albumin/Globulin [Mass ratio] 1.4 {ratio} 0.9-2.4 [facility] Serum or plasma alkaline catalina sphatase measurementOrdered By: Dianna Guido on 10-04-2024 ALP [Catalytic activity/Vol] 112 U/L High 35-104 [facility] Serum or plasma calcium slava urement (mass/volume)Ordered By: Dianna Guido on 10-04-2024 Calcium [Mass/Vol] 9.0 mg/dL 7.6-11.0 [facility] Serum or plasma cholesterol in HDL measurement (mass/volume)Ordered By: Dianna Guido on 10-04-2024 Cholesterol in HDL [Mass/Vol] 49 mg/dL >40 [facility] Comment on above: National Cholesterol Education Program (NCEP) guidelines:<40 mg/dL: Low HDL-cholesterol (major risk factor for CHD)>= 60 mg/dL: High HDL-cholesterol (negative risk factor for CHD)HDL-cholesterol is affected by a number of factors, e.g. smoking, exercise, hormones, sex and age. Serum or plasma cholesterol measurement (mass/volume)Ordered By: Dianna Guido on 10-04-2024 Cholesterol [Mass/Vol] 130 mg/dL <201 [facility] Comment on above: Cholesterol level, D esirable <200 mg/dLBorderline high cholesterol 200-239 mg/dLHigh cholesterol >=240 mg/dLRecommendations of the NCEP Adult Treatment Panel for the following risk-cutoff thresholds for the [place] population. Serum or plasma urea nitroge n measurement (mass/volume)Ordered By: Dianna Guido on 10-04-2024 Urea nitrogen [Mass/Vol] 11 mg/dL 4-19 [facility] Sodium levelOrdered By: Maite Guido on 10-04-2024 Sodium [Moles/Vol] 143 mmol/L 133-145 [facility] Total proteinOrdered By: Zita Guido on 10-04-2024 Protein [Mass/Vol] 6.7 g/dL 5.9-8.4 [facility] Triglycerides measurementOrd ered By: Dianna Guido on 10-04-2024 Triglyceride [Mass/Vol] 81 mg/dL <199 [facility] Comment on above: The drugs N-Acetylcy steine and Metamizole may falsely depress this assay. Normal range: <150 mg/dLBorderline High: 150-199 mg/dLHigh: 200-499 mg/dLVery High: >500 mg/dL Vitamin D,25 Hydroxyon 10-04 Vitamin D 25-OH 42.8 ng/mL Normal 30-100 [facility] Comment on above: Order Comment: 155 Result Comment: Alessandra min D Status Deficiency: <20 ng/mL (50nmol/L) Insufficiency: 20-30 ng/mL (50-75 nmol/L) Sufficiency: 30-100 ng/mL (75-250 nmol/L) Toxicity: >100 ng/mL (>250 nmol/L) Performed By: #### L 100.0500, L500.2500 #### [facility] [address] [place], [address] White blood cell (WBC) count Ordered By: Dianna Guido on 10-04-2024 WBC (Bld) [#/Vol] 6.5 10*3/uL 4.4-11.0 [facility] Comprehensive Metabolic Prof ilon 05-31-2024 Albumin [Mass/Vol] 3.2 g/dL Normal 3.2-5.0 [facility] Comment on above: Order Comment: 155 Performed By: #### L 500.4100, L501.5200, [id number] #### [facility] [address] [place], [address] Albumin/Globulin [Mass ratio] 0.9 {ratio} Normal 0.9-2.4 [facility] Comment on above: Order Comment: 155 Performed By: #### L 500.4100, L501.5200, [id number] #### [facility] [address] [place], [address] ALK P 115 U/L Normal 45-117 [facility] Comment on above: Order Comment: 155 Performed By: #### L 500.4100, L501.5200, [id number] #### [facility] [address] [place], [address] ALT [Catalytic activity/Vol] 17 U/L Normal 13-56 [facility] Comment on above: Order Comment: 155 Performed By: #### L 500.4100, L501.5200, [id number] #### [facility] [address] [place], [address] AST [Catalytic activity/Vol] 23 U/L Normal 15-37 [facility] Comment on above: Order Comment: 155 Performed By: #### L 500.4100, L501.5200, [id number] #### [facility] [address] [place], [address] Bilirubin [Mass/Vol] 1.60 mg/dL High 0.20-1.[address] [facility] Comment on above: Order Comment: 155 Result Comment: For patients on eltrombopag therapy, use of Dimension [place] TBIL is not recommended. Performed By: #### L 500.4100, L501.5200, L500.4050 #### [facility] [address] [place], [address] BUN/CRE 14.9 RATIO Normal 10-20 [facility] Comment on above: Order Comment: 155 Performed By: #### L 500.4100, L501.5200, [id number] #### [facility] [address] [place], [address] CA,Total 9.1 mg/dL Normal 8.5-10.1 [facility] Comment on above: Order Comment: 155 Performed By: #### L 500.4100, [id number], [id number] #### [facility] [address] [place], [address] Chloride [Moles/Vol] 109 mmol/L High 98-[address] [facility] Comment on above: Order Comment: 155 Performed By: #### L 500.4100, [id number], [id number] #### [facility] [address] [place], [address] CO2 [Moles/Vol] 31.0 mmol/L Normal 21.0-32.0 [facility] Comment on above: Order Comment: 155 Performed By: #### L 500.4100, L501.5200, [id number] #### [facility] [address] [place], [address] Creatinine [Mass/Vol] 0.74 mg/dL Normal 0.55-1.02 [facility] Comment on above: Order Comment: 155 Result Comment: The validity of the calculated GFR GFRAA in patients over 70 years has not been determined. Clinical correlation is essential. Performed By: #### L 500.4100, L501.5200, [id number] #### [facility] [address] [place], [address] EST GFR - AA 97 mL/min Normal >60 [facility] Comment on above: Order Comment: 155 Result Comment: Afri can Somali GFR Calc Performed By: #### L 500.4100, L501.5200, [id number] #### [facility] [address] [place], [address] GAP 4 Low 5-15 [facility] Comment on above: Order Comment: 155 Performed By: #### L 500.4100, L501.5200, [id number] #### [facility] [address] [place], [address] GFR/1.73 sq M.predicted among non-blacks MDRD (S/P/Bld) [Vol rate/Area] 80 mL/min/{1.73_m2} Normal >60 [facility] Comment on above: Order Comment: 155 Result Comment: Non- GFR Calc Performed By: #### L 500.4100, L501.5200, [id number] #### [facility] [address] [place], [address] Globulin (S) [Mass/Vol] 3.4 g/dL Normal 2.2-4.2 [facility] Comment on above: Order Comment: 155 Performed By: #### L 500.4100, L501.5200, [id number] #### [facility] [address] [place], [address] Glucose [Mass/Vol] 97 mg/dL Normal 74-106 [facility] Comment on above: Order Comment: 155 Performed By: #### L 500.4100, L501.5200, [id number] #### [facility] [address] [place], [address] Potassium [Moles/Vol] 3.9 mmol/L Normal 3.5-5.1 [facility] Comment on above: Order Comment: 155 Performed By: #### L 500.4100, L501.5200, [id number] #### [facility] [address] [place], [address] Sodium [Moles/Vol] 143 mmol/L Normal 136-145 [facility] Comment on above: Order Comment: 155 Performed By: #### L 500.4100, L501.5200, [id number] #### [facility] [address] [place], [address] T PROT 6.6 g/dL Normal 6.4-8.2 [facility] Comment on above: Order Comment: 155 Performed By: #### L 500.4100, L501.5200, [id number] #### [facility] [address] [place], [address] Urea nitrogen [Mass/Vol] 11 mg/dL Normal 7-18 [facility] Comment on above: Order Comment: 155 Performed By: #### L 500.4100, L501.5200, [id number] #### [facility] [address] [place], [address] Lipid Profileon 05-31-2024 Cholesterol [Mass/Vol] 128 mg/dL Normal 200 [facility] Comment on above: Order Comment: 155 Result Comment: <200 mg/dL Desirable 200-240 mg/dL Borderline >240 mg/dL High Risk Performed By: #### L 500.4100, L501.5200, [id number] #### [facility] [address] [place], [address] Cholesterol in HDL [Mass/Vol] 57 mg/dL Normal [facility] Comment on above: Order Comment: 155 Result Comment: The drugs N-Acetylcysteine and Metamizole may falsely depress this assay. Reference Range HDL <40 mg/dL Low HDL Cholesterol HDL >or= 60 mg/dL High HDL Cholesterol Performed By: #### L 500.4100, L501.5200, [id number] #### [facility] [address] [place], [address] Cholesterol in LDL [Mass/Vol] 52 mg/dL Normal 0-130 [facility] Comment on above: Order Comment: 155 Performed By: #### L 500.4100, L501.5200, [id number] #### [facility] [address] [place], [address] Cholesterol in VLDL [Mass/Vol] 19 mg/dL Normal 5-40 [facility] Comment on above: Order Comment: 155 Performed By: #### L 500.4100, L501.5200, [id number] #### [facility] [address] [place], [address] Triglyceride [Mass/Vol] 97 mg/dL Normal [facility] Comment on above: Order Comment: 155 Result Comment: The drugs N-Acetylcysteine and Metamizole may falsely depress this assay. Serum Triglycerides Reference Interval Normal <150 mg/dL Borderline high 150 - 199 mg/dL High 200 - 499 mg/dL Very High > or = 500 mg/dL Performed By: #### L 500.4100, L501.5200, L500.4050 #### [facility] [address] [place], [address] Magnesiumon 05-31-2024 Magnesium [Mass/Vol] 2.4 mg/dL Normal 1.6-2.[address] [facility] Comment on above: Order Comment: 155 Performed By: #### L 500.4100, L501.5200, [id number] #### [facility] [address] [place], [address] Anaerobic cultureOrdered By: Andie Bernal on 05-22-2023 Bacteria identified Anaer cx Nom (Unsp spec) No anaerobic bacteria isolated. [facility] Bacteria identified Cx Nom ( Wound)Ordered By: Andie Bernal on 05-22-2023 Wound Culture Enterococcus faecalis [facility] Wound Culture Staphylococcus lugdunensis [facility] Gram stain for investigation of transfusion reactionOrdered By: Andie Bernal on 05-22-2023 Microscopic observation Gram stain Nom (Unsp spec) [facility] Absolute lymphocyte countOrd ered By: Dianna Guido on 05-19-2023 Lymphocytes Auto (Unsp spec) [#/Vol] 2.12 10*3/uL 0.83-4.51 [facility] Basophil percentageOrdered B y: Dianna Guido on 05-19-2023 Basophils/100 WBC (Bld) 1.0 % 0-1 [facility] Eosinophils/100 WBC (Bld) 3.2 % 0-5 [facility] Neutrophils (Bld) [#/Vol] 3.6 10*3/uL 2.0-7.7 [facility] Neutrophils/100 WBC (Bld) 52.8 % 47-70 [facility] WBC (Bld) [#/Vol] 6.9 10*3/uL 4.4-11.0 [facility] Blood erythrocytes count (nu mber/volume)Ordered By: Dianna Guido on 05-19-2023 RBC (Bld) [#/Vol] 5.10 10*6/uL 4.2-5.4 [facility] Blood hemoglobin measurement (mass/volume)Ordered By: Dianna Guido on 05-19-2023 Hemoglobin (Bld) [Mass/Vol] 14.0 g/dL 12.0-15.0 [facility] Blood lymphocytes/100 leukoc ytesOrdered By: Dianna Gudio on 05-19-2023 Lymphocytes/100 WBC (Bld) 30.9 % 19-41 [facility] Blood monocytes/100 leukocyt esOrdered By: Dianna Guido on 05-19-2023 Monocytes/100 WBC (Bld) 11.8 % 0-10 [facility] Blood platelet mean volumeOr dered By: Dianna Guido on 05-19-2023 Platelet mean volume (Bld) [Entitic vol] 10.6 fL 6.2-12.0 [facility] Determination of erythrocyte mean corpuscular volume (MCV)Ordered By: Dianna Guido on 05-19-2023 MCV (RBC) [Entitic vol] 90.8 fL 81-99 [facility] Hematocrit Auto (Bld) [Volum e fraction]Ordered By: Dianna Guido on 05-19-2023 Hematocrit (Bld) [Volume fraction] 46.3 % 37-47 [facility] - Hematology and Cell countsOrdered By: Dianna Guido on 05-19-2023 Erythrocyte distribution width (RBC) [Entitic vol] 46.1 fL 35.1-43.9 [facility] Erythrocyte distribution width (RBC) [Ratio] 13.7 % 11.6-14.6 [facility] Immature granulocytes/100 WBC (Bld) 0.300 % 0.0-0.9 [facility] Comment on above: IG% - Immature Granu locytes (promyelocytes, myelocytes and metamyelocytes) > 1% indicates that a LEFT SHIFT is Present. MCH (RBC) [Entitic mass] 27.5 pg 27.0-32.0 [facility] Nucleated RBC/100 WBC (Bld) [Ratio] 0 % 0-5 [facility] MCHC Auto (RBC) [Mass/Vol]Or dered By: Dianna Guido on 05-19-2023 MCHC (RBC) [Mass/Vol] 30.2 g/dL 32-36 [facility] Platelets bldOrdered By: Zita Guido on 05-19-2023 Platelets (Bld) [#/Vol] 285 10*3/uL 150-450 [facility] Bacteria identified Cx Nom ( Wound)Ordered By: Dianna Guido on 05-16-2023 Wound Culture Presumptive E. coli [facility] Gram stain for investigation of transfusion reactionOrdered By: Dianna Guido on 05-16-2023 Microscopic observation Gram stain Nom (Unsp spec) [facility] Basophil percentageOrdered B y: Dianna Guido on 05-14-2023 WBC (Bld) [#/Vol] 6.8 10*3/uL 4.4-11.0 [facility] Blood erythrocytes count (nu mber/volume)Ordered By: Dianna Guido on 05-14-2023 RBC (Bld) [#/Vol] 5.19 10*6/uL 4.2-5.4 [facility] Blood hemoglobin measurement (mass/volume)Ordered By: Dianna Guido on 05-14-2023 Hemoglobin (Bld) [Mass/Vol] 14.2 g/dL 12.0-15.0 [facility] Blood platelet mean volumeOr dered By: Dianna Guido on 05-14-2023 Platelet mean volume (Bld) [Entitic vol] 10.4 fL 6.2-12.0 [facility] Determination of erythrocyte mean corpuscular volume (MCV)Ordered By: Dianna Guido on 05-14-2023 MCV (RBC) [Entitic vol] 88.8 fL 81-99 [facility] Hematocrit Auto (Bld) [Volum e fraction]Ordered By: Dianna Guido on 05-14-2023 Hematocrit (Bld) [Volume fraction] 46.1 % 37-47 [facility] - Hematology and Cell countsOrdered By: Dianna Guido on 05-14-2023 Erythrocyte distribution width (RBC) [Entitic vol] 44.3 fL 35.1-43.9 [facility] Erythrocyte distribution width (RBC) [Ratio] 13.6 % 11.6-14.6 [facility] MCH (RBC) [Entitic mass] 27.4 pg 27.0-32.0 [facility] MCHC Auto (RBC) [Mass/Vol]Or dered By: Dianna Guido on 05-14-2023 MCHC (RBC) [Mass/Vol] 30.8 g/dL 32-36 [facility] Platelets bldOrdered By: Zita Guido on 05-14-2023 Platelets (Bld) [#/Vol] 289 10*3/uL 150-450 [facility] Absolute lymphocyte countOrd ered By: Dianna Guido on 04-28-2023 Lymphocytes Auto (Unsp spec) [#/Vol] 1.69 10*3/uL 0.83-4.51 [facility] Basophil percentageOrdered B y: Dianna Guido on 04-28-2023 Basophils/100 WBC (Bld) 0.9 % 0-1 [facility] Chloride [Moles/Vol] 105 mmol/L 98-[address] [facility] Eosinophils/100 WBC (Bld) 3.1 % 0-5 [facility] Glucose [Mass/Vol] 93 mg/dL 74-106 [facility] Neutrophils (Bld) [#/Vol] 3.6 10*3/uL 2.0-7.7 [facility] Neutrophils/100 WBC (Bld) 56.0 % 47-70 [facility] Potassium [Moles/Vol] 3.6 mmol/L 3.5-5.1 [facility] Sodium [Moles/Vol] 143 mmol/L 136-145 [facility] WBC (Bld) [#/Vol] 6.4 10*3/uL 4.4-11.0 [facility] Blood erythrocytes count (nu mber/volume)Ordered By: Dianna Guido on 04-28-2023 RBC (Bld) [#/Vol] 4.76 10*6/uL 4.2-5.4 [facility] Blood hemoglobin measurement (mass/volume)Ordered By: Dianna Guido on 04-28-2023 Hemoglobin (Bld) [Mass/Vol] 13.0 g/dL 12.0-15.0 [facility] Blood lymphocytes/100 leukoc ytesOrdered By: Dianna Guido on 04-28-2023 Lymphocytes/100 WBC (Bld) 26.3 % 19-41 [facility] Blood monocytes/100 leukocyt esOrdered By: Dianna Guido on 04-28-2023 Monocytes/100 WBC (Bld) 13.4 % 0-10 [facility] Blood platelet mean volumeOr dered By: Dianna Guido on 04-28-2023 Platelet mean volume (Bld) [Entitic vol] 10.6 fL 6.2-12.0 [facility] Determination of erythrocyte mean corpuscular volume (MCV)Ordered By: Dianna Guido on 04-28-2023 MCV (RBC) [Entitic vol] 91.0 fL 81-99 [facility] Hematocrit Auto (Bld) [Volum e fraction]Ordered By: Dianna Guido on 04-28-2023 Hematocrit (Bld) [Volume fraction] 43.3 % 37-47 [facility] - Chemistry and C hemistry - challengeOrdered By: Dianna Guido on 04-28-2023 CO2 [Moles/Vol] 34.0 mmol/L 21.0-32.0 [facility] Magnesium [Mass/Vol] 2.3 mg/dL 1.6-2.[address] [facility] Urea nitrogen/Creatinine [Mass ratio] 12.9 mg/mg 10-20 [facility] - Hematology and Cell countsOrdered By: Dianna Guido on 04-28-2023 Erythrocyte distribution width (RBC) [Entitic vol] 45.0 fL 35.1-43.9 [facility] Erythrocyte distribution width (RBC) [Ratio] 13.4 % 11.6-14.6 [facility] Immature granulocytes/100 WBC (Bld) 0.300 % 0.0-0.9 [facility] Comment on above: IG% - Immature Granu locytes (promyelocytes, myelocytes and metamyelocytes) > 1% indicates that a LEFT SHIFT is Present. MCH (RBC) [Entitic mass] 27.3 pg 27.0-32.0 [facility] Nucleated RBC/100 WBC (Bld) [Ratio] 0 % 0-5 [facility] MCHC Auto (RBC) [Mass/Vol]Or dered By: Dianna Guido on 04-28-2023 MCHC (RBC) [Mass/Vol] 30.0 g/dL 32-36 [facility] No Panel InformationOrdered By: Dianna Guido on 04-28-2023 Estimated GFR (MDRD) Amer 92 mL/min >60 [facility] Comment on above: GFR Calc Estimated GFR (MDRD) Non-Af Amer 76 mL/min >60 [facility] Comment on above: Non- GFR Calc Platelets bldOrdered By: iZta Guido on 04-28-2023 Platelets (Bld) [#/Vol] 253 10*3/uL 150-450 [facility] Serum or plasma calcium slava urement (mass/volume)Ordered By: Dianna Guido on 04-28-2023 Calcium [Mass/Vol] 8.6 mg/dL 8.5-10.1 [facility] Serum or plasma creatinine m easurement (mass/volume)Ordered By: Dianna Guido on 04-28-2023 Creatinine [Mass/Vol] 0.78 mg/dL 0.55-1.02 [facility] Comment on above: The validity of the calculated GFR & GFRAA in patients over 70 years has not been determined. Clinical correlation is essential. Serum or plasma urea nitroge n measurement (mass/volume)Ordered By: Dianna Guido on 04-28-2023 Urea nitrogen [Mass/Vol] 10 mg/dL 7-18 [facility] Thin prep Papanicolaou smear with manual screeningOrdered By: Dianna Guido on 04-28-2023 Thin prep Papanicolaou smear with manual screening 4 5-15 [facility] Basophil percentageOrdered B y: Dianna Guido on 03-26-2023 Chloride [Moles/Vol] 104 mmol/L 98-[address] [facility] Glucose [Mass/Vol] 98 mg/dL 74-106 [facility] Potassium [Moles/Vol] 3.9 mmol/L 3.5-5.1 [facility] Sodium [Moles/Vol] 140 mmol/L 136-145 [facility] - Chemistry and C hemistry - challengeOrdered By: Dianna Guido on 03-26-2023 CO2 [Moles/Vol] 33.0 mmol/L 21.0-32.0 [facility] Magnesium [Mass/Vol] 2.5 mg/dL 1.6-2.[address] [facility] Urea nitrogen/Creatinine [Mass ratio] 15.0 mg/mg 10- [facility] No Panel InformationOrdered By: Dianna Guido on 03-26-2023 Estimated GFR (MDRD) Amer 98 mL/min >60 [facility] Comment on above: GFR Calc Estimated GFR (MDRD) Non-Af Amer 81 mL/min >60 [facility] Comment on above: Non- GFR Calc Serum or plasma calcium slava urement (mass/volume)Ordered By: Dianna Guido on 03-26-2023 Calcium [Mass/Vol] 9.1 mg/dL 8.5-10.1 [facility] Serum or plasma creatinine m easurement (mass/volume)Ordered By: Dianna Guido on 03-26-2023 Creatinine [Mass/Vol] 0.73 mg/dL 0.55-1.02 [facility] Comment on above: The validity of the calculated GFR & GFRAA in patients over 70 years has not been determined. Clinical correlation is essential. Serum or plasma urea nitroge n measurement (mass/volume)Ordered By: Dianna Guido on 03-26-2023 Urea nitrogen [Mass/Vol] 11 mg/dL 12-24 [facility] Thin prep Papanicolaou smear with manual screeningOrdered By: Dianna Guido on 03-26-2023 Thin prep Papanicolaou smear with manual screening 3 5-15 [facility] Basophil percentageOrdered B y: Dianna Guido on 02-27-2023 Chloride [Moles/Vol] 105 mmol/L 98-[address] [facility] Glucose [Mass/Vol] 103 mg/dL 74-106 [facility] Comment on above: Fasting Glucose resu lt from 100 to 125 mg/dL suggests IMPAIRED HOMEOSTASIS per A.D.A. criteria. Potassium [Moles/Vol] 3.8 mmol/L 3.5-5.1 [facility] Sodium [Moles/Vol] 140 mmol/L 136-145 [facility] - Chemistry and C hemistry - challengeOrdered By: Dianna Guido on 02-27-2023 CO2 [Moles/Vol] 33.0 mmol/L 21.0-32.0 [facility] Magnesium [Mass/Vol] 2.3 mg/dL 1.6-2.[address] [facility] Urea nitrogen/Creatinine [Mass ratio] 13.1 mg/mg 10-20 [facility] No Panel InformationOrdered By: Dianna Guido on 02-27-2023 Estimated GFR (MDRD) Amer 93 mL/min >60 [facility] Comment on above: GFR Calc Estimated GFR (MDRD) Non-Af Amer 77 mL/min >60 [facility] Comment on above: Non- GFR Calc Serum or plasma calcium slava urement (mass/volume)Ordered By: Dianna Guido on 02-27-2023 Calcium [Mass/Vol] 8.9 mg/dL 8.5-10.1 [facility] Serum or plasma creatinine m easurement (mass/volume)Ordered By: Dianna Guido on 02-27-2023 Creatinine [Mass/Vol] 0.76 mg/dL 0.55-1.02 [facility] Comment on above: The validity of the calculated GFR & GFRAA in patients over 70 years has not been determined. Clinical correlation is essential. Serum or plasma urea nitroge n measurement (mass/volume)Ordered By: Dianna Guido on 02-27-2023 Urea nitrogen [Mass/Vol] 10 mg/dL 7-18 [facility] Thin prep Papanicolaou smear with manual screeningOrdered By: Dianna Guido on 02-27-2023 Thin prep Papanicolaou smear with manual screening 2 5-15 [facility] Basophil percentageOrdered B y: Dianna Guido on 01-03-2023 Chloride [Moles/Vol] 104 mmol/L 98-[address] [facility] Glucose [Mass/Vol] 107 mg/dL 74-106 [facility] Comment on above: Fasting Glucose resu lt from 100 to 125 mg/dL suggests IMPAIRED HOMEOSTASIS per A.D.A. criteria. Potassium [Moles/Vol] 3.8 mmol/L 3.5-5.1 [facility] Sodium [Moles/Vol] 141 mmol/L 136-145 [facility] - Chemistry and C hemistry - challengeOrdered By: Dianna Guido on 01-03-2023 CO2 [Moles/Vol] 31.0 mmol/L 21.0-32.0 [facility] Urea nitrogen/Creatinine [Mass ratio] 10.0 mg/mg 10-20 [facility] No Panel InformationOrdered By: Dianna Guido on 01-03-2023 Estimated GFR (MDRD) Amer 104 mL/min >60 [facility] Comment on above: GFR Calc Estimated GFR (MDRD) Non-Af Amer 86 mL/min >60 [facility] Comment on above: Non- GFR Calc Serum or plasma calcium slava urement (mass/volume)Ordered By: Dianna Guido on 01-03-2023 Calcium [Mass/Vol] 9.0 mg/dL 8.5-10.1 [facility] Serum or plasma creatinine m easurement (mass/volume)Ordered By: Dianna Guido on 01-03-2023 Creatinine [Mass/Vol] 0.70 mg/dL 0.55-1.02 [facility] Comment on above: The validity of the calculated GFR & GFRAA in patients over 70 years has not been determined. Clinical correlation is essential. Serum or plasma urea nitroge n measurement (mass/volume)Ordered By: Dianna Guido on 01-03-2023 Urea nitrogen [Mass/Vol] 7 mg/dL 7-18 [facility] Thin prep Papanicolaou smear with manual screeningOrdered By: Dianna Guido on 01-03-2023 Thin prep Papanicolaou smear with manual screening 6 5-15 [facility] Absolute lymphocyte countOrd ered By: Dianna Guido on 12-24-2022 Lymphocytes Auto (Unsp spec) [#/Vol] 1.38 10*3/uL 0.83-4.51 [facility] Basophil percentageOrdered B y: Dianna Guido on 12-24-2022 Basophils/100 WBC (Bld) 0.7 % 0-1 [facility] Chloride [Moles/Vol] 103 mmol/L 98-[address] [facility] Eosinophils/100 WBC (Bld) 2.5 % 0-5 [facility] Glucose [Mass/Vol] 111 mg/dL 74-106 [facility] Comment on above: Fasting Glucose resu lt from 100 to 125 mg/dL suggests IMPAIRED HOMEOSTASIS per A.D.A. criteria. Neutrophils (Bld) [#/Vol] 3.7 10*3/uL 2.0-7.7 [facility] Neutrophils/100 WBC (Bld) 62.1 % 47-70 [facility] Potassium [Moles/Vol] 3.4 mmol/L 3.5-5.1 [facility] Sodium [Moles/Vol] 139 mmol/L 136-145 [facility] WBC (Bld) [#/Vol] 5.9 10*3/uL 4.4-11.0 [facility] Blood erythrocytes count (nu mber/volume)Ordered By: Dianna Guido on 12-24-2022 RBC (Bld) [#/Vol] 5.38 10*6/uL 4.2-5.4 [facility] Blood hemoglobin measurement (mass/volume)Ordered By: Dianna Guido on 12-24-2022 Hemoglobin (Bld) [Mass/Vol] 14.9 g/dL 12.0-15.0 [facility] Blood lymphocytes/100 leukoc ytesOrdered By: Dianna Guido on 12-24-2022 Lymphocytes/100 WBC (Bld) 23.4 % 19-41 [facility] Blood monocytes/100 leukocyt esOrdered By: Dianna Guido on 12-24-2022 Monocytes/100 WBC (Bld) 11.0 % 0-10 [facility] Blood platelet mean volumeOr dered By: Dianna Guido on 12-24-2022 Platelet mean volume (Bld) [Entitic vol] 9.6 fL 6.2-12.0 [facility] Determination of erythrocyte mean corpuscular volume (MCV)Ordered By: Dianna Guido on 12-24-2022 MCV (RBC) [Entitic vol] 90.0 fL 81-99 [facility] Hematocrit Auto (Bld) [Volum e fraction]Ordered By: Dianna Guido on 12-24-2022 Hematocrit (Bld) [Volume fraction] 48.4 % 37-47 [facility] Laboratory - Chemistry and C hemistry - challengeOrdered By: Dianna Guido on 12-24-2022 CO2 [Moles/Vol] 31.0 mmol/L 21.0-32.0 [facility] Urea nitrogen/Creatinine [Mass ratio] 9.0 mg/mg 10-20 [facility] Laboratory - Hematology and Cell countsOrdered By: Dianna Guido on 12-24-2022 Erythrocyte distribution width (RBC) [Entitic vol] 44.5 fL 35.1-43.9 [facility] Erythrocyte distribution width (RBC) [Ratio] 13.5 % 11.6-14.6 [facility] Immature granulocytes/100 WBC (Bld) 0.300 % 0.0-0.9 [facility] Comment on above: IG% - Immature Granu locytes (promyelocytes, myelocytes and metamyelocytes) > 1% indicates that a LEFT SHIFT is Present. MCH (RBC) [Entitic mass] 27.7 pg 27.0-32.0 [facility] Nucleated RBC/100 WBC (Bld) [Ratio] 0 % 0-5 [facility] MCHC Auto (RBC) [Mass/Vol]Or dered By: Dianna Guido on 12-24-2022 MCHC (RBC) [Mass/Vol] 30.8 g/dL 32-36 [facility] No Panel InformationOrdered By: Dianna Guido on 12-24-2022 Estimated GFR (MDRD) Amer 109 mL/min >60 [facility] Comment on above: GFR Calc Estimated GFR (MDRD) Non-Af Amer 90 mL/min >60 [facility] Comment on above: Non- GFR Calc Platelets bldOrdered By: Zita Guido on 12-24-2022 Platelets (Bld) [#/Vol] 283 10*3/uL 150-450 [facility] Serum or plasma calcium slava urement (mass/volume)Ordered By: Dianna Guido on 12-24-2022 Calcium [Mass/Vol] 8.8 mg/dL 8.5-10.1 [facility] Serum or plasma creatinine m easurement (mass/volume)Ordered By: Dianna Guido on 12-24-2022 Creatinine [Mass/Vol] 0.67 mg/dL 0.55-1.02 [facility] Comment on above: The validity of the calculated GFR & GFRAA in patients over 70 years has not been determined. Clinical correlation is essential. Serum or plasma urea nitroge n measurement (mass/volume)Ordered By: Dianna Guido on 12-24-2022 Urea nitrogen [Mass/Vol] 6 mg/dL 7-18 [facility] Thin prep Papanicolaou smear with manual screeningOrdered By: Dianna Guido on 12-24-2022 Thin prep Papanicolaou smear with manual screening 5 5-15 [facility] Absolute lymphocyte countOrd ered By: Dianna Guido on 11-05-2022 Lymphocytes Auto (Unsp spec) [#/Vol] 1.42 10*3/uL 0.83-4.51 [facility] Basophil percentageOrdered B y: Dianna Guido on 11-05-2022 Basophils/100 WBC (Bld) 0.6 % 0-1 [facility] Chloride [Moles/Vol] 106 mmol/L 98-[address] [facility] Eosinophils/100 WBC (Bld) 4.1 % 0-5 [facility] Glucose [Mass/Vol] 90 mg/dL 74-106 [facility] Neutrophils (Bld) [#/Vol] 3.0 10*3/uL 2.0-7.7 [facility] Neutrophils/100 WBC (Bld) 55.5 % 47-70 [facility] Potassium [Moles/Vol] 4.0 mmol/L 3.5-5.1 [facility] Sodium [Moles/Vol] 141 mmol/L 136-145 [facility] WBC (Bld) [#/Vol] 5.4 10*3/uL 4.4-11.0 [facility] Blood erythrocytes count (nu mber/volume)Ordered By: Dianna Guido on 11-05-2022 RBC (Bld) [#/Vol] 5.26 10*6/uL 4.2-5.4 [facility] Blood hemoglobin measurement (mass/volume)Ordered By: Dianna Guido on 11-05-2022 Hemoglobin (Bld) [Mass/Vol] 14.8 g/dL 12.0-15.0 [facility] Blood lymphocytes/100 leukoc ytesOrdered By: Dianna Guido on 11-05-2022 Lymphocytes/100 WBC (Bld) 26.5 % 19-41 [facility] Blood monocytes/100 leukocyt esOrdered By: Dianna Guido on 11-05-2022 Monocytes/100 WBC (Bld) 13.1 % 0-10 [facility] Blood platelet mean volumeOr dered By: Dianna Guido on 11-05-2022 Platelet mean volume (Bld) [Entitic vol] 9.8 fL 6.2-12.0 [facility] Determination of erythrocyte mean corpuscular volume (MCV)Ordered By: Dianna Guido on 11-05-2022 MCV (RBC) [Entitic vol] 89.9 fL 81-99 [facility] Hematocrit Auto (Bld) [Volum e fraction]Ordered By: Dianna Guido on 11-05-2022 Hematocrit (Bld) [Volume fraction] 47.3 % 37-47 [facility] Laboratory - Chemistry and C hemistry - challengeOrdered By: Dianna Guido on 11-05-2022 CO2 [Moles/Vol] 29.0 mmol/L 21.0-32.0 [facility] Urea nitrogen/Creatinine [Mass ratio] 9.3 mg/mg 10-20 [facility] Laboratory - Hematology and Cell countsOrdered By: Dianna Guido on 11-05-2022 Erythrocyte distribution width (RBC) [Entitic vol] 44.0 fL 35.1-43.9 [facility] Erythrocyte distribution width (RBC) [Ratio] 13.4 % 11.6-14.6 [facility] Immature granulocytes/100 WBC (Bld) 0.200 % 0.0-0.9 [facility] Comment on above: IG% - Immature Granu locytes (promyelocytes, myelocytes and metamyelocytes) > 1% indicates that a LEFT SHIFT is Present. MCH (RBC) [Entitic mass] 28.1 pg 27.0-32.0 [facility] Nucleated RBC/100 WBC (Bld) [Ratio] 0 % 0-5 [facility] MCHC Auto (RBC) [Mass/Vol]Or dered By: Dianna Guido on 11-05-2022 MCHC (RBC) [Mass/Vol] 31.3 g/dL 32-36 [facility] No Panel InformationOrdered By: Dianna Guido on 11-05-2022 Estimated GFR (MDRD) Amer 113 mL/min >60 [facility] Comment on above: GFR Calc Estimated GFR (MDRD) Non-Af Amer 94 mL/min >60 [facility] Comment on above: Non- GFR Calc Platelets bldOrdered By: Zita Guido on 11-05-2022 Platelets (Bld) [#/Vol] 239 10*3/uL 150-450 [facility] Serum or plasma calcium slava urement (mass/volume)Ordered By: Dianna Guido on 11-05-2022 Calcium [Mass/Vol] 9.0 mg/dL 8.5-10.1 [facility] Serum or plasma creatinine m easurement (mass/volume)Ordered By: Dianna Guido on 11-05-2022 Creatinine [Mass/Vol] 0.65 mg/dL 0.55-1.02 [facility] Comment on above: The validity of the calculated GFR & GFRAA in patients over 70 years has not been determined. Clinical correlation is essential. Serum or plasma urea nitroge n measurement (mass/volume)Ordered By: Dianna Guido on 11-05-2022 Urea nitrogen [Mass/Vol] 6 mg/dL 7-18 [facility] Thin prep Papanicolaou smear with manual screeningOrdered By: Dianna Guido on 11-05-2022 Thin prep Papanicolaou smear with manual screening 6 5-15 [facility] Absolute lymphocyte counton 04-06-2022 Lymphocytes Auto (Unsp spec) [#/Vol] 1.25 10*3/uL 0.83-4.51 [facility] Work Phone: Basophil percentageon 2021 Basophils/100 WBC (Bld) 0.4 % 0-1 [facility] Work Phone: Chloride [Moles/Vol] 100 mmol/L 98-107 [facility] Work Phone: [phone] Eosinophils/100 WBC (Bld) 0.7 % 0-5 [facility] Work Phone: [phone] Glucose [Mass/Vol] 116 mg/dL 74-106 [facility] Work Phone: Comment on above: Fasting Glucose resu lt from 100 to 125 mg/dL suggests IMPAIRED HOMEOSTASIS per A.D.A. criteria. Neutrophils (Bld) [#/Vol] 3.5 10*3/uL 2.0-7.7 [facility] Work Phone: Neutrophils/100 WBC (Bld) 60.5 % 47-70 [facility] Work Phone: [phone] Potassium [Moles/Vol] 4.4 mmol/L 3.5-5.1 [facility] Work Phone: Sodium [Moles/Vol] 135 mmol/L 136-145 [facility] Work Phone: [phone] WBC (Bld) [#/Vol] 5.7 10*3/uL 4.4-11.0 [facility] Work Phone: Blood erythrocytes count (nu mber/volume)on 04-06-2022 RBC (Bld) [#/Vol] 4.96 10*6/uL 4.2-5.4 [facility] Work Phone: Blood hemoglobin measurement (mass/volume)on 04-06-2022 Hemoglobin (Bld) [Mass/Vol] 14.0 g/dL 12.0-15.0 [facility] Work Phone: [phone] Blood lymphocytes/100 leukoc yteson 04-06-2022 Lymphocytes/100 WBC (Bld) 21.9 % 19-41 [facility] Work Phone: [phone] Blood monocytes/100 leukocyt eson 04-06-2022 Monocytes/100 WBC (Bld) 16.3 % 0-10 [facility] Work Phone: Blood platelet mean volumeon 04-06-2022 Platelet mean volume (Bld) [Entitic vol] 9.7 fL 6.2-12.0 [facility] Work Phone: Determination of erythrocyte mean corpuscular volume (MCV)on 04-06-2022 MCV (RBC) [Entitic vol] 89.5 fL 81-99 [facility] Work Phone: Hematocrit Auto (Bld) [Volum e fraction]on 04-06-2022 Hematocrit (Bld) [Volume fraction] 44.4 % 37-47 [facility] Work Phone: Laboratory - Chemistry and C hemistry - challengeon 04-06-2022 CO2 [Moles/Vol] 28.0 mmol/L 21.0-32.0 [facility] Work Phone: Urea nitrogen/Creatinine [Mass ratio] 19.6 mg/mg 10-20 [facility] Work Phone: Laboratory - Hematology and Cell countson 04-06-2022 Erythrocyte distribution width (RBC) [Entitic vol] 45.3 fL 35.1-43.9 [facility] Work Phone: Erythrocyte distribution width (RBC) [Ratio] 13.9 % 11.6-14.6 [facility] Work Phone: Immature granulocytes/100 WBC (Bld) 0.200 % 0.0-0.9 [facility] Work Phone: Comment on above: IG% - Immature Granu locytes (promyelocytes, myelocytes and metamyelocytes) > 1% indicates that a LEFT SHIFT is Present. MCH (RBC) [Entitic mass] 28.2 pg 27.0-32.0 [facility] Work Phone: Nucleated RBC/100 WBC (Bld) [Ratio] 0 % 0-5 [facility] Work Phone: MCHC Auto (RBC) [Mass/Vol]on 04-06-2022 MCHC (RBC) [Mass/Vol] 31.5 g/dL 32-36 [facility] Work Phone: No Panel Informationon 04-06 Estimated GFR (MDRD) Amer 101 mL/min >60 [facility] Work Phone: Comment on above: GFR Calc Estimated GFR (MDRD) Non-Af Amer 84 mL/min >60 [facility] Work Phone: Comment on above: Non- GFR Calc Platelets bldon 04-06-2022 Platelets (Bld) [#/Vol] 212 10*3/uL 150-450 [facility] Work Phone: Serum or plasma C reactive p rotein measurement (mass/volume)on 04-06-2022 CRP [Mass/Vol] 8.87 mg/L 0.0-3.0 [facility] Work Phone: Comment on above: C-Reactive Protein ( CRP) provides useful information for thediagnosis, therapy and monitoring of inflammatory processesand associated diseases. For the evaluation of Relative Riskfor Cardiovascular Disease, a High Sensitivity CRP (HSCRP)should be ordered. Serum or plasma calcium slava urement (mass/volume)on 04-06-2022 Calcium [Mass/Vol] 8.4 mg/dL 8.5-10.1 [facility] Work Phone: Serum or plasma creatinine m easurement (mass/volume)on 04-06-2022 Creatinine [Mass/Vol] 0.71 mg/dL 0.55-1.02 [facility] Work Phone: Comment on above: The validity of the calculated GFR & GFRAA in patients over 70 years has not been determined. Clinical correlation is essential. Serum or plasma urea nitroge n measurement (mass/volume)on 04-06-2022 Urea nitrogen [Mass/Vol] 14 mg/dL 7-18 [facility] Work Phone: Thin prep Papanicolaou smear with manual screeningon 04-06-2022 Thin prep Papanicolaou smear with manual screening 7 5-15 [facility] Work Phone: Absolute lymphocyte counton 03-11-2022 Lymphocytes Auto (Unsp spec) [#/Vol] 1.69 10*3/uL 0.83-4.51 [facility] Work Phone: Basophil percentageon 2021 Basophils/100 WBC (Bld) 1.1 % 0-1 [facility] Work Phone: [phone] Bilirubin [Mass/Vol] 1.80 mg/dL 0.20-1.[address] [facility] Work Phone: Comment on above: For patients on eltr ombopag therapy, use of Dimension [place] TBIL is not recommended. Chloride [Moles/Vol] 107 mmol/L 98-[address] [facility] Work Phone: [phone] Cholesterol [Mass/Vol] 131 mg/dL <200 [facility] Work Phone: [phone] Comment on above: <200 mg/dL Desirable 200-240 mg/dL Borderline >240 mg/dL High Risk Eosinophils/100 WBC (Bld) 3.7 % 0-5 [facility] Work Phone: [phone] Glucose [Mass/Vol] 96 mg/dL 74-106 [facility] Work Phone: [phone] Neutrophils (Bld) [#/Vol] 3.4 10*3/uL 2.0-7.7 [facility] Work Phone: [phone] Neutrophils/100 WBC (Bld) 54.8 % 47-70 [facility] Work Phone: [phone] Potassium [Moles/Vol] 4.0 mmol/L 3.5-5.1 [facility] Work Phone: [phone] Protein [Mass/Vol] 6.3 g/dL 6.4-8.2 [facility] Work Phone: [phone] Sodium [Moles/Vol] 143 mmol/L 136-145 [facility] Work Phone: [phone] Triglyceride [Mass/Vol] 111 mg/dL <199 [facility] Work Phone: [phone] Comment on above: The drugs N-Acetylcy steine and Metamizole may falsely depress this assay.Serum Triglycerides Reference Interval Normal <150 mg/dL Borderline high 150 - 199 mg/dL High 200 - 499 mg/dL Very High > or = 500 mg/dL WBC (Bld) [#/Vol] 6.2 10*3/uL 4.4-11.0 [facility] Work Phone: Blood erythrocytes count (nu mber/volume)on 03-11-2022 RBC (Bld) [#/Vol] 4.99 10*6/uL 4.2-5.4 [facility] Work Phone: Blood hemoglobin measurement (mass/volume)on 03-11-2022 Hemoglobin (Bld) [Mass/Vol] 13.7 g/dL 12.0-15.0 [facility] Work Phone: Blood lymphocytes/100 leukoc yteson 03-11-2022 Lymphocytes/100 WBC (Bld) 27.5 % 19-41 [facility] Work Phone: Blood monocytes/100 leukocyt eson 03-11-2022 Monocytes/100 WBC (Bld) 12.7 % 0-10 [facility] Work Phone: Blood platelet mean volumeon 03-11-2022 Platelet mean volume (Bld) [Entitic vol] 9.7 fL 6.2-12.0 [facility] Work Phone: Determination of erythrocyte mean corpuscular volume (MCV)on 03-11-2022 MCV (RBC) [Entitic vol] 91.0 fL 81-99 [facility] Work Phone: Hematocrit Auto (Bld) [Volum e fraction]on 03-11-2022 Hematocrit (Bld) [Volume fraction] 45.4 % 37-47 [facility] Work Phone: Laboratory - Chemistry and C hemistry - challengeon 03-11-2022 ALP [Catalytic activity/Vol] 73 U/L 45-117 [facility] Work Phone: ALT [Catalytic activity/Vol] 22 U/L 13-56 [facility] Work Phone: [phone] CO2 [Moles/Vol] 32.0 mmol/L 21.0-32.0 [facility] Work Phone: Globulin (S) [Mass/Vol] 3.2 g/dL 2.2-4.2 [facility] Work Phone: Magnesium [Mass/Vol] 2.3 mg/dL 1.6-2.[address] [facility] Work Phone: Urea nitrogen/Creatinine [Mass ratio] 13.9 mg/mg 10-20 [facility] Work Phone: Laboratory - Hematology and Cell countson 03-11-2022 Erythrocyte distribution width (RBC) [Entitic vol] 45.4 fL 35.1-43.9 [facility] Work Phone: Erythrocyte distribution width (RBC) [Ratio] 13.5 % 11.6-14.6 [facility] Work Phone: Immature granulocytes/100 WBC (Bld) 0.200 % 0.0-0.9 [facility] Work Phone: Comment on above: IG% - Immature Granu locytes (promyelocytes, myelocytes and metamyelocytes) > 1% indicates that a LEFT SHIFT is Present. MCH (RBC) [Entitic mass] 27.5 pg 27.0-32.0 [facility] Work Phone: Nucleated RBC/100 WBC (Bld) [Ratio] 0 % 0-5 [facility] Work Phone: MCHC Auto (RBC) [Mass/Vol]on 03-11-2022 MCHC (RBC) [Mass/Vol] 30.2 g/dL 32-36 [facility] Work Phone: No Panel Informationon 03-11 Estimated GFR (MDRD) Amer 100 mL/min >60 [facility] Work Phone: Comment on above: GFR Calc Estimated GFR (MDRD) Non-Af Amer 83 mL/min >60 [facility] Work Phone: Comment on above: Non- GFR Calc Platelets bldon 03-11-2022 Platelets (Bld) [#/Vol] 267 10*3/uL 150-450 [facility] Work Phone: Serum or plasma albumin slava urement (mass/volume)on 03-11-2022 Albumin [Mass/Vol] 3.1 g/dL 3.2-5.0 [facility] Work Phone: Serum or plasma albumin/glob ulin mass ratioon 03-11-2022 Albumin/Globulin [Mass ratio] 1.0 {ratio} 0.9-2.4 [facility] Work Phone: Serum or plasma calcium slava urement (mass/volume)on 03-11-2022 Calcium [Mass/Vol] 8.7 mg/dL 8.5-10.1 [facility] Work Phone: Serum or plasma cholesterol in HDL measurement (mass/volume)on 03-11-2022 Cholesterol in HDL [Mass/Vol] 52 mg/dL >40 [facility] Work Phone: Comment on above: The drugs N-Acetylcy steine and Metamizole may falsely depress this assay. Reference Range HDL <40 mg/dL Low HDL Cholesterol HDL >or= 60 mg/dL High HDL Cholesterol Serum or plasma cholesterol in VLDL measurement (mass/volume)on 03-11-2022 Cholesterol in VLDL [Mass/Vol] 22 mg/dL 5-40 [facility] Work Phone: Serum or plasma creatinine m easurement (mass/volume)on 03-11-2022 Creatinine [Mass/Vol] 0.72 mg/dL 0.55-1.02 [facility] Work Phone: Comment on above: The validity of the calculated GFR & GFRAA in patients over 70 years has not been determined. Clinical correlation is essential. Serum or plasma low density lipoprotein (LDL) cholesterol measurement (mass/volume)on 03-11-2022 Cholesterol in LDL [Mass/Vol] 57 mg/dL 0-130 [facility] Work Phone: Serum or plasma urea nitroge n measurement (mass/volume)on 03-11-2022 Urea nitrogen [Mass/Vol] 10 mg/dL 7-18 [facility] Work Phone: Thin prep Papanicolaou smear with manual screeningon 03-11-2022 Thin prep Papanicolaou smear with manual screening 22 U/L 15-37 [facility] Work Phone: Thin prep Papanicolaou smear with manual screening 4 5-15 [facility] Work Phone: Absolute lymphocyte counton 11-19-2021 Lymphocytes Auto (Unsp spec) [#/Vol] 1.92 10*3/uL 0.83-4.51 [facility] Work Phone: Basophil percentageon 2021 Basophils/100 WBC (Bld) 0.5 % 0-1 [facility] Work Phone: Bilirubin [Mass/Vol] 2.00 mg/dL 0.20-1.[address] [facility] Work Phone: Comment on above: For patients on eltr ombopag therapy, use of Dimension [place] TBIL is not recommended. Chloride [Moles/Vol] 105 mmol/L 98-[address] [facility] Work Phone: Cholesterol [Mass/Vol] 147 mg/dL <200 [facility] Work Phone: Comment on above: <200 mg/dL Desirable 200-240 mg/dL Borderline >240 mg/dL High Risk Eosinophils/100 WBC (Bld) 2.5 % 0-5 [facility] Work Phone: Glucose [Mass/Vol] 89 mg/dL 74-106 [facility] Work Phone: Neutrophils (Bld) [#/Vol] 4.6 10*3/uL 2.0-7.7 [facility] Work Phone: Neutrophils/100 WBC (Bld) 61.2 % 47-70 [facility] Work Phone: Potassium [Moles/Vol] 3.4 mmol/L 3.5-5.1 [facility] Work Phone: Protein [Mass/Vol] 7.0 g/dL 6.4-8.2 [facility] Work Phone: Sodium [Moles/Vol] 140 mmol/L 136-145 [facility] Work Phone: Triglyceride [Mass/Vol] 108 mg/dL <199 [facility] Work Phone: Comment on above: The drugs N-Acetylcy steine and Metamizole may falsely depress this assay.Serum Triglycerides Reference Interval Normal <150 mg/dL Borderline high 150 - 199 mg/dL High 200 - 499 mg/dL Very High > or = 500 mg/dL WBC (Bld) [#/Vol] 7.5 10*3/uL 4.4-11.0 [facility] Work Phone: Blood erythrocytes count (nu mber/volume)on 11-19-2021 RBC (Bld) [#/Vol] 5.13 10*6/uL 4.2-5.4 [facility] Work Phone: Blood hemoglobin measurement (mass/volume)on 11-19-2021 Hemoglobin (Bld) [Mass/Vol] 14.4 g/dL 12.0-15.0 [facility] Work Phone: Blood lymphocytes/100 leukoc yteson 11-19-2021 Lymphocytes/100 WBC (Bld) 25.5 % 19-41 [facility] Work Phone: Blood monocytes/100 leukocyt eson 11-19-2021 Monocytes/100 WBC (Bld) 10.0 % 0-10 [facility] Work Phone: Blood platelet mean volumeon 11-19-2021 Platelet mean volume (Bld) [Entitic vol] 9.6 fL 6.2-12.0 [facility] Work Phone: Determination of erythrocyte mean corpuscular volume (MCV)on 11-19-2021 MCV (RBC) [Entitic vol] 88.9 fL 81-99 [facility] Work Phone: Hematocrit Auto (Bld) [Volum e fraction]on 11-19-2021 Hematocrit (Bld) [Volume fraction] 45.6 % 37-47 [facility] Work Phone: Laboratory - Chemistry and C hemistry - challengeon 11-19-2021 ALP [Catalytic activity/Vol] 83 U/L 45-117 [facility] Work Phone: ALT [Catalytic activity/Vol] 22 U/L 13-56 [facility] Work Phone: CO2 [Moles/Vol] 29.0 mmol/L 21.0-32.0 [facility] Work Phone: Globulin (S) [Mass/Vol] 3.5 g/dL 2.2-4.2 [facility] Work Phone: Magnesium [Mass/Vol] 2.3 mg/dL 1.6-2.[address] [facility] Work Phone: Urea nitrogen/Creatinine [Mass ratio] 15.4 mg/mg 10-20 [facility] Work Phone: Laboratory - Hematology and Cell countson 11-19-2021 Erythrocyte distribution width (RBC) [Entitic vol] 43.1 fL 35.1-43.9 [facility] Work Phone: Erythrocyte distribution width (RBC) [Ratio] 13.2 % 11.6-14.6 [facility] Work Phone: Immature granulocytes/100 WBC (Bld) 0.300 % 0.0-0.9 [facility] Work Phone: Comment on above: IG% - Immature Granu locytes (promyelocytes, myelocytes and metamyelocytes) > 1% indicates that a LEFT SHIFT is Present. MCH (RBC) [Entitic mass] 28.1 pg 27.0-32.0 [facility] Work Phone: Nucleated RBC/100 WBC (Bld) [Ratio] 0 % 0-5 [facility] Work Phone: MCHC Auto (RBC) [Mass/Vol]on 11-19-2021 MCHC (RBC) [Mass/Vol] 31.6 g/dL 32-36 [facility] Work Phone: No Panel Informationon 11-19 Estimated GFR (MDRD) Amer 102 mL/min >60 [facility] Work Phone: Comment on above: GFR Calc Estimated GFR (MDRD) Non-Af Amer 84 mL/min >60 [facility] Work Phone: Comment on above: Non- GFR Calc Vitamin D 25-Hydroxy 51.6 ng/mL [facility] Work Phone: Comment on above: Vitamin D 25(OH) Sta tus Range Deficiency <20 ng/mL (50nmol/L) Insufficiency 20 - 30 ng/mL (50 - 75 nmol/L) Sufficiency 30 - 100 ng/mL (75 - 250 nmol/L) Toxicity >100 ng/mL (>250 nmol/L) Platelets bldon 11-19-2021 Platelets (Bld) [#/Vol] 277 10*3/uL 150-450 [facility] Work Phone: Serum or plasma albumin slava urement (mass/volume)on 11-19-2021 Albumin [Mass/Vol] 3.5 g/dL 3.2-5.0 [facility] Work Phone: Serum or plasma albumin/glob ulin mass ratioon 11-19-2021 Albumin/Globulin [Mass ratio] 1.0 {ratio} 0.9-2.4 [facility] Work Phone: Serum or plasma calcium slava urement (mass/volume)on 11-19-2021 Calcium [Mass/Vol] 9.1 mg/dL 8.5-10.1 [facility] Work Phone: Serum or plasma cholesterol in HDL measurement (mass/volume)on 11-19-2021 Cholesterol in HDL [Mass/Vol] 63 mg/dL >40 [facility] Work Phone: Comment on above: The drugs N-Acetylcy steine and Metamizole may falsely depress this assay. Reference Range HDL <40 mg/dL Low HDL Cholesterol HDL >or= 60 mg/dL High HDL Cholesterol Serum or plasma cholesterol in VLDL measurement (mass/volume)on 11-19-2021 Cholesterol in VLDL [Mass/Vol] 22 mg/dL 5-40 [facility] Work Phone: Serum or plasma creatinine m easurement (mass/volume)on 11-19-2021 Creatinine [Mass/Vol] 0.71 mg/dL 0.55-1.02 [facility] Work Phone: Comment on above: The validity of the calculated GFR & GFRAA in patients over 70 years has not been determined. Clinical correlation is essential. Serum or plasma low density lipoprotein (LDL) cholesterol measurement (mass/volume)on 11-19-2021 Cholesterol in LDL [Mass/Vol] 62 mg/dL 0-130 [facility] Work Phone: Serum or plasma urea nitroge n measurement (mass/volume)on 11-19-2021 Urea nitrogen [Mass/Vol] 11 mg/dL 7-18 [facility] Work Phone: Thin prep Papanicolaou smear with manual screeningon 11-19-2021 Thin prep Papanicolaou smear with manual screening 27 U/L 15-37 [facility] Work Phone: Thin prep Papanicolaou smear with manual screening 6 5-15 [facility] Work Phone: Culture, urineon 08-17-2021 Bacteria identified Cx Nom (U) Enterococcus faecalis [facility] Work Phone: CBC (NO DIFF)on 11-24-2019 CBC (NO DIFF) Normal [facility] Comment on above: Result Comment: CBC( WITHOUT DIFFERENTIAL) Performed By: #### 2 [id number] #### [facility],[address] [place] [address]89 Erythrocyte distribution width (RBC) [Ratio] 13.9 % Normal 12.0 - 15.6 [facility] Comment on above: Performed By: #### 2 69726 #### [facility],[address] [place] [address] 69360 Hematocrit (Bld) [Volume fraction] 44.1 % Normal 34.0 - 46.0 [facility] Comment on above: Performed By: #### 2 [id number] #### [facility],[address] [place] [address] 07589 Hemoglobin (Bld) [Mass/Vol] 15.0 g/dL Normal 12.0 - 16.0 [facility] Comment on above: Performed By: #### 2 [id number] #### [facility],[address] [place], [place] [id number] MCH (RBC) [Entitic mass] 30 pg Normal 27 - 33 [facility] Comment on above: Performed By: #### 2 32851 #### [facility],[address] [place] [address] 80225 MCHC (RBC) [Mass/Vol] 34 X10 3 Normal 32 - 36 [facility] Comment on above: Performed By: #### 2 [id number] #### [facility],[address] [place] [address] 69562 MCV (RBC) [Entitic vol] 87 fL Normal 80 - 99 [facility] Comment on above: Performed By: #### 2 [id number] #### [facility],[address] [place] [address] 90462 Platelet mean volume (Bld) [Entitic vol] 7.5 fL Normal 6.6 - 10.5 [facility] Comment on above: Performed By: #### 2 74493 #### [facility],[address] [place] [address] 95552 Platelets (Bld) [#/Vol] 263 x10EE3/UL Normal 150 - 450 [facility] Comment on above: Performed By: #### 2 76433 #### [facility],[address] [place] [address] 06981 RBC (Bld) [#/Vol] 5.09 x 10EE6/UL Normal 4.10 - 5.30 [facility] Comment on above: Performed By: #### 2 39519 #### [facility],[address] [place] [address] 06925 WBC (Bld) [#/Vol] 7.5 x 10EE3/UL Normal 4.5 - 10.8 [facility] Comment on above: Performed By: #### 2 [id number] #### [facility],[address] [place] [address] 39601 CMP with eGFRon 11-24-2019 Age - Reported 79 years Normal [facility] Comment on above: Performed By: #### 2 99524 #### [facility],[address] [place] [address] 10032 Albumin [Mass/Vol] 4.3 g/dL Normal 3.4 - 4.8 [facility] Comment on above: Performed By: #### 2 29637 #### [facility],[address] [place] [address] 80309 Albumin/Globulin [Mass ratio] 1.5 {ratio} Normal 0.9 - 1.6 [facility] Comment on above: Performed By: #### 2 24372 #### [facility],[address] [place] [address] 37838 ALK PHOS 56 U/L Normal 38 - 126 [facility] Comment on above: Performed By: #### 2 65573 #### [facility],[address] [place] [address] 46089 ALT/SGPT 14 U/L Normal 8 - 35 [facility] Comment on above: Performed By: #### 2 40846 #### [facility],[address] [place] [address] 36932 Anion gap [Moles/Vol] 11 mmol/L Normal 10 - 20 [facility] Comment on above: Performed By: #### 2 59975 #### [facility],[address] [place] [address] 58326 AST/SGOT 22 U/L Normal 13 - 39 [facility] Comment on above: Performed By: #### 2 78222 #### [facility],[address] [place] [address] 40200 B/C RATIO 18 ratio Normal 0 - 30 [facility] Comment on above: Performed By: #### 2 51989 #### [facility],[address] [place] [address] 84594 Bilirubin [Mass/Vol] 1.8 mg/dL High 0.0 - 1.5 [facility] Comment on above: Performed By: #### 2 [id number] #### [facility],[address] [place] [address] 54016 Calcium [Mass/Vol] 9.6 mg/dL Normal 8.6 - 10.2 [facility] Comment on above: Performed By: #### 2 78003 #### [facility],[address] [place] [address] 69865 Chloride [Moles/Vol] 100 mmol/L Normal 98 - 107 [facility] Comment on above: Performed By: #### 2 [id number] #### [facility],[address] [place] [address] 34899 CO2 [Moles/Vol] 28.8 mmol/L Normal 21.0 - 31.0 [facility] Comment on above: Performed By: #### 2 36852 #### [facility],[address] [place] [address] 43721 Creatinine [Mass/Vol] 0.6 mg/dL Normal 0.6 - 1.2 [facility] Comment on above: Performed By: #### 2 24807 #### [address] [address] GFR/1.73 sq M predicted among non-blacks MDRD (S/P/Bld) [Vol rate/Area] mL/min/{1.73_m2} Normal 60 - 999 [facility] Comment on above: Result Comment: ACCO RDING TO THE NATIONAL KIDNEY DISEASE EDUCATION PROGRAM(NKDE), A NORMAL eGFR IS A VALUE GREATER THAN OR EQUAL TO 60 ML/MIN/1.73 SQ METERS. CHRONIC KIDNEY DISEASE: <60mL/MIN/1.73 SQ METERS KIDNEY FAILURE: <15mL/MIN/1.73 SQ METERS THIS TEST SHOULD ONLY BE USED FOR PATIENTS 18 YEARS OF AGE AND OLDER. Performed By: #### 2 93733 #### [address] [address] GFR/1.73 sq M predicted among non-blacks MDRD (S/P/Bld) [Vol rate/Area] Normal [facility] Comment on above: Result Comment: COMP REHENSIVE METABOLIC PANEL Performed By: #### 2 04253 #### [address] [address] Globulin (S) [Mass/Vol] 2.9 g/dL Normal 1.5 - 3.8 [facility] Comment on above: Performed By: #### 2 04352 #### [address] [address] Glucose [Mass/Vol] 90 mg/dL Normal 74 - 106 [facility] Comment on above: Performed By: #### 2 41646 #### [address] [address] Potassium [Moles/Vol] 3.8 mmol/L Normal 3.5 - 5.1 [facility] Comment on above: Performed By: #### 2 91141 #### [place] [id number] Protein [Mass/Vol] 7.2 g/dL Normal 6.4 - 8.3 [facility] Comment on above: Performed By: #### 2 46276 #### [facility],[address] [place] [address] 26649 Sodium [Moles/Vol] 136 mmol/L Normal 136 - 145 [facility] Comment on above: Performed By: #### 2 50065 #### [facility],[address] [place] [address] 51826 Urea nitrogen [Mass/Vol] 11 mg/dL Normal 6 - 20 [facility] Comment on above: Performed By: #### 2 66468 #### [facility],[address] [place] [address] 39317 Culture, urine Bacteria identified Cx Nom (U) Enterococcus faecalis [facility] Work Phone: Vital Signs Date Time Vital Sign Value Performing Clinician Facility 01-31-2025 14:08-0400 Body temperature 98.49 [degF] Alicia Nava MD Work Phone: [facility] 01-31-2025 14:08-0400 Diastolic blood pressure 71 mm[Hg] Alicia Nava MD Work Phone: [facility] 01-31-2025 14:08-0400 Heart rate 85 /min Alicia Nava MD Work Phone: [facility] 01-31-2025 14:08-0400 Respiratory rate 18 /min Alicia Nava MD Work Phone: [facility] 01-31-2025 14:08-0400 SaO2% (BldA) [Mass fraction] 97 % Alicia Nava MD Work Phone: [facility] 01-31-2025 14:08-0400 Systolic blood pressure 110 mm[Hg] Alicia Nava MD Work Phone: [facility] 01-31-2025 04:47-0400 Body mass index (BMI) [Ratio] 20.05 kg/m2 Alicia Nava MD Work Phone: [facility] 01-31-2025 04:47-0400 Body weight 61.6 kg Alicia Nava MD Work Phone: [facility] 01-25-2025 18:06-0400 Heart rate 82 /min Alicia Nava MD Work Phone: [facility] 01-25-2025 12:05-0400 Body height 175.3 cm Alicia Nava MD Work Phone: [facility] 01-25-2025 10:43-0400 Diastolic blood pressure 74 mm[Hg] Dr. Karen Lang MD Work Phone: [facility] 01-25-2025 10:43-0400 Heart rate 84 /min Dr. Karen Lang MD Work Phone: [facility] 01-25-2025 10:43-0400 Respiratory rate 15 /min Dr. Karen Lang MD Work Phone: [facility] 01-25-2025 10:43-0400 SaO2% (BldA) [Mass fraction] 96 % Dr. Karen Lang MD Work Phone: [facility] 01-25-2025 10:43-0400 Systolic blood pressure 110 mm[Hg] Dr. Karen Lang MD Work Phone: [facility] 01-25-2025 09:43-0400 Body temperature 98.4 [degF] Dr. Karen Lang MD Work Phone: [facility] 01-24-2025 21:15-0400 Body height 172.[address] Karen Lang MD Work Phone: [facility] 01-24-2025 21:15-0400 Body mass index (BMI) [Ratio] 19.8 kg/m2 Dr. Karen Lang MD Work Phone: [facility] 01-24-2025 21:15-0400 Body weight 59.[address] Karen Lang MD Work Phone: [facility] 06-25-2023 14:01-0500 Body mass index (BMI) [Ratio] 21 kg/m2 [facility] 06-25-2023 14:01-0500 Body temperature 96.7 [degF] [facility] 06-25-2023 14:01-0500 Diastolic blood pressure 75 mm[Hg] [facility] 06-25-2023 14:01-0500 Heart rate 83 /min [facility] 06-25-2023 14:01-0500 Respiratory rate 16 /min [facility] 06-25-2023 14:01-0500 Systolic blood pressure 125 mm[Hg] [facility] 06-11-2023 13:11-0500 Body mass index (BMI) [Ratio] 21 kg/m2 [facility] 06-11-2023 13:11-0500 Diastolic blood pressure 69 mm[Hg] [facility] 06-11-2023 13:11-0500 Heart rate 83 /min [facility] 06-11-2023 13:11-0500 Respiratory rate 18 /min [facility] 06-11-2023 13:11-0500 Systolic blood pressure 123 mm[Hg] [facility] 06-09-2023 00:26-0500 Body temperature 98.7 [degF] [facility] 06-09-2023 00:26-0500 Body weight 62.77 kg [facility] 06-04-2023 13:12-0500 Body mass index (BMI) [Ratio] 21 kg/m2 [facility] 06-04-2023 13:12-0500 Body temperature 98.7 [degF] [facility] 06-04-2023 13:12-0500 Diastolic blood pressure 67 mm[Hg] [facility] 06-04-2023 13:12-0500 Heart rate 89 /min [facility] 06-04-2023 13:12-0500 Respiratory rate 20 /min [facility] 06-04-2023 13:12-0500 Systolic blood pressure 116 mm[Hg] [facility] 05-28-2023 13:02-0500 Body mass index (BMI) [Ratio] 21 kg/m2 [facility] 05-28-2023 13:02-0500 Diastolic blood pressure 88 mm[Hg] [facility] 05-28-2023 13:02-0500 Heart rate 90 /min [facility] 05-28-2023 13:02-0500 Respiratory rate 16 /min [facility] 05-28-2023 13:02-0500 Systolic blood pressure 131 mm[Hg] [facility] 05-21-2023 13:120500 Body height 172.72 cm [facility] 05-21-2023 13:120500 Body temperature 96.8 [degF] [facility] 05-21-2023 13:120500 Body weight 62.77 kg [facility] Encounters Encounter Date Encounter Type Care Provider Facility Start: 04-06-2025 End: 04-06-2025 Telephone encounter Asmita Allen RN [facility] Start: 04-04-2025 ambulatory [facility] Facility:[facility] Start: 03-30-2025 ambulatory [facility] Facility:[facility] Start: 02-25-2025 End: 02-25-2025 Letter encounter Gi Provider [facility] Start: 02-23-2025 End: 02-23-2025 Refill Isauro Page MD Work Phone: [facility] Comment on above: Refill Start: 02-23-2025 ambulatory ISAURO PAGE Facilit y:[facility] Start: 02-16-2025 End: 02-16-2025 ambulatory Dianna Gua Facility:[facility] Start: 02-14-2025 End: 02-14-2025 Admission to same day surgery center Isauro Page MD Work Phone: [facility] Start: 02-09-2025 End: 02-09-2025 Admission to same day surgery center Isauro Page MD Work Phone: [facility] Start: 02-09-2025 ambulatory Dianna Gudla OLS Facili ty:[facility] Start: 02-02-2025 ambulatory Dianna Gudla Facility:[facility] Start: 02-01-2025 End: 02-01-2025 Telephone encounter Anselmo Whittaker MD Work Phone: [facility] Start: 01-28-2025 ambulatory NORA HAYS Facility:[facility] Start: 01-27-2025 ambulatory UNKNOWN PROVIDER Facili ty:[facility] Start: 01-25-2025 End: 01-25-2025 ambulatory UNKNOWN PROVIDER Facility:[facility] Start: 01-25-2025 End: 01-25-2025 Telephone encounter Keyon Fallon DO Work Phone: [facility] Start: 01-25-2025 End: 01-31-2025 Evaluation and management of inpatient Alicia Nava MD Work Phone: [facility] Comment on above: Rectal bleeding [...] and manag ement of inpatient UNKNOWN PROVIDER Facility:[facility] Start: 01-24-2025 End: 01-25-2025 Emergency department patient visit Dr. Karen Lang MD Work Phone: -Emergency Department Work Phone: Start: 11-08-2024 End: 11-08-[address] Karen Lang MD Work Phone: [facility] Work Phone: Start: 11-08-2024 End: 11-08-[address] Dianna Guido MD -[facility] Work Phone: Start: 11-08-2024 End: 11-08-2024 ambulatory Karenyves Trejotti Facility:[facility] Start: 10-04-2024 ambulatory Dianna Eddy ty:[facility] Start: 10-04-[address] Dianna Guido MD -[facility] Work Phone: Start: 05-31-2024 End: 05-31-2024 [facility] Start: 06-25-2023 End: 07-09-2023 ambulatory [facility] Work Phone: Start: 06-25-2023 End: 07-09-2023 Discharged Rec[facility]ring [facility] Work Phone: Start: 06-11-2023 Registered Recurring [facility] Work Phone: Start: 06-04-2023 End: 06-08-2023 ambulatory [facility] Work Phone: Start: 06-04-2023 End: 06-08-2023 Discharged [facility]ring [facility] Work Phone: Start: 05-28-2023 Registered Rec[facility]ring [facility] Work Phone: Start: 05-19-2023 End: 05-19-2023 ambulatory [facility] Work Phone: Start: 05-19-2023 End: 05-19-2023 Departed Referred [facility] Work Phone: Start: 05-16-2023 End: 05-16-2023 ambulatory [facility] Work Phone: Start: 05-16-2023 End: 05-16-2023 Departed Referred [facility] Start: 05-16-2023 Registered Referred [facility] Start: 05-14-2023 End: 05-14-2023 ambulatory [facility] Work Phone: Start: 05-14-2023 End: 05-14-2023 Departed Referred [facility] Work Phone: Start: 04-28-2023 End: 04-28-2023 ambulatory [facility] Work Phone: Start: 04-28-2023 End: 04-28-2023 Departed Referred [facility] Work Phone: Start: 03-26-2023 End: 03-26-2023 ambulatory [facility] Work Phone: Start: 03-26-2023 End: 03-26-2023 Departed Referred [facility] Work Phone: Start: 02-27-2023 End: 02-27-2023 Departed Referred [facility] Work Phone: Start: 02-27-2023 Registered Referred [facility] Work Phone: Start: 01-03-2023 End: 01-03-2023 ambulatory [facility] Work Phone: Start: 01-03-2023 End: 01-03-2023 Departed Referred [facility] Work Phone: Start: 12-24-2022 End: 12-24-2022 Departed Referred [facility] Work Phone: Start: 11-05-2022 Registered Referred [facility] Work Phone: Start: 04-06-2022 End: 04-06-2022 ambulatory [facility] Work Phone: Start: 04-06-2022 End: 04-06-2022 Departed Referred [facility] Start: 03-11-2022 End: 03-11-2022 Departed Referred [facility] Start: 11-19-2021 End: 11-19-2021 Departed Referred [facility] Start: 08-17-2021 End: 08-17-2021 Departed Referred [facility] Start: 09-05-2020 End: 09-05-2020 Patient encounter procedure [facility] Marcelino [facility] Start: 08-11-2020 End: 08-11-2020 Patient encounter procedure MAMTA Benson [facility] Start: 11-24-2019 End: 11-24-2019 Patient encounter procedure MIKE MONTIEL [facility] Start: 11-05-2019 Encounter for genera l adult medical examination without abnormal findings [facility] Start: 11-05-2019 Patient encounter procedure [facility] Procedures Date Procedure Procedure Detail Performing Clinician Start: 05-23-2025 Colonoscopy Asmita wade RN Start: 04-18-2025 Colonoscopy Isauro Lorenza trevino MD Work Phone: Start: 02-24-2025 Colonoscopy Alicia de la vega [...] Start: 01-25-2025 Blood count complete automated Ketty Tonyajamie DO Work Phone: Start: 01-25-2025 Ct angio [...] Treatment Date Care Activity Detail Author Start: 05-23-2035 Screening for malignant neoplasm [facility] colon [facility] Start: 04-18-2035 Screening for malignant neoplasm of colon [facility] Start: 02-24-2035 Screening for malignant neoplasm of colon [facility] Start: 01-24-2026 Screening for malignant neoplasm of colon [facility] Start: 05-23-2025 End: 05-23-2025 Admission to same day surgery center 05/23/2025 9:00 AM EST - 05/23/2025 10:30 AM EST Surgery [facility] [address] [place] [id number] Isauro Page MD [address] [place] [address] [place] [address] COLONOSCOPY + FTR 90 [facility] Suite Comment on above: COLONOSCOPY + FTR 90 Start: 05-23-2025 End: 05-23-2025 Colonoscopy flx dx w/collj spec when pfrmd COLONOSCOPY Adenomatous polyp of ascending colon 05/23/2025 9:00 AM EST [facility] Start: 05-23-2025 Subsequent hospital visit by physician 05/23/2025 9:00 AM EST Hospital Encounter [facility] [address] [place] [address] Isauro Page MD [address] [place] [address] [place] [address] [facility] Start: 05-04-2025 End: 02-01-2026 RFA Hepatic artery Views W contrast IA XA HEPATIC ARTERY COMMON (KATYA) Imaging Routine Aneurysm of hepatic artery (HCC) Expected: 05/04/2025, Expires: 02/01/2026 [facility] Work Phone: Comment on above: Expected: 05/04/2025, Expires: Start: 04-18-2025 End: 04-18-2025 Admission to same day surgery center 04/18/2025 9:00 AM EST - 04/18/2025 10:30 AM EST Surgery [facility] [address] [place] [id number] Isauro Page MD [address] [place] [address] [place] [address] COLONOSCOPY + FTR 90 [facility] Comment on above: COLONOSCOPY + FTR 90 Start: 04-18-2025 End: 04-18-2025 Colonoscopy flx dx w/collj spec when pfrmd COLONOSCOPY Adenomatous polyp of ascending colon 04/18/2025 9:00 AM EST [facility] Start: 04-18-2025 Subsequent hospital visit by physician 04/18/2025 9:00 AM EST Hospital Encounter [facility] [address] [place] [address] Isauro Page MD [address] [place] [address] [place] [address] [facility] Start: 03-09-2025 Influenza vaccination Influenza Vaccine (#1) [facility] Start: 02-24-2025 End: 02-24-2025 Admission to same day surgery center [facility] Comment on above: COLONOSCOPY Start: 02-24-2025 End: 02-24-2025 Colonoscopy flx dx w/collj spec when pfrmd [facility] Start: 02-24-2025 Subsequent hospital visit by physician [facility] Start: 02-07-2025 COVID-19 Vaccine ( season) COVID-19 Vaccine ( season) [facility] Start: 02-07-2025 COVID-19 Vaccine ( season) COVID-19 Vaccine ( season) [facility] Start: 02-07-2025 Influenza vaccination Influenza Vaccine (#1) [facility] Start: 01-25-2025 Administration of blood product [facility] Start: 01-25-2025 [facility] Start: 01-24-2025 [facility] Start: 01-07-2025 Welcome to Medicare Visit (G0402) Welcome to Medicare Visit (G0402) [facility] Start: 02-08-2024 COVID-19 Vaccine ( season) COVID-19 Vaccine ( season) [facility] Start: 05-22-2023 Microbial culture, routine Wound Culture [facility] Start: 05-22-2023 [facility] Start: 2017 RSV vaccine (adult) (1 - 1-dose 75+ series) RSV vaccine (adult) (1 - 1-dose 75+ series) [facility] Start: 2007 Screening for osteoporosis Bone Densitometry [facility] Start: 2002 Hepatitis B (HBV) Vaccine (optional start 60+ years) Hepatitis B (HBV) Vaccine (optional start 60+ years) [facility] Start: 1992 Pneumococcal vaccination Pneumococcal Vaccine(s) (50+ yrs) (1 of 1 - PCV) [facility] Start: 1992 Shingles (RZV) Vaccine (1 of 2) Shingles (RZV) Vaccine (1 of 2) [facility] Start: 1987 Screening for malignant neoplasm of colon Cologuard (Stool DNA) [facility] Start: 1961 Hepatitis A (HAV) Vaccine (optional start 19+ years) Hepatitis A (HAV) Vaccine (optional start 19+ years) [facility] Start: 1960 Tdap Booster Tdap Booster [facility] Comment on above: Release Upon Ordering for 1 Occurrences starting 01/27/2025, 1 completed CBC W Auto Different ial panel - Blood COMPLETE BLOOD COUNT W/DIFF Lab Routine Daily until discontinued starting 01/26/2025, 6 completed [employer] Work Phone: Comment on above: Daily until discontinued starting 2024, 6 completed Colonoscopy flx dx w/collj spec when pfrmd COLONOSCOPY Rectal bleeding [facility] Colonoscopy flx dx w/collj spec when pfrmd COLONOSCOPY Adenomatous polyp of ascending colon [facility] Colonoscopy flx dx w/collj spec when pfrmd COLONOSCOPY Rectal bleeding Adenomatous polyp of ascending colon [facility] Colonoscopy flx dx w/collj spec when pfrmd COLONOSCOPY Rectal bleeding [facility] Fungus identified in Unspecified specimen by Culture [facility] End: 01-25-2025 Guidance for embolization of Artery [employer] Work Phone: Comment on above: Today for 1 Occurrences starting 025 until 01/25/2025 Lactic acid measurement [facility] Patient referral [facility] Work Phone: End: 01-28-2025 RFA Celiac artery Views W contrast [facility] Comment on above: Today for 1 Occurrences starting 025 until 01/28/2025 End: 01-28-2025 RFA Vessels Views W contrast [facility] Comment on above: Today for 1 Occurrences starting 025 until 01/28/2025 End: 01-27-2025 Surgical pathology procedure [employer] Work Phone: Comment on above: One time for 1 Occurrences starting 01/08 until 01/27/2025 Release Upon Orderin g for 1 Occurrences starting 01/27/2025 Payers Date Payer Category Payer Medicare (Managed Care) [facility] MEDICARE [id number] 2025 Unknown [id number] 2024 Medicaid HMO [facility] MEDICAID [id number] 2024 Medicaid [id number] 2024 Self-pay [id number] 2024 Unknown [id number] 1942 Unknown [id number] 2.16.840.1.959633.3.579.2. 651 1942 Unknown [id number] 2.16.840.1.350755.3.579.2. 651 1942 Unknown [id number] 2.16.840.1.600964.3.579.2. 651 1942 Unknown [id number] 2.16.840.1.406346.3.579.2. 651 1942 Unknown [id number] 2..840.1.124716.3.579.2. 651 1942 Unknown [id number] 2..840.1.849480.3.579.2. 732 1942 Unknown [id number] 2..840.1.930979.3.579.2. 732 1942 Unknown [id number] 2.840.1.597259.3.579.2. 73 1942 Unknown [id number] 2.840.1.714648.3.579.2. 732 1942 Unknown [id number] 2.840.1.692955.3.579.2. 732 1942 Unknown [id number] 2.0.1.427125.3.579.2. 73 Blue Cross Blue Shield [id number] Medicare [id number] Medicare [id number] Unknown [id number] Unknown [id number] Unknown [id number] .840.1.128034.3.579.2. 462 Unknown [id number] .840.1.924896.3.579.2. 462 Unknown [id number] 2.840.1.392873.3.579.2. 462 Unknown [id number] 2.840.1.212839.3.579.2. 462 Unknown [id number] 2.840.1.854541.3.579.2. 462 Unknown [id number] .840.1.659816.3.579.2. 462 Unknown [id number] 2..840.1.380190.3.579.2. 462 Unknown [id number] 2840.1.538254.3.579.2. 462 Unknown [id number] 2..840.1.631087.3.579.2. 462 Social History Date Type Detail Facility Start: 12-24-2019 End: 05-21-2023 Tobacco smoking status NHIS Unknown if ever smoked [facility] Start: 12-24-2019 None [facility] Start: 12-24-2019 Spouse/ Signif icant Other [facility] Start: 02-08-2020 Non-smoker [facility] Start: 1940 Sex Assigned At Female W [facility] Start: 05-21-2023 End: 01-24-2025 Tobacco smoking status NHIS Never smoked tobacco (finding) [facility] Start: 1940 Sex assigned at Not on file [facility] Start: 01-25-2025 Sex Female (finding) [facility] Start: 01-25-2025 Gender identity Not on file [facility] Start: 01-25-2025 History of Social function [facility] Has the [employer], [employer], or [employer] threatened to shut off services in your home in past 12Mo No [facility] Fear of Current or Ex-Partner Not on file [facility] (I/We) worried wheth er (my/our) food would run out before (I/we) got money to buy more. Never true [facility] Medical Equipment Procedure Code Equipment Code Equipment Origin al Text Equipment Identifier Dates Coil Embl 60cm . 02in 14mm Ea1 [id number] - [id number] Start: 01-28-2025 Coil Embl 30cm . 02in 6mm Ea1 [id number] - [id number] Start: 01-28-2025 Coil Embl 30cm . 02in 6mm Ea1 [id number] - [id number] Start: 01-28-2025 Coil Embl 20cm . 02in 6mm Araceli Ea1 [id number] - [id number] Start: 01-28-2025 Coil Embl 60cm . 02in 18mm Araceli Ea1 [id number] - [id number] Start: 01-28-2025 Coil Embl 60cm . 02in 12mm Ea1 [id number] - [id number] Start: 01-28-2025 Coil Embl 60cm . 02in 12mm Ea1 [id number] - [id number] Start: 01-28-2025 Coil Embl 30cm P od Pk J-Sft Ea1 [id number] - [id number] Start: 01-28-2025 Coil Embl 35cm . 02in 10mm Ea1 [id number] - [id number] Start: 01-28-2025 Coil Embl 40cm . 02in 8mm Ea1 [id number] - [id number] Start: 01-28-2025 Coil Embl 45cm P od Pk J-Sft Ea1 [id number] - [id number] Start: 01-28-2025 Coil Embl 25cm . 02in 8mm Ea1 [id number] - [id number] Start: 01-28-2025 Clinical Notes 05-21-2023 to [...] appointment in the Interventional Radiology Clinic call [phone] option 3. If you notice more rectal [...] Miralax if needed documented in this encounter [facility] 01-31-2025 Note DISCHARGE SUMMARY [address] [address] Ely Hurtado 84 year old female 1940 [...] to assisted living after PT/OT re-evaluation with [facility] in hemodynamically stable condition. TODO: [] Continue [...] Referral Type: Service Level Authorization Referral Location: [facility] PRE ADMISSION TESTING Number of Visits Requested: 1 Expiration Date: 01/26/26 PRE-ADMISSION TESTING CONSULT Referral Priority: Routine Referral Type: Service Level Authorization Referral Location: [facility] PRE ADMISSION TESTING Number of Visits Requested: 1 Expiration Date: 01/26/26 HOME CARE SERVICE REQUEST Referral Priority: Routine Referral Type: Home Health Referral Referral Location: [facility] Number of Visits Requested: 3 Expiration Date: 01/31/26 FOLLOW UP IN PRIM (more content not included)... [facility] 01-31-2025 Hospital course Narrative Images from the original note were not included. DISCHARGE SUMMARY [address] [address] Ely Hurtado 84 year old female 1940 [...] to assisted living after PT/OT re-evaluation with [facility] in hemodynamically stable condition. TODO: [] Continue [...] Referral Type: Service Level Authorization Referral Location: [facility] PRE ADMISSION TESTING Number of Visits Requested: 1 Expiration Date: 01/26/26 PRE-ADMISSION TESTING CONSULT Referral Priority: Routine Referral Type: Service Level Authorization Referral Location: [facility] PRE ADMISSION TESTING Number of Visits Requested: 1 Expiration Date: 01/26/26 HOME CARE SERVICE REQUEST Referral Priority: Routine Referral Type: Home Health Referral Referral Location: [facility] Number of Visits Requested: 3 Expiration Date: 01/31/26 FOLLOW UP IN PRIMARY CARE INTERVENTIONAL RAD CLINIC REFERRAL Referral Priority: Routine Referral Type: Radiology Referral Location: [facility] INTERVENTIONAL RAD Number of Visits Requested: [...] this patient's discharge. documented in this encounter [facility] 01-31-2025 Progress note Formatting of t his [...] from the medicare.gov compare site for HHC. [place] [employer] was provided to the patient/patient disability representative. CM to follow up with accepting agencies. CM to continue to follow. ADDENDUM: CM spoke with Debra Sarankatarina from [facility] and she states that the patient can receive therapy under Medicare part B from PT at her AL if she so wishes. CM will continue to follow additional discharge planning needs. ADDENDUM: CM spoke with Pt son and notified him that patient would be discharge back to her AL today. Son stated that he would be at to black pickler pt and transport her back to [facility] after 5pm. CM will continue to follow. Breanna Wilder MSN, RN Inpatient Environmental Protection Inspector 7W Cell [phone] Desk [phone] [facility] 01-31-2025 Miscellaneous Notes SW/CM aware that patient meets criteria for HHC. Spoke with Pts son over the phone to discuss dispo. Patient open and agreeable to HHC. CM provided Pt son the quality and resource use measure data from available post-acute (PAC) providers, that best align with the patient's treatment goals and preferences from the medicare.gov compare site for HHC. [place] [employer] was provided to the patient/patient disability representative. CM to follow up with accepting agencies. CM to continue to follow. ADDENDUM: CM spoke with Debra Calvinrosakatarina from [facility] and she states that the patient can receive therapy under Medicare part B from PT at her AL if she so wishes. CM will continue to follow additional discharge planning needs. ADDENDUM: CM spoke with Pt son and notified him that patient would be discharge back to her AL today. Son stated that he would be at to black pickler pt and transport her back to [facility] after 5pm. CM will continue to follow. Breanna Wilder MSN, RN Inpatient Environmental Protection Inspector 7E/7W Cell [phone] Desk [phone] Associated Problem(s): Aneurysm of hepatic artery (HCC) [...] an 84 year old (Full Code) Room: [address] [id number] 1940 FROM Step down unit TO Medicine team 6 Admit Date: 01/25/2025 Today's Date: 01/29/2025 Length of stay: 4 day(s) HOSPITAL COURSE: Ely Hurtado is a 84 year old female admitted on 01/25/2025 with a PMH of anemia, rectal bleeding, history ov DVT, aneurysm of hepatic artery transferred from OSH for urgent vascular intervention and anemia. Patient who currently resides at [facility] ([facility]) where she was found to have significant bright red blood in her stool following multiple episodes of diarrhea on the morning of 01/24. They were transferred to the [facility] ED later that day for further evaluation. [...] Aspirin 81 mg [] Voiding trial Disposition: [facility] facility Inpatient CONSULTS: IP GASTROENTEROLOGY CONSULT Outpatient f/u: PCP F/u angiography in 3 months PROBLEM LIST: Rectal bleed s/p colonoscopy 01/27 Hepatic artery aneurysm s/p coiling 01/28 Nelda James DO Family Medicine, PGY2 Pager: [phone] Spoke with Pt's son and daughter in [...] from the medicare.gov compare site for SNF. [place] [employer] was provided to the patient/patient disability representative. For SNF: RN/MD to complete [employer]. Signature page placed on patient's chart for MD signature. [id number] initiated in HENS Pt will require a pre-cert/LOC. SW/CM will follow up for choices. Referral sent to [facility] which is the sister SNF for [facility]. CM will continue to follow Breanna Wilder MSN, RN Inpatient Environmental Protection Inspector W Cell [phone] Desk [phone] I tried at least thrice to reach her son to update on her colonoscopy but with no avail. Ely Hurtado 84 year old Surgical Contact Serial Number: [id number] Location: [facility] ADD ON PROCEDURE Date: 01/27/2025 Overhead Line Worker: Juan Parikh MD Attending:Adrien Caraballo MD Procedure(s): [...] transillumination of right lower quadrant. Prep was [place] Bowel Prep Right Colon: Entire colon seen well, [place] Bowel Prep Transverse Colon: Entire colon seen well, [place] Bowel Prep Left Colon:Entire colon seen well [...] + internal hemorrhoids Rectal bleeding (Primary Diagnosis) [846188] Unspecified right bundle-branch block [[id number]] Abnormal electrocardiogram (ECG) (EKG) [[id number]] Abnormal electrocardiogram (ECG) (EKG) [[id number]] ANATOMIC SPECIMEN: Yes SPECIMEN: ID Type Source Tests Collected by Time Destination A : A. ascending colon bx Tissue Ascending colon SURGICAL GI ANATOMIC PATHOLOGY Juan Parikh MD 01/27/20251710 B : rectum bx Tissue Rectum SPECIMEN [...] Caraballo MD Division of Gastroenterology & Hepatology [facility] Ely Hurtado is a 84 year old female admitted on 01/25/2025 with a history of HTN, HLD, DVT (Eliquis) transferred from [facility] for urgent vascular intervention for incidental finding [...] anticoagulation before discharge. documented in this encounter [facility] 01-31-2025 Consult note Associated Order (s): IP [...] Max Mod Min CG CS Sup DS [place] I Comment Supine to sit X Sit [...] With Patients permission ordered no equipment via [employer]. If any questions contact [facility] DME Provider at [phone]. 01/31/2025 6 Clicks Basic Mobility PT Difficulty [...] Patient is functionally appropriate for discharge to [facility] with assist PRN once medically [...] NA = Not Assessed, I = Independent, [place] = Modified Independent, Sup = Supervised, Set up = Physical Assistance for Set-up Only, Min = Minimal Assistance, Mod = Moderate Assistance, Max = Maximal assistance; Dep = Dependent; AROM = Active Range of Motion; PROM = Passive Range of Motion; MMT = Manual Muscle Test [facility] 01-31-2025 Note PHYSICAL THERAPY PRO TOMÁS SUMMARY [...] Max Mod Min CG CS Sup DS [place] I Comment Supine to sit X Sit [...] With Patients permission ordered no equipment via [employer]. If any questions contact [facility] DME Provider at [phone]. 01/31/2025 6 Clicks Basic Mobility PT Difficulty [...] Patient is functionally appropriate for discharge to [facility] with assist PRN once medically [...] NA = Not Assessed, I = Independent, [place] = Modified Independent, Sup = Supervised, Set up = Physical Assistance for Set-up Only, Min = Minimal Assistance, Mod = Moderate Assistance, Max = Maximal assistance; Dep = Dependent; AROM = Active Range of Motion; PROM = Passive Range of Motion; MMT = Manual Muscle Test [email or web address] 01-31-2025 Consult note Associated Order (s): [...] Max Mod Min CG CS Sup DS [place] I Comment Supine to sit X Sit [...] With Patients permission ordered no equipment via [employer]. If any questions contact [facility] DME Provider at [phone]. 01/31/2025 6 Clicks Basic Mobility PT Difficulty [...] Patient is functionally appropriate for discharge to [facility] with assist PRN once medically [...] NA = Not Assessed, I = Independent, [place] = Modified Independent, Sup = Supervised, Set up = Physical Assistance for Set-up Only, Min = Minimal Assistance, Mod = Moderate Assistance, Max = Maximal assistance; Dep = Dependent; AROM = Active Range of Motion; PROM = Passive Range of Motion; MMT = Manual Muscle Test Images from the original note were not included. Dietitian vs DietaryTech: Dietary TechDiet Rolloff Truck Driver Nutrition Screening Reason for visit: LOS 5 [...] up. Will continue to follow, Ava Hays Data Warehousing Specialist Pager#[phone] Time spent on patient care: 15 minutes [...] intervention and anemia. Pt currently resides at [facility] ([facility]) Diagnosis: Rectal Bleeding Hepatic Aneurysm/pseudoaneurysm Urinary retention [...] somewhere" Patient Identified Goal(s): find her walker LEARNING SUPPORT SPECIALIST Status: questionable historian Mobility Status: Modified indep [...] Per chart review: patient currently resides at [facility] ([facility]) with staff assist OBJECTIVE: Appearance: received supine [...] Dep Max Mod Min CG CS DS [place] I Set-Up Comment Supine to Sit x [...] With Patients permission ordered no equipment via [employer]. If any questions contact [facility] DME Provider at [phone]. 01/27/2025 6 Clicks Basic Mobility PT Difficulty [...] address. Recommend further therapy services in a Snf Setting once medically cleared. Will continue to [...] NA = Not Assessed, I = Independent, [place] = Modified Independent, Sup = Supervised, Set [...] Patient Subjective: "My walker is somewhere in [place]" Patient Identified Goal(s): Return home Home Living Situation Per pt report: Lives in apartment w 0 LATESHA 0 steps to bed/ bathroom (walk in shower) Lives alone w son PRN assistance Equipment available: rollator, shower chair, grab bars Ind w ADL+ assist for IADLs [place] for functional mobility w rollator (-) Drive (-) Falls Per chart: pt resides at SNF ([facility]) with staff assist OBJECTIVE: Patient Identification: patient verbalizing his/her name and date of . and patient's id band and date of . Risks and benefits of occupational therapy: Patient informed of risks and benefits of treatment Appearance: supine in bed upon arrival, thais belt, hep lock IV, tele, BP cuff Alertness: WFL Affect: WNL Cooperation/Behavior: Appropriate dialogue with therapist and Pleasant and cooperative Communication: WFL Pain: Pain ratin/10 Pain Relief Interventions Implemented: Positioning Self Care: Assistance Level Dep Max Mod Min CG CS DS [place] I Set-Up Comment Feeding x x NPO Anticipate CS Grooming/Hygiene x x Anticipate seated Bathing:UB x Anticipate seated Bathing:LB x Anticipate seated Dressing:UB x Adjust hospital gown seated EOB Dressing: LB x Anticipate seated Toileting x x Anticipate CS for pericare and CGA for clothing management Transfers/Bed Mobility: Assistance Level Dep Max Mod Min CG CS DS [place] I Set-Up Comment Toilet Transfers x Anticiapte [...] call light in reach. Chair alarm intact. Esmeralda belt in place. DME: With Patients permission ordered no equipment via [employer]. If any questions contact [facility] DME Provider at [phone]. 01/27/2025 6 Clicks Daily Activity OT Help [...] Guard Assist/Supervision 4 - Non = Modified [place]/Independent ASSESSMENT: Recommend further therapy services in a [...] perform commode transfers with Modified Independent PLAN: Eyl Hurtado will be seen 1-3 times a [...] NA = Not Assessed, I = Independent, [place] = Modified Independent, Sup = Supervised, Set [...] H&P Note GI Attending Physician: Dr. Isauro Page MD Patient: Ely Hurtado Location: 7-413/1 Reason for Consult: [facility] Ely Hurtado is a 84 year [...] hemoglobin was 6 prior to transferred to [facility]. She received 2 units of RBC transfusion. [...] [place] MD, MS Gastroenterology Fellow. Consult Pager [phone] Discussed with GI attending, Dr. Adrien Caraballo MD Primary team updated yes. Thank you for involving us in the care of this patient. I appreciate the excellent care from the nursing staff, and applications support lead. Dictated using voice recognition software. Document may [...] Staff Gastoenterologist Division of Gastroenterology & Hepatology [facility] [1] No past medical history on file. 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 Whittaker or until AC restarted. [facility] 01-30-2025 Evaluation + Plan note Associated Problem(s): [...] okay to resume anticoagulation after polyp biopsy [facility] 01-30-2025 Evaluation + Plan note Associated Problem(s): [...] okay to resume anticoagulation after polyp biopsy [facility] 01-30-2025 Evaluation + Plan note Associated Problem(s): [...] okay to resume anticoagulation after polyp biopsy [facility] 01-30-2025 Evaluation + Plan note Associated Problem(s): [...] okay to resume anticoagulation after polyp biopsy [facility] 01-30-2025 Evaluation + Plan note Associated Problem(s): Hyperlipidemia, unspecified --chronic. stable. continue home statin [facility] 01-30-2025 Note Hospital Medicine Pr ogress Note Ely Hurtado Age [age] year old female [id number] AC8-704/2 Admitted 01/25/2025 12:28 PM Hospital Day: 6 Subjective HOSPITAL COURSE: Ely Hurtado is a 84 year old female admitted on 01/25/2025 with a history of HTN, HLD, DVT (Eliquis) transferred from [facility] for urgent vascular intervention for incidental finding [...] re-eval by PT/OT Floyd Odom DO [email or web address] [facility] 01-30-2025 History of Present illness Narrative Hospital Medicine Progress Note Ely Hurtado Age [age] year old female [id number] AC8-704/2 Admitted 01/25/2025 12:28 PM Hospital Day: [...] Ely Hurtado Age [age] year old female [id number] AC8-704/2 Admitted 01/25/2025 12:28 PM Hospital Day: 5 HOSPITAL COURSE: Ely Hurtado is a 84 year old female admitted on 01/25/2025 with a history of anemia, rectal bleeding, history of DVT (Eliquis), aneurysm of hepatic artery transferred from [facility] for urgent vascular intervention. Patient with acute [...] ambulating from BR Pulse 107 Temp 98.4 F (36.9 C) [...] addressed. NOK: Primary Emergency Contact: aliza hurtado, Leon Aliza Hancock MD [facility] Medicine CRITICAL CARE ATTENDING PROGRESS NOTE [...] of Hepatic A. Aneurysm Hemorrhoidal care #2 RACING BOARD MARKER stable Neurochecks #3CV Resolved hypotension VS&ECG monitoring [...] for good health sent in from out [facility] with BRBPR after CT abdomen showed [...] Intake/Output Summary (Last 24 hours) at 01/28/2025 192 Last data filed at 01/28/2025 1525 Gross [...] back to SNF Dr. Jose Rafael Desouza [id number] bp#[id number] Images from the original note were not included. .[facility] Step Down Unit - Progress Note Patient: Ely Hurtado : 1940 Sex: female Room: [place] [address] Admission: 01/25/2025 Today: 01/29/2025 (Length of stay: 4 day(s)) HOSPITAL COURSE: Ely Hurtado is a 84 year old female admitted on 01/25/2025 with a PMH of anemia, rectal bleeding, history ov DVT, 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 Patient who currently resides at [facility] ([facility]) where she was found to have significant bright red blood in her stool following multiple episodes of diarrhea on the morning of 01/24. They were transferred to the [facility] ED later that day for further evaluation. [...] work up PROBLEM LIST: Neuro AxOx2 at [facility] per OSH notes. Cardiology -No Acute [...] DO PGY-2 Family Medicine Stepdown Unit Pager [phone] patient to get up and [...] Pulmonary, Critical Care, & Sleep Medicine [facility] PIN [id number] [1] Social History Tobacco Use Smoking Status Not on file Smokeless Tobacco Not on file Images from the original note were not included. .[facility] Step Down Unit - Progress Note Patient: Ely uHrtado : 1940 Sex: female Room: [place] [address] Admission: 01/25/2025 Today: 01/28/2025 (Length of stay: 3 day(s)) HOSPITAL COURSE: Ely Hurtado is a 84 year old female admitted on 01/25/2025 with a PMH of anemia, rectal bleeding, history ov DVT, 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 Patient who currently resides at [facility] ([facility]) where she was found to have significant bright red blood in her stool following multiple episodes of diarrhea on the morning of 8/18. They were transferred to the [facility] ED later that day for further evaluation. [...] work up PROBLEM LIST: Neuro AxOx2 at [facility] per OSH notes. Cardiology -No Acute [...] DO PGY-2 Family Medicine Stepdown Unit Pager [phone] 01/27/25 1500 Assessment and Discharge Planning Evaluation READMISSION LESS THAN 30 DAYS No READMISSION RISK SCORE IS Rising Risk INTERVIEWED Chart Review COGNITIVE STATUS Oriented FUNCTIONAL STATUS PRIOR TO ADMISSION Ambulates with director medical safety (cane, walker, etc.);Independent with ADL's HAS ADVANCE [...] that the patient is a resident a [facility] ([phone]). CM left a message to inquire if Facility has SNF capabilities. CM to notifiy the facility if the patient is medically able to return. PT/OT recommend that pt go to a SNF when pt is medically ready to discharge. CM to follow up. ADDENDUM: CM received a return phone call from [facility] [place] staff that states that they do have a SNF side to their facility. However they are not in [place] and they do not know the process of how to discharge the patient to SNF side instead of [place]. CM was give contact phone number of [phone]. CM to follow up on 01/28/2025 during business hours. Breanna Wilder MSN, RN Inpatient Environmental Protection Inspector 7E/7W Cell [id number]-[phone] Desk [id number]-[phone] Images from the original note were not [...] 91 23 97 % Room air 01/26/25 210 -- -- -- 92 17 98 % [...] Pulmonary, Critical Care, & Sleep Medicine [facility] PIN [id number] [1] Social History Tobacco Use Smoking Status Not on file Smokeless Tobacco Not on file Images from the original note were not included. .[facility] Step Down Unit - Progress Note Patient: Ely Hurtado : 1940 Sex: female Room: [place] [address] Admission: 01/25/2025 Today: 01/27/2025 (Length of stay: 2 day(s)) HOSPITAL COURSE: Ely Hurtado is a 84 year old female admitted on 01/25/2025 with a PMH of anemia, rectal bleeding, history ov DVT, 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 Patient who currently resides at [facility] ([facility]) where she was found to have significant bright red blood in her stool following multiple episodes of diarrhea on the morning of 01/24. They were transferred to the [facility] ED later that day for further evaluation. [...] GI this afternoon SUBJECTIVE: INTERVAL UPDATES: NAEON Refused colnoscopy, GI got consent from son [...] work up PROBLEM LIST: Neuro AxOx2 at [facility] per OSH notes. Cardiology -No Acute [...] MD PGY-1 Internal Medicine Stepdown Unit Pager [phone] Images from the original note were not [...] with hematochezia x 1 day. Presented to [facility]. Hgb decreased to 6.2. Received 2U PRBCs. [...] 97 % Room air 01/25/251999 -- 99 F (37.2 C) Oral -- [...] Pulmonary, Critical Care, & Sleep Medicine [facility] PIN [id number] [1] Social History Tobacco Use Smoking Status Not on file Smokeless Tobacco Not on file Images from the original note were not included. .[facility] Step Down Unit - Progress Note Patient: Ely Hurtado : 1940 Sex: female Room: [place] [address] Admission: 01/25/2025 Today: 01/26/2025 (Length of stay: 1 day(s)) HOSPITAL COURSE: Ely Hurtado is a 84 year old female admitted on 01/25/2025 with a PMH of anemia, rectal bleeding, history ov DVT, 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 Patient who currently resides at [facility] ([facility]) where she was found to have significant bright red blood in her stool following multiple episodes of diarrhea on the morning of 01/24. They were transferred to the [facility] ED later that day for further evaluation. [...] work up PROBLEM LIST: Neuro AxOx2 at [facility] per OSH notes. Cardiology -No Acute [...] MD PGY-1 Internal Medicine Stepdown Unit Pager [phone] documented in this encounter [facility] 01-29-2025 Evaluation + Plan note Associated Problem(s): [...] is advised will need to restart Eliquis [facility] 01-29-2025 Evaluation + Plan note Associated Problem(s): [...] is advised will need to restart Eliquis [facility] 01-29-2025 Evaluation + Plan note Associated Problem(s): [...] is advised will need to restart Eliquis [facility] 01-29-2025 Evaluation + Plan note Associated Problem(s): [...] is advised will need to restart Eliquis [facility] 01-29-2025 Evaluation + Plan note Associated Problem(s): 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 Whittaker or until Eliquis restarted. [facility] 01-29-2025 Evaluation + Plan note Associated Problem(s): Hyperlipidemia, unspecified --chronic. stable. continue home statin [facility] 01-29-2025 Note Hospital Medicine Pr ogress Note Ely Hurtado Age [age] year old female [id number] AC8-704/2 Admitted 01/25/2025 12:28 PM Hospital Day: 5 HOSPITAL COURSE: Ely Hurtado is a 84 year old female admitted on 01/25/2025 with a history of anemia, rectal bleeding, history of DVT (Eliquis), aneurysm of hepatic artery transferred from [facility] for urgent vascular intervention. Patient with acute [...] Emergency Contact: aliza hurtado, Aliza Hancock MD [facility] 01-29-2025 Note CRITICAL CARE ATTEND [...] of Hepatic A. Aneurysm Hemorrhoidal care #2 RACING BOARD MARKER stable Neurochecks #3CV Resolved hypotension VS AND [...] for good health [place] with [facility] after CT abdomen showed [...] Intake/Output Summary (Last 24 hours) at 01/28/2025 192 Last data filed at 01/28/2025 1525 Gross [...] gamez out PO PPI Dispo back to [facility] Dr. Jose Rafael Desouza [id number] bp#[id number] [email or web address] 01-29-2025 Progress note Formatting of t his note is different from the original. Images from the original note were not included. . TRANSFER NOTE Patient: Ms. Ely Hurtado, an 84 year old (Full Code) Room: AC7-413/1 1940 FROM Step down unit TO Medicine team 6 Admit Date: 01/25/2025 Today's Date: 01/29/2025 Length of stay: 4 day(s) HOSPITAL COURSE: Ely Hurtado is a 84 year old female admitted on 01/25/2025 with a PMH of anemia, rectal bleeding, history ov DVT, aneurysm of hepatic artery transferred from OSH for urgent vascular intervention and anemia. Patient who currently resides at [facility] ([facility]) where she was found to have significant bright red blood in her stool following multiple episodes of diarrhea on the morning of 01/24. They were transferred to the [facility] ED later that day for further evaluation. [...] Aspirin 81 mg [] Voiding trial Disposition: [facility] facility Inpatient CONSULTS: IP GASTROENTEROLOGY CONSULT Outpatient f/u: PCP F/u angiography in 3 months PROBLEM LIST: Rectal bleed s/p colonoscopy 01/27 Hepatic artery aneurysm s/p coiling 01/28 Nelda James DO Family Medicine, PGY2 FM Pager: [phone] [facility] 01-29-2025 Note .[facility] Step Down Unit - Progress Note Patient: Ely Hurtado : 1940 Sex: female Room: [place] [address] Admission: 01/25/2025 Today: 01/29/2025 (Length of stay: 4 day(s)) HOSPITAL COURSE: Ely Hurtado is a 84 year old female admitted on 01/25/2025 with a PMH of anemia, rectal bleeding, history ov DVT, 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 Patient who currently resides at [facility] ([facility]) where she was found to have significant bright red blood in her stool following multiple episodes of diarrhea on the morning of 01/24. They were transferred to the [facility] ED later that day for further evaluation. [...] work up PROBLEM LIST: Neuro AxOx2 at [facility] per OSH notes. Cardiology -No Acute [...] of cholestasi (more content not included)... [email or web address] 01-28-2025 Note POST-PROCEDURE NOTE Procedure: Left Femoral Artery approach Abdominal Angiogram with Proper Hepatic Artery Coil Embolization Pre-operative Diagnosis: Proper Hepatic Artery Aneurysm Post-operative Diagnosis: Proper Hepatic Artery Aneurysm Attending: Anselmo Whittaker MD Drilling Machine Runner: Bessy Acuña MD A TIME OUT was [...] procedural details. Bessy Acuña MD Radiology [facility] 01-28-2025 Plan of care note Spoke [...] decides. Family verbalized understanding. Nelda James DO [facility] 01-28-2025 Progress note Formatting of t his [...] from the medicare.gov compare site for SNF. [place] of Choice was provided to the patient/patient disability representative. For SNF: RN/MD to complete [employer]. Signature page placed on patient's chart for MD signature. [id number] initiated in [facility] Pt will require a pre-cert/LOC. SW/CM will follow up for choices. Referral sent to [facility] which is the sister SNF for [facility]. CM will continue to follow Breanna Wilder MSN, RN Inpatient Environmental Protection Inspector /7W Cell [phone] Desk Cwpyz-[phone] [facility] 01-28-2025 Note Pre-Procedure H AND P Date: [...] Directives (Living will, health care power of attorney general): none Patient Recent Code Status: Full Code Code Status For This Procedure: Full Code Patient does not have capacity to consent. Risk and benefits of the procedure were discussed with next of kin / POA. All questions answered. Lance Sandhu DO Radiology, PGY3 01/28/25 [1] No past medical history on file. [2] [facility] 01-28-2025 Note .[facility] Step Down Unit - Progress Note Patient: Ely Hurtado : 1940 Sex: female Room: [place] [address] Admission: 01/25/2025 Today: 01/28/2025 (Length of stay: 3 day(s)) HOSPITAL COURSE: Ely Hurtado is a 84 year old female admitted on 01/25/2025 with a PMH of anemia, rectal bleeding, history ov DVT, 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 Patient who currently resides at [facility] ([facility]) where she was found to have significant bright red blood in her stool following multiple episodes of diarrhea on the morning of 01/24. They were transferred to the [facility] ED later that day for further evaluation. [...] work up PROBLEM LIST: Neuro AxOx2 at [facility] per OSH notes. Cardiology -No Acute [...] Regimen Senna (more content not included)... [email or web address] 01-28-2025 Consult note Formatting of th is note is different from the original. Images from the original note were not included. Dietitian vs DietaryTech: Dietary TechDiet Rolloff Truck Driver Nutrition Screening Reason for visit: LOS 5 [...] up. Will continue to follow, Ava Hays Data Warehousing Specialist Pager#[phone] Time spent on patient care: 15 minutes [1] No past medical history on file. [facility] 01-27-2025 Plan of care note I tried at least thrice to reach her son to update on her colonoscopy but with no avail. [facility] 01-27-2025 Note 01/27/25 1500 Assessment and Discharge Planning Evaluation READMISSION LESS THAN 30 DAYS No READMISSION RISK SCORE IS Rising Risk INTERVIEWED Chart Review COGNITIVE STATUS Oriented FUNCTIONAL STATUS PRIOR TO ADMISSION Ambulates with director medical safety (cane, walker, etc.);Independent with ADL's HAS ADVANCE [...] that the patient is a resident a [facility] ([phone]). CM left a message to inquire if Facility has SNF capabilities. CM to notifiy the facility if the patient is medically able to return. PT/OT recommend that pt go to a SNF when pt is medically ready to discharge. CM to follow up. ADDENDUM: CM received a return phone call from [facility] [place] staff that states that they do have a SNF side to their facility. However they are not in [place] and they do not know the process of how to discharge the patient to SNF side instead of [place]. CM was give contact phone number of [phone]. CM to follow up on 01/28/2025 during business hours. Breanna Wilder MSN, RN Inpatient Environmental Protection Inspector 7E/7W Cell [phone] Desk [phone] [email or web address] 01-27-2025 Surgery Surgical operation note Ely Hurtado 84 year old Surgical Contact Serial Number: [id number] Location: ENDO ADD ON PROCEDURE Date: 01/27/2025 Overhead Line Worker: Juan Parikh MD Attending:Adrien Caraballo MD Procedure(s): [...] transillumination of right lower quadrant. Prep was [place] Bowel Prep Right Colon: Entire colon seen well, [place] Bowel Prep Transverse Colon: Entire colon seen well, [place] Bowel Prep Left Colon:Entire colon seen well [...] + internal hemorrhoids Rectal bleeding (Primary Diagnosis) [327251] Unspecified right bundle-branch block [0497380] Abnormal electrocardiogram (ECG) (EKG) [[id number]] Abnormal electrocardiogram (ECG) (EKG) [[id number]] ANATOMIC SPECIMEN: Yes SPECIMEN: ID Type Source [...] Caraballo MD Division of Gastroenterology & Hepatology [facility] 01-27-2025 History and physical note Ely Hurtado [id number] 01/27/2025 HISTORY & PHYSICAL: Patient's history with [...] sedation. Juan Parikh MD 01/27/2025 3:34 PM [facility] 01-27-2025 History and physical note Ely Hurtado [id number] 01/27/2025 HISTORY & PHYSICAL: Patient's history with [...] from the original note were not included. .[facility] Step Down Unit - H&P Patient: Ely Hurtado : 1940 Sex: female Room: [place] [address] Admission: 01/25/2025 Today: 01/25/2025 (Length of stay: 1 day(s)) HISTORY OF PRESENT ILLNESS: CHIEF COMPLAINT: No chief complaint on file. 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 Patient who currently resides at [facility] ([facility]) where she was found to have significant bright red blood in her stool following multiple episodes of diarrhea on the morning of 01/24. They were transferred to the [facility] ED later that day for further evaluation. [...] and anemia. PROBLEM LIST: Neuro AxOx2 at [facility] per OSH notes. Cardiology -No Acute [...] MD PGY-1 Internal Medicine Stepdown Unit Pager [phone] [1] No past medical history on file. [...] note Patient: Ely Hurtado : 1940 Location: [place] [address] Admission Date: 01/25/2025 Length of stay: 1 day(s) Ms. Ely Hurtado is a 84 year old female Data obtained by the EMR and corroborated by [facility] resident significant bright red blood in her [...] 01/25/2025 7:53 PM documented in this encounter [facility] 01-27-2025 Consult note Associated Order (s): IP [...] intervention and anemia. Pt currently resides at [facility] ([facility]) Diagnosis: Rectal Bleeding Hepatic Aneurysm/pseudoaneurysm Urinary retention [...] somewhere" Patient Identified Goal(s): find her walker LEARNING SUPPORT SPECIALIST Status: questionable historian Mobility Status: Modified indep [...] Per chart review: patient currently resides at [facility] ([facility]) with staff assist OBJECTIVE: Appearance: received supine [...] Dep Max Mod Min CG CS DS [place] I Set-Up Comment Supine to Sit x [...] With Patients permission ordered no equipment via [employer]. If any questions contact [facility] Provider at [phone]. 01/27/2025 6 Clicks Basic Mobility PT Difficulty [...] address. Recommend further therapy services in a Snf Setting once medically cleared. Will continue to [...] understanding and agreement with the plan. Estela Elkins PT, DPT NA = Not Assessed, I = Independent, [place] = Modified Independent, Sup = Supervised, Set [...] [2] No past surgical history on file. [facility] 01-27-2025 Note PHYSICAL THERAPY ACU TE [...] intervention and anemia. Pt currently resides at [facility] ([facility]) Diagnosis: Rectal Bleeding Hepatic Aneurysm/pseudoaneurysm Urinary retention [...] somewhere" Patient Identified Goal(s): find her walker LEARNING SUPPORT SPECIALIST Status: questionable historian Mobility Status: Modified indep [...] chart review: patient currently resides at SNF ([facility]) with staff assist OBJECTIVE: Appearance: received supine [...] Dep Max Mod Min CG CS DS [place] I Set-Up Comment Supine to Sit x [...] With Patients permission ordered no equipment via [employer]. If any questions contact [email or web address] at [phone]. 01/27/2025 6 Clicks Basic Mobility PT Difficulty [...] Clicks Score (more content not included)... [email or web address] 01-27-2025 Consult note Associated Order (s): [...] Patient Subjective: "My walker is somewhere in [place]" Patient Identified Goal(s): Return home Home Living Situation Per pt report: Lives in apartment w 0 LATESHA 0 steps to bed/ bathroom (walk in shower) Lives alone w son PRN assistance Equipment available: rollator, shower chair, grab bars Ind w ADL+ assist for IADLs [place] for functional mobility w rollator (-) Drive (-) Falls Per chart: pt resides at SNF ([facility]) with staff assist OBJECTIVE: Patient Identification: patient verbalizing his/her name and date of . and patient's id band and date of . Risks and benefits of occupational therapy: Patient informed of risks and benefits of treatment Appearance: supine in bed upon arrival, thais belt, hep lock IV, tele, BP cuff Alertness: WFL Affect: WNL Cooperation/Behavior: Appropriate dialogue with therapist and Pleasant and cooperative Communication: WFL Pain: Pain ratin/10 Pain Relief Interventions Implemented: Positioning Self Care: Assistance Level Dep Max Mod Min CG CS DS [place] I Set-Up Comment Feeding x x NPO Anticipate CS Grooming/Hygiene x x Anticipate seated Bathing:UB x Anticipate seated Bathing:LB x Anticipate seated Dressing:UB x Adjust hospital gown seated EOB Dressing: LB x Anticipate seated Toileting x x Anticipate CS for pericare and CGA for clothing management Transfers/Bed Mobility: Assistance Level Dep Max Mod Min CG CS DS [place] I Set-Up Comment Toilet Transfers x Anticiapte [...] call light in reach. Chair alarm intact. Esmeralda belt in place. DME: With Patients permission ordered no equipment via [employer]. If any questions contact [facility] DME Provider at [phone]. 01/27/2025 6 Clicks Daily Activity OT Help [...] Guard Assist/Supervision 4 - Non = Modified [place]/Independent ASSESSMENT: Recommend further therapy services in a [...] commode transfers with Modified Independent PLAN: Ely Ritchienell will be seen 1-3 times a week. [...] the licensed, supervising therapist. Sayra Resendez S/OT I was present and participated in the delivery of services for this encounter. In addition, I am responsible for the skilled judgement and assessment of all interventions provided. POONAM Garcia NA = Not Assessed, I = Independent, [place] = Modified Independent, Sup = Supervised, Set up = Physical Assistance for Set-up Only, Min = Minimal Assistance, Mod = Moderate Assistance, Max = Max assistance; Dep = Dependent; AROM = Active Range of Motion;PROM=Passive Range of Motion; MMT = Manual Muscle Test; UB = Upper Body; LB = Lower Body [1] No past surgical history on file. [facility] 01-27-2025 Note OCCUPATIONAL THERAPY INITIAL EVALUATION Patient [...] Patient Subjective: "My walker is somewhere in [place]" Patient Identified Goal(s): Return home Home Living Situation Per pt report: Lives in apartment w 0 LATESHA 0 steps to bed/ bathroom (walk in shower) Lives alone w son PRN assistance Equipment available: rollator, shower chair, grab bars Ind w ADL+ assist for IADLs [place] for functional mobility w rollator (-) Drive (-) Falls Per chart: pt resides at SNF ([facility]) with staff assist OBJECTIVE: Patient Identification: patient verbalizing his/her name and date of . and patient's id band and date of . Risks and benefits of occupational therapy: Patient informed of risks and benefits of treatment Appearance: supine in bed upon arrival, thais belt, hep lock IV, tele, BP cuff Alertness: WFL Affect: WNL Cooperation/Behavior: Appropriate dialogue with therapist and Pleasant and cooperative Communication: WFL Pain: Pain ratin/10 Pain Relief Interventions Implemented: Positioning Self Care: Assistance Level Dep Max Mod Min CG CS DS [place] I Set-Up Comment Feeding x x NPO Anticipate CS Grooming/Hygiene x x Anticipate seated Bathing:UB x Anticipate seated Bathing:LB x Anticipate seated Dressing:UB x Adjust hospital gown seated EOB Dressing: LB x Anticipate seated Toileting x x Anticipate CS for pericare and CGA for clothing management Transfers/Bed Mobility: Assistance Level Dep Max Mod Min CG CS DS [place] I Set-Up Comment Toilet Transfers x Anticiapte [...] call light in reach. Chair alarm intact. Esmeralda belt in place. DME: With Patients permission ordered no equipment via [employer]. If any questions contact [facility] DME Provider at [phone]. 01/27/2025 6 Clicks Daily Activity OT Help [...] Guard Assist/Supervision 4 - Non = Modified [place]/Independent ASSESSMENT: Recommend further therapy services in a [...] with M (more content not included)... [email or web address] 01-27-2025 Note .[facility] Step Down Unit - Progress Note Patient: Ely Hurtado : 1940 Sex: female Room: [place] [address] Admission: 01/25/2025 Today: 01/27/2025 (Length of stay: 2 day(s)) HOSPITAL COURSE: Ely Hurtado is a 84 year old female admitted on 01/25/2025 with a PMH of anemia, rectal bleeding, history ov DVT, 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 Patient who currently resides at [facility] ([facility]) where she was found to have significant bright red blood in her stool following multiple episodes of diarrhea on the morning of 01/24. They were transferred to the [facility] ED later that day for further evaluation. [...] GI this afternoon SUBJECTIVE: INTERVAL UPDATES: NAEON Refused colnoscopy, GI got consent from son [...] work up PROBLEM LIST: Neuro AxOx2 at [facility] per OSH notes. Cardiology -No Acute [...] physician. N (more content not included)... [facility] 01-26-2025 Consult note Associated Order (s): IP GASTROENTEROLOGY CONSULT Images from the original note were not included. Department of Gastroenterology and Hepatology Consult H&P Note GI Attending Physician: Dr. Isauro Page MD Patient: Ely Hurtado Location: [address] Reason for Consult: HPI Ely Hurtado is [...] hemoglobin was 6 prior to transferred to [facility]. She received 2 units of RBC transfusion. [...] [place] MD, MS Gastroenterology Fellow. Consult Pager [phone] Discussed with GI attending, Dr. Adrien Caraballo MD Primary team updated yes. Thank you for involving us in the care of this patient. I appreciate the excellent care from the nursing staff, and applications support lead. Dictated using voice recognition software. Document may [...] Staff Gastoenterologist Division of Gastroenterology & Hepatology [facility] [1] No past medical history on file. [2] No past surgical history on file. [3] [facility] Work Phone: 01-26-2025 Hospital Note Formatting of t his note might be different from the original. Ely Hurtado is a 84 year old female admitted on 01/25/2025 with a history of HTN, HLD, DVT (Eliquis) transferred from [facility] for urgent vascular intervention for incidental finding [...] trial of re-initiation of anticoagulation before discharge. 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 Patient who currently resides at [facility] ([facility]) where she was found to have significant bright red blood in her stool following multiple episodes of diarrhea on the morning of 01/24. They were transferred to the [facility] ED later that day for further evaluation. [...] by GI this afternoon SUBJECTIVE: INTERVAL UPDATES: NAEKATARINA SUBJECTIVE: Patient seen and examined at bedside. [...] work up PROBLEM LIST: Neuro AxOx2 at [facility] per OSH notes. Cardiology -No Acute [...] MD PGY-1 Internal Medicine Stepdown Unit Pager [phone] [facility] [email or web address] [facility] 01-25-2025 Consult note Formatting of th [...] Garrison DO at 01/28/2025 4:46 PM EDT [facility] Work Phone: 01-25-2025 History and physical note Images from the original note were not included. .[facility] Step Down Unit - H&P Patient: Ely Hurtado : 1940 Sex: female Room: [place] [address] Admission: 01/25/2025 Today: 01/25/2025 (Length of stay: 1 day(s)) HISTORY OF PRESENT ILLNESS: CHIEF COMPLAINT: No chief complaint on file. 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 Patient who currently resides at [facility] ([facility]) where she was found to have significant bright red blood in her stool following multiple episodes of diarrhea on the morning of 01/24. They were transferred to the [facility] ED later that day for further evaluation. [...] Intake/Output Summary (Last 24 hours) at 01/25/2025 1181 Last data filed at 01/25/2025 1600 Gross [...] and anemia. PROBLEM LIST: [facility] per OSH notes. Cardiology -No Acute concerns [...] MD PGY-1 Internal Medicine Stepdown Unit Pager [phone] [1] No past medical history on file. [2] No past surgical history on file. [3] No family history on file. [4] [5] No current facility-administered medications on file prior to encounter. No current outpatient medications on file prior to encounter. [6] Not on File [facility] 01-25-2025 History and physical note Images from the original note were not included. Division of Pulmonary, Critical Care and Sleep Medicine Critical Care Initial Evaluation note Patient: Ely Hurtado : 1940 Location: [place] [address] Admission Date: 01/25/2025 Length of stay: 1 day(s) Ms. Ely Hurtado is a 84 year old female Data obtained by the EMR and corroborated by [facility] resident significant bright red blood in her [...] MD Critical Care Attending 01/25/2025 7:53 PM [facility] Work Phone: 01-25-2025 Note Division of Pulmonar y, Critical Care and Sleep Medicine Critical Care Initial Evaluation note Patient: Ely Hurtado : 1940 Location: [place] [address] Admission Date: 01/25/2025 Length of stay: 1 day(s) Ms. Ely Hurtado is a 84 year old female Data obtained by the EMR and corroborated by me [facility] resident significant bright red blood in her [...] history and physical exam. [facility] and discussed the patient. I agree with the resident's medical decision making as documented in their note. I provided 35 minutes of critical care time. Krishna Connolly MD Critical Care Attending 01/25/2025 7:53 PM [email or web address]-25-[facility]25 Telephone encounter Note Images from the original note were not included. I was called by [facility] regarding a transfer from [place]. That facility is requesting transfer because Services [...] Keyon Fallon DO Division of Hospital Medicine, [facility] Pager#: [phone] [facility] 01-25-2025 Miscellaneous Notes Images from the original note were not included. I was called by [facility] regarding a transfer from [place]. That facility is requesting transfer because Services [...] Keyon Fallon DO Division of Hospital Medicine, [facility] Pager#: [phone] documented in this encounter [facility] 01-25-2025 Radiology Diagnostic study note [facility] Services [address] [place] [id number] CTA Abd/Pelvis W/WO Contrast MR#: [id number] Acct: [id number] Name: ELY HURTADO Rep #: [id number] : 1940 F 84 From: Bob Garza MD PCP: Dianna Guido MD Status: REG ER Study:CTA Abd/Pelvis W/WO Contrast Date of Ex am: 01/24/25 Exam# [id number] Ordering Dr: Power Borges DO PROCEDURE: CTA [...] provider Power Borges 01/24/2025 at 10:50 p.m. CLINICAL TEAM MANAGER. Reading Location: [id number] CC: Dr. Power Borges DO; Dianna Guido MD ~ Dot Etcher Apprentice: Signed [facility] 06-25-2023 Progress note Note Date/Time June 25, 2023 2:29pm [facility] [address] [place] [address] Progress Note - Wound Care 06/25/23 1425 MR#: [id number] Acct: [id number] Name: ELY HURTADO Rep #:[id number] : 1940 83 From: Andie Magdaleno PM PCP: Dr. Karen Lang MD Status:R EG RCR Location: History of Present Illness Date of Service: 06/25/23 Chief Complaint: Nonhealing ulcer left lower extremity History of Wound: This is a 79-year-old white female known to me previously who was recently discharged from the [facility] in November 2018 who presents to the [...] Start: 06/11/23 13:11 Freq: Status: Active Protocol: JACK.TRINH Activity Type Activity Date Activity User E-sign Co-sign Detail Recorded Client Recorded Date Recorded By Document 06/11/23 13:11 KW Desktop 06/11/23 13:19 KW Document 06/18/23 13:58 [employer] 06/18/23 14:03 Document 06/25/23 14:01 Desktop 06/25/23 14:09 06/11/23 06/18/23 06/25/23 13:11 13:58 14:01 - Today's Visit Information Type of service Follow-up Visit Follow-up Visit Follow-up Visit (Physician/TRADE FACILITATOR (Physician/TRADE FACILITATOR (Physician/TRADE FACILITATOR ) ) ) Arrival Mode Ambulatory, Ambulatory, [...] Desktop 06/11/23 13:19 KW Document 06/18/23 13:58 [employer] 06/18/23 14:03 KW Document 06/25/23 14:01 Desktop 06/25/23 14:09 06/11/23 06/18/23 06/25/23 13:11 13:58 [...] Recorded Date Recorded By Document 06/11/23 13:41 [employer] Laptop 06/11/23 13:43 [employer] Document 06/18/23 14:21 [employer] Laptop 06/18/23 14:25 [employer] Document 06/25/23 14:18 [employer] Laptop 06/25/23 14:18 [employer] 06/11/23 06/18/23 06/25/23 13:41 14:21 14:18 Wound [...] -Expiration Date 02/08/28 02/08/28 -Product Lot Number [id number] -Percent Used 100 100 -Lot number of Saline Used [id number] -Bleeding Controlled with Pressure Pressure -Treatment Response [...] Recorded Date Recorded By Document 06/11/23 13:46 Scope 5 Desktop 06/11/23 13:47 KW Document 06/18/23 14:43 [facility] Desktop 06/18/23 14:43 [facility] Document 06/25/23 14:19 KW Desktop 06/25/23 [...] of Care Provided Yes Yes Facility Type Senior Care Care Facility Assessment/Plan Assessment/Plan (1) Non-pressure ulcer [...] Cosigner Signature (if applicable): CC: ~ Signed [facility] Work Phone: 1(364) 371-293701-10-2024 Progress note Author Andie Bernal [facility] June 18, 2023 3:30pm Note Date/Time June 18, 2023 3 :30pm [facility] [address] [place] [id number] Progress Note - Wound Care 06/18/23 1528 MR#: [id number] Acct: [id number] Name: ELY HURTADO Patsy Rep #:[id number] : 1940 83 From: Andie Magdaleno PM PCP: Dr. Karen Lang MD Status:R EG RCR Location: History of Present Illness Date of Service: 06/18/23 Chief Complaint: Nonhealing ulcer left lower extremity History of Wound: This is a 79-year-old white female known to me previously who was recently discharged from the [facility] in November 2018 who presents to the [...] applied to the left lateral full-thickness ulceration ewmd518% use. Third application. The graft site was [...] applied to the left lateral full-thickness ulceration xysl076% use. Third application. The graft site was free and clear of any infection. The wound/skin graft substitute was dressed with nonadherent bandagesecured in place with Steri-Strips followed by bolster dressing as well as a double layer Tubigrip. Post-Debridement Measurements and Additional Note: Post-Debridement Measurements/Treatment - Nurse 1 - General Ulcer Assessment Start: 06/11/23 13:11 Freq: Status: Active Protocol: JACK.LOWEXGalo Activity Type Activity Date Activity User E-sign Co-sign Detail Recorded Client Recorded Date Recorded By Document 06/11/23 13:11 KW Desktop 06/11/23 13:19 KW Document 06/18/23 13:58 KW Desktop 06/18/23 14:03 KW 06/11/23 06/18/23 13:11 13:58 - Today's Visit Information Type of service Follow-up Visit Follow-up Visit (Physician/TRADE FACILITATOR (Physician/TRADE FACILITATOR ) ) Arrival Mode Ambulatory, Ambulatory, Walker [...] Patient Pain Free? Yes Yes - Nurse 1 - General Ulcer Measurement Start: 06/11/23 13:11 Freq: Status: Active Protocol: Activity Type Activity Date Activity User E-sign Co-sign Detail Recorded Client Recorded Date Recorded By Document 06/11/23 13:11 KW [employer] 06/11/23 13:19 KW Document 06/18/23 13:58 KW [...] Recorded By Document 06/11/23 13:41 JF Laptop 01/03/24 13:43 Document 06/18/23 14:21 Laptop 06/18/23 14:25 [...] -Expiration Date 02/08/28 02/08/28 -Product Lot Number [id number] -Percent Used 100 100 -Lot number of Saline Used [id number] -Bleeding Controlled with Pressure Pressure -Treatment Response [...] Desktop 06/11/23 13:47 KW Document 06/18/23 14:43 [facility] Desktop 06/18/23 14:43 BMF 06/11/23 06/18/23 13:46 14:43 Wound Care Center [...] Summary of Care Provided Yes Facility Type Senior Care Care Facility Assessment/Plan Assessment/Plan (1) Non-pressure ulcer [...] applied to the left lateral full-thickness ulceration fgql247% use. Third application. The graft site was free and clear of any infection. The wound/skin graft substitute was dressed with nonadherent bandagesecured in place with Steri-Strips followed by bolster dressing as well as a double layer Tubigrip. Follow-up at the wound care center with Dr. Bernal in 1 week. (2) PVD (peripheral vascular disease): CODE(S): I73.9 - Peripheral vascular disease, unspecified 06/18/23 8960 <Electronically signed by Andie Bernal DPM> Cosigner Signature (if applicable): CC: ~ Signed [facility] Work Phone: 1(797) 697-565901-03-2024 Progress note Author Andie Bernal [facility] June 11, 2023 1:52pm Note Date/Time June 11, 2023 1: 52pm [facility] [address] [place] [address] Progress Note - Wound Care 06/11/23 1350 MR#: [id number] Acct: [id number] Name: ELY HURTADO Rep #:[id number] : 1940 83 From: Andie DE LA TORRE PCP: Dr. Karen Lang MD Status:R EG RCR Location: History of Present Illness Date of Service: 06/11/23 Chief Complaint: Nonhealing ulcer left lower extremity History of Wound: This is a 79-year-old white female known to me previously who was recently discharged from the [facility] in November 2018 who presents to the [...] applied to the left lateral full-thickness ulceration pcmh157% use. Second application. The graft site was [...] applied to the left lateral full-thickness ulceration lvmw356% use. Second application. The graft site was free and clear of any infection. The wound/skin graft substitute was dressed with nonadherent bandagesecured in place with Steri-Strips followed by bolster dressing as well as a double layer Tubigrip. Post-Debridement Measurements and Additional Note: Post-Debridement Measurements/Treatment WC - Nurse 1 - General Ulcer Assessment Start: 06/11/23 13:11 Freq: Status: Active Protocol: DUYENEXGalo Activity Type Activity Date Activity User E-sign Co-sign Detail Recorded Client Recorded Date Recorded By Document 06/11/23 13:11 KW Desktop 06/11/23 13:19 KW 06/11/23 13:11 WC - Today's Visit Information Type of service Follow-up Visit (Physician/TRADE FACILITATOR ) Arrival Mode Ambulatory, Walker Patient Identification [...] 06/11/23 13:11 KW Desktop 06/11/23 13:19 KW 06/11/23 13:11 Wound Center Nurse 1 #7 [...] Calf (cm) 30 Left Ankle (cm) 20.5 - Nurse 2 - General Ulcer CM [...] Disc -Expiration Date 02/08/28 -Product Lot Number [id number] -Percent Used 100 -Lot number of Saline Used [id number] -Bleeding Controlled with Pressure -Treatment Response Procedure Tolerated Well -Offloading No -Debridement - Subq, 1st 20sq cm No -Apply Skin Sub - 1st 25 sq cm - Legs 1 -Epifix 18mm Disc 3 Pain Scale: 0-10 Numeric Is Patient Pain Free? Yes - Nurse 3 - General Ulcer [...] Numeric Is Patient Pain Free? Yes - Visit Discharge Discharge Condition Stable Ambulatory [...] applied to the left lateral full-thickness ulceration tfrt825% use. Second application. The graft site was [...] Cosigner Signature (if applicable): CC: ~ Signed [facility] Work Phone: 1(883) 158-225712-27-2023 Progress note Author Andie Bernal [facility] June 04, 2023 1:36pm Note Date/Time June 04, 2023 1:36pm [facility] [address] [place] [address] Progress Note - Wound Care 06/04/23 1333 MR#: [id number] Acct: [id number] Name: ELY HURTADO Rep #:[id number] : 1940 83 From: Andie Magdaleno PM PCP: Dr. Karen Lang MD Status:R RCR Location: History of Present Illness Date of Service: 06/04/23 Chief Complaint: Nonhealing ulcer left lower extremity History of Wound: This is a 79-year-old white female known to me previously who was recently discharged from the [facility] in November 2018 who presents to the [...] applied to the left lateral full-thickness ulceration ylkz823% use. First application. The graft site was [...] applied to the left lateral full-thickness ulceration bqhc371% use. First application. The graft site was free and clear of any infection. The wound/skin graft substitute was dressed with nonadherent bandagesecured in place with Steri-Strips followed by bolster dressing as well as a double layer Tubigrip. Post-Debridement Measurements and Additional Note: Post-Debridement Measurements/Treatment JACK - Nurse 1 - General Ulcer Assessment Start: 05/21/23 13:12 Freq: Status: Active Protocol: LUZ Activity Type [...] service Initial Visit Follow-up Visit Follow-up Visit (Physician/TRADE FACILITATOR (Physician/TRADE FACILITATOR ) ) Arrival Mode Ambulatory, Ambulatory, Ambulatory, [...] than 3 Seconds Communication Assessment Preferred language Slovenian Able to Read Yes Able to Write [...] in Ability to Perform Denies Any Declines Culture/Worship/Patch Finisher Cultural/Worship Needs that may affect No Treatment Plan Would you allow our hospital tattoo and body artist to No meet you for the purpose of spiritual/ emotional support? Patch Finisher to contact place of anabaptism No WC - Nurse 1 - General [...] (1-33%) Small (1-33%) Small (1-33%) -Granulation Quality Casar Red Casar -Slough/Fibrin Yes -Necrosis Amt Large (67-100%) Large [...] 29.5 Left Ankle (cm) 21.0 20.2 20.3 - Nurse 2 - General Ulcer CM [...] Date Recorded By Document 05/21/23 14:24 DL [id number] 05/21/23 14:25 DL Document 05/28/23 13:23 [facility] Desktop 05/28/23 13:24 [facility] 05/21/23 05/28/23 14:24 13:23 Wound Care [...] to apply santyl when available. Facility Type Workers Compensation Manager Care Workers Compensation Manager Care Facility Facility Orders Sent Yes Assessment/Plan [...] applied to the left lateral full-thickness ulceration vmqr018% use. First application. The graft site was [...] 06/04/23 1336 <Electronically signed by Andie Bernal DPAruna> Cosigner Signature (if applicable): CC: ~ Signed [facility] Work Phone: 1(699) 444-290012-20-2023 Progress note Author Andie Bernal [facility] May 28, 2023 1:22pm Note Date/Time May 28, 2023 1:22pm [facility] [address] [place] [address] Progress Note - Wound Care 05/28/23 1317 MR#: [id number] Acct: [id number] Name: ELY HURTADO Rep #:[id number] : 1940 83 From: Andie Magdaleno PM PCP: Dr. Karen Lang MD Status:R EG RCR Location: History of Present Illness Date of Service: 05/28/23 Chief Complaint: Nonhealing ulcer left lower extremity History of Wound: This is a 79-year-old white female known to me previously who was recently discharged from the [facility] in November 2018 who presents to the [...] has been getting dressing [facility] through nursing staff with Santyl and [...] Ordering Physician: Andie Bernal Referring Physician: ANDIE BRENAL DPM Performed By: Neel Polk RVT Venous [...] Referring Physician: Dianna Guido Performed By: Neel Polk RVT Physical Exam Narrative Vascular: DP and PT [...] Brittany => 1.75 05/21/23 05/28/23 13:12 13:02 - Today's Visit Information Type of service Initial Visit Follow-up Visit (Physician/TRADE FACILITATOR ) Arrival Mode Ambulatory, Ambulatory, Walker Walker [...] than 3 Seconds Communication Assessment Preferred language Slovenian Able to Read Yes Able to Write [...] in Ability to Perform Denies Any Declines Culture/Worship/Patch Finisher Cultural/Worship Needs that may affect No Treatment Plan Would you allow our hospital tattoo and body artist to No meet you for the purpose of spiritual/ emotional support? Patch Finisher to contact place of anabaptism No WC - Nurse 1 - General Ulcer Measurement Start: 05/21/23 13:12 Freq: Status: Active Protocol: Activity Type Activity Date Activity User E-sign Co-sign Detail Recorded Client Recorded Date Recorded By Document 05/21/23 13:12 KW Desktop 05/21/23 13:36 KW Document 05/28/23 13:02 BMF Desktop 05/28/23 13:07 BM 05/21/23 05/28/23 13:12 13:02 Wound Center Nurse [...] Amt Small (1-33%) Small (1-33%) -Granulation Quality Casar Red -Slough/Fibrin Yes -Necrosis Amt Large (67-100%) [...] 32.6 30.6 Left Ankle (cm) 21.0 20.2 WC - Nurse 2 - General Ulcer [...] Date Recorded By Document 05/21/23 14:24 DL [id number] 05/21/23 14:25 DL 05/21/23 14:24 Wound Care [...] to apply santyl when available. Facility Type Senior Care Care Facility Orders Sent Yes Assessment/Plan Assessment/Plan [...] [facility] She will continue to take the doxycycline [...] Cosigner Signature (if applicable): CC: ~ Signed [facility] Work Phone: 1(449) 230-589412-13-2023 Progress note Author Andie Bernal [facility] May 21, 2023 3:47pm Note Date/Time May 21, 2023 3:41pm [facility] [place] [address] Progress Note - Wound Care 05/21/23 1535 MR#: [id number] Acct: [id number] Name: ELY HURTADO Rep #:[id number] : 1940 83 From: Andie DE LA TORRE PCP: Dr. Karen Lang MD Status:R EG RCR Location: History of Present Illness Date of Service: 05/21/23 Chief Complaint: Nonhealing ulcer left lower extremity History of Wound: This is a 79-year-old white female known to me previously who was recently discharged from the [facility] in November 2018 who presents to the [...] Start: 05/21/23 13:12 Freq: Status: Active Protocol: LUZ Activity Type [...] than 3 Seconds Communication Assessment Preferred language Slovenian Able to Read Yes Able to Write [...] in Ability to Perform Denies Any Declines Culture/Worship/Patch Finisher Cultural/Worship Needs that may affect No Treatment Plan Would you allow our hospital tattoo and body artist to No meet you for the purpose of spiritual/ emotional support? Patch Finisher to contact place of anabaptism No WC - Nurse 1 - General Ulcer Measurement Start: 05/21/23 13:12 Freq: Status: Active Protocol: Activity Type Activity Date Activity User E-sign Co-sign Detail Recorded Client Recorded Date Recorded By Document 05/21/23 13:12 KW Desktop 05/21/23 13:36 KW 05/21/23 13:12 Wound Center Nurse 1 #7 LT LAT LE -Current Size (cm) - Length 1.4 -Current Size (cm) - Width 1.2 -Current Size (cm) - Depth 0.2 -Total Square Cm 1.68 -Photo Taken Yes -Exudate Amt Small -Exudate Type Serosanguineous -Wound Margin Distinct, Outline Attached -Granulation Amt Small (1-33%) -Granulation Quality Casar -Necrosis Amt Large (67-100%) -Necrotic Tissue Type [...] Is Patient Pain Free? Yes - Nurse 3 - General Ulcer D/C NN Start: 05/21/23 13:12 Freq: Status: Active Protocol: Activity Type Activity Date Activity User E-sign Co-sign Detail Recorded Client Recorded Date Recorded By Document 05/21/23 14:24 DL [id number] 05/21/23 14:25 DL 05/21/23 14:24 Wound Care [...] to apply santyl when available. Facility Type Senior Care Care Facility Orders Sent Yes Assessment/Plan Assessment/Plan [...] I73.9 - Peripheral vascular disease, unspecified 05/21/23 0827 <Electronically signed by Andie Bernal DPM> Cosigner Signature (if applicable): CC: ~ Signed [facility] Work Phone: Evaluation noteNo assessment information available [facility] Work Phone: Evaluation note* Diagnosis Onset Date Resolution Status Non-pressure ulcer of left l ower extremity with fat layer exposed acute Pain in left leg acute PVD (peripheral vascular disease) chronic [facility] Work Phone: Evaluation note* Diagnosis Onset Date Resolution Status Non-pressure ulcer of left l ower extremity with fat layer exposed acute Pain in left leg acute PVD (peripheral vascular disease) chronic Non-pressure ulcer of left l ower extremity with fat layer exposed acute PVD (peripheral vascular disease) chronic [facility] Work Phone: Evaluation note* Diagnosis Rectal bleeding- Primary Hemorrhage of [...] for referral (narrative)No reason for referral [facility] Work Phone: Reason for visit Narrative* Auth/Cert (Routine) Specialty Diagnoses / Procedures Referred By Contac t Referred To Contact Case Management Diagnoses rectal bleed on eliquis 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 Procedures N/A Alicia Nava MD [place] [address] Phone: tel: fax: [facility] [employer] [address] [place] [address] Phone: tel: Referral ID Status Reason Start Date Expiration Date Visits Re quested Visits Authorized [id number] 3 3 [email or web address] Summary Purpose Family History Relationship Condition Age [...] Will Yes February 14 9:15pm Power of Psychiatric Technician Assistant No February 14, 2019 9:15pm Advance Directive Response Recorded Date/ Time Living Will Yes February 14 8:15pm Power of Psychiatric Technician Assistant No February 14, 2019 8:15pm Advance Directive Response Recorded Date/ Time Do you have a Healthcare Power of Psychiatric Technician Assistant? No January 24, 2025 9:15pm Date Activated Date Inactivated Comments 01/25/2025 12:24 PM Date Activated Date Inactivated Comments 01/25/2025 12:24 PM 01/31/2025 7:26 PM Question Answer Comments Documentation of decision pr ocess for this code status: Patient and surrogate unable or unavailable to discuss. Defaulting to the previously documented code status. Chief Complaint and Reason for Visit Chief Complaint RETIREMENT LAB WOR K Chief Complaint RETIREMENT LAB WOR K RETIREMENT LAB WORK Chief Complaint RETIREMENT LABWORK RETIREMENT LAB WORK Chief Complaint RETIREMENT LAB WOR K RETIREMENT LABWORK LABWORK LABWORK Chief Complaint RETIREMENT LABWORK LABWORK LABWORK RETIREMENT LAB WORK Chief Complaint LABWORK RETIREMENT LAB WORK RETIREMENT LAB WORK RETIREMENT LAB WORK Chief Complaint LABWORK RETIREMENT LAB WORK RETIREMENT LAB WORK RETIREMENT LAB WORK RETIREMENT LAB WORK ARTERIAL EXAM Reason for Visit Non-pressure ulcer o f left lower extremity with fat layer exposed Pain in left leg PVD (peripheral vascular disease) Chief Complaint LABWORK RETIREMENT LAB WORK RETIREMENT LAB WORK RETIREMENT LAB WORK RETIREMENT LABWORK RETIREMENT LAB WORK ARTERIAL EXAM ARTERIAL EXAM Reason for Visit Non-pressure ulcer o f left lower extremity with fat layer exposed Pain in left leg PVD (peripheral vascular disease) 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 PVD (peripheral vascular disease) Chief Complaint RETIREMENT LAB WOR K RETIREMENT LAB WORK RETIREMENT LAB WORK RETIREMENT LABWORK RETIREMENT LAB WORK ARTERIAL EXAM ARTERIAL EXAM Reason for Visit Non-pressure ulcer o f left lower extremity with fat layer exposed Pain in left leg PVD (peripheral vascular disease) 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 PVD (peripheral vascular disease) Chief Complaint Admit Date RETIREMENT LAB WORK October 04, 2024 4 :00am RETIREMENT LAB WORK November 08, 2024 4:0 0am Chief Complaint Admit Date RETIREMENT LAB WORK October 04, 2024 4 :00am RETIREMENT LAB WORK November 08, 2024 4:0 0am gi January 24, 2025 9: 15pm Additional Source Comments INFORMATION SOURCE (unrecogn ized section and content) DATE CREATED AUTHOR [facility]18/2020 [facility] DATE CREATED AUTHOR AUTHOR'S ORGANIZ ATION 03/27/2025 [email or web address] DATE CREATED AUTHOR AUTHOR'S ORGANIZ ATION 04/06/2025 [facility] Goals (unrecognized section and content) Goals [...] 922 (Given - Provider: Kathryn Wilder RN) atorvastatin [...] dose on Fri01/30/25 at 2100, Until Discontinued 2107 (Given - Provider: Iliana Dean LPN) 08 (Given - Provider: Karine Sánchez RN) hydrophilic wound dressing (TRIAD) external paste Apply externally, 2 TIMES DAILY, First dose on Fri01/26/25 at 1030, Until Discontinued 903 (Given - Provider: Dana Hernández RN)2235 (Given - Provider: Claire Thomas LPN) 09 (Hold/Not Given - Provider: Kathryn Wilder RN - Reason: Not indicated)2106 (Given - Provider: Iliana Dean LPN) 08 (Given - Provider: Karine Sánchez RN)2100 (Due) nystatin (MYCOSTATIN) 100,000 unit/g powder Topical, 2 TIMES DAILY, First dose on Fri01/26/25 at 1030, Until Discontinued 903 (Given - Provider: Dana Hernández RN)2246 (Hold/Not Given - Provider: Claire Thomas LPN - Reason: Patient refused) 899 (Hold/Not Given - Provider: Kathryn Wilder RN - Reason: Not indicated)2106 (Given - Provider: Iliana Dean LPN) 829 (Given - Provider: Karine Sánchez RN)2100 (Due) pantoprazole (PROTONIX) tablet 40 mg, Oral, DAILY 30 MIN BEFORE BREAKFAST, First dose on Fri01/28/25 at 0830, Until Discontinued 09 (Given - Provider: Dana Hernández RN) 09 (Given - Provider: Kathryn Wilder RN) 08 (Given - Provider: Karine Sánchez RN) polyethylene glycol (MIRALAX) 17 g packet (CANCELED) 17 g, Oral, DAILY, First dose on Fri01/26/25 at 0900, Until Discontinued 903 (Hold/Not Given - Provider: Dana Hernández RN - Reason: Not indicated)1515 (AUG Hold - Provider: Se Adt - Reason: Patient Transfer)2055 (AUG Unhold - Provider: Aliza Hancock MD) 09 (Given - Provider: Kathryn Wilder, CASPER) 08 (Hold/Not Given - Provider: Karine Sánchez RN [...] 921 (Given - Provider: Kathryn Wilder RN) 08 (Hold/Not Given - Provider: Karine Sánchez RN - Reason: Patient refused) Reason for Visit (unrecogniz ed section and content) Reason Onset Date Comments Refill 02/23/2025 FOR RECORDS PERTAINING TO PATIENTS WHO ARE [...] BE BASED ON THE PRIMARY CLINICAL RECORDS. [employer] provides no warranty or guarantee of the accuracy or completeness of information in this document.
[2025-04-08 07:33] LABS: Anion Gap 6 (5-15); BUN 9 mg/dL (4-19); BUN/Creat Ratio 14.6 RATIO (10-20); Calcium,Total 8.2 mg/dL (7.6-11.0); Carbon Dioxide 29.3 mmol/L (21.0-32.0); Chloride 106 mmol/L (98-108); Glucose 90 mg/dL (70-99); Potassium 4.1 mmol/L (3.3-5.1)
== END ==
LOC: OLS.SWAL 05:00
PROVIDERS: PCP Internal Medicine; Visit Provider Internal Medicine
DX: I70.238 Atherosclerosis of native arteries of right leg with ulceration of other part of lower leg (principal); I10 Essential (primary) hypertension
CPT/HCPCS: 36415; 80048

== ENCOUNTER → 2025-04-25 04:00 | Outpatient (REF) | payer MEDICARE, MEDICAID, SELFPAY ==
--- OUTSIDE RECORDS SUMMARY | 2025-04-25 03:48 | XMS RPT_ITS | CCD ---
Author Organization [facility]ini[facility] Care Team Providers Care Staff Auditor Name Role Phone PAUL WEEKS CNP Primary [...] Unava ilcasey Weeks, Dr. Steve Emergency Provider Unavailable Primary Care Provider UnavailMONTSERRAT Gaines Attending [...] PAGE Admitting Unavailable ISAURO PAGE Attending Unavailable Gudla, Dianna Primary Care Unavailable Power Borges Attending Unavailable Gudla OLS, Dianna Attending Unavailable Gudla OLS, Dianna Referring Unavailable Gudla, Dianna Primary Care Unavailable Kalisetti, Karen Primary Care Unavailable Gudla [...] Propensity to adverse reactions (disorder) 9 Itching [facility] Repository (13 sources) Aspirin Drug Allergy 9 Itching [facility] (1 source) Aspirin Drug Allergy 5 [facility] Repository Medications Current Medications Medication Drug Class(es) Dates Sig (Normalized) Sig (Original) apixaban 5 mg oral tablet (10 sources) Factor Xa Inhibitor Start: 01-31-2025 take [...] Start: 02-14-2019 take 1 tablet by roz once daily Bp Defense Active 1 TABLET PO DAILY February 14, 2019 8:40pm Start: 02-14-2019 End: 01-24-2025 Bp Defense Discontinued 1 {t bl} PO DAILY February 14, 2019 12:00am January 24, 2025 9:20pm supplement Start: 02-14-2019 Bp Defense Act sosa 1 {tbl} PO DAILY February 14, 2019 12:00am Start: 02-14-2019 take 1 tablet by roz once daily Bp Defense Active 1 TABLET PO DAILY February 13, 2019 11:00pm Start: 02-14-2019 take 1 tablet by roz once daily Bp Defense Active 1 TABLET [...] January 24, 2025 12:00am polyethylene glycol 3350 46032 mg powder for oral solution (10 sources) Osmotic Laxative Start: 01-31-2025 17 g, [...] at 0900, Until Discontinued polyethylene glycol 3350 150304 mg / potassium chloride 2970 mg / sodium bicarbonate 6740 mg / sodium chloride 5860 mg / sodium sulfate 97090 mg powder for oral solution (11 sources) Osmotic Laxative Start: 02-09-2025 End: 02-14-2026 polyethylene glycol (GOLYTELY) oral solution Use as directed prior to colonoscopy 4000 mL 02/14/2025 02/14/2026 Active sennosides, nursing home 8.6 mg oral tablet (9 sources) Start: 01-26-2025 End: 05-02-2025 take 1 [...] 01-27-2025 Intravenous, ONCE PRN, Start ing on Jesi 01/27/25 at 1559, Until Fri01/27/25 at 1610 hydroCHLOROthiazide 12.5 mg oral capsule (13 sources) Thiazide Diuretic Start: 02-14-2019 End: 02-15-2019 take 1 capsule by mouth once daily Hydrochlorothiazide 12.5 MG capsule Discontinued 12.5 mg PO DAILY February 14, 2019 12:00February 15, 2019 11:19am bp hydroCHLOROthiazide 12.5 mg [...] at 0900, Until Discontinued polyethylene glycol 3350 053340 mg / potassium chloride 1480 mg / sodium bicarbonate 5720 mg / sodium chloride 31595 mg powder for oral solution (2 sources) [...] 20 mEq, Intravenous, ONCE, 1 dose, On Fri01/27/25 at 1330, at 50 mL/hr Start: 01-24-2025 take 1 tablet by roz th once daily Potassium Chloride 20 mEq tablet,ER particles/crystals Active 20 meq PO DAILY January 24, 2025 12:00am Problems Problem Classification Problem Date Documented Da te Episodic/Chronic Acute posthemorrhagic anemia (10 sources) Acute posthemorrhagic anemia; Translations: [Acute posthemorrhagic anemia] Onset: 01-29-2025 01-29-2025 Episodic Aortic; peripheral; 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; 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 [...] dementia, and amnestic and other cognitive disorders (8 sources) Dementia; Translations: [Mild dementia without behavioral disturbance, psychotic disturbance, mood disturbance, or anxiety, unspecified dementia type] Onset: 08-31-2024 01-29-2025 Chronic Disorders of lipid metabolism (12 sources) Hyperlipidemia; Translations: [Hyperlipidemia, unspecified] Onset: 07-09-2024 01-29-2025 Chronic Essential hypertension (15 sources) Essential (primary) hypertension; Translations: [Hypertensive disorder] Onset: 11-24-2019 06-15-2021 Chronic Gastrointestinal hemorrhage (19 sources) Rectal hemorrhage; Translations: [Hemorrhage of anus and rectum] Onset: 01-25-2025 01-25-2025 Episodic Open wounds of extremities (13 sources) Open wound of lower limb; Translations: [Laceration without foreign body, left lower leg, initial encounter] 02-15-2019 Episodic Other aftercare (1 source) Anticoagulant control - finding; Translations: [supervisor intermediates (current) use of 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s] 01-25-2025 Episodic Other aftercare (12 sources) Long-term current use of 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; Translations: [supervisor intermediates (current) use of 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s] Onset: 01-29-2025 01-31-2025 Episodic Other aftercare (1 source) Encounter for follow-up examination after completed treatment for conditions other than malignant neoplasm; Translations: [Encounter for follow-up examination after completed treatment for conditions other than malignant neoplasm] Onset: 04-12-2025 Episodic Other and unspecified benign neoplasm (1 [...] 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, unspecified] Onset: 04-12-2025 Chronic Other screening for suspected conditions (not mental disorders or infectious disease) (2 sources) Encounter for screening for lipoid disorders; Translations: [Electrocardiogram abnormal] Onset: 11-24-2019 01-27-2025 Episodic Peripheral and visceral atherosclerosis (19 sources) Peripheral vascular disease; Translations: [Peripheral vascular disease, unspecified] 01-07-2020 Chronic Phlebitis; thrombophlebitis and thromboembolism (11 sources) H/O: Deep vein thrombosis; Translations: [Personal history of other venous thrombosis and embolism] Onset: 01-29-2025 01-25-2025 Episodic Residual codes; unclassified (13 sources) Bilateral lower limb edema; Translations: [Localized edema] 01-21-2020 Episodic Residual codes; unclassified (1 source) Edema, unspecified; Translations: [Edema, unspecified] Onset: 04-12-2025 Episodic Skin and subcutaneous tissue infections (20 sources) Cellulitis of lower limb; Translations: [Cellulitis of left lower limb] 01-21-2020 Episodic Transient cerebral ischemia (13 sources) Transient cerebral ischemia; Translations: [Transient cerebral ischemic attack, unspecified] 12-24-2019 Chronic Results Test Name Value Interpretation Reference Range Facility Basic Metabolic Profile (BMP )on 04-08-2025 BUN/CRE 14.6 RATIO Normal 10-20 [facility] Comment on above: Order Comment: 155 Performed By: #### L 500.4100, L501.5200, L500.4050 #### [facility] [address] [place], [address] Calcium [Mass/Vol] 8.2 mg/dL Normal 7.6-11.0 [place] Comment on above: Order Comment: 155 Performed By: #### L 500.4100, L501.5200, [id number] #### [facility] [address] [place], [address] Chloride [Moles/Vol] 106 mmol/L Normal 98-108 [facility] Comment on above: Order Comment: 155 Performed By: #### L 500.4100, L501.5200, [id number] #### [facility] [address] [place], [address] CO2 [Moles/Vol] 29.3 mmol/L Normal 21.0-32.0 [facility] Comment on above: Order Comment: 155 Performed By: #### L 500.4100, L501.5200, [id number] #### [facility] [address] [place], [address] Creatinine [Mass/Vol] 0.60 mg/dL Low 0.70-1.20 [facility] Comment on above: Order Comment: 155 Performed By: #### L 500.4100, L501.5200, [id number] #### [facility] [address] [place], [address] GAP 6 Normal 5-15 [facility] Comment on above: Order Comment: 155 Performed By: #### L 500.4100, L501.5200, [id number] #### [facility] [address] [place], [address] GFR/1.73 sq M.predicted among non-blacks MDRD (S/P/Bld) [Vol rate/Area] 90 mL/min/{1.73_m2} Normal >60 [facility] Comment on above: Order Comment: 155 Result Comment: mL/m in/1.73m2 CKD-EPI Creatinine Equation (2020) Performed By: #### L 500.4100, L501.5200, L500.4050 #### [facility] [address] [place], [address] Glucose [Mass/Vol] 90 mg/dL Normal 70-99 [place] Comment on above: Order Comment: 155 Performed By: #### L 500.4100, L501.5200, [id number] #### [facility] [address] [place], [address] Potassium [Moles/Vol] 4.1 mmol/L Normal 3.3-5.1 [facility] Comment on above: Order Comment: 155 Performed By: #### L 500.4100, L501.5200, [id number] #### [facility] [address] [place], [address] Sodium [Moles/Vol] 141 mmol/L Normal 133-145 [place] Comment on above: Order Comment: 155 Performed By: #### L 500.4100, L501.5200, [id number] #### [facility] [address] [place], [address] Urea nitrogen [Mass/Vol] 9 mg/dL Normal 4-19 [facility] Comment on above: Order Comment: 155 Performed By: #### L 500.4100, L501.5200, [id number] #### [facility] [address] [place], [address] CBC-Complete Blood Cnt No Di ffon 04-04-2025 Erythrocyte distribution width (RBC) [Ratio] 20.2 % High 11.6-14.6 [facility] Comment on above: Order Comment: 155 Performed By: #### L 500.4100, L501.5200, L500.4050 #### [facility] [address] [place], [address] Hematocrit (Bld) [Volume fraction] 30.1 % Low 37-47 [facility] Comment on above: Order Comment: 155 Performed By: #### L 500.4100, L501.5200, [id number] #### [facility] [address] [place], [address] Hemoglobin (Bld) [Mass/Vol] 8.1 g/dL Low 12.0-15.0 [facility] Comment on above: Order Comment: 155 Performed By: #### L 500.4100, L501.5200, [id number] #### [facility] [address] [place], [address] MCH (RBC) [Entitic mass] 17.9 pg Low 27.0-32.0 [facility] Comment on above: Order Comment: 155 Performed By: #### L 500.4100, L501.5200, [id number] #### [facility] [address] [place], [address] MCHC (RBC) [Mass/Vol] 26.9 g/dL Low 32-36 [facility] Comment on above: Order Comment: 155 Performed By: #### L 500.4100, L501.5200, [id number] #### [facility] [address] [place], [address] MCV (RBC) [Entitic vol] 66.6 fL Low 81-99 [facility] Comment on above: Order Comment: 155 Performed By: #### L 500.4100, L501.5200, [id number] #### [facility] [address] [place], [address] Platelet mean volume (Bld) [Entitic vol] 9.7 fL Normal 6.2-12.0 [facility] Comment on above: Order Comment: 155 Performed By: #### L 500.4100, L501.5200, [id number] #### [facility] [address] [place], [address] Platelets (Bld) [#/Vol] 448 10*3/uL Normal 150-450 [facility] Comment on above: Order Comment: 155 Performed By: #### L 500.4100, L501.5200, [id number] #### [facility] [address] [place], [address] RBC (Bld) [#/Vol] 4.52 10*6/uL Normal 4.2-5.4 [facility] Comment on above: Order Comment: 155 Performed By: #### L 500.4100, L501.5200, [id number] #### [facility] [address] [place], [address] RDW SD 47.5 fl High 35.1-43.9 [facility] Comment on above: Order Comment: 155 Performed By: #### L 500.4100, L501.5200, [id number] #### [facility] [address] [place], [address] WBC (Bld) [#/Vol] 6.6 10*3/uL Normal 4.4-11.0 [facility] Comment on above: Order Comment: 155 Performed By: #### L 500.4100, L501.5200, [id number] #### [facility] [address] [place], [address] Basic Metabolic Profile (BMP )on 03-30-2025 BUN/CRE 9.6 RATIO Low - [facility] Comment on above: Order Comment: 155 Performed By: #### L 500.4100, L501.5200, [id number] #### [facility] [address] [place], [address] Calcium [Mass/Vol] 8.1 mg/dL Normal 7.6-11.0 [facility] Comment on above: Order Comment: 155 Performed By: #### L 500.4100, L501.5200, [id number] #### [facility] [address] [place], [address] Chloride [Moles/Vol] 108 mmol/L Normal 98-108 [facility] Comment on above: Order Comment: 155 Performed By: #### L 500.4100, L501.5200, [id number] #### [facility] [address] [place], [address] CO2 [Moles/Vol] 26.7 mmol/L Normal 21.0-32.0 [facility] Comment on above: Order Comment: 155 Performed By: #### L 500.4100, L501.5200, [id number] #### [facility] [address] [place], [address] Creatinine [Mass/Vol] 0.62 mg/dL Low 0.70-1.20 [facility] Comment on above: Order Comment: 155 Performed By: #### L 500.4100, L501.5200, [id number] #### [facility] [address] [place], [address] GAP 7 Normal 5-15 [facility] Comment on above: Order Comment: 155 Performed By: #### L 500.4100, L501.5200, [id number] #### [facility] [address] [place], [address] GFR/1.73 sq M.predicted among non-blacks MDRD (S/P/Bld) [Vol rate/Area] 89 mL/min/{1.73_m2} Normal >60 [facility] Comment on above: Order Comment: 155 Result Comment: mL/m in/1.73m2 CKD-EPI Creatinine Equation (2020) Performed By: #### L 500.4100, L501.5200, [id number] #### [facility] [address] [place], [address] Glucose [Mass/Vol] 89 mg/dL Normal 70-99 [place] Comment on above: Order Comment: 155 Performed By: #### L 500.4100, L501.5200, [id number] #### [facility] [address] [place], [address] Potassium [Moles/Vol] 3.8 mmol/L Normal 3.3-5.1 [facility] Comment on above: Order Comment: 155 Performed By: #### L 500.4100, L501.5200, [id number] #### [facility] [address] [place], [address] Sodium [Moles/Vol] 142 mmol/L Normal 133-145 [place] Comment on above: Order Comment: 155 Performed By: #### L 500.4100, L501.5200, [id number] #### [facility] [address] [place], [address] Urea nitrogen [Mass/Vol] 6 mg/dL Normal 4-19 [facility] Comment on above: Order Comment: 155 Performed By: #### L 500.4100, L501.5200, [id number] #### [facility] [address] [place], [address] CBC-Complete Blood Cnt No Di ffon 03-30-2025 Erythrocyte distribution width (RBC) [Ratio] 19.9 % High 11.6-14.6 [facility] Comment on above: Order Comment: 155 Performed By: #### L 500.4100, L501.5200, [id number] #### [facility] [address] [place], [address] Hematocrit (Bld) [Volume fraction] 27.0 % Low 37-47 [facility] Comment on above: Order Comment: 155 Performed By: #### L 500.4100, L501.5200, [id number] #### [facility] [address] [place], [address] Hemoglobin (Bld) [Mass/Vol] 7.3 g/dL Low 12.0-15.0 [facility] Comment on above: Order Comment: 155 Performed By: #### L 500.4100, L501.5200, [id number] #### [facility] [address] [place], [address] MCH (RBC) [Entitic mass] 18.1 pg Low 27.0-32.0 [facility] Comment on above: Order Comment: 155 Performed By: #### L 500.4100, L501.5200, L500.4050 #### [facility] [address] [place], [address] MCHC (RBC) [Mass/Vol] 27.0 g/dL Low 32-36 [facility] Comment on above: Order Comment: 155 Performed By: #### L 500.4100, L501.5200, [id number] #### [facility] [address] [place], [address] MCV (RBC) [Entitic vol] 67.0 fL Low 81-99 [facility] Comment on above: Order Comment: 155 Performed By: #### L 500.4100, L501.5200, [id number] #### [facility] [address] [place], [address] Platelet mean volume (Bld) [Entitic vol] 10.0 fL Normal 6.2-12.0 [facility] Comment on above: Order Comment: 155 Performed By: #### L 500.4100, L501.5200, [id number] #### [facility] [address] [place], [address] Platelets (Bld) [#/Vol] 282 10*3/uL Normal 150-450 [facility] Comment on above: Order Comment: 155 Performed By: #### L 500.4100, L501.5200, [id number] #### [facility] [address] [place], [address] RBC (Bld) [#/Vol] 4.03 10*6/uL Low 4.2-5.4 [facility] Comment on above: Order Comment: 155 Performed By: #### L 500.4100, L501.5200, [id number] #### [facility] [address] [place], [address] RDW SD 47.3 fl High 35.1-43.9 [facility] Comment on above: Order Comment: 155 Performed By: #### L 500.4100, L501.5200, [id number] #### [facility] [address] [place], [address] WBC (Bld) [#/Vol] 5.4 10*3/uL Normal 4.4-11.0 [facility] Comment on above: Order Comment: 155 Performed By: #### L 500.4100, L501.5200, [id number] #### [facility] [address] [place], [address] Pro- Brain NATRIURETIC PEPTI Kel 03-30-2025 Natriuretic peptide B (Bld) [Mass/Vol] 180 pg/mL Normal <=1800 [facility] Comment on above: Order Comment: 155 Result Comment: Hear t Failure Unlikely: < 300 pg/mL Heart Failure Likely < 50 Years: > 450 pg/mL 50-75 Years: > 900 pg/mL >75 Years: > 1800 pg/mL Performed By: #### L 500.4100, L501.5200, L500.4050 #### [facility] [address] [place], [address] Basic Metabolic Profile (BMP )on 02-16-2025 BUN/CRE 10.6 RATIO Normal 10-20 [facility] Comment on above: Order Comment: 155 Performed By: #### L 500.4100, L501.5200, [id number] #### [facility] [address] [place], [address] Calcium [Mass/Vol] 8.7 mg/dL Normal 7.6-11.0 [place] Comment on above: Order Comment: 155 Performed By: #### L 500.4100, L501.5200, [id number] #### [facility] [address] [place], [address] Chloride [Moles/Vol] 107 mmol/L Normal 98-108 [facility] Comment on above: Order Comment: 155 Performed By: #### L 500.4100, L501.5200, [id number] #### [facility] [address] [place], [address] CO2 [Moles/Vol] 23.8 mmol/L Normal 21.0-32.0 [facility] Comment on above: Order Comment: 155 Performed By: #### L 500.4100, L501.5200, [id number] #### [facility] [address] [place], [address] Creatinine [Mass/Vol] 0.62 mg/dL Low 0.70-1.20 [facility] Comment on above: Order Comment: 155 Performed By: #### L 500.4100, L501.5200, [id number] #### [facility] [address] [place], [address] GAP 11 Normal 5-15 [facility] Comment on above: Order Comment: 155 Performed By: #### L 500.4100, L501.5200, [id number] #### [facility] [address] [place], [address] GFR/1.73 sq M.predicted among non-blacks MDRD (S/P/Bld) [Vol rate/Area] 89 mL/min/{1.73_m2} Normal >60 [facility] Comment on above: Order Comment: 155 Result Comment: mL/m in/1.73m2 CKD-EPI Creatinine Equation (2020) Performed By: #### L 500.4100, L501.5200, L500.4050 #### [facility] [address] [place], [address] Glucose [Mass/Vol] 93 mg/dL Normal 70-99 [facility] Comment on above: Order Comment: 155 Performed By: #### L 500.4100, L501.5200, [id number] #### [facility] [address] [place], [address] Potassium [Moles/Vol] 4.3 mmol/L Normal 3.3-5.1 [facility] Comment on above: Order Comment: 155 Performed By: #### L 500.4100, L501.5200, L500.4050 #### [facility] [address] [place], [address] Sodium [Moles/Vol] 141 mmol/L Normal 133-145 [place] Comment on above: Order Comment: 155 Performed By: #### L 500.4100, L501.5200, [id number] #### [facility] [address] [place], [address] Urea nitrogen [Mass/Vol] 7 mg/dL Normal 4-19 [facility] Comment on above: Order Comment: 155 Performed By: #### L 500.4100, L501.5200, [id number] #### [facility] [address] [place], [address] CBC-Complete Blood Cnt No Di ffon 02-16-2025 Erythrocyte distribution width (RBC) [Ratio] 19.4 % High 11.6-14.6 [facility] Comment on above: Order Comment: 155 Performed By: #### L 500.4100, L501.5200, L500.4050 #### [facility] [address] [place], [address] Hematocrit (Bld) [Volume fraction] 27.4 % Low 37-47 [facility] Comment on above: Order Comment: 155 Performed By: #### L 500.4100, L501.5200, [id number] #### [facility] [address] [place], [address] Hemoglobin (Bld) [Mass/Vol] 7.7 g/dL Low 12.0-15.0 [facility] Comment on above: Order Comment: 155 Performed By: #### L 500.4100, L501.5200, L500.4050 #### [facility] [address] [place], [address] MCH (RBC) [Entitic mass] 21.1 pg Low 27.0-32.0 [facility] Comment on above: Order Comment: 155 Performed By: #### L 500.4100, L501.5200, L500.4050 #### [facility] [address] [place], [address] MCHC (RBC) [Mass/Vol] 28.1 g/dL Low 32-36 [facility] Comment on above: Order Comment: 155 Performed By: #### L 500.4100, L501.5200, [id number] #### [facility] [address] [place], [address] MCV (RBC) [Entitic vol] 75.1 fL Low 81-99 [facility] Comment on above: Order Comment: 155 Performed By: #### L 500.4100, L501.5200, [id number] #### [facility] [address] [place], [address] Platelet mean volume (Bld) [Entitic vol] 9.2 fL Normal 6.2-12.0 [facility] Comment on above: Order Comment: 155 Performed By: #### L 500.4100, L501.5200, L500.4050 #### [facility] [address] [place], [address] Platelets (Bld) [#/Vol] 462 10*3/uL High 150-450 [facility] Comment on above: Order Comment: 155 Performed By: #### L 500.4100, L501.5200, [id number] #### [facility] [address] [place], [address] RBC (Bld) [#/Vol] 3.65 10*6/uL Low 4.2-5.4 [facility] Comment on above: Order Comment: 155 Performed By: #### L 500.4100, L501.5200, [id number] #### [facility] [address] [place], [address] RDW SD 52.3 fl High 35.1-43.9 [facility] Comment on above: Order Comment: 155 Performed By: #### L 500.4100, L501.5200, [id number] #### [facility] [address] [place], [address] WBC (Bld) [#/Vol] 6.9 10*3/uL Normal 4.4-11.0 [facility] Comment on above: Order Comment: 155 Performed By: #### L 500.4100, L501.5200, [id number] #### [facility] [address] [place], [address] Basic Metabolic Profile (BMP )on 02-09-2025 BUN/CRE 10.8 RATIO Normal 10-20 [facility] Comment on above: Order Comment: 155 Performed By: #### L 500.4100, L501.5200, [id number] #### [facility] [address] [place], [address] Calcium [Mass/Vol] 8.6 mg/dL Normal 7.6-11.0 [facility] Comment on above: Order Comment: 155 Performed By: #### L 500.4100, L501.5200, [id number] #### [facility] [address] [place], [address] Chloride [Moles/Vol] 106 mmol/L Normal 98-108 [facility] Comment on above: Order Comment: 155 Performed By: #### L 500.4100, L501.5200, [id number] #### [facility] [address] [place], [address] CO2 [Moles/Vol] 25.8 mmol/L Normal 21.0-32.0 [facility] Comment on above: Order Comment: 155 Performed By: #### L 500.4100, L501.5200, [id number] #### [facility] [address] [place], [address] Creatinine [Mass/Vol] 0.70 mg/dL Normal 0.70-1.20 [facility] Comment on above: Order Comment: 155 Performed By: #### L 500.4100, L501.5200, [id number] #### [facility] [address] [place], [address] GAP 9 Normal 5-15 [facility] Comment on above: Order Comment: 155 Performed By: #### L 500.4100, L501.5200, [id number] #### [facility] [address] [place], [address] GFR/1.73 sq M.predicted among non-blacks MDRD (S/P/Bld) [Vol rate/Area] 86 mL/min/{1.73_m2} Normal >60 [facility] Comment on above: Order Comment: 155 Result Comment: mL/m in/1.73m2 CKD-EPI Creatinine Equation (2020) Performed By: #### L 500.4100, L501.5200, L500.4050 #### [facility] [address] [place], [address] Glucose [Mass/Vol] 104 mg/dL High 70-99 [facility] Comment on above: Order Comment: 155 Performed By: #### L 500.4100, L501.5200, [id number] #### [facility] [address] [place], [address] Potassium [Moles/Vol] 4.8 mmol/L Normal 3.3-5.1 [facility] Comment on above: Order Comment: 155 Performed By: #### L 500.4100, L501.5200, [id number] #### [facility] [address] [place], [address] Sodium [Moles/Vol] 141 mmol/L Normal 133-145 [facility] Comment on above: Order Comment: 155 Performed By: #### L 500.4100, L501.5200, [id number] #### [facility] [address] [place], [address] Urea nitrogen [Mass/Vol] 8 mg/dL Normal 4-19 [facility] Comment on above: Order Comment: 155 Performed By: #### L 500.4100, L501.5200, L500.4050 #### [facility] [address] [place], [address] CBC-Complete Blood Cnt No Di ffon 02-09-2025 Erythrocyte distribution width (RBC) [Ratio] 19.7 % High 11.6-14.6 [facility] Comment on above: Order Comment: 155 Performed By: #### L 500.4100, L501.5200, L500.4050 #### [facility] [address] [place], [address] Hematocrit (Bld) [Volume fraction] 26.2 % Low 37-47 [facility] Comment on above: Order Comment: 155 Performed By: #### L 500.4100, L501.5200, L500.4050 #### [facility] [address] [place], [address] Hemoglobin (Bld) [Mass/Vol] 7.7 g/dL Low 12.0-15.0 [facility] Comment on above: Order Comment: 155 Performed By: #### L 500.4100, L501.5200, L500.4050 #### [facility] [address] [place], [address] MCH (RBC) [Entitic mass] 22.2 pg Low 27.0-32.0 [facility] Comment on above: Order Comment: 155 Performed By: #### L 500.4100, L501.5200, L500.4050 #### [facility] [address] [place], [address] MCHC (RBC) [Mass/Vol] 29.4 g/dL Low 32-36 [facility] Comment on above: Order Comment: 155 Performed By: #### L 500.4100, L501.5200, L500.4050 #### [facility] [address] [place], [address] MCV (RBC) [Entitic vol] 75.5 fL Low 81-99 [facility] Comment on above: Order Comment: 155 Performed By: #### L 500.4100, L501.5200, L500.4050 #### [facility] [address] [place], [address] Platelet mean volume (Bld) [Entitic vol] 9.5 fL Normal 6.2-12.0 [facility] Comment on above: Order Comment: 155 Performed By: #### L 500.4100, L501.5200, L500.4050 #### [facility] [address] [place], [address] Platelets (Bld) [#/Vol] 559 10*3/uL High 150-450 [facility] Comment on above: Order Comment: 155 Performed By: #### L 500.4100, L501.5200, L500.4050 #### [facility] [address] [place], [address] RBC (Bld) [#/Vol] 3.47 10*6/uL Low 4.2-5.4 [facility] Comment on above: Order Comment: 155 Performed By: #### L 500.4100, L501.5200, L500.4050 #### [facility] [address] [place], [address] RDW SD 53.1 fl High 35.1-43.9 [facility] Comment on above: Order Comment: 155 Performed By: #### L 500.4100, L501.5200, L500.4050 #### [facility] [address] [place], [address] WBC (Bld) [#/Vol] 8.7 10*3/uL Normal 4.4-11.0 [place] Comment on above: Order Comment: 155 Performed By: #### L 500.4100, L501.5200, L500.4050 #### [facility] [address] [place], [address] CBC-Complete Blood Cnt No Di ffon 02-02-2025 Erythrocyte distribution width (RBC) [Ratio] 19.4 % High 11.6-14.6 [facility] Comment on above: Order Comment: 155 Performed By: #### L 500.4100, L501.5200, L500.4050 #### [facility] [address] [place], [address] Hematocrit (Bld) [Volume fraction] 27.5 % Low 37-47 [facility] Comment on above: Order Comment: 155 Performed By: #### L 500.4100, L501.5200, L500.4050 #### [facility] [address] [place], [address] Hemoglobin (Bld) [Mass/Vol] 8.0 g/dL Low 12.0-15.0 [facility] Comment on above: Order Comment: 155 Performed By: #### L 500.4100, L501.5200, L500.4050 #### [facility] [address] [place], [address] MCH (RBC) [Entitic mass] 22.5 pg Low 27.0-32.0 [facility] Comment on above: Order Comment: 155 Performed By: #### L 500.4100, L501.5200, L500.4050 #### [facility] [address] [place], [address] MCHC (RBC) [Mass/Vol] 29.1 g/dL Low 32-36 [facility] Comment on above: Order Comment: 155 Performed By: #### L 500.4100, L501.5200, L500.4050 #### [facility] [address] [place], [address] MCV (RBC) [Entitic vol] 77.5 fL Low 81-99 [facility] Comment on above: Order Comment: 155 Performed By: #### L 500.4100, L501.5200, L500.4050 #### [facility] [address] [place], [address] Platelet mean volume (Bld) [Entitic vol] 10.5 fL Normal 6.2-12.0 [facility] Comment on above: Order Comment: 155 Performed By: #### L 500.4100, L501.5200, L500.4050 #### [facility] [address] [place], [address] Platelets (Bld) [#/Vol] 376 10*3/uL Normal 150-450 [facility] Comment on above: Order Comment: 155 Performed By: #### L 500.4100, L501.5200, L500.4050 #### [facility] [address] [place], [address] RBC (Bld) [#/Vol] 3.55 10*6/uL Low 4.2-5.4 [facility] Comment on above: Order Comment: 155 Performed By: #### L 500.4100, L501.5200, L500.4050 #### [facility] [address] [place], [address] RDW SD 54.1 fl High 35.1-43.9 [facility] Comment on above: Order Comment: 155 Performed By: #### L 500.4100, L501.5200, L500.4050 #### [facility] [address] [place], [address] WBC (Bld) [#/Vol] 11.8 10*3/uL High 4.4-11.0 [facility] Comment on above: Order Comment: 155 Performed By: #### L 500.4100, L501.5200, L500.4050 #### [facility] [address] [place], [address] Comprehensive Metabolic Prof [facility] 02-02-2025 Albumin [Mass/Vol] 3.4 g/dL Normal 3.4-4.8 [place] Comment on above: Order Comment: 155 Performed By: #### L 500.4100, L501.5200, L500.4050 #### [facility] [address] [place], [address] Albumin/Globulin [Mass ratio] 1.3 {ratio} Normal 0.9-2.4 [facility] Comment on above: Order Comment: 155 Performed By: #### L 500.4100, L501.5200, L500.4050 #### [facility] [address] [place], [address] ALK PHOS 102 U/L Normal 35-104 [facility] Comment on above: Order Comment: 155 Performed By: #### L 500.4100, L501.5200, L500.4050 #### [facility] [address] [place], [address] ALT [Catalytic activity/Vol] 12 U/L Normal <=34 [facility] Comment on above: Order Comment: 155 Performed By: #### L 500.4100, L501.5200, L500.4050 #### [facility] [address] [place], [address] AST [Catalytic activity/Vol] 27 U/L Normal <=31 [facility] Comment on above: Order Comment: 155 Performed By: #### L 500.4100, L501.5200, L500.4050 #### [facility] [address] [place], [address] Bilirubin [Mass/Vol] 1.49 mg/dL High 0.00-1.30 [facility] Comment on above: Order Comment: 155 Performed By: #### L 500.4100, L501.5200, L500.4050 #### [facility] [address] [place], [address] BUN/CRE 12.3 RATIO Normal 10-20 [facility] Comment on above: Order Comment: 155 Performed By: #### L 500.4100, L501.5200, L500.4050 #### [facility] [address] [place], [address] Calcium [Mass/Vol] 8.5 mg/dL Normal 7.6-11.0 [place] Comment on above: Order Comment: 155 Performed By: #### L 500.4100, L501.5200, L500.4050 #### [facility] [address] [place], [address] Chloride [Moles/Vol] 102 mmol/L Normal 98-108 [facility] Comment on above: Order Comment: 155 Performed By: #### L 500.4100, L501.5200, L500.4050 #### [facility] [address] [place], [address] CO2 [Moles/Vol] 23.0 mmol/L Normal 21.0-32.0 [facility] Comment on above: Order Comment: 155 Performed By: #### L 500.4100, L501.5200, L500.4050 #### [facility] [address] [place], [address] Creatinine [Mass/Vol] 0.71 mg/dL Normal 0.70-1.20 [facility] Comment on above: Order Comment: 155 Performed By: #### L 500.4100, L501.5200, L500.4050 #### [facility] [address] [place], [address] GAP 11 Normal 5-15 [facility] Comment on above: Order Comment: 155 Performed By: #### L 500.4100, L501.5200, L500.4050 #### [facility] [address] [place], [address] GFR/1.73 sq M.predicted among non-blacks MDRD (S/P/Bld) [Vol rate/Area] 84 mL/min/{1.73_m2} Normal >60 [facility] Comment on above: Order Comment: 155 Result Comment: mL/m in/1.73m2 CKD-EPI Creatinine Equation (2020) Performed By: #### L 500.4100, L501.5200, L500.4050 #### [facility] [address] [place], [address] Globulin (S) [Mass/Vol] 2.6 g/dL Normal 2.2-4.2 [facility] Comment on above: Order Comment: 155 Performed By: #### L 500.4100, L501.5200, L500.4050 #### [facility] [address] [place], [address] Glucose [Mass/Vol] 101 mg/dL High 70-99 [place] Comment on above: Order Comment: 155 Performed By: #### L 500.4100, L501.5200, L500.4050 #### [facility] [address] [place], [address] Potassium [Moles/Vol] 4.1 mmol/L Normal 3.3-5.1 [facility] Comment on above: Order Comment: 155 Performed By: #### L 500.4100, L501.5200, L500.4050 #### [facility] [address] [place], [address] Sodium [Moles/Vol] 136 mmol/L Normal 133-145 [place] Comment on above: Order Comment: 155 Performed By: #### L 500.4100, L501.5200, L500.4050 #### [facility] [address] [place], [address] T PROT 6.0 g/dL Normal 5.9-8.4 [facility] Comment on above: Order Comment: 155 Performed By: #### L 500.4100, L501.5200, L500.4050 #### [facility] [address] [place], [address] Urea nitrogen [Mass/Vol] 9 mg/dL Normal 4-19 [facility] Comment on above: Order Comment: 155 Performed By: #### L 500.4100, L501.5200, L500.4050 #### [facility] [address] [place], [address] Vitamin B12on 02-02-2025 Cobalamin (Vitamin B12) [Mass/Vol] 650 pg/mL Normal 180-914 [facility] Comment on above: Order Comment: 155 Performed By: #### L 500.4100, L501.5200, L500.4050 #### [facility] [address] [place], [address] Vitamin D,25 Hydroxyon 02-02 Vitamin D 25-OH 46.4 ng/mL Normal 30-100 [facility] Comment on above: Order Comment: 155 Result Comment: Alessandra min D Status Deficiency: <20 ng/mL (50nmol/L) Insufficiency: 20-30 ng/mL (50-75 nmol/L) Sufficiency: 30-100 ng/mL (75-250 nmol/L) Toxicity: >100 ng/mL (>250 nmol/L) Performed By: #### L 500.4100, L501.5200, L500.4059 #### [facility] [address] [place], [address] XA ADDITIONAL VESSELS (KATYA)o n 02-01-2025 XA [...] and the sheath exchanged for a 5 Qatari hemostatic sheath. Under fluoroscopic guidance, a 5 Qatari Sos-2 catheter was used to catheterize the superior mesenteric artery. SMA angiography was performed. The catheter was then repositioned into the celiac artery and celiac angiography was performed. The 5 Qatari diagnostic sheath was exchanged over wire for a 6 Q[place]ari long angled sheath. Sheath was advanced into [...] agree with the resident's interpretation. Normal [facility] XA ART EMBO NON HEMORRHAGE ( [...] and the sheath exchanged for a 5 [place]ari hemostatic sheath. Under fluoroscopic guidance, a 5 [place] Sos-2 catheter was used to catheterize the superior mesenteric artery. SMA angiography was performed. The catheter was then repositioned into the celiac artery and celiac angiography was performed. The 5 Qatari diagnostic sheath was exchanged over wire for a 6 Q[place] long angled sheath. Sheath was advanced into [...] agree with the resident's interpretation. Normal [facility] XA CELIAC ARTERY (KATYA)on XA CELIAC [...] and the sheath exchanged for a 5 Qatari hemostatic sheath. Under fluoroscopic guidance, a 5 Qatari Sos-2 catheter was used to catheterize the superior mesenteric artery. SMA angiography was performed. The catheter was then repositioned into the celiac artery and celiac angiography was performed. The 5 Qatari diagnostic sheath was exchanged over wire for a 6 Qatari long angled sheath. Sheath was advanced into [...] (Bld) [#/Vol] 0.06 10*3/uL Normal 0.00-0.20 [facility] Comment on above: Performed By: #### Aruna Olivas, CH8 #### [facility] [address] [place] [address], Basophils/100 WBC (Bld) 0.5 % Normal <=1.9 [facility] Comment on above: Performed By: #### Aruna Olivas, CH8 #### [facility] [address] [place] [address], Eosinophils (Bld) [#/Vol] 0.15 10*3/uL Normal 0.00-0.70 [facility] Comment on above: Performed By: #### Aruna Olivas, CH8 #### [facility] [address] [place] [address], Eosinophils/100 WBC (Bld) 1.4 % Normal 0.1-4.0 [facility] Comment on above: Performed By: #### Aruna Olivas, CH8 #### [facility] [address] [place] [address], Erythrocyte distribution width (RBC) [Ratio] 21.7 % High 11.5-14.5 [facility] Comment on above: Performed By: #### Aruna Olivas, CH8 #### [facility] [address] [place] [address], Hematocrit (Bld) [Volume fraction] 25.5 % Low 36.0-46.0 [facility] Comment on above: Performed By: #### Aruna Olivas, CH8 #### [facility] [address] [place] [address], Hemoglobin (Bld) [Mass/Vol] 8.1 g/dL Low 12.0-15.0 [facility] Comment on above: Performed By: #### Aruna Olivas, CH8 #### [facility] [address] [place] [address], Lymphocytes (Bld) [#/Vol] 1.13 10*3/uL Normal 1.00-4.80 [facility] Comment on above: Performed By: #### Aruna Olivas, CH8 #### S PATH[facility] LABORATORY [address] [place] [address], Lymphocytes/100 WBC (Bld) 10.6 % Low 24.0-44.0 [facility] Comment on above: Performed By: #### Aruna Olivas, CH8 #### [facility] [address] [place] [address], MCH (RBC) [Entitic mass] 23.3 pg Low 26.0-34.0 [facility] Comment on above: Performed By: #### Aruna Olivas, CH8 #### [facility] [address] [place] [address], MCHC (RBC) [Mass/Vol] 31.8 g/dL Low 32.0-35.9 [facility] Comment on above: Performed By: #### Aruna Olivas, CH8 #### [facility] [address] [place] [address], MCV (RBC) [Entitic vol] 73 fL Low 80-100 [facility] Comment on above: Performed By: #### Aruna Olivas, CH8 #### [facility] [address] [place] [address], Monocytes (Bld) [#/Vol] 1.76 10*3/uL High 0.20-1.00 [facility] Comment on above: Performed By: #### Aruna Olivas, CH8 #### S [facility] [address] [place] [address], Monocytes/100 WBC (Bld) 16.5 % High 2.0-11.0 [facility] Comment on above: Performed By: #### Aruna Olivas, CH8 #### [facility] [address] [place], [place], Neutrophils (Bld) [#/Vol] 7.56 10*3/uL Normal 1.50-8.00 [facility] Comment on above: Performed By: #### Aruna Olivas, CH8 #### [facility] [address] [place], [place], Neutrophils/100 WBC (Bld) 71.0 % Normal 31.0-76.0 [facility] Comment on above: Performed By: #### Aruna Olivas, CH8 #### [facility] [address] [place], [place], Platelet mean volume (Bld) [Entitic vol] 8.1 fL Normal 7.5-11.2 [facility] Comment on above: Performed By: #### Aruna Olivas, CH8 #### [facility] [address] [place], [place], Platelets (Bld) [#/Vol] 209 10*3/uL Normal 150-400 [facility] Comment on above: Performed By: #### Aruna Olivas, CH8 #### [facility] [address] [place], [place], RBC (Bld) [#/Vol] 3.47 10*6/uL Low 4.00-5.20 [facility] Comment on above: Performed By: #### Aruna Olivas, CH8 #### [facility] [address] [place], [place], WBC (Bld) [#/Vol] 10.6 10*3/uL Normal 4.5-11.5 [facility] Comment on above: Performed By: #### Aruna Olivas, CH8 #### [facility] [address] [place], [place], Discharge Planning Noteon Social Services Manager Authentication Interface Message Text SW/CM aware that patient meets criteria for HHC. Spoke with Pts son over the phone to discuss dispo. Patient open and agreeable to HHC. CM provided Pt son the quality and resource use measure data from available post-acute (PAC) providers, that best align with the patient's treatment goals and preferences from the medicare.gov compare site for [facility]. [place] [employer] Choice was provided to the patient/patient consumer sales representative. CM to follow up with accepting agencies. CM to continue to follow. ADDENDUM: CM spoke with Debra Campbell from [facility] and she states that the patient can receive therapy under Medicare part B from PT at her AL if she so wishes. CM will continue to follow additional discharge planning needs. ADDENDUM: CM spoke with Pt son and notified him that patient would be discharge back to her AL today. Son stated that he would be at to bean picker pt and transport her back to [facility] after 5pm. CM will continue to follow. Breanna Wilder MSN, RN Inpatient Manager Audio W Cell [phone] Desk [phone] Normal [facility] MANUAL DIFF AND MORPHon 08-2 Acanthocytes LM Ql (Bld) Few [facility] Embarrass cells LM Ql (Bld) Few [facility] Cells Counted Total (Bld) [#] [facility] Microcytes Ql (Bld) Slight [facility] Ovalocytes LM Ql (Bld) Few [facility] RBC.hypochromic/100 RBC Auto (Bld) Moderate [facility] Schistocytes LM Ql (Bld) Few [facility] ACANTHOCYTES Few Normal [facility] Comment on above: Performed By: #### Aruna Olivas CH8 #### [facility] [address] [place] [address], CARLOS CELLS Few Normal [facility] Comment on above: Performed By: #### Aruna Olivas CH8 #### [facility] [address] [place] [address], CELLS COUNTED TOTAL # IN BLOOD Normal [facility] Comment on above: Performed By: #### Aruna Olivas CH8 #### [facility] [address] [place] [address], FRAGMENTED RBC Few Normal [facility] Comment on above: Performed By: #### Aruna Olivas CH8 #### [facility] [address] [place] [address], HYPOCHROMASIA Moderate Normal [facility] Comment on above: Performed By: #### M Deisy, CH8 #### S PATHOLOGY LABORATORY [address] [place], [place], MICROCYTOSIS Slight Normal [facility] Comment on above: Performed By: #### M Deisy, CH8 #### [facility] [address] [place], [place], OVALOCYTES Few Normal [facility] Comment on above: Performed By: #### M Deisy, CH8 #### [facility] [address] [place], [place], No Panel Informationon 01-31 [facility] Assessment AND Plan Noteon 0 01-30-2025 Social Services Manager Authentication Interface Message Text --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 Whittaker or until AC restarted. Normal [facility] XATAation Interface Message Text --trend CBC daily, transfuse [...] resume anticoagulation after polyp biopsy Normal [facility] RateElert Authentication Interface Message Text --chronic. stable. continue home statin Normal [facility] BASIC METABOLIC PANELon 08-2 Anion gap [Moles/Vol] 11 mmol/L Normal 10-20 [facility] Comment on above: Performed By: #### M G, CH8 ####S PATHOLOGY [id number] [place], [place], Calcium [Mass/Vol] 8.1 mg/dL Low 8.6-10.3 [facility] Comment on above: Performed By: #### Aruna Olivas, CH8 ####S PATHOLOGY [id number] [place], [place], Chloride [Moles/Vol] 106 mmol/L Normal 98-107 [facility] Comment on above: Performed By: #### Aruna Olivas, CH8 ####S PATHOLOGY [id number] [place], CO2 [Moles/Vol] 27 mmol/L Normal 21-31 [facility] Comment on above: Performed By: #### Aruna Olivas, CH8 ####S PATHOLOGY [id number] [place], Creatinine [Mass/Vol] 0.51 mg/dL Low 0.60-1.20 [facility] Comment on above: Performed By: #### Aruna Olivas, CH8 ####S PATHOLOGY [id number] [place], ESTIMATED GFR (CKD-EPI) 93 mL/min/1.73sqm Normal >=60 [facility] Comment on above: Result Comment: 2020 [...] Inclusion of Race in Diagnosing Kidney Disease. [place] Journal of Kidney Diseases 2021;79(2):268-88.e1. 2. N Engl J Med 1 Vol. 385 Issue 19 Pages 7545-7468 Performed By: #### Aruna Olivas, CH8 ####S PATHOLOGY [id number] [place], Glucose [Mass/Vol] 94 mg/dL Normal 74-109 [facility] Comment on above: Performed By: #### Aruna Olivas, CH8 ####S PATHOLOGY [id number] [place], Potassium [Moles/Vol] 4.1 mmol/L Normal 3.5-5.0 [facility] Comment on above: Performed By: #### Aruna Olivas, CH8 ####[facility] [id number] [place], Sodium [Moles/Vol] 140 mmol/L Normal 136-145 [facility] Comment on above: Performed By: #### Aruna Olivas, CH8 ####[facility] [id number] [place], Urea nitrogen [Mass/Vol] 6 mg/dL Low 7-25 [facility] Comment on above: Performed By: #### Aruna Olivas, CH8 ####S PATHOLOGY [id number] [place], [place], Basic metabolic 2000 panelon 01-30-2025 Anion gap [Moles/Vol] 11 mmol/L 10 - 20 [facility] [Mass/Vol] 8.1 mg/dL Low 8.6 - 10. 3 mg/dL [facility] Chloride [Moles/Vol] 106 mmol/L 98 - 10 7 mmol/L [facility] CO2 [Moles/Vol] 27 mmol/L 21 - 31 mmol/L [facility] Creatinine [Mass/Vol] 0.51 mg/dL Low 0.60 - 1.20 mg/dL [facility] GFR/1.73 sq M.predicted CKD-EPI (S/P/Bld) [Vol rate/Area] 93 - PINF [facility] Comment on above: 2020 CKD EPI [...] Inclusion of Race in Diagnosing Kidney Disease. [place] Journal of Kidney Diseases 202;79(2):268-88.e1. 2. N Engl J Med 2021 Vol. 385 Issue 19 Pages 8160-2366 Glucose [Mass/Vol] 94 mg/dL 74 - 109 [...] [#/Vol] 9.6 10*3/uL 4.5 - 11.5 K/uL [facility] WITH DIFFERENTIALon 01-08 Basophils (Bld) [#/Vol] 0.05 10*3/uL Normal 0.00-0.20 [facility] Comment on above: Performed By: ###Roger Olivas CH8 #### [facility] [address] [place] [address], Basophils/100 WBC (Bld) 0.5 % Normal <=1.9 [facility] Comment on above: Performed By: ###Roger Olivas CH8 #### [facility] [address] [place] [address], Eosinophils (Bld) [#/Vol] 0.13 10*3/uL Normal 0.00-0.70 [facility] Comment on above: Performed By: ###Roger Olivas CH8 #### [facility] [address] [place] [address], Eosinophils/100 WBC (Bld) 1.4 % Normal 0.1-4.0 [facility] Comment on above: Performed By: ###Roger Olivas CH8 #### [facility] [address] [place] [address], Erythrocyte distribution width (RBC) [Ratio] 20.9 % High 11.5-14.5 [facility] Comment on above: Performed By: ###Roger Olivas CH8 #### [facility] [address] [place] [address], Hematocrit (Bld) [Volume fraction] 24.2 % Low 36.0-46.0 [facility] Comment on above: Performed By: #### Aruna Olivas, CH8 #### [facility] [address] [place] [address], Hemoglobin (Bld) [Mass/Vol] 7.9 g/dL Low 12.0-15.0 [facility] Comment on above: Performed By: #### Aruna Olivas, CH8 #### [facility] [facility] [address] [place] [address], Lymphocytes (Bld) [#/Vol] 1.02 10*3/uL Normal 1.00-4.80 [facility] Comment on above: Performed By: #### Aruna Olivas, CH8 #### [facility]OR[facility] [address] [place] [address], Lymphocytes/100 WBC (Bld) 10.6 % Low 24.0-44.0 [facility] Comment on above: Performed By: #### Aruna Olivas, CH8 #### [facility] [address] [place] [address], MCH (RBC) [Entitic mass] 23.3 pg Low 26.0-34.0 [facility] Comment on above: Performed By: #### Aruna Olivas, CH8 #### [facility] [address] [place] [address], MCHC (RBC) [Mass/Vol] 32.7 g/dL Normal 32.0-35.9 [facility] Comment on above: Performed By: #### Aruna Olivas, CH8 #### [facility] [address] [place] [address], MCV (RBC) [Entitic vol] 71 fL Low 80-100 [facility] Comment on above: Performed By: #### Aruna Olivas, CH8 #### [facility] [address] [place] [address], Monocytes (Bld) [#/Vol] 1.42 10*3/uL High 0.20-1.00 [facility] Comment on above: Performed By: #### Aurna Olivas, CH8 #### S PATHOLOGY LABORATORY [address] [place], [place], Monocytes/100 WBC (Bld) 14.8 % High 2.0-11.0 [facility] Comment on above: Performed By: #### Aruna Olivas, CH8 #### S PATHOLOGY LABORATORY [address] [place], [place], Neutrophils (Bld) [#/Vol] 6.94 10*3/uL Normal 1.50-8.00 [facility] Comment on above: Performed By: #### Aruna Olivas, CH8 #### [facility] [address] [place], [place], Neutrophils/100 WBC (Bld) 72.6 % Normal 31.0-76.0 [facility] Comment on above: Performed By: #### Aruna Olivas, CH8 #### [facility] [address] [place], [place], Platelet mean volume (Bld) [Entitic vol] 8.5 fL Normal 7.5-11.2 [facility] Comment on above: Performed By: #### Aruna Olivas, CH8 #### [facility] [address] [place], [place], Platelets (Bld) [#/Vol] 206 10*3/uL Normal 150-400 [facility] Comment on above: Performed By: #### Aruna Olivas, CH8 #### [facility] [address] [place], [place], RBC (Bld) [#/Vol] 3.39 10*6/uL Low 4.00-5.20 [facility] Comment on above: Performed By: #### Aruna Olivas, CH8 #### [facility] [address] [place], [place], WBC (Bld) [#/Vol] 9.6 10*3/uL Normal 4.5-11.5 [facility] Comment on above: Performed By: #### Aruna Olivas, CH8 #### [facility] [address] [place] [address], MAGNESIUMon 01-30-2025 Interpretation and review of laboratory results Normal [facility] Magnesium [Mass/Vol] 1.9 mg/dL 1.9 - 2 .7 mg/dL [facility] Magnesium [Mass/Vol] 1.9 mg/dL Normal 1.9-2.7 [facility] Comment on above: Performed By: #### Aruna Olivas, CH8 ####S PATHOLOGY [id number] [place], [place], MANUAL DIFF AND MORPHon 01-08 Carlos cells LM Ql (Bld) Few [facility] Cells Counted Total (Bld) [#] [facility] Microcytes Ql (Bld) Slight [facility] Ovalocytes LM Ql (Bld) Few [facility] RBC.hypochromic/100 RBC Auto (Bld) Moderate [facility] Schistocytes LM Ql (Bld) Few [facility] CARLOS CELLS Few Normal [facility] Comment on above: Performed By: #### Aruna Olivas, CH8 #### S PATHOLOGY LABORATORY [address] [place] [address], CELLS COUNTED TOTAL # IN BLOOD Normal [facility] Comment on above: Performed By: #### Aruna Olivas, CH8 #### S PATHOLOGY LABORATORY [address] [place] [address], FRAGMENTED RBC Few Normal [facility] Comment on above: Performed By: #### Aruna Olivas, CH8 #### S PATHOLOGY LABORATORY [address] [place] [address], HYPOCHROMASIA Moderate Normal [facility] Comment on above: Performed By: #### Aruna Olivas, CH8 #### S PATHOLOGY LABORATORY [address] [place] [address], MICROCYTOSIS Slight Normal [facility] Comment on above: Performed By: #### Aruna Olivas, CH8 #### S PATHOLOGY LABORATORY [address] [place] [address], OVALOCYTES Few Normal [facility] Comment on above: Performed By: #### Aruna Olivas, CH8 #### S PATHOLOGY LABORATORY [address] [place] [address], No Panel Informationon 01-30 [facility] Assessment AND Plan Noteon 0 8-23-2025 Social Services Manager Authentication Interface Message Text --trend CBC daily, [...] will need to restart Eliquis Normal [facility] Social Services Manager Authentication Interface Message Text --chronic. stable. 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 Whittaker or until Eliquis restarted. Normal [facility] BASIC METABOLIC PANELon 08-2 Anion gap [Moles/Vol] 9 mmol/L Low 10-20 [facility] Comment on above: Performed By: ###Roger Olivas CH8 #### S PATHOLOGY LABORATORY [address] [place] [address], Calcium [Mass/Vol] 7.9 mg/dL Low 8.6-10.3 [facility] Comment on above: Performed By: ###Roger Olivas CH8 #### S PATHOLOGY LABORATORY [address] [place] [address], Chloride [Moles/Vol] 112 mmol/L High 98-107 [facility] Comment on above: Performed By: #### Aruna Olivas CH8 #### [facility] [address] [place] [address], CO2 [Moles/Vol] 24 mmol/L Normal 21- [facility] Comment on above: Performed By: ###Roger Olivas CH8 #### S PATHOLOGY LABORATORY [address] [place] [address], Creatinine [Mass/Vol] 0.52 mg/dL Low 0.60-1.20 [facility] Comment on above: Performed By: #### Aruna Olivas CH8 #### S PATHOLOGY LABORATORY [address] [place] [address], ESTIMATED GFR (CKD-EPI) 93 mL/min/1.73sqm Normal >=60 [facility] Comment [...] Inclusion of Race in Diagnosing Kidney Disease. [place] Journal of Kidney Diseases 2021;79(2):268-88.e1. 2. N Engl J Med 2020 Vol. 385 Issue 19 Pages [phone] Performed By: ###Roger Olivas CH8 #### S PATHOLOGY LABORATORY [address] [place] [address], Glucose [Mass/Vol] 105 mg/dL Normal 74-109 [facility] Comment on above: Performed By: ###Roger Olivas CH8 #### S PATHOLOGY LABORATORY [address] [place] [address], Potassium [Moles/Vol] 3.4 mmol/L Low 3.5-5.0 [facility] Comment on above: Performed By: ###Roger Olivas CH8 #### S PATHOLOGY LABORATORY [address] [place] [address], Sodium [Moles/Vol] 142 mmol/L Normal 136-145 [facility] Comment on above: Performed By: #### Aruna Olivas CH8 #### S PATHOLOGY LABORATORY [address] [place] [address], Urea nitrogen [Mass/Vol] 5 mg/dL Low 7-25 [facility] Comment on above: Performed By: ###Roger Olivas CH8 #### S PATHOLOGY LABORATORY [address] [place] [address], Basic metabolic 2000 panelon 01-29-2025 Anion gap [...] Inclusion of Race in Diagnosing Kidney Disease. [place] Journal of Kidney Diseases 202;79(2):268-88.e1. 2. N Engl J Med 1 Vol. 385 Issue 19 Pages [phone] Glucose [Mass/Vol] 105 mg/dL 74 - 109 [...] (Bld) [#/Vol] 0.05 10*3/uL Normal 0.00-0.20 [facility] Comment on above: Performed By: #### M G, CH8 #### [facility] [address] [place], [place], Basophils/100 WBC (Bld) 0.7 % Normal <=1.9 [facility] Comment on above: Performed By: #### Aruna Olivas, CH8 #### [facility] [address] [place], Eosinophils (Bld) [#/Vol] 0.19 10*3/uL Normal 0.00-0.70 [facility] Comment on above: Performed By: #### Aruna Olivas, CH8 #### [facility] [address] [place], Eosinophils/100 WBC (Bld) 2.5 % Normal 0.1-4.0 [facility] Comment on above: Performed By: #### Aruna Olivas, CH8 #### [facility] [address] [place], [place], Erythrocyte distribution width (RBC) [Ratio] 20.9 % High 11.5-14.5 [facility] Comment on above: Performed By: #### Aruna Olivas, CH8 #### [facility] [address] [place], Hematocrit (Bld) [Volume fraction] 24.9 % Low 36.0-46.0 [facility] Comment on above: Performed By: #### Aruna Olivas, CH8 #### [facility] [address] [place], Hemoglobin (Bld) [Mass/Vol] 7.8 g/dL Low 12.0-15.0 [facility] Comment on above: Performed By: #### Aruna Olivas, CH8 #### [facility] [address] [place], Lymphocytes (Bld) [#/Vol] 1.00 10*3/uL Normal 1.00-4.80 [facility] Comment on above: Performed By: #### Aruna Olivas, CH8 #### [facility] [address] [place], Lymphocytes/100 WBC (Bld) 12.8 % Low 24.0-44.0 [facility] Comment on above: Performed By: #### Aruna Olivas, CH8 #### [facility] [address] [place] [address], MCH (RBC) [Entitic mass] 23.2 pg Low 26.0-34.0 [facility] Comment on above: Performed By: #### Aruna Olivas, CH8 #### [facility] [address] [place], MCHC (RBC) [Mass/Vol] 31.4 g/dL Low 32.0-35.9 [facility] Comment on above: Performed By: #### Aruna Olivas, CH8 #### [facility] [address] [place], MCV (RBC) [Entitic vol] 74 fL Low 80-100 [facility] Comment on above: Performed By: #### Aruna Olivas, CH8 #### [facility] [address] [place] [address], Monocytes (Bld) [#/Vol] 1.14 10*3/uL High 0.20-1.00 [facility] Comment on above: Performed By: #### Aruna Olivas, CH8 #### [facility] [address] [place] [address], Monocytes/100 WBC (Bld) 14.6 % High 2.0-11.0 [facility] Comment on above: Performed By: #### Aruna Olivas, CH8 #### [facility] [address] [place] [address], Neutrophils (Bld) [#/Vol] 5.44 10*3/uL Normal 1.50-8.00 [facility] Comment on above: Performed By: #### Aruna Olivas, CH8 #### [facility] [address] [place] [address], Neutrophils/100 WBC (Bld) 69.5 % Normal 31.0-76.0 [facility] Comment on above: Performed By: #### Aruna Olivas, CH8 #### [facility] [address] [place] [address], Platelet mean volume (Bld) [Entitic vol] 8.2 fL Normal 7.5-11.2 [facility] Comment on above: Performed By: #### Aruna Olivas, [id number] #### [facility] [address] [place] [address], Platelets (Bld) [#/Vol] 174 10*3/uL Normal 150-400 [facility] Comment on above: Performed By: #### Aruna Olivas, [id number] #### [facility] [address] [place] [address], RBC (Bld) [#/Vol] 3.36 10*6/uL Low 4.00-5.20 [facility] Comment on above: Performed By: #### Aruna Olivas, [id number] #### [facility] [address] [place] [address], WBC (Bld) [#/Vol] 7.8 10*3/uL Normal 4.5-11.5 [facility] Comment on above: Performed By: #### Aruna Olivas, [id number] #### [facility] [address] [place] [address], MAGNESIUMon 01-29-2025 Interpretation and review of laboratory results Normal [facility] Magnesium [Mass/Vol] 1.9 mg/dL 1.9 - 2 .7 mg/dL [facility] Magnesium [Mass/Vol] 1.9 mg/dL Normal 1.9-2.7 [facility] Comment on above: Performed By: #### Aruna Olivas, [id number] #### [facility] [address] [place] [address], MANUAL DIFF AND MORPHon 01-08 Acanthocytes LM Ql (Bld) Moderate [facility] Cells Counted Total (Bld) [#] [facility] Microcytes Ql (Bld) Slight [facility] Ovalocytes LM Ql (Bld) Few [facility] RBC.hypochromic/100 RBC Auto (Bld) Moderate [facility] Schistocytes LM Ql (Bld) Few [facility] ACANTHOCYTES Moderate Normal [facility] Comment on above: Performed By: #### Aruna Olivas, CH8 #### [facility] [address] [place] [address], CELLS COUNTED TOTAL # IN BLOOD Normal [facility] Comment on above: Performed By: #### M G, CH8 #### S PATHOLOGY LABORATORY [address] [place] [address], FRAGMENTED RBC Few Normal [facility] Comment on above: Performed By: #### M G, CH8 #### S PATHOLOGY LABORATORY [address] [place], [place], HYPOCHROMASIA Moderate Normal [facility] Comment on above: Performed By: #### M G, CH8 #### S PATHOLOGY LABORATORY [address] [place], MICROCYTOSIS Slight Normal [facility] Comment on above: Performed By: #### M G, CH8 #### S PATHOLOGY LABORATORY [address] [place] [address], OVALOCYTES Few Normal [facility] Comment on above: Performed By: #### M G, CH8 #### [facility]OR[facility] [address] [place] [address], No Panel InformationOrdered By: Sayra Dudley on 01-29-2025 [facility] No Panel Informationon 01-29 [facility] Transfer Noteon 01-29-2025 Social Services Manager Authentication Interface Message Text . TRANSFER NOTE Patient: Ms. 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 Patient who currently resides [facility] where she was found to have significant bright red blood in her stool following multiple episodes of diarrhea on the morning of 01/24. They were transferred to the [facility] ED later that day for further evaluation. [...] Aspirin 81 mg [] Voiding trial Disposition[facility] Inpatient CONSULTS: IP GASTROENTEROLOGY CONSULT Outpatient f/u: PCP F/u angiography in 3 months PROBLEM LIST: Rectal bleed s/p colonoscopy 01/27 Hepatic artery aneurysm s/p coiling 01/28 Nelda James DO Family Medicine, PGY2 FM Pager: [phone] Normal [facility] BASIC METABOLIC PANELon 08 Anion gap [Moles/Vol] 11 mmol/L Normal 10-20 [facility] Comment on above: Performed By: #### DAMON Hamilton ####[facility] [id number] [place], [address] Calcium [Mass/Vol] 7.8 mg/dL Low 8.6-10.3 [facility] Comment on above: Performed By: #### DAMON Hamilton ####[facility] [id number] [place], [place], Chloride [Moles/Vol] 113 mmol/L High 98-107 [facility] Comment on above: Performed By: #### Aruna Olivas CH8 ####S PATHOLOGY [id number] [place], CO2 [Moles/Vol] 21 mmol/L Normal 21-31 [facility] Comment on above: Performed By: #### Aruna Olivas CH8 ####S PATHOLOGY [id number] [place], Creatinine [Mass/Vol] 0.56 mg/dL Low 0.60-1.20 [facility] Comment on above: Performed By: #### Aruna Olivas CH8 ####[facility] PATHOLOG[facility] [id number] [place], ESTIMATED GFR (CKD-EPI) 91 mL/min/1.73sqm Normal >=60 [facility] Comment [...] Inclusion of Race in Diagnosing Kidney Disease. [place] Journal of Kidney Diseases 2021;79(2):268-88.e1. 2. N Engl J Med 2020 Vol. 385 Issue 19 Pages [phone] Performed By: #### Aruna Olivas CH8 ####S PATHOLOGY [id number] [place], Glucose [Mass/Vol] 135 mg/dL High 74-109 [facility] Comment on above: Performed By: #### Aruna Olivas CH8 ####S PATHOLOGY [id number] [place], Potassium [Moles/Vol] 3.2 mmol/L Low 3.5-5.0 [facility] Comment on above: Performed By: #### M G, CH8 ####S PATHOLOGY [id number] [place], Sodium [Moles/Vol] 142 mmol/L Normal 136-145 [facility] Comment on above: Performed By: #### Aruna Olivas, CH8 ####S PATHOLOGY [id number] [place], Urea nitrogen [Mass/Vol] 7 mg/dL Normal 7-25 [facility] Comment on above: Performed By: #### Aruna Olivas, CH8 ####[facility] PATHOLOGY [id number] [place], [place], Basic metabolic 2000 panelon 01-28-2025 Anion [...] Inclusion of Race in Diagnosing Kidney Disease. [place] Journal of Kidney Diseases 202;79(2):268-88.e1. 2. N Engl J Med 1 Vol. 385 Issue 19 Pages 5291-2761 Glucose [Mass/Vol] 135 mg/dL High 74 - [...] (Bld) [#/Vol] 0.10 10*3/uL Normal 0.00-0.20 [facility] Comment on above: Performed By: #### FREDERICK YOUNG ####[facility] PATHOLOGY [id number] [place], Basophils/100 WBC (Bld) 1.3 % Normal <=1.9 [facility] Comment on above: Performed By: ###FREDERICK BRUNSON ####[facility] PATHOLOGY [id number] [place] [address], Eosinophils (Bld) [#/Vol] 0.22 10*3/uL Normal 0.00-0.70 [facility] Comment on above: Performed By: ###FREDERICK BRUNSON ####[facility] PATHOLOGY [id number] [place], Eosinophils/100 WBC (Bld) 2.8 % Normal 0.1-4.0 [facility] Comment on above: Performed By: ###FREDERICK BRUNSON ####[facility] PATHOLOGY [id number] [place], Erythrocyte distribution width (RBC) [Ratio] 20.5 % High 11.5-14.5 [facility] Comment on above: Performed By: #### FREDERICK YOUNG ####[facility] PATHOLOGY [id number] [place], Hematocrit (Bld) [Volume fraction] 23.7 % Low 36.0-46.0 [facility] Comment on above: Performed By: #### FREDERICK YOUNG ####[facility] PATHOLOGY [id number] [place], Hemoglobin (Bld) [Mass/Vol] 7.4 g/dL Low 12.0-15.0 [facility] Comment on above: Performed By: ###FREDERICK BURNSON ####[facility] PATHOLOGY [id number] [place], Lymphocytes (Bld) [#/Vol] 0.92 10*3/uL Low 1.00-4.80 [facility] Comment on above: Performed By: ###FREDERICK BRUNSON ####[facility] PATHOLOGY [id number] [place] [address], Lymphocytes/100 WBC (Bld) 11.5 % Low 24.0-44.0 [facility] Comment on above: Performed By: ###FREDERICK BRUNSON ####[facility] PATHOLOGY [id number] [place] [address], MCH (RBC) [Entitic mass] 23.2 pg Low 26.0-34.0 [facility] Comment on above: Performed By: ###FREDERICK BRUNSON ####[facility] PATHOLOGY [id number] [place] [address], MCHC (RBC) [Mass/Vol] 31.3 g/dL Low 32.0-35.9 [facility] Comment on above: Performed By: ###FREDERICK BRUNSON ####[facility] PATHOLOGY [id number] [place], MCV (RBC) [Entitic vol] 74 fL Low 80-100 [facility] Comment on above: Performed By: ###FREDERICK BRUNSON ####[facility] PATHOLOGY [id number] [place], Monocytes (Bld) [#/Vol] 1.05 10*3/uL High 0.20-1.00 [facility] Comment on above: Performed By: ###FREDERICK BRUNSON ####[facility] PATHOLOGY [id number] [place], Monocytes/100 WBC (Bld) 13.1 % High 2.0-11.0 [facility] Comment on above: Performed By: ###FREDERICK BRUNSON ####[facility] PATHOLOGY [id number] [place], Neutrophils (Bld) [#/Vol] 5.71 10*3/uL Normal 1.50-8.00 [facility] Comment on above: Performed By: ###FREDERICK BRUNSON ####[facility] PATHOLOGY [id number] [place], Neutrophils/100 WBC (Bld) 71.3 % Normal 31.0-76.0 [facility] Comment on above: Performed By: ###FREDERICK BRUNSON ####[facility] PATHOLOGY [id number] [place], Platelet mean volume (Bld) [Entitic vol] 8.2 fL Normal 7.5-11.2 [facility] Comment on above: Performed By: ###FREDERICK BRUNSON ####[facility] PATHOLOGY [id number] [place], Platelets (Bld) [#/Vol] 177 10*3/uL Normal 150-400 [facility] Comment on above: Performed By: ###FREDERICK BRUNSON ####[facility] PATHOLOG[facility] [id number] [place], RBC (Bld) [#/Vol] 3.21 10*6/uL Low 4.00-5.20 [facility] Comment on above: Performed By: ###FREDERICK BRUNSON ####[facility] PATHOLOGY [id number] [place], WBC (Bld) [#/Vol] 8.0 10*3/uL Normal 4.5-11.5 [facility] Comment on above: Performed By: ###FREDERICK BRUNSON ####S PATHOLOGY [id number] [place], Care Plan Noteon 01-28-2025 Social Services Manager Authentication Interface Message Text Spoke with Pt's [...] to what IR decides. Family verbalized understanding. DO Celine Whitehead [facility] Consultson 01-28-2025 Social Services Manager Authentication Interface Message Text Dietitian vs DietaryTech: Dietary TechDiet Cylinder Inspector Nutrition Screening Reason for visit: LOS 5 [...] up. Will continue to follow, Ava Hays Manager Licensing Pager#[phone] Time spent on patient care: 15 minutes [1] No past medical history on file. Normal [facility] Discharge Planning Noteon Social Services Manager Authentication Interface Message Text SW/CM aware that patient meets criteria for SNF. Met with pt son via phone call discuss dispo. Patient open and agreeable to SNF placement. CM/SW provided pt son the quality and resource use measure data from available post-acute (PAC) providers, that best align with the patient's treatment goals and preferences from the medicare.gov compare site for SNF. [place] of Choice was provided to the patient/patient consumer sales representative. For SNF: RN/MD to complete [employer]. Signature page placed on patient's chart for MD signature. [id number] initiated in [facility] Pt will require a pre-cert/LOC. SW/CM will follow up for choices. Referral sent to [facility] which is the sister SNF for [facility]. CM will continue to follow Breanna VALLEJO, RN Inpatient Manager Audio 3F/7W Cell [phone] Desk [phone] Normal [facility] MAGNESIUMon 01-28-2025 Interpretation and review of laboratory results Normal [facility] Magnesium [Mass/Vol] 1.9 mg/dL 1.9 - 2 .7 mg/dL [facility] Magnesium [Mass/Vol] 1.9 mg/dL Normal 1.9-2.7 [facility] Comment on above: Performed By: #### M RODRIGUEZ Olivas8 ####[facility] PATH[facility] [id number] [place], [place], MANUAL DIFF AND MORPHon 01-08 Acanthocytes LM Ql (Bld) Few [facility] Embarrass cells LM Ql (Bld) Few [facility] Cells Counted Total (Bld) [#] [facility] Microcytes Ql (Bld) Slight [facility] Ovalocytes LM Ql (Bld) Few [facility] RBC.hypochromic/100 RBC Auto (Bld) Moderate [facility] Schistocytes LM Ql (Bld) Few [facility] ACANTHOCYTES Few Normal [facility] Comment on above: Performed By: #### C MD ELLEIFF ####[facility] PATHOLOGY [id number] [place], [place], CARLOS CELLS Few Normal [facility] Comment on above: Performed By: ###FREDERICK BRUNSON ####[facility] PATHOLOGY [id number] [place], [place], CELLS COUNTED TOTAL # IN BLOOD Normal The [facility] Comment on above: Performed By: #### FREDERICK YOUNG ####[facility] PATHOLOGY [id number] [place], FRAGMENTED RBC Few Normal [facility] Comment on above: Performed By: #### FREDERICK YOUNG ####[facility] PATHOLOGY [id number] [place], HYPOCHROMASIA Moderate Normal [facility] Comment on above: Performed By: ###FREDERICK BRUNSON ####[facility] PATHOLOGY [id number] [place], MICROCYTOSIS Slight Normal [facility] Comment on above: Performed By: #### FREDERICK YOUNG ####S PATHOLOGY [id number] [place], OVALOCYTES Few Normal [facility] Comment on above: Performed By: #### FREDERICK YOUNG ####S PATHOLOGY [id number] [place], [place], No Panel Informationon 01-28 [facility] PROTHROMBIN TIME AND INRon 0 01-28-2025 INR Coag (PPP) [Relative time] 1.05 {INR} 0.90 - 1.10 [facility] Interpretation and review of laboratory results Normal [facility] PT Coag (PPP) [Time] 11.8 s [facility] INR Coag (PPP) [Relative time] 1.05 {INR} Normal 0.90-1.10 [facility] Comment on above: Performed By: ###DAMON Glover #### S PATHOLOGY LABORATORY [address] [place], [place], PT Coag (PPP) [Time] 11.8 s Normal 9.7-12.9 [facility] Comment on above: Performed By: ###DAMON Glover #### S PATHOLOGY LABORATORY [address] [place], [address] Progress Noteson 01-28-2025 Social Services Manager Authentication Interface Message Text 1200- offered patient to get up and walk and to get into chair. Patient refused. Patient family insisting patient get up and move and walk. Attempted this with patient, patient refused at this time. Patient educated importance of movement and getting up, patient also educated on NPO status. Patient aware and agreeable to NPO. Normal [facility] Social Services Manager Authentication Interface Message Text Division of Pulmonary, Critical Care, and Sleep Medicine Stepdown Unit ATTENDING NOTE Code Status: Full Code DPOAHC/NOK: Aliza Hurtado (Son) Admission Date and Time: 01/25/2025 12:28 PM LOS: 3 days I saw and evaluated . Ely Hurtado. I personally obtained javed and [...] Pulmonary, Critical Care, AND Sleep Medicine [facility] PIN [id number] [1] Social History Tobacco Use Smoking Status Not on file Smokeless Tobacco Not on file Normal [facility] BASIC METABOLIC PANELon 08-2 Anion gap [Moles/Vol] 13 mmol/L Normal 10-20 [facility] Comment on above: Performed By: #### Aruna Olivas CH8 #### S PATHOLOGY LABORATORY [address] [place] [address], Calcium [Mass/Vol] 7.8 mg/dL Low 8.6-10.3 [facility] Comment on above: Performed By: #### DAMON Hamilton #### [facility] [address] [place] [address], Chloride [Moles/Vol] 112 mmol/L High 98-107 [facility] Comment on above: Performed By: #### Aruna Olivas CH8 #### S PATHOLOGY LABORATORY [address] [place] [address], CO2 [Moles/Vol] 23 mmol/L Normal 21-31 [facility] Comment on above: Performed By: #### Aruna Olivas, CH8 #### S PATHOLOGY LABORATORY [address] [place] [address], Creatinine [Mass/Vol] 0.54 mg/dL Low 0.60-1.20 [facility] Comment on above: Performed By: #### Aruna Olivas, RODRIGUEZ8 #### [facility] PATHOLOGY LABORATORY [address] [place], [place], ESTIMATED GFR (CKD-EPI) 92 mL/min/1.73sqm Normal >=60 [facility] Comment on above: Result Comment: 2020 [...] Inclusion of Race in Diagnosing Kidney Disease. [place] Journal of Kidney Diseases 202;79(2):268-88.e1. 2. N Engl J Med 2020 Vol. 385 Issue 19 Pages 5721-7206 Performed By: #### Aruna Olivas CH8 #### S PATHOLOGY LABORATORY [address] [place], [place], Glucose [Mass/Vol] 68 mg/dL Low 74-109 [facility] Comment on above: Performed By: #### Aruna Olivas CH8 #### S PATHOLOGY LABORATORY [address] [place] [address], Potassium [Moles/Vol] 3.2 mmol/L Low 3.5-5.0 [facility] Comment on above: Performed By: #### Aruna Olivas CH8 #### S PATHOLOGY LABORATORY [address] [place], [place], Sodium [Moles/Vol] 145 mmol/L Normal 136-145 [facility] Comment on above: Performed By: #### Aruna Olivas CH8 #### S PATHOLOGY LABORATORY [address] [place], [place], Urea nitrogen [Mass/Vol] 5 mg/dL Low 7-25 [facility] Comment on above: Performed By: #### M G, CH8 #### [facility] [address] [place] [address], [id number] Basic metabolic 2000 panelon 01-27-2025 Anion gap [Moles/Vol] 13 mmol/L 10 - 20 [facility] Calcium [Mass/Vol] 7.8 mg/dL Low 8.6 - 10. 3 mg/dL [facility] Chloride [Moles/Vol] 112 mmol/L High 98 - 10 7 mmol/L [facility] CO2 [Moles/Vol] 23 mmol/L 21 - 31 mmol/L [facility] Creatinine [Mass/Vol] 0.54 mg/dL Low 0.60 - 1.20 mg/dL [facility] GFR/1.73 sq M.predicted CKD-EPI (S/P/Bld) [Vol rate/Area] 92 - PINF [facility] Comment on above: 2020 CKD EPI Equatio n using Creatinine without Race Comment: Estimated glomerular filtration rate (eGFR) is calculated without a race coefficient. Values should be interpreted in the context of the patient's full clinical presentation. Reference: 1. Raul C, Bapaola M, Elizabeth DC, et al.. A Unifying Approach for GFR Estimation: Recommendations of the NKF-ASN Task Force on Reassessing the Inclusion of Race in Diagnosing Kidney Disease. [place] Journal of Kidney Diseases 202;79(2):268-88.e1. 2. N Engl J Med 1 Vol. 385 Issue 19 Pages 9662-7136 Glucose [Mass/Vol] 68 mg/dL Low 74 - [...] [facility] RBC (Bld) [#/Vol] 3.4 10*6/uL Low [facility] WBC (Bld) [#/Vol] 7.7 10*3/uL 4.5 - 11.5 K/uL [facility] CBC WITH DIFFERENTIALon 01-08 Basophils (Bld) [#/Vol] 0.04 10*3/uL Normal 0.00-0.20 [facility] Comment on above: Performed By: #### Aruna Olivas, CH8 #### [facility] PATHOLOGY LABORATORY [address] [place] [address], Basophils/100 WBC (Bld) 0.5 % Normal <=1.9 [facility] Comment on above: Performed By: #### Aruna Olivas, CH8 #### [facility] PATHOLOGY LABORATORY [address] [place] [address], Eosinophils (Bld) [#/Vol] 0.10 10*3/uL Normal 0.00-0.70 [facility] Comment on above: Performed By: #### Aruna Olivas, CH8 #### [facility] PATHOLOGY LABORATORY [address] [place] [address], Eosinophils/100 WBC (Bld) 1.3 % Normal 0.1-4.0 [facility] Comment on above: Performed By: #### Aruna Olivas, CH8 #### [facility] PATHOLOGY LABORATORY [address] [place] [address], Erythrocyte distribution width (RBC) [Ratio] 20.0 % High 11.5-14.5 [facility] Comment on above: Performed By: #### Aruna Olivas, CH8 #### [facility] PATHOLOGY LABORATORY [address] [place] [address], Hematocrit (Bld) [Volume fraction] 24.6 % Low 36.0-46.0 [facility] Comment on above: Performed By: #### Aruna Olivas, CH8 #### [facility] PATHOLOGY LABORATORY [address] [place], [place], Hemoglobin (Bld) [Mass/Vol] 7.9 g/dL Low 12.0-15.0 [facility] Comment on above: Performed By: #### Aruna Olivas, CH8 #### [facility] PATHOLOGY LABORATORY [address] [place] [address], Lymphocytes (Bld) [#/Vol] 0.83 10*3/uL Low 1.00-4.80 [facility] Comment on above: Performed By: #### Aruna Olivas, CH8 #### [facility] PATHOLOGY LABORATORY [address] [place], [place], Lymphocytes/100 WBC (Bld) 10.8 % Low 24.0-44.0 [facility] Comment on above: Performed By: #### Aruna Olivas, CH8 #### [facility] PATHOLOGY LABORATORY [address] [place], [place], MCH (RBC) [Entitic mass] 23.2 pg Low 26.0-34.0 [facility] Comment on above: Performed By: #### Aruna Olivas, CH8 #### [facility] PATHOLOGY LABORATORY [address] [place], [place], MCHC (RBC) [Mass/Vol] 32.1 g/dL Normal 32.0-35.9 [facility] Comment on above: Performed By: #### Aruna Olivas, CH8 #### [facility] PATHOLOGY LABORATORY [address] [place], [place], MCV (RBC) [Entitic vol] 72 fL Low 80-100 [facility] Comment on above: Performed By: #### Aruna Olivas, CH8 #### [facility] PATHOLOGY LABORATORY [address] [place], [place], Monocytes (Bld) [#/Vol] 0.92 10*3/uL Normal 0.20-1.00 [facility] Comment on above: Performed By: #### Aruna Olivas, CH8 #### [facility] PATHOLOGY LABORATORY [address] [place], [place], Monocytes/100 WBC (Bld) 11.9 % High 2.0-11.0 [facility] Comment on above: Performed By: #### Aruna Olivas, CH8 #### [facility] PATHOLOGY LABORATORY [address] [place], [place], Neutrophils (Bld) [#/Vol] 5.82 10*3/uL Normal 1.50-8.00 [facility] Comment on above: Performed By: #### Aruna Olivas, CH8 #### [facility] PATHOLOGY LABORATORY [address] [place], [place], Neutrophils/100 WBC (Bld) 75.5 % Normal 31.0-76.0 [facility] Comment on above: Performed By: #### Aruna Deisy, CH8 #### [facility] PATHOLOGY LABORATORY [address] [place] [address], Platelet mean volume (Bld) [Entitic vol] 8.6 fL Normal 7.5-11.2 [facility] Comment on above: Performed By: #### Aruna Olivas, CH8 #### [facility] PATHOLOGY LABORATORY [address] [place] [address], Platelets (Bld) [#/Vol] 189 10*3/uL Normal 150-400 [facility] Comment on above: Performed By: #### rAuna Olivas, CH8 #### [facility] PATHOLOGY LABORATORY [address] [place] [address], RBC (Bld) [#/Vol] 3.40 10*6/uL Low 4.00-5.20 [facility] Comment on above: Performed By: #### Aruna Olivas, 8 #### [facility] PATHOLOGY LABORATORY [address] [place] [address], WBC (Bld) [#/Vol] 7.7 10*3/uL Normal 4.5-11.5 [facility] Comment on above: Performed By: #### Aruna Olivas, 8 #### [facility] PATHOLOGY LABORATORY [address] [place] [address], Care Plan Noteon 01-27-2025 Social Services Manager Authentication Interface Message Text I tried at least thrice to reach her son to update on her colonoscopy but with no avail. Normal [facility] H AND Luis Felipe 01-27-2025 Social Services Manager Authentication Interface Message Text Ely Hurtado [id number] 01/27/2025 HISTORY AND PHYSICAL: Patient's history with [...] Parikh MD 01/27/2025 3:34 PM Normal [facility] MAGNESIUMon 01-27-2025 Interpretation and review of laboratory results Normal [facility] Magnesium [Mass/Vol] 2 mg/dL 1.9 - 2 .7 mg/dL [facility] Magnesium [Mass/Vol] 2.0 mg/dL Normal 1.9-2.7 [facility] Comment on above: Performed By: #### Aruna Olivas CH8 #### S PATHOLOGY LABORATORY [address] [place] [address], MANUAL DIFF AND MORPHon 01-08 Cells Counted Total (Bld) [#] [facility] Microcytes Ql (Bld) Slight [facility] Ovalocytes LM Ql (Bld) Few [facility] RBC.hypochromic/100 RBC Auto (Bld) Moderate [facility] Schistocytes LM Ql (Bld) Few [facility] CELLS COUNTED TOTAL # IN BLOOD Normal [facility] Comment on above: Performed By: #### Aruna Olivas CH8 #### S PATHOLOGY LABORATORY [address] [place] [address], FRAGMENTED RBC Few Normal [facility] Comment on above: Performed By: #### Aruna Olivas CH8 #### S PATHOLOGY LABORATORY [address] [place], [place], HYPOCHROMASIA Moderate Normal [facility] Comment on above: Performed By: #### M G, CH8 #### S PATHOLOGY LABORATORY [address] [place], [place], MICROCYTOSIS Slight Normal [facility] Comment on above: Performed By: #### M G, CH8 #### S PATHOLOGY LABORATORY [address] [place], [place], OVALOCYTES Few Normal [facility] Comment on above: Performed By: #### M G, CH8 #### [facility] PATHOLOGY LABORATORY [address] [place], [place], No Panel InformationOrdered By: Letty Arevalo on 01-27-2025 [facility] No Panel Informationon 01-27 [facility] OP Noteon 01-27-2025 Social Services Manager Authentication Interface Message Text Ely Hurtado 84 year old Surgical Contact Serial Number: [id number] Location: ENDO ADD ON PROCEDURE Date: 01/27/2025 Audio Visual Director: Juan Parikh MD Attending:Adrien Caraballo MD Procedure(s): [...] transillumination of right lower quadrant. Prep was Grimes Bowel Prep Right Colon: Entire colon seen well, Grimes Bowel Prep Transverse Colon: Entire colon seen well, [facility]imes Bowel Prep Left Colon:Entire colon seen well [...] + internal hemorrhoids Rectal bleeding (Primary Diagnosis) [139137] Unspecified right bundle-branch block [7412231] Abnormal electrocardiogram (ECG) (EKG) [8037628] Abnormal electrocardiogram (ECG) (EKG) [5653589] ANATOMIC SPECIMEN: Yes SPECIMEN: ID Type Source [...] Caraballo MD Division of Gastroenterology AND Hepatology [facility] Normal [facility] Patient Instructionson 01-27 Social Services Manager Authentication Interface Message Text COLONOSCOPY COLYTE SPLIT PREP DO NOT FOLLOW INSTRUCTIONS ON THE COLYTE BOTTLE Please call [phone] to schedule your procedure WHAT IS A [...] medicati (more content not included)... Normal [facility] Progress Noteson 01-27-2025 Social Services Manager Authentication Interface Message Text Division of Pulmonary, Critical Care, and Sleep Medicine Stepdown Unit ATTENDING NOTE Code Status: Full Code DPOAHC/NOK: Aliza Hurtado (Son) Admission Date and Time: 01/25/2025 12:28 PM LOS: 2 days I saw and evaluated Ms. Eyl Hurtado. I personally obtained javed and critical [...] Pulmonary, Critical Care, AND Sleep Medicine [facility] PIN [id number] [1] Social History Tobacco Use Smoking Status Not on file Smokeless Tobacco Not on file Normal [facility] BASIC METABOLIC PANELon 08-2 -2024 Anion gap [Moles/Vol] 12 mmol/L Normal 10-20 [facility] Comment on above: Performed By: #### Aruna Olivas, CH8 #### S PATHOLOGY LABORATORY [address] [place] [address], Calcium [Mass/Vol] 7.9 mg/dL Low 8.6-10.3 [facility] Comment on above: Performed By: #### Aruna Olivas, CH8 #### S PATHOLOGY LABORATORY [address] [place] [address], Chloride [Moles/Vol] 110 mmol/L High 98-107 [facility] Comment on above: Performed By: #### Aruna Olivas, CH8 #### S PATHOLOGY LABORATORY [address] [place] [address], CO2 [Moles/Vol] 23 mmol/L Normal 21-31 [facility] Comment on above: Performed By: #### Aruna Olivas, CH8 #### S PATHOLOGY LABORATORY [address] [place] [address], Creatinine [Mass/Vol] 0.58 mg/dL Low 0.60-1.20 [facility] Comment on above: Performed By: #### Aruna Olivas, CH8 #### S PATHOLOGY LABORATORY [address] [place] [address], ESTIMATED GFR (CKD-EPI) 90 mL/min/1.73sqm Normal >=60 [facility] Comment on above: Result Comment: 2020 [...] Inclusion of Race in Diagnosing Kidney Disease. [place] Journal of Kidney Diseases 2021;79(2):268-88.e1. 2. N Engl J Med 1 Vol. 385 Issue 19 Pages 7814-6284 Performed By: #### Aruna Olivas, CH8 #### S PATHOLOGY LABORATORY [address] [place] [address], Glucose [Mass/Vol] 85 mg/dL Normal 74-109 [facility] Comment on above: Performed By: #### Aruna Olivas, CH8 #### S PATHOLOGY LABORATORY [address] [place] [address], Potassium [Moles/Vol] 3.7 mmol/L Normal 3.5-5.0 [facility] Comment on above: Performed By: #### Aruna Olivas, CH8 #### S PATHOLOGY LABORATORY [address] [place] [address], Sodium [Moles/Vol] 141 mmol/L Normal 136-145 [facility] Comment on above: Performed By: #### Aruna Olivas, CH8 #### S PATHOLOGY LABORATORY [address] [place] [address], Urea nitrogen [Mass/Vol] 9 mg/dL Normal 7-25 [facility] Comment on above: Performed By: #### Aruna Olivas, CH8 #### S PATHOLOGY LABORATORY [address] [place] [address], Basic metabolic 2000 panelon 01-26-2025 Anion gap [Moles/Vol] 12 mmol/L 10 - 20 [facility] Calcium [Mass/Vol] 7.9 mg/dL Low 8.6 - [...] Inclusion of Race in Diagnosing Kidney Disease. [place] Journal of Kidney Diseases 2021;79(2):268-88.e1. 2. N Engl J Med 2020 Vol. 385 Issue 19 Pages 0334-6284 Glucose [Mass/Vol] 85 mg/dL 74 - 109 [...] [#/Vol] 7.9 10*3/uL 4.5 - 11.5 K/uL [facility] CBC WITH DIFFERENTIALon 01-08 0-2024 Basophils (Bld) [#/Vol] 0.07 10*3/uL Normal 0.00-0.20 [facility] Comment on above: Performed By: #### Aruna Olivas CH8 #### S PATHOLOGY LABORATORY [address] [place], [place], Basophils/100 WBC (Bld) 0.9 % Normal <=1.9 [facility] Comment on above: Performed By: #### Aruna Olivas CH8 #### S PATHOLOGY LABORATORY [address] [place], [place], Eosinophils (Bld) [#/Vol] 0.05 10*3/uL Normal 0.00-0.70 [facility] Comment on above: Performed By: #### Aruna Olivas, CH8 #### [facility] PATHOLOGY LABORATORY [address] [place] [address], Eosinophils/100 WBC (Bld) 0.7 % Normal 0.1-4.0 [facility] Comment on above: Performed By: #### Aruna Olivas, CH8 #### [facility] PATHOLOGY LABORATORY [address] [place] [address], Erythrocyte distribution width (RBC) [Ratio] 19.8 % High 11.5-14.5 [facility] Comment on above: Performed By: #### Aruna Olivas, CH8 #### [facility] PATHOLOGY LABORATORY [address] [place] [address], Hematocrit (Bld) [Volume fraction] 26.2 % Low 36.0-46.0 [facility] Comment on above: Performed By: #### Aruna Olivas, CH8 #### [facility] PATHOLOGY LABORATORY [address] [place] [address], Hemoglobin (Bld) [Mass/Vol] 8.4 g/dL Low 12.0-15.0 [facility] Comment on above: Performed By: #### Aruna Olivas, CH8 #### [facility] PATHOLOGY LABORATORY [address] [place] [address], Lymphocytes (Bld) [#/Vol] 0.78 10*3/uL Low 1.00-4.80 [facility] Comment on above: Performed By: #### Aruna Olivas, CH8 #### [facility] PATHOLOGY LABORATORY [address] [place] [address], Lymphocytes/100 WBC (Bld) 9.9 % Low 24.0-44.0 [facility] Comment on above: Performed By: #### Aruna Olivas, CH8 #### [facility] PATHOLOGY LABORATORY [address] [place] [address], MCH (RBC) [Entitic mass] 23.0 pg Low 26.0-34.0 [facility] Comment on above: Performed By: #### Aruna Olivas, CH8 #### [facility] PATHOLOGY LABORATORY [address] [place] [address], MCHC (RBC) [Mass/Vol] 32.1 g/dL Normal 32.0-35.9 [facility] Comment on above: Performed By: #### Aruna Olivas, CH8 #### [facility] PATHOLOGY LABORATORY [address] [place] [address], MCV (RBC) [Entitic vol] 72 fL Low 80-100 [facility] Comment on above: Performed By: #### Aruna Olivas, CH8 #### [facility] PATHOLOGY LABORATORY [address] [place] [address], Monocytes (Bld) [#/Vol] 0.79 10*3/uL Normal 0.20-1.00 [facility] Comment on above: Performed By: #### Aruna Olivas, CH8 #### [facility] PATHOLOGY LABORATORY [address] [place] [address], Monocytes/100 WBC (Bld) 10.0 % Normal 2.0-11.0 [facility] Comment on above: Performed By: #### Aruna Olivas, CH8 #### [facility] PATHOLOGY LABORATORY [address] [place] [address], Neutrophils (Bld) [#/Vol] 6.22 10*3/uL Normal 1.50-8.00 [facility] Comment on above: Performed By: #### Aruna Olivas, CH8 #### [facility] PATHOLOGY LABORATORY [address] [place] [address], Neutrophils/100 WBC (Bld) 78.6 % High 31.0-76.0 [facility] Comment on above: Performed By: #### Aruna Olivas, CH8 #### [facility] PATH[facility] LABORATORY [address] [place] [address], Platelet mean volume (Bld) [Entitic vol] 8.3 fL Normal 7.5-11.2 [facility] Comment on above: Performed By: #### Aruna Olivas, CH8 #### [facility] PATH[facility]ORATORY [address] [place] [address], Platelets (Bld) [#/Vol] 197 10*3/uL Normal 150-400 [facility] Comment on above: Performed By: #### Aruna Olivas, CH8 #### [facility] PATHOLOGY LABORAT[facility] [address] [place], [place], RBC (Bld) [#/Vol] 3.65 10*6/uL Low 4.00-5.20 [facility] Comment on above: Performed By: #### Aruna Olivas, CH8 #### [facility] [address] [place], WBC (Bld) [#/Vol] 7.9 10*3/uL Normal 4.5-11.5 [facility] Comment on above: Performed By: #### Aruna Oilvas, CH8 #### [facility] PATHOLOGY LABORAT[facility] [address] [place], [place], Basophils (Bld) [#/Vol] 0.07 10*3/uL Normal 0.00-0.20 [facility] Comment on above: Performed By: #### Aruna Olivas, CH8 #### [facility] [address] [place], Basophils/100 WBC (Bld) 0.8 % Normal <=1.9 [facility] Comment on above: Performed By: #### Aruna Olivas, CH8 #### [facility] PATH[facility] [address] [place], [place], Eosinophils (Bld) [#/Vol] 0.13 10*3/uL Normal 0.00-0.70 [facility] Comment on above: Performed By: #### Aruna Olivas, CH8 #### [facility] [address] [place], Eosinophils/100 WBC (Bld) 1.4 % Normal 0.1-4.0 [facility] Comment on above: Performed By: #### Aruna Olivas, CH8 #### [facility] [address] [place], Erythrocyte distribution width (RBC) [Ratio] 20.0 % High 11.5-14.5 [facility] Comment on above: Performed By: #### Aruna Olivas, CH8 #### [facility] [address] [place], [place], Hematocrit (Bld) [Volume fraction] 26.8 % Low 36.0-46.0 [facility] Comment on above: Performed By: #### Aruna Olivas, CH8 #### [facility] [address] [place] [address], Hemoglobin (Bld) [Mass/Vol] 8.7 g/dL Low 12.0-15.0 [facility] Comment on above: Performed By: #### Aruna Olivas, CH8 #### [facility] [address] [place] [address], Lymphocytes (Bld) [#/Vol] 1.32 10*3/uL Normal 1.00-4.80 [facility] Comment on above: Performed By: #### Aruna Olivas, CH8 #### [facility] [address] [place] [address], Lymphocytes/100 WBC (Bld) 14.8 % Low 24.0-44.0 [facility] Comment on above: Performed By: #### Aruna Olivas, CH8 #### [facility] [address] [place] [address], MCH (RBC) [Entitic mass] 23.7 pg Low 26.0-34.0 [facility] Comment on above: Performed By: #### Aruna Olivas, CH8 #### [facility] [address] [place] [address], MCHC (RBC) [Mass/Vol] 32.5 g/dL Normal 32.0-35.9 [facility] Comment on above: Performed By: #### Aruna Olivas, CH8 #### [facility] [address] [place] [address], MCV (RBC) [Entitic vol] 73 fL Low 80-100 [facility] Comment on above: Performed By: #### Aruna Olivas, CH8 #### [facility] [address] [place] [address], Monocytes (Bld) [#/Vol] 1.10 10*3/uL High 0.20-1.00 [facility] Comment on above: Performed By: #### Aruna Olivas, CH8 #### [facility] [address] [place] [address], Monocytes/100 WBC (Bld) 12.3 % High 2.0-11.0 [facility] Comment on above: Performed By: #### Aruna Olivas, CH8 #### [facility] [address] [place] [address], Neutrophils (Bld) [#/Vol] 6.28 10*3/uL Normal 1.50-8.00 [facility] Comment on above: Performed By: #### Aruna Olivas, CH8 #### [facility] [address] [place] [address], Neutrophils/100 WBC (Bld) 70.7 % Normal 31.0-76.0 [facility] Comment on above: Performed By: #### Aruna Olivas, CH8 #### [facility] [address] [place] [address], Platelet mean volume (Bld) [Entitic vol] 8.1 fL Normal 7.5-11.2 [facility] Comment on above: Performed By: #### Aruna Olivas, CH8 #### [facility] [address] [place] [address], Platelets (Bld) [#/Vol] 189 10*3/uL Normal 150-400 [facility] Comment on above: Performed By: #### Aruna Olivas, CH8 #### [facility] [address] [place] [address], RBC (Bld) [#/Vol] 3.67 10*6/uL Low 4.00-5.20 [facility] Comment on above: Performed By: #### Aruna Olivas, CH8 #### [facility] [address] [place], [place], WBC (Bld) [#/Vol] 8.9 10*3/uL Normal 4.5-11.5 [facility] Comment on above: Performed By: #### Aruna Olivas, CH8 #### [facility] [address] [place] [address], CBC WITH DIFFERENTIALOrdered By: Linda Kang on [...] 8.7 g/dL Low 12.0 - 15.0 g/dL [facility] [...] [facility] RBC (Bld) [#/Vol] 3.67 10*6/uL Low [facility] WBC (Bld) [#/Vol] 8.9 10*3/uL 4.5 - 11.5 K/uL [facility] Consultson 01-26-2025 Social Services Manager Authentication Interface Message Text Department of Gastroenterology and Hepatology Consult H AND P Note GI Attending Physician: Dr. Isauro Page MD Patient: Ely Hurtado Location: [place] [address] Reason for Consult: HPI Ely Hurtado is [...] hemoglobin was 6 prior to transferred to [facility]. She received 2 units of RBC [...] [place] MD, [place] Gastroenterology Fellow. Consult Pager [phone] Discussed with GI attending, Dr. Adrien Caraballo MD Primary team updated yes. Thank you for involving us in the care of this patient. I appreciate the excellent care from the nursing staff, and system support analyst. Dictated using voice recognition software. Document may [...] Hepatology (more content not included)... Normal [facility] MAGNESIUMon 01-26-2025 Interpretation and review of laboratory results Normal [facility] Magnesium [Mass/Vol] 1.9 mg/dL 1.9 - 2 .7 mg/dL [facility] Magnesium [Mass/Vol] 1.9 mg/dL Normal 1.9-2.7 [facility] Comment on above: Performed By: #### Aruna Olivas, CH8 #### [facility] [address] [place] [address], MANUAL DIFF AND MORPHon 01-08 Cells Counted Total (Bld) [#] [facility] Microcytes Ql (Bld) Slight [facility] Ovalocytes LM Ql (Bld) Few [facility] Polychromasia LM Ql (Bld) Slight [facility] RBC.hypochromic/100 RBC Auto (Bld) Moderate [facility] Schistocytes LM Ql (Bld) Few [facility] CELLS COUNTED TOTAL # IN BLOOD Normal [facility] Comment on above: Performed By: #### Aruna Olivas, CH8 #### [facility] [address] [place] [address], FRAGMENTED RBC Few Normal [facility] Comment on above: Performed By: #### Aruna Olivas, CH8 #### [facility] [address] [place] [address], HYPOCHROMASIA Moderate Normal [facility] Comment on above: Performed By: #### Aruna Olivas, CH8 #### S PATHOLOGY LABORATORY [address] [place] [address], MICROCYTOSIS Slight Normal [facility] Comment on above: Performed By: #### Aruna Olivas, CH8 #### S PATHOLOGY LABORATORY [address] [place] [address], OVALOCYTES Few Normal [facility] Comment on above: Performed By: #### Aruna Olivas, CH8 #### [facility] [address] [place] [address], POLYCHROMASIA Slight Normal [facility] Comment on above: Performed By: #### Aruna Oilvas, CH8 #### [facility] [address] [place] [address], Acanthocytes LM Ql (Bld) Few [facility] Embarrass cells LM Ql (Bld) Few [facility] Cells Counted Total (Bld) [#] [facility] Microcytes Ql (Bld) Slight [facility] Ovalocytes LM Ql (Bld) Few [facility] Polychromasia LM Ql (Bld) Slight [facility] RBC.hypochromic/100 RBC Auto (Bld) Moderate [facility] Schistocytes LM Ql (Bld) Few [facility] ACANTHOCYTES Few Normal [facility] Comment on above: Performed By: #### Aruna Olivas, CH8 #### S PATHOLOGY LABORATORY [address] [place] [address], CARLOS CELLS Few Normal [facility] Comment on above: Performed By: #### Aruna Olivas, CH8 #### S PATHOLOGY LABORATORY [address] [place] [address], CELLS COUNTED TOTAL # IN BLOOD Normal [facility] Comment on above: Performed By: #### Aruna Olivas, CH8 #### S PATHOLOGY LABORATORY [address] [place] [address], FRAGMENTED RBC Few Normal [facility] Comment on above: Performed By: #### Aruna Olivas, CH8 #### S PATHOLOGY LABORATORY [address] [place] [address], HYPOCHROMASIA Moderate Normal [facility] Comment on above: Performed By: #### M G, CH8 #### S PATHOLOGY LABORATORY [address] [place], [place], MICROCYTOSIS Slight Normal [facility] Comment on above: Performed By: #### M G, CH8 #### [facility] [address] [place], [place], OVALOCYTES Few Normal [facility] Comment on above: Performed By: #### M G, CH8 #### [facility] [address] [place], [place], POLYCHROMASIA Slight Normal [facility] Comment on above: Performed By: #### M G, CH8 #### S PATHOLOGY LABORATORY [address] [place], [place], No Panel InformationOrdered By: Eliana Kelsey on 01-26-2025 [facility] No Panel InformationOrdered By: Linda Kang on 01-26-2025 [facility] No Panel Informationon 01-26 [facility] Progress Noteson 01-26-2025 Social Services Manager Authentication Interface Message Text Division of Pulmonary, [...] with hematochezia x 1 day. Presented to [facility]. Hgb decreased to 6.2. Received 2U PRBCs. [...] -- 85 19 100 % Room air 01/25/25 2007 130/95 -- -- 93 16 97 % [...] Pulmonary, Critical Care, AND Sleep Medicine [facility] [id number] [1] Social History Tobacco Use Smoking Status Not on file Smokeless Tobacco Not on file Normal [facility] Absolute lymphocyte countOrd ered By: Jennie Navarro on 01-25-2025 Lymphocytes Auto (Unsp spec) [#/Vol] 1.53 10*3/uL 0.83-4.51 [facility] Absolute neutrophil countOrd ered By: Jennie Navarro on 01-25-2025 Neutrophils (Bld) [#/Vol] 5.2 10*3/uL 2.0-7.7 [facility] Automated lymphocyte count a s percentage of total leukocytesOrdered By: Jennie Navarro on 01-25-2025 Lymphocytes/100 WBC Auto (Unsp spec) 19.2 % 19-41 [facility] BASIC METABOLIC PANELon 01-07 Anion gap [Moles/Vol] 12 mmol/L Normal 10-20 [facility] Comment on above: Performed By: #### C H8, MG, HEPATIC #### [facility] [address] [place] [address], Calcium [Mass/Vol] 8.3 mg/dL Low 8.6-10.3 [facility] Comment on above: Performed By: #### C H8, MG, HEPATIC #### [facility] [address] [place] [address], Chloride [Moles/Vol] 108 mmol/L High 98-107 [facility] Comment on above: Performed By: #### C H8, MG, HEPATIC #### [facility] [address] [place] [address], CO2 [Moles/Vol] 26 mmol/L Normal 21-31 [facility] Comment on above: Performed By: #### C H8, MG, HEPATIC #### [facility] [address] [place] [address], Creatinine [Mass/Vol] 0.61 mg/dL Normal 0.60-1.20 [facility] Comment on above: Performed By: #### Raquel Gilliland MG, HEPATIC #### [facility] [address] [place] [address], ESTIMATED GFR (CKD-EPI) 89 mL/min/1.73sqm Normal >=60 [facility] Comment [...] Inclusion of Race in Diagnosing Kidney Disease. [place] Journal of Kidney Diseases 2021;79(2):268-88.e1. 2. N Engl J Med 1 Vol. 385 Issue 19 Pages 5562-8756 Performed By: #### Raquel Gilliland MG, HEPATIC #### [facility] [address] [place] [address], Glucose [Mass/Vol] 98 mg/dL Normal 74-109 [facility] Comment on above: Performed By: #### Raquel Gilliland MG, HEPATIC #### [facility] [address] [place] [address], Potassium [Moles/Vol] 3.8 mmol/L Normal 3.5-5.0 [facility] Comment on above: Performed By: #### Raquel H8 MG, HEPATIC #### [facility] [address] [place] [address], Sodium [Moles/Vol] 142 mmol/L Normal 136-145 [facility] Comment on above: Performed By: #### Raquel H8 MG, HEPATIC #### [facility] [address] [place] [address], Urea nitrogen [Mass/Vol] 13 mg/dL Normal 7-25 [facility] Comment on above: Performed By: #### Raquel H8 MG, HEPATIC #### [facility] [address] [place] [address] [place], [address] Basic metabolic 2000 panelon 01-25-2025 Anion gap [Moles/Vol] 12 mmol/L 10 - 20 [facility] Calcium [Mass/Vol] 8.3 mg/dL Low 8.6 - 10. 3 mg/dL [facility] Chloride [Moles/Vol] 108 mmol/L High 98 - 10 7 mmol/L [facility] CO2 [Moles/Vol] 26 mmol/L 21 - 31 mmol/L [facility] Creatinine [Mass/Vol] 0.61 mg/dL 0.60 - 1.20 mg/dL [facility] GFR/1.73 sq M.predicted CKD-EPI (S/P/Bld) [Vol rate/Area] 89 - PINF [facility] Comment on above: 2020 CKD [...] Inclusion of Race in Diagnosing Kidney Disease. [place] Journal of Kidney Diseases 2021;79(2):268-88.e1. 2. N Engl J Med 1 Vol. 385 Issue 19 Pages 1791-8615 Glucose [Mass/Vol] 98 mg/dL 74 - 109 mg/dL [facility] Potassium [Moles/Vol] 3.8 mmol/L 3.5 - 5.0 mmol/L [facility] Sodium [Moles/Vol] 142 mmol/L 136 - 145 mmol/L [facility] Urea nitrogen [Mass/Vol] 13 mg/dL 7 - 25 mg/dL [facility] Basophil percentageOrdered B y: Jennie Navarro on 01-25-2025 Basophils/100 WBC (Bld) 0.5 % 0-1 [facility] CBC W/Diff, Automatedon 01-07 Hemoglobin (Bld) [Mass/Vol] 6.0 g/dL Invalid Interpretation Code 12.0-15.0 [facility] Comment on above: Result Comment: CRIT ICAL VALUE CALLED TO TEDDY 01/25/25 5087 Kam Guillermo. RESULTS READ BACK BY SAME. Performed By: #### L 500.4100, L501.5200, [id number] #### [facility] [address] [place], [address] Absolute Lymph 1.53 X10 3/uL Normal 0.83-4.51 [facility] Comment on above: Performed By: #### L 500.4100, [id number], [id number] #### [facility] [address] [place], [address] Absolute Neut 5.2 X10 3/uL Normal 2.0-7.7 [facility] Comment on above: Performed By: #### L 500.4100, [id number], [id number] #### [facility] [address] [place], [address] Basophils/100 WBC (Bld) 0.5 % Normal 0-1 [facility] Comment on above: Performed By: #### L 500.4100, [id number], [id number] #### [facility] [address] [place], [address] Eosinophils/100 WBC (Bld) 1.0 % Normal 0-5 [facility] Comment on above: Performed By: #### L 500.4100, [id number], [id number] #### [facility] [address] [place], [address] Erythrocyte distribution width (RBC) [Ratio] 15.8 % High 11.6-14.6 [facility] Comment on above: Performed By: #### L 500.4100, [id number], [id number] #### [facility] [address] [place], [address] Hematocrit (Bld) [Volume fraction] 20.9 % Low 37-47 [facility] Comment on above: Performed By: #### L 500.4100, [id number], [id number] #### [facility] [address] [place], [address] IG% 0.300 Normal 0.0-0.9 [facility] Comment on above: Result Comment: IG% - Immature Granulocytes (promyelocytes, myelocytes and metamyelocytes) > 1% indicates that a LEFT SHIFT is Present. Performed By: #### L 500.4100, [id number], [id number] #### [facility] [address] [place], [address] Lymphocytes/100 WBC (Bld) 19.2 % Normal 19-41 [facility] Comment on above: Performed By: #### L 500.4100, [id number], [id number] #### [facility] [address] [place], [address] MCH (RBC) [Entitic mass] 20.9 pg Low 27.0-32.0 [facility] Comment on above: Performed By: #### L 500.4100, [id number], [id number] #### [facility] [address] [place], [address] MCHC (RBC) [Mass/Vol] 28.7 g/dL Low 32-36 [facility] Comment on above: Performed By: #### L 500.4100, [id number], [id number] #### [facility] [address] [place], [address] MCV (RBC) [Entitic vol] 72.8 fL Low 81-99 [facility] Comment on above: Performed By: #### L 500.4100, [id number], [id number] #### [facility] [address] [place], [address] Monocytes/100 WBC (Bld) 14.1 % High 0-10 [facility] Comment on above: Performed By: #### L 500.4100, [id number], [id number] #### [facility] [address] [place], [address] Neutrophils/100 WBC (Bld) 64.9 % Normal 47-70 [facility] Comment on above: Performed By: #### L 500.4100, [id number], [id number] #### [facility] [address] [place], [address] Nucleated RBC (Bld) [#/Vol] 0 10*3/uL Normal 0-5 [facility] Comment on above: Performed By: #### L 500.4100, [id number], [id number] #### [facility] [address] [place], [address] Platelet mean volume (Bld) [Entitic vol] 10.6 fL Normal 6.2-12.0 [facility] Comment on above: Performed By: #### L 500.4100, [id number], [id number] #### [facility] [address] [place], [address] Platelets (Bld) [#/Vol] 232 10*3/uL Normal 150-450 [facility] Comment on above: Performed By: #### L 500.4100, [id number], [id number] #### [facility] [address] [place], [address] RBC (Bld) [#/Vol] 2.87 10*6/uL Low 4.2-5.4 [facility] Comment on above: Performed By: #### L 500.4100, [id number], [id number] #### [facility] [address] [place], [address] RDW SD 41.3 fl Normal 35.1-43.9 [facility] Comment on above: Performed By: #### L 500.4100, [id number], [id number] #### [facility] [address] [place], [address] WBC (Bld) [#/Vol] 8.0 10*3/uL Normal 4.4-11.0 [facility] Comment on above: Performed By: #### L 500.4100, L501.5200, [id number] #### [facility] [address] [place], [address] CBC WITH DIFFERENTIALOrdered By: Terri Simon on [...] RBC (Bld) [#/Vol] 3.86 10*6/uL Low [facility] WBC (Bld) [#/Vol] 7.8 10*3/uL 4.5 - 11.5 K/uL [facility] CBC WITH DIFFERENTIALon 01-07 Basophils (Bld) [#/Vol] 0.08 10*3/uL Normal 0.00-0.20 [facility] Comment on above: Performed By: #### Aruna Olivas, CH8 #### S PATHOLOGY LABORATORY [address] [place], [place], Basophils/100 WBC (Bld) 1.1 % Normal <=1.9 [facility] Comment on above: Performed By: #### Aruna Olivas, CH8 #### S PATH[facility] LAB[facility]AT[facility] [address] [place], [place], Eosinophils (Bld) [#/Vol] 0.06 10*3/uL Normal 0.00-0.70 [facility] Comment on above: Performed By: #### Aruna Olivas, CH8 #### S PATH[facility] LAB[facility]AT[facility] [address] [place], [place], Eosinophils/100 WBC (Bld) 0.8 % Normal 0.1-4.0 [facility] Comment on above: Performed By: #### Aruna Olivas, CH8 #### S [facility] LAB[facility] [address] [place], [place], Erythrocyte distribution width (RBC) [Ratio] 19.7 % High 11.5-14.5 [facility] Comment on above: Performed By: #### Aruna Olivas, CH8 #### [facility] [address] [place] [address], Hematocrit (Bld) [Volume fraction] 28.2 % Low 36.0-46.0 [facility] Comment on above: Performed By: #### Aruna Olivas, CH8 #### [facility] [address] [place] [address], Hemoglobin (Bld) [Mass/Vol] 9.0 g/dL Low 12.0-15.0 [facility] Comment on above: Performed By: #### Aruna Olivas, CH8 #### [facility] [address] [place] [address], Lymphocytes (Bld) [#/Vol] 1.20 10*3/uL Normal 1.00-4.80 [facility] Comment on above: Performed By: #### Aruna Olivas, CH8 #### [facility] [address] [place] [address], Lymphocytes/100 WBC (Bld) 15.4 % Low 24.0-44.0 [facility] Comment on above: Performed By: #### Aruna Olivas, CH8 #### [facility] [address] [place] [address], MCH (RBC) [Entitic mass] 23.4 pg Low 26.0-34.0 [facility] Comment on above: Performed By: #### Aruna Olivas, CH8 #### [facility] [address] [place] [address], MCHC (RBC) [Mass/Vol] 32.1 g/dL Normal 32.0-35.9 [facility] Comment on above: Performed By: #### Aruna Olivas, CH8 #### [facility] [address] [place] [address], MCV (RBC) [Entitic vol] 73 fL Low 80-100 [facility] Comment on above: Performed By: #### Aruna Olivas, CH8 #### [facility] [address] [place] [address], Monocytes (Bld) [#/Vol] 0.88 10*3/uL Normal 0.20-1.00 [facility] Comment on above: Performed By: #### Aruna Olivas, CH8 #### [facility] [address] [place] [address], Monocytes/100 WBC (Bld) 11.4 % High 2.0-11.0 [facility] Comment on above: Performed By: #### Aruna Olivas, CH8 #### [facility] [address] [place] [address], Neutrophils (Bld) [#/Vol] 5.53 10*3/uL Normal 1.50-8.00 [facility] Comment on above: Performed By: ###Roger Olivas, CH8 #### [facility] [address] [place] [address], Neutrophils/100 WBC (Bld) 71.3 % Normal 31.0-76.0 [facility] Comment on above: Performed By: ###Roger Olivas, CH8 #### [facility] [address] [place] [address], Platelet mean volume (Bld) [Entitic vol] 8.0 fL Normal 7.5-11.2 [facility] Comment on above: Performed By: ###Roger Olivas, CH8 #### [facility] [address] [place] [address], Platelets (Bld) [#/Vol] 189 10*3/uL Normal 150-400 [facility] Comment on above: Performed By: #### Aruna Olivas, CH8 #### [facility] [address] [place] [address], RBC (Bld) [#/Vol] 3.86 10*6/uL Low 4.00-5.20 [facility] Comment on above: Performed By: ###Roger Olivas, CH8 #### [facility] [address] [place] [address], WBC (Bld) [#/Vol] 7.8 10*3/uL Normal 4.5-11.5 [facility] Comment on above: Performed By: #### Aruna Olivas, CH8 #### [facility] [address] [place], [address] CBC panel Auto (Bld)on 01-25 Erythrocyte distribution width (RBC) [Ratio] 19.8 % High 11.5 - 14.5 % [facility] Hematocrit (Bld) [Volume fraction] 29.7 % Low 36.0 - 46.0 % [facility] Hemoglobin (Bld) [Mass/Vol] 9.8 g/dL Low 12.0 - 15.0 g/dL [facility] Interpretation and review of laboratory results Abnormal [facility] MCH (RBC) [Entitic mass] 23.8 pg Low 26.0 - 34.0 pg [facility] MCHC (RBC) [Mass/Vol] 33 g/dL 32.0 - 35.9 g/dL [facility] MCV (RBC) [Entitic vol] 72 fL Low 80 - 100 fL [facility] Platelet mean volume (Bld) [Entitic vol] 8.5 fL 7.5 - 11.2 fL [facility] Platelets (Bld) [#/Vol] 221 10*3/uL 150 - 400 K/uL [facility] RBC (Bld) [#/Vol] 4.11 10*6/uL [facility] WBC (Bld) [#/Vol] 10.2 10*3/uL 4.5 - 11.5 K/uL [facility] CBC-Complete Blood Cnt No Di ffon 01-25-2025 HCT Normal 37-47 [facility] Comment on above: Order Comment: 155 Result Comment: [facility] Performed By: #### L 500.4100, L501.5200, L500.4050 #### [facility] [address] [place], [address] HGB Normal 12.0-15.0 [facility] Comment on above: Order Comment: 155 Result Comment: [facility] Performed By: #### L 500.4100, L501.5200, [id number] #### [facility] [address] [place], [address] MCH Normal 27.0-32.0 [facility] Comment on above: Order Comment: 155 Result Comment: [facility] Performed By: #### L 500.4100, L501.5200, [id number] #### [facility] [address] [place], [address] MCHC Normal 32-36 [facility] Comment on above: Order Comment: 155 Result Comment: [facility] Performed By: #### L 500.4100, L501.5200, L500.4050 #### [facility] [address] [place], [address] MCV Normal 81-99 [facility] Comment on above: Order Comment: 155 Result Comment: [facility] Performed By: #### L 500.4100, L501.5200, L500.4050 #### [facility] [address] [place], [address] PLT Normal 150-450 [facility] Comment on above: Order Comment: 155 Result Comment: [facility] Performed By: #### L 500.4100, L501.5200, L500.4050 #### [facility] [address] [place], [address] RBC Normal 4.2-5.4 [facility] Comment on above: Order Comment: 155 Result Comment: [facility] Performed By: #### L 500.4100, L501.5200, L500.4050 #### [facility] [address] [place], [address] RDW CV Normal 11.6-14.6 [facility] Comment on above: Order Comment: 155 Result Comment: [facility] Performed By: #### L 500.4100, L501.5200, L500.4050 #### [facility] [address] [place], [address] RDW SD Normal 35.1-43.9 [facility] Comment on above: Order Comment: 155 Result Comment: [facility] Performed By: #### L 500.4100, L501.5200, L500.4050 #### [facility] [address] [place], [address] WBC Normal 4.4-11.0 [facility] Comment on above: Order Comment: 155 Result Comment: [facility] Performed By: #### L 500.4100, L501.5200, L500.4050 #### [facility] [address] [place], [address] COMPLETE BLOOD COUNTon 01-25 Erythrocyte distribution width (RBC) [Ratio] 19.8 % High 11.5-14.5 [facility] Comment on above: Performed By: #### Aruna Olivas, CH8 #### S [facility] [address] [place] [address], Hematocrit (Bld) [Volume fraction] 29.7 % Low 36.0-46.0 [facility] Comment on above: Performed By: #### Aruna Olivas, CH8 #### [facility] [address] [place] [address], Hemoglobin (Bld) [Mass/Vol] 9.8 g/dL Low 12.0-15.0 [facility] Comment on above: Performed By: #### Aruna Olivas, CH8 #### [facility] [address] [place] [address], MCH (RBC) [Entitic mass] 23.8 pg Low 26.0-34.0 [facility] Comment on above: Performed By: #### Aruna Olivas, CH8 #### [facility] [address] [place], [place], MCHC (RBC) [Mass/Vol] 33.0 g/dL Normal 32.0-35.9 [facility] Comment on above: Performed By: #### Aruna Olivas, CH8 #### [facility] [address] [place], [place], MCV (RBC) [Entitic vol] 72 fL Low 80-100 [facility] Comment on above: Performed By: #### M G, CH8 #### [facility] [address] [place], [place], Platelet mean volume (Bld) [Entitic vol] 8.5 fL Normal 7.5-11.2 [facility] Comment on above: Performed By: #### Aruna Olivas, CH8 #### [facility] [address] [place], [place], Platelets (Bld) [#/Vol] 221 10*3/uL Normal 150-400 [facility] Comment on above: Performed By: #### Aruna Olivas, CH8 #### [facility] [address] [place], [place], RBC (Bld) [#/Vol] 4.11 10*6/uL Normal 4.00-5.20 [facility] Comment on above: Performed By: #### Aruna Olivas, CH8 #### [facility] [address] [place], [place], WBC (Bld) [#/Vol] 10.2 10*3/uL Normal 4.5-11.5 [facility] Comment on above: Performed By: #### Aruna Olivas, CH8 #### [facility] [address] [place], [place], CONFIRMATION ABO/RHon 2024 Specimen Expiration Date [id number] [facility] CTA ABDOMEN + PELVIS W/on CTA [...] Saleh on 01-25-2025 CT DLP 985.85 (mGy.cm) [facility] Work Phone: CT Series Topogram,Topogram,AB D PEL WO,PreMonitoring ,Monitoring,CTA ABD PEL ,70s DELAY [facility] Work Phone: CTDI VOL 0.01 (mGy),0.01 (mGy),6.46 (mGy),0.79 (mGy),2.37 (mGy),6.32 (mGy),6.13 (mGy) [facility] Work Phone: PHANTOM TYPE IEC Body Dosimetry Phantom,IEC Body Dosimetry Phantom,IEC Body Dosimetry Phantom,IEC Body Dosimetry Phantom,IEC Body Dosimetry Phantom,IEC Body Dosimetry Phantom,IEC Body Dosimetry Phantom [facility] Work Phone: [facility] Work Phone: CTA Abdominal vessels and Pe [...] Chronic ancillary findings as above. MACRO: None [facility] Radiology Study observation (narrative) [facility] Consultson 01-25-2025 Social Services Manager Authentication Interface Message Text Interventional Radiology Consult [...] past surgical history on file. Normal [facility] EKG 12 LEAD - PERFORMon 01-07 Diagnosis Normal sinus rhythm Left axis deviation Low voltage QRS, consider pulmonary disease, pericardial effusion, or normal variant Incomplete right bundle branch block Inferior infarct , age undetermined Abnormal ECG Confirmed by Layne Delgadoint ([id number]) on 01/25/2025 5:27:19 PM [facility] P wave Atrium by EKG 82 BPM [facility] P wave axis 16 degrees [facility] P-R Interval 174 ms [facility] Q-T interval 436 ms [facility] Q-T interval corrected 509 ms [facility] QRS axis -40 degrees [facility] QRS duration 102 ms [facility] T wave axis -10 degrees [facility] Eosinophil percentageOrdered By: Jennie Navarro on 01-25-2025 Eosinophils/100 WBC (Bld) 1.0 % 0-5 [facility] Erythrocyte distribution wid th ratioOrdered By: Jennie Navarro on 01-25-2025 Erythrocyte distribution width (RBC) [Ratio] 15.8 % High 11.6-14.6 [facility] Erythrocyte distribution wid th standard deviationOrdered By: Jennie Navarro on 01-25-2025 Erythrocyte distribution width (RBC) [Ratio] 41.3 fl 35.1-43.9 [facility] H AND Luis Felipe 01-25-2025 Social Services Manager Authentication Interface Message Text .[facility] Step Down Unit - H AND P Patient: Ely Hurtado : 1940 Sex: female Room: [place] [address] Admission: 01/25/2025 Today: 01/25/2025 (Length of stay: 1 day(s)) HISTORY OF PRESENT ILLNESS: CHIEF COMPLAINT: No chief complaint on file. 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 Patient who currently resides at [facility] where she was found to have significant bright red blood in her stool following multiple episodes of diarrhea on the morning of 01/24. They were transferred to the [facility] ED later that day for further evaluation. [...] Intake/Output Summary (Last 24 hours) at 01/25/2025 8861 Last data filed at 01/25/2025 1600 Gross [...] anemia. PROBLEM LIST: Neuro AxOx2 at [facility] per OSH notes. Cardiology -No Acute concerns [...] 140-180 (more content not included)... Normal [facility] HEPATIC FUNCTION PANELon Albumin [Mass/Vol] 3.4 [...] Comment on above: Performed By: #### Raquel Gilliland, MG, HEPATIC #### [facility] [address] [place], [place], ALK 52 IU/L Normal 34-104 [facility] Comment on above: Performed By: #### Raquel Gilliland MG, HEPATIC #### [facility] [address] [place], [place], ALT [Catalytic activity/Vol] 7 U/L Normal 7-52 [facility] Comment on above: Performed By: #### C H8, MG, HEPATIC #### [facility] [address] [place], [place], AST [Catalytic activity/Vol] 15 U/L Normal 13-39 [facility] Comment on above: Performed By: #### C H8, MG, HEPATIC #### [facility] [address] [place], [place], Bilirubin [Mass/Vol] 2.5 mg/dL High 0.3-1.0 [facility] Comment on above: Performed By: #### C H8, MG, HEPATIC #### [facility] [address] [place], [place], Bilirubin.direct [Mass/Vol] 0.42 mg/dL High 0.03-0.18 [facility] Comment on above: Performed By: #### C H8, MG, HEPATIC #### [facility] [address] [place], [place], Protein [Mass/Vol] 5.1 g/dL Low 6.0-8.3 [facility] Comment on above: Performed By: #### C H8, MG, HEPATIC #### [facility] [address] [place], [place], Hematocrit Auto (Bld) [Volum e fraction]Ordered By: Jennie Navarro on 01-25-2025 Hematocrit (Bld) [Volume fraction] 20.9 % Low 37-47 [facility] Hemoglobin measurementOrdere d By: Jennie Navarro on 01-25-2025 Hemoglobin (Bld) [Mass/Vol] 6.0 g/dL Low 12.0-15.0 [facility] Comment on above: CRITICAL VALUE PRINCE D TO [id number]/19/25 0447 Kam Guillermo.RESULTS READ BACK BY SAME. Immature granulocytes/100 WB C Auto (Bld)Ordered By: Jennie Navarro on 01-25-2025 Immature granulocytes/100 WBC (Bld) 0.300 % 0.0-0.9 [facility] Comment on above: IG% - Immature Granu locytes (promyelocytes, myelocytes and metamyelocytes) > 1% indicates that a LEFT SHIFT is Present. LACTIC ACIDOrdered By: Tammy Riggs on 01-25-2025 Interpretation and review of laboratory results Normal [facility] Lactate [Moles/Vol] 1 mmol/L 0.5 - 1. 6 mmol/L [facility] This test was developed, and its performance characteristics determined by the Department of Pathology of [facility]. It has not been cleared or approved by the FDA. This test is used for clinical purposes only. [facility] LACTIC ACIDon 01-25-2025 CR LACT 1.0 mmol/L Normal 0.5-1.6 [facility] Comment on above: Order Comment: This test was developed, and its performance characteristics determined by the Department of Pathology of [facility]. It has not been cleared or approved by the FDA. This test is used for clinical purposes only. Performed By: #### L ACT #### [facility] [address] [place] [address], [id number] Laboratory - Blood bankon ABO and Rh group Nom (Bld) Blood group O Rh(D) positive [facility] Lactic Acidon 01-25-2025 Lactate [Moles/Vol] 1.3 mmol/L Normal 0.0-2.0 [facility] Comment on above: Performed By: #### L 500.4100, L501.5200, L500.4050 #### [facility] [address] [place], [place], [id number] Lactate [Moles/Vol] 2.0 mmol/L Normal 0.0-2.0 [facility] Comment on above: Order Comment: 155 Result Comment: Crit ical Result(s) Called at: 0459 by:??JESSICA HAVEN TO MAKENZIE SPARR Results read back by same. Performed By: #### L 500.4100, L501.5200, L500.4050 #### [facility] [address] [place], [place], [id number] Lactic acid measurementOrder ed By: Jennie Navarro on 01-25-2025 Lactate [Moles/Vol] 2.0 mmol/L 0.0-2.0 [facility] Comment on above: Critical Result(s) C alled at: 0459 by: JESSICA SELLERS Results read back by same. MAGNESIUMon 01-25-2025 Interpretation and review of laboratory results Normal [facility] Magnesium [Mass/Vol] 2 mg/dL 1.9 - 2 .7 mg/dL [facility] Magnesium [Mass/Vol] 2.0 mg/dL Normal 1.9-2.7 [facility] Comment on above: Performed By: #### C H8, MG, HEPATIC ####S PATHOLOGY [id number] [place], [place], MANUAL DIFF AND MORPHon 01-07 Cells Counted Total (Bld) [#] [facility] Microcytes Ql (Bld) Slight [facility] Ovalocytes LM Ql (Bld) Few [facility] RBC.hypochromic/100 RBC Auto (Bld) Moderate [facility] CELLS COUNTED TOTAL # IN BLOOD Normal [facility] Comment on above: Performed By: #### Aruna Olivas, CH8 #### S [facility] [address] [place] [address], HYPOCHROMASIA Moderate Normal [facility] Comment on above: Performed By: #### Aruna Olivas, CH8 #### [facility] [address] [place] [address], MICROCYTOSIS Slight Normal [facility] Comment on above: Performed By: #### Aruna Olivas, CH8 #### [facility] [address] [place] [address], OVALOCYTES Few Normal [facility] Comment on above: Performed By: #### Aruna Olivas, CH8 #### [facility] [address] [place] [address], MCV (mean corpuscular volume ) determinationOrdered By: Jennie Navarro on 01-25-2025 MCV (RBC) [Entitic vol] 72.8 fL Low 81-99 [facility] Mean corpuscular hemoglobin (MCH) determinationOrdered By: Jennie Navarro on 01-25-2025 MCH (RBC) [Entitic mass] 20.9 pg Low 27.0-32.0 [facility] Mean corpuscular hemoglobin concentration (MCHC) determinationOrdered By: Jennie Navarro on 01-25-2025 MCHC (RBC) [Mass/Vol] 28.7 g/dL Low 32-36 [facility] Mean platelet volume determi nationOrdered By: Jennie Navarro on 01-25-2025 Platelet mean volume (Bld) [Entitic vol] 10.6 fL 6.2-12.0 [facility] Monocyte percentageOrdered B y: Jennie Navarro on 01-25-2025 Monocytes/100 WBC (Bld) 14.1 % High 0-10 [facility] Neutrophil percentageOrdered By: Jennie Navarro on 01-25-2025 Neutrophils/100 WBC (Bld) 64.9 % 47-70 [facility] No Panel InformationOrdered By: Terri Simon on 01-25-2025 [facility] No Panel Informationon 01-25 Interpretation and review of laboratory results Abnormal [facility] Nucleated red blood cell per centageOrdered By: Jennie Navarro on 01-25-2025 Nucleated RBC/100 WBC (Bld) [Ratio] 0 % 0-5 [facility] PROTHROMBIN TIME AND INRon 0 01-25-2025 INR Coag (PPP) [Relative time] 1.22 {INR} High 0.90 - 1.10 [facility] Interpretation and review of laboratory results Abnormal [facility] PT Coag (PPP) [Time] 13.7 s High [facility] INR Coag (PPP) [Relative time] 1.22 {INR} High 0.90-1.10 [facility] Comment on above: Performed By: #### P T #### [facility] [address] [place] [address], PT Coag (PPP) [Time] 13.7 s High 9.7-12.9 [facility] Comment on above: Performed By: #### P T #### [facility] [address] [place] [address], Platelet countOrdered By: Nicola Navarro on 01-25-2025 Platelets (Bld) [#/Vol] 232 10*3/uL 150-450 [facility] RBC Auto (Bld) [#/Vol]Ordere d By: Jennie Navarro on 01-25-2025 RBC (Bld) [#/Vol] 2.87 10*6/uL Low 4.2-5.4 [facility] TYPE AND SCREENon 01-25-2025 ABO and Rh group Nom (Bld) Blood group O Rh(D) positive [facility] ABO and Rh group Nom (Bld) No Previous Results [facility] Blood group antibody screen Ql Negative [facility] Specimen Expiration Date [id number] [facility] Telephone Encounteron 2024 Social Services Manager Authentication Interface Message Text I was called by [facility] regarding a transfer from [place]. That facility is requesting transfer because Services [...] or Unavailable at the time of acceptance, [facility] can supply the call back number. The [...] Keyon Fallon DO Division of Hospital Medicine, [facility] Pager#: [phone] Normal [facility] White blood cell (WBC) count Ordered By: Jennie Navarro on 01-25-2025 WBC (Bld) [#/Vol] 8.0 10*3/uL 4.4-11.0 [place] 12 Lead EKGon 01-24-2025 12 Lead EKG [facility] [address] [place] [address] 12 Lead EKG 01/24/25 2219 MR#: [id number] Acct: [id number] Name: ELY HURTADO Rep #: [id number] : 1940 84 From: Pascual Bonilla MD [...] Abnormal ECG Confirmed by PASCUAL BONILLA MD ([id number]), publications editor JOSE PEARSON ([id number]) on 01/26/2025 9:35:16 AM Referred By: Confirmed By: PASCUAL BONILLA MD 01/26/25 0935 Date Pascual Bonilla MD CC: Dr. Power Borges DO; Dianna Guido MD Signed Normal [facility] Activated partial thrombopla stin time (aPTT) in platelet poor plasma by coagulation aOrdered By: Power Borges on 01-24-2025 aPTT Coag (PPP) [Time] 30.3 s 24.1-36.2 [facility] Anion gap in Serum or Plasma Ordered By: Power Borges on 01-24-2025 Anion gap [Moles/Vol] 12 mmol/L 5-15 [facility] BRCon 01-24-2025 RC Normal [facility] Comment on above: Result Comment: [id number] OP RC TRANSFUSED 01/25/25 0738 [id number] OP RC TRANSFUSED 01/25/25 0535 Performed By: #### L 500.4100, L501.5200, L500.4050 #### [facility] [address] [place], [address] BUN/creatinine ratioOrdered By: Power Borges on 01-24-2025 Urea nitrogen/Creatinine [Mass ratio] 18.4 mg/mg - [facility] Basic Metabolic Profile (BMP )on 01-24-2025 BUN/CRE 18.4 RATIO Normal 03-28 [facility] Comment on above: Performed By: #### L 500.4100, L501.5200, L500.4050 #### [facility] [address] [place], [address] Calcium [Mass/Vol] 9.0 mg/dL Normal 7.6-11.0 [place] Comment on above: Performed By: #### L 500.4100, L501.5200, L500.4050 #### [facility] [address] [place], [address] Chloride [Moles/Vol] 103 mmol/L Normal 98-108 [facility] Comment on above: Performed By: #### L 500.4100, L501.5200, L500.4050 #### [facility] [address] [place], [address] CO2 [Moles/Vol] 24.8 mmol/L Normal 21.0-32.0 [facility] Comment on above: Performed By: #### L 500.4100, L501.5200, L500.4050 #### [facility] [address] [place], [address] Creatinine [Mass/Vol] 0.84 mg/dL Normal 0.70-1.20 [facility] Comment on above: Performed By: #### L 500.4100, L501.5200, L500.4050 #### [facility] [address] [place], [address] ECRCL 48.18 ml/min Low 50-250 [facility] Comment on above: Performed By: #### L 500.4100, L501.5200, L500.4050 #### [facility] [address] [place], [address] GAP 12 Normal 5-15 [facility] Comment on above: Performed By: #### L 500.4100, L501.5200, L500.4050 #### [facility] [address] [place], [address] GFR/1.73 sq M.predicted among non-blacks MDRD (S/P/Bld) [Vol rate/Area] 69 mL/min/{1.73_m2} Normal >60 [facility] Comment on above: Result Comment: mL/m in/1.73m2 CKD-EPI Creatinine Equation (2020) Performed By: #### L 500.4100, L501.5200, L500.4050 #### [facility] [address] [place], [address] Glucose [Mass/Vol] 116 mg/dL High 70-99 [place] Comment on above: Performed By: #### L 500.4100, L501.5200, L500.4050 #### [facility] [address] [place], [address] Potassium [Moles/Vol] 4.3 mmol/L Normal 3.3-5.1 [facility] Comment on above: Performed By: #### L 500.4100, L501.5200, L500.4050 #### [facility] [address] [place], [address] Sodium [Moles/Vol] 140 mmol/L Normal 133-145 [place] Comment on above: Performed By: #### L 500.4100, L501.5200, L500.4050 #### [facility] [address] [place], [address] Urea nitrogen [Mass/Vol] 15 mg/dL Normal 4-19 [facility] Comment on above: Performed By: #### L 500.4100, L501.5200, L500.4050 #### [facility] [address] [place], [address] CBC W/Diff, Automatedon 01-07 Absolute Lymph 2.22 X10 3/uL Normal 0.83-4.51 [facility] Comment on above: Performed By: #### L 500.2500, L300.4310, L300.3900, M100.7900, BTS, L100.0100 #### [facility] [address] [place], [address] Absolute Neut 6.1 X10 3/uL Normal 2.0-7.7 [facility] Comment on above: Performed By: #### L 500.2500, L300.4310, L300.3900, M100.7900, BTS, L100.0100 #### [facility] [address] [place], [address] Basophils/100 WBC (Bld) 0.4 % Normal 0-1 [facility] Comment on above: Performed By: #### L 500.2500, L300.4310, L300.3900, M100.7900, BTS, L100.0100 #### [facility] [address] [place], [address] Eosinophils/100 WBC (Bld) 1.1 % Normal 0-5 [facility] Comment on above: Performed By: #### L 500.2500, L300.4310, L300.3900, M100.7900, BTS, L100.0100 #### [facility] [address] [place], [address] Erythrocyte distribution width (RBC) [Ratio] 15.8 % High 11.6-14.6 [facility] Comment on above: Performed By: #### L 500.2500, L300.4310, L300.3900, M100.7900, BTS, L100.0100 #### [facility] [address] [place], [address] Hematocrit (Bld) [Volume fraction] 28.7 % Low 37-47 [facility] Comment on above: Performed By: #### L 500.2500, L300.4310, L300.3900, M100.7900, BTS, L100.0100 #### [facility] [address] [place], [address] Hemoglobin (Bld) [Mass/Vol] 8.2 g/dL Low 12.0-15.0 [facility] Comment on above: Performed By: #### L 500.2500, L300.4310, L300.3900, M100.7900, BTS, L100.0100 #### [facility] [address] [place], [address] IG% 0.300 Normal 0.0-0.9 [facility] Comment on above: Result Comment: IG% - Immature Granulocytes (promyelocytes, myelocytes and metamyelocytes) > 1% indicates that a LEFT SHIFT is Present. Performed By: #### L 500.2500, L300.4310, L300.3900, M100.7900, BTS, L100.0100 #### [facility] [address] [place], [address] Lymphocytes/100 WBC (Bld) 22.8 % Normal 19-41 [facility] Comment on above: Performed By: #### L 500.2500, L300.4310, L300.3900, M100.7900, BTS, L100.0100 #### [facility] [address] [place], [address] MCH (RBC) [Entitic mass] 20.7 pg Low 27.0-32.0 [facility] Comment on above: Performed By: #### L 500.2500, L300.4310, L300.3900, M100.7900, BTS, L100.0100 #### [facility] [address] [place], [address] MCHC (RBC) [Mass/Vol] 28.6 g/dL Low 32-36 [facility] Comment on above: Performed By: #### L 500.2500, L300.4310, L300.3900, M100.7900, BTS, L100.0100 #### [facility] [address] [place], [address] MCV (RBC) [Entitic vol] 72.5 fL Low 81-99 [facility] Comment on above: Performed By: #### L 500.2500, L300.4310, L300.3900, M100.7900, BTS, L100.0100 #### [facility] [address] [place], [address] Monocytes/100 WBC (Bld) 12.8 % High 0-10 [facility] Comment on above: Performed By: #### L 500.2500, L300.4310, L300.3900, M100.7900, BTS, L100.0100 #### [facility] [address] [place], [address] Neutrophils/100 WBC (Bld) 62.6 % Normal 47-70 [facility] Comment on above: Performed By: #### L 500.2500, L300.4310, L300.3900, M100.7900, BTS, L100.0100 #### [facility] [address] [place], [address] Nucleated RBC (Bld) [#/Vol] 0 10*3/uL Normal 0-5 [facility] Comment on above: Performed By: #### L 500.2500, L300.4310, L300.3900, M100.7900, BTS, L100.0100 #### [facility] [address] [place], [address] Platelet mean volume (Bld) [Entitic vol] 10.0 fL Normal 6.2-12.0 [facility] Comment on above: Performed By: #### L 500.2500, L300.4310, L300.3900, M100.7900, BTS, L100.0100 #### [facility] [address] [place], [address] Platelets (Bld) [#/Vol] 335 10*3/uL Normal 150-450 [facility] Comment on above: Performed By: #### L 500.2500, L300.4310, L300.3900, M100.7900, BTS, L100.0100 #### [facility] [address] [place], [address] RBC (Bld) [#/Vol] 3.96 10*6/uL Low 4.2-5.4 [facility] Comment on above: Performed By: #### L 500.2500, L300.4310, L300.3900, M100.7900, BTS, L100.0100 #### [facility] [address] [place], [address] RDW SD 41.1 fl Normal 35.1-43.9 [facility] Comment on above: Performed By: #### L 500.2500, L300.4310, L300.3900, M100.7900, BTS, L100.0100 #### [facility] [address] [place], [address] WBC (Bld) [#/Vol] 9.8 10*3/uL Normal 4.4-11.0 [place] Comment on above: Performed By: #### L 500.2500, L300.4310, L300.3900, M100.7900, BTS, L100.0100 #### [facility] [address] [place], [address] CTA Abd/Pelvis W/WO Contrast on 01-24-2025 CTA Abd/Pelvis W/WO Contrast [facility] Services [address] [place] [address] CTA Abd/Pelvis W/WO Contrast MR#: [id number] Acct: [id number] Name: ELY HURTADO Patsy Rep #: [id number] : 1940 F 84 From: Tino Garza MD PCP: Dianna Guido MD Status: REG ER Study: CTA Abd/Pelvis W/WO Contrast Date of Exam: Exam# [id number] Ordering Dr: Power Borges DO PROCEDURE: CTA [...] provider Power Borges 01/24/2025 at 10:50 p.m. GRILL CHEF. Reading Location: [facility] CC: Dr. Power Borges DO; Dianna Guido MD Social Sciences Department Chair: Signed Normal [facility] Carbon dioxide, total [Moles /volume] in Central venous bloodOrdered By: Power Borges on 01-24-2025 CO2 [Moles/Vol] 24.8 mmol/L 21.0-32.0 [facility] Chloride assayOrdered By: Raffaele laureano Katerina on 01-24-2025 Chloride [Moles/Vol] 103 mmol/L 98-108 [facility] Emergency Department Summary on 01-24-2025 Emergency Department Summary [facility] Medical Records Department [address] [place] [address] Emergency Department Summary 01/24/25 MR#: [id number] Acct: [id number] Name: ELY HURTADO Rep #: [id number] : 1940 84 From: Power Weeks PCP: Dianna Guido MD Status:DEP ER Location: ED HPI HPI - GI History of Present Illness Chief Complaint: GI Bleed Informant: patient and EMS Narrative Narrative: Discontinue hydroxyzine sent in from [facility] living for increasing rectal bleeding reported blood [...] 82 Respirato (more content not included)... Normal [facility] Glomerular filtration rate ( GFR) estimation/1.73 sq m using serum, plasma, or whole bOrdered By: Power Borges on 01-24-2025 GFR/1.73 sq M.predicted among non-blacks MDRD (S/P/Bld) [Vol rate/Area] 69 mL/min/{1.73_m2} >60 [facility] Comment on above: mL/min/1.73m2 CKD-EP I Creatinine Equation (2020) International normalized rat io (INR) calculationOrdered By: Power Borges on 01-24-2025 INR Coag (Bld) [Relative time] 1.5 {INR} [facility] Partial Thromboplast Timeon 01-24-2025 aPTT Coag (Bld) [Time] 30.3 s Normal 24.1-36.2 [facility] Comment on above: Performed By: #### L 500.4808, L501.5200, L500.4050 #### [facility] [address] [place], [place], [id number] Potassium measurement (mass/ volume)Ordered By: Power Borges on 01-24-2025 Potassium (Unsp spec) [Mass/Vol] 4.3 mmol/L 3.3-5.1 [facility] Prothrombin Time w/INRon INR Coag (PPP) [Relative time] 1.5 {INR} Normal [facility] Comment on above: Performed By: #### L 500.4100, L501.5200, L500.4050 #### [facility] [address] [place], [address] PT Coag (PPP) [Time] 17.9 s High 11.7-14.9 [facility] Comment on above: Performed By: #### L 500.4100, L501.5200, L500.4050 #### [facility] [address] [place], [address] Prothrombin timeOrdered By: Power Borges on 01-24-2025 PT Coag (PPP) [Time] 17.9 s High 11.7-14.9 [facility] Serum creatinine measurement (mass/volume)Ordered By: Power Borges on 01-24-2025 Creatinine [Mass/Vol] 0.84 mg/dL 0.70-1.20 [facility] Serum glucose measurement (m ass/volume)Ordered By: Power Borges on 01-24-2025 Glucose [Mass/Vol] 116 mg/dL High 70-99 [place] Serum or plasma calcium slava urement (mass/volume)Ordered By: Power Borges on 01-24-2025 Calcium [Mass/Vol] 9.0 mg/dL 7.6-11.0 [place] Serum or plasma urea nitroge n measurement (mass/volume)Ordered By: Power Borges on 01-24-2025 Urea nitrogen [Mass/Vol] 15 mg/dL 4-19 [facility] Sodium levelOrdered By: Power Borges on 01-24-2025 Sodium [Moles/Vol] 140 mmol/L 133-145 [place] Stool Occult Blood iFOBon STOB Positive Normal [facility] Comment on above: Performed By: #### L 500.2500, L300.4310, L300.3900, M100.7900, BTS, L100.0100 #### [facility] [address] [place], [address] Stool gastrointestinal hemog lobin detection by immunologic methodOrdered By: Power Borges on 01-24-2025 Lower GI hemoglobin IA Ql (Stl) Positive Abnormal [facility] Type AND Screenon 01-24-2025 Ab SCREEN GEL Negative Normal [facility] Comment on above: Order Comment: 155 Performed By: #### L 500.4100, L501.5200, L500.4050 #### [facility] [address] [place], [address] Bilirubin directOrdered By: Dianna Guido on 11-08-2024 Bilirubin.direct [Mass/Vol] 0.50 mg/dL High 0.00-0.30 [facility] Bilirubin, totalOrdered By: Dianna Guido on 11-08-2024 Bilirubin [Mass/Vol] 1.21 mg/dL 0.00-1.30 [facility] Laboratory - Chemistry and C hemistry - challengeOrdered By: Dianna Guido on 11-08-2024 AST [Catalytic activity/Vol] 22 U/L <32 [facility] Liver Profileon 11-08-2024 Albumin [Mass/Vol] 3.3 g/dL Low 3.4-4.8 [place] Comment on above: Order Comment: 155 Performed By: #### L 500.3400 #### [facility] [address] [place], [address] ALK PHOS 95 U/L Normal 35-104 [facility] Comment on above: Order Comment: 155 Performed By: #### L 500.3400 #### [facility] [address] [place], [address] ALT [Catalytic activity/Vol] 8 U/L Normal <=34 [facility] Comment on above: Order Comment: 155 Performed By: #### L 500.3400 #### [facility] [address] [place], [address] AST [Catalytic activity/Vol] 22 U/L Normal <=31 [facility] Comment on above: Order Comment: 155 Performed By: #### L 500.3400 #### [facility] [address] [place], [address] Bilirubin [Mass/Vol] 1.21 mg/dL Normal 0.00-1.30 [facility] Comment on above: Order Comment: 155 Performed By: #### L 500.3400 #### [facility] [address] [place], [address] Bilirubin.direct [Mass/Vol] 0.50 mg/dL High 0.00-0.30 [facility] Comment on above: Order Comment: 155 Performed By: #### L 500.3400 #### [facility] [address] [place], [address] Globulin (S) [Mass/Vol] 2.2 g/dL Normal 2.2-4.2 [facility] Comment on above: Order Comment: 155 Performed By: #### L 500.3400 #### [facility] [address] [place], [address] T PROT 5.5 g/dL Low 5.9-8.4 [facility] Comment on above: Order Comment: 155 Performed By: #### L 500.3400 #### [facility] [address] [place], [address] Serum globulin measurementOr dered By: Dianna Guido on 11-08-2024 Globulin (S) [Mass/Vol] 2.2 g/dL 2.2-4.2 [facility] Serum or plasma alanine rasheed otransferase (ALT) measurementOrdered By: Dianna Guido on 11-08-2024 ALT [Catalytic activity/Vol] 8 U/L <35 [facility] Serum or plasma albumin slava urement (mass/volume)Ordered By: Dianna Guido on 11-08-2024 Albumin [Mass/Vol] 3.3 g/dL Low 3.4-4.8 [place] Serum or plasma alkaline [place] sphatase measurementOrdered By: Dianna Guido on 11-08-2024 ALP [Catalytic activity/Vol] 95 U/L 35-104 [facility] Total proteinOrdered By: Zita Guido on 11-08-2024 Protein [Mass/Vol] 5.5 g/dL Low 5.9-8.4 [place] Anion gap in Serum or Plasma Ordered By: Dianna Guido on 10-04-2024 Anion gap [Moles/Vol] 10 mmol/L 5-15 [facility] BUN/creatinine ratioOrdered By: Dianna Guido on 10-04-2024 Urea nitrogen/Creatinine [Mass ratio] 14.3 mg/mg 10-20 [facility] Bilirubin, totalOrdered By: Dianna Guido on 10-04-2024 Bilirubin [Mass/Vol] 1.57 mg/dL High 0.00-1.30 [facility] CBC-Complete Blood Cnt No Di ffon 10-04-2024 Erythrocyte distribution width (RBC) [Ratio] 14.5 % Normal 11.6-14.6 [facility] Comment on above: Order Comment: 155 Performed By: #### L 500.4050, L500.4100, L506.1001, L100.0500 #### [facility] [address] [place], [address] Hematocrit (Bld) [Volume fraction] 37.0 % Normal 37-47 [facility] Comment on above: Order Comment: 155 Performed By: #### L 500.4050, L500.4100, L506.1001, L100.0500 #### [facility] [address] [place], [address] Hemoglobin (Bld) [Mass/Vol] 11.2 g/dL Low 12.0-15.0 [facility] Comment on above: Order Comment: 155 Performed By: #### L 500.4050, L500.4100, L506.1001, L100.0500 #### [facility] [address] [place], [address] MCH (RBC) [Entitic mass] 24.6 pg Low 27.0-32.0 [facility] Comment on above: Order Comment: 155 Performed By: #### L 500.4050, L500.4100, L506.1001, L100.0500 #### [facility] [address] [place], [address] MCHC (RBC) [Mass/Vol] 30.3 g/dL Low 32-36 [facility] Comment on above: Order Comment: 155 Performed By: #### L 500.4050, L500.4100, L506.1001, L100.0500 #### [facility] [address] [place], [address] MCV (RBC) [Entitic vol] 81.1 fL Normal 81-99 [facility] Comment on above: Order Comment: 155 Performed By: #### L 500.4050, L500.4100, L506.1001, L100.0500 #### [facility] [address] [place], [address] Platelet mean volume (Bld) [Entitic vol] 10.8 fL Normal 6.2-12.0 [facility] Comment on above: Order Comment: 155 Performed By: #### L 500.4050, L500.4100, L506.1001, L100.0500 #### [facility] [address] [place], [address] Platelets (Bld) [#/Vol] 333 10*3/uL Normal 150-450 [facility] Comment on above: Order Comment: 155 Performed By: #### L 500.4050, L500.4100, L506.1001, L100.0500 #### [facility] [address] [place], [address] RBC (Bld) [#/Vol] 4.56 10*6/uL Normal 4.2-5.4 [facility] Comment on above: Order Comment: 155 Performed By: #### L 500.4050, L500.4100, L506.1001, L100.0500 #### [facility] [address] [place], [address] RDW SD 42.3 fl Normal 35.1-43.9 [facility] Comment on above: Order Comment: 155 Performed By: #### L 500.4050, L500.4100, L506.1001, L100.0500 #### [facility] [address] [place], [address] WBC (Bld) [#/Vol] 6.5 10*3/uL Normal 4.4-11.0 [place] Comment on above: Order Comment: 155 Performed By: #### L 500.4050, L500.4100, L506.1001, L100.0500 #### [facility] [address] [place], [address] Calculated very low density lipoprotein (VLDL) cholesterol measurementOrdered By: Dianna Guido on 10-04-2024 Calculated very low density lipoprotein (VLDL) cholesterol measurement 16 mg/dL 5-40 [facility] Carbon dioxide, total [Moles /volume] in Central venous bloodOrdered By: Dianna Guido on 10-04-2024 CO2 [Moles/Vol] 28.5 mmol/L 21.0-32.0 [facility] Chloride assayOrdered By: Gonsalo Guido on 10-04-2024 Chloride [Moles/Vol] 105 mmol/L 98-108 [facility] Comprehensive Metabolic Prof ilon 10-04-2024 Chloride [Moles/Vol] 105 mmol/L Normal 98-108 [facility] Comment on above: Order Comment: 155 Performed By: #### L 500.4050, L500.4100, L506.1001, L100.0500 #### [facility] [address] [place], [address] CO2 [Moles/Vol] 28.5 mmol/L Normal 21.0-32.0 [facility] Comment on above: Order Comment: 155 Performed By: #### L 500.4050, L500.4100, L506.1001, L100.0500 #### [facility] [address] [place], [address] GAP 10 Normal 5-15 [facility] Comment on above: Order Comment: 155 Performed By: #### L 500.4050, L500.4100, L506.1001, L100.0500 #### [facility] [address] [place], [address] Potassium [Moles/Vol] 3.8 mmol/L Normal 3.3-5.1 [facility] Comment on above: Order Comment: 155 Performed By: #### L 500.4050, L500.4100, L506.1001, L100.0500 #### [facility] [address] [place], [address] Sodium [Moles/Vol] 143 mmol/L Normal 133-145 [place] Comment on above: Order Comment: 155 Performed By: #### L 500.4050, L500.4100, L506.1001, L100.0500 #### [facility] [address] [place], [address] Albumin [Mass/Vol] 3.9 g/dL Normal 3.4-4.8 [facility] Comment on above: Order Comment: 155 Performed By: #### L 500.4050, L500.4100, L506.1001, L100.0500 #### [facility] [address] [place], [address] Albumin/Globulin [Mass ratio] 1.4 {ratio} Normal 0.9-2.4 [facility] Comment on above: Order Comment: 155 Performed By: #### L 500.4050, L500.4100, L506.1001, L100.0500 #### [facility] [address] [place], [address] ALK PHOS 112 U/L High 35-104 [facility] Comment on above: Order Comment: 155 Performed By: #### L 500.4050, L500.4100, L506.1001, L100.0500 #### [facility] [address] [place], [address] ALT [Catalytic activity/Vol] 9 U/L Normal <=34 [facility] Comment on above: Order Comment: 155 Performed By: #### L 500.4050, L500.4100, L506.1001, L100.0500 #### [facility] [address] [place], [address] AST [Catalytic activity/Vol] 26 U/L Normal <=31 [facility] Comment on above: Order Comment: 155 Performed By: #### L 500.4050, L500.4100, L506.1001, L100.0500 #### [facility] [address] [place], [address] Bilirubin [Mass/Vol] 1.57 mg/dL High 0.00-1.30 [facility] Comment on above: Order Comment: 155 Performed By: #### L 500.4050, L500.4100, L506.1001, L100.0500 #### [facility] [address] [place], [address] BUN/CRE 14.3 RATIO Normal 10-20 [facility] Comment on above: Order Comment: 155 Performed By: #### L 500.4050, L500.4100, L506.1001, L100.0500 #### [facility] [address] [place], [address] Calcium [Mass/Vol] 9.0 mg/dL Normal 7.6-11.0 [facility] Comment on above: Order Comment: 155 Performed By: #### L 500.4050, L500.4100, L506.1001, L100.0500 #### [facility] [address] [place], [address] Creatinine [Mass/Vol] 0.75 mg/dL Normal 0.70-1.20 [facility] Comment on above: Order Comment: 155 Performed By: #### L 500.4050, L500.4100, L506.1001, L100.0500 #### [facility] [address] [place], [address] GFR/1.73 sq M.predicted among non-blacks MDRD (S/P/Bld) [Vol rate/Area] 79 mL/min/{1.73_m2} Normal >60 [facility] Comment on above: Order Comment: 155 Result Comment: mL/m in/1.73m2 CKD-EPI Creatinine Equation (2020) Performed By: #### L 500.4050, L500.4100, L506.1001, L100.0500 #### [facility] [address] [place], [address] Globulin (S) [Mass/Vol] 2.8 g/dL Normal 2.2-4.2 [facility] Comment on above: Order Comment: 155 Performed By: #### L 500.4050, L500.4100, L506.1001, L100.0500 #### [facility] [address] [place], [address] Glucose [Mass/Vol] 93 mg/dL Normal 70-99 [place] Comment on above: Order Comment: 155 Performed By: #### L 500.4050, L500.4100, L506.1001, L100.0500 #### [facility] [address] [place], [address] T PROT 6.7 g/dL Normal 5.9-8.4 [facility] Comment on above: Order Comment: 155 Performed By: #### L 500.4050, L500.4100, L506.1001, L100.0500 #### [facility] [address] [place], [address] Urea nitrogen [Mass/Vol] 11 mg/dL Normal 4-19 [facility] Comment on above: Order Comment: 155 Performed By: #### L 500.4050, L500.4100, L506.1001, L100.0500 #### [facility] [address] [place], [address] Erythrocyte distribution wid th ratioOrdered By: Dianna Guido on 10-04-2024 Erythrocyte distribution width (RBC) [Ratio] 14.5 % 11.6-14.6 [facility] Erythrocyte distribution wid th standard deviationOrdered By: Dianna Guido on 10-04-2024 Erythrocyte distribution width (RBC) [Ratio] 42.3 fl 35.1-43.9 [facility] Glomerular filtration rate ( GFR) estimation/1.73 sq m using serum, plasma, or whole bOrdered By: Dianna Guido on 10-04-2024 GFR/1.73 sq M.predicted among non-blacks MDRD (S/P/Bld) [Vol rate/Area] 79 mL/min/{1.73_m2} >60 [facility] Comment on above: mL/min/1.73m2 CKD-EP I Creatinine Equation (2020) Hematocrit Auto (Bld) [Volum e fraction]Ordered By: Dianna Guido on 10-04-2024 Hematocrit (Bld) [Volume fraction] 37.0 % 37-47 [facility] Hemoglobin measurementOrdere d By: Dianna Guido on 10-04-2024 Hemoglobin (Bld) [Mass/Vol] 11.2 g/dL Low 12.0-15.0 [facility] LDL calc ser/plasOrdered By: Dianna Guido on 10-04-2024 Cholesterol in LDL [Mass/Vol] 65 mg/dL [facility] Comment on above: Eugjwrekhm=019-407 m g/dL & Higher Zlsk=250 mg/dL or greater Laboratory - Chemistry and C hemistry - challengeOrdered By: Dianna Guido on 10-04-2024 AST [Catalytic activity/Vol] 26 U/L <32 [facility] Lipid Profileon 10-04-2024 CHOL:HDL 2.64 Normal [facility] Comment on above: Order Comment: 155 Performed By: #### L 500.4050, L500.4100, L506.1001, L100.0500 #### [facility] [address] [place], [address] Cholesterol in HDL [Mass/Vol] 49 mg/dL Normal [facility] Comment on above: Order Comment: 155 Result Comment: Karis onal Cholesterol Education Program (NCEP) guidelines: <40 mg/dL: Low HDL-cholesterol (major risk factor for CHD) >= 60 mg/dL: High HDL-cholesterol (negative risk factor for CHD) HDL-cholesterol is affected by a number of factors, e.g. smoking, exercise, hormones, sex and age. Performed By: #### L 500.4050, L500.4100, L506.1001, L100.0500 #### [facility] [address] [place], [address] Cholesterol in LDL [Mass/Vol] 65 mg/dL Normal [facility] Comment on above: Order Comment: 155 Result Comment: Bord ugztos=023-695 mg/dL Higher Hcoc=319 mg/dL or greater Performed By: #### L 500.4050, L500.4100, L506.1001, L100.0500 #### [facility] [address] [place], [address] Cholesterol in VLDL [Mass/Vol] 16 mg/dL Normal 5-40 [facility] Comment on above: Order Comment: 155 Performed By: #### L 500.4050, L500.4100, L506.1001, L100.0500 #### [facility] [address] [place], [address] Triglyceride [Mass/Vol] 81 mg/dL Normal [facility] Comment on above: Order Comment: 155 Result Comment: The drugs N-Acetylcysteine and Metamizole may falsely depress this assay. Normal range: <150 mg/dL Borderline High: 150-199 mg/dL High: 200-499 mg/dL Very High: >500 mg/dL Performed By: #### L 500.4050, L500.4100, L506.1001, L100.0500 #### [facility] [address] [place], [address] Cholesterol [Mass/Vol] 130 mg/dL Normal <=200 [facility] Comment on above: Order Comment: 155 Result Comment: Chol esterol level, Desirable <200 mg/dL Borderline high cholesterol 200-239 mg/dL High cholesterol >=240 mg/dL Recommendations of the NCEP Adult Treatment Panel for the following risk-cutoff thresholds for the [place] population. Performed By: #### L 500.4050, L500.4100, L506.1001, L100.0500 #### [facility] [address] [place], [address] MCV (mean corpuscular volume ) determinationOrdered By: Dianna Guido on 10-04-2024 MCV (RBC) [Entitic vol] 81.1 fL 81-99 [facility] Mean corpuscular hemoglobin (MCH) determinationOrdered By: Dianna Guido on 10-04-2024 MCH (RBC) [Entitic mass] 24.6 pg Low 27.0-32.0 [facility] Mean corpuscular hemoglobin concentration (MCHC) determinationOrdered By: Dianna Guido on 10-04-2024 MCHC (RBC) [Mass/Vol] 30.3 g/dL Low 32-36 [facility] Mean platelet volume determi nationOrdered By: Dianna Guido on 10-04-2024 Platelet mean volume (Bld) [Entitic vol] 10.8 fL 6.2-12.0 [facility] Platelet countOrdered By: Gonsalo Guido on 10-04-2024 Platelets (Bld) [#/Vol] 333 10*3/uL 150-450 [facility] Potassium measurement (mass/ volume)Ordered By: Dianna Guido on 10-04-2024 Potassium (Unsp spec) [Mass/Vol] 3.8 mmol/L 3.3-5.1 [facility] RBC Auto (Bld) [#/Vol]Ordere d By: Dianna Guido on 10-04-2024 RBC (Bld) [#/Vol] 4.56 10*6/uL 4.2-5.4 [facility] Screening total cholesterol/ high density lipoprotein (HDL) cholesterol ratioOrdered By: Dianna Guido on 10-04-2024 Cholesterol.total/Chol esterol in HDL [Mass ratio] 2.64 {ratio} [facility] Serum creatinine measurement (mass/volume)Ordered By: Dianna Guido on 10-04-2024 Creatinine [Mass/Vol] 0.75 mg/dL 0.70-1.20 [facility] Serum globulin measurementOr dered By: Dianna Guido on 10-04-2024 Globulin (S) [Mass/Vol] 2.8 g/dL 2.2-4.2 [facility] Serum glucose measurement (m ass/volume)Ordered By: Dianna Guido on 10-04-2024 Glucose [Mass/Vol] 93 mg/dL 70-99 [place] Serum or plasma alanine rasheed otransferase (ALT) measurementOrdered By: Dianna Guido on 10-04-2024 ALT [Catalytic activity/Vol] 9 U/L <35 [facility] Serum or plasma albumin slava urement (mass/volume)Ordered By: Dianna Guido on 10-04-2024 Albumin [Mass/Vol] 3.9 g/dL 3.4-4.8 [place] Serum or plasma albumin/glob ulin mass ratioOrdered By: Dianna Guido on 10-04-2024 Albumin/Globulin [Mass ratio] 1.4 {ratio} 0.9-2.4 [facility] Serum or plasma alkaline [place] sphatase measurementOrdered By: Dianna Guido on 10-04-2024 ALP [Catalytic activity/Vol] 112 U/L High 35-104 [facility] Serum or plasma calcium slava urement (mass/volume)Ordered By: Dianna Guido on 10-04-2024 Calcium [Mass/Vol] 9.0 mg/dL 7.6-11.0 [place] Serum or plasma cholesterol in HDL measurement (mass/volume)Ordered By: Dianna Guido on 10-04-2024 Cholesterol in HDL [Mass/Vol] 49 mg/dL >40 [facility] Comment on above: National Cholesterol Education Program (NCEP) guidelines:<40 mg/dL: Low HDL-cholesterol (major risk factor for CHD)>= 60 mg/dL: High HDL-cholesterol (negative risk factor for CHD)HDL-cholesterol is affected by a number of factors, e.g. smoking, exercise, hormones, sex and age. Serum or plasma cholesterol measurement (mass/volume)Ordered By: Dianna Guido on 10-04-2024 Cholesterol [Mass/Vol] 130 mg/dL <201 [facility] Comment on above: Cholesterol level, D esirable <200 mg/dLBorderline high cholesterol 200-239 mg/dLHigh cholesterol >=240 mg/dLRecommendations of the NCEP Adult Treatment Panel for the following risk-cutoff thresholds for the [place] population. Serum or plasma urea nitroge n measurement (mass/volume)Ordered By: Dianna Guido on 10-04-2024 Urea nitrogen [Mass/Vol] 11 mg/dL 4-19 [facility] Sodium levelOrdered By: Maite Guido on 10-04-2024 Sodium [Moles/Vol] 143 mmol/L 133-145 [facility] Total proteinOrdered By: Zita Guido on 10-04-2024 Protein [Mass/Vol] 6.7 g/dL 5.9-8.4 [facility] Triglycerides measurementOrd ered By: Dianna Guido on 10-04-2024 Triglyceride [Mass/Vol] 81 mg/dL <199 [facility] Comment on above: The drugs N-Acetylcy steine and Metamizole may falsely depress this assay. Normal range: <150 mg/dLBorderline High: 150-199 mg/dLHigh: 200-499 mg/dLVery High: >500 mg/dL Vitamin D,25 Hydroxyon 10-04 Vitamin D 25-OH 42.8 ng/mL Normal 30-100 [facility] Comment on above: Order Comment: 155 Result Comment: Alessandra min D Status Deficiency: <20 ng/mL (50nmol/L) Insufficiency: 20-30 ng/mL (50-75 nmol/L) Sufficiency: 30-100 ng/mL (75-250 nmol/L) Toxicity: >100 ng/mL (>250 nmol/L) Performed By: #### L 500.4050, L500.4100, L506.1001, L100.0500 #### [facility] [address] [place], [address] White blood cell (WBC) count Ordered By: Dianna Guido on 10-04-2024 WBC (Bld) [#/Vol] 6.5 10*3/uL 4.4-11.0 [facility] Comprehensive Metabolic Prof ilon 05-31-2024 Albumin [Mass/Vol] 3.2 g/dL Normal 3.2-5.0 [facility] Comment on above: Order Comment: 155 Performed By: #### L 500.4100, L501.5200, L500.4050 #### [facility] [address] [place], [address] Albumin/Globulin [Mass ratio] 0.9 {ratio} Normal 0.9-2.4 [facility] Comment on above: Order Comment: 155 Performed By: #### L 500.4100, L501.5200, L500.4050 #### [facility] [address] [place], [address] ALK P 115 U/L Normal 45-117 [facility] Comment on above: Order Comment: 155 Performed By: #### L 500.4100, L501.5200, L500.4050 #### [facility] [address] [place], [address] ALT [Catalytic activity/Vol] 17 U/L Normal 13-56 [facility] Comment on above: Order Comment: 155 Performed By: #### L 500.4100, L501.5200, L500.4050 #### [facility] [address] [place], [address] AST [Catalytic activity/Vol] 23 U/L Normal 15-37 [facility] Comment on above: Order Comment: 155 Performed By: #### L 500.4100, L501.5200, L500.4050 #### [facility] [address] [place], [address] Bilirubin [Mass/Vol] 1.60 mg/dL High 0.20-1.00 [facility] [facility] Comment on above: Order Comment: 155 Result Comment: For patients on eltrombopag therapy, use of Dimension [place] TBIL is not recommended. Performed By: #### L 500.4100, L501.5200, [id number] #### [facility] [address] [place], [address] BUN/CRE 14.9 RATIO Normal 10-20 [facility] Comment on above: Order Comment: 155 Performed By: #### L 500.4100, [id number], [id number] #### [facility] [address] [place], [address] CA,Total 9.1 mg/dL Normal 8.5-10.1 [facility] Comment on above: Order Comment: 155 Performed By: #### L 500.4100, [id number], [id number] #### [facility] [address] [place], [address] Chloride [Moles/Vol] 109 mmol/L High 98-107 [facility] Comment on above: Order Comment: 155 Performed By: #### L 500.4100, [id number], [id number] #### [facility] [address] [place], [address] CO2 [Moles/Vol] 31.0 mmol/L Normal 21.0-32.0 [facility] Comment on above: Order Comment: 155 Performed By: #### L 500.4100, [id number], [id number] #### [facility] [address] [place], [address] Creatinine [Mass/Vol] 0.74 mg/dL Normal 0.55-1.02 [facility] Comment on above: Order Comment: 155 Result Comment: The validity of the calculated GFR GFRAA in patients over 70 years has not been determined. Clinical correlation is essential. Performed By: #### L 500.4100, [id number], [id number] #### [facility] [address] [place], [address] EST GFR - AA 97 mL/min Normal >60 [facility] Comment on above: Order Comment: 155 Result Comment: Afri can Ivorian GFR Calc Performed By: #### L 500.4100, [id number], [id number] #### [facility] [address] [place], [address] GAP 4 Low 5-15 [facility] Comment on above: Order Comment: 155 Performed By: #### L 500.4100, [id number], [id number] #### [facility] [address] [place], [address] GFR/1.73 sq M.predicted among non-blacks MDRD (S/P/Bld) [Vol rate/Area] 80 mL/min/{1.73_m2} Normal >60 [facility] Comment on above: Order Comment: 155 Result Comment: Non- GFR Calc Performed By: #### L 500.4100, L501.5200, [id number] #### [facility] [address] [place], [address] Globulin (S) [Mass/Vol] 3.4 g/dL Normal 2.2-4.2 [facility] Comment on above: Order Comment: 155 Performed By: #### L 500.4100, [id number], [id number] #### [facility] [address] [place], [address] Glucose [Mass/Vol] 97 mg/dL Normal 74-106 [place] Comment on above: Order Comment: 155 Performed By: #### L 500.4100, [id number], [id number] #### [facility] [address] [place], [address] Potassium [Moles/Vol] 3.9 mmol/L Normal 3.5-5.1 [facility] Comment on above: Order Comment: 155 Performed By: #### L 500.4100, [id number], [id number] #### [facility] [address] [place], [address] Sodium [Moles/Vol] 143 mmol/L Normal 136-145 [place] Comment on above: Order Comment: 155 Performed By: #### L 500.4100, [id number], [id number] #### [facility] [address] [place], [address] T PROT 6.6 g/dL Normal 6.4-8.2 [facility] Comment on above: Order Comment: 155 Performed By: #### L 500.4100, [id number], [id number] #### [facility] [address] [place], [address] Urea nitrogen [Mass/Vol] 11 mg/dL Normal 7-18 [facility] Comment on above: Order Comment: 155 Performed By: #### L 500.4100, [id number], [id number] #### [facility] [address] [place], [address] Lipid Profileon 05-31-2024 Cholesterol [Mass/Vol] 128 mg/dL Normal 200 [facility] Comment on above: Order Comment: 155 Result Comment: <200 mg/dL Desirable 200-240 mg/dL Borderline >240 mg/dL High Risk Performed By: #### L 500.4100, [id number], [id number] #### [facility] [address] [place], [address] Cholesterol in HDL [Mass/Vol] 57 mg/dL Normal [facility] Comment on above: Order Comment: 155 Result Comment: The drugs N-Acetylcysteine and Metamizole may falsely depress this assay. Reference Range HDL <40 mg/dL Low HDL Cholesterol HDL >or= 60 mg/dL High HDL Cholesterol Performed By: #### L 500.4100, L501.5200, [id number] #### [facility] [address] [place], [address] Cholesterol in LDL [Mass/Vol] 52 mg/dL Normal 0-130 [facility] Comment on above: Order Comment: 155 Performed By: #### L 500.4100, [id number], [id number] #### [facility] [address] [place], [address] Cholesterol in VLDL [Mass/Vol] 19 mg/dL Normal 5-40 [facility] Comment on above: Order Comment: 155 Performed By: #### L 500.4100, [id number], [id number] #### [facility] [address] [place], [address] Triglyceride [Mass/Vol] 97 mg/dL Normal [facility] Comment on above: Order Comment: 155 Result Comment: The drugs N-Acetylcysteine and Metamizole may falsely depress this assay. Serum Triglycerides Reference Interval Normal <150 mg/dL Borderline high 150 - 199 mg/dL High 200 - 499 mg/dL Very High > or = 500 mg/dL Performed By: #### L 500.4100, [id number], [id number] #### [facility] [address] [place], [address] Magnesiumon 05-31-2024 Magnesium [Mass/Vol] 2.4 mg/dL Normal 1.6-2.6 [facility] Comment on above: Order Comment: 155 Performed By: #### L 500.4100, [id number], [id number] #### [facility] [address] [place], [address] Anaerobic cultureOrdered By: Andie Bernal on 05-22-2023 Bacteria identified Anaer cx Nom (Unsp spec) No anaerobic bacteria isolated. [facility] Bacteria identified Cx Nom ( Wound)Ordered By: Andie Bernal on 05-22-2023 Wound Culture Enterococcus faecalis [facility] Wound Culture Staphylococcus lugdunensis [facility] Gram stain for investigation of transfusion reactionOrdered By: Andie Bernal on 05-22-2023 Microscopic observation Gram stain Nom (Unsp spec) [facility] Absolute lymphocyte countOrd ered By: Dianna Guido on 05-19-2023 Lymphocytes Auto (Unsp spec) [#/Vol] 2.12 10*3/uL 0.83-4.51 [facility] Basophil percentageOrdered B y: Dianna Guido on 05-19-2023 Basophils/100 WBC (Bld) 1.0 % 0-1 [facility] Eosinophils/100 WBC (Bld) 3.2 % 0-5 [facility] Neutrophils (Bld) [#/Vol] 3.6 10*3/uL 2.0-7.7 [facility] Neutrophils/100 WBC (Bld) 52.8 % 47-70 [facility] WBC (Bld) [#/Vol] 6.9 10*3/uL 4.4-11.0 [place] Blood erythrocytes count (nu mber/volume)Ordered By: Dianna Guido on 05-19-2023 RBC (Bld) [#/Vol] 5.10 10*6/uL 4.2-5.4 [facility] Blood hemoglobin measurement (mass/volume)Ordered By: Dianna Guido on 05-19-2023 Hemoglobin (Bld) [Mass/Vol] 14.0 g/dL 12.0-15.0 [facility] Blood lymphocytes/100 leukoc ytesOrdered By: Dianna Guido on 05-19-2023 Lymphocytes/100 WBC (Bld) 30.9 % 19-41 [facility] Blood monocytes/100 leukocyt esOrdered By: Diannahunter Guido on 05-19-2023 Monocytes/100 WBC (Bld) 11.8 % 0-10 [facility] Blood platelet mean volumeOr dered By: Dianna Guido on 05-19-2023 Platelet mean volume (Bld) [Entitic vol] 10.6 fL 6.2-12.0 [facility] Determination of erythrocyte mean corpuscular volume (MCV)Ordered By: Dianna Guido on 05-19-2023 MCV (RBC) [Entitic vol] 90.8 fL 81-99 [facility] Hematocrit Auto (Bld) [Volum e fraction]Ordered By: Dianna Guido on 05-19-2023 Hematocrit (Bld) [Volume fraction] 46.3 % 37-47 [facility] - Hematology and Cell countsOrdered By: Dianna Guido on 05-19-2023 Erythrocyte distribution width (RBC) [Entitic vol] 46.1 fL 35.1-43.9 [facility] Erythrocyte distribution width (RBC) [Ratio] 13.7 % 11.6-14.6 [facility] Immature granulocytes/100 WBC (Bld) 0.300 % 0.0-0.9 [facility] Comment on above: IG% - Immature Granu locytes (promyelocytes, myelocytes and metamyelocytes) > 1% indicates that a LEFT SHIFT is Present. MCH (RBC) [Entitic mass] 27.5 pg 27.0-32.0 [facility] Nucleated RBC/100 WBC (Bld) [Ratio] 0 % 0-5 [facility] MCHC Auto (RBC) [Mass/Vol]Or dered By: Dianna Guido on 05-19-2023 MCHC (RBC) [Mass/Vol] 30.2 g/dL 32-36 [facility] Platelets bldOrdered By: Zita Guido on 05-19-2023 Platelets (Bld) [#/Vol] 285 10*3/uL 150-450 [facility] Bacteria identified Cx Nom ( Wound)Ordered By: Dianna Guido on 05-16-2023 Wound Culture Presumptive E. coli [facility] Gram stain for investigation of transfusion reactionOrdered By: Dianna Guido on 05-16-2023 Microscopic observation Gram stain Nom (Unsp spec) [facility] Basophil percentageOrdered B y: Dianna Guido on 05-14-2023 WBC (Bld) [#/Vol] 6.8 10*3/uL 4.4-11.0 [place] Blood erythrocytes count (nu mber/volume)Ordered By: Dianna Guido on 05-14-2023 RBC (Bld) [#/Vol] 5.19 10*6/uL 4.2-5.4 [facility] Blood hemoglobin measurement (mass/volume)Ordered By: Dianna Guido on 05-14-2023 Hemoglobin (Bld) [Mass/Vol] 14.2 g/dL 12.0-15.0 [facility] Blood platelet mean volumeOr dered By: Dianna Guido on 05-14-2023 Platelet mean volume (Bld) [Entitic vol] 10.4 fL 6.2-12.0 [facility] Determination of erythrocyte mean corpuscular volume (MCV)Ordered By: Dianna Guido on 05-14-2023 MCV (RBC) [Entitic vol] 88.8 fL 81-99 [facility] Hematocrit Auto (Bld) [Volum e fraction]Ordered By: Dianna Guido on 05-14-2023 Hematocrit (Bld) [Volume fraction] 46.1 % 37-47 [facility] - Hematology and Cell countsOrdered By: Dianna Guido on 12-06-2023 Erythrocyte distribution width (RBC) [Entitic vol] 44.3 fL 35.1-43.9 [facility] Erythrocyte distribution width (RBC) [Ratio] 13.6 % 11.6-14.6 [facility] MCH (RBC) [Entitic mass] 27.4 pg 27.0-32.0 [facility] MCHC Auto (RBC) [Mass/Vol]Or dered By: Dianna Guido on 05-14-2023 MCHC (RBC) [Mass/Vol] 30.8 g/dL 32-36 [facility] Platelets bldOrdered By: Zita Guido on 05-14-2023 Platelets (Bld) [#/Vol] 289 10*3/uL 150-450 [facility] Absolute lymphocyte countOrd ered By: Dianna Guido on 04-28-2023 Lymphocytes Auto (Unsp spec) [#/Vol] 1.69 10*3/uL 0.83-4.51 [facility] Basophil percentageOrdered B y: Dianna Guido on 04-28-2023 Basophils/100 WBC (Bld) 0.9 % 0-1 [facility] Chloride [Moles/Vol] 105 mmol/L 98-107 [facility] Eosinophils/100 WBC (Bld) 3.1 % 0-5 [facility] Glucose [Mass/Vol] 93 mg/dL 74-106 [place] Neutrophils (Bld) [#/Vol] 3.6 10*3/uL 2.0-7.7 [facility] Neutrophils/100 WBC (Bld) 56.0 % 47-70 [facility] Potassium [Moles/Vol] 3.6 mmol/L 3.5-5.1 [facility] Sodium [Moles/Vol] 143 mmol/L 136-145 [place] WBC (Bld) [#/Vol] 6.4 10*3/uL 4.4-11.0 [place] Blood erythrocytes count (nu mber/volume)Ordered By: Dianna Guido on 04-28-2023 RBC (Bld) [#/Vol] 4.76 10*6/uL 4.2-5.4 [facility] Blood hemoglobin measurement (mass/volume)Ordered By: Dianna Guido on 04-28-2023 Hemoglobin (Bld) [Mass/Vol] 13.0 g/dL 12.0-15.0 [facility] Blood lymphocytes/100 leukoc ytesOrdered By: Dianna Guido on 04-28-2023 Lymphocytes/100 WBC (Bld) 26.3 % 19-41 [facility] Blood monocytes/100 leukocyt esOrdered By: Dianna Guido on 04-28-2023 Monocytes/100 WBC (Bld) 13.4 % 0-10 [facility] Blood platelet mean volumeOr dered By: Dianna Guido on 04-28-2023 Platelet mean volume (Bld) [Entitic vol] 10.6 fL 6.2-12.0 [facility] Determination of erythrocyte mean corpuscular volume (MCV)Ordered By: Dianna Guido on 04-28-2023 MCV (RBC) [Entitic vol] 91.0 fL 81-99 [facility] Hematocrit Auto (Bld) [Volum e fraction]Ordered By: Dianna Guido on 04-28-2023 Hematocrit (Bld) [Volume fraction] 43.3 % 37-47 [facility] - Chemistry and C hemistry - challengeOrdered By: Dianna Guido on 04-28-2023 CO2 [Moles/Vol] 34.0 mmol/L 21.0-32.0 [facility] Magnesium [Mass/Vol] 2.3 mg/dL 1.6-2.6 [facility] Urea nitrogen/Creatinine [Mass ratio] 12.9 mg/mg 10-20 [facility] - Hematology and Cell countsOrdered By: Dianna Guido on 04-28-2023 Erythrocyte distribution width (RBC) [Entitic vol] 45.0 fL 35.1-43.9 [facility] Erythrocyte distribution width (RBC) [Ratio] 13.4 % 11.6-14.6 [facility] Immature granulocytes/100 WBC (Bld) 0.300 % 0.0-0.9 [facility] Comment on above: IG% - Immature Granu locytes (promyelocytes, myelocytes and metamyelocytes) > 1% indicates that a LEFT SHIFT is Present. MCH (RBC) [Entitic mass] 27.3 pg 27.0-32.0 [facility] Nucleated RBC/100 WBC (Bld) [Ratio] 0 % 0-5 [facility] MCHC Auto (RBC) [Mass/Vol]Or dered By: Dianna Guido on 04-28-2023 MCHC (RBC) [Mass/Vol] 30.0 g/dL 32-36 [facility] No Panel InformationOrdered By: Dianna Guido on 04-28-2023 Estimated GFR (MDRD) Amer 92 mL/min >60 [facility] Comment on above: GFR Calc Estimated GFR (MDRD) Non-Af Amer 76 mL/min >60 [facility] Comment on above: Non- GFR Calc Platelets bldOrdered By: Zita Guido on 04-28-2023 Platelets (Bld) [#/Vol] 253 10*3/uL 150-450 [facility] Serum or plasma calcium slava urement (mass/volume)Ordered By: Dianna Guido on 04-28-2023 Calcium [Mass/Vol] 8.6 mg/dL 8.5-10.1 [place] Serum or plasma creatinine m easurement (mass/volume)Ordered By: Dianna Guido on 04-28-2023 Creatinine [Mass/Vol] 0.78 mg/dL 0.55-1.02 [facility] Comment on above: The validity of the calculated GFR & GFRAA in patients over 70 years has not been determined. Clinical correlation is essential. Serum or plasma urea nitroge n measurement (mass/volume)Ordered By: Dianna Guido on 04-28-2023 Urea nitrogen [Mass/Vol] 10 mg/dL 7-18 [facility] Thin prep Papanicolaou smear with manual screeningOrdered By: Dianna Guido on 04-28-2023 Thin prep Papanicolaou smear with manual screening 4 5-15 [facility] Basophil percentageOrdered B y: Dianna Guido on 03-26-2023 Chloride [Moles/Vol] 104 mmol/L 98-107 [facility] Glucose [Mass/Vol] 98 mg/dL 74-106 [place] Potassium [Moles/Vol] 3.9 mmol/L 3.5-5.1 [facility] Sodium [Moles/Vol] 140 mmol/L 136-145 [facility] - Chemistry and C hemistry - challengeOrdered By: Dianna Guido on 03-26-2023 CO2 [Moles/Vol] 33.0 mmol/L 21.0-32.0 [facility] Magnesium [Mass/Vol] 2.5 mg/dL 1.6-2.6 [facility] Urea nitrogen/Creatinine [Mass ratio] 15.0 mg/mg 10- [facility] No Panel InformationOrdered By: Dianna Guido on 03-26-2023 Estimated GFR (MDRD) Amer 98 mL/min >60 [facility] Comment on above: GFR Calc Estimated GFR (MDRD) Non-Af Amer 81 mL/min >60 [facility] Comment on above: Non- GFR Calc Serum or plasma calcium slava urement (mass/volume)Ordered By: Dianna Guido on 03-26-2023 Calcium [Mass/Vol] 9.1 mg/dL 8.5-10.1 [place] Serum or plasma creatinine m easurement (mass/volume)Ordered By: Dianna Guido on 03-26-2023 Creatinine [Mass/Vol] 0.73 mg/dL 0.55-1.02 [facility] Comment on above: The validity of the calculated GFR & GFRAA in patients over 70 years has not been determined. Clinical correlation is essential. Serum or plasma urea nitroge n measurement (mass/volume)Ordered By: Dianna Guido on 03-26-2023 Urea nitrogen [Mass/Vol] 11 mg/dL - [facility] Thin prep Papanicolaou smear with manual screeningOrdered By: Dianna Guido on 03-26-2023 Thin prep Papanicolaou smear with manual screening 3 - [facility] Basophil percentageOrdered B y: Dianna Guido on 02-27-2023 Chloride [Moles/Vol] 105 mmol/L 98-107 [facility] Glucose [Mass/Vol] 103 mg/dL 74-106 [place] Comment on above: Fasting Glucose resu lt from 100 to 125 mg/dL suggests IMPAIRED HOMEOSTASIS per A.D.A. criteria. Potassium [Moles/Vol] 3.8 mmol/L 3.5-5.1 [facility] Sodium [Moles/Vol] 140 mmol/L 136-145 [facility] - Chemistry and C hemistry - challengeOrdered By: Dianna Gudio on 02-27-2023 CO2 [Moles/Vol] 33.0 mmol/L 21.0-32.0 [facility] Magnesium [Mass/Vol] 2.3 mg/dL 1.6-2.6 [facility] Urea nitrogen/Creatinine [Mass ratio] 13.1 mg/mg 10-20 [facility] No Panel InformationOrdered By: Dianna Guido on 02-27-2023 Estimated GFR (MDRD) Amer 93 mL/min >60 [facility] Comment on above: GFR Calc Estimated GFR (MDRD) Non-Af Amer 77 mL/min >60 [facility] Comment on above: Non- GFR Calc Serum or plasma calcium slava urement (mass/volume)Ordered By: Dianna Guido on 02-27-2023 Calcium [Mass/Vol] 8.9 mg/dL 8.5-10.1 [place] Serum or plasma creatinine m easurement (mass/volume)Ordered By: Dianna Guido on 02-27-2023 Creatinine [Mass/Vol] 0.76 mg/dL 0.55-1.02 [facility] Comment on above: The validity of the calculated GFR & GFRAA in patients over 70 years has not been determined. Clinical correlation is essential. Serum or plasma urea nitroge n measurement (mass/volume)Ordered By: Dianna Guido on 02-27-2023 Urea nitrogen [Mass/Vol] 10 mg/dL 7-18 [facility] Thin prep Papanicolaou smear with manual screeningOrdered By: Dianna Guido on 02-27-2023 Thin prep Papanicolaou smear with manual screening 2 5-15 [facility] Basophil percentageOrdered B y: Dianna Guido on 01-03-2023 Chloride [Moles/Vol] 104 mmol/L 98-107 [facility] Glucose [Mass/Vol] 107 mg/dL 74-106 [place] Comment on above: Fasting Glucose resu lt from 100 to 125 mg/dL suggests IMPAIRED HOMEOSTASIS per A.D.A. criteria. Potassium [Moles/Vol] 3.8 mmol/L 3.5-5.1 [facility] Sodium [Moles/Vol] 141 mmol/L 136-145 [facility] - Chemistry and C hemistry - challengeOrdered By: Dianna Guido on 01-03-2023 CO2 [Moles/Vol] 31.0 mmol/L 21.0-32.0 [facility] Urea nitrogen/Creatinine [Mass ratio] 10.0 mg/mg 10-20 [facility] No Panel InformationOrdered By: Dianna Guido on 01-03-2023 Estimated GFR (MDRD) Amer 104 mL/min >60 [facility] Comment on above: GFR Calc Estimated GFR (MDRD) Non-Af Amer 86 mL/min >60 [facility] Comment on above: Non- GFR Calc Serum or plasma calcium slava urement (mass/volume)Ordered By: Dianna Guido on 01-03-2023 Calcium [Mass/Vol] 9.0 mg/dL 8.5-10.1 [place] Serum or plasma creatinine m easurement (mass/volume)Ordered By: Dianna Guido on 01-03-2023 Creatinine [Mass/Vol] 0.70 mg/dL 0.55-1.02 [facility] Comment on above: The validity of the calculated GFR & GFRAA in patients over 70 years has not been determined. Clinical correlation is essential. Serum or plasma urea nitroge n measurement (mass/volume)Ordered By: Dianna Guido on 01-03-2023 Urea nitrogen [Mass/Vol] 7 mg/dL - [facility] Thin prep Papanicolaou smear with manual screeningOrdered By: Dianna Guido on 01-03-2023 Thin prep Papanicolaou smear with manual screening 6 5-15 [facility] Absolute lymphocyte countOrd ered By: Dianna Guido on 12-24-2022 Lymphocytes Auto (Unsp spec) [#/Vol] 1.38 10*3/uL 0.83-4.51 [facility] Basophil percentageOrdered B y: Dianna Guido on 12-24-2022 Basophils/100 WBC (Bld) 0.7 % 0-1 [facility] Chloride [Moles/Vol] 103 mmol/L 98-107 [facility] Eosinophils/100 WBC (Bld) 2.5 % 0-5 [facility] Glucose [Mass/Vol] 111 mg/dL 74-106 [place] Comment on above: Fasting Glucose resu lt from 100 to 125 mg/dL suggests IMPAIRED HOMEOSTASIS per A.D.A. criteria. Neutrophils (Bld) [#/Vol] 3.7 10*3/uL 2.0-7.7 [facility] Neutrophils/100 WBC (Bld) 62.1 % 47-70 [facility] Potassium [Moles/Vol] 3.4 mmol/L 3.5-5.1 [facility] Sodium [Moles/Vol] 139 mmol/L 136-145 [place] WBC (Bld) [#/Vol] 5.9 10*3/uL 4.4-11.0 [place] Blood erythrocytes count (nu mber/volume)Ordered By: Dianna Guido on 12-24-2022 RBC (Bld) [#/Vol] 5.38 10*6/uL 4.2-5.4 [facility] Blood hemoglobin measurement (mass/volume)Ordered By: Dianna Guido on 12-24-2022 Hemoglobin (Bld) [Mass/Vol] 14.9 g/dL 12.0-15.0 [facility] Blood lymphocytes/100 leukoc ytesOrdered By: Dianna Guido on 12-24-2022 Lymphocytes/100 WBC (Bld) 23.4 % 19-41 [facility] Blood monocytes/100 leukocyt esOrdered By: Dianna Guido on 12-24-2022 Monocytes/100 WBC (Bld) 11.0 % 0-10 [facility] Blood platelet mean volumeOr dered By: Dianna Guido on 12-24-2022 Platelet mean volume (Bld) [Entitic vol] 9.6 fL 6.2-12.0 [facility] Determination of erythrocyte mean corpuscular volume (MCV)Ordered By: Dianna Guido on 12-24-2022 MCV (RBC) [Entitic vol] 90.0 fL 81-99 [facility] Hematocrit Auto (Bld) [Volum e fraction]Ordered By: Dianna Guido on 12-24-2022 Hematocrit (Bld) [Volume fraction] 48.4 % 37-47 [facility] - Chemistry and C hemistry - challengeOrdered By: Dianna Guido on 12-24-2022 CO2 [Moles/Vol] 31.0 mmol/L 21.0-32.0 [facility] Urea nitrogen/Creatinine [Mass ratio] 9.0 mg/mg 10-20 [facility] - Hematology and Cell countsOrdered By: Dianna Guido on 12-24-2022 Erythrocyte distribution width (RBC) [Entitic vol] 44.5 fL 35.1-43.9 [facility] Erythrocyte distribution width (RBC) [Ratio] 13.5 % 11.6-14.6 [facility] Immature granulocytes/100 WBC (Bld) 0.300 % 0.0-0.9 [facility] Comment on above: IG% - Immature Granu locytes (promyelocytes, myelocytes and metamyelocytes) > 1% indicates that a LEFT SHIFT is Present. MCH (RBC) [Entitic mass] 27.7 pg 27.0-32.0 [facility] Nucleated RBC/100 WBC (Bld) [Ratio] 0 % 0-5 [facility] MCHC Auto (RBC) [Mass/Vol]Or dered By: Dianna Guido on 12-24-2022 MCHC (RBC) [Mass/Vol] 30.8 g/dL 32-36 [facility] No Panel InformationOrdered By: Dianna Guido on 12-24-2022 Estimated GFR (MDRD) Amer 109 mL/min >60 [facility] Comment on above: GFR Calc Estimated GFR (MDRD) Non-Af Amer 90 mL/min >60 [facility] Comment on above: Non- GFR Calc Platelets bldOrdered By: Zita Guido on 12-24-2022 Platelets (Bld) [#/Vol] 283 10*3/uL 150-450 [facility] Serum or plasma calcium slava urement (mass/volume)Ordered By: Dianna Guido on 12-24-2022 Calcium [Mass/Vol] 8.8 mg/dL 8.5-10.1 [place] Serum or plasma creatinine m easurement (mass/volume)Ordered By: Dianna Guido on 12-24-2022 Creatinine [Mass/Vol] 0.67 mg/dL 0.55-1.02 [facility] Comment on above: The validity of the calculated GFR & GFRAA in patients over 70 years has not been determined. Clinical correlation is essential. Serum or plasma urea nitroge n measurement (mass/volume)Ordered By: Dianna Guido on 12-24-2022 Urea nitrogen [Mass/Vol] 6 mg/dL 7-18 [facility] Thin prep Papanicolaou smear with manual screeningOrdered By: Dianna Guido on 12-24-2022 Thin prep Papanicolaou smear with manual screening 5 5-15 [facility] Absolute lymphocyte countOrd ered By: Dianna Guido on 11-05-2022 Lymphocytes Auto (Unsp spec) [#/Vol] 1.42 10*3/uL 0.83-4.51 [facility] Basophil percentageOrdered B y: Dianna Guido on 11-05-2022 Basophils/100 WBC (Bld) 0.6 % 0-1 [facility] Chloride [Moles/Vol] 106 mmol/L 98-107 [facility] Eosinophils/100 WBC (Bld) 4.1 % 0-5 [facility] Glucose [Mass/Vol] 90 mg/dL 74-106 [place] Neutrophils (Bld) [#/Vol] 3.0 10*3/uL 2.0-7.7 [facility] Neutrophils/100 WBC (Bld) 55.5 % 47-70 [facility] Potassium [Moles/Vol] 4.0 mmol/L 3.5-5.1 [facility] Sodium [Moles/Vol] 141 mmol/L 136-145 [place] WBC (Bld) [#/Vol] 5.4 10*3/uL 4.4-11.0 [place] Blood erythrocytes count (nu mber/volume)Ordered By: Dianna Guido on 11-05-2022 RBC (Bld) [#/Vol] 5.26 10*6/uL 4.2-5.4 [facility] Blood hemoglobin measurement (mass/volume)Ordered By: Dianna Guido on 11-05-2022 Hemoglobin (Bld) [Mass/Vol] 14.8 g/dL 12.0-15.0 [facility] Blood lymphocytes/100 leukoc ytesOrdered By: Diannahunter Guido on 11-05-2022 Lymphocytes/100 WBC (Bld) 26.5 % 19-41 [facility] Blood monocytes/100 leukocyt esOrdered By: Dianna Guido on 11-05-2022 Monocytes/100 WBC (Bld) 13.1 % 0-10 [facility] Blood platelet mean volumeOr dered By: Dianna Guido on 11-05-2022 Platelet mean volume (Bld) [Entitic vol] 9.8 fL 6.2-12.0 [facility] Determination of erythrocyte mean corpuscular volume (MCV)Ordered By: Dianna Guido on 11-05-2022 MCV (RBC) [Entitic vol] 89.9 fL 81-99 [facility] Hematocrit Auto (Bld) [Volum e fraction]Ordered By: Dianna Guido on 11-05-2022 Hematocrit (Bld) [Volume fraction] 47.3 % 37-47 [facility] - Chemistry and C hemistry - challengeOrdered By: Dianna Guido on 11-05-2022 CO2 [Moles/Vol] 29.0 mmol/L 21.0-32.0 [facility] Urea nitrogen/Creatinine [Mass ratio] 9.3 mg/mg 10-20 [facility] - Hematology and Cell countsOrdered By: Dianna Guido on 11-05-2022 Erythrocyte distribution width (RBC) [Entitic vol] 44.0 fL 35.1-43.9 [facility] Erythrocyte distribution width (RBC) [Ratio] 13.4 % 11.6-14.6 [facility] Immature granulocytes/100 WBC (Bld) 0.200 % 0.0-0.9 [facility] Comment on above: IG% - Immature Granu locytes (promyelocytes, myelocytes and metamyelocytes) > 1% indicates that a LEFT SHIFT is Present. MCH (RBC) [Entitic mass] 28.1 pg 27.0-32.0 [facility] Nucleated RBC/100 WBC (Bld) [Ratio] 0 % 0-5 [facility] MCHC Auto (RBC) [Mass/Vol]Or dered By: Dianna Guido on 11-05-2022 MCHC (RBC) [Mass/Vol] 31.3 g/dL 32-36 [facility] No Panel InformationOrdered By: Dianna Guido on 11-05-2022 Estimated GFR (MDRD) Amer 113 mL/min >60 [facility] Comment on above: GFR Calc Estimated GFR (MDRD) Non-Af Amer 94 mL/min >60 [facility] Comment on above: Non- GFR Calc Platelets bldOrdered By: Zita Guido on 11-05-2022 Platelets (Bld) [#/Vol] 239 10*3/uL 150-450 [facility] Serum or plasma calcium slava urement (mass/volume)Ordered By: Dianna Guido on 11-05-2022 Calcium [Mass/Vol] 9.0 mg/dL 8.5-10.1 [place] Serum or plasma creatinine m easurement (mass/volume)Ordered By: Dianna Guido on 11-05-2022 Creatinine [Mass/Vol] 0.65 mg/dL 0.55-1.02 [facility] Comment on above: The validity of the calculated GFR & GFRAA in patients over 70 years has not been determined. Clinical correlation is essential. Serum or plasma urea nitroge n measurement (mass/volume)Ordered By: Dianna Guido on 11-05-2022 Urea nitrogen [Mass/Vol] 6 mg/dL 7-18 [facility] Thin prep Papanicolaou smear with manual screeningOrdered By: Dianna Guido on 11-05-2022 Thin prep Papanicolaou smear with manual screening 6 5-15 [facility] Absolute lymphocyte counton 04-06-2022 Lymphocytes Auto (Unsp spec) [#/Vol] 1.25 10*3/uL 0.83-4.51 [facility] Work Phone: Basophil percentageon 2021 Basophils/100 WBC (Bld) 0.4 % 0-1 [facility] Work Phone: Chloride [Moles/Vol] 100 mmol/L 98-107 [facility] Work Phone: Eosinophils/100 WBC (Bld) 0.7 % 0-5 [facility] Work Phone: [phone] Glucose [Mass/Vol] 116 mg/dL 74-106 [place] Work Phone: Comment on above: Fasting Glucose resu lt from 100 to 125 mg/dL suggests IMPAIRED HOMEOSTASIS per A.D.A. criteria. Neutrophils (Bld) [#/Vol] 3.5 10*3/uL 2.0-7.7 [facility] Work Phone: Neutrophils/100 WBC (Bld) 60.5 % 47-70 [facility] Work Phone: [phone] Potassium [Moles/Vol] 4.4 mmol/L 3.5-5.1 [facility] Work Phone: [phone] Sodium [Moles/Vol] 135 mmol/L 136-145 [place] Work Phone: [phone] WBC (Bld) [#/Vol] 5.7 10*3/uL 4.4-11.0 [place] Work Phone: [phone] Blood erythrocytes count (nu mber/volume)on 04-06-2022 RBC (Bld) [#/Vol] 4.96 10*6/uL 4.2-5.4 [facility] Work Phone: [phone] Blood hemoglobin measurement (mass/volume)on 04-06-2022 Hemoglobin (Bld) [Mass/Vol] 14.0 g/dL 12.0-15.0 [facility] Work Phone: Blood lymphocytes/100 leukoc yteson 04-06-2022 Lymphocytes/100 WBC (Bld) 21.9 % 19-41 [facility] Work Phone: Blood monocytes/100 leukocyt eson 04-06-2022 Monocytes/100 WBC (Bld) 16.3 % 0-10 [facility] Work Phone: Blood platelet mean volumeon 04-06-2022 Platelet mean volume (Bld) [Entitic vol] 9.7 fL 6.2-12.0 [facility] Work Phone: Determination of erythrocyte mean corpuscular volume (MCV)on 04-06-2022 MCV (RBC) [Entitic vol] 89.5 fL 81-99 [facility] Work Phone: Hematocrit Auto (Bld) [Volum e fraction]on 04-06-2022 Hematocrit (Bld) [Volume fraction] 44.4 % 37-47 [facility] Work Phone: Laboratory - Chemistry and C hemistry - challengeon 04-06-2022 CO2 [Moles/Vol] 28.0 mmol/L 21.0-32.0 [facility] Work Phone: Urea nitrogen/Creatinine [Mass ratio] 19.6 mg/mg 10-20 [facility] Work Phone: Laboratory - Hematology and Cell countson 04-06-2022 Erythrocyte distribution width (RBC) [Entitic vol] 45.3 fL 35.1-43.9 [facility] Work Phone: Erythrocyte distribution width (RBC) [Ratio] 13.9 % 11.6-14.6 [facility] Work Phone: Immature granulocytes/100 WBC (Bld) 0.200 % 0.0-0.9 [facility] Work Phone: Comment on above: IG% - Immature Granu locytes (promyelocytes, myelocytes and metamyelocytes) > 1% indicates that a LEFT SHIFT is Present. MCH (RBC) [Entitic mass] 28.2 pg 27.0-32.0 [facility] Work Phone: Nucleated RBC/100 WBC (Bld) [Ratio] 0 % 0-5 [facility] Work Phone: MCHC Auto (RBC) [Mass/Vol]on 04-06-2022 MCHC (RBC) [Mass/Vol] 31.5 g/dL 32-36 [facility] Work Phone: No Panel Informationon 04-06 Estimated GFR (MDRD) Amer 101 mL/min >60 [facility] Work Phone: Comment on above: GFR Calc Estimated GFR (MDRD) Non-Af Amer 84 mL/min >60 [facility] Work Phone: Comment on above: Non- GFR Calc Platelets bldon 04-06-2022 Platelets (Bld) [#/Vol] 212 10*3/uL 150-450 [facility] Work Phone: Serum or plasma C reactive p rotein measurement (mass/volume)on 04-06-2022 CRP [Mass/Vol] 8.87 mg/L 0.0-3.0 [facility] Work Phone: Comment on above: C-Reactive Protein ( CRP) provides useful information for thediagnosis, therapy and monitoring of inflammatory processesand associated diseases. For the evaluation of Relative Riskfor Cardiovascular Disease, a High Sensitivity CRP (HSCRP)should be ordered. Serum or plasma calcium slava urement (mass/volume)on 04-06-2022 Calcium [Mass/Vol] 8.4 mg/dL 8.5-10.1 [place] Work Phone: Serum or plasma creatinine m easurement (mass/volume)on 04-06-2022 Creatinine [Mass/Vol] 0.71 mg/dL 0.55-1.02 [facility] Work Phone: Comment on above: The validity of the calculated GFR & GFRAA in patients over 70 years has not been determined. Clinical correlation is essential. Serum or plasma urea nitroge n measurement (mass/volume)on 04-06-2022 Urea nitrogen [Mass/Vol] 14 mg/dL 7-18 [facility] Work Phone: Thin prep Papanicolaou smear with manual screeningon 04-06-2022 Thin prep Papanicolaou smear with manual screening 7 5-15 [facility] Work Phone: Absolute lymphocyte counton 03-11-2022 Lymphocytes Auto (Unsp spec) [#/Vol] 1.69 10*3/uL 0.83-4.51 [facility] Work Phone: Basophil percentageon 2021 Basophils/100 WBC (Bld) 1.1 % 0-1 [facility] Work Phone: Bilirubin [Mass/Vol] 1.80 mg/dL 0.20-1.00 [facility] Work Phone: Comment on above: For patients on eltr ombopag therapy, use of Dimension [place] TBIL is not recommended. Chloride [Moles/Vol] 107 mmol/L 98-107 [facility] Work Phone: Cholesterol [Mass/Vol] 131 mg/dL <200 [facility] Work Phone: Comment on above: <200 mg/dL Desirable 200-240 mg/dL Borderline >240 mg/dL High Risk Eosinophils/100 WBC (Bld) 3.7 % 0-5 [facility] Work Phone: Glucose [Mass/Vol] 96 mg/dL 74-106 [place] Work Phone: Neutrophils (Bld) [#/Vol] 3.4 10*3/uL 2.0-7.7 [facility] Work Phone: Neutrophils/100 WBC (Bld) 54.8 % 47-70 [facility] Work Phone: Potassium [Moles/Vol] 4.0 mmol/L 3.5-5.1 [facility] Work Phone: Protein [Mass/Vol] 6.3 g/dL 6.4-8.2 [place] Work Phone: Sodium [Moles/Vol] 143 mmol/L 136-145 [place] Work Phone: Triglyceride [Mass/Vol] 111 mg/dL <199 [facility] Work Phone: Comment on above: The drugs N-Acetylcy steine and Metamizole may falsely depress this assay.Serum Triglycerides Reference Interval Normal <150 mg/dL Borderline high 150 - 199 mg/dL High 200 - 499 mg/dL Very High > or = 500 mg/dL WBC (Bld) [#/Vol] 6.2 10*3/uL 4.4-11.0 [place] Work Phone: Blood erythrocytes count (nu mber/volume)on 03-11-2022 RBC (Bld) [#/Vol] 4.99 10*6/uL 4.2-5.4 [facility] Work Phone: Blood hemoglobin measurement (mass/volume)on 03-11-2022 Hemoglobin (Bld) [Mass/Vol] 13.7 g/dL 12.0-15.0 [facility] Work Phone: Blood lymphocytes/100 leukoc yteson 03-11-2022 Lymphocytes/100 WBC (Bld) 27.5 % 19-41 [facility] Work Phone: Blood monocytes/100 leukocyt eson 03-11-2022 Monocytes/100 WBC (Bld) 12.7 % 0-10 [facility] Work Phone: Blood platelet mean volumeon 03-11-2022 Platelet mean volume (Bld) [Entitic vol] 9.7 fL 6.2-12.0 [facility] Work Phone: Determination of erythrocyte mean corpuscular volume (MCV)on 03-11-2022 MCV (RBC) [Entitic vol] 91.0 fL 81-99 [facility] Work Phone: Hematocrit Auto (Bld) [Volum e fraction]on 03-11-2022 Hematocrit (Bld) [Volume fraction] 45.4 % 37-47 [facility] Work Phone: Laboratory - Chemistry and C hemistry - challengeon 03-11-2022 ALP [Catalytic activity/Vol] 73 U/L 45-117 [facility] Work Phone: [phone] ALT [Catalytic activity/Vol] 22 U/L 13-56 [facility] Work Phone: CO2 [Moles/Vol] 32.0 mmol/L 21.0-32.0 [facility] Work Phone: [phone] Globulin (S) [Mass/Vol] 3.2 g/dL 2.2-4.2 [facility] Work Phone: [phone] Magnesium [Mass/Vol] 2.3 mg/dL 1.6-2.6 [facility] Work Phone: [phone] Urea nitrogen/Creatinine [Mass ratio] 13.9 mg/mg 10-20 [facility] Work Phone: [phone] Laboratory - Hematology and Cell countson 03-11-2022 Erythrocyte distribution width (RBC) [Entitic vol] 45.4 fL 35.1-43.9 [facility] Work Phone: Erythrocyte distribution width (RBC) [Ratio] 13.5 % 11.6-14.6 [facility] Work Phone: Immature granulocytes/100 WBC (Bld) 0.200 % 0.0-0.9 [facility] Work Phone: [phone] Comment on above: IG% - Immature Granu locytes (promyelocytes, myelocytes and metamyelocytes) > 1% indicates that a LEFT SHIFT is Present. MCH (RBC) [Entitic mass] 27.5 pg 27.0-32.0 [facility] Work Phone: [phone] Nucleated RBC/100 WBC (Bld) [Ratio] 0 % 0-5 [facility] Work Phone: MCHC Auto (RBC) [Mass/Vol]on 03-11-2022 MCHC (RBC) [Mass/Vol] 30.2 g/dL 32-36 [facility] Work Phone: No Panel Informationon 03-11 Estimated GFR (MDRD) Amer 100 mL/min >60 [facility] Work Phone: Comment on above: GFR Calc Estimated GFR (MDRD) Non-Af Amer 83 mL/min >60 [facility] Work Phone: Comment on above: Non- GFR Calc Platelets bldon 03-11-2022 Platelets (Bld) [#/Vol] 267 10*3/uL 150-450 [facility] Work Phone: Serum or plasma albumin slava urement (mass/volume)on 03-11-2022 Albumin [Mass/Vol] 3.1 g/dL 3.2-5.0 [place] Work Phone: Serum or plasma albumin/glob ulin mass ratioon 03-11-2022 Albumin/Globulin [Mass ratio] 1.0 {ratio} 0.9-2.4 [facility] Work Phone: Serum or plasma calcium slava urement (mass/volume)on 03-11-2022 Calcium [Mass/Vol] 8.7 mg/dL 8.5-10.1 [place] Work Phone: Serum or plasma cholesterol in HDL measurement (mass/volume)on 03-11-2022 Cholesterol in HDL [Mass/Vol] 52 mg/dL >40 [facility] Work Phone: Comment on above: The drugs N-Acetylcy steine and Metamizole may falsely depress this assay. Reference Range HDL <40 mg/dL Low HDL Cholesterol HDL >or= 60 mg/dL High HDL Cholesterol Serum or plasma cholesterol in VLDL measurement (mass/volume)on 03-11-2022 Cholesterol in VLDL [Mass/Vol] 22 mg/dL 5-40 [facility] Work Phone: Serum or plasma creatinine m easurement (mass/volume)on 03-11-2022 Creatinine [Mass/Vol] 0.72 mg/dL 0.55-1.02 [facility] Work Phone: Comment on above: The validity of the calculated GFR & GFRAA in patients over 70 years has not been determined. Clinical correlation is essential. Serum or plasma low density lipoprotein (LDL) cholesterol measurement (mass/volume)on 03-11-2022 Cholesterol in LDL [Mass/Vol] 57 mg/dL 0-130 [facility] Work Phone: Serum or plasma urea nitroge n measurement (mass/volume)on 03-11-2022 Urea nitrogen [Mass/Vol] 10 mg/dL 7-18 [facility] Work Phone: Thin prep Papanicolaou smear with manual screeningon 03-11-2022 Thin prep Papanicolaou smear with manual screening 22 U/L 15-37 [facility] Work Phone: Thin prep Papanicolaou smear with manual screening 4 5-15 [facility] Work Phone: Absolute lymphocyte counton 11-19-2021 Lymphocytes Auto (Unsp spec) [#/Vol] 1.92 10*3/uL 0.83-4.51 [facility] Work Phone: Basophil percentageon 2021 Basophils/100 WBC (Bld) 0.5 % 0-1 [facility] Work Phone: Bilirubin [Mass/Vol] 2.00 mg/dL 0.20-1.00 [facility] Work Phone: Comment on above: For patients on eltr ombopag therapy, use of Dimension [place] TBIL is not recommended. Chloride [Moles/Vol] 105 mmol/L 98-107 [facility] Work Phone: Cholesterol [Mass/Vol] 147 mg/dL <200 [facility] Work Phone: Comment on above: <200 mg/dL Desirable 200-240 mg/dL Borderline >240 mg/dL High Risk Eosinophils/100 WBC (Bld) 2.5 % 0-5 [facility] Work Phone: [phone] Glucose [Mass/Vol] 89 mg/dL 74-106 [place] Work Phone: Neutrophils (Bld) [#/Vol] 4.6 10*3/uL 2.0-7.7 [facility] Work Phone: Neutrophils/100 WBC (Bld) 61.2 % 47-70 [facility] Work Phone: [phone] Potassium [Moles/Vol] 3.4 mmol/L 3.5-5.1 [facility] Work Phone: Protein [Mass/Vol] 7.0 g/dL 6.4-8.2 [place] Work Phone: Sodium [Moles/Vol] 140 mmol/L 136-145 [place] Work Phone: Triglyceride [Mass/Vol] 108 mg/dL <199 [facility] Work Phone: Comment on above: The drugs N-Acetylcy steine and Metamizole may falsely depress this assay.Serum Triglycerides Reference Interval Normal <150 mg/dL Borderline high 150 - 199 mg/dL High 200 - 499 mg/dL Very High > or = 500 mg/dL WBC (Bld) [#/Vol] 7.5 10*3/uL 4.4-11.0 [place] Work Phone: Blood erythrocytes count (nu mber/volume)on 11-19-2021 RBC (Bld) [#/Vol] 5.13 10*6/uL 4.2-5.4 [facility] Work Phone: Blood hemoglobin measurement (mass/volume)on 11-19-2021 Hemoglobin (Bld) [Mass/Vol] 14.4 g/dL 12.0-15.0 [facility] Work Phone: Blood lymphocytes/100 leukoc yteson 11-19-2021 Lymphocytes/100 WBC (Bld) 25.5 % 19-41 [facility] Work Phone: Blood monocytes/100 leukocyt eson 11-19-2021 Monocytes/100 WBC (Bld) 10.0 % 0-10 [facility] Work Phone: Blood platelet mean volumeon 11-19-2021 Platelet mean volume (Bld) [Entitic vol] 9.6 fL 6.2-12.0 [facility] Work Phone: Determination of erythrocyte mean corpuscular volume (MCV)on 11-19-2021 MCV (RBC) [Entitic vol] 88.9 fL 81-99 [facility] Work Phone: Hematocrit Auto (Bld) [Volum e fraction]on 11-19-2021 Hematocrit (Bld) [Volume fraction] 45.6 % 37-47 [facility] Work Phone: Laboratory - Chemistry and C hemistry - challengeon 11-19-2021 ALP [Catalytic activity/Vol] 83 U/L 45-117 [facility] Work Phone: ALT [Catalytic activity/Vol] 22 U/L 13-56 [facility] Work Phone: CO2 [Moles/Vol] 29.0 mmol/L 21.0-32.0 [facility] Work Phone: Globulin (S) [Mass/Vol] 3.5 g/dL 2.2-4.2 [facility] Work Phone: Magnesium [Mass/Vol] 2.3 mg/dL 1.6-2.6 [facility] Work Phone: Urea nitrogen/Creatinine [Mass ratio] 15.4 mg/mg 10-20 [facility] Work Phone: Laboratory - Hematology and Cell countson 11-19-2021 Erythrocyte distribution width (RBC) [Entitic vol] 43.1 fL 35.1-43.9 [facility] Work Phone: Erythrocyte distribution width (RBC) [Ratio] 13.2 % 11.6-14.6 [facility] Work Phone: Immature granulocytes/100 WBC (Bld) 0.300 % 0.0-0.9 [facility] Work Phone: Comment on above: IG% - Immature Granu locytes (promyelocytes, myelocytes and metamyelocytes) > 1% indicates that a LEFT SHIFT is Present. MCH (RBC) [Entitic mass] 28.1 pg 27.0-32.0 [facility] Work Phone: Nucleated RBC/100 WBC (Bld) [Ratio] 0 % 0-5 [facility] Work Phone: MCHC Auto (RBC) [Mass/Vol]on 11-19-2021 MCHC (RBC) [Mass/Vol] 31.6 g/dL 32-36 [facility] Work Phone: No Panel Informationon 11-19 Estimated GFR (MDRD) Amer 102 mL/min >60 [facility] Work Phone: Comment on above: GFR Calc Estimated GFR (MDRD) Non-Af Amer 84 mL/min >60 [facility] Work Phone: Comment on above: Non- GFR Calc Vitamin D 25-Hydroxy 51.6 ng/mL [facility] Work Phone: Comment on above: Vitamin D 25(OH) Sta tus Range Deficiency <20 ng/mL (50nmol/L) Insufficiency 20 - 30 ng/mL (50 - 75 nmol/L) Sufficiency 30 - 100 ng/mL (75 - 250 nmol/L) Toxicity >100 ng/mL (>250 nmol/L) Platelets bldon 11-19-2021 Platelets (Bld) [#/Vol] 277 10*3/uL 150-450 [facility] Work Phone: Serum or plasma albumin slava urement (mass/volume)on 11-19-2021 Albumin [Mass/Vol] 3.5 g/dL 3.2-5.0 [place] Work Phone: Serum or plasma albumin/glob ulin mass ratioon 11-19-2021 Albumin/Globulin [Mass ratio] 1.0 {ratio} 0.9-2.4 [facility] Work Phone: Serum or plasma calcium slava urement (mass/volume)on 11-19-2021 Calcium [Mass/Vol] 9.1 mg/dL 8.5-10.1 [place] Work Phone: Serum or plasma cholesterol in HDL measurement (mass/volume)on 11-19-2021 Cholesterol in HDL [Mass/Vol] 63 mg/dL >40 [facility] Work Phone: Comment on above: The drugs N-Acetylcy steine and Metamizole may falsely depress this assay. Reference Range HDL <40 mg/dL Low HDL Cholesterol HDL >or= 60 mg/dL High HDL Cholesterol Serum or plasma cholesterol in VLDL measurement (mass/volume)on 11-19-2021 Cholesterol in VLDL [Mass/Vol] 22 mg/dL 5-40 [facility] Work Phone: Serum or plasma creatinine m easurement (mass/volume)on 11-19-2021 Creatinine [Mass/Vol] 0.71 mg/dL 0.55-1.02 [facility] Work Phone: Comment on above: The validity of the calculated GFR & GFRAA in patients over 70 years has not been determined. Clinical correlation is essential. Serum or plasma low density lipoprotein (LDL) cholesterol measurement (mass/volume)on 11-19-2021 Cholesterol in LDL [Mass/Vol] 62 mg/dL 0-130 [facility] Work Phone: Serum or plasma urea nitroge n measurement (mass/volume)on 11-19-2021 Urea nitrogen [Mass/Vol] 11 mg/dL 7-18 [facility] Work Phone: Thin prep Papanicolaou smear with manual screeningon 11-19-2021 Thin prep Papanicolaou smear with manual screening 27 U/L 15-37 [facility] Work Phone: Thin prep Papanicolaou smear with manual screening 6 5-15 [facility] Work Phone: Culture, urineon 08-17-2021 Bacteria identified Cx Nom (U) Enterococcus faecalis [facility] Work Phone: CBC (NO DIFF)on 11-24-2019 CBC (NO DIFF) Normal [facility] [place] Comment on above: Result Comment: CBC( WITHOUT DIFFERENTIAL) Performed By: #### [id number] #### [facility],[address] [place] [address] [id number] Erythrocyte distribution width (RBC) [Ratio] 13.9 % Normal 12.0 - 15.6 [facility] Comment on above: Performed By: #### 2 [id number] #### [facility],[address] [place] [address] [id number] Hematocrit (Bld) [Volume fraction] 44.1 % Normal 34.0 - 46.0 [facility] Comment on above: Performed By: #### 2 [id number] #### [facility],[address] [place] [address] 07488 Hemoglobin (Bld) [Mass/Vol] 15.0 g/dL Normal 12.0 - 16.0 [facility] Comment on above: Performed By: #### 2 [id number] #### [facility],[address] [place] [address] 03958 MCH (RBC) [Entitic mass] 30 pg Normal 27 - 33 [facility] Comment on above: Performed By: #### 2 [id number] #### [facility],[address] [place] [address] [id number] MCHC (RBC) [Mass/Vol] 34 X10 3 Normal 32 - 36 [facility] Comment on above: Performed By: #### 2 [id number] #### [facility],[address] [place] [address] 57405 MCV (RBC) [Entitic vol] 87 fL Normal 80 - 99 [facility] Comment on above: Performed By: #### 2 [id number] #### [facility],[address] [place] [address] 57895 Platelet mean volume (Bld) [Entitic vol] 7.5 fL Normal 6.6 - 10.5 [facility] Comment on above: Performed By: #### 2 [id number] #### [facility],[address] [place] [address] 93669 Platelets (Bld) [#/Vol] 263 x10EE3/UL Normal 150 - 450 [facility] Comment on above: Performed By: #### 2 [id number] #### [facility],[address] [place] [address] 56182 RBC (Bld) [#/Vol] 5.09 x 10EE6/UL Normal 4.10 - 5.30 [facility] Comment on above: Performed By: #### 2 [id number] #### [facility],[address] [place] [address] 31693 WBC (Bld) [#/Vol] 7.5 x 10EE3/UL Normal 4.5 - 10.8 [facility] Comment on above: Performed By: #### 2 [id number] #### [facility],[address] [place] [address] 92850 CMP with eGFRon 11-24-2019 Age - Reported 79 years Normal [facility] Comment on above: Performed By: #### 2 [id number] #### [facility],[address] [place] [address] 64170 Albumin [Mass/Vol] 4.3 g/dL Normal 3.4 - 4.8 [facility] Comment on above: Performed By: #### 2 [id number] #### [facility],[address] [place] [address] 60919 Albumin/Globulin [Mass ratio] 1.5 {ratio} Normal 0.9 - 1.6 [facility] Comment on above: Performed By: #### 2 [id number] #### [facility],[address] [place] [address] 14177 ALK PHOS 56 U/L Normal 38 - 126 [facility] Comment on above: Performed By: #### 2 [id number] #### [facility],[address] [place] [address] 82421 ALT/SGPT 14 U/L Normal 8 - 35 [facility] Comment on above: Performed By: #### 2 [id number] #### [facility],[address] [place] [address] 94566 Anion gap [Moles/Vol] 11 mmol/L Normal 10 - 20 [facility] Comment on above: Performed By: #### 2 [id number] #### [facility],[address] [place] [address] 14251 AST/SGOT 22 U/L Normal 13 - 39 [facility] Comment on above: Performed By: #### 2 [id number] #### [facility],[address] [place] [address] 17022 B/C RATIO 18 ratio Normal 0 - 30 [facility] Comment on above: Performed By: #### 2 [id number] #### [facility],[address] [place] [address] 52054 Bilirubin [Mass/Vol] 1.8 mg/dL High 0.0 - 1.5 [facility] Comment on above: Performed By: #### 2 [id number] #### [facility],[address] [place] [address] 05583 Calcium [Mass/Vol] 9.6 mg/dL Normal 8.6 - 10.2 [facility] Comment on above: Performed By: #### 2 [id number] #### [facility],[address] [place] [address] 01997 Chloride [Moles/Vol] 100 mmol/L Normal 98 - 107 [facility] Comment on above: Performed By: #### 2 [id number] #### [facility],[address] [place] [address] 07235 CO2 [Moles/Vol] 28.8 mmol/L Normal 21.0 - 31.0 [facility] Comment on above: Performed By: #### 2 [id number] #### [facility],[address] [place] [address] 33950 Creatinine [Mass/Vol] 0.6 mg/dL Normal 0.6 - 1.2 [facility] Comment on above: Performed By: #### 2 [id number] #### [facility],[address] [place] [address] 39181 GFR/1.73 sq M predicted among non-blacks MDRD (S/P/Bld) [Vol rate/Area] mL/min/{1.73_m2} Normal 60 - 999 [facility] Comment on above: Result Comment: ACCO RDING TO THE NATIONAL KIDNEY DISEASE EDUCATION PROGRAM(NKDE), A NORMAL eGFR IS A VALUE GREATER THAN OR EQUAL TO 60 ML/MIN/1.73 SQ METERS. CHRONIC KIDNEY DISEASE: <60mL/MIN/1.73 SQ METERS KIDNEY FAILURE: <15mL/MIN/1.73 SQ METERS THIS TEST SHOULD ONLY BE USED FOR PATIENTS 18 YEARS OF AGE AND OLDER. Performed By: #### 2 [id number] #### [facility],[address] [place] [address] 37211 GFR/1.73 sq M predicted among non-blacks MDRD (S/P/Bld) [Vol rate/Area] Normal [facility] Comment on above: Result Comment: COMP REHENSIVE METABOLIC PANEL Performed By: #### 2 [id number] #### [facility],[address] [place] [address] 41155 Globulin (S) [Mass/Vol] 2.9 g/dL Normal 1.5 - 3.8 [facility] Comment on above: Performed By: #### 2 [id number] #### [facility],[address] [place] [address] 45894 Glucose [Mass/Vol] 90 mg/dL Normal 74 - 106 [facility] Comment on above: Performed By: #### 2 [id number] #### [facility],[address] [place] [address] 16145 Potassium [Moles/Vol] 3.8 mmol/L Normal 3.5 - 5.1 [facility] Comment on above: Performed By: #### 2 [id number] #### [facility] [facility],[address] [place] [id number] Protein [Mass/Vol] 7.2 g/dL Normal 6.4 - 8.3 [facility] Comment on above: Performed By: #### 2 [id number] #### [facility],[address] [place] [id number] Sodium [Moles/Vol] 136 mmol/L Normal 136 - 145 [facility] Comment on above: Performed By: #### 2 [id number] #### [facility],[address] [place] [address] [id number] Urea nitrogen [Mass/Vol] 11 mg/dL Normal 6 - 20 [facility] Comment on above: Performed By: #### 2 [id number] #### [facility],[address] [place] [id number] Culture, urine Bacteria identified Cx Nom (U) Enterococcus faecalis [facility] Work Phone: Vital Signs Date Time Vital Sign Value Performing Clinician Facility 01-31-2025 14:08-0400 Body temperature 98.49 [degF] Alicia Nava MD Work Phone: [facility] 01-31-2025 14:08-0400 Diastolic blood pressure 71 mm[Hg] Alicia Nava MD Work Phone: [facility] 01-31-2025 14:08-0400 Heart rate 85 /min Alicia Nava MD Work Phone: [facility] 01-31-2025 14:08-0400 Respiratory rate 18 /min Alicia Nava MD Work Phone: [facility] 01-31-2025 14:08-0400 SaO2% (BldA) [Mass fraction] 97 % Alicia Nava MD Work Phone: [facility] 01-31-2025 14:08-0400 Systolic blood pressure 110 mm[Hg] Alicia Nava MD Work Phone: [facility] 01-31-2025 04:47-0400 Body mass index (BMI) [Ratio] 20.05 kg/m2 Alicia Naav MD Work Phone: [facility] 01-31-2025 04:47-0400 Body weight 61.6 kg Alicia Nava MD Work Phone: [facility] 01-25-2025 18:06-0400 Heart rate 82 /min Alicia Nava MD Work Phone: [facility] 01-25-2025 12:05-0400 Body height 175.3 cm Alicia Nava MD Work Phone: [facility] 01-25-2025 10:43-0400 Diastolic blood pressure 74 mm[Hg] Dr. Karen Lang MD Work Phone: [facility] 01-25-2025 10:43-0400 Heart rate 84 /min Dr. Karen Lang MD Work Phone: [facility] 01-25-2025 10:43-0400 Respiratory rate 15 /min Dr. Karen Lang MD Work Phone: [facility] 01-25-2025 10:43-0400 SaO2% (BldA) [Mass fraction] 96 % Dr. Karen Lang MD Work Phone: [facility] 01-25-2025 10:43-0400 Systolic blood pressure 110 mm[Hg] Dr. Karen Lang MD Work Phone: [facility] 01-25-2025 09:43-0400 Body temperature 98.4 [degF] Dr. Karen Lang MD Work Phone: [facility] 01-24-2025 21:15-0400 Body height 172.[address] Karen Lang MD Work Phone: [facility] 01-24-2025 21:15-0400 Body mass index (BMI) [Ratio] 19.8 kg/m2 Dr. Karen Lang MD Work Phone: [facility] 01-24-2025 21:15-0400 Body weight 59.[address] Karen Lang MD Work Phone: [facility] 06-25-2023 14:01-0500 Body mass index (BMI) [Ratio] 21 kg/m2 [facility] 06-25-2023 14:01-0500 Body temperature 96.7 [degF] [facility] 06-25-2023 14:01-0500 Diastolic blood pressure 75 mm[Hg] [facility] 06-25-2023 14:01-0500 Heart rate 83 /min [facility] 06-25-2023 14:01-0500 Respiratory rate 16 /min [facility] 06-25-2023 14:01-0500 Systolic blood pressure 125 mm[Hg] [facility] 06-11-2023 13:11-0500 Body mass index (BMI) [Ratio] 21 kg/m2 [facility] 06-11-2023 13:11-0500 Diastolic blood pressure 69 mm[Hg] [facility] 06-11-2023 13:11-0500 Heart rate 83 /min [facility] 06-11-2023 13:11-0500 Respiratory rate 18 /min [facility] 06-11-2023 13:11-0500 Systolic blood pressure 123 mm[Hg] [facility] 06-09-2023 00:26-0500 Body temperature 98.7 [degF] [facility] 06-09-2023 00:26-0500 Body weight 62.77 kg [facility] 06-04-2023 13:12-0500 Body mass index (BMI) [Ratio] 21 kg/m2 [facility] 06-04-2023 13:12-0500 Body temperature 98.7 [degF] [facility] 06-04-2023 13:12-0500 Diastolic blood pressure 67 mm[Hg] [facility] 06-04-2023 13:12-0500 Heart rate 89 /min [facility] 06-04-2023 13:12-0500 Respiratory rate 20 /min [facility] 06-04-2023 13:12-0500 Systolic blood pressure 116 mm[Hg] [facility] 05-28-2023 13:02-0500 Body mass index (BMI) [Ratio] 21 kg/m2 [facility] 05-28-2023 13:02-0500 Diastolic blood pressure 88 mm[Hg] [facility] 05-28-2023 13:02-0500 Heart rate 90 /min [facility] 05-28-2023 13:02-0500 Respiratory rate 16 /min [facility] 05-28-2023 13:02-0500 Systolic blood pressure 131 mm[Hg] [facility] 05-21-2023 13:12-0500 Body height 172.72 cm [facility] 05-21-2023 13:12-0500 Body temperature 96.8 [degF] [facility] 05-21-2023 13:12-0500 Body weight 62.77 kg [facility] Encounters Encounter Date Encounter Type Care Provider Facility Start: 04-13-2025 End: 04-13-2025 Telephone encounter Asmita Allen RN [facility] Start: 04-08-2025 ambulatory Dianna Gudla Facility:[facility] Start: 04-06-2025 End: 04-06-2025 Telephone encounter Asmita Allen RN [facility] Start: 04-04-2025 ambulatory Dianna Gudla OLS Facili ty:[facility] Start: 03-30-2025 End: 03-30-2025 ambulatory Dianna Gudla OLS Facility:[facility] Start: 02-25-2025 End: 02-25-2025 Letter encounter Gi Provider [facility] Start: 02-23-2025 End: 02-23-2025 Refill Isauro Page MD Work Phone: [facility] Comment on above: Refill Start: 02-23-2025 ambulatory ISAURO PAGE Facilit y:[facility] Start: 02-16-2025 End: 02-16-2025 ambulatory Dianna Gudla OLS Facility:[facility] Start: 02-14-2025 End: 02-14-2025 Admission to same day surgery center Isauro Page MD Work Phone: [facility] Start: 02-09-2025 End: 02-09-2025 Admission to same day surgery center Isauro Page MD Work Phone: [facility] Start: 02-09-2025 End: 02-09-2025 ambulatory Dianna Gudla OLS Facility:[facility] Start: 02-02-2025 End: 02-02-2025 ambulatory [facility] Gudla Facility:[facility] Start: 02-01-2025 End: 02-01-2025 Telephone encounter Anselmo Whittaker MD Work Phone: [facility] Radiology Start: 01-28-2025 ambulatory NORA HAYS Facility:[facility] Start: 01-27-2025 ambulatory UNKNOWN PROVIDER Facili ty:[facility] Start: 01-25-2025 End: 01-25-2025 Telephone encounter Keyon Fallon DO Work Phone: [facility] Start: 01-25-2025 End: 01-31-2025 Evaluation and management of inpatient Alicia Nava MD Work Phone: [facility] [address] Comment on above: Rectal bleeding (Trang brandan Dx); Unspecified right bundle-branch block; Abnormal electrocardiogram (ECG) (EKG); Abnormal electrocardiogram (ECG) (EKG); Polyp of ascending colon, unspecified type; Hyperlipidemia, unspecified hyperlipidemia type [E78.5]; Acute blood loss anemia (ABLA) [D62]; 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 Karen Lang MD Work Phone: -Emergency Department Work Phone: Start: 11-08-2024 End: 11-08-[address] Karen Lang MD Work Phone: [facility] Work Phone: Start: 11-08-2024 End: 11-08-[address] Dianna Guido MD -[facility] Work Phone: Start: 11-08-2024 End: 11-08-2024 ambulatory Karenyves Lang Facility:[facility] Start: 10-04-2024 [facility] Start: 10-04-[address] Dianna Guido MD -[facility] Work Phone: Start: 05-31-2024 End: 05-31-2024 [facility] Start: 06-25-2023 End: 07-09-2023 ambulatory [facility] Work Phone: Start: 06-25-2023 End: 07-09-2023 Discharged [facility] Work Phone: Start: 06-11-2023 Registered [facility] Work Phone: Start: 06-04-2023 End: 06-08-2023 ambulatory [facility] Work Phone: Start: 06-04-2023 End: 06-08-2023 Discharged [facility] Work Phone: Start: 05-28-2023 Registered [facility] Work Phone: Start: 05-19-2023 End: 05-19-2023 ambulatory [facility] Work Phone: Start: 05-19-2023 End: 05-19-2023 Departed Referred [facility] Work Phone: Start: 05-16-2023 End: 05-16-2023 ambulatory [facility] Work Phone: Start: 05-16-2023 End: 05-16-2023 Departed Referred [facility] Start: 05-16-2023 Registered Referred [facility] Start: 05-14-2023 End: 05-14-2023 ambulatory [facility] Work Phone: Start: 05-14-2023 End: 05-14-2023 Departed [facility] Work Phone: Start: 04-28-2023 End: 04-28-2023 ambulatory [facility] Work Phone: Start: 04-28-2023 End: 04-28-2023 Departed [facility] Work Phone: Start: 03-26-2023 End: 03-26-2023 ambulatory [facility] Work Phone: Start: 03-26-2023 End: 03-26-2023 [facility] Work [facility]: Start: 02-27-2023 End: 02-27-2023 [facility] Work [facility]: Start: 02-27-2023 Registered Referred [facility] Work Phone: Start: 01-03-2023 End: 01-03-2023 ambulatory [facility] Work Phone: Start: 01-03-2023 End: 01-03-2023 Departed [facility] Work Phone: Start: 12-24-2022 End: 12-24-2022 Departed [facility] Work Phone: Start: 11-05-2022 Registered Referred [facility] Work Phone: Start: 04-06-2022 End: 04-06-2022 ambulatory [facility] Work Phone: Start: 04-06-2022 End: 04-06-2022 Departed [facility] Start: 03-11-2022 End: 03-11-2022 Departed [facility] Start: 11-19-2021 End: 11-19-2021 Departed [facility] Start: 08-17-2021 End: 08-17-2021 Departed [facility] Start: 09-05-2020 End: 09-05-2020 Patient encounter procedure [facility] Start: 08-11-2020 End: 08-11-2020 Patient encounter procedure [facility] Start: 11-24-2019 End: 11-24-2019 Patient encounter procedure MIKE MONTIEL [facility] Start: 11-05-2019 Encounter for genera l adult medical examination without abnormal findings [facility] Start: 11-05-2019 Patient encounter procedure PAUL GARC[facility] Procedures Date Procedure Procedure Detail Performing Clinician Start: 05-23-2025 Colonoscopy Asmita wade RN Start: 04-18-2025 Colonoscopy Isauro Sh belinda DE SOUZA Work Phone: Start: 02-24-2025 Colonoscopy Alicia de [...] Start: 01-25-2025 Blood count complete automated Ketty Geovannaa DO Work Phone: Start: 01-25-2025 Ct angio abd&plvis c ntrst mtrl w/wo cntrst img Wilbert Pérez MD Work Phone: Start: 6 End: 01-25-2025 Blood typing serologic abo Daniel [...] 05-23-2035 Screening for malignant neoplasm of colon [facility] Start: 04-18-2035 Screening for malignant neoplasm of colon [facility] Start: 02-24-2035 Screening for malignant neoplasm of colon [facility] Start: 01-24-2026 Screening for malignant neoplasm of colon FIT [facility] Start: 05-23-2025 End: 05-23-2025 Admission to same day surgery center [facility] Comment on above: COLONOSCOPY + FTR 90 Start: 05-23-2025 End: 05-23-2025 Colonoscopy flx dx w/collj spec when pfrmd [facility] Start: 05-23-2025 Subsequent hospital visit by physician [facility] Start: 05-04-2025 End: 02-01-2026 RFA Hepatic artery Views W contrast IA XA HEPATIC ARTERY COMMON (KATYA) Imaging Routine Aneurysm of hepatic artery (HCC) Expected: 05/04/2025, Expires: 02/01/2026 [facility] Work Phone: Comment on above: Expected: 05/04/2025, Expires: Start: 04-18-2025 End: 04-18-2025 Admission to same day surgery center 04/18/2025 9:00 AM EST - 04/18/2025 10:30 AM EST Surgery [facility] [address] [place] [id number] Isauro Page MD [address] [place] [address] [place] [address] [facility] + FTR [facility] Comment on above: COLONOSCOPY + FTR 90 Start: 04-18-2025 End: 04-18-2025 Colonoscopy flx dx w/collj spec when pfrmd COLONOSCOPY Adenomatous polyp of ascending colon 04/18/2025 9:00 AM EST [facility] Start: 04-18-2025 Subsequent hospital visit by physician 04/18/2025 9:00 AM EST Hospital Encounter [facility] [address] [place] [address] Isauro Page MD [address] [place] [address] [place] [address] [facility] Start: 03-09-2025 Influenza vaccination Influenza Vaccine (#1) [facility] Start: 02-24-2025 End: 02-24-2025 Admission to same day surgery center [facility] Comment on above: COLONOSCOPY Start: 02-24-2025 End: 02-24-2025 Colonoscopy flx dx w/collj spec when pfrmd [facility] Start: 02-24-2025 Subsequent hospital visit by physician [facility] Start: 02-07-2025 COVID-19 Vaccine ( season) COVID-19 Vaccine ( season) [facility] Start: 02-07-2025 COVID-19 Vaccine ( season) COVID-19 Vaccine ( season) [facility] Start: 02-07-2025 Influenza vaccination Influenza Vaccine (#1) [facility] Start: 01-25-2025 Administration of blood product [facility] Start: 01-25-2025 [facility] Start: 01-24-2025 [facility] Start: 01-07-2025 Welcome to Medicare Visit (G0402) Welcome to Medicare Visit (G0402) [facility] Start: 02-08-2024 COVID-19 Vaccine ( season) COVID[facility]19 [facility]ine ( [facility] Start: 05-22-2023 Microbial culture, routine Wound Culture [facility] Start: 05-22-2023 [facility] Start: 2017 RSV vaccine (adult) (1 - [...] A (HAV) Vaccine (optional start 19+ years) [facility] Start: 1960 Tdap Booster Tdap Booster [facility] Anatomic pathology procedure [facility] Comment on above: Release Upon Ordering for 1 Occurrences starting 01/27/2025, 1 completed CBC W Auto Different ial panel - Blood COMPLETE BLOOD COUNT W/DIFF Lab Routine Daily until discontinued starting 01/26/2025, 6 completed [facility] [employer] Work Phone: Comment on above: Daily [...] Fungus identified in Unspecified specimen by Culture [facility] End: 01-25-2025 Guidance for embolization of Artery [employer] Work Phone: Comment on above: Today for 1 Occurrences starting 025 until 01/25/2025 Lactic acid measurement [facility] Patient referral [facility] Work Phone: End: 01-28-2025 RFA Celiac artery Views W contrast [facility] Comment on above: Today for 1 Occurrences starting 025 until 01/28/2025 End: 01-28-2025 RFA Vessels Views W contrast IA [facility] Comment on above: Today for 1 Occurrences starting 025 until 01/28/2025 End: 01-27-2025 Surgical pathology procedure [facility] Work Phone: Comment on above: One time for 1 Occurrences starting 01/08 until 01/27/2025 Release Upon Orderin g for 1 Occurrences starting 01/27/2025 Payers Date Payer Category Payer Medicare (Managed Care) [facility]ICARE [id number] 2024 Medicaid HMO [employer] MEDICAID [id number] 2024 Unknown [id number] 2024 Medicaid [id number] 2024 Self-pay [id number] 2024 Unknown [id number] 1942 Unknown [id number] 2.16840.1.799262.3.579.2. 651 1942 Unknown [id number] 2.16840.1.627959.3.579.2. 65 1942 Unknown [id number] 2.16.840.1.921603.3.579.2. 651 1942 Unknown [id number] 2.16840.1.967094.3.579.2. 65 1942 Unknown [id number] 2.16.840.1.196390.3.579.2. 651 1942 Unknown [id number] 2.840.1.261284.3.579.2. 732 1942 Unknown [id number] 2.840.1.726835.3.579.2. 732 1942 Unknown [id number] 2.0.1.062902.3.579.2. 73 1942 Unknown [id number] 2.840.1.852018.3.579.2. 732 1942 Unknown [id number] 2.0.1.725896.3.579.2. 732 1942 Unknown [id number] 20.1.063417.3.579.2. 73 Blue Cross Blue Shield [id number] Medicare [id number] Medicare [id number] Unknown [id number] Unknown [id number] Unknown [id number] 840.1.738673.3.579.2. 462 Unknown [id number] .840.1.227883.3.579.2. 462 Unknown [id number] .840.1.478064.3.579.2. 462 Unknown [id number] 2.840.1.369751.3.579.2. 462 Unknown [id number] 2.840.1.910726.3.579.2. 462 Unknown [id number] 2.840.1.287992.3.579.2. 462 Unknown [id number] 2.840.1.336360.3.579.2. 462 Unknown [id number] 2.840.1.210377.3.579.2. 462 Unknown [id number] 2.840.1.578299.3.579.2. 462 Unknown [id number] 2.0.1.441743.3.579.2. 462 Unknown [id number] 2.0.1.424915.3.579.2. 462 Social History Date Type Detail Facility Start: 12-24-2019 End: 05-21-2023 Tobacco smoking status LAIS Unknown if ever smoked [facility] Start: 12-24-2019 None [facility] Start: 12-24-2019 Spouse/ Signif icant Other [facility] Start: 02-08-2020 Non-smoker [facility] Start: 1940 Sex Assigned At Female [facility] Start: 05-21-2023 End: 01-24-2025 Tobacco smoking status NHIS Never smoked tobacco (finding) [facility] Start: 1940 Sex assigned at [facility] file [facility] Start: 01-25-2025 Sex Female (finding) [facility] Start: 01-25-2025 Gender identity Not on file [facility] Start: 01-25-2025 History of Social function [facility] Has the [employer], [employer], or water [employer] threatened to shut off services in your home in past 12Mo No [facility] Fear of Current or Ex-Partner Not on file [facility] (I/We) worried wheglynn er (my/our) food would run out before (I/we) got money to buy more. Never true [facility] Medical Equipment Procedure Code Equipment Code Equipment Origin al Text Equipment Identifier Dates Coil Embl 60cm . 02in 14mm Ea1 [id number] - [id number] Start: 01-28-2025 Coil Embl 30cm . 02in 6mm Ea1 [id number] - [id number] Start: 01-28-2025 Coil Embl 30cm . 02in 6mm Ea1 [id number] - [id number] Start: 01-28-2025 Coil Embl 20cm . 02in 6mm Araceli Ea1 [id number] - [id number] Start: 01-28-2025 Coil Embl 60cm . 02in 18mm Araceli Ea1 [id number] - [id number] Start: 01-28-2025 Coil Embl 60cm . 02in 12mm Ea1 [id number] - [id number] Start: 01-28-2025 Coil Embl 60cm . 02in 12mm Ea1 [id number] - [id number] Start: 01-28-2025 Coil Embl 30cm P od Pk J-Sft Ea1 [id number] - [id number] Start: 01-28-2025 Coil Embl 35cm . 02in 10mm Ea1 [id number] - [id number] Start: 01-28-2025 Coil Embl 40cm . 02in 8mm Ea1 [id number] - [id number] Start: 01-28-2025 Coil Embl 45cm P od Pk J-Sft Ea1 [id number] - [id number] Start: 01-28-2025 Coil Embl 25cm . 02in 8mm Ea1 [id number] - [id number] Start: 01-28-2025 Clinical Notes 05-21-2023 to [...] appointment in the Interventional Radiology Clinic call [phone] option 3. If you notice more rectal [...] Miralax if needed documented in this encounter [facility] 01-31-2025 Note DISCHARGE SUMMARY [place] [address] Ely Hurtado 84 year old female 1940 [...] HTN, HLD, DVT (Eliquis) transferred from [facility] for urgent vascular intervention for incidental finding [...] to assisted living after PT/OT re-evaluation with [facility] in hemodynamically stable condition. TODO: [] [...] Referral Type: Service Level Authorization Referral Location: [facility] PRE ADMISSION TESTING Number of Visits Requested: 1 Expiration Date: 01/26/26 PRE-ADMISSION TESTING CONSULT Referral Priority: Routine Referral Type: Service Level Authorization Referral Location: [facility] PRE ADMISSION TESTING Number of Visits Requested: 1 Expiration Date: 01/26/26 HOME CARE SERVICE REQUEST Referral Priority: Routine Referral Type: Home Health Referral Referral Location: [facility] Number of Visits Requested: 3 Expiration Date: 01/31/26 FOLLOW UP IN PRIM (more content not included)... [facility] 01-31-2025 Hospital course Narrative Images from the original note were not included. DISCHARGE SUMMARY [address] [address] Ely Hurtado 84 year old female 1940 [...] to assisted living after PT/OT re-evaluation with [facility] in hemodynamically stable condition. TODO: [] [...] Referral Type: Service Level Authorization Referral Location: [facility] PRE ADMISSION TESTING Number of Visits Requested: 1 Expiration Date: 01/26/26 PRE-ADMISSION TESTING CONSULT Referral Priority: Routine Referral Type: Service Level Authorization Referral Location: [facility] PRE ADMISSION TESTING Number of Visits Requested: 1 Expiration Date: 01/26/26 HOME CARE SERVICE REQUEST Referral Priority: Routine Referral Type: Home Health Referral Referral Location: [facility] Number of Visits Requested: 3 Expiration Date: 01/31/26 FOLLOW UP IN PRIMARY CARE INTERVENTIONAL RAD CLINIC REFERRAL Referral Priority: Routine Referral Type: Radiology Referral Location: [facility] INTERVENTIONAL RAD Number of Visits Requested: 1 [...] this patient's discharge. documented in this encounter [facility] 01-31-2025 Progress note Formatting of t [...] from the medicare.gov compare site for HHC. [place] [employer] was provided to the patient/patient consumer sales representative. CM to follow up with accepting agencies. CM to continue to follow. ADDENDUM: CM spoke with Debra Campbell from [facility] and she states that the patient can receive therapy under Medicare part B from PT at her AL if she so wishes. CM will continue to follow additional discharge planning needs. ADDENDUM: CM spoke with Pt son and notified him that patient would be discharge back to her AL today. Son stated that he would be at to bean picker pt and transport her back to [facility] after 5pm. CM will continue to follow. Breanna Wilder MSN, RN Inpatient Manager Audio 7E/[id number] Cell [phone] Desk [phone] [facility] 01-31-2025 Miscellaneous Notes SW/CM aware that patient meets criteria for HHC. Spoke with Pts son over the phone to discuss dispo. Patient open and agreeable to HHC. CM provided Pt son the quality and resource use measure data from available post-acute (PAC) providers, that best align with the patient's treatment goals and preferences from the medicare.gov compare site for HHC. [place] [employer] was provided to the patient/patient consumer sales representative. CM to follow up with accepting agencies. CM to continue to follow. ADDENDUM: CM spoke with Debra Campbell from [facility] and she states that the patient can receive therapy under Medicare part B from PT at her AL if she so wishes. CM will continue to follow additional discharge planning needs. ADDENDUM: CM spoke with Pt son and notified him that patient would be discharge back to her AL today. Son stated that he would be at to bean picker pt and transport her back to [facility] after 5pm. CM will continue to follow. Breanna Wilder MSN, RN Inpatient Manager Audio /7W Cell [phone] Desk Hygux-[phone] Associated Problem(s): Aneurysm of hepatic artery (HCC) [...] care --pharmacy dispense reports has been on Commtimize since 02/11/2024 --Eliquis currently held since 01/23/2025, [...] care --pharmacy dispense reports has been on Commtimize since 02/11/2024 --Eliquis currently held since 01/23/2025, [...] an 84 year old (Full Code) Room: [facility]/1 N [id number] 1940 FROM Step down unit TO Medicine team 6 Admit Date: 01/25/2025 Today's Date: 01/29/2025 Length of stay: 4 day(s) HOSPITAL COURSE: Ely Hurtado is a 84 year old female admitted on 01/25/2025 with a PMH of anemia, rectal bleeding, history ov DVT, aneurysm of hepatic artery transferred from OSH for urgent vascular intervention and anemia. Patient who currently resides at [facility] ([facility]) where she was found to have significant bright red blood in her stool following multiple episodes of diarrhea on the morning of 01/24. They were transferred to the [facility] ED later that day for further evaluation. [...] Aspirin 81 mg [] Voiding trial Disposition[facility] Inpatient CONSULTS: IP GASTROENTEROLOGY CONSULT Outpatient f/u: PCP F/u angiography in 3 months PROBLEM LIST: Rectal bleed s/p colonoscopy 01/27 Hepatic artery aneurysm s/p coiling 01/28 Nelda James DO Family Medicine, PGY2 FM Pager: [phone] Spoke with Pt's son and daughter in [...] from the medicare.gov compare site for SNF. [place] [facility] was provided to the patient/patient consumer sales representative. For SNF: RN/MD to complete [employer]. Signature page placed on patient's chart for MD signature. [id number] initiated in [facility] Pt will require a pre-cert/LOC. SW/CM will follow up for choices. Referral sent to [facility] which is the sister SNF for [facility]. CM will continue to follow Breanna VALLEJO, RN Inpatient Manager Audio 7E/7W Cell jnlze-[phone] Desk Awoxo-[phone] I tried at least thrice to reach her son to update on her colonoscopy but with no avail. Ely Hurtado 84 year old Surgical Contact Serial Number: [id number] Location: ENDO ADD ON PROCEDURE Date: 01/27/2025 Audio Visual Director: Juan Parikh MD Attending:Adrien Caraballo MD Procedure(s): [...] transillumination of right lower quadrant. Prep was Grimes Bowel Prep Right Colon: Entire colon seen well, Grimes Bowel Prep Transverse Colon: Entire colon seen well, Grimes Bowel Prep Left Colon:Entire colon seen well [...] + internal hemorrhoids Rectal bleeding (Primary Diagnosis) [[id number]] Unspecified right bundle-branch block [[id number]] Abnormal electrocardiogram (ECG) (EKG) [[id number]] Abnormal electrocardiogram (ECG) (EKG) [[id number]] ANATOMIC SPECIMEN: Yes SPECIMEN: ID Type Source [...] Caraballo MD Division of Gastroenterology & Hepatology [facility] Ely Hurtado is a 84 year old female admitted on 01/25/2025 with a history of HTN, HLD, DVT (Eliquis) transferred from [facility] for urgent vascular intervention for incidental finding [...] anticoagulation before discharge. documented in this encounter [facility] 01-31-2025 Consult note Associated Order (s): [...] Max Mod Min CG CS Sup DS AK I Comment Supine to sit X Sit [...] With Patients permission ordered no equipment via FanTrail Order. If any questions contact [facility] DME Provider at [phone]. 01/31/2025 6 Clicks Basic Mobility PT Difficulty [...] Patient is functionally appropriate for discharge to [facility] with assist PRN once medically cleared. Will [...] NA = Not Assessed, I = Independent, AK = Modified Independent, Sup = Supervised, Set up = Physical Assistance for Set-up Only, Min = Minimal Assistance, Mod = Moderate Assistance, Max = Maximal assistance; Dep = Dependent; AROM = Active Range of Motion; PROM = Passive Range of Motion; MMT = Manual Muscle Test T [facility] 01-31-2025 Note PHYSICAL THERAPY PRO TOMÁS [...] Max Mod Min CG CS Sup DS AK I Comment Supine to sit X Sit [...] With Patients permission ordered no equipment via FanTrail Order. If any questions contact [facility] DME Provider at [phone]. 01/31/2025 6 Clicks Basic Mobility PT Difficulty [...] Patient is functionally appropriate for discharge to [facility] with assist PRN once medically cleared. Will [...] NA = Not Assessed, I = Independent, AK = Modified Independent, Sup = Supervised, Set up = Physical Assistance for Set-up Only, Min = Minimal Assistance, Mod = Moderate Assistance, Max = Maximal assistance; Dep = Dependent; AROM = Active Range of Motion; PROM = Passive Range of Motion; MMT = Manual Muscle Test [facility] 01-31-2025 Consult note Associated Order (s): [...] Max Mod Min CG CS Sup DS AK I Comment Supine to sit X Sit [...] With Patients permission ordered no equipment via FanTrail Order. If any questions contact [facility] DME Provider at [phone]. 01/31/2025 6 Clicks Basic Mobility PT Difficulty [...] Patient is functionally appropriate for discharge to [facility] with assist PRN once medically cleared. Will [...] NA = Not Assessed, I = Independent, AK = Modified Independent, Sup = Supervised, Set up = Physical Assistance for Set-up Only, Min = Minimal Assistance, Mod = Moderate Assistance, Max = Maximal assistance; Dep = Dependent; AROM = Active Range of Motion; PROM = Passive Range of Motion; MMT = Manual Muscle Test Images from the original note were not included. Dietitian vs DietaryTech: Dietary TechDiet Cylinder Inspector Nutrition Screening Reason for visit: LOS 5 [...] up. Will continue to follow, Ava Hays Manager Licensing Pager#[phone] Time spent on patient care: 15 minutes [...] intervention and anemia. Pt currently resides at SNF ([facility]) Diagnosis: Rectal Bleeding Hepatic Aneurysm/pseudoaneurysm Urinary retention [...] somewhere" Patient Identified Goal(s): find her walker LINUX SYSTEM ADMINISTRATOR Status: questionable historian Mobility Status: Modified indep [...] chart review: [facility] with staff assist OBJECTIVE: Appearance: received supine [...] Dep Max Mod Min CG CS DS AK I Set-Up Comment Supine to Sit x [...] With Patients permission ordered no equipment via FanTrail Order. If any questions contact [facility] DME Provider at [phone]. 01/27/2025 6 Clicks Basic Mobility PT Difficulty [...] address. Recommend further therapy services in a Usp Setting once medically cleared. Will continue to [...] NA = Not Assessed, I = Independent, AK = Modified Independent, Sup = Supervised, Set [...] Patient Subjective: "My walker is somewhere in [place]" Patient Identified Goal(s): Return home Home Living Situation Per pt report: Lives in apartment w 0 LATESHA 0 steps to bed/ bathroom (walk in shower) Lives alone w son PRN assistance Equipment available: rollator, shower chair, grab bars Ind w ADL+ assist for IADLs AK for functional mobility w rollator (-) Drive (-) Falls Per chart: pt resides at SNF ([facility]) with staff assist OBJECTIVE: Patient Identification: [...] Dep Max Mod Min CG CS DS AK I Set-Up Comment Feeding x x NPO Anticipate CS Grooming/Hygiene x x Anticipate seated Bathing:UB x Anticipate seated Bathing:LB x Anticipate seated Dressing:UB x Adjust hospital gown seated EOB Dressing: LB x Anticipate seated Toileting x x Anticipate CS for pericare and CGA for clothing management Transfers/Bed Mobility: Assistance Level Dep Max Mod Min CG CS DS AK I Set-Up Comment Toilet Transfers x Anticiapte [...] call light in reach. Chair alarm intact. Cohoes belt in place. DME: With Patients permission ordered no equipment via FanTrail Order. If any questions contact [facility] DME Provider at [phone]. 01/27/2025 6 Clicks Daily Activity OT Help [...] Guard Assist/Supervision 4 - Non = Modified Tift/Independent ASSESSMENT: Recommend further therapy services in a [...] NA = Not Assessed, I = Independent, AK = Modified Independent, Sup = Supervised, Set [...] Isauro Page MD Patient: Ely Hurtado Location: [place] [address]/1 Reason for Consult: HPI Ely Hurtado is [...] hemoglobin was 6 prior to transferred to [facility]. She received 2 units of RBC [...] excellent care from the nursing staff, and system support analyst. Dictated using voice recognition software. Document may [...] Staff Gastoenterologist Division of Gastroenterology & Hepatology 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 Whittaker or until AC restarted. [facility] 01-30-2025 Evaluation + Plan note Associated [...] okay to resume anticoagulation after polyp biopsy [facility] 01-30-2025 Evaluation + Plan note Associated [...] okay to resume anticoagulation after polyp biopsy [facility] 01-30-2025 Evaluation + Plan note Associated [...] okay to resume anticoagulation after polyp biopsy [facility] 01-30-2025 Evaluation + Plan note Associated [...] okay to resume anticoagulation after polyp biopsy [facility] 01-30-2025 Evaluation + Plan note Associated Problem(s): Hyperlipidemia, unspecified --chronic. stable. continue home statin [facility] 01-30-2025 Note Hospital Medicine Pr ogress Note Ely Hurtado Age [age] year old female [id number] AC8-704/2 Admitted 01/25/2025 12:28 PM Hospital Day: 6 Subjective HOSPITAL COURSE: Ely Hurtado is a 84 year old female admitted on 01/25/2025 with a history of HTN, HLD, DVT (Eliquis) transferred from [facility] for urgent vascular intervention for incidental finding [...] re-eval by PT/OT Floyd Odom DO [facility] 01-30-2025 History of Present illness Narrative Hospital Medicine Progress Note Ely Hurtado Age [age] year old female [id number] AC8-704/2 Admitted 01/25/2025 12:28 PM Hospital Day: [...] Ely Hurtado Age [age] year old female [id number] AC8-704/2 Admitted 01/25/2025 12:28 PM Hospital Day: [...] Emergency Contact: aliza hurtado, Aliza Hancock MD [facility] Medicine CRITICAL CARE ATTENDING PROGRESS NOTE [...] of Hepatic A. 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 Dr. Jose Rafael Magdaleno. Lyly [id number] bp#[id number] Images from the original note were not included. 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 Patient who currently resides at [facility] ([facility]) where she was found to have significant bright red blood in her stool following multiple episodes of diarrhea on the morning of 01/24. They were transferred to the [facility] ED later that day for further evaluation. [...] up PROBLEM LIST: Neuro AxOx2 at [facility] per OSH notes. Cardiology -No Acute concerns [...] DO PGY-2 Family Medicine Stepdown Unit Pager [phone]- offered patient to get up and [...] 78 27 96 % Room air -- 01/27/25 2000 116/78 97.6 F (36.4 C) Oral 85 [...] Pulmonary, Critical Care, & Sleep Medicine [facility] PIN [id number] [1] Social History Tobacco Use Smoking Status Not on file Smokeless Tobacco Not on file Images from the original note were not included. 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 Patient who currently resides at [facility] ([facility]) where she was found to have significant bright red blood in her stool following multiple episodes of diarrhea on the morning of 01/24. They were transferred to the [facility] ED later that day for further evaluation. [...] up PROBLEM LIST: Neuro AxOx2 at [facility] per OSH notes. Cardiology -No Acute concerns [...] DO PGY-2 Family Medicine Stepdown Unit Pager [phone] 01/27/25 1500 Assessment and Discharge Planning Evaluation READMISSION LESS THAN 30 DAYS No READMISSION RISK SCORE IS Rising Risk INTERVIEWED Chart Review COGNITIVE STATUS Oriented FUNCTIONAL STATUS PRIOR TO ADMISSION Ambulates with medical diagnostic radiographer (cane, walker, etc.);Independent with ADL's HAS ADVANCE [...] that the patient is a resident a [facility] ([phone]). CM left a message to inquire if Facility has SNF capabilities. CM to notifiy the facility if the patient is medically able to return. PT/OT recommend that pt go to a SNF when pt is medically ready to discharge. CM to follow up. ADDENDUM: CM received a return phone call from [facility] staff that states that they do have a SNF side to their facility. However they are not in careport and they do not know the process of how to discharge the patient to SNF side instead of AL. CM was give contact phone number of [phone]. LOWELL to follow up on 01/28/2025 during business hours. Breanna Wilder MSN, RN Inpatient Manager Audio 7E/7W Cell igvuw-[phone] Desk Kpocn-[phone] Images from the original note were not [...] Pulmonary, Critical Care, & Sleep Medicine [facility] PIN [id number] [1] Social History Tobacco Use Smoking Status Not on file Smokeless Tobacco Not on file Images from the original note were not included. 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 Patient who currently resides at [facility] ([facility]) where she was found to have significant bright red blood in her stool following multiple episodes of diarrhea on the morning of 01/24. They were transferred to the [facility] ED later that day for further evaluation. [...] up PROBLEM LIST: Neuro AxOx2 at [facility] per OSH notes. Cardiology -No Acute concerns [...] MD PGY-1 Internal Medicine Stepdown Unit Pager [phone] Images from the original note were not [...] with hematochezia x 1 day. Presented to [facility]. Hgb decreased to 6.2. Received 2U PRBCs. [...] -- 85 19 100 % Room air 01/25/25 2007 130/95 -- -- 93 16 97 % [...] Pulmonary, Critical Care, & Sleep Medicine [facility] PIN [id number] [1] Social History Tobacco Use Smoking Status Not on file Smokeless Tobacco Not on file Images from the original note were not included. 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 Patient who currently resides at [facility] ([facility]) where she was found to have significant bright red blood in her stool following multiple episodes of diarrhea on the morning of 01/24. They were transferred to the [facility] ED later that day for further evaluation. [...] up PROBLEM LIST: Neuro AxOx2 at [facility] per OSH notes. Cardiology -No Acute concerns [...] MD PGY-1 Internal Medicine Stepdown Unit Pager [phone] documented in this encounter [facility] 01-29-2025 Evaluation + Plan note Associated [...] is advised will need to restart Eliquis [facility] 01-29-2025 Evaluation + Plan note Associated [...] is advised will need to restart Eliquis [facility] 01-29-2025 Evaluation + Plan note Associated [...] is advised will need to restart Eliquis [facility] 01-29-2025 Evaluation + Plan note Associated [...] is advised will need to restart Eliquis [facility] 01-29-2025 Evaluation + Plan note Associated Problem(s): 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 Whittaker or until Eliquis restarted. [facility] 01-29-2025 Evaluation + Plan note Associated Problem(s): Hyperlipidemia, unspecified --chronic. stable. continue home statin [facility] 01-29-2025 Note Hospital Medicine Pr ogress Note Ely Hurtado Age [age] year old female [id number] AC8-704/2 Admitted 01/25/2025 12:28 PM Hospital Day: 5 HOSPITAL COURSE: Ely Hurtado is a 84 year old female admitted on 01/25/2025 with a history of anemia, rectal bleeding, history of DVT (Eliquis), aneurysm of hepatic artery transferred from [facility] for urgent vascular intervention. Patient with acute [...] recently ambulating from Pulse 107 Temp 98.4 ???F (36.9 ???C) [...] Emergency Contact: aliza hurtado, Aliza Hancock MD [facility] 01-29-2025 Note CRITICAL CARE ATTEND [...] of Hepatic A. 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 Jose Rafael Desouza [id number] bp#[id number] [facility] 01-29-2025 Progress note Formatting of t his note is different from the original. Images from the original note were not included. . TRANSFER NOTE Patient: Ms. 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 Patient who currently resides at SNF ([facility]) where she was found to have significant bright red blood in her stool following multiple episodes of diarrhea on the morning of 01/24. They were transferred to the [facility] ED later that day for further evaluation. [...] Aspirin 81 mg [] Voiding trial Disposition[facility] Inpatient CONSULTS: IP GASTROENTEROLOGY CONSULT Outpatient f/u: PCP F/u angiography in 3 months PROBLEM LIST: Rectal bleed s/p colonoscopy 01/27 Hepatic artery aneurysm s/p coiling 01/28 Nelda James DO Family Medicine, PGY2 FM Pager: [phone] [facility] 01-29-2025 Note [facility] Step [facility] - Progress Note Patient: Ely Hurtado : 1940 Sex: female Room: [place] [address] Admission: 01/25/2025 Today: 01/29/2025 (Length of stay: 4 day(s)) HOSPITAL COURSE: Ely Hurtado is a 84 year old female admitted on 01/25/2025 with a PMH of anemia, rectal bleeding, history ov DVT, 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 Patient who currently resides at [facility] ([facility]) where she was found to have significant bright red blood in her stool following multiple episodes of diarrhea on the morning of 01/24. They were transferred to the [facility] ED later that day for further evaluation. [...] up PROBLEM LIST: Neuro AxOx2 at [facility] per OSH notes. Cardiology -No Acute concerns [...] of cholestasi (more content not included)... [facility] 01-28-2025 Note POST-PROCEDURE NOTE Procedure: Left Femoral Artery approach Abdominal Angiogram with Proper Hepatic Artery Coil Embolization Pre-operative Diagnosis: Proper Hepatic Artery Aneurysm Post-operative Diagnosis: Proper Hepatic Artery Aneurysm Attending: Anselmo Whittaker MD Bag Machine Operator: Bessy Acuña MD A TIME OUT was [...] procedural details. Bessy Acuña MD Radiology [facility] 01-28-2025 Plan of care note [...] decides. Family verbalized understanding. Nelda James DO [facility] 01-28-2025 Progress note Formatting of t [...] from the medicare.gov compare site for SNF. [place] [employer] Choice was provided to the patient/patient consumer sales representative. For SNF: RN/ to complete [facility]. Signature page placed on patient's chart for MD wong. [id number] initiated in [facility] Pt will require a pre-cert/LOC. SW/CM will follow up for choices. Referral sent to [facility] which is the sister SNF for [facility] CM will continue to follow Breanna Wilder MSN, RN Inpatient Manager Audio 7E/7W Cell ticka-[phone] Desk Icfyu-[phone] [facility] 01-28-2025 Note Pre-Procedure H AND P [...] Daily Wilbert Pérez MD Given at 01/28/25 07 hydrophilic wound dressing (TRIAD) external paste Apply [...] Directives (Living will, health care power of matcher operator): none Patient Recent Code Status: Full Code Code Status For This Procedure: Full Code Patient does not have capacity to consent. Risk and benefits of the procedure were discussed with next of kin / POA. All questions answered. Lance Sandhu DO Radiology, PGY3 01/28/25 [1] No past medical history on file. 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 Patient who currently resides at [facility] ([facility]) where she was found to have significant bright red blood in her stool following multiple episodes of diarrhea on the morning of 01/24. They were transferred to the [facility] ED later that day for further evaluation. [...] up PROBLEM LIST: Neuro AxOx2 at [facility] per OSH notes. Cardiology -No Acute concerns [...] Regimen Senna (more content not included)... [facility] 01-28-2025 Consult note Formatting of th is note is different from the original. Images from the original note were not included. Dietitian vs DietaryTech: Dietary TechDiet Cylinder Inspector Nutrition Screening Reason for visit: LOS 5 [...] up. Will continue to follow, Ava Hays, Manager Licensing Pager#[phone] Time spent on patient care: 15 minutes [1] No past medical history on file. [facility] 01-27-2025 Plan of care note I tried at least thrice to reach her son to update on her colonoscopy but with no avail. [facility] 01-27-2025 Note 01/27/25 1500 Assessment and Discharge Planning Evaluation READMISSION LESS THAN 30 DAYS No READMISSION RISK SCORE IS Rising Risk INTERVIEWED Chart Review COGNITIVE STATUS Oriented FUNCTIONAL STATUS PRIOR TO ADMISSION Ambulates with medical diagnostic radiographer (cane, walker, etc.);Independent with ADL's HAS ADVANCE [...] that the patient is a resident a [facility] ([phone]). CM left a message to inquire if Facility has SNF capabilities. CM to notifiy the facility if the patient is medically able to return. PT/OT recommend that pt go to a SNF when pt is medically ready to discharge. CM to follow up. ADDENDUM: CM received a return phone call from [facility] staff that states that they do have a SNF side to their facility. However they are not in careport and they do not know the process of how to discharge the patient to SNF side instead of AL. CM was give contact phone number of [phone]. CM to follow up on 01/28/2025 during business hours. Breanna Wilder MSN, RN Inpatient Manager Audio 7E/7W Cell [phone] Desk Vexek-[phone] [facility] 01-27-2025 Surgery Surgical operation note Ely Hurtado 84 year old Surgical Contact Serial Number: [id number] Location: ENDO ADD ON PROCEDURE Date: 01/27/2025 Audio Visual Director: Juan Parikh MD Attending:Adrien Caraballo MD Procedure(s): [...] transillumination of right lower quadrant. Prep was Grimes Bowel Prep Right Colon: Entire colon seen well, Grimes Bowel Prep Transverse Colon: Entire colon seen well, Grimes Bowel Prep Left Colon:Entire colon seen well [...] + internal hemorrhoids Rectal bleeding (Primary Diagnosis) [902617] Unspecified right bundle-branch block [5309737] Abnormal electrocardiogram (ECG) (EKG) [8037871] Abnormal electrocardiogram (ECG) (EKG) [[id number]] ANATOMIC SPECIMEN: Yes SPECIMEN: ID Type Source [...] Caraballo MD Division of Gastroenterology & Hepatology [facility] 01-27-2025 History and physical note Ely Hurtado [id number] 01/27/2025 HISTORY & PHYSICAL: Patient's history with [...] sedation. Juan Parikh MD 01/27/2025 3:34 PM [facility] 01-27-2025 History and physical note Ely Patsy Hurtado [id number] 01/27/2025 HISTORY & PHYSICAL: Patient's history with [...] from the original note were not included. [facility] Step Down Unit - H&P Patient: Ely Hurtado : 1940 Sex: female Room: [place] [address] Admission: 01/25/2025 Today: 01/25/2025 (Length of stay: 1 day(s)) HISTORY OF PRESENT ILLNESS: CHIEF COMPLAINT: No chief complaint on file. 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 Patient who currently resides at [facility] ([facility]) where she was found to have significant bright red blood in her stool following multiple episodes of diarrhea on the morning of 01/24. They were transferred to the [facility] ED later that day for further evaluation. [...] anemia. PROBLEM LIST: Neuro AxOx2 at [facility] per OSH notes. Cardiology -No Acute concerns [...] Regimen N/A Indwelling N/A Drug De-Escalation Dispo: [facility] Code Status: Full Code This plan is preliminary until finalized by an attending physician. Wilbert Pérez MD PGY-1 Internal Medicine Stepdown Unit Pager [phone] [1] No past medical history on file. [...] note Patient: Ely Hurtado : 1940 Location: [place] [address] Admission Date: 01/25/2025 Length of stay: 1 day(s) Ms. Ely Hurtado is a 84 year old female Data obtained by the EMR and corroborated by [facility] resident significant bright red blood in [...] 01/25/2025 7:53 PM documented in this encounter [facility] 01-27-2025 Consult note Associated Order (s): [...] intervention and anemia. Pt currently resides at [facility] ([facility]) Diagnosis: Rectal Bleeding Hepatic Aneurysm/pseudoaneurysm Urinary retention [...] somewhere" Patient Identified Goal(s): find her walker LINUX SYSTEM ADMINISTRATOR Status: questionable historian Mobility Status: Modified indep [...] Per chart review: patient currently resides at [facility] ([facility]) with staff assist OBJECTIVE: Appearance: received supine [...] Dep Max Mod Min CG CS DS AK I Set-Up Comment Supine to Sit x [...] With Patients permission ordered no equipment via FanTrail Order. If any questions contact [facility] DME Provider at [phone]. 01/27/2025 6 Clicks Basic Mobility PT Difficulty [...] address. Recommend further therapy services in a Usp Setting once medically cleared. Will continue to [...] NA = Not Assessed, I = Independent, AK = Modified Independent, Sup = Supervised, Set [...] [2] No past surgical history on file. [facility] 01-27-2025 Note PHYSICAL THERAPY ACU TE [...] intervention and anemia. Pt currently resides at [facility] ([facility]) Diagnosis: Rectal Bleeding Hepatic Aneurysm/pseudoaneurysm Urinary retention [...] somewhere" Patient Identified Goal(s): find her walker LINUX SYSTEM ADMINISTRATOR Status: questionable historian Mobility Status: Modified indep [...] Per chart review: patient currently resides at [facility] ([facility]) with staff assist OBJECTIVE: Appearance: received supine [...] Dep Max Mod Min CG CS DS AK I Set-Up Comment Supine to Sit x [...] With Patients permission ordered no equipment via FanTrail Order. If any questions contact [facility] Provider at [phone]. 01/27/2025 6 Clicks Basic Mobility PT Difficulty [...] Clicks Score (more content not included)... [facility] 01-27-2025 Consult note Associated Order (s): IP OCCUPATIONAL THERAPY SERVICE REQUEST OCCUPATIONAL THERAPY INITIAL EVALUATION Patient seen from 9:35 to 10:00 on 7W unit for 25 minutes. Zheng-[place] w physical therapy for safe progression of [...] Patient Subjective: "My walker is somewhere in [place]" Patient Identified Goal(s): Return home Home Living Situation Per pt report: Lives in apartment w 0 LATESHA 0 steps to bed/ bathroom (walk in shower) Lives alone w son PRN assistance Equipment available: rollator, shower chair, grab bars Ind w ADL+ assist for IADLs AK for functional mobility w rollator (-) Drive (-) Falls Per chart: pt resides at SNF ([facility]) with staff assist OBJECTIVE: Patient Identification: [...] Dep Max Mod Min CG CS DS AK I Set-Up Comment Feeding x x NPO Anticipate CS Grooming/Hygiene x x Anticipate seated Bathing:UB x Anticipate seated Bathing:LB x Anticipate seated Dressing:UB x Adjust hospital gown seated EOB Dressing: LB x Anticipate seated Toileting x x Anticipate CS for pericare and CGA for clothing management Transfers/Bed Mobility: Assistance Level Dep Max Mod Min CG CS DS AK I Set-Up Comment Toilet Transfers x Anticiapte [...] With Patients permission ordered no equipment via FanTrail Order. If any questions contact [facility] DME Provider at [phone]. 01/27/2025 6 Clicks Daily Activity OT Help [...] Guard Assist/Supervision 4 - Non = Modified Tift/Independent ASSESSMENT: Recommend further therapy services in a [...] NA = Not Assessed, I = Independent, AK = Modified Independent, Sup = Supervised, Set up = Physical Assistance for Set-up Only, Min = Minimal Assistance, Mod = Moderate Assistance, Max = Max assistance; Dep = Dependent; AROM = Active Range of Motion;PROM=Passive Range of Motion; MMT = Manual Muscle Test; UB = Upper Body; LB = Lower Body [1] No past surgical history on file. [facility] 01-27-2025 Note OCCUPATIONAL THERAPY INITIAL EVALUATION [...] Patient Subjective: "My walker is somewhere in [place]" Patient Identified Goal(s): Return home Home Living Situation Per pt report: Lives in apartment w 0 LATESHA 0 steps to bed/ bathroom (walk in shower) Lives alone w son PRN assistance Equipment available: rollator, shower chair, grab bars Ind w ADL+ assist for IADLs AK for functional mobility w rollator (-) Drive (-) Falls Per chart: pt resides at SNF ([facility]) with staff assist OBJECTIVE: Patient Identification: patient [...] Dep Max Mod Min CG CS DS AK I Set-Up Comment Feeding x x NPO Anticipate CS Grooming/Hygiene x x Anticipate seated Bathing:UB x Anticipate seated Bathing:LB x Anticipate seated Dressing:UB x Adjust hospital gown seated EOB Dressing: LB x Anticipate seated Toileting x x Anticipate CS for pericare and CGA for clothing management Transfers/Bed Mobility: Assistance Level Dep Max Mod Min CG CS DS AK I Set-Up Comment Toilet Transfers x Anticiapte [...] call light in reach. Chair alarm intact. Cohoes belt in place. DME: With Patients permission ordered no equipment via FanTrail Order. If any questions contact [facility] DME Provider at [phone]. 01/27/2025 6 Clicks Daily Activity OT Help [...] Guard Assist/Supervision 4 - Non = Modified Tift/Independent ASSESSMENT: Recommend further therapy services in a [...] with M (more content not included)... 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 Patient who currently resides at [facility] ([facility]) where she was found to have significant bright red blood in her stool following multiple episodes of diarrhea on the morning of 01/24. They were transferred to the [facility] ED later that day for further evaluation. [...] up PROBLEM LIST: Neuro AxOx2 at [facility] per OSH notes. Cardiology -No Acute concerns [...] physician. N (more content not included)... [facility] 01-26-2025 Consult note Associated Order (s): IP GASTROENTEROLOGY CONSULT Images from the original note were not included. Department of Gastroenterology and Hepatology Consult H&P Note GI Attending Physician: Dr. Isauro Page MD Patient: Ely Hurtado Location: [place] [address]1 Reason for Consult: HPI Ely Hurtado is [...] hemoglobin was 6 prior to transferred to [facility]. She received 2 units of RBC [...] Toledo MD, MS Gastroenterology Fellow. Consult Pager [phone] Discussed with GI attending, Dr. Adrien Caraballo MD Primary team updated yes. Thank you for involving us in the care of this patient. I appreciate the excellent care from the nursing staff, and system support analyst. Dictated using voice recognition software. Document may contain errors not identified Addendum: During the afternoon rounds, she appeared disoriented and declined the colonoscopy procedure tomorrow. I spoke with her son Aliza MÉNDEZ), obtained verbal consent from from her son. [...] Staff Gastoenterologist Division of Gastroenterology & Hepatology [facility] [1] No past medical history on file. [2] No past surgical history on file. [3] [facility] Work Phone: 01-26-2025 Hospital Note Formatting [...] trial of re-initiation of anticoagulation before discharge. 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 Patient who currently resides at [facility] ([facility]) where she was found to have significant bright red blood in her stool following multiple episodes of diarrhea on the morning of 01/24. They were transferred to the [facility] ED later that day for further evaluation. [...] up PROBLEM LIST: Neuro AxOx2 at [facility] per OSH notes. Cardiology -No Acute concerns [...] MD PGY-1 Internal Medicine Stepdown Unit Pager [phone] [facility] 01-25-2025 Consult note Formatting of th [...] Garrison DO at 01/28/2025 4:46 PM EDT [facility] Work Phone: 01-25-2025 History and physical note Images from the original note were not included. [facility] Step Down Unit - H&P Patient: Ely Hurtado : 1940 Sex: female Room: [place] [address] Admission: 01/25/2025 Today: 01/25/2025 (Length of stay: 1 day(s)) HISTORY OF PRESENT ILLNESS: CHIEF COMPLAINT: No chief complaint on file. 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 Patient who currently resides at [facility] ([facility]) where she was found to have significant bright red blood in her stool following multiple episodes of diarrhea on the morning of 01/24. They were transferred to the [facility] ED later that day for further evaluation. [...] anemia. PROBLEM LIST: Neuro AxOx2 at [facility] per OSH notes. Cardiology -No Acute concerns [...] MD PGY-1 Internal Medicine Stepdown Unit Pager [phone] [1] No past medical history on file. [2] No past surgical history on file. [3] No family history on file. [4] [5] No current facility-administered medications on file prior to encounter. No current outpatient medications on file prior to encounter. [6] Not on File [facility] 01-25-2025 History and physical note Images from the original note were not included. Division of Pulmonary, Critical Care and Sleep Medicine Critical Care Initial Evaluation note Patient: Ely Hurtado : 1940 Location: [place] [address] Admission Date: 01/25/2025 Length of stay: 1 day(s) Ms. Ely Hurtado is a 84 year old female Data obtained by the EMR and corroborated by [facility] resident significant bright red blood in [...] MD Critical Care Attending 01/25/2025 7:53 PM [facility] Work Phone: 01-25-2025 Note Division of Pulmonar y, Critical Care and Sleep Medicine Critical Care Initial Evaluation note Patient: Ely Hurtado : 1940 Location: [place] [address] Admission Date: 01/25/2025 Length of stay: 1 day(s) Ms. Ely Hurtado is a 84 year old female Data obtained by the EMR and corroborated by me [place] resident significant bright red blood in her [...] Critical Care Attending 01/25/2025 7:53 PM [facility] 01-25-2025 Telephone encounter Note Images from the original note were not included. I was called by [facility] regarding a transfer from [place]. That facility is requesting transfer because Services [...] Keyon Fallon DO Division of Hospital Medicine, [facility] Pager#: [phone] [facility] 01-25-2025 Miscellaneous Notes Images from the original note were not included. I was called by [facility] regarding a transfer from [place]. That facility is requesting transfer because Services [...] Keyon Fallon DO Division of Hospital Medicine, [facility] Pager#: [phone] documented in this encounter [facility] 01-25-2025 Radiology Diagnostic study note [facility] Imaging Services [address] [place], [place] [id number] CTA Abd/Pelvis W/WO Contrast MR#: [id number] Acct: [id number] Name: ELY HURTADO Rep #: [id number] : 1940 F 84 From: Bob Garza MD PCP: Dianna Guido MD Status: REG ER Study:CTA Abd/Pelvis W/WO Contrast Date of Ex am: 01/24/25 Exam# [id number] Ordering Dr: Power Borges DO PROCEDURE: CTA [...] provider Power Borges 01/24/2025 at 10:50 p.m. GRILL CHEF. Reading Location: [id number] CC: Dr. Power Borges DO; Dianna Guido MD ~ Social Sciences Department Chair: Signed [facility] 06-25-2023 Progress note Note Date/Time June 25, 2023 2:29pm [facility] [address] [place] [address] Progress Note - Wound Care 06/25/23 1425 MR#: [id number] Acct: [id number] Name: ELY HURTADO Rep #:[id number] : 1940 83 From: Andie Magdaleno PM PCP: Dr. Karen Lang MD Status:R EG RCR Location: History of Present Illness Date of Service: 06/25/23 Chief Complaint: Nonhealing ulcer left lower extremity History of Wound: This is a 79-year-old white female known to me previously who was recently discharged from the [facility] in November 2018 who presents to [...] Recorded Date Recorded By Document 06/11/23 13:11 [employer] 06/11/23 13:19 Document 06/18/23 13:58 Caption Dataop 06/18/23 14:03 Document 06/25/23 14:01 Desktop 06/25/23 14:09 06/11/23 06/18/23 06/25/23 13:11 13:58 14:01 - Today's Visit Information Type of service Follow-up Visit Follow-up Visit Follow-up Visit (Physician/REGIONAL AGRONOMIST (Physician/REGIONAL AGRONOMIST (Physician/REGIONAL AGRONOMIST ) ) ) Arrival Mode Ambulatory, Ambulatory, [...] Date Recorded By Document 06/11/23 13:11 KW [employer] 06/11/23 13:19 KW Document 06/18/23 13:58 [employer] 06/18/23 14:03 KW Document 06/25/23 14:01 [employer] 06/25/23 14:09 06/11/23 06/18/23 06/25/23 13:11 13:58 [...] -Expiration Date 02/08/28 02/08/28 -Product Lot Number [id number] -Percent Used 100 100 -Lot number of Saline Used [id number] -Bleeding Controlled with Pressure Pressure -Treatment Response [...] Desktop 06/11/23 13:47 KW Document 06/18/23 14:43 [facility] Desktop 06/18/23 14:43 [facility] Document 06/25/23 14:19 KW Desktop 06/25/23 [...] of Care Provided Yes Yes Facility Type [facility] Care Facility Assessment/Plan Assessment/Plan (1) Non-pressure ulcer [...] Cosigner Signature (if applicable): CC: ~ Signed [facility] Work Phone: 1(412) 536-133301-10-2024 Progress note Author Andie Bernal [facility] June 18, 2023 3:30pm Note Date/Time June 18, 2023 3 :30pm [facility] [address] [place] [address] Progress Note - Wound Care 06/18/23 1528 MR#: [id number] Acct: [id number] Name: ELY HURTADO Rep #:[id number] : 1940 83 From: Andie DE LA TORRE PCP: Dr. Karen Lang MD Status:R ISABELLA ENRIQUEZ Location: History of Present Illness Date of Service: 06/18/23 Chief Complaint: Nonhealing ulcer left lower extremity History of Wound: This is a 79-year-old white female known to me previously who was recently discharged from the [facility] in November 2018 who presents to [...] applied to the left lateral full-thickness ulceration cxnh466% use. Third application. The graft site was [...] applied to the left lateral full-thickness ulceration nltu857% use. Third application. The graft site was free and clear of any infection. The wound/skin graft substitute was dressed with nonadherent bandagesecured in place with Steri-Strips followed by bolster dressing as well as a double layer Tubigrip. Post-Debridement Measurements and Additional Note: Post-Debridement Measurements/Treatment - Nurse 1 - General Ulcer Assessment Start: 06/11/23 13:11 Freq: Status: Active Protocol: WC.LOWJOSELIN Activity Type Activity Date Activity User E-sign Co-sign Detail Recorded Client Recorded Date Recorded By Document 06/11/23 13:11 KW Desktop 06/11/23 13:19 KW Document 06/18/23 13:58 KW Desktop 06/18/23 14:03 KW 06/11/23 06/18/23 13:11 13:58 - Today's Visit Information Type of service Follow-up Visit Follow-up Visit (Physician/REGIONAL AGRONOMIST (Physician/REGIONAL AGRONOMIST ) ) Arrival Mode Ambulatory, Ambulatory, Walker [...] Pain Free? Yes Yes WC - Nurse 1 - General Ulcer Measurement Start: 06/11/23 13:11 Freq: Status: Active Protocol: Activity Type Activity Date Activity User E-sign Co-sign Detail Recorded Client Recorded Date Recorded By Document 06/11/23 13:11 KW [employer] 06/11/23 13:19 KW Document 06/18/23 13:58 KW [employer] 06/18/23 14:03 KW 06/11/23 06/18/23 13:11 13:58 [...] -Expiration Date 02/08/28 02/08/28 -Product Lot Number [id number] -Percent Used 100 100 -Lot number of Saline Used [id number] -Bleeding Controlled with Pressure Pressure -Treatment Response [...] Desktop 06/11/23 13:47 KW Document 06/18/23 14:43 BM Desktop 06/18/23 14:43 BMF 06/11/23 06/18/23 13:46 [...] Summary of Care Provided Yes Facility Type [facility] Care Facility Assessment/Plan Assessment/Plan (1) Non-pressure ulcer [...] applied to the left lateral full-thickness ulceration zjfl910% use. Third application. The graft site was [...] Cosigner Signature (if applicable): CC: ~ Signed [facility] Work Phone: 1(100) 299-844901-03-2024 Progress note Author Andie Bernal [facility] June 11, 2023 1:52pm Note Date/Time June 11, 2023 1: 52pm [facility] [address] [place] [address] Progress Note - Wound Care 06/11/23 1350 MR#: [id number] Acct: [id number] Name: ELY HURTADO Rep #:[id number] : 1940 83 From: Andie Magdaleno PM PCP: Dr. Karen Lang MD Status:R EG RCR Location: History of Present Illness Date of Service: 06/11/23 Chief Complaint: Nonhealing ulcer left lower extremity History of Wound: This is a 79-year-old white female known to me previously who was recently discharged from the [facility] in November 2018 who presents to [...] applied to the left lateral full-thickness ulceration siyf847% use. Second application. The graft site was [...] applied to the left lateral full-thickness ulceration ehwl727% use. Second application. The graft site was free and clear of any infection. The wound/skin graft substitute was dressed with nonadherent bandagesecured in place with Steri-Strips followed by bolster dressing as well as a double layer Tubigrip. Post-Debridement Measurements and Additional Note: Post-Debridement Measurements/Treatment JACK - Nurse 1 - General Ulcer Assessment Start: 06/11/23 13:11 Freq: Status: Active Protocol: TIAGalo Activity Type Activity Date Activity User E-sign Co-sign Detail Recorded Client Recorded Date Recorded By Document 06/11/23 13:11 [facility] 06/11/23 13:19 06/11/23 13:11 - Today's Visit Information Type of service Follow-up Visit (Physician/REGIONAL AGRONOMIST ) Arrival Mode Ambulatory, Walker Patient Identification [...] Recorded Date Recorded By Document 06/11/23 13:11 [facility] 06/11/23 13:19 06/11/23 13:11 Wound Center Nurse [...] Disc -Expiration Date 02/08/28 -Product Lot Number [id number] -Percent Used 100 -Lot number of Saline Used [id number] -Bleeding Controlled with Pressure -Treatment Response Procedure [...] applied to the left lateral full-thickness ulceration yubu768% use. Second application. The graft site was [...] Cosigner Signature (if applicable): CC: ~ Signed [facility] Work Phone: 1(494) 657-398112-27-2023 Progress note Author Andie Bernal [facility] June 04, 2023 1:36pm Note Date/Time June 04, 2023 1:36pm [facility] [address] [place] [address] Progress Note - Wound Care 06/04/23 1333 MR#: [id number] Acct: [id number] Name: ELY HURTADO Rep #:[id number] : 1940 83 From: Andie Magdaleno PM PCP: Dr. Karen Lang MD Status:R EG RCR Location: History of Present Illness Date of Service: 06/04/23 Chief Complaint: Nonhealing ulcer left lower extremity History of Wound: This is a 79-year-old white female known to me previously who was recently discharged from the [facility] in November 2018 who presents to [...] applied to the left lateral full-thickness ulceration [id number]% use. First application. The graft site was [...] applied to the left lateral full-thickness ulceration mqgu867% use. First application. The graft site was [...] service Initial Visit Follow-up Visit Follow-up Visit (Physician/REGIONAL AGRONOMIST (Physician/REGIONAL AGRONOMIST ) ) Arrival Mode Ambulatory, Ambulatory, Ambulatory, [...] than 3 Seconds Communication Assessment Preferred language Azerbaijani Able to Read Yes Able to Write [...] in Ability to Perform Denies Any Declines Culture/Cheondoism/Latex Foam Worker Cultural/Cheondoism Needs that may affect No Treatment Plan Would you allow our hospital bridge game director to No meet you for the purpose of spiritual/ emotional support? Latex Foam Worker to contact place of evangelical No WC - Nurse 1 - General [...] (1-33%) Small (1-33%) Small (1-33%) -Granulation Quality Zayante Red Zayante -Slough/Fibrin Yes -Necrosis Amt Large (67-100%) Large [...] Date Recorded By Document 05/21/23 14:24 DL [id number] 05/21/23 14:25 DL Document 05/28/23 13:23 [facility] Desktop 05/28/23 13:24 [facility] 05/21/23 05/28/23 14:24 13:23 Wound Care [...] to apply santyl when available. Facility Type [facility] Facility Orders Sent Yes Assessment/Plan [...] applied to the left lateral full-thickness ulceration [id number]% use. First application. The graft site was [...] Cosigner Signature (if applicable): CC: ~ Signed [facility] Work Phone: 1(197) 939-665612-20-2023 Progress note Author Andie Bernal [facility] May 28, 2023 1:22pm Note Date/Time May 28, 2023 1:22pm [facility] [address] [place] [address] Progress Note - Wound Care 05/28/23 1317 MR#: [id number] Acct: [id number] Name: ELY HURTADO Rep #:[id number] : 1940 83 From: Andie Magdaleno PM PCP: Dr[facility] Karen Lang MD [facility] Location: History of Present Illness Date of Service: 05/28/23 Chief Complaint: Nonhealing ulcer left lower extremity History of Wound: This is a 79-year-old white female known to me previously who was recently discharged from the [facility] in November 2018 who presents to [...] has been getting dressing changes at her [facility] facility through nursing staff with Santyl and [...] Physician: Dianna Guido Performed By: Neel Polk, VERENICET Physical Exam Narrative Vascular: DP and PT [...] Type of service Initial Visit Follow-up Visit (Physician/REGIONAL AGRONOMIST ) Arrival Mode Ambulatory, Ambulatory, Walker Walker [...] than 3 Seconds Communication Assessment Preferred language Azerbaijani Able to Read Yes Able to Write [...] in Ability to Perform Denies Any Declines Culture/Cheondoism/Latex Foam Worker Cultural/Cheondoism Needs that may affect No Treatment Plan Would you allow our hospital bridge game director to No meet you for the purpose of spiritual/ emotional support? Latex Foam Worker to contact place of evangelical No WC - Nurse 1 - General [...] Amt Small (1-33%) Small (1-33%) -Granulation Quality Zayante Red -Slough/Fibrin Yes -Necrosis Amt Large (67-100%) [...] Date Recorded By Document 05/21/23 14:24 DL [id number] 05/21/23 14:25 DL 05/21/23 14:24 Wound Care [...] to apply santyl when available. Facility Type [facility] Facility Orders Sent Yes Assessment/Plan Assessment/Plan [...] [facility] will continue to take the doxycycline [...] Cosigner Signature (if applicable): CC: ~ Signed [facility] Work Phone: 1(835) 663-628912-13-2023 Progress note Author Andie [facility] May 21, 2023 3:47pm Note Date/Time May 21, 2023 3:41pm [facility] [address] [place] [address] Progress Note - Wound Care 05/21/23 1535 MR#: [id number] Acct: [id number] Name: ELY HURTADO Rep #:[id number] : 1940 83 From: Andie DE LA TORRE PCP: Dr. Karen Lang MD Status:R EG RCR Location: History of Present Illness Date of Service: 05/21/23 Chief Complaint: Nonhealing ulcer left lower extremity History of Wound: This is a 79-year-old white female known to me previously who was recently discharged from the [facility] in November 2018 who presents to [...] than 3 Seconds Communication Assessment Preferred language Azerbaijani Able to Read Yes Able to Write [...] in Ability to Perform Denies Any Declines Culture/Cheondoism/Latex Foam Worker Cultural/Cheondoism Needs that may affect No Treatment Plan Would you allow our hospital bridge game director to No meet you for the purpose of spiritual/ emotional support? Latex Foam Worker to contact place of evangelical No WC - Nurse 1 - General [...] Attached -Granulation Amt Small (1-33%) -Granulation Quality Zayante -Necrosis Amt Large (67-100%) -Necrotic Tissue Type [...] Recorded Date Recorded By Document 05/21/23 14:05 [employer] 05/21/23 14:06 05/21/23 14:05 Wound Center Nurse [...] Date Recorded By Document 05/21/23 14:24 DL [id number] 05/21/23 14:25 DL 05/21/23 14:24 Wound Care [...] to apply santyl when available. Facility Type [facility] Facility Orders Sent Yes Assessment/Plan Assessment/Plan [...] Cosigner Signature (if applicable): CC: ~ Signed [facility] Work Phone: evaluation noteNo assessment information available [facility] Work Phone: evaluation note* Diagnosis Onset Date Resolution Status Non-pressure ulcer of left l ower extremity with fat layer exposed acute Pain in left leg acute PVD (peripheral vascular disease) chronic [facility] Work Phone: Evaluation note* Diagnosis Onset Date Resolution Status Non-pressure ulcer of left l ower extremity with fat layer exposed acute Pain in left leg acute PVD (peripheral vascular disease) chronic Non-pressure ulcer of left l ower extremity with fat layer exposed acute PVD (peripheral vascular disease) chronic [facility] Work Phone: evaluation note* Diagnosis Rectal bleeding- [...] for referral (narrative)No [facility] for [facility] Reason for visit Narrative* Auth/Cert (Routine) Specialty Diagnoses / Procedures Referred By Contac t Referred To Contact Case Management Diagnoses rectal bleed on eliquis 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 Procedures N/A [place] [address] Phone: tel: fax: [facility] [employer] [address] [place] [address] Phone: tel: Referral ID Status Reason Start Date Expiration Date Visits Re quested Visits Authorized [id number] 3 3 [facility] Summary Purpose Family History No Family History Records Found Relationship Condition Age at Onset Recorded Date/T xiomara Unknown Family History?Cancer Unknown 2018 9:19pm Family History?Heart Disease Unknown February 14, 2019 9:19pm Relationship Condition Age at Onset Recorded Date/T xiomara Unknown Family History?Cancer Unknown 2018 8:19pm Family History?Heart Disease Unknown February 14, 2019 8:19pm Advance Directives No Advanced Directives Records Found Date Activated Date Inactivated Comments 01/25/2025 12:24 PM 01/31/2025 7:26 PM Question Answer Comments Documentation of decision pr ocess for this code status: Patient and surrogate unable or unavailable to discuss. Defaulting to the previously documented code status. Advance Directive Response Recorded Date/ Time Living Will Yes February 14 9:15pm Power of Sodium Chlorite Operator No February 14, 2019 9:15pm Advance Directive Response Recorded Date/ Time Living Will Yes February 14 8:15pm Power of Sodium Chlorite Operator No February 14, 2019 8:15pm Advance Directive Response Recorded Date/ Time Do you have a Healthcare Power of Sodium Chlorite Operator? No January 24, 2025 9:15pm Date Activated Date Inactivated Comments 01/25/2025 12:24 PM Date Activated Date Inactivated Comments 01/25/2025 12:24 PM 01/31/2025 7:26 PM Question Answer Comments Documentation of decision pr ocess for this code status: Patient and surrogate unable or unavailable to discuss. Defaulting to the previously documented code status. Chief Complaint and Reason for Visit Chief Complaint CUSTODIAL LAB WOR K Chief Complaint CUSTODIAL LAB WOR K CUSTODIAL LAB WORK Chief Complaint CUSTODIAL LABWORK CUSTODIAL LAB WORK Chief Complaint CUSTODIAL LAB WOR K CUSTODIAL LABWORK LABWORK LABWORK Chief Complaint CUSTODIAL LABWORK LABWORK LABWORK CUSTODIAL LAB WORK Chief Complaint LABWORK CUSTODIAL LAB WORK CUSTODIAL LAB WORK CUSTODIAL LAB WORK Chief Complaint LABWORK CUSTODIAL LAB WORK CUSTODIAL LAB WORK CUSTODIAL LAB WORK CUSTODIAL LAB WORK ARTERIAL EXAM Reason for Visit Non-pressure ulcer o f left lower extremity with fat layer exposed Pain in left leg PVD (peripheral vascular disease) Chief Complaint LABWORK CUSTODIAL LAB WORK CUSTODIAL LAB WORK CUSTODIAL LAB WORK CUSTODIAL LABWORK CUSTODIAL LAB WORK ARTERIAL EXAM ARTERIAL EXAM Reason for Visit Non-pressure ulcer o f left lower extremity with fat layer exposed Pain in left leg PVD (peripheral vascular disease) 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 PVD (peripheral vascular disease) Chief Complaint CUSTODIAL LAB WOR K CUSTODIAL LAB WORK CUSTODIAL LAB WORK CUSTODIAL LABWORK CUSTODIAL LAB WORK ARTERIAL EXAM ARTERIAL EXAM Reason for Visit Non-pressure ulcer o f left lower extremity with fat layer exposed Pain in left leg PVD (peripheral vascular disease) 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 PVD (peripheral vascular disease) Chief Complaint Admit Date CUSTODIAL LAB WORK October 04, 2024 4 :00am CUSTODIAL LAB WORK November 08, 2024 4:0 0am Chief Complaint Admit Date CUSTODIAL LAB WORK October 04, 2024 4 :00am CUSTODIAL LAB WORK November 08, 2024 4:0 0am gi January 24, 2025 9: 15pm Additional Source Comments INFORMATION SOURCE (unrecogn ized section and content) DATE CREATED AUTHOR 09/18/2020 [employer] [facility] DATE CREATED AUTHOR AUTHOR'S ORGANIZ ATION 03/27/2025 [employer] DATE CREATED AUTHOR AUTHOR'S ORGANIZ ATION 2025 [facility] (unrecognized section and content) Goals [...] dose on Fri01/31/25 at 2100, Until Discontinued 2100 (Due) aspirin EC tablet (CANCELED) 81 mg, [...] 2106 (Given - Provider: Iliana Dean LPN) 08 (Given - Provider: Karine Sánchez RN) hydrophilic wound dressing (TRIAD) external paste Apply externally, 2 TIMES DAILY, First dose on Fri01/26/25 at 1030, Until Discontinued 903 (Given - Provider: Dana Hernández RN)2235 (Given - Provider: Claire Thomas LPN) 899 (Hold/Not Given - Provider: Kathryn Wilder, CASPER - Reason: Not indicated)2106 (Given - Provider: [...] (Given - Provider: Karine Sánchez RN)2099 (Due) pantoprazole (PROTONIX) tablet 40 mg, Oral, DAILY 30 MIN BEFORE BREAKFAST, First dose on Fri01/28/25 at 0830, Until Discontinued 903 (Given - Provider: Dana Hernández RN) 922 (Given - Provider: Kathryn Wilder, RN) 08 (Given - Provider: Karine Sánchez RN) polyethylene glycol (MIRALAX) 17 g packet (CANCELED) 17 g, Oral, DAILY, First dose on Fri01/26/25 at 0900, Until Discontinued 903 (Hold/Not Given - Provider: Dana Hernández RN - Reason: Not indicated)1515 (AUG Hold - Provider: Interface, Adt - Reason: Patient Transfer)2055 (MAR Unhold - Provider: Aliza Hancock MD) 09 (Given - Provider: Kathryn Wilder RN) [...] BE BASED ON THE PRIMARY CLINICAL RECORDS. [employer] provides no warranty or guarantee of the accuracy or completeness of information in this document.
[2025-04-25 08:55] LABS: Hematocrit 29.0 % (37-47); Hemoglobin 7.6 g/dL (12.0-15.0); Mean Corp Hgb Conc 26.2 g/dL (32-36); Mean Corpuscular Volume 66.7 fL (81-99); Mean Platelet Vol. 10.0 fl (6.2-12.0); POSITIVE MORPHOLOGY YES; Platelet Count 377 K/mm3 (150-450); RBC Distribution Width CV 20.4 % (11.6-14.6); RBC Distribution Width SD 48.4 fl (35.1-43.9); Red Blood Count 4.35 M/mm3 (4.2-5.4); White Blood Count 6.4 K/mm3 (4.4-11.0)
[2025-04-25 09:16] LABS: Scan Indicated on CBC? Y/N YES- FLAGS NOTED
== END ==
LOC: OLS.SWAL 04:00
PROVIDERS: PCP Internal Medicine; Referring Provider Internal Medicine; Visit Provider Internal Medicine
DX: D50.9 Iron deficiency anemia, unspecified (principal)
CPT/HCPCS: 36415; 85027

== ENCOUNTER → 2025-04-28 | Outpatient (REF) | payer MEDICARE, MEDICAID, SELFPAY ==
[2025-04-28 10:23] LABS: Hematocrit 29.8 % (37-47); Hemoglobin 7.8 g/dL (12.0-15.0); Mean Corp Hgb Conc 26.2 g/dL (32-36); Mean Corpuscular Volume 67.7 fL (81-99); Mean Platelet Vol. 10.4 fl (6.2-12.0); POSITIVE MORPHOLOGY YES; Platelet Count 433 K/mm3 (150-450); RBC Distribution Width CV 20.6 % (11.6-14.6); RBC Distribution Width SD 49.3 fl (35.1-43.9); Red Blood Count 4.40 M/mm3 (4.2-5.4); White Blood Count 7.0 K/mm3 (4.4-11.0)
[2025-04-28 10:45] LABS: Scan Indicated on CBC? Y/N YES- FLAGS NOTED
== END ==
LOC: OLS.SWAL 08:35
PROVIDERS: PCP Internal Medicine; Visit Provider Internal Medicine
DX: D64.9 Anemia, unspecified (principal)
CPT/HCPCS: 36415; 85027

== ENCOUNTER → 2025-05-09 05:00 | Outpatient (REF) | payer MEDICARE, MEDICAID, SELFPAY ==
--- OUTSIDE RECORDS SUMMARY | 2025-05-09 04:24 | XMS RPT_ITS | CCD ---
Author Organization [facility] Care Team Providers Care Research Hydraulic Engineer Name Role Phone PUAL WEEKS CNP Primary Care Unavailable PAUL WEEKS [...] SALINAS, MAMTA E Primary Care Unavailable SALINAS, MATMA Marcelino Attending Unavailable PAUL WEEKS CNP Consulting [...] Propensity to adverse reactions (disorder) 9 Itching [facility] Repository (13 sources) Aspirin Drug Allergy 9 Itching [facility] (1 source) Aspirin Drug Allergy 5 [facility] Repository Medications Current Medications Medication Drug Class(es) [...] January 24, 2025 12:00am polyethylene glycol 3350 49138 mg powder for oral solution (10 sources) [...] at 0900, Until Discontinued polyethylene glycol 3350 349871 mg / potassium chloride 2970 mg / sodium bicarbonate 6740 mg / sodium chloride 5860 mg / sodium sulfate 27104 mg powder for oral solution (11 sources) Osmotic Laxative Start: 02-09-2025 End: 02-14-2026 polyethylene glycol (GOLYTELY) oral solution Use as directed prior to colonoscopy 4000 mL 02/14/2025 02/14/2026 Active sennosides, shelter 8.6 mg oral tablet (9 sources) Start: [...] at 0900, Until Discontinued polyethylene glycol 3350 990822 mg / potassium chloride 1480 mg / sodium bicarbonate 5720 mg / sodium chloride 34743 mg powder for oral solution (2 sources) [...] (1 source) Anticoagulant control - finding; Translations: [residential (current) use of 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s] 01-25-2025 Episodic Other aftercare (12 sources) Long-term current use of 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; 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, [address] Calcium [Mass/Vol] 8.2 mg/dL Normal 7.6-11.0 [facility] Comment on above: Order Comment: 155 Performed By: #### L 500.4100, L501.5200, L500.4050 #### [facility] [address] [place], [address] Chloride [Moles/Vol] 106 mmol/L Normal 98-108 [facility] Comment on above: Order Comment: 155 Performed By: #### L 500.4100, L501.5200, L500.4050 #### [facility] [address] [place], [address] CO2 [Moles/Vol] 29.3 mmol/L Normal 21.0-32.0 [facility] Comment on above: Order Comment: 155 Performed By: #### L 500.4100, L501.5200, L500.4050 #### [facility] [address] [place], [address] Creatinine [Mass/Vol] 0.60 mg/dL Low 0.70-1.20 [facility] Comment on above: Order Comment: 155 Performed By: #### L 500.4100, L501.5200, L500.4050 #### [facility] [address] [place], [address] GAP 6 Normal 5-15 [facility] Comment on above: Order Comment: 155 Performed By: #### L 500.4100, L501.5200, L500.4050 #### [facility] [address] [place], [address] GFR/1.73 sq M.predicted among non-blacks MDRD (S/P/Bld) [Vol rate/Area] 90 mL/min/{1.73_m2} Normal >60 [facility] Comment on above: Order Comment: 155 Result Comment: mL/m in/1.73m2 CKD-EPI Creatinine Equation (2020) Performed By: #### L 500.4100, L501.5200, L500.4050 #### [facility] [address] [place], [address] Glucose [Mass/Vol] 90 mg/dL Normal 70-99 [facility] Comment on above: Order Comment: 155 Performed By: #### L 500.4100, L501.5200, L500.4050 #### [facility] [address] [place], [address] Potassium [Moles/Vol] 4.1 mmol/L Normal 3.3-5.1 [facility] Comment on above: Order Comment: 155 Performed By: #### L 500.4100, L501.5200, L500.4050 #### [facility] [address] [place], [address] Sodium [Moles/Vol] 141 mmol/L Normal 133-145 [facility] Comment on above: Order Comment: 155 Performed By: #### L 500.4100, L501.5200, L500.4050 #### [facility] [address] [place], [address] Urea nitrogen [Mass/Vol] 9 mg/dL Normal 4-19 [facility] Comment on above: Order Comment: 155 Performed By: #### L 500.4100, L501.5200, L500.4050 #### [facility] [address] [place], [address] CBC-Complete Blood Cnt No Di ffon 04-04-2025 Erythrocyte distribution width (RBC) [Ratio] 20.2 % High 11.6-14.6 [facility] Comment on above: Order Comment: 155 Performed By: #### L 500.4100, L501.5200, L500.4050 #### [facility] [address] [place], [address] Hematocrit (Bld) [Volume fraction] 30.1 % Low 37-47 [facility] Comment on above: Order Comment: 155 Performed By: #### L 500.4100, L501.5200, L500.4050 #### [facility] [address] [place], [address] Hemoglobin (Bld) [Mass/Vol] 8.1 g/dL Low 12.0-15.0 [facility] Comment on above: Order Comment: 155 Performed By: #### L 500.4100, L501.5200, L500.4050 #### [facility] [address] [place], [address] MCH (RBC) [Entitic mass] 17.9 pg Low 27.0-32.0 [facility] Comment on above: Order Comment: 155 Performed By: #### L 500.4100, L501.5200, L500.4050 #### [facility] [address] [place], [address] MCHC (RBC) [Mass/Vol] 26.9 g/dL Low 32-36 [facility] Comment on above: Order Comment: 155 Performed By: #### L 500.4100, L501.5200, L500.4050 #### [facility] [address] [place], [address] MCV (RBC) [Entitic vol] 66.6 fL Low 81-99 [facility] Comment on above: Order Comment: 155 Performed By: #### L 500.4100, L501.5200, L500.4050 #### [facility] [address] [place], [address] Platelet mean volume (Bld) [Entitic vol] 9.7 fL Normal 6.2-12.0 [facility] Comment on above: Order Comment: 155 Performed By: #### L 500.4100, L501.5200, L500.4050 #### [facility] [address] [place], [address] Platelets (Bld) [#/Vol] 448 10*3/uL Normal 150-450 [facility] Comment on above: Order Comment: 155 Performed By: #### L 500.4100, L501.5200, L500.4050 #### [facility] [address] [place], [address] RBC (Bld) [#/Vol] 4.52 10*6/uL Normal 4.2-5.4 [facility] Comment on above: Order Comment: 155 Performed By: #### L 500.4100, L501.5200, L500.4050 #### [facility] [address] [place], [address] RDW SD 47.5 fl High 35.1-43.9 [facility] Comment on above: Order Comment: 155 Performed By: #### L 500.4100, L501.5200, L500.4050 #### [facility] [address] [place], [address] WBC (Bld) [#/Vol] 6.6 10*3/uL Normal 4.4-11.0 [facility] Comment on above: Order Comment: 155 Performed By: #### L 500.4100, L501.5200, L500.4050 #### [facility] [address] [place], [address] Basic Metabolic Profile (BMP )on 03-30-2025 BUN/CRE 9.6 RATIO Low - [facility] Comment on above: Order Comment: 155 Performed By: #### L 500.4100, L501.5200, L500.4050 #### [facility] [address] [place], [address] Calcium [Mass/Vol] 8.1 mg/dL Normal 7.6-11.0 [facility] Comment on above: Order Comment: 155 Performed By: #### L 500.4100, L501.5200, L500.4050 #### [facility] [address] [place], [address] Chloride [Moles/Vol] 108 mmol/L Normal 98-108 [facility] Comment on above: Order Comment: 155 Performed By: #### L 500.4100, L501.5200, L500.4050 #### [facility] [address] [place], [address] CO2 [Moles/Vol] 26.7 mmol/L Normal 21.0-32.0 [facility] Comment on above: Order Comment: 155 Performed By: #### L 500.4100, L501.5200, L500.4050 #### [facility] [address] [place], [address] Creatinine [Mass/Vol] 0.62 mg/dL Low 0.70-1.20 [facility] Comment on above: Order Comment: 155 Performed By: #### L 500.4100, L501.5200, L500.4050 #### [facility] [address] [place], [address] GAP 7 Normal 5-15 [facility] Comment on above: Order Comment: 155 Performed By: #### L 500.4100, L501.5200, L500.4050 #### [facility] [address] [place], [address] GFR/1.73 sq M.predicted among non-blacks MDRD (S/P/Bld) [Vol rate/Area] 89 mL/min/{1.73_m2} Normal >60 [facility] Comment on above: Order Comment: 155 Result Comment: mL/m in/1.73m2 CKD-EPI Creatinine Equation (2020) Performed By: #### L 500.4100, L501.5200, L500.4050 #### [facility] [address] [place], [address] Glucose [Mass/Vol] 89 mg/dL Normal 70-99 [facility] Comment on above: Order Comment: 155 Performed By: #### L 500.4100, L501.5200, L500.4050 #### [facility] [address] [place], [address] Potassium [Moles/Vol] 3.8 mmol/L Normal 3.3-5.1 [facility] Comment on above: Order Comment: 155 Performed By: #### L 500.4100, L501.5200, L500.4050 #### [facility] [address] [place], [address] Sodium [Moles/Vol] 142 mmol/L Normal 133-145 [facility] Comment on above: Order Comment: 155 Performed By: #### L 500.4100, L501.5200, L500.4050 #### [facility] [address] [place], [address] Urea nitrogen [Mass/Vol] 6 mg/dL Normal 4-19 [facility] Comment on above: Order Comment: 155 Performed By: #### L 500.4100, L501.5200, L500.4050 #### [facility] [address] [place], [address] CBC-Complete Blood Cnt No Di ffon 03-30-2025 Erythrocyte distribution width (RBC) [Ratio] 19.9 % High 11.6-14.6 [facility] Comment on above: Order Comment: 155 Performed By: #### L 500.4100, L501.5200, L500.4050 #### [facility] [address] [place], [address] Hematocrit (Bld) [Volume fraction] 27.0 % Low 37-47 [facility] Comment on above: Order Comment: 155 Performed By: #### L 500.4100, L501.5200, L500.4050 #### [facility] [address] [place], [address] Hemoglobin (Bld) [Mass/Vol] 7.3 g/dL Low 12.0-15.0 [facility] Comment on above: Order Comment: 155 Performed By: #### L 500.4100, L501.5200, L500.4050 #### [facility] [address] [place], [address] MCH (RBC) [Entitic mass] 18.1 pg Low 27.0-32.0 [facility] Comment on above: Order Comment: 155 Performed By: #### L 500.4100, L501.5200, L500.4050 #### [facility] [address] [place], [address] MCHC (RBC) [Mass/Vol] 27.0 g/dL Low 32-36 [facility] Comment on above: Order Comment: 155 Performed By: #### L 500.4100, L501.5200, L500.4050 #### [facility] [address] [place], [address] MCV (RBC) [Entitic vol] 67.0 fL Low 81-99 [facility] Comment on above: Order Comment: 155 Performed By: #### L 500.4100, L501.5200, L500.4050 #### [facility] [address] [place], [address] Platelet mean volume (Bld) [Entitic vol] 10.0 fL Normal 6.2-12.0 [facility] Comment on above: Order Comment: 155 Performed By: #### L 500.4100, L501.5200, L500.4050 #### [facility] [address] [place], [address] Platelets (Bld) [#/Vol] 282 10*3/uL Normal 150-450 [facility] Comment on above: Order Comment: 155 Performed By: #### L 500.4100, L501.5200, L500.4050 #### [facility] [address] [place], [address] RBC (Bld) [#/Vol] 4.03 10*6/uL Low 4.2-5.4 [facility] Comment on above: Order Comment: 155 Performed By: #### L 500.4100, L501.5200, L500.4050 #### [facility] [address] [place], [address] RDW SD 47.3 fl High 35.1-43.9 [facility] Comment on above: Order Comment: 155 Performed By: #### L 500.4100, L501.5200, L500.4050 #### [facility] [address] [place], [address] WBC (Bld) [#/Vol] 5.4 10*3/uL Normal 4.4-11.0 [facility] Comment on above: Order Comment: 155 Performed By: #### L 500.4100, L501.5200, L500.4050 #### [facility] [address] [place], [address] Pro- Brain NATRIURETIC PEPTI Kel 03-30-2025 Natriuretic peptide B (Bld) [Mass/Vol] 180 pg/mL Normal <=1800 [facility] Comment on above: Order Comment: 155 Result Comment: Hear t Failure Unlikely: < 300 pg/mL Heart Failure Likely < 50 Years: > 450 pg/mL 50-75 Years: > 900 pg/mL >75 Years: > 1800 pg/mL Performed By: #### L 500.4100, L501.5200, L500.4050 #### [facility] [address] [place], [address] Basic Metabolic Profile (BMP )on 02-16-2025 BUN/CRE 10.6 RATIO Normal 10-20 [facility] Comment on above: Order Comment: 155 Performed By: #### L 500.4100, L501.5200, L500.4050 #### [facility] [address] [place], [address] Calcium [Mass/Vol] 8.7 mg/dL Normal 7.6-11.0 [facility] Comment on above: Order Comment: 155 Performed By: #### L 500.4100, L501.5200, L500.4050 #### [facility] [address] [place], [address] Chloride [Moles/Vol] 107 mmol/L Normal 98-108 [facility] Comment on above: Order Comment: 155 Performed By: #### L 500.4100, L501.5200, L500.4050 #### [facility] [address] [place], [address] CO2 [Moles/Vol] 23.8 mmol/L Normal 21.0-32.0 [facility] Comment on above: Order Comment: 155 Performed By: #### L 500.4100, L501.5200, L500.4050 #### [facility] [address] [place], [address] Creatinine [Mass/Vol] 0.62 mg/dL Low 0.70-1.20 [facility] Comment on above: Order Comment: 155 Performed By: #### L 500.4100, L501.5200, L500.4050 #### [facility] [address] [place], [address] GAP 11 Normal 5-15 [facility] Comment on above: Order Comment: 155 Performed By: #### L 500.4100, L501.5200, L500.4050 #### [facility] [address] [place], [address] GFR/1.73 sq M.predicted among non-blacks MDRD (S/P/Bld) [Vol rate/Area] 89 mL/min/{1.73_m2} Normal >60 [facility] Comment on above: Order Comment: 155 Result Comment: mL/m in/1.73m2 CKD-EPI Creatinine Equation (2020) Performed By: #### L 500.4100, L501.5200, L500.4050 #### [facility] [address] [place], [address] Glucose [Mass/Vol] 93 mg/dL Normal 70-99 [facility] Comment on above: Order Comment: 155 Performed By: #### L 500.4100, L501.5200, L500.4050 #### [facility] [address] [place], [address] Potassium [Moles/Vol] 4.3 mmol/L Normal 3.3-5.1 [facility] Comment on above: Order Comment: 155 Performed By: #### L 500.4100, L501.5200, L500.4050 #### [facility] [address] [place], [address] Sodium [Moles/Vol] 141 mmol/L Normal 133-145 [facility] Comment on above: Order Comment: 155 Performed By: #### L 500.4100, L501.5200, L500.4050 #### [facility] [address] [place], [address] Urea nitrogen [Mass/Vol] 7 mg/dL Normal 4-19 [facility] Comment on above: Order Comment: 155 Performed By: #### L 500.4100, L501.5200, L500.4050 #### [facility] [address] [place], [address] CBC-Complete Blood Cnt No Di ffon 02-16-2025 Erythrocyte distribution width (RBC) [Ratio] 19.4 % High 11.6-14.6 [facility] Comment on above: Order Comment: 155 Performed By: #### L 500.4100, L501.5200, L500.4050 #### [facility] [address] [place], [address] Hematocrit (Bld) [Volume fraction] 27.4 % Low 37-47 [facility] Comment on above: Order Comment: 155 Performed By: #### L 500.4100, L501.5200, L500.4050 #### [facility] [address] [place], [address] Hemoglobin (Bld) [Mass/Vol] 7.7 g/dL Low 12.0-15.0 [facility] Comment on above: Order Comment: 155 Performed By: #### L 500.4100, L501.5200, L500.4050 #### [facility] [address] [place], [address] MCH (RBC) [Entitic mass] 21.1 pg Low 27.0-32.0 [facility] Comment on above: Order Comment: 155 Performed By: #### L 500.4100, L501.5200, L500.4050 #### [facility] [address] [place], [address] MCHC (RBC) [Mass/Vol] 28.1 g/dL Low 32-36 [facility] Comment on above: Order Comment: 155 Performed By: #### L 500.4100, L501.5200, L500.4050 #### [facility] [address] [place], [address] MCV (RBC) [Entitic vol] 75.1 fL Low 81-99 [facility] Comment on above: Order Comment: 155 Performed By: #### L 500.4100, L501.5200, L500.4050 #### [facility] [address] [place], [address] Platelet mean volume (Bld) [Entitic vol] 9.2 fL Normal 6.2-12.0 [facility] Comment on above: Order Comment: 155 Performed By: #### L 500.4100, L501.5200, L500.4050 #### [facility] [address] [place], [address] Platelets (Bld) [#/Vol] 462 10*3/uL High 150-450 [facility] Comment on above: Order Comment: 155 Performed By: #### L 500.4100, L501.5200, L500.4050 #### [facility] [address] [place], [address] RBC (Bld) [#/Vol] 3.65 10*6/uL Low 4.2-5.4 [facility] Comment on above: Order Comment: 155 Performed By: #### L 500.4100, L501.5200, L500.4050 #### [facility] [address] [place], [address] RDW SD 52.3 fl High 35.1-43.9 [facility] Comment on above: Order Comment: 155 Performed By: #### L 500.4100, L501.5200, L500.4050 #### [facility] [address] [place], [address] WBC (Bld) [#/Vol] 6.9 10*3/uL Normal 4.4-11.0 [facility] Comment on above: Order Comment: 155 Performed By: #### L 500.4100, L501.5200, L500.4050 #### [facility] [address] [place], [address] Basic Metabolic Profile (BMP )on 02-09-2025 BUN/CRE 10.8 RATIO Normal 10-20 [facility] Comment on above: Order Comment: 155 Performed By: #### L 500.4100, L501.5200, L500.4050 #### [facility] [address] [place], [address] Calcium [Mass/Vol] 8.6 mg/dL Normal 7.6-11.0 [facility] Comment on above: Order Comment: 155 Performed By: #### L 500.4100, L501.5200, L500.4050 #### [facility] [address] [place], [address] Chloride [Moles/Vol] 106 mmol/L Normal 98-108 [facility] Comment on above: Order Comment: 155 Performed By: #### L 500.4100, L501.5200, L500.4050 #### [facility] [address] [place], [address] CO2 [Moles/Vol] 25.8 mmol/L Normal 21.0-32.0 [facility] Comment on above: Order Comment: 155 Performed By: #### L 500.4100, L501.5200, L500.4050 #### [facility] [address] [place], [address] Creatinine [Mass/Vol] 0.70 mg/dL Normal 0.70-1.20 [facility] Comment on above: Order Comment: 155 Performed By: #### L 500.4100, L501.5200, L500.4050 #### [facility] [address] [place], [address] GAP 9 Normal 5-15 [facility] Comment on above: Order Comment: 155 Performed By: #### L 500.4100, L501.5200, L500.4050 #### [facility] [address] [place], [address] GFR/1.73 sq M.predicted among non-blacks MDRD (S/P/Bld) [Vol rate/Area] 86 mL/min/{1.73_m2} Normal >60 [facility] Comment on above: Order Comment: 155 Result Comment: mL/m in/1.73m2 CKD-EPI Creatinine Equation (2020) Performed By: #### L 500.4100, L501.5200, L500.4050 #### [facility] [address] [place], [address] Glucose [Mass/Vol] 104 mg/dL High 70-99 [facility] Comment on above: Order Comment: 155 Performed By: #### L 500.4100, L501.5200, L500.4050 #### [facility] [address] [place], [address] Potassium [Moles/Vol] 4.8 mmol/L Normal 3.3-5.1 [facility] Comment on above: Order Comment: 155 Performed By: #### L 500.4100, L501.5200, L500.4050 #### [facility] [address] [place], [address] Sodium [Moles/Vol] 141 mmol/L Normal 133-145 [facility] Comment on above: Order Comment: 155 Performed By: #### L 500.4100, L501.5200, L500.4050 #### [facility] [address] [place], [address] Urea nitrogen [Mass/Vol] 8 mg/dL Normal 4-19 [facility] Comment on above: Order Comment: 155 Performed By: #### L 500.4100, L501.5200, L500.4050 #### [facility] [address] [place], [address] CBC-Complete Blood Cnt No Di ffon 02-09-2025 Erythrocyte distribution width (RBC) [Ratio] 19.7 % High 11.6-14.6 [facility] Comment on above: Order Comment: 155 Performed By: #### L 500.4100, L501.5200, L500.4050 #### [facility] [address] [place], [address] Hematocrit (Bld) [Volume fraction] 26.2 % Low 37-47 [facility] Comment on above: Order Comment: 155 Performed By: #### L 500.4100, L501.5200, L500.4050 #### [facility] [address] [place], [address] Hemoglobin (Bld) [Mass/Vol] 7.7 g/dL Low 12.0-15.0 [facility] Comment on above: Order Comment: 155 Performed By: #### L 500.4100, L501.5200, L500.4050 #### [facility] [address] [place], [address] MCH (RBC) [Entitic mass] 22.2 pg Low 27.0-32.0 [facility] Comment on above: Order Comment: 155 Performed By: #### L 500.4100, L501.5200, L500.4050 #### [facility] [address] [place], [address] MCHC (RBC) [Mass/Vol] 29.4 g/dL Low 32-36 [facility] Comment on above: Order Comment: 155 Performed By: #### L 500.4100, L501.5200, L500.4050 #### [facility] [address] [place], [address] MCV (RBC) [Entitic vol] 75.5 fL Low 81-99 [facility] Comment on above: Order Comment: 155 Performed By: #### L 500.4100, L501.5200, L500.4050 #### [facility] [address] [place], [address] Platelet mean volume (Bld) [Entitic vol] 9.5 fL Normal 6.2-12.0 [facility] Comment on above: Order Comment: 155 Performed By: #### L 500.4100, L501.5200, L500.4050 #### [facility] [address] [place], [address] Platelets (Bld) [#/Vol] 559 10*3/uL High 150-450 [facility] Comment on above: Order Comment: 155 Performed By: #### L 500.4100, L501.5200, L500.4050 #### [facility] [address] [place], [address] RBC (Bld) [#/Vol] 3.47 10*6/uL Low 4.2-5.4 [facility] Comment on above: Order Comment: 155 Performed By: #### L 500.4100, L501.5200, L500.4050 #### [facility] [address] [place], [address] RDW SD 53.1 fl High 35.1-43.9 [facility] Comment on above: Order Comment: 155 Performed By: #### L 500.4100, L501.5200, L500.4050 #### [facility] [address] [place], [address] WBC (Bld) [#/Vol] 8.7 10*3/uL Normal 4.4-11.0 [facility] Comment on above: Order Comment: 155 Performed By: #### L 500.4100, L501.5200, L500.4050 #### [facility] [address] [place], [address] CBC-Complete Blood Cnt No Di ffon 02-02-2025 Erythrocyte distribution width (RBC) [Ratio] 19.4 % High 11.6-14.6 [facility] Comment on above: Order Comment: 155 Performed By: #### L 500.4100, L501.5200, L500.4050 #### [facility] [address] [place], [address] Hematocrit (Bld) [Volume fraction] 27.5 % Low 37-47 [facility] Comment on above: Order Comment: 155 Performed By: #### L 500.4100, L501.5200, L500.4050 #### [facility] [address] [place], [address] Hemoglobin (Bld) [Mass/Vol] 8.0 g/dL Low 12.0-15.0 [facility] Comment on above: Order Comment: 155 Performed By: #### L 500.4100, L501.5200, L500.4050 #### [facility] [address] [place], [address] MCH (RBC) [Entitic mass] 22.5 pg Low 27.0-32.0 [facility] Comment on above: Order Comment: 155 Performed By: #### L 500.4100, L501.5200, L500.4050 #### [facility] [address] [place], [address] MCHC (RBC) [Mass/Vol] 29.1 g/dL Low 32-36 [facility] Comment on above: Order Comment: 155 Performed By: #### L 500.4100, L501.5200, L500.4050 #### [facility] [address] [place], [address] MCV (RBC) [Entitic vol] 77.5 fL Low 81-99 [facility] Comment on above: Order Comment: 155 Performed By: #### L 500.4100, L501.5200, L500.4050 #### [facility] [address] [place], [address] Platelet mean volume (Bld) [Entitic vol] 10.5 fL Normal 6.2-12.0 [facility] Comment on above: Order Comment: 155 Performed By: #### L 500.4100, L501.5200, L500.4050 #### [facility] [address] [place], [address] Platelets (Bld) [#/Vol] 376 10*3/uL Normal 150-450 [facility] Comment on above: Order Comment: 155 Performed By: #### L 500.4100, L501.5200, L500.4050 #### [facility] [address] [place], [address] RBC (Bld) [#/Vol] 3.55 10*6/uL Low 4.2-5.4 [facility] Comment on above: Order Comment: 155 Performed By: #### L 500.4100, L501.5200, L500.4050 #### [facility] [address] [place], [address] RDW SD 54.1 fl High 35.1-43.9 [facility] Comment on above: Order Comment: 155 Performed By: #### L 500.4100, L501.5200, L500.4050 #### [facility] [address] [place], [address] WBC (Bld) [#/Vol] 11.8 10*3/uL High 4.4-11.0 [facility] Comment on above: Order Comment: 155 Performed By: #### L 500.4100, L501.5200, L500.4050 #### [facility] [address] [place], [address] Comprehensive Metabolic Prof [facility] 02-02-2025 Albumin [Mass/Vol] 3.4 g/dL Normal 3.4-4.8 [facility] Comment on above: Order Comment: 155 Performed By: #### L 500.4100, L501.5200, L500.4050 #### [facility] [address] [place], [address] Albumin/Globulin [Mass ratio] 1.3 {ratio} Normal 0.9-2.4 [facility] Comment on above: Order Comment: 155 Performed By: #### L 500.4100, L501.5200, L500.4050 #### [facility] [address] [place], [address] ALK PHOS 102 U/L Normal 35-104 [facility] Comment on above: Order Comment: 155 Performed By: #### L 500.4100, L501.5200, L500.4050 #### [facility] [address] [place], [address] ALT [Catalytic activity/Vol] 12 U/L Normal <=34 [facility] Comment on above: Order Comment: 155 Performed By: #### L 500.4100, L501.5200, L500.4050 #### [facility] [address] [place], [address] AST [Catalytic activity/Vol] 27 U/L Normal <=31 [facility] Comment on above: Order Comment: 155 Performed By: #### L 500.4100, L501.5200, L500.4050 #### [facility] [address] [place], [address] Bilirubin [Mass/Vol] 1.49 mg/dL High 0.00-1.30 [facility] Comment on above: Order Comment: 155 Performed By: #### L 500.4100, L501.5200, L500.4050 #### [facility] [address] [place], [address] BUN/CRE 12.3 RATIO Normal 10-20 [facility] Comment on above: Order Comment: 155 Performed By: #### L 500.4100, L501.5200, L500.4050 #### [facility] [address] [place], [address] Calcium [Mass/Vol] 8.5 mg/dL Normal 7.6-11.0 [facility] Comment on above: Order Comment: 155 Performed By: #### L 500.4100, L501.5200, L500.4050 #### [facility] [address] [place], [address] Chloride [Moles/Vol] 102 mmol/L Normal 98-108 [facility] Comment on above: Order Comment: 155 Performed By: #### L 500.4100, L501.5200, L500.4050 #### [facility] [address] [place], [address] CO2 [Moles/Vol] 23.0 mmol/L Normal 21.0-32.0 [facility] Comment on above: Order Comment: 155 Performed By: #### L 500.4100, L501.5200, L500.4050 #### [facility] [address] [place], [address] Creatinine [Mass/Vol] 0.71 mg/dL Normal 0.70-1.20 [facility] Comment on above: Order Comment: 155 Performed By: #### L 500.4100, L501.5200, L500.4050 #### [facility] [address] [place], [address] GAP 11 Normal 5-15 [facility] Comment on above: Order Comment: 155 Performed By: #### L 500.4100, L501.5200, L500.4050 #### [facility] [address] [place], [address] GFR/1.73 sq M.predicted among non-blacks MDRD (S/P/Bld) [Vol rate/Area] 84 mL/min/{1.73_m2} Normal >60 [facility] Comment on above: Order Comment: 155 Result Comment: mL/m in/1.73m2 CKD-EPI Creatinine Equation (2020) Performed By: #### L 500.4100, L501.5200, L500.4050 #### [facility] [address] [place], [address] Globulin (S) [Mass/Vol] 2.6 g/dL Normal 2.2-4.2 [facility] Comment on above: Order Comment: 155 Performed By: #### L 500.4100, L501.5200, L500.4050 #### [facility] [address] [place], [address] Glucose [Mass/Vol] 101 mg/dL High 70-99 [facility] Comment on above: Order Comment: 155 Performed By: #### L 500.4100, L501.5200, L500.4050 #### [facility] [address] [place], [address] Potassium [Moles/Vol] 4.1 mmol/L Normal 3.3-5.1 [facility] Comment on above: Order Comment: 155 Performed By: #### L 500.4100, L501.5200, L500.4050 #### [facility] [address] [place], [address] Sodium [Moles/Vol] 136 mmol/L Normal 133-145 [facility] Comment on above: Order Comment: 155 Performed By: #### L 500.4100, L501.5200, L500.4050 #### [facility] [address] [place], [address] T PROT 6.0 g/dL Normal 5.9-8.4 [facility] Comment on above: Order Comment: 155 Performed By: #### L 500.4100, L501.5200, L500.4050 #### [facility] [address] [place], [address] Urea nitrogen [Mass/Vol] 9 mg/dL Normal 4-19 [facility] Comment on above: Order Comment: 155 Performed By: #### L 500.4100, L501.5200, L500.4050 #### [facility] [address] [place], [address] Vitamin B12on 02-02-2025 Cobalamin (Vitamin B12) [Mass/Vol] 650 pg/mL Normal 180-914 [facility] Comment on above: Order Comment: 155 Performed By: #### L 500.4100, L501.5200, L500.4050 #### [facility] [address] [place], [address] Vitamin D,25 Hydroxyon 02-02 Vitamin D 25-OH 46.4 ng/mL Normal 30-100 [facility] Comment on above: Order Comment: 155 Result Comment: Alessandra min D Status Deficiency: <20 ng/mL (50nmol/L) Insufficiency: 20-30 ng/mL (50-75 nmol/L) Sufficiency: 30-100 ng/mL (75-250 nmol/L) Toxicity: >100 ng/mL (>250 nmol/L) Performed By: #### L 500.4100, L501.5200, L500.4057 #### [facility] [address] [place], [address] XA ADDITIONAL VESSELS (KATYA)o n 02-01-2025 XA ADDITIONAL VESSELS (KATYA) EXAMINATION: XA ART EMBO NON HEMORRHAGE (KATYA), XA ADDITIONAL VESSELS (KATYA), XA CELIAC ARTERY (KATYA) 01/28/2025 05:44 PM CLINICAL HISTORY: Rad Procedure 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 Under fluoroscopic guidance, a 5 Swiss Sos-2 catheter was used to catheterize the superior mesenteric artery. SMA angiography was performed. The catheter was then repositioned into the celiac artery and celiac angiography was performed. The 5 Swiss diagnostic sheath was exchanged over wire for a 6 Swiss long angled sheath. Sheath was advanced into [...] agree with the resident's interpretation. Normal [facility] XA ART EMBO NON HEMORRHAGE ( [...] and the sheath exchanged for a 5 Swiss hemostatic sheath. Under fluoroscopic guidance, a 5 Swiss Sos-2 catheter was used to catheterize the superior mesenteric artery. SMA angiography was performed. The catheter was then repositioned into the celiac artery and celiac angiography was performed. The 5 Swiss diagnostic sheath was exchanged over wire for a 6 Swiss long angled sheath. Sheath was advanced into [...] agree with the resident's interpretation. Normal [facility] XA CELIAC ARTERY (KATYA)on XA CELIAC [...] and the sheath exchanged for a 5 Swiss hemostatic sheath. Under fluoroscopic guidance, a 5 Swiss Sos-2 catheter was used to catheterize the superior mesenteric artery. SMA angiography was performed. The catheter was then repositioned into the celiac artery and celiac angiography was performed. The 5 Swiss diagnostic sheath was exchanged over wire for a 6 Swiss long angled sheath. Sheath was advanced into [...] (Bld) [#/Vol] 0.06 10*3/uL Normal 0.00-0.20 [facility] Comment on above: Performed By: #### Aruna Olivas, CH8 #### [facility] [address] [place] [address], Basophils/100 WBC (Bld) 0.5 % Normal <=1.9 [facility] Comment on above: Performed By: #### Aruna Olivas, CH8 #### [facility] [address] [place] [address], Eosinophils (Bld) [#/Vol] 0.15 10*3/uL Normal 0.00-0.70 [facility] Comment on above: Performed By: #### Aruna Olivas, CH8 #### [facility] [address] [place] [address], Eosinophils/100 WBC (Bld) 1.4 % Normal 0.1-4.0 [facility] Comment on above: Performed By: #### Aruna Olivas, CH8 #### [facility] [address] [place] [address], Erythrocyte distribution width (RBC) [Ratio] 21.7 % High 11.5-14.5 [facility] Comment on above: Performed By: #### Aruna Olivas, CH8 #### [facility] [address] [place] [address], Hematocrit (Bld) [Volume fraction] 25.5 % Low 36.0-46.0 [facility] Comment on above: Performed By: #### Aruna Olivas, CH8 #### [facility] [address] [place] [address], Hemoglobin (Bld) [Mass/Vol] 8.1 g/dL Low 12.0-15.0 [facility] Comment on above: Performed By: #### Aruna Olivas, CH8 #### [facility] [address] [place] [address], Lymphocytes (Bld) [#/Vol] 1.13 10*3/uL Normal 1.00-4.80 [facility] Comment on above: Performed By: #### Aruna Olivas, CH8 #### S [facility] LAB[facility]AT[facility] [address] [place] [address], Lymphocytes/100 WBC (Bld) 10.6 % Low 24.0-44.0 [facility] Comment on above: Performed By: #### Aruna Olivas, CH8 #### [facility] [address] [place] [address], MCH (RBC) [Entitic mass] 23.3 pg Low 26.0-34.0 [facility] Comment on above: Performed By: #### Aruna Olivas, CH8 #### [facility] [address] [place] [address], MCHC (RBC) [Mass/Vol] 31.8 g/dL Low 32.0-35.9 [facility] Comment on above: Performed By: #### Aruna Olivas, CH8 #### S [facility] [address] [place] [address], MCV (RBC) [Entitic vol] 73 fL Low 80-100 [facility] Comment on above: Performed By: #### Aruna Olivas, CH8 #### [facility] [address] [place] [address], Monocytes (Bld) [#/Vol] 1.76 10*3/uL High 0.20-1.00 [facility] Comment on above: Performed By: #### Aruna Olivas, CH8 #### S [facility] [address] [place] [address], Monocytes/100 WBC (Bld) 16.5 % High 2.0-11.0 [facility] Comment on above: Performed By: #### Aruna Olivas, CH8 #### [facility] [address] [place], [place], Neutrophils (Bld) [#/Vol] 7.56 10*3/uL Normal 1.50-8.00 [facility] Comment on above: Performed By: #### Aruna Olivas, CH8 #### [facility] [address], [place], Neutrophils/100 WBC (Bld) 71.0 % Normal 31.0-76.0 [facility] Comment on above: Performed By: #### Aruna Olivas, CH8 #### [facility] [address] [place], [place], Platelet mean volume (Bld) [Entitic vol] 8.1 fL Normal 7.5-11.2 [facility] Comment on above: Performed By: #### Aruna Olivas, CH8 #### [facility] [address] [place], [place], Platelets (Bld) [#/Vol] 209 10*3/uL Normal 150-400 [facility] Comment on above: Performed By: #### Aruna Olivas, CH8 #### [facility] [address] [place], [place], RBC (Bld) [#/Vol] 3.47 10*6/uL Low 4.00-5.20 [facility] Comment on above: Performed By: #### Aruna Olivas, CH8 #### [facility] [address] [place], [place], WBC (Bld) [#/Vol] 10.6 10*3/uL Normal 4.5-11.5 [facility] Comment on above: Performed By: #### Aruna Olivas, CH8 #### [facility] [address], [place], Discharge Planning Noteon 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 Spoke with Pts son over the phone to discuss dispo. Patient open and agreeable to HHC. CM provided Pt son the quality and resource use measure data from available post-acute (PAC) providers, that best align with the patient's treatment goals and preferences from the medicare.gov compare site for [facility]. [place] of Choice was provided to the patient/patient call center support representative. CM to follow up with accepting agencies. CM to continue to follow. ADDENDUM: CM spoke with Debra Campbell from [facility] and she states that the patient can receive therapy under Medicare part B from PT at her AL if she so wishes. CM will continue to follow additional discharge planning needs. ADDENDUM: CM spoke with Pt son and notified him that patient would be discharge back to her AL today. Son stated that he would be at to excelsior picker pt and transport her back to [facility] after 5pm. CM will continue to follow. Breanna Wilder MSN, RN Inpatient Manager Of Human Resources W Cell [phone] Desk [phone] Normal [facility] MANUAL DIFF AND MORPHon 08-2 Acanthocytes LM Ql (Bld) Few [facility] Carlos cells LM Ql (Bld) Few [facility] Cells Counted Total (Bld) [#] [facility] Microcytes Ql (Bld) Slight [facility] Ovalocytes LM Ql (Bld) Few [facility] RBC.hypochromic/100 RBC Auto (Bld) Moderate [facility] Schistocytes LM Ql (Bld) Few [facility] ACANTHOCYTES Few Normal [facility] Comment on above: Performed By: #### Aruna Olivas CH8 #### [facility] [address] [place] [address], CARLOS CELLS Few Normal [facility] Comment on above: Performed By: #### Aruna Olivas CH8 #### [facility] [address] [place] [address], CELLS COUNTED TOTAL # IN BLOOD Normal [facility] Comment on above: Performed By: #### Aruna Olivas CH8 #### [facility] [address] [place] [address], FRAGMENTED RBC Few Normal [facility] Comment on above: Performed By: #### Aruna Olivas CH8 #### [facility] [address] [place] [address], HYPOCHROMASIA Moderate Normal [facility] Comment on above: Performed By: #### M Deisy, CH8 #### S [facility] [address], [place], MICROCYTOSIS Slight Normal [facility] Comment on above: Performed By: #### M Deisy, CH8 #### S [facility] [address], [place], OVALOCYTES Few Normal [facility] Comment on above: Performed By: #### M Deisy, CH8 #### S [facility] [address], [place], No Panel Informationon 01-31 [facility] Assessment AND Plan Noteon 0 01-30-2025 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 Whittaker or until AC restarted. Normal [facility] [employer] Interface Message Text --trend CBC daily, transfuse [...] resume anticoagulation after polyp biopsy Normal [facility] Tunii Authentication Interface Message Text --chronic. stable. continue home statin Normal [facility] BASIC METABOLIC PANELon 08-2 Anion gap [Moles/Vol] 11 mmol/L Normal 10-20 [facility] Comment on above: Performed By: #### M G, CH8 ####S PATHOLOGY [id number] [place], [place], Calcium [Mass/Vol] 8.1 mg/dL Low 8.6-10.3 [facility] Comment on above: Performed By: #### Aruna Olivas, CH8 ####S PATHOLOGY [id number] [place], [place], Chloride [Moles/Vol] 106 mmol/L Normal 98-107 [facility] Comment on above: Performed By: #### Aruna Olivas, CH8 ####S PATHOLOGY [id number] [place], CO2 [Moles/Vol] 27 mmol/L Normal 21-31 [facility] Comment on above: Performed By: #### Aruna Olivas, CH8 ####S PATHOLOGY [id number] [place], [place], Creatinine [Mass/Vol] 0.51 mg/dL Low 0.60-1.20 [facility] Comment on above: Performed By: #### Aruna Olivas, CH8 ####S PATHOLOGY [id number] [place], [place], ESTIMATED GFR (CKD-EPI) 93 mL/min/1.73sqm Normal >=60 [facility] Comment on above: Result Comment: 2020 [...] Inclusion of Race in Diagnosing Kidney Disease. Chinese Journal of Kidney Diseases 2021;79(2):268-88.e1. 2. N Engl J Med 1 Vol. 385 Issue 19 Pages 8986-9641 Performed By: #### Aruna Olivas, CH8 ####S PATHOLOGY [id number] [place], [place], Glucose [Mass/Vol] 94 mg/dL Normal 74-109 [facility] Comment on above: Performed By: #### Aruna Olivas, CH8 ####S PATHOLOGY [id number] [place], Potassium [Moles/Vol] 4.1 mmol/L Normal 3.5-5.0 [facility] Comment on above: Performed By: #### Aruna Olivas, CH8 ####[facility] PATHOLOGY [id number] [place], Sodium [Moles/Vol] 140 mmol/L Normal 136-145 [facility] Comment on above: Performed By: #### Aruna Olivas, CH8 ####[facility] PATHOLOGY [id number] [place], Urea nitrogen [Mass/Vol] 6 mg/dL Low 7-25 [facility] Comment on above: Performed By: #### Aruna Olivas, CH8 ####S PATHOLOGY [id number] [place], Basic metabolic 2000 panelon 01-30-2025 Anion gap [Moles/Vol] 11 mmol/L 10 - 20 [facility] Cal[facility] [Mass/Vol] 8.1 mg/dL Low 8.6 [...] Inclusion of Race in Diagnosing Kidney Disease. Chinese Journal of Kidney Diseases 202;79(2):268-88.e1. 2. N Engl J Med 2021 Vol. 385 Issue 19 Pages 1780-3196 Glucose [Mass/Vol] 94 mg/dL 74 - 109 [...] [#/Vol] 9.6 10*3/uL 4.5 - 11.5 K/uL [facility] CBC WITH DIFFERENTIALon 01-08 Basophils (Bld) [#/Vol] 0.05 10*3/uL Normal 0.00-0.20 [facility] Comment on above: Performed By: ###Roger Olivas CH8 #### [facility] [address] [place] [address], Basophils/100 WBC (Bld) 0.5 % Normal <=1.9 [facility] Comment on above: Performed By: ###Roger Olivas CH8 #### [facility] [address] [place] [address], Eosinophils (Bld) [#/Vol] 0.13 10*3/uL Normal 0.00-0.70 [facility] Comment on above: Performed By: ###Roger Olivas CH8 #### [facility] [address] [place] [address], Eosinophils/100 WBC (Bld) 1.4 % Normal 0.1-4.0 [facility] Comment on above: Performed By: ###Roger Olivas CH8 #### [facility] [address] [place] [address], Erythrocyte distribution width (RBC) [Ratio] 20.9 % High 11.5-14.5 [facility] Comment on above: Performed By: ###Roger Oliavs CH8 #### [facility] [address] [place] [address], Hematocrit (Bld) [Volume fraction] 24.2 % Low 36.0-46.0 [facility] Comment on above: Performed By: #### Aruna Olivas, CH8 #### [facility] [address] [place] [address], Hemoglobin (Bld) [Mass/Vol] 7.9 g/dL Low 12.0-15.0 [facility] Comment on above: Performed By: #### Aruna Olivas, CH8 #### [facility] [address] [place] [address], Lymphocytes (Bld) [#/Vol] 1.02 10*3/uL Normal 1.00-4.80 [facility] Comment on above: Performed By: #### Aruna Olivas, CH8 #### [facility] [address] [place] [address], Lymphocytes/100 WBC (Bld) 10.6 % Low 24.0-44.0 [facility] Comment on above: Performed By: #### Aruna Olivas, CH8 #### [facility] [address] [place] [address], MCH (RBC) [Entitic mass] 23.3 pg Low 26.0-34.0 [facility] Comment on above: Performed By: #### Aruna Olivas, CH8 #### [facility] [address] [place] [address], MCHC (RBC) [Mass/Vol] 32.7 g/dL Normal 32.0-35.9 [facility] Comment on above: Performed By: #### Aruna Olivas, CH8 #### [facility] [address] [place] [address], MCV (RBC) [Entitic vol] 71 fL Low 80-100 [facility] Comment on above: Performed By: #### Aruna Olivas, CH8 #### [facility] [address] [place] [address], Monocytes (Bld) [#/Vol] 1.42 10*3/uL High 0.20-1.00 [facility] Comment on above: Performed By: #### Aruna Olivas, CH8 #### S PATHOLOGY LABORATORY [address] [place], [place], Monocytes/100 WBC (Bld) 14.8 % High 2.0-11.0 [facility] Comment on above: Performed By: #### Aruna Olivas, CH8 #### S PATHOLOGY LABORATORY [address] [place], [place], Neutrophils (Bld) [#/Vol] 6.94 10*3/uL Normal 1.50-8.00 [facility] Comment on above: Performed By: #### Aruna Olivas, CH8 #### [facility] [address] [place], [place], Neutrophils/100 WBC (Bld) 72.6 % Normal 31.0-76.0 [facility] Comment on above: Performed By: #### Aruna Olivas, CH8 #### [facility] [address] [place], [place], Platelet mean volume (Bld) [Entitic vol] 8.5 fL Normal 7.5-11.2 [facility] Comment on above: Performed By: #### Aruna Olivas, CH8 #### [facility] [address] [place], [place], Platelets (Bld) [#/Vol] 206 10*3/uL Normal 150-400 [facility] Comment on above: Performed By: #### Aruna Olivas, CH8 #### [facility] [address] [place], RBC (Bld) [#/Vol] 3.39 10*6/uL Low 4.00-5.20 [facility] Comment on above: Performed By: #### Aruna Olivas, CH8 #### [facility] [address] [place], WBC (Bld) [#/Vol] 9.6 10*3/uL Normal 4.5-11.5 [facility] Comment on above: Performed By: #### Aruna Olivas, CH8 #### [facility] [address] [place] [address], MAGNESIUMon 01-30-2025 Interpretation and review of laboratory results Normal [facility] Magnesium [Mass/Vol] 1.9 mg/dL 1.9 - 2 .7 mg/dL [facility] Magnesium [Mass/Vol] 1.9 mg/dL Normal 1.9-2.7 [facility] Comment on above: Performed By: #### Aruna Olivas, CH8 ####S PATHOLOGY [id number] [place], MANUAL DIFF AND MORPHon 01-08 [place] cells LM Ql (Bld) Few [facility] Cells Counted Total (Bld) [#] [facility] Microcytes Ql (Bld) Slight [facility] Ovalocytes LM Ql (Bld) Few [facility] RBC.hypochromic/100 RBC Auto (Bld) Moderate [facility] Schistocytes LM Ql (Bld) Few [facility] CARLOS CELLS Few Normal [facility] Comment on above: Performed By: #### Aruna Olivas, CH8 #### S PATHOLOGY LABORATORY [address] [place] [address], CELLS COUNTED TOTAL # IN BLOOD Normal [facility] Comment on above: Performed By: #### Aruna Olivas, CH8 #### S PATHOLOGY LABORATORY [address] [place] [address], FRAGMENTED RBC Few Normal [facility] Comment on above: Performed By: #### Aruna Olivas, CH8 #### S PATHOLOGY LABORATORY [address] [place] [address], HYPOCHROMASIA Moderate Normal [facility] Comment on above: Performed By: #### Aruna Olivas, CH8 #### S PATHOLOGY LABORATORY [address] [place] [address], MICROCYTOSIS Slight Normal [facility] Comment on above: Performed By: #### Aruna Olivas, CH8 #### S PATHOLOGY LABORATORY [address] [place] [address], OVALOCYTES Few Normal [facility] Comment on above: Performed By: #### Aruna Olivas, CH8 #### S PATHOLOGY LABORATORY [address] [place] [address], No Panel Informationon 01-30 [facility] Assessment AND Plan Noteon 0 8-23-2025 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 stable. 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 Whittaker or until Eliquis restarted. Normal [facility] BASIC METABOLIC PANELon 08-2 Anion gap [Moles/Vol] 9 mmol/L Low 10-20 [facility] Comment on above: Performed By: ###Roger Olivas CH8 #### S PATHOLOGY LABORATORY [address] [place] [address], Calcium [Mass/Vol] 7.9 mg/dL Low 8.6-10.3 [facility] Comment on above: Performed By: ###Roger Olivas CH8 #### S PATHOLOGY LABORATORY [address] [place] [address], Chloride [Moles/Vol] 112 mmol/L High 98-107 [facility] Comment on above: Performed By: #### Aruna Olivas CH8 #### [facility] [address] [place] [address], CO2 [Moles/Vol] 24 mmol/L Normal 21- [facility] Comment on above: Performed By: ###Roger Olivas CH8 #### S PATHOLOGY LABORATORY [address] [place] [address], Creatinine [Mass/Vol] 0.52 mg/dL Low 0.60-1.20 [facility] Comment on above: Performed By: #### Aruna Olivas CH8 #### S PATHOLOGY LABORATORY [address] [place] [address], ESTIMATED GFR (CKD-EPI) 93 mL/min/1.73sqm Normal >=60 [...] Inclusion of Race in Diagnosing Kidney Disease. Chinese Journal of Kidney Diseases 2021;79(2):268-88.e1. 2. N Engl J Med 2020 Vol. 385 Issue 19 Pages 7951-2918 Performed By: ###Roger Olivas CH8 #### S PATHOLOGY LABORATORY [address] [place] [address], Glucose [Mass/Vol] 105 mg/dL Normal 74-109 [facility] Comment on above: Performed By: ###Roger Olivas CH8 #### S PATHOLOGY LABORATORY [address] [place] [address], Potassium [Moles/Vol] 3.4 mmol/L Low 3.5-5.0 [facility] Comment on above: Performed By: ###Roger Olivas CH8 #### S PATHOLOGY LABORATORY [address] [place] [address], Sodium [Moles/Vol] 142 mmol/L Normal 136-145 [facility] Comment on above: Performed By: #### Aruna Olivas CH8 #### S PATHOLOGY LABORATORY [address] [place] [address], Urea nitrogen [Mass/Vol] 5 mg/dL Low 7-25 [facility] Comment on above: Performed By: ###Roger Olivas CH8 #### S PATHOLOGY LABORATORY [address] [place] [address], Basic metabolic 2000 panelon 01-29-2025 Anion gap [...] Inclusion of Race in Diagnosing Kidney Disease. Chinese Journal of Kidney Diseases 202;79(2):268-88.e1. 2. N Engl J Med 1 Vol. 385 Issue 19 Pages 5972-7662 Glucose [Mass/Vol] 105 mg/dL 74 - 109 [...] Performed By: #### M G, CH8 #### [facility] [address] [place], [place], Basophils/100 WBC (Bld) 0.7 % Normal <=1.9 [facility] Comment on above: Performed By: #### Aruna Olivas, CH8 #### [facility] [address] [place], Eosinophils (Bld) [#/Vol] 0.19 10*3/uL Normal 0.00-0.70 [facility] Comment on above: Performed By: #### Aruna Olivas, CH8 #### [facility] [address] [place], Eosinophils/100 WBC (Bld) 2.5 % Normal 0.1-4.0 [facility] Comment on above: Performed By: #### Aruna Olivas, CH8 #### [facility] [address] [place], Erythrocyte distribution width (RBC) [Ratio] 20.9 % High 11.5-14.5 [facility] Comment on above: Performed By: #### Aruna Olivas, CH8 #### [facility] [address] [place], Hematocrit (Bld) [Volume fraction] 24.9 % Low 36.0-46.0 [facility] Comment on above: Performed By: #### Aruna Olivas, CH8 #### [facility] [address] [place], Hemoglobin (Bld) [Mass/Vol] 7.8 g/dL Low 12.0-15.0 [facility] Comment on above: Performed By: #### Aruna Olivas, CH8 #### [facility] [address] [place], Lymphocytes (Bld) [#/Vol] 1.00 10*3/uL Normal 1.00-4.80 [facility] Comment on above: Performed By: #### Aruna Olivas, CH8 #### [facility] [address] [place], Lymphocytes/100 WBC (Bld) 12.8 % Low 24.0-44.0 [facility] Comment on above: Performed By: #### Aruna Olivas, CH8 #### [facility] [address] [place] [address], MCH (RBC) [Entitic mass] 23.2 pg Low 26.0-34.0 [facility] Comment on above: Performed By: #### Aruna Olivas, CH8 #### [facility] [address] [place], MCHC (RBC) [Mass/Vol] 31.4 g/dL Low 32.0-35.9 [facility] Comment on above: Performed By: #### Aruna Olivas, CH8 #### [facility] [address] [place], MCV (RBC) [Entitic vol] 74 fL Low 80-100 [facility] Comment on above: Performed By: #### Aruna Olivas, CH8 #### [facility] [address] [place] [address], Monocytes (Bld) [#/Vol] 1.14 10*3/uL High 0.20-1.00 [facility] Comment on above: Performed By: #### Aruna Olivas, CH8 #### [facility] [address] [place] [address], Monocytes/100 WBC (Bld) 14.6 % High 2.0-11.0 [facility] Comment on above: Performed By: #### Aruna Olivas, CH8 #### [facility] [address] [place] [address], Neutrophils (Bld) [#/Vol] 5.44 10*3/uL Normal 1.50-8.00 [facility] Comment on above: Performed By: #### Aruna Olivas, CH8 #### [facility] [address] [place] [address], Neutrophils/100 WBC (Bld) 69.5 % Normal 31.0-76.0 [facility] Comment on above: Performed By: #### Aruna Olivas, CH8 #### [facility] [address] [place] [address], Platelet mean volume (Bld) [Entitic vol] 8.2 fL Normal 7.5-11.2 [facility] Comment on above: Performed By: #### Aruna Olivas, [id number] #### [facility] [address] [place] [address], Platelets (Bld) [#/Vol] 174 10*3/uL Normal 150-400 [facility] Comment on above: Performed By: #### Aruna Olivas, RODRIGUEZ8 #### [facility] [address] [place] [address], RBC (Bld) [#/Vol] 3.36 10*6/uL Low 4.00-5.20 [facility] Comment on above: Performed By: #### Aruna Olivas, RODRIGUEZ8 #### [facility] [address] [place] [address], WBC (Bld) [#/Vol] 7.8 10*3/uL Normal 4.5-11.5 [facility] Comment on above: Performed By: #### Aruna Olivas, RODRIGUEZ8 #### [facility] [address] [place] [address], MAGNESIUMon 01-29-2025 Interpretation and review of laboratory results Normal [facility] Magnesium [Mass/Vol] 1.9 mg/dL 1.9 - 2 .7 mg/dL [facility] Magnesium [Mass/Vol] 1.9 mg/dL Normal 1.9-2.7 [facility] Comment on above: Performed By: #### Aruna Olivas, RODRIGUEZ8 #### [facility] [address] [place] [address], MANUAL DIFF AND MORPHon 01-08 Acanthocytes LM Ql (Bld) Moderate [facility] Cells Counted Total (Bld) [#] [facility] Microcytes Ql (Bld) Slight [facility] Ovalocytes LM Ql (Bld) Few [facility] RBC.hypochromic/100 RBC Auto (Bld) Moderate [facility] Schistocytes LM Ql (Bld) Few [facility] ACANTHOCYTES Moderate Normal [facility] Comment on above: Performed By: #### Aruna Olivas, CH8 #### [facility] [address] [place] [address], CELLS COUNTED TOTAL # IN BLOOD Normal [facility] Comment on above: Performed By: #### M G, CH8 #### S PATHOLOGY LABORATORY [address] [place] [address], FRAGMENTED RBC Few Normal [facility] Comment on above: Performed By: #### M G, CH8 #### S PATHOLOGY LABORATORY [address] [place], HYPOCHROMASIA Moderate Normal [facility] Comment on above: Performed By: #### M G, CH8 #### S PATHOLOGY LABORATORY [address] [place], MICROCYTOSIS Slight Normal [facility] Comment on above: Performed By: #### M G, CH8 #### S PATHOLOGY LABORATORY [address] [place] [address], OVALOCYTES Few Normal [facility] Comment on above: Performed By: #### M G, CH8 #### [facility] [address] [place] [address], No Panel InformationOrdered By: Sayra Dudley on 01-29-2025 [facility] No Panel Informationon 01-29 [facility] Transfer Noteon 01-29-2025 Cigarette Packing Machine Operator Authentication Interface Message Text . TRANSFER NOTE Patient: Ms. Ely Hurtado, an 84 year old (Full Code) Room: [address] [id number] FROM Step down unit TO Medicine [...] currently resides at [facility] ([facility]) where she was found to have significant bright red blood in her stool following multiple episodes of diarrhea on the morning of 01/24. They were transferred to the [facility] ED later that day for further evaluation. 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 Nelda James DO Family Medicine, PGY2 FM Pager: [phone] Normal [facility] BASIC METABOLIC PANELon 08 Anion gap [Moles/Vol] 11 mmol/L Normal 10-20 [facility] Comment on above: Performed By: #### DAMON Hamilton ####[facility] PATH[facility] [id number] [place], [id number] Calcium [Mass/Vol] 7.8 mg/dL Low 8.6-10.3 [facility] Comment on above: Performed By: #### DAMON Hamilton ####[facility] PATH[facility] [id number] [place], Chloride [Moles/Vol] 113 mmol/L High 98-107 [facility] Comment on above: Performed By: #### Aruna Olivas CH8 ####S PATHOLOGY [id number] [place], CO2 [Moles/Vol] 21 mmol/L Normal 21-31 [facility] Comment on above: Performed By: #### Aruna Olivas CH8 ####S PATHOLOGY [id number] [place], Creatinine [Mass/Vol] 0.56 mg/dL Low 0.60-1.20 [facility] Comment on above: Performed By: #### Aruna Olivas CH8 ####[facility] [id number] [place], ESTIMATED GFR (CKD-EPI) 91 mL/min/1.73sqm Normal [...] Inclusion of Race in Diagnosing Kidney Disease. Chinese Journal of Kidney Diseases 2021;79(2):268-88.e1. 2. N Engl J Med 2020 Vol. 385 Issue 19 Pages 8936-0904 Performed By: #### Aruna Olivas CH8 ####S PATHOLOGY [id number] [place], Glucose [Mass/Vol] 135 mg/dL High 74-109 [facility] Comment on above: Performed By: #### Aruna Olivas CH8 ####S PATHOLOGY [id number] [place], Potassium [Moles/Vol] 3.2 mmol/L Low 3.5-5.0 [facility] Comment on above: Performed By: #### M G, CH8 ####S PATHOLOGY [id number] [place], Sodium [Moles/Vol] 142 mmol/L Normal 136-145 [facility] Comment on above: Performed By: #### Aruna Olivas, CH8 ####S PATHOLOGY [id number] [place], Urea nitrogen [Mass/Vol] 7 mg/dL Normal 7-25 [facility] Comment on above: Performed By: #### Aruna Olivas, CH8 ####[facility] [id number] [place], Basic metabolic 2000 panelon 01-28-2025 Anion [...] Inclusion of Race in Diagnosing Kidney Disease. Chinese Journal of Kidney Diseases 202;79(2):268-88.e1. 2. N Engl J Med 1 Vol. 385 Issue 19 Pages 2837-4329 Glucose [Mass/Vol] 135 mg/dL High 74 - [...] (Bld) [#/Vol] 0.10 10*3/uL Normal 0.00-0.20 [facility] Comment on above: Performed By: #### FREDERICK YOUNG ####[facility] PATH[facility] [id number] [place], Basophils/100 WBC (Bld) 1.3 % Normal <=1.9 [facility] Comment on above: Performed By: ###FREDERICK BRUNSON ####[facility] PATH[facility]Y [id number] [place] [address], Eosinophils (Bld) [#/Vol] 0.22 10*3/uL Normal 0.00-0.70 [facility] Comment on above: Performed By: ###FREDERICK BRUNSON ####[facility] PATH[facility] [id number] [place], Eosinophils/100 WBC (Bld) 2.8 % Normal 0.1-4.0 [facility] Comment on above: Performed By: ###FREDERICK BRUNSON ####[facility] PATH[facility] [id number] [place], Erythrocyte distribution width (RBC) [Ratio] 20.5 % High 11.5-14.5 [facility] Comment on above: Performed By: #### FREDERICK YOUNG ####[facility] PATH[facility] [id number] [place], Hematocrit (Bld) [Volume fraction] 23.7 % Low 36.0-46.0 [facility] Comment on above: Performed By: #### FREDERICK YOUNG ####[facility] PATH[facility] [id number] [place], Hemoglobin (Bld) [Mass/Vol] 7.4 g/dL Low 12.0-15.0 [facility] Comment on above: Performed By: ###FREDERICK BRUNSON ####[facility] PATHOLOGY [id number] [place], Lymphocytes (Bld) [#/Vol] 0.92 10*3/uL Low 1.00-4.80 [facility] Comment on above: Performed By: ###FREDERICK BRUNSON ####[facility] PATHOLOGY [id number] [place] [address], Lymphocytes/100 WBC (Bld) 11.5 % Low 24.0-44.0 [facility] Comment on above: Performed By: ###FREDERICK BRUNSON ####[facility] PATHOLOGY [id number] [place] [address], MCH (RBC) [Entitic mass] 23.2 pg Low 26.0-34.0 [facility] Comment on above: Performed By: ###FREDERICK BRUNSON ####[facility] PATHOLOGY [id number] [place] [address], MCHC (RBC) [Mass/Vol] 31.3 g/dL Low 32.0-35.9 [facility] Comment on above: Performed By: ###FREDERICK BRUNSON ####[facility] PATHOLOG[facility] [id number] [place], MCV (RBC) [Entitic vol] 74 fL Low 80-100 [facility] Comment on above: Performed By: ###FREDERICK BRUNSON ####[facility] PATHOLOG[facility] [id number] [place], Monocytes (Bld) [#/Vol] 1.05 10*3/uL High 0.20-1.00 [facility] Comment on above: Performed By: ###FREDERICK BRUNSON ####[facility] PATHOLOG[facility] [id number] [place], Monocytes/100 WBC (Bld) 13.1 % High 2.0-11.0 [facility] Comment on above: Performed By: ###FREDERICK BRUNSON ####[facility] PATHOLOG[facility] [id number] [place], Neutrophils (Bld) [#/Vol] 5.71 10*3/uL Normal 1.50-8.00 [facility] Comment on above: Performed By: ###FREDERICK BRUNSON ####[facility] PATHOLOGY [id number] [place], Neutrophils/100 WBC (Bld) 71.3 % Normal 31.0-76.0 [facility] Comment on above: Performed By: ###FREDERICK BRUNSON ####[facility] PATHOLOG[facility] [id number] [place], Platelet mean volume (Bld) [Entitic vol] 8.2 fL Normal 7.5-11.2 [facility] Comment on above: Performed By: ###FREDERICK BRUNSON ####[facility] PATHOLOGY [id number] [place], Platelets (Bld) [#/Vol] 177 10*3/uL Normal 150-400 [facility] Comment on above: Performed By: ###FREDERICK BRUNSON ####[facility] PATHOLOG[facility] [id number] [place], RBC (Bld) [#/Vol] 3.21 10*6/uL Low 4.00-5.20 [facility] Comment on above: Performed By: ###FREDERICK BRUNSON ####[facility] PATHOLOGY [id number] [place], [place], WBC (Bld) [#/Vol] 8.0 10*3/uL Normal 4.5-11.5 [facility] Comment on above: Performed By: ###FREDERICK BRUNSON ####S PATHOLOGY [id number] [place], [place], Care Plan Noteon 01-28-2025 Cigarette Packing Machine Operator Authentication Interface Message Text Spoke with Pt's [...] Family verbalized understanding. DO Celine Whitehead [facility] Consultson 01-28-2025 Cigarette Packing Machine Operator Authentication Interface Message Text Dietitian vs DietaryTech: Dietary TechDiet Front Facer Nutrition Screening Reason for visit: LOS 5 [...] up. Will continue to follow, Ava Hays [employer] Pager#[phone] Time spent on patient care: 15 minutes [1] No past medical history on file. Normal [facility] Discharge Planning Noteon Cigarette Packing Machine Operator Authentication Interface Message Text SW/CM aware that patient meets criteria for SNF. Met with pt son via phone call discuss dispo. Patient open and agreeable to SNF placement. CM/SW provided pt son the quality and resource use measure data from available post-acute (PAC) providers, that best align with the patient's treatment goals and preferences from the medicare.gov compare site for SNF. [place] of Choice was provided to the patient/patient call center support representative. For SNF: RN/MD to complete Golden[employer]. Signature page placed on patient's chart for MD signature. [id number] initiated [facility] Pt will require a pre-cert/LOC. SW/CM will follow up for choices. Referral sent to [facility] which is the sister SNF for [facility] KAREN. CM will continue to follow Breanna VALLEJO, RN Inpatient Manager Of Human Resources 7T/7W Cell [phone] Desk [phone] Normal [facility] MAGNESIUMon 01-28-2025 Interpretation and review of laboratory results Normal [facility] Magnesium [Mass/Vol] 1.9 mg/dL 1.9 - 2 .7 mg/dL [facility] Magnesium [Mass/Vol] 1.9 mg/dL Normal 1.9-2.7 [facility] Comment on above: Performed By: #### M RODRIGUEZ Olivas8 ####[facility] [id number] [place], MANUAL DIFF AND MORPHon 01-08 Acanthocytes [...] By: #### C MD ELLEIFF ####[facility] [id number] [place], CARLOS CELLS Few Normal [facility] Comment on above: Performed By: ###FREDERICK BRUNSON ####[facility] [id number] [place], CELLS COUNTED TOTAL # IN BLOOD Normal [facility] Comment on above: Performed By: #### FREDERICK YOUNG ####[facility] [id number] [place], FRAGMENTED RBC Few Normal [facility] Comment on above: Performed By: #### FREDERICK YOUNG ####[facility] [id number] [place], HYPOCHROMASIA Moderate Normal [facility] Comment on above: Performed By: ###FREDERICK BRUNSON ####[facility] [id number] [place], MICROCYTOSIS Slight Normal [facility] Comment on above: Performed By: #### FREDERICK YOUNG ####S PATHOLOGY [id number] [place], OVALOCYTES Few Normal [facility] Comment on above: Performed By: #### FREDERICK YOUNG ####S PATHOLOGY [id number] [place], No Panel Informationon 01-28 [facility] PROTHROMBIN TIME AND INRon 0 01-28-2025 INR Coag (PPP) [Relative time] 1.05 {INR} 0.90 - 1.10 [facility] Interpretation and review of laboratory results Normal [facility] PT Coag (PPP) [Time] 11.8 s [facility] INR Coag (PPP) [Relative time] 1.05 {INR} Normal 0.90-1.10 [facility] Comment on above: Performed By: ###DAMON Glover #### S PATHOLOGY LABORATORY [address], [place], PT Coag (PPP) [Time] 11.8 s Normal 9.7-12.9 [facility] Comment on above: Performed By: ###DAMON Glover #### S PATHOLOGY LABORATORY [address] [place], [phone] Progress Noteson 01-28-2025 Cigarette Packing Machine Operator Authentication Interface Message Text 1200- offered patient to get up and walk and to get into chair. Patient refused. Patient family insisting patient get up and move and walk. Attempted this with patient, patient refused at this time. Patient educated importance of movement and getting up, patient also educated on NPO status. Patient aware and agreeable to NPO. Normal [facility] Cigarette Packing Machine Operator Authentication Interface Message Text Division of Pulmonary, [...] Pulmonary, Critical Care, AND Sleep Medicine [facility] PIN [id number] [1] Social History Tobacco Use Smoking Status Not on file Smokeless Tobacco Not on file Normal [facility] BASIC METABOLIC PANELon 08-2 Anion gap [Moles/Vol] 13 mmol/L Normal 10-20 [facility] Comment on above: Performed By: #### Aruna Olivas CH8 #### S PATHOLOGY LABORATORY [address] [place] [address], Calcium [Mass/Vol] 7.8 mg/dL Low 8.6-10.3 [facility] Comment on above: Performed By: #### DAMON Hamilton #### [facility] [address] [place] [address], Chloride [Moles/Vol] 112 mmol/L High 98-107 [facility] Comment on above: Performed By: #### Aruna Olivas CH8 #### S PATHOLOGY LABORATORY [address] [place] [address], CO2 [Moles/Vol] 23 mmol/L Normal 21-31 [facility] Comment on above: Performed By: #### Aruna Olivas, CH8 #### S PATHOLOGY LABORATORY [address] [place] [address], Creatinine [Mass/Vol] 0.54 mg/dL Low 0.60-1.20 [facility] Comment on above: Performed By: #### Aruna Olivas, RODRIGUEZ8 #### [facility] PATHOLOGY LABORATORY [address], [place], ESTIMATED GFR (CKD-EPI) 92 mL/min/1.73sqm Normal >=60 [facility] Comment on above: Result Comment: 2020 [...] Inclusion of Race in Diagnosing Kidney Disease. Chinese Journal of Kidney Diseases 202;79(2):268-88.e1. 2. N Engl J Med 2020 Vol. 385 Issue 19 Pages 9090-3766 Performed By: #### Aruna Olivas CH8 #### S PATHOLOGY LABORATORY [address], [place], Glucose [Mass/Vol] 68 mg/dL Low 74-109 [facility] Comment on above: Performed By: #### Aruna Olivas CH8 #### S PATHOLOGY LABORATORY [address] [place] [address], Potassium [Moles/Vol] 3.2 mmol/L Low 3.5-5.0 [facility] Comment on above: Performed By: #### Aruna Olivas CH8 #### S PATHOLOGY LABORATORY [address], [place], Sodium [Moles/Vol] 145 mmol/L Normal 136-145 [facility] Comment on above: Performed By: #### Aruna Olivas CH8 #### S PATHOLOGY LABORATORY [address], [place], Urea nitrogen [Mass/Vol] 5 mg/dL Low 7-25 [facility] Comment on above: Performed By: #### M G, CH8 #### [facility] [address] [place] [address], [id number] Basic metabolic 2000 panelon 01-27-2025 Anion gap [...] Inclusion of Race in Diagnosing Kidney Disease. Chinese Journal of Kidney Diseases 202;79(2):268-88.e1. 2. N Engl J Med 1 Vol. 385 Issue 19 Pages 2406-7870 Glucose [Mass/Vol] 68 mg/dL Low 74 - [...] (Bld) [#/Vol] 0.04 10*3/uL Normal 0.00-0.20 [facility] Comment on above: Performed By: #### Aruna Olivas, CH8 #### [facility] PATHOLOGY LABORATORY [address] [place] [address], Basophils/100 WBC (Bld) 0.5 % Normal <=1.9 [facility] Comment on above: Performed By: #### Aruna Olivas, CH8 #### [facility] PATHOLOGY LABORATORY [address] [place] [address], Eosinophils (Bld) [#/Vol] 0.10 10*3/uL Normal 0.00-0.70 [facility] Comment on above: Performed By: #### Aruna Olivas, CH8 #### [facility] PATHOLOGY LABOR[facility]ORY [address] [place] [address], Eosinophils/100 WBC (Bld) 1.3 % Normal 0.1-4.0 [facility] Comment on above: Performed By: #### Aruna Olivas, CH8 #### [facility] PATHOLOGY LABORATORY [address] [place] [address], Erythrocyte distribution width (RBC) [Ratio] 20.0 % High 11.5-14.5 [facility] Comment on above: Performed By: #### Aruna Olivas, CH8 #### [facility] PATHOLOGY LABORATORY [address] [place] [address], Hematocrit (Bld) [Volume fraction] 24.6 % Low 36.0-46.0 [facility] Comment on above: Performed By: #### Aruna Olivas, CH8 #### [facility] PATH[facility] LABOR[facility]ORY [address], [place], Hemoglobin (Bld) [Mass/Vol] 7.9 g/dL Low 12.0-15.0 [facility] Comment on above: Performed By: #### Aruna Olivas, CH8 #### [facility] PATH[facility] LABORATORY [address] [place] [address], Lymphocytes (Bld) [#/Vol] 0.83 10*3/uL Low 1.00-4.80 [facility] Comment on above: Performed By: #### Aruna Olivas, CH8 #### [facility] PATHOLOGY LABORATORY [address], [place], Lymphocytes/100 WBC (Bld) 10.8 % Low 24.0-44.0 [facility] Comment on above: Performed By: #### Aruna Olivas, CH8 #### [facility] PATH[facility]Y LABORATORY [address], [place], MCH (RBC) [Entitic mass] 23.2 pg Low 26.0-34.0 [facility] Comment on above: Performed By: #### Aruna Olivas, CH8 #### [facility] PATHOLOGY LABORATORY [address], [place], MCHC (RBC) [Mass/Vol] 32.1 g/dL Normal 32.0-35.9 [facility] Comment on above: Performed By: #### Aruna Olivas, CH8 #### [facility] PATHOLOG[facility] LABORATORY [address], [place], MCV (RBC) [Entitic vol] 72 fL Low 80-100 [facility] Comment on above: Performed By: #### Aruna Olivas, CH8 #### [facility] PATHOLOGY LABORATORY [address], [place], Monocytes (Bld) [#/Vol] 0.92 10*3/uL Normal 0.20-1.00 [facility] Comment on above: Performed By: #### Aruna Olivas, CH8 #### [facility] PATH[facility] LABOR[facility] [address], [place], Monocytes/100 WBC (Bld) 11.9 % High 2.0-11.0 [facility] Comment on above: Performed By: #### Aruna Olivas, CH8 #### [facility] PATH[facility]OR[facility] [address], [place], Neutrophils (Bld) [#/Vol] 5.82 10*3/uL Normal 1.50-8.00 [facility] Comment on above: Performed By: #### Aruna Olivas, CH8 #### [facility] PATH[facility] LABOR[facility] [address], [place], Neutrophils/100 WBC (Bld) 75.5 % Normal 31.0-76.0 [facility] Comment on above: Performed By: #### Aruna Deisy, CH8 #### [facility] PATHOLOG[facility] LABORATORY [address] [place] [address], Platelet mean volume (Bld) [Entitic vol] 8.6 fL Normal 7.5-11.2 [facility] Comment on above: Performed By: #### Aruna Olivas, CH8 #### [facility] PATH[facility] LABOR[facility] [address] [place] [address], Platelets (Bld) [#/Vol] 189 10*3/uL Normal 150-400 [facility] Comment on above: Performed By: #### Aruna Olivas, CH8 #### [facility] PATH[facility] LABOR[facility]ORY [address] [place] [address], RBC (Bld) [#/Vol] 3.40 10*6/uL Low 4.00-5.20 [facility] Comment on above: Performed By: #### Aruna Olivas, 8 #### [facility] PATHOLOG[facility] LABORATORY [address] [place] [address], WBC (Bld) [#/Vol] 7.7 10*3/uL Normal 4.5-11.5 [facility] Comment on above: Performed By: #### Aruna Olivas, 8 #### [facility] PATHOLOGY LABORATORY [address] [place] [address], Care Plan Noteon 01-27-2025 Cigarette Packing Machine Operator Authentication Interface Message Text I tried at least thrice to reach her son to update on her colonoscopy but with no avail. Normal [facility] H AND Luis Felipe 01-27-2025 Cigarette Packing Machine Operator Authentication Interface Message Text Ely Hurtado [id number] 01/27/2025 HISTORY AND PHYSICAL: Patient's history with [...] Aruna Olivas CH8 #### S PATHOLOGY LABORATORY [address] [place] [address], MANUAL DIFF AND MORPHon 01-08 Cells Counted Total (Bld) [#] [facility] Microcytes Ql (Bld) Slight [facility] Ovalocytes LM Ql (Bld) Few [facility] RBC.hypochromic/100 RBC Auto (Bld) Moderate [facility] Schistocytes LM Ql (Bld) Few [facility] CELLS COUNTED TOTAL # IN BLOOD Normal [facility] Comment on above: Performed By: #### Aruna Olivas CH8 #### S PATHOLOGY LABORATORY [address] [place] [address], FRAGMENTED RBC Few Normal [facility] Comment on above: Performed By: #### Aruna Olivas CH8 #### S PATHOLOGY LABORATORY [address], [place], HYPOCHROMASIA Moderate Normal [facility] Comment on above: Performed By: #### M G, CH8 #### S PATHOLOGY LABORATORY [address], [place], MICROCYTOSIS Slight Normal [facility] Comment on above: Performed By: #### M G, CH8 #### S PATHOLOGY LABORATORY [address], [place], OVALOCYTES Few Normal [facility] Comment on above: Performed By: #### M G, CH8 #### [facility] PATH[facility] LABORATORY [address], [place], No Panel InformationOrdered By: Letty Arevalo on 01-27-2025 [facility] No Panel Informationon 01-27 [facility] OP Noteon 01-27-2025 Cigarette Packing Machine Operator Authentication Interface Message Text Ely Hurtado 84 year old Surgical Contact Serial Number: [id number] Location: ENDO ADD ON PROCEDURE Date: 01/27/2025 Mounter: Juan Parikh MD Attending:Adrien Caraballo MD Procedure(s): [...] transillumination of right lower quadrant. Prep was [facility] Bowel Prep Right Colon: Entire colon seen well, [facility] Bowel Prep Transverse Colon: Entire colon seen well, [facility] Bowel Prep Left Colon:Entire colon seen well [...] + internal hemorrhoids Rectal bleeding (Primary Diagnosis) [744771] Unspecified right bundle-branch block [0621716] Abnormal electrocardiogram (ECG) (EKG) [[id number]] Abnormal electrocardiogram (ECG) (EKG) [[id number]] ANATOMIC SPECIMEN: Yes SPECIMEN: ID Type Source [...] Caraballo MD Division of Gastroenterology AND Hepatology [facility] Normal [facility] Patient Instructionson 01-27 Cigarette Packing Machine Operator Authentication Interface Message Text COLONOSCOPY COLYTE SPLIT PREP DO NOT FOLLOW INSTRUCTIONS ON THE COLYTE BOTTLE Please call [phone] to schedule your procedure WHAT IS A [...] medicati (more content not included)... Normal [facility] Progress Noteson 01-27-2025 Cigarette Packing Machine Operator Authentication Interface Message Text Division of Pulmonary, [...] Pulmonary, Critical Care, AND Sleep Medicine [facility] PIN [id number] [1] Social History Tobacco Use Smoking Status Not on file Smokeless Tobacco Not on file Normal [facility] BASIC METABOLIC PANELon 08-2 -2024 Anion gap [Moles/Vol] 12 mmol/L Normal 10-20 [facility] Comment on above: Performed By: #### Aruna Olivas, CH8 #### S PATHOLOGY LABORATORY [address] [place] [address], Calcium [Mass/Vol] 7.9 mg/dL Low 8.6-10.3 [facility] Comment on above: Performed By: #### Aruna Olivas, CH8 #### S PATHOLOGY LABORATORY [address] [place] [address], Chloride [Moles/Vol] 110 mmol/L High 98-107 [facility] Comment on above: Performed By: #### Aruna Olivas, CH8 #### S PATHOLOGY LABORATORY [address] [place] [address], CO2 [Moles/Vol] 23 mmol/L Normal 21-31 [facility] Comment on above: Performed By: #### Aruna Olivas, CH8 #### S PATHOLOGY LABORATORY [address] [place] [address], Creatinine [Mass/Vol] 0.58 mg/dL Low 0.60-1.20 [facility] Comment on above: Performed By: #### Aruna Olivas, CH8 #### S PATHOLOGY LABORATORY [address] [place] [address], ESTIMATED GFR (CKD-EPI) 90 mL/min/1.73sqm Normal >=60 [facility] Comment on above: Result Comment: 2020 [...] Inclusion of Race in Diagnosing Kidney Disease. Chinese Journal of Kidney Diseases 2021;79(2):268-88.e1. 2. N Engl J Med 1 Vol. 385 Issue 19 Pages 1758-3696 Performed By: #### Aruna Olivas, CH8 #### S PATHOLOGY LABORATORY [address] [place] [address], Glucose [Mass/Vol] 85 mg/dL Normal 74-109 [facility] Comment on above: Performed By: #### Aruna Olivas, CH8 #### S PATHOLOGY LABORATORY [address] [place] [address], Potassium [Moles/Vol] 3.7 mmol/L Normal 3.5-5.0 [facility] Comment on above: Performed By: #### Aruna Olivas, CH8 #### S PATHOLOGY LABORATORY [address] [place] [address], Sodium [Moles/Vol] 141 mmol/L Normal 136-145 [facility] Comment on above: Performed By: #### Aruna Olivas, CH8 #### S PATHOLOGY LABORATORY [address] [place] [address], Urea nitrogen [Mass/Vol] 9 mg/dL Normal 7-25 [facility] Comment on above: Performed By: #### Aruna Olivas, CH8 #### S PATHOLOGY LABORATORY [address] [place] [address], Basic metabolic 2000 panelon 01-26-2025 Anion gap [...] Inclusion of Race in Diagnosing Kidney Disease. Chinese Journal of Kidney Diseases 2021;79(2):268-88.e1. 2. N Engl J Med 2020 Vol. 385 Issue 19 Pages 3719-6996 Glucose [Mass/Vol] 85 mg/dL 74 - 109 [...] Olivas CH8 #### S PATHOLOGY LABORATORY [address], [place], Basophils/100 WBC (Bld) 0.9 % Normal <=1.9 [facility] Comment on above: Performed By: #### Aruna Olivas CH8 #### S PATHOLOGY LABORATORY [address], [place], Eosinophils (Bld) [#/Vol] 0.05 10*3/uL Normal 0.00-0.70 [facility] Comment on above: Performed By: #### Aruna Olivas, CH8 #### [facility] PATH[facility] [address] [place] [address], Eosinophils/100 WBC (Bld) 0.7 % Normal 0.1-4.0 [facility] Comment on above: Performed By: #### Aruna Olivas, CH8 #### [facility] PATH[facility] [address] [place] [address], Erythrocyte distribution width (RBC) [Ratio] 19.8 % High 11.5-14.5 [facility] Comment on above: Performed By: #### Aruna Olivas, CH8 #### [facility] PATH[facility] [address] [place] [address], Hematocrit (Bld) [Volume fraction] 26.2 % Low 36.0-46.0 [facility] Comment on above: Performed By: #### Aruna Olivas, CH8 #### [facility] [address] [place] [address], Hemoglobin (Bld) [Mass/Vol] 8.4 g/dL Low 12.0-15.0 [facility] Comment on above: Performed By: #### Aruna Olivas, CH8 #### [facility] [address] [place] [address], Lymphocytes (Bld) [#/Vol] 0.78 10*3/uL Low 1.00-4.80 [facility] Comment on above: Performed By: #### Aruna Olivas, CH8 #### [facility] [address] [place] [address], Lymphocytes/100 WBC (Bld) 9.9 % Low 24.0-44.0 [facility] Comment on above: Performed By: #### Aruna Olivas, CH8 #### [facility] PATH[facility] [address] [place] [address], MCH (RBC) [Entitic mass] 23.0 pg Low 26.0-34.0 [facility] Comment on above: Performed By: #### Aruna Olivas, CH8 #### [facility] [address] [place] [address], MCHC (RBC) [Mass/Vol] 32.1 g/dL Normal 32.0-35.9 [facility] Comment on above: Performed By: #### Aruna Olivas, CH8 #### [facility] [address] [place] [address], MCV (RBC) [Entitic vol] 72 fL Low 80-100 [facility] Comment on above: Performed By: #### Aruna Olivas, CH8 #### [facility] [address] [place] [address], Monocytes (Bld) [#/Vol] 0.79 10*3/uL Normal 0.20-1.00 [facility] Comment on above: Performed By: #### Aruna Olivas, CH8 #### [facility] [address] [place] [address], Monocytes/100 WBC (Bld) 10.0 % Normal 2.0-11.0 [facility] Comment on above: Performed By: #### Aruna Olivas, CH8 #### [facility] [address] [place] [address], Neutrophils (Bld) [#/Vol] 6.22 10*3/uL Normal 1.50-8.00 [facility] Comment on above: Performed By: #### Aruna Olivas, CH8 #### [facility] [address] [place] [address], Neutrophils/100 WBC (Bld) 78.6 % High 31.0-76.0 [facility] Comment on above: Performed By: #### Aruna Olivas, CH8 #### [facility] [address] [place] [address], Platelet mean volume (Bld) [Entitic vol] 8.3 fL Normal 7.5-11.2 [facility] Comment on above: Performed By: #### Aruna Olivas, CH8 #### [facility] [address] [place] [address], Platelets (Bld) [#/Vol] 197 10*3/uL Normal 150-400 [facility] Comment on above: Performed By: #### Aruna Olivas, CH8 #### [facility] [address], [place], RBC (Bld) [#/Vol] 3.65 10*6/uL Low 4.00-5.20 [facility] Comment on above: Performed By: #### Aruna Olivas, CH8 #### [facility] [address], [place], WBC (Bld) [#/Vol] 7.9 10*3/uL Normal 4.5-11.5 [facility] Comment on above: Performed By: #### Aruna Olivas, CH8 #### [facility] [address], [place], Basophils (Bld) [#/Vol] 0.07 10*3/uL Normal 0.00-0.20 [facility] Comment on above: Performed By: #### Aruna Olivas, CH8 #### [facility] [address], [place], Basophils/100 WBC (Bld) 0.8 % Normal <=1.9 [facility] Comment on above: Performed By: #### Aruna Olivas, CH8 #### [facility] [address], [place], Eosinophils (Bld) [#/Vol] 0.13 10*3/uL Normal 0.00-0.70 [facility] Comment on above: Performed By: #### Aruna Olivas, CH8 #### [facility] [address], [place], Eosinophils/100 WBC (Bld) 1.4 % Normal 0.1-4.0 [facility] Comment on above: Performed By: #### Aruna Olivas, CH8 #### [facility] [address], [place], Erythrocyte distribution width (RBC) [Ratio] 20.0 % High 11.5-14.5 [facility] Comment on above: Performed By: #### Aruna Olivas, CH8 #### [facility] [address], [place], Hematocrit (Bld) [Volume fraction] 26.8 % Low 36.0-46.0 [facility] Comment on above: Performed By: #### Aruna Olivas, CH8 #### [facility] [address] [place] [address], Hemoglobin (Bld) [Mass/Vol] 8.7 g/dL Low 12.0-15.0 [facility] Comment on above: Performed By: #### Aruna Olivas, CH8 #### [facility] [address] [place] [address], Lymphocytes (Bld) [#/Vol] 1.32 10*3/uL Normal 1.00-4.80 [facility] Comment on above: Performed By: #### Aruna Olivas, CH8 #### [facility] [address] [place] [address], Lymphocytes/100 WBC (Bld) 14.8 % Low 24.0-44.0 [facility] Comment on above: Performed By: #### Aruna Olivas, CH8 #### [facility] [address] [place] [address], MCH (RBC) [Entitic mass] 23.7 pg Low 26.0-34.0 [facility] Comment on above: Performed By: #### Aruna Olivas, CH8 #### [facility] [facility] [address] [place] [address], MCHC (RBC) [Mass/Vol] 32.5 g/dL Normal 32.0-35.9 [facility] Comment on above: Performed By: #### Aruna Olivas, CH8 #### [facility] [address] [place] [address], MCV (RBC) [Entitic vol] 73 fL Low 80-100 [facility] Comment on above: Performed By: #### Aruna Olivas, CH8 #### [facility] [address] [place] [address], Monocytes (Bld) [#/Vol] 1.10 10*3/uL High 0.20-1.00 [facility] Comment on above: Performed By: #### Aruna Olivas, CH8 #### [facility] [address] [place] [address], Monocytes/100 WBC (Bld) 12.3 % High 2.0-11.0 [facility] Comment on above: Performed By: #### Aruna Olivas, CH8 #### [facility] [address] [place] [address], Neutrophils (Bld) [#/Vol] 6.28 10*3/uL Normal 1.50-8.00 [facility] Comment on above: Performed By: #### Aruna Olivas, CH8 #### [facility] [address] [place] [address], Neutrophils/100 WBC (Bld) 70.7 % Normal 31.0-76.0 [facility] Comment on above: Performed By: #### Aruna Olivas, CH8 #### [facility] [address] [place] [address], Platelet mean volume (Bld) [Entitic vol] 8.1 fL Normal 7.5-11.2 [facility] Comment on above: Performed By: #### Aruna Olivas, CH8 #### [facility] [address] [place] [address], Platelets (Bld) [#/Vol] 189 10*3/uL Normal 150-400 [facility] Comment on above: Performed By: #### Aruna Olivas, CH8 #### [facility] [address] [place] [address], RBC (Bld) [#/Vol] 3.67 10*6/uL Low 4.00-5.20 [facility] Comment on above: Performed By: #### Aruna Olivas, CH8 #### [facility] [address], [place], WBC (Bld) [#/Vol] 8.9 10*3/uL Normal 4.5-11.5 [facility] Comment on above: Performed By: #### Aruna Olivas, CH8 #### [facility] [address] [place] [address], CBC WITH DIFFERENTIALOrdered By: Linda Kang on [...] 11.5 K/uL [facility] 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 Isauro Page MD Patient: Ely Hurtado Location: [place] [address] Reason for Consult: HPI Ely Hurtado is [...] [place] MD, [place] Gastroenterology Fellow. Consult Pager [phone] Discussed with GI attending, Dr. Adrien Caraballo MD Primary team updated yes. Thank you for involving us in the care of this patient. I appreciate the excellent care from the nursing staff, and child support specialist. Dictated using voice recognition software. [...] Hepatology (more content not included)... Normal [facility] MAGNESIUMon 01-26-2025 Interpretation and review of laboratory results Normal [facility] Magnesium [Mass/Vol] 1.9 mg/dL 1.9 - 2 .7 mg/dL [facility] Magnesium [Mass/Vol] 1.9 mg/dL Normal 1.9-2.7 [facility] Comment on above: Performed By: #### Aruna Olivas, CH8 #### [facility] [address] [place] [address], MANUAL DIFF AND MORPHon 01-08 Cells Counted [...] Aruna Olivas, CH8 #### [facility] [address] [place] [address], FRAGMENTED RBC Few Normal [facility] Comment on above: Performed By: #### Aruna Olivas, CH8 #### [facility] [address] [place] [address], HYPOCHROMASIA Moderate Normal [facility] Comment on above: Performed By: #### Aruna Olivas, CH8 #### [facility] [address] [place] [address], MICROCYTOSIS Slight Normal [facility] Comment on above: Performed By: #### Aruna Olivas, CH8 #### [facility] [address] [place] [address], OVALOCYTES Few Normal [facility] Comment on above: Performed By: #### Aruna Olivas, CH8 #### [facility] [address] [place] [address], POLYCHROMASIA Slight Normal [facility] Comment on above: Performed By: #### Aruna Olivas, CH8 #### [facility] [address] [place] [address], Acanthocytes LM Ql (Bld) Few [facility] Carlos cells LM Ql (Bld) Few [facility] Cells Counted Total (Bld) [#] [facility] Microcytes Ql (Bld) Slight [facility] Ovalocytes LM Ql (Bld) Few [facility] Polychromasia LM Ql (Bld) Slight [facility] RBC.hypochromic/100 RBC Auto (Bld) Moderate [facility] Schistocytes LM Ql (Bld) Few [facility] ACANTHOCYTES Few Normal [facility] Comment on above: Performed By: #### Aruna Olivas, CH8 #### S [facility] [address] [place] [address], CARLOS CELLS Few Normal [facility] Comment on above: Performed By: #### Aruna Olivas, CH8 #### [facility] [address] [place] [address], CELLS COUNTED TOTAL # IN BLOOD Normal [facility] Comment on above: Performed By: #### Aruna Olivas, CH8 #### S [facility] [address] [place] [address], FRAGMENTED RBC Few Normal [facility] Comment on above: Performed By: #### Aruna Olivas, CH8 #### [facility] [address] [place] [address], HYPOCHROMASIA Moderate Normal [facility] Comment on above: Performed By: #### M G, CH8 #### S [facility] [address], [place], MICROCYTOSIS Slight Normal [facility] Comment on above: Performed By: #### M G, CH8 #### [facility] [address], [place], OVALOCYTES Few Normal [facility] Comment on above: Performed By: #### M G, CH8 #### [facility] [address], [place], POLYCHROMASIA Slight Normal [facility] Comment on above: Performed By: #### M G, CH8 #### S [facility] [address], [place], No Panel InformationOrdered By: Eliana Kelsey on 01-26-2025 [facility] No Panel InformationOrdered By: Linda Kang on 01-26-2025 [facility] No Panel Informationon 01-26 [facility] Progress Noteson 01-26-2025 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 Presented to [facility]. Hgb decreased to 6.2. Received 2U PRBCs. [...] Pulmonary, Critical Care, AND Sleep Medicine [facility] [id number] [1] Social History Tobacco Use Smoking Status Not on file Smokeless Tobacco Not on file Normal [facility] Absolute lymphocyte countOrd ered By: Jennie Navarro on 01-25-2025 Lymphocytes Auto (Unsp spec) [#/Vol] 1.53 10*3/uL 0.83-4.51 [facility] Absolute neutrophil countOrd ered By: Jennie Navarro on 01-25-2025 Neutrophils (Bld) [#/Vol] 5.2 10*3/uL 2.0-7.7 [facility] Automated lymphocyte count a s percentage of total leukocytesOrdered By: Jennie Navarro on 01-25-2025 Lymphocytes/100 WBC Auto (Unsp spec) 19.2 % 19-41 [facility] BASIC METABOLIC PANELon 01-07 Anion gap [Moles/Vol] 12 mmol/L Normal 10-20 [facility] Comment on above: Performed By: #### C H8, MG, HEPATIC #### [facility] [address] [place] [address], Calcium [Mass/Vol] 8.3 mg/dL Low 8.6-10.3 [facility] Comment on above: Performed By: #### C H8, MG, HEPATIC #### [facility] [address] [place] [address], Chloride [Moles/Vol] 108 mmol/L High 98-107 [facility] Comment on above: Performed By: #### C H8, MG, HEPATIC #### [facility] [address] [place] [address], CO2 [Moles/Vol] 26 mmol/L Normal 21-31 [facility] Comment on above: Performed By: #### C H8, MG, HEPATIC #### [facility] [address] [place] [address], Creatinine [Mass/Vol] 0.61 mg/dL Normal 0.60-1.20 [facility] Comment on above: Performed By: #### Raquel Gilliland MG, HEPATIC #### [facility] [address] [place] [address], ESTIMATED GFR (CKD-EPI) 89 mL/min/1.73sqm Normal >=60 [...] Inclusion of Race in Diagnosing Kidney Disease. Chinese Journal of Kidney Diseases 2021;79(2):268-88.e1. 2. N Engl J Med 1 Vol. 385 Issue 19 Pages 5327-7241 Performed By: #### Raquel Gilliland MG, HEPATIC #### [facility] [address] [place] [address], Glucose [Mass/Vol] 98 mg/dL Normal 74-109 [facility] Comment on above: Performed By: #### Raquel Gilliland MG, HEPATIC #### [facility] [address] [place] [address], Potassium [Moles/Vol] 3.8 mmol/L Normal 3.5-5.0 [facility] Comment on above: Performed By: #### Raquel H8 MG, HEPATIC #### [facility] [address] [place] [address], Sodium [Moles/Vol] 142 mmol/L Normal 136-145 [facility] Comment on above: Performed By: #### Raquel H8 MG, HEPATIC #### [facility] [address] [place] [address], Urea nitrogen [Mass/Vol] 13 mg/dL Normal 7-25 [facility] Comment on above: Performed By: #### Raquel H8 MG, HEPATIC #### [facility] [address] [place] [address] [place], [address] Basic metabolic 2000 panelon 01-25-2025 Anion gap [...] CKD-EPI (S/P/Bld) [Vol rate/Area] 89 - PINF [facility] Comment on above: 2020 CKD EPI [...] Inclusion of Race in Diagnosing Kidney Disease. Chinese Journal of Kidney Diseases 2021;79(2):268-88.e1. 2. N Engl J Med 1 Vol. 385 Issue 19 Pages 6004-8813 Glucose [Mass/Vol] 98 mg/dL 74 - 109 mg/dL [facility] Potassium [Moles/Vol] 3.8 mmol/L 3.5 - 5.0 mmol/L [facility] Sodium [Moles/Vol] 142 mmol/L 136 - 145 mmol/L [facility] Urea nitrogen [Mass/Vol] 13 mg/dL 7 - 25 mg/dL [facility] Basophil percentageOrdered B y: Jennie Navarro on 01-25-2025 Basophils/100 WBC (Bld) 0.5 % 0-1 [facility] CBC W/Diff, Automatedon 01-07 Hemoglobin (Bld) [Mass/Vol] 6.0 g/dL Invalid Interpretation Code 12.0-15.0 [facility] Comment on above: Result Comment: CRIT ICAL VALUE CALLED TO TEDDY 01/25/25 4107 Kam Guillermo. RESULTS READ BACK BY SAME. Performed By: #### L 500.4100, L501.5200, L500.4050 #### [facility] [address] [place], [address] Absolute Lymph 1.53 X10 3/uL Normal 0.83-4.51 [facility] Comment on above: Performed By: #### L 500.4100, L501.5200, [id number] #### [facility] [address] [place], [address] Absolute Neut 5.2 X10 3/uL Normal 2.0-7.7 [facility] Comment on above: Performed By: #### L 500.4100, L501.5200, [id number] #### [facility] [address] [place], [address] Basophils/100 WBC (Bld) 0.5 % Normal 0-1 [facility] Comment on above: Performed By: #### L 500.4100, [id number], [id number] #### [facility] [address] [place], [address] Eosinophils/100 WBC (Bld) 1.0 % Normal 0-5 [facility] Comment on above: Performed By: #### L 500.4100, L501.5200, [id number] #### [facility] [address] [place], [address] Erythrocyte distribution width (RBC) [Ratio] 15.8 % High 11.6-14.6 [facility] Comment on above: Performed By: #### L 500.4100, L501.5200, [id number] #### [facility] [address] [place], [address] Hematocrit (Bld) [Volume fraction] 20.9 % Low 37-47 [facility] Comment on above: Performed By: #### L 500.4100, L501.5200, [id number] #### [facility] [address] [place], [address] IG% 0.300 Normal 0.0-0.9 [facility] Comment on above: Result Comment: IG% - Immature Granulocytes (promyelocytes, myelocytes and metamyelocytes) > 1% indicates that a LEFT SHIFT is Present. Performed By: #### L 500.4100, L501.5200, L500.4050 #### [facility] [address] [place], [address] Lymphocytes/100 WBC (Bld) 19.2 % Normal 19-41 [facility] Comment on above: Performed By: #### L 500.4100, [id number], [id number] #### [facility] [address] [place], [address] MCH (RBC) [Entitic mass] 20.9 pg Low 27.0-32.0 [facility] Comment on above: Performed By: #### L 500.4100, L501.5200, L500.4050 #### [facility] [address] [place], [address] MCHC (RBC) [Mass/Vol] 28.7 g/dL Low 32-36 [facility] Comment on above: Performed By: #### L 500.4100, L501.5200, [id number] #### [facility] [address] [place], [address] MCV (RBC) [Entitic vol] 72.8 fL Low 81-99 [facility] Comment on above: Performed By: #### L 500.4100, L501.5200, [id number] #### [facility] [address] [place], [address] Monocytes/100 WBC (Bld) 14.1 % High 0-10 [facility] Comment on above: Performed By: #### L 500.4100, L501.5200, [id number] #### [facility] [address] [place], [address] Neutrophils/100 WBC (Bld) 64.9 % Normal 47-70 [facility] Comment on above: Performed By: #### L 500.4100, L501.5200, [id number] #### [facility] [address] [place], [address] Nucleated RBC (Bld) [#/Vol] 0 10*3/uL Normal 0-5 [facility] Comment on above: Performed By: #### L 500.4100, L501.5200, L500.4050 #### [facility] [address] [place], [address] Platelet mean volume (Bld) [Entitic vol] 10.6 fL Normal 6.2-12.0 [facility] Comment on above: Performed By: #### L 500.4100, L501.5200, L500.4050 #### [facility] [address] [place], [address] Platelets (Bld) [#/Vol] 232 10*3/uL Normal 150-450 [facility] Comment on above: Performed By: #### L 500.4100, L501.5200, L500.4050 #### [facility] [address] [place], [address] RBC (Bld) [#/Vol] 2.87 10*6/uL Low 4.2-5.4 [facility] Comment on above: Performed By: #### L 500.4100, L501.5200, L500.4050 #### [facility] [address] [place], [address] RDW SD 41.3 fl Normal 35.1-43.9 [facility] Comment on above: Performed By: #### L 500.4100, L501.5200, [id number] #### [facility] [address] [place], [address] WBC (Bld) [#/Vol] 8.0 10*3/uL Normal 4.4-11.0 [facility] Comment on above: Performed By: #### L 500.4100, L501.5200, L500.4050 #### [facility] [address] [place], [address] CBC WITH DIFFERENTIALOrdered By: Terri Simon on [...] RBC (Bld) [#/Vol] 3.86 10*6/uL Low [facility] WBC (Bld) [#/Vol] 7.8 10*3/uL 4.5 - 11.5 K/uL [facility] CBC WITH DIFFERENTIALon 01-07 Basophils (Bld) [#/Vol] 0.08 10*3/uL Normal 0.00-0.20 [facility] Comment on above: Performed By: #### Aruna Olivas, CH8 #### S PATH[facility]Y LABORATORY [address], [place], Basophils/100 WBC (Bld) 1.1 % Normal <=1.9 [facility] Comment on above: Performed By: #### Aruna Olivas, CH8 #### S [facility] [address], [place], Eosinophils (Bld) [#/Vol] 0.06 10*3/uL Normal 0.00-0.70 [facility] Comment on above: Performed By: #### Aruna Olivas, CH8 #### [facility] [address], [place], Eosinophils/100 WBC (Bld) 0.8 % Normal 0.1-4.0 [facility] Comment on above: Performed By: #### Aruna Olivas, CH8 #### [facility] [address], [place], Erythrocyte distribution width (RBC) [Ratio] 19.7 % High 11.5-14.5 [facility] Comment on above: Performed By: #### Aruna Olivas, CH8 #### [facility] [address] [place] [address], Hematocrit (Bld) [Volume fraction] 28.2 % Low 36.0-46.0 [facility] Comment on above: Performed By: #### Aruna Olivas, CH8 #### [facility] [address] [place] [address], Hemoglobin (Bld) [Mass/Vol] 9.0 g/dL Low 12.0-15.0 [facility] Comment on above: Performed By: #### Aruna Olivas, CH8 #### [facility] [address] [place] [address], Lymphocytes (Bld) [#/Vol] 1.20 10*3/uL Normal 1.00-4.80 [facility] Comment on above: Performed By: #### Aruna Olivas, CH8 #### [facility] [address] [place] [address], Lymphocytes/100 WBC (Bld) 15.4 % Low 24.0-44.0 [facility] Comment on above: Performed By: #### Aruna Olivas, CH8 #### [facility] [address] [place] [address], MCH (RBC) [Entitic mass] 23.4 pg Low 26.0-34.0 [facility] Comment on above: Performed By: #### Aruna Olivas, CH8 #### [facility] [address] [place] [address], MCHC (RBC) [Mass/Vol] 32.1 g/dL Normal 32.0-35.9 [facility] Comment on above: Performed By: #### Aruna Olivas, CH8 #### [facility] [address] [place] [address], MCV (RBC) [Entitic vol] 73 fL Low 80-100 [facility] Comment on above: Performed By: #### Aruna Olivas, CH8 #### [facility] [address] [place] [address], Monocytes (Bld) [#/Vol] 0.88 10*3/uL Normal 0.20-1.00 [facility] Comment on above: Performed By: #### Aruna Olivas, CH8 #### [facility] [address] [place] [address], Monocytes/100 WBC (Bld) 11.4 % High 2.0-11.0 [facility] Comment on above: Performed By: #### Aruna Olivas, CH8 #### [facility] [address] [place] [address], Neutrophils (Bld) [#/Vol] 5.53 10*3/uL Normal 1.50-8.00 [facility] Comment on above: Performed By: ###Roger Olivas, CH8 #### [facility] [address] [place] [address], Neutrophils/100 WBC (Bld) 71.3 % Normal 31.0-76.0 [facility] Comment on above: Performed By: ###Roger Olivas, CH8 #### [facility] [address] [place] [address], Platelet mean volume (Bld) [Entitic vol] 8.0 fL Normal 7.5-11.2 [facility] Comment on above: Performed By: ###Roger Olivas, CH8 #### [facility] [address] [place] [address], Platelets (Bld) [#/Vol] 189 10*3/uL Normal 150-400 [facility] Comment on above: Performed By: #### Aruna Olivas, CH8 #### [facility] [address] [place] [address], RBC (Bld) [#/Vol] 3.86 10*6/uL Low 4.00-5.20 [facility] Comment on above: Performed By: ###Roger Olivas, CH8 #### [facility] [address] [place] [address], WBC (Bld) [#/Vol] 7.8 10*3/uL Normal 4.5-11.5 [facility] Comment on above: Performed By: #### Aruna Olivas, CH8 #### [facility] [address] [place], [address] CBC panel Auto (Bld)on 01-25 Erythrocyte distribution width (RBC) [Ratio] 19.8 % High 11.5 - 14.5 % [facility] Hematocrit (Bld) [Volume fraction] 29.7 % Low 36.0 - 46.0 % [facility] Hemoglobin (Bld) [Mass/Vol] 9.8 g/dL Low 12.0 - 15.0 g/dL [facility] Interpretation and review of laboratory results Abnormal [facility] MCH (RBC) [Entitic mass] 23.8 pg Low 26.0 - 34.0 pg [facility] MCHC (RBC) [Mass/Vol] 33 g/dL 32.0 - 35.9 g/dL [facility] MCV (RBC) [Entitic vol] 72 fL Low 80 - 100 fL [facility] Platelet mean volume (Bld) [Entitic vol] 8.5 fL 7.5 - 11.2 fL [facility] Platelets (Bld) [#/Vol] 221 10*3/uL 150 - 400 K/uL [facility] RBC (Bld) [#/Vol] 4.11 10*6/uL [facility] WBC (Bld) [#/Vol] 10.2 10*3/uL 4.5 - 11.5 K/uL [facility] CBC-Complete Blood Cnt No Di ffon 01-25-2025 HCT Normal 37-47 [facility] Comment on above: Order Comment: 155 Result Comment: [facility] Performed By: #### L 500.4100, L501.5200, L500.4050 #### [facility] Laboratory [address] [place], [address] HGB Normal 12.0-15.0 [facility] Comment on above: Order Comment: 155 Result Comment: [facility] Performed By: #### L 500.4100, L501.5200, L500.4050 #### [facility] Laboratory [address] [place], [address] MCH Normal 27.0-32.0 [facility] Comment on above: Order Comment: 155 Result Comment: [facility] Performed By: #### L 500.4100, L501.5200, L500.4050 #### [facility] Laboratory [address] [place], [address] MCHC Normal 32-36 [facility] Comment on above: Order Comment: 155 Result Comment: [facility] Performed By: #### L 500.4100, L501.5200, L500.4050 #### [facility] Laboratory [address] [place], [address] MCV Normal 81-99 [facility] Comment on above: Order Comment: 155 Result Comment: [facility] Performed By: #### L 500.4100, L501.5200, L500.4050 #### [facility] [address] [place], [address] PLT Normal 150-450 [facility] Comment on above: Order Comment: 155 Result Comment: [facility] Performed By: #### L 500.4100, L501.5200, L500.4050 #### [facility] [address] [place], [address] RBC Normal 4.2-5.4 [facility] Comment on above: Order Comment: 155 Result Comment: ISAAC [facility] Performed By: #### L 500.4100, L501.5200, L500.4050 #### [facility] Laboratory [address] [place], [address] RDW CV Normal 11.6-14.6 [facility] Comment on above: Order Comment: 155 Result Comment: [facility] Performed By: #### L 500.4100, L501.5200, L500.4050 #### [facility] Laboratory [address] [place], [address] RDW SD Normal 35.1-43.9 [facility] Comment on above: Order Comment: 155 Result Comment: [facility] Performed By: #### L 500.4100, L501.5200, L500.4050 #### [facility] Laboratory [address] [place], [address] WBC Normal 4.4-11.0 [facility] Comment on above: Order Comment: 155 Result Comment: [facility] Performed By: #### L 500.4100, L501.5200, L500.4050 #### [facility] Laboratory [address] [place], [address] COMPLETE BLOOD COUNTon 01-25 Erythrocyte distribution width (RBC) [Ratio] 19.8 % High 11.5-14.5 [facility] Comment on above: Performed By: #### Aruna Olivas, CH8 #### S PATHOLOGY LABORATORY [address] [place] [address], Hematocrit (Bld) [Volume fraction] 29.7 % Low 36.0-46.0 [facility] Comment on above: Performed By: #### Aruna Olivas, CH8 #### S PATHOLOGY LABORATORY [address] [place] [address], Hemoglobin (Bld) [Mass/Vol] 9.8 g/dL Low 12.0-15.0 [facility] Comment on above: Performed By: #### Aruna Olivas, CH8 #### S PATHOLOGY LABORATORY [address] [place] [address], MCH (RBC) [Entitic mass] 23.8 pg Low 26.0-34.0 [facility] Comment on above: Performed By: #### Aruna Olivas, CH8 #### [facility] [address], [place], MCHC (RBC) [Mass/Vol] 33.0 g/dL Normal 32.0-35.9 [facility] Comment on above: Performed By: #### Aruna Olivas, CH8 #### [facility] [address], [place], MCV (RBC) [Entitic vol] 72 fL Low 80-100 [facility] Comment on above: Performed By: #### M G, CH8 #### [facility] PATHOLOGY LABORATORY [address], [place], Platelet mean volume (Bld) [Entitic vol] 8.5 fL Normal 7.5-11.2 [facility] Comment on above: Performed By: #### Aruna Olivas, CH8 #### S PATHOLOGY LABORATORY [address], [place], Platelets (Bld) [#/Vol] 221 10*3/uL Normal 150-400 [facility] Comment on above: Performed By: #### Aruna Olivas, CH8 #### [facility] PATHOLOGY [facility]ORATORY [address], [place], RBC (Bld) [#/Vol] 4.11 10*6/uL Normal 4.00-5.20 [facility] Comment on above: Performed By: #### Aruna Olivas, CH8 #### [facility] PATH[facility]Y [facility]OR[facility]ORY [address], [place], WBC (Bld) [#/Vol] 10.2 10*3/uL Normal 4.5-11.5 [facility] Comment on above: Performed By: #### Aruna Olivas, CH8 #### [facility] PATH[facility] [address], [place], CONFIRMATION ABO/RHon 2024 Specimen Expiration Date [id number] [facility] CTA ABDOMEN + PELVIS W/on CTA ABDOMEN [...] Saleh on 01-25-2025 CT DLP 985.85 (mGy.cm) [facility] Work Phone: CT Series Topogram,Topogram,AB D PEL WO,PreMonitoring ,Monitoring,CTA ABD PEL ,70s DELAY [facility] Work Phone: CTDI VOL 0.01 (mGy),0.01 (mGy),6.46 (mGy),0.79 (mGy),2.37 (mGy),6.32 (mGy),6.13 (mGy) [facility] Work Phone: PHANTOM TYPE IEC Body Dosimetry Phantom,IEC Body Dosimetry Phantom,IEC Body Dosimetry Phantom,IEC Body Dosimetry Phantom,IEC Body Dosimetry Phantom,IEC Body Dosimetry Phantom,IEC Body Dosimetry Phantom [facility] Work Phone: [facility] Work Phone: CTA Abdominal vessels and Pe [...] observation (narrative) [facility] 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 P wave axis 16 degrees [facility] P-R Interval 174 ms [facility] Q-T interval 436 ms [facility] Q-T interval corrected 509 ms [facility] QRS axis -40 degrees [facility] QRS duration 102 ms [facility] T wave axis -10 degrees [facility] Eosinophil percentageOrdered By: Jennie Navarro on 01-25-2025 Eosinophils/100 WBC (Bld) 1.0 % 0-5 [facility] Erythrocyte distribution wid th ratioOrdered By: Jennie Navarro on 01-25-2025 Erythrocyte distribution width (RBC) [Ratio] 15.8 % High 11.6-14.6 [facility] Erythrocyte distribution wid th standard deviationOrdered By: Jennie Navarro on 01-25-2025 Erythrocyte distribution width (RBC) [Ratio] 41.3 fl 35.1-43.9 [facility] H AND Luis Felipe 01-25-2025 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 Patient who currently resides at [facility] ([place]) where she was found to have significant bright red blood in her stool following multiple episodes of diarrhea on the morning of 01/24. They were transferred to the [facility] ED later that day for further evaluation. [...] Intake/Output Summary (Last 24 hours) at 01/25/2025 5635 Last data filed at 01/25/2025 1600 Gross [...] and anemia. PROBLEM LIST: Neuro AxOx2 at [facility] per OSH notes. Cardiology -No [...] 140-180 (more content not included)... Normal [facility] HEPATIC FUNCTION PANELon Albumin [Mass/Vol] 3.4 [...] MG, HEPATIC #### [facility] [address], [place], ALK 52 IU/L Normal 34-104 [facility] Comment on above: Performed By: #### Raquel Gilliland MG, HEPATIC #### [facility] [address], [place], ALT [Catalytic activity/Vol] 7 U/L Normal 7-52 [facility] Comment on above: Performed By: #### C H8, MG, HEPATIC #### [facility] [address], [place], AST [Catalytic activity/Vol] 15 U/L Normal 13-39 [facility] Comment on above: Performed By: #### C H8, MG, HEPATIC #### [facility] [address], [place], Bilirubin [Mass/Vol] 2.5 mg/dL High 0.3-1.0 [facility] Comment on above: Performed By: #### C H8, MG, HEPATIC #### [facility] [address], [place], Bilirubin.direct [Mass/Vol] 0.42 mg/dL High 0.03-0.18 [facility] Comment on above: Performed By: #### C H8, MG, HEPATIC #### [facility] PATHOLOGY [facility]ATORY [address], [place], Protein [Mass/Vol] 5.1 g/dL Low 6.0-8.3 [facility] Comment on above: Performed By: #### C H8, MG, HEPATIC #### [facility] PATH[facility] [address], [place], Hematocrit Auto (Bld) [Volum e fraction]Ordered By: Jennie Navarro on 01-25-2025 Hematocrit (Bld) [Volume fraction] 20.9 % Low 37-47 [facility] Hemoglobin measurementOrdere d By: Jennie Navarro on 01-25-2025 Hemoglobin (Bld) [Mass/Vol] 6.0 g/dL Low 12.0-15.0 [facility] Comment on above: CRITICAL VALUE PRINCE D TO [id number]/19/25 0447 Kam Guillermo.RESULTS READ BACK BY SAME. Immature granulocytes/100 WB C Auto (Bld)Ordered By: Jennie Navarro on 01-25-2025 Immature granulocytes/100 WBC (Bld) 0.300 % 0.0-0.9 [facility] Comment on above: IG% - Immature Granu [...] by the Department of Pathology of The [facility]. It has not been cleared or approved by the FDA. This test is used for clinical purposes only. [facility] LACTIC ACIDon 01-25-2025 CR LACT 1.0 mmol/L Normal 0.5-1.6 [facility] Comment on above: Order Comment: This test was developed, and its performance characteristics determined by the Department of Pathology of The [facility]. It has not been cleared or approved by the FDA. This test is used for clinical purposes only. Performed By: #### L ACT #### [facility] [address] [place] [address], [id number] Laboratory - Blood bankon ABO and Rh group Nom (Bld) Blood group O Rh(D) positive [facility] Lactic Acidon 01-25-2025 Lactate [Moles/Vol] 1.3 mmol/L Normal 0.0-2.0 [facility] Comment on above: Performed By: #### L 500.4100, L501.5200, L500.4050 #### [facility] Laboratory [address] [place], [place], [id number] Lactate [Moles/Vol] 2.0 mmol/L Normal 0.0-2.0 [facility] Comment on above: Order Comment: 155 Result Comment: Crit ical Result(s) Called at: 0459 by:??JESSICA HAVEN TO MAKENZIE SPARR Results read back by same. Performed By: #### L 500.4100, L501.5200, L500.4050 #### [facility] Laboratory [address] [place], [place], [id number] Lactic acid measurementOrder ed By: Jennie Navarro on 01-25-2025 Lactate [Moles/Vol] 2.0 mmol/L 0.0-2.0 [facility] Comment on above: Critical Result(s) C alled at: 0459 by: JESSICA SELLERS Results read back by same. MAGNESIUMon 01-25-2025 Interpretation and review of laboratory results Normal [facility] Magnesium [Mass/Vol] 2 mg/dL 1.9 - 2 .7 mg/dL [facility] Magnesium [Mass/Vol] 2.0 mg/dL Normal 1.9-2.7 [facility] Comment on above: Performed By: #### C H8, MG, HEPATIC ####S PATHOLOGY [id number], [place], MANUAL DIFF AND MORPHon 01-07 Cells Counted Total (Bld) [#] [facility] Microcytes Ql (Bld) Slight [facility] Ovalocytes LM Ql (Bld) Few [facility] RBC.hypochromic/100 RBC Auto (Bld) Moderate [facility] CELLS COUNTED TOTAL # IN BLOOD Normal [facility] Comment on above: Performed By: #### Aruna Olivas, CH8 #### S PATHOLOGY LABORATORY [address] [place] [address], HYPOCHROMASIA Moderate Normal [facility] Comment on above: Performed By: #### Aruna Olivas, CH8 #### S PATHOLOGY LABORATORY [address] [place] [address], MICROCYTOSIS Slight Normal [facility] Comment on above: Performed By: #### Aruna Olivas, CH8 #### S PATHOLOGY LABORATORY [address] [place] [address], OVALOCYTES Few Normal [facility] Comment on above: Performed By: #### Aruna Olivas, CH8 #### S PATHOLOGY LABORATORY [address] [place] [address], MCV (mean corpuscular volume ) determinationOrdered By: Jennie Navarro on 01-25-2025 MCV (RBC) [Entitic vol] 72.8 fL Low 81-99 [facility] Mean corpuscular hemoglobin (MCH) determinationOrdered By: Jennie Navarro on 01-25-2025 MCH (RBC) [Entitic mass] 20.9 pg Low 27.0-32.0 [facility] Mean corpuscular hemoglobin concentration (MCHC) determinationOrdered By: Jennie Navarro on 01-25-2025 MCHC (RBC) [Mass/Vol] 28.7 g/dL Low 32-36 [facility] Mean platelet volume determi nationOrdered By: Jennie Navarro on 01-25-2025 Platelet mean volume (Bld) [Entitic vol] 10.6 fL 6.2-12.0 [facility] Monocyte percentageOrdered B y: Jennie Navarro on 01-25-2025 Monocytes/100 WBC (Bld) 14.1 % High 0-10 [facility] Neutrophil percentageOrdered By: Jennie Navarro on 01-25-2025 Neutrophils/100 WBC (Bld) 64.9 % 47-70 [facility] No Panel InformationOrdered By: Terri Simon on 01-25-2025 [facility] No Panel Informationon 01-25 Interpretation and review of laboratory results Abnormal [facility] Nucleated red blood cell per centageOrdered By: Jennie Navarro on 01-25-2025 Nucleated RBC/100 WBC (Bld) [Ratio] 0 % 0-5 [facility] PROTHROMBIN TIME AND INRon 0 01-25-2025 INR Coag (PPP) [Relative time] 1.22 {INR} High 0.90 - 1.10 [facility] Interpretation and review of laboratory results Abnormal [facility] PT Coag (PPP) [Time] 13.7 s High [facility] INR Coag (PPP) [Relative time] 1.22 {INR} High 0.90-1.10 [facility] Comment on above: Performed By: #### P T #### [facility] [address] [place] [address], PT Coag (PPP) [Time] 13.7 s High 9.7-12.9 [facility] Comment on above: Performed By: #### P T #### [facility] [address] [place] [address], Platelet countOrdered By: Nicola Navarro on 01-25-2025 Platelets (Bld) [#/Vol] 232 10*3/uL 150-450 [facility] RBC Auto (Bld) [#/Vol]Ordere d By: Jennie Navarro on 01-25-2025 RBC (Bld) [#/Vol] 2.87 10*6/uL Low 4.2-5.4 [facility] Hospital TYPE AND SCREENon 01-25-2025 ABO and Rh group Nom (Bld) Blood group O Rh(D) positive [facility] ABO and Rh group Nom (Bld) No Previous Results [facility] Blood group antibody screen Ql Negative [facility] Specimen Expiration Date [id number] [facility] Telephone Encounteron 2024 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 That facility is requesting transfer because Services [...] or Unavailable at the time of acceptance, [facility] can supply the call back number. The [...] Keyon Fallon DO Division of Hospital Medicine, [facility] Pager#: [phone] Normal [facility] White blood cell (WBC) count Ordered By: Jennie Navarro on 01-25-2025 WBC (Bld) [#/Vol] 8.0 10*3/uL 4.4-11.0 [facility] 12 Lead EKGon 01-24-2025 12 Lead EKG [facility] Cardiovascular Services [address] [place] [address] 12 Lead EKG 01/24/25 2219 MR#: [id number] Acct: [id number] Name: ELY HURTADO Rep #: [id number] : 1940 84 From: Pascual Bonilla MD [...] Abnormal ECG Confirmed by PASCUAL BONILLA MD ([id number]), desk editor JOSE PEARSON ([id number]) on 01/26/2025 9:35:16 AM Referred By: Confirmed By: PASCUAL BONILLA MD 01/26/25 0935 Date Pascual Bonilla MD CC: Dr. Power Borges DO; Dianna Guido MD Signed Normal [facility] Activated partial thrombopla stin time (aPTT) in platelet poor plasma by coagulation aOrdered By: Power Borges on 01-24-2025 aPTT Coag (PPP) [Time] 30.3 s 24.1-36.2 [facility] Anion gap in Serum or Plasma Ordered By: Power Borges on 01-24-2025 Anion gap [Moles/Vol] 12 mmol/L 5-15 [facility] BRCon 01-24-2025 RC Normal [facility] Comment on above: Result Comment: [id number] OP RC TRANSFUSED 01/25/25 0738 [id number] OP RC TRANSFUSED 01/25/25 0535 Performed By: #### L 500.4100, L501.5200, L500.4050 #### [facility] Laboratory [address] [place], [address] BUN/creatinine ratioOrdered By: Power Borges on 01-24-2025 Urea nitrogen/Creatinine [Mass ratio] 18.4 mg/mg - [facility] Basic Metabolic Profile (BMP )on 01-24-2025 BUN/CRE 18.4 RATIO Normal 03-28 [facility] Comment on above: Performed By: #### L 500.4100, L501.5200, L500.4050 #### [facility] Laboratory [address] [place], [address] Calcium [Mass/Vol] 9.0 mg/dL Normal 7.6-11.0 [facility] Comment on above: Performed By: #### L 500.4100, L501.5200, L500.4050 #### [facility] Laboratory [address] [place], [address] Chloride [Moles/Vol] 103 mmol/L Normal 98-108 [facility] Comment on above: Performed By: #### L 500.4100, L501.5200, L500.4050 #### [facility] Laboratory [address] [place], [address] CO2 [Moles/Vol] 24.8 mmol/L Normal 21.0-32.0 [facility] Comment on above: Performed By: #### L 500.4100, L501.5200, L500.4050 #### [facility] Laboratory [address] [place], [address] Creatinine [Mass/Vol] 0.84 mg/dL Normal 0.70-1.20 [facility] Comment on above: Performed By: #### L 500.4100, L501.5200, L500.4050 #### [facility] Laboratory [address] [place], [address] ECRCL 48.18 ml/min Low 50-250 [facility] Comment on above: Performed By: #### L 500.4100, L501.5200, L500.4050 #### [facility] Laboratory [address] [place], [address] GAP 12 Normal 5-15 [facility] Comment on above: Performed By: #### L 500.4100, L501.5200, L500.4050 #### [facility] Laboratory [address] [place], [address] GFR/1.73 sq M.predicted among non-blacks MDRD (S/P/Bld) [Vol rate/Area] 69 mL/min/{1.73_m2} Normal >60 [facility] Comment on above: Result Comment: mL/m in/1.73m2 CKD-EPI Creatinine Equation (2020) Performed By: #### L 500.4100, L501.5200, L500.4050 #### [facility] Laboratory [address] [place], [address] Glucose [Mass/Vol] 116 mg/dL High 70-99 [facility] Comment on above: Performed By: #### L 500.4100, L501.5200, L500.4050 #### [facility] Laboratory [address] [place], [address] Potassium [Moles/Vol] 4.3 mmol/L Normal 3.3-5.1 [facility] Comment on above: Performed By: #### L 500.4100, L501.5200, L500.4050 #### [facility] Laboratory [address] [place], [address] Sodium [Moles/Vol] 140 mmol/L Normal 133-145 [facility] Comment on above: Performed By: #### L 500.4100, L501.5200, L500.4050 #### [facility] Laboratory [address] [place], [address] Urea nitrogen [Mass/Vol] 15 mg/dL Normal 4-19 [facility] Comment on above: Performed By: #### L 500.4100, L501.5200, L500.4050 #### [facility] Laboratory [address] [place], [address] CBC W/Diff, Automatedon 01-07 Absolute Lymph 2.22 X10 3/uL Normal 0.83-4.51 [facility] Comment on above: Performed By: #### L 500.2500, L300.4310, L300.3900, M100.7900, BTS, L100.0100 #### [facility] Laboratory [address] [place], [address] Absolute Neut 6.1 X10 3/uL Normal 2.0-7.7 [facility] Comment on above: Performed By: #### L 500.2500, L300.4310, L300.3900, M100.7900, BTS, L100.0100 #### [facility] Laboratory [address] [place], [address] Basophils/100 WBC (Bld) 0.4 % Normal 0-1 [facility] Comment on above: Performed By: #### L 500.2500, L300.4310, L300.3900, M100.7900, BTS, L100.0100 #### [facility] Laboratory [address] [place], [address] Eosinophils/100 WBC (Bld) 1.1 % Normal 0-5 [facility] Comment on above: Performed By: #### L 500.2500, L300.4310, L300.3900, M100.7900, BTS, L100.0100 #### [facility] Laboratory [address] [place], [address] Erythrocyte distribution width (RBC) [Ratio] 15.8 % High 11.6-14.6 [facility] Comment on above: Performed By: #### L 500.2500, L300.4310, L300.3900, M100.7900, BTS, L100.0100 #### [facility] Laboratory [address] [place], [address] Hematocrit (Bld) [Volume fraction] 28.7 % Low 37-47 [facility] Comment on above: Performed By: #### L 500.2500, L300.4310, L300.3900, M100.7900, BTS, L100.0100 #### [facility] Laboratory [address] [place], [address] Hemoglobin (Bld) [Mass/Vol] 8.2 g/dL Low 12.0-15.0 [facility] Comment on above: Performed By: #### L 500.2500, L300.4310, L300.3900, M100.7900, BTS, L100.0100 #### [facility] [address] [place], [address] IG% 0.300 Normal 0.0-0.9 [facility] Comment on above: Result Comment: IG% - Immature Granulocytes (promyelocytes, myelocytes and metamyelocytes) > 1% indicates that a LEFT SHIFT is Present. Performed By: #### L 500.2500, L300.4310, L300.3900, M100.7900, BTS, L100.0100 #### [facility] Laboratory [address] [place], [address] Lymphocytes/100 WBC (Bld) 22.8 % Normal 19-41 [facility] Comment on above: Performed By: #### L 500.2500, L300.4310, L300.3900, M100.7900, BTS, L100.0100 #### [facility] Laboratory [address] [place], [address] MCH (RBC) [Entitic mass] 20.7 pg Low 27.0-32.0 [facility] Comment on above: Performed By: #### L 500.2500, L300.4310, L300.3900, M100.7900, BTS, L100.0100 #### [facility] Laboratory [address] [place], [address] MCHC (RBC) [Mass/Vol] 28.6 g/dL Low 32-36 [facility] Comment on above: Performed By: #### L 500.2500, L300.4310, L300.3900, M100.7900, BTS, L100.0100 #### [facility] Laboratory [address] [place], [address] MCV (RBC) [Entitic vol] 72.5 fL Low 81-99 [facility] Comment on above: Performed By: #### L 500.2500, L300.4310, L300.3900, M100.7900, BTS, L100.0100 #### [facility] Laboratory [address] [place], [address] Monocytes/100 WBC (Bld) 12.8 % High 0-10 [facility] Comment on above: Performed By: #### L 500.2500, L300.4310, L300.3900, M100.7900, BTS, L100.0100 #### [facility] Laboratory [address] [place], [address] Neutrophils/100 WBC (Bld) 62.6 % Normal 47-70 [facility] Comment on above: Performed By: #### L 500.2500, L300.4310, L300.3900, M100.7900, BTS, L100.0100 #### [facility] [address] [place], [address] Nucleated RBC (Bld) [#/Vol] 0 10*3/uL Normal 0-5 [facility] Comment on above: Performed By: #### L 500.2500, L300.4310, L300.3900, M100.7900, BTS, L100.0100 #### [facility] [address] [place], [address] Platelet mean volume (Bld) [Entitic vol] 10.0 fL Normal 6.2-12.0 [facility] Comment on above: Performed By: #### L 500.2500, L300.4310, L300.3900, M100.7900, BTS, L100.0100 #### [facility] [address] [place], [address] Platelets (Bld) [#/Vol] 335 10*3/uL Normal 150-450 [facility] Comment on above: Performed By: #### L 500.2500, L300.4310, L300.3900, M100.7900, BTS, L100.0100 #### [facility] [address] [place], [address] RBC (Bld) [#/Vol] 3.96 10*6/uL Low 4.2-5.4 [facility] Comment on above: Performed By: #### L 500.2500, L300.4310, L300.3900, M100.7900, BTS, L100.0100 #### [facility] [address] [place], [address] RDW SD 41.1 fl Normal 35.1-43.9 [facility] Comment on above: Performed By: #### L 500.2500, L300.4310, L300.3900, M100.7900, BTS, L100.0100 #### [facility] [address] [place], [address] WBC (Bld) [#/Vol] 9.8 10*3/uL Normal 4.4-11.0 [facility] Comment on above: Performed By: #### L 500.2500, L300.4310, L300.3900, M100.7900, BTS, L100.0100 #### [facility] [address] [place], [address] CTA Abd/Pelvis W/WO Contrast on 01-24-2025 CTA Abd/Pelvis W/WO Contrast [facility] Imaging Services [address] [place] [address] CTA Abd/Pelvis W/WO Contrast MR#: [id number] Acct: [id number] Name: ELY HURTADO Patsy Rep #: [id number] : 1940 F 84 From: Tino Garza MD PCP: Dianna Guido MD Status: REG ER Study: CTA Abd/Pelvis W/WO Contrast Date of Exam: Exam# [id number] Ordering Dr: Power Borges DO PROCEDURE: CTA [...] provider Power Borges 01/24/2025 at 10:50 p.m. [employer]. Reading Location: [facility] CC: Dr. 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: Signed Normal [facility] Carbon dioxide, total [Moles /volume] in Central venous bloodOrdered By: Power Borges on 01-24-2025 CO2 [Moles/Vol] 24.8 mmol/L 21.0-32.0 [facility] Chloride assayOrdered By: Raffaele laureano Katerina on 01-24-2025 Chloride [Moles/Vol] 103 mmol/L 98-108 [facility] Emergency Department Summary on 01-24-2025 Emergency Department Summary [facility] Medical Records Department [address] [place] [address] Emergency Department Summary 01/24/25 MR#: [id number] Acct: [id number] Name: ELY HURTADO Rep #: [id number] : 1940 84 From: Power Weeks PCP: Dianna Guido MD Status:DEP ER Location: ED HPI HPI - GI History of Present Illness Chief Complaint: GI Bleed Informant: patient and EMS Narrative Narrative: Discontinue hydroxyzine sent in from [facility] living for increasing rectal bleeding reported blood [...] 82 Respirato (more content not included)... Normal [facility] Glomerular filtration rate ( GFR) estimation/1.73 sq m using serum, plasma, or whole bOrdered By: Power Borges on 01-24-2025 GFR/1.73 sq M.predicted among non-blacks MDRD (S/P/Bld) [Vol rate/Area] 69 mL/min/{1.73_m2} >60 [facility] Comment on above: mL/min/1.73m2 CKD-EP I Creatinine Equation (2020) International normalized rat io (INR) calculationOrdered By: Power Borges on 01-24-2025 INR Coag (Bld) [Relative time] 1.5 {INR} [facility] Partial Thromboplast Timeon 01-24-2025 aPTT Coag (Bld) [Time] 30.3 s Normal 24.1-36.2 [facility] Comment on above: Performed By: #### L 500.5336, L501.5200, L500.4050 #### [facility] [address] [place], [place], [id number] Potassium measurement (mass/ volume)Ordered By: Power Borges on 01-24-2025 Potassium (Unsp spec) [Mass/Vol] 4.3 mmol/L 3.3-5.1 [facility] Prothrombin Time w/INRon INR Coag (PPP) [Relative time] 1.5 {INR} Normal [facility] Comment on above: Performed By: #### L 500.4100, L501.5200, L500.4050 #### [facility] [address] [place], [address] PT Coag (PPP) [Time] 17.9 s High 11.7-14.9 [facility] Comment on above: Performed By: #### L 500.4100, L501.5200, L500.4050 #### [facility] [address] [place], [address] Prothrombin timeOrdered By: Power Borges on 01-24-2025 PT Coag (PPP) [Time] 17.9 s High 11.7-14.9 [facility] Serum creatinine measurement (mass/volume)Ordered By: Power Borges on 01-24-2025 Creatinine [Mass/Vol] 0.84 mg/dL 0.70-1.20 [facility] Serum glucose measurement (m ass/volume)Ordered By: Power Borges on 01-24-2025 Glucose [Mass/Vol] 116 mg/dL High 70-99 [facility] Serum or plasma calcium slava urement (mass/volume)Ordered By: Power Borges on 01-24-2025 Calcium [Mass/Vol] 9.0 mg/dL 7.6-11.0 [facility] Serum or plasma urea nitroge n measurement (mass/volume)Ordered By: Power Borges on 01-24-2025 Urea nitrogen [Mass/Vol] 15 mg/dL 4-19 [facility] Sodium levelOrdered By: Power Borges on 01-24-2025 Sodium [Moles/Vol] 140 mmol/L 133-145 [facility] Stool Occult Blood iFOBon STOB Positive Normal [facility] Comment on above: Performed By: #### L 500.2500, L300.4310, L300.3900, M100.7900, BTS, L100.0100 #### [facility] [address] [place], [address] Stool gastrointestinal hemog lobin detection by immunologic methodOrdered By: Power Borges on 01-24-2025 Lower GI hemoglobin IA Ql (Stl) Positive Abnormal [facility] Type AND Screenon 01-24-2025 Ab SCREEN GEL Negative Normal [facility] Comment on above: Order Comment: 155 Performed By: #### L 500.4100, L501.5200, L500.4050 #### [facility] [address] [place], [address] Bilirubin directOrdered By: Dianna Guido on 11-08-2024 Bilirubin.direct [Mass/Vol] 0.50 mg/dL High 0.00-0.30 [facility] Bilirubin, totalOrdered By: Dianna Guido on 11-08-2024 Bilirubin [Mass/Vol] 1.21 mg/dL 0.00-1.30 [facility] Laboratory - Chemistry and C hemistry - challengeOrdered By: Dianna Guido on 11-08-2024 AST [Catalytic activity/Vol] 22 U/L <32 [facility] Liver Profileon 11-08-2024 Albumin [Mass/Vol] 3.3 g/dL Low 3.4-4.8 [facility] Comment on above: Order Comment: 155 Performed By: #### L 500.3400 #### [facility] [address] [place], [address] ALK PHOS 95 U/L Normal 35-104 [facility] Comment on above: Order Comment: 155 Performed By: #### L 500.3400 #### [facility] [address] [place], [address] ALT [Catalytic activity/Vol] 8 U/L Normal <=34 [facility] Comment on above: Order Comment: 155 Performed By: #### L 500.3400 #### [facility] [address] [place], [address] AST [Catalytic activity/Vol] 22 U/L Normal <=31 [facility] Comment on above: Order Comment: 155 Performed By: #### L 500.3400 #### [facility] [address] [place], [address] Bilirubin [Mass/Vol] 1.21 mg/dL Normal 0.00-1.30 [facility] Comment on above: Order Comment: 155 Performed By: #### L 500.3400 #### [facility] [address] [place], [address] Bilirubin.direct [Mass/Vol] 0.50 mg/dL High 0.00-0.30 [facility] Comment on above: Order Comment: 155 Performed By: #### L 500.3400 #### [facility] [address] [place], [address] Globulin (S) [Mass/Vol] 2.2 g/dL Normal 2.2-4.2 [facility] Comment on above: Order Comment: 155 Performed By: #### L 500.3400 #### [facility] [address] [place], [address] T PROT 5.5 g/dL Low 5.9-8.4 [facility] Comment on above: Order Comment: 155 Performed By: #### L 500.3400 #### [facility] [address] [place], [address] Serum globulin measurementOr dered By: Dianna Guido on 11-08-2024 Globulin (S) [Mass/Vol] 2.2 g/dL 2.2-4.2 [facility] Serum or plasma alanine rasheed otransferase (ALT) measurementOrdered By: Dianna Guido on 11-08-2024 ALT [Catalytic activity/Vol] 8 U/L <35 [facility] Serum or plasma albumin slava urement (mass/volume)Ordered By: Dianna Guido on 11-08-2024 Albumin [Mass/Vol] 3.3 g/dL Low 3.4-4.8 [facility] Serum or plasma alkaline catalina sphatase measurementOrdered By: Dianna Guido on 11-08-2024 ALP [Catalytic activity/Vol] 95 U/L 35-104 [facility] Total proteinOrdered By: Zita Guido on 11-08-2024 Protein [Mass/Vol] 5.5 g/dL Low 5.9-8.4 [facility] Anion gap in Serum or Plasma Ordered By: Dianna Guido on 10-04-2024 Anion gap [Moles/Vol] 10 mmol/L 5-15 [facility] BUN/creatinine ratioOrdered By: Dianna Guido on 10-04-2024 Urea nitrogen/Creatinine [Mass ratio] 14.3 mg/mg 10-20 [facility] Bilirubin, totalOrdered By: Dianna Guido on 10-04-2024 Bilirubin [Mass/Vol] 1.57 mg/dL High 0.00-1.30 [facility] CBC-Complete Blood Cnt No Di ffon 10-04-2024 Erythrocyte distribution width (RBC) [Ratio] 14.5 % Normal 11.6-14.6 [facility] Comment on above: Order Comment: 155 Performed By: #### L 500.4050, L500.4100, L506.1001, L100.0500 #### [facility] [address] [place], [address] Hematocrit (Bld) [Volume fraction] 37.0 % Normal 37-47 [facility] Comment on above: Order Comment: 155 Performed By: #### L 500.4050, L500.4100, L506.1001, L100.0500 #### [facility] [address] [place], [address] Hemoglobin (Bld) [Mass/Vol] 11.2 g/dL Low 12.0-15.0 [facility] Comment on above: Order Comment: 155 Performed By: #### L 500.4050, L500.4100, L506.1001, L100.0500 #### [facility] [address] [place], [address] MCH (RBC) [Entitic mass] 24.6 pg Low 27.0-32.0 [facility] Comment on above: Order Comment: 155 Performed By: #### L 500.4050, L500.4100, L506.1001, L100.0500 #### [facility] [address] [place], [address] MCHC (RBC) [Mass/Vol] 30.3 g/dL Low 32-36 [facility] Comment on above: Order Comment: 155 Performed By: #### L 500.4050, L500.4100, L506.1001, L100.0500 #### [facility] [address] [place], [address] MCV (RBC) [Entitic vol] 81.1 fL Normal 81-99 [facility] Comment on above: Order Comment: 155 Performed By: #### L 500.4050, L500.4100, L506.1001, L100.0500 #### [facility] [address] [place], [address] Platelet mean volume (Bld) [Entitic vol] 10.8 fL Normal 6.2-12.0 [facility] Comment on above: Order Comment: 155 Performed By: #### L 500.4050, L500.4100, L506.1001, L100.0500 #### [facility] [address] [place], [address] Platelets (Bld) [#/Vol] 333 10*3/uL Normal 150-450 [facility] Comment on above: Order Comment: 155 Performed By: #### L 500.4050, L500.4100, L506.1001, L100.0500 #### [facility] [address] [place], [address] RBC (Bld) [#/Vol] 4.56 10*6/uL Normal 4.2-5.4 [facility] Comment on above: Order Comment: 155 Performed By: #### L 500.4050, L500.4100, L506.1001, L100.0500 #### [facility] [address] [place], [address] RDW SD 42.3 fl Normal 35.1-43.9 [facility] Comment on above: Order Comment: 155 Performed By: #### L 500.4050, L500.4100, L506.1001, L100.0500 #### [facility] [address] [place], [address] WBC (Bld) [#/Vol] 6.5 10*3/uL Normal 4.4-11.0 [facility] Comment on above: Order Comment: 155 Performed By: #### L 500.4050, L500.4100, L506.1001, L100.0500 #### [facility] [address] [place], [address] Calculated very low density lipoprotein (VLDL) cholesterol measurementOrdered By: Dianna Guido on 10-04-2024 Calculated very low density lipoprotein (VLDL) cholesterol measurement 16 mg/dL 5-40 [facility] Carbon dioxide, total [Moles /volume] in Central venous bloodOrdered By: Dianna Guido on 10-04-2024 CO2 [Moles/Vol] 28.5 mmol/L 21.0-32.0 [facility] Chloride assayOrdered By: Gonsalo Guido on 10-04-2024 Chloride [Moles/Vol] 105 mmol/L 98-108 [facility] Comprehensive Metabolic Prof ilon 10-04-2024 Chloride [Moles/Vol] 105 mmol/L Normal 98-108 [facility] Comment on above: Order Comment: 155 Performed By: #### L 500.4050, L500.4100, L506.1001, L100.0500 #### [facility] [address] [place], [address] CO2 [Moles/Vol] 28.5 mmol/L Normal 21.0-32.0 [facility] Comment on above: Order Comment: 155 Performed By: #### L 500.4050, L500.4100, L506.1001, L100.0500 #### [facility] [address] [place], [address] GAP 10 Normal 5-15 [facility] Comment on above: Order Comment: 155 Performed By: #### L 500.4050, L500.4100, L506.1001, L100.0500 #### [facility] [address] [place], [address] Potassium [Moles/Vol] 3.8 mmol/L Normal 3.3-5.1 [facility] Comment on above: Order Comment: 155 Performed By: #### L 500.4050, L500.4100, L506.1001, L100.0500 #### [facility] [address] [place], [address] Sodium [Moles/Vol] 143 mmol/L Normal 133-145 [facility] Comment on above: Order Comment: 155 Performed By: #### L 500.4050, L500.4100, L506.1001, L100.0500 #### [facility] [address] [place], [address] Albumin [Mass/Vol] 3.9 g/dL Normal 3.4-4.8 [facility] Comment on above: Order Comment: 155 Performed By: #### L 500.4050, L500.4100, L506.1001, L100.0500 #### [facility] [address] [place], [address] Albumin/Globulin [Mass ratio] 1.4 {ratio} Normal 0.9-2.4 [facility] Comment on above: Order Comment: 155 Performed By: #### L 500.4050, L500.4100, L506.1001, L100.0500 #### [facility] [address] [place], [address] ALK PHOS 112 U/L High 35-104 [facility] Comment on above: Order Comment: 155 Performed By: #### L 500.4050, L500.4100, L506.1001, L100.0500 #### [facility] [address] [place], [address] ALT [Catalytic activity/Vol] 9 U/L Normal <=34 [facility] Comment on above: Order Comment: 155 Performed By: #### L 500.4050, L500.4100, L506.1001, L100.0500 #### [facility] [address] [place], [address] AST [Catalytic activity/Vol] 26 U/L Normal <=31 [facility] Comment on above: Order Comment: 155 Performed By: #### L 500.4050, L500.4100, L506.1001, L100.0500 #### [facility] [address] [place], [address] Bilirubin [Mass/Vol] 1.57 mg/dL High 0.00-1.30 [facility] Comment on above: Order Comment: 155 Performed By: #### L 500.4050, L500.4100, L506.1001, L100.0500 #### [facility] [address] [place], [address] BUN/CRE 14.3 RATIO Normal 10-20 [facility] Comment on above: Order Comment: 155 Performed By: #### L 500.4050, L500.4100, L506.1001, L100.0500 #### [facility] [address] [place], [address] Calcium [Mass/Vol] 9.0 mg/dL Normal 7.6-11.0 [facility] Comment on above: Order Comment: 155 Performed By: #### L 500.4050, L500.4100, L506.1001, L100.0500 #### [facility] [address] [place], [address] Creatinine [Mass/Vol] 0.75 mg/dL Normal 0.70-1.20 [facility] Comment on above: Order Comment: 155 Performed By: #### L 500.4050, L500.4100, L506.1001, L100.0500 #### [facility] [address] [place], [address] GFR/1.73 sq M.predicted among non-blacks MDRD (S/P/Bld) [Vol rate/Area] 79 mL/min/{1.73_m2} Normal >60 [facility] Comment on above: Order Comment: 155 Result Comment: mL/m in/1.73m2 CKD-EPI Creatinine Equation (2020) Performed By: #### L 500.4050, L500.4100, L506.1001, L100.0500 #### [facility] [address] [place], [address] Globulin (S) [Mass/Vol] 2.8 g/dL Normal 2.2-4.2 [facility] Comment on above: Order Comment: 155 Performed By: #### L 500.4050, L500.4100, L506.1001, L100.0500 #### [facility] [address] [place], [address] Glucose [Mass/Vol] 93 mg/dL Normal 70-99 [facility] Comment on above: Order Comment: 155 Performed By: #### L 500.4050, L500.4100, L506.1001, L100.0500 #### [facility] [address] [place], [address] T PROT 6.7 g/dL Normal 5.9-8.4 [facility] Comment on above: Order Comment: 155 Performed By: #### L 500.4050, L500.4100, L506.1001, L100.0500 #### [facility] [address] [place], [address] Urea nitrogen [Mass/Vol] 11 mg/dL Normal 4-19 [facility] Comment on above: Order Comment: 155 Performed By: #### L 500.4050, L500.4100, L506.1001, L100.0500 #### [facility] [address] [place], [address] Erythrocyte distribution wid th ratioOrdered By: Dianna Guido on 10-04-2024 Erythrocyte distribution width (RBC) [Ratio] 14.5 % 11.6-14.6 [facility] Erythrocyte distribution wid th standard deviationOrdered By: Dianna Guido on 10-04-2024 Erythrocyte distribution width (RBC) [Ratio] 42.3 fl 35.1-43.9 [facility] Glomerular filtration rate ( GFR) estimation/1.73 sq m using serum, plasma, or whole bOrdered By: Dianna Guido on 10-04-2024 GFR/1.73 sq M.predicted among non-blacks MDRD (S/P/Bld) [Vol rate/Area] 79 mL/min/{1.73_m2} >60 [facility] Comment on above: mL/min/1.73m2 CKD-EP I Creatinine Equation (2020) Hematocrit Auto (Bld) [Volum e fraction]Ordered By: Dianna Guido on 10-04-2024 Hematocrit (Bld) [Volume fraction] 37.0 % 37-47 [facility] Hemoglobin measurementOrdere d By: Dianna Guido on 10-04-2024 Hemoglobin (Bld) [Mass/Vol] 11.2 g/dL Low 12.0-15.0 [facility] LDL calc ser/plasOrdered By: Dianna Guido on 10-04-2024 Cholesterol in LDL [Mass/Vol] 65 mg/dL [facility] Comment on above: Gngnzzwfkj=460-054 m g/dL & Higher Soow=314 mg/dL or greater Laboratory - Chemistry and C hemistry - challengeOrdered By: Dianna Guido on 10-04-2024 AST [Catalytic activity/Vol] 26 U/L <32 [facility] Lipid Profileon 10-04-2024 CHOL:HDL 2.64 Normal [facility] Comment on above: Order Comment: 155 Performed By: #### L 500.4050, L500.4100, L506.1001, L100.0500 #### [facility] [address] [place], [address] Cholesterol in HDL [Mass/Vol] 49 mg/dL Normal [facility] Comment on above: Order Comment: 155 Result Comment: Karis onal Cholesterol Education Program (NCEP) guidelines: <40 mg/dL: Low HDL-cholesterol (major risk factor for CHD) >= 60 mg/dL: High HDL-cholesterol (negative risk factor for CHD) HDL-cholesterol is affected by a number of factors, e.g. smoking, exercise, hormones, sex and age. Performed By: #### L 500.4050, L500.4100, L506.1001, L100.0500 #### [facility] [address] [place], [address] Cholesterol in LDL [Mass/Vol] 65 mg/dL Normal [facility] Comment on above: Order Comment: 155 Result Comment: Bord cvxilt=099-001 mg/dL Higher Dtia=640 mg/dL or greater Performed By: #### L 500.4050, L500.4100, L506.1001, L100.0500 #### [facility] [address] [place], [address] Cholesterol in VLDL [Mass/Vol] 16 mg/dL Normal 5-40 [facility] Comment on above: Order Comment: 155 Performed By: #### L 500.4050, L500.4100, L506.1001, L100.0500 #### [facility] [address] [place], [address] Triglyceride [Mass/Vol] 81 mg/dL Normal [facility] Comment on above: Order Comment: 155 Result Comment: The drugs N-Acetylcysteine and Metamizole may falsely depress this assay. Normal range: <150 mg/dL Borderline High: 150-199 mg/dL High: 200-499 mg/dL Very High: >500 mg/dL Performed By: #### L 500.4050, L500.4100, L506.1001, L100.0500 #### [facility] [address] [place], [address] Cholesterol [Mass/Vol] 130 mg/dL Normal <=200 [facility] Comment on above: Order Comment: 155 Result Comment: Chol esterol level, Desirable <200 mg/dL Borderline high cholesterol 200-239 mg/dL High cholesterol >=240 mg/dL Recommendations of the NCEP Adult Treatment Panel for the following risk-cutoff thresholds for the [place] population. Performed By: #### L 500.4050, L500.4100, L506.1001, L100.0500 #### [facility] [facility] [address] [place], [address] MCV (mean corpuscular volume ) determinationOrdered By: Dianna Guido on 10-04-2024 MCV (RBC) [Entitic vol] 81.1 fL 81-99 [facility] Mean corpuscular hemoglobin (MCH) determinationOrdered By: Dianna Guido on 10-04-2024 MCH (RBC) [Entitic mass] 24.6 pg Low 27.0-32.0 [facility] Mean corpuscular hemoglobin concentration (MCHC) determinationOrdered By: Dianna Guido on 10-04-2024 MCHC (RBC) [Mass/Vol] 30.3 g/dL Low 32-36 [facility] Mean platelet volume determi nationOrdered By: Dianna Guido on 10-04-2024 Platelet mean volume (Bld) [Entitic vol] 10.8 fL 6.2-12.0 [facility] Platelet countOrdered By: Gonsalo Guido on 10-04-2024 Platelets (Bld) [#/Vol] 333 10*3/uL 150-450 [facility] Potassium measurement (mass/ volume)Ordered By: Dianna Guido on 10-04-2024 Potassium (Unsp spec) [Mass/Vol] 3.8 mmol/L 3.3-5.1 [facility] RBC Auto (Bld) [#/Vol]Ordere d By: Dianna Guido on 10-04-2024 RBC (Bld) [#/Vol] 4.56 10*6/uL 4.2-5.4 [facility] Screening total cholesterol/ high density lipoprotein (HDL) cholesterol ratioOrdered By: Dianna Guido on 10-04-2024 Cholesterol.total/Chol esterol in HDL [Mass ratio] 2.64 {ratio} [facility] Serum creatinine measurement (mass/volume)Ordered By: Dianna Guido on 10-04-2024 Creatinine [Mass/Vol] 0.75 mg/dL 0.70-1.20 [facility] Serum globulin measurementOr dered By: Dianna Guido on 10-04-2024 Globulin (S) [Mass/Vol] 2.8 g/dL 2.2-4.2 [facility] Serum glucose measurement (m ass/volume)Ordered By: Dianna Guido on 10-04-2024 Glucose [Mass/Vol] 93 mg/dL 70-99 [facility] Serum or plasma alanine rasheed otransferase (ALT) measurementOrdered By: Dianna Guido on 10-04-2024 ALT [Catalytic activity/Vol] 9 U/L <35 [facility] Serum or plasma albumin slava urement (mass/volume)Ordered By: Dianna Guido on 10-04-2024 Albumin [Mass/Vol] 3.9 g/dL 3.4-4.8 [facility] Serum or plasma albumin/glob ulin mass ratioOrdered By: Dianna Guido on 10-04-2024 Albumin/Globulin [Mass ratio] 1.4 {ratio} 0.9-2.4 [facility] Serum or plasma alkaline catalina sphatase measurementOrdered By: Dainna Guido on 10-04-2024 ALP [Catalytic activity/Vol] 112 U/L High 35-104 [facility] Serum or plasma calcium slava urement (mass/volume)Ordered By: Dianna Guido on 10-04-2024 Calcium [Mass/Vol] 9.0 mg/dL 7.6-11.0 [facility] Serum or plasma cholesterol in HDL measurement (mass/volume)Ordered By: Dianna Guido on 10-04-2024 Cholesterol in HDL [Mass/Vol] 49 mg/dL >40 [facility] Comment on above: National Cholesterol Education Program (NCEP) guidelines:<40 mg/dL: Low HDL-cholesterol (major risk factor for CHD)>= 60 mg/dL: High HDL-cholesterol (negative risk factor for CHD)HDL-cholesterol is affected by a number of factors, e.g. smoking, exercise, hormones, sex and age. Serum or plasma cholesterol measurement (mass/volume)Ordered By: Dianna Guido on 10-04-2024 Cholesterol [Mass/Vol] 130 mg/dL <201 [facility] Comment on above: Cholesterol level, D esirable <200 mg/dLBorderline high cholesterol 200-239 mg/dLHigh cholesterol >=240 mg/dLRecommendations of the NCEP Adult Treatment Panel for the following risk-cutoff thresholds for the [place] population. Serum or plasma urea nitroge n measurement (mass/volume)Ordered By: Dianna Guido on 10-04-2024 Urea nitrogen [Mass/Vol] 11 mg/dL 4-19 [facility] Sodium levelOrdered By: Maite Guido on 10-04-2024 Sodium [Moles/Vol] 143 mmol/L 133-145 [facility] Total proteinOrdered By: Zita Guido on 10-04-2024 Protein [Mass/Vol] 6.7 g/dL 5.9-8.4 [facility] Triglycerides measurementOrd ered By: Dianna Guido on 10-04-2024 Triglyceride [Mass/Vol] 81 mg/dL <199 [facility] Comment on above: The drugs N-Acetylcy steine and Metamizole may falsely depress this assay. Normal range: <150 mg/dLBorderline High: 150-199 mg/dLHigh: 200-499 mg/dLVery High: >500 mg/dL Vitamin D,25 Hydroxyon 10-04 Vitamin D 25-OH 42.8 ng/mL Normal 30-100 [facility] Comment on above: Order Comment: 155 Result Comment: Alessandra min D Status Deficiency: <20 ng/mL (50nmol/L) Insufficiency: 20-30 ng/mL (50-75 nmol/L) Sufficiency: 30-100 ng/mL (75-250 nmol/L) Toxicity: >100 ng/mL (>250 nmol/L) Performed By: #### L 500.4050, L500.4100, L506.1001, L100.0500 #### [facility] [address] [place], [address] White blood cell (WBC) count Ordered By: Dianna Guido on 10-04-2024 WBC (Bld) [#/Vol] 6.5 10*3/uL 4.4-11.0 [facility] Comprehensive Metabolic Prof ilon 05-31-2024 Albumin [Mass/Vol] 3.2 g/dL Normal 3.2-5.0 [facility] Comment on above: Order Comment: 155 Performed By: #### L 500.4100, L501.5200, L500.4050 #### [facility] [address] [place], [address] Albumin/Globulin [Mass ratio] 0.9 {ratio} Normal 0.9-2.4 [facility] Comment on above: Order Comment: 155 Performed By: #### L 500.4100, L501.5200, L500.4050 #### [facility] [address] [place], [address] ALK P 115 U/L Normal 45-117 [facility] Comment on above: Order Comment: 155 Performed By: #### L 500.4100, L501.5200, L500.4050 #### [facility] [address] [place], [address] ALT [Catalytic activity/Vol] 17 U/L Normal 13-56 [facility] Comment on above: Order Comment: 155 Performed By: #### L 500.4100, L501.5200, L500.4050 #### [facility] [address] [place], [address] AST [Catalytic activity/Vol] 23 U/L Normal 15-37 [facility] Comment on above: Order Comment: 155 Performed By: #### L 500.4100, L501.5200, L500.4050 #### [facility] [address] [place], [address] Bilirubin [Mass/Vol] 1.60 mg/dL High 0.20-1.00 [facility] Comment on above: Order Comment: 155 Result Comment: For patients on eltrombopag therapy, use of Dimension [place] TBIL is not recommended. Performed By: #### L 500.4100, L501.5200, L500.4050 #### [facility] [address] [place], [address] BUN/CRE 14.9 RATIO Normal 10-20 [facility] Comment on above: Order Comment: 155 Performed By: #### L 500.4100, L501.5200, L500.4050 #### [facility] [address] [place], [address] CA,Total 9.1 mg/dL Normal 8.5-10.1 [facility] Comment on above: Order Comment: 155 Performed By: #### L 500.4100, L501.5200, L500.4050 #### [facility] [address] [place], [address] Chloride [Moles/Vol] 109 mmol/L High 98-107 [facility] Comment on above: Order Comment: 155 Performed By: #### L 500.4100, L501.5200, L500.4050 #### [facility] [address] [place], [address] CO2 [Moles/Vol] 31.0 mmol/L Normal 21.0-32.0 [facility] Comment on above: Order Comment: 155 Performed By: #### L 500.4100, L501.5200, L500.4050 #### [facility] [address] [place], [address] Creatinine [Mass/Vol] 0.74 mg/dL Normal 0.55-1.02 [facility] Comment on above: Order Comment: 155 Result Comment: The validity of the calculated GFR GFRAA in patients over 70 years has not been determined. Clinical correlation is essential. Performed By: #### L 500.4100, L501.5200, L500.4050 #### [facility] [address] [place], [address] EST GFR - AA 97 mL/min Normal >60 [facility] Comment on above: Order Comment: 155 Result Comment: Afri can Chinese GFR Calc Performed By: #### L 500.4100, L501.5200, L500.4050 #### [facility] [address] [place], [address] GAP 4 Low 5-15 [facility] Comment on above: Order Comment: 155 Performed By: #### L 500.4100, L501.5200, L500.4050 #### [facility] [address] [place], [address] GFR/1.73 sq M.predicted among non-blacks MDRD (S/P/Bld) [Vol rate/Area] 80 mL/min/{1.73_m2} Normal >60 [facility] Comment on above: Order Comment: 155 Result Comment: Non- GFR Calc Performed By: #### L 500.4100, L501.5200, L500.4050 #### [facility] [address] [place], [address] Globulin (S) [Mass/Vol] 3.4 g/dL Normal 2.2-4.2 [facility] Comment on above: Order Comment: 155 Performed By: #### L 500.4100, L501.5200, L500.4050 #### [facility] [address] [place], [address] Glucose [Mass/Vol] 97 mg/dL Normal 74-106 [facility] Comment on above: Order Comment: 155 Performed By: #### L 500.4100, L501.5200, L500.4050 #### [facility] [address] [place], [address] Potassium [Moles/Vol] 3.9 mmol/L Normal 3.5-5.1 [facility] Comment on above: Order Comment: 155 Performed By: #### L 500.4100, L501.5200, L500.4050 #### [facility] [address] [place], [address] Sodium [Moles/Vol] 143 mmol/L Normal 136-145 [facility] Comment on above: Order Comment: 155 Performed By: #### L 500.4100, L501.5200, L500.4050 #### [facility] [address] [place], [address] T PROT 6.6 g/dL Normal 6.4-8.2 [facility] Comment on above: Order Comment: 155 Performed By: #### L 500.4100, L501.5200, L500.4050 #### [facility] [address] [place], [address] Urea nitrogen [Mass/Vol] 11 mg/dL Normal 7-18 [facility] Comment on above: Order Comment: 155 Performed By: #### L 500.4100, L501.5200, L500.4050 #### [facility] [address] [place], [address] Lipid Profileon 05-31-2024 Cholesterol [Mass/Vol] 128 mg/dL Normal 200 [facility] Comment on above: Order Comment: 155 Result Comment: <200 mg/dL Desirable 200-240 mg/dL Borderline >240 mg/dL High Risk Performed By: #### L 500.4100, L501.5200, L500.4050 #### [facility] [address] [place], [address] Cholesterol in HDL [Mass/Vol] 57 mg/dL Normal [facility] Comment on above: Order Comment: 155 Result Comment: The drugs N-Acetylcysteine and Metamizole may falsely depress this assay. Reference Range HDL <40 mg/dL Low HDL Cholesterol HDL >or= 60 mg/dL High HDL Cholesterol Performed By: #### L 500.4100, L501.5200, L500.4050 #### [facility] [address] [place], [address] Cholesterol in LDL [Mass/Vol] 52 mg/dL Normal 0-130 [facility] Comment on above: Order Comment: 155 Performed By: #### L 500.4100, L501.5200, L500.4050 #### [facility] [address] [place], [address] Cholesterol in VLDL [Mass/Vol] 19 mg/dL Normal 5-40 [facility] Comment on above: Order Comment: 155 Performed By: #### L 500.4100, L501.5200, L500.4050 #### [facility] [address] [place], [address] Triglyceride [Mass/Vol] 97 mg/dL Normal [facility] Comment on above: Order Comment: 155 Result Comment: The drugs N-Acetylcysteine and Metamizole may falsely depress this assay. Serum Triglycerides Reference Interval Normal <150 mg/dL Borderline high 150 - 199 mg/dL High 200 - 499 mg/dL Very High > or = 500 mg/dL Performed By: #### L 500.4100, L501.5200, L500.4050 #### [facility] [address] [place], [address] Magnesiumon 05-31-2024 Magnesium [Mass/Vol] 2.4 mg/dL Normal 1.6-2.6 [facility] Comment on above: Order Comment: 155 Performed By: #### L 500.4100, L501.5200, L500.4050 #### [facility] [address] [place], [address] Anaerobic cultureOrdered By: Andie Bernal on 05-22-2023 Bacteria identified Anaer cx Nom (Unsp spec) No anaerobic bacteria isolated. [facility] Bacteria identified Cx Nom ( Wound)Ordered By: Andie Bernal on 05-22-2023 Wound Culture Enterococcus faecalis [facility] Wound Culture Staphylococcus lugdunensis [facility] Gram stain for investigation of transfusion reactionOrdered By: Andie Bernal on 05-22-2023 Microscopic observation Gram stain Nom (Unsp spec) [facility] Absolute lymphocyte countOrd ered By: Dianna Guido on 05-19-2023 Lymphocytes Auto (Unsp spec) [#/Vol] 2.12 10*3/uL 0.83-4.51 [facility] Basophil percentageOrdered B y: Dianna Guido on 05-19-2023 Basophils/100 WBC (Bld) 1.0 % 0-1 [facility] Eosinophils/100 WBC (Bld) 3.2 % 0-5 [facility] Neutrophils (Bld) [#/Vol] 3.6 10*3/uL 2.0-7.7 [facility] Neutrophils/100 WBC (Bld) 52.8 % 47-70 [facility] WBC (Bld) [#/Vol] 6.9 10*3/uL 4.4-11.0 [facility] Blood erythrocytes count (nu mber/volume)Ordered By: Dianna Guido on 05-19-2023 RBC (Bld) [#/Vol] 5.10 10*6/uL 4.2-5.4 [facility] Blood hemoglobin measurement (mass/volume)Ordered By: Dianna Guido on 05-19-2023 Hemoglobin (Bld) [Mass/Vol] 14.0 g/dL 12.0-15.0 [facility] Blood lymphocytes/100 leukoc ytesOrdered By: Dianna Guido on 05-19-2023 Lymphocytes/100 WBC (Bld) 30.9 % 19-41 [facility] Blood monocytes/100 leukocyt esOrdered By: Diannahunter Guido on 05-19-2023 Monocytes/100 WBC (Bld) 11.8 % 0-10 [facility] Blood platelet mean volumeOr dered By: Dianna Guido on 05-19-2023 Platelet mean volume (Bld) [Entitic vol] 10.6 fL 6.2-12.0 [facility] Determination of erythrocyte mean corpuscular volume (MCV)Ordered By: Dianna Guido on 05-19-2023 MCV (RBC) [Entitic vol] 90.8 fL 81-99 [facility] Hematocrit Auto (Bld) [Volum e fraction]Ordered By: Dianna Guido on 05-19-2023 Hematocrit (Bld) [Volume fraction] 46.3 % 37-47 [facility] - Hematology and Cell countsOrdered By: Dianna Guido on 05-19-2023 Erythrocyte distribution width (RBC) [Entitic vol] 46.1 fL 35.1-43.9 [facility] Erythrocyte distribution width (RBC) [Ratio] 13.7 % 11.6-14.6 [facility] Immature granulocytes/100 WBC (Bld) 0.300 % 0.0-0.9 [facility] Comment on above: IG% - Immature Granu locytes (promyelocytes, myelocytes and metamyelocytes) > 1% indicates that a LEFT SHIFT is Present. MCH (RBC) [Entitic mass] 27.5 pg 27.0-32.0 [facility] Nucleated RBC/100 WBC (Bld) [Ratio] 0 % 0-5 [facility] MCHC Auto (RBC) [Mass/Vol]Or dered By: Dianna Guido on 05-19-2023 MCHC (RBC) [Mass/Vol] 30.2 g/dL 32-36 [facility] Platelets bldOrdered By: Zita Guido on 05-19-2023 Platelets (Bld) [#/Vol] 285 10*3/uL 150-450 [facility] Bacteria identified Cx Nom ( Wound)Ordered By: Dianna Guido on 05-16-2023 Wound Culture Presumptive E. coli [facility] Gram stain for investigation of transfusion reactionOrdered By: Dianna Guido on 05-16-2023 Microscopic observation Gram stain Nom (Unsp spec) [facility] Basophil percentageOrdered B y: Dianna Guido on 05-14-2023 WBC (Bld) [#/Vol] 6.8 10*3/uL 4.4-11.0 [facility] Blood erythrocytes count (nu mber/volume)Ordered By: Dianna Guido on 05-14-2023 RBC (Bld) [#/Vol] 5.19 10*6/uL 4.2-5.4 [facility] Blood hemoglobin measurement (mass/volume)Ordered By: Dianna Guido on 05-14-2023 Hemoglobin (Bld) [Mass/Vol] 14.2 g/dL 12.0-15.0 [facility] Blood platelet mean volumeOr dered By: Dianna Guido on 05-14-2023 Platelet mean volume (Bld) [Entitic vol] 10.4 fL 6.2-12.0 [facility] Determination of erythrocyte mean corpuscular volume (MCV)Ordered By: Dianna Guido on 05-14-2023 MCV (RBC) [Entitic vol] 88.8 fL 81-99 [facility] Hematocrit Auto (Bld) [Volum e fraction]Ordered By: Dianna Guido on 05-14-2023 Hematocrit (Bld) [Volume fraction] 46.1 % 37-47 [facility] - Hematology and Cell countsOrdered By: Dianna Guido on 12-06-2023 Erythrocyte distribution width (RBC) [Entitic vol] 44.3 fL 35.1-43.9 [facility] Erythrocyte distribution width (RBC) [Ratio] 13.6 % 11.6-14.6 [facility] MCH (RBC) [Entitic mass] 27.4 pg 27.0-32.0 [facility] MCHC Auto (RBC) [Mass/Vol]Or dered By: Dianna Guido on 05-14-2023 MCHC (RBC) [Mass/Vol] 30.8 g/dL 32-36 [facility] Platelets bldOrdered By: Zita Guido on 05-14-2023 Platelets (Bld) [#/Vol] 289 10*3/uL 150-450 [facility] Absolute lymphocyte countOrd ered By: Dianna Guido on 04-28-2023 Lymphocytes Auto (Unsp spec) [#/Vol] 1.69 10*3/uL 0.83-4.51 [facility] Basophil percentageOrdered B y: Dianna Guido on 04-28-2023 Basophils/100 WBC (Bld) 0.9 % 0-1 [facility] Chloride [Moles/Vol] 105 mmol/L 98-107 [facility] Eosinophils/100 WBC (Bld) 3.1 % 0-5 [facility] Glucose [Mass/Vol] 93 mg/dL 74-106 [facility] Neutrophils (Bld) [#/Vol] 3.6 10*3/uL 2.0-7.7 [facility] Neutrophils/100 WBC (Bld) 56.0 % 47-70 [facility] Potassium [Moles/Vol] 3.6 mmol/L 3.5-5.1 [facility] Sodium [Moles/Vol] 143 mmol/L 136-145 [facility] WBC (Bld) [#/Vol] 6.4 10*3/uL 4.4-11.0 [facility] Blood erythrocytes count (nu mber/volume)Ordered By: Dianna Guido on 04-28-2023 RBC (Bld) [#/Vol] 4.76 10*6/uL 4.2-5.4 [facility] Blood hemoglobin measurement (mass/volume)Ordered By: Dianna Guido on 04-28-2023 Hemoglobin (Bld) [Mass/Vol] 13.0 g/dL 12.0-15.0 [facility] Blood lymphocytes/100 leukoc ytesOrdered By: Dianna Guido on 04-28-2023 Lymphocytes/100 WBC (Bld) 26.3 % 19-41 [facility] Blood monocytes/100 leukocyt esOrdered By: Dianna Guido on 04-28-2023 Monocytes/100 WBC (Bld) 13.4 % 0-10 [facility] Blood platelet mean volumeOr dered By: Dianna Guido on 04-28-2023 Platelet mean volume (Bld) [Entitic vol] 10.6 fL 6.2-12.0 [facility] Determination of erythrocyte mean corpuscular volume (MCV)Ordered By: Dianna Guido on 04-28-2023 MCV (RBC) [Entitic vol] 91.0 fL 81-99 [facility] Hematocrit Auto (Bld) [Volum e fraction]Ordered By: Dianna Guido on 04-28-2023 Hematocrit (Bld) [Volume fraction] 43.3 % 37-47 [facility] - Chemistry and C hemistry - challengeOrdered By: Dianna Guido on 04-28-2023 CO2 [Moles/Vol] 34.0 mmol/L 21.0-32.0 [facility] Magnesium [Mass/Vol] 2.3 mg/dL 1.6-2.6 [facility] Urea nitrogen/Creatinine [Mass ratio] 12.9 mg/mg 10-20 [facility] - Hematology and Cell countsOrdered By: Dianna Guido on 04-28-2023 Erythrocyte distribution width (RBC) [Entitic vol] 45.0 fL 35.1-43.9 [facility] Erythrocyte distribution width (RBC) [Ratio] 13.4 % 11.6-14.6 [facility] Immature granulocytes/100 WBC (Bld) 0.300 % 0.0-0.9 [facility] Comment on above: IG% - Immature Granu locytes (promyelocytes, myelocytes and metamyelocytes) > 1% indicates that a LEFT SHIFT is Present. MCH (RBC) [Entitic mass] 27.3 pg 27.0-32.0 [facility] Nucleated RBC/100 WBC (Bld) [Ratio] 0 % 0-5 [facility] MCHC Auto (RBC) [Mass/Vol]Or dered By: Dianna Guido on 04-28-2023 MCHC (RBC) [Mass/Vol] 30.0 g/dL 32-36 [facility] No Panel InformationOrdered By: Dianna Guido on 04-28-2023 Estimated GFR (MDRD) Amer 92 mL/min >60 [facility] Comment on above: GFR Calc Estimated GFR (MDRD) Non-Af Amer 76 mL/min >60 [facility] Comment on above: Non- GFR Calc Platelets bldOrdered By: Zita Guido on 04-28-2023 Platelets (Bld) [#/Vol] 253 10*3/uL 150-450 [facility] Serum or plasma calcium slava urement (mass/volume)Ordered By: Dianna Guido on 04-28-2023 Calcium [Mass/Vol] 8.6 mg/dL 8.5-10.1 [facility] Serum or plasma creatinine m easurement (mass/volume)Ordered By: Dianna Guido on 04-28-2023 Creatinine [Mass/Vol] 0.78 mg/dL 0.55-1.02 [facility] Comment on above: The validity of the calculated GFR & GFRAA in patients over 70 years has not been determined. Clinical correlation is essential. Serum or plasma urea nitroge n measurement (mass/volume)Ordered By: Dianna Guido on 04-28-2023 Urea nitrogen [Mass/Vol] 10 mg/dL 7-18 [facility] Thin prep Papanicolaou smear with manual screeningOrdered By: Dianna Guido on 04-28-2023 Thin prep Papanicolaou smear with manual screening 4 5-15 [facility] Basophil percentageOrdered B y: Dianna Guido on 03-26-2023 Chloride [Moles/Vol] 104 mmol/L 98-107 [facility] Glucose [Mass/Vol] 98 mg/dL 74-106 [facility] Potassium [Moles/Vol] 3.9 mmol/L 3.5-5.1 [facility] Sodium [Moles/Vol] 140 mmol/L 136-145 [facility] Laboratory - Chemistry and C hemistry - challengeOrdered By: Dianna Guido on 03-26-2023 CO2 [Moles/Vol] 33.0 mmol/L 21.0-32.0 [facility] Magnesium [Mass/Vol] 2.5 mg/dL 1.6-2.6 [facility] Urea nitrogen/Creatinine [Mass ratio] 15.0 mg/mg 10- [facility] No Panel InformationOrdered By: Dianna Guido on 03-26-2023 Estimated GFR (MDRD) Amer 98 mL/min >60 [facility] Comment on above: GFR Calc Estimated GFR (MDRD) Non-Af Amer 81 mL/min >60 [facility] Comment on above: Non- GFR Calc Serum or plasma calcium slava urement (mass/volume)Ordered By: Dianna Guido on 03-26-2023 Calcium [Mass/Vol] 9.1 mg/dL 8.5-10.1 [facility] Serum or plasma creatinine m easurement (mass/volume)Ordered By: Dianna Guido on 03-26-2023 Creatinine [Mass/Vol] 0.73 mg/dL 0.55-1.02 [facility] Comment on above: The validity of the calculated GFR & GFRAA in patients over 70 years has not been determined. Clinical correlation is essential. Serum or plasma urea nitroge n measurement (mass/volume)Ordered By: Dianna Guido on 03-26-2023 Urea nitrogen [Mass/Vol] 11 mg/dL - [facility] Thin prep Papanicolaou smear with manual screeningOrdered By: Dianna Guido on 03-26-2023 Thin prep Papanicolaou smear with manual screening 3 - [facility] Basophil percentageOrdered B y: Dianna Guido on 02-27-2023 Chloride [Moles/Vol] 105 mmol/L 98-107 [facility] Glucose [Mass/Vol] 103 mg/dL 74-106 [facility] Comment on above: Fasting Glucose resu lt from 100 to 125 mg/dL suggests IMPAIRED HOMEOSTASIS per A.D.A. criteria. Potassium [Moles/Vol] 3.8 mmol/L 3.5-5.1 [facility] Sodium [Moles/Vol] 140 mmol/L 136-145 [facility] Laboratory - Chemistry and C hemistry - challengeOrdered By: Dianna Guido on 02-27-2023 CO2 [Moles/Vol] 33.0 mmol/L 21.0-32.0 [facility] Magnesium [Mass/Vol] 2.3 mg/dL 1.6-2.6 [facility] Urea nitrogen/Creatinine [Mass ratio] 13.1 mg/mg 10-20 [facility] No Panel InformationOrdered By: Dianna Guido on 02-27-2023 Estimated GFR (MDRD) Amer 93 mL/min >60 [facility] Comment on above: GFR Calc Estimated GFR (MDRD) Non-Af Amer 77 mL/min >60 [facility] Comment on above: Non- GFR Calc Serum or plasma calcium slava urement (mass/volume)Ordered By: Dianna Guido on 02-27-2023 Calcium [Mass/Vol] 8.9 mg/dL 8.5-10.1 [facility] Serum or plasma creatinine m easurement (mass/volume)Ordered By: Dianna Guido on 02-27-2023 Creatinine [Mass/Vol] 0.76 mg/dL 0.55-1.02 [facility] Comment on above: The validity of the calculated GFR & GFRAA in patients over 70 years has not been determined. Clinical correlation is essential. Serum or plasma urea nitroge n measurement (mass/volume)Ordered By: Dianna Guido on 02-27-2023 Urea nitrogen [Mass/Vol] 10 mg/dL 7-18 [facility] Thin prep Papanicolaou smear with manual screeningOrdered By: Dianna Guido on 02-27-2023 Thin prep Papanicolaou smear with manual screening 2 5-15 [facility] Basophil percentageOrdered B y: Dianna Guido on 01-03-2023 Chloride [Moles/Vol] 104 mmol/L 98-107 [facility] Glucose [Mass/Vol] 107 mg/dL 74-106 [facility] Comment on above: Fasting Glucose resu lt from 100 to 125 mg/dL suggests IMPAIRED HOMEOSTASIS per A.D.A. criteria. Potassium [Moles/Vol] 3.8 mmol/L 3.5-5.1 [facility] Sodium [Moles/Vol] 141 mmol/L 136-145 [facility] Laboratory - Chemistry and C hemistry - challengeOrdered By: Dianna Guido on 01-03-2023 CO2 [Moles/Vol] 31.0 mmol/L 21.0-32.0 [facility] Urea nitrogen/Creatinine [Mass ratio] 10.0 mg/mg 10-20 [facility] No Panel InformationOrdered By: Dianna Guido on 01-03-2023 Estimated GFR (MDRD) Amer 104 mL/min >60 [facility] Comment on above: GFR Calc Estimated GFR (MDRD) Non-Af Amer 86 mL/min >60 [facility] Comment on above: Non- GFR Calc Serum or plasma calcium slava urement (mass/volume)Ordered By: Dianna Guido on 01-03-2023 Calcium [Mass/Vol] 9.0 mg/dL 8.5-10.1 [facility] Serum or plasma creatinine m easurement (mass/volume)Ordered By: Dianna Guido on 01-03-2023 Creatinine [Mass/Vol] 0.70 mg/dL 0.55-1.02 [facility] Comment on above: The validity of the calculated GFR & GFRAA in patients over 70 years has not been determined. Clinical correlation is essential. Serum or plasma urea nitroge n measurement (mass/volume)Ordered By: Dianna Guido on 01-03-2023 Urea nitrogen [Mass/Vol] 7 mg/dL - [facility] Thin prep Papanicolaou smear with manual screeningOrdered By: Dianna Guido on 01-03-2023 Thin prep Papanicolaou smear with manual screening 6 5-15 [facility] Absolute lymphocyte countOrd ered By: Dianna Guido on 12-24-2022 Lymphocytes Auto (Unsp spec) [#/Vol] 1.38 10*3/uL 0.83-4.51 [facility] Basophil percentageOrdered B y: Dianna Guido on 12-24-2022 Basophils/100 WBC (Bld) 0.7 % 0-1 [facility] Chloride [Moles/Vol] 103 mmol/L 98-107 [facility] Eosinophils/100 WBC (Bld) 2.5 % 0-5 [facility] Glucose [Mass/Vol] 111 mg/dL 74-106 [facility] Comment on above: Fasting Glucose resu lt from 100 to 125 mg/dL suggests IMPAIRED HOMEOSTASIS per A.D.A. criteria. Neutrophils (Bld) [#/Vol] 3.7 10*3/uL 2.0-7.7 [facility] Neutrophils/100 WBC (Bld) 62.1 % 47-70 [facility] Potassium [Moles/Vol] 3.4 mmol/L 3.5-5.1 [facility] Sodium [Moles/Vol] 139 mmol/L 136-145 [facility] WBC (Bld) [#/Vol] 5.9 10*3/uL 4.4-11.0 [facility] Blood erythrocytes count (nu mber/volume)Ordered By: Dianna Guido on 12-24-2022 RBC (Bld) [#/Vol] 5.38 10*6/uL 4.2-5.4 [facility] Blood hemoglobin measurement (mass/volume)Ordered By: Dianna Guido on 12-24-2022 Hemoglobin (Bld) [Mass/Vol] 14.9 g/dL 12.0-15.0 [facility] Blood lymphocytes/100 leukoc ytesOrdered By: Dianna Guido on 12-24-2022 Lymphocytes/100 WBC (Bld) 23.4 % 19-41 [facility] Blood monocytes/100 leukocyt esOrdered By: Dianna Guido on 12-24-2022 Monocytes/100 WBC (Bld) 11.0 % 0-10 [facility] Blood platelet mean volumeOr dered By: Dianna Guido on 12-24-2022 Platelet mean volume (Bld) [Entitic vol] 9.6 fL 6.2-12.0 [facility] Determination of erythrocyte mean corpuscular volume (MCV)Ordered By: Dianna Guido on 12-24-2022 MCV (RBC) [Entitic vol] 90.0 fL 81-99 [facility] Hematocrit Auto (Bld) [Volum e fraction]Ordered By: Dianna Guido on 12-24-2022 Hematocrit (Bld) [Volume fraction] 48.4 % 37-47 [facility] Laboratory - Chemistry and C hemistry - challengeOrdered By: Dianna Guido on 12-24-2022 CO2 [Moles/Vol] 31.0 mmol/L 21.0-32.0 [facility] Urea nitrogen/Creatinine [Mass ratio] 9.0 mg/mg 10-20 [facility] Laboratory - Hematology and Cell countsOrdered By: Dianna Guido on 12-24-2022 Erythrocyte distribution width (RBC) [Entitic vol] 44.5 fL 35.1-43.9 [facility] Erythrocyte distribution width (RBC) [Ratio] 13.5 % 11.6-14.6 [facility] Immature granulocytes/100 WBC (Bld) 0.300 % 0.0-0.9 [facility] Comment on above: IG% - Immature Granu locytes (promyelocytes, myelocytes and metamyelocytes) > 1% indicates that a LEFT SHIFT is Present. MCH (RBC) [Entitic mass] 27.7 pg 27.0-32.0 [facility] Nucleated RBC/100 WBC (Bld) [Ratio] 0 % 0-5 [facility] MCHC Auto (RBC) [Mass/Vol]Or dered By: Dianna Guido on 12-24-2022 MCHC (RBC) [Mass/Vol] 30.8 g/dL 32-36 [facility] No Panel InformationOrdered By: Dianna Guido on 12-24-2022 Estimated GFR (MDRD) Amer 109 mL/min >60 [facility] Comment on above: GFR Calc Estimated GFR (MDRD) Non-Af Amer 90 mL/min >60 [facility] Comment on above: Non- GFR Calc Platelets bldOrdered By: Zita Guido on 12-24-2022 Platelets (Bld) [#/Vol] 283 10*3/uL 150-450 [facility] Serum or plasma calcium slava urement (mass/volume)Ordered By: Dianna Guido on 12-24-2022 Calcium [Mass/Vol] 8.8 mg/dL 8.5-10.1 [facility] Serum or plasma creatinine m easurement (mass/volume)Ordered By: Dianna Guido on 12-24-2022 Creatinine [Mass/Vol] 0.67 mg/dL 0.55-1.02 [facility] Comment on above: The validity of the calculated GFR & GFRAA in patients over 70 years has not been determined. Clinical correlation is essential. Serum or plasma urea nitroge n measurement (mass/volume)Ordered By: Dianna Guido on 12-24-2022 Urea nitrogen [Mass/Vol] 6 mg/dL 7-18 [facility] Thin prep Papanicolaou smear with manual screeningOrdered By: Dianna Guido on 12-24-2022 Thin prep Papanicolaou smear with manual screening 5 5-15 [facility] Absolute lymphocyte countOrd ered By: Dianna Guido on 11-05-2022 Lymphocytes Auto (Unsp spec) [#/Vol] 1.42 10*3/uL 0.83-4.51 [facility] Basophil percentageOrdered B y: Dianna Guido on 11-05-2022 Basophils/100 WBC (Bld) 0.6 % 0-1 [facility] Chloride [Moles/Vol] 106 mmol/L 98-107 [facility] Eosinophils/100 WBC (Bld) 4.1 % 0-5 [facility] Glucose [Mass/Vol] 90 mg/dL 74-106 [facility] Neutrophils (Bld) [#/Vol] 3.0 10*3/uL 2.0-7.7 [facility] Neutrophils/100 WBC (Bld) 55.5 % 47-70 [facility] Potassium [Moles/Vol] 4.0 mmol/L 3.5-5.1 [facility] Sodium [Moles/Vol] 141 mmol/L 136-145 [facility] WBC (Bld) [#/Vol] 5.4 10*3/uL 4.4-11.0 [facility] Blood erythrocytes count (nu mber/volume)Ordered By: Dianna Guido on 11-05-2022 RBC (Bld) [#/Vol] 5.26 10*6/uL 4.2-5.4 [facility] Blood hemoglobin measurement (mass/volume)Ordered By: Dianna Guido on 11-05-2022 Hemoglobin (Bld) [Mass/Vol] 14.8 g/dL 12.0-15.0 [facility] Blood lymphocytes/100 leukoc ytesOrdered By: Diannahunter Guido on 11-05-2022 Lymphocytes/100 WBC (Bld) 26.5 % 19-41 [facility] Blood monocytes/100 leukocyt esOrdered By: Dianna Guido on 11-05-2022 Monocytes/100 WBC (Bld) 13.1 % 0-10 [facility] Blood platelet mean volumeOr dered By: Dianna Guido on 11-05-2022 Platelet mean volume (Bld) [Entitic vol] 9.8 fL 6.2-12.0 [facility] Determination of erythrocyte mean corpuscular volume (MCV)Ordered By: Dianna Guido on 11-05-2022 MCV (RBC) [Entitic vol] 89.9 fL 81-99 [facility] Hematocrit Auto (Bld) [Volum e fraction]Ordered By: Dianna Guido on 11-05-2022 Hematocrit (Bld) [Volume fraction] 47.3 % 37-47 [facility] Laboratory - Chemistry and C hemistry - challengeOrdered By: Dianna Guido on 11-05-2022 CO2 [Moles/Vol] 29.0 mmol/L 21.0-32.0 [facility] Urea nitrogen/Creatinine [Mass ratio] 9.3 mg/mg 10-20 [facility] Laboratory - Hematology and Cell countsOrdered By: Dianna Guido on 11-05-2022 Erythrocyte distribution width (RBC) [Entitic vol] 44.0 fL 35.1-43.9 [facility] Erythrocyte distribution width (RBC) [Ratio] 13.4 % 11.6-14.6 [facility] Immature granulocytes/100 WBC (Bld) 0.200 % 0.0-0.9 [facility] Comment on above: IG% - Immature Granu locytes (promyelocytes, myelocytes and metamyelocytes) > 1% indicates that a LEFT SHIFT is Present. MCH (RBC) [Entitic mass] 28.1 pg 27.0-32.0 [facility] Nucleated RBC/100 WBC (Bld) [Ratio] 0 % 0-5 [facility] MCHC Auto (RBC) [Mass/Vol]Or dered By: Dianna Guido on 11-05-2022 MCHC (RBC) [Mass/Vol] 31.3 g/dL 32-36 [facility] No Panel InformationOrdered By: Dianna Guido on 11-05-2022 Estimated GFR (MDRD) Amer 113 mL/min >60 [facility] Comment on above: GFR Calc Estimated GFR (MDRD) Non-Af Amer 94 mL/min >60 [facility] Comment on above: Non- GFR Calc Platelets bldOrdered By: Zita Guido on 11-05-2022 Platelets (Bld) [#/Vol] 239 10*3/uL 150-450 [facility] Serum or plasma calcium slava urement (mass/volume)Ordered By: Dianna Guido on 11-05-2022 Calcium [Mass/Vol] 9.0 mg/dL 8.5-10.1 [facility] Serum or plasma creatinine m easurement (mass/volume)Ordered By: Dianna Guido on 11-05-2022 Creatinine [Mass/Vol] 0.65 mg/dL 0.55-1.02 [facility] Comment on above: The validity of the calculated GFR & GFRAA in patients over 70 years has not been determined. Clinical correlation is essential. Serum or plasma urea nitroge n measurement (mass/volume)Ordered By: Dianna Guido on 11-05-2022 Urea nitrogen [Mass/Vol] 6 mg/dL 7-18 [facility] Thin prep Papanicolaou smear with manual screeningOrdered By: Dianna Guido on 11-05-2022 Thin prep Papanicolaou smear with manual screening 6 5-15 [facility] Absolute lymphocyte counton 04-06-2022 Lymphocytes Auto (Unsp spec) [#/Vol] 1.25 10*3/uL 0.83-4.51 [facility] Work Phone: Basophil percentageon 2021 Basophils/100 WBC (Bld) 0.4 % 0-1 [facility] Work Phone: Chloride [Moles/Vol] 100 mmol/L 98-107 [facility] Work Phone: Eosinophils/100 WBC (Bld) 0.7 % 0-5 [facility] Work Phone: [phone] Glucose [Mass/Vol] 116 mg/dL 74-106 [facility] Work Phone: Comment on above: Fasting Glucose resu lt from 100 to 125 mg/dL suggests IMPAIRED HOMEOSTASIS per A.D.A. criteria. Neutrophils (Bld) [#/Vol] 3.5 10*3/uL 2.0-7.7 [facility] Work Phone: Neutrophils/100 WBC (Bld) 60.5 % 47-70 [facility] Work Phone: [phone] Potassium [Moles/Vol] 4.4 mmol/L 3.5-5.1 [facility] Work Phone: [phone] Sodium [Moles/Vol] 135 mmol/L 136-145 [facility] Work Phone: [phone] WBC (Bld) [#/Vol] 5.7 10*3/uL 4.4-11.0 [facility] Work Phone: [phone] Blood erythrocytes count (nu mber/volume)on 04-06-2022 RBC (Bld) [#/Vol] 4.96 10*6/uL 4.2-5.4 [facility] Work Phone: [phone] Blood hemoglobin measurement (mass/volume)on 04-06-2022 Hemoglobin (Bld) [Mass/Vol] 14.0 g/dL 12.0-15.0 [facility] Work Phone: Blood lymphocytes/100 leukoc yteson 04-06-2022 Lymphocytes/100 WBC (Bld) 21.9 % 19-41 [facility] Work Phone: Blood monocytes/100 leukocyt eson 04-06-2022 Monocytes/100 WBC (Bld) 16.3 % 0-10 [facility] Work Phone: Blood platelet mean volumeon 04-06-2022 Platelet mean volume (Bld) [Entitic vol] 9.7 fL 6.2-12.0 [facility] Work Phone: Determination of erythrocyte mean corpuscular volume (MCV)on 04-06-2022 MCV (RBC) [Entitic vol] 89.5 fL 81-99 [facility] Work Phone: Hematocrit Auto (Bld) [Volum e fraction]on 04-06-2022 Hematocrit (Bld) [Volume fraction] 44.4 % 37-47 [facility] Work Phone: Laboratory - Chemistry and C hemistry - challengeon 04-06-2022 CO2 [Moles/Vol] 28.0 mmol/L 21.0-32.0 [facility] Work Phone: Urea nitrogen/Creatinine [Mass ratio] 19.6 mg/mg 10-20 [facility] Work Phone: Laboratory - Hematology and Cell countson 04-06-2022 Erythrocyte distribution width (RBC) [Entitic vol] 45.3 fL 35.1-43.9 [facility] Work Phone: Erythrocyte distribution width (RBC) [Ratio] 13.9 % 11.6-14.6 [facility] Work Phone: Immature granulocytes/100 WBC (Bld) 0.200 % 0.0-0.9 [facility] Work Phone: Comment on above: IG% - Immature Granu locytes (promyelocytes, myelocytes and metamyelocytes) > 1% indicates that a LEFT SHIFT is Present. MCH (RBC) [Entitic mass] 28.2 pg 27.0-32.0 [facility] Work Phone: Nucleated RBC/100 WBC (Bld) [Ratio] 0 % 0-5 [facility] Work Phone: MCHC Auto (RBC) [Mass/Vol]on 04-06-2022 MCHC (RBC) [Mass/Vol] 31.5 g/dL 32-36 [facility] Work Phone: No Panel Informationon 04-06 Estimated GFR (MDRD) Amer 101 mL/min >60 [facility] Work Phone: Comment on above: GFR Calc Estimated GFR (MDRD) Non-Af Amer 84 mL/min >60 [facility] Work Phone: Comment on above: Non- GFR Calc Platelets bldon 04-06-2022 Platelets (Bld) [#/Vol] 212 10*3/uL 150-450 [facility] Work Phone: Serum or plasma C reactive p rotein measurement (mass/volume)on 04-06-2022 CRP [Mass/Vol] 8.87 mg/L 0.0-3.0 [facility] Work Phone: Comment on above: C-Reactive Protein ( CRP) provides useful information for thediagnosis, therapy and monitoring of inflammatory processesand associated diseases. For the evaluation of Relative Riskfor Cardiovascular Disease, a High Sensitivity CRP (HSCRP)should be ordered. Serum or plasma calcium slava urement (mass/volume)on 04-06-2022 Calcium [Mass/Vol] 8.4 mg/dL 8.5-10.1 [facility] Work Phone: Serum or plasma creatinine m easurement (mass/volume)on 04-06-2022 Creatinine [Mass/Vol] 0.71 mg/dL 0.55-1.02 [facility] Work Phone: Comment on above: The validity of the calculated GFR & GFRAA in patients over 70 years has not been determined. Clinical correlation is essential. Serum or plasma urea nitroge n measurement (mass/volume)on 04-06-2022 Urea nitrogen [Mass/Vol] 14 mg/dL 7-18 [facility] Work Phone: Thin prep Papanicolaou smear with manual screeningon 04-06-2022 Thin prep Papanicolaou smear with manual screening 7 5-15 [facility] Work Phone: Absolute lymphocyte counton 03-11-2022 Lymphocytes Auto (Unsp spec) [#/Vol] 1.69 10*3/uL 0.83-4.51 [facility] Work Phone: Basophil percentageon 2021 Basophils/100 WBC (Bld) 1.1 % 0-1 [facility] Work Phone: Bilirubin [Mass/Vol] 1.80 mg/dL 0.20-1.00 [facility] Work Phone: Comment on above: For patients on eltr ombopag therapy, use of [employer] [place] TBIL is not recommended. Chloride [Moles/Vol] 107 mmol/L 98-107 [facility] Work Phone: Cholesterol [Mass/Vol] 131 mg/dL <200 [facility] Work Phone: Comment on above: <200 mg/dL Desirable 200-240 mg/dL Borderline >240 mg/dL High Risk Eosinophils/100 WBC (Bld) 3.7 % 0-5 [facility] Work Phone: Glucose [Mass/Vol] 96 mg/dL 74-106 [facility] Work Phone: Neutrophils (Bld) [#/Vol] 3.4 10*3/uL 2.0-7.7 [facility] Work Phone: Neutrophils/100 WBC (Bld) 54.8 % 47-70 [facility] Work Phone: Potassium [Moles/Vol] 4.0 mmol/L 3.5-5.1 [facility] Work Phone: Protein [Mass/Vol] 6.3 g/dL 6.4-8.2 [facility] Work Phone: Sodium [Moles/Vol] 143 mmol/L 136-145 [facility] Work Phone: Triglyceride [Mass/Vol] 111 mg/dL <199 [facility] Work Phone: Comment on above: The drugs N-Acetylcy steine and Metamizole may falsely depress this assay.Serum Triglycerides Reference Interval Normal <150 mg/dL Borderline high 150 - 199 mg/dL High 200 - 499 mg/dL Very High > or = 500 mg/dL WBC (Bld) [#/Vol] 6.2 10*3/uL 4.4-11.0 [facility] Work Phone: Blood erythrocytes count (nu mber/volume)on 03-11-2022 RBC (Bld) [#/Vol] 4.99 10*6/uL 4.2-5.4 [facility] Work Phone: Blood hemoglobin measurement (mass/volume)on 03-11-2022 Hemoglobin (Bld) [Mass/Vol] 13.7 g/dL 12.0-15.0 [facility] Work Phone: Blood lymphocytes/100 leukoc yteson 03-11-2022 Lymphocytes/100 WBC (Bld) 27.5 % 19-41 [facility] Work Phone: Blood monocytes/100 leukocyt eson 03-11-2022 Monocytes/100 WBC (Bld) 12.7 % 0-10 [facility] Work Phone: Blood platelet mean volumeon 03-11-2022 Platelet mean volume (Bld) [Entitic vol] 9.7 fL 6.2-12.0 [facility] Work Phone: Determination of erythrocyte mean corpuscular volume (MCV)on 03-11-2022 MCV (RBC) [Entitic vol] 91.0 fL 81-99 [facility] Work Phone: Hematocrit Auto (Bld) [Volum e fraction]on 03-11-2022 Hematocrit (Bld) [Volume fraction] 45.4 % 37-47 [facility] Work Phone: Laboratory - Chemistry and C hemistry - challengeon 03-11-2022 ALP [Catalytic activity/Vol] 73 U/L 45-117 [facility] Work Phone: [phone] ALT [Catalytic activity/Vol] 22 U/L 13-56 [facility] Work Phone: CO2 [Moles/Vol] 32.0 mmol/L 21.0-32.0 [facility] Work Phone: [phone] Globulin (S) [Mass/Vol] 3.2 g/dL 2.2-4.2 [facility] Work Phone: [phone] Magnesium [Mass/Vol] 2.3 mg/dL 1.6-2.6 [facility] Work Phone: [phone] Urea nitrogen/Creatinine [Mass ratio] 13.9 mg/mg 10-20 [facility] Work Phone: [phone] Laboratory - Hematology and Cell countson 03-11-2022 Erythrocyte distribution width (RBC) [Entitic vol] 45.4 fL 35.1-43.9 [facility] Work Phone: Erythrocyte distribution width (RBC) [Ratio] 13.5 % 11.6-14.6 [facility] Work Phone: Immature granulocytes/100 WBC (Bld) 0.200 % 0.0-0.9 [facility] Work Phone: [phone] Comment on above: IG% - Immature Granu locytes (promyelocytes, myelocytes and metamyelocytes) > 1% indicates that a LEFT SHIFT is Present. MCH (RBC) [Entitic mass] 27.5 pg 27.0-32.0 [facility] Work Phone: [phone] Nucleated RBC/100 WBC (Bld) [Ratio] 0 % 0-5 [facility] Work Phone: MCHC Auto (RBC) [Mass/Vol]on 03-11-2022 MCHC (RBC) [Mass/Vol] 30.2 g/dL 32-36 [facility] Work Phone: No Panel Informationon 03-11 Estimated GFR (MDRD) Amer 100 mL/min >60 [facility] Work Phone: Comment on above: GFR Calc Estimated GFR (MDRD) Non-Af Amer 83 mL/min >60 [facility] Work Phone: Comment on above: Non- GFR Calc Platelets bldon 03-11-2022 Platelets (Bld) [#/Vol] 267 10*3/uL 150-450 [facility] Work Phone: Serum or plasma albumin slava urement (mass/volume)on 03-11-2022 Albumin [Mass/Vol] 3.1 g/dL 3.2-5.0 [facility] Work Phone: Serum or plasma albumin/glob ulin mass ratioon 03-11-2022 Albumin/Globulin [Mass ratio] 1.0 {ratio} 0.9-2.4 [facility] Work Phone: Serum or plasma calcium slava urement (mass/volume)on 03-11-2022 Calcium [Mass/Vol] 8.7 mg/dL 8.5-10.1 [facility] Work Phone: Serum or plasma cholesterol in HDL measurement (mass/volume)on 03-11-2022 Cholesterol in HDL [Mass/Vol] 52 mg/dL >40 [facility] Work Phone: Comment on above: The drugs N-Acetylcy steine and Metamizole may falsely depress this assay. Reference Range HDL <40 mg/dL Low HDL Cholesterol HDL >or= 60 mg/dL High HDL Cholesterol Serum or plasma cholesterol in VLDL measurement (mass/volume)on 03-11-2022 Cholesterol in VLDL [Mass/Vol] 22 mg/dL 5-40 [facility] Work Phone: Serum or plasma creatinine m easurement (mass/volume)on 03-11-2022 Creatinine [Mass/Vol] 0.72 mg/dL 0.55-1.02 [facility] Work Phone: Comment on above: The validity of the calculated GFR & GFRAA in patients over 70 years has not been determined. Clinical correlation is essential. Serum or plasma low density lipoprotein (LDL) cholesterol measurement (mass/volume)on 03-11-2022 Cholesterol in LDL [Mass/Vol] 57 mg/dL 0-130 [facility] Work Phone: Serum or plasma urea nitroge n measurement (mass/volume)on 03-11-2022 Urea nitrogen [Mass/Vol] 10 mg/dL 7-18 [facility] Work Phone: Thin prep Papanicolaou smear with manual screeningon 03-11-2022 Thin prep Papanicolaou smear with manual screening 22 U/L 15-37 [facility] Work Phone: Thin prep Papanicolaou smear with manual screening 4 5-15 [facility] Work Phone: Absolute lymphocyte counton 11-19-2021 Lymphocytes Auto (Unsp spec) [#/Vol] 1.92 10*3/uL 0.83-4.51 [facility] Work Phone: Basophil percentageon 2021 Basophils/100 WBC (Bld) 0.5 % 0-1 [facility] Work Phone: Bilirubin [Mass/Vol] 2.00 mg/dL 0.20-1.00 [facility] Work Phone: Comment on above: For patients on eltr ombopag therapy, use of Dimension [place] TBIL is not recommended. Chloride [Moles/Vol] 105 mmol/L 98-107 [facility] Work Phone: Cholesterol [Mass/Vol] 147 mg/dL <200 [facility] Work Phone: Comment on above: <200 mg/dL Desirable 200-240 mg/dL Borderline >240 mg/dL High Risk Eosinophils/100 WBC (Bld) 2.5 % 0-5 [facility] Work Phone: [phone] Glucose [Mass/Vol] 89 mg/dL 74-106 [facility] Work Phone: Neutrophils (Bld) [#/Vol] 4.6 10*3/uL 2.0-7.7 [facility] Work Phone: Neutrophils/100 WBC (Bld) 61.2 % 47-70 [facility] Work Phone: [phone] Potassium [Moles/Vol] 3.4 mmol/L 3.5-5.1 [facility] Work Phone: Protein [Mass/Vol] 7.0 g/dL 6.4-8.2 [facility] Work Phone: Sodium [Moles/Vol] 140 mmol/L 136-145 [facility] Work Phone: Triglyceride [Mass/Vol] 108 mg/dL <199 [facility] Work Phone: [phone] Comment on above: The drugs N-Acetylcy steine and Metamizole may falsely depress this assay.Serum Triglycerides Reference Interval Normal <150 mg/dL Borderline high 150 - 199 mg/dL High 200 - 499 mg/dL Very High > or = 500 mg/dL WBC (Bld) [#/Vol] 7.5 10*3/uL 4.4-11.0 [facility] Work Phone: Blood erythrocytes count (nu mber/volume)on 11-19-2021 RBC (Bld) [#/Vol] 5.13 10*6/uL 4.2-5.4 [facility] Work Phone: Blood hemoglobin measurement (mass/volume)on 11-19-2021 Hemoglobin (Bld) [Mass/Vol] 14.4 g/dL 12.0-15.0 [facility] Work Phone: Blood lymphocytes/100 leukoc yteson 11-19-2021 Lymphocytes/100 WBC (Bld) 25.5 % 19-41 [facility] Work Phone: Blood monocytes/100 leukocyt eson 11-19-2021 Monocytes/100 WBC (Bld) 10.0 % 0-10 [facility] Work Phone: Blood platelet mean volumeon 11-19-2021 Platelet mean volume (Bld) [Entitic vol] 9.6 fL 6.2-12.0 [facility] Work Phone: Determination of erythrocyte mean corpuscular volume (MCV)on 11-19-2021 MCV (RBC) [Entitic vol] 88.9 fL 81-99 [facility] Work Phone: Hematocrit Auto (Bld) [Volum e fraction]on 11-19-2021 Hematocrit (Bld) [Volume fraction] 45.6 % 37-47 [facility] Work Phone: Laboratory - Chemistry and C hemistry - challengeon 11-19-2021 ALP [Catalytic activity/Vol] 83 U/L 45-117 [facility] Work Phone: ALT [Catalytic activity/Vol] 22 U/L 13-56 [facility] Work Phone: CO2 [Moles/Vol] 29.0 mmol/L 21.0-32.0 [facility] Work Phone: Globulin (S) [Mass/Vol] 3.5 g/dL 2.2-4.2 [facility] Work Phone: Magnesium [Mass/Vol] 2.3 mg/dL 1.6-2.6 [facility] Work Phone: Urea nitrogen/Creatinine [Mass ratio] 15.4 mg/mg 10-20 [facility] Work Phone: Laboratory - Hematology and Cell countson 11-19-2021 Erythrocyte distribution width (RBC) [Entitic vol] 43.1 fL 35.1-43.9 [facility] Work Phone: Erythrocyte distribution width (RBC) [Ratio] 13.2 % 11.6-14.6 [facility] Work Phone: Immature granulocytes/100 WBC (Bld) 0.300 % 0.0-0.9 [facility] Work Phone: Comment on above: IG% - Immature Granu locytes (promyelocytes, myelocytes and metamyelocytes) > 1% indicates that a LEFT SHIFT is Present. MCH (RBC) [Entitic mass] 28.1 pg 27.0-32.0 [facility] Work Phone: Nucleated RBC/100 WBC (Bld) [Ratio] 0 % 0-5 [facility] Work Phone: MCHC Auto (RBC) [Mass/Vol]on 11-19-2021 MCHC (RBC) [Mass/Vol] 31.6 g/dL 32-36 [facility] Work Phone: No Panel Informationon 11-19 Estimated GFR (MDRD) Amer 102 mL/min >60 [facility] Work Phone: Comment on above: GFR Calc Estimated GFR (MDRD) Non-Af Amer 84 mL/min >60 [facility] Work Phone: Comment on above: Non- GFR Calc Vitamin D 25-Hydroxy 51.6 ng/mL [facility] Work Phone: Comment on above: Vitamin D 25(OH) Sta tus Range Deficiency <20 ng/mL (50nmol/L) Insufficiency 20 - 30 ng/mL (50 - 75 nmol/L) Sufficiency 30 - 100 ng/mL (75 - 250 nmol/L) Toxicity >100 ng/mL (>250 nmol/L) Platelets bldon 11-19-2021 Platelets (Bld) [#/Vol] 277 10*3/uL 150-450 [facility] Work Phone: Serum or plasma albumin slava urement (mass/volume)on 11-19-2021 Albumin [Mass/Vol] 3.5 g/dL 3.2-5.0 [facility] Work Phone: Serum or plasma albumin/glob ulin mass ratioon 11-19-2021 Albumin/Globulin [Mass ratio] 1.0 {ratio} 0.9-2.4 [facility] Work Phone: Serum or plasma calcium slava urement (mass/volume)on 11-19-2021 Calcium [Mass/Vol] 9.1 mg/dL 8.5-10.1 [facility] Work Phone: Serum or plasma cholesterol in HDL measurement (mass/volume)on 11-19-2021 Cholesterol in HDL [Mass/Vol] 63 mg/dL >40 [facility] Work Phone: Comment on above: The drugs N-Acetylcy steine and Metamizole may falsely depress this assay. Reference Range HDL <40 mg/dL Low HDL Cholesterol HDL >or= 60 mg/dL High HDL Cholesterol Serum or plasma cholesterol in VLDL measurement (mass/volume)on 11-19-2021 Cholesterol in VLDL [Mass/Vol] 22 mg/dL 5-40 [facility] Work Phone: Serum or plasma creatinine m easurement (mass/volume)on 11-19-2021 Creatinine [Mass/Vol] 0.71 mg/dL 0.55-1.02 [facility] Work Phone: Comment on above: The validity of the calculated GFR & GFRAA in patients over 70 years has not been determined. Clinical correlation is essential. Serum or plasma low density lipoprotein (LDL) cholesterol measurement (mass/volume)on 11-19-2021 Cholesterol in LDL [Mass/Vol] 62 mg/dL 0-130 [facility] Work Phone: Serum or plasma urea nitroge n measurement (mass/volume)on 11-19-2021 Urea nitrogen [Mass/Vol] 11 mg/dL 7-18 [facility] Work Phone: Thin prep Papanicolaou smear with manual screeningon 11-19-2021 Thin prep Papanicolaou smear with manual screening 27 U/L 15-37 [facility] Work Phone: Thin prep Papanicolaou smear with manual screening 6 5-15 [facility] Work Phone: Culture, urineon 08-17-2021 Bacteria identified Cx Nom (U) Enterococcus faecalis [facility] Work Phone: CBC (NO DIFF)on 11-24-2019 CBC (NO DIFF) Normal [facility] Comment on above: Result Comment: CBC( WITHOUT DIFFERENTIAL) Performed By: #### 2 [id number] #### [facility],[address] [place] [address] 84057 Erythrocyte distribution width (RBC) [Ratio] 13.9 % Normal 12.0 - 15.6 [facility] Comment on above: Performed By: #### 2 [id number] #### [facility],[address] [place] [address] 33111 Hematocrit (Bld) [Volume fraction] 44.1 % Normal 34.0 - 46.0 [facility] Comment on above: Performed By: #### 2 [id number] #### [facility],[address] [place] [address] 56722 Hemoglobin (Bld) [Mass/Vol] 15.0 g/dL Normal 12.0 - 16.0 [facility] Comment on above: Performed By: #### 2 [id number] #### [facility],[address] [place] [address] 29765 MCH (RBC) [Entitic mass] 30 pg Normal 27 - 33 [facility] Comment on above: Performed By: #### 2 [id number] #### [facility],[address] [place] [address] 58693 MCHC (RBC) [Mass/Vol] 34 X10 3 Normal 32 - 36 [facility] Comment on above: Performed By: #### 2 [id number] #### [facility],[address] [place] [address] 13021 MCV (RBC) [Entitic vol] 87 fL Normal 80 - 99 [facility] Comment on above: Performed By: #### 2 [id number] #### [facility],[address] [place] [address] 34577 Platelet mean volume (Bld) [Entitic vol] 7.5 fL Normal 6.6 - 10.5 [facility] Comment on above: Performed By: #### 2 [id number] #### [facility],[address] [place] [address] 18173 Platelets (Bld) [#/Vol] 263 x10EE3/UL Normal 150 - 450 [facility] Comment on above: Performed By: #### 2 [id number] #### [facility],[address] [place] [address] 57415 RBC (Bld) [#/Vol] 5.09 x 10EE6/UL Normal 4.10 - 5.30 [facility] Comment on above: Performed By: #### 2 [id number] #### [facility],[address] [place] [address] 49835 WBC (Bld) [#/Vol] 7.5 x 10EE3/UL Normal 4.5 - 10.8 [facility] Comment on above: Performed By: #### 2 75962 #### [facility],[address] [place] [address] 24645 CMP with eGFRon 11-24-2019 Age - Reported 79 years Normal [facility] Comment on above: Performed By: #### 2 [id number] #### [facility],[address] [place] [address] 47435 Albumin [Mass/Vol] 4.3 g/dL Normal 3.4 - 4.8 [facility] Comment on above: Performed By: #### 2 [id number] #### [facility],[address] [place] [address] 92475 Albumin/Globulin [Mass ratio] 1.5 {ratio} Normal 0.9 - 1.6 [facility] Comment on above: Performed By: #### 2 [id number] #### [facility],[address] [place] [address] 65647 ALK PHOS 56 U/L Normal 38 - 126 [facility] Comment on above: Performed By: #### 2 [id number] #### [facility],[address] [place] [address] 89924 ALT/SGPT 14 U/L Normal 8 - 35 [facility] Comment on above: Performed By: #### 2 [id number] #### [facility],[address] [place] [address] 17840 Anion gap [Moles/Vol] 11 mmol/L Normal 10 - 20 [facility] Comment on above: Performed By: #### 2 [id number] #### [facility],[address] [place] [address] 18595 AST/SGOT 22 U/L Normal 13 - 39 [facility] Comment on above: Performed By: #### 2 [id number] #### [facility],[address] [place] [address] 96263 B/C RATIO 18 ratio Normal 0 - 30 [facility] Comment on above: Performed By: #### 2 [id number] #### [facility],[address] [place] [address] 83605 Bilirubin [Mass/Vol] 1.8 mg/dL High 0.0 - 1.5 [facility] Comment on above: Performed By: #### 2 [id number] #### [facility],[address] [place] [address] 08624 Calcium [Mass/Vol] 9.6 mg/dL Normal 8.6 - 10.2 [facility] Comment on above: Performed By: #### 2 [id number] #### [facility],[address] [place] [address] 62483 Chloride [Moles/Vol] 100 mmol/L Normal 98 - 107 [facility] Comment on above: Performed By: #### 2 [id number] #### [facility],[address] [place] [address] 82762 CO2 [Moles/Vol] 28.8 mmol/L Normal 21.0 - 31.0 [facility] Comment on above: Performed By: #### 2 [id number] #### [facility],[address] [place] [address] 84413 Creatinine [Mass/Vol] 0.6 mg/dL Normal 0.6 - 1.2 [facility] Comment on above: Performed By: #### 2 [id number] #### [facility],[address] [place] [address] 28754 GFR/1.73 sq M predicted among non-blacks MDRD (S/P/Bld) [Vol rate/Area] mL/min/{1.73_m2} Normal 60 - 999 [facility] Comment on above: Result Comment: ACCO RDING TO THE NATIONAL KIDNEY DISEASE EDUCATION PROGRAM(NKDE), A NORMAL eGFR IS A VALUE GREATER THAN OR EQUAL TO 60 ML/MIN/1.73 SQ METERS. CHRONIC KIDNEY DISEASE: <60mL/MIN/1.73 SQ METERS KIDNEY FAILURE: <15mL/MIN/1.73 SQ METERS THIS TEST SHOULD ONLY BE USED FOR PATIENTS 18 YEARS OF AGE AND OLDER. Performed By: #### 2 [id number] #### [facility],[address] [place] [address] 67127 GFR/1.73 sq M predicted among non-blacks MDRD (S/P/Bld) [Vol rate/Area] Normal [facility] Comment on above: Result Comment: COMP REHENSIVE METABOLIC PANEL Performed By: #### 2 [id number] #### [facility],[address] [place] [address] 91078 Globulin (S) [Mass/Vol] 2.9 g/dL Normal 1.5 - 3.8 [facility] Comment on above: Performed By: #### 2 74031 #### [facility],[address] [place] [address] 74433 Glucose [Mass/Vol] 90 mg/dL Normal 74 - 106 [facility] Comment on above: Performed By: #### 2 [id number] #### [facility],[address] [place] [address] 67367 Potassium [Moles/Vol] 3.8 mmol/L Normal 3.5 - 5.1 [facility] Comment on above: Performed By: #### 2 [id number] #### [facility],[address] [place] [address] 13634 Protein [Mass/Vol] 7.2 g/dL Normal 6.4 - 8.3 [facility] Comment on above: Performed By: #### 2 [id number] #### [facility],[address] [place] [address] 18517 Sodium [Moles/Vol] 136 mmol/L Normal 136 - 145 [facility] Comment on above: Performed By: #### 2 [id number] #### [facility],[address] [place] [address] 14347 Urea nitrogen [Mass/Vol] 11 mg/dL Normal 6 - 20 [facility] Comment on above: Performed By: #### 2 [id number] #### [facility],[address] [place] [address] 38123 Culture, urine Bacteria identified Cx Nom (U) Enterococcus faecalis [facility] Work Phone: Vital Signs Date Time Vital [...] 20.05 kg/m2 Alicia Nava MD Work Phone: [facility] 01-31-2025 04:47-0400 Body weight 61.6 kg Alicia Nava MD Work Phone: [facility] 01-25-2025 18:06-0400 Heart rate 82 /min Alicia Nava MD Work Phone: [facility] 01-25-2025 12:05-0400 Body height 175.3 cm Alicia Nava MD Work Phone: [facility] 01-25-2025 10:43-0400 Diastolic blood pressure 74 mm[Hg] Dr. Karen Lang MD Work Phone: [facility] 01-25-2025 10:43-0400 Heart rate 84 /min Dr. Karen Lang MD Work Phone: [facility] 01-25-2025 10:43-0400 Respiratory rate 15 /min Dr. Karen Lang MD Work Phone: [facility] 01-25-2025 10:43-0400 SaO2% (BldA) [Mass fraction] 96 % Dr. Karen Lang MD Work Phone: [facility] 01-25-2025 10:43-0400 Systolic blood pressure 110 mm[Hg] Dr. Karen Lang MD Work Phone: [facility] 01-25-2025 09:43-0400 Body temperature 98.4 [degF] Dr. Karen Lang MD Work Phone: [facility] 01-24-2025 21:15-0400 Body height 172.[address] Karen Lang MD Work Phone: [facility] 01-24-2025 21:15-0400 Body mass index (BMI) [Ratio] 19.8 kg/m2 Dr. Karen Lang MD Work Phone: [facility] 01-24-2025 21:15-0400 Body weight 59.[address] Karen Lang MD Work Phone: [facility] 06-25-2023 14:01-0500 Body mass index (BMI) [Ratio] 21 kg/m2 [facility] 06-25-2023 14:01-0500 Body temperature 96.7 [degF] [facility] 06-25-2023 14:01-0500 Diastolic blood pressure 75 mm[Hg] [facility] 06-25-2023 14:01-0500 Heart rate 83 /min [facility] 06-25-2023 14:01-0500 Respiratory rate 16 /min [facility] 06-25-2023 14:01-0500 Systolic blood pressure 125 mm[Hg] [facility] 06-11-2023 13:11-0500 Body mass index (BMI) [Ratio] 21 kg/m2 [facility] 06-11-2023 13:11-0500 Diastolic blood pressure 69 mm[Hg] [facility] 06-11-2023 13:11-0500 Heart rate 83 /min [facility] 06-11-2023 13:11-0500 Respiratory rate 18 /min [facility] 06-11-2023 13:11-0500 Systolic blood pressure 123 mm[Hg] [facility] 06-09-2023 00:26-0500 Body temperature 98.7 [degF] [facility] 06-09-2023 00:26-0500 Body weight 62.77 kg [facility] 06-04-2023 13:12-0500 Body mass index (BMI) [Ratio] 21 kg/m2 [facility] 06-04-2023 13:12-0500 Body temperature 98.7 [degF] [facility] 06-04-2023 13:12-0500 Diastolic blood pressure 67 mm[Hg] [facility] 06-04-2023 13:12-0500 Heart rate 89 /min [facility] 06-04-2023 13:12-0500 Respiratory rate 20 /min [facility] 06-04-2023 13:12-0500 Systolic blood pressure 116 mm[Hg] [facility] 05-28-2023 13:02-0500 Body mass index (BMI) [Ratio] 21 kg/m2 [facility] 05-28-2023 13:02-0500 Diastolic blood pressure 88 mm[Hg] [facility] 05-28-2023 13:02-0500 Heart rate 90 /min [facility] 05-28-2023 13:02-0500 Respiratory rate 16 /min [facility] 05-28-2023 13:02-0500 Systolic blood pressure 131 mm[Hg] [facility] 05-21-2023 13:12-0500 Body height 172.72 cm [facility] 05-21-2023 13:12-0500 Body temperature 96.8 [degF] [facility] 05-21-2023 13:12-0500 Body weight 62.77 kg [facility] Encounters Encounter Date Encounter Type Care Provider Facility Start: 04-13-2025 End: 04-13-2025 Telephone encounter Asmita Allen RN [facility] Start: 04-08-2025 ambulatory Dianna Gudla Facility:[facility] Start: 04-06-2025 End: 04-06-2025 Telephone encounter Asmita Allen RN [facility] Start: 04-04-2025 ambulatory Dianna Gudla OLS Facili ty:[facility] Start: 03-30-2025 End: 03-30-2025 ambulatory Dianna Gudla OLS Facility:[facility] Start: 02-25-2025 End: 02-25-2025 Letter encounter Gi Provider [facility] Start: 02-23-2025 End: 02-23-2025 Refill Isauro Page MD Work Phone: [facility] Comment on above: Refill Start: 02-23-2025 ambulatory ISAURO PAGE Facilit y:[facility] Start: 02-16-2025 End: 02-16-2025 ambulatory Dianna Gudla OLS Facility:[facility] Start: 02-14-2025 End: 02-14-2025 Admission to same day surgery center Isauro Page MD Work Phone: [facility] Start: 02-09-2025 End: 02-09-2025 Admission to same day surgery center Isauro Page MD Work Phone: [facility] Start: 02-09-2025 End: 02-09-2025 ambulatory Dianna Gudla OLS Facility:[facility] Start: 02-02-2025 End: 02-02-2025 ambulatory [facility] Gudla Facility:[facility] Start: 02-01-2025 End: 02-01-2025 Telephone encounter Anselmo Whittaker MD Work Phone: [facility] Start: 01-28-2025 ambulatory NORA HAYS Facility:[facility] Start: 01-27-2025 ambulatory UNKNOWN PROVIDER Facili ty:[facility] Start: 01-25-2025 End: 01-25-2025 Telephone encounter [...] Start: 01-25-2025 End: 01-25-2025 ambulatory UNKNOWN PROVIDER Facility:[facility] Start: 01-25-2025 Evaluation and manag ement of inpatient UNKNOWN PROVIDER Facility:[facility] Start: 01-24-2025 End: 01-25-2025 Emergency department patient visit Dr. Karen Lang MD Work Phone: -Emergency Department Work Phone: Start: 11-08-2024 End: 11-08-[address] Karen Lang MD Work Phone: [facility] Work Phone: Start: 11-08-2024 End: 11-08-[address] Dianna Guido MD -[facility] Work Phone: Start: 11-08-2024 End: 11-08-2024 ambulatory Karenyves Lang Facility:[facility] Start: 10-04-[address] Start: 10-04-[address] Dianna Guido MD -[facility] Work Phone: Start: 05-31-2024 End: 05-31-[address] [facility] Start: 06-25-2023 End: 07-09-2023 ambulatory [facility] Work Phone: Start: 06-25-2023 End: 07-09-2023 Discharged Recurring [facility] Work Phone: Start: 06-11-2023 Registered Recurring [facility] Work Phone: Start: 06-04-2023 End: 06-08-2023 ambulatory [facility] Work Phone: Start: 06-04-2023 End: 06-08-2023 Discharged Recurring [facility] Work Phone: Start: 05-28-2023 Registered Recurring [facility] Work Phone: Start: 05-19-2023 End: 05-19-2023 ambulatory [facility] Work Phone: Start: 05-19-2023 End: 05-19-2023 Departed Referred [facility] Work Phone: Start: 05-16-2023 End: 05-16-2023 ambulatory [facility] Work Phone: Start: 05-16-2023 End: 05-16-2023 Departed Referred [facility] Start: 05-16-2023 Registered Referred [facility] Start: 05-14-2023 End: 05-14-2023 ambulatory [facility] Work Phone: Start: 05-14-2023 End: 05-14-2023 Departed Referred [facility] [place] Work Phone: Start: 04-28-2023 End: 04-28-2023 ambulatory [facility] Work Phone: Start: 04-28-2023 End: 04-28-2023 Departed Referred [facility] [place] Work Phone: Start: 03-26-2023 End: 03-26-2023 ambulatory [facility] Work Phone: Start: 03-26-2023 End: 03-26-[address] [facility] Work Phone: Start: 02-27-2023 End: 02-27-[address] [facility] Work Phone: Start: 02-27-2023 Registered Referred [facility] Work Phone: Start: 01-03-2023 End: 01-03-2023 ambulatory [facility] Work Phone: Start: 01-03-2023 End: 01-03-2023 Departed Referred [facility] [place] Work Phone: Start: 12-24-2022 End: 12-24-2022 Departed Referred [facility] [place] Work Phone: Start: 11-05-2022 Registered Referred [facility] Work Phone: Start: 04-06-2022 End: 04-06-2022 ambulatory [facility] Work Phone: Start: 04-06-2022 End: 04-06-2022 Departed Referred [facility] [place] Start: 03-11-2022 End: 03-11-2022 Departed Referred [facility] [place] Start: 11-19-2021 End: 11-19-2021 Departed Referred [facility] [place] Start: 08-17-2021 End: 08-17-2021 Departed Referred [facility] [place] Start: 09-05-2020 End: 09-05-[address] [facility] Start: 08-11-2020 End: 08-11-2020 Patient encounter procedure MAMTA Benson [facility] Start: 11-24-2019 End: 11-24-2019 Patient encounter procedure MIKE MONTIEL [facility] Start: 11-05-2019 Encounter for genera l adult medical examination without abnormal findings PAUL [facility] Start: 11-05-2019 Patient encounter procedure PAUL GARCIA [facility] Procedures Date Procedure Procedure Detail Performing [...] img Wilbert Pérez MD Work Phone: Start: 4 End: 01-25-2025 Blood typing serologic abo Daniel [...] artery (HCC) Expected: 05/04/2025, Expires: 02/01/2026 [facility] Work Phone: Comment on above: Expected: 05/04/2025, Expires: Start: 04-18-2025 End: 04-18-2025 Admission to same day surgery center 04/18/2025 9:00 AM EST - 04/18/2025 10:30 AM EST Surgery [facility] [address] [place] [address] Isauro Page MD [address] [place] [address] [place] [address] COL[facility]OSCOPY + FTR [facility] Comment on above: COLONOSCOPY + FTR 90 Start: 04-18-2025 End: 04-18-2025 Colonoscopy flx dx w/collj spec when pfrmd COLONOSCOPY Adenomatous polyp of ascending colon 04/18/2025 9:00 AM EST [facility] Start: 04-18-2025 Subsequent hospital visit by physician 04/18/2025 9:00 AM EST Hospital Encounter [facility] [address] [place] [address] Isauro Page MD [address] [place] [address] [place] [address] [facility] Suite [...] [facility] Start: 01-25-2025 Administration of blood product [facility] Start: 01-25-2025 [facility] Start: 01-24-2025 [facility] Start: 01-07-2025 Welcome to Medicare Visit (G0402) Welcome to Medicare Visit (G0402) [facility] Start: 02-08-2024 COVID-19 Vaccine ( season) COVID-19 Vaccine ( season) [facility] Start: 05-22-2023 Microbial culture, routine Wound Culture [facility] Start: 05-22-2023 [facility] Start: 2017 RSV vaccine (adult) (1 - [...] A (HAV) Vaccine (optional start 19+ years) [facility] Start: 1960 Tdap Booster Tdap Booster [facility] Comment on above: Release Upon Ordering for 1 Occurrences starting 01/27/2025, 1 completed CBC W Auto Different ial panel - Blood COMPLETE BLOOD COUNT W/DIFF Lab Routine Daily until discontinued starting 01/26/2025, 6 completed [facility] Work Phone: Comment on above: Daily [...] Fungus identified in Unspecified specimen by Culture [facility] End: 01-25-2025 Guidance for embolization of Artery [facility] [employer] Work Phone: Comment on above: Today for 1 Occurrences starting 025 until 01/25/2025 Lactic acid measurement [facility] Patient referral [facility] Work Phone: End: 01-28-2025 RFA Celiac artery Views W contrast [facility] Comment on above: Today for 1 Occurrences starting 025 until 01/28/2025 End: 01-28-2025 RFA Vessels Views W contrast IA [facility] Comment on above: Today for 1 Occurrences starting 025 until 01/28/2025 End: 01-27-2025 Surgical pathology procedure [facility] Work Phone: Comment on above: One time for 1 Occurrences starting 01/08 until 01/27/2025 Release Upon Orderin g for 1 Occurrences starting 01/27/2025 Payers Date Payer Category Payer Medicare (Managed Care) [facility] - MEDICARE [id number] 2024 Medicaid HMO [employer] MEDICAID [id number] 2024 Unknown [id number] 2024 Medicaid [id number] 2024 Self-pay [id number] 2024 Unknown [id number] 1940 Unknown [id number] 2.16840.1.320159.3.579.2. 651 1942 Unknown [id number] 2.16840.1.646618.3.579.2. 65 1942 Unknown [id number] 2.16.840.1.235537.3.579.2. 651 1942 Unknown [id number] 2.16840.1.803128.3.579.2. 65 1942 Unknown [id number] 2.16.840.1.782082.3.579.2. 651 1942 Unknown [id number] 2.840.1.380814.3.579.2. 732 1942 Unknown [id number] 2.840.1.329065.3.579.2. 732 1942 Unknown [id number] 2.0.1.671311.3.579.2. 73 1942 Unknown [id number] 2.840.1.709421.3.579.2. 732 1942 Unknown [id number] 2.0.1.062486.3.579.2. 732 1942 Unknown [id number] 20.1.400318.3.579.2. 73 Blue Cross Blue Shield [id number] Medicare [id number] Medicare [id number] Unknown [id number] Unknown [id number] Unknown [id number] 840.1.008523.3.579.2. 462 Unknown [id number] .840.1.174162.3.579.2. 462 Unknown [id number] .840.1.602192.3.579.2. 462 Unknown [id number] 2.840.1.782510.3.579.2. 462 Unknown [id number] 2.840.1.969163.3.579.2. 462 Unknown [id number] 2.840.1.034956.3.579.2. 462 Unknown [id number] 2.840.1.387587.3.579.2. 462 Unknown [id number] 2.840.1.967762.3.579.2. 462 Unknown [id number] 2.840.1.794545.3.579.2. 462 Unknown [id number] 2.0.1.897190.3.579.2. 462 Unknown [id number] 2.0.1.534577.3.579.2. 462 Social History Date Type Detail Facility Start: 12-24-2019 End: 05-21-2023 Tobacco smoking status KSIS Unknown if ever smoked [facility] Start: 12-24-2019 None [facility] Start: 12-24-2019 Spouse/ Signif icant Other [facility] Start: 02-08-2020 Non-smoker [facility] Start: 1940 Sex Assigned At Female W [facility] Start: 05-21-2023 End: 01-24-2025 Tobacco smoking status NHIS Never smoked tobacco (finding) [facility] Start: 1940 Sex assigned at [facility] on file [facility] Start: 01-25-2025 Sex Female (finding) [facility] Start: 01-25-2025 Gender identity Not on file [facility] Start: 01-25-2025 History of Social function [facility] Has the scrible, Vindicia, sourceasy, or water [employer] threatened to shut off services in your [...] Coil Embl 60cm . 02in 14mm Ea1 [id number] - [id number] Start: 01-28-2025 Coil Embl 30cm . 02in 6mm Ea1 [id number] - [id number] Start: 01-28-2025 Coil Embl 30cm . 02in 6mm Ea1 [id number] - [id number] Start: 01-28-2025 Coil Embl 20cm . 02in 6mm Araceli Ea1 Ptd4v3553 - [id number] Start: 01-28-2025 Coil Embl 60cm . 02in 18mm Araceli Ea1 [id number] - [id number] Start: 01-28-2025 Coil Embl 60cm . 02in 12mm Ea1 [id number] - [id number] Start: 01-28-2025 Coil Embl 60cm . 02in 12mm Ea1 [id number] - [id number] Start: 01-28-2025 Coil Embl 30cm P od Pk J-Sft Ea1 Dpirwty92 - [id number] Start: 01-28-2025 Coil Embl 35cm . 02in 10mm Ea1 [id number] - [id number] Start: 01-28-2025 Coil Embl 40cm . 02in 8mm Ea1 [id number] - [id number] Start: 01-28-2025 Coil Embl 45cm P od Pk J-Sft Ea1 Hvyrksu35 - [id number] Start: 01-28-2025 Coil Embl 25cm . 02in 8mm Ea1 [id number] - [id number] Start: 01-28-2025 Clinical Notes 05-21-2023 to [...] appointment in the Interventional Radiology Clinic call [phone] option 3. If you notice more rectal [...] [facility] 01-31-2025 Note DISCHARGE SUMMARY [place] [address] Ely Hurtado 84 year old female 1940 [...] of HTN, HLD, DVT (Eliquis) transferred from [facility] for urgent vascular intervention for incidental [...] to assisted living after PT/OT re-evaluation with [facility] in hemodynamically stable condition. TODO: [] [...] Referral Type: Service Level Authorization Referral Location: [facility] PRE ADMISSION TESTING Number of Visits Requested: 1 Expiration Date: 01/26/26 PRE-ADMISSION TESTING CONSULT Referral Priority: Routine Referral Type: Service Level Authorization Referral Location: [facility] PRE ADMISSION TESTING Number of Visits Requested: 1 Expiration Date: 01/26/26 HOME CARE SERVICE REQUEST Referral Priority: Routine Referral Type: Home Health Referral Referral Location: [facility] Number of Visits Requested: 3 Expiration Date: 01/31/26 FOLLOW UP IN PRIM (more content not included)... [facility] 01-31-2025 Hospital course Narrative Images from the original note were not included. DISCHARGE SUMMARY [address] [address] Ely Hurtado 84 year old female 1940 [...] to assisted living after PT/OT re-evaluation with [facility] in hemodynamically stable condition. TODO: [] [...] Referral Type: Service Level Authorization Referral Location: [facility] PRE ADMISSION TESTING Number of Visits Requested: 1 Expiration Date: 01/26/26 PRE-ADMISSION TESTING CONSULT Referral Priority: Routine Referral Type: Service Level Authorization Referral Location: [facility] PRE ADMISSION TESTING Number of Visits Requested: 1 Expiration Date: 01/26/26 HOME CARE SERVICE REQUEST Referral Priority: Routine Referral Type: Home Health Referral Referral Location: [facility] Number of Visits Requested: 3 Expiration Date: 01/31/26 FOLLOW UP IN PRIMARY CARE INTERVENTIONAL RAD CLINIC REFERRAL Referral Priority: Routine Referral Type: Radiology Referral Location: [facility] INTERVENTIONAL RAD Number of Visits Requested: [...] from the medicare.gov compare site for HHC. Mullan of Choice was provided to the patient/patient call center support representative. CM to follow up with accepting agencies. CM to continue to follow. ADDENDUM: CM spoke with Dbera Campbell from [facility] and she states that the patient can receive therapy under Medicare part B from PT at her AL if she so wishes. CM will continue to follow additional discharge planning needs. ADDENDUM: CM spoke with Pt son and notified him that patient would be discharge back to her AL today. Son stated that he would be at to excelsior picker pt and transport her back to [facility] after 5pm. CM will continue to follow. Breanna Wilder MSN, RN Inpatient Manager Of Human Resources 7E/7W Cell [phone] Desk [phone] [facility] 01-31-2025 Miscellaneous Notes SW/CM aware that patient meets criteria for HHC. Spoke with Pts son over the phone to discuss dispo. Patient open and agreeable to HHC. CM provided Pt son the quality and resource use measure data from available post-acute (PAC) providers, that best align with the patient's treatment goals and preferences from the medicare.gov compare site for HHC. Mullan of Choice was provided to the patient/patient call center support representative. CM to follow up with accepting agencies. CM to continue to follow. ADDENDUM: CM spoke with Debra Campbell from [facility] and she states that the patient can receive therapy under Medicare part B from PT at her AL if she so wishes. CM will continue to follow additional discharge planning needs. ADDENDUM: CM spoke with Pt son and notified him that patient would be discharge back to her AL today. Son stated that he would be at to excelsior picker pt and transport her back to [facility] after 5pm. CM will continue to follow. Breanna Wilder MSN, RN Inpatient Manager Of Human Resources /7W Cell [phone] Desk [phone] Associated Problem(s): Aneurysm of hepatic artery (HCC) [...] care --pharmacy dispense reports has been on [employer] since 02/11/2024 --Eliquis currently held since 01/23/2025, [...] care --pharmacy dispense reports has been on [employer] since 02/11/2024 --Eliquis currently held since 01/23/2025, [...] an 84 year old (Full Code) Room: [facility]/1 N [id number] 1940 FROM Step down unit TO Medicine [...] currently resides at [facility] ([facility]) where she was found to have significant bright red blood in her stool following multiple episodes of diarrhea on the morning of 01/24. They were transferred to the [facility] ED later that day for further evaluation. 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 Nelda James DO Family Medicine, PGY2 FM Pager: [phone] Spoke with Pt's son and daughter in [...] from the medicare.gov compare site for SNF. Mullan of Choice was provided to the patient/patient call center support representative. For SNF: RN/MD to complete [employer]. Signature page placed on patient's chart for MD signature. [id number] initiated in HENS Pt will require a pre-cert/LOC. SW/CM will follow up for choices. Referral sent to [facility] which is the sister SNF for [facility]. CM will continue to follow Breanna VALLEJO, RN Inpatient Manager Of Human Resources 7E/7W Cell [phone] Desk [phone] I tried at least thrice to reach her son to update on her colonoscopy but with no avail. Ely Hurtado 84 year old Surgical Contact Serial Number: [id number] Location: ENDO ADD ON PROCEDURE Date: 01/27/2025 Mounter: Juan Parikh MD Attending:Adrien Caraballo MD Procedure(s): [...] transillumination of right lower quadrant. Prep was Radcliffe Bowel Prep Right Colon: Entire colon seen well, [place]cliffe Bowel Prep Transverse Colon: Entire colon seen well, [place]cliffe Bowel Prep Left Colon:Entire colon seen well [...] + internal hemorrhoids Rectal bleeding (Primary Diagnosis) [[id number]] Unspecified right bundle-branch block [[id number]] Abnormal electrocardiogram (ECG) (EKG) [[id number]] Abnormal electrocardiogram (ECG) (EKG) [[id number]] ANATOMIC SPECIMEN: Yes SPECIMEN: ID Type Source [...] Caraballo MD Division of Gastroenterology & Hepatology [facility] Ely Hurtado is a 84 year old female admitted on 01/25/2025 with a history of HTN, HLD, DVT (Eliquis) transferred from [facility] for urgent vascular intervention for incidental [...] Max Mod Min CG CS Sup DS OR I Comment Supine to sit X Sit [...] With Patients permission ordered no equipment via [employer] Order. If any questions contact [facility] DME Provider at [phone]. 01/31/2025 6 Clicks Basic Mobility PT Difficulty [...] Patient is functionally appropriate for discharge to [facility] with assist PRN once medically cleared. [...] NA = Not Assessed, I = Independent, OR = Modified Independent, Sup = Supervised, Set [...] Max Mod Min CG CS Sup DS OR I Comment Supine to sit X Sit [...] With Patients permission ordered no equipment via [employer] Order. If any questions contact [facility] DME Provider at [phone]. 01/31/2025 6 Clicks Basic Mobility PT Difficulty [...] Patient is functionally appropriate for discharge to [facility] with assist PRN once medically cleared. [...] NA = Not Assessed, I = Independent, OR = Modified Independent, Sup = Supervised, Set up = Physical Assistance for Set-up Only, Min = Minimal Assistance, Mod = Moderate Assistance, Max = Maximal assistance; Dep = Dependent; AROM = Active Range of Motion; PROM = Passive Range of Motion; MMT = Manual Muscle Test [facility] 01-31[facility]2025 Consult note Associated Order (s): [...] Max Mod Min CG CS Sup DS OR I Comment Supine to sit X Sit [...] With Patients permission ordered no equipment via [employer] Order. If any questions contact [facility] DME Provider at [phone]. 01/31/2025 6 Clicks Basic Mobility PT Difficulty [...] Patient is functionally appropriate for discharge to [facility] with assist PRN once medically cleared. [...] NA = Not Assessed, I = Independent, OR = Modified Independent, Sup = Supervised, Set up = Physical Assistance for Set-up Only, Min = Minimal Assistance, Mod = Moderate Assistance, Max = Maximal assistance; Dep = Dependent; AROM = Active Range of Motion; PROM = Passive Range of Motion; MMT = Manual Muscle Test Images from the original note were not included. Dietitian vs DietaryTech: Dietary TechDiet Front Facer Nutrition Screening Reason for visit: LOS 5 [...] up. Will continue to follow, Ava Hays Block Sawyer Pager#[phone] Time spent on patient care: 15 minutes [...] and anemia. Pt currently resides at SNF ([facility]) Diagnosis: Rectal Bleeding Hepatic Aneurysm/pseudoaneurysm Urinary [...] somewhere" Patient Identified Goal(s): find her walker HEM MARKER Status: questionable historian Mobility Status: Modified indep [...] chart review: patient [facility] with staff assist OBJECTIVE: Appearance: received supine [...] Dep Max Mod Min CG CS DS OR I Set-Up Comment Supine to Sit x [...] With Patients permission ordered no equipment via [employer] Order. If any questions contact [facility] DME Provider at [phone]. 01/27/2025 6 Clicks Basic Mobility PT Difficulty [...] address. Recommend further therapy services in a Fpc Setting once medically cleared. Will continue to [...] NA = Not Assessed, I = Independent, OR = Modified Independent, Sup = Supervised, Set [...] Patient Subjective: "My walker is somewhere in [place]" Patient Identified Goal(s): Return home Home Living Situation Per pt report: Lives in apartment w 0 LATESHA 0 steps to bed/ bathroom (walk in shower) Lives alone w son PRN assistance Equipment available: rollator, shower chair, grab bars Ind w ADL+ assist for IADLs OR for functional mobility w rollator (-) Drive (-) Falls Per chart: pt resides at SNF ([facility]) with staff assist OBJECTIVE: Patient Identification: [...] Dep Max Mod Min CG CS DS OR I Set-Up Comment Feeding x x NPO Anticipate CS Grooming/Hygiene x x Anticipate seated Bathing:UB x Anticipate seated Bathing:LB x Anticipate seated Dressing:UB x Adjust hospital gown seated EOB Dressing: LB x Anticipate seated Toileting x x Anticipate CS for pericare and CGA for clothing management Transfers/Bed Mobility: Assistance Level Dep Max Mod Min CG CS DS OR I Set-Up Comment Toilet Transfers x Anticiapte [...] With Patients permission ordered no equipment via [employer] Order. If any questions contact [facility] DME Provider at [phone]. 01/27/2025 6 Clicks Daily Activity OT Help [...] Guard Assist/Supervision 4 - Non = Modified Veyo/Independent ASSESSMENT: Recommend further therapy services in a [...] NA = Not Assessed, I = Independent, OR = Modified Independent, Sup = Supervised, Set [...] Isauro Page MD Patient: Ely Hurtado Location: [place] [address]/1 Reason for Consult: HPI Ely Hurtado is [...] excellent care from the nursing staff, and child support specialist. Dictated using voice recognition software. [...] Staff Gastoenterologist Division of Gastroenterology & Hepatology [facility] [1] No past medical history on [...] Ely Hurtado Age [age] year old female [id number] AC8-704/2 Admitted 01/25/2025 12:28 PM Hospital Day: 6 Subjective HOSPITAL COURSE: Ely Hurtado is a 84 year old female admitted on 01/25/2025 with a history of HTN, HLD, DVT (Eliquis) transferred from [facility] for urgent vascular intervention for incidental [...] re-eval by PT/OT Floyd Odom DO [facility] 01-30-2025 History of Present illness Narrative Hospital Medicine Progress Note Ely Hurtado Age [age] year old female [id number] AC8-704/2 Admitted 01/25/2025 12:28 PM Hospital Day: [...] Ely Hurtado Age [age] year old female [id number] AC8-704/2 Admitted 01/25/2025 12:28 PM Hospital Day: [...] Emergency Contact: aliza hurtado, Aliza Hancock MD [facility] Medicine CRITICAL CARE ATTENDING PROGRESS NOTE [...] of Hepatic A. Aneurysm Hemorrhoidal care #2 PIT SUPERVISOR stable Neurochecks #3CV Resolved hypotension VS&ECG monitoring [...] significant for good health sent in from [facility] with BRBPR after CT abdomen showed [...] Dispo back to [facility] Dr. Jose Rafael Magdaleno. Lyly [id number] bp#[id number] Images from the original note were not included. .[facility] Step Down Unit - Progress Note Patient: Ely Hurtado : 1940 Sex: female Room: [place] [address] Admission: 01/25/2025 Today: 01/29/2025 (Length of stay: 4 day(s)) HOSPITAL COURSE: Ely Hurtado is a 84 year old female admitted on 01/25/2025 with a PMH of anemia, rectal bleeding, history ov DVT, 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 Patient who currently resides at [facility] ([facility]) where she was found to have significant bright red blood in her stool following multiple episodes of diarrhea on the morning of 01/24. They were transferred to the [facility] ED later that day for further evaluation. [...] work up PROBLEM LIST: Neuro AxOx2 at [facility] per OSH notes. Cardiology -No [...] DO PGY-2 Family Medicine Stepdown Unit Pager [phone] offered patient to get up and [...] Medicine [facility] PIN [id number] [1] Social History Tobacco Use Smoking Status Not on file Smokeless Tobacco Not on file Images from the original note were not included. [facility] Step Down Unit - Progress Note Patient: Ely Hurtado : 1940 Sex: female Room: [place] [address] Admission: 01/25/2025 Today: 01/28/2025 (Length of stay: 3 day(s)) HOSPITAL COURSE: Ely Hurtado is a 84 year old female admitted on 01/25/2025 with a PMH of anemia, rectal bleeding, history ov DVT, 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 Patient who currently resides at [facility] ([facility]) where she was found to have significant bright red blood in her stool following multiple episodes of diarrhea on the morning of 01/24. They were transferred to the [facility] ED later that day for further evaluation. [...] work up PROBLEM LIST: Neuro AxOx2 at [facility] per OSH notes. Cardiology -No [...] DO PGY-2 Family Medicine Stepdown Unit Pager [phone] 01/27/25 1500 Assessment and Discharge Planning Evaluation READMISSION LESS THAN 30 DAYS No READMISSION RISK SCORE IS Rising Risk INTERVIEWED Chart Review COGNITIVE STATUS Oriented FUNCTIONAL STATUS PRIOR TO ADMISSION Ambulates with medical affairs manager (cane, walker, etc.);Independent with ADL's HAS ADVANCE [...] that the patient is a resident a [facility] ([phone]). CM left a message to inquire if Facility has SNF capabilities. CM to notifiy the facility if the patient is medically able to return. PT/OT recommend that pt go to a SNF when pt is medically ready to discharge. CM to follow up. ADDENDUM: CM received a return phone call from [facility] staff that states that they do have a SNF side to their facility. However they are not in care[place] and they do not know the process of how to discharge the patient to SNF side instead of AL. CM was give contact phone number of [phone]. LOWELL to follow up on 01/28/2025 during business hours. Breanna Wilder MSN, RN Inpatient Manager Of Human Resources 7E/7W Cell [phone] Desk [phone] Images from the original note were not [...] Medicine [facility] PIN [id number] [1] Social History Tobacco Use Smoking Status Not on file Smokeless Tobacco Not on file Images from the original note were not included. 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 Patient who currently resides at [facility] ([facility]) where she was found to have significant bright red blood in her stool following multiple episodes of diarrhea on the morning of 01/24. They were transferred to the [facility] ED later that day for further evaluation. [...] work up PROBLEM LIST: Neuro AxOx2 at [facility] per OSH notes. Cardiology -No [...] MD PGY-1 Internal Medicine Stepdown Unit Pager [phone] Images from the original note were not [...] with hematochezia x 1 day. Presented to [facility]. Hgb decreased to 6.2. Received 2U PRBCs. [...] Medicine [facility] PIN [id number] [1] Social History Tobacco Use Smoking Status Not on file Smokeless Tobacco Not on file Images from the original note were not included. [facility] Step Down Unit - Progress Note Patient: Ely Hurtado : 1940 Sex: female Room: [place] [address] Admission: 01/25/2025 Today: 01/26/2025 (Length of stay: 1 day(s)) HOSPITAL COURSE: Ely Hurtado is a 84 year old female admitted on 01/25/2025 with a PMH of anemia, rectal bleeding, history ov DVT, 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 Patient who currently resides at [facility] ([facility]) where she was found to have significant bright red blood in her stool following multiple episodes of diarrhea on the morning of 01/24. They were transferred to the [facility] ED later that day for further evaluation. [...] work up PROBLEM LIST: Neuro AxOx2 at [facility] per OSH notes. Cardiology -No [...] MD PGY-1 Internal Medicine Stepdown Unit Pager [phone] documented in this encounter [facility] [...] Ely Hurtado Age [age] year old female [id number] Admitted 01/25/2025 12:28 PM Hospital Day: 5 HOSPITAL COURSE: Ely Hurtado is a 84 year old female admitted on 01/25/2025 with a history of anemia, rectal bleeding, history of DVT (Eliquis), aneurysm of hepatic artery transferred from [facility] for urgent vascular intervention. Patient with [...] Emergency Contact: aliza hurtado, Aliza Hancock MD [facility] 01-29-2025 Note CRITICAL CARE ATTEND [...] of Hepatic A. Aneurysm Hemorrhoidal care #2 PIT SUPERVISOR stable Neurochecks #3CV Resolved hypotension VS AND [...] for good health sent in from out [facility] SNF with BRBPR after CT abdomen showed [...] back to SNF Dr. Jose Rafael Desouza [id number] bp#[id number] [facility] 01-29-2025 Progress note Formatting of t his note is different from the original. Images from the original note were not included. . TRANSFER NOTE Patient: Ms. Ely Hurtado, an 84 year old (Full Code) Room: [place] [address] 1940 FROM Step down unit TO Medicine [...] of 01/24. They were transferred to the [facility] ED later that day for further evaluation. 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 Nelda James DO Family Medicine, PGY2 FM Pager: [phone] [facility] 01-29-2025 Note .[facility] Step Down Unit - Progress Note Patient: Ely Hurtado : 1940 Sex: female Room: [place] [address] Admission: 01/25/2025 Today: 01/29/2025 (Length of stay: 4 day(s)) HOSPITAL COURSE: Ely Hurtado is a 84 year old female admitted on 01/25/2025 with a PMH of anemia, rectal bleeding, history ov DVT, 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 Patient who currently resides at [facility] ([facility]) where she was found to have significant bright red blood in her stool following multiple episodes of diarrhea on the morning of 01/24. They were transferred to the [facility] ED later that day for further evaluation. [...] work up PROBLEM LIST: Neuro AxOx2 at [facility] per OSH notes. Cardiology -No [...] of cholestasi (more content not included)... [facility] 01-28-2025 Note POST-PROCEDURE NOTE Procedure: Left Femoral Artery approach Abdominal Angiogram with Proper Hepatic Artery Coil Embolization Pre-operative Diagnosis: Proper Hepatic Artery Aneurysm Post-operative Diagnosis: Proper Hepatic Artery Aneurysm Attending: Anselmo Whittaker MD Job Training Specialist: Bessy Acuña MD A TIME OUT was [...] from the medicare.gov compare site for SNF. [place] of Choice was provided to the patient/patient call center support representative. For SNF: RN/ to complete [employer]. Signature page placed on patient's chart for MD wong. [id number] initiated in [facility] Pt will require a pre-cert/LOC. SW/CM will follow up for choices. Referral sent to [facility] which is the sister SNF for [facility] CM will continue to follow Breanna Wilder MSN, RN Inpatient Manager Of Human Resources 7E/7W Cell [phone] Desk [phone] [facility] 01-28-2025 Note Pre-Procedure H [...] Directives (Living will, health care power of industrial renderer): none Patient Recent Code Status: Full Code Code Status For This Procedure: Full Code Patient does not have capacity to consent. Risk and benefits of the procedure were discussed with next of kin / POA. All questions answered. Lance Sandhu DO Radiology, PGY3 01/28/25 [1] No past medical history on file. [2] [facility]-28[facility] Note .[facility] Step Down Unit - Progress Note Patient: Ely Hurtado : 1940 Sex: female Room: [place] [address] Admission: 01/25/2025 Today: 01/28/2025 (Length of stay: 3 day(s)) HOSPITAL COURSE: Ely Hurtado is a 84 year old female admitted on 01/25/2025 with a PMH of anemia, rectal bleeding, history ov DVT, 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 Patient who currently resides at [facility] ([facility]) where she was found to have significant bright red blood in her stool following multiple episodes of diarrhea on the morning of 01/24. They were transferred to the [facility] ED later that day for further evaluation. [...] work up PROBLEM LIST: Neuro AxOx2 at [facility] per OSH notes. Cardiology -No [...] Regimen Senna (more content not included)... [facility] 01-28-2025 Consult note Formatting of th is note is different from the original. Images from the original note were not included. Dietitian vs DietaryTech: Dietary TechDiet Front Facer Nutrition Screening Reason for visit: LOS 5 [...] up. Will continue to follow, Ava Hays, Block Sawyer Pager#[phone] Time spent on patient care: 15 minutes [...] STATUS PRIOR TO ADMISSION Ambulates with medical affairs manager (cane, walker, etc.);Independent with ADL's HAS ADVANCE [...] that the patient is a resident a [facility] ([phone]). CM left a message to inquire if Facility has SNF capabilities. CM to notifiy the facility if the patient is medically able to return. PT/OT recommend that pt go to a SNF when pt is medically ready to discharge. CM to follow up. ADDENDUM: CM received a return phone call from [facility] staff that states that they do have a SNF side to their facility. However they are not in care[place] and they do not know the process of how to discharge the patient to SNF side instead of AL. CM was give contact phone number of [phone]. CM to follow up on 01/28/2025 during business hours. Breanna Wilder MSN, RN Inpatient Manager Of Human Resources 7E/7W Cell [phone] Desk [phone]-[phone] [facility] 01-27-2025 Surgery Surgical operation note Ely Hurtado 84 year old Surgical Contact Serial Number: [id number] Location: ENDO ADD ON PROCEDURE Date: 01/27/2025 Mounter: Juan Parikh MD Attending:Adrien Caraballo MD Procedure(s): [...] transillumination of right lower quadrant. Prep was Radcliffe Bowel Prep Right Colon: Entire colon seen well, Radcliffe Bowel Prep Transverse Colon: Entire colon seen well, Radcliffe Bowel Prep Left Colon:Entire colon seen well [...] + internal hemorrhoids Rectal bleeding (Primary Diagnosis) [466905] Unspecified right bundle-branch block [1406498] Abnormal electrocardiogram (ECG) (EKG) [[id number]] Abnormal electrocardiogram (ECG) (EKG) [[id number]] ANATOMIC SPECIMEN: Yes SPECIMEN: ID Type Source [...] Caraballo MD Division of Gastroenterology & Hepatology [facility] 01-27-2025 History and physical note Ely Hurtado [id number] 01/27/2025 HISTORY & PHYSICAL: Patient's history with [...] History and physical note Ely Patsy Hurtado [id number] 01/27/2025 HISTORY & PHYSICAL: Patient's history with [...] Ely Hurtado : 1940 Sex: female Room: [place] [address] Admission: 01/25/2025 Today: 01/25/2025 (Length of stay: 1 day(s)) HISTORY OF PRESENT ILLNESS: CHIEF COMPLAINT: No chief complaint on file. 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 Patient who currently resides at [facility] ([facility]) where she was found to have significant bright red blood in her stool following multiple episodes of diarrhea on the morning of 01/24. They were transferred to the [facility] ED later that day for further evaluation. [...] and anemia. PROBLEM LIST: Neuro AxOx2 at [facility] per OSH notes. Cardiology -No [...] Drug De-Escalation Dispo: [facility] Code Status: Full Code This plan is preliminary until finalized by an attending physician. Wilbert Pérez MD PGY-1 Internal Medicine Stepdown Unit Pager [phone] [1] No past medical history on file. [...] note Patient: Ely Hurtado : 1940 Location: [place] [address] Admission Date: 01/25/2025 Length of stay: 1 day(s) Ms. Ely Hurtado is a 84 year old female Data obtained by the EMR and corroborated by [facility] resident significant bright red blood [...] currently resides at [facility] ([facility]) Diagnosis: Rectal Bleeding Hepatic Aneurysm/pseudoaneurysm Urinary [...] somewhere" Patient Identified Goal(s): find her walker HEM MARKER Status: questionable historian Mobility Status: Modified indep [...] currently resides at [facility] ([facility]) with staff assist OBJECTIVE: Appearance: received [...] Dep Max Mod Min CG CS DS OR I Set-Up Comment Supine to Sit x [...] With Patients permission ordered no equipment via [facility] Order. If any questions contact [facility] DME Provider at [phone]. 01/27/2025 6 Clicks Basic Mobility PT Difficulty [...] address. Recommend further therapy services in a Fpc Setting once medically cleared. Will continue to [...] NA = Not Assessed, I = Independent, OR = Modified Independent, Sup = Supervised, Set [...] [2] No past surgical history on file. [facility] 01-27-2025 Note PHYSICAL THERAPY ACU TE [...] currently resides at [facility] ([facility]) Diagnosis: Rectal Bleeding Hepatic Aneurysm/pseudoaneurysm Urinary [...] somewhere" Patient Identified Goal(s): find her walker HEM MARKER Status: questionable historian Mobility Status: Modified indep [...] currently resides at [facility] ([facility]) with staff assist OBJECTIVE: Appearance: received [...] Dep Max Mod Min CG CS DS OR I Set-Up Comment Supine to Sit x [...] With Patients permission ordered no equipment via [employer] Order. If any questions contact [facility] Provider at [phone]. 01/27/2025 6 Clicks Basic Mobility PT Difficulty [...] Clicks Score (more content not included)... [facility] 01-27-2025 Consult note Associated Order (s): [...] Patient Subjective: "My walker is somewhere in [place]" Patient Identified Goal(s): Return home Home Living Situation Per pt report: Lives in apartment w 0 LATESHA 0 steps to bed/ bathroom (walk in shower) Lives alone w son PRN assistance Equipment available: rollator, shower chair, grab bars Ind w ADL+ assist for IADLs OR for functional mobility w rollator (-) Drive (-) Falls Per chart: pt resides at SNF ([facility]) with staff assist OBJECTIVE: Patient Identification: [...] Dep Max Mod Min CG CS DS OR I Set-Up Comment Feeding x x NPO Anticipate CS Grooming/Hygiene x x Anticipate seated Bathing:UB x Anticipate seated Bathing:LB x Anticipate seated Dressing:UB x Adjust hospital gown seated EOB Dressing: LB x Anticipate seated Toileting x x Anticipate CS for pericare and CGA for clothing management Transfers/Bed Mobility: Assistance Level Dep Max Mod Min CG CS DS OR I Set-Up Comment Toilet Transfers x Anticiapte [...] With Patients permission ordered no equipment via [employer] Order. If any questions contact [facility] DME Provider at [phone]. 01/27/2025 6 Clicks Daily Activity OT Help [...] Guard Assist/Supervision 4 - Non = Modified Veyo/Independent ASSESSMENT: Recommend further therapy services in a [...] NA = Not Assessed, I = Independent, OR = Modified Independent, Sup = Supervised, Set [...] Patient Subjective: "My walker is somewhere in [place]" Patient Identified Goal(s): Return home Home Living Situation Per pt report: Lives in apartment w 0 LATESHA 0 steps to bed/ bathroom (walk in shower) Lives alone w son PRN assistance Equipment available: rollator, shower chair, grab bars Ind w ADL+ assist for IADLs OR for functional mobility w rollator (-) Drive [...] Dep Max Mod Min CG CS DS OR I Set-Up Comment Feeding x x NPO Anticipate CS Grooming/Hygiene x x Anticipate seated Bathing:UB x Anticipate seated Bathing:LB x Anticipate seated Dressing:UB x Adjust hospital gown seated EOB Dressing: LB x Anticipate seated Toileting x x Anticipate CS for pericare and CGA for clothing management Transfers/Bed Mobility: Assistance Level Dep Max Mod Min CG CS DS OR I Set-Up Comment Toilet Transfers x Anticiapte [...] With Patients permission ordered no equipment via [employer] Order. If any questions contact [facility] DME Provider at [phone]. 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 Patient who currently resides at [facility] ([facility]) where she was found to have significant bright red blood in her stool following multiple episodes of diarrhea on the morning of 01/24. They were transferred to the [facility] ED later that day for further evaluation. [...] work up PROBLEM LIST: Neuro AxOx2 at [facility] per OSH notes. Cardiology -No [...] Isauro Page MD Patient: Ely Hurtado Location: [place] [address]1 Reason for Consult: HPI Ely Hurtado is [...] [place] MD, MS Gastroenterology Fellow. Consult Pager [phone] Discussed with GI attending, Dr. Adrien Caraballo MD Primary team updated yes. Thank you for involving us in the care of this patient. I appreciate the excellent care from the nursing staff, and child support specialist. Dictated using voice recognition software. 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 Patient who currently resides at [facility] ([facility]) where she was found to have significant bright red blood in her stool following multiple episodes of diarrhea on the morning of 01/24. They were transferred to the [facility] ED later that day for further evaluation. [...] work up PROBLEM LIST: Neuro AxOx2 at [facility] per OSH notes. Cardiology -No [...] MD PGY-1 Internal Medicine Stepdown Unit Pager [phone] [facility] 01-25-2025 Consult note Formatting of th [...] Ely Hurtado : 1940 Sex: female Room: [place] [address] Admission: 01/25/2025 Today: 01/25/2025 (Length of stay: 1 day(s)) HISTORY OF PRESENT ILLNESS: CHIEF COMPLAINT: No chief complaint on file. 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 Patient who currently resides at [facility] ([facility]) where she was found to have significant bright red blood in her stool following multiple episodes of diarrhea on the morning of 01/24. They were transferred to the [facility] ED later that day for further evaluation. [...] IP GASTROENTEROLOGY CONSULT ASSESSMENT AND PLAN: Ely Hutrado is a 84 year old female with a history of anemia, rectal bleeding, dvt history, auerysm of hepatic artery admitted with anemia and need for acute Vascular IR intervention and anemia. PROBLEM LIST: Neuro AxOx2 at [facility] per OSH notes. Cardiology -No [...] MD PGY-1 Internal Medicine Stepdown Unit Pager [phone] [1] No past medical history on file. [...] note Patient: Ely Hurtado : 1940 Location: [place] [address] Admission Date: 01/25/2025 Length of stay: 1 day(s) Ms. Ely Hurtado is a 84 year old female Data obtained by the EMR and corroborated by [facility] resident significant bright red blood [...] MD Critical Care Attending 01/25/2025 7:53 PM [facility] Work Phone: 01-25-2025 Note Division of Pulmonar y, Critical Care and Sleep Medicine Critical Care Initial Evaluation note Patient: Ely Hurtado : 1940 Location: [place] [address] Admission Date: 01/25/2025 Length of stay: 1 day(s) Ms. Ely Hurtado is a 84 year old female Data obtained by the EMR and corroborated by me [place] resident significant bright red blood in her [...] Critical Care Attending 01/25/2025 7:53 PM [facility] 01-25-2025 Telephone encounter Note Images from the original note were not included. I was called by [facility] regarding a transfer from [place]. That facility is requesting transfer because Services [...] Keyon Fallon DO Division of Hospital Medicine, [facility] Pager#: [phone] [facility] 01-25-2025 Miscellaneous Notes Images from the original note were not included. I was called by [facility] regarding a transfer from [place]. That facility is requesting transfer because Services [...] Keyon Fallon DO Division of Hospital Medicine, [facility] Pager#: [phone] documented in this encounter [facility] 01-25-2025 Radiology Diagnostic study note [facility] Imaging Services [address], [place] [id number] CTA Abd/Pelvis W/WO Contrast MR#: [id number] Acct: [id number] Name: ELY HURTADO Rep #: [id number] : 1940 F 84 From: Bob Garza MD PCP: Dianna Guido MD Status: REG ER Study:CTA Abd/Pelvis W/WO Contrast Date of Ex am: 01/24/25 Exam# [id number] Ordering Dr: Power Borges DO PROCEDURE: CTA [...] provider Power Borges 01/24/2025 at 10:50 p.m. [employer]. Reading Location: [id number] CC: Dr. Power Borges DO; Dianna Guido MD ~ Button Breaker Operator: Signed [facility] 06-25-2023 Progress note Note Date/Time June 25, 2023 2:29pm [facility] [address] [place] [address] Progress Note - Wound Care 06/25/23 1425 MR#: [id number] Acct: [id number] Name: ELY HURTADO Rep #:[id number] : 1940 83 From: Andie Magdaleno PM PCP: Dr. Karen Lang MD Status:R EG RCR Location: History of Present Illness Date of Service: 06/25/23 Chief Complaint: Nonhealing ulcer left lower extremity History of Wound: This is a 79-year-old white female known to me previously who was recently discharged from the [facility] in November 2018 who presents to [...] Recorded Date Recorded By Document 06/11/23 13:11 [employer] 06/11/23 13:19 Document 06/18/23 13:58 [employer] 06/18/23 14:03 Document 06/25/23 14:01 Desktop 06/25/23 14:09 06/11/23 06/18/23 06/25/23 13:11 13:58 14:01 - Today's Visit Information Type of service Follow-up Visit Follow-up Visit Follow-up Visit (Physician/EXAMINATION PROCTOR (Physician/EXAMINATION PROCTOR (Physician/EXAMINATION PROCTOR ) ) ) Arrival Mode Ambulatory, Ambulatory, [...] Date Recorded By Document 06/11/23 13:11 KW [employer] 06/11/23 13:19 KW Document 06/18/23 13:58 [employer] 06/18/23 14:03 KW Document 06/25/23 14:01 [employer] 06/25/23 14:09 06/11/23 06/18/23 06/25/23 13:11 13:58 [...] -Expiration Date 02/08/28 02/08/28 -Product Lot Number [id number] -Percent Used 100 100 -Lot number of Saline Used [id number] -Bleeding Controlled with Pressure Pressure -Treatment Response [...] Desktop 06/11/23 13:47 KW Document 06/18/23 14:43 [facility] Desktop 06/18/23 14:43 [facility] Document 06/25/23 14:19 KW Desktop [...] of Care Provided Yes Yes Facility Type Custodial Care Facility Assessment/Plan Assessment/Plan (1) Non-pressure ulcer [...] Cosigner Signature (if applicable): CC: ~ Signed [facility] Work Phone: 1(722) 716-120401-10-2024 Progress note Author Andie Bernal [facility] June 18, 2023 3:30pm Note Date/Time June 18, 2023 3 :30pm [facility] [address] [place] [address] Progress Note - Wound Care 06/18/23 1528 MR#: [id number] Acct: [id number] Name: ELY HURTADO Rep #:[id number] : 1940 83 From: Andie DE LA TORRE PCP: Dr. Karen Lang MD Status:R ISABELLA ENRIQUEZ Location: History of Present Illness Date of Service: 06/18/23 Chief Complaint: Nonhealing ulcer left lower extremity History of Wound: This is a 79-year-old white female known to me previously who was recently discharged from the [facility] in November 2018 who presents to [...] applied to the left lateral full-thickness ulceration iedi210% use. Third application. The graft site was [...] applied to the left lateral full-thickness ulceration swjd886% use. Third application. The graft site was [...] Type of service Follow-up Visit Follow-up Visit (Physician/EXAMINATION PROCTOR (Physician/EXAMINATION PROCTOR ) ) Arrival Mode Ambulatory, Ambulatory, Walker [...] Date Recorded By Document 06/11/23 13:11 KW [employer] 06/11/23 13:19 KW Document 06/18/23 13:58 KW [employer] 06/18/23 14:03 KW 06/11/23 06/18/23 13:11 13:58 [...] -Expiration Date 02/08/28 02/08/28 -Product Lot Number [id number] -Percent Used 100 100 -Lot number of Saline Used [id number] -Bleeding Controlled with Pressure Pressure -Treatment Response [...] Summary of Care Provided Yes Facility Type [facility] Facility Assessment/Plan Assessment/Plan (1) Non-pressure ulcer [...] applied to the left lateral full-thickness ulceration rmqg798% use. Third application. The graft site was [...] Cosigner Signature (if applicable): CC: ~ Signed [facility] Work Phone: 1(808) 714-778901-03-2024 Progress note Author Andie Bernal [facility] June 11, 2023 1:52pm Note Date/Time June 11, 2023 1: 52pm [facility] [address] [place] [address] Progress Note - Wound Care 06/11/23 1350 MR#: [id number] Acct: [id number] Name: ELY HURTADO Rep #:[id number] : 1940 83 From: Andie Magdaleno PM PCP: Dr. Karen Lang MD Status:R EG RCR Location: History of Present Illness Date of Service: 06/11/23 Chief Complaint: Nonhealing ulcer left lower extremity History of Wound: This is a 79-year-old white female known to me previously who was recently discharged from the [facility] in November 2018 who presents to [...] applied to the left lateral full-thickness ulceration spwx133% use. Second application. The graft site was [...] applied to the left lateral full-thickness ulceration zckr352% use. Second application. The graft site was [...] Recorded Date Recorded By Document 06/11/23 13:11 [employer] 06/11/23 13:19 06/11/23 13:11 - Today's Visit Information Type of service Follow-up Visit (Physician/EXAMINATION PROCTOR ) Arrival Mode Ambulatory, Walker Patient Identification [...] Recorded Date Recorded By Document 06/11/23 13:11 [employer] 06/11/23 13:19 06/11/23 13:11 Wound Center Nurse [...] Disc -Expiration Date 02/08/28 -Product Lot Number [id number] -Percent Used 100 -Lot number of Saline Used [id number] -Bleeding Controlled with Pressure -Treatment Response Procedure [...] applied to the left lateral full-thickness ulceration xlxt094% use. Second application. The graft site was [...] Cosigner Signature (if applicable): CC: ~ Signed [facility] Work Phone: 1(518) 354-364212-27-2023 Progress note Author Andie Bernal [facility] June 04, 2023 1:36pm Note Date/Time June 04, 2023 1:36pm [facility] [address] [place] [address] Progress Note - Wound Care 06/04/23 1333 MR#: [id number] Acct: [id number] Name: ELY HURTADO Rep #:[id number] : 1940 83 From: Andie Magdaleno PM PCP: Dr. Karen Lang MD Status:R EG RCR Location: History of Present Illness Date of Service: 06/04/23 Chief Complaint: Nonhealing ulcer left lower extremity History of Wound: This is a 79-year-old white female known to me previously who was recently discharged from the [facility] in November 2018 who presents to [...] applied to the left lateral full-thickness ulceration pedf316% use. First application. The graft site was [...] applied to the left lateral full-thickness ulceration ztpl072% use. First application. The graft site was [...] service Initial Visit Follow-up Visit Follow-up Visit (Physician/EXAMINATION PROCTOR (Physician/EXAMINATION PROCTOR ) ) Arrival Mode Ambulatory, Ambulatory, Ambulatory, [...] than 3 Seconds Communication Assessment Preferred language Ukrainian Able to Read Yes Able to Write [...] in Ability to Perform Denies Any Declines Culture/Latter Day/Train Attendant Cultural/Latter Day Needs that may affect No Treatment Plan Would you allow our hospital veterinary technician to No meet you for the purpose of spiritual/ emotional support? Train Attendant to contact place of mosque No WC - Nurse 1 - General [...] (1-33%) Small (1-33%) Small (1-33%) -Granulation Quality [place] -Slough/Fibrin Yes -Necrosis Amt Large (67-100%) Large [...] Date Recorded By Document 05/21/23 14:24 DL [id number] 05/21/23 14:25 DL Document 05/28/23 13:23 [facility] Desktop 05/28/23 13:24 [facility] 05/21/23 05/28/23 14:24 13:23 Wound [...] to apply santyl when available. Facility Type Custodial Care [facility] Facility Orders Sent Yes Assessment/Plan [...] applied to the left lateral full-thickness ulceration fiqs749% use. First application. The graft site was [...] Cosigner Signature (if applicable): CC: ~ Signed [facility] Work Phone: 1(275) 565-223912-20-2023 Progress note Author Andie Bernal [facility] May 28, 2023 1:22pm Note Date/Time May 28, 2023 1:22pm [facility] [address] [place] [address] Progress Note - Wound Care 05/28/23 1317 MR#: [id number] Acct: [id number] Name: ELY HURTADO Rep #:[id number] : 1940 83 From: Andie Magdaleno PM PCP: Dr. Karen Lang MD Status:R [facility] Location: History of Present Illness Date of Service: 05/28/23 Chief Complaint: Nonhealing ulcer left lower extremity History of Wound: This is a 79-year-old white female known to me previously who was recently discharged from the [facility] in November 2018 who presents to [...] Type of service Initial Visit Follow-up Visit (Physician/EXAMINATION PROCTOR ) Arrival Mode Ambulatory, Ambulatory, Walker Walker [...] than 3 Seconds Communication Assessment Preferred language Ukrainian Able to Read Yes Able to Write [...] in Ability to Perform Denies Any Declines Culture/Latter Day/Train Attendant Cultural/Latter Day Needs that may affect No Treatment Plan Would you allow our hospital veterinary technician to No meet you for the purpose of spiritual/ emotional support? Train Attendant to contact place of mosque No WC - Nurse 1 - General [...] Amt Small (1-33%) Small (1-33%) -Granulation Quality [place] Red -Slough/Fibrin Yes -Necrosis Amt Large (67-100%) [...] Date Recorded By Document 05/21/23 14:24 DL [id number] 05/21/23 14:25 DL 05/21/23 14:24 Wound Care [...] to apply santyl when available. Facility Type [facility] Facility Orders Sent Yes Assessment/Plan Assessment/Plan [...] [facility] She will continue to take the doxycycline [...] Cosigner Signature (if applicable): CC: ~ Signed [facility] Work Phone: 1(162) 259-583012-13-2023 Progress note Author Andie [facility] May 21, 2023 3:47pm Note Date/Time May 21, 2023 3:41pm [facility] [address] [place] [address] Progress Note - Wound Care 05/21/23 1535 MR#: [id number] Acct: [id number] Name: ELY HURTADO Rep #:[id number] : 1940 83 From: Andie DE LA TORRE PCP: Dr. Karen Lang MD Status:R EG RCR Location: History of Present Illness Date of Service: 05/21/23 Chief Complaint: Nonhealing ulcer left lower extremity History of Wound: This is a 79-year-old white female known to me previously who was recently discharged from the [facility] in November 2018 who presents to [...] than 3 Seconds Communication Assessment Preferred language Ukrainian Able to Read Yes Able to Write [...] in Ability to Perform Denies Any Declines Culture/Latter Day/Train Attendant Cultural/Latter Day Needs that may affect No Treatment Plan Would you allow our hospital veterinary technician to No meet you for the purpose of spiritual/ emotional support? Train Attendant to contact place of mosque No WC - Nurse 1 - General [...] Attached -Granulation Amt Small (1-33%) -Granulation Quality [place] -Necrosis Amt Large (67-100%) -Necrotic Tissue Type [...] Recorded Date Recorded By Document 05/21/23 14:05 [employer] 05/21/23 14:06 05/21/23 14:05 Wound Center Nurse [...] Date Recorded By Document 05/21/23 14:24 DL [id number] 05/21/23 14:25 DL 05/21/23 14:24 Wound Care [...] to apply santyl when available. Facility Type Custodial Care Facility Orders Sent Yes Assessment/Plan Assessment/Plan [...] Cosigner Signature (if applicable): CC: ~ Signed [facility] Work Phone: evaluation noteNo assessment information available [facility] Work Phone: evaluation note* Diagnosis Onset Date Resolution Status Non-pressure ulcer of left l ower extremity with fat layer exposed acute Pain in left leg acute PVD (peripheral vascular disease) chronic [facility] Work Phone: Evaluation note* Diagnosis Onset Date Resolution Status Non-pressure ulcer of left l ower extremity with fat layer exposed acute Pain in left leg acute PVD (peripheral vascular disease) chronic Non-pressure ulcer of left l ower extremity with fat layer exposed acute PVD (peripheral vascular disease) chronic [facility] Work Phone: evaluation note* Diagnosis Rectal bleeding- [...] for referral (narrative)No reason for referral [facility] Work Phone: Reason for visit Narrative* Auth/Cert (Routine) Specialty Diagnoses / Procedures Referred By Contac t Referred To Contact Case Management Diagnoses rectal bleed on eliquis 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 Procedures N/A Alicia Nava MD [employer] [place] [address] Phone: tel: fax: [facility] [employer] [address] [place] [address] Phone: tel: Referral ID Status Reason Start Date Expiration Date Visits Re quested Visits Authorized [id number] 3 3 [facility] Summary Purpose [...] Will Yes February 14 9:15pm Power of Asthma Educator No February 14, 2019 9:15pm Advance Directive Response Recorded Date/ Time Living Will Yes February 14 8:15pm Power of Asthma Educator No February 14, 2019 8:15pm Advance Directive Response Recorded Date/ Time Do you have a Healthcare Power of Asthma Educator? No January 24, 2025 9:15pm Date Activated Date Inactivated Comments 01/25/2025 12:24 PM Date Activated Date Inactivated Comments 01/25/2025 12:24 PM 01/31/2025 7:26 PM Question Answer Comments Documentation of decision pr ocess for this code status: Patient and surrogate unable or unavailable to discuss. Defaulting to the previously documented code status. Chief Complaint and Reason for Visit Chief Complaint LONG-TERM LAB WOR K Chief Complaint LONG-TERM LAB WOR K LONG-TERM LAB WORK Chief Complaint LONG-TERM LABWORK LONG-TERM LAB WORK Chief Complaint LONG-TERM LAB WOR K LONG-TERM LABWORK LABWORK LABWORK Chief Complaint LONG-TERM LABWORK LABWORK LABWORK LONG-TERM LAB WORK Chief Complaint LABWORK LONG-TERM LAB WORK LONG-TERM LAB WORK LONG-TERM LAB WORK Chief Complaint LABWORK LONG-TERM LAB WORK LONG-TERM LAB WORK LONG-TERM LAB WORK LONG-TERM LAB WORK ARTERIAL EXAM Reason for Visit Non-pressure ulcer o f left lower extremity with fat layer exposed Pain in left leg PVD (peripheral vascular disease) Chief Complaint LABWORK LONG-TERM LAB WORK LONG-TERM LAB WORK LONG-TERM LAB WORK LONG-TERM LABWORK LONG-TERM LAB WORK ARTERIAL EXAM ARTERIAL EXAM Reason for Visit Non-pressure ulcer o f left lower extremity with fat layer exposed Pain in left leg PVD (peripheral vascular disease) 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 PVD (peripheral vascular disease) Chief Complaint LONG-TERM LAB WOR K LONG-TERM LAB WORK LONG-TERM LAB WORK LONG-TERM LABWORK LONG-TERM LAB WORK ARTERIAL EXAM ARTERIAL EXAM Reason for Visit Non-pressure ulcer o f left lower extremity with fat layer exposed Pain in left leg PVD (peripheral vascular disease) 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 PVD (peripheral vascular disease) Chief Complaint Admit Date LONG-TERM LAB WORK October 04, 2024 4 :00am LONG-TERM LAB WORK November 08, 2024 4:0 0am Chief Complaint Admit Date LONG-TERM LAB WORK October 04, 2024 4 :00am LONG-TERM LAB WORK November 08, 2024 4:0 0am gi January 24, 2025 9: 15pm Additional Source Comments INFORMATION SOURCE (unrecogn ized section and content) DATE CREATED AUTHOR 09/18/2020 [employer] [facility] DATE CREATED AUTHOR AUTHOR'S ORGANIZ ATION 03/27/2025 [employer] DATE CREATED AUTHOR AUTHOR'S ORGANIZ ATION 2025 [facility] Goals (unrecognized section and content) [...] BE BASED ON THE PRIMARY CLINICAL RECORDS. [employer] provides no warranty or guarantee of the accuracy or completeness of information in this document.
[2025-05-09 08:08] LABS: Hematocrit 28.3 % (37-47); Hemoglobin 7.5 g/dL (12.0-15.0); Mean Corp Hgb Conc 26.5 g/dL (32-36); Mean Corpuscular Volume 65.4 fL (81-99); Mean Platelet Vol. 9.7 fl (6.2-12.0); POSITIVE MORPHOLOGY YES; Platelet Count 359 K/mm3 (150-450); RBC Distribution Width CV 20.3 % (11.6-14.6); RBC Distribution Width SD 47.6 fl (35.1-43.9); Red Blood Count 4.33 M/mm3 (4.2-5.4); White Blood Count 6.5 K/mm3 (4.4-11.0)
[2025-05-09 08:17] LABS: Scan Indicated on CBC? Y/N YES- FLAGS NOTED
== END ==
LOC: OLS.SWAL 05:00
PROVIDERS: PCP Internal Medicine; Visit Provider Internal Medicine
DX: D64.9 Anemia, unspecified (principal)
CPT/HCPCS: 36415; 85027

== ENCOUNTER → 2025-05-18 05:00 | Outpatient (REF) | payer MEDICARE, MEDICAID, SELFPAY ==
--- OUTSIDE RECORDS SUMMARY | 2025-05-18 04:03 | XMS RPT_ITS | CCD ---
Author Organization [facility] Care Team Providers Care Permit Specialist Name Role Phone PAUL WEEKS CNP Primary [...] Primary Care Provider Unava ilcasey Weeks, Dr. tSeve Emergency Provider Unavailable Primary Care Provider UnavailMONTSERRAT [...] Propensity to adverse reactions (disorder) 9 Itching [facility] (13 sources) Aspirin Drug Allergy [address] [facility] (1 source) Aspirin Drug Allergy [address] [facility] Medications Current Medications Medication Drug [...] January 24, 2025 12:00am polyethylene glycol 3350 26574 mg powder for oral solution (10 sources) [...] at 0900, Until Discontinued polyethylene glycol 3350 169421 mg / potassium chloride 2970 mg / sodium bicarbonate 6740 mg / sodium chloride 5860 mg / sodium sulfate 75196 mg powder for oral solution (11 sources) Osmotic Laxative Start: 02-09-2025 End: 02-14-2026 polyethylene glycol (GOLYTELY) oral solution Use as directed prior to colonoscopy 4000 mL 02/14/2025 02/14/2026 Active sennosides, senior living 8.6 mg oral tablet (9 sources) Start: [...] at 0900, Until Discontinued polyethylene glycol 3350 810509 mg / potassium chloride 1480 mg / sodium bicarbonate 5720 mg / sodium chloride 01902 mg powder for oral solution (2 sources) [...] (1 source) Anticoagulant control - finding; Translations: [roasterman (current) use of 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s] 01-25-2025 Episodic Other aftercare (12 sources) Long-term current use of 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; Translations: [roasterman (current) use of 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s] Onset: 01-29-2025 01-31-2025 [...] )on 04-08-2025 BUN/CRE 14.6 RATIO Normal 10-[address] [facility] Comment on above: Order Comment: 155 Performed By: #### L 500.4100, L501.5200, L500.4050 #### [facility] [address] [place], [address] Calcium [Mass/Vol] 8.2 mg/dL Normal 7.6-11.0 [facility] Comment on above: Order Comment: 155 Performed By: #### L 500.4100, L501.5200, L500.4050 #### [facility] [address] [place], [address] Chloride [Moles/Vol] 106 mmol/L Normal 98-108 [facility] Comment on above: Order Comment: 155 Performed By: #### L 500.4100, L501.5200, L500.4050 #### [facility] [address] [place], [address] CO2 [Moles/Vol] 29.3 mmol/L Normal 21.0-32.[address] [facility] Comment on above: Order Comment: 155 Performed By: #### L 500.4100, L501.5200, L500.4050 #### [facility] [address] [place], [address] Creatinine [Mass/Vol] 0.60 mg/dL Low 0.70-1.20 [facility] Comment on above: Order Comment: 155 Performed By: #### L 500.4100, L501.5200, L500.4050 #### [facility] [address] [place], [address] GAP 6 Normal 5-[address] [facility] Comment on above: Order Comment: 155 Performed By: #### L 500.4100, L501.5200, L500.4050 #### [facility] [address] [place], [address] GFR/1.73 sq M.predicted among non-blacks MDRD (S/P/Bld) [Vol rate/Area] 90 mL/min/{1.73_m2} Normal >[address] [facility] Comment on above: Order Comment: 155 Result Comment: mL/m in/1.73m2 CKD-EPI Creatinine Equation (2020) Performed By: #### L 500.4100, L501.5200, L500.4050 #### [facility] [address] [place], [address] Glucose [Mass/Vol] 90 mg/dL Normal 70-99 [facility] Comment on above: Order Comment: 155 Performed By: #### L 500.4100, L501.5200, L500.4050 #### [facility] [address] [place], [address] Potassium [Moles/Vol] 4.1 mmol/L Normal 3.3-5.1 [facility] Comment on above: Order Comment: 155 Performed By: #### L 500.4100, L501.5200, L500.4050 #### [facility] [address] [place], [address] Sodium [Moles/Vol] 141 mmol/L Normal 133-145 [facility] Comment on above: Order Comment: 155 Performed By: #### L 500.4100, L501.5200, L500.4050 #### [facility] [address] [place], [address] Urea nitrogen [Mass/Vol] 9 mg/dL Normal 4-[address] [facility] Comment on above: Order Comment: 155 Performed By: #### L 500.4100, L501.5200, L500.4050 #### [facility] [address] [place], [address] CBC-Complete Blood Cnt No Di ffon 04-04-2025 Erythrocyte distribution width (RBC) [Ratio] 20.2 % High 11.6-14.[address] [facility] Comment on above: Order Comment: 155 Performed By: #### L 500.4100, L501.5200, L500.4050 #### [facility] [address] [place], [address] Hematocrit (Bld) [Volume fraction] 30.1 % Low 37-[address] [facility] Comment on above: Order Comment: 155 Performed By: #### L 500.4100, L501.5200, L500.4050 #### [facility] [address] [place], [address] Hemoglobin (Bld) [Mass/Vol] 8.1 g/dL Low 12.0-15.[address] [facility] Comment on above: Order Comment: 155 Performed By: #### L 500.4100, L501.5200, L500.4050 #### [facility] [address] [place], [address] MCH (RBC) [Entitic mass] 17.9 pg Low 27.0-32.[address] [facility] Comment on above: Order Comment: 155 Performed By: #### L 500.4100, L501.5200, L500.4050 #### [facility] [address] [place], [address] MCHC (RBC) [Mass/Vol] 26.9 g/dL Low 32-36 [facility] Comment on above: Order Comment: 155 Performed By: #### L 500.4100, L501.5200, L500.4050 #### [facility] [address] [place], [address] MCV (RBC) [Entitic vol] 66.6 fL Low 81-[address] [facility] Comment on above: Order Comment: 155 Performed By: #### L 500.4100, L501.5200, L500.4050 #### [facility] [address] [place], [address] Platelet mean volume (Bld) [Entitic vol] 9.7 fL Normal 6.2-12.[address] [facility] Comment on above: Order Comment: 155 Performed By: #### L 500.4100, L501.5200, L500.4050 #### [facility] [address] [place], [address] Platelets (Bld) [#/Vol] 448 10*3/uL Normal 150-[address] [facility] Comment on above: Order Comment: 155 Performed By: #### L 500.4100, L501.5200, L500.4050 #### [facility] [address] [place], [address] RBC (Bld) [#/Vol] 4.52 10*6/uL Normal 4.2-5.4 [facility] Comment on above: Order Comment: 155 Performed By: #### L 500.4100, L501.5200, L500.4050 #### [facility] [address] [place], [address] RDW SD 47.5 fl High 35.1-43.[address] [facility] Comment on above: Order Comment: 155 Performed By: #### L 500.4100, L501.5200, L500.4050 #### [facility] [address] [place], [address] WBC (Bld) [#/Vol] 6.6 10*3/uL Normal 4.4-11.0 [facility] Comment on above: Order Comment: 155 Performed By: #### L 500.4100, L501.5200, L500.4050 #### [facility] [address] [place], [address] Basic Metabolic Profile (BMP )on 03-30-2025 BUN/CRE 9.6 RATIO Low - [facility] Comment on above: Order Comment: 155 Performed By: #### L 500.4100, L501.5200, [id number] #### [facility] [address] [place], [address] Calcium [Mass/Vol] 8.1 mg/dL Normal 7.6-11.0 [facility] Comment on above: Order Comment: 155 Performed By: #### L 500.4100, L501.5200, L500.4050 #### [facility] [address] [place], [address] Chloride [Moles/Vol] 108 mmol/L Normal 98-108 [facility] Comment on above: Order Comment: 155 Performed By: #### L 500.4100, L501.5200, L500.4050 #### [facility] [address] [place], [address] CO2 [Moles/Vol] 26.7 mmol/L Normal 21.0-32.[address] [facility] Comment on above: Order Comment: 155 Performed By: #### L 500.4100, L501.5200, L500.4050 #### [facility] [address] [place], [address] Creatinine [Mass/Vol] 0.62 mg/dL Low 0.70-1.20 [facility] Comment on above: Order Comment: 155 Performed By: #### L 500.4100, L501.5200, L500.4050 #### [facility] [address] [place], [address] GAP 7 Normal 5-[address] [facility] Comment on above: Order Comment: 155 Performed By: #### L 500.4100, L501.5200, L500.4050 #### [facility] [address] [place], [address] GFR/1.73 sq M.predicted among non-blacks MDRD (S/P/Bld) [Vol rate/Area] 89 mL/min/{1.73_m2} Normal >[address] [facility] Comment on above: Order Comment: 155 Result Comment: mL/m in/1.73m2 CKD-EPI Creatinine Equation (2020) Performed By: #### L 500.4100, L501.5200, L500.4050 #### [facility] [address] [place], [address] Glucose [Mass/Vol] 89 mg/dL Normal 70-99 [facility] Comment on above: Order Comment: 155 Performed By: #### L 500.4100, L501.5200, L500.4050 #### [facility] [address] [place], [address] Potassium [Moles/Vol] 3.8 mmol/L Normal 3.3-5.1 [facility] Comment on above: Order Comment: 155 Performed By: #### L 500.4100, L501.5200, L500.4050 #### [facility] [address] [place], [address] Sodium [Moles/Vol] 142 mmol/L Normal 133-145 [facility] Comment on above: Order Comment: 155 Performed By: #### L 500.4100, L501.5200, L500.4050 #### [facility] [address] [place], [address] Urea nitrogen [Mass/Vol] 6 mg/dL Normal 4-[address] [facility] Comment on above: Order Comment: 155 Performed By: #### L 500.4100, L501.5200, L500.4050 #### [facility] [address] [place], [address] CBC-Complete Blood Cnt No Di ffon 03-30-2025 Erythrocyte distribution width (RBC) [Ratio] 19.9 % High 11.6-14.[address] [facility] Comment on above: Order Comment: 155 Performed By: #### L 500.4100, L501.5200, L500.4050 #### [facility] [address] [place], [address] Hematocrit (Bld) [Volume fraction] 27.0 % Low 37-[address] [facility] Comment on above: Order Comment: 155 Performed By: #### L 500.4100, L501.5200, L500.4050 #### [facility] [address] [place], [address] Hemoglobin (Bld) [Mass/Vol] 7.3 g/dL Low 12.0-15.[address] [facility] Comment on above: Order Comment: 155 Performed By: #### L 500.4100, L501.5200, L500.4050 #### [facility] [address] [place], [address] MCH (RBC) [Entitic mass] 18.1 pg Low 27.0-32.[address] [facility] Comment on above: Order Comment: 155 Performed By: #### L 500.4100, L501.5200, L500.4050 #### [facility] [address] [place], [address] MCHC (RBC) [Mass/Vol] 27.0 g/dL Low 32-36 [facility] Comment on above: Order Comment: 155 Performed By: #### L 500.4100, L501.5200, L500.4050 #### [facility] [address] [place], [address] MCV (RBC) [Entitic vol] 67.0 fL Low 81-[address] [facility] Comment on above: Order Comment: 155 Performed By: #### L 500.4100, L501.5200, L500.4050 #### [facility] [address] [place], [address] Platelet mean volume (Bld) [Entitic vol] 10.0 fL Normal 6.2-12.[address] [facility] Comment on above: Order Comment: 155 Performed By: #### L 500.4100, L501.5200, L500.4050 #### [facility] [address] [place], [address] Platelets (Bld) [#/Vol] 282 10*3/uL Normal 150-[address] [facility] Comment on above: Order Comment: 155 Performed By: #### L 500.4100, L501.5200, L500.4050 #### [facility] [address] [place], [address] RBC (Bld) [#/Vol] 4.03 10*6/uL Low 4.2-5.4 [facility] Comment on above: Order Comment: 155 Performed By: #### L 500.4100, L501.5200, L500.4050 #### [facility] [address] [place], [address] RDW SD 47.3 fl High 35.1-43.[address] [facility] Comment on above: Order Comment: 155 Performed By: #### L 500.4100, L501.5200, L500.4050 #### [facility] [address] [place], [address] WBC (Bld) [#/Vol] 5.4 10*3/uL Normal 4.4-11.0 [facility] Comment on above: Order Comment: 155 Performed By: #### L 500.4100, L501.5200, L500.4050 #### [facility] [address] [place], [address] Pro- Brain NATRIURETIC PEPTI Kel 03-30-2025 Natriuretic peptide B (Bld) [Mass/Vol] 180 pg/mL Normal <=[address] [facility] Comment on above: Order Comment: 155 Result Comment: Hear t Failure Unlikely: < 300 pg/mL Heart Failure Likely < 50 Years: > 450 pg/mL 50-75 Years: > 900 pg/mL >75 Years: > 1800 pg/mL Performed By: #### L 500.4100, L501.5200, L500.4050 #### [facility] [address] [place], [address] Basic Metabolic Profile (BMP )on 02-16-2025 BUN/CRE 10.6 RATIO Normal 10-[address] [facility] Comment on above: Order Comment: 155 Performed By: #### L 500.4100, L501.5200, L500.4050 #### [facility] [address] [place], [address] Calcium [Mass/Vol] 8.7 mg/dL Normal 7.6-11.0 [facility] Comment on above: Order Comment: 155 Performed By: #### L 500.4100, L501.5200, L500.4050 #### [facility] [address] [place], [address] Chloride [Moles/Vol] 107 mmol/L Normal 98-108 [facility] Comment on above: Order Comment: 155 Performed By: #### L 500.4100, L501.5200, L500.4050 #### [facility] [address] [place], [address] CO2 [Moles/Vol] 23.8 mmol/L Normal 21.0-32.[address] [facility] Comment on above: Order Comment: 155 Performed By: #### L 500.4100, L501.5200, L500.4050 #### [facility] [address] [place], [address] Creatinine [Mass/Vol] 0.62 mg/dL Low 0.70-1.20 [facility] Comment on above: Order Comment: 155 Performed By: #### L 500.4100, L501.5200, L500.4050 #### [facility] [address] [place], [address] GAP 11 Normal 5-[address] [facility] Comment on above: Order Comment: 155 Performed By: #### L 500.4100, L501.5200, L500.4050 #### [facility] [address] [place], [address] GFR/1.73 sq M.predicted among non-blacks MDRD (S/P/Bld) [Vol rate/Area] 89 mL/min/{1.73_m2} Normal >[address] [facility] Comment on above: Order Comment: 155 Result Comment: mL/m in/1.73m2 CKD-EPI Creatinine Equation (2020) Performed By: #### L 500.4100, L501.5200, L500.4050 #### [facility] [address] [place], [address] Glucose [Mass/Vol] 93 mg/dL Normal 70-99 [facility] Comment on above: Order Comment: 155 Performed By: #### L 500.4100, L501.5200, L500.4050 #### [facility] [address] [place], [address] Potassium [Moles/Vol] 4.3 mmol/L Normal 3.3-5.1 [facility] Comment on above: Order Comment: 155 Performed By: #### L 500.4100, L501.5200, L500.4050 #### [facility] [address] [place], [address] Sodium [Moles/Vol] 141 mmol/L Normal 133-145 [facility] Comment on above: Order Comment: 155 Performed By: #### L 500.4100, L501.5200, L500.4050 #### [facility] [address] [place], [address] Urea nitrogen [Mass/Vol] 7 mg/dL Normal 4-[address] [facility] Comment on above: Order Comment: 155 Performed By: #### L 500.4100, L501.5200, L500.4050 #### [facility] [address] [place], [address] CBC-Complete Blood Cnt No Di ffon 02-16-2025 Erythrocyte distribution width (RBC) [Ratio] 19.4 % High 11.6-14.[address] [facility] Comment on above: Order Comment: 155 Performed By: #### L 500.4100, L501.5200, L500.4050 #### [facility] [address] [place], [address] Hematocrit (Bld) [Volume fraction] 27.4 % Low 37-[address] [facility] Comment on above: Order Comment: 155 Performed By: #### L 500.4100, L501.5200, L500.4050 #### [facility] [address] [place], [address] Hemoglobin (Bld) [Mass/Vol] 7.7 g/dL Low 12.0-15.[address] [facility] Comment on above: Order Comment: 155 Performed By: #### L 500.4100, L501.5200, L500.4050 #### [facility] [address] [place], [address] MCH (RBC) [Entitic mass] 21.1 pg Low 27.0-32.[address] [facility] Comment on above: Order Comment: 155 Performed By: #### L 500.4100, L501.5200, L500.4050 #### [facility] [address] [place], [address] MCHC (RBC) [Mass/Vol] 28.1 g/dL Low 32-36 [facility] Comment on above: Order Comment: 155 Performed By: #### L 500.4100, L501.5200, L500.4050 #### [facility] [address] [place], [address] MCV (RBC) [Entitic vol] 75.1 fL Low 81-[address] [facility] Comment on above: Order Comment: 155 Performed By: #### L 500.4100, L501.5200, L500.4050 #### [facility] [address] [place], [address] Platelet mean volume (Bld) [Entitic vol] 9.2 fL Normal 6.2-12.[address] [facility] Comment on above: Order Comment: 155 Performed By: #### L 500.4100, L501.5200, L500.4050 #### [facility] [address] [place], [address] Platelets (Bld) [#/Vol] 462 10*3/uL High 150-[address] [facility] Comment on above: Order Comment: 155 Performed By: #### L 500.4100, L501.5200, L500.4050 #### [facility] [address] [place], [address] RBC (Bld) [#/Vol] 3.65 10*6/uL Low 4.2-5.4 [facility] Comment on above: Order Comment: 155 Performed By: #### L 500.4100, L501.5200, L500.4050 #### [facility] [address] [place], [address] RDW SD 52.3 fl High 35.1-43.[address] [facility] Comment on above: Order Comment: 155 Performed By: #### L 500.4100, L501.5200, L500.4050 #### [facility] [address] [place], [address] WBC (Bld) [#/Vol] 6.9 10*3/uL Normal 4.4-11.0 [facility] Comment on above: Order Comment: 155 Performed By: #### L 500.4100, L501.5200, L500.4050 #### [facility] [address] [place], [address] Basic Metabolic Profile (BMP )on 02-09-2025 BUN/CRE 10.8 RATIO Normal 10-[address] [facility] Comment on above: Order Comment: 155 Performed By: #### L 500.4100, L501.5200, L500.4050 #### [facility] [address] [place], [address] Calcium [Mass/Vol] 8.6 mg/dL Normal 7.6-11.0 [facility] Comment on above: Order Comment: 155 Performed By: #### L 500.4100, L501.5200, L500.4050 #### [facility] [address] [place], [address] Chloride [Moles/Vol] 106 mmol/L Normal 98-108 [facility] Comment on above: Order Comment: 155 Performed By: #### L 500.4100, L501.5200, L500.4050 #### [facility] [address] [place], [address] CO2 [Moles/Vol] 25.8 mmol/L Normal 21.0-32.[address] [facility] Comment on above: Order Comment: 155 Performed By: #### L 500.4100, L501.5200, L500.4050 #### [facility] [address] [place], [address] Creatinine [Mass/Vol] 0.70 mg/dL Normal 0.70-1.20 [facility] Comment on above: Order Comment: 155 Performed By: #### L 500.4100, L501.5200, L500.4050 #### [facility] [address] [place], [address] GAP 9 Normal 5-[address] [facility] Comment on above: Order Comment: 155 Performed By: #### L 500.4100, L501.5200, L500.4050 #### [facility] [address] [place], [address] GFR/1.73 sq M.predicted among non-blacks MDRD (S/P/Bld) [Vol rate/Area] 86 mL/min/{1.73_m2} Normal >[address] [facility] Comment on above: Order Comment: 155 Result Comment: mL/m in/1.73m2 CKD-EPI Creatinine Equation (2020) Performed By: #### L 500.4100, L501.5200, L500.4050 #### [facility] [address] [place], [address] Glucose [Mass/Vol] 104 mg/dL High 70-99 [facility] Comment on above: Order Comment: 155 Performed By: #### L 500.4100, L501.5200, L500.4050 #### [facility] [address] [place], [address] Potassium [Moles/Vol] 4.8 mmol/L Normal 3.3-5.1 [facility] Comment on above: Order Comment: 155 Performed By: #### L 500.4100, L501.5200, L500.4050 #### [facility] [address] [place], [address] Sodium [Moles/Vol] 141 mmol/L Normal 133-145 [facility] Comment on above: Order Comment: 155 Performed By: #### L 500.4100, L501.5200, [id number] #### [facility] [address] [place], [address] Urea nitrogen [Mass/Vol] 8 mg/dL Normal 4-[address] [facility] Comment on above: Order Comment: 155 Performed By: #### L 500.4100, L501.5200, L500.4050 #### [facility] [address] [place], [address] CBC-Complete Blood Cnt No Di ffon 02-09-2025 Erythrocyte distribution width (RBC) [Ratio] 19.7 % High 11.6-14.[address] [facility] Comment on above: Order Comment: 155 Performed By: #### L 500.4100, L501.5200, L500.4050 #### [facility] [address] [place], [address] Hematocrit (Bld) [Volume fraction] 26.2 % Low 37-[address] [facility] Comment on above: Order Comment: 155 Performed By: #### L 500.4100, L501.5200, L500.4050 #### [facility] [address] [place], [address] Hemoglobin (Bld) [Mass/Vol] 7.7 g/dL Low 12.0-15.[address] [facility] Comment on above: Order Comment: 155 Performed By: #### L 500.4100, L501.5200, L500.4050 #### [facility] [address] [place], [address] MCH (RBC) [Entitic mass] 22.2 pg Low 27.0-32.[address] [facility] Comment on above: Order Comment: 155 Performed By: #### L 500.4100, L501.5200, L500.4050 #### [facility] [address] [place], [address] MCHC (RBC) [Mass/Vol] 29.4 g/dL Low 32-36 [facility] Comment on above: Order Comment: 155 Performed By: #### L 500.4100, L501.5200, L500.4050 #### [facility] [address] [place], [address] MCV (RBC) [Entitic vol] 75.5 fL Low 81-[address] [facility] Comment on above: Order Comment: 155 Performed By: #### L 500.4100, L501.5200, L500.4050 #### [facility] [address] [place], [address] Platelet mean volume (Bld) [Entitic vol] 9.5 fL Normal 6.2-12.[address] [facility] Comment on above: Order Comment: 155 Performed By: #### L 500.4100, L501.5200, L500.4050 #### [facility] [address] [place], [address] Platelets (Bld) [#/Vol] 559 10*3/uL High 150-[address] [facility] Comment on above: Order Comment: 155 Performed By: #### L 500.4100, L501.5200, L500.4050 #### [facility] [address] [place], [address] RBC (Bld) [#/Vol] 3.47 10*6/uL Low 4.2-5.4 [facility] Comment on above: Order Comment: 155 Performed By: #### L 500.4100, L501.5200, L500.4050 #### [facility] [address] [place], [address] RDW SD 53.1 fl High 35.1-43.[address] [facility] Comment on above: Order Comment: 155 Performed By: #### L 500.4100, L501.5200, L500.4050 #### [facility] [address] [place], [address] WBC (Bld) [#/Vol] 8.7 10*3/uL Normal 4.4-11.0 [facility] Comment on above: Order Comment: 155 Performed By: #### L 500.4100, L501.5200, L500.4050 #### [facility] [address] [place], [address] CBC-Complete Blood Cnt No Di ffon 02-02-2025 Erythrocyte distribution width (RBC) [Ratio] 19.4 % High 11.6-14.[address] [facility] Comment on above: Order Comment: 155 Performed By: #### L 500.4100, L501.5200, L500.4050 #### [facility] [address] [place], [address] Hematocrit (Bld) [Volume fraction] 27.5 % Low 37-[address] [facility] Comment on above: Order Comment: 155 Performed By: #### L 500.4100, L501.5200, L500.4050 #### [facility] [address] [place], [address] Hemoglobin (Bld) [Mass/Vol] 8.0 g/dL Low 12.0-15.[address] [facility] Comment on above: Order Comment: 155 Performed By: #### L 500.4100, L501.5200, L500.4050 #### [facility] [address] [place], [address] MCH (RBC) [Entitic mass] 22.5 pg Low 27.0-32.[address] [facility] Comment on above: Order Comment: 155 Performed By: #### L 500.4100, L501.5200, L500.4050 #### [facility] [address] [place], [address] MCHC (RBC) [Mass/Vol] 29.1 g/dL Low 32-36 [facility] Comment on above: Order Comment: 155 Performed By: #### L 500.4100, L501.5200, L500.4050 #### [facility] [address] [place], [address] MCV (RBC) [Entitic vol] 77.5 fL Low 81-[address] [facility] Comment on above: Order Comment: 155 Performed By: #### L 500.4100, L501.5200, L500.4050 #### [facility] [address] [place], [address] Platelet mean volume (Bld) [Entitic vol] 10.5 fL Normal 6.2-12.[address] [facility] Comment on above: Order Comment: 155 Performed By: #### L 500.4100, L501.5200, L500.4050 #### [facility] [address] [place], [address] Platelets (Bld) [#/Vol] 376 10*3/uL Normal 150-[address] [facility] Comment on above: Order Comment: 155 Performed By: #### L 500.4100, L501.5200, L500.4050 #### [facility] [address] [place], [address] RBC (Bld) [#/Vol] 3.55 10*6/uL Low 4.2-5.4 [facility] Comment on above: Order Comment: 155 Performed By: #### L 500.4100, L501.5200, L500.4050 #### [facility] [address] [place], [address] RDW SD 54.1 fl High 35.1-43.[address] [facility] Comment on above: Order Comment: 155 Performed By: #### L 500.4100, L501.5200, L500.4050 #### [facility] [address] [place], [address] WBC (Bld) [#/Vol] 11.8 10*3/uL High 4.4-11.0 [facility] Comment on above: Order Comment: 155 Performed By: #### L 500.4100, L501.5200, L500.4050 #### [facility] [address] [place], [address] Comprehensive Metabolic Prof [facility] 02-02-2025 Albumin [Mass/Vol] 3.4 g/dL Normal 3.4-4.8 [facility] Comment on above: Order Comment: 155 Performed By: #### L 500.4100, L501.5200, L500.4050 #### [facility] [address] [place], [address] Albumin/Globulin [Mass ratio] 1.3 {ratio} Normal 0.9-2.[address] [facility] Comment on above: Order Comment: 155 Performed By: #### L 500.4100, L501.5200, L500.4050 #### [facility] [address] [place], [address] ALK PHOS 102 U/L Normal 35-[address] [facility] Comment on above: Order Comment: 155 Performed By: #### L 500.4100, L501.5200, L500.4050 #### [facility] [address] [place], [address] ALT [Catalytic activity/Vol] 12 U/L Normal <=[address] [facility] Comment on above: Order Comment: 155 Performed By: #### L 500.4100, L501.5200, L500.4050 #### [facility] [address] [place], [address] AST [Catalytic activity/Vol] 27 U/L Normal <=[address] [facility] Comment on above: Order Comment: 155 Performed By: #### L 500.4100, L501.5200, L500.4050 #### [facility] [address] [place], [address] Bilirubin [Mass/Vol] 1.49 mg/dL High 0.00-1.30 [facility] Comment on above: Order Comment: 155 Performed By: #### L 500.4100, L501.5200, L500.4050 #### [facility] [address] [place], [address] BUN/CRE 12.3 RATIO Normal 10-[address] [facility] Comment on above: Order Comment: 155 Performed By: #### L 500.4100, L501.5200, L500.4050 #### [facility] [address] [place], [address] Calcium [Mass/Vol] 8.5 mg/dL Normal 7.6-11.0 [facility] Comment on above: Order Comment: 155 Performed By: #### L 500.4100, L501.5200, L500.4050 #### [facility] [address] [place], [address] Chloride [Moles/Vol] 102 mmol/L Normal 98-108 [facility] Comment on above: Order Comment: 155 Performed By: #### L 500.4100, L501.5200, L500.4050 #### [facility] [address] [place], [address] CO2 [Moles/Vol] 23.0 mmol/L Normal 21.0-32.[address] [facility] Comment on above: Order Comment: 155 Performed By: #### L 500.4100, L501.5200, L500.4050 #### [facility] [address] [place], [address] Creatinine [Mass/Vol] 0.71 mg/dL Normal 0.70-1.20 [facility] Comment on above: Order Comment: 155 Performed By: #### L 500.4100, L501.5200, L500.4050 #### [facility] [address] [place], [address] GAP 11 Normal 5-[address] [facility] Comment on above: Order Comment: 155 Performed By: #### L 500.4100, L501.5200, L500.4050 #### [facility] [address] [place], [address] GFR/1.73 sq M.predicted among non-blacks MDRD (S/P/Bld) [Vol rate/Area] 84 mL/min/{1.73_m2} Normal >[address] [facility] Comment on above: Order Comment: 155 Result Comment: mL/m in/1.73m2 CKD-EPI Creatinine Equation (2020) Performed By: #### L 500.4100, L501.5200, L500.4050 #### [facility] [address] [place], [address] Globulin (S) [Mass/Vol] 2.6 g/dL Normal 2.2-4.[address] [facility] Comment on above: Order Comment: 155 Performed By: #### L 500.4100, L501.5200, L500.4050 #### [facility] [address] [place], [address] Glucose [Mass/Vol] 101 mg/dL High 70-99 [facility] Comment on above: Order Comment: 155 Performed By: #### L 500.4100, L501.5200, L500.4050 #### [facility] [address] [place], [address] Potassium [Moles/Vol] 4.1 mmol/L Normal 3.3-5.1 [facility] Comment on above: Order Comment: 155 Performed By: #### L 500.4100, L501.5200, L500.4050 #### [facility] [address] [place], [address] Sodium [Moles/Vol] 136 mmol/L Normal 133-145 [facility] Comment on above: Order Comment: 155 Performed By: #### L 500.4100, L501.5200, L500.4050 #### [facility] [address] [place], [address] T PROT 6.0 g/dL Normal 5.9-8.[address] [facility] Comment on above: Order Comment: 155 Performed By: #### L 500.4100, L501.5200, L500.4050 #### [facility] [address] [place], [address] Urea nitrogen [Mass/Vol] 9 mg/dL Normal 4-[address] [facility] Comment on above: Order Comment: 155 Performed By: #### L 500.4100, L501.5200, L500.4050 #### [facility] [address] [place], [address] Vitamin B12on 02-02-2025 Cobalamin (Vitamin B12) [Mass/Vol] 650 pg/mL Normal 180-[address] [facility] Comment on above: Order Comment: 155 Performed By: #### L 500.4100, L501.5200, L500.4050 #### [facility] [address] [place], [address] Vitamin D,25 Hydroxyon 02-02 Vitamin D 25-OH 46.4 ng/mL Normal 30-[address] [facility] Comment on above: Order Comment: 155 Result Comment: Alessandra min D Status Deficiency: <20 ng/mL (50nmol/L) Insufficiency: 20-30 ng/mL (50-75 nmol/L) Sufficiency: 30-100 ng/mL (75-250 nmol/L) Toxicity: >100 ng/mL (>250 nmol/L) Performed By: #### L 500.4100, L501.5200, L500.4057 #### [facility] [address] [place], [address] XA ADDITIONAL VESSELS (KATYA)o n 02-01-2025 XA [...] and the sheath exchanged for a 5 [employer] Helen[employer] hemostatic sheath. Under fluoroscopic guidance, a 5 [employer] Sos-2 catheter was used to catheterize the superior mesenteric artery. SMA angiography was performed. The catheter was then repositioned into the celiac artery and celiac angiography was performed. The 5 [employer] diagnostic sheath was exchanged over wire for a 6 [employer]ian long angled sheath. Sheath was advanced into [...] agree with the resident's interpretation. Normal [facility] XA ART EMBO NON HEMORRHAGE ( [...] and the sheath exchanged for a 5 [employer] Helenian hemostatic sheath. Under fluoroscopic guidance, a 5 [employer] Sos-2 catheter was used to catheterize the superior mesenteric artery. SMA angiography was performed. The catheter was then repositioned into the celiac artery and celiac angiography was performed. The 5 [employer] diagnostic sheath was exchanged over wire for a 6 [employer] Helenian long angled sheath. Sheath was advanced into [...] agree with the resident's interpretation. Normal [facility] XA CELIAC ARTERY (KATYA)on XA CELIAC [...] and the sheath exchanged for a 5 [employer]ian hemostatic sheath. Under fluoroscopic guidance, a 5 [facility] [employer] Sos-2 catheter was used to catheterize the superior mesenteric artery. SMA angiography was performed. The catheter was then repositioned into the celiac artery and celiac angiography was performed. The 5 [facility] [employer] diagnostic sheath was exchanged over wire for a 6 [employer]ian long angled sheath. Sheath was advanced into [...] (Bld) [#/Vol] 0.06 10*3/uL Normal 0.00-0.20 [facility] Comment on above: Performed By: #### Aruna Olivas, CH8 #### [facility] [address] [place] [address], Basophils/100 WBC (Bld) 0.5 % Normal <=1.9 [facility] Comment on above: Performed By: #### Aruna Olivas, CH8 #### [facility] [address] [place] [address], Eosinophils (Bld) [#/Vol] 0.15 10*3/uL Normal 0.00-0.70 [facility] Comment on above: Performed By: #### Aruna Olivas, CH8 #### [facility] [address] [place] [address], Eosinophils/100 WBC (Bld) 1.4 % Normal 0.1-4.0 [facility] Comment on above: Performed By: #### Aruna Olivas, CH8 #### [facility] [address] [place] [address], Erythrocyte distribution width (RBC) [Ratio] 21.7 % High 11.5-14.5 [facility] Comment on above: Performed By: #### Aruna Olivas, CH8 #### [facility] [address] [place] [address], Hematocrit (Bld) [Volume fraction] 25.5 % Low 36.0-46.0 [facility] Comment on above: Performed By: #### Aruna Olivas, CH8 #### [facility] [address] [place] [address], Hemoglobin (Bld) [Mass/Vol] 8.1 g/dL Low 12.0-15.0 [facility] Comment on above: Performed By: #### Aruna Olivas, CH8 #### [facility] [address] [place] [address], Lymphocytes (Bld) [#/Vol] 1.13 10*3/uL Normal 1.00-4.80 [facility] Comment on above: Performed By: #### Aruna Olivas, CH8 #### S PATHOLOGY LABORATORY [address] [place] [address], Lymphocytes/100 WBC (Bld) 10.6 % Low 24.0-44.0 [facility] Comment on above: Performed By: #### Aruna Olivas, CH8 #### [facility] [address] [place] [address], MCH (RBC) [Entitic mass] 23.3 pg Low 26.0-34.0 [facility] Comment on above: Performed By: #### Aruna Olivas, CH8 #### [facility] [address] [place] [address], MCHC (RBC) [Mass/Vol] 31.8 g/dL Low 32.0-35.9 [facility] Comment on above: Performed By: #### Aruna Olivas, CH8 #### S PATHOLOG[facility] LABOR[facility]ORY [address] [place] [address], MCV (RBC) [Entitic vol] 73 fL Low 80-100 [facility] Comment on above: Performed By: #### Aruna Olivas, CH8 #### [facility] [address] [place] [address], Monocytes (Bld) [#/Vol] 1.76 10*3/uL High 0.20-1.00 [facility] Comment on above: Performed By: #### Aruna Olivas, CH8 #### S PATH[facility] LABOR[facility] [address] [place] [address], Monocytes/100 WBC (Bld) 16.5 % High 2.0-11.0 [facility] Comment on above: Performed By: #### Aruna Olivas, CH8 #### [facility] [address] [place], [place], Neutrophils (Bld) [#/Vol] 7.56 10*3/uL Normal 1.50-8.00 [facility] Comment on above: Performed By: #### Aruna Olivas, CH8 #### [facility] [address] [place], [place], Neutrophils/100 WBC (Bld) 71.0 % Normal 31.0-76.0 [facility] Comment on above: Performed By: #### Aruna Olivas, CH8 #### [facility] [address] [place], [place], Platelet mean volume (Bld) [Entitic vol] 8.1 fL Normal 7.5-11.2 [facility] Comment on above: Performed By: #### Aruna Olivas, CH8 #### [facility] [address] [place], [place], Platelets (Bld) [#/Vol] 209 10*3/uL Normal 150-400 [facility] Comment on above: Performed By: #### Aruna Olivas, CH8 #### [facility] [address] [place], [place], RBC (Bld) [#/Vol] 3.47 10*6/uL Low 4.00-5.20 [facility] Comment on above: Performed By: #### Aruna Olivas, CH8 #### [facility] [address] [place], [place], WBC (Bld) [#/Vol] 10.6 10*3/uL Normal 4.5-11.5 [facility] Comment on above: Performed By: #### Aruna Olivas, CH8 #### [facility] [address] [place], [place], Discharge Planning Noteon [employer]per Authentication Interface Message Text SW/CM aware that patient meets criteria for HHC. Spoke with Pts son over the phone to discuss dispo. Patient open and agreeable to HHC. CM provided Pt son the quality and resource use measure data from available post-acute (PAC) providers, that best align with the patient's treatment goals and preferences from the medicare.gov compare site for [facility]. [place] of Choice was provided to the patient/patient guest relations representative. CM to follow up with accepting agencies. CM to continue to follow. ADDENDUM: CM spoke with Debra Campbell from [facility] and she states that the patient can receive therapy under Medicare part B from PT at her AL if she so wishes. CM will continue to follow additional discharge planning needs. ADDENDUM: CM spoke with Pt son and notified him that patient would be discharge back to her AL today. Son stated that he would be at to worm picker pt and transport her back to [facility] after 5pm. CM will continue to follow. Breanna Wilder MSN, RN Inpatient Rn Surgical W Cell [phone] Desk [phone] Normal [facility] MANUAL DIFF AND MORPHon 08-2 Acanthocytes LM Ql (Bld) Few [facility] [place] cells LM Ql (Bld) Few [facility] Cells Counted Total (Bld) [#] [facility] Microcytes Ql (Bld) Slight [facility] Ovalocytes LM Ql (Bld) Few [facility] RBC.hypochromic/100 RBC Auto (Bld) Moderate [facility] Schistocytes LM Ql (Bld) Few [facility] ACANTHOCYTES Few Normal [facility] Comment on above: Performed By: #### Aruna Olivas CH8 #### [facility] [address] [place] [address], CARLOS CELLS Few Normal [facility] Comment on above: Performed By: #### Aruna Olivas CH8 #### [facility] [address] [place] [address], CELLS COUNTED TOTAL # IN BLOOD Normal [facility] Comment on above: Performed By: #### Aruna Olivas CH8 #### [facility] [address] [place] [address], FRAGMENTED RBC Few Normal [facility] Comment on above: Performed By: #### Aruna Olivas CH8 #### [facility] [address] [place] [address], HYPOCHROMASIA Moderate Normal [facility] Comment on above: Performed By: #### M Deisy, CH8 #### S PATHOLOGY LABORATORY [address] [place], [place], MICROCYTOSIS Slight Normal [facility] Comment on above: Performed By: #### M Deisy, CH8 #### S PATHOLOG[facility] LABORATORY [address] [place], [place], OVALOCYTES Few Normal [facility] Comment on above: Performed By: #### M Deisy, CH8 #### S PATHOLOGY LABORATORY [address] [place], [place], No Panel Informationon 01-31 [facility] Assessment AND Plan Noteon 0 01-30-2025 [employer]per Authentication Interface Message Text --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 Whittaker or until AC restarted. Normal [facility] [employer] Interface Message Text --trend CBC daily, transfuse [...] resume anticoagulation after polyp biopsy Normal [facility] Beestar Authentication Interface Message Text --chronic. stable. continue home statin Normal [facility] BASIC METABOLIC PANELon 08-2 Anion gap [Moles/Vol] 11 mmol/L Normal 10-20 [facility] Comment on above: Performed By: #### M G, CH8 ####S PATHOLOGY [id number] [place], [place], Calcium [Mass/Vol] 8.1 mg/dL Low 8.6-10.3 [facility] Comment on above: Performed By: #### Aruna Olivas, CH8 ####S PATHOLOGY [id number] [place], [place], Chloride [Moles/Vol] 106 mmol/L Normal 98-107 [facility] Comment on above: Performed By: #### Aruna Olivas, CH8 ####S PATHOLOGY [id number] [place], CO2 [Moles/Vol] 27 mmol/L Normal 21-31 [facility] Comment on above: Performed By: #### Aruna Olivas, CH8 ####S PATHOLOGY [id number] [place], [place], Creatinine [Mass/Vol] 0.51 mg/dL Low 0.60-1.20 [facility] Comment on above: Performed By: #### Aruna Olivas, CH8 ####S PATHOLOGY [id number] [place], ESTIMATED GFR (CKD-EPI) 93 mL/min/1.73sqm Normal >=60 [facility] Comment on above: Result Comment: 2020 [...] Inclusion of Race in Diagnosing Kidney Disease. [place] Journal of Kidney Diseases 2021;79(2):268-88.e1. 2. N Engl J Med 1 Vol. 385 Issue 19 Pages 9764-1173 Performed By: #### Aruna Olivas, CH8 ####S PATHOLOGY [id number] [place], [place], Glucose [Mass/Vol] 94 mg/dL Normal 74-109 [facility] Comment on above: Performed By: #### Aruna Olivas, CH8 ####S PATHOLOGY [id number] [place], [place], Potassium [Moles/Vol] 4.1 mmol/L Normal 3.5-5.0 [facility] Comment on above: Performed By: #### Aruna Olivas, CH8 ####[facility] [id number] [place], Sodium [Moles/Vol] 140 mmol/L Normal 136-145 [facility] Comment on above: Performed By: #### Aruna Olivas, CH8 ####[facility] [id number] [place], [place], Urea nitrogen [Mass/Vol] 6 mg/dL Low 7-25 [facility] Comment on above: Performed By: #### Aruna Olivas, CH8 ####S PATHOLOGY [id number] [place], [place], Basic metabolic 2000 panelon 01-30-2025 Anion gap [Moles/Vol] 11 mmol/L 10 - 20 [facility] [Mass/Vol] 8.1 mg/dL Low 8.6 - 10. 3 mg/dL [facility] Chloride [Moles/Vol] 106 mmol/L 98 - 10 7 mmol/L [facility] CO2 [Moles/Vol] 27 mmol/L 21 - 31 mmol/L [facility] Creatinine [Mass/Vol] 0.51 mg/dL Low 0.60 - 1.20 mg/dL [facility] GFR/1.73 sq M.predicted CKD-EPI (S/P/Bld) [Vol rate/Area] 93 - PINF [facility] Comment on above: 2020 CKD [...] Inclusion of Race in Diagnosing Kidney Disease. Swedish Journal of Kidney Diseases 202;79(2):268-88.e1. 2. N Engl J Med 2021 Vol. 385 Issue 19 Pages 5986-0556 Glucose [Mass/Vol] 94 mg/dL 74 - 109 [...] [#/Vol] 9.6 10*3/uL 4.5 - 11.5 K/uL [facility] CBC WITH DIFFERENTIALon 01-08 Basophils (Bld) [#/Vol] 0.05 10*3/uL Normal 0.00-0.20 [facility] Comment on above: Performed By: ###Roger Olivas CH8 #### [facility] PATH[facility] LABORATORY [address] [place] [address], Basophils/100 WBC (Bld) 0.5 % Normal <=1.9 The [facility] Comment on above: Performed By: ###Roger Olivas CH8 #### [facility]OR[facility]ORY [address] [place] [address], Eosinophils (Bld) [#/Vol] 0.13 10*3/uL Normal 0.00-0.70 [facility] Comment on above: Performed By: ###Roger Olivas CH8 #### [facility] [address] [place] [address], Eosinophils/100 WBC (Bld) 1.4 % Normal 0.1-4.0 The [facility] Comment on above: Performed By: ###Roger Oliavs CH8 #### [facility] PATH[facility] [address] [place] [address], Erythrocyte distribution width (RBC) [Ratio] 20.9 % High 11.5-14.5 [facility] Comment on above: Performed By: ###Roger Olivas CH8 #### [facility] PATH[facility] [address] [place] [address], Hematocrit (Bld) [Volume fraction] 24.2 % Low 36.0-46.0 [facility] Comment on above: Performed By: #### Aruna Olivas, CH8 #### [facility] [address] [place] [address], Hemoglobin (Bld) [Mass/Vol] 7.9 g/dL Low 12.0-15.0 [facility] Comment on above: Performed By: #### Aruna Olivas, CH8 #### [facility] [address] [place] [address], Lymphocytes (Bld) [#/Vol] 1.02 10*3/uL Normal 1.00-4.80 [facility] Comment on above: Performed By: #### Aruna Olivas, CH8 #### [facility] [address] [place] [address], Lymphocytes/100 WBC (Bld) 10.6 % Low 24.0-44.0 [facility] Comment on above: Performed By: #### Aruna Olivas, CH8 #### [facility] [address] [place] [address], MCH (RBC) [Entitic mass] 23.3 pg Low 26.0-34.0 The [facility] Comment on above: Performed By: #### Aruna Olivas, CH8 #### [facility] [address] [place] [address], MCHC (RBC) [Mass/Vol] 32.7 g/dL Normal 32.0-35.9 [facility] Comment on above: Performed By: #### Aruna Olivas, CH8 #### [facility] [address] [place] [address], MCV (RBC) [Entitic vol] 71 fL Low 80-100 [facility] Comment on above: Performed By: #### Aruna Olivas, CH8 #### [facility] [address] [place] [address], Monocytes (Bld) [#/Vol] 1.42 10*3/uL High 0.20-1.00 The [facility] Comment on above: Performed By: #### Aruna Olivas, CH8 #### S PATHOLOGY LABORATORY [address] [place], [place], Monocytes/100 WBC (Bld) 14.8 % High 2.0-11.0 [facility] Comment on above: Performed By: #### Aruna Olivas, CH8 #### S PATHOLOGY LABORATORY [address] [place], [place], Neutrophils (Bld) [#/Vol] 6.94 10*3/uL Normal 1.50-8.00 [facility] Comment on above: Performed By: #### Aruna Olivas, CH8 #### [facility] [address] [place], [place], Neutrophils/100 WBC (Bld) 72.6 % Normal 31.0-76.0 [facility] Comment on above: Performed By: #### Aruna Olivas, CH8 #### [facility] [address] [place], [place], Platelet mean volume (Bld) [Entitic vol] 8.5 fL Normal 7.5-11.2 [facility] Comment on above: Performed By: #### Aruna Olivas, CH8 #### [facility] [address] [place], [place], Platelets (Bld) [#/Vol] 206 10*3/uL Normal 150-400 [facility] Comment on above: Performed By: #### Aruna Olivas, CH8 #### [facility] [address] [place], [place], RBC (Bld) [#/Vol] 3.39 10*6/uL Low 4.00-5.20 [facility] Comment on above: Performed By: #### Aruna Olivas, CH8 #### [facility] [address] [place], [place], WBC (Bld) [#/Vol] 9.6 10*3/uL Normal 4.5-11.5 [facility] Comment on above: Performed By: #### Aruna Olivas, CH8 #### [facility] [address] [place] [address], MAGNESIUMon 01-30-2025 Interpretation and review of laboratory results Normal [facility] Magnesium [Mass/Vol] 1.9 mg/dL 1.9 - 2 .7 mg/dL [facility] Magnesium [Mass/Vol] 1.9 mg/dL Normal 1.9-2.7 The [facility] Comment on above: Performed By: #### Aruna Olivas, CH8 ####S PATHOLOGY [id number] [place], [place], MANUAL DIFF AND MORPHon 01-08 Carlos cells LM Ql (Bld) Few [facility] Cells Counted Total (Bld) [#] [facility] Microcytes Ql (Bld) Slight [facility] Ovalocytes LM Ql (Bld) Few [facility] RBC.hypochromic/100 RBC Auto (Bld) Moderate [facility] Schistocytes LM Ql (Bld) Few [facility] CARLOS CELLS Few Normal [facility] Comment on above: Performed By: #### Aruna Olivas, CH8 #### S PATHOLOGY LABORATORY [address] [place] [address], CELLS COUNTED TOTAL # IN BLOOD Normal [facility] Comment on above: Performed By: #### Aruna Olivas, CH8 #### S PATHOLOGY LABORATORY [address] [place] [address], FRAGMENTED RBC Few Normal [facility] Comment on above: Performed By: #### Aruna Olivas, CH8 #### S PATHOLOGY LABORATORY [address] [place] [address], HYPOCHROMASIA Moderate Normal [facility] Comment on above: Performed By: #### Aruna Olivas, CH8 #### S PATHOLOGY LABORATORY [address] [place] [address], MICROCYTOSIS Slight Normal [facility] Comment on above: Performed By: #### Aruna Olivas, CH8 #### S PATHOLOGY LABORATORY [address] [place] [address], OVALOCYTES Few Normal [facility] Comment on above: Performed By: #### Aruna Olivas, CH8 #### S PATHOLOGY LABORATORY [address] [place] [address], No Panel Informationon 01-30 [facility] Assessment AND Plan Noteon 0 8-23-2025 [employer] Authentication Interface Message Text --trend CBC daily, [...] will need to restart Eliquis Normal [facility] [employer] Authentication Interface Message Text --chronic. stable. 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 Whittaker or until Eliquis restarted. Normal [facility] BASIC METABOLIC PANELon 08-2 Anion gap [Moles/Vol] 9 mmol/L Low 10-20 [facility] Comment on above: Performed By: ###Roger Olivas CH8 #### S PATHOLOGY LABORATORY [address] [place] [address], Calcium [Mass/Vol] 7.9 mg/dL Low 8.6-10.3 [facility] Comment on above: Performed By: ###Roger Olivas CH8 #### S PATHOLOGY LABORATORY [address] [place] [address], Chloride [Moles/Vol] 112 mmol/L High 98-107 [facility] Comment on above: Performed By: #### Aruna Olivas CH8 #### [facility] [address] [place] [address], CO2 [Moles/Vol] 24 mmol/L Normal 21- [facility] Comment on above: Performed By: ###Roger Olivas CH8 #### S PATHOLOGY LABORATORY [address] [place] [address], Creatinine [Mass/Vol] 0.52 mg/dL Low 0.60-1.20 The [facility] Comment on above: Performed By: #### Aruna Olivas CH8 #### S PATHOLOGY LABORATORY [address] [place] [address], ESTIMATED GFR (CKD-EPI) 93 mL/min/1.73sqm Normal >=60 [...] Inclusion of Race in Diagnosing Kidney Disease. Swedish Journal of Kidney Diseases 2021;79(2):268-88.e1. 2. N Engl J Med 2020 Vol. 385 Issue 19 Pages 4773-6845 Performed By: ###Roger Olivas CH8 #### S PATHOLOGY LABORATORY [address] [place] [address], Glucose [Mass/Vol] 105 mg/dL Normal 74-109 [facility] Comment on above: Performed By: ###Roger Olivas CH8 #### S PATHOLOGY LABORATORY [address] [place] [address], Potassium [Moles/Vol] 3.4 mmol/L Low 3.5-5.0 [facility] Comment on above: Performed By: ###Roger Olivas CH8 #### S PATHOLOGY LABORATORY [address] [place] [address], Sodium [Moles/Vol] 142 mmol/L Normal 136-145 [facility] Comment on above: Performed By: #### Aruna Olivas CH8 #### S PATHOLOGY LABORATORY [address] [place] [address], Urea nitrogen [Mass/Vol] 5 mg/dL Low 7-25 [facility] Comment on above: Performed By: ###Roger Olivas CH8 #### S PATHOLOGY LABORATORY [address] [place] [address], Basic metabolic 2000 panelon 01-29-2025 Anion gap [...] Inclusion of Race in Diagnosing Kidney Disease. [place] Journal of Kidney Diseases 202;79(2):268-88.e1. 2. N Engl J Med 1 Vol. 385 Issue 19 Pages 8976-7217 Glucose [Mass/Vol] 105 mg/dL 74 - 109 [...] Performed By: #### M G, CH8 #### [facility] [address] [place], [place], Basophils/100 WBC (Bld) 0.7 % Normal <=1.9 [facility] Comment on above: Performed By: #### Aruna Olivas, CH8 #### [facility] [address] [place], Eosinophils (Bld) [#/Vol] 0.19 10*3/uL Normal 0.00-0.70 [facility] Comment on above: Performed By: #### Aruna Olivas, CH8 #### [facility] [address] [place], Eosinophils/100 WBC (Bld) 2.5 % Normal 0.1-4.0 [facility] Comment on above: Performed By: #### Aruna Olivas, CH8 #### [facility] [address] [place], [place], Erythrocyte distribution width (RBC) [Ratio] 20.9 % High 11.5-14.5 [facility] Comment on above: Performed By: #### Aruna Olivas, CH8 #### [facility] [address] [place], [place], Hematocrit (Bld) [Volume fraction] 24.9 % Low 36.0-46.0 [facility] Comment on above: Performed By: #### Aruna Olivas, CH8 #### [facility] [address] [place], Hemoglobin (Bld) [Mass/Vol] 7.8 g/dL Low 12.0-15.0 [facility] Comment on above: Performed By: #### Aruna Olivas, CH8 #### [facility] [address] [place], [place], Lymphocytes (Bld) [#/Vol] 1.00 10*3/uL Normal 1.00-4.80 [facility] Comment on above: Performed By: #### Aruna Olivas, CH8 #### [facility] [address] [place], [place], Lymphocytes/100 WBC (Bld) 12.8 % Low 24.0-44.0 [facility] Comment on above: Performed By: #### Aruna Olivas, CH8 #### [facility] [address] [place] [address], MCH (RBC) [Entitic mass] 23.2 pg Low 26.0-34.0 [facility] Comment on above: Performed By: #### Aruna Olivas, CH8 #### [facility] [address] [place], MCHC (RBC) [Mass/Vol] 31.4 g/dL Low 32.0-35.9 [facility] Comment on above: Performed By: #### Aruna Olivas, CH8 #### [facility] [address] [place], [place], MCV (RBC) [Entitic vol] 74 fL Low 80-100 [facility] Comment on above: Performed By: #### Aruna Olivas, CH8 #### [facility] [address] [place] [address], Monocytes (Bld) [#/Vol] 1.14 10*3/uL High 0.20-1.00 [facility] Comment on above: Performed By: #### Aruna Olivas, CH8 #### [facility] [address] [place] [address], Monocytes/100 WBC (Bld) 14.6 % High 2.0-11.0 [facility] Comment on above: Performed By: #### Aruna Olivas, CH8 #### [facility] [address] [place] [address], Neutrophils (Bld) [#/Vol] 5.44 10*3/uL Normal 1.50-8.00 [facility] Comment on above: Performed By: #### Aruna Olivas, CH8 #### [facility] [address] [place] [address], Neutrophils/100 WBC (Bld) 69.5 % Normal 31.0-76.0 [facility] Comment on above: Performed By: #### Aruna Olivas, CH8 #### [facility] [address] [place] [address], Platelet mean volume (Bld) [Entitic vol] 8.2 fL Normal 7.5-11.2 [facility] Comment on above: Performed By: #### Aruna Olivas, [id number] #### [facility] [address] [place] [address], Platelets (Bld) [#/Vol] 174 10*3/uL Normal 150-400 [facility] Comment on above: Performed By: #### Aruna Olivas, RODRIGUEZ8 #### [facility] [address] [place] [address], RBC (Bld) [#/Vol] 3.36 10*6/uL Low 4.00-5.20 [facility] Comment on above: Performed By: #### Aruna Olivas, RODRIGUEZ8 #### [facility] [address] [place] [address], WBC (Bld) [#/Vol] 7.8 10*3/uL Normal 4.5-11.5 [facility] Comment on above: Performed By: #### Aruna Olivas, RODRIGUEZ8 #### [facility] [address] [place] [address], MAGNESIUMon 01-29-2025 Interpretation and review of laboratory results Normal [facility] Magnesium [Mass/Vol] 1.9 mg/dL 1.9 - 2 .7 mg/dL [facility] Magnesium [Mass/Vol] 1.9 mg/dL Normal 1.9-2.7 [facility] Comment on above: Performed By: #### Aruna Olivas, RODRIGUEZ8 #### [facility] [address] [place] [address], MANUAL DIFF AND MORPHon 01-08 Acanthocytes LM Ql (Bld) Moderate [facility] Cells Counted Total (Bld) [#] [facility] Microcytes Ql (Bld) Slight [facility] Ovalocytes LM Ql (Bld) Few [facility] RBC.hypochromic/100 RBC Auto (Bld) Moderate [facility] Schistocytes LM Ql (Bld) Few [facility] ACANTHOCYTES Moderate Normal [facility] Comment on above: Performed By: #### Aruna Olivas, CH8 #### [facility] [address] [place] [address], CELLS COUNTED TOTAL # IN BLOOD Normal [facility] Comment on above: Performed By: #### M G, CH8 #### S PATHOLOGY LABORATORY [address] [place] [address], FRAGMENTED RBC Few Normal [facility] Comment on above: Performed By: #### M G, CH8 #### S PATHOLOGY LABORATORY [address] [place], [place], HYPOCHROMASIA Moderate Normal [facility] Comment on above: Performed By: #### M G, CH8 #### S PATHOLOGY LABORATORY [address] [place], MICROCYTOSIS Slight Normal [facility] Comment on above: Performed By: #### M G, CH8 #### S PATHOLOGY LABORATORY [address] [place] [address], OVALOCYTES Few Normal [facility] Comment on above: Performed By: #### M G, CH8 #### [facility] [address] [place] [address], No Panel InformationOrdered By: Sayra Dudley on 01-29-2025 [facility] No Panel Informationon 01-29 [facility] Transfer Noteon 01-29-2025 [employer]per Authentication Interface Message Text . TRANSFER NOTE Patient: Ms. Ely Hurtado, an 84 year old (Full Code) Room: [address] [id number] FROM Step down unit TO Medicine [...] currently resides at [facility] ([facility] where she was found to have significant bright red blood in her stool following multiple episodes of diarrhea on the morning of 01/24. They were transferred to the 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 Nelda James DO Family Medicine, PGY2 FM Pager: [phone] Normal [facility] BASIC METABOLIC PANELon 08 Anion gap [Moles/Vol] 11 mmol/L Normal 10-20 [facility] Comment on above: Performed By: #### DAMON Hamilton ####[facility] [id number] [place], [id number] Calcium [Mass/Vol] 7.8 mg/dL Low 8.6-10.3 [facility] Comment on above: Performed By: #### DAMON Hamilton ####[facility] [id number] [place], [place], Chloride [Moles/Vol] 113 mmol/L High 98-107 [facility] Comment on above: Performed By: #### Aruna Olivas CH8 ####S PATHOLOGY [id number] [place], CO2 [Moles/Vol] 21 mmol/L Normal 21-31 [facility] Comment on above: Performed By: #### Aruna Olivas CH8 ####S PATHOLOGY [id number] [place], Creatinine [Mass/Vol] 0.56 mg/dL Low 0.60-1.20 [facility] Comment on above: Performed By: #### Aruna Olivas CH8 ####[facility] PATHOLOGY [id number] [place], ESTIMATED GFR (CKD-EPI) 91 mL/min/1.73sqm Normal [...] Inclusion of Race in Diagnosing Kidney Disease. Swedish Journal of Kidney Diseases 2021;79(2):268-88.e1. 2. N Engl J Med 2020 Vol. 385 Issue 19 Pages [phone] Performed By: #### Aruna Olivas CH8 ####S PATHOLOGY [id number] [place], Glucose [Mass/Vol] 135 mg/dL High 74-109 [facility] Comment on above: Performed By: #### Aruna Olivas CH8 ####S PATHOLOGY [id number] [place], Potassium [Moles/Vol] 3.2 mmol/L Low 3.5-5.0 [facility] Comment on above: Performed By: #### M G, CH8 ####S PATHOLOGY [id number] [place], Sodium [Moles/Vol] 142 mmol/L Normal 136-145 [facility] Comment on above: Performed By: #### Aruna Olivas, CH8 ####S PATHOLOGY [id number] [place], Urea nitrogen [Mass/Vol] 7 mg/dL Normal 7-25 [facility] Comment on above: Performed By: #### Aruna Olivas, CH8 ####[facility] PATHOLOGY [id number] [place], Basic metabolic 2000 panelon 01-28-2025 Anion [...] Inclusion of Race in Diagnosing Kidney Disease. [place] Journal of Kidney Diseases 202;79(2):268-88.e1. 2. N Engl J Med 1 Vol. 385 Issue 19 Pages 6728-2069 Glucose [Mass/Vol] 135 mg/dL High 74 - [...] (Bld) [#/Vol] 0.10 10*3/uL Normal 0.00-0.20 [facility] Comment on above: Performed By: #### FREDERICK YOUNG ####[facility] PATHOLOGY [id number] [place], Basophils/100 WBC (Bld) 1.3 % Normal <=1.9 [facility] Comment on above: Performed By: ###FREDERICK BRUSNON ####[facility] PATHOLOGY [id number] [place] [address], Eosinophils (Bld) [#/Vol] 0.22 10*3/uL Normal 0.00-0.70 [facility] Comment on above: Performed By: ###FREDERICK BRUNSON ####[facility] PATHOLOGY [id number] [place], Eosinophils/100 WBC (Bld) 2.8 % Normal 0.1-4.0 [facility] Comment on above: Performed By: ###FREDERICK BRUNSON ####[facility] PATHOLOGY [id number] [place], Erythrocyte distribution width (RBC) [Ratio] 20.5 % High 11.5-14.5 [facility] Comment on above: Performed By: #### FREDERICK YOUNG ####[facility] PATHOLOGY [id number] [place], Hematocrit (Bld) [Volume fraction] 23.7 % Low 36.0-46.0 [facility] Comment on above: Performed By: #### FREDERICK YOUNG ####[facility] PATHOLOGY [id number] [place], Hemoglobin (Bld) [Mass/Vol] 7.4 g/dL Low 12.0-15.0 [facility] Comment on above: Performed By: ###FREDERICK BRUNSON ####[facility] PATHOLOGY [id number] [place], Lymphocytes (Bld) [#/Vol] 0.92 10*3/uL Low 1.00-4.80 [facility] Comment on above: Performed By: ###FREDERICK BRUNSON ####[facility] PATHOLOGY [id number] [place] [address], Lymphocytes/100 WBC (Bld) 11.5 % Low 24.0-44.0 [facility] Comment on above: Performed By: ###FREDERICK BRUNSON ####[facility] PATHOLOGY [id number] [place] [address], MCH (RBC) [Entitic mass] 23.2 pg Low 26.0-34.0 [facility] Comment on above: Performed By: ###FREDERICK BRUNSON ####[facility] PATHOLOGY [id number] [place] [address], MCHC (RBC) [Mass/Vol] 31.3 g/dL Low 32.0-35.9 [facility] Comment on above: Performed By: ###FREDERICK BRUNSON ####[facility] PATHOLOGY [id number] [place], MCV (RBC) [Entitic vol] 74 fL Low 80-100 [facility] Comment on above: Performed By: ###FREDERICK BRUNSON ####[facility] PATHOLOGY [id number] [place], Monocytes (Bld) [#/Vol] 1.05 10*3/uL High 0.20-1.00 [facility] Comment on above: Performed By: ###FREDERICK BRUNSON ####[facility] PATHOLOGY [id number] [place], Monocytes/100 WBC (Bld) 13.1 % High 2.0-11.0 [facility] Comment on above: Performed By: ###FREDERICK BRUNSON ####[facility] PATHOLOGY [id number] [place], Neutrophils (Bld) [#/Vol] 5.71 10*3/uL Normal 1.50-8.00 [facility] Comment on above: Performed By: ###FREDERICK BRUNSON ####[facility] PATHOLOGY [id number] [place], Neutrophils/100 WBC (Bld) 71.3 % Normal 31.0-76.0 [facility] Comment on above: Performed By: ###FREDERICK BRUNSON ####[facility] PATHOLOGY [id number] [place], Platelet mean volume (Bld) [Entitic vol] 8.2 fL Normal 7.5-11.2 [facility] Comment on above: Performed By: ###FREDERICK BRUNSON ####[facility] PATHOLOGY [id number] [place], Platelets (Bld) [#/Vol] 177 10*3/uL Normal 150-400 [facility] [facility] Comment on above: Performed By: ###FREDERICK BRUNSON ####[facility] PATHOLOGY [id number] [place], [place], RBC (Bld) [#/Vol] 3.21 10*6/uL Low 4.00-5.20 The [facility] Comment on above: Performed By: ###FREDERICK BRUNSON ####[facility] PATHOLOGY [id number] [place], WBC (Bld) [#/Vol] 8.0 10*3/uL Normal 4.5-11.5 [facility] Comment on above: Performed By: ###FREDERICK BRUNSON ####S PATHOLOGY [id number] [place], [place], Care Plan Noteon 01-28-2025 Cupola Patcher Helper Authentication Interface Message Text Spoke with Pt's [...] Family verbalized understanding. DO Celine Whitehead [facility] Consultson 01-28-2025 Cupola Patcher Helper Authentication Interface Message Text Dietitian vs DietaryTech: Dietary TechDiet Object Oriented Programmer Nutrition Screening Reason for visit: LOS 5 [...] up. Will continue to follow, Ava Hays Seasonal Customer Service Associate Pager#[phone] Time spent on patient care: 15 minutes [1] No past medical history on file. Normal [facility] Discharge Planning Noteon Cupola Patcher Helper Authentication Interface Message Text SW/CM aware that patient meets criteria for SNF. Met with pt son via phone call discuss dispo. Patient open and agreeable to SNF placement. CM/SW provided pt son the quality and resource use measure data from available post-acute (PAC) providers, that best align with the patient's treatment goals and preferences from the medicare.gov compare site for SNF. [place] of Choice was provided to the patient/patient guest relations representative. For SNF: RN/MD to complete [employer]. Signature page placed on patient's chart for MD signature. [id number] initiated in [facility] Pt will require a pre-cert/LOC. SW/CM will follow up for choices. Referral sent to [facility] which is the sister SNF for Bud[facility] KAREN. CM will continue to follow Breanna VALLEJO, RN Inpatient Rn Surgical 0Q/7W Cell [phone] Desk [phone] Normal [facility] MAGNESIUMon 01-28-2025 Interpretation and review of laboratory results Normal [facility] Magnesium [Mass/Vol] 1.9 mg/dL 1.9 - 2 .7 mg/dL [facility] Magnesium [Mass/Vol] 1.9 mg/dL Normal 1.9-2.7 [facility] Comment on above: Performed By: #### M RODRIGUEZ Olivas8 ####[facility] PATH[facility]Y [id number] [place], MANUAL DIFF AND MORPHon 01-08 Acanthocytes LM Ql (Bld) Few [facility] [place] cells LM Ql (Bld) Few [facility] Cells Counted Total (Bld) [#] [facility] Microcytes Ql (Bld) Slight [facility] Ovalocytes LM Ql (Bld) Few [facility] RBC.hypochromic/100 RBC Auto (Bld) Moderate [facility] Schistocytes LM Ql (Bld) Few [facility] ACANTHOCYTES Few Normal The [facility] Comment on above: Performed By: #### C MD ELLEIFF ####[facility] PATHOLOGY [id number] [place], [place], CARLOS CELLS Few Normal The [facility] Comment on above: Performed By: ###FREDERICK BRUNSON ####[facility] PATH[facility]Y [id number] [place], CELLS COUNTED TOTAL # IN BLOOD Normal The [facility] Comment on above: Performed By: #### FREDERICK YOUNG ####[facility] PATHOLOGY [id number] [place], FRAGMENTED RBC Few Normal [facility] Comment on above: Performed By: #### FREDERICK YOUNG ####[facility] PATHOLOGY [id number] [place], HYPOCHROMASIA Moderate Normal [facility] Comment on above: Performed By: ###FREDERICK BRUNSON ####[facility] PATHOLOGY [id number] [place], MICROCYTOSIS Slight Normal The [facility] Comment on above: Performed By: #### FREDERICK YOUNG ####S PATHOLOGY [id number] [place], OVALOCYTES Few Normal The [facility] Comment on above: Performed By: #### FREDERICK YOUNG ####S PATHOLOGY [id number] [place], [place], No Panel Informationon 01-28 [facility] PROTHROMBIN TIME AND INRon 0 01-28-2025 INR Coag (PPP) [Relative time] 1.05 {INR} 0.90 - 1.10 [facility] Interpretation and review of laboratory results Normal [facility] PT Coag (PPP) [Time] 11.8 s [facility] INR Coag (PPP) [Relative time] 1.05 {INR} Normal 0.90-1.10 [facility] Comment on above: Performed By: ###DAMON Glover #### S PATHOLOGY LABORATORY [address] [place], [place], PT Coag (PPP) [Time] 11.8 s Normal 9.7-12.9 [facility] Comment on above: Performed By: ###DAMON Glover #### S PATHOLOGY LABORATORY [address] [place], [id number] Progress Noteson 01-28-2025 Cupola Patcher Helper Authentication Interface Message Text 1200- offered patient to get up and walk and to get into chair. Patient refused. Patient family insisting patient get up and move and walk. Attempted this with patient, patient refused at this time. Patient educated importance of movement and getting up, patient also educated on NPO status. Patient aware and agreeable to NPO. Normal [facility] Cupola Patcher Helper Authentication Interface Message Text Division of Pulmonary, [...] Pulmonary, Critical Care, AND Sleep Medicine [facility] PIN [id number] [1] Social History Tobacco Use Smoking Status Not on file Smokeless Tobacco Not on file Normal [facility] BASIC METABOLIC PANELon 08-2 Anion gap [Moles/Vol] 13 mmol/L Normal 10-20 [facility] Comment on above: Performed By: #### Aruna Olivas CH8 #### S PATHOLOGY LABORATORY [address] [place] [address], Calcium [Mass/Vol] 7.8 mg/dL Low 8.6-10.3 [facility] Comment on above: Performed By: #### DAMON Hamilton #### [facility] [address] [place] [address], Chloride [Moles/Vol] 112 mmol/L High 98-107 [facility] Comment on above: Performed By: #### Aruna Olivas CH8 #### S PATHOLOGY LABORATORY [address] [place] [address], CO2 [Moles/Vol] 23 mmol/L Normal 21-31 [facility] Comment on above: Performed By: #### Aruna Olivas, CH8 #### S PATHOLOGY LABORATORY [address] [place] [address], Creatinine [Mass/Vol] 0.54 mg/dL Low 0.60-1.20 [facility] Comment on above: Performed By: #### Aruna Olivas, RODRIGUEZ8 #### [facility] PATHOLOGY LABORATORY [address] [place], [place], ESTIMATED GFR (CKD-EPI) 92 mL/min/1.73sqm Normal >=60 [facility] Comment on above: Result Comment: 2020 [...] Inclusion of Race in Diagnosing Kidney Disease. Swedish Journal of Kidney Diseases 202;79(2):268-88.e1. 2. N Engl J Med 2020 Vol. 385 Issue 19 Pages 6745-5869 Performed By: #### Aruna Olivas CH8 #### S PATHOLOGY LABORATORY [address] [place], [place], Glucose [Mass/Vol] 68 mg/dL Low 74-109 [facility] Comment on above: Performed By: #### Aruna Olivas CH8 #### S PATHOLOGY LABORATORY [address] [place] [address], Potassium [Moles/Vol] 3.2 mmol/L Low 3.5-5.0 [facility] Comment on above: Performed By: #### Aruna Olivas CH8 #### S PATHOLOGY LABORATORY [address] [place], [place], Sodium [Moles/Vol] 145 mmol/L Normal 136-145 [facility] Comment on above: Performed By: #### Aruna Olivas CH8 #### S PATHOLOGY LABORATORY [address] [place], [place], Urea nitrogen [Mass/Vol] 5 mg/dL Low 7-25 The [facility] Comment on above: Performed By: #### M G, CH8 #### [facility] [address] [place] [address], [id number] Basic metabolic 2000 panelon 01-27-2025 Anion gap [...] Inclusion of Race in Diagnosing Kidney Disease. [place] Journal of Kidney Diseases 202;79(2):268-88.e1. 2. N Engl J Med 1 Vol. 385 Issue 19 Pages 7015-2154 Glucose [Mass/Vol] 68 mg/dL Low 74 - [...] (Bld) [#/Vol] 0.04 10*3/uL Normal 0.00-0.20 [facility] Comment on above: Performed By: #### Aruna Olivas, CH8 #### [facility] PATHOLOGY LABORATORY [address] [place] [address], Basophils/100 WBC (Bld) 0.5 % Normal <=1.9 [facility] Comment on above: Performed By: #### Aruna Olivas, CH8 #### [facility] PATHOLOGY LABORATORY [address] [place] [address], Eosinophils (Bld) [#/Vol] 0.10 10*3/uL Normal 0.00-0.70 [facility] Comment on above: Performed By: #### Aruna Olivas, CH8 #### [facility] PATHOLOGY LABORATORY [address] [place] [address], Eosinophils/100 WBC (Bld) 1.3 % Normal 0.1-4.0 [facility] Comment on above: Performed By: #### Aruna Olivas, CH8 #### [facility] PATHOLOGY LABORATORY [address] [place] [address], Erythrocyte distribution width (RBC) [Ratio] 20.0 % High 11.5-14.5 [facility] Comment on above: Performed By: #### Aruna Olivas, CH8 #### [facility] PATHOLOGY LABORATORY [address] [place] [address], Hematocrit (Bld) [Volume fraction] 24.6 % Low 36.0-46.0 [facility] Comment on above: Performed By: #### Aruna Olivas, CH8 #### [facility] PATHOLOGY LABORATORY [address] [place], [place], Hemoglobin (Bld) [Mass/Vol] 7.9 g/dL Low 12.0-15.0 [facility] Comment on above: Performed By: #### Aruna Olivas, CH8 #### [facility] PATHOLOGY LABORATORY [address] [place] [address], Lymphocytes (Bld) [#/Vol] 0.83 10*3/uL Low 1.00-4.80 [facility] Comment on above: Performed By: #### Aruna Olivas, CH8 #### [facility] PATHOLOGY LABORATORY [address] [place], [place], Lymphocytes/100 WBC (Bld) 10.8 % Low 24.0-44.0 [facility] Comment on above: Performed By: #### Aruna Olivas, CH8 #### [facility] PATHOLOGY LABORATORY [address] [place], [place], MCH (RBC) [Entitic mass] 23.2 pg Low 26.0-34.0 [facility] Comment on above: Performed By: #### Aruna Olivas, CH8 #### [facility] PATHOLOGY LABORATORY [address] [place], [place], MCHC (RBC) [Mass/Vol] 32.1 g/dL Normal 32.0-35.9 [facility] Comment on above: Performed By: #### Aruna Olivas, CH8 #### [facility] PATHOLOGY LABORATORY [address] [place], [place], MCV (RBC) [Entitic vol] 72 fL Low 80-100 [facility] Comment on above: Performed By: #### Aruna Olivas, CH8 #### [facility] PATHOLOGY LABORATORY [address] [place], [place], Monocytes (Bld) [#/Vol] 0.92 10*3/uL Normal 0.20-1.00 [facility] Comment on above: Performed By: #### Aruna Olivas, CH8 #### [facility] PATHOLOGY LABORATORY [address] [place], [place], Monocytes/100 WBC (Bld) 11.9 % High 2.0-11.0 [facility] Comment on above: Performed By: #### Aruna Olivas, CH8 #### [facility] PATHOLOGY LABORATORY [address] [place], [place], Neutrophils (Bld) [#/Vol] 5.82 10*3/uL Normal 1.50-8.00 [facility] Comment on above: Performed By: #### Aruna Olivas, CH8 #### [facility] PATHOLOGY LABORATORY [address] [place], [place], Neutrophils/100 WBC (Bld) 75.5 % Normal 31.0-76.0 [facility] Comment on above: Performed By: #### Aruna Deisy, CH8 #### [facility] PATHOLOGY LABORATORY [address] [place] [address], Platelet mean volume (Bld) [Entitic vol] 8.6 fL Normal 7.5-11.2 [facility] Comment on above: Performed By: #### Aruna Olivas, CH8 #### [facility] PATHOLOGY LABORATORY [address] [place] [address], Platelets (Bld) [#/Vol] 189 10*3/uL Normal 150-400 [facility] Comment on above: Performed By: #### Aruna Olivas, CH8 #### [facility] PATHOLOGY LABORATORY [address] [place] [address], RBC (Bld) [#/Vol] 3.40 10*6/uL Low 4.00-5.20 [facility] Comment on above: Performed By: #### Aruna Olivas, 8 #### [facility] PATHOLOGY LABORATORY [address] [place] [address], WBC (Bld) [#/Vol] 7.7 10*3/uL Normal 4.5-11.5 [facility] Comment on above: Performed By: #### Aruna Olivas, 8 #### [facility] PATHOLOGY LABORATORY [address] [place] [address], Care Plan Noteon 01-27-2025 Cupola Patcher Helper Authentication Interface Message Text I tried at least thrice to reach her son to update on her colonoscopy but with no avail. Normal [facility] H AND Luis Felipe 01-27-2025 Cupola Patcher Helper Authentication Interface Message Text Ely Hurtado [id number] 01/27/2025 HISTORY AND PHYSICAL: Patient's history with [...] Aruna Olivas CH8 #### S PATHOLOGY LABORATORY [address] [place] [address], MANUAL DIFF AND MORPHon 01-08 Cells Counted Total (Bld) [#] [facility] Microcytes Ql (Bld) Slight [facility] Ovalocytes LM Ql (Bld) Few [facility] RBC.hypochromic/100 RBC Auto (Bld) Moderate [facility] Schistocytes LM Ql (Bld) Few [facility] CELLS COUNTED TOTAL # IN BLOOD Normal The [facility] Comment on above: Performed By: #### Aruna Olivas CH8 #### S PATHOLOGY LABORATORY [address] [place] [address], FRAGMENTED RBC Few Normal [facility] Comment on above: Performed By: #### Aruna Olivas CH8 #### S PATHOLOGY LABORATORY [address] [place], [place], HYPOCHROMASIA Moderate Normal [facility] Comment on above: Performed By: #### M G, CH8 #### S PATHOLOGY LABORATORY [address] [place], [place], MICROCYTOSIS Slight Normal [facility] Comment on above: Performed By: #### M G, CH8 #### S PATHOLOGY LABORATORY [address] [place], [place], OVALOCYTES Few Normal [facility] Comment on above: Performed By: #### M G, CH8 #### [facility] PATHOLOGY LABORATORY [address] [place], [place], No Panel InformationOrdered By: Letty Arevalo on 01-27-2025 [facility] No Panel Informationon 01-27 [facility] OP Noteon 01-27-2025 Cupola Patcher Helper Authentication Interface Message Text Ely Hurtado 84 year old Surgical Contact Serial Number: [id number] Location: ENDO ADD ON PROCEDURE Date: 01/27/2025 Small Business Director: Juan Parikh MD Attending:Adrien Caraballo MD [...] transillumination of right lower quadrant. Prep was Hawley Bowel Prep Right Colon: Entire colon seen well, [facility] Bowel Prep Transverse Colon: Entire colon seen well, [facility] Bowel Prep Left Colon:Entire colon seen well [...] + internal hemorrhoids Rectal bleeding (Primary Diagnosis) [690437] Unspecified right bundle-branch block [1534970] Abnormal electrocardiogram (ECG) (EKG) [5704702] Abnormal electrocardiogram (ECG) (EKG) [7911940] ANATOMIC SPECIMEN: Yes SPECIMEN: ID Type Source [...] Caraballo MD Division of Gastroenterology AND Hepatology [facility] Normal [facility] Patient Instructionson 01-27 Cupola Patcher Helper Authentication Interface Message Text COLONOSCOPY COLYTE SPLIT PREP DO NOT FOLLOW INSTRUCTIONS ON THE COLYTE BOTTLE Please call [phone] to schedule your procedure WHAT IS A [...] medicati (more content not included)... Normal [facility] Progress Noteson 01-27-2025 Cupola Patcher Helper Authentication Interface Message Text Division of Pulmonary, [...] Pulmonary, Critical Care, AND Sleep Medicine [facility] PIN [id number] [1] Social History Tobacco Use Smoking Status Not on file Smokeless Tobacco Not on file Normal [facility] BASIC METABOLIC PANELon 08-2 -2024 Anion gap [Moles/Vol] 12 mmol/L Normal 10-20 [facility] Comment on above: Performed By: #### Aruna Olivas, CH8 #### S PATHOLOGY LABORATORY [address] [place] [address], Calcium [Mass/Vol] 7.9 mg/dL Low 8.6-10.3 [facility] Comment on above: Performed By: #### Aruna Olivas, CH8 #### S PATHOLOGY LABORATORY [address] [place] [address], Chloride [Moles/Vol] 110 mmol/L High 98-107 [facility] Comment on above: Performed By: #### Aruna Olivas, CH8 #### S PATHOLOGY LABORATORY [address] [place] [address], CO2 [Moles/Vol] 23 mmol/L Normal 21-31 [facility] Comment on above: Performed By: #### Aruna Olivas, CH8 #### S PATHOLOGY LABORATORY [address] [place] [address], Creatinine [Mass/Vol] 0.58 mg/dL Low 0.60-1.20 [facility] Comment on above: Performed By: #### Aruna Olivas, CH8 #### S PATHOLOGY LABORATORY [address] [place] [address], ESTIMATED GFR (CKD-EPI) 90 mL/min/1.73sqm Normal >=60 [facility] Comment on above: Result Comment: 2020 [...] Inclusion of Race in Diagnosing Kidney Disease. Swedish Journal of Kidney Diseases 2021;79(2):268-88.e1. 2. N Engl J Med 1 Vol. 385 Issue 19 Pages [phone] Performed By: #### Aruna Olivas, CH8 #### S PATHOLOGY LABORATORY [address] [place] [address], Glucose [Mass/Vol] 85 mg/dL Normal 74-109 [facility] Comment on above: Performed By: #### Aruna Olivas, CH8 #### S PATHOLOGY LABORATORY [address] [place] [address], Potassium [Moles/Vol] 3.7 mmol/L Normal 3.5-5.0 [facility] Comment on above: Performed By: #### Aruna Olivas, CH8 #### S PATHOLOGY LABORATORY [address] [place] [address], Sodium [Moles/Vol] 141 mmol/L Normal 136-145 [facility] Comment on above: Performed By: #### Aruna Olivas, CH8 #### S PATHOLOGY LABORATORY [address] [place] [address], Urea nitrogen [Mass/Vol] 9 mg/dL Normal 7-25 [facility] Comment on above: Performed By: #### Aruna Olivas, CH8 #### S PATHOLOGY LABORATORY [address] [place] [address], Basic metabolic 2000 panelon 01-26-2025 Anion gap [...] Inclusion of Race in Diagnosing Kidney Disease. [place] Journal of Kidney Diseases 2021;79(2):268-88.e1. 2. N Engl J Med 2020 Vol. 385 Issue 19 Pages 8685-7006 Glucose [Mass/Vol] 85 mg/dL 74 - 109 [...] (Bld) [#/Vol] 0.07 10*3/uL Normal 0.00-0.20 The [facility] Comment on above: Performed By: #### Aruna Olivas CH8 #### S PATHOLOGY LABORATORY [address] [place], [place], Basophils/100 WBC (Bld) 0.9 % Normal <=1.9 [facility] Comment on above: Performed By: #### Aruna Olivas CH8 #### S PATHOLOGY LABORATORY [address] [place], [place], Eosinophils (Bld) [#/Vol] 0.05 10*3/uL Normal 0.00-0.70 [facility] Comment on above: Performed By: #### Aruna Olivas, CH8 #### [facility] PATHOLOGY LABORATORY [address] [place] [address], Eosinophils/100 WBC (Bld) 0.7 % Normal 0.1-4.0 [facility] Comment on above: Performed By: #### Aruna Olivas, CH8 #### [facility] PATHOLOGY LABORATORY [address] [place] [address], Erythrocyte distribution width (RBC) [Ratio] 19.8 % High 11.5-14.5 [facility] Comment on above: Performed By: #### Aruna Olivas, CH8 #### [facility] PATHOLOGY LABORATORY [address] [place] [address], Hematocrit (Bld) [Volume fraction] 26.2 % Low 36.0-46.0 [facility] Comment on above: Performed By: #### Aruna Olivas, CH8 #### [facility] PATHOLOGY LABORATORY [address] [place] [address], Hemoglobin (Bld) [Mass/Vol] 8.4 g/dL Low 12.0-15.0 [facility] Comment on above: Performed By: #### Aruna Olivas, CH8 #### [facility] PATHOLOGY LABORATORY [address] [place] [address], Lymphocytes (Bld) [#/Vol] 0.78 10*3/uL Low 1.00-4.80 The [facility] Comment on above: Performed By: #### Aruna Olivas, CH8 #### [facility] PATHOLOGY LABORATORY [address] [place] [address], Lymphocytes/100 WBC (Bld) 9.9 % Low 24.0-44.0 The [facility] Comment on above: Performed By: #### Aruna Olivas, CH8 #### [facility] PATHOLOGY LABORATORY [address] [place] [address], MCH (RBC) [Entitic mass] 23.0 pg Low 26.0-34.0 The [facility] Comment on above: Performed By: #### Aruna Olivas, CH8 #### [facility] PATHOLOGY LABORATORY [address] [place] [address], MCHC (RBC) [Mass/Vol] 32.1 g/dL Normal 32.0-35.9 [facility] Comment on above: Performed By: #### Aruna Olivas, CH8 #### [facility] PATHOLOGY LABORATORY [address] [place] [address], MCV (RBC) [Entitic vol] 72 fL Low 80-100 [facility] Comment on above: Performed By: #### Aruna Olivas, CH8 #### [facility] PATHOLOGY LABORATORY [address] [place] [address], Monocytes (Bld) [#/Vol] 0.79 10*3/uL Normal 0.20-1.00 [facility] Comment on above: Performed By: #### Aruna Olivas, CH8 #### [facility] PATHOLOGY LABORATORY [address] [place] [address], Monocytes/100 WBC (Bld) 10.0 % Normal 2.0-11.0 [facility] Comment on above: Performed By: #### Aruna Olivas, CH8 #### [facility] PATHOLOGY LABORATORY [address] [place] [address], Neutrophils (Bld) [#/Vol] 6.22 10*3/uL Normal 1.50-8.00 [facility] Comment on above: Performed By: #### Aruna Olivas, CH8 #### [facility] PATHOLOGY LABORATORY [address] [place] [address], Neutrophils/100 WBC (Bld) 78.6 % High 31.0-76.0 [facility] Comment on above: Performed By: #### Aruna Olivas, CH8 #### [facility] PATHOLOGY LABORATORY [address] [place] [address], Platelet mean volume (Bld) [Entitic vol] 8.3 fL Normal 7.5-11.2 [facility] Comment on above: Performed By: #### Aruna Olivas, CH8 #### [facility] PATHOLOGY LABORATORY [address] [place] [address], Platelets (Bld) [#/Vol] 197 10*3/uL Normal 150-400 [facility] Comment on above: Performed By: #### Aruna Olivas, CH8 #### [facility] PATHOLOGY LABORATORY [address] [place], [place], RBC (Bld) [#/Vol] 3.65 10*6/uL Low 4.00-5.20 [facility] Comment on above: Performed By: #### Aruna Olivas, CH8 #### [facility] PATHOLOGY LABORATORY [address] [place], WBC (Bld) [#/Vol] 7.9 10*3/uL Normal 4.5-11.5 [facility] Comment on above: Performed By: #### Aruna Olivas, CH8 #### [facility] PATHOLOGY LABORATORY [address] [place], Basophils (Bld) [#/Vol] 0.07 10*3/uL Normal 0.00-0.20 [facility] Comment on above: Performed By: #### Aruna Olivas, CH8 #### [facility] PATHOLOGY LABORATORY [address] [place], Basophils/100 WBC (Bld) 0.8 % Normal <=1.9 [facility] Comment on above: Performed By: #### Aruna Olivas, CH8 #### [facility] PATHOLOGY LABORATORY [address] [place], Eosinophils (Bld) [#/Vol] 0.13 10*3/uL Normal 0.00-0.70 [facility] Comment on above: Performed By: #### Aruna Olivas, CH8 #### [facility] PATHOLOGY LABORATORY [address] [place], Eosinophils/100 WBC (Bld) 1.4 % Normal 0.1-4.0 [facility] Comment on above: Performed By: #### Aruna Olivas, CH8 #### [facility] [address], [place], Erythrocyte distribution width (RBC) [Ratio] 20.0 % High 11.5-14.5 The [facility] Comment on above: Performed By: #### Aruna Olivas, CH8 #### [facility] [address], [place], Hematocrit (Bld) [Volume fraction] 26.8 % Low 36.0-46.0 [facility] Comment on above: Performed By: #### Aruna Olivas, CH8 #### [facility] [address] [place] [address], Hemoglobin (Bld) [Mass/Vol] 8.7 g/dL Low 12.0-15.0 [facility] Comment on above: Performed By: #### Aruna Olivas, CH8 #### [facility] [address] [place] [address], Lymphocytes (Bld) [#/Vol] 1.32 10*3/uL Normal 1.00-4.80 [facility] Comment on above: Performed By: #### Aruna Olivas, CH8 #### [facility] [address] [place] [address], Lymphocytes/100 WBC (Bld) 14.8 % Low 24.0-44.0 [facility] Comment on above: Performed By: #### Aruna Olivas, CH8 #### [facility] [address] [place] [address], MCH (RBC) [Entitic mass] 23.7 pg Low 26.0-34.0 [facility] Comment on above: Performed By: #### Aruna Olivas, CH8 #### [facility] [address] [place] [address], MCHC (RBC) [Mass/Vol] 32.5 g/dL Normal 32.0-35.9 [facility] Comment on above: Performed By: #### Aruna Olivas, CH8 #### [facility] [address] [place] [address], MCV (RBC) [Entitic vol] 73 fL Low 80-100 [facility] Comment on above: Performed By: #### Aruna Olivas, CH8 #### [facility] [address] [place] [address], Monocytes (Bld) [#/Vol] 1.10 10*3/uL High 0.20-1.00 [facility] Comment on above: Performed By: #### Aruna Olivas, CH8 #### [facility] [address] [place] [address], Monocytes/100 WBC (Bld) 12.3 % High 2.0-11.0 [facility] Comment on above: Performed By: #### Aruna Olivas, CH8 #### [facility] [address] [place] [address], Neutrophils (Bld) [#/Vol] 6.28 10*3/uL Normal 1.50-8.00 [facility] Comment on above: Performed By: #### Aruna Olivas, CH8 #### [facility] [address] [place] [address], Neutrophils/100 WBC (Bld) 70.7 % Normal 31.0-76.0 The [facility] Comment on above: Performed By: #### Aruna Olivas, CH8 #### [facility] [address] [place] [address], Platelet mean volume (Bld) [Entitic vol] 8.1 fL Normal 7.5-11.2 [facility] Comment on above: Performed By: #### Aruna Olivas, CH8 #### [facility] [address] [place] [address], Platelets (Bld) [#/Vol] 189 10*3/uL Normal 150-400 The [facility] Comment on above: Performed By: #### Aruna Olivas, CH8 #### [facility] [address] [place] [address], RBC (Bld) [#/Vol] 3.67 10*6/uL Low 4.00-5.20 [facility] Comment on above: Performed By: #### Aruna Olivas, CH8 #### [facility] [address], [place], WBC (Bld) [#/Vol] 8.9 10*3/uL Normal 4.5-11.5 [facility] Comment on above: Performed By: #### Aruna Olivas, CH8 #### [facility] [address] [place] [address], CBC WITH DIFFERENTIALOrdered By: Linda Kang on [...] [#/Vol] 8.9 10*3/uL 4.5 - 11.5 K/uL [facility] Consultson 01-26-2025 Cupola Patcher Helper Authentication Interface Message Text Department of Gastroenterology and Hepatology Consult H AND P Note GI Attending Physician: Dr. Isauro Page MD Patient: Ely Hurtado Location: [place] [address] Reason for Consult: HPI Ely Hurtado is [...] hemoglobin was 6 prior to transferred to [facility]. She received 2 units of [...] [place], [place] Gastroenterology Fellow. Consult Pager [phone] Discussed with GI attending, Dr. Adrien Caraballo MD Primary team updated yes. Thank you for involving us in the care of this patient. I appreciate the excellent care from the nursing staff, and patient support specialist. Dictated using voice recognition software. [...] Hepatology (more content not included)... Normal [facility] MAGNESIUMon 01-26-2025 Interpretation and review of laboratory results Normal [facility] Magnesium [Mass/Vol] 1.9 mg/dL 1.9 - 2 .7 mg/dL [facility] Magnesium [Mass/Vol] 1.9 mg/dL Normal 1.9-2.7 [facility] Comment on above: Performed By: #### Aruna Olivas, CH8 #### [facility] [address] [place] [address], MANUAL DIFF AND MORPHon 01-08 Cells Counted [...] Aruna Olivas, CH8 #### [facility] [address] [place] [address], FRAGMENTED RBC Few Normal The [facility] Comment on above: Performed By: #### Aruna Olivas, CH8 #### [facility] [address] [place] [address], HYPOCHROMASIA Moderate Normal [facility] Comment on above: Performed By: #### Aruna Olivas, CH8 #### S PATHOLOGY LABORATORY [address] [place] [address], MICROCYTOSIS Slight Normal [facility] Comment on above: Performed By: #### Aruna Olivas, CH8 #### S PATHOLOGY LABORATORY [address] [place] [address], OVALOCYTES Few Normal [facility] Comment on above: Performed By: #### Aruna Olivas, CH8 #### [facility] [address] [place] [address], POLYCHROMASIA Slight Normal [facility] Comment on above: Performed By: #### Aruna Olivas, CH8 #### [facility] [address] [place] [address], Acanthocytes LM Ql (Bld) Few [facility] [place] cells LM Ql (Bld) Few [facility] Cells Counted Total (Bld) [#] [facility] Microcytes Ql (Bld) Slight [facility] Ovalocytes LM Ql (Bld) Few [facility] Polychromasia LM Ql (Bld) Slight [facility] RBC.hypochromic/100 RBC Auto (Bld) Moderate [facility] Schistocytes LM Ql (Bld) Few [facility] ACANTHOCYTES Few Normal [facility] Comment on above: Performed By: #### Aruna Olivas, CH8 #### S PATHOLOGY LABORATORY [address] [place] [address], CARLOS CELLS Few Normal [facility] Comment on above: Performed By: #### Aruna Olivas, CH8 #### S PATHOLOGY LABORATORY [address] [place] [address], CELLS COUNTED TOTAL # IN BLOOD Normal [facility] Comment on above: Performed By: #### Aruna Olivas, CH8 #### S PATHOLOGY LABORATORY [address] [place] [address], FRAGMENTED RBC Few Normal [facility] Comment on above: Performed By: #### Aruna Olivas, CH8 #### S PATHOLOGY LABORATORY [address] [place] [address], HYPOCHROMASIA Moderate Normal [facility] Comment on above: Performed By: #### M G, CH8 #### S PATHOLOGY LABORATORY [address], [place], MICROCYTOSIS Slight Normal [facility] Comment on above: Performed By: #### M G, CH8 #### [facility] [address], [place], OVALOCYTES Few Normal [facility] Comment on above: Performed By: #### M G, CH8 #### [facility] [address], [place], POLYCHROMASIA Slight Normal [facility] Comment on above: Performed By: #### M G, CH8 #### S PATHOLOGY LABORATORY [address], [place], No Panel InformationOrdered By: Eliana Kelsey on 01-26-2025 [facility] No Panel InformationOrdered By: Linda Kang on 01-26-2025 [facility] No Panel Informationon 01-26 [facility] Progress Noteson 01-26-2025 Cupola Patcher Helper Authentication Interface Message Text Division of Pulmonary, [...] x 1 day. Presented to [facility]. Hgb decreased to 6.2. Received 2U [...] Pulmonary, Critical Care, AND Sleep Medicine [facility] PIN [id number] [1] Social History Tobacco Use Smoking Status Not on file Smokeless Tobacco Not on file Normal [facility] Absolute lymphocyte countOrd ered By: Jennie Navarro on 01-25-2025 Lymphocytes Auto (Unsp spec) [#/Vol] 1.53 10*3/uL 0.83-4.[address] [facility] Absolute neutrophil countOrd ered By: Jennie Navarro on 01-25-2025 Neutrophils (Bld) [#/Vol] 5.2 10*3/uL 2.0-7.[address] [facility] Automated lymphocyte count a s percentage of total leukocytesOrdered By: Jennie Navarro on 01-25-2025 Lymphocytes/100 WBC Auto (Unsp spec) 19.2 % 19-[address] [facility] BASIC METABOLIC PANELon 01-07 Anion gap [Moles/Vol] 12 mmol/L Normal 10-20 [facility] Comment on above: Performed By: #### C H8, MG, HEPATIC #### [facility] [address] [place] [address], Calcium [Mass/Vol] 8.3 mg/dL Low 8.6-10.3 [facility] Comment on above: Performed By: #### C H8, MG, HEPATIC #### [facility] [address] [place] [address], Chloride [Moles/Vol] 108 mmol/L High 98-107 [facility] Comment on above: Performed By: #### C H8, MG, HEPATIC #### [facility] [address] [place] [address], CO2 [Moles/Vol] 26 mmol/L Normal 21-31 [facility] Comment on above: Performed By: #### C H8, MG, HEPATIC #### [facility] [address] [place] [address], Creatinine [Mass/Vol] 0.61 mg/dL Normal 0.60-1.20 [facility] Comment on above: Performed By: #### Raquel Gilliland MG, HEPATIC #### [facility] [address] [place] [address], ESTIMATED GFR (CKD-EPI) 89 mL/min/1.73sqm Normal >=60 [...] Inclusion of Race in Diagnosing Kidney Disease. Swedish Journal of Kidney Diseases 2021;79(2):268-88.e1. 2. N Engl J Med 1 Vol. 385 Issue 19 Pages [id number] Performed By: #### Raquel Gilliland MG, HEPATIC #### [facility] [address] [place] [address], Glucose [Mass/Vol] 98 mg/dL Normal 74-109 [facility] Comment on above: Performed By: #### Raquel Gilliland MG, HEPATIC #### [facility] [address] [place] [address], Potassium [Moles/Vol] 3.8 mmol/L Normal 3.5-5.0 [facility] Comment on above: Performed By: #### Raquel H8 MG, HEPATIC #### [facility] [address] [place] [address], Sodium [Moles/Vol] 142 mmol/L Normal 136-145 [facility] Comment on above: Performed By: #### Raquel H8 MG, HEPATIC #### [facility] [address] [place] [address], Urea nitrogen [Mass/Vol] 13 mg/dL Normal 7-25 [facility] Comment on above: Performed By: #### Raquel H8 MG, HEPATIC #### [facility] [address] [place] [address] [place], [address] Basic metabolic 2000 panelon 01-25-2025 Anion gap [...] CKD-EPI (S/P/Bld) [Vol rate/Area] 89 - PINF [facility] Comment on above: 2020 CKD [...] Inclusion of Race in Diagnosing Kidney Disease. [place] Journal of Kidney Diseases 2021;79(2):268-88.e1. 2. N Engl J Med 1 Vol. 385 Issue 19 Pages 9023-1335 Glucose [Mass/Vol] 98 mg/dL 74 - 109 mg/dL [facility] Potassium [Moles/Vol] 3.8 mmol/L 3.5 - 5.0 mmol/L [facility] Sodium [Moles/Vol] 142 mmol/L 136 - 145 mmol/L [facility] Urea nitrogen [Mass/Vol] 13 mg/dL 7 - 25 mg/dL [facility] Basophil percentageOrdered B y: Jennie Navarro on 01-25-2025 Basophils/100 WBC (Bld) 0.5 % 0-[address] [facility] CBC W/Diff, Automatedon 01-07 Hemoglobin (Bld) [Mass/Vol] 6.0 g/dL Invalid Interpretation Code 12.0-15.[address] [facility] Comment on above: Result Comment: CRIT ICAL VALUE CALLED TO TEDDY 01/25/25 4607 Kam Guillermo. RESULTS READ BACK BY SAME. Performed By: #### L 500.4100, L501.5200, L500.4050 #### [facility] [address] [place], [address] Absolute Lymph 1.53 X10 3/uL Normal 0.83-4.[address] [facility] Comment on above: Performed By: #### L 500.4100, L501.5200, L500.4050 #### [facility] [address] [place], [address] Absolute Neut 5.2 X10 3/uL Normal 2.0-7.[address] [facility] Comment on above: Performed By: #### L 500.4100, L501.5200, [id number] #### [facility] [address] [place], [address] Basophils/100 WBC (Bld) 0.5 % Normal 0-[address] [facility] Comment on above: Performed By: #### L 500.4100, L501.5200, [id number] #### [facility] [address] [place], [address] Eosinophils/100 WBC (Bld) 1.0 % Normal 0-[address] [facility] Comment on above: Performed By: #### L 500.4100, L501.5200, [id number] #### [facility] [address] [place], [address] Erythrocyte distribution width (RBC) [Ratio] 15.8 % High 11.6-14.[address] [facility] Comment on above: Performed By: #### L 500.4100, L501.5200, [id number] #### [facility] [address] [place], [address] Hematocrit (Bld) [Volume fraction] 20.9 % Low 37-[address] [facility] Comment on above: Performed By: #### L 500.4100, L501.5200, L500.4050 #### [facility] [address] [place], [address] IG% 0.300 Normal 0.0-0.[address] [facility] Comment on above: Result Comment: IG% - Immature Granulocytes (promyelocytes, myelocytes and metamyelocytes) > 1% indicates that a LEFT SHIFT is Present. Performed By: #### L 500.4100, L501.5200, L500.4050 #### [facility] [address] [place], [address] Lymphocytes/100 WBC (Bld) 19.2 % Normal 19-[address] [facility] Comment on above: Performed By: #### L 500.4100, L501.5200, L500.4050 #### [facility] [address] [place], [address] MCH (RBC) [Entitic mass] 20.9 pg Low 27.0-32.[address] [facility] Comment on above: Performed By: #### L 500.4100, L501.5200, [id number] #### [facility] [address] [place], [address] MCHC (RBC) [Mass/Vol] 28.7 g/dL Low 32-36 [facility] Comment on above: Performed By: #### L 500.4100, L501.5200, [id number] #### [facility] [address] [place], [address] MCV (RBC) [Entitic vol] 72.8 fL Low 81-[address] [facility] Comment on above: Performed By: #### L 500.4100, L501.5200, [id number] #### [facility] [address] [place], [address] Monocytes/100 WBC (Bld) 14.1 % High 0-[address] [facility] Comment on above: Performed By: #### L 500.4100, L501.5200, [id number] #### [facility] [address] [place], [address] Neutrophils/100 WBC (Bld) 64.9 % Normal 47-[address] [facility] Comment on above: Performed By: #### L 500.4100, L501.5200, [id number] #### [facility] [address] [place], [address] Nucleated RBC (Bld) [#/Vol] 0 10*3/uL Normal 0-[address] [facility] Comment on above: Performed By: #### L 500.4100, L501.5200, [id number] #### [facility] [address] [place], [address] Platelet mean volume (Bld) [Entitic vol] 10.6 fL Normal 6.2-12.[address] [facility] Comment on above: Performed By: #### L 500.4100, L501.5200, [id number] #### [facility] [address] [place], [address] Platelets (Bld) [#/Vol] 232 10*3/uL Normal 150-[address] [facility] Comment on above: Performed By: #### L 500.4100, L501.5200, L500.4050 #### [facility] [address] [place], [address] RBC (Bld) [#/Vol] 2.87 10*6/uL Low 4.2-5.4 [facility] Comment on above: Performed By: #### L 500.4100, L501.5200, [id number] #### [facility] [address] [place], [address] RDW SD 41.3 fl Normal 35.1-43.[address] [facility] Comment on above: Performed By: #### L 500.4100, L501.5200, [id number] #### [facility] [address] [place], [address] WBC (Bld) [#/Vol] 8.0 10*3/uL Normal 4.4-11.0 [facility] Comment on above: Performed By: #### L 500.4100, L501.5200, L500.4050 #### [facility] [address] [place], [address] CBC WITH DIFFERENTIALOrdered By: Terri Simon on [...] RBC (Bld) [#/Vol] 3.86 10*6/uL Low [facility] WBC (Bld) [#/Vol] 7.8 10*3/uL 4.5 - 11.5 K/uL [facility] CBC WITH DIFFERENTIALon 01-07 Basophils (Bld) [#/Vol] 0.08 10*3/uL Normal 0.00-0.20 [facility] Comment on above: Performed By: #### Aruna Olivas, CH8 #### S PATHOLOGY LABORATORY [address], [place], Basophils/100 WBC (Bld) 1.1 % Normal <=1.9 [facility] Comment on above: Performed By: #### Aruna Olivas, CH8 #### S PATHOLOGY LABORATORY [address], [place], Eosinophils (Bld) [#/Vol] 0.06 10*3/uL Normal 0.00-0.70 [facility] Comment on above: Performed By: #### Aruna Olivas, CH8 #### S PATHOLOGY LABORAT[facility] [address], [place], Eosinophils/100 WBC (Bld) 0.8 % Normal 0.1-4.0 [facility] Comment on above: Performed By: #### Aruna Olivas, CH8 #### S PATHOLOGY LABORATORY [address], [place], Erythrocyte distribution width (RBC) [Ratio] 19.7 % High 11.5-14.5 [facility] Comment on above: Performed By: #### Aruna Olivas, CH8 #### [facility] [address] [place] [address], Hematocrit (Bld) [Volume fraction] 28.2 % Low 36.0-46.0 [facility] Comment on above: Performed By: #### Aruna Olivas, CH8 #### [facility] [address] [place] [address], Hemoglobin (Bld) [Mass/Vol] 9.0 g/dL Low 12.0-15.0 [facility] Comment on above: Performed By: #### Aruna Olivas, CH8 #### [facility] [address] [place] [address], Lymphocytes (Bld) [#/Vol] 1.20 10*3/uL Normal 1.00-4.80 [facility] Comment on above: Performed By: #### Aruna Olivas, CH8 #### [facility] [address] [place] [address], Lymphocytes/100 WBC (Bld) 15.4 % Low 24.0-44.0 [facility] Comment on above: Performed By: #### Aruna Olivas, CH8 #### [facility] [address] [place] [address], MCH (RBC) [Entitic mass] 23.4 pg Low 26.0-34.0 [facility] Comment on above: Performed By: #### Aruna Olivas, CH8 #### [facility] [address] [place] [address], MCHC (RBC) [Mass/Vol] 32.1 g/dL Normal 32.0-35.9 [facility] Comment on above: Performed By: #### Aruna Olivas, CH8 #### [facility] [address] [place] [address], MCV (RBC) [Entitic vol] 73 fL Low 80-100 [facility] Comment on above: Performed By: #### Aruna Olivas, CH8 #### [facility] [address] [place] [address], Monocytes (Bld) [#/Vol] 0.88 10*3/uL Normal 0.20-1.00 [facility] Comment on above: Performed By: #### Aruna Olivas, CH8 #### [facility] [address] [place] [address], Monocytes/100 WBC (Bld) 11.4 % High 2.0-11.0 [facility] Comment on above: Performed By: #### Aruna Olivas, CH8 #### [facility] [address] [place] [address], Neutrophils (Bld) [#/Vol] 5.53 10*3/uL Normal 1.50-8.00 [facility] Comment on above: Performed By: ###Roger Olivas, CH8 #### [facility] [address] [place] [address], Neutrophils/100 WBC (Bld) 71.3 % Normal 31.0-76.0 [facility] Comment on above: Performed By: ###Roger Olivas, CH8 #### [facility] [address] [place] [address], Platelet mean volume (Bld) [Entitic vol] 8.0 fL Normal 7.5-11.2 [facility] Comment on above: Performed By: ###Roger Olivas, CH8 #### [facility] [address] [place] [address], Platelets (Bld) [#/Vol] 189 10*3/uL Normal 150-400 [facility] Comment on above: Performed By: #### Aruna Olivas, CH8 #### [facility] [address] [place] [address], RBC (Bld) [#/Vol] 3.86 10*6/uL Low 4.00-5.20 [facility] Comment on above: Performed By: ###Roger Olivas, CH8 #### [facility] [address] [place] [address], WBC (Bld) [#/Vol] 7.8 10*3/uL Normal 4.5-11.5 [facility] Comment on above: Performed By: #### Aruna Olivas, CH8 #### [facility] [address] [place], [address] CBC panel Auto (Bld)on 01-25 Erythrocyte distribution width (RBC) [Ratio] 19.8 % High 11.5 - 14.5 % [facility] Hematocrit (Bld) [Volume fraction] 29.7 % Low 36.0 - 46.0 % [facility] Hemoglobin (Bld) [Mass/Vol] 9.8 g/dL Low 12.0 - 15.0 g/dL [facility] Interpretation and review of laboratory results Abnormal [facility] MCH (RBC) [Entitic mass] 23.8 pg Low 26.0 - 34.0 pg [facility] MCHC (RBC) [Mass/Vol] 33 g/dL 32.0 - 35.9 g/dL [facility] MCV (RBC) [Entitic vol] 72 fL Low 80 - 100 fL [facility] Platelet mean volume (Bld) [Entitic vol] 8.5 fL 7.5 - 11.2 fL [facility] Platelets (Bld) [#/Vol] 221 10*3/uL 150 - 400 K/uL [facility] RBC (Bld) [#/Vol] 4.11 10*6/uL [facility] WBC (Bld) [#/Vol] 10.2 10*3/uL 4.5 - 11.5 K/uL [facility] [facility] CBC-Complete Blood Cnt No Di ffon 01-25-2025 HCT Normal 37-[address] [facility] Comment on above: Order Comment: 155 Result Comment: [facility] Performed By: #### L 500.4100, L501.5200, L500.4050 #### [facility] [address] [place], [address] HGB Normal 12.0-15.[address] [facility] Comment on above: Order Comment: 155 Result Comment: [facility] Performed By: #### L 500.4100, L501.5200, L500.4050 #### [facility] [address] [place], [address] MCH Normal 27.0-32.[address] [facility] Comment on above: Order Comment: 155 Result Comment: [facility] Performed By: #### L 500.4100, L501.5200, L500.4050 #### [facility] [address] [place], [address] MCHC Normal 32-[address] [facility] Comment on above: Order Comment: 155 Result Comment: [facility] Performed By: #### L 500.4100, L501.5200, L500.4050 #### [facility] [address] [place], [address] MCV Normal 81-[address] [facility] Comment on above: Order Comment: 155 Result Comment: [facility] Performed By: #### L 500.4100, L501.5200, L500.4050 #### [facility] [address] [place], [address] PLT Normal 150-[address] [facility] Comment on above: Order Comment: 155 Result Comment: [facility] Performed By: #### L 500.4100, L501.5200, L500.4050 #### [facility] [address] [place], [address] RBC Normal 4.2-5.[address] [facility] Comment on above: Order Comment: 155 Result Comment: [facility] Performed By: #### L 500.4100, L501.5200, L500.4050 #### [facility] [address] [place], [address] RDW CV Normal 11.6-14.[address] [facility] Comment on above: Order Comment: 155 Result Comment: [facility] Performed By: #### L 500.4100, L501.5200, L500.4050 #### [facility] [address] [place], [address] RDW SD Normal 35.1-43.[address] [facility] Comment on above: Order Comment: 155 Result Comment: [facility] Performed By: #### L 500.4100, L501.5200, L500.4050 #### [facility] [address] [place], [address] WBC Normal 4.4-11.[address] [facility] Comment on above: Order Comment: 155 Result Comment: [facility] Performed By: #### L 500.4100, L501.5200, L500.4050 #### [facility] [address] [facility] [place], [address] COMPLETE BLOOD COUNTon 01-25 Erythrocyte distribution width (RBC) [Ratio] 19.8 % High 11.5-14.5 [facility] Comment on above: Performed By: #### Aruna Olivas, CH8 #### S PATHOLOGY LABORATORY [address] [place] [address], Hematocrit (Bld) [Volume fraction] 29.7 % Low 36.0-46.0 [facility] Comment on above: Performed By: #### Aruna Olivas, CH8 #### S PATHOLOG[facility] LABORATORY [address] [place] [address], Hemoglobin (Bld) [Mass/Vol] 9.8 g/dL Low 12.0-15.0 [facility] Comment on above: Performed By: #### Aruna Olivas, CH8 #### S [facility]ORY [address] [place] [address], MCH (RBC) [Entitic mass] 23.8 pg Low 26.0-34.0 [facility] Comment on above: Performed By: #### Aruna Olivas, CH8 #### [facility] [address], [place], MCHC (RBC) [Mass/Vol] 33.0 g/dL Normal 32.0-35.9 [facility] Comment on above: Performed By: #### Aruna Olivas, CH8 #### [facility] [address], [place], MCV (RBC) [Entitic vol] 72 fL Low 80-100 [facility] Comment on above: Performed By: #### M G, CH8 #### [facility] PATHOLOGY [facility]ORAT[facility] [address], [place], Platelet mean volume (Bld) [Entitic vol] 8.5 fL Normal 7.5-11.2 [facility] Comment on above: Performed By: #### Aruna Olivas, CH8 #### S PATHOLOGY LABORATORY [address], [place], Platelets (Bld) [#/Vol] 221 10*3/uL Normal 150-400 [facility] Comment on above: Performed By: #### Aruna Olivas, CH8 #### [facility] PATH[facility] [address], [place], RBC (Bld) [#/Vol] 4.11 10*6/uL Normal 4.00-5.20 [facility] Comment on above: Performed By: #### Aruna Olivas, CH8 #### [facility] PATH[facility]Y [facility] [address], [place], WBC (Bld) [#/Vol] 10.2 10*3/uL Normal 4.5-11.5 [facility] Comment on above: Performed By: #### Aruna Olivas, CH8 #### [facility] [address], [place], CONFIRMATION ABO/RHon 2024 Specimen Expiration Date [id number] [facility] CTA ABDOMEN + PELVIS W/on CTA [...] Saleh on 01-25-2025 CT DLP 985.85 (mGy.cm) [facility] Work Phone: CT Series Topogram,Topogram,AB D PEL WO,PreMonitoring ,Monitoring,CTA ABD PEL ,70s DELAY [facility] Work Phone: CTDI VOL 0.01 (mGy),0.01 (mGy),6.46 (mGy),0.79 (mGy),2.37 (mGy),6.32 (mGy),6.13 (mGy) [facility] Work Phone: PHANTOM TYPE IEC Body Dosimetry Phantom,IEC Body Dosimetry Phantom,IEC Body Dosimetry Phantom,IEC Body Dosimetry Phantom,IEC Body Dosimetry Phantom,IEC Body Dosimetry Phantom,IEC Body Dosimetry Phantom [facility] Work Phone: [facility] Work Phone: CTA Abdominal vessels and Pe [...] Chronic ancillary findings as above. MACRO: None [facility] Radiology Study observation (narrative) [facility] Consultson 01-25-2025 [employer] Authentication Interface Message Text Interventional Radiology Consult [...] past surgical history on file. Normal [facility] EKG 12 LEAD - PERFORMon 01-07 Diagnosis Normal sinus rhythm Left axis deviation Low voltage QRS, consider pulmonary disease, pericardial effusion, or normal variant Incomplete right bundle branch block Inferior infarct , age undetermined Abnormal ECG Confirmed by Layne Delgadoint ([id number]) on 01/25/2025 5:27:19 PM [facility] P wave Atrium by EKG 82 BPM [facility] P wave axis 16 degrees [facility] P-R Interval 174 ms [facility] Q-T interval 436 ms [facility] Q-T interval corrected 509 ms [facility]x [facility] QRS axis -40 degrees [facility] QRS duration 102 ms [facility] T wave axis -10 degrees [facility] Eosinophil percentageOrdered By: Jennie Navarro on 01-25-2025 Eosinophils/100 WBC (Bld) 1.0 % 0-[address] [facility] Erythrocyte distribution wid th ratioOrdered By: Jennie Navarro on 01-25-2025 Erythrocyte distribution width (RBC) [Ratio] 15.8 % High 11.6-14.[address] [facility] Erythrocyte distribution wid th standard deviationOrdered By: Jennie Navarro on 01-25-2025 Erythrocyte distribution width (RBC) [Ratio] 41.3 fl 35.1-43.[address] [facility] H AND Luis Felipe 01-25-2025 [employer]per Authentication Interface Message Text .[facility] Step Down Unit - H AND P Patient: Ely Hurtado : 1940 Sex: female Room: [place] [address] Admission: 01/25/2025 Today: 01/25/2025 (Length of stay: 1 day(s)) HISTORY OF PRESENT ILLNESS: CHIEF COMPLAINT: No chief complaint on file. 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 Patient who currently resides at [facility] ([place]) where she was found to have significant bright red blood in her stool following multiple episodes of diarrhea on the morning of 01/24. They were transferred to the [facility] ED later that day for further [...] Intake/Output Summary (Last 24 hours) at 01/25/2025 2819 Last data filed at 01/25/2025 1600 Gross [...] 140-180 (more content not included)... Normal [facility] HEPATIC FUNCTION PANELon Albumin [Mass/Vol] 3.4 [...] MG, HEPATIC #### [facility] [address], [place], ALK 52 IU/L Normal 34-104 [facility] Comment on above: Performed By: #### Raquel Gilliland MG, HEPATIC #### [facility] [address], [place], ALT [Catalytic activity/Vol] 7 U/L Normal 7-52 [facility] Comment on above: Performed By: #### C H8, MG, HEPATIC #### [facility] [address], [place], AST [Catalytic activity/Vol] 15 U/L Normal 13-39 [facility] Comment on above: Performed By: #### C H8, MG, HEPATIC #### [facility] [address], [place], Bilirubin [Mass/Vol] 2.5 mg/dL High 0.3-1.0 [facility] Comment on above: Performed By: #### C H8, MG, HEPATIC #### [facility] [address], [place], Bilirubin.direct [Mass/Vol] 0.42 mg/dL High 0.03-0.18 [facility] Comment on above: Performed By: #### C H8, MG, HEPATIC #### [facility] PATH[facility]Y [facility] [address], [place], Protein [Mass/Vol] 5.1 g/dL Low 6.0-8.3 [facility] Comment on above: Performed By: #### C H8, MG, HEPATIC #### [facility] PATH[facility] [address], [place], Hematocrit Auto (Bld) [Volum e fraction]Ordered By: Jennie Navarro on 01-25-2025 Hematocrit (Bld) [Volume fraction] 20.9 % Low 37-[address] [facility] Hemoglobin measurementOrdere d By: Jennie Navarro on 01-25-2025 Hemoglobin (Bld) [Mass/Vol] 6.0 g/dL Low 12.0-15.[address] [facility] Comment on above: CRITICAL VALUE PRINCE D TO [id number]/19/25 0447 Kam Guillermo.RESULTS READ BACK BY SAME. Immature granulocytes/100 WB C Auto (Bld)Ordered By: Jennie Navarro on 01-25-2025 Immature granulocytes/100 WBC (Bld) 0.300 % 0.0-0.[address] [facility] Comment on above: IG% - Immature Granu locytes (promyelocytes, myelocytes and metamyelocytes) > 1% indicates that a LEFT SHIFT is Present. LACTIC ACIDOrdered By: Tammy Riggs on 01-25-2025 Interpretation and review of laboratory results Normal [facility] Lactate [Moles/Vol] 1 mmol/L 0.5 - 1. 6 mmol/L [facility] This test was developed, and its performance characteristics determined by the Department of Pathology of The [facility]. It has not been cleared or approved by the FDA. This test is used for clinical purposes only. [facility] LACTIC ACIDon 01-25-2025 CR LACT 1.0 mmol/L Normal 0.5-1.6 [facility] Comment on above: Order Comment: This test was developed, and its performance characteristics determined by the Department of Pathology of The [facility]. It has not been cleared or approved by the FDA. This test is used for clinical purposes only. Performed By: #### L ACT #### [facility] [address] [place] [address], [id number] Laboratory - Blood bankon ABO and Rh group Nom (Bld) Blood group O Rh(D) positive [facility] Lactic Acidon 01-25-2025 Lactate [Moles/Vol] 1.3 mmol/L Normal 0.0-2.0 [facility] Comment on above: Performed By: #### L 500.4100, L501.5200, L500.4050 #### [facility] [address] [place], [place], [id number] Lactate [Moles/Vol] 2.0 mmol/L Normal 0.0-2.0 [facility] Comment on above: Order Comment: 155 Result Comment: Crit ical Result(s) Called at: 0459 by:??JESSICA HAVEN TO MAKENZIE SPARR Results read back by same. Performed By: #### L 500.4100, L501.5200, L500.4050 #### [facility] [address] [place], [place], [id number] Lactic acid measurementOrder ed By: Jennie Navarro on 01-25-2025 Lactate [Moles/Vol] 2.0 mmol/L 0.0-2.0 [facility] Comment on above: Critical Result(s) C alled at: 0459 by: JESSICA SELLERS Results read back by same. MAGNESIUMon 01-25-2025 Interpretation and review of laboratory results Normal [facility] Magnesium [Mass/Vol] 2 mg/dL 1.9 - 2 .7 mg/dL [facility] Magnesium [Mass/Vol] 2.0 mg/dL Normal 1.9-2.7 [facility] Comment on above: Performed By: #### C H8, MG, HEPATIC ####S PATHOLOGY [address] [place], [place], MANUAL DIFF AND MORPHon 01-07 Cells Counted Total (Bld) [#] [facility] Microcytes Ql (Bld) Slight [facility] Ovalocytes LM Ql (Bld) Few [facility] RBC.hypochromic/100 RBC Auto (Bld) Moderate [facility] CELLS COUNTED TOTAL # IN BLOOD Normal [facility] Comment on above: Performed By: #### Aruna Olivas, CH8 #### S PATHOLOGY LABORATORY [address] [place] [address], HYPOCHROMASIA Moderate Normal [facility] Comment on above: Performed By: #### Aruna lOivas, CH8 #### S PATHOLOGY LABORATORY [address] [place] [address], MICROCYTOSIS Slight Normal [facility] Comment on above: Performed By: #### Aruna Olivas, CH8 #### S PATHOLOGY LABORATORY [address] [place] [address], OVALOCYTES Few Normal [facility] Comment on above: Performed By: #### Aruna Olivas, CH8 #### S PATHOLOGY LABORATORY [address] [place] [address], MCV (mean corpuscular volume ) determinationOrdered By: Jennie Navarro on 01-25-2025 MCV (RBC) [Entitic vol] 72.8 fL Low 81-[address] [facility] Mean corpuscular hemoglobin (MCH) determinationOrdered By: Jennie Navarro on 01-25-2025 MCH (RBC) [Entitic mass] 20.9 pg Low 27.0-32.[address] [facility] Mean corpuscular hemoglobin concentration (MCHC) determinationOrdered By: Jennie Navarro on 01-25-2025 MCHC (RBC) [Mass/Vol] 28.7 g/dL Low 32-36 [facility] Mean platelet volume determi nationOrdered By: Jennie Navarro on 01-25-2025 Platelet mean volume (Bld) [Entitic vol] 10.6 fL 6.2-12.[address] [facility] Monocyte percentageOrdered B y: Jennie Navarro on 01-25-2025 Monocytes/100 WBC (Bld) 14.1 % High 0-[address] [facility] Neutrophil percentageOrdered By: Jennie Navarro on 01-25-2025 Neutrophils/100 WBC (Bld) 64.9 % 47-[address] [facility] No Panel InformationOrdered By: Terri Simon on 01-25-2025 [facility] No Panel Informationon 01-25 Interpretation and review of laboratory results Abnormal [facility] Nucleated red blood cell per centageOrdered By: Jennie Navarro on 01-25-2025 Nucleated RBC/100 WBC (Bld) [Ratio] 0 % 0-[address] [facility] PROTHROMBIN TIME AND INRon 0 01-25-2025 INR Coag (PPP) [Relative time] 1.22 {INR} High 0.90 - 1.10 [facility] Interpretation and review of laboratory results Abnormal [facility] PT Coag (PPP) [Time] 13.7 s High [facility] INR Coag (PPP) [Relative time] 1.22 {INR} High 0.90-1.10 [facility] Comment on above: Performed By: #### P T #### [facility] [address] [place] [address], PT Coag (PPP) [Time] 13.7 s High 9.7-12.9 [facility] Comment on above: Performed By: #### P T #### [facility] [address] [place] [address], Platelet countOrdered By: Nicola Navarro on 01-25-2025 Platelets (Bld) [#/Vol] 232 10*3/uL 150-[address] [facility] RBC Auto (Bld) [#/Vol]Ordere d By: Jennie Navarro on 01-25-2025 RBC (Bld) [#/Vol] 2.87 10*6/uL Low 4.2-5.4 [facility] TYPE AND SCREENon 01-25-2025 ABO and Rh group Nom (Bld) Blood group O Rh(D) positive [facility] ABO and Rh group Nom (Bld) No Previous Results [facility] Blood group antibody screen Ql Negative [facility] Specimen Expiration Date [id number] [facility] Telephone Encounteron 2024 [employer]per Authentication Interface Message Text I was called by [facility] regarding a transfer from [employer]. That facility is requesting transfer because Services [...] or Unavailable at the time of acceptance, [facility] can supply the call back number. The [...] Keyon Fallon DO Division of Hospital Medicine, [facility] Pager#: [phone] Normal [facility] White blood cell (WBC) count Ordered By: Jennie Navarro on 01-25-2025 WBC (Bld) [#/Vol] 8.0 10*3/uL 4.4-11.0 [facility] 12 Lead EKGon 01-24-2025 12 Lead EKG [facility] [address] [place] [address] 12 Lead EKG 01/24/25 2219 MR#: [id number] Acct: [id number] Name: ELY HURTADO Rep #: [id number] : 1940 84 From: Pascual Bonilla MD [...] Abnormal ECG Confirmed by PASCUAL BONILLA MD ([id number]), photographic editor JOSE PEARSON ([id number]) on 01/26/2025 9:35:16 AM Referred By: Confirmed By: PASCUAL BONILLA MD 01/26/25 0935 Date Pascual Bonilla MD CC: Dr. Power Borges DO; Dianna Guido MD Signed Normal [facility] Activated partial thrombopla stin time (aPTT) in platelet poor plasma by coagulation aOrdered By: Power Borges on 01-24-2025 aPTT Coag (PPP) [Time] 30.3 s 24.1-36.2 [facility] Anion gap in Serum or Plasma Ordered By: Power Borges on 01-24-2025 Anion gap [Moles/Vol] 12 mmol/L 5-15 [facility] BRCon 01-24-2025 RC Normal [facility] Comment on above: Result Comment: [id number] OP RC TRANSFUSED 01/25/25 0738 [id number] OP RC TRANSFUSED 01/25/25 0535 Performed By: #### L 500.4100, L501.5200, L500.4050 #### [facility] [address] [place], [address] BUN/creatinine ratioOrdered By: Power Borges on 01-24-2025 Urea nitrogen/Creatinine [Mass ratio] 18.4 mg/mg - [facility] Basic Metabolic Profile (BMP )on 01-24-2025 BUN/CRE 18.4 RATIO Normal 03-[address] [facility] Comment on above: Performed By: #### L 500.4100, L501.5200, L500.4050 #### [facility] [address] [place], [address] Calcium [Mass/Vol] 9.0 mg/dL Normal 7.6-11.0 [facility] Comment on above: Performed By: #### L 500.4100, L501.5200, L500.4050 #### [facility] [address] [place], [address] Chloride [Moles/Vol] 103 mmol/L Normal 98-108 [facility] Comment on above: Performed By: #### L 500.4100, L501.5200, L500.4050 #### [facility] [address] [place], [address] CO2 [Moles/Vol] 24.8 mmol/L Normal 21.0-32.[address] [facility] Comment on above: Performed By: #### L 500.4100, L501.5200, L500.4050 #### [facility] [address] [place], [address] Creatinine [Mass/Vol] 0.84 mg/dL Normal 0.70-1.20 [facility] Comment on above: Performed By: #### L 500.4100, L501.5200, L500.4050 #### [facility] [address] [place], [address] ECRCL 48.18 ml/min Low 50-[address] [facility] Comment on above: Performed By: #### L 500.4100, L501.5200, L500.4050 #### [facility] [address] [place], [address] GAP 12 Normal 5-[address] [facility] Comment on above: Performed By: #### L 500.4100, L501.5200, L500.4050 #### [facility] [address] [place], [address] GFR/1.73 sq M.predicted among non-blacks MDRD (S/P/Bld) [Vol rate/Area] 69 mL/min/{1.73_m2} Normal >[address] [facility] Comment on above: Result Comment: mL/m in/1.73m2 CKD-EPI Creatinine Equation (2020) Performed By: #### L 500.4100, L501.5200, L500.4050 #### [facility] [address] [place], [address] Glucose [Mass/Vol] 116 mg/dL High 70-99 [facility] Comment on above: Performed By: #### L 500.4100, L501.5200, L500.4050 #### [facility] [address] [place], [address] Potassium [Moles/Vol] 4.3 mmol/L Normal 3.3-5.1 [facility] Comment on above: Performed By: #### L 500.4100, L501.5200, L500.4050 #### [facility] [address] [place], [address] Sodium [Moles/Vol] 140 mmol/L Normal 133-145 [facility] Comment on above: Performed By: #### L 500.4100, L501.5200, L500.4050 #### [facility] [address] [place], [address] Urea nitrogen [Mass/Vol] 15 mg/dL Normal 4-[address] [facility] Comment on above: Performed By: #### L 500.4100, L501.5200, L500.4050 #### [facility] [address] [place], [address] CBC W/Diff, Automatedon 01-07 Absolute Lymph 2.22 X10 3/uL Normal 0.83-4.[address] [facility] Comment on above: Performed By: #### L 500.2500, L300.4310, L300.3900, M100.7900, BTS, L100.0100 #### [facility] [address] [place], [address] Absolute Neut 6.1 X10 3/uL Normal 2.0-7.[address] [facility] Comment on above: Performed By: #### L 500.2500, L300.4310, L300.3900, M100.7900, BTS, L100.0100 #### [facility] [address] [place], [address] Basophils/100 WBC (Bld) 0.4 % Normal 0-[address] [facility] Comment on above: Performed By: #### L 500.2500, L300.4310, L300.3900, M100.7900, BTS, L100.0100 #### [facility] [address] [place], [address] Eosinophils/100 WBC (Bld) 1.1 % Normal 0-[address] [facility] Comment on above: Performed By: #### L 500.2500, L300.4310, L300.3900, M100.7900, BTS, L100.0100 #### [facility] [address] [place], [address] Erythrocyte distribution width (RBC) [Ratio] 15.8 % High 11.6-14.[address] [facility] Comment on above: Performed By: #### L 500.2500, L300.4310, L300.3900, M100.7900, BTS, L100.0100 #### [facility] [address] [place], [address] Hematocrit (Bld) [Volume fraction] 28.7 % Low 37-[address] [facility] Comment on above: Performed By: #### L 500.2500, L300.4310, L300.3900, M100.7900, BTS, L100.0100 #### [facility] [address] [place], [address] Hemoglobin (Bld) [Mass/Vol] 8.2 g/dL Low 12.0-15.[address] [facility] Comment on above: Performed By: #### L 500.2500, L300.4310, L300.3900, M100.7900, BTS, L100.0100 #### [facility] [address] [place], [address] IG% 0.300 Normal 0.0-0.[address] [facility] Comment on above: Result Comment: IG% - Immature Granulocytes (promyelocytes, myelocytes and metamyelocytes) > 1% indicates that a LEFT SHIFT is Present. Performed By: #### L 500.2500, L300.4310, L300.3900, M100.7900, BTS, L100.0100 #### [facility] [address] [place], [address] Lymphocytes/100 WBC (Bld) 22.8 % Normal 19-[address] [facility] Comment on above: Performed By: #### L 500.2500, L300.4310, L300.3900, M100.7900, BTS, L100.0100 #### [facility] [address] [place], [address] MCH (RBC) [Entitic mass] 20.7 pg Low 27.0-32.[address] [facility] Comment on above: Performed By: #### L 500.2500, L300.4310, L300.3900, M100.7900, BTS, L100.0100 #### [facility] [address] [place], [address] MCHC (RBC) [Mass/Vol] 28.6 g/dL Low 32-36 [facility] Comment on above: Performed By: #### L 500.2500, L300.4310, L300.3900, M100.7900, BTS, L100.0100 #### [facility] [address] [place], [address] MCV (RBC) [Entitic vol] 72.5 fL Low 81-[address] [facility] Comment on above: Performed By: #### L 500.2500, L300.4310, L300.3900, M100.7900, BTS, L100.0100 #### [facility] [address] [place], [address] Monocytes/100 WBC (Bld) 12.8 % High 0-[address] [facility] Comment on above: Performed By: #### L 500.2500, L300.4310, L300.3900, M100.7900, BTS, L100.0100 #### [facility] [address] [place], [address] Neutrophils/100 WBC (Bld) 62.6 % Normal 47-[address] [facility] Comment on above: Performed By: #### L 500.2500, L300.4310, L300.3900, M100.7900, BTS, L100.0100 #### [facility] [address] [place], [address] Nucleated RBC (Bld) [#/Vol] 0 10*3/uL Normal 0-[address] [facility] Comment on above: Performed By: #### L 500.2500, L300.4310, L300.3900, M100.7900, BTS, L100.0100 #### [facility] [address] [place], [address] Platelet mean volume (Bld) [Entitic vol] 10.0 fL Normal 6.2-12.[address] [facility] Comment on above: Performed By: #### L 500.2500, L300.4310, L300.3900, M100.7900, BTS, L100.0100 #### [facility] [address] [place], [address] Platelets (Bld) [#/Vol] 335 10*3/uL Normal 150-[address] [facility] Comment on above: Performed By: #### L 500.2500, L300.4310, L300.3900, M100.7900, BTS, L100.0100 #### [facility] [address] [place], [address] RBC (Bld) [#/Vol] 3.96 10*6/uL Low 4.2-5.4 [facility] Comment on above: Performed By: #### L 500.2500, L300.4310, L300.3900, M100.7900, BTS, L100.0100 #### [facility] [address] [place], [address] RDW SD 41.1 fl Normal 35.1-43.[address] [facility] Comment on above: Performed By: #### L 500.2500, L300.4310, L300.3900, M100.7900, BTS, L100.0100 #### [facility] [address] [place], [address] WBC (Bld) [#/Vol] 9.8 10*3/uL Normal 4.4-11.0 [facility] Comment on above: Performed By: #### L 500.2500, L300.4310, L300.3900, M100.7900, BTS, L100.0100 #### [facility] [address] [place], [address] CTA Abd/Pelvis W/WO Contrast on 01-24-2025 CTA Abd/Pelvis W/WO Contrast [facility] [address] [place] [address] CTA Abd/Pelvis W/WO Contrast MR#: [id number] Acct: [id number] Name: ELY HURTADO Patsy Rep #: [id number] : 1940 F 84 From: Tino Garza MD PCP: Dianna Guido MD Status: REG ER Study: CTA Abd/Pelvis W/WO Contrast Date of Exam: Exam# [id number] Ordering Dr: Power Borges DO PROCEDURE: CTA [...] provider Power Borges 01/24/2025 at 10:50 p.m. STAGE TECHNICIAN. Reading Location: [facility] CC: Dr. Power Borges DO; Dianna Guido MD Bleach Range Operator: Signed Normal [facility] Carbon dioxide, total [Moles /volume] in Central venous bloodOrdered By: Power Borges on 01-24-2025 CO2 [Moles/Vol] 24.8 mmol/L 21.0-32.[address] [facility] Chloride assayOrdered By: Raffaele laureano Katerina on 01-24-2025 Chloride [Moles/Vol] 103 mmol/L 98-108 [facility] Emergency Department Summary on 01-24-2025 Emergency Department Summary [facility] Medical Records Department [address] [place] [address] Emergency Department Summary 01/24/25 MR#: [id number] Acct: [id number] Name: ELY HURTADO Rep #: [id number] : 1940 84 From: Power Weeks PCP: Dianna Guido MD Status:DEP ER Location: ED HPI HPI - GI History of Present Illness Chief Complaint: GI Bleed Informant: patient and EMS Narrative Narrative: Discontinue hydroxyzine sent in from [facility] living for increasing rectal bleeding reported blood [...] (more content not included)... Normal [facility] Glomerular filtration rate ( GFR) estimation/1.73 sq m using serum, plasma, or whole bOrdered By: Power Borges on 01-24-2025 GFR/1.73 sq M.predicted among non-blacks MDRD (S/P/Bld) [Vol rate/Area] 69 mL/min/{1.73_m2} >[address] [facility] Comment on above: mL/min/1.73m2 CKD-EP I Creatinine Equation (2020) International normalized rat io (INR) calculationOrdered By: Power Borges on 01-24-2025 INR Coag (Bld) [Relative time] 1.5 {INR} [facility] Partial Thromboplast Timeon 01-24-2025 aPTT Coag (Bld) [Time] 30.3 s Normal 24.1-36.2 [facility] Comment on above: Performed By: #### L 500.0211, L501.5200, L500.4050 #### [facility] [address] [place], [place], [address] Potassium measurement (mass/ volume)Ordered By: Power Borges on 01-24-2025 Potassium (Unsp spec) [Mass/Vol] 4.3 mmol/L 3.3-5.[address] [facility] Prothrombin Time w/INRon INR Coag (PPP) [Relative time] 1.5 {INR} Normal [facility] Comment on above: Performed By: #### L 500.4100, L501.5200, L500.4050 #### [facility] [address] [place], [address] PT Coag (PPP) [Time] 17.9 s High 11.7-14.9 [facility] Comment on above: Performed By: #### L 500.4100, L501.5200, L500.4050 #### [facility] [address] [place], [address] Prothrombin timeOrdered By: Power Borges on 01-24-2025 PT Coag (PPP) [Time] 17.9 s High 11.7-14.9 [facility] Serum creatinine measurement (mass/volume)Ordered By: Power Borges on 01-24-2025 Creatinine [Mass/Vol] 0.84 mg/dL 0.70-1.20 [facility] Serum glucose measurement (m ass/volume)Ordered By: Power Borges on 01-24-2025 Glucose [Mass/Vol] 116 mg/dL High 70-99 [facility] Serum or plasma calcium slava urement (mass/volume)Ordered By: Power Borges on 01-24-2025 Calcium [Mass/Vol] 9.0 mg/dL 7.6-11.0 [facility] Serum or plasma urea nitroge n measurement (mass/volume)Ordered By: Power Borges on 01-24-2025 Urea nitrogen [Mass/Vol] 15 mg/dL 4-[address] [facility] Sodium levelOrdered By: Power Borges on 01-24-2025 Sodium [Moles/Vol] 140 mmol/L 133-145 [facility] Stool Occult Blood iFOBon STOB Positive Normal [facility] Comment on above: Performed By: #### L 500.2500, L300.4310, L300.3900, M100.7900, BTS, L100.0100 #### [facility] [address] [place], [address] Stool gastrointestinal hemog lobin detection by immunologic methodOrdered By: Power Borges on 01-24-2025 Lower GI hemoglobin IA Ql (Stl) Positive Abnormal [facility] Type AND Screenon 01-24-2025 Ab SCREEN GEL Negative Normal [facility] Comment on above: Order Comment: 155 Performed By: #### L 500.4100, L501.5200, L500.4050 #### [facility] [address] [place], [address] Bilirubin directOrdered By: Dianna Guido on 11-08-2024 Bilirubin.direct [Mass/Vol] 0.50 mg/dL High 0.00-0.[address] [facility] Bilirubin, totalOrdered By: Dianna Guido on 11-08-2024 Bilirubin [Mass/Vol] 1.21 mg/dL 0.00-1.30 [facility] - Chemistry and C hemistry - challengeOrdered By: Dianna Guido on 11-08-2024 AST [Catalytic activity/Vol] 22 U/L <[address] [facility] Liver Profileon 11-08-2024 Albumin [Mass/Vol] 3.3 g/dL Low 3.4-4.8 [facility] Comment on above: Order Comment: 155 Performed By: #### L 500.3400 #### [facility] [address] [place], [address] ALK PHOS 95 U/L Normal 35-[address] [facility] Comment on above: Order Comment: 155 Performed By: #### L 500.3400 #### [facility] [address] [place], [address] ALT [Catalytic activity/Vol] 8 U/L Normal <=[address] [facility] Comment on above: Order Comment: 155 Performed By: #### L 500.3400 #### [facility] [address] [place], [address] AST [Catalytic activity/Vol] 22 U/L Normal <=[address] [facility] Comment on above: Order Comment: 155 Performed By: #### L 500.3400 #### [facility] [address] [place], [address] Bilirubin [Mass/Vol] 1.21 mg/dL Normal 0.00-1.30 [facility] Comment on above: Order Comment: 155 Performed By: #### L 500.3400 #### [facility] [address] [place], [address] Bilirubin.direct [Mass/Vol] 0.50 mg/dL High 0.00-0.[address] [facility] Comment on above: Order Comment: 155 Performed By: #### L 500.3400 #### [facility] [address] [place], [address] Globulin (S) [Mass/Vol] 2.2 g/dL Normal 2.2-4.[address] [facility] Comment on above: Order Comment: 155 Performed By: #### L 500.3400 #### [facility] [address] [place], [address] T PROT 5.5 g/dL Low 5.9-8.[address] [facility] Comment on above: Order Comment: 155 Performed By: #### L 500.3400 #### [facility] [address] [place], [address] Serum globulin measurementOr dered By: Dianna Guido on 11-08-2024 Globulin (S) [Mass/Vol] 2.2 g/dL 2.2-4.[address] [facility] Serum or plasma alanine rasheed otransferase (ALT) measurementOrdered By: Dianna Guido on 11-08-2024 ALT [Catalytic activity/Vol] 8 U/L <[address] [facility] Serum or plasma albumin slava urement (mass/volume)Ordered By: Dianna Guido on 11-08-2024 Albumin [Mass/Vol] 3.3 g/dL Low 3.4-4.8 [facility] Serum or plasma alkaline catalina sphatase measurementOrdered By: Dianna Guido on 11-08-2024 ALP [Catalytic activity/Vol] 95 U/L 35-[address] [facility] Total proteinOrdered By: Zita Guido on 11-08-2024 Protein [Mass/Vol] 5.5 g/dL Low 5.9-8.4 [facility] Anion gap in Serum or Plasma Ordered By: Dianna Guido on 10-04-2024 Anion gap [Moles/Vol] 10 mmol/L 5-15 [facility] BUN/creatinine ratioOrdered By: Dianna Guido on 10-04-2024 Urea nitrogen/Creatinine [Mass ratio] 14.3 mg/mg 10-[address] [facility] Bilirubin, totalOrdered By: Dianna Guido on 10-04-2024 Bilirubin [Mass/Vol] 1.57 mg/dL High 0.00-1.30 [facility] CBC-Complete Blood Cnt No Di ffon 10-04-2024 Erythrocyte distribution width (RBC) [Ratio] 14.5 % Normal 11.6-14.[address] [facility] Comment on above: Order Comment: 155 Performed By: #### L 500.4050, L500.4100, L506.1001, L100.0500 #### [facility] [address] [place], [address] Hematocrit (Bld) [Volume fraction] 37.0 % Normal 37-[address] [facility] Comment on above: Order Comment: 155 Performed By: #### L 500.4050, L500.4100, L506.1001, L100.0500 #### [facility] [address] [place], [address] Hemoglobin (Bld) [Mass/Vol] 11.2 g/dL Low 12.0-15.[address] [facility] Comment on above: Order Comment: 155 Performed By: #### L 500.4050, L500.4100, L506.1001, L100.0500 #### [facility] [address] [place], [address] MCH (RBC) [Entitic mass] 24.6 pg Low 27.0-32.[address] [facility] Comment on above: Order Comment: 155 Performed By: #### L 500.4050, L500.4100, L506.1001, L100.0500 #### [facility] [address] [place], [address] MCHC (RBC) [Mass/Vol] 30.3 g/dL Low 32-36 [facility] Comment on above: Order Comment: 155 Performed By: #### L 500.4050, L500.4100, L506.1001, L100.0500 #### [facility] [address] [place], [address] MCV (RBC) [Entitic vol] 81.1 fL Normal 81-[address] [facility] Comment on above: Order Comment: 155 Performed By: #### L 500.4050, L500.4100, L506.1001, L100.0500 #### [facility] [address] [place], [address] Platelet mean volume (Bld) [Entitic vol] 10.8 fL Normal 6.2-12.[address] [facility] Comment on above: Order Comment: 155 Performed By: #### L 500.4050, L500.4100, L506.1001, L100.0500 #### [facility] [address] [place], [address] Platelets (Bld) [#/Vol] 333 10*3/uL Normal 150-[address] [facility] Comment on above: Order Comment: 155 Performed By: #### L 500.4050, L500.4100, L506.1001, L100.0500 #### [facility] [address] [place], [address] RBC (Bld) [#/Vol] 4.56 10*6/uL Normal 4.2-5.4 [facility] Comment on above: Order Comment: 155 Performed By: #### L 500.4050, L500.4100, L506.1001, L100.0500 #### [facility] [address] [place], [address] RDW SD 42.3 fl Normal 35.1-43.[address] [facility] Comment on above: Order Comment: 155 Performed By: #### L 500.4050, L500.4100, L506.1001, L100.0500 #### [facility] [address] [place], [address] WBC (Bld) [#/Vol] 6.5 10*3/uL Normal 4.4-11.0 [facility] Comment on above: Order Comment: 155 Performed By: #### L 500.4050, L500.4100, L506.1001, L100.0500 #### [facility] [address] [place], [address] Calculated very low density lipoprotein (VLDL) cholesterol measurementOrdered By: Dianna Guido on 10-04-2024 Calculated very low density lipoprotein (VLDL) cholesterol measurement 16 mg/dL 5-[address] [facility] Carbon dioxide, total [Moles /volume] in Central venous bloodOrdered By: Dianna Guido on 10-04-2024 CO2 [Moles/Vol] 28.5 mmol/L 21.0-32.[address] [facility] Chloride assayOrdered By: Gonsalo Guido on 10-04-2024 Chloride [Moles/Vol] 105 mmol/L 98-108 [facility] Comprehensive Metabolic Prof ilon 10-04-2024 Chloride [Moles/Vol] 105 mmol/L Normal 98-108 [facility] Comment on above: Order Comment: 155 Performed By: #### L 500.4050, L500.4100, L506.1001, L100.0500 #### [facility] [address] [place], [address] CO2 [Moles/Vol] 28.5 mmol/L Normal 21.0-32.[address] [facility] Comment on above: Order Comment: 155 Performed By: #### L 500.4050, L500.4100, L506.1001, L100.0500 #### [facility] [address] [place], [address] GAP 10 Normal 5-[address] [facility] Comment on above: Order Comment: 155 Performed By: #### L 500.4050, L500.4100, L506.1001, L100.0500 #### [facility] [address] [place], [address] Potassium [Moles/Vol] 3.8 mmol/L Normal 3.3-5.1 [facility] Comment on above: Order Comment: 155 Performed By: #### L 500.4050, L500.4100, L506.1001, L100.0500 #### [facility] [address] [place], [address] Sodium [Moles/Vol] 143 mmol/L Normal 133-145 [facility] Comment on above: Order Comment: 155 Performed By: #### L 500.4050, L500.4100, L506.1001, L100.0500 #### [facility] [address] [place], [address] Albumin [Mass/Vol] 3.9 g/dL Normal 3.4-4.8 [facility] Comment on above: Order Comment: 155 Performed By: #### L 500.4050, L500.4100, L506.1001, L100.0500 #### [facility] [address] [place], [address] Albumin/Globulin [Mass ratio] 1.4 {ratio} Normal 0.9-2.[address] [facility] Comment on above: Order Comment: 155 Performed By: #### L 500.4050, L500.4100, L506.1001, L100.0500 #### [facility] [address] [place], [address] ALK PHOS 112 U/L High 35-[address] [facility] Comment on above: Order Comment: 155 Performed By: #### L 500.4050, L500.4100, L506.1001, L100.0500 #### [facility] [address] [place], [address] ALT [Catalytic activity/Vol] 9 U/L Normal <=[address] [facility] Comment on above: Order Comment: 155 Performed By: #### L 500.4050, L500.4100, L506.1001, L100.0500 #### [facility] [address] [place], [address] AST [Catalytic activity/Vol] 26 U/L Normal <=[address] [facility] Comment on above: Order Comment: 155 Performed By: #### L 500.4050, L500.4100, L506.1001, L100.0500 #### [facility] [address] [place], [address] Bilirubin [Mass/Vol] 1.57 mg/dL High 0.00-1.30 [facility] Comment on above: Order Comment: 155 Performed By: #### L 500.4050, L500.4100, L506.1001, L100.0500 #### [facility] [address] [place], [address] BUN/CRE 14.3 RATIO Normal 10-[address] [facility] Comment on above: Order Comment: 155 Performed By: #### L 500.4050, L500.4100, L506.1001, L100.0500 #### [facility] [address] [place], [address] Calcium [Mass/Vol] 9.0 mg/dL Normal 7.6-11.0 [facility] Comment on above: Order Comment: 155 Performed By: #### L 500.4050, L500.4100, L506.1001, L100.0500 #### [facility] [address] [place], [address] Creatinine [Mass/Vol] 0.75 mg/dL Normal 0.70-1.20 [facility] Comment on above: Order Comment: 155 Performed By: #### L 500.4050, L500.4100, L506.1001, L100.0500 #### [facility] [address] [place], [address] GFR/1.73 sq M.predicted among non-blacks MDRD (S/P/Bld) [Vol rate/Area] 79 mL/min/{1.73_m2} Normal >[address] [facility] Comment on above: Order Comment: 155 Result Comment: mL/m in/1.73m2 CKD-EPI Creatinine Equation (2020) Performed By: #### L 500.4050, L500.4100, L506.1001, L100.0500 #### [facility] [address] [place], [address] Globulin (S) [Mass/Vol] 2.8 g/dL Normal 2.2-4.[address] [facility] Comment on above: Order Comment: 155 Performed By: #### L 500.4050, L500.4100, L506.1001, L100.0500 #### [facility] [address] [place], [address] Glucose [Mass/Vol] 93 mg/dL Normal 70-99 [facility] Comment on above: Order Comment: 155 Performed By: #### L 500.4050, L500.4100, L506.1001, L100.0500 #### [facility] [address] [place], [address] T PROT 6.7 g/dL Normal 5.9-8.[address] [facility] Comment on above: Order Comment: 155 Performed By: #### L 500.4050, L500.4100, L506.1001, L100.0500 #### [facility] [address] [place], [address] Urea nitrogen [Mass/Vol] 11 mg/dL Normal 4-[address] [facility] Comment on above: Order Comment: 155 Performed By: #### L 500.4050, L500.4100, L506.1001, L100.0500 #### [facility] [address] [place], [address] Erythrocyte distribution wid th ratioOrdered By: Dianna Guido on 10-04-2024 Erythrocyte distribution width (RBC) [Ratio] 14.5 % 11.6-14.[address] [facility] Erythrocyte distribution wid th standard deviationOrdered By: Dianna Guido on 10-04-2024 Erythrocyte distribution width (RBC) [Ratio] 42.3 fl 35.1-43.[address] [facility] Glomerular filtration rate ( GFR) estimation/1.73 sq m using serum, plasma, or whole bOrdered By: Dianna Guido on 10-04-2024 GFR/1.73 sq M.predicted among non-blacks MDRD (S/P/Bld) [Vol rate/Area] 79 mL/min/{1.73_m2} >[address] [facility] Comment on above: mL/min/1.73m2 CKD-EP I Creatinine Equation (2020) Hematocrit Auto (Bld) [Volum e fraction]Ordered By: Dianna Guido on 10-04-2024 Hematocrit (Bld) [Volume fraction] 37.0 % 37-[address] [facility] Hemoglobin measurementOrdere d By: Dianna Giudo on 10-04-2024 Hemoglobin (Bld) [Mass/Vol] 11.2 g/dL Low 12.0-15.[address] [facility] LDL calc ser/plasOrdered By: Dianna Guido on 10-04-2024 Cholesterol in LDL [Mass/Vol] 65 mg/dL [facility] Comment on above: Xgjpbybiix=197-144 m g/dL & Higher Icgt=844 mg/dL or greater Laboratory - Chemistry and C hemistry - challengeOrdered By: Dianna Guido on 10-04-2024 AST [Catalytic activity/Vol] 26 U/L <[address] [facility] Lipid Profileon 10-04-2024 CHOL:HDL 2.[address] [facility] Comment on above: Order Comment: 155 Performed By: #### L 500.4050, L500.4100, L506.1001, L100.0500 #### [facility] [address] [place], [address] Cholesterol in HDL [Mass/Vol] 49 mg/dL Normal [facility] Comment on above: Order Comment: 155 Result Comment: Karis onal Cholesterol Education Program (NCEP) guidelines: <40 mg/dL: Low HDL-cholesterol (major risk factor for CHD) >= 60 mg/dL: High HDL-cholesterol (negative risk factor for CHD) HDL-cholesterol is affected by a number of factors, e.g. smoking, exercise, hormones, sex and age. Performed By: #### L 500.4050, L500.4100, L506.1001, L100.0500 #### [facility] [address] [place], [address] Cholesterol in LDL [Mass/Vol] 65 mg/dL Normal [facility] Comment on above: Order Comment: 155 Result Comment: Bord nirjxm=803-519 mg/dL Higher Ydgr=265 mg/dL or greater Performed By: #### L 500.4050, L500.4100, L506.1001, L100.0500 #### [facility] [address] [place], [address] Cholesterol in VLDL [Mass/Vol] 16 mg/dL Normal 5-[address] [facility] Comment on above: Order Comment: 155 Performed By: #### L 500.4050, L500.4100, L506.1001, L100.0500 #### [facility] [address] [place], [address] Triglyceride [Mass/Vol] 81 mg/dL Normal [facility] Comment on above: Order Comment: 155 Result Comment: The drugs N-Acetylcysteine and Metamizole may falsely depress this assay. Normal range: <150 mg/dL Borderline High: 150-199 mg/dL High: 200-499 mg/dL Very High: >500 mg/dL Performed By: #### L 500.4050, L500.4100, L506.1001, L100.0500 #### [facility] [address] [place], [address] Cholesterol [Mass/Vol] 130 mg/dL Normal <=200 [facility] Comment on above: Order Comment: 155 Result Comment: Chol esterol level, Desirable <200 mg/dL Borderline high cholesterol 200-239 mg/dL High cholesterol >=240 mg/dL Recommendations of the NCEP Adult Treatment Panel for the following risk-cutoff thresholds for the [place] population. Performed By: #### L 500.4050, L500.4100, L506.1001, L100.0500 #### [facility] [address] [place], [address] MCV (mean corpuscular volume ) determinationOrdered By: Dianna Guido on 10-04-2024 MCV (RBC) [Entitic vol] 81.1 fL 81-[address] [facility] Mean corpuscular hemoglobin (MCH) determinationOrdered By: Dianna Guido on 10-04-2024 MCH (RBC) [Entitic mass] 24.6 pg Low 27.0-32.[address] [facility] Mean corpuscular hemoglobin concentration (MCHC) determinationOrdered By: Dianna Guido on 10-04-2024 MCHC (RBC) [Mass/Vol] 30.3 g/dL Low 32-36 [facility] Mean platelet volume determi nationOrdered By: Dianna Guido on 10-04-2024 Platelet mean volume (Bld) [Entitic vol] 10.8 fL 6.2-12.[address] [facility] Platelet countOrdered By: Gonsalo Guido on 10-04-2024 Platelets (Bld) [#/Vol] 333 10*3/uL 150-[address] [facility] Potassium measurement (mass/ volume)Ordered By: Dianna Guido on 10-04-2024 Potassium (Unsp spec) [Mass/Vol] 3.8 mmol/L 3.3-5.[address] [facility] RBC Auto (Bld) [#/Vol]Ordere d By: Dianna Guido on 10-04-2024 RBC (Bld) [#/Vol] 4.56 10*6/uL 4.2-5.4 [facility] Screening total cholesterol/ high density lipoprotein (HDL) cholesterol ratioOrdered By: Dianna Guido on 10-04-2024 Cholesterol.total/Chol esterol in HDL [Mass ratio] 2.64 {ratio} [facility] Serum creatinine measurement (mass/volume)Ordered By: Dianna Guido on 10-04-2024 Creatinine [Mass/Vol] 0.75 mg/dL 0.70-1.20 [facility] Serum globulin measurementOr dered By: Dianna Guido on 10-04-2024 Globulin (S) [Mass/Vol] 2.8 g/dL 2.2-4.[address] [facility] Serum glucose measurement (m ass/volume)Ordered By: Dianna Guido on 10-04-2024 Glucose [Mass/Vol] 93 mg/dL 70-99 [facility] Serum or plasma alanine rasheed otransferase (ALT) measurementOrdered By: Dianna Guido on 10-04-2024 ALT [Catalytic activity/Vol] 9 U/L <[address] [facility] Serum or plasma albumin slava urement (mass/volume)Ordered By: Dianna Guido on 10-04-2024 Albumin [Mass/Vol] 3.9 g/dL 3.4-4.8 [facility] Serum or plasma albumin/glob ulin mass ratioOrdered By: Dianna Guido on 10-04-2024 Albumin/Globulin [Mass ratio] 1.4 {ratio} 0.9-2.[address] [facility] Serum or plasma alkaline catalina sphatase measurementOrdered By: Dianna Guido on 10-04-2024 ALP [Catalytic activity/Vol] 112 U/L High 35-[address] [facility] Serum or plasma calcium slava urement (mass/volume)Ordered By: Dianna Guido on 10-04-2024 Calcium [Mass/Vol] 9.0 mg/dL 7.6-11.0 [facility] Serum or plasma cholesterol in HDL measurement (mass/volume)Ordered By: Dianna Guido on 10-04-2024 Cholesterol in HDL [Mass/Vol] 49 mg/dL >[address] [facility] Comment on above: National Cholesterol Education Program (NCEP) guidelines:<40 mg/dL: Low HDL-cholesterol (major risk factor for CHD)>= 60 mg/dL: High HDL-cholesterol (negative risk factor for CHD)HDL-cholesterol is affected by a number of factors, e.g. smoking, exercise, hormones, sex and age. Serum or plasma cholesterol measurement (mass/volume)Ordered By: Dianna Guido on 10-04-2024 Cholesterol [Mass/Vol] 130 mg/dL <201 [facility] Comment on above: Cholesterol level, D esirable <200 mg/dLBorderline high cholesterol 200-239 mg/dLHigh cholesterol >=240 mg/dLRecommendations of the NCEP Adult Treatment Panel for the following risk-cutoff thresholds for the [place] population. Serum or plasma urea nitroge n measurement (mass/volume)Ordered By: Dianna Guido on 10-04-2024 Urea nitrogen [Mass/Vol] 11 mg/dL 4-[address] [facility] Sodium levelOrdered By: Maite Guido on 10-04-2024 Sodium [Moles/Vol] 143 mmol/L 133-145 [facility] Total proteinOrdered By: Zita Guido on 10-04-2024 Protein [Mass/Vol] 6.7 g/dL 5.9-8.4 [facility] Triglycerides measurementOrd ered By: Dianna Guido on 10-04-2024 Triglyceride [Mass/Vol] 81 mg/dL <[address] [facility] Comment on above: The drugs N-Acetylcy steine and Metamizole may falsely depress this assay. Normal range: <150 mg/dLBorderline High: 150-199 mg/dLHigh: 200-499 mg/dLVery High: >500 mg/dL Vitamin D,25 Hydroxyon 10-04 Vitamin D 25-OH 42.8 ng/mL Normal 30-[address] [facility] Comment on above: Order Comment: 155 Result Comment: Alessandra min D Status Deficiency: <20 ng/mL (50nmol/L) Insufficiency: 20-30 ng/mL (50-75 nmol/L) Sufficiency: 30-100 ng/mL (75-250 nmol/L) Toxicity: >100 ng/mL (>250 nmol/L) Performed By: #### L 500.4050, L500.4100, L506.1001, L100.0500 #### [facility] [address] [place], [address] White blood cell (WBC) count Ordered By: Dianna Guido on 10-04-2024 WBC (Bld) [#/Vol] 6.5 10*3/uL 4.4-11.0 [facility] Comprehensive Metabolic Prof ilon 05-31-2024 Albumin [Mass/Vol] 3.2 g/dL Normal 3.2-5.0 [facility] Comment on above: Order Comment: 155 Performed By: #### L 500.4100, L501.5200, L500.4050 #### [facility] [address] [place], [address] Albumin/Globulin [Mass ratio] 0.9 {ratio} Normal 0.9-2.[address] [facility] Comment on above: Order Comment: 155 Performed By: #### L 500.4100, L501.5200, L500.4050 #### [facility] [address] [place], [address] ALK P 115 U/L Normal 45-[address] [facility] Comment on above: Order Comment: 155 Performed By: #### L 500.4100, L501.5200, L500.4050 #### [facility] [address] [place], [address] ALT [Catalytic activity/Vol] 17 U/L Normal 13-[address] [facility] Comment on above: Order Comment: 155 Performed By: #### L 500.4100, L501.5200, L500.4050 #### [facility] [address] [place], [address] AST [Catalytic activity/Vol] 23 U/L Normal 15-[address] [facility] Comment on above: Order Comment: 155 Performed By: #### L 500.4100, L501.5200, L500.4050 #### [facility] [address] [place], [address] Bilirubin [Mass/Vol] 1.60 mg/dL High 0.20-1.00 [facility] Comment on above: Order Comment: 155 Result Comment: For patients on eltrombopag therapy, use of Dimension [place] TBIL is not recommended. Performed By: #### L 500.4100, L501.5200, L500.4050 #### [facility] [address] [place], [address] BUN/CRE 14.9 RATIO Normal 10-[address] [facility] Comment on above: Order Comment: 155 Performed By: #### L 500.4100, L501.5200, L500.4050 #### [facility] [address] [place], [address] CA,Total 9.1 mg/dL Normal 8.5-10.[address] [facility] Comment on above: Order Comment: 155 Performed By: #### L 500.4100, L501.5200, L500.4050 #### [facility] [address] [place], [address] Chloride [Moles/Vol] 109 mmol/L High 98-107 [facility] Comment on above: Order Comment: 155 Performed By: #### L 500.4100, L501.5200, L500.4050 #### [facility] [address] [place], [address] CO2 [Moles/Vol] 31.0 mmol/L Normal 21.0-32.[address] [facility] Comment on above: Order Comment: 155 Performed By: #### L 500.4100, L501.5200, L500.4050 #### [facility] [address] [place], [address] Creatinine [Mass/Vol] 0.74 mg/dL Normal 0.55-1.02 [facility] Comment on above: Order Comment: 155 Result Comment: The validity of the calculated GFR GFRAA in patients over 70 years has not been determined. Clinical correlation is essential. Performed By: #### L 500.4100, L501.5200, L500.4050 #### [facility] [address] [place], [address] EST GFR - AA 97 mL/min Normal >[address] [facility] Comment on above: Order Comment: 155 Result Comment: Afri can [place] GFR Calc Performed By: #### L 500.4100, L501.5200, L500.4050 #### [facility] [address] [place], [address] GAP 4 Low 5-[address] [facility] Comment on above: Order Comment: 155 Performed By: #### L 500.4100, L501.5200, L500.4050 #### [facility] [address] [place], [address] GFR/1.73 sq M.predicted among non-blacks MDRD (S/P/Bld) [Vol rate/Area] 80 mL/min/{1.73_m2} Normal >[address] [facility] Comment on above: Order Comment: 155 Result Comment: Non- GFR Calc Performed By: #### L 500.4100, L501.5200, L500.4050 #### [facility] [address] [place], [address] Globulin (S) [Mass/Vol] 3.4 g/dL Normal 2.2-4.[address] [facility] Comment on above: Order Comment: 155 Performed By: #### L 500.4100, L501.5200, L500.4050 #### [facility] [address] [place], [address] Glucose [Mass/Vol] 97 mg/dL Normal 74-106 [facility] Comment on above: Order Comment: 155 Performed By: #### L 500.4100, L501.5200, L500.4050 #### [facility] [address] [place], [address] Potassium [Moles/Vol] 3.9 mmol/L Normal 3.5-5.1 [facility] Comment on above: Order Comment: 155 Performed By: #### L 500.4100, L501.5200, L500.4050 #### [facility] [address] [place], [address] Sodium [Moles/Vol] 143 mmol/L Normal 136-145 [facility] Comment on above: Order Comment: 155 Performed By: #### L 500.4100, L501.5200, L500.4050 #### [facility] [address] [place], [address] T PROT 6.6 g/dL Normal 6.4-8.[address] [facility] Comment on above: Order Comment: 155 Performed By: #### L 500.4100, L501.5200, L500.4050 #### [facility] [address] [place], [address] Urea nitrogen [Mass/Vol] 11 mg/dL Normal 7-[address] [facility] Comment on above: Order Comment: 155 Performed By: #### L 500.4100, L501.5200, L500.4050 #### [facility] [address] [place], [address] Lipid Profileon 05-31-2024 Cholesterol [Mass/Vol] 128 mg/dL Normal 200 [facility] Comment on above: Order Comment: 155 Result Comment: <200 mg/dL Desirable 200-240 mg/dL Borderline >240 mg/dL High Risk Performed By: #### L 500.4100, L501.5200, L500.4050 #### [facility] [address] [place], [address] Cholesterol in HDL [Mass/Vol] 57 mg/dL Normal [facility] Comment on above: Order Comment: 155 Result Comment: The drugs N-Acetylcysteine and Metamizole may falsely depress this assay. Reference Range HDL <40 mg/dL Low HDL Cholesterol HDL >or= 60 mg/dL High HDL Cholesterol Performed By: #### L 500.4100, L501.5200, L500.4050 #### [facility] [address] [place], [address] Cholesterol in LDL [Mass/Vol] 52 mg/dL Normal 0-[address] [facility] Comment on above: Order Comment: 155 Performed By: #### L 500.4100, L501.5200, L500.4050 #### [facility] [address] [place], [address] Cholesterol in VLDL [Mass/Vol] 19 mg/dL Normal 5-[address] [facility] Comment on above: Order Comment: 155 Performed By: #### L 500.4100, L501.5200, L500.4050 #### [facility] [address] [place], [address] Triglyceride [Mass/Vol] 97 mg/dL Normal [facility] Comment on above: Order Comment: 155 Result Comment: The drugs N-Acetylcysteine and Metamizole may falsely depress this assay. Serum Triglycerides Reference Interval Normal <150 mg/dL Borderline high 150 - 199 mg/dL High 200 - 499 mg/dL Very High > or = 500 mg/dL Performed By: #### L 500.4100, L501.5200, L500.4050 #### [facility] [address] [place], [address] Magnesiumon 05-31-2024 Magnesium [Mass/Vol] 2.4 mg/dL Normal 1.6-2.6 [facility] Comment on above: Order Comment: 155 Performed By: #### L 500.4100, L501.5200, L500.4050 #### [facility] [address] [place], [address] Anaerobic cultureOrdered By: Andie Bernal on 05-22-2023 Bacteria identified Anaer cx Nom (Unsp spec) No anaerobic bacteria isolated. [facility] Bacteria identified Cx Nom ( Wound)Ordered By: Andie Bernal on 05-22-2023 Wound Culture Enterococcus faecalis [facility] Wound Culture Staphylococcus lugdunensis [facility] Gram stain for investigation of transfusion reactionOrdered By: Andie Bernal on 05-22-2023 Microscopic observation Gram stain Nom (Unsp spec) [facility] Absolute lymphocyte countOrd ered By: Dianna Guido on 05-19-2023 Lymphocytes Auto (Unsp spec) [#/Vol] 2.12 10*3/uL 0.83-4.[address] [facility] Basophil percentageOrdered B y: Dianna Guido on 05-19-2023 Basophils/100 WBC (Bld) 1.0 % 0-[address] [facility] Eosinophils/100 WBC (Bld) 3.2 % 0-[address] [facility] Neutrophils (Bld) [#/Vol] 3.6 10*3/uL 2.0-7.[address] [facility] Neutrophils/100 WBC (Bld) 52.8 % 47-[address] [facility] WBC (Bld) [#/Vol] 6.9 10*3/uL 4.4-11.0 [facility] Blood erythrocytes count (nu mber/volume)Ordered By: Dianna Guido on 05-19-2023 RBC (Bld) [#/Vol] 5.10 10*6/uL 4.2-5.4 [facility] Blood hemoglobin measurement (mass/volume)Ordered By: Dianna Guido on 05-19-2023 Hemoglobin (Bld) [Mass/Vol] 14.0 g/dL 12.0-15.[address] [facility] Blood lymphocytes/100 leukoc ytesOrdered By: Dianna Guido on 05-19-2023 Lymphocytes/100 WBC (Bld) 30.9 % 19-[address] [facility] Blood monocytes/100 leukocyt esOrdered By: Diannahunter Guido on 05-19-2023 Monocytes/100 WBC (Bld) 11.8 % 0-[address] [facility] Blood platelet mean volumeOr dered By: Dianna Guido on 05-19-2023 Platelet mean volume (Bld) [Entitic vol] 10.6 fL 6.2-12.[address] [facility] Determination of erythrocyte mean corpuscular volume (MCV)Ordered By: Dianna Guido on 05-19-2023 MCV (RBC) [Entitic vol] 90.8 fL 81-[address] [facility] Hematocrit Auto (Bld) [Volum e fraction]Ordered By: Dianna Guido on 05-19-2023 Hematocrit (Bld) [Volume fraction] 46.3 % 37-[address] [facility] - Hematology and Cell countsOrdered By: Dianna Guido on 05-19-2023 Erythrocyte distribution width (RBC) [Entitic vol] 46.1 fL 35.1-43.[address] [facility] Erythrocyte distribution width (RBC) [Ratio] 13.7 % 11.6-14.[address] [facility] Immature granulocytes/100 WBC (Bld) 0.300 % 0.0-0.[address] [facility] Comment on above: IG% - Immature Granu locytes (promyelocytes, myelocytes and metamyelocytes) > 1% indicates that a LEFT SHIFT is Present. MCH (RBC) [Entitic mass] 27.5 pg 27.0-32.[address] [facility] Nucleated RBC/100 WBC (Bld) [Ratio] 0 % 0-[address] [facility] MCHC Auto (RBC) [Mass/Vol]Or dered By: Dianna Guido on 05-19-2023 MCHC (RBC) [Mass/Vol] 30.2 g/dL 32-36 [facility] Platelets bldOrdered By: Zita Guido on 05-19-2023 Platelets (Bld) [#/Vol] 285 10*3/uL 150-[address] [facility] Bacteria identified Cx Nom ( Wound)Ordered By: Dianna Guido on 05-16-2023 Wound Culture Presumptive E. coli [facility] Gram stain for investigation of transfusion reactionOrdered By: Dianna Guido on 05-16-2023 Microscopic observation Gram stain Nom (Unsp spec) [facility] Basophil percentageOrdered B y: Dianna Guido on 05-14-2023 WBC (Bld) [#/Vol] 6.8 10*3/uL 4.4-11.0 [facility] Blood erythrocytes count (nu mber/volume)Ordered By: Dianna Guido on 05-14-2023 RBC (Bld) [#/Vol] 5.19 10*6/uL 4.2-5.4 [facility] Blood hemoglobin measurement (mass/volume)Ordered By: Dianna Guido on 05-14-2023 Hemoglobin (Bld) [Mass/Vol] 14.2 g/dL 12.0-15.[address] [facility] Blood platelet mean volumeOr dered By: Dianna Guido on 05-14-2023 Platelet mean volume (Bld) [Entitic vol] 10.4 fL 6.2-12.[address] [facility] Determination of erythrocyte mean corpuscular volume (MCV)Ordered By: Dianna Guido on 05-14-2023 MCV (RBC) [Entitic vol] 88.8 fL 81-[address] [facility] Hematocrit Auto (Bld) [Volum e fraction]Ordered By: Dianna Guido on 05-14-2023 Hematocrit (Bld) [Volume fraction] 46.1 % 37-[address] [facility] - Hematology and Cell countsOrdered By: Dianna Guido on 12-06-2023 Erythrocyte distribution width (RBC) [Entitic vol] 44.3 fL 35.1-43.[address] [facility] Erythrocyte distribution width (RBC) [Ratio] 13.6 % 11.6-14.[address] [facility] MCH (RBC) [Entitic mass] 27.4 pg 27.0-32.[address] [facility] MCHC Auto (RBC) [Mass/Vol]Or dered By: Dianna Guido on 05-14-2023 MCHC (RBC) [Mass/Vol] 30.8 g/dL 32-36 [facility] Platelets bldOrdered By: Zita Guido on 05-14-2023 Platelets (Bld) [#/Vol] 289 10*3/uL 150-[address] [facility] Absolute lymphocyte countOrd ered By: Dianna Guido on 04-28-2023 Lymphocytes Auto (Unsp spec) [#/Vol] 1.69 10*3/uL 0.83-4.[address] [facility] Basophil percentageOrdered B y: Dianna Guido on 04-28-2023 Basophils/100 WBC (Bld) 0.9 % 0-[address] [facility] Chloride [Moles/Vol] 105 mmol/L 98-107 [facility] Eosinophils/100 WBC (Bld) 3.1 % 0-[address] [facility] Glucose [Mass/Vol] 93 mg/dL 74-106 [facility] Neutrophils (Bld) [#/Vol] 3.6 10*3/uL 2.0-7.[address] [facility] Neutrophils/100 WBC (Bld) 56.0 % 47-[address] [facility] Potassium [Moles/Vol] 3.6 mmol/L 3.5-5.1 [facility] Sodium [Moles/Vol] 143 mmol/L 136-145 [facility] WBC (Bld) [#/Vol] 6.4 10*3/uL 4.4-11.0 [facility] Blood erythrocytes count (nu mber/volume)Ordered By: Dianna Guido on 04-28-2023 RBC (Bld) [#/Vol] 4.76 10*6/uL 4.2-5.4 [facility] Blood hemoglobin measurement (mass/volume)Ordered By: Dianna Guido on 04-28-2023 Hemoglobin (Bld) [Mass/Vol] 13.0 g/dL 12.0-15.[address] [facility] Blood lymphocytes/100 leukoc ytesOrdered By: Dianna Guido on 04-28-2023 Lymphocytes/100 WBC (Bld) 26.3 % 19-[address] [facility] Blood monocytes/100 leukocyt esOrdered By: Dianna Guido on 04-28-2023 Monocytes/100 WBC (Bld) 13.4 % 0-[address] [facility] Blood platelet mean volumeOr dered By: Dianna Guido on 04-28-2023 Platelet mean volume (Bld) [Entitic vol] 10.6 fL 6.2-12.[address] [facility] Determination of erythrocyte mean corpuscular volume (MCV)Ordered By: Dianna Guido on 04-28-2023 MCV (RBC) [Entitic vol] 91.0 fL 81-[address] [facility] Hematocrit Auto (Bld) [Volum e fraction]Ordered By: Dianna Guido on 04-28-2023 Hematocrit (Bld) [Volume fraction] 43.3 % 37-[address] [facility] - Chemistry and C hemistry - challengeOrdered By: Dianna Guido on 04-28-2023 CO2 [Moles/Vol] 34.0 mmol/L 21.0-32.[address] [facility] Magnesium [Mass/Vol] 2.3 mg/dL 1.6-2.6 [facility] Urea nitrogen/Creatinine [Mass ratio] 12.9 mg/mg 10-[address] [facility] - Hematology and Cell countsOrdered By: Dianna Guido on 04-28-2023 Erythrocyte distribution width (RBC) [Entitic vol] 45.0 fL 35.1-43.[address] [facility] Erythrocyte distribution width (RBC) [Ratio] 13.4 % 11.6-14.[address] [facility] Immature granulocytes/100 WBC (Bld) 0.300 % 0.0-0.[address] [facility] Comment on above: IG% - Immature Granu locytes (promyelocytes, myelocytes and metamyelocytes) > 1% indicates that a LEFT SHIFT is Present. MCH (RBC) [Entitic mass] 27.3 pg 27.0-32.[address] [facility] Nucleated RBC/100 WBC (Bld) [Ratio] 0 % 0-[address] [facility] MCHC Auto (RBC) [Mass/Vol]Or dered By: Dianna Guido on 04-28-2023 MCHC (RBC) [Mass/Vol] 30.0 g/dL 32-36 [facility] No Panel InformationOrdered By: Dianna Guido on 04-28-2023 Estimated GFR (MDRD) Amer 92 mL/min >[address] [facility] Comment on above: GFR Calc Estimated GFR (MDRD) Non-Af Amer 76 mL/min >[address] [facility] Comment on above: Non- GFR Calc Platelets bldOrdered By: Zita Guido on 04-28-2023 Platelets (Bld) [#/Vol] 253 10*3/uL 150-[address] [facility] Serum or plasma calcium slava urement (mass/volume)Ordered By: Dianna Guido on 04-28-2023 Calcium [Mass/Vol] 8.6 mg/dL 8.5-10.1 [facility] Serum or plasma creatinine m easurement (mass/volume)Ordered By: Dianna Guido on 04-28-2023 Creatinine [Mass/Vol] 0.78 mg/dL 0.55-1.02 [facility] Comment on above: The validity of the calculated GFR & GFRAA in patients over 70 years has not been determined. Clinical correlation is essential. Serum or plasma urea nitroge n measurement (mass/volume)Ordered By: Dianna Guido on 04-28-2023 Urea nitrogen [Mass/Vol] 10 mg/dL 7-[address] [facility] Thin prep Papanicolaou smear with manual screeningOrdered By: Dianna Guido on 04-28-2023 Thin prep Papanicolaou smear with manual screening 4 5-[address] [facility] Basophil percentageOrdered B y: Dianna Guido on 03-26-2023 Chloride [Moles/Vol] 104 mmol/L 98-107 [facility] Glucose [Mass/Vol] 98 mg/dL 74-106 [facility] Potassium [Moles/Vol] 3.9 mmol/L 3.5-5.1 [facility] Sodium [Moles/Vol] 140 mmol/L 136-145 [facility] Laboratory - Chemistry and C hemistry - challengeOrdered By: Dianna Guido on 03-26-2023 CO2 [Moles/Vol] 33.0 mmol/L 21.0-32.[address] [facility] Magnesium [Mass/Vol] 2.5 mg/dL 1.6-2.6 [facility] Urea nitrogen/Creatinine [Mass ratio] 15.0 mg/mg 10- [facility] No Panel InformationOrdered By: Dianna Guido on 03-26-2023 Estimated GFR (MDRD) Amer 98 mL/min >[address] [facility] Comment on above: GFR Calc Estimated GFR (MDRD) Non-Af Amer 81 mL/min >[address] [facility] Comment on above: Non- GFR Calc Serum or plasma calcium slava urement (mass/volume)Ordered By: Dianna Guido on 03-26-2023 Calcium [Mass/Vol] 9.1 mg/dL 8.5-10.1 [facility] Serum or plasma creatinine m easurement (mass/volume)Ordered By: Dianna Guido on 03-26-2023 Creatinine [Mass/Vol] 0.73 mg/dL 0.55-1.02 [facility] Comment on above: The validity of the calculated GFR & GFRAA in patients over 70 years has not been determined. Clinical correlation is essential. Serum or plasma urea nitroge n measurement (mass/volume)Ordered By: Dianna Guido on 03-26-2023 Urea nitrogen [Mass/Vol] 11 mg/dL - [facility] Thin prep Papanicolaou smear with manual screeningOrdered By: Dianna Guido on 03-26-2023 Thin prep Papanicolaou smear with manual screening 3 - [facility] Basophil percentageOrdered B y: Dianna Guido on 02-27-2023 Chloride [Moles/Vol] 105 mmol/L 98-107 [facility] Glucose [Mass/Vol] 103 mg/dL 74-106 [facility] Comment on above: Fasting Glucose resu lt from 100 to 125 mg/dL suggests IMPAIRED HOMEOSTASIS per A.D.A. criteria. Potassium [Moles/Vol] 3.8 mmol/L 3.5-5.1 [facility] Sodium [Moles/Vol] 140 mmol/L 136-145 [facility] Laboratory - Chemistry and C hemistry - challengeOrdered By: Dianna Guido on 02-27-2023 CO2 [Moles/Vol] 33.0 mmol/L 21.0-32.[address] [facility] Magnesium [Mass/Vol] 2.3 mg/dL 1.6-2.6 [facility] Urea nitrogen/Creatinine [Mass ratio] 13.1 mg/mg 10-[address] [facility] No Panel InformationOrdered By: Dianna Guido on 02-27-2023 Estimated GFR (MDRD) Amer 93 mL/min >[address] [facility] Comment on above: GFR Calc Estimated GFR (MDRD) Non-Af Amer 77 mL/min >[address] [facility] Comment on above: Non- GFR Calc Serum or plasma calcium slava urement (mass/volume)Ordered By: Dianna Guido on 02-27-2023 Calcium [Mass/Vol] 8.9 mg/dL 8.5-10.1 [facility] Serum or plasma creatinine m easurement (mass/volume)Ordered By: Dianna Guido on 02-27-2023 Creatinine [Mass/Vol] 0.76 mg/dL 0.55-1.02 [facility] Comment on above: The validity of the calculated GFR & GFRAA in patients over 70 years has not been determined. Clinical correlation is essential. Serum or plasma urea nitroge n measurement (mass/volume)Ordered By: Dianna Guido on 02-27-2023 Urea nitrogen [Mass/Vol] 10 mg/dL 7-[address] [facility] Thin prep Papanicolaou smear with manual screeningOrdered By: Dianna Guido on 02-27-2023 Thin prep Papanicolaou smear with manual screening 2 5-[address] [facility] Basophil percentageOrdered B y: Dianna Guido on 01-03-2023 Chloride [Moles/Vol] 104 mmol/L 98-107 [facility] Glucose [Mass/Vol] 107 mg/dL 74-106 [facility] Comment on above: Fasting Glucose resu lt from 100 to 125 mg/dL suggests IMPAIRED HOMEOSTASIS per A.D.A. criteria. Potassium [Moles/Vol] 3.8 mmol/L 3.5-5.1 [facility] Sodium [Moles/Vol] 141 mmol/L 136-145 [facility] - Chemistry and C hemistry - challengeOrdered By: Dianna Guido on 01-03-2023 CO2 [Moles/Vol] 31.0 mmol/L 21.0-32.[address] [facility] Urea nitrogen/Creatinine [Mass ratio] 10.0 mg/mg 10-[address] [facility] No Panel InformationOrdered By: Dianna Guido on 01-03-2023 Estimated GFR (MDRD) Amer 104 mL/min >[address] [facility] Comment on above: GFR Calc Estimated GFR (MDRD) Non-Af Amer 86 mL/min >[address] [facility] Comment on above: Non- GFR Calc Serum or plasma calcium slava urement (mass/volume)Ordered By: Dianna Guido on 01-03-2023 Calcium [Mass/Vol] 9.0 mg/dL 8.5-10.1 [facility] Serum or plasma creatinine m easurement (mass/volume)Ordered By: Dianna Guido on 01-03-2023 Creatinine [Mass/Vol] 0.70 mg/dL 0.55-1.02 [facility] Comment on above: The validity of the calculated GFR & GFRAA in patients over 70 years has not been determined. Clinical correlation is essential. Serum or plasma urea nitroge n measurement (mass/volume)Ordered By: Dianna Guido on 01-03-2023 Urea nitrogen [Mass/Vol] 7 mg/dL - [facility] Thin prep Papanicolaou smear with manual screeningOrdered By: Dianna Guido on 01-03-2023 Thin prep Papanicolaou smear with manual screening 6 5-[address] [facility] Absolute lymphocyte countOrd ered By: Dianna Guido on 12-24-2022 Lymphocytes Auto (Unsp spec) [#/Vol] 1.38 10*3/uL 0.83-4.[address] [facility] Basophil percentageOrdered B y: Dianna Guido on 12-24-2022 Basophils/100 WBC (Bld) 0.7 % 0-[address] [facility] Chloride [Moles/Vol] 103 mmol/L 98-107 [facility] Eosinophils/100 WBC (Bld) 2.5 % 0-[address] [facility] Glucose [Mass/Vol] 111 mg/dL 74-106 [facility] Comment on above: Fasting Glucose resu lt from 100 to 125 mg/dL suggests IMPAIRED HOMEOSTASIS per A.D.A. criteria. Neutrophils (Bld) [#/Vol] 3.7 10*3/uL 2.0-7.[address] [facility] Neutrophils/100 WBC (Bld) 62.1 % 47-[address] [facility] Potassium [Moles/Vol] 3.4 mmol/L 3.5-5.1 [facility] Sodium [Moles/Vol] 139 mmol/L 136-145 [facility] WBC (Bld) [#/Vol] 5.9 10*3/uL 4.4-11.0 [facility] Blood erythrocytes count (nu mber/volume)Ordered By: Dianna Guido on 12-24-2022 RBC (Bld) [#/Vol] 5.38 10*6/uL 4.2-5.4 [facility] Blood hemoglobin measurement (mass/volume)Ordered By: Dianna Guido on 12-24-2022 Hemoglobin (Bld) [Mass/Vol] 14.9 g/dL 12.0-15.[address] [facility] Blood lymphocytes/100 leukoc ytesOrdered By: Dianna Guido on 12-24-2022 Lymphocytes/100 WBC (Bld) 23.4 % 19-[address] [facility] Blood monocytes/100 leukocyt esOrdered By: Dianna Guido on 12-24-2022 Monocytes/100 WBC (Bld) 11.0 % 0-[address] [facility] Blood platelet mean volumeOr dered By: Dianna Guido on 12-24-2022 Platelet mean volume (Bld) [Entitic vol] 9.6 fL 6.2-12.[address] [facility] Determination of erythrocyte mean corpuscular volume (MCV)Ordered By: Dianna Guido on 12-24-2022 MCV (RBC) [Entitic vol] 90.0 fL 81-[address] [facility] Hematocrit Auto (Bld) [Volum e fraction]Ordered By: Dianna Guido on 12-24-2022 Hematocrit (Bld) [Volume fraction] 48.4 % 37-[address] [facility] Laboratory - Chemistry and C hemistry - challengeOrdered By: Dianna Guido on 12-24-2022 CO2 [Moles/Vol] 31.0 mmol/L 21.0-32.[address] [facility] Urea nitrogen/Creatinine [Mass ratio] 9.0 mg/mg 10-[address] [facility] Laboratory - Hematology and Cell countsOrdered By: Dianna Guido on 12-24-2022 Erythrocyte distribution width (RBC) [Entitic vol] 44.5 fL 35.1-43.[address] [facility] Erythrocyte distribution width (RBC) [Ratio] 13.5 % 11.6-14.[address] [facility] Immature granulocytes/100 WBC (Bld) 0.300 % 0.0-0.[address] [facility] Comment on above: IG% - Immature Granu locytes (promyelocytes, myelocytes and metamyelocytes) > 1% indicates that a LEFT SHIFT is Present. MCH (RBC) [Entitic mass] 27.7 pg 27.0-32.[address] [facility] Nucleated RBC/100 WBC (Bld) [Ratio] 0 % 0-[address] [facility] MCHC Auto (RBC) [Mass/Vol]Or dered By: Dianna Guido on 12-24-2022 MCHC (RBC) [Mass/Vol] 30.8 g/dL 32-36 [facility] No Panel InformationOrdered By: Dianna Guido on 12-24-2022 Estimated GFR (MDRD) Amer 109 mL/min >[address] [facility] Comment on above: GFR Calc Estimated GFR (MDRD) Non-Af Amer 90 mL/min >[address] [facility] Comment on above: Non- GFR Calc Platelets bldOrdered By: Zita Guido on 12-24-2022 Platelets (Bld) [#/Vol] 283 10*3/uL 150-[address] [facility] Serum or plasma calcium slava urement (mass/volume)Ordered By: Dianna Guido on 12-24-2022 Calcium [Mass/Vol] 8.8 mg/dL 8.5-10.1 [facility] Serum or plasma creatinine m easurement (mass/volume)Ordered By: Dianna Guido on 12-24-2022 Creatinine [Mass/Vol] 0.67 mg/dL 0.55-1.02 [facility] Comment on above: The validity of the calculated GFR & GFRAA in patients over 70 years has not been determined. Clinical correlation is essential. Serum or plasma urea nitroge n measurement (mass/volume)Ordered By: Dianna Guido on 12-24-2022 Urea nitrogen [Mass/Vol] 6 mg/dL 7-[address] [facility] Thin prep Papanicolaou smear with manual screeningOrdered By: Dianna Guido on 12-24-2022 Thin prep Papanicolaou smear with manual screening 5 5-[address] [facility] Absolute lymphocyte countOrd ered By: Dianna Guido on 11-05-2022 Lymphocytes Auto (Unsp spec) [#/Vol] 1.42 10*3/uL 0.83-4.[address] [facility] Basophil percentageOrdered B y: Dianna Guido on 11-05-2022 Basophils/100 WBC (Bld) 0.6 % 0-[address] [facility] Chloride [Moles/Vol] 106 mmol/L 98-107 [facility] Eosinophils/100 WBC (Bld) 4.1 % 0-[address] [facility] Glucose [Mass/Vol] 90 mg/dL 74-106 [facility] Neutrophils (Bld) [#/Vol] 3.0 10*3/uL 2.0-7.[address] [facility] Neutrophils/100 WBC (Bld) 55.5 % 47-[address] [facility] Potassium [Moles/Vol] 4.0 mmol/L 3.5-5.1 [facility] Sodium [Moles/Vol] 141 mmol/L 136-145 [facility] WBC (Bld) [#/Vol] 5.4 10*3/uL 4.4-11.0 [facility] Blood erythrocytes count (nu mber/volume)Ordered By: Dianna Guido on 11-05-2022 RBC (Bld) [#/Vol] 5.26 10*6/uL 4.2-5.4 [facility] Blood hemoglobin measurement (mass/volume)Ordered By: Dianna Guido on 11-05-2022 Hemoglobin (Bld) [Mass/Vol] 14.8 g/dL 12.0-15.[address] [facility] Blood lymphocytes/100 leukoc ytesOrdered By: Diannahunter Guido on 11-05-2022 Lymphocytes/100 WBC (Bld) 26.5 % 19-[address] [facility] Blood monocytes/100 leukocyt esOrdered By: Dianna Guido on 11-05-2022 Monocytes/100 WBC (Bld) 13.1 % 0-[address] [facility] Blood platelet mean volumeOr dered By: Dianna Guido on 11-05-2022 Platelet mean volume (Bld) [Entitic vol] 9.8 fL 6.2-12.[address] [facility] Determination of erythrocyte mean corpuscular volume (MCV)Ordered By: Dianna Guido on 11-05-2022 MCV (RBC) [Entitic vol] 89.9 fL 81-[address] [facility] Hematocrit Auto (Bld) [Volum e fraction]Ordered By: Dianna Guido on 11-05-2022 Hematocrit (Bld) [Volume fraction] 47.3 % 37-[address] [facility] Laboratory - Chemistry and C hemistry - challengeOrdered By: Dianna Guido on 11-05-2022 CO2 [Moles/Vol] 29.0 mmol/L 21.0-32.[address] [facility] Urea nitrogen/Creatinine [Mass ratio] 9.3 mg/mg 10-[address] [facility] Laboratory - Hematology and Cell countsOrdered By: Dianna Guido on 11-05-2022 Erythrocyte distribution width (RBC) [Entitic vol] 44.0 fL 35.1-43.[address] [facility] Erythrocyte distribution width (RBC) [Ratio] 13.4 % 11.6-14.[address] [facility] Immature granulocytes/100 WBC (Bld) 0.200 % 0.0-0.[address] [facility] Comment on above: IG% - Immature Granu locytes (promyelocytes, myelocytes and metamyelocytes) > 1% indicates that a LEFT SHIFT is Present. MCH (RBC) [Entitic mass] 28.1 pg 27.0-32.[address] [facility] Nucleated RBC/100 WBC (Bld) [Ratio] 0 % 0-[address] [facility] MCHC Auto (RBC) [Mass/Vol]Or dered By: Dianna Guido on 11-05-2022 MCHC (RBC) [Mass/Vol] 31.3 g/dL 32-36 [facility] No Panel InformationOrdered By: Dianna Guido on 11-05-2022 Estimated GFR (MDRD) Amer 113 mL/min >[address] [facility] Comment on above: GFR Calc Estimated GFR (MDRD) Non-Af Amer 94 mL/min >[address] [facility] Comment on above: Non- GFR Calc Platelets bldOrdered By: Zita Guido on 11-05-2022 Platelets (Bld) [#/Vol] 239 10*3/uL 150-[address] [facility] Serum or plasma calcium slava urement (mass/volume)Ordered By: Dianna Guido on 11-05-2022 Calcium [Mass/Vol] 9.0 mg/dL 8.5-10.1 [facility] Serum or plasma creatinine m easurement (mass/volume)Ordered By: Dianna Guido on 11-05-2022 Creatinine [Mass/Vol] 0.65 mg/dL 0.55-1.02 [facility] Comment on above: The validity of the calculated GFR & GFRAA in patients over 70 years has not been determined. Clinical correlation is essential. Serum or plasma urea nitroge n measurement (mass/volume)Ordered By: Dianna Guido on 11-05-2022 Urea nitrogen [Mass/Vol] 6 mg/dL 7-[address] [facility] Thin prep Papanicolaou smear with manual screeningOrdered By: Dianna Guido on 11-05-2022 Thin prep Papanicolaou smear with manual screening 6 5-[address] [facility] Absolute lymphocyte counton 04-06-2022 Lymphocytes Auto (Unsp spec) [#/Vol] 1.25 10*3/uL 0.83-4.[address] [facility] Work Phone: Basophil percentageon 2021 Basophils/100 WBC (Bld) 0.4 % 0-[address] [facility] Work Phone: Chloride [Moles/Vol] 100 mmol/L 98-107 [facility] Work Phone: Eosinophils/100 WBC (Bld) 0.7 % 0-[address] [facility] Work Phone: [phone] Glucose [Mass/Vol] 116 mg/dL 74-106 [facility] Work Phone: Comment on above: Fasting Glucose resu lt from 100 to 125 mg/dL suggests IMPAIRED HOMEOSTASIS per A.D.A. criteria. Neutrophils (Bld) [#/Vol] 3.5 10*3/uL 2.0-7.[address] [facility] Work Phone: Neutrophils/100 WBC (Bld) 60.5 % 47-[address] [facility] Work Phone: [phone] Potassium [Moles/Vol] 4.4 mmol/L 3.5-5.1 [facility] Work Phone: [phone] Sodium [Moles/Vol] 135 mmol/L 136-145 [facility] Work Phone: [phone] WBC (Bld) [#/Vol] 5.7 10*3/uL 4.4-11.0 [facility] Work Phone: [phone] Blood erythrocytes count (nu mber/volume)on 04-06-2022 RBC (Bld) [#/Vol] 4.96 10*6/uL 4.2-5.4 [facility] Work Phone: [phone] Blood hemoglobin measurement (mass/volume)on 04-06-2022 Hemoglobin (Bld) [Mass/Vol] 14.0 g/dL 12.0-15.[address] [facility] Work Phone: Blood lymphocytes/100 leukoc yteson 04-06-2022 Lymphocytes/100 WBC (Bld) 21.9 % 19-[address] [facility] Work Phone: Blood monocytes/100 leukocyt eson 04-06-2022 Monocytes/100 WBC (Bld) 16.3 % 0-[address] [facility] Work Phone: Blood platelet mean volumeon 04-06-2022 Platelet mean volume (Bld) [Entitic vol] 9.7 fL 6.2-12.[address] [facility] Work Phone: Determination of erythrocyte mean corpuscular volume (MCV)on 04-06-2022 MCV (RBC) [Entitic vol] 89.5 fL 81-[address] [facility] Work Phone: Hematocrit Auto (Bld) [Volum e fraction]on 04-06-2022 Hematocrit (Bld) [Volume fraction] 44.4 % 37-[address] [facility] Work Phone: Laboratory - Chemistry and C hemistry - challengeon 04-06-2022 CO2 [Moles/Vol] 28.0 mmol/L 21.0-32.[address] [facility] Work Phone: Urea nitrogen/Creatinine [Mass ratio] 19.6 mg/mg 10-[address] [facility] Work Phone: Laboratory - Hematology and Cell countson 04-06-2022 Erythrocyte distribution width (RBC) [Entitic vol] 45.3 fL 35.1-43.[address] [facility] Work Phone: Erythrocyte distribution width (RBC) [Ratio] 13.9 % 11.6-14.[address] [facility] Work Phone: Immature granulocytes/100 WBC (Bld) 0.200 % 0.0-0.[address] [facility] Work Phone: Comment on above: IG% - Immature Granu locytes (promyelocytes, myelocytes and metamyelocytes) > 1% indicates that a LEFT SHIFT is Present. MCH (RBC) [Entitic mass] 28.2 pg 27.0-32.[address] [facility] Work Phone: Nucleated RBC/100 WBC (Bld) [Ratio] 0 % 0-[address] [facility] Work Phone: MCHC Auto (RBC) [Mass/Vol]on 04-06-2022 MCHC (RBC) [Mass/Vol] 31.5 g/dL 32-36 [facility] Work Phone: No Panel Informationon 04-06 Estimated GFR (MDRD) Amer 101 mL/min >[address] [facility] Work Phone: Comment on above: GFR Calc Estimated GFR (MDRD) Non-Af Amer 84 mL/min >[address] [facility] Work Phone: Comment on above: Non- GFR Calc Platelets bldon 04-06-2022 Platelets (Bld) [#/Vol] 212 10*3/uL 150-[address] [facility] Work Phone: Serum or plasma C reactive p rotein measurement (mass/volume)on 04-06-2022 CRP [Mass/Vol] 8.87 mg/L 0.0-3.[address] [facility] Work Phone: Comment on above: C-Reactive Protein ( CRP) provides useful information for thediagnosis, therapy and monitoring of inflammatory processesand associated diseases. For the evaluation of Relative Riskfor Cardiovascular Disease, a High Sensitivity CRP (HSCRP)should be ordered. Serum or plasma calcium slava urement (mass/volume)on 04-06-2022 Calcium [Mass/Vol] 8.4 mg/dL 8.5-10.1 [facility] Work Phone: Serum or plasma creatinine m easurement (mass/volume)on 04-06-2022 Creatinine [Mass/Vol] 0.71 mg/dL 0.55-1.02 [facility] Work Phone: Comment on above: The validity of the calculated GFR & GFRAA in patients over 70 years has not been determined. Clinical correlation is essential. Serum or plasma urea nitroge n measurement (mass/volume)on 04-06-2022 Urea nitrogen [Mass/Vol] 14 mg/dL 7-[address] [facility] Work Phone: Thin prep Papanicolaou smear with manual screeningon 04-06-2022 Thin prep Papanicolaou smear with manual screening 7 5-[address] [facility] Work Phone: Absolute lymphocyte counton 03-11-2022 Lymphocytes Auto (Unsp spec) [#/Vol] 1.69 10*3/uL 0.83-4.[address] [facility] Work Phone: Basophil percentageon 2021 Basophils/100 WBC (Bld) 1.1 % 0-[address] [facility] Work Phone: Bilirubin [Mass/Vol] 1.80 mg/dL 0.20-1.00 [facility] Work Phone: Comment on above: For patients on eltr ombopag therapy, use of [employer] [place] TBIL is not recommended. Chloride [Moles/Vol] 107 mmol/L 98-107 [facility] Work Phone: Cholesterol [Mass/Vol] 131 mg/dL <200 [facility] Work Phone: Comment on above: <200 mg/dL Desirable 200-240 mg/dL Borderline >240 mg/dL High Risk Eosinophils/100 WBC (Bld) 3.7 % 0-[address] [facility] Work Phone: Glucose [Mass/Vol] 96 mg/dL 74-106 [facility] Work Phone: Neutrophils (Bld) [#/Vol] 3.4 10*3/uL 2.0-7.[address] [facility] Work Phone: Neutrophils/100 WBC (Bld) 54.8 % 47-[address] [facility] Work Phone: Potassium [Moles/Vol] 4.0 mmol/L 3.5-5.1 [facility] Work Phone: Protein [Mass/Vol] 6.3 g/dL 6.4-8.2 [facility] Work Phone: Sodium [Moles/Vol] 143 mmol/L 136-145 [facility] Work Phone: Triglyceride [Mass/Vol] 111 mg/dL <[address] [facility] Work Phone: Comment on above: The drugs N-Acetylcy steine and Metamizole may falsely depress this assay.Serum Triglycerides Reference Interval Normal <150 mg/dL Borderline high 150 - 199 mg/dL High 200 - 499 mg/dL Very High > or = 500 mg/dL WBC (Bld) [#/Vol] 6.2 10*3/uL 4.4-11.0 [facility] Work Phone: Blood erythrocytes count (nu mber/volume)on 03-11-2022 RBC (Bld) [#/Vol] 4.99 10*6/uL 4.2-5.4 [facility] Work Phone: Blood hemoglobin measurement (mass/volume)on 03-11-2022 Hemoglobin (Bld) [Mass/Vol] 13.7 g/dL 12.0-15.[address] [facility] Work Phone: Blood lymphocytes/100 leukoc yteson 03-11-2022 Lymphocytes/100 WBC (Bld) 27.5 % 19-[address] [facility] Work Phone: Blood monocytes/100 leukocyt eson 03-11-2022 Monocytes/100 WBC (Bld) 12.7 % 0-[address] [facility] Work Phone: Blood platelet mean volumeon 03-11-2022 Platelet mean volume (Bld) [Entitic vol] 9.7 fL 6.2-12.[address] [facility] Work Phone: Determination of erythrocyte mean corpuscular volume (MCV)on 03-11-2022 MCV (RBC) [Entitic vol] 91.0 fL 81-[address] [facility] Work Phone: Hematocrit Auto (Bld) [Volum e fraction]on 03-11-2022 Hematocrit (Bld) [Volume fraction] 45.4 % 37-[address] [facility] Work Phone: Laboratory - Chemistry and C hemistry - challengeon 03-11-2022 ALP [Catalytic activity/Vol] 73 U/L 45-[address] [facility] Work Phone: [phone] ALT [Catalytic activity/Vol] 22 U/L 13-[address] [facility] Work Phone: CO2 [Moles/Vol] 32.0 mmol/L 21.0-32.[address] [facility] Work Phone: [phone] Globulin (S) [Mass/Vol] 3.2 g/dL 2.2-4.[address] [facility] Work Phone: [phone] Magnesium [Mass/Vol] 2.3 mg/dL 1.6-2.6 [facility] Work Phone: [phone] Urea nitrogen/Creatinine [Mass ratio] 13.9 mg/mg 10-[address] [facility] Work Phone: [phone] Laboratory - Hematology and Cell countson 03-11-2022 Erythrocyte distribution width (RBC) [Entitic vol] 45.4 fL 35.1-43.[address] [facility] Work Phone: Erythrocyte distribution width (RBC) [Ratio] 13.5 % 11.6-14.[address] [facility] Work Phone: Immature granulocytes/100 WBC (Bld) 0.200 % 0.0-0.[address] [facility] Work Phone: [phone] Comment on above: IG% - Immature Granu locytes (promyelocytes, myelocytes and metamyelocytes) > 1% indicates that a LEFT SHIFT is Present. MCH (RBC) [Entitic mass] 27.5 pg 27.0-32.[address] [facility] Work Phone: [phone] Nucleated RBC/100 WBC (Bld) [Ratio] 0 % 0-[address] [facility] Work Phone: MCHC Auto (RBC) [Mass/Vol]on 03-11-2022 MCHC (RBC) [Mass/Vol] 30.2 g/dL 32-36 [facility] Work Phone: No Panel Informationon 03-11 Estimated GFR (MDRD) Amer 100 mL/min >[address] [facility] Work Phone: Comment on above: GFR Calc Estimated GFR (MDRD) Non-Af Amer 83 mL/min >[address] [facility] Work Phone: Comment on above: Non- GFR Calc Platelets bldon 03-11-2022 Platelets (Bld) [#/Vol] 267 10*3/uL 150-[address] [facility] Work Phone: Serum or plasma albumin slava urement (mass/volume)on 03-11-2022 Albumin [Mass/Vol] 3.1 g/dL 3.2-5.0 [facility] Work Phone: Serum or plasma albumin/glob ulin mass ratioon 03-11-2022 Albumin/Globulin [Mass ratio] 1.0 {ratio} 0.9-2.[address] [facility] Work Phone: Serum or plasma calcium slava urement (mass/volume)on 03-11-2022 Calcium [Mass/Vol] 8.7 mg/dL 8.5-10.1 [facility] Work Phone: Serum or plasma cholesterol in HDL measurement (mass/volume)on 03-11-2022 Cholesterol in HDL [Mass/Vol] 52 mg/dL >[address] [facility] Work Phone: Comment on above: The drugs N-Acetylcy steine and Metamizole may falsely depress this assay. Reference Range HDL <40 mg/dL Low HDL Cholesterol HDL >or= 60 mg/dL High HDL Cholesterol Serum or plasma cholesterol in VLDL measurement (mass/volume)on 03-11-2022 Cholesterol in VLDL [Mass/Vol] 22 mg/dL 5-[address] [facility] Work Phone: Serum or plasma creatinine m easurement (mass/volume)on 03-11-2022 Creatinine [Mass/Vol] 0.72 mg/dL 0.55-1.02 [facility] Work Phone: Comment on above: The validity of the calculated GFR & GFRAA in patients over 70 years has not been determined. Clinical correlation is essential. Serum or plasma low density lipoprotein (LDL) cholesterol measurement (mass/volume)on 03-11-2022 Cholesterol in LDL [Mass/Vol] 57 mg/dL 0-[address] [facility] Work Phone: Serum or plasma urea nitroge n measurement (mass/volume)on 03-11-2022 Urea nitrogen [Mass/Vol] 10 mg/dL 7-[address] [facility] Work Phone: Thin prep Papanicolaou smear with manual screeningon 03-11-2022 Thin prep Papanicolaou smear with manual screening 22 U/L 15-[address] [facility] Work Phone: Thin prep Papanicolaou smear with manual screening 4 5-[address] [facility] Work Phone: Absolute lymphocyte counton 11-19-2021 Lymphocytes Auto (Unsp spec) [#/Vol] 1.92 10*3/uL 0.83-4.[address] [facility] Work Phone: Basophil percentageon 2021 Basophils/100 WBC (Bld) 0.5 % 0-[address] [facility] Work Phone: Bilirubin [Mass/Vol] 2.00 mg/dL 0.20-1.00 [facility] Work Phone: Comment on above: For patients on eltr ombopag therapy, use of [employer] [place] TBIL is not recommended. Chloride [Moles/Vol] 105 mmol/L 98-107 [facility] Work Phone: Cholesterol [Mass/Vol] 147 mg/dL <200 [facility] Work Phone: Comment on above: <200 mg/dL Desirable 200-240 mg/dL Borderline >240 mg/dL High Risk Eosinophils/100 WBC (Bld) 2.5 % 0-[address] [facility] Work Phone: [phone] Glucose [Mass/Vol] 89 mg/dL 74-106 [facility] Work Phone: Neutrophils (Bld) [#/Vol] 4.6 10*3/uL 2.0-7.[address] [facility] Work Phone: Neutrophils/100 WBC (Bld) 61.2 % 47-[address] [facility] Work Phone: [phone] Potassium [Moles/Vol] 3.4 mmol/L 3.5-5.1 [facility] Work Phone: Protein [Mass/Vol] 7.0 g/dL 6.4-8.2 [facility] Work Phone: Sodium [Moles/Vol] 140 mmol/L 136-145 [facility] Work Phone: Triglyceride [Mass/Vol] 108 mg/dL <[address] [facility] Work Phone: Comment on above: The drugs N-Acetylcy steine and Metamizole may falsely depress this assay.Serum Triglycerides Reference Interval Normal <150 mg/dL Borderline high 150 - 199 mg/dL High 200 - 499 mg/dL Very High > or = 500 mg/dL WBC (Bld) [#/Vol] 7.5 10*3/uL 4.4-11.0 [facility] Work Phone: Blood erythrocytes count (nu mber/volume)on 11-19-2021 RBC (Bld) [#/Vol] 5.13 10*6/uL 4.2-5.4 [facility] Work Phone: Blood hemoglobin measurement (mass/volume)on 11-19-2021 Hemoglobin (Bld) [Mass/Vol] 14.4 g/dL 12.0-15.[address] [facility] Work Phone: Blood lymphocytes/100 leukoc yteson 11-19-2021 Lymphocytes/100 WBC (Bld) 25.5 % 19-[address] [facility] Work Phone: Blood monocytes/100 leukocyt eson 11-19-2021 Monocytes/100 WBC (Bld) 10.0 % 0-[address] [facility] Work Phone: Blood platelet mean volumeon 11-19-2021 Platelet mean volume (Bld) [Entitic vol] 9.6 fL 6.2-12.[address] [facility] Work Phone: Determination of erythrocyte mean corpuscular volume (MCV)on 11-19-2021 MCV (RBC) [Entitic vol] 88.9 fL 81-[address] [facility] Work Phone: Hematocrit Auto (Bld) [Volum e fraction]on 11-19-2021 Hematocrit (Bld) [Volume fraction] 45.6 % 37-[address] [facility] Work Phone: Laboratory - Chemistry and C hemistry - challengeon 11-19-2021 ALP [Catalytic activity/Vol] 83 U/L 45-[address] [facility] Work Phone: ALT [Catalytic activity/Vol] 22 U/L 13-[address] [facility] Work Phone: CO2 [Moles/Vol] 29.0 mmol/L 21.0-32.[address] [facility] Work Phone: Globulin (S) [Mass/Vol] 3.5 g/dL 2.2-4.[address] [facility] Work Phone: Magnesium [Mass/Vol] 2.3 mg/dL 1.6-2.6 [facility] Work Phone: Urea nitrogen/Creatinine [Mass ratio] 15.4 mg/mg 10-[address] [facility] Work Phone: Laboratory - Hematology and Cell countson 11-19-2021 Erythrocyte distribution width (RBC) [Entitic vol] 43.1 fL 35.1-43.[address] [facility] Work Phone: Erythrocyte distribution width (RBC) [Ratio] 13.2 % 11.6-14.[address] [facility] Work Phone: Immature granulocytes/100 WBC (Bld) 0.300 % 0.0-0.[address] [facility] Work Phone: Comment on above: IG% - Immature Granu locytes (promyelocytes, myelocytes and metamyelocytes) > 1% indicates that a LEFT SHIFT is Present. MCH (RBC) [Entitic mass] 28.1 pg 27.0-32.[address] [facility] Work Phone: Nucleated RBC/100 WBC (Bld) [Ratio] 0 % 0-[address] [facility] Work Phone: MCHC Auto (RBC) [Mass/Vol]on 11-19-2021 MCHC (RBC) [Mass/Vol] 31.6 g/dL 32-36 [facility] Work Phone: No Panel Informationon 11-19 Estimated GFR (MDRD) Amer 102 mL/min >[address] [facility] Work Phone: Comment on above: GFR Calc Estimated GFR (MDRD) Non-Af Amer 84 mL/min >[address] [facility] Work Phone: Comment on above: Non- GFR Calc Vitamin D 25-Hydroxy 51.6 ng/mL [facility] Work Phone: Comment on above: Vitamin D 25(OH) Sta tus Range Deficiency <20 ng/mL (50nmol/L) Insufficiency 20 - 30 ng/mL (50 - 75 nmol/L) Sufficiency 30 - 100 ng/mL (75 - 250 nmol/L) Toxicity >100 ng/mL (>250 nmol/L) Platelets bldon 11-19-2021 Platelets (Bld) [#/Vol] 277 10*3/uL 150-[address] [facility] Work Phone: Serum or plasma albumin slava urement (mass/volume)on 11-19-2021 Albumin [Mass/Vol] 3.5 g/dL 3.2-5.0 [facility] Work Phone: Serum or plasma albumin/glob ulin mass ratioon 11-19-2021 Albumin/Globulin [Mass ratio] 1.0 {ratio} 0.9-2.[address] [facility] Work Phone: Serum or plasma calcium slava urement (mass/volume)on 11-19-2021 Calcium [Mass/Vol] 9.1 mg/dL 8.5-10.1 [facility] Work Phone: Serum or plasma cholesterol in HDL measurement (mass/volume)on 11-19-2021 Cholesterol in HDL [Mass/Vol] 63 mg/dL >[address] [facility] Work Phone: Comment on above: The drugs N-Acetylcy steine and Metamizole may falsely depress this assay. Reference Range HDL <40 mg/dL Low HDL Cholesterol HDL >or= 60 mg/dL High HDL Cholesterol Serum or plasma cholesterol in VLDL measurement (mass/volume)on 11-19-2021 Cholesterol in VLDL [Mass/Vol] 22 mg/dL 5-[address] [facility] Work Phone: Serum or plasma creatinine m easurement (mass/volume)on 11-19-2021 Creatinine [Mass/Vol] 0.71 mg/dL 0.55-1.02 [facility] Work Phone: Comment on above: The validity of the calculated GFR & GFRAA in patients over 70 years has not been determined. Clinical correlation is essential. Serum or plasma low density lipoprotein (LDL) cholesterol measurement (mass/volume)on 11-19-2021 Cholesterol in LDL [Mass/Vol] 62 mg/dL 0-[address] [facility] Work Phone: Serum or plasma urea nitroge n measurement (mass/volume)on 11-19-2021 Urea nitrogen [Mass/Vol] 11 mg/dL 7-[address] [facility] Work Phone: Thin prep Papanicolaou smear with manual screeningon 11-19-2021 Thin prep Papanicolaou smear with manual screening 27 U/L 15-[address] [facility] Work Phone: Thin prep Papanicolaou smear with manual screening 6 5-[address] [facility] Work Phone: Culture, urineon 08-17-2021 Bacteria identified Cx Nom (U) Enterococcus faecalis [facility] Work Phone: CBC (NO DIFF)on 11-24-2019 CBC (NO DIFF) Normal [facility] Comment on above: Result Comment: CBC( WITHOUT DIFFERENTIAL) Performed By: #### 2 [id number] #### [facility],[address] [place] [address] 77649 Erythrocyte distribution width (RBC) [Ratio] 13.9 % Normal 12.0 - 15.6 [facility] Comment on above: Performed By: #### 2 [id number] #### [facility],[address] [place] [address] 88762 Hematocrit (Bld) [Volume fraction] 44.1 % Normal 34.0 - 46.0 [facility] Comment on above: Performed By: #### 2 [id number] #### [facility],[address] [place] [address] 40987 Hemoglobin (Bld) [Mass/Vol] 15.0 g/dL Normal 12.0 - 16.0 [facility] Comment on above: Performed By: #### 2 [id number] #### [facility],[address] [place] [address] 96764 MCH (RBC) [Entitic mass] 30 pg Normal 27 - 33 [facility] Comment on above: Performed By: #### 2 [id number] #### [facility],[address] [place] [address] 93012 MCHC (RBC) [Mass/Vol] 34 X10 3 Normal 32 - 36 [facility] Comment on above: Performed By: #### 2 [id number] #### [facility],[address] [place] [address] 74714 MCV (RBC) [Entitic vol] 87 fL Normal 80 - 99 [facility] Comment on above: Performed By: #### 2 [id number] #### [facility],[address] [place] [address] 68396 Platelet mean volume (Bld) [Entitic vol] 7.5 fL Normal 6.6 - 10.5 [facility] Comment on above: Performed By: #### 2 [id number] #### [facility],[address] [place] [address] 70744 Platelets (Bld) [#/Vol] 263 x10EE3/UL Normal 150 - 450 [facility] Comment on above: Performed By: #### 2 [id number] #### [facility],[address] [place] [address] 65272 RBC (Bld) [#/Vol] 5.09 x 10EE6/UL Normal 4.10 - 5.30 [facility] Comment on above: Performed By: #### 2 85588 #### [facility],[address] [place] [address] 38792 WBC (Bld) [#/Vol] 7.5 x 10EE3/UL Normal 4.5 - 10.8 [facility] Comment on above: Performed By: #### 2 [id number] #### [facility],[address] [place] [address] 07520 CMP with eGFRon 11-24-2019 Age - Reported [address] [facility] Comment on above: Performed By: #### 2 [id number] #### [facility],[address] [place] [address] 50543 Albumin [Mass/Vol] 4.3 g/dL Normal 3.4 - 4.8 [facility] Comment on above: Performed By: #### 2 88620 #### [facility],[address] [place] [address] 06932 Albumin/Globulin [Mass ratio] 1.5 {ratio} Normal 0.9 - 1.6 [facility] Comment on above: Performed By: #### 2 [id number] #### [facility],[address] [place] [address] 50174 ALK PHOS 56 U/L Normal 38 - 126 [facility] Comment on above: Performed By: #### 2 [id number] #### [facility],[address] [place] [address] 35806 ALT/SGPT 14 U/L Normal 8 - 35 [facility] Comment on above: Performed By: #### 2 [id number] #### [facility],[address] [place] [address] 79465 Anion gap [Moles/Vol] 11 mmol/L Normal 10 - 20 [facility] Comment on above: Performed By: #### 2 87470 #### [facility],[address] [place] [address] 73181 AST/SGOT 22 U/L Normal 13 - 39 [facility] Comment on above: Performed By: #### 2 [id number] #### [facility],[address] [place] [address] 24787 B/C RATIO 18 ratio Normal 0 - 30 [facility] Comment on above: Performed By: #### 2 [id number] #### [facility],[address] [place] [address] 07186 Bilirubin [Mass/Vol] 1.8 mg/dL High 0.0 - 1.5 [facility] Comment on above: Performed By: #### 2 [id number] #### [facility],[address] [place] [address] 90901 Calcium [Mass/Vol] 9.6 mg/dL Normal 8.6 - 10.2 [facility] Comment on above: Performed By: #### 2 [id number] #### [facility],[address] [place] [address] 00482 Chloride [Moles/Vol] 100 mmol/L Normal 98 - 107 [facility] Comment on above: Performed By: #### 2 72781 #### [facility],[address] [place] [address] 22048 CO2 [Moles/Vol] 28.8 mmol/L Normal 21.0 - 31.0 [facility] Comment on above: Performed By: #### 2 76069 #### [facility],[address] [place] [address] 93415 Creatinine [Mass/Vol] 0.6 mg/dL Normal 0.6 - 1.2 [facility] Comment on above: Performed By: #### 2 57506 #### [facility],[address] [place] [address] 02583 GFR/1.73 sq M predicted among non-blacks MDRD (S/P/Bld) [Vol rate/Area] mL/min/{1.73_m2} Normal 60 - 999 [facility] Comment on above: Result Comment: ACCO RDING TO THE NATIONAL KIDNEY DISEASE EDUCATION PROGRAM(NKDE), A NORMAL eGFR IS A VALUE GREATER THAN OR EQUAL TO 60 ML/MIN/1.73 SQ METERS. CHRONIC KIDNEY DISEASE: <60mL/MIN/1.73 SQ METERS KIDNEY FAILURE: <15mL/MIN/1.73 SQ METERS THIS TEST SHOULD ONLY BE USED FOR PATIENTS 18 YEARS OF AGE AND OLDER. Performed By: #### 2 [id number] #### [facility],[address] [place] [address] 54790 GFR/1.73 sq M predicted among non-blacks MDRD (S/P/Bld) [Vol rate/Area] Normal [facility] Comment on above: Result Comment: COMP REHENSIVE METABOLIC PANEL Performed By: #### 2 [id number] #### [facility],[address] [place] [address] 08112 Globulin (S) [Mass/Vol] 2.9 g/dL Normal 1.5 - 3.8 [facility] Comment on above: Performed By: #### 2 91418 #### [facility],[address] [place] [address] 56152 Glucose [Mass/Vol] 90 mg/dL Normal 74 - 106 [facility] Comment on above: Performed By: #### 2 [id number] #### [facility],[address] [place] [address] 61166 Potassium [Moles/Vol] 3.8 mmol/L Normal 3.5 - 5.1 [facility] Comment on above: Performed By: #### 2 16379 #### [facility],[address] [place] [address] 90716 Protein [Mass/Vol] 7.2 g/dL Normal 6.4 - 8.3 [facility] Comment on above: Performed By: #### 2 89897 #### [facility],[address] [place] [address] 44858 Sodium [Moles/Vol] 136 mmol/L Normal 136 - 145 [facility] Comment on above: Performed By: #### 2 [id number] #### [facility],[address] [place] [address] 09975 Urea nitrogen [Mass/Vol] 11 mg/dL Normal 6 - 20 [facility] Comment on above: Performed By: #### 2 [id number] #### [facility],[address] [place] [address] 61556 Culture, urine Bacteria identified Cx Nom (U) Enterococcus faecalis [facility] Work Phone: Vital Signs Date Time Vital Sign Value Performing Clinician Facility 01-31-2025 14:08-0400 Body temperature 98.49 [degF] Alicia Nava MD Work Phone: [facility] 01-31-2025 14:08-0400 Diastolic blood pressure 71 mm[Hg] Alicia Nava MD Work Phone: [facility] 01-31-2025 14:08-0400 Heart rate 85 /min Alicia Nava MD Work Phone: [facility] 01-31-2025 14:08-0400 Respiratory rate 18 /min Alicia Nava MD Work Phone: [facility] 01-31-2025 14:08-0400 SaO2% (BldA) [Mass fraction] 97 % Alicia Nava MD Work Phone: [facility] 01-31-2025 14:08-0400 Systolic blood pressure 110 mm[Hg] Alicia Nava MD Work Phone: [facility] 01-31-2025 04:47-0400 Body mass index (BMI) [Ratio] 20.05 kg/m2 Alicia Nava MD Work Phone: [facility] 01-31-2025 04:47-0400 Body weight 61.6 kg Alicia Nava MD Work Phone: [facility] 01-25-2025 18:06-0400 Heart rate 82 /min Alicia Nava MD Work Phone: [facility] 01-25-2025 12:05-0400 Body height 175.3 cm Alicia Nava MD Work Phone: [facility] 01-25-2025 10:43-0400 Diastolic blood pressure 74 mm[Hg] Dr. Karen Lang MD Work Phone: [facility] 01-25-2025 10:43-0400 Heart rate 84 /min Dr. Karen Lang MD Work Phone: [facility] 01-25-2025 10:43-0400 Respiratory rate 15 /min Dr. Karen Lang MD Work Phone: [facility] 01-25-2025 10:43-0400 SaO2% (BldA) [Mass fraction] 96 % Dr. Karen Lang MD Work Phone: [facility] 01-25-2025 10:43-0400 Systolic blood pressure 110 mm[Hg] Dr. Karen Lang MD Work Phone: [facility] 01-25-2025 09:43-0400 Body temperature 98.4 [degF] Dr. Karen Lang MD Work Phone: [facility] 01-24-2025 21:15-0400 Body height 172.[address] Karen Lang MD Work Phone: [facility] 01-24-2025 21:15-0400 Body mass index (BMI) [Ratio] 19.8 kg/m2 Dr. Karen Lang MD Work Phone: [facility] 01-24-2025 21:15-0400 Body weight 59.[address] Karen Lang MD Work Phone: [facility] 06-25-2023 14:01-0500 Body mass index (BMI) [Ratio] 21 kg/m2 [facility] 06-25-2023 14:01-0500 Body temperature 96.7 [degF] [facility] 06-25-2023 14:01-0500 Diastolic blood pressure 75 mm[Hg] [facility] 06-25-2023 14:01-0500 Heart rate 83 /min [facility] 06-25-2023 14:01-0500 Respiratory rate 16 /min [facility] 06-25-2023 14:01-0500 Systolic blood pressure 125 mm[Hg] [facility] 06-11-2023 13:11-0500 Body mass index (BMI) [Ratio] 21 kg/m2 [facility] 06-11-2023 13:11-0500 Diastolic blood pressure 69 mm[Hg] [facility] 06-11-2023 13:11-0500 Heart rate 83 /min [facility] 06-11-2023 13:11-0500 Respiratory rate 18 /min [facility] 06-11-2023 13:11-0500 Systolic blood pressure 123 mm[Hg] [facility] 06-09-2023 00:26-0500 Body temperature 98.7 [degF] [facility] 06-09-2023 00:26-0500 Body weight 62.77 kg [facility] 06-04-2023 13:12-0500 Body mass index (BMI) [Ratio] 21 kg/m2 [facility] 06-04-2023 13:12-0500 Body temperature 98.7 [degF] [facility] 06-04-2023 13:12-0500 Diastolic blood pressure 67 mm[Hg] [facility] 06-04-2023 13:12-0500 Heart rate 89 /min [facility] 06-04-2023 13:12-0500 Respiratory rate 20 /min [facility] 06-04-2023 13:12-0500 Systolic blood pressure 116 mm[Hg] [facility] 05-28-2023 13:02-0500 Body mass index (BMI) [Ratio] 21 kg/m2 [facility] 05-28-2023 13:02-0500 Diastolic blood pressure 88 mm[Hg] [facility] 05-28-2023 13:02-0500 Heart rate 90 /min [facility] 05-28-2023 13:02-0500 Respiratory rate 16 /min [facility] 05-28-2023 13:02-0500 Systolic blood pressure 131 mm[Hg] [facility] 05-21-2023 13:12-0500 Body height 172.72 cm [facility] 05-21-2023 13:12-0500 Body temperature 96.8 [degF] [facility] 05-21-2023 13:12-0500 Body weight 62.77 kg [facility] Encounters Encounter Date Encounter Type Care Provider Facility Start: 04-13-2025 End: 04-13-2025 Telephone encounter Asmita Allen RN [facility] Start: 04-08-2025 ambulatory Dianna Gudla Facility:[facility] Start: 04-06-2025 End: 04-06-2025 Telephone encounter Asmita Allen RN [facility] Start: 04-04-2025 ambulatory Dianna Gudla OLS Facili ty:[facility] Start: 03-30-2025 End: 03-30-2025 ambulatory Dianna Gudla OLS Facility:[facility] Start: 02-25-2025 End: 02-25-2025 Letter encounter Gi Provider [facility] Start: 02-23-2025 End: 02-23-2025 Refill Isauro Page MD Work Phone: [facility] Comment on above: Refill Start: 02-23-2025 ambulatory ISAURO PAGE Facilit y:[facility] Start: 02-16-2025 End: 02-16-2025 ambulatory Dianna Gudla OLS Facility:[facility] Start: 02-14-2025 End: 02-14-2025 Admission to same day surgery center Isauro Page MD Work Phone: [facility] Start: 02-09-2025 End: 02-09-2025 Admission to same day surgery center Isauro Page MD Work Phone: [facility] Start: 02-09-2025 End: 02-09-2025 ambulatory Dianna Gudla OLS Facility:[facility] Start: 02-02-2025 End: 02-02-2025 ambulatory [facility] Gudla Facility:[facility] Start: 02-01-2025 End: 02-01-2025 Telephone encounter Anselmo Whittaker MD Work Phone: [facility] Radiology Start: 01-28-2025 ambulatory NORA HAYS Facility:[facility] Start: 01-27-2025 ambulatory UNKNOWN PROVIDER Facili ty:[facility] Start: 01-25-2025 End: 01-25-2025 Telephone encounter Keyon Fallon DO Work Phone: [facility] Start: 01-25-2025 End: 01-31-2025 Evaluation and management of inpatient Alicia Nava MD Work Phone: [facility] [address] Comment on above: Rectal [...] Start: 01-25-2025 End: 01-25-2025 ambulatory UNKNOWN PROVIDER Facility:[facility] Start: 01-25-2025 Evaluation and manag ement of inpatient UNKNOWN PROVIDER Facility:[facility] Start: 01-24-2025 End: 01-25-2025 Emergency department patient visit Dr. Karen Lang MD Work Phone: -Emergency Department Work Phone: Start: 11-08-2024 End: 11-08-[address] Karen Lang MD Work Phone: [facility] Work Phone: Start: 11-08-2024 End: 11-08-[address] Dianna Guido MD -[facility] Work Phone: Start: 11-08-2024 End: 11-08-2024 ambulatory Karenyves Lang Facility:[facility] Start: 10-04-2024 [facility] Start: 10-04-[address] Dianna Guido MD -[facility] Work Phone: Start: 05-31-2024 End: 05-31-2024 [facility] Start: 06-25-2023 End: 07-09-[address] [facility] Work Phone: Start: 06-25-2023 End: 07-09-2023 Discharged Recurring [facility] Work Phone: Start: 06-11-2023 Registered Recurring [facility] Work Phone: Start: 06-04-2023 End: 06-08-[address] [facility] Work Phone: Start: 06-04-2023 End: 06-08-2023 Discharged Recurring [facility] Work Phone: Start: 05-28-2023 Registered Recurring [facility] Work Phone: Start: 05-19-2023 End: 05-19-[address] [facility] Work Phone: Start: 05-19-2023 End: 05-19-2023 Departed Referred [facility] Work Phone: Start: 05-16-2023 End: 05-16-[address] [facility] Work Phone: Start: 05-16-2023 End: 05-16-2023 Departed Referred [facility] Start: 05-16-2023 Registered Referred [facility] Start: 05-14-2023 End: 05-14-[address] [facility] Work Phone: Start: 05-14-2023 End: 05-14-2023 Departed [facility]erred [facility] Work Phone: Start: 04-28-2023 End: 04-28-[address] [facility] Work Phone: Start: 04-28-2023 End: 04-28-2023 Departed [facility]erred [facility] Work Phone: Start: 03-26-2023 End: 03-26-[address] [facility] Work Phone: Start: 03-26-2023 End: 03-26-2023 [facility] Work Phone: Start: 02-27-2023 End: 02-27-2023 [facility] Work Phone: Start: 02-27-2023 Registered Referred [facility] Work Phone: Start: 01-03-2023 End: 01-03-[address] [facility] Work Phone: Start: 01-03-2023 End: 01-03-2023 Departed [facility] Work Phone: Start: 12-24-2022 End: 12-24-2022 Departed [facility] Work Phone: Start: 11-05-2022 Registered Referred [facility] Work Phone: Start: 04-06-2022 End: 04-06-[address] [facility] Work Phone: Start: 04-06-2022 End: 04-06-2022 Departed [facility] Start: 03-11-2022 End: 03-11-2022 Departed [facility] Start: 11-19-2021 End: 11-19-2021 Departed [facility] Start: 08-17-2021 End: 08-17-2021 Departed [facility] Start: 09-05-2020 End: 09-05-2020 Patient encounter procedure [facility] Start: 08-11-2020 End: 08-11-2020 Patient encounter procedure MAMTA [facility] Start: 11-24-2019 End: 11-24-2019 Patient encounter procedure MIKE MONTIEL [facility] Start: 11-05-2019 Encounter for genera l adult medical examination without abnormal findings PAUL [facility] Start: 11-05-2019 Patient encounter procedure PAUL GARCIA [facility] Procedures Date Procedure Procedure Detail Performing Clinician [...] img Wilbert Pérez MD Work Phone: Start: 0 End: 01-25-2025 Blood typing serologic abo Daniel [...] 05-23-2035 Screening for malignant neoplasm of colon [facility] Start: 04-18-2035 Screening for malignant neoplasm of colon [facility] Start: 02-24-2035 Screening for malignant neoplasm of colon [facility] Start: 01-24-2026 Screening for malignant neoplasm of colon FIT [facility] Start: 05-23-2025 End: 05-23-2025 Admission to same day surgery center [facility] Comment on above: COLONOSCOPY + FTR 90 Start: 05-23-2025 End: 05-23-2025 Colonoscopy flx dx w/collj spec when pfrmd [facility] Start: 05-23-2025 Subsequent hospital visit by physician [facility] Start: 05-04-2025 End: 02-01-2026 RFA Hepatic artery Views W contrast IA XA HEPATIC ARTERY COMMON (KATYA) Imaging Routine Aneurysm of hepatic artery (HCC) Expected: 05/04/2025, Expires: 02/01/2026 [facility] Work Phone: Comment on above: Expected: 05/04/2025, Expires: Start: 04-18-2025 End: 04-18-2025 Admission to same day surgery center 04/18/2025 9:00 AM EST - 04/18/2025 10:30 AM EST Surgery [facility] [address] [place] [id number] Isauro Page MD [address] [place] [address] [place] [address] [facility]OSCOPY + FTR 90 [facility] Comment on above: COLONOSCOPY + FTR 90 Start: 04-18-2025 End: 04-18-2025 Colonoscopy flx dx w/collj spec when pfrmd COLONOSCOPY Adenomatous polyp of ascending colon 04/18/2025 9:00 AM EST [facility] Start: 04-18-2025 Subsequent hospital visit by physician 04/18/2025 9:00 AM EST Hospital Encounter [facility] [address] [place] [address] Isauro Page MD [address] [place] [address] [place] [address] [facility] Start: 03-09-2025 Influenza vaccination Influenza Vaccine (#1) [facility] Start: 02-24-2025 End: 02-24-2025 Admission to same day surgery center [facility] Comment on above: COLONOSCOPY Start: 02-24-2025 End: 02-24-2025 Colonoscopy flx dx w/collj spec when pfrmd [facility] Start: 02-24-2025 Subsequent hospital visit by physician [facility] Start: 02-07-2025 COVID-19 Vaccine ( season) COVID-19 Vaccine ( season) [facility] Start: 02-07-2025 COVID-19 Vaccine ( season) COVID-19 Vaccine ( season) [facility] Start: 02-07-2025 Influenza vaccination Influenza Vaccine (#1) [facility] Start: 01-25-2025 Administration of blood product [facility] Start: 01-25-[address] [facility] Start: 01-24-[address] [facility] Start: 01-07-2025 Welcome to Medicare Visit (G0402) Welcome to Medicare Visit (G0402) [facility] Start: 02-08-2024 COVID-19 Vaccine ( season) COVID-19 Vaccine ( season) [facility] Start: 05-22-2023 Microbial culture, routine Wound Culture [facility] Start: 05-22-[address] [facility] Start: 2017 RSV vaccine (adult) (1 - [...] A (HAV) Vaccine (optional start 19+ years) [facility] Start: 1960 Tdap Booster Tdap Booster [facility] Anatomic pathology procedure [facility] Comment on above: Release Upon Ordering for 1 Occurrences starting 01/27/2025, 1 completed CBC W Auto Different ial panel - Blood COMPLETE BLOOD COUNT W/DIFF Lab Routine Daily until discontinued starting 01/26/2025, 6 completed [facility] [employer] Work Phone: Comment on above: Daily [...] in Unspecified specimen by Culture [facility] End: 01-25-2025 Guidance for embolization of Artery [employer] Work Phone: Comment on above: Today for 1 Occurrences starting 025 until 01/25/2025 Lactic acid measurement [facility] Patient referral [facility] Work Phone: End: 01-28-2025 RFA Celiac artery Views W contrast [facility] Comment on above: Today for 1 Occurrences starting 025 until 01/28/2025 End: 01-28-2025 RFA Vessels Views W contrast IA [facility] Comment on above: Today for 1 Occurrences starting 025 until 01/28/2025 End: 01-27-2025 Surgical pathology procedure [facility] [employer] Work Phone: Comment on above: One time for 1 Occurrences starting 01/08 until 01/27/2025 Release Upon Orderin g for 1 Occurrences starting 01/27/2025 Payers Date Payer Category Payer Medicare (Managed Care) [facility] MEDICARE [id number] 2024 Medicaid HMO [employer] MEDICAID [id number] 2024 Unknown [id number] 2024 Medicaid [id number] 2024 Self-pay [id number] 2024 Unknown [id number] 1940 Unknown [id number] 2.16840.1.766839.3.579.2. 651 1942 Unknown [id number] 2.16840.1.533693.3.579.2. 65 1942 Unknown [id number] 2.16.840.1.345440.3.579.2. 651 1942 Unknown [id number] 2.16840.1.905061.3.579.2. 65 1942 Unknown [id number] 2.16.840.1.841728.3.579.2. 651 1942 Unknown [id number] 2.840.1.914527.3.579.2. 732 1942 Unknown [id number] 2.840.1.008096.3.579.2. 732 1942 Unknown [id number] 2.0.1.511338.3.579.2. 73 1942 Unknown [id number] 2.840.1.225090.3.579.2. 732 1942 Unknown [id number] 2.0.1.346036.3.579.2. 732 1942 Unknown [id number] 20.1.260836.3.579.2. 73 Blue Cross Blue Shield [id number] Medicare [id number] Medicare [id number] Unknown [id number] Unknown [id number] Unknown [id number] 840.1.723183.3.579.2. 462 Unknown [id number] .840.1.446005.3.579.2. 462 Unknown [id number] .840.1.568123.3.579.2. 462 Unknown [id number] 2.840.1.115779.3.579.2. 462 Unknown [id number] 2.840.1.058371.3.579.2. 462 Unknown [id number] 2.840.1.647809.3.579.2. 462 Unknown [id number] 2.840.1.603999.3.579.2. 462 Unknown [id number] 2.840.1.354886.3.579.2. 462 Unknown [id number] 2.840.1.574365.3.579.2. 462 Unknown [id number] 2.0.1.280983.3.579.2. 462 Unknown [id number] 2.0.1.511091.3.579.2. 462 Social History Date Type Detail Facility Start: 12-24-2019 End: 05-21-2023 Tobacco smoking status RIIS Unknown if ever smoked [facility] Start: 12-24-2019 None [facility] Start: 12-24-2019 Spouse/ Signif icant Other [facility] Start: 02-08-2020 Non-smoker [facility] Start: 1940 Sex Assigned At Female [facility] Start: 05-21-2023 End: 01-24-2025 Tobacco smoking status NHIS Never smoked tobacco (finding) [facility] Start: 1940 Sex assigned at Not on file [facility] Start: 01-25-2025 Sex Female (finding) [facility] Start: 01-25-2025 Gender identity Not on file [facility] Start: 01-25-2025 History of Social function [facility] Has the [employer], [employer], [employer], or water CPower threatened to shut off services in your home in past 12Mo No [facility] Fear of Current or Ex-Partner Not on file [facility] (I/We) worried wheglynn er (my/our) food would run out before (I/we) got money to buy more. Never true [facility] Medical Equipment Procedure Code Equipment Code Equipment Origin al Text Equipment Identifier Dates Coil Embl 60cm . 02in 14mm Ea1 [id number] - [id number] Start: 01-28-2025 Coil Embl 30cm . 02in 6mm Ea1 [id number] - [id number] Start: 01-28-2025 Coil Embl 30cm . 02in 6mm Ea1 [id number] - [id number] Start: 01-28-2025 Coil Embl 20cm . 02in 6mm Araceli Ea1 [id number] - [id number] Start: 01-28-2025 Coil Embl 60cm . 02in 18mm Araceli Ea1 [id number] - [id number] Start: 01-28-2025 Coil Embl 60cm . 02in 12mm Ea1 [id number] - [id number] Start: 01-28-2025 Coil Embl 60cm . 02in 12mm Ea1 [id number] - [id number] Start: 01-28-2025 Coil Embl 30cm P od Pk J-Sft Ea1 [id number] - [id number] Start: 01-28-2025 Coil Embl 35cm . 02in 10mm Ea1 [id number] - [id number] Start: 01-28-2025 Coil Embl 40cm . 02in 8mm Ea1 [id number] - [id number] Start: 01-28-2025 Coil Embl 45cm P od Pk J-Sft Ea1 [id number] - [id number] Start: 01-28-2025 Coil Embl 25cm . 02in 8mm Ea1 [id number] - [id number] Start: 01-28-2025 Clinical Notes 05-21-2023 to [...] appointment in the Interventional Radiology Clinic call [phone] option 3. If you notice more rectal [...] Miralax if needed documented in this encounter [facility] 01-31-2025 Note DISCHARGE SUMMARY [place] [address] Ely Hurtado 84 year old female 1940 [...] of HTN, HLD, DVT (Eliquis) transferred from [facility] for urgent vascular intervention for incidental [...] assisted living after PT/OT re-evaluation with [facility] in hemodynamically stable condition. TODO: [] [...] Referral Type: Service Level Authorization Referral Location: [facility] PRE ADMISSION TESTING Number of Visits Requested: 1 Expiration Date: 01/26/26 PRE-ADMISSION TESTING CONSULT Referral Priority: Routine Referral Type: Service Level Authorization Referral Location: [facility] PRE ADMISSION TESTING Number of Visits Requested: 1 Expiration Date: 01/26/26 HOME CARE SERVICE REQUEST Referral Priority: Routine Referral Type: Home Health Referral Referral Location: [facility] Number of Visits Requested: 3 Expiration Date: 01/31/26 FOLLOW UP IN PRIM (more content not included)... [facility] 01-31-2025 Hospital course Narrative Images from the original note were not included. DISCHARGE SUMMARY [address] [address] Ely Hurtado 84 year old female 1940 [...] assisted living after PT/OT re-evaluation with [facility] in hemodynamically stable condition. TODO: [] [...] Referral Type: Service Level Authorization Referral Location: [facility] PRE ADMISSION TESTING Number of Visits Requested: 1 Expiration Date: 01/26/26 PRE-ADMISSION TESTING CONSULT Referral Priority: Routine Referral Type: Service Level Authorization Referral Location: [facility] PRE ADMISSION TESTING Number of Visits Requested: 1 Expiration Date: 01/26/26 HOME CARE SERVICE REQUEST Referral Priority: Routine Referral Type: Home Health Referral Referral Location: [facility] Number of Visits Requested: 3 Expiration Date: 01/31/26 FOLLOW UP IN PRIMARY CARE INTERVENTIONAL RAD CLINIC REFERRAL Referral Priority: Routine Referral Type: Radiology Referral Location: [facility] INTERVENTIONAL RAD Number of Visits Requested: [...] this patient's discharge. documented in this encounter [facility] 01-31-2025 Progress note Formatting of [...] from the medicare.gov compare site for HHC. [place] [employer] [place] was provided to the patient/patient guest relations representative. CM to follow up with accepting agencies. CM to continue to follow. ADDENDUM: CM spoke with Debra Campbell from [facility] and she states that the patient can receive therapy under Medicare part B from PT at her AL if she so wishes. CM will continue to follow additional discharge planning needs. ADDENDUM: CM spoke with Pt son and notified him that patient would be discharge back to her AL today. Son stated that he would be at to worm picker pt and transport her back to [facility] after 5pm. CM will continue to follow. Breanna Wilder MSN, RN Inpatient Rn Surgical 7E/7W Cell [phone] Desk [phone] [facility] 01-31-2025 Miscellaneous Notes SW/CM aware that patient meets criteria for HHC. Spoke with Pts son over the phone to discuss dispo. Patient open and agreeable to HHC. CM provided Pt son the quality and resource use measure data from available post-acute (PAC) providers, that best align with the patient's treatment goals and preferences from the medicare.gov compare site for HHC. [place] [employer] was provided to the patient/patient guest relations representative. CM to follow up with accepting agencies. CM to continue to follow. ADDENDUM: CM spoke with Debra Campbell from [facility] and she states that the patient can receive therapy under Medicare part B from PT at her AL if she so wishes. CM will continue to follow additional discharge planning needs. ADDENDUM: CM spoke with Pt son and notified him that patient would be discharge back to her AL today. Son stated that he would be at to worm picker pt and transport her back to [facility] after 5pm. CM will continue to follow. Breanna Wilder MSN, RN Inpatient Rn Surgical /7W Cell [phone] Desk [phone] Associated Problem(s): Aneurysm of hepatic artery (HCC) [...] care --pharmacy dispense reports has been on [employer] since 02/11/2024 --Eliquis currently held since 01/23/2025, [...] care --pharmacy dispense reports has been on [employer] since 02/11/2024 --Eliquis currently held since 01/23/2025, [...] an 84 year old (Full Code) Room: [facility]/1 N [id number] 1940 FROM Step down unit TO Medicine [...] currently resides at [facility] ([facility]) where she was found to have significant bright red blood in her stool following multiple episodes of diarrhea on the morning of 01/24. They were transferred to the 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 Nelda James DO Family Medicine, PGY2 FM Pager: [phone] Spoke with Pt's son and daughter in [...] from the medicare.gov compare site for SNF. [place] [facility] [place] was provided to the patient/patient guest relations representative. For SNF: RN/MD to complete [employer]. Signature page placed on patient's chart for MD signature. [id number] initiated in HENS Pt will require a pre-cert/LOC. SW/CM will follow up for choices. Referral sent to [facility] which is the sister SNF for [facility]. CM will continue to follow Breanna VALLEJO, RN Inpatient Rn Surgical 7E/7W Cell [phone] Desk Dcamn-[phone] I tried at least thrice to reach her son to update on her colonoscopy but with no avail. Ely Hurtado 84 year old Surgical Contact Serial Number: [id number] Location: ENDO ADD ON PROCEDURE Date: 01/27/2025 Small Business Director: Juan Parikh MD Attending:Adrien Caraballo MD [...] transillumination of right lower quadrant. Prep was Hawley Bowel Prep Right Colon: Entire colon seen well, [facility]ley Bowel Prep Transverse Colon: Entire colon seen well, [facility]ley Bowel Prep Left Colon:Entire colon seen well [...] + internal hemorrhoids Rectal bleeding (Primary Diagnosis) [787031] Unspecified right bundle-branch block [0692321] Abnormal electrocardiogram (ECG) (EKG) [6408831] Abnormal electrocardiogram (ECG) (EKG) [[id number]] ANATOMIC SPECIMEN: Yes SPECIMEN: ID Type Source [...] Caraballo MD Division of Gastroenterology & Hepatology [facility] Ely Hurtado is a 84 year old female admitted on 01/25/2025 with a history of HTN, HLD, DVT (Eliquis) transferred from [facility] for urgent vascular intervention for incidental [...] anticoagulation before discharge. documented in this encounter [facility] 01-31-2025 Consult note Associated Order [...] Max Mod Min CG CS Sup DS GA I Comment Supine to sit X Sit [...] With Patients permission ordered no equipment via [employer] Order. If any questions contact [facility] DME Provider at [phone]. 01/31/2025 6 Clicks Basic Mobility PT Difficulty [...] Patient is functionally appropriate for discharge to [facility] with assist PRN once medically cleared. [...] NA = Not Assessed, I = Independent, GA = Modified Independent, Sup = Supervised, Set up = Physical Assistance for Set-up Only, Min = Minimal Assistance, Mod = Moderate Assistance, Max = Maximal assistance; Dep = Dependent; AROM = Active Range of Motion; PROM = Passive Range of Motion; MMT = Manual Muscle Test T [facility] 01-31-2025 Note PHYSICAL THERAPY PRO TOÁMS SUMMARY Patient seen from 9:17 am to [...] Max Mod Min CG CS Sup DS GA I Comment Supine to sit X Sit [...] With Patients permission ordered no equipment via [employer] Order. If any questions contact [facility] DME Provider at [phone]. 01/31/2025 6 Clicks Basic Mobility PT Difficulty [...] Patient is functionally appropriate for discharge to [facility] with assist PRN once medically cleared. [...] NA = Not Assessed, I = Independent, GA = Modified Independent, Sup = Supervised, Set up = Physical Assistance for Set-up Only, Min = Minimal Assistance, Mod = Moderate Assistance, Max = Maximal assistance; Dep = Dependent; AROM = Active Range of Motion; PROM = Passive Range of Motion; MMT = Manual Muscle Test [facility] 01-31-2025 Consult note Associated Order (s): [...] Max Mod Min CG CS Sup DS GA I Comment Supine to sit X Sit [...] With Patients permission ordered no equipment via [employer] Order. If any questions contact [facility] DME Provider at [phone]. 01/31/2025 6 Clicks Basic Mobility PT Difficulty [...] Patient is functionally appropriate for discharge to [facility] with assist PRN once medically cleared. [...] NA = Not Assessed, I = Independent, GA = Modified Independent, Sup = Supervised, Set up = Physical Assistance for Set-up Only, Min = Minimal Assistance, Mod = Moderate Assistance, Max = Maximal assistance; Dep = Dependent; AROM = Active Range of Motion; PROM = Passive Range of Motion; MMT = Manual Muscle Test Images from the original note were not included. Dietitian vs DietaryTech: Dietary TechDiet Object Oriented Programmer Nutrition Screening Reason for visit: LOS 5 [...] up. Will continue to follow, Ava Hays Seasonal Customer Service Associate Pager#[phone] Time spent on patient care: 15 minutes [...] and anemia. Pt currently resides at SNF ([facility]) Diagnosis: Rectal Bleeding Hepatic [...] somewhere" Patient Identified Goal(s): find her walker MD UROLOGIST Status: questionable historian Mobility Status: Modified indep [...] at SNF ([facility] with staff assist OBJECTIVE: Appearance: received supine [...] Dep Max Mod Min CG CS DS GA I Set-Up Comment Supine to Sit x [...] With Patients permission ordered no equipment via Procurify Order. If any questions contact [facility] DME Provider at [phone]. 01/27/2025 6 Clicks Basic Mobility PT Difficulty [...] address. Recommend further therapy services in a Longterm Setting once medically cleared. Will continue to [...] NA = Not Assessed, I = Independent, GA = Modified Independent, Sup = Supervised, Set [...] Patient Subjective: "My walker is somewhere in [place]" Patient Identified Goal(s): Return home Home Living Situation Per pt report: Lives in apartment w 0 LATESHA 0 steps to bed/ bathroom (walk in shower) Lives alone w son PRN assistance Equipment available: rollator, shower chair, grab bars Ind w ADL+ assist for IADLs GA for functional mobility w rollator (-) Drive (-) Falls Per chart: pt resides at SNF ([facility]) with staff assist OBJECTIVE: Patient Identification: patient [...] Dep Max Mod Min CG CS DS GA I Set-Up Comment Feeding x x NPO Anticipate CS Grooming/Hygiene x x Anticipate seated Bathing:UB x Anticipate seated Bathing:LB x Anticipate seated Dressing:UB x Adjust hospital gown seated EOB Dressing: LB x Anticipate seated Toileting x x Anticipate CS for pericare and CGA for clothing management Transfers/Bed Mobility: Assistance Level Dep Max Mod Min CG CS DS GA I Set-Up Comment Toilet Transfers x Anticiapte [...] call light in reach. Chair alarm intact. [place] belt in place. DME: With Patients permission ordered no equipment via Procurify Order. If any questions contact [facility] DME Provider at [phone]. 01/27/2025 6 Clicks Daily Activity OT Help [...] Guard Assist/Supervision 4 - Non = Modified [place]/Independent ASSESSMENT: Recommend further therapy services in a [...] NA = Not Assessed, I = Independent, GA = Modified Independent, Sup = Supervised, Set [...] Isauro Page MD Patient: Ely Hurtado Location: [place] [address]1 Reason for Consult: HPI Ely Hurtado is [...] hemoglobin was 6 prior to transferred to [facility]. She received 2 units of [...] excellent care from the nursing staff, and patient support specialist. Dictated using voice recognition software. 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 Whittaker or until AC restarted. [facility] 01-30-2025 Evaluation + Plan note [...] okay to resume anticoagulation after polyp biopsy [facility] 01-30-2025 Evaluation + Plan note [...] okay to resume anticoagulation after polyp biopsy [facility] 01-30-2025 Evaluation + Plan note [...] okay to resume anticoagulation after polyp biopsy [facility] 01-30-2025 Evaluation + Plan note [...] okay to resume anticoagulation after polyp biopsy [facility] 01-30-2025 Evaluation + Plan note Associated Problem(s): Hyperlipidemia, unspecified --chronic. stable. continue home statin [facility] 01-30-2025 Note Hospital Medicine Pr ogress Note Ely Hurtado Age [age] year old female [id number] AC8-704/2 Admitted 01/25/2025 12:28 PM Hospital Day: 6 Subjective HOSPITAL COURSE: Ely Hurtado is a 84 year old female admitted on 01/25/2025 with a history of HTN, HLD, DVT (Eliquis) transferred from [facility] for urgent vascular intervention for incidental [...] re-eval by PT/OT Floyd Odom DO [facility] 01-30-2025 History of Present illness Narrative Hospital Medicine Progress Note Ely Hurtado Age [age] year old female [id number] AC8-704/2 Admitted 01/25/2025 12:28 PM Hospital Day: [...] Ely Hurtado Age [age] year old female [id number] AC8-704/2 Admitted 01/25/2025 12:28 PM Hospital Day: [...] Emergency Contact: aliza hurtado, Aliza Hancock MD [facility] Medicine CRITICAL CARE ATTENDING PROGRESS NOTE (50) [...] of Hepatic A. Aneurysm Hemorrhoidal care #2 X RAY EQUIPMENT SERVICER stable Neurochecks #3CV Resolved hypotension VS&ECG monitoring [...] significant for good health sent in from [facility] with BRBPR after CT abdomen showed [...] Dispo back to [facility] Dr. Jose Rafael Magdaleno. Lyly [id number] bp#[id number] Images from the original note were not included. .[facility] Step Down Unit - Progress Note Patient: Ely Hurtado : 1940 Sex: female Room: [place] [address] Admission: 01/25/2025 Today: 01/29/2025 (Length of stay: 4 day(s)) HOSPITAL COURSE: Ely Hurtado is a 84 year old female admitted on 01/25/2025 with a PMH of anemia, rectal bleeding, history ov DVT, 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 Patient who currently resides at [facility] ([facility]) where she was found to have significant bright red blood in her stool following multiple episodes of diarrhea on the morning of 01/24. They were transferred to the [facility] ED later that day for further [...] DO PGY-2 Family Medicine Stepdown Unit Pager [phone]- offered patient to get up and [...] Pulmonary, Critical Care, & Sleep Medicine [facility] PIN [id number] [1] Social History Tobacco Use Smoking Status Not on file Smokeless Tobacco Not on file Images from the original note were not included. .[facility] Step Down Unit - Progress Note Patient: Ely Hurtado : 1940 Sex: female Room: [place] [address] Admission: 01/25/2025 Today: 01/28/2025 (Length of stay: 3 day(s)) HOSPITAL COURSE: Ely Hurtado is a 84 year old female admitted on 01/25/2025 with a PMH of anemia, rectal bleeding, history ov DVT, 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 Patient who currently resides at [facility] ([facility]) where she was found to have significant bright red blood in her stool following multiple episodes of diarrhea on the morning of 01/24. They were transferred to the [facility] ED later that day for further [...] DO PGY-2 Family Medicine Stepdown Unit Pager [phone] 01/27/25 1500 Assessment and Discharge Planning Evaluation READMISSION LESS THAN 30 DAYS No READMISSION RISK SCORE IS Rising Risk INTERVIEWED Chart Review COGNITIVE STATUS Oriented FUNCTIONAL STATUS PRIOR TO ADMISSION Ambulates with medical coordinator pesticide use (cane, walker, etc.);Independent with ADL's HAS ADVANCE [...] that the patient is a resident a [facility] ([phone]). CM left a message to inquire if Facility has SNF capabilities. CM to notifiy the facility if the patient is medically able to return. PT/OT recommend that pt go to a SNF when pt is medically ready to discharge. CM to follow up. ADDENDUM: CM received a return phone call from [facility] staff that states that they do have a SNF side to their facility. However they are not in [place] and they do not know the process of how to discharge the patient to SNF side instead of [place]. CM was give contact phone number of [phone]. LOWELL to follow up on 01/28/2025 during business hours. Breanna Wilder MSN, RN Inpatient Rn Surgical 7E/7W Cell benci-[phone] Desk [phone] Images from the original note were not [...] Pulmonary, Critical Care, & Sleep Medicine [facility] PIN [id number] [1] Social History Tobacco Use Smoking Status Not on file Smokeless Tobacco Not on file Images from the original note were not included. .[facility] Step Down Unit - Progress Note Patient: Ely Hurtado : 1940 Sex: female Room: [place] [address] Admission: 01/25/2025 Today: 01/27/2025 (Length of stay: 2 day(s)) HOSPITAL COURSE: Ely Hurtado is a 84 year old female admitted on 01/25/2025 with a PMH of anemia, rectal bleeding, history ov DVT, 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 Patient who currently resides at [facility] ([facility]) where she was found to have significant bright red blood in her stool following multiple episodes of diarrhea on the morning of 01/24. They were transferred to the [facility] ED later that day for further [...] MD PGY-1 Internal Medicine Stepdown Unit Pager [phone] Images from the original note were not [...] x 1 day. Presented to [facility]. Hgb decreased to 6.2. Received 2U [...] Pulmonary, Critical Care, & Sleep Medicine [facility] PIN [id number] [1] Social History Tobacco Use Smoking Status Not on file Smokeless Tobacco Not on file Images from the original note were not included. 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 Patient who currently resides at [facility] ([facility]) where she was found to have significant bright red blood in her stool following multiple episodes of diarrhea on the morning of 01/24. They were transferred to the [facility] ED later that day for further [...] MD PGY-1 Internal Medicine Stepdown Unit Pager [phone] documented in this encounter [facility] 01-29-2025 Evaluation + Plan note [...] is advised will need to restart Eliquis [facility] 01-29-2025 Evaluation + Plan note [...] is advised will need to restart Eliquis [facility] 01-29-2025 Evaluation + Plan note [...] is advised will need to restart Eliquis [facility] 01-29-2025 Evaluation + Plan note [...] is advised will need to restart Eliquis [facility] 01-29-2025 Evaluation + Plan note Associated Problem(s): 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 Whittaker or until Eliquis restarted. [facility] 01-29-2025 Evaluation + Plan note Associated Problem(s): Hyperlipidemia, unspecified --chronic. stable. continue home statin [facility] 01-29-2025 Note Hospital Medicine Pr ogress Note Ely Hurtado Age [age] year old female [id number] AC8-704/2 Admitted 01/25/2025 12:28 PM Hospital Day: 5 HOSPITAL COURSE: Ely Hurtado is a 84 year old female admitted on 01/25/2025 with a history of anemia, rectal bleeding, history of DVT (Eliquis), aneurysm of hepatic artery transferred from [facility] for urgent vascular intervention. Patient with [...] Emergency Contact: aliza hurtado, Aliza Hancock MD [facility] 01-29-2025 Note CRITICAL CARE ATTEND [...] of Hepatic A. Aneurysm Hemorrhoidal care #2 X RAY EQUIPMENT SERVICER stable Neurochecks #3CV Resolved hypotension VS AND [...] for good health sent in from [facility] SNF with BRBPR after CT abdomen [...] back to SNF Dr. Jose Rafael Desouza [id number] bp#[id number] [facility] 01-29-2025 Progress note Formatting of t his note is different from the original. Images from the original note were not included. . TRANSFER NOTE Patient: Ms. Ely Hurtado, an 84 year old (Full Code) Room: [place] [address] 1940 FROM Step down unit TO Medicine [...] They were transferred to the 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 Nelda James DO Family Medicine, PGY2 FM Pager: [phone] [facility] 01-29-2025 Note .[facility] Step Down Unit - Progress Note Patient: Ely Hurtado : 1940 Sex: female Room: [place] [address] Admission: 01/25/2025 Today: 01/29/2025 (Length of stay: 4 day(s)) HOSPITAL COURSE: Ely Hurtado is a 84 year old female admitted on 01/25/2025 with a PMH of anemia, rectal bleeding, history ov DVT, 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 Patient who currently resides at [facility] ([facility]) where she was found to have significant bright red blood in her stool following multiple episodes of diarrhea on the morning of 01/24. They were transferred to the [facility] ED later that day for further [...] of cholestasi (more content not included)... [facility] 01-28-2025 Note POST-PROCEDURE NOTE Procedure: Left Femoral Artery approach Abdominal Angiogram with Proper Hepatic Artery Coil Embolization Pre-operative Diagnosis: Proper Hepatic Artery Aneurysm Post-operative Diagnosis: Proper Hepatic Artery Aneurysm Attending: Anselmo Whittaker MD Book Retailer: Bessy Acuña MD A TIME OUT was [...] procedural details. Bessy Acuña MD Radiology [facility] 01-28-2025 Plan of care [...] decides. Family verbalized understanding. Nelda James DO [facility] 01-28-2025 Progress note Formatting of [...] from the medicare.gov compare site for SNF. [place] [facility] Choice was provided to the patient/patient guest relations representative. For SNF: RN/ to complete [employer]. Signature page placed on patient's chart for MD wong. [id number] initiated in [facility] Pt will require a pre-cert/LOC. SW/CM will follow up for choices. Referral sent to [facility] which is the sister SNF for [facility] CM will continue to follow Breanna Wilder MSN, RN Inpatient Rn Surgical 7E/7W Cell [phone] Desk [phone] [facility] 01-28-2025 Note Pre-Procedure H AND [...] Directives (Living will, health care power of patent attorney): none Patient Recent Code Status: Full Code Code Status For This Procedure: Full Code Patient does not have capacity to consent. Risk and benefits of the procedure were discussed with next of kin / POA. All questions answered. Lance Sandhu DO Radiology, PGY3 01/28/25 [1] No past medical history on file. 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 Patient who currently resides at [facility] ([facility]) where she was found to have significant bright red blood in her stool following multiple episodes of diarrhea on the morning of 01/24. They were transferred to the [facility] ED later that day for further [...] Regimen Senna (more content not included)... [facility] 01-28-2025 Consult note Formatting of th is note is different from the original. Images from the original note were not included. Dietitian vs DietaryTech: Dietary TechDiet Object Oriented Programmer Nutrition Screening Reason for visit: LOS 5 [...] up. Will continue to follow, Ava Hays, Seasonal Customer Service Associate Pager#[phone] Time spent on patient care: 15 minutes [1] No past medical history on file. [facility] 01-27-2025 Plan of care note I tried at least thrice to reach her son to update on her colonoscopy but with no avail. [facility] 01-27-2025 Note 01/27/25 1500 Assessment and Discharge Planning Evaluation READMISSION LESS THAN 30 DAYS No READMISSION RISK SCORE IS Rising Risk INTERVIEWED Chart Review COGNITIVE STATUS Oriented FUNCTIONAL STATUS PRIOR TO ADMISSION Ambulates with medical coordinator pesticide use (cane, walker, etc.);Independent with ADL's HAS ADVANCE [...] that the patient is a resident a [facility] ([phone]). CM left a message to inquire if Facility has SNF capabilities. CM to notifiy the facility if the patient is medically able to return. PT/OT recommend that pt go to a SNF when pt is medically ready to discharge. CM to follow up. ADDENDUM: CM received a return phone call from [facility] [place] staff that states that they do have a SNF side to their facility. However they are not in [place] and they do not know the process of how to discharge the patient to SNF side instead of [place]. CM was give contact phone number of [phone]. CM to follow up on 01/28/2025 during business hours. Breanna Wilder MSN, RN Inpatient Rn Surgical 7E/7W Cell crnuf-[phone] Desk Sskrh-[phone] [facility] 01-27-2025 Surgery Surgical operation note Ely Hurtado 84 year old Surgical Contact Serial Number: [id number] Location: ENDO ADD ON PROCEDURE Date: 01/27/2025 Small Business Director: Juan Parikh MD Attending:Adrien Caraballo MD [...] transillumination of right lower quadrant. Prep was Hawley Bowel Prep Right Colon: Entire colon seen well, Hawley Bowel Prep Transverse Colon: Entire colon seen well, Hawley Bowel Prep Left Colon:Entire colon seen well [...] + internal hemorrhoids Rectal bleeding (Primary Diagnosis) [176728] Unspecified right bundle-branch block [9630200] Abnormal electrocardiogram (ECG) (EKG) [[id number]] Abnormal electrocardiogram (ECG) (EKG) [9585091] ANATOMIC SPECIMEN: Yes SPECIMEN: ID Type Source [...] Caraballo MD Division of Gastroenterology & Hepatology [facility] 01-27-2025 History and physical note Ely Hurtado [id number] 01/27/2025 HISTORY & PHYSICAL: Patient's history with [...] sedation. Juan Parikh MD 01/27/2025 3:34 PM [facility] 01-27-2025 History and physical note Ely Patsy Hurtado [id number] 01/27/2025 HISTORY & PHYSICAL: Patient's history with [...] from the original note were not included. .[facility] Step Down Unit - H&P Patient: Ely Hurtado : 1940 Sex: female Room: [place] [address] Admission: 01/25/2025 Today: 01/25/2025 (Length of stay: 1 day(s)) HISTORY OF PRESENT ILLNESS: CHIEF COMPLAINT: No chief complaint on file. 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 Patient who currently resides at [facility] ([facility]) where she was found to have significant bright red blood in her stool following multiple episodes of diarrhea on the morning of 01/24. They were transferred to the [facility] ED later that day for further [...] Drug De-Escalation Dispo: [facility] Code Status: Full Code This plan is preliminary until finalized by an attending physician. Wilbert Pérez MD PGY-1 Internal Medicine Stepdown Unit Pager [phone] [1] No past medical history on file. [...] note Patient: Ely Hurtado : 1940 Location: [place] [address] Admission Date: 01/25/2025 Length of stay: 1 day(s) Ms. Ely Hurtado is a 84 year old female Data obtained by the EMR and corroborated by [facility] resident significant bright red blood [...] 01/25/2025 7:53 PM documented in this encounter [facility] 01-27-2025 Consult note Associated Order [...] currently resides at [facility] ([facility]) Diagnosis: Rectal Bleeding Hepatic [...] somewhere" Patient Identified Goal(s): find her walker MD UROLOGIST Status: questionable historian Mobility Status: Modified indep [...] currently resides at [facility] ([facility]) with staff assist OBJECTIVE: [...] Dep Max Mod Min CG CS DS GA I Set-Up Comment Supine to Sit x [...] With Patients permission ordered no equipment via [employer] Order. If any questions contact [facility] DME Provider at [phone]. 01/27/2025 6 Clicks Basic Mobility PT Difficulty [...] address. Recommend further therapy services in a Longterm Setting once medically cleared. Will continue to [...] NA = Not Assessed, I = Independent, GA = Modified Independent, Sup = Supervised, Set [...] [2] No past surgical history on file. [facility] 01-27-2025 Note PHYSICAL THERAPY ACU TE EVALUATION [...] currently resides at [facility] ([facility]) Diagnosis: Rectal Bleeding Hepatic [...] somewhere" Patient Identified Goal(s): find her walker MD UROLOGIST Status: questionable historian Mobility Status: Modified indep [...] currently resides at [facility] ([facility]) with staff assist OBJECTIVE: [...] Dep Max Mod Min CG CS DS GA I Set-Up Comment Supine to Sit x [...] With Patients permission ordered no equipment via [employer] Order. If any questions contact [facility] Provider at [phone]. 01/27/2025 6 Clicks Basic Mobility PT Difficulty [...] Clicks Score (more content not included)... [facility] 01-27-2025 Consult note Associated Order (s): [...] Patient Subjective: "My walker is somewhere in [place]" Patient Identified Goal(s): Return home Home Living Situation Per pt report: Lives in apartment w 0 LATESHA 0 steps to bed/ bathroom (walk in shower) Lives alone w son PRN assistance Equipment available: rollator, shower chair, grab bars Ind w ADL+ assist for IADLs [place] for functional mobility w rollator (-) Drive (-) Falls Per chart: pt resides at SNF ([facility]) with staff assist OBJECTIVE: Patient Identification: patient [...] Dep Max Mod Min CG CS DS GA I Set-Up Comment Feeding x x NPO Anticipate CS Grooming/Hygiene x x Anticipate seated Bathing:UB x Anticipate seated Bathing:LB x Anticipate seated Dressing:UB x Adjust hospital gown seated EOB Dressing: LB x Anticipate seated Toileting x x Anticipate CS for pericare and CGA for clothing management Transfers/Bed Mobility: Assistance Level Dep Max Mod Min CG CS DS GA I Set-Up Comment Toilet Transfers x Anticiapte [...] With Patients permission ordered no equipment via [employer] Order. If any questions contact [facility] DME Provider at [phone]. 01/27/2025 6 Clicks Daily Activity OT Help [...] Guard Assist/Supervision 4 - Non = Modified [place]/Independent ASSESSMENT: Recommend further therapy services in a [...] NA = Not Assessed, I = Independent, GA = Modified Independent, Sup = Supervised, Set up = Physical Assistance for Set-up Only, Min = Minimal Assistance, Mod = Moderate Assistance, Max = Max assistance; Dep = Dependent; AROM = Active Range of Motion;PROM=Passive Range of Motion; MMT = Manual Muscle Test; UB = Upper Body; LB = Lower Body [1] No past surgical history on file. [facility] 01-27-2025 Note OCCUPATIONAL THERAPY INITIAL [...] Patient Subjective: "My walker is somewhere in [place]" Patient Identified Goal(s): Return home Home Living Situation Per pt report: Lives in apartment w 0 LATESHA 0 steps to bed/ bathroom (walk in shower) Lives alone w son PRN assistance Equipment available: rollator, shower chair, grab bars Ind w ADL+ assist for IADLs GA for functional mobility w rollator (-) Drive [...] Dep Max Mod Min CG CS DS GA I Set-Up Comment Feeding x x NPO Anticipate CS Grooming/Hygiene x x Anticipate seated Bathing:UB x Anticipate seated Bathing:LB x Anticipate seated Dressing:UB x Adjust hospital gown seated EOB Dressing: LB x Anticipate seated Toileting x x Anticipate CS for pericare and CGA for clothing management Transfers/Bed Mobility: Assistance Level Dep Max Mod Min CG CS DS GA I Set-Up Comment Toilet Transfers x Anticiapte [...] call light in reach. Chair alarm intact. [place] belt in place. DME: With Patients permission ordered no equipment via [employer] Order. If any questions contact [facility] DME Provider at [phone]. 01/27/2025 6 Clicks Daily Activity OT Help [...] Guard Assist/Supervision 4 - Non = Modified [place]/Independent ASSESSMENT: Recommend further therapy services in a [...] with M (more content not included)... 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 Patient who currently resides at [facility] ([facility]) where she was found to have significant bright red blood in her stool following multiple episodes of diarrhea on the morning of 01/24. They were transferred to the [facility] ED later that day for further [...] physician. N (more content not included)... [facility] 01-26-2025 Consult note Associated Order (s): IP GASTROENTEROLOGY CONSULT Images from the original note were not included. Department of Gastroenterology and Hepatology Consult H&P Note GI Attending Physician: Dr. Isauro Pgae MD Patient: Ely Hurtado Location: [place] [address]1 Reason for Consult: HPI Ely Hurtado is [...] hemoglobin was 6 prior to transferred to [facility]. She received 2 units of [...] [place] MD, MS Gastroenterology Fellow. Consult Pager [phone] Discussed with GI attending, Dr. Adrien Caraballo MD Primary team updated yes. Thank you for involving us in the care of this patient. I appreciate the excellent care from the nursing staff, and patient support specialist. Dictated using voice recognition software. [...] Staff Gastoenterologist Division of Gastroenterology & Hepatology [facility] [1] No past medical history on file. [2] No past surgical history on file. [3] [facility] Work Phone: 01-26-2025 Hospital Note [...] trial of re-initiation of anticoagulation before discharge. 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 Patient who currently resides at [facility] ([facility]) where she was found to have significant bright red blood in her stool following multiple episodes of diarrhea on the morning of 01/24. They were transferred to the [facility] ED later that day for further [...] MD PGY-1 Internal Medicine Stepdown Unit Pager [phone] [facility] 01-25-2025 Consult note Formatting of th [...] Garrison DO at 01/28/2025 4:46 PM EDT [facility] Work Phone: 01-25-2025 History and physical note Images from the original note were not included. .[facility] Step Down Unit - H&P Patient: Ely Hurtado : 1940 Sex: female Room: [place] [address] Admission: 01/25/2025 Today: 01/25/2025 (Length of stay: 1 day(s)) HISTORY OF PRESENT ILLNESS: CHIEF COMPLAINT: No chief complaint on file. 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 Patient who currently resides at [facility] ([facility]) where she was found to have significant bright red blood in her stool following multiple episodes of diarrhea on the morning of 01/24. They were transferred to the [facility] ED later that day for further [...] MD PGY-1 Internal Medicine Stepdown Unit Pager [phone] [1] No past medical history on file. [2] No past surgical history on file. [3] No family history on file. [4] [5] No current facility-administered medications on file prior to encounter. No current outpatient medications on file prior to encounter. [6] Not on File [facility] 01-25-2025 History and physical note Images from the original note were not included. Division of Pulmonary, Critical Care and Sleep Medicine Critical Care Initial Evaluation note Patient: Ely Hurtado : 1940 Location: [place] [address] Admission Date: 01/25/2025 Length of stay: 1 day(s) Ms. Ely Hurtado is a 84 year old female Data obtained by the EMR and corroborated by [facility] resident significant bright red blood [...] MD Critical Care Attending 01/25/2025 7:53 PM [employer] Work Phone: 01-25-2025 Note Division of Pulmonar y, Critical Care and Sleep Medicine Critical Care Initial Evaluation note Patient: Ely Hurtado : 1940 Location: [place] [address] Admission Date: 01/25/2025 Length of stay: 1 day(s) Ms. Ely Hurtado is a 84 year old female Data obtained by the EMR and corroborated by me [place] resident significant bright red blood in her [...] Critical Care Attending 01/25/2025 7:53 PM [facility] [employer] [facility] 01-25-2025 Telephone encounter Note Images from the original note were not included. I was called by [facility] regarding a transfer from [employer]. That facility is requesting transfer because Services [...] Keyon Fallon DO Division of Hospital Medicine, [facility] Pager#: [phone] [facility] 01-25-2025 Miscellaneous Notes Images from the original note were not included. I was called by [facility] regarding a transfer from [employer]. That facility is requesting transfer because Services [...] Keyon Fallon DO Division of Hospital Medicine, [facility] Pager#: [phone] documented in this encounter [facility] 01-25-2025 Radiology Diagnostic study note [facility] Imaging Services [address] [place], [place] [id number] CTA Abd/Pelvis W/WO Contrast MR#: [id number] Acct: [id number] Name: ELY HURTADO Rep #: [id number] : 1940 F 84 From: Bob Garza MD PCP: Dianna Guido MD Status: REG ER Study:CTA Abd/Pelvis W/WO Contrast Date of Ex am: 01/24/25 Exam# [id number] Ordering Dr: Power Borges DO PROCEDURE: CTA [...] provider Power Borges 01/24/2025 at 10:50 p.m. STAGE TECHNICIAN. Reading Location: [id number] CC: Dr. Power Borges DO; Dianna Guido MD ~ Bleach Range Operator: Signed [facility] 06-25-2023 Progress note Note Date/Time June 25, 2023 2:29pm [facility] [address] [place] [address] Progress Note - Wound Care 06/25/23 1425 MR#: [id number] Acct: [id number] Name: ELY HURTADO Rep #:[id number] : 1940 83 From: Andie Magdaleno PM PCP: Dr. Karen Lang MD Status:R EG RCR Location: History of Present Illness Date of Service: 06/25/23 Chief Complaint: Nonhealing ulcer left lower extremity History of Wound: This is a 79-year-old white female known to me previously who was recently discharged from the [facility] in November 2018 who presents to [...] Recorded Date Recorded By Document 06/11/23 13:11 [employer] 06/11/23 13:19 Document 06/18/23 13:58 [employer] 06/18/23 14:03 Document 06/25/23 14:01 Desktop 06/25/23 14:09 06/11/23 06/18/23 06/25/23 13:11 13:58 14:01 - Today's Visit Information Type of service Follow-up Visit Follow-up Visit Follow-up Visit (Physician/SENIOR CASE MANAGER (Physician/SENIOR CASE MANAGER (Physician/SENIOR CASE MANAGER ) ) ) Arrival Mode Ambulatory, Ambulatory, [...] Date Recorded By Document 06/11/23 13:11 KW [employer] 06/11/23 13:19 KW Document 06/18/23 13:58 [employer] 06/18/23 14:03 KW Document 06/25/23 14:01 [employer] 06/25/23 14:09 06/11/23 06/18/23 06/25/23 13:11 13:58 [...] -Expiration Date 02/08/28 02/08/28 -Product Lot Number [id number] -Percent Used 100 100 -Lot number of Saline Used [id number] -Bleeding Controlled with Pressure Pressure -Treatment Response [...] Desktop 06/11/23 13:47 KW Document 06/18/23 14:43 [facility] Desktop 06/18/23 14:43 [facility] Document 06/25/23 14:19 KW Desktop 06/25/23 [...] of Care Provided Yes Yes Facility Type [facility] Care Facility Assessment/Plan Assessment/Plan (1) Non-pressure ulcer [...] (if applicable): CC: ~ Signed [facility] Work Phone: 1(268) 922-208601-10-2024 Progress note Author Andie Bernal [facility] June 18, 2023 3:30pm Note Date/Time June 18, 2023 3 :30pm [facility] [address] [place] [address] Progress Note - Wound Care 06/18/23 1528 MR#: [id number] Acct: [id number] Name: ELY HURTADO Rep #:[id number] : 1940 83 From: Andie DE LA TORRE PCP: Dr. Karen Lang MD Status:R ISABELLA ENRIQUEZ Location: History of Present Illness Date of Service: 06/18/23 Chief Complaint: Nonhealing ulcer left lower extremity History of Wound: This is a 79-year-old white female known to me previously who was recently discharged from the [facility] in November 2018 who presents to [...] applied to the left lateral full-thickness ulceration qphs282% use. Third application. The graft site was [...] applied to the left lateral full-thickness ulceration fzou282% use. Third application. The graft site was [...] Type of service Follow-up Visit Follow-up Visit (Physician/SENIOR CASE MANAGER (Physician/SENIOR CASE MANAGER ) ) Arrival Mode Ambulatory, Ambulatory, Walker [...] Date Recorded By Document 06/11/23 13:11 KW [employer] 06/11/23 13:19 KW Document 06/18/23 13:58 KW [employer] 06/18/23 14:03 KW 06/11/23 06/18/23 13:11 13:58 [...] -Expiration Date 02/08/28 02/08/28 -Product Lot Number [id number] -Percent Used 100 100 -Lot number of Saline Used [id number] -Bleeding Controlled with Pressure Pressure -Treatment Response [...] Summary of Care Provided Yes Facility Type [facility] Care Facility Assessment/Plan Assessment/Plan (1) Non-pressure ulcer [...] applied to the left lateral full-thickness ulceration olqe356% use. Third application. The graft site was [...] (if applicable): CC: ~ Signed [facility] Work Phone: 1(840) 365-291101-03-2024 Progress note Author Andie Bernal [facility] June 11, 2023 1:52pm Note Date/Time June 11, 2023 1: 52pm [facility] [address] [place] [address] Progress Note - Wound Care 06/11/23 1350 MR#: [id number] Acct: [id number] Name: ELY HURTADO Rep #:[id number] : 1940 83 From: Andie Magdaleno PM PCP: Dr. Karen Lang MD Status:R EG RCR Location: History of Present Illness Date of Service: 06/11/23 Chief Complaint: Nonhealing ulcer left lower extremity History of Wound: This is a 79-year-old white female known to me previously who was recently discharged from the [facility] in November 2018 who presents to [...] applied to the left lateral full-thickness ulceration votd287% use. Second application. The graft site was [...] applied to the left lateral full-thickness ulceration mqbk509% use. Second application. The graft site was [...] Recorded Date Recorded By Document 06/11/23 13:11 [employer] 06/11/23 13:19 06/11/23 13:11 - Today's Visit Information Type of service Follow-up Visit (Physician/SENIOR CASE MANAGER ) Arrival Mode Ambulatory, Walker Patient Identification [...] Recorded Date Recorded By Document 06/11/23 13:11 [employer] 06/11/23 13:19 06/11/23 13:11 Wound Center Nurse [...] Disc -Expiration Date 02/08/28 -Product Lot Number [id number] -Percent Used 100 -Lot number of Saline Used [id number] -Bleeding Controlled with Pressure -Treatment Response Procedure [...] applied to the left lateral full-thickness ulceration gopx794% use. Second application. The graft site was [...] (if applicable): CC: ~ Signed [facility] Work Phone: 1(226) 156-935912-27-2023 Progress note Author Andie Bernal [facility] June 04, 2023 1:36pm Note Date/Time June 04, 2023 1:36pm [facility] [address] [place] [address] Progress Note - Wound Care 06/04/23 1333 MR#: [id number] Acct: [id number] Name: ELY HURTADO Rep #:[id number] : 1940 83 From: Andie Magdaleno PM PCP: Dr. Karen Lang MD Status:R EG RCR Location: History of Present Illness Date of Service: 06/04/23 Chief Complaint: Nonhealing ulcer left lower extremity History of Wound: This is a 79-year-old white female known to me previously who was recently discharged from the [facility] in November 2018 who presents to [...] applied to the left lateral full-thickness ulceration dlub861% use. First application. The graft site was [...] applied to the left lateral full-thickness ulceration bttj796% use. First application. The graft site was [...] service Initial Visit Follow-up Visit Follow-up Visit (Physician/SENIOR CASE MANAGER (Physician/SENIOR CASE MANAGER ) ) Arrival Mode Ambulatory, Ambulatory, Ambulatory, [...] than 3 Seconds Communication Assessment Preferred language Gabonese Able to Read Yes Able to Write [...] in Ability to Perform Denies Any Declines Culture/Yazidism/Account Associate Cultural/Yazidism Needs that may affect No Treatment Plan Would you allow our hospital brassiere cup mold cutter to No meet you for the purpose of spiritual/ emotional support? Account Associate to contact place of zoroastrianism No WC - Nurse 1 - General [...] (1-33%) Small (1-33%) Small (1-33%) -Granulation Quality L[place] Red [place] -Slough/Fibrin Yes -Necrosis Amt Large (67-100%) Large [...] Date Recorded By Document 05/21/23 14:24 DL [id number] 05/21/23 14:25 DL Document 05/28/23 13:23 [facility] Desktop 05/28/23 13:24 [facility] 05/21/23 05/28/23 14:24 13:23 Wound Care [...] to apply santyl when available. Facility Type [facility] Care [facility] Facility Facility Orders Sent Yes Assessment/Plan [...] applied to the left lateral full-thickness ulceration hvge420% use. First application. The graft site was [...] (if applicable): CC: ~ Signed [facility] Work Phone: 1(158) 732-376412-20-2023 Progress note Author Andie Bernal [facility] May 28, 2023 1:22pm Note Date/Time May 28, 2023 1:[address] [facility] [address] [place] [address] Progress Note - Wound Care 05/28/23 1317 MR#: [id number] Acct: [id number] Name: ELY HURTADO Rep #:[id number] : 1940 83 From: Andie Magdaleno PM PCP: [facility]. Karen Lang MD [facility] Location: History of Present Illness Date of Service: 05/28/23 Chief Complaint: Nonhealing ulcer left lower extremity History of Wound: This is a 79-year-old white female known to me previously who was recently discharged from the [facility] in November 2018 who presents to [...] has been getting dressing changes at her care home facility through nursing staff with Santyl and [...] Type of service Initial Visit Follow-up Visit (Physician/SENIOR CASE MANAGER ) Arrival Mode Ambulatory, Ambulatory, Walker Walker [...] than 3 Seconds Communication Assessment Preferred language Gabonese Able to Read Yes Able to Write [...] in Ability to Perform Denies Any Declines Culture/Yazidism/Account Associate Cultural/Yazidism Needs that may affect No Treatment Plan Would you allow our hospital brassiere cup mold cutter to No meet you for the purpose of spiritual/ emotional support? Account Associate to contact place of zoroastrianism No WC - Nurse 1 - General [...] Amt Small (1-33%) Small (1-33%) -Granulation Quality [place] Red -Slough/Fibrin Yes -Necrosis Amt Large (67-100%) [...] Date Recorded By Document 05/21/23 14:24 DL [id number] 05/21/23 14:25 DL 05/21/23 14:24 Wound Care [...] to apply santyl when available. 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 She will continue to take the doxycycline [...] (if applicable): CC: ~ Signed [facility] Work Phone: 1(272) 391-281412-13-2023 Progress note Author Andie [facility] May 21, 2023 3:47pm Note Date/Time May 21, 2023 3:41pm [facility] [address] [place] [address] Progress Note - Wound Care 05/21/23 1535 MR#: [id number] Acct: [id number] Name: ELY HURTADO Rep #:[id number] : 1940 83 From: Andie DE LA TORRE PCP: Dr. Karen Lang MD Status:R EG RCR Location: History of Present Illness Date of Service: 05/21/23 Chief Complaint: Nonhealing ulcer left lower extremity History of Wound: This is a 79-year-old white female known to me previously who was recently discharged from the [facility] in November 2018 who presents to [...] than 3 Seconds Communication Assessment Preferred language Gabonese Able to Read Yes Able to Write [...] in Ability to Perform Denies Any Declines Culture/Yazidism/Account Associate Cultural/Yazidism Needs that may affect No Treatment Plan Would you allow our hospital brassiere cup mold cutter to No meet you for the purpose of spiritual/ emotional support? Account Associate to contact place of zoroastrianism No WC - Nurse 1 - General [...] Attached -Granulation Amt Small (1-33%) -Granulation Quality [place] -Necrosis Amt Large (67-100%) -Necrotic Tissue Type [...] Recorded Date Recorded By Document 05/21/23 14:05 [employer] 05/21/23 14:06 05/21/23 14:05 Wound Center Nurse [...] Date Recorded By Document 05/21/23 14:24 DL [id number] 05/21/23 14:25 DL 05/21/23 14:24 Wound Care [...] to apply santyl when available. Facility Type [facility] Care Facility Orders Sent Yes Assessment/Plan Assessment/Plan [...] (if applicable): CC: ~ Signed [facility] Work Phone: evaluation noteNo assessment information available [facility] Work Phone: evaluation note* Diagnosis Onset Date Resolution Status Non-pressure ulcer of left l ower extremity with fat layer exposed acute Pain in left leg acute PVD (peripheral vascular disease) chronic [facility] Work Phone: Evaluation note* Diagnosis Onset Date Resolution Status Non-pressure ulcer of left l ower extremity with fat layer exposed acute Pain in left leg acute PVD (peripheral vascular disease) chronic Non-pressure ulcer of left l ower extremity with fat layer exposed acute PVD (peripheral vascular disease) chronic 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 Procedures N/A Alicia [place]ava [place] [address] Phone: tel: fax: [employer] [address] [place] [address] Phone: tel: Referral ID Status Reason Start Date Expiration Date Visits Re quested Visits Authorized [id number] 3 3 [facility] Summary Purpose Family History No Family History [...] Will Yes February 14 9:15pm Power of Curing Finisher No February 14, 2019 9:15pm Advance Directive Response Recorded Date/ Time Living Will Yes February 14 8:15pm Power of Curing Finisher No February 14, 2019 8:15pm Advance Directive Response Recorded Date/ Time Do you have a Healthcare Power of Curing Finisher? No January 24, 2025 9:15pm Date Activated Date Inactivated Comments 01/25/2025 12:24 PM Date Activated Date Inactivated Comments 01/25/2025 12:24 PM 01/31/2025 7:26 PM Question Answer Comments Documentation of decision pr ocess for this code status: Patient and surrogate unable or unavailable to discuss. Defaulting to the previously documented code status. Chief Complaint and Reason for Visit Chief Complaint JAIL LAB WOR K Chief Complaint JAIL LAB WOR K JAIL LAB WORK Chief Complaint JAIL LABWORK JAIL LAB WORK Chief Complaint JAIL LAB WOR K JAIL LABWORK LABWORK LABWORK Chief Complaint JAIL LABWORK LABWORK LABWORK [facility] WORK Chief Complaint LABWORK [facility]AIL [facility] WORK JAIL LAB WORK [facility]AIL [facility] WORK Chief Complaint LABWORK JAIL LAB WORK JAIL LAB WORK JAIL LAB WORK JAIL LAB WORK ARTERIAL EXAM Reason for Visit Non-pressure ulcer o f left lower extremity with fat layer exposed Pain in left leg PVD (peripheral vascular disease) Chief Complaint LABWORK JAIL LAB WORK JAIL LAB WORK JAIL LAB WORK JAIL LABWORK JAIL LAB WORK ARTERIAL EXAM ARTERIAL EXAM Reason for Visit Non-pressure ulcer o f left lower extremity with fat layer exposed Pain in left leg PVD (peripheral vascular disease) 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 PVD (peripheral vascular disease) Chief Complaint JAIL LAB WOR K JAIL LAB WORK JAIL LAB WORK JAIL LABWORK JAIL LAB WORK ARTERIAL EXAM ARTERIAL EXAM Reason for Visit Non-pressure ulcer o f left lower extremity with fat layer exposed Pain in left leg PVD (peripheral vascular disease) 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 PVD (peripheral vascular disease) Chief Complaint Admit Date JAIL LAB WORK October 04, 2024 4 :00am JAIL LAB WORK November 08, 2024 4:0 0am Chief Complaint Admit Date JAIL LAB WORK October 04, 2024 4 :00am JAIL LAB WORK November 08, 2024 4:0 0am gi January 24, 2025 9: 15pm Additional Source Comments INFORMATION SOURCE (unrecogn ized section and content) DATE CREATED AUTHOR 09/18/2020 Antwan Fort[employer] [facility] DATE CREATED AUTHOR AUTHOR'S ORGANIZ ATION 03/27/2025 [employer] DATE CREATED AUTHOR AUTHOR'S ORGANIZ ATION 2025 [facility] (unrecognized section and [...] MD Primary Care Provider Active Dr. Dianna VUAGHN MD Attending Provider Active Team Status: Inactive [...] Iliana Dean LPN) 08 (Given - Provider: Karnie Sánchez RN) hydrophilic wound dressing ([employer]) external [...] BE BASED ON THE PRIMARY CLINICAL RECORDS. [employer] provides no warranty or guarantee of the accuracy or completeness of information in this document.
[2025-05-18 08:38] LABS: Hematocrit 28.7 % (37-47); Hemoglobin 7.6 g/dL (12.0-15.0); Mean Corp Hgb Conc 26.5 g/dL (32-36); Mean Corpuscular Volume 65.1 fL (81-99); Mean Platelet Vol. 9.2 fl (6.2-12.0); POSITIVE MORPHOLOGY YES; Platelet Count 364 K/mm3 (150-450); RBC Distribution Width CV 20.3 % (11.6-14.6); RBC Distribution Width SD 46.4 fl (35.1-43.9); Red Blood Count 4.41 M/mm3 (4.2-5.4); White Blood Count 6.8 K/mm3 (4.4-11.0)
[2025-05-18 08:46] LABS: Scan Indicated on CBC? Y/N YES- FLAGS NOTED
== END ==
LOC: OLS.SWAL 05:00
PROVIDERS: PCP Internal Medicine; Visit Provider Internal Medicine
DX: D64.9 Anemia, unspecified (principal)
CPT/HCPCS: 36415; 85027